=== PATIENT | male | born 1965 | race Caucasian/White ===

== ENCOUNTER 2020-03-05 11:17 | Emergency (ER) | payer MEDICARE, MEDICAID, SELFPAY ==
[2020-03-05 11:40] VITALS: BP 127/87; BP 130/90; PULSE 82; PULSE 88; RESP 18; TEMP 37.2; O2SAT 16; O2SAT 98; BMI 24.4
--- NOTE | 2020-03-05 11:59 | ED_ITS ---
HPI - Abdominal Pain General Chief Complaint: Abdominal Pain Stated Complaint: LUQ PAIN SINCE LAST NIGHT Time Seen by Provider: 03/05/20 11:57 Source: patient Mode of arrival: ambulatory History of Present Illness HPI narrative: 54 y/o male with history of of BPH s/p laser ablation in the past presenting with recurrent urinary retention Here for similar complaints 03/03 and 02/27 and required straight cath. Seen by Urology on Monday - had 300 cc in his bladder. Started on Flomax MD elicited complaint: abdominal pain Onset (ago): day(s) Related Data Allergies Allergy/AdvReac Type Severity Reaction Status Date / Time No Known Allergies Allergy Unknown UNKNOWN Unverified 02/20/20 15:14 [NO KNOWN ALLERGIES] Hayfebrol Allergy Unknown Uncoded 01/28/20 00:00 unsure of seafood allergy Allergy Unknown Uncoded 01/28/20 00:00 Review of Systems Constitutional: Denies fever(s) Genitourinary: Reports oliguria, Reports difficulty urinating, Denies genital lesions, Denies genital pain, Denies dysuria and Denies flank pain Physical Exam Vital Signs and I&O and Narrative: Vital Signs and I&O: Vital Signs Temp 98.9 F 03/05/20 11:40 Pulse 82 03/05/20 11:40 Resp 18 03/05/20 11:40 BP 127/87 03/05/20 11:40 Pulse Ox 98 03/05/20 11:40 Intake & Output 03/04/20 03/05/20 03/05/20 18:59 06:59 18:59 Weight 72.91 kg Body Mass Index 24.4 Const: General: cooperative, healthy appearing and anxious Nutritional Appearance: average body habitus HENMT: Head: Yes normal to inspection Ears: hearing grossly normal bilaterally Eyes: General: appearance normal, both eyes and all related structures Resp: Auscultation: clear to auscultation bilaterally Cardio: Rate: regular rate Rhythm: regular rhythm GI: Inspection: Yes normal to inspection Palpation (GI): Soft to palpation and Tenderness to palpation present (GI) suprapubicly Auscultation: normal bowel sounds Rectal Exam - Male: Yes deferred : Male General Exam: Yes normal external exam Course Course Hospital Course: bladder scan performed and was 367cc. he reports he no longer has straight cath equiptment at home. will d/w case management Reevaluation(s) Reevaluation #1: Patient able to void on his own. UA pending. Case management reviewed the case and spoke with Urology & staff at [facility] - patient does in fact have self-catheterization supplies at home. He reports the catheters are too small. CM arranged to have several different catheters delivered tomorrow. Time: 13:57 Reevaluation #2: UA negative. Stable for d/c. Time: 14:41 MDM - Abdominal Pain MDM Narrative Medical decision making narrative: known urinary retention, will r/o UTI with UA. psych meds likely contributing to retention as well Medical Records Attestation: I reviewed the patient's medical records. Lab Data Labs: Lab Results 03/05/20 Range/Units 13:37 Urine Color YELLOW Urine Appearance CLEAR Urine pH 7.0 (5.0-8.0) Ur Specific [place] 1.015 (1.005-1.025) Urine Protein NEG (NEG-TRACE) MG/DL Urine Glucose (UA) NEG (NEG) MG/DL Urine Ketones NEG (NEG) MG/DL Urine Blood NEG (NEG) Urine Nitrite NEG (NEG) Ur Leukocyte Esterase NEG (NEG) Discharge Plan Discharge Clinical Impression: Benign prostatic hyperplasia with urinary retention Patient Disposition: Home, Self-Care Instructions: Urinary Retention in Men (ED), Enlarged Prostate (BPH) (ED) Additional Instructions: Follow up with your Urologist Continue taking Flomax each evening. [facility] Past Medical History Attestation statement: The following information was validated with the patient. Medical History Anxiety Bipolar 1 disorder Enlarged prostate Mood disorder Right knee injury Thought disorder Social History Social History Alcohol intake: never Smoking Status: Light tobacco smoker Use of substances other than those prescribed or required for medical reasons: No Advance Directives: No Advance Directives Information Provided: Yes
[2020-03-05] MEDS: Lidocaine HCl Viscous 2 % 15 ML SOLUTION MUCOUS MEM (12:58)
[2020-03-05] MEDS: Magnesium Hydrox/Alum Hydrox 30 ML ORAL.SUSP PO (12:58)
[2020-03-05] MEDS: Omeprazole 40 MG CAPSULE.DR PO (12:58)
--- NOTE | 2020-03-05 13:59 | MHC.CM.ED ---
Recevied case management consult from [facility] Guido. Patient is from a detention. Came to ER due to abd pain. Has a history of urinary retention. Told provider he has no catheters at home. T/W spoke with Nori at the detention via telephone at [phone]. Nori stated patient states the catheters he has are too small. They have not been able to reach out to supply company to get this fixed. T/w spoke with Bessie at Urology office. Patient's last documented catheter company was [employer]. Spoke with Juan, one of their customer services reps. Juan stated patient's case was closed in August. However, she is going to overnight mail some supply samples to see which product works best for him. Their company will also follow up with patient tomorrow. Lata aware. Continue to monitor for d/c needs.
[2020-03-05 14:35] LABS: Glucose Urine UA NEG (NEG); Leukocyte Esterase Urine NEG (NEG); Nitrite Urine NEG (NEG); Specific Gravity - Urine 1.015 (1.005-1.025); Urine Blood NEG (NEG); Urine Ketones NEG (NEG); Urine Protein NEG (NEG-TRACE)
[2020-03-05 14:37] LABS: Appearance Urine CLEAR; Color Urine YELLOW
== END 2020-03-05 15:03 | disposition left against medical advice (07) ==
PROVIDERS: Physician Assistant; Emergency Provider Emergency Medicine; PCP Internal Medicine
DX: N40.1 Benign prostatic hyperplasia with lower urinary tract symptoms (principal); R33.8 Other retention of urine; Z79.899 Other long term (current) drug therapy
CPT/HCPCS: 51798; 81003; 99284

== ENCOUNTER 2020-03-09 01:20 | Emergency (ER) | payer MEDICARE, MEDICAID, SELFPAY ==
[2020-03-09 01:25] VITALS: BP 123/84; PULSE 84; RESP 16; TEMP 36.7; O2SAT 97; BMI 25.0
--- NOTE | 2020-03-09 02:13 | ED.MALEGU ---
HPI - Male Genitourinary General Chief complaint: Urogenital-Male Stated complaint: URINARY PROBLEM Time Seen by Provider: 03/09/20 01:49 Source: patient History of Present Illness HPI Narrative: This is a 54-year-old male who presents with urinary retention, chronically, but states that he ran out of his catheters which he will not get until tomorrow. He states he last voided earlier in the evening. Otherwise, he denies any fevers, chills, nausea, vomiting. Related Data Allergies Allergy/AdvReac Type Severity Reaction Status Date / Time No Known Allergies Allergy Unknown UNKNOWN Unverified 02/20/20 15:14 [NO KNOWN ALLERGIES] Hayfebrol Allergy Unknown Uncoded 01/28/20 00:00 unsure of seafood allergy Allergy Unknown Uncoded 01/28/20 00:00 Review of Systems Review of Systems: Pertinent positives and negatives as stated in HPI 10 point review of systems otherwise negative. PMFSH Past Medical History Source: nursing notes reviewed Medical History Anxiety Bipolar 1 disorder Enlarged prostate Mood disorder Right knee injury Thought disorder Social History Social History Alcohol intake: never Smoking Status: Current every day smoker Use of substances other than those prescribed or required for medical reasons: No Advance Directives: No Physical Exam Vital Signs and I&O and Narrative: Vital Signs and I&O: Vital Signs Temp 98.0 F 03/09/20 01:25 Pulse 84 03/09/20 01:25 Resp 18 03/09/20 02:18 BP 128/81 03/09/20 02:18 Pulse Ox 97 03/09/20 02:18 Intake & Output 03/08/20 03/08/20 03/09/20 06:59 18:59 06:59 Weight 74.843 kg Body Mass Index 25.0 VITAL SIGNS: Reviewed. GENERAL: Well developed, well nourished, in no acute distress. HEAD: Normocephalic/atraumatic, Posterior oropharynx was without edema, erythema or exudate. EYES: PERRLA, Pupils <>, EOMI intact without pain, no nystagmus/pallor/icterus noted EARS: Ext canals without abnormality, TMs non-bulging and non-erythematous NOSE: Nares patent bilateral OROPHARYNX: no oral lesions noted, posterior pharynx clear and non-erythematous without noted tonsillar enlargement/erythema/exudates NECK: Supple, no adenopathy LUNGS: Normal breath sounds. No adventitious sounds or accessory muscle use. SpO2<> CARDIOVASCULAR: Regular rate and rhythm without noted murmurs, no JVD or lower extremity edema. ABDOMEN: Soft, non-tender, non-distended with bowel sounds. No rigidity. No guarding. No palpable masses or hernias noted MUSCULOSKELETAL: No tenderness, deformities, or effusions noted on gross inspection. EXTREMITIES: No cyanosis, clubbing or edema. SKIN: Inspection of the skin reveals no rashes, ulcerations, jaundice, pallor, or petechiae. NEUROLOGIC: Alert and oriented x 3. Strength and sensation to light touch were grossly intact x 4. Course Course Hospital Course: This is a 54-year-old male with history and clinical presentation consistent with chronic urinary retention and currently being followed by Urology. Patient ran out of his catheters and on bladder scan is noted to have almost 600 cc and was successfully straight cathed with resolution of symptoms. Patient states he will be getting his replacement catheters tomorrow and has a follow-up appointment with Urology. [facility] - Male Genitourinary Lab Data Labs: Lab Results 03/09/20 Range/Units 02:47 Urine Color YELLOW Urine Appearance CLEAR Urine pH 7.5 (5.0-8.0) Ur Specific [place] 1.015 (1.005-1.025) Urine Protein NEG (NEG-TRACE) MG/DL Urine Glucose (UA) NEG (NEG) MG/DL Urine Ketones NEG (NEG) MG/DL Urine Blood NEG (NEG) Urine Nitrite NEG (NEG) Ur Leukocyte Esterase NEG (NEG) Discharge Plan Discharge Clinical Impression: Acute urinary retention Patient Disposition: Home, Self-Care Instructions: Enlarged Prostate (BPH) (ED), Urinary Retention in Men (ED) Additional Instructions: 1. resume all home medications as prescribed. 2. continue to self catheter as is routine for you. 3. follow-up with urology as scheduled. The patient and/or family acknowledge understanding of results (as applicable), diagnosis, treatment plan, need for follow up, and symptoms that should prompt a return to the emergency room. Referrals: Dk Rodriguez MD [Primary Care Provider] - 2 days (Further evaluation of urinary retention)
[2020-03-09 02:18] VITALS: BP 128/81; RESP 18; O2SAT 97
--- NOTE | 2020-03-09 02:27 | PC.NURSE ---
PT ARRIVES A&OX3, PT ALERT, RESPIRATIONS EASY, N/L. SKIN W/D. PT C/O IM UNABLE TO CATH HIMSELF D/T RUNNING OUT OF SELF-CATH KITS WHICH WILL ARRIVE TOMORROW. IN ROOM FOR EVAL. BLADDER SCAN RESULTED APPROX 600ML OF URINE IN BLADDER.
--- NOTE | 2020-03-09 02:59 | PC.NURSE ---
pt states im scared to do by myself i might hurt myself. Pt tolerated straight cath well. approx 600ML CLEAR YELLOW URINE IN URINE BAG. PT GETTING DRESSED. PT DENIES ANY COMPLAINTS AT THIS TIME. WILL CONTINUE TO MONITOR PT.
[2020-03-09 03:04] LABS: Glucose Urine UA NEG (NEG); Leukocyte Esterase Urine NEG (NEG); Nitrite Urine NEG (NEG); PH 7.5 (5.0-8.0); Specific Gravity - Urine 1.015 (1.005-1.025); Urine Blood NEG (NEG); Urine Ketones NEG (NEG); Urine Protein NEG (NEG-TRACE)
[2020-03-09 03:05] LABS: Appearance Urine CLEAR; Color Urine YELLOW; UACC Culture Trigger NO
== END 2020-03-09 04:08 | disposition home or self-care (01) ==
PROVIDERS: Emergency Provider Student in an Organized Health Care Education/Training Program; PCP Internal Medicine
DX: R33.9 Retention of urine, unspecified (principal); F17.200 Nicotine dependence, unspecified, uncomplicated; Z71.6 Tobacco abuse counseling; Z79.899 Other long term (current) drug therapy
CPT/HCPCS: 51798; 81003; 99283; 99284

== ENCOUNTER → 2020-03-17 14:29 | Outpatient (BNVA) | payer MEDICARE, MEDICAID, SELFPAY | PROVIDERS: PCP Internal Medicine; Visit Provider Urology | DX: N40.1 Benign prostatic hyperplasia with lower urinary tract symptoms (principal); N13.8 Other obstructive and reflux uropathy; R33.8 Other retention of urine; N31.9 Neuromuscular dysfunction of bladder, unspecified; Z79.899 Other long term (current) drug therapy | CPT/HCPCS: 51798; 99213 ==

== ENCOUNTER 2020-03-18 20:26 | Emergency (ER) | payer MEDICARE, MEDICAID, SELFPAY | END 2020-03-18 22:30 | disposition left against medical advice (07) | PROVIDERS: Emergency Provider Internal Medicine; PCP Internal Medicine | DX: F43.0 Acute stress reaction (principal) | CPT/HCPCS: 99281 ==

== ENCOUNTER 2020-03-19 10:52 | Emergency (ER) | payer MEDICARE, MEDICAID, SELFPAY ==
[2020-03-19 10:56] VITALS: BP 117/76; BP 124/86; PULSE 75; PULSE 81; RESP 20; TEMP 37; O2SAT 96; O2SAT 98; BMI 24.4
[2020-03-19 12:52] LABS: Hematocrit 41.2 % (42-52); Hemoglobin 13.9 g/dl (14.0-18.0); Mean Corpuscular HGB Conc 33.7 g/dl (31.0-36.0); Mean Corpuscular Hemoglobin 31.8 pg (27.0-33.0); Mean Corpuscular Volume 94.3 fL (80-98); Mean Platelet Volume 8.8 fL (9.4-12.4); Platelet Count 204 X10*3/uL (160-400); Red Blood Count 4.37 X10*6/uL (4.60-5.80); Red Cell Distribution Width 12.8 % (11.0-16.0)
[2020-03-19 12:59] LABS: Glucose Urine UA NEG (NEG); Leukocyte Esterase Urine NEG (NEG); Nitrite Urine NEG (NEG); PH 6.5 (5.0-8.0); Urine Blood NEG (NEG); Urine Ketones NEG (NEG); Urine Protein NEG (NEG-TRACE)
[2020-03-19 13:01] LABS: Appearance Urine CLEAR; Color Urine YELLOW
[2020-03-19 13:10] VITALS: BP 121/78; PULSE 70; RESP 18; TEMP 36.4; O2SAT 100
[2020-03-19 13:19] LABS: Anion Gap 10 (12-20); Blood Urea Nitrogen 13 mg/dL (9-16); Carbon Dioxide 28 mmol/L (22-29); Chloride 103 mmol/L (96-108); Creatinine Clr Calc Pharmacy 106.1; Estimated Glomerular Filt Rate > 60; Glucose Random 104 mg/dL (60-115); Sodium 136 mmol/L (135-145)
--- NOTE | 2020-03-19 13:46 | ED_ITS ---
HPI - General Adult General Chief complaint: General Medical Stated complaint: CRISIS Time Seen by Provider: 03/19/20 12:02 Source: patient Mode of arrival: ambulatory History of Present Illness HPI narrative: unable to urinate probably, patient has a chronic history of prostate enlargement, patient has been having self-catheterization patient think that he has a wrong size catheterization, did not catheterized himself today feeling distension of the abdomen. Patient is asking for Santos. Onset (ago): day(s) (2) Related Data Allergies Allergy/AdvReac Type Severity Reaction Status Date / Time No Known Allergies Allergy Unknown UNKNOWN Unverified 02/20/20 15:14 [NO KNOWN ALLERGIES] Hayfebrol Allergy Unknown Uncoded 01/28/20 00:00 unsure of seafood allergy Allergy Unknown Uncoded 01/28/20 00:00 Review of Systems Review of Systems: Yes all other systems are reviewed and are negative Constitutional: Constitutional: Reports as per HPI Eyes: Eyes: Reports no additional eye complaints ENT: Reports system reviewed and no additional complaints, except as documented Cardiovascular: Cardiovascular: Reports no additional cardiovascular complaints Respiratory: Respiratory: Reports no additional respiratory complaints Gastrointestinal: Gastrointestinal: Reports no additional gastrointestinal complaints Genitourinary: Genitourinary: Reports difficulty urinating Musculoskeletal: Musculoskeletal: Reports no additional musculoskeletal c omplaints Neurologic: Reports system reviewed and no additional complaints, except as documented and Reports Abnormal speech present Psychiatric: Psychiatric: Reports no additional psychiatric complaints Endocrine: Endocrine: Reports no additional endocrine complaints COUNT INCLUDES THE [facility] Past Medical History COUNT INCLUDES THE [facility] Narrative: Unremarkable. Medical History Anxiety Bipolar 1 disorder Enlarged prostate Mood disorder Right knee injury Thought disorder Social History Social History Alcohol intake: never Smoking Status: Current every day smoker Smoked in Last 30 Days: Yes Use of substances other than those prescribed or required for medical reasons: No Advance Directives: No Advance Directives Information Provided: No Physical Exam Vital Signs: Vital Signs: Vital Signs Temp Pulse Resp BP Pulse Ox 03/19/20 13:10 97.5 F 70 18 121/78 100 03/19/20 10:56 98.6 F 75 20 117/76 96 Body Mass Index 24.4 Const: General: cooperative, healthy appearing and no acute distress Orientation/consciousness: oriented to person HENMT: Head: Yes normal to inspection Ears: hearing grossly normal bilaterally General nose exam: Normal external nose present Face and sinus: Yes normal facial exam Mouth: Normal oral and palatal mucosa present Eyes: General: appearance normal, both eyes and all related structures Neck: Neck: Yes normal visual inspection Chest: Chest palpation & inspection: normal inspection of the chest Resp: Effort & Inspection: normal respiratory effort Cardio: Jugular venous distension: no JVD GI: Palpation (GI): Soft to palpation, not firm, nontender and no guarding Back/Spine/Pelvis: Thoracic/Lumbar Spine: thoracic and lumbar spine normal to inspection Skin: General skin exam: no rashes or lesions noted Neuro: General: oriented to person Cranial nerves: Yes CN's II-XII intact bilaterally Cognition (Neuro): normal cognition Speech: Abnormal speech present Gait exam (Neuro): Normal gait present Motor exam (neuro): 5/5 motor strength present throughout Extrem: General: Yes normal to inspection Course Course Course Narrative: 54-year-old male with prostate enlargement, with chronic self-catheterization, presented today unable to catheterize himself because he has the wrong size self catheter, patient is asking for Santos catheter go home with. Santos catheter was placed in the emergency department, earlier of clear jaylan yellow urine was drained. Reevaluation(s) Reevaluation #1: Patient was re-evaluated, feeling better, no abdominal distension. Time: 13:58 Medical Decision Making Lab Data Result diagrams: 03/19/20 12:43 03/19/20 12:43 Labs: Lab Results 03/19/20 03/19/20 03/19/20 Range/Units 12:43 12:43 12:43 WBC 6.0 (4.8-10.8) X10*3/uL RBC 4.37 L (4.60-5.80) X10*6/uL Hgb 13.9 L (14.0-18.0) g/dl Hct 41.2 L (42-52) % MCV 94.3 (80-98) fL MCH 31.8 (27.0-33.0) pg MCHC 33.7 (31.0-36.0) g/dl RDW 12.8 (11.0-16.0) % Plt Count 204 (160-400) X10*3/uL MPV 8.8 L (9.4-12.4) fL Absolute Nucleated RBC 0.000 (0.0-0.012) X10*3/uL Nucleated RBC % (auto) 0.0 (0.0-0.2) /100WBC Sodium 136 (135-145) mmol/L Potassium 5.0 (3.3-5.1) mmol/l Chloride 103 (96-108) mmol/L Carbon Dioxide 28 (22-29) mmol/L Anion Gap 10 L (12-20) BUN 13 (9-16) mg/dL Creatinine 0.77 (0.5-1.4) mg/dL Estim Creat Clear Calc 106.1 Estimated GFR > 60 Random Glucose 104 (60-115) mg/dL Calcium 9.0 (8.4-10.2) mg/dL Urine Color YELLOW Urine Appearance CLEAR Urine pH 6.5 (5.0-8.0) Ur Specific [place] 1.010 (1.005-1.025) Urine Protein NEG (NEG-TRACE) MG/DL Urine Glucose (UA) NEG (NEG) MG/DL Urine Ketones NEG (NEG) MG/DL Urine Blood NEG (NEG) Urine Nitrite NEG (NEG) Ur Leukocyte Esterase NEG (NEG) Discharge Plan Discharge Clinical Impression: Neurogenic bladder, BPH with obstruction/lower urinary tract symptoms Patient Disposition: Home, Self-Care Instructions: Urinary Retention in Men (ED) Referrals: Lex Sánchez III, MD [Physician] - 1 week
== END 2020-03-19 14:07 | disposition home or self-care (01) ==
PROVIDERS: Emergency Provider Emergency Medicine
DX: N31.9 Neuromuscular dysfunction of bladder, unspecified (principal); N40.1 Benign prostatic hyperplasia with lower urinary tract symptoms; N13.8 Other obstructive and reflux uropathy; F17.200 Nicotine dependence, unspecified, uncomplicated; Z71.6 Tobacco abuse counseling
CPT/HCPCS: 36415; 80048; 81003; 85027; 99284

== ENCOUNTER 2020-03-19 20:56 | Emergency (ER) | payer MEDICARE, MEDICAID, SELFPAY ==
[2020-03-19 21:07] VITALS: BP 128/86; PULSE 88; RESP 16; TEMP 37.1; O2SAT 97; BMI 24.3
[2020-03-19 22:00] VITALS: BP 129/88; PULSE 75; RESP 16; TEMP 36.8; O2SAT 99
--- NOTE | 2020-03-19 22:07 | ED_ITS ---
HPI - Male Genitourinary General Chief complaint: Urogenital-Male Stated complaint: CATHETER REMOVAL Time Seen by Provider: 03/19/20 22:07 Source: patient Mode of arrival: ambulatory Limitations: no limitations History of Present Illness HPI Narrative: Patient had a schafer placed earlier because his bladder is dilated. patient has been self catheterize for 5 years Onset (ago): year(s) Related Data Allergies Allergy/AdvReac Type Severity Reaction Status Date / Time No Known Allergies Allergy Unknown UNKNOWN Unverified 02/20/20 15:14 [NO KNOWN ALLERGIES] Hayfebrol Allergy Unknown Uncoded 01/28/20 00:00 unsure of seafood allergy Allergy Unknown Uncoded 01/28/20 00:00 Review of Systems Constitutional: Constitutional: Reports no additional constitutional complaints Eyes: Eyes: Reports no additional eye complaints ENT: Denies dizziness Cardiovascular: Cardiovascular: Reports no additional cardiovascular complaints Respiratory: Respiratory: Reports as per HPI Gastrointestinal: Gastrointestinal: Reports no additional gastrointestinal complaints Genitourinary: Comments: chronic bladder problems Musculoskeletal: Musculoskeletal: Reports no additional musculoskeletal complaints Integumentary/Breasts: Skin/Breast: Denies rash Neurologic: Reports system reviewed and no additional complaints, except as documented, Denies dizziness and Denies Sensory deficit (Neuro) Psychiatric: Psychiatric: Denies anxiety PMFSH Past Medical History Medical History Anxiety Bipolar 1 disorder Enlarged prostate Mood disorder Right knee injury Thought disorder Social History Social History Alcohol intake: never Smoking Status: Current every day smoker Advance Directives: No Advance Directives Information Provided: Yes Physical Exam Vital Signs: Vital Signs: Vital Signs Temp Pulse Resp BP Pulse Ox 03/19/20 21:07 98.8 F 88 16 128/86 97 Body Mass Index 24.3 Const: General: healthy appearing Nutritional Appearance: average body gaxiola bitus Orientation/consciousness: oriented to person and patient oriented x3 Limitations: no limitations HENMT: Head: Yes normal to inspection Ears: external ears normal General nose exam: Normal external nose present Mouth: Normal oral and palatal mucosa present and oropharynx normal Throat: Yes posterior oropharynx normal Eyes: General: appearance normal, both eyes and all related structures Neck: Other: supple Neck: Yes normal visual inspection Chest: Chest palpation & inspection: normal inspection of the chest Resp: Auscultation: clear to auscultation bilaterally Cardio: Jugular venous distension: no JVD Rate: regular rate Rhythm: regular rhythm Heart sounds: S1 normal heart sound present and S2 normal heart sound present GI: Inspection: Yes normal to inspection Palpation (GI): Soft to palpation, nontender and No hepatosplenomegaly present Auscultation: normal bowel sounds : Other: patient with schafer in place wants it removed General: Yes no CVA tenderness Back/Spine/Pelvis: Back: no CVA tenderness Skin: General skin exam: no rashes or lesions noted Neuro: General: oriented to person and patient oriented x3 Cranial nerves: Yes CN's II-XII intact bilaterally Motor exam (neuro): 5/5 motor strength present throughout Sensory Exam: No Sensory deficit (Neuro) Extrem: General: Yes normal to inspection Psych: Appearance: grossly normal Course Course Course Narrative: patient wants his catheter removed Discharge Plan Discharge Clinical Impression: BPH with obstruction/lower urinary tract symptoms Patient Disposition: Home, Self-Care Additional Instructions: May start self catheterizing Referrals: Dk Rodriguez MD [Primary Care Provider] - 2 days
--- NOTE | 2020-03-19 22:53 | PC.NURSE ---
LEG BAG REMOVED FROM PATIENT BY THIS PCT PER RN EVA ,OUT PUT 700 ML
--- NOTE | 2020-03-19 22:56 | PC.NURSE ---
MASON REMOVED. PT TOLERATED WELL. VITALS WNL./ DC
== END 2020-03-19 22:56 | disposition home or self-care (01) ==
PROVIDERS: Emergency Provider Emergency Medicine; PCP Internal Medicine
DX: N40.1 Benign prostatic hyperplasia with lower urinary tract symptoms (principal); Z46.6 Encounter for fitting and adjustment of urinary device
CPT/HCPCS: 36415; 80048; 81003; 85027; 99283; 99284

== ENCOUNTER 2020-03-23 21:52 | Emergency (ER) | payer MEDICARE, MEDICAID, SELFPAY ==
[2020-03-23 21:55] VITALS: BP 124/74; PULSE 94; RESP 20; TEMP 37.3; O2SAT 97; BMI 24.3
--- NOTE | 2020-03-23 22:28 | ED.MALEGU ---
HPI - Male Genitourinary General Chief complaint: Urogenital-Male Stated complaint: cath problem Time Seen by Provider: 03/23/20 22:11 Source: patient Mode of arrival: ambulatory Limitations: no limitations History of Present Illness HPI Narrative: This is a 54-year-old male who presents with complaints not receiving his regularly scheduled catheters for use in self catheterization. He comes in for requesting assistance with this and denies any associated fevers, chills, nausea, vomiting, penile discharge. Related Data Allergies Allergy/AdvReac Type Severity Reaction Status Date / Time No Known Allergies Allergy Unknown UNKNOWN Unverified 02/20/20 15:14 [NO KNOWN ALLERGIES] Hayfebrol Allergy Unknown Uncoded 01/28/20 00:00 unsure of seafood allergy Allergy Unknown Uncoded 01/28/20 00:00 Review of Systems Review of Systems: Pertinent positives and negatives as stated in HPI 10 point review of systems is otherwise negative. PMFSH Past Medical History Source: nursing notes reviewed Medical History Anxiety Bipolar 1 disorder Enlarged prostate Mood disorder Right knee injury Thought disorder Social History Social History Alcohol intake: never Smoking Status: Current every day smoker Advance Directives: No Advance Directives Information Provided: Yes Physical Exam Vital Signs: Vital Signs: Vital Signs Temp Pulse Resp BP Pulse Ox 03/23/20 21:55 99.1 F 94 20 124/74 97 Body Mass Index 24.3 VITAL SIGNS: Reviewed. GENERAL: Well developed, well nourished, in no acute distress. HEAD: Normocephalic/atraumatic, EYES: PERRLA, EOMI intact without pain, no nystagmus/pallor/icterus noted EARS: Ext canals without abnormality, TMs non-bulging and non-erythematous NOSE: Nares patent bilateral OROPHARYNX: no oral lesions noted, posterior pharynx clear and non-erythematous without noted tonsillar enlargement/erythema/exudates NECK: Supple, no adenopathy LUNGS: Normal breath sounds. No adventitious sounds or accessory muscle use. SpO2<97%> CARDIOVASCULAR: Regular rate and rhythm without noted murmurs, no JVD or lower extremity edema. ABDOMEN: Soft, non-tender, non-distended with bowel sounds. No rigidity. No guarding. No palpable masses or hernias noted MUSCULOSKELETAL: No tenderness, deformities, or effusions noted on gross inspection. EXTREMITIES: No cyanosis, clubbing or edema. SKIN: Inspection of the skin reveals no rashes, ulcerations, jaundice, pallor, or petechiae. NEUROLOGIC: Alert and oriented x 4. Strength and sensation to light touch were grossly intact x 4. Course Course Course Narrative: This is a 54-year-old male with history and clinical presentation consistent with having run out of necessary equipment for self catheterization and on bladder scan was found to have 170 cc which is safe for discharge. Patient will be provided with necessary catheters until his arrive tomorrow. This was discussed with him at bedside and he is agreeable for the following plan Discharge Plan Discharge Clinical Impression: Neurogenic bladder Patient Disposition: Home, Self-Care Instructions: Urinary Retention in Men (ED), Enlarged Prostate (BPH) (ED) Additional Instructions: The patient and/or family acknowledge understanding of results (as applicable), diagnosis, treatment plan, need for follow up, and symptoms that should prompt a return to the emergency room. Referrals: Physician,Unknown [Primary Care Provider] - 2 days
== END 2020-03-23 23:14 | disposition home or self-care (01) ==
PROVIDERS: Emergency Provider Student in an Organized Health Care Education/Training Program
DX: N31.9 Neuromuscular dysfunction of bladder, unspecified (principal)
CPT/HCPCS: 51798; 99283

== ENCOUNTER 2020-03-28 02:16 | Emergency (ER) | payer MEDICARE, MEDICAID, SELFPAY ==
[2020-03-28 02:26] VITALS: BP 107/68; PULSE 75; RESP 18; TEMP 36; O2SAT 96; BMI 24.0
[2020-03-28 04:17] VITALS: BP 110/65; PULSE 70; RESP 16; TEMP 36.8; O2SAT 96
--- NOTE | 2020-03-28 04:25 | ED_ITS ---
HPI - Anxiety General Chief Complaint: Anxiety Stated Complaint: ANXIETY Time Seen by Provider: 03/28/20 03:43 Source: patient Mode of arrival: ambulatory Limitations: no limitations History of Present Illness HPI narrative: this is a 54-year-old male well known to our ED staff, patient has a long history of anxiety disorder, patient had verbal argument with the housing staff so patient decided to come to the hospital. Patient declined any SI or HI or hallucination at this point. MD complaint: anxiety Related Data Previous Rx's Medication Instructions Recorded bethanechol chloride 50 mg tablet 50 mg PO TID 30 Days #90 tab 03/27/20 Allergies Allergy/AdvReac Type Severity Reaction Status Date / Time No Known Allergies Allergy Unknown UNKNOWN Unverified 02/20/20 15:14 [NO KNOWN ALLERGIES] Hayfebrol Allergy Unknown Uncoded 01/28/20 00:00 unsure of seafood allergy Allergy Unknown Uncoded 01/28/20 00:00 Review of Systems Review of Systems: All other systems are reviewed and are negative Constitutional: Reports as per HPI and Reports no additional constitutional complaints Eyes: Reports as per HPI and Reports no additional eye complaints Reports system reviewed and no additional complaints, except as documented Cardiovascular: Reports as per HPI and Reports no additional cardiovascular complaints Respiratory: Reports as per HPI and Reports no additional respiratory complaints Gastrointestinal: Reports as per HPI and Reports no additional gastrointestinal complaints Genitourinary: Reports no additional female genitourinary complaints Musculoskeletal: Reports no additional musculoskeletal complaints Skin/Breast: Reports system reviewed and no additional complaints, except as docu Psychiatric: Reports no additional psychiatric complaints Endocrine: Reports no additional endocrine complaints Hematologic/Lymphatic: Reports no additional hematologic/lymphatic complaints Allergic/Immunologic: Reports no additional allergic/immunologic complaints Reports system reviewed and no additional complaints, except as documented and Reports Abnormal speech present [facility] Past Medical History Medical History Anxiety Bipolar 1 disorder Enlarged prostate Mood disorder Right knee injury Thought disorder Social History Social History Alcohol intake: never Smoking Status: Current every day smoker Advance Directives: No Advance Directives Information Provided: No Physical Exam Vital Signs: Vital Signs: Vital Signs Temp Pulse Resp BP Pulse Ox 03/28/20 04:17 98.3 F 70 16 110/65 96 03/28/20 02:26 96.8 F 75 18 107/68 96 Body Mass Index 24.0 vital signs have been reviewed as normal and appeared to be correct. Blood pressure normal. Heart rate normal. Respiration rate normal. Temperature normal. Oxygen saturation normal. Appearance: Alert. Oriented X3. No acute distress. Head: Normal external exam. Normocephalic. Atraumatic. No Villeda signs noted. No raccoon eyes noted Eyes: PERRLA. EOMI. Conjunctiva and sclera normal. Eyelids normal. ENT: EAC normal. TM's Normal. Pharynx normal. Uvula midline. Moist mucous membranes. No trismus noted. No drooling noted. No muffled voice noted. Neck: Normal inspection. Neck supple. FROM. No adenopathy. Thyroid Normal. No meningeal signs. No neck mass noted. CVS: Normal heart rate and rhythm. Heart sound normal. No murmurs noted. Pulses normal throughout. Respiratory: No respiratory distress. Painless inspiration. Breath sounds normal. No wheezes/rales/rhonchi noted. Chest nontender. No accessory muscle usage noted or decreased air movement noted. Abdomen: Soft and nontender. Bowel sounds normal in all 4 quadrants. No distention noted. No organomegaly noted. No visible injury noted. Back: No CVA tenderness. Full range of motion noted. Skin: Skin warm and dry. Normal skin color. Normal skin turgor. No rashes/lesions/lacerations noted. Extremities: No lower extremity edema. Extremities exhibit normal range of motion. Extremities nontender. Neuro: Oriented X 3. No motor deficit. No sensory deficit. Reflexes normal. MDM - Anxiety MDM Narrative Medical decision making narrative: Assessment and plan. This is a 54-year-old male with history of anxiety presented with anxiety, patient now with calm, and stable to be discharged home. Discharge Plan Discharge Clinical Impression: Anxiety Patient Disposition: Home, Self-Care Instructions: Anxiety (ED) Prescriptions: No Action bethanechol chloride 50 mg tablet 50 mg PO TID 30 Days Qty: 90 RF: 1 Referrals: Dk Rodriguez MD [Primary Care Provider] - 2 days
== END 2020-03-28 06:05 | disposition home or self-care (01) ==
PROVIDERS: Emergency Provider Emergency Medicine; PCP Internal Medicine
DX: F41.1 Generalized anxiety disorder (principal); F43.0 Acute stress reaction; F17.200 Nicotine dependence, unspecified, uncomplicated; Z71.6 Tobacco abuse counseling; Z79.899 Other long term (current) drug therapy
CPT/HCPCS: 99283

== ENCOUNTER 2020-03-30 13:24 | Outpatient (REF) | payer MEDICARE, MEDICAID, SELFPAY | END 2020-03-30 13:25 | disposition home or self-care (01) | LOC: HO.LAB 13:24 | PROVIDERS: PCP Internal Medicine; Visit Provider Internal Medicine | DX: Z20.828 Contact with and (suspected) exposure to other viral communicable diseases (principal) | CPT/HCPCS: 87635 ==

== ENCOUNTER 2020-04-04 23:17 | Emergency (ER) | payer MEDICARE, MEDICAID, SELFPAY ==
[2020-04-04 23:29] VITALS: BP 150/90; PULSE 91; RESP 16; TEMP 36.8; O2SAT 99; BMI 24.3
--- NOTE | 2020-04-04 23:56 | ED.MALEGU ---
HPI - Male Genitourinary General Chief complaint: General Medical Stated complaint: Problem urinaring Time Seen by Provider: 04/04/20 23:31 Source: patient Mode of arrival: ambulatory Limitations: no limitations History of Present Illness HPI Narrative: This is a 54-year-old male who presents with recurrent issues of urinary retention and currently treats with self catheterization and was recently evaluated by urology on 03/17. At that time it appears that patient was started on bethanechol and instructed to continue self catheterization. The patient denies any associated fevers, chills, but is having suprapubic discomfort and states that his last self catheterization was earlier this morning. Related Data Previous Rx's Medication Instructions Recorded bethanechol chloride 50 mg tablet 50 mg PO TID 30 Days #90 tab 03/27/20 varenicline 1 mg tablet 1 mg PO BID #56 tab 04/03/20 Allergies Allergy/AdvReac Type Severity Reaction Status Date / Time No Known Allergies Allergy Unknown UNKNOWN Verified 04/04/20 23:28 [NO KNOWN ALLERGIES] Hayfebrol Allergy Unknown Unknown Uncoded 04/04/20 23:28 unsure of seafood allergy Allergy Unknown Unknown Uncoded 04/04/20 23:28 Review of Systems Review of Systems: Pertinent positives and negatives as stated in HPI 10 point review of systems is otherwise negative. PMFSH Past Medical History Source: nursing notes reviewed Medical History Anxiety Bipolar 1 disorder Enlarged prostate Mood disorder Right knee injury Thought disorder Social History Social History Alcohol intake: current Alcohol intake frequency: 0-2 drinks per day Alcohol type: beer and wine Smoking Status: Never smoker Use of substances other than those prescribed or required for medical reasons: No Advance Directives: No Physical Exam Vital Signs: Vital Signs: Vital Signs Temp Pulse Resp BP Pulse Ox 04/04/20 23:29 98.3 F 91 16 150/90 H 99 Body Mass Index 24.3 VITAL SIGNS: Reviewed. GENERAL: Well developed, well nourished, in no acute distress. HEAD: Normocephalic/atraumatic, EYES: PERRLA, EOMI intact without pain, no nystagmus/pallor/icterus noted EARS: Ext canals without abnormality, TMs non-bulging and non-erythematous NOSE: Nares patent bilateral OROPHARYNX: no oral lesions noted, posterior pharynx clear and non-erythematous without noted tonsillar enlargement/erythema/exudates NECK: Supple, no adenopathy LUNGS: Normal breath sounds. No adventitious sounds or accessory muscle use. SpO2<99> CARDIOVASCULAR: Regular rate and rhythm without noted murmurs, no JVD or lower extremity edema. ABDOMEN: Soft, non-tender, non-distended with bowel sounds. No rigidity. No guarding. No palpable masses or hernias noted MUSCULOSKELETAL: No tenderness, deformities, or effusions noted on gross inspection. EXTREMITIES: No cyanosis, clubbing or edema. SKIN: Inspection of the skin reveals no rashes, ulcerations, jaundice, pallor, or petechiae. NEUROLOGIC: Alert and oriented x 4. Strength and sensation to light touch were grossly intact x 4. Course Course Course Narrative: This is a 54-year-old male with history and clinical presentation consistent with BPH requiring self catheterization. On bladder scan he was found to have > 999. patient self catheterized and a urine sample will be sent. PVR was then obtained and found to be significant for 100 cc. Plan and findings were discussed with the patient at bedside and he understands that he will need to continue to self catheterize every 6-8 hours while he is awake and follow-up with the Urology office on Monday. Discharge Plan Discharge Clinical Impression: BPH with obstruction/lower urinary tract symptoms, Neurogenic bladder Patient Disposition: Home, Self-Care Instructions: Enlarged Prostate (BPH) (ED) Additional Instructions: 1. Please self catheterize every 6-8 hours while awake. 2. You will need to contact the urology office on Monday to set up a follow-up appointment for persistent symptoms. 3. Continue with all home medications as prescribed The patient and/or family acknowledge understanding of results (as applicable), diagnosis, treatment plan, need for follow up, and symptoms that should prompt a return to the emergency room. Prescriptions: No Action bethanechol chloride 50 mg tablet 50 mg PO TID 30 Days Qty: 90 RF: 1 varenicline [Chantix] 1 mg tablet 1 mg PO BID Qty: 56 RF: 0 Referrals: Dk Rodriguez MD [Primary Care Provider] - 2 days ( needs follow-up for persistent BPH and lower urinary tract problems requiring self catheterization) Lex Sánchez III, MD [Physician] - 2 days ( Patient continues to have significant urinary difficulties and is requesting follow-up appointment.)
--- NOTE | 2020-04-05 00:01 | PC.NURSE ---
Pt bladder scanned for over 999ml per [employer] pt straight cathed self, urine sample collected.
[2020-04-05 00:33] LABS: Glucose Urine UA NEG (NEG); Leukocyte Esterase Urine NEG (NEG); Nitrite Urine NEG (NEG); Specific Gravity - Urine 1.015 (1.005-1.025); Urine Blood NEG (NEG); Urine Ketones NEG (NEG); Urine Protein NEG (NEG-TRACE)
[2020-04-05 00:35] LABS: Appearance Urine CLEAR; Color Urine YELLOW
== END 2020-04-05 00:43 | disposition home or self-care (01) ==
PROVIDERS: Emergency Provider Student in an Organized Health Care Education/Training Program; PCP Internal Medicine
DX: N40.1 Benign prostatic hyperplasia with lower urinary tract symptoms (principal); R33.8 Other retention of urine; N31.9 Neuromuscular dysfunction of bladder, unspecified; Z79.899 Other long term (current) drug therapy
CPT/HCPCS: 51798; 81003; 99283; 99284

== ENCOUNTER 2020-04-08 11:01 | Outpatient (REF) | payer MEDICARE, MEDICAID, SELFPAY ==
[2020-04-08 11:52] LABS: MANUAL DIFF FLAG NO
[2020-04-08 11:54] LABS: Basophils Absolute Auto 0.1 X10*3/uL (0.0-0.2); Basophils Percent Auto 0.7 % (0-2); Eosinophils Absolute Auto 0.1 X10*3/uL (0.0-0.4); Eosinophils Percent Auto 0.5 % (0-4); Hematocrit 46.4 % (42-52); Hemoglobin 15.4 g/dl (14.0-18.0); Imm Gran Abs Auto 0.03 X10*3/uL (0.00-0.03); Imm Gran Pct Auto 0.3 % (0.0-0.4); Lymphocytes Absolute Auto 1.7 X10*3/uL (1.2-4.9); Lymphocytes Percent Auto 17.2 % (20-40); Mean Corpuscular HGB Conc 33.2 g/dl (31.0-36.0); Mean Corpuscular Hemoglobin 31.2 pg (27.0-33.0); Mean Corpuscular Volume 94.1 fL (80-98); Mean Platelet Volume 9.2 fL (9.4-12.4); Monocytes Absolute Auto 0.9 X10*3/uL (0.1-1.2); Monocytes Percent Auto 9.3 % (2-11); Neutrophils Absolute Auto 7.2 X10*3/uL (2.0-8.3); Platelet Count 232 X10*3/uL (160-400); Red Blood Count 4.93 X10*6/uL (4.60-5.80)
[2020-04-08 12:25] LABS: Alanine Aminotransferase 31 U/L (0-40); Albumin Level 4.4 g/dL (3.5-5.0); Alkaline Phosphatase 73 U/L (39-117); Anion Gap 13 (12-20); Aspartate Amino Transferase 27 U/L (5-37); Bilirubin Total 0.4 mg/dL (0.0-1.0); Blood Urea Nitrogen 14 mg/dL (9-16); Calcium 9.1 mg/dL (8.4-10.2); Carbon Dioxide 26 mmol/L (22-29); Chloride 103 mmol/L (96-108); Cholesterol 182 mg/dL; Estimated Glomerular Filt Rate > 60; Glucose Fasting 104 mg/dL (60-99); HDL Cholesterol 60 mg/dL; LDL Cholesterol Calculated 110 mg/dl; Potassium 4.8 mmol/l (3.3-5.1); Sodium 137 mmol/L (135-145); Total Protein 7.1 g/dL (6.5-8.0); Triglycerides 61 mg/dL
[2020-04-08 13:08] LABS: Glucose Urine UA NEG (NEG); Leukocyte Esterase Urine NEG (NEG); Nitrite Urine NEG (NEG); Urine Blood NEG (NEG); Urine Ketones NEG (NEG); Urine Protein NEG (NEG-TRACE)
[2020-04-08 13:10] LABS: Appearance Urine CLEAR; Color Urine YELLOW; UACC Culture Trigger NO
[2020-04-08 13:31] LABS: Free T4 (Free Thyroxine) 0.99 ng/dL (0.71-1.85)
== END 2020-04-08 11:02 | disposition home or self-care (01) ==
LOC: HO.LAB 11:01
PROVIDERS: PCP Internal Medicine; Visit Provider Internal Medicine
DX: Z00.00 Encounter for general adult medical examination without abnormal findings (principal); F17.200 Nicotine dependence, unspecified, uncomplicated; N40.1 Benign prostatic hyperplasia with lower urinary tract symptoms; E78.00 Pure hypercholesterolemia, unspecified; N31.9 Neuromuscular dysfunction of bladder, unspecified
CPT/HCPCS: 36415; 80053; 80061; 81003; 84439; 84443; 85025

== ENCOUNTER 2020-04-09 22:24 | Emergency (ER) | payer MEDICARE, MEDICAID, SELFPAY | END 2020-04-09 23:41 | disposition left against medical advice (07) | PROVIDERS: Emergency Provider Student in an Organized Health Care Education/Training Program; PCP Internal Medicine | DX: Z04.9 Encounter for examination and observation for unspecified reason (principal) ==

== ENCOUNTER 2020-04-11 18:23 | Emergency (ER) | payer MEDICARE, MEDICAID, SELFPAY | END 2020-04-11 19:24 | disposition left against medical advice (07) | PROVIDERS: Emergency Provider Emergency Medicine; PCP Internal Medicine | DX: F41.1 Generalized anxiety disorder (principal); F43.0 Acute stress reaction | CPT/HCPCS: 99281 ==

== ENCOUNTER 2020-04-16 12:59 | Emergency (ER) | payer MEDICARE, MEDICAID, SELFPAY ==
[2020-04-16 13:04] VITALS: BP 120/68; BP 138/80; PULSE 81; PULSE 89; RESP 18; TEMP 36.7; O2SAT 96; O2SAT 98; BMI 24.7
[2020-04-16 13:57] LABS: Glucose Urine UA NEG (NEG); Leukocyte Esterase Urine NEG (NEG); Nitrite Urine NEG (NEG); Specific Gravity - Urine 1.015 (1.005-1.025); Urine Blood NEG (NEG); Urine Ketones NEG (NEG); Urine Protein NEG (NEG-TRACE)
[2020-04-16 13:58] LABS: Appearance Urine CLEAR; Color Urine YELLOW
[2020-04-16 14:00] VITALS: BP 116/80; PULSE 78; RESP 16; TEMP 36.7; O2SAT 97
--- NOTE | 2020-04-16 14:44 | ED_ITS ---
HPI - Male Genitourinary General Chief complaint: Urogenital-Male Stated complaint: lower abd/groin pain, difficulty urinating Time Seen by Provider: 04/16/20 13:08 Source: patient Mode of arrival: ambulatory History of Present Illness HPI Narrative: 54-year-old male with a past medical history of anxiety, hypercholesterolemia, schizoaffective, BPH/urinary retention treated with self catheterization at home presenting to ED complaining of retained urine and lower abdominal discomfort. Reports catheterizing at home isn't working, admits to only cathing 1-2x daily due to catheterization discomfort. Reports medications prescribed by his urologist or not working. Denies fever, chills, nausea/vomiting, flank pain, dysuria/hematuria Related Data Home Medications Medication Instructions Recorded Confirmed Lactobacillus acidophilus 100 mg 100 mg PO DAILY 04/08/20 04/12/20 (1 billion cell) capsule aripiprazole 15 mg tablet 15 mg PO DAILY 04/08/20 04/12/20 aripiprazole 2 mg tablet 2 mg PO DAILY 04/08/20 04/12/20 atorvastatin 10 mg tablet 10 mg PO DAILY 04/08/20 04/12/20 diphenhydramine HCl 25 mg capsule 25 mg PO ONCE cap 04/08/20 04/12/20 escitalopram oxalate 10 mg tablet 10 mg PO DAILY 04/08/20 04/12/20 finasteride 5 mg tablet 5 mg PO DAILY 04/08/20 04/12/20 loratadine 10 mg tablet 10 mg PO DAILY 04/08/20 04/12/20 lorazepam 1 mg tablet mg PO 04/08/20 04/12/20 multivitamin-iron 9 mg-folic acid 1 tab PO DAILY 04/08/20 04/12/20 400 mcg-calcium and minerals tablet nitrofurantoin macrocrystal 50 mg 50 mg PO DAILY 04/08/20 04/12/20 capsule olanzapine 5 mg tablet mg PO 04/08/20 04/12/20 tamsulosin 0.4 mg capsule 0.4 mg PO DAILY 04/08/20 04/12/20 tramadol 50 mg tablet mg PO 04/08/20 04/12/20 carbamazepine 200 mg tablet 400 mg PO BID tab 04/12/20 04/12/20 Previous Rx's Medication Instructions Recorded bethanechol chloride 50 mg tablet 50 mg PO TID 30 Days #90 tab 03/27/20 varenicline 1 mg tablet 1 mg PO BID #56 tab 04/03/20 Allergies Allergy/AdvReac Type Severity Reaction Status Date / Time No Known Allergies Allergy Unknown UNKNOWN Verified 04/12/20 16:50 [NO KNOWN ALLERGIES] Review of Systems Review of Systems: Constitutional: No Weight loss, No Fever, No Chills Gastrointestinal: No Nausea, No Vomiting, No Diarrhea, No Constipation, +Abdominal pain Genitourinary: No Dysuria, No Urinary Frequency, No Hematuria, No Urgency, No Flank Pain, +Urinary Flow Changes Skin: No Skin Lesions, No rash Yes all other systems are reviewed and are negative [facility] Past Medical History Attestation statement: The following information was validated with the patient. Medical History (Updated 04/16/20 @ 15:00 by DAMARI Tom) Anxiety Benign prostatic hyperplasia with lower urinary tract symptoms Bipolar 1 disorder Enlarged prostate Mood disorder Pure hypercholesterolemia Right knee injury Schizoaffective disorder, bipolar type Smoker Thought disorder Surgical History (Updated 04/12/20 @ 17:01 by Dk Rodriguez MD) History of open reduction and internal fixation (ORIF) procedure History of prostate surgery (~05/03/19) Family History Family History (Updated 04/12/20 @ 16:56 by Dk Rodriguez MD) Father Lung cancer BPH (benign prostatic hyperplasia) Mother Dementia Brother Myocardial infarction Social History Social History Alcohol intake: current Alcohol intake frequency: 0-2 drinks per day Alcohol type: beer and wine Smoking Status: Current every day smoker Tobacco Type: Cigarette Advance Directives: No Advance Directives Information Provided: No Physical Exam Vital Signs: Vital Signs: Last Vital Signs Temp 98.1 F 04/16/20 14:00 Pulse 78 04/16/20 14:00 Resp 16 04/16/20 14:00 BP 116/80 04/16/20 14:00 Pulse Ox 97 04/16/20 14:00 Body Mass Index 24.7 Const: General: cooperative and healthy appearing Callum entation/consciousness: patient oriented x3 Limitations: no limitations HENMT: Head: Yes normal to inspection Ears: hearing grossly normal bilaterally General nose exam: Normal external nose present Face and sinus: Yes normal facial exam Eyes: General: appearance normal, both eyes and all related structures EOM: EOMs intact bilaterally Neck: Neck: Yes normal visual inspection Resp: Effort & Inspection: normal respiratory effort GI: Inspection: Yes normal to inspection Palpation (GI): Soft to palpation, nontender, no guarding and not rigid : General: Yes no CVA tenderness Back/Spine/Pelvis: Back: no CVA tenderness Skin: Rashes: no rashes Wounds: no wounds Neuro: General: patient oriented x3 Gait exam (Neuro): Normal gait present Extrem: General: Yes normal to inspection Course Course Course Narrative: Mason inserted in the ED. Patient is to follow-up with his urologist within 1 week MDM - Male Genitourinary MDM Narrative Medical decision making narrative: 54-year-old male with a past medical history of anxiety, hypercholesterolemia, schizoaffective, BPH/urinary retention treated with self catheterization at home presenting to ED complaining of retained urine and lower abdominal discomfort. On exam VSS, NAD/well-appearing, bladder scan with >400 cc, patient reports he last self cathed > 2 hours ago. Abdomen is soft/nontender, no CVAT Patient likely retaining due to not self catheterizing often enough. Discussed with patient he needs to cath regularly if he is not able to urinate, and take previously prescribed medications Offered Mason versus straight cath in the ED, patient would like Mason and then follow up with his urologist Plan: Rule out UTI, insert Mason Lab Data Labs: Lab Results 04/16/20 Range/Units 13:38 Urine Color YELLOW Urine Appearance CLEAR Urine pH 6.0 (5.0-8.0) Ur Specific [place] [employer] 1.015 (1.005-1.025) Urine Protein NEG (NEG-TRACE) MG/DL Urine Glucose (UA) NEG (NEG) MG/DL Urine Ketones NEG (NEG) MG/DL Urine Blood NEG (NEG) Urine Nitrite NEG (NEG) Ur Leukocyte Esterase NEG (NEG) Discharge Plan Discharge Clinical Impression: Benign prostatic hyperplasia with urinary retention Patient Disposition: Home, Self-Care Instructions: Mason Catheter Placement and Care (ED) Additional Instructions: CONTINUE TAKING PREVIOUSLY PRESCRIBED MEDICATIONS BY YOUR UROLOGIST STAY HYDRATED AT HOME YOU WERE GIVEN A MASON TODAY IN THE ED, KEEP IT IN UNTIL YOU SEE YOUR UROLOGIST FOLLOW-UP WITH HIM WITHIN 1 WEEK, CALL THE OFFICE TODAY TO MAKE AN APPOINTMENT IF YOUR BAG IS NOT DRAINING, HE DEVELOPED PAIN, BURNING WHEN HE PEED, FEVER, OR BACK PAIN RETURN TO THE ED Prescriptions: No Action bethanechol chloride 50 mg tablet 50 mg PO TID 30 Days Qty: 90 RF: 1 varenicline [Chantix] 1 mg tablet 1 mg PO BID Qty: 56 RF: 0 lorazepam 1 mg tablet PO RF: 0 escitalopram oxalate 10 mg tablet 10 mg PO DAILY RF: 0 atorvastatin 10 mg tablet 10 mg PO DAILY RF: 0 aripiprazole 2 mg tablet 2 mg PO DAILY RF: 0 aripiprazole 15 mg tablet 15 mg PO DAILY RF: 0 finasteride 5 mg tablet 5 mg PO DAILY RF: 0 tamsulosin 0.4 mg capsule 0.4 mg PO DAILY RF: 0 nitrofurantoin macrocrystal 50 mg capsule 50 mg PO DAILY RF: 0 Thera-M 9 mg iron-400 mcg tablet 1 tab PO DAILY RF: 0 Lactobacillus acidophilus 100 mg (1 billion cell) capsule 100 mg PO DAILY RF: 0 olanzapine 5 mg tablet PO RF: 0 tramadol 50 mg tablet PO RF: 0 loratadine [Allergy Relief (loratadine)] 10 mg tablet 10 mg PO DAILY RF: 0 diphenhydramine HCl [Benadryl] 25 mg capsule 25 mg PO ONCE RF: 0 carbamazepine 200 mg tablet 400 mg PO BID RF: 0 Referrals: Lex Sánchez III, MD [Physician] - 5 days
== END 2020-04-16 15:22 | disposition home or self-care (01) ==
PROVIDERS: Physician Assistant; Emergency Provider Emergency Medicine; PCP Internal Medicine
DX: N40.1 Benign prostatic hyperplasia with lower urinary tract symptoms (principal); F41.9 Anxiety disorder, unspecified; F17.210 Nicotine dependence, cigarettes, uncomplicated; Z71.6 Tobacco abuse counseling; Z79.899 Other long term (current) drug therapy
CPT/HCPCS: 81003; 99284

== ENCOUNTER 2020-04-18 22:14 | Emergency (ER) | payer MEDICARE, MEDICAID, SELFPAY ==
[2020-04-18 22:15] VITALS: BP 106/67; PULSE 94; RESP 16; TEMP 35.7; O2SAT 97; BMI 24.8
--- NOTE | 2020-04-18 22:32 | ED_ITS ---
HPI - Male Genitourinary General Chief complaint: Urogenital-Male Stated complaint: Catheter issue Time Seen by Provider: 04/18/20 22:31 Source: patient Mode of arrival: ambulatory Limitations: no limitations History of Present Illness HPI Narrative: 54-year-old male with past medical history of BPH, neurogenic bladder, anxiety, schizoaffective disorder, bipolar disorder presents with Santos catheter complaint. States that he wants his Santos catheter removed because he cannot stand it. Santos was placed 2 days ago for urinary retention. He states that the Santos is ripping him apart, however he does not have any hematuria in his Santos catheter bag. He denies chest pain or pressure, palpitations, shortness of breath, abdominal pain, abdominal distention, dysuria, hematuria, fevers, chills, suicidal ideation, homicidal ideation, and auditory visual hallucinations. Onset (ago): day(s) (2) Duration: constant Location: penis Severity: severe Severity scale (1-10): 10 Quality: aching Relieving factors: none Exacerbating factors: movement Related Data Sexually active: No Home Medications Medication Instructions Recorded Confirmed Lactobacillus acidophilus 100 mg 100 mg PO DAILY 04/08/20 04/12/20 (1 billion cell) capsule aripiprazole 15 mg tablet 15 mg PO DAILY 04/08/20 04/12/20 aripiprazole 2 mg tablet 2 mg PO DAILY 04/08/20 04/12/20 atorvastatin 10 mg tablet 10 mg PO DAILY 04/08/20 04/12/20 diphenhydramine HCl 25 mg capsule 25 mg PO ONCE cap 04/08/20 04/12/20 escitalopram oxalate 10 mg tablet 10 mg PO DAILY 04/08/20 04/12/20 finasteride 5 mg tablet 5 mg PO DAILY 04/08/20 04/12/20 loratadine 10 mg tablet 10 mg PO DAILY 04/08/20 04/12/20 lorazepam 1 mg tablet mg PO 04/08/20 04/12/20 multivitamin-iron 9 mg-folic acid 1 tab PO DAILY 04/08/20 04/12/20 400 mcg-calcium and minerals tablet nitrofurantoin macrocrystal 50 mg 50 mg PO DAILY 04/08/20 04/12/20 capsule olanzapine 5 mg tablet mg PO 04/08/20 04/12/20 tamsulosin 0.4 mg capsule 0.4 mg PO DAILY 04/08/20 04/12/20 tramadol 50 mg tablet mg PO 04/08/20 04/12/20 carbamazepine 200 mg tablet 400 mg PO BID tab 04/12/20 04/12/20 Previous Rx's Medication Instructions Recorded bethanechol chloride 50 mg tablet 50 mg PO TID 30 Days #90 tab 03/27/20 varenicline 1 mg tablet 1 mg PO BID #56 tab 04/03/20 Allergies Allergy/AdvReac Type Severity Reaction Status Date / Time No Known Allergies Allergy Unknown UNKNOWN Verified 04/12/20 16:50 [NO KNOWN ALLERGIES] Review of Systems Review of Systems: Constitutional: No Fever, No Chills ENT/Mouth: No sore throat Eyes: No Eye Pain, No Swelling, No Redness Cardiovascular: No Chest Pain, No SOB Respiratory: No Cough, No Sputum, No Wheezing Gastrointestinal: positive Nausea, positive Vomiting, No Diarrhea, positive abdominal pain Genitourinary: positive Santos catheter intolerance, no Dysuria, no urinary frequency, no Hematuria, no Flank Pain, No hesitancy Musculoskeletal: No joint pain, No Myalgias Skin: No Skin Lesions, No rash Neuro: No Weakness, No Numbness, No Headache Psych: No Anxiety/Panic, No Depression Heme/Lymph: No Bruising, No Lymphadenopathy Endocrine: No Polyuria, No Polydipsia Yes all other systems are reviewed and are negative [facility] Past Medical History Medical History (Updated 04/18/20 @ 22:35 by Anna Barreto NP) Anxiety Benign prostatic hyperplasia with lower urinary tract symptoms Bipolar 1 disorder Enlarged prostate Mood disorder Pure hypercholesterolemia Right knee injury Schizoaffective disorder, bipolar type Smoker Thought disorder Surgical History History of open reduction and internal fixation (ORIF) procedure History of prostate surgery (~05/03/19) Family History Family History Father Lung cancer BPH (benign prostatic hyperplasia) Mother Dementia Brother Myocardial infarction Social History Social History Alcohol intake: never Smoking Status: Current every day smoker Tobacco Type: Cigarette Use of substances other than those prescribed or required for medical reasons: No Advance Directives: No Physical Exam Vital Signs: Vital Signs: Last Vital Signs Temp 96.3 F L 04/18/20 22:15 Pulse 94 04/18/20 22:15 Resp 16 04/18/20 22:15 BP 106/67 04/18/20 22:15 Pulse Ox 97 04/18/20 22:15 Body Mass Index 24.8 Appearance: Alert. Oriented X3. No acute distress. Eyes: Pupils equal, round and reactive to light. ENT: Pharynx normal. Neck: Normal inspection. Neck supple. CVS: Normal heart rate and rhythm. Pulses normal. Respiratory: No respiratory distress. Breath sounds normal. Abdomen: Soft and nontender. Skin: Skin warm and dry. Normal skin color. Normal skin turgor. Extremities: No lower extremity edema. Neuro: No motor deficit. No sensory deficit. Course Course Course Narrative: 54-year-old male with past medical history BPH, neurogenic bladder, schizoaffective disorder, bipolar disorder, anxiety and depression presents with complaints of Santos catheter irritation. Prior emergency room visit on 04/16/2020 reviewed, instructions were to keep Santos catheter in place until he sees Urology on Monday. This was described to him in full detail, he does have significant prior history of neurogenic bladder with multiple TURPs. Patient was advised to Santos catheter in place and that I would not be removing this Santos catheter because of his history. He disagrees with plan of care, is angry at this [employer] for not removing the Santos catheter. It was discussed in detail that it is in his best interest to keep Santos catheter in place and have Urology remove it. Patient discharged home, he is angry but agrees with this plan. Discharge Plan Discharge Clinical Impression: Neurogenic bladder, Schizoaffective disorder, bipolar type Patient Disposition: Home, Self-Care Instructions: Santos Catheter Placement and Care (ED) Additional Instructions: you need to keep that Santos catheter in place until you see Urology on Monday. Thank you for choosing this emergency department for evaluation. Please follow-up with primary care physician as needed. Return to the emergency department for any new, concerning, or worsening symptoms. Prescriptions: No Action bethanechol chloride 50 mg tablet 50 mg PO TID 30 Days Qty: 90 RF: 1 varenicline [Chantix] 1 mg tablet 1 mg PO BID Qty: 56 RF: 0 lorazepam 1 mg tablet PO RF: 0 escitalopram oxalate 10 mg tablet 10 mg PO DAILY RF: 0 atorvastatin 10 mg tablet 10 mg PO DAILY RF: 0 aripiprazole 2 mg tablet 2 mg PO DAILY RF: 0 aripiprazole 15 mg tablet 15 mg PO DAILY RF: 0 finasteride 5 mg tablet 5 mg PO DAILY RF: 0 tamsulosin 0.4 mg capsule 0.4 mg PO DAILY RF: 0 nitrofurantoin macrocrystal 50 mg capsule 50 mg PO DAILY RF: 0 Thera-M 9 mg iron-400 mcg tablet 1 tab PO DAILY RF: 0 Lactobacillus acidophilus 100 mg (1 billion cell) capsule 100 mg PO DAILY RF: 0 olanzapine 5 mg tablet PO RF: 0 tramadol 50 mg tablet PO RF: 0 loratadine [Allergy Relief (loratadine)] 10 mg tablet 10 mg PO DAILY RF: 0 diphenhydramine HCl [Benadryl] 25 mg capsule 25 mg PO ONCE RF: 0 carbamazepine 200 mg tablet 400 mg PO BID RF: 0 Referrals: Lex Sánchez III, MD [Physician] - 2 days ( Urinary retention) Interventions: ED Discharge Assessment Last Done: 04/18/20 22:40 Discharge Date/Time: 04/18/20 22:41
--- NOTE | 2020-04-18 22:38 | PC.NURSE ---
pt presents to ed requesting to have schafer catheter removed, pt advised by qian lux he is to keep it in until his urologist appt monday, pt verbalizes understanding and walked out of ed.
== END 2020-04-18 22:41 | disposition home or self-care (01) ==
PROVIDERS: Emergency Provider Emergency Medicine; PCP Internal Medicine
DX: N31.9 Neuromuscular dysfunction of bladder, unspecified (principal); F20.9 Schizophrenia, unspecified; F31.9 Bipolar disorder, unspecified; T85.9XXA Unspecified complication of internal prosthetic device, implant and graft, initial encounter; F17.210 Nicotine dependence, cigarettes, uncomplicated; Z71.6 Tobacco abuse counseling; Z79.899 Other long term (current) drug therapy; Y73.8 Miscellaneous gastroenterology and urology devices associated with adverse incidents, not elsewhere classified; Y92.9 Unspecified place or not applicable
CPT/HCPCS: 99282; 99284

== ENCOUNTER 2020-04-20 23:18 | Emergency (ER) | payer MEDICARE, MEDICAID, SELFPAY ==
[2020-04-20 23:31] VITALS: BP 106/74; PULSE 95; RESP 16; TEMP 36.7; O2SAT 97; BMI 24.7
== END 2020-04-21 01:12 | disposition left against medical advice (07) ==
PROVIDERS: Emergency Provider Student in an Organized Health Care Education/Training Program; PCP Internal Medicine
DX: B99.9 Unspecified infectious disease (principal)
CPT/HCPCS: 99282

== ENCOUNTER 2020-05-03 00:27 | Emergency (ER) | payer MEDICARE, MEDICAID, SELFPAY ==
[2020-05-03 00:29] VITALS: BP 115/71; PULSE 86; RESP 16; TEMP 36; O2SAT 97; BMI 24.9
[2020-05-03 01:04] VITALS: BP 121/72; PULSE 80; RESP 17; TEMP 36.5; O2SAT 97
--- NOTE | 2020-05-03 01:10 | ED_ITS ---
HPI - Psych General Chief Complaint: Psychiatric Symptoms Stated Complaint: Anxiety Time Seen by Provider: 05/03/20 01:09 Source: patient Mode of arrival: ambulatory Limitations: no limitations History of Present Illness HPI Narrative: 54-year-old male with significant psychiatric history of schizoaffective disorder, bipolar type 1, anxiety, BPH, neurogenic bladder, presents with anxiety regarding roommate situation. He presents to this facility for similar circumstances at least once a week and sometimes twice a day. He denies suicidal ideation, homicidal ideation, auditory visual hallucinations, chest pain or pressure, palpitations, S of breath, abdominal pain, abdominal distention, dysuria, hematuria, urinary retention fevers and chills. MD complaint: feels depressed and anxiety Duration: constant and changing over time History of same: Yes Relieving factors: none Exacerbating factors: other ( situational) Context: significant life stressor Associated psychiatric symptoms: depression Associated symptoms: denies other symptoms Treatments prior to arrival: none Related Data Home Medications Medication Instructions Recorded Confirmed Lactobacillus acidophilus 100 mg 100 mg PO DAILY 04/08/20 04/12/20 (1 billion cell) capsule aripiprazole 15 mg tablet 15 mg PO DAILY 04/08/20 04/12/20 aripiprazole 2 mg tablet 2 mg PO DAILY 04/08/20 04/12/20 atorvastatin 10 mg tablet 10 mg PO DAILY 04/08/20 04/12/20 diphenhydramine HCl 25 mg capsule 25 mg PO ONCE cap 04/08/20 04/12/20 escitalopram oxalate 10 mg tablet 10 mg PO DAILY 04/08/20 04/12/20 finasteride 5 mg tablet 5 mg PO DAILY 04/08/20 04/12/20 loratadine 10 mg tablet 10 mg PO DAILY 04/08/20 04/12/20 lorazepam 1 mg tablet mg PO 04/08/20 04/12/20 multivitamin-iron 9 mg-folic acid 1 tab PO DAILY 04/08/20 04/12/20 400 mcg-calcium and minerals tablet nitrofurantoin macrocrystal 50 mg 50 mg PO DAILY 04/08/20 04/12/20 capsule olanzapine 5 mg tablet mg PO 04/08/20 04/12/20 tamsulosin 0.4 mg capsule 0.4 mg PO DAILY 04/08/20 04/12/20 tramadol 50 mg tablet mg PO 04/08/20 04/12/20 carbamazepine 200 mg tablet 400 mg PO BID tab 04/12/20 04/12/20 Previous Rx's Medication Instructions Recorded bethanechol chloride 50 mg tablet 50 mg PO TID 30 Days #90 tab 03/27/20 varenicline 1 mg tablet 1 mg PO BID #56 tab 04/03/20 Allergies Allergy/AdvReac Type Severity Reaction Status Date / Time No Known Allergies Allergy Unknown UNKNOWN Verified 04/20/20 23:30 [NO KNOWN ALLERGIES] Review of Systems Review of Systems: Constitutional: No Fever, No Chills ENT/Mouth: No Ear Pain, No Nasal Congestion, No sore throat Eyes: No Eye Pain, No Swelling, No Redness Cardiovascular: No Chest Pain, No SOB Respiratory: No Cough, No Sputum, No Dyspnea Gastrointestinal: No Nausea, No Vomiting, No Diarrhea, No Hematochezia, No Melena Genitourinary: No Dysuria, No Urinary Frequency, No Hematuria Musculoskeletal: No Myalgias Skin: No Skin Lesions, No rash Neuro: No Weakness, No Numbness, No Paresthesias, No Dizziness, No Headache Psych: positive Anxiety, positive Depression, no SI/HI Heme/Lymph: No Lymphadenopathy Endocrine: No Polyuria, No Polydipsia Yes all other systems are reviewed and are negative [facility] Past Medical History Medical History Anxiety Benign prostatic hyperplasia with lower urinary tract symptoms Bipolar 1 disorder Enlarged prostate Mood disorder Pure hypercholesterolemia Right knee injury Schizoaffective disorder, bipolar type Smoker Thought disorder Surgical History History of open reduction and internal fixation (ORIF) procedure History of prostate surgery (~05/03/19) Family History Family History Father Lung cancer BPH (benign prostatic hyperplasia) Mother Dementia Brother Myocardial infarction Social History Social History Alcohol intake: never Smoking Status: Current every day smoker Tobacco Type: Cigarette Smoked in Last 30 Days: Yes Use of substances other than those prescribed or required for medical reasons: No Advance Directives: No Advance Directives Information Provided: No Physical Exam Vital Signs: Vital Signs: Last Vital Signs Temp 97.7 F 05/03/20 01:04 Pulse 80 05/03/20 01:04 Resp 17 05/03/20 01:04 BP 121/72 05/03/20 01:04 Pulse Ox 97 05/03/20 01:04 Body Mass Index 24.9 Appearance: Alert. Oriented X3. No acute distress. Eyes: Pupils equal, round and reactive to light. ENT: Pharynx normal. Neck: Normal inspection. Neck supple. CVS: Normal heart rate and rhythm. Pulses normal. Respiratory: No respiratory distress. Breath sounds normal. Abdomen: Soft and nontender. Skin: Skin warm and dry. Normal skin color. Normal skin turgor. Extremities: No lower extremity edema. Neuro: No motor deficit. No sensory deficit. Course Course Course Narrative: 54-year-old male with significant psychiatric history presents to this emergency department several times a week for situational concerns regarding roommates and housing staff. At this time the patient is not suicidal, homicidal, does not have any physical complaints, vital signs are stable, alert and oriented x4, no focal neural deficits, afebrile. Plan of care is to discharge home and for patient to follow-up with outpatient psychiatry. MDM - Psych Differential Diagnosis Differential diagnosis: Likely acute psychosis, bipolar disorder, depression, acute anxiety, post-traumatic stress disorder, mood disorder and schizoaffective disorder Restraints Face to Face Assessment: Face to Face Assessment: Current Situation: After assessment of the patient, a review of the pertinent medical record and a discussion with nursing staff, I feel the patient requires a restrain intervention. Reaction To: [] Medical Condition: [] Behavioral State: [] Continued Need: [] Discharge Plan Discharge Clinical Impression: Anxiety Bipolar disorder Qualifiers: Active/Remission status: currently active Current bipolar episode type: depressed Current episode severity: moderate Qualified Code(s): F31.32 - Bipolar disorder, current episode depressed, moderate Patient Disposition: Home, Self-Care Instructions: Anxiety (ED), Mood Disorders (ED) Additional Instructions: Please follow-up with outpatient psychiatry as scheduled. Thank you for choosing this emergency department for evaluation. Please follow-up with primary care physician as needed. Return to the emergency department for any new, concerning, or worsening symptoms. Prescriptions: No Action bethanechol chloride 50 mg tablet 50 mg PO TID 30 Days Qty: 90 RF: 1 varenicline [Chantix] 1 mg tablet 1 mg PO BID Qty: 56 RF: 0 lorazepam 1 mg tablet PO RF: 0 escitalopram oxalate 10 mg tablet 10 mg PO DAILY RF: 0 atorvastatin 10 mg tablet 10 mg PO DAILY RF: 0 aripiprazole 2 mg tablet 2 mg PO DAILY RF: 0 aripiprazole 15 mg tablet 15 mg PO DAILY RF: 0 finasteride 5 mg tablet 5 mg PO DAILY RF: 0 tamsulosin 0.4 mg capsule 0.4 mg PO DAILY RF: 0 nitrofurantoin macrocrystal 50 mg capsule 50 mg PO DAILY RF: 0 Thera-M 9 mg iron-400 mcg tablet 1 tab PO DAILY RF: 0 Lactobacillus acidophilus 100 mg (1 billion cell) capsule 100 mg PO DAILY RF: 0 olanzapine 5 mg tablet PO RF: 0 tramadol 50 mg tablet PO RF: 0 loratadine [Allergy Relief (loratadine)] 10 mg tablet 10 mg PO DAILY RF: 0 diphenhydramine HCl [Benadryl] 25 mg capsule 25 mg PO ONCE RF: 0 carbamazepine 200 mg tablet 400 mg PO BID RF: 0
== END 2020-05-03 06:25 | disposition home or self-care (01) ==
PROVIDERS: Emergency Provider Emergency Medicine; PCP Internal Medicine
DX: F31.32 Bipolar disorder, current episode depressed, moderate (principal); F41.1 Generalized anxiety disorder; F43.0 Acute stress reaction; F17.210 Nicotine dependence, cigarettes, uncomplicated; Z71.6 Tobacco abuse counseling; Z79.899 Other long term (current) drug therapy
CPT/HCPCS: 99283; 99284

== ENCOUNTER 2020-05-17 14:07 | Emergency (ER) | payer MEDICARE, MEDICAID, SELFPAY ==
[2020-05-17 14:07] VITALS: BP 165/69; PULSE 100; RESP 18; TEMP 36.8; O2SAT 96; BMI 23.6
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
--- NOTE | 2020-05-17 15:40 | PC.NURSE ---
CALLED AND FAXED TO [facility].
--- NOTE | 2020-05-17 16:49 | PC.NURSE ---
SPOKE WITH [employer]CTOR [employer] TE[employer]. PATIENT IS FREE TO RETURN TO SENIOR CARE AFTER DISCHARGE.
--- NOTE | 2020-05-17 17:00 | PC.NURSE ---
REPORT TAKEN FROM FRANCINE DOMINICK.
== END 2020-05-17 17:04 | disposition home or self-care (01) ==
PROVIDERS: Emergency Provider Emergency Medicine; PCP Internal Medicine
DX: H61.21 Impacted cerumen, right ear (principal); F17.210 Nicotine dependence, cigarettes, uncomplicated; Z71.6 Tobacco abuse counseling; Z79.899 Other long term (current) drug therapy
CPT/HCPCS: 69209; 99283

== ENCOUNTER 2020-05-18 22:08 | Emergency (ER) | payer MEDICARE, MEDICAID, SELFPAY ==
[2020-05-18 22:20] VITALS: PULSE 96; RESP 18; TEMP 36.9; O2SAT 96; BMI 26.8
--- NOTE | 2020-05-18 22:24 | PC.NURSE ---
PT TO ROOM VIA AMBULANCE WITH FEELING ANXIOUS FROM BEING IN ROOM ALONG . PT ARRIVES ALERT, RESPIRATIONS EASY, N/L. SKIN W/D.
[2020-05-18] MEDS: hydrOXYzine HCL 50 MG TABLET PO (23:06)
[2020-05-19 00:27] VITALS: RESP 16
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
[2020-05-19 02:03] VITALS: PULSE 64; RESP 14
[2020-05-19 03:58] VITALS: RESP 14
== END 2020-05-19 05:18 | disposition home or self-care (01) ==
PROVIDERS: Emergency Provider Internal Medicine
DX: F25.0 Schizoaffective disorder, bipolar type (principal); F41.9 Anxiety disorder, unspecified; F17.210 Nicotine dependence, cigarettes, uncomplicated; Z79.899 Other long term (current) drug therapy
CPT/HCPCS: 99284

== ENCOUNTER 2020-05-23 02:05 | Emergency (ER) | payer MEDICARE, MEDICAID, SELFPAY ==
[2020-05-23 02:20] VITALS: BP 115/69; PULSE 84; RESP 18; TEMP 36.4; O2SAT 97; BMI 25.0
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
--- NOTE | 2020-05-23 02:37 | ED.PSYCH ---
HPI - Psych General Chief Complaint: Psychiatric Symptoms Stated Complaint: Crisis Time Seen by Provider: 05/23/20 02:15 Source: patient Mode of arrival: ambulatory Limitations: no limitations History of Present Illness HPI Narrative: Patient history of anxiety been here multiple times unable to sleep at home getting disturbed at halfway because of other people asking for medication to relax. Patient been here multiple times for similar situation denies any suicidal ideation or depression Related Data Home Medications Medication Instructions Recorded Confirmed Lactobacillus acidophilus 100 mg 100 mg PO DAILY 04/08/20 04/12/20 (1 billion cell) capsule aripiprazole 15 mg tablet 15 mg PO DAILY 04/08/20 04/12/20 aripiprazole 2 mg tablet 2 mg PO DAILY 04/08/20 04/12/20 atorvastatin 10 mg tablet 10 mg PO DAILY 04/08/20 04/12/20 diphenhydramine HCl 25 mg capsule 25 mg PO ONCE cap 04/08/20 04/12/20 escitalopram oxalate 10 mg tablet 10 mg PO DAILY 04/08/20 04/12/20 finasteride 5 mg tablet 5 mg PO DAILY 04/08/20 04/12/20 loratadine 10 mg tablet 10 mg PO DAILY 04/08/20 04/12/20 lorazepam 1 mg tablet mg PO 04/08/20 04/12/20 multivitamin-iron 9 mg-folic acid 1 tab PO DAILY 04/08/20 04/12/20 400 mcg-calcium and minerals tablet nitrofurantoin macrocrystal 50 mg 50 mg PO DAILY 04/08/20 04/12/20 capsule olanzapine 5 mg tablet mg PO 04/08/20 04/12/20 tamsulosin 0.4 mg capsule 0.4 mg PO DAILY 04/08/20 04/12/20 tramadol 50 mg tablet mg PO 04/08/20 04/12/20 carbamazepine 200 mg tablet 400 mg PO BID tab 04/12/20 04/12/20 Previous Rx's Medication Instructions Recorded varenicline 1 mg tablet 1 mg PO BID #56 tab 04/03/20 bethanechol chloride 50 mg tablet 50 mg PO TID #90 tab 05/19/20 Allergies Allergy/AdvReac Type Severity Reaction Status Date / Time No Known Allergies Allergy Unknown UNKNOWN Verified 05/23/20 02:08 [NO KNOWN ALLERGIES] Review of Systems Review of Systems: Constitutional : No Weight loss, No Fever, No Chills ENT/Mouth : No sore throat, No Rhinorrhea Eyes: No Eye Pain, No Swelling Cardiovascular : pos Chest Pain, no SOB, no Dyspnea on Exertion, No Orthopnea, No Edema, No Palpitations Respiratory : No Cough, No Sputum Gastrointestinal : no Nausea, No Vomiting, No Diarrhea, No abdominal Pain, No Hematochezia, No Melena Genitourinary : No Dysuria, No Urinary Frequency Musculoskeletal : No joint pain, No Myalgias, No Joint Swelling Skin : No Skin Lesions, No rash Neuro : No Weakness, No Numbness, pos Dizziness, No Headache Psych :, No Depression Heme/Lymph: No Bruising, No Lymphadenopathy Endocrine : No Polyuria, No Polydipsia All other systems reviewed and are negative [facility] Past Medical History Medical History Anxiety Benign prostatic hyperplasia with lower urinary tract symptoms Bipolar 1 disorder Enlarged prostate Mood disorder Pure hypercholesterolemia Right knee injury Schizoaffective disorder, bipolar type Smoker Thought disorder Surgical History History of open reduction and internal fixation (ORIF) procedure History of prostate surgery (~05/03/19) Family History Family History Father Lung cancer BPH (benign prostatic hyperplasia) Mother Dementia Brother Myocardial infarction Social History Social History Alcohol intake: never Smoking Status: Current every day smoker Tobacco Type: Cigarette Advance Directives: No Advance Directives Information Provided: No Physical Exam Vital Signs: Vital Signs: Last Vital Signs Temp 97.6 F 05/23/20 02:20 Pulse 84 05/23/20 02:20 Resp 18 05/23/20 02:20 BP 115/69 05/23/20 02:20 Pulse Ox 97 05/23/20 02:20 Body Mass Index 25.0 Appearance: Alert. Oriented X3. No acute distress. Eyes: Pupils equal, round and reactive to light. ENT: Pharynx normal. Neck: Normal inspection. Neck supple. CVS: Normal heart rate and rhythm. Pulses normal. Respiratory: No respiratory distress. Breath sounds normal. Abdomen: Soft and nontender. Skin: Skin warm and dry. Normal skin color. Normal skin turgor. Extremities: No lower extremity edema. No calf ttp Psych: Anxious, no hallucination no suicidal ideation Neuro: Oriented X 3. No motor deficit. No sensory deficit. MDM - Psych MDM Narrative Medical decision making narrative: Patient feeling much better after Valium will discharge him home Differential Diagnosis Differential diagnosis: Likely acute anxiety Restraints Face to Face Assessment: Face to Face Assessment: Current Situation: After assessment of the patient, a review of the pertinent medical record and a discussion with nursing staff, I feel the patient requires a restrain intervention. Reaction To: [] Medical Condition: [] Behavioral State: [] Continued Need: [] Discharge Plan Discharge Clinical Impression: Anxiety Patient Disposition: Home, Self-Care Instructions: Anxiety (ED) Additional Instructions: Follow-up with therapist and psychiatrist Prescriptions: No Action varenicline [Chantix] 1 mg tablet 1 mg PO BID Qty: 56 RF: 0 bethanechol chloride 50 mg tablet 50 mg PO TID Qty: 90 RF: 2 lorazepam 1 mg tablet PO RF: 0 escitalopram oxalate 10 mg tablet 10 mg PO DAILY RF: 0 atorvastatin 10 mg tablet 10 mg PO DAILY RF: 0 aripiprazole 2 mg tablet 2 mg PO DAILY RF: 0 aripiprazole 15 mg tablet 15 mg PO DAILY RF: 0 finasteride 5 mg tablet 5 mg PO DAILY RF: 0 tamsulosin 0.4 mg capsule 0.4 mg PO DAILY RF: 0 nitrofurantoin macrocrystal 50 mg capsule 50 mg PO DAILY RF: 0 Thera-M 9 mg iron-400 mcg tablet 1 tab PO DAILY RF: 0 Lactobacillus acidophilus 100 mg (1 billion cell) capsule 100 mg PO DAILY RF: 0 olanzapine 5 mg tablet PO RF: 0 tramadol 50 mg tablet PO RF: 0 loratadine [Allergy Relief (loratadine)] 10 mg tablet 10 mg PO DAILY RF: 0 diphenhydramine HCl [Benadryl] 25 mg capsule 25 mg PO ONCE RF: 0 carbamazepine 200 mg tablet 400 mg PO BID RF: 0
[2020-05-23] MEDS: diazePAM 2 MG TABLET PO (02:42)
--- NOTE | 2020-05-23 02:42 | PC.NURSE ---
Pt medicated per AUG with Valium. Per MD, plan to rest and DC at 0500.
--- NOTE | 2020-05-23 03:44 | PC.NURSE ---
Pt resting briefly but not awake, requesting discharge.
== END 2020-05-23 03:58 | disposition home or self-care (01) ==
PROVIDERS: Emergency Provider Internal Medicine; PCP Internal Medicine
DX: F41.1 Generalized anxiety disorder (principal); F43.0 Acute stress reaction; F17.210 Nicotine dependence, cigarettes, uncomplicated; Z71.6 Tobacco abuse counseling; Z79.899 Other long term (current) drug therapy
CPT/HCPCS: 99283

== ENCOUNTER 2020-05-27 23:24 | Emergency (ER) | payer MEDICARE, MEDICAID, SELFPAY ==
--- NOTE | 2020-05-27 23:41 | ED_ITS ---
HPI - Anxiety General Chief Complaint: Anxiety Stated Complaint: Anxiety Source: patient Mode of arrival: ambulatory Limitations: no limitations History of Present Illness HPI narrative: 54-year-old male with past medical history of schizoaffective disorder, bipolar disorder, BPH, hypercholesteremia, neurogenic bladder, and anxiety presents with anxiety and frustration regarding his home life. He states that he is having problems with his [facility] staff members as well as roommates. This has been a chronic problem, he presents approximately once a week for similar circumstances he does not describe any suicidal ideation, homicidal ideation, auditory or visual hallucination, or any medical problems. MD complaint: anxiety Onset (ago): year(s) Severity: moderate Quality: constant Place: home History of similar episodes: Yes Provoking factors: emotional stress Relieving factors: nothing Exacerbating factors: thinking about event Associated symptoms: denies other symptoms Related Data Home Medications Medication Instructions Recorded Confirmed Lactobacillus acidophilus 100 mg 100 mg PO DAILY 04/08/20 04/12/20 (1 billion cell) capsule aripiprazole 15 mg tablet 15 mg PO DAILY 04/08/20 04/12/20 aripiprazole 2 mg tablet 2 mg PO DAILY 04/08/20 04/12/20 atorvastatin 10 mg tablet 10 mg PO DAILY 04/08/20 04/12/20 diphenhydramine HCl 25 mg capsule 25 mg PO ONCE cap 04/08/20 04/12/20 escitalopram oxalate 10 mg tablet 10 mg PO DAILY 04/08/20 04/12/20 finasteride 5 mg tablet 5 mg PO DAILY 04/08/20 04/12/20 loratadine 10 mg tablet 10 mg PO DAILY 04/08/20 04/12/20 lorazepam 1 mg tablet mg PO 04/08/20 04/12/20 multivitamin-iron 9 mg-folic acid 1 tab PO DAILY 04/08/20 04/12/20 400 mcg-calcium and minerals tablet nitrofurantoin macrocrystal 50 mg 50 mg PO DAILY 04/08/20 04/12/20 capsule olanzapine 5 mg tablet mg PO 04/08/20 04/12/20 tamsulosin 0.4 mg capsule 0.4 mg PO DAILY 04/08/20 04/12/20 tramadol 50 mg tablet mg PO 04/08/20 04/12/20 carbamazepine 200 mg tablet 400 mg PO BID tab 04/12/20 04/12/20 Previous Rx's Medication Instructions Recorded varenicline 1 mg tablet 1 mg PO BID #56 tab 04/03/20 bethanechol chloride 50 mg tablet 50 mg PO TID #90 tab 05/19/20 Allergies Allergy/AdvReac Type Severity Reaction Status Date / Time No Known Allergies Allergy Unknown UNKNOWN Verified 05/27/20 23:54 [NO KNOWN ALLERGIES] Review of Systems Review of Systems: Constitutional: No Fever, No Chills ENT/Mouth: No Ear Pain, No Nasal Congestion, No sore throat Eyes: No Eye Pain, No Swelling, No Redness Cardiovascular: No Chest Pain, No SOB Respiratory: No Cough, No Sputum, No Dyspnea Gastrointestinal: No Nausea, No Vomiting, No Diarrhea, No Hematochezia, No Melena Genitourinary: No Dysuria, No Urinary Frequency, No Hematuria Musculoskeletal: No Myalgias Skin: No Skin Lesions, No rash Neuro: No Weakness, No Numbness, No Paresthesias, No Dizziness, No Headache Psych: positive Anxiety, positive Depression, no SI/HI Heme/Lymph: No Lymphadenopathy Endocrine: No Polyuria, No Polydipsia Yes all other systems are reviewed and are negative [facility] Past Medical History Attestation statement: The following information was validated with the patient. Medical History Anxiety Benign prostatic hyperplasia with lower urinary tract symptoms Bipolar 1 disorder Enlarged prostate Mood disorder Pure hypercholesterolemia Right knee injury Schizoaffective disorder, bipolar type Smoker Thought disorder Surgical History History of open reduction and internal fixation (ORIF) procedure History of prostate surgery (~05/03/19) Family History Family History Father Lung cancer BPH (benign prostatic hyperplasia) Mother Dementia Brother Myocardial infarction Social History Social History Alcohol intake: never Smoking Status: Current every day smoker Tobacco Type: Cigarette Advance Directives: No Advance Directives Information Provided: No Physical Exam Vital Signs: Vital Signs: Last Vital Signs Temp 98.3 F 05/27/20 23:55 Pulse 98 05/27/20 23:55 Resp 16 05/27/20 23:55 BP 112/61 05/27/20 23:55 Pulse Ox 97 05/27/20 23:55 Body Mass Index 24.3 Appearance: Alert. Oriented X3. No acute distress. Eyes: Pupils equal, round and reactive to light. ENT: Pharynx normal. Neck: Normal inspection. Neck supple. CVS: Normal heart rate and rhythm. Pulses normal. Respiratory: No respiratory distress. Breath sounds normal. Abdomen: Soft and nontender. Skin: Skin warm and dry. Normal skin color. Normal skin turgor. Extremities: No lower extremity edema. Neuro: No motor deficit. No sensory deficit. Course Course Course Narrative: 54-year-old male presents with anxiety regarding a home life situation. Patient does follow-up with outpatient therapy and Psychiatry, has been taking his medications, denies suicidal or homicidal ideation. Plan of care is for patient to be discharged home with outpatient follow-up. MDM - Anxiety Differential Diagnosis Differential diagnosis: Likely acute anxiety Medical Records Attestation: I reviewed the patient's medical records. Discharge Plan Discharge Clinical Impression: Anxiety, Schizoaffective disorder, bipolar type Patient Disposition: Home, Self-Care Instructions: Anxiety (ED) Additional Instructions: Please follow-up with outpatient therapy as scheduled Thank you for choosing this emergency department for evaluation. Please follow-up with primary care physician as needed. Return to the emergency department for any new, concerning, or worsening symptoms. Prescriptions: No Action varenicline [Chantix] 1 mg tablet 1 mg PO BID Qty: 56 RF: 0 bethanechol chloride 50 mg tablet 50 mg PO TID Qty: 90 RF: 2 lorazepam 1 mg tablet PO RF: 0 escitalopram oxalate 10 mg tablet 10 mg PO DAILY RF: 0 atorvastatin 10 mg tablet 10 mg PO DAILY RF: 0 aripiprazole 2 mg tablet 2 mg PO DAILY RF: 0 aripiprazole 15 mg tablet 15 mg PO DAILY RF: 0 finasteride 5 mg tablet 5 mg PO DAILY RF: 0 tamsulosin 0.4 mg capsule 0.4 mg PO DAILY RF: 0 nitrofurantoin macrocrystal 50 mg capsule 50 mg PO DAILY RF: 0 Thera-M 9 mg iron-400 mcg tablet 1 tab PO DAILY RF: 0 Lactobacillus acidophilus 100 mg (1 billion cell) capsule 100 mg PO DAILY RF: 0 olanzapine 5 mg tablet PO RF: 0 tramadol 50 mg tablet PO RF: 0 loratadine [Allergy Relief (loratadine)] 10 mg tablet 10 mg PO DAILY RF: 0 diphenhydramine HCl [Benadryl] 25 mg capsule 25 mg PO ONCE RF: 0 carbamazepine 200 mg tablet 400 mg PO BID RF: 0
[2020-05-27 23:55] VITALS: BP 112/61; PULSE 98; RESP 16; TEMP 36.8; O2SAT 97; BMI 24.3
== END 2020-05-28 01:16 | disposition home or self-care (01) ==
PROVIDERS: Emergency Provider Internal Medicine; PCP Internal Medicine
DX: F41.9 Anxiety disorder, unspecified (principal); F25.0 Schizoaffective disorder, bipolar type; F17.200 Nicotine dependence, unspecified, uncomplicated; Z79.899 Other long term (current) drug therapy
CPT/HCPCS: 99283

== ENCOUNTER 2020-05-31 01:03 | Emergency (ER) | payer MEDICARE, MEDICAID, SELFPAY ==
[2020-05-31 01:12] VITALS: BP 115/68; PULSE 89; RESP 16; TEMP 36.9; O2SAT 97; BMI 24.0
--- NOTE | 2020-05-31 01:49 | ED_ITS ---
HPI - General Adult General Chief complaint: General Medical Stated complaint: Crisis Time Seen by Provider: 05/31/20 01:48 Source: patient Mode of arrival: ambulatory Limitations: no limitations History of Present Illness HPI narrative: Patient comes to emergency room complaining of not acting well to his custodial. Patient states he does not like his roommates. Patient is well-known to the Emergency Service, comes approximately once a week for similar issues. At this time, patient has no physical complaints, patient denies SI and HI MD complaint: Not adapting to his custodial Related Data Home Medications Medication Instructions Recorded Confirmed Lactobacillus acidophilus 100 mg 100 mg PO DAILY 04/08/20 04/12/20 (1 billion cell) capsule aripiprazole 15 mg tablet 15 mg PO DAILY 04/08/20 04/12/20 aripiprazole 2 mg tablet 2 mg PO DAILY 04/08/20 04/12/20 atorvastatin 10 mg tablet 10 mg PO DAILY 04/08/20 04/12/20 diphenhydramine HCl 25 mg capsule 25 mg PO ONCE cap 04/08/20 04/12/20 escitalopram oxalate 10 mg tablet 10 mg PO DAILY 04/08/20 04/12/20 finasteride 5 mg tablet 5 mg PO DAILY 04/08/20 04/12/20 loratadine 10 mg tablet 10 mg PO DAILY 04/08/20 04/12/20 lorazepam 1 mg tablet mg PO 04/08/20 04/12/20 multivitamin-iron 9 mg-folic acid 1 tab PO DAILY 04/08/20 04/12/20 400 mcg-calcium and minerals tablet nitrofurantoin macrocrystal 50 mg 50 mg PO DAILY 04/08/20 04/12/20 capsule olanzapine 5 mg tablet mg PO 04/08/20 04/12/20 tamsulosin 0.4 mg capsule 0.4 mg PO DAILY 04/08/20 04/12/20 tramadol 50 mg tablet mg PO 04/08/20 04/12/20 carbamazepine 200 mg tablet 400 mg PO BID tab 04/12/20 04/12/20 Previous Rx's Medication Instructions Recorded varenicline 1 mg tablet 1 mg PO BID #56 tab 04/03/20 bethanechol chloride 50 mg tablet 50 mg PO TID #90 tab 05/19/20 Allergies Allergy/AdvReac Type Severity Reaction Status Date / Time No Known Allergies Allergy Unknown UNKNOWN Verified 05/27/20 23:54 [NO KNOWN ALLERGIES] Review of Systems 2 Review of Systems: Constitutional : No Weight loss, No Fever, No Chills, No Night Sweats, No Fatigue, No Malaise ENT/Mouth : No Hearing loss, No Ear Pain, No Nasal Congestion, No Sinus Pain, No Hoarseness, No sore throat, No Rhinorrhea, No Swallowing Difficulty Eyes: No Eye Pain, No Swelling, No Redness, No Foreign Body, No Discharge, No Vision Changes Cardiovascular : No Chest Pain, No SOB, No Dyspnea on Exertion, No Orthopnea, No Edema, No Palpitations Respiratory : No Cough, No Sputum, No Wheezing, No Smoke Exposure, No Dyspnea Gastrointestinal : No Nausea, No Vomiting, No Diarrhea, No Constipation, No abdominal Pain, No Hematochezia, No Melena Genitourinary : Complaining that he has to self-catheterize twice a day, no dysuria Musculoskeletal : No joint pain, No Myalgias, No Joint Swelling Skin : No Skin Lesions, No rash Neuro : No Weakness, No Numbness, No Paresthesias, No Loss of Consciousness, No Dizziness, No Headache Psych : No Anxiety/Panic, No Depression, No SI/HI/AH/VH, No Social Issues, Heme/Lymph: No Bruising, No Bleeding,No Lymphadenopathy Endocrine : No Polyuria, No Polydipsia, No Temperature Intolerance PMFSH Past Medical History Medical History Anxiety Benign prostatic hyperplasia with lower urinary tract symptoms Bipolar 1 disorder Enlarged prostate Mood disorder Pure hypercholesterolemia Right knee injury Schizoaffective disorder, bipolar type Smoker Thought disorder Surgical History History of open reduction and internal fixation (ORIF) procedure History of prostate surgery (~05/03/19) Family History Family History Father Lung cancer BPH (benign prostatic hyperplasia) Mother Dementia Brother Myocardial infarction Social History Social History Alcohol intake: never Smoking Status: Current every day smoker Tobacco Type: Cigarette Advance Directives: No Advance Directives Information Provided: No Physical Exam Vital Signs: Vital Signs: Last Vital Signs Temp 98.5 F 05/31/20 01:12 Pulse 89 05/31/20 01:12 Resp 16 05/31/20 01:12 BP 115/68 05/31/20 01:12 Pulse Ox 97 05/31/20 01:12 Body Mass Index 24.0 Appearance: Alert. Oriented X3. No acute distress. Eyes: Pupils equal, round and reactive to light. ENT: Pharynx normal. Neck: Normal inspection. Neck supple. No lymph nodes noted. No crepitus CVS: Normal heart rate and rhythm. Pulses normal. Normal S1 and S2 Respiratory: No respiratory distress. Breath sounds normal. No Wheezing. No rales Abdomen: Soft and nontender. No rigidity. No distention. good BS x4 Skin: Skin warm and dry. Normal skin color. Normal skin turgor. Extremities: No lower extremity edema. No lower extremity edema. No Lacerations. No Rash Neuro: Oriented X 3. No motor deficit. No sensory deficit. Moving all extermities. No slurred speech. Course Course Course Narrative: [facility] consult offered, patient declined, patient states that he will follow up with his therapist Discharge Plan Discharge Clinical Impression: Anxiety Patient Disposition: Home, Self-Care Instructions: Anxiety (ED) Additional Instructions: Please follow-up with your primary care physician tomorrow. If you have any worsening or new symptoms, please return to the emergency room or call 911 Prescriptions: No Action varenicline [Chantix] 1 mg tablet 1 mg PO BID Qty: 56 RF: 0 bethanechol chloride 50 mg tablet 50 mg PO TID Qty: 90 RF: 2 lorazepam 1 mg tablet PO RF: 0 escitalopram oxalate 10 mg tablet 10 mg PO DAILY RF: 0 atorvastatin 10 mg tablet 10 mg PO DAILY RF: 0 aripiprazole 2 mg tablet 2 mg PO DAILY RF: 0 aripiprazole 15 mg tablet 15 mg PO DAILY RF: 0 finasteride 5 mg tablet 5 mg PO DAILY RF: 0 tamsulosin 0.4 mg capsule 0.4 mg PO DAILY RF: 0 nitrofurantoin macrocrystal 50 mg capsule 50 mg PO DAILY RF: 0 Thera-M 9 mg iron-400 mcg tablet 1 tab PO DAILY RF: 0 Lactobacillus acidophilus 100 mg (1 billion cell) capsule 100 mg PO DAILY RF: 0 olanzapine 5 mg tablet PO RF: 0 tramadol 50 mg tablet PO RF: 0 loratadine [Allergy Relief (loratadine)] 10 mg tablet 10 mg PO DAILY RF: 0 diphenhydramine HCl [Benadryl] 25 mg capsule 25 mg PO ONCE RF: 0 carbamazepine 200 mg tablet 400 mg PO BID RF: 0
== END 2020-05-31 02:10 | disposition home or self-care (01) ==
PROVIDERS: Emergency Provider Emergency Medicine; PCP Internal Medicine
DX: F41.1 Generalized anxiety disorder (principal); F43.0 Acute stress reaction; F17.210 Nicotine dependence, cigarettes, uncomplicated; Z71.6 Tobacco abuse counseling; Z79.899 Other long term (current) drug therapy
CPT/HCPCS: 99283

== ENCOUNTER 2020-06-04 20:21 | Emergency (ER) | payer MEDICARE, MEDICAID, SELFPAY ==
[2020-06-04 20:25] VITALS: BP 135/82; PULSE 69; RESP 18; TEMP 36.5; O2SAT 100; BMI 27.3
--- NOTE | 2020-06-04 20:33 | ED_ITS ---
HPI - Psych General Chief Complaint: General Medical Stated Complaint: WANTS TO SPEAK W/SOME ONE Time Seen by Provider: 06/04/20 20:33 Source: patient and EMS Mode of arrival: EMS Limitations: no limitations History of Present Illness MD complaint: other (feels anxious about his senior care isn't happy there they don't take him seriously) Onset (ago): day(s) (1) Duration: intermittent Relieving factors: none Exacerbating factors: none Context: significant life stressor Associated psychiatric symptoms: depression Associated symptoms: denies other symptoms Treatments prior to arrival: none Related Data Home Medications Medication Instructions Recorded Confirmed Lactobacillus acidophilus 100 mg 100 mg PO DAILY 04/08/20 04/12/20 (1 billion cell) capsule aripiprazole 15 mg tablet 15 mg PO DAILY 04/08/20 04/12/20 aripiprazole 2 mg tablet 2 mg PO DAILY 04/08/20 04/12/20 atorvastatin 10 mg tablet 10 mg PO DAILY 04/08/20 04/12/20 diphenhydramine HCl 25 mg capsule 25 mg PO ONCE cap 04/08/20 04/12/20 escitalopram oxalate 10 mg tablet 10 mg PO DAILY 04/08/20 04/12/20 finasteride 5 mg tablet 5 mg PO DAILY 04/08/20 04/12/20 loratadine 10 mg tablet 10 mg PO DAILY 04/08/20 04/12/20 lorazepam 1 mg tablet mg PO 04/08/20 04/12/20 multivitamin-iron 9 mg-folic acid 1 tab PO DAILY 04/08/20 04/12/20 400 mcg-calcium and minerals tablet nitrofurantoin macrocrystal 50 mg 50 mg PO DAILY 04/08/20 04/12/20 capsule olanzapine 5 mg tablet mg PO 04/08/20 04/12/20 tamsulosin 0.4 mg capsule 0.4 mg PO DAILY 04/08/20 04/12/20 tramadol 50 mg tablet mg PO 04/08/20 04/12/20 carbamazepine 200 mg tablet 400 mg PO BID tab 04/12/20 04/12/20 Previous Rx's Medication Instructions Recorded varenicline 1 mg tablet 1 mg PO BID #56 tab 04/03/20 bethanechol chloride 50 mg tablet 50 mg PO TID #90 tab 05/19/20 Allergies Allergy/AdvReac Type Severity Reaction Status Date / Time No Known Allergies Allergy Unknown UNKNOWN Verified 05/27/20 23:54 [NO KNOWN ALLERGIES] Review of Systems Review of Systems: Constitutional : No Fever, No Chills ENT/Mouth : No Ear Pain, No Nasal Congestion, No sore throat Eyes: No Eye Pain, No Swelling, No Redness Cardiovascular : No Chest Pain, No SOB Respiratory : No Cough, No Sputum, No Dyspnea Gastrointestinal : No Nausea, No Vomiting, No Diarrhea, No Hematochezia, No Melena Genitourinary : No Dysuria, No Urinary Frequency, No Hematuria Musculoskeletal : No Myalgias Skin : No Skin Lesions, No rash Neuro : No Weakness, No Numbness, No Paresthesias, No Dizziness, No Headache Psych : positive Anxiety, positive Depression, no SI/HI Heme/Lymph: No Lymphadenopathy Endocrine : No Polyuria, No Polydipsia All other systems reviewed and are negative [facility] Past Medical History Attestation statement: The following information was validated with the patient. Medical History Anxiety Benign prostatic hyperplasia with lower urinary tract symptoms Bipolar 1 disorder Enlarged prostate Mood disorder Pure hypercholesterolemia Right knee injury Schizoaffective disorder, bipolar type Smoker Thought disorder Surgical History History of open reduction and internal fixation (ORIF) procedure History of prostate surgery (~05/03/19) Family History Family History Father Lung cancer BPH (benign prostatic hyperplasia) Mother Dementia Brother Myocardial infarction Social History Social History Alcohol intake: never Smoking Status: Current every day smoker Tobacco Type: Cigarette Smoked in Last 30 Days: No Use of substances other than those prescribed or required for medical reasons: No Advance Directives: No Physical Exam Vital Signs: Vital Signs: Last Vital Signs Temp 97.7 F 06/04/20 20:25 Pulse 69 06/04/20 20:25 Resp 18 06/04/20 20:25 BP 135/82 06/04/20 20:25 Pulse Ox 100 06/04/20 20:25 Body Mass Index 27.3 Appearance: Alert. Oriented X3. No acute distress. calm and cooperative, happy staying here tonight Eyes: Pupils equal, round and reactive to light. ENT: Pharynx normal. Neck: Normal inspection. Neck supple. CVS: Normal heart rate and rhythm. Pulses normal. Respiratory: No respiratory distress. Breath sounds normal. Abdomen: Soft and non-tender. Skin: Skin warm and dry. Normal skin color. Normal skin turgor. Extremities: No lower extremity edema. No calf ttp Neuro: Oriented X 3. No motor deficit. No sensory deficit. Course Course Course Narrative: patient wants to leave, has settled down MDM - Psych MDM Narrative Medical decision making narrative: 54 yo male with multiple visits to the ED usually associated with anxiety and unhappiness with his senior care, he generally comes to the ED and feels better after a while, he has no SI/HI. He can stay to talk to crisis if he needs to but is voluntary Discharge Plan Discharge Clinical Impression: Anxiety Patient Disposition: Home, Self-Care Instructions: Anxiety (ED) Additional Instructions: return to ED for any worsening symptoms or concerns Prescriptions: No Action varenicline [Chantix] 1 mg tablet 1 mg PO BID Qty: 56 RF: 0 bethanechol chloride 50 mg tablet 50 mg PO TID Qty: 90 RF: 2 lorazepam 1 mg tablet PO RF: 0 escitalopram oxalate 10 mg tablet 10 mg PO DAILY RF: 0 atorvastatin 10 mg tablet 10 mg PO DAILY RF: 0 aripiprazole 2 mg tablet 2 mg PO DAILY RF: 0 aripiprazole 15 mg tablet 15 mg PO DAILY RF: 0 finasteride 5 mg tablet 5 mg PO DAILY RF: 0 tamsulosin 0.4 mg capsule 0.4 mg PO DAILY RF: 0 nitrofurantoin macrocrystal 50 mg capsule 50 mg PO DAILY RF: 0 Thera-M 9 mg iron-400 mcg tablet 1 tab PO DAILY RF: 0 Lactobacillus acidophilus 100 mg (1 billion cell) capsule 100 mg PO DAILY RF: 0 olanzapine 5 mg tablet PO RF: 0 tramadol 50 mg tablet PO RF: 0 loratadine [Allergy Relief (loratadine)] 10 mg tablet 10 mg PO DAILY RF: 0 diphenhydramine HCl [Benadryl] 25 mg capsule 25 mg PO ONCE RF: 0 carbamazepine 200 mg tablet 400 mg PO BID RF: 0 Referrals: [facility] [Physician] - 1 day (as needed)
--- NOTE | 2020-06-04 20:35 | PC.NURSE ---
pt denies si/hi at this itme.
== END 2020-06-04 22:06 | disposition home or self-care (01) ==
PROVIDERS: Emergency Provider Emergency Medicine; PCP Internal Medicine
DX: F41.1 Generalized anxiety disorder (principal); F43.0 Acute stress reaction; F17.210 Nicotine dependence, cigarettes, uncomplicated; Z71.6 Tobacco abuse counseling; Z79.899 Other long term (current) drug therapy
CPT/HCPCS: 99284

== ENCOUNTER 2020-06-08 19:38 | Emergency (ER) | payer MEDICARE, MEDICAID, SELFPAY ==
--- NOTE | 2020-06-08 20:27 | PC.NURSE ---
NOT PRESENT WHEN CALLED FOR TRIAGE
--- NOTE | 2020-06-08 20:34 | PC.NURSE ---
PT NOT PRESENT FOR TRIAGE X3
== END 2020-06-08 20:46 | disposition left against medical advice (07) ==
PROVIDERS: Emergency Provider Emergency Medicine; PCP Internal Medicine
DX: Z79.899 Other long term (current) drug therapy (principal)

== ENCOUNTER 2020-06-13 23:22 | Emergency (ER) | payer MEDICARE, MEDICAID, SELFPAY ==
[2020-06-13 23:45] VITALS: BP 106/67; PULSE 88; RESP 18; TEMP 37.1; O2SAT 97; BMI 24.0
[2020-06-14] VITALS: BP 106/67; PULSE 88; RESP 18; TEMP 37.1; O2SAT 97
--- NOTE | 2020-06-14 01:22 | ED_ITS ---
HPI - Male Genitourinary General Chief complaint: Urogenital-Male Stated complaint: Catheter issue Time Seen by Provider: 06/14/20 01:01 Source: patient Mode of arrival: ambulatory Limitations: no limitations History of Present Illness HPI Narrative: 54-year-old male with known history of extensive mental disorders, presented today because he ran out of his straight catheter, patient normally can urinate on his own but occasionally uses self-catheterization. Patient has no urinary complaints today,was able to urinate today, no abdominal pain or discomfort, no fever, no chills, no dysuria, no frequency. Related Data Home Medications Medication Instructions Recorded Confirmed Lactobacillus acidophilus 100 mg 100 mg PO DAILY 04/08/20 04/12/20 (1 billion cell) capsule aripiprazole 15 mg tablet 15 mg PO DAILY 04/08/20 04/12/20 aripiprazole 2 mg tablet 2 mg PO DAILY 04/08/20 04/12/20 diphenhydramine HCl 25 mg capsule 25 mg PO ONCE cap 04/08/20 04/12/20 escitalopram oxalate 10 mg tablet 10 mg PO DAILY 04/08/20 04/12/20 finasteride 5 mg tablet 5 mg PO DAILY 04/08/20 04/12/20 loratadine 10 mg tablet 10 mg PO DAILY 04/08/20 04/12/20 lorazepam 1 mg tablet mg PO 04/08/20 04/12/20 multivitamin-iron 9 mg-folic acid 1 tab PO DAILY 04/08/20 04/12/20 400 mcg-calcium and minerals tablet nitrofurantoin macrocrystal 50 mg 50 mg PO DAILY 04/08/20 04/12/20 capsule olanzapine 5 mg tablet mg PO 04/08/20 04/12/20 tamsulosin 0.4 mg capsule 0.4 mg PO DAILY 04/08/20 04/12/20 tramadol 50 mg tablet mg PO 04/08/20 04/12/20 carbamazepine 200 mg tablet 400 mg PO BID tab 04/12/20 04/12/20 Previous Rx's Medication Instructions Recorded varenicline 1 mg tablet 1 mg PO BID #56 tab 04/03/20 bethanechol chloride 50 mg tablet 50 mg PO TID #90 tab 05/19/20 atorvastatin 10 mg tablet 10 mg PO DAILY #30 tab 06/07/20 cephalexin [Keflex] 500 mg PO BID #14 cap 06/14/20 Allergies Allergy/AdvReac Type Severity Reaction Status Date / Time No Known Allergies Allergy Unknown UNKNOWN Verified 05/27/20 23:54 [NO KNOWN ALLERGIES] Review of Systems Review of Systems: All other systems are reviewed and are negative Constitutional: Reports as per HPI and Reports no additional constitutional complaints Eyes: Reports as per HPI and Reports no additional eye complaints Reports system reviewed and no additional complaints, except as documented Cardiovascular: Reports as per HPI and Reports no additional cardiovascular complaints Respiratory: Reports as per HPI and Reports no additional respiratory complaints Gastrointestinal: Reports as per HPI and Reports no additional gastrointestinal complaints Genitourinary: Reports no additional female genitourinary complaints Musculoskeletal: Reports no additional musculoskeletal complaints Skin/Breast: Reports system reviewed and no additional complaints, except as docu Psychiatric: Reports no additional psychiatric complaints Endocrine: Reports no additional endocrine complaints Hematologic/Lymphatic: Reports no additional hematologic/lymphatic complaints Allergic/Immunologic: Reports no additional allergic/immunologic complaints Reports system reviewed and no additional complaints, except as documented and Reports Abnormal speech present [facility] Past Medical History Medical History Anxiety Benign prostatic hyperplasia with lower urinary tract symptoms Bipolar 1 disorder Enlarged prostate Mood disorder Pure hypercholesterolemia Right knee injury Schizoaffective disorder, bipolar type Smoker Thought disorder Surgical History History of open reduction and internal fixation (ORIF) procedure History of prostate surgery (~05/03/19) Family History Family History Father Lung cancer BPH (benign prostatic hyperplasia) Mother Dementia Brother Myocardial infarction Social History Social History Alcohol intake: never Smoking Status: Current every day smoker Tobacco Type: Cigarette Advance Directives: No Advance Directives Information Provided: No Physical Exam Vital Signs: Vital Signs: Last Vital Signs Temp 98.8 F 06/13/20 23:45 Pulse 88 06/13/20 23:45 Resp 18 06/13/20 23:45 BP 106/67 06/13/20 23:45 Pulse Ox 97 06/13/20 23:45 Body Mass Index 24.0 Vital signs have been reviewed as normal and appeared to be correct. Blood pressure normal. Heart rate normal. Respiration rate normal. Temperature normal. Oxygen saturation normal. Appearance: Alert. Oriented X3. No acute distress. Head: Normal external exam. Normocephalic. Atraumatic. No [place] signs noted. No raccoon eyes noted Eyes: PERRLA. EOMI. Conjunctiva and sclera normal. Eyelids normal. ENT: EAC normal. TM's Normal. Pharynx normal. Uvula midline. Moist mucous membranes. No trismus noted. No drooling noted. No muffled voice noted. Neck: Normal inspection. Neck supple. FROM. No adenopathy. Thyroid Normal. No meningeal signs. No neck mass noted. CVS: Normal heart rate and rhythm. Heart sound normal. No murmurs noted. Pulses normal throughout. Respiratory: No respiratory distress. Painless inspiration. Breath sounds normal. No wheezes/rales/rhonchi noted. Chest nontender. No accessory muscle usage noted or decreased air movement noted. Abdomen: Soft and nontender. Bowel sounds normal in all 4 quadrants. No distention noted. No organomegaly noted. No visible injury noted. Back: No CVA tenderness. Full range of motion noted. Skin: Skin warm and dry. Normal skin color. Normal skin turgor. No rashes/lesions/lacerations noted. Extremities: No lower extremity edema. Extremities exhibit normal range of motion. Extremities nontender. Neuro: Oriented X 3. No motor deficit. No sensory deficit. Reflexes normal. Course Course Course Narrative: Assessment and plan. 54-year-old male who require self-catheterization occasionally came in concerned because he ran out of catheters at home, patient had post void residual of 560 mL, require self-catheterization in the ED, UA showing mild infection, will discharge him tonight with 1 catheter set until he receives the next shipment. 7 days of keflex [facility] - Male Genitourinary Lab Data Labs: Lab Results 06/14/20 Range/Units 01:23 Urine Color YELLOW Urine Appearance CLEAR Urine pH 7.0 (5.0-8.0) Ur Specific [place] 1.020 (1.005-1.025) Urine Protein NEG (NEG-TRACE) MG/DL Urine Glucose (UA) NEG (NEG) MG/DL Urine Ketones NEG (NEG) MG/DL Urine Blood NEG (NEG) Urine Nitrite NEG (NEG) Ur Leukocyte Esterase TRACE H (NEG) Urine RBC 5-9 H (0) /HPF Urine WBC 5-9 H (0-4) /HPF Ur Squamous Epith Cells 1+ /LPF Ur Renal Epithelial Cell TRACE /LPF Urine Bacteria 1+ /LPF Discharge Plan Discharge Clinical Impression: Acute retention of urine, Acute UTI Patient Disposition: Home, Self-Care Instructions: Urinary Retention in Men (ED), Urinary Tract Infection in Men (ED) Prescriptions: New cephalexin [Keflex] 500 mg capsule 500 mg PO BID Qty: 14 RF: 0 No Action varenicline [Chantix] 1 mg tablet 1 mg PO BID Qty: 56 RF: 0 bethanechol chloride 50 mg tablet 50 mg PO TID Qty: 90 RF: 2 atorvastatin 10 mg tablet 10 mg PO DAILY Qty: 30 RF: 0 lorazepam 1 mg tablet PO RF: 0 escitalopram oxalate 10 mg tablet 10 mg PO DAILY RF: 0 aripiprazole 2 mg tablet 2 mg PO DAILY RF: 0 aripiprazole 15 mg tablet 15 mg PO DAILY RF: 0 finasteride 5 mg tablet 5 mg PO DAILY RF: 0 tamsulosin 0.4 mg capsule 0.4 mg PO DAILY RF: 0 nitrofurantoin macrocrystal 50 mg capsule 50 mg PO DAILY RF: 0 Thera-M 9 mg iron-400 mcg tablet 1 tab PO DAILY RF: 0 Lactobacillus acidophilus 100 mg (1 billion cell) capsule 100 mg PO DAILY RF: 0 olanzapine 5 mg tablet PO RF: 0 tramadol 50 mg tablet PO RF: 0 loratadine [Allergy Relief (loratadine)] 10 mg tablet 10 mg PO DAILY RF: 0 diphenhydramine HCl [Benadryl] 25 mg capsule 25 mg PO ONCE RF: 0 carbamazepine 200 mg tablet 400 mg PO BID RF: 0 Referrals: Lex Sánchez III, MD [Physician] - 2 days
[2020-06-14 01:39] LABS: Glucose Urine UA NEG (NEG); Leukocyte Esterase Urine TRACE (NEG); Nitrite Urine NEG (NEG); Urine Blood NEG (NEG); Urine Ketones NEG (NEG); Urine Protein NEG (NEG-TRACE)
[2020-06-14 01:46] LABS: Appearance Urine CLEAR; Color Urine YELLOW
[2020-06-14 01:57] LABS: Bacteria Urine 1+ /LPF; Renal Epithelial Cells Urine TRACE /LPF; Squamous Epithelial Cell Urine 1+ /LPF
[2020-06-14] MEDS: cephALEXin 500 MG CAPSULE PO (02:30)
== END 2020-06-14 02:25 | disposition home or self-care (01) ==
PROVIDERS: Emergency Provider Emergency Medicine; PCP Internal Medicine
DX: R33.9 Retention of urine, unspecified (principal); N39.0 Urinary tract infection, site not specified
CPT/HCPCS: 51798; 81001; 87086; 99283; 99284

== ENCOUNTER 2020-06-21 02:10 | Emergency (ER) | payer MEDICARE, MEDICAID, SELFPAY ==
--- NOTE | 2020-06-21 02:35 | ED_ITS ---
HPI - Anxiety General Chief Complaint: Psychiatric Symptoms Stated Complaint: Anxiety Time Seen by Provider: 06/21/20 02:25 Source: patient Mode of arrival: ambulatory History of Present Illness HPI narrative: This is a 54-year-old male who comes in with multiple visits and feelings of anxiety and being upset about his halfway. He states that the staff is very rude to him and calls him ?michelle hawley? and he feels that they are trying to push him out of the halfway by being rude to him. He states he has no problem with the police but he ?can not take it anymore?. He denies any suicidal or homicidal ideations at this time and would like to speak with someone. Related Data Home Medications Medication Instructions Recorded Confirmed diphenhydramine HCl 25 mg capsule 25 mg PO DAILY PRN cap 04/08/20 06/21/20 multivitamin-iron 9 mg-folic acid 1 tab PO QAM 04/08/20 06/21/20 400 mcg-calcium and minerals tablet Lactobacillus acidophilus 1 cap PO QAM 06/21/20 06/21/20 aripiprazole 1 tab PO QAM 06/21/20 06/21/20 atorvastatin 10 mg PO BEDTIME 06/21/20 06/21/20 carbamazepine 400 mg PO BID 06/21/20 06/21/20 escitalopram oxalate 1 tab PO QAM 06/21/20 06/21/20 finasteride 1 tab PO QAM 06/21/20 06/21/20 hydroxyzine HCl 1 tab PO TID PRN 06/21/20 06/21/20 lorazepam 1 mg PO BID 06/21/20 06/21/20 lorazepam [Ativan] 0.5 mg PO DAILY 06/21/20 06/21/20 nitrofurantoin macrocrystal 1 cap PO BEDTIME 06/21/20 06/21/20 olanzapine 5 mg PO QAM AND QHS 06/21/20 06/21/20 tamsulosin 1 cap PO BEDTIME 06/21/20 06/21/20 varenicline [Chantix] 1 tab PO BID 06/21/20 06/21/20 Previous Rx's Medication Instructions Recorded bethanechol chloride 50 mg tablet 50 mg PO TID #90 tab 05/19/20 Allergies Allergy/AdvReac Type Severity Reaction Status Date / Time No Known Allergies Allergy Unknown UNKNOWN Verified 05/27/20 23:54 [NO KNOWN ALLERGIES] Review of Systems Review of Systems: Pertinent positives and negatives as stated in HPI 10 point review of systems is otherwise negative. [facility] Past Medical History Source: nursing notes reviewed Medical History Anxiety Benign prostatic hyperplasia with lower urinary tract symptoms Bipolar 1 disorder Enlarged prostate Mood disorder Pure hypercholesterolemia Right knee injury Schizoaffective disorder, bipolar type Smoker Thought disorder Surgical History History of open reduction and internal fixation (ORIF) procedure History of prostate surgery (~05/03/19) Family History Family History Father Lung cancer BPH (benign prostatic hyperplasia) Mother Dementia Brother Myocardial infarction Social History Social History Alcohol intake: never Smoking Status: Never smoker Tobacco Type: Cigarette Advance Directives: No Physical Exam Vital Signs: Vital Signs: Last Vital Signs Temp 98.2 F 06/21/20 02:40 Pulse 96 06/21/20 02:40 Resp 17 06/21/20 02:36 BP 134/78 06/21/20 02:40 Pulse Ox 96 06/21/20 02:40 Body Mass Index 24.0 VITAL SIGNS: Reviewed. GENERAL: Well developed, well nourished, in no acute distress. HEAD: Normocephalic/atraumatic, LUNGS: Normal breath sounds. CARDIOVASCULAR: Regular rate and rhythm without noted murmurs ABDOMEN: Soft, non-tender, non-distended with bowel sounds. NEUROLOGIC: Alert and oriented x 4. PSYCH: flat affect, anxious Course Course Course Narrative: This is a 54-year-old male with history and clinical presentation consistent with multiple visits for concerns regarding his halfway, he wishes to speak with someone and a crisis consult will be placed but this gentleman is voluntary and denies any suicidal or homicidal ideations. Patient is medically cleared for further evaluation by the behavioral team. Sign-out given to Dr. Vazquez MDM - Anxiety Lab Data Labs: Lab Results 06/21/20 06/21/20 Range/Units 02:47 02:47 Urine Color YELLOW Urine Appearance CLEAR Urine pH 6.0 (5.0-8.0) Ur Specific [place] 1.015 (1.005-1.025) Urine Protein NEG (NEG-TRACE) MG/DL Urine Glucose (UA) NEG (NEG) MG/DL Urine Ketones NEG (NEG) MG/DL Urine Blood TRACE (NEG) Urine Nitrite NEG (NEG) Ur Leukocyte Esterase NEG (NEG) Urine RBC 5-9 H (0) /HPF Urine WBC 0-2 (0-4) /HPF Ur Squamous Epith Cells TRACE /LPF Urine Bacteria NONE /LPF Urine Opiates Screen Not Detected (Not Detect) Ur Barbiturates Screen Not Detected (Not Detect) Ur Phencyclidine Scrn Not Detected (Not Detect) Ur Amphetamines Screen Not Detected (Not Detect) U Benzodiazepines Scrn Not Detected (Not Detect) Urine Cocaine Screen Not Detected (Not Detect) U Marijuana (THC) Screen Not Detected (Not Detect) Discharge Plan Discharge Prescriptions: No Action bethanechol chloride 50 mg tablet 50 mg PO TID Qty: 90 RF: 2 nitrofurantoin macrocrystal 50 mg capsule 1 cap PO BEDTIME RF: 0 carbamazepine 200 mg tablet 400 mg PO BID RF: 0 tamsulosin 0.4 mg capsule 1 cap PO BEDTIME RF: 0 lorazepam 1 mg tablet 1 mg PO BID RF: 0 finasteride 5 mg tablet 1 tab PO QAM RF: 0 escitalopram oxalate 10 mg tablet 1 tab PO QAM RF: 0 aripiprazole 20 mg tablet 1 tab PO QAM RF: 0 Chantix 1 mg tablet 1 tab PO BID RF: 0 Lactobacillus acidophilus 100 mg (1 billion cell) capsule 1 cap PO QAM RF: 0 olanzapine 5 mg tablet 5 mg PO QAM AND QHS RF: 0 atorvastatin 10 mg tablet 10 mg PO BEDTIME RF: 0 hydroxyzine HCl 10 mg tablet 1 tab PO TID PRN (Reason: anxiety) RF: 0 lorazepam [Ativan] 0.5 mg Tablet 0.5 mg PO DAILY RF: 0 Thera-M 9 mg iron-400 mcg tablet 1 tab PO QAM RF: 0 diphenhydramine HCl [Benadryl] 25 mg capsule 25 mg PO DAILY PRN (Reason: Anxiety) RF: 0
[2020-06-21 02:36] VITALS: BP 134/78; PULSE 96; RESP 17; TEMP 36.8; O2SAT 96; BMI 24.0
[2020-06-21 02:40] VITALS: BP 134/78; PULSE 96; TEMP 36.8; O2SAT 96
[2020-06-21 02:59] LABS: Glucose Urine UA NEG (NEG); Leukocyte Esterase Urine NEG (NEG); Nitrite Urine NEG (NEG); Specific Gravity - Urine 1.015 (1.005-1.025); Urine Blood TRACE (NEG); Urine Ketones NEG (NEG); Urine Protein NEG (NEG-TRACE)
[2020-06-21 03:03] LABS: Appearance Urine CLEAR; Color Urine YELLOW
[2020-06-21 03:13] LABS: Amphetamine Screen Urine Not Detected (Not Detect); Barbiturates, Urine Not Detected (Not Detect); Benzodiazepines Screen Urine Not Detected (Not Detect); Cannabinoid Screen Urine Not Detected (Not Detect); Cocaine Screen Urine Not Detected (Not Detect); Opiate Screen Urine Not Detected (Not Detect); Phencyclidine Screen Urine Not Detected (Not Detect)
[2020-06-21 03:23] LABS: Squamous Epithelial Cell Urine TRACE /LPF; WBC Urine 0-2 /HPF (0-4)
--- NOTE | 2020-06-21 04:39 | PC.NURSE ---
[facility] called for medication list, [facility] faxed medication list, med recs completed by comparing pharmacy claim history to medication list received from [facility], [facility] faxed/called/spoke with Arlyn/ reported us that if referral is not through [facility] will give us call, patient is currently in bed appears sleeping, no distress observed/reported, respiration +/=/non-labored bilaterally, will continue to monitor.
--- NOTE | 2020-06-21 07:09 | PC.NURSE ---
Report received from DOMINICK Grimes. Pt resting, resp unlabored.
[2020-06-21] MEDS: LORazepam 0.5 MG TABLET PO (08:40)
[2020-06-21] MEDS: OLANZapine 5 MG TABLET PO (08:40)
[2020-06-21] MEDS: carBAMazepine 200 MG TABLET 400 MG PO (08:41)
[2020-06-21] MEDS: LORazepam 1 MG TABLET PO (08:41)
[2020-06-21] MEDS: Escitalopram Oxalate 10 MG TABLET PO (08:41)
--- NOTE | 2020-06-21 08:45 | PC.NURSE ---
Pt awakened, offered breakfast, then meditations. Pt pleasant, affect even, cooperative w/ care.
[2020-06-21 09:09] VITALS: BP 113/75; PULSE 76; TEMP 36.4; O2SAT 93
--- NOTE | 2020-06-21 09:13 | PC.NURSE ---
Pt awake, asking reL: disposition. Pt aware that [facility] is here and will be seeing him shortly. No further concerns reported.
--- NOTE | 2020-06-21 09:29 | PC.NURSE ---
[facility] in to evaluate pt.
[2020-06-21] MEDS: Bethanechol Chloride 25 MG TABLET 50 MG PO (09:36)
[2020-06-21] MEDS: ARIPiprazole 20 MG TABLET PO (09:38)
[2020-06-21] MEDS: Finasteride 5 MG TABLET PO (09:39)
--- NOTE | 2020-06-21 09:44 | PC.NURSE ---
Pt awaiting dispo- pt w/ occasional cough, reported to Duy Johnson. Pt reports he was tested for COVID 4 days ago, states the results were negative, and that he has had the cough for a few days. No further orders at this time.
[2020-06-21 10:00] VITALS: RESP 20
== END 2020-06-21 10:08 | disposition home or self-care (01) ==
PROVIDERS: Emergency Provider Student in an Organized Health Care Education/Training Program; PCP Internal Medicine
DX: F41.9 Anxiety disorder, unspecified (principal); F41.1 Generalized anxiety disorder; F43.0 Acute stress reaction; Z79.899 Other long term (current) drug therapy
CPT/HCPCS: 80307; 81001; 81003; 99284

== ENCOUNTER 2020-06-28 01:56 | Emergency (ER) | payer MEDICARE, MEDICAID, SELFPAY ==
--- NOTE | 2020-06-28 01:58 | ED.PSYCH ---
HPI - Psych General Chief Complaint: Urogenital-Male Stated Complaint: anxiety Time Seen by Provider: 06/28/20 01:58 Source: patient Mode of arrival: ambulatory Limitations: no limitations History of Present Illness HPI Narrative: I'm going pee a lot when I drink fluids I can't get a hold of my Urologist I am on a lot of medications I have 400 when I cath myself, that seems like a lot, maybe my prostate is swollen. completed antibiotics cephelaxin for UTI on 06/21/20 MD complaint: anxiety Onset (ago): day(s) (2) Duration: intermittent History of same: Yes Relieving factors: none Exacerbating factors: none Associated psychiatric symptoms: none Associated symptoms: denies other symptoms Treatments prior to arrival: none Related Data Home Medications Medication Instructions Recorded Confirmed diphenhydramine HCl 25 mg capsule 25 mg PO DAILY PRN cap 04/08/20 06/21/20 Lactobacillus acidophilus 1 cap PO QAM 06/21/20 06/21/20 aripiprazole 1 tab PO QAM 06/21/20 06/21/20 atorvastatin 10 mg PO BEDTIME 06/21/20 06/21/20 carbamazepine 400 mg PO BID 06/21/20 06/21/20 escitalopram oxalate 1 tab PO QAM 06/21/20 06/21/20 finasteride 1 tab PO QAM 06/21/20 06/21/20 hydroxyzine HCl 1 tab PO TID PRN 06/21/20 06/21/20 lorazepam 1 mg PO BID 06/21/20 06/21/20 lorazepam [Ativan] 0.5 mg PO DAILY 06/21/20 06/21/20 nitrofurantoin macrocrystal 1 cap PO BEDTIME 06/21/20 06/21/20 olanzapine 5 mg PO QAM AND QHS 06/21/20 06/21/20 tamsulosin 1 cap PO BEDTIME 06/21/20 06/21/20 varenicline [Chantix] 1 tab PO BID 06/21/20 06/21/20 Previous Rx's Medication Instructions Recorded bethanechol chloride 50 mg tablet 50 mg PO TID #90 tab 05/19/20 multivitamin-iron 9 mg-folic acid 1 tab PO DAILY #30 tab 06/22/20 400 mcg-calcium and minerals tablet Allergies Allergy/AdvReac Type Severity Reaction Status Date / Time No Known Allergies Allergy Unknown UNKNOWN Verified 05/27/20 23:54 [NO KNOWN ALLERGIES] Review of Systems Review of Systems: Constitutional : No Fever, No Chills ENT/Mouth : No Ear Pain, No Nasal Congestion, No sore throat Eyes: No Eye Pain, No Swelling, No Redness Cardiovascular : No Chest Pain, No SOB Respiratory : No Cough, No Sputum, No Dyspnea Gastrointestinal : No Nausea, No Vomiting, No Diarrhea Genitourinary : No Dysuria, pos Urinary Frequency, No Hematuria Musculoskeletal : No Myalgias Skin : No Skin Lesions, No rash Neuro : No Weakness, No Numbness, No Paresthesias, No Dizziness, No Headache Psych : positive Anxiety, positive Depression, no SI/HI PMFSH Past Medical History Attestation statement: The following information was validated with the patient. Medical History Anxiety Benign prostatic hyperplasia with lower urinary tract symptoms Bipolar 1 disorder Enlarged prostate Mood disorder Pure hypercholesterolemia Right knee injury Schizoaffective disorder, bipolar type Smoker Thought disorder Surgical History History of open reduction and internal fixation (ORIF) procedure History of prostate surgery (~05/03/19) Family History Family History Father Lung cancer BPH (benign prostatic hyperplasia) Mother Dementia Brother Myocardial infarction Social History Social History Alcohol intake: never Smoking Status: Never smoker Tobacco Type: Cigarette Advance Directives: No Advance Directives Information Provided: No Physical Exam Vital Signs: Vital Signs: Last Vital Signs Temp 98.0 F 06/28/20 02:11 Pulse 92 06/28/20 02:11 Resp 16 06/28/20 02:11 BP 121/86 06/28/20 02:11 Pulse Ox 98 06/28/20 02:11 Body Mass Index 24.3 Appearance: Alert. Oriented X3. No acute distress. Anxious Eyes: Pupils equal, round and reactive to light. ENT: Pharynx normal. Neck: Normal inspection. Neck supple. CVS: Normal heart rate and rhythm. Pulses normal. Respiratory: No respiratory distress. Breath sounds normal. Abdomen: Soft and nontender. Skin: Skin warm and dry. Normal skin color. Normal skin turgor. Extremities: No lower extremity edema. No calf ttp Neuro: Oriented X 3. No motor deficit. No sensory deficit. Psych: pos anxiety, no SI/HI Course Course Course Narrative: urine negative, yeast noted but patient has had yeast on last UA as well that didn't grow organisms MDM - Psych MDM Narrative Medical decision making narrative: 54yo male frequent visits to ED for anxiety related to his long term not understanding me no SI/HI, does not need to see [facility], will allow him to rest in the ED until he feels calm enough to go back to long term, patient also c/o having a lot of urine when he catheterizes himself he has no fevers or back pain - will obtain UA sample Lab Data Labs: Lab Results 06/28/20 Range/Units 02:16 Urine Color YELLOW Urine Appearance CLEAR Urine pH 6.0 (5.0-8.0) Ur Specific [place] 1.020 (1.005-1.025) Urine Protein NEG (NEG-TRACE) MG/DL Urine Glucose (UA) NEG (NEG) MG/DL Urine Ketones NEG (NEG) MG/DL Urine Blood TRACE (NEG) Urine Nitrite NEG (NEG) Ur Leukocyte Esterase NEG (NEG) Urine RBC 1-4 (0) /HPF Urine WBC 1-4 (0-4) /HPF Ur Squamous Epith Cells 1+ /LPF Urine Bacteria 1+ /LPF Discharge Plan Discharge Clinical Impression: Anxiety Patient Disposition: Home, Self-Care Instructions: Anxiety (ED) Additional Instructions: return to ED for any worsening symptoms or concerns your urine did not have an infection Prescriptions: No Action bethanechol chloride 50 mg tablet 50 mg PO TID Qty: 90 RF: 2 tzaxqhqt-fpsq-EQ-calcium-mins [Thera-M] 9 mg iron-400 mcg tablet 1 tab PO DAILY Qty: 30 RF: 6 nitrofurantoin macrocrystal 50 mg capsule 1 cap PO BEDTIME RF: 0 carbamazepine 200 mg tablet 400 mg PO BID RF: 0 tamsulosin 0.4 mg capsule 1 cap PO BEDTIME RF: 0 lorazepam 1 mg tablet 1 mg PO BID RF: 0 finasteride 5 mg tablet 1 tab PO QAM RF: 0 escitalopram oxalate 10 mg tablet 1 tab PO QAM RF: 0 aripiprazole 20 mg tablet 1 tab PO QAM RF: 0 Chantix 1 mg tablet 1 tab PO BID RF: 0 Lactobacillus acidophilus 100 mg (1 billion cell) capsule 1 cap PO QAM RF: 0 olanzapine 5 mg tablet 5 mg PO QAM AND QHS RF: 0 atorvastatin 10 mg tablet 10 mg PO BEDTIME RF: 0 hydroxyzine HCl 10 mg tablet 1 tab PO TID PRN (Reason: anxiety) RF: 0 lorazepam [Ativan] 0.5 mg Tablet 0.5 mg PO DAILY RF: 0 diphenhydramine HCl [Benadryl] 25 mg capsule 25 mg PO DAILY PRN (Reason: Anxiety) RF: 0 Referrals: Lex Sánchez III, MD [Physician] - 1 week
[2020-06-28 02:11] VITALS: BP 121/86; PULSE 92; RESP 16; TEMP 36.7; O2SAT 98; BMI 24.3
[2020-06-28 02:22] LABS: Appearance Urine CLEAR; Color Urine YELLOW; Glucose Urine UA NEG (NEG); Leukocyte Esterase Urine NEG (NEG); Nitrite Urine NEG (NEG); Urine Blood TRACE (NEG); Urine Ketones NEG (NEG); Urine Protein NEG (NEG-TRACE)
[2020-06-28 02:28] LABS: Bacteria Urine 1+ /LPF; Squamous Epithelial Cell Urine 1+ /LPF
== END 2020-06-28 02:51 | disposition home or self-care (01) ==
PROVIDERS: Emergency Provider Emergency Medicine; PCP Internal Medicine
DX: F41.1 Generalized anxiety disorder (principal); F43.0 Acute stress reaction; Z79.899 Other long term (current) drug therapy
CPT/HCPCS: 81001; 99283

== ENCOUNTER 2020-07-03 21:29 | Emergency (ER) | payer MEDICARE, MEDICAID, SELFPAY ==
[2020-07-03 21:43] VITALS: BP 125/80; PULSE 68; RESP 18; TEMP 36.6; O2SAT 98; BMI 25.5
[2020-07-03 21:45] VITALS: BP 125/80; PULSE 68; RESP 18; TEMP 36.6; O2SAT 98
--- NOTE | 2020-07-03 22:10 | ED.ANXIETY ---
HPI - Anxiety General Chief Complaint: Anxiety Stated Complaint: Anxiety Source: patient Mode of arrival: ambulatory Limitations: no limitations History of Present Illness HPI narrative: 54-year-old male with past medical history of schizoaffective disorder, anxiety, BPH, neurogenic bladder, hypercholesterolemia, and depression presents with anxiety related to social issues with roommates and house staff. Patient does not report any suicidal or homicidal ideation, and denies any physical complaints at this time. MD complaint: anxiety Onset (ago): unknown Severity: moderate Quality: constant Place: home History of similar episodes: Yes Provoking factors: emotional stress Relieving factors: nothing Exacerbating factors: thinking about event Associated symptoms: denies other symptoms Related Data Home Medications Medication Instructions Recorded Confirmed diphenhydramine HCl 25 mg capsule 25 mg PO DAILY PRN cap 04/08/20 06/21/20 Lactobacillus acidophilus 1 cap PO QAM 06/21/20 06/21/20 aripiprazole 1 tab PO QAM 06/21/20 06/21/20 atorvastatin 10 mg PO BEDTIME 06/21/20 06/21/20 carbamazepine 400 mg PO BID 06/21/20 06/21/20 escitalopram oxalate 1 tab PO QAM 06/21/20 06/21/20 finasteride 1 tab PO QAM 06/21/20 06/21/20 hydroxyzine HCl 1 tab PO TID PRN 06/21/20 06/21/20 lorazepam 1 mg PO BID 06/21/20 06/21/20 lorazepam [Ativan] 0.5 mg PO DAILY 06/21/20 06/21/20 nitrofurantoin macrocrystal 1 cap PO BEDTIME 06/21/20 06/21/20 olanzapine 5 mg PO QAM AND QHS 06/21/20 06/21/20 tamsulosin 1 cap PO BEDTIME 06/21/20 06/21/20 varenicline [Chantix] 1 tab PO BID 06/21/20 06/21/20 Previous Rx's Medication Instructions Recorded bethanechol chloride 50 mg tablet 50 mg PO TID #90 tab 05/19/20 multivitamin-iron 9 mg-folic acid 1 tab PO DAILY #30 tab 06/22/20 400 mcg-calcium and minerals tablet Allergies Allergy/AdvReac Type Severity Reaction Status Date / Time No Known Allergies Allergy Unknown UNKNOWN Verified 05/27/20 23:54 [NO KNOWN ALLERGIES] Review of Systems Review of Systems: Constitutional: No Fever, No Chills ENT/Mouth: No Ear Pain, No Nasal Congestion, No sore throat Eyes: No Eye Pain, No Swelling, No Redness Cardiovascular: No Chest Pain, No SOB Respiratory: No Cough, No Sputum, No Dyspnea Gastrointestinal: No Nausea, No Vomiting, No Diarrhea, No Hematochezia, No Melena Genitourinary: No Dysuria, No Urinary Frequency, No Hematuria Musculoskeletal: No Myalgias Skin: No Skin Lesions, No rash Neuro: No Weakness, No Numbness, No Paresthesias, No Dizziness, No Headache Psych: positive Anxiety, positive Depression, no SI/HI Heme/Lymph: No Lymphadenopathy Endocrine: No Polyuria, No Polydipsia Yes all other systems are reviewed and are negative [facility] Past Medical History Attestation statement: The following information was validated with the patient. Source: old records reviewed Medical History Anxiety Benign prostatic hyperplasia with lower urinary tract symptoms Bipolar 1 disorder Enlarged prostate Mood disorder Pure hypercholesterolemia Right knee injury Schizoaffective disorder, bipolar type Smoker Thought disorder Surgical History History of open reduction and internal fixation (ORIF) procedure History of prostate surgery (~05/03/19) Family History Family History Father Lung cancer BPH (benign prostatic hyperplasia) Mother Dementia Brother Myocardial infarction Social History Social History Alcohol intake: never Smoking Status: Never smoker Tobacco Type: Cigarette Advance Directives: No Advance Directives Information Provided: No Physical Exam Vital Signs: Vital Signs: Last Vital Signs Temp 97.9 F 07/03/20 21:45 Pulse 68 07/03/20 21:45 Resp 16 07/04/20 00:29 BP 125/80 07/03/20 21:45 Pulse Ox 98 07/03/20 21:45 Body Mass Index 25.5 Appearance: Alert. Oriented X3. No acute distress. Eyes: Pupils equal, round and reactive to light. ENT: Pharynx normal. Neck: Normal inspection. Neck supple. CVS: Normal heart rate and rhythm. Pulses normal. Respiratory: No respiratory distress. Breath sounds normal. Abdomen: Soft and nontender. Skin: Skin warm and dry. Normal skin color. Normal skin turgor. Extremities: No lower extremity edema. Neuro: No motor deficit. No sensory deficit. Course Course Course Narrative: 54-year-old male presents with anxiety related to living situation. Patient presents to the facility at least once a week for similar circumstances. Does not report any physical complaints at this time. Plan of care is to discharge patient once he is ready to return to home. MDM - Anxiety Differential Diagnosis Differential diagnosis: Likely panic disorder and acute anxiety Medical Records Attestation: I reviewed the patient's medical records. Lab Data Attestation: I reviewed the patient's lab results. Labs: Lab Results 07/03/20 07/03/20 Range/Units 22:09 22:09 Urine Color YELLOW Urine Appearance CLEAR Urine pH 6.5 (5.0-8.0) Ur Specific [place] 1.015 (1.005-1.025) Urine Protein NEG (NEG-TRACE) MG/DL Urine Glucose (UA) NEG (NEG) MG/DL Urine Ketones NEG (NEG) MG/DL Urine Blood TRACE (NEG) Urine Nitrite NEG (NEG) Ur Leukocyte Esterase TRACE H (NEG) Urine RBC 1-4 (0) /HPF Urine WBC 1-4 (0-4) /HPF Ur Squamous Epith Cells TRACE /LPF Urine Bacteria NONE /LPF Urine Mucus TRACE /LPF Urine Opiates Screen Not Detected (Not Detect) Ur Barbiturates Screen Not Detected (Not Detect) Ur Phencyclidine Scrn Not Detected (Not Detect) Ur Amphetamines Screen Not Detected (Not Detect) U Benzodiazepines Scrn Not Detected (Not Detect) Urine Cocaine Screen Not Detected (Not Detect) U Marijuana (THC) Screen Not Detected (Not Detect) Discharge Plan Discharge Clinical Impression: Anxiety, Schizoaffective disorder, bipolar type Patient Disposition: Home, Self-Care Instructions: Anxiety (ED) Additional Instructions: Please follow-up with outpatient psychiatry as scheduled. Thank you for choosing this emergency department for evaluation. Please follow-up with primary care physician as needed. Return to the emergency department for any new, concerning, or worsening symptoms. Prescriptions: No Action bethanechol chloride 50 mg tablet 50 mg PO TID Qty: 90 RF: 2 lhgovhdf-qinu-IY-calcium-mins [Thera-M] 9 mg iron-400 mcg tablet 1 tab PO DAILY Qty: 30 RF: 6 nitrofurantoin macrocrystal 50 mg capsule 1 cap PO BEDTIME RF: 0 carbamazepine 200 mg tablet 400 mg PO BID RF: 0 tamsulosin 0.4 mg capsule 1 cap PO BEDTIME RF: 0 lorazepam 1 mg tablet 1 mg PO BID RF: 0 finasteride 5 mg tablet 1 tab PO QAM RF: 0 escitalopram oxalate 10 mg tablet 1 tab PO QAM RF: 0 aripiprazole 20 mg tablet 1 tab PO QAM RF: 0 Chantix 1 mg tablet 1 tab PO BID RF: 0 Lactobacillus acidophilus 100 mg (1 billion cell) capsule 1 cap PO QAM RF: 0 olanzapine 5 mg tablet 5 mg PO QAM AND QHS RF: 0 atorvastatin 10 mg tablet 10 mg PO BEDTIME RF: 0 hydroxyzine HCl 10 mg tablet 1 tab PO TID PRN (Reason: anxiety) RF: 0 lorazepam [Ativan] 0.5 mg Tablet 0.5 mg PO DAILY RF: 0 diphenhydramine HCl [Benadryl] 25 mg capsule 25 mg PO DAILY PRN (Reason: Anxiety) RF: 0
[2020-07-03 22:38] LABS: Amphetamine Screen Urine Not Detected (Not Detect); Barbiturates, Urine Not Detected (Not Detect); Benzodiazepines Screen Urine Not Detected (Not Detect); Cannabinoid Screen Urine Not Detected (Not Detect); Cocaine Screen Urine Not Detected (Not Detect); Opiate Screen Urine Not Detected (Not Detect); Phencyclidine Screen Urine Not Detected (Not Detect)
[2020-07-03 23:25] LABS: Glucose Urine UA NEG (NEG); Leukocyte Esterase Urine TRACE (NEG); Nitrite Urine NEG (NEG); PH 6.5 (5.0-8.0); Specific Gravity - Urine 1.015 (1.005-1.025); Urine Blood TRACE (NEG); Urine Ketones NEG (NEG); Urine Protein NEG (NEG-TRACE)
[2020-07-03 23:32] LABS: Appearance Urine CLEAR; Color Urine YELLOW
[2020-07-04 00:29] VITALS: RESP 16
[2020-07-04 01:14] LABS: Mucus Urine TRACE /LPF; Squamous Epithelial Cell Urine TRACE /LPF
--- NOTE | 2020-07-04 03:41 | PC.NURSE ---
BACK IN BED AFTER USING COMMODE. SMALL AMOUNT OF BLEEDING NOTED FROM UMBILICUS. BLEEDING ALREADY STOPPED BY TIME PATIENT WAS BACK IN BED. REQUESTING CLONIDINE.
[2020-07-04 04:00] VITALS: RESP 14
== END 2020-07-04 06:42 | disposition home or self-care (01) ==
PROVIDERS: Nurse Practitioner Family; Emergency Provider Internal Medicine; PCP Internal Medicine
DX: F41.1 Generalized anxiety disorder (principal); F43.0 Acute stress reaction; F25.0 Schizoaffective disorder, bipolar type; Z79.899 Other long term (current) drug therapy
CPT/HCPCS: 36415; 80307; 81001; 99284

== ENCOUNTER 2020-07-12 00:05 | Emergency (ER) | payer MEDICARE, MEDICAID, SELFPAY ==
[2020-07-12 00:15] VITALS: BP 115/67; PULSE 84; RESP 18; TEMP 36.6; O2SAT 97; BMI 24.3
--- NOTE | 2020-07-12 01:21 | ED_ITS ---
HPI - Ear Problem General Chief complaint: Ear Problems Stated complaint: Ear pain Time Seen by Provider: 07/12/20 01:20 Source: patient Mode of arrival: ambulatory Limitations: no limitations History of Present Illness HPI Narrative: Patient feels right ear block for last few days no pain decreased hearing no history of trauma Complaint: decreased hearing Location: right ear Related Data Home Medications Medication Instructions Recorded Confirmed diphenhydramine HCl 25 mg capsule 25 mg PO DAILY PRN cap 04/08/20 06/21/20 Lactobacillus acidophilus 1 cap PO QAM 06/21/20 06/21/20 aripiprazole 1 tab PO QAM 06/21/20 06/21/20 atorvastatin 10 mg PO BEDTIME 06/21/20 06/21/20 carbamazepine 400 mg PO BID 06/21/20 06/21/20 escitalopram oxalate 1 tab PO QAM 06/21/20 06/21/20 finasteride 1 tab PO QAM 06/21/20 06/21/20 hydroxyzine HCl 1 tab PO TID PRN 06/21/20 06/21/20 lorazepam 1 mg PO BID 06/21/20 06/21/20 lorazepam [Ativan] 0.5 mg PO DAILY 06/21/20 06/21/20 nitrofurantoin macrocrystal 1 cap PO BEDTIME 06/21/20 06/21/20 olanzapine 5 mg PO QAM AND QHS 06/21/20 06/21/20 tamsulosin 1 cap PO BEDTIME 06/21/20 06/21/20 varenicline [Chantix] 1 tab PO BID 06/21/20 06/21/20 Previous Rx's Medication Instructions Recorded bethanechol chloride 50 mg tablet 50 mg PO TID #90 tab 05/19/20 multivitamin-iron 9 mg-folic acid 1 tab PO DAILY #30 tab 06/22/20 400 mcg-calcium and minerals tablet Allergies Allergy/AdvReac Type Severity Reaction Status Date / Time No Known Allergies Allergy Unknown UNKNOWN Verified 05/27/20 23:54 [NO KNOWN ALLERGIES] Review of Systems Review of Systems: Yes all other systems are reviewed and are negative [facility] Past Medical History Medical History Anxiety Benign prostatic hyperplasia with lower urinary tract symptoms Bipolar 1 disorder Enlarged prostate Mood disorder Pure hypercholesterolemia Right knee injury Schizoaffective disorder, bipolar type Smoker Thought disorder Surgical History History of open reduction and internal fixation (ORIF) procedure History of prostate surgery (~05/03/19) Family History Family History Father Lung cancer BPH (benign prostatic hyperplasia) Mother Dementia Brother Myocardial infarction Social History Social History Alcohol intake: never Smoking Status: Never smoker Tobacco Type: Cigarette Advance Directives: No Advance Directives Information Provided: No Physical Exam Vital Signs: Vital Signs: Last Vital Signs Temp 97.9 F 07/12/20 00:15 Pulse 84 07/12/20 00:15 Resp 18 07/12/20 00:15 BP 115/67 07/12/20 00:15 Pulse Ox 97 07/12/20 00:15 Body Mass Index 24.3 Const: General: no acute distress HENMT: Head: Yes normocephalic Ears: external ears normal, TM normal on the left, Abnormal EAC present (Right ear) cerumen impaction and hearing grossly impaired on the right General nose exam: Normal external nose present Course Course Course Narrative: After wax removal patient is able to hear normally on both sides tympanic membrane intact Procedures Ear Wax Removal Right Ear: Cerumenolytic Used: other (Water irrigation) Results: Re-examined: cerumen removed completely TM Examination: TM(s) intact, normal appearance Ear Canal Exam: atraumatic Patient Tolerated Procedure: well Complications: no problems Technique: ear canal irrigated Discharge Plan Discharge Clinical Impression: Impacted ear wax Qualifiers: Laterality: right Qualified Code(s): H61.21 - Impacted cerumen, right ear Patient Disposition: Home, Self-Care Instructions: Ear Foreign Body (ED) Additional Instructions: LOCAL CARE OF EAR ADVISED Prescriptions: No Action bethanechol chloride 50 mg tablet 50 mg PO TID Qty: 90 RF: 2 zhxyfksz-hffv-ON-calcium-mins [Thera-M] 9 mg iron-400 mcg tablet 1 tab PO DAILY Qty: 30 RF: 6 nitrofurantoin macrocrystal 50 mg capsule 1 cap PO BEDTIME RF: 0 carbamazepine 200 mg tablet 400 mg PO BID RF: 0 tamsulosin 0.4 mg capsule 1 cap PO BEDTIME RF: 0 lorazepam 1 mg tablet 1 mg PO BID RF: 0 finasteride 5 mg tablet 1 tab PO QAM RF: 0 escitalopram oxalate 10 mg tablet 1 tab PO QAM RF: 0 aripiprazole 20 mg tablet 1 tab PO QAM RF: 0 Chantix 1 mg tablet 1 tab PO BID RF: 0 Lactobacillus acidophilus 100 mg (1 billion cell) capsule 1 cap PO QAM RF: 0 olanzapine 5 mg tablet 5 mg PO QAM AND QHS RF: 0 atorvastatin 10 mg tablet 10 mg PO BEDTIME RF: 0 hydroxyzine HCl 10 mg tablet 1 tab PO TID PRN (Reason: anxiety) RF: 0 lorazepam [Ativan] 0.5 mg Tablet 0.5 mg PO DAILY RF: 0 diphenhydramine HCl [Benadryl] 25 mg capsule 25 mg PO DAILY PRN (Reason: Anxiety) RF: 0
== END 2020-07-12 01:41 | disposition home or self-care (01) ==
PROVIDERS: Emergency Provider Internal Medicine; PCP Internal Medicine
DX: H61.21 Impacted cerumen, right ear (principal)
CPT/HCPCS: 69209; 99283

== ENCOUNTER 2020-07-16 15:38 | Emergency (ER) | payer MEDICARE, MEDICAID, SELFPAY ==
[2020-07-16 15:51] VITALS: BP 128/70; PULSE 88; RESP 16; TEMP 36.8; O2SAT 98; BMI 25.0
--- NOTE | 2020-07-16 16:00 | ED_ITS ---
HPI - Psych General Chief Complaint: Psychiatric Symptoms Stated Complaint: CRISIS Time Seen by Provider: 07/16/20 15:55 History of Present Illness HPI Narrative: Patient complains of stress at living in his custodial and feeling like he can not live there anymore because he feels people are abusive to him by making bad comments, he denies any suicidal or homicidal thoughts and says he does not hear any voices, he does not abuse any street drugs or alcohol Related Data Home Medications Medication Instructions Recorded Confirmed diphenhydramine HCl 25 mg capsule 25 mg PO DAILY PRN cap 04/08/20 07/19/20 Lactobacillus acidophilus 1 cap PO QAM 06/21/20 07/19/20 aripiprazole 1 tab PO QAM 06/21/20 07/19/20 atorvastatin 10 mg PO BEDTIME 06/21/20 07/19/20 carbamazepine 400 mg PO BID 06/21/20 07/19/20 escitalopram oxalate 1 tab PO QAM 06/21/20 07/19/20 finasteride 1 tab PO QAM 06/21/20 07/19/20 hydroxyzine HCl 1 tab PO TID PRN 06/21/20 07/19/20 lorazepam 1 mg PO BID 06/21/20 07/19/20 lorazepam [Ativan] 0.5 mg PO DAILY 06/21/20 07/19/20 nitrofurantoin macrocrystal 1 cap PO BEDTIME 06/21/20 07/19/20 olanzapine 5 mg PO QAM AND QHS 06/21/20 07/19/20 tamsulosin 1 cap PO BEDTIME 06/21/20 07/19/20 varenicline [Chantix] 1 tab PO BID 06/21/20 07/19/20 Previous Rx's Medication Instructions Recorded bethanechol chloride 50 mg tablet 50 mg PO TID #90 tab 05/19/20 multivitamin-iron 9 mg-folic acid 1 tab PO DAILY #30 tab 06/22/20 400 mcg-calcium and minerals tablet Allergies Allergy/AdvReac Type Severity Reaction Status Date / Time No Known Allergies Allergy Unknown UNKNOWN Verified 05/27/20 23:54 [NO KNOWN ALLERGIES] Review of Systems Review of Systems: There is no headache no dizziness no weakness no fever no chills no chest pain no cough no sore throat no abdominal pain no nausea no vomiting no dizziness no skin rash PMFSH Past Medical History Source: nursing notes reviewed Medical History Anxiety Benign prostatic hyperplasia with lower urinary tract symptoms Bipolar 1 disorder Enlarged prostate Mood disorder Pure hypercholesterolemia Right knee injury Schizoaffective disorder, bipolar type Smoker Thought disorder Surgical History History of open reduction and internal fixation (ORIF) procedure History of prostate surgery (~05/03/19) Family History Family History Father Lung cancer BPH (benign prostatic hyperplasia) Mother Dementia Brother Myocardial infarction Social History Social History Alcohol intake: never Smoking Status: Current every day smoker Tobacco Type: Cigarette Advance Directives: No Advance Directives Information Provided: Yes Physical Exam Vital Signs: Vital Signs: Last Vital Signs Temp 98.2 F 07/16/20 15:51 Pulse 78 07/16/20 17:43 Resp 16 07/16/20 15:51 BP 128/70 07/16/20 15:51 Pulse Ox 98 07/16/20 17:43 Body Mass Index 25.0 General appearance is no acute distress, comfortable relaxed and cooperative Head normocephalic atraumatic Neck is supple Pharynx is clear The chest is clear to auscultation bilaterally Heart rate and rhythm regular no murmur Abdomen soft nontender Extremities for range of motion x4 neuro no motor deficit, speech is normal, no facial asymmetry Course Course Course Narrative: Patient feels less stressed now, given Ativan, spoke to swat team and is ready to go back to custodial and does not feel aggressive or angry now Discharge Plan Discharge Clinical Impression: Anxiety Patient Disposition: Home, Self-Care Additional Instructions: Return to custodial, follow with your psychiatrist and Dr. Berg any concerns Prescriptions: No Action bethanechol chloride 50 mg tablet 50 mg PO TID Qty: 90 RF: 2 apkhqnjg-vezc-UI-calcium-mins [Thera-M] 9 mg iron-400 mcg tablet 1 tab PO DAILY Qty: 30 RF: 6 nitrofurantoin macrocrystal 50 mg capsule 1 cap PO BEDTIME RF: 0 carbamazepine 200 mg tablet 400 mg PO BID RF: 0 tamsulosin 0.4 mg capsule 1 cap PO BEDTIME RF: 0 lorazepam 1 mg tablet 1 mg PO BID RF: 0 finasteride 5 mg tablet 1 tab PO QAM RF: 0 escitalopram oxalate 10 mg tablet 1 tab PO QAM RF: 0 aripiprazole 20 mg tablet 1 tab PO QAM RF: 0 Chantix 1 mg tablet 1 tab PO BID RF: 0 Lactobacillus acidophilus 100 mg (1 billion cell) capsule 1 cap PO QAM RF: 0 olanzapine 5 mg tablet 5 mg PO QAM AND QHS RF: 0 atorvastatin 10 mg tablet 10 mg PO BEDTIME RF: 0 hydroxyzine HCl 10 mg tablet 1 tab PO TID PRN (Reason: anxiety) RF: 0 lorazepam [Ativan] 0.5 mg Tablet 0.5 mg PO DAILY RF: 0 diphenhydramine HCl [Benadryl] 25 mg capsule 25 mg PO DAILY PRN (Reason: Anxiety) RF: 0 Interventions: ED Discharge Assessment Last Done: 07/16/20 17:55 Discharge Date/Time: 07/16/20 17:56
[2020-07-16 17:43] VITALS: PULSE 78; O2SAT 98
[2020-07-16] MEDS: LORazepam 1 MG TABLET PO (17:53)
--- NOTE | 2020-07-16 17:53 | PC.NURSE ---
barcode unable to scan, verified by kamron almonte med was given had to manual put it in
--- NOTE | 2020-07-16 18:24 | MHC.CARE ---
CARE Team meets with pt, who appears anxious and presents with baseline paranoid thinking. He identifies that he is not being treated fairly at his [facility] and he wants [facility] to call [facility]. CARE Team speaks with Elena from [facility] and she reports that this is pt's baseline and they do not feel that he is in crisis. CARE Team speaks with Elena about respite admission. She identifies that he historically does not do well in respite and often leaves within a couple of hours. clam bed worker speaks with provider[facility] Team arranges transport back to [facility], and per pt's behavior plan, he will self pay for cab. [facility] notified and in agreement with plan.
== END 2020-07-16 17:56 | disposition home or self-care (01) ==
PROVIDERS: Emergency Provider Emergency Medicine; PCP Internal Medicine
DX: F41.1 Generalized anxiety disorder (principal); F43.0 Acute stress reaction; F17.210 Nicotine dependence, cigarettes, uncomplicated; Z79.899 Other long term (current) drug therapy; Z71.6 Tobacco abuse counseling
CPT/HCPCS: 99284

== ENCOUNTER 2020-07-19 16:13 | Emergency (ER) | payer MEDICARE, MEDICAID, SELFPAY ==
[2020-07-19 16:21] VITALS: BP 112/79; PULSE 81; RESP 18; TEMP 36.2; O2SAT 97; BMI 24.5
[2020-07-19 17:09] LABS: Glucose Urine UA NEG (NEG); Leukocyte Esterase Urine NEG (NEG); Nitrite Urine NEG (NEG); PH 5.5 (5.0-8.0); Specific Gravity - Urine 1.015 (1.005-1.025); Urine Blood NEG (NEG); Urine Ketones NEG (NEG); Urine Protein NEG (NEG-TRACE)
[2020-07-19 17:13] LABS: Appearance Urine CLEAR; Color Urine YELLOW
[2020-07-19 17:20] LABS: Amphetamine Screen Urine Not Detected (Not Detect); Barbiturates, Urine Not Detected (Not Detect); Benzodiazepines Screen Urine Not Detected (Not Detect); Cannabinoid Screen Urine Not Detected (Not Detect); Cocaine Screen Urine Not Detected (Not Detect); Opiate Screen Urine Not Detected (Not Detect); Phencyclidine Screen Urine Not Detected (Not Detect)
[2020-07-19 17:21] VITALS: BP 112/79; PULSE 81; RESP 18; TEMP 36.2; O2SAT 97
--- NOTE | 2020-07-19 17:26 | ED_ITS ---
HPI - Psych General Chief Complaint: Psychiatric Symptoms Stated Complaint: crisis Time Seen by Provider: 07/19/20 17:26 Source: patient Mode of arrival: ambulatory Limitations: no limitations History of Present Illness HPI Narrative: 54-year-old male coming from a [facility]-way with a past medical history of schizoaffective disease, anxiety, BPH, bipolar disease with complaints of feeling like there is a lot going on at his half-way. Tells me there is a lot of people there and they do not understand him very well. He feels that they do not understand his mental illness. He tells me he does not feel safe there because of this. Denies SI or HI. Denies hallucinations. Feeling very anxious. Related Data Home Medications Medication Instructions Recorded Confirmed diphenhydramine HCl 25 mg capsule 25 mg PO DAILY PRN cap 04/08/20 07/19/20 Lactobacillus acidophilus 1 cap PO QAM 06/21/20 07/19/20 aripiprazole 1 tab PO QAM 06/21/20 07/19/20 atorvastatin 10 mg PO BEDTIME 06/21/20 07/19/20 carbamazepine 400 mg PO BID 06/21/20 07/19/20 escitalopram oxalate 1 tab PO QAM 06/21/20 07/19/20 finasteride 1 tab PO QAM 06/21/20 07/19/20 hydroxyzine HCl 1 tab PO TID PRN 06/21/20 07/19/20 lorazepam 1 mg PO BID 06/21/20 07/19/20 lorazepam [Ativan] 0.5 mg PO DAILY 06/21/20 07/19/20 nitrofurantoin macrocrystal 1 cap PO BEDTIME 06/21/20 07/19/20 olanzapine 5 mg PO QAM AND QHS 06/21/20 07/19/20 tamsulosin 1 cap PO BEDTIME 06/21/20 07/19/20 varenicline [Chantix] 1 tab PO BID 06/21/20 07/19/20 Previous Rx's Medication Instructions Recorded bethanechol chloride 50 mg tablet 50 mg PO TID #90 tab 05/19/20 multivitamin-iron 9 mg-folic acid 1 tab PO DAILY #30 tab 06/22/20 400 mcg-calcium and minerals tablet Allergies Allergy/AdvReac Type Severity Reaction Status Date / Time No Known Allergies Allergy Unknown UNKNOWN Verified 05/27/20 23:54 [NO KNOWN ALLERGIES] Review of Systems Review of Systems: Yes all other systems are reviewed and are negative Constitutional: Constitutional: Reports no additional constitutional complaints, Denies body ache(s), Denies chills, Denies fever(s), Denies headache(s) and Denies weakness Eyes: Eyes: Reports no additional eye complaints and Denies change in vision ENT: Reports system reviewed and no additional complaints, except as documented, Denies dizziness, Denies headache(s), Denies nasal congestion, Denies nasal discharge and Denies neck pain Cardiovascular: Cardiovascular: Reports no additional cardiovascular complaints, Denies chest pain, Denies leg edema and Denies dyspnea Respiratory: Respiratory: Reports no additional respiratory complaints, Denies cough and Denies dyspnea Gastrointestinal: Gastrointestinal: Reports no additional gastrointestinal complaints, Denies abdominal pain, Denies diarrhea, Denies nausea and Denies vomiting Genitourinary: Genitourinary: Denies urinary incontinence Musculoskeletal: Musculoskeletal: Reports no additional musculoskeletal complaints, Denies back pain, Denies arthralgias, Denies joint swelling, Denies neck pain, Denies numbness and Denies tingling Integumentary/Breasts: Skin/Breast: Reports system reviewed and no additional complaints, except as docu and Denies rash Neurologic: Reports system reviewed and no additional complaints, except as documented, Denies Abnormal speech present, Denies dizziness, Denies headache(s), Denies numbness, Denies tingling and Denies weakness Psychiatric: Psychiatric: Denies anxiety, Denies depression, Denies visual hallucinations, Denies hallucinations, Denies homicidal ideation and Denies suicidal ideation [facility] Past Medical History Attestation statement: The following information was validated with the patient. Source: old records reviewed and nursing notes reviewed Medical History Anxiety Benign prostatic hyperplasia with lower urinary tract symptoms Bipolar 1 disorder Enlarged prostate Mood disorder Pure hypercholesterolemia Right knee injury Schizoaffective disorder, bipolar type Smoker Thought disorder Surgical History History of open reduction and internal fixation (ORIF) procedure History of prostate surgery (~05/03/19) Family History Family History Father Lung cancer BPH (benign prostatic hyperplasia) Mother Dementia Brother Myocardial infarction Social History Social History Alcohol intake: never Smoking Status: Never smoker Tobacco Type: Cigarette Advance Directives: No Advance Directives Information Provided: Yes Physical Exam Vital Signs: Vital Signs: Last Vital Signs Temp 97.2 F 07/19/20 17:21 Pulse 81 07/19/20 17:21 Resp 18 07/19/20 17:21 BP 112/79 07/19/20 17:21 Pulse Ox 97 07/19/20 17:21 Body Mass Index 24.5 Const: General: cooperative, healthy appearing, comfortable and no acute distress Orientation/consciousness: patient oriented x3 Limitations: no limitations HENMT: Head: Yes normal to inspection Ears: hearing grossly normal bilaterally General nose exam: Normal external nose present Face and sinus: Yes normal facial exam Mouth: Normal oral and palatal mucosa present Throat: Yes posterior oropharynx normal Eyes: General: appearance normal, both eyes and all related structures Pupils: Equal, round and reactive pupils present Neck: Neck: Yes normal visual inspection Chest: Chest palpation & inspection: normal inspection of the chest Resp: Effort & Inspection: normal respiratory effort Auscultation: clear to auscultation bilaterally Cardio: Rate: regular rate Rhythm: regular rhythm Peripheral pulses: Peripheral pulses 2+ throughout GI: Inspection: Yes normal to inspection Palpation (GI): Soft to palpation and nontender Auscultation: normal bowel sounds Back/Spine/Pelvis: Thoracic/Lumbar Spine: thoracic and lumbar spine normal to inspection Skin: General skin exam: no rashes or lesions noted Neuro: General: patient oriented x3, no focal motor deficits and normal sensation to monofilament Cranial nerves: Yes Equal, round and reactive pupils present Cognition (Neuro): normal cognition Speech: No Abnormal speech present Gait exam (Neuro): Normal gait present Motor exam (neuro): 5/5 motor strength present throughout Extrem: General: Yes normal to inspection Course Course Course Narrative: 54-year-old male coming for half-way with feeling anxious. No SI or HI or hallucinations. Denies substance use. Will have care team come and speak to patient with likely discharge back home to half-way. 1820-seen by care team who recommended nonpharmacological methods to manage anxiety at. Reviewed estelaome signs and symptoms and when to return to the emergency department. Comfortable with discharge home. MDM - Psych Medical Records Attestation: I reviewed the patient's medical records. Lab Data Attestation: I reviewed the patient's lab results. Labs: Lab Results 07/19/20 07/19/20 Range/Units 16:52 16:52 Urine Color YELLOW Urine Appearance CLEAR Urine pH 5.5 (5.0-8.0) Ur Specific [place] 1.015 (1.005-1.025) Urine Protein NEG (NEG-TRACE) MG/DL Urine Glucose (UA) NEG (NEG) MG/DL Urine Ketones NEG (NEG) MG/DL Urine Blood NEG (NEG) Urine Nitrite NEG (NEG) Ur Leukocyte Esterase NEG (NEG) Urine Opiates Screen Not Detected (Not Detect) Ur Barbiturates Screen Not Detected (Not Detect) Ur Phencyclidine Scrn Not Detected (Not Detect) Ur Amphetamines Screen Not Detected (Not Detect) U Benzodiazepines Scrn Not Detected (Not Detect) Urine Cocaine Screen Not Detected (Not Detect) U Marijuana (THC) Screen Not Detected (Not Detect) Discharge Plan Discharge Clinical Impression: Anxiety Patient Disposition: Home, Self-Care Instructions: Anxiety (ED) Prescriptions: No Action bethanechol chloride 50 mg tablet 50 mg PO TID Qty: 90 RF: 2 fifnklde-ohfb-GR-calcium-mins [Thera-M] 9 mg iron-400 mcg tablet 1 tab PO DAILY Qty: 30 RF: 6 nitrofurantoin macrocrystal 50 mg capsule 1 cap PO BEDTIME RF: 0 carbamazepine 200 mg tablet 400 mg PO BID RF: 0 tamsulosin 0.4 mg capsule 1 cap PO BEDTIME RF: 0 lorazepam 1 mg tablet 1 mg PO BID RF: 0 finasteride 5 mg tablet 1 tab PO QAM RF: 0 escitalopram oxalate 10 mg tablet 1 tab PO QAM RF: 0 aripiprazole 20 mg tablet 1 tab PO QAM RF: 0 Chantix 1 mg tablet 1 tab PO BID RF: 0 Lactobacillus acidophilus 100 mg (1 billion cell) capsule 1 cap PO QAM RF: 0 olanzapine 5 mg tablet 5 mg PO QAM AND QHS RF: 0 atorvastatin 10 mg tablet 10 mg PO BEDTIME RF: 0 hydroxyzine HCl 10 mg tablet 1 tab PO TID PRN (Reason: anxiety) RF: 0 lorazepam [Ativan] 0.5 mg Tablet 0.5 mg PO DAILY RF: 0 diphenhydramine HCl [Benadryl] 25 mg capsule 25 mg PO DAILY PRN (Reason: Anxiety) RF: 0 Referrals: Dk Rodriguez MD [Primary Care Provider] - 2 days Interventions: ED Discharge Assessment Last Done: 07/19/20 18:12 Discharge Date/Time: 07/19/20 18:31
--- NOTE | 2020-07-19 17:26 | PC.NURSE ---
Pt resting in room at current. No complaints at the time. Awaiting dispo plan.
--- NOTE | 2020-07-19 18:26 | MHC.CARE ---
CARE team support requested by ED provider to consult with pt who presented to ED endorsing sx of anxiety secondary to conflict within his custodial. Pt has numerous past ED visits with similar complaints. This account underwriter met with pt to discuss the challenges he's experiencing cohabiting with 3 roommates and staff who loudly argument frequently, which pt finds to be distressing. This account underwriter spoke with pt about his medications and other strategies he can utilize to alleviate some of the anxiety he's experiencing. Pt reported recent medication change (addition of abilify) and that the medications he is currently taking to aid with anxiety are low dosages. This account underwriter made recommendation that pt speak with his programmer developer or section cutter to arrange for a sooner appointment with his med presciber and to help pt acquire a noise cancelling machine, which can help reduce how much pt is disturbed by conflict outside of his room. ED provider updated re: consult and recommendations.
== END 2020-07-19 18:31 | disposition home or self-care (01) ==
PROVIDERS: Emergency Provider Emergency Medicine Emergency Medical Services; PCP Internal Medicine
DX: F41.1 Generalized anxiety disorder (principal); F43.0 Acute stress reaction; Z79.899 Other long term (current) drug therapy
CPT/HCPCS: 80307; 81003; 99284; 99285

== ENCOUNTER 2020-07-20 19:53 | Emergency (ER) | payer MEDICARE, MEDICAID, SELFPAY ==
[2020-07-20 20:14] VITALS: BP 130/82; PULSE 82; RESP 16; TEMP 36.7; O2SAT 97; BMI 24.7
--- NOTE | 2020-07-20 21:46 | PC.NURSE ---
PT WAS REPORTED BY VISITORS IN WAITING ROOM TO HAVE BEEN ATTEMPTING EXPOSE SELF TO THEM, SECURITY WAS NOTIFIED WHO VIEWED SECURITY FOOTAGE, NO CLEAR EVIDENCE OF WHAT HAPPENED. SECURITY SPOKE WITH PT ABOUT REPORTED ACTIONS, PT THEN WALKED OUT OF ED WITH EVEN STEADY GAIT.
--- NOTE | 2020-07-20 21:55 | PC.NURSE ---
RECEIVED A CALL THAT PATIENT WAS EXPOSING HIMSELF OUT IN THE WAITING ROOM, AND OTHER PATIENTS AND FAMILY MEMBERS WERE TALKING TO SECURITY ABOUT THE INCIDENT. SECURITY LOOKING ON CAMERA TO SEE WHAT WAS VIEWABLE. SECURITY REPORTING THAT PATIENT CHOSE TO LEAVE AND NOT BE SEEN AFTER THEY SPOKE WITH HIM ABOUT PATIENT COMPLAINTS. ALERTED NURSING STAFF AND REGISTRATION THAT HE PLANNED TO LEAVE. PROVIDER ANABEL COMING TO WAITING ROOM TO TALK WITH PATIENT. PATIENT CHOSE TO LEAVE BEFORE HE COULD BE EVALUATED BY PROVIDER.
== END 2020-07-20 22:00 | disposition left against medical advice (07) ==
LOC: HO.ED 21:57
PROVIDERS: Emergency Provider Emergency Medicine; PCP Internal Medicine
DX: F29 Unspecified psychosis not due to a substance or known physiological condition (principal)
CPT/HCPCS: 99282

== ENCOUNTER 2020-07-23 16:35 | Emergency (ER) | payer MEDICARE, MEDICAID, SELFPAY ==
[2020-07-23 17:08] VITALS: BP 132/90; PULSE 77; RESP 18; TEMP 36.4; O2SAT 98
[2020-07-23 17:10] VITALS: BP 132/90; BP 141/84; PULSE 70; PULSE 77; RESP 18; TEMP 36.4; O2SAT 98; O2SAT 99; BMI 24.3
--- NOTE | 2020-07-23 17:16 | PC.NURSE ---
patient a&ox3, denies si/hi, vss, will continue to monitor.
--- NOTE | 2020-07-23 18:50 | ED.PSYCH ---
HPI - Psych General Chief Complaint: Psychiatric Symptoms Stated Complaint: crisis Source: patient Mode of arrival: ambulatory Limitations: no limitations History of Present Illness HPI Narrative: Patient presents to the ED for issues with his correction. Patient states he still having the same issue with the people and correction. Patient feels like they are not doing the job. Patient has been to the ED multiple times for similar issues. Patient be seen multiple times by [facility] crisis team and care team. Patient denies any suicidal or homicidal ideation. Related Data Home Medications Medication Instructions Recorded Confirmed diphenhydramine HCl 25 mg capsule 25 mg PO DAILY PRN cap 04/08/20 07/19/20 Lactobacillus acidophilus 1 cap PO QAM 06/21/20 07/19/20 aripiprazole 1 tab PO QAM 06/21/20 07/19/20 atorvastatin 10 mg PO BEDTIME 06/21/20 07/19/20 carbamazepine 400 mg PO BID 06/21/20 07/19/20 escitalopram oxalate 1 tab PO QAM 06/21/20 07/19/20 finasteride 1 tab PO QAM 06/21/20 07/19/20 hydroxyzine HCl 1 tab PO TID PRN 06/21/20 07/19/20 lorazepam 1 mg PO BID 06/21/20 07/19/20 lorazepam [Ativan] 0.5 mg PO DAILY 06/21/20 07/19/20 nitrofurantoin macrocrystal 1 cap PO BEDTIME 06/21/20 07/19/20 olanzapine 5 mg PO QAM AND QHS 06/21/20 07/19/20 tamsulosin 1 cap PO BEDTIME 06/21/20 07/19/20 varenicline [Chantix] 1 tab PO BID 06/21/20 07/19/20 Previous Rx's Medication Instructions Recorded bethanechol chloride 50 mg tablet 50 mg PO TID #90 tab 05/19/20 multivitamin-iron 9 mg-folic acid 1 tab PO DAILY #30 tab 06/22/20 400 mcg-calcium and minerals tablet Allergies Allergy/AdvReac Type Severity Reaction Status Date / Time No Known Allergies Allergy Unknown UNKNOWN Verified 05/27/20 23:54 [NO KNOWN ALLERGIES] Review of Systems Review of Systems: Yes all other systems are reviewed and are negative Constitutional: Constitutional: Reports as per HPI and Reports no additional constitutional complaints Eyes: Eyes: Reports as per HPI and Reports no additional eye complaints ENT: Reports system reviewed and no additional complaints, except as documented and Reports as per HPI Cardiovascular: Cardiovascular: Reports as per HPI and Reports no additional cardiovascular complaints Respiratory: Respiratory: Reports as per HPI and Reports no additional respiratory complaints Gastrointestinal: Gastrointestinal: Reports as per HPI and Reports no additional gastrointestinal complaints Genitourinary: Genitourinary: Reports no additional male genitourinary complaints and Reports as per HPI Musculoskeletal: Musculoskeletal: Reports no additional musculoskeletal complaints and Reports as per HPI Neurologic: Reports system reviewed and no additional complaints, except as documented and Reports as per HPI Psychiatric: Psychiatric: Reports no additional psychiatric complaints and Reports as per HPI [facility] Past Medical History Medical History Anxiety Benign prostatic hyperplasia with lower urinary tract symptoms Bipolar 1 disorder Enlarged prostate Mood disorder Pure hypercholesterolemia Right knee injury Schizoaffective disorder, bipolar type Smoker Thought disorder Surgical History History of open reduction and internal fixation (ORIF) procedure History of prostate surgery (~05/03/19) Family History Family History Father Lung cancer BPH (benign prostatic hyperplasia) Mother Dementia Brother Myocardial infarction Social History Social History Alcohol intake: never Smoking Status: Current every day smoker Tobacco Type: Cigarette Smoked in Last 30 Days: Yes Use of substances other than those prescribed or required for medical reasons: No Advance Directives: No Advance Directives Information Provided: Yes Physical Exam Vital Signs: Vital Signs: Last Vital Signs Temp 97.8 F 07/23/20 20:00 Pulse 74 07/23/20 20:00 Resp 16 07/23/20 20:00 BP 126/75 07/23/20 20:00 Pulse Ox 99 07/23/20 20:00 Body Mass Index 24.3 Const: General: cooperative, healthy appearing, comfortable, no acute distress, well developed, alert, awake and Physically active Orientation/consciousness: patient oriented x3 HENMT: Head: Yes normal to inspection, Yes No palpable skull fracture present, Yes normocephalic and Yes atraumatic Eyes: General: appearance normal, both eyes and all related structures Neck: Neck: Yes normal visual inspection, Yes full ROM, Yes no lymphadenopathy, Yes no meningeal signs, Yes trachea midline, Yes supple and No tender Chest: Chest palpation & inspection: normal inspection of the chest and normal palpation of entire chest wall Resp: Effort & Inspection: normal respiratory effort and able to speak in complete sentences Auscultation: clear to auscultation bilaterally Cardio: Jugular venous distension: no JVD Heart sounds: S1 normal heart sound present and S2 normal heart sound present GI: Inspection: Yes normal to inspection and No abdominal wall ecchymosis Palpation (GI): Soft to palpation, not firm, nontender, no guarding and not rigid : General: No CVA tenderness and Yes no CVA tenderness Back/Spine/Pelvis: Back: no CVA tenderness, No CVA tenderness and No back tenderness Skin: General skin exam: no rashes or lesions noted and elasticity normal Neuro: General: patient oriented x3, no meningeal signs and CN's II-XI intact bilaterally Cranial nerves: Yes CN's II-XII intact bilaterally Extrem: General: Yes normal to inspection and Yes full ROM Psych: Appearance: grossly normal, well kempt and not disheveled Course Course Course Narrative: Patient is not suicidal or homicidal. No need for BHS evaluation. Contacted care team consulted Abida and she will come evaluate patient and sort out issue with correction. Reevaluation(s) Reevaluation #1: Patient seen by care team consulting Abida who states patient is safe for discharge. Patient is not suicidal homicidal. She spoke with correction staff and they state they are willing to take patient back. Time: 20:12 MDM - Psych MDM Narrative Medical decision making narrative: Anxiety. Adjustment disorder Discharge Plan Discharge Clinical Impression: Anxiety Patient Disposition: Home, Self-Care Instructions: Anxiety (ED) Additional Instructions: Return to the ED immediately for any suicidal/homicidal ideation, auditory/visual hallucinations, physical complaints, or any other concerning symptoms. Prescriptions: No Action bethanechol chloride 50 mg tablet 50 mg PO TID Qty: 90 RF: 2 uemkjtlk-byqt-VI-calcium-mins [Thera-M] 9 mg iron-400 mcg tablet 1 tab PO DAILY Qty: 30 RF: 6 nitrofurantoin macrocrystal 50 mg capsule 1 cap PO BEDTIME RF: 0 carbamazepine 200 mg tablet 400 mg PO BID RF: 0 tamsulosin 0.4 mg capsule 1 cap PO BEDTIME RF: 0 lorazepam 1 mg tablet 1 mg PO BID RF: 0 finasteride 5 mg tablet 1 tab PO QAM RF: 0 escitalopram oxalate 10 mg tablet 1 tab PO QAM RF: 0 aripiprazole 20 mg tablet 1 tab PO QAM RF: 0 Chantix 1 mg tablet 1 tab PO BID RF: 0 Lactobacillus acidophilus 100 mg (1 billion cell) capsule 1 cap PO QAM RF: 0 olanzapine 5 mg tablet 5 mg PO QAM AND QHS RF: 0 atorvastatin 10 mg tablet 10 mg PO BEDTIME RF: 0 hydroxyzine HCl 10 mg tablet 1 tab PO TID PRN (Reason: anxiety) RF: 0 lorazepam [Ativan] 0.5 mg Tablet 0.5 mg PO DAILY RF: 0 diphenhydramine HCl [Benadryl] 25 mg capsule 25 mg PO DAILY PRN (Reason: Anxiety) RF: 0 Interventions: ED Discharge Assessment Last Done: 07/23/20 20:21 Discharge Date/Time: 07/23/20 20:27 Print Language: Somali
[2020-07-23 20:00] VITALS: BP 126/75; PULSE 74; RESP 16; TEMP 36.6; O2SAT 99
--- NOTE | 2020-07-23 20:08 | MHC.CARE ---
CARE team speaks with pt at the request of DAMARI Rivas. Pt states that he became anxious at his [facility] because he feels unfairly treated by the staff and other residents there. Pt identifies that he will be working tomorrow and he is looking forward to this. Presentation is consistent with baseline paranoia. CARE Team reaches out to [facility] and they are okay with him being discharged. Pt is ok with plan for d/c to [facility]. 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 Yellow cab called on pt's behalf. Plan discussed with Rob.
== END 2020-07-23 20:27 | disposition home or self-care (01) ==
PROVIDERS: Emergency Provider Emergency Medicine
DX: F41.9 Anxiety disorder, unspecified (principal); F31.9 Bipolar disorder, unspecified; F17.210 Nicotine dependence, cigarettes, uncomplicated
CPT/HCPCS: 99283; 99285

== ENCOUNTER 2020-07-27 22:21 | Emergency (ER) | payer MEDICARE, MEDICAID, SELFPAY ==
[2020-07-27 22:27] VITALS: BP 103/50; PULSE 72; RESP 18; TEMP 36.7; O2SAT 97; BMI 25.8
--- NOTE | 2020-07-27 22:29 | ED.PSYCH ---
HPI - Psych General Chief Complaint: Psychiatric Symptoms Stated Complaint: crisis Source: patient Mode of arrival: ambulatory Limitations: no limitations History of Present Illness HPI Narrative: 54-year-old male with schizoaffective disorder, anxiety, neurogenic bladder, hyperlipidemia, and BPH presents with anxiety related to social problems at his [place] [facility]. He does not describe any suicidal ideation, homicidal ideation, auditory and visual hallucinations, fevers, chills, chest pain or pressure, palpitations, shortness breath, abdominal distention, dysuria, hematuria, and edema. MD complaint: anxiety Onset (ago): year(s) Duration: constant History of same: Yes Relieving factors: none Context: significant life stressor Associated psychiatric symptoms: depression Associated symptoms: denies other symptoms Treatments prior to arrival: none Related Data Home Medications Medication Instructions Recorded Confirmed diphenhydramine HCl 25 mg capsule 25 mg PO DAILY PRN cap 04/08/20 07/19/20 Lactobacillus acidophilus 1 cap PO QAM 06/21/20 07/19/20 aripiprazole 1 tab PO QAM 06/21/20 07/19/20 atorvastatin 10 mg PO BEDTIME 06/21/20 07/19/20 carbamazepine 400 mg PO BID 06/21/20 07/19/20 escitalopram oxalate 1 tab PO QAM 06/21/20 07/19/20 finasteride 1 tab PO QAM 06/21/20 07/19/20 hydroxyzine HCl 1 tab PO TID PRN 06/21/20 07/19/20 lorazepam 1 mg PO BID 06/21/20 07/19/20 lorazepam [Ativan] 0.5 mg PO DAILY 06/21/20 07/19/20 nitrofurantoin macrocrystal 1 cap PO BEDTIME 06/21/20 07/19/20 olanzapine 5 mg PO QAM AND QHS 06/21/20 07/19/20 tamsulosin 1 cap PO BEDTIME 06/21/20 07/19/20 varenicline [Chantix] 1 tab PO BID 06/21/20 07/19/20 Previous Rx's Medication Instructions Recorded bethanechol chloride 50 mg tablet 50 mg PO TID #90 tab 05/19/20 multivitamin-iron 9 mg-folic acid 1 tab PO DAILY #30 tab 06/22/20 400 mcg-calcium and minerals tablet Allergies Allergy/AdvReac Type Severity Reaction Status Date / Time No Known Allergies Allergy Unknown UNKNOWN Verified 05/27/20 23:54 [NO KNOWN ALLERGIES] Review of Systems Review of Systems: Constitutional: No Fever, No Chills ENT/Mouth: No Ear Pain, No Nasal Congestion, No sore throat Eyes: No Eye Pain, No Swelling, No Redness Cardiovascular: No Chest Pain, No SOB Respiratory: No Cough, No Sputum, No Dyspnea Gastrointestinal: No Nausea, No Vomiting, No Diarrhea, No Hematochezia, No Melena Genitourinary: No Dysuria, No Urinary Frequency, No Hematuria Musculoskeletal: No Myalgias Skin: No Skin Lesions, No rash Neuro: No Weakness, No Numbness, No Paresthesias, No Dizziness, No Headache Psych: positive Anxiety, positive Depression, no SI/HI Heme/Lymph: No Lymphadenopathy Endocrine: No Polyuria, No Polydipsia Yes all other systems are reviewed and are negative [facility] Past Medical History Source: old records reviewed Medical History Anxiety Benign prostatic hyperplasia with lower urinary tract symptoms Bipolar 1 disorder Enlarged prostate Mood disorder Pure hypercholesterolemia Right knee injury Schizoaffective disorder, bipolar type Smoker Thought disorder Surgical History History of open reduction and internal fixation (ORIF) procedure History of prostate surgery (~05/03/19) Family History Family History Father Lung cancer BPH (benign prostatic hyperplasia) Mother Dementia Brother Myocardial infarction Social History Social History Alcohol intake: never Smoking Status: Current every day smoker Tobacco Type: Cigarette Advance Directives: No Advance Directives Information Provided: Yes Physical Exam Vital Signs: Vital Signs: Last Vital Signs Temp 98.1 F 07/27/20 22:27 Pulse 72 07/27/20 22:27 Resp 18 07/27/20 22:27 BP 103/50 L 07/27/20 22:27 Pulse Ox 97 07/27/20 22:27 Body Mass Index 25.8 Appearance: Alert. Oriented X3. No acute distress. Eyes: Pupils equal, round and reactive to light. ENT: Pharynx normal. Neck: Normal inspection. Neck supple. CVS: Normal heart rate and rhythm. Pulses normal. Respiratory: No respiratory distress. Breath sounds normal. Abdomen: Soft and nontender. Skin: Skin warm and dry. Normal skin color. Normal skin turgor. Extremities: No lower extremity edema. Neuro: No motor deficit. No sensory deficit. Course Course Course Narrative: 54-year-old male presents to the emergency department on almost daily basis for situational problems at his [place] [facility]. The last time the patient was in this facility he was waiting in the waiting room and exposed his penis to other patients waiting. He was escorted off the facility by security at that time. Due to the long wait time, nursing staff and this [employer] felt it was best to assess him in the triage room. As he did not describe any suicidal, homicidal ideation or auditory visual hallucinations, denies any physical complaint, vital signs were stable and within normal limits, no neurological or focal deficits noted. Patient was discharged from the triage back home. We felt that this measure with for the safety of the children and patients in the waiting room. Patient verbalized understanding of and agrees to plan of care discharge home. MDM - Psych Differential Diagnosis Differential diagnosis: Likely acute anxiety Medical Records Attestation: I reviewed the patient's medical records. Discharge Plan Discharge Clinical Impression: Anxiety Patient Disposition: Home, Self-Care Instructions: Anxiety (ED) Additional Instructions: Follow-up psychiatry as scheduled Thank you for choosing this emergency department for evaluation. Please follow-up with primary care physician as needed. Return to the emergency department for any new, concerning, or worsening symptoms. Prescriptions: No Action bethanechol chloride 50 mg tablet 50 mg PO TID Qty: 90 RF: 2 tysbextn-krfg-IE-calcium-mins [Thera-M] 9 mg iron-400 mcg tablet 1 tab PO DAILY Qty: 30 RF: 6 nitrofurantoin macrocrystal 50 mg capsule 1 cap PO BEDTIME RF: 0 carbamazepine 200 mg tablet 400 mg PO BID RF: 0 tamsulosin 0.4 mg capsule 1 cap PO BEDTIME RF: 0 lorazepam 1 mg tablet 1 mg PO BID RF: 0 finasteride 5 mg tablet 1 tab PO QAM RF: 0 escitalopram oxalate 10 mg tablet 1 tab PO QAM RF: 0 aripiprazole 20 mg tablet 1 tab PO QAM RF: 0 Chantix 1 mg tablet 1 tab PO BID RF: 0 Lactobacillus acidophilus 100 mg (1 billion cell) capsule 1 cap PO QAM RF: 0 olanzapine 5 mg tablet 5 mg PO QAM AND QHS RF: 0 atorvastatin 10 mg tablet 10 mg PO BEDTIME RF: 0 hydroxyzine HCl 10 mg tablet 1 tab PO TID PRN (Reason: anxiety) RF: 0 lorazepam [Ativan] 0.5 mg Tablet 0.5 mg PO DAILY RF: 0 diphenhydramine HCl [Benadryl] 25 mg capsule 25 mg PO DAILY PRN (Reason: Anxiety) RF: 0 Interventions: ED Discharge Assessment Last Done: 07/27/20 22:45 Discharge Date/Time: 07/27/20 22:48
--- NOTE | 2020-07-27 22:29 | PC.NURSE ---
patient seen in traige room by jose j laughlin. patient discharged home from waiting room
== END 2020-07-27 22:48 | disposition home or self-care (01) ==
PROVIDERS: Emergency Provider Internal Medicine
DX: F41.9 Anxiety disorder, unspecified (principal); F25.9 Schizoaffective disorder, unspecified; F32.9 Major depressive disorder, single episode, unspecified; F17.210 Nicotine dependence, cigarettes, uncomplicated; Z79.899 Other long term (current) drug therapy; Z72.89 Other problems related to lifestyle
CPT/HCPCS: 99283

== ENCOUNTER 2020-07-31 00:16 | Emergency (ER) | payer MEDICARE, MEDICAID, SELFPAY ==
--- NOTE | ~2020-07-31 | XR_ITS ---
EXAMINATION: XR RIBS, RIGHT CLINICAL INFORMATION: Pain at the right anterior axilla COMPARISON: 12/20/2016 TECHNIQUE: 3 views of the right ribs were obtained. PA view of the chest. FINDINGS: Lungs are clear. No consolidation, pneumothorax, or pleural effusion. The cardiomediastinal silhouette and pulmonary vasculature are normal. Healed posterior right 10th rib fracture.. Ribs are intact. No acute fractures are identified. XR/XR ribs RT min 3V w CXR1V IMPRESSION: Clear lungs. No acute rib abnormality. Healed right posterior 10th rib fracture.
[2020-07-31 01:07] VITALS: BP 104/65; PULSE 87; RESP 16; TEMP 36.6; O2SAT 96; BMI 23.6
--- NOTE | 2020-07-31 01:31 | ED.GENADULT ---
HPI - General Adult General Chief complaint: General Medical Stated complaint: Rib pain Time Seen by Provider: 07/31/20 01:10 Source: patient Mode of arrival: ambulatory History of Present Illness HPI narrative: This is a 54-year-old male who states that he was moving heavy chairs approximately 3 days ago and then began developing pain and discomfort at the right lateral chest wall but denies being struck there by any heavy objects or falling. He denies any fevers, chills or pain on deep inspiration and states that he feels the pain when he moves his right arm at the shoulder. Related Data Home Medications Medication Instructions Recorded Confirmed diphenhydramine HCl 25 mg capsule 25 mg PO DAILY PRN cap 04/08/20 07/19/20 Lactobacillus acidophilus 1 cap PO QAM 06/21/20 07/19/20 aripiprazole 1 tab PO QAM 06/21/20 07/19/20 atorvastatin 10 mg PO BEDTIME 06/21/20 07/19/20 carbamazepine 400 mg PO BID 06/21/20 07/19/20 escitalopram oxalate 1 tab PO QAM 06/21/20 07/19/20 finasteride 1 tab PO QAM 06/21/20 07/19/20 hydroxyzine HCl 1 tab PO TID PRN 06/21/20 07/19/20 lorazepam 1 mg PO BID 06/21/20 07/19/20 lorazepam [Ativan] 0.5 mg PO DAILY 06/21/20 07/19/20 nitrofurantoin macrocrystal 1 cap PO BEDTIME 06/21/20 07/19/20 olanzapine 5 mg PO QAM AND QHS 06/21/20 07/19/20 tamsulosin 1 cap PO BEDTIME 06/21/20 07/19/20 varenicline [Chantix] 1 tab PO BID 06/21/20 07/19/20 Previous Rx's Medication Instructions Recorded bethanechol chloride 50 mg tablet 50 mg PO TID #90 tab 05/19/20 multivitamin-iron 9 mg-folic acid 1 tab PO DAILY #30 tab 06/22/20 400 mcg-calcium and minerals tablet Allergies Allergy/AdvReac Type Severity Reaction Status Date / Time No Known Allergies Allergy Unknown UNKNOWN Verified 05/27/20 23:54 [NO KNOWN ALLERGIES] Review of Systems Review of Systems: Pertinent positives and negatives as stated in HPI and 10 point review of systems is otherwise negative. [facility] Past Medical History Source: nursing notes reviewed Medical History Anxiety Benign prostatic hyperplasia with lower urinary tract symptoms Bipolar 1 disorder Enlarged prostate Mood disorder Pure hypercholesterolemia Right knee injury Schizoaffective disorder, bipolar type Smoker Thought disorder Surgical History History of open reduction and internal fixation (ORIF) procedure History of prostate surgery (~05/03/19) Family History Family History Father Lung cancer BPH (benign prostatic hyperplasia) Mother Dementia Brother Myocardial infarction Social History Social History Alcohol intake: never Smoking Status: Current every day smoker Tobacco Type: Cigarette Advance Directives: No Physical Exam Vital Signs: Vital Signs: Last Vital Signs Temp 97.9 F 07/31/20 01:07 Pulse 87 07/31/20 01:07 Resp 16 07/31/20 01:07 BP 104/65 07/31/20 01:07 Pulse Ox 96 07/31/20 01:07 Body Mass Index 23.6 VITAL SIGNS: Reviewed. GENERAL: Well developed, well nourished, in no acute distress. HEAD: Normocephalic/atraumatic OROPHARYNX: no oral lesions noted, posterior pharynx clear NECK: Supple, no adenopathy LUNGS: Normal breath sounds. SpO2<96> CHEST WALL: No crepitus, no contusions or ecchymosis noted, minimal tenderness on palpation over mid axillary right ribs 5 and 6 CARDIOVASCULAR: Regular rate and rhythm without noted murmurs ABDOMEN: Soft, non-tender, non-distended with bowel sounds. NEUROLOGIC: Alert and oriented x 4. Course Course Course Narrative: This is a 54-year-old male with suspected muscle strain and doubt pneumothorax, pneumonia, rib fracture. Review of investigations is negative for any acute findings other than healed right posterior 10th rib fracture. Results and findings were discussed with the patient at bedside and he was encouraged to use combination algae 6 for his discomfort in combination with lidocaine patch. Discharge Plan Discharge Clinical Impression: Muscle strain Patient Disposition: Home, Self-Care Instructions: Muscle Strain (ED) Additional Instructions: 1. Tylenol 1000 mg, orally, every 6 hours as needed for pain control. Do not exceed 4000 mg within 24 hours. 2. Ibuprofen 400 mg, orally with milk or food, every 6 hours as needed for pain control. 3. Lidocaine patch, these are available [id number] at every [facility]/warmer, apply to area of maximal pain as directed on the outside packaging. To not hesitate to return to the emergency department should you experience any acute worsening of your symptoms. Prescriptions: No Action bethanechol chloride 50 mg tablet 50 mg PO TID Qty: 90 RF: 2 tbhyqpki-awzg-GL-calcium-mins [Thera-M] 9 mg iron-400 mcg tablet 1 tab PO DAILY Qty: 30 RF: 6 nitrofurantoin macrocrystal 50 mg capsule 1 cap PO BEDTIME RF: 0 carbamazepine 200 mg tablet 400 mg PO BID RF: 0 tamsulosin 0.4 mg capsule 1 cap PO BEDTIME RF: 0 lorazepam 1 mg tablet 1 mg PO BID RF: 0 finasteride 5 mg tablet 1 tab PO QAM RF: 0 escitalopram oxalate 10 mg tablet 1 tab PO QAM RF: 0 aripiprazole 20 mg tablet 1 tab PO QAM RF: 0 Chantix 1 mg tablet 1 tab PO BID RF: 0 Lactobacillus acidophilus 100 mg (1 billion cell) capsule 1 cap PO QAM RF: 0 olanzapine 5 mg tablet 5 mg PO QAM AND QHS RF: 0 atorvastatin 10 mg tablet 10 mg PO BEDTIME RF: 0 hydroxyzine HCl 10 mg tablet 1 tab PO TID PRN (Reason: anxiety) RF: 0 lorazepam [Ativan] 0.5 mg Tablet 0.5 mg PO DAILY RF: 0 diphenhydramine HCl [Benadryl] 25 mg capsule 25 mg PO DAILY PRN (Reason: Anxiety) RF: 0 Referrals: Dk Rodriguez MD [Primary Care Provider] - 2 days (Muscle strain of right chest wall after lifting furniture)
== END 2020-07-31 01:59 | disposition home or self-care (01) ==
PROVIDERS: Emergency Provider Student in an Organized Health Care Education/Training Program; PCP Internal Medicine
DX: S29.011A Strain of muscle and tendon of front wall of thorax, initial encounter (principal); R07.89 Other chest pain; M79.621 Pain in right upper arm; F17.210 Nicotine dependence, cigarettes, uncomplicated; X50.9XXA Other and unspecified overexertion or strenuous movements or postures, initial encounter; Y93.9 Activity, unspecified; Y92.9 Unspecified place or not applicable; Y99.9 Unspecified external cause status; Z79.899 Other long term (current) drug therapy; Z71.6 Tobacco abuse counseling
CPT/HCPCS: 71101; 99283

== ENCOUNTER 2020-08-03 00:50 | Emergency (ER) | payer MEDICARE, MEDICAID, SELFPAY ==
[2020-08-03 00:51] VITALS: BP 115/57; PULSE 97; RESP 16; TEMP 36.4; O2SAT 97; BMI 25.0
--- NOTE | 2020-08-03 01:28 | ED.PSYCH ---
HPI - Psych General Chief Complaint: Psychiatric Symptoms Stated Complaint: Crisis Time Seen by Provider: 08/03/20 01:28 Source: patient Mode of arrival: ambulatory Limitations: no limitations History of Present Illness HPI Narrative: Patient with PTSD anxiety been here multiple times for similar reasons that he has not been adjusted in his detention and is in intolerable situation reports he is supposed to go to respite but has not done yet denies any significant depression or suicidal ideation no hallucinations or delusions History of same: Yes Related Data Home Medications Medication Instructions Recorded Confirmed diphenhydramine HCl 25 mg capsule 25 mg PO DAILY PRN cap 04/08/20 07/19/20 Lactobacillus acidophilus 1 cap PO QAM 06/21/20 07/19/20 aripiprazole 1 tab PO QAM 06/21/20 07/19/20 atorvastatin 10 mg PO BEDTIME 06/21/20 07/19/20 carbamazepine 400 mg PO BID 06/21/20 07/19/20 escitalopram oxalate 1 tab PO QAM 06/21/20 07/19/20 finasteride 1 tab PO QAM 06/21/20 07/19/20 hydroxyzine HCl 1 tab PO TID PRN 06/21/20 07/19/20 lorazepam 1 mg PO BID 06/21/20 07/19/20 lorazepam [Ativan] 0.5 mg PO DAILY 06/21/20 07/19/20 nitrofurantoin macrocrystal 1 cap PO BEDTIME 06/21/20 07/19/20 olanzapine 5 mg PO QAM AND QHS 06/21/20 07/19/20 tamsulosin 1 cap PO BEDTIME 06/21/20 07/19/20 varenicline [Chantix] 1 tab PO BID 06/21/20 07/19/20 Previous Rx's Medication Instructions Recorded bethanechol chloride 50 mg tablet 50 mg PO TID #90 tab 05/19/20 multivitamin-iron 9 mg-folic acid 1 tab PO DAILY #30 tab 06/22/20 400 mcg-calcium and minerals tablet Allergies Allergy/AdvReac Type Severity Reaction Status Date / Time No Known Allergies Allergy Unknown UNKNOWN Verified 05/27/20 23:54 [NO KNOWN ALLERGIES] Review of Systems Review of Systems: Constitutional : No Fever, No Chills ENT/Mouth : No Ear Pain, No Nasal Congestion, No sore throat Eyes: No Eye Pain, No Swelling, No Redness Cardiovascular : No Chest Pain, No SOB Respiratory : No Cough, No Sputum, No Dyspnea Gastrointestinal : No Nausea, No Vomiting, No Diarrhea, No Hematochezia, No Melena Genitourinary : No Dysuria, No Urinary Frequency, No Hematuria Musculoskeletal : No Myalgias Skin : No Skin Lesions, No rash Neuro : No Weakness, No Numbness, No Paresthesias, No Dizziness, No Headache Psych : positive Anxiety, positive Depression, neg SI/HI Heme/Lymph: No Lymphadenopathy Endocrine : No Polyuria, No Polydipsia [facility] Past Medical History Medical History Anxiety Benign prostatic hyperplasia with lower urinary tract symptoms Bipolar 1 disorder Enlarged prostate Mood disorder Pure hypercholesterolemia Right knee injury Schizoaffective disorder, bipolar type Smoker Thought disorder Surgical History History of open reduction and internal fixation (ORIF) procedure History of prostate surgery (~05/03/19) Family History Family History Father Lung cancer BPH (benign prostatic hyperplasia) Mother Dementia Brother Myocardial infarction Social History Social History Alcohol intake: never Smoking Status: Current every day smoker Tobacco Type: Cigarette Advance Directives: No Advance Directives Information Provided: No Physical Exam Vital Signs: Vital Signs: Last Vital Signs Temp 97.5 F 08/03/20 00:51 Pulse 97 08/03/20 00:51 Resp 16 08/03/20 00:51 BP 115/57 L 08/03/20 00:51 Pulse Ox 97 08/03/20 00:51 Body Mass Index 25.0 Appearance: Alert. Oriented X3. No acute distress. Eyes: Pupils equal, round and reactive to light. ENT: Pharynx normal. Neck: Normal inspection. Neck supple. CVS: Normal heart rate and rhythm. Pulses normal. Respiratory: No respiratory distress. Breath sounds normal. Abdomen: Soft and nontender. Bowel sounds are present, no mass palpable, no CVA tenderness Skin: Skin warm and dry. Normal skin color. Normal skin turgor. Psych: Calm and cooperative anxious no delusions no significant depression no suicidal ideation no hallucinations Extremities: No lower extremity edema. Neuro: Oriented X 3. No motor deficit. No sensory deficit. Discharge Plan Discharge Clinical Impression: Adjustment disorder Qualifiers: Adjustment disorder type: with anxious mood Qualified Code(s): F43.22 - Adjustment disorder with anxiety Prescriptions: No Action bethanechol chloride 50 mg tablet 50 mg PO TID Qty: 90 RF: 2 xlawebyc-vpmu-LQ-calcium-mins [Thera-M] 9 mg iron-400 mcg tablet 1 tab PO DAILY Qty: 30 RF: 6 nitrofurantoin macrocrystal 50 mg capsule 1 cap PO BEDTIME RF: 0 carbamazepine 200 mg tablet 400 mg PO BID RF: 0 tamsulosin 0.4 mg capsule 1 cap PO BEDTIME RF: 0 lorazepam 1 mg tablet 1 mg PO BID RF: 0 finasteride 5 mg tablet 1 tab PO QAM RF: 0 escitalopram oxalate 10 mg tablet 1 tab PO QAM RF: 0 aripiprazole 20 mg tablet 1 tab PO QAM RF: 0 Chantix 1 mg tablet 1 tab PO BID RF: 0 Lactobacillus acidophilus 100 mg (1 billion cell) capsule 1 cap PO QAM RF: 0 olanzapine 5 mg tablet 5 mg PO QAM AND QHS RF: 0 atorvastatin 10 mg tablet 10 mg PO BEDTIME RF: 0 hydroxyzine HCl 10 mg tablet 1 tab PO TID PRN (Reason: anxiety) RF: 0 lorazepam [Ativan] 0.5 mg Tablet 0.5 mg PO DAILY RF: 0 diphenhydramine HCl [Benadryl] 25 mg capsule 25 mg PO DAILY PRN (Reason: Anxiety) RF: 0
[2020-08-03 02:00] VITALS: RESP 16
--- NOTE | 2020-08-03 03:00 | PC.NURSE ---
FAXED TO [facility]. SPOKE WITH JOHNATHAN.
== END 2020-08-03 04:10 | disposition home or self-care (01) ==
PROVIDERS: Emergency Provider Internal Medicine; PCP Internal Medicine
DX: F43.22 Adjustment disorder with anxiety (principal); F43.10 Post-traumatic stress disorder, unspecified; F25.0 Schizoaffective disorder, bipolar type; F17.210 Nicotine dependence, cigarettes, uncomplicated
CPT/HCPCS: 99283; 99284

== ENCOUNTER 2020-08-03 09:51 | Outpatient (AMB) | payer MEDICARE, MEDICAID, SELFPAY ==
--- NOTE | 2020-08-03 09:47 | A.OFFVIS_ITS ---
Intake Visit Reasons: 4M Follow UP Allergies No Known Allergies (NO KNOWN ALLERGIES) Allergy (Unknown, Verified 06/01/25 11:4 0) UNKNOWN HPI HPI 4M Follow UP : Details: THIS IS ADMINISTRATIVELY CLOSED - DO NOT BILL HPI Comments Details: Due to the COVID-19 pandemic, we are limiting [id number] visits to patient's or have an absolute need for such visits Patient's follow-up visit / consultation today is done over the phone - this is a Telehealth visit Patient's current medications have been reviewed and verified with patient and / or caregiver / proxy and have been updated accordingly in the medication list Went to ER earlier this AM - anger - picked up recliner and threw it strained right upper chest and back muscles Rx Tylenol 500 mg PFSH Medical History Acute anxiety Smoker GERD without esophagitis Tubular adenoma of colon (~2018) Personal history of nicotine dependence Constipation Back pain Schizoaffective disorder, bipolar type Anxiety Benign prostatic hyperplasia with lower urinary tract symptoms Pure hypercholesterolemia Thought disorder Bipolar 1 disorder Mood disorder Surgical History History of colonoscopy (~04/2019) History of prostate surgery (~04/2019) History of open reduction and internal fixation (ORIF) procedure (~08/2018) Family History Father Lung cancer BPH (benign prostatic hyperplasia) Mother Dementia Brother Myocardial infarction Other Mental health problem Substance abuse Social History Household Members: Other Housing: Other Housing Other:: Retirement Do you presently have visiting nurse or other home services: No Alcohol intake: never Patient Tobacco Use Status: Current everyday Tobacco user Tobacco use type: Cigarette Cigarette Packs Per Day: 0.5 Cigarettes Per Day: 10.0 Years Smoked: 10 e-Cigarette/Vaping Use: Never Used Second Hand Smoke Exposure: Yes Advance Directives: No Advance Directives Information Provided: Yes Do you have a plan to hurt others: No Plan service: No Current occupational status: employed and disabled 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 Sexual orientation: Straight/Heterosexual Cognitive needs: No Hearing needs: No Vision needs: Yes Physical Exam Physical examination is not performed as visit / consultation today is done over the phone - Telehealth visit All physical findings indicated here, if present, are as per patient's and / or caregivers / proxy's report Telehealth Telehealth Location of provider rendering services: practice address Location of patient: address on file Patient Identification confirmed using: Name, : Yes Telehealth method: voice only Patient verbally consented to treatment: Yes Patient verbally consented to billing insurance company: Yes Assessment & Plan Assessment & Plan (1) Pure hypercholesterolemia: Code(s): E78.00 - Pure hypercholesterolemia, unspecified Category: Medical Orders: Orders Comprehensive [facility]. Panel Fast 08/03/20 Lipid Panel 08/03/20 TSH reflex Free T4 08/03/20 (2) Benign prostatic hyperplasia with lower urinary tract symptoms: Code(s): N40.1 - Benign prostatic hyperplasia with lower urinary tract symptoms Category: Medical Qualifiers: Lower urinary tract symptom detail: urinary retention Qualified Code(s): N40.1 - Benign prostatic hyperplasia with lower urinary tract symptoms; R33.8 - Other retention of urine Orders: Orders UA CC w/rflx Micro + Cult 08/03/20 (3) Neurogenic bladder: Code(s): N31.9 - Neuromuscular dysfunction of bladder, unspecified Category: Medical Orders: Orders UA CC w/rflx Micro + Cult 08/03/20 (4) Anxiety: Code(s): F41.9 - Anxiety disorder, unspecified Category: Medical (5) Schizoaffective disorder, bipolar type: Code(s): F25.0 - Schizoaffective disorder, bipolar type Category: Medical Orders: Orders Complete Blood Count Auto Diff 08/03/20 (6) Smoker: Code(s): F17.200 - Nicotine dependence, unspecified, uncomplicated Category: Social Hx Orders: Orders Comprehensive [facility]. Panel Fast 08/03/20 UA CC w/rflx Micro + Cult 08/03/20 Complete Blood Count Auto Diff 08/03/20 (7) Muscle strain of chest wall: Code(s): S29.011A - Strain of muscle and tendon of front wall of thorax, initial encounter Category: Medical Coding Level of Care Code Est Pt Level 3 (46625) Diagnoses Pure hypercholesterolemia E78.00 Benign prostatic hyperplasia with urinary retention N40.1; R33.8 Lower urinary tract symptom detail: urinary retention Neurogenic bladder N31.9 Anxiety F41.9 Schizoaffective disorder, bipolar type F25.0 Smoker F17.200 Muscle strain of chest wall S29.011A
== END 2020-08-03 11:36 ==
LOC: HO.HMGH 09:51
PROVIDERS: Visit Provider Internal Medicine
DX: E78.00 Pure hypercholesterolemia, unspecified (principal); N40.1 Benign prostatic hyperplasia with lower urinary tract symptoms; R33.8 Other retention of urine; N31.9 Neuromuscular dysfunction of bladder, unspecified; F41.9 Anxiety disorder, unspecified; F25.0 Schizoaffective disorder, bipolar type; F17.200 Nicotine dependence, unspecified, uncomplicated; S29.011A Strain of muscle and tendon of front wall of thorax, initial encounter
CPT/HCPCS: 99499

== ENCOUNTER 2020-08-05 14:37 | Emergency (ER) | payer MEDICARE, MEDICAID, SELFPAY ==
[2020-08-05 14:45] VITALS: BP 132/86; BP 147/86; PULSE 77; PULSE 78; RESP 18; TEMP 36.1; O2SAT 98; O2SAT 99; BMI 24.3
[2020-08-05 14:50] VITALS: BP 147/86; PULSE 78; RESP 18; TEMP 36.1; O2SAT 98
--- NOTE | 2020-08-05 15:54 | ED_ITS ---
HPI - Psych General Chief Complaint: Psychiatric Symptoms Stated Complaint: PSYCH EVAL Time Seen by Provider: 08/05/20 15:52 Source: EMS Mode of arrival: ambulatory Limitations: no limitations History of Present Illness HPI Narrative: Today having more stressful day episode of aggression meaning anxiety and feeling that he was going to expose himself in the public does calling EMS for himself. Denies any thoughts of SI or HI, denies any illicit substance use. MD complaint: anxiety Onset (ago): hour(s) Duration: intermittent History of same: Yes Relieving factors: none Exacerbating factors: none Associated psychiatric symptoms: none and auditory hallucinations Associated symptoms: denies other symptoms Treatments prior to arrival: none Related Data Home Medications Medication Instructions Recorded Confirmed diphenhydramine HCl 25 mg capsule 25 mg PO DAILY PRN cap 04/08/20 07/19/20 Lactobacillus acidophilus 1 cap PO QAM 06/21/20 07/19/20 aripiprazole 1 tab PO QAM 06/21/20 07/19/20 atorvastatin 10 mg PO BEDTIME 06/21/20 07/19/20 carbamazepine 400 mg PO BID 06/21/20 07/19/20 escitalopram oxalate 1 tab PO QAM 06/21/20 07/19/20 finasteride 1 tab PO QAM 06/21/20 07/19/20 hydroxyzine HCl 1 tab PO TID PRN 06/21/20 07/19/20 lorazepam 1 mg PO BID 06/21/20 07/19/20 lorazepam [Ativan] 0.5 mg PO DAILY 06/21/20 07/19/20 nitrofurantoin macrocrystal 1 cap PO BEDTIME 06/21/20 07/19/20 olanzapine 5 mg PO QAM AND QHS 06/21/20 07/19/20 tamsulosin 1 cap PO BEDTIME 06/21/20 07/19/20 varenicline [Chantix] 1 tab PO BID 06/21/20 07/19/20 acetaminophen 500 mg tablet 500 mg PO Q4H PRN tab 08/05/20 loratadine 10 mg tablet 10 mg PO DAILY 08/05/20 Previous Rx's Medication Instructions Recorded bethanechol chloride 50 mg tablet 50 mg PO TID #90 tab 05/19/20 multivitamin-iron 9 mg-folic acid 1 tab PO DAILY #30 tab 06/22/20 400 mcg-calcium and minerals tablet Allergies Allergy/AdvReac Type Severity Reaction Status Date / Time No Known Allergies Allergy Unknown UNKNOWN Verified 08/05/20 14:58 [NO KNOWN ALLERGIES] Review of Systems Review of Systems: Constitutional: No Weight loss, No Fever, No Chills, No Night Sweats, No Fatigue, No Malaise ENT/Mouth: No Hearing loss, No Ear Pain, No Nasal Congestion, No Sinus Pain, No Hoarseness, No sore throat, No Rhinorrhea, No Swallowing Difficulty Eyes: No Eye Pain, No Swelling, No Redness, No Foreign Body, No Discharge, No Vision Changes Cardiovascular: No Chest Pain, No SOB, No Dyspnea on Exertion, No Orthopnea, No Edema, No Palpitations Respiratory: No Cough, No Sputum, No Wheezing, No Smoke Exposure, No Dyspnea Gastrointestinal: No Nausea, No Vomiting, No Diarrhea, No Constipation, No abdominal Pain, No Hematochezia, No Melena Genitourinary: No Dysuria, No Urinary Frequency, No Hematuria, No Urinary Incontinence, No Urgency, No Flank Pain, No Urinary Flow Changes, No Hesitancy Musculoskeletal: No joint pain, No Myalgias, No Joint Swelling Skin: No Skin Lesions, No rash Neuro: No Weakness, No Numbness, No Paresthesias, No Loss of Consciousness, No Dizziness, No Headache Psych:+ Anxiety/Panic, No Depression, No SI/HI/AH/VH Heme/Lymph: No Bruising, No Bleeding,No Lymphadenopathy Endocrine: No Polyuria, No Polydipsia, No Temperature Intolerance Yes all other systems are reviewed and are negative [facility] Past Medical History Medical History Anxiety Benign prostatic hyperplasia with lower urinary tract symptoms Bipolar 1 disorder Enlarged prostate Mood disorder Muscle strain of chest wall Pure hypercholesterolemia Right knee injury Schizoaffective disorder, bipolar type Smoker Thought disorder Surgical History History of open reduction and internal fixation (ORIF) procedure History of prostate surgery (~05/03/19) Family History Family History Father Lung cancer BPH (benign prostatic hyperplasia) Mother Dementia Brother Myocardial infarction Social History Social History Alcohol intake: never Smoking Status: Current every day smoker Tobacco Type: Cigarette Use of substances other than those prescribed or required for medical reasons: No Advance Directives: No Advance Directives Information Provided: No Physical Exam Vital Signs: Vital Signs: Last Vital Signs Temp 97.0 F 08/05/20 14:50 Pulse 78 08/05/20 14:50 Resp 18 08/05/20 14:50 BP 147/86 H 08/05/20 14:50 Pulse Ox 98 08/05/20 14:50 Body Mass Index 24.3 Reviewed Const: Other: Pleasant [place] with smile at his baseline. General: cooperative; No acute distress or intoxicated appearing Nutritional Appearance: average body habitus Orientation/consciousness: patient oriented x3 HENMT: Head: Yes normal to inspection Ears: hearing grossly normal bilaterally Eyes: General: appearance normal, both eyes and all related structures Visual Michele: normal visual michele by confrontation Neck: Neck: Yes normal visual inspection, No positive Brudzinski's sign, No positive Kernig's sign and No tender Thyroid: Thyroid normal Chest: Chest palpation & inspection: normal inspection of the chest Resp: Effort & Inspection: normal respiratory effort Auscultation: clear to auscultation bilaterally Cardio: Jugular venous distension: no JVD Rhythm: regular rhythm Heart sounds: S1 normal heart sound present and S2 normal heart sound present GI: Inspection: Yes normal to inspection Palpation (GI): Soft to palpation Percussion: Yes normal to percussion Auscultation: normal bowel sounds : General: Yes no CVA tenderness Back/Spine/Pelvis: Back: no CVA tenderness Skin: General skin exam: no rashes or lesions noted Neuro: General: patient oriented x3 Extrem: General: Yes normal to inspection Course Course Course Narrative: Offers no medical complaints baseline bipolar disorder with psychotic features evaluated by care team and discussed with the snf very much at baseline. Care team cleared for discharge back to snf if needed snf will closely follow-up outpatient [facility]. He feels comfortable plan, denies any SI or HI. Discharge Plan Discharge Clinical Impression: Bipolar disorder Patient Disposition: Home, Self-Care Instructions: Bipolar Disorder (ED) Additional Instructions: Follow-up with [facility] on outpatient basis as discussed with care team Return if any concerns or worsening symptoms Otherwise taking medication as prescribed Return back to snf today Thank you Prescriptions: No Action bethanechol chloride 50 mg tablet 50 mg PO TID Qty: 90 RF: 2 jwihhdtr-vbgp-GI-calcium-mins [Thera-M] 9 mg iron-400 mcg tablet 1 tab PO DAILY Qty: 30 RF: 6 acetaminophen 500 mg tablet 500 mg PO Q4H PRNRF: 0 loratadine 10 mg tablet 10 mg PO DAILY RF: 0 nitrofurantoin macrocrystal 50 mg capsule 1 cap PO BEDTIME RF: 0 carbamazepine 200 mg tablet 400 mg PO BID RF: 0 tamsulosin 0.4 mg capsule 1 cap PO BEDTIME RF: 0 lorazepam 1 mg tablet 1 mg PO BID RF: 0 finasteride 5 mg tablet 1 tab PO QAM RF: 0 escitalopram oxalate 10 mg tablet 1 tab PO QAM RF: 0 aripiprazole 20 mg tablet 1 tab PO QAM RF: 0 Chantix 1 mg tablet 1 tab PO BID RF: 0 Lactobacillus acidophilus 100 mg (1 billion cell) capsule 1 cap PO QAM RF: 0 olanzapine 5 mg tablet 5 mg PO QAM AND QHS RF: 0 atorvastatin 10 mg tablet 10 mg PO BEDTIME RF: 0 hydroxyzine HCl 10 mg tablet 1 tab PO TID PRN (Reason: anxiety) RF: 0 lorazepam [Ativan] 0.5 mg Tablet 0.5 mg PO DAILY RF: 0 diphenhydramine HCl [Benadryl] 25 mg capsule 25 mg PO DAILY PRN (Reason: Anxiety) RF: 0 Referrals: Dk Rodriguez MD [Primary Care Provider] - 2 days
[2020-08-05 16:05] VITALS: BP 146/86; PULSE 72; RESP 18; TEMP 36.2; O2SAT 98
--- NOTE | 2020-08-05 16:20 | MHC.CARE ---
CARE Team checks in with pt, who reports that he called the police on himself due to thoughts of exposing his genitals in public. Pt states that abilify was recently increased and since this time he identifies increased irritability and anxiety. Pt seems to be slightly off baseline, pressured speech, somewhat labile. He denies any SI/HI/, and denies any intent to expose himself in public. CARE Team speaks with Santy from the [place] [facility]. They report similar observation of pt being off baseline, stating that he has been angry in the house, yelling and punching matias. They identify that he has been taking medications as prescribed. jail agrees that pt is not at imminent risk to himself or others. Pt identifies that he would like to go inpt at this time, made aware that there are no beds locally. Pt is in agreement with plan to d/c to the [place] [facility] and have a mobile N assessment there. He feels that he can keep himself safe in the community. CARE Team speaks with Jose Manuel Gutiérrez NP who agrees with this plan. Cab called on pt's behalf.
== END 2020-08-05 16:28 | disposition home or self-care (01) ==
PROVIDERS: Emergency Provider Emergency Medicine; PCP Internal Medicine
DX: F31.9 Bipolar disorder, unspecified (principal); F41.9 Anxiety disorder, unspecified; F17.210 Nicotine dependence, cigarettes, uncomplicated; Z79.899 Other long term (current) drug therapy
CPT/HCPCS: 99283; 99284

== ENCOUNTER 2020-08-09 02:32 | Emergency (ER) | payer MEDICARE, MEDICAID, SELFPAY ==
[2020-08-09 02:49] VITALS: BP 120/69; PULSE 82; RESP 18; TEMP 36.4; O2SAT 98; BMI 23.6
--- NOTE | 2020-08-09 02:50 | ED_ITS ---
HPI - Psych General Chief Complaint: Anxiety Stated Complaint: Crisis Time Seen by Provider: 08/09/20 02:50 Source: patient Mode of arrival: ambulatory Limitations: no limitations History of Present Illness HPI Narrative: 54 yo male with mental health issues comes in [facility] c/o anxiety wants to talk to [facility] about going to respite or getting out of his [facility] no SI/HI MD complaint: anxiety Onset (ago): day(s) Duration: intermittent History of same: Yes Relieving factors: none Exacerbating factors: other (penitentiary) Context: significant life stressor Associated psychiatric symptoms: none Associated symptoms: denies other symptoms Treatments prior to arrival: none Related Data Home Medications Medication Instructions Recorded Confirmed diphenhydramine HCl 25 mg capsule 25 mg PO DAILY PRN cap 04/08/20 07/19/20 Lactobacillus acidophilus 1 cap PO QAM 06/21/20 07/19/20 aripiprazole 1 tab PO QAM 06/21/20 07/19/20 carbamazepine 400 mg PO BID 06/21/20 07/19/20 escitalopram oxalate 1 tab PO QAM 06/21/20 07/19/20 finasteride 1 tab PO QAM 06/21/20 07/19/20 hydroxyzine HCl 1 tab PO TID PRN 06/21/20 07/19/20 lorazepam 1 mg PO BID 06/21/20 07/19/20 lorazepam [Ativan] 0.5 mg PO DAILY 06/21/20 07/19/20 nitrofurantoin macrocrystal 1 cap PO BEDTIME 06/21/20 07/19/20 olanzapine 5 mg PO QAM AND QHS 06/21/20 07/19/20 tamsulosin 1 cap PO BEDTIME 06/21/20 07/19/20 varenicline [Chantix] 1 tab PO BID 06/21/20 07/19/20 Previous Rx's Medication Instructions Recorded bethanechol chloride 50 mg tablet 50 mg PO TID #90 tab 05/19/20 multivitamin-iron 9 mg-folic acid 1 tab PO DAILY #30 tab 06/22/20 400 mcg-calcium and minerals tablet acetaminophen 500 mg tablet 500 mg PO Q4H #180 tab 08/05/20 atorvastatin 10 mg tablet 10 mg PO DAILY #30 tab 08/05/20 loratadine 10 mg tablet 10 mg PO DAILY PRN 30 Days #30 tab 03/03/21 Allergies Allergy/AdvReac Type Severity Reaction Status Date / Time No Known Allergies Allergy Unknown UNKNOWN Verified 08/05/20 14:58 [NO KNOWN ALLERGIES] Review of Systems Review of Systems: Constitutional : No Fever, No Chills ENT/Mouth : No Ear Pain, No Nasal Congestion, No sore throat Eyes: No Eye Pain, No Swelling, No Redness Cardiovascular : No Chest Pain, No SOB Respiratory : No Cough, No Sputum, No Dyspnea Gastrointestinal : No Nausea, No Vomiting, No Diarrhea, No Hematochezia, No Melena Genitourinary : No Dysuria, No Urinary Frequency, No Hematuria Musculoskeletal : No Myalgias Skin : No Skin Lesions, No rash Neuro : No Weakness, No Numbness, No Paresthesias, No Dizziness, No Headache Psych : positive Anxiety, positive Depression, no SI/HI Heme/Lymph: No Lymphadenopathy Endocrine : No Polyuria, No Polydipsia All other systems reviewed and are negative [facility] Past Medical History Attestation statement: The following information was validated with the patient. Medical History Anxiety Benign prostatic hyperplasia with lower urinary tract symptoms Bipolar 1 disorder Enlarged prostate Mood disorder Muscle strain of chest wall Pure hypercholesterolemia Right knee injury Schizoaffective disorder, bipolar type Smoker Thought disorder Surgical History History of open reduction and internal fixation (ORIF) procedure History of prostate surgery (~05/03/19) Family History Family History Father Lung cancer BPH (benign prostatic hyperplasia) Mother Dementia Brother Myocardial infarction Social History Social History Alcohol intake: former Smoking Status: Current some day smoker Tobacco Type: Cigarette Advance Directives: No Advance Directives Information Provided: No Physical Exam Vital Signs: Vital Signs: Last Vital Signs Temp 98.5 F 08/09/20 04:00 Pulse 77 08/09/20 04:00 Resp 16 08/09/20 04:00 BP 110/72 08/09/20 04:00 Pulse Ox 97 08/09/20 04:00 Body Mass Index 23.6 Appearance: Alert. Oriented X3. No acute distress. Eyes: Pupils equal, round and reactive to light. ENT: Pharynx normal. Neck: Normal inspection. Neck supple. CVS: Normal heart rate and rhythm. Pulses normal. Respiratory: No respiratory distress. Breath sounds normal. Abdomen: Soft and nontender. Skin: Skin warm and dry. Normal skin color. Normal skin turgor. Extremities: No lower extremity edema. No calf ttp Neuro: Oriented X 3. No motor deficit. No sensory deficit. Psych: + anxiety, no SI/HI Course Course Course Narrative: signed out pending [facility] consult MDM - Psych MDM Narrative Medical decision making narrative: 54 yo male with hx of anxiety comes in wants to talk to [facility] about going to respite states he can't take it anymore at the penit[facility], no SI, voluntarily here to talk to [facility], can leave at any time Discharge Plan Discharge Clinical Impression: Anxiety Patient Disposition: Home, Self-Care Instructions: Anxiety (ED) Additional Instructions: return to ED for any worsening symptoms or concerns Prescriptions: No Action bethanechol chloride 50 mg tablet 50 mg PO TID Qty: 90 RF: 2 yurkdmar-eyue-HC-calcium-mins [Thera-M] 9 mg iron-400 mcg tablet 1 tab PO DAILY Qty: 30 RF: 6 acetaminophen 500 mg tablet 500 mg PO Q4H Qty: 180 RF: 0 atorvastatin 10 mg tablet 10 mg PO DAILY Qty: 30 RF: 2 loratadine 10 mg tablet 10 mg PO DAILY PRN (Reason: allergy symptoms) 30 Days Qty: 30 RF: 4 nitrofurantoin macrocrystal 50 mg capsule 1 cap PO BEDTIME RF: 0 carbamazepine 200 mg tablet 400 mg PO BID RF: 0 tamsulosin 0.4 mg capsule 1 cap PO BEDTIME RF: 0 lorazepam 1 mg tablet 1 mg PO BID RF: 0 finasteride 5 mg tablet 1 tab PO QAM RF: 0 escitalopram oxalate 10 mg tablet 1 tab PO QAM RF: 0 aripiprazole 20 mg tablet 1 tab PO QAM RF: 0 Chantix 1 mg tablet 1 tab PO BID RF: 0 Lactobacillus acidophilus 100 mg (1 billion cell) capsule 1 cap PO QAM RF: 0 olanzapine 5 mg tablet 5 mg PO QAM AND QHS RF: 0 hydroxyzine HCl 10 mg tablet 1 tab PO TID PRN (Reason: anxiety) RF: 0 lorazepam [Ativan] 0.5 mg Tablet 0.5 mg PO DAILY RF: 0 diphenhydramine HCl [Benadryl] 25 mg capsule 25 mg PO DAILY PRN (Reason: Anxiety) RF: 0
[2020-08-09 04:00] VITALS: BP 110/72; PULSE 77; RESP 16; TEMP 36.9; O2SAT 97
--- NOTE | 2020-08-09 04:39 | PC.NURSE ---
PT RESTING IN BED SKIN PWD RESPIRATIONS EVEN UNLABORED. FAXED AND CALLED TO N. AWAITING CONSULT.
--- NOTE | 2020-08-09 07:01 | MHC.CARE ---
CARE Team spoke with patient, presents safe and stabled, he mentioned he was anxious for a little and [place] [facility] [place] Denies SI/HI. He is cleared from CARE Team.
== END 2020-08-09 07:46 | disposition home or self-care (01) ==
PROVIDERS: Emergency Provider Emergency Medicine; PCP Internal Medicine
DX: F41.9 Anxiety disorder, unspecified (principal); Z72.89 Other problems related to lifestyle; F31.9 Bipolar disorder, unspecified; F17.210 Nicotine dependence, cigarettes, uncomplicated; Z79.899 Other long term (current) drug therapy
CPT/HCPCS: 99284

== ENCOUNTER 2020-08-15 21:00 | Emergency (ER) | payer MEDICARE, MEDICAID, SELFPAY ==
--- NOTE | ~2020-08-15 | XR_ITS ---
EXAMINATION: XR KNEE, RIGHT CLINICAL INFORMATION: No injury. History of prior surgery. Pain. COMPARISON: Right knee 08/14/2019 TECHNIQUE: Four views of the right knee. FINDINGS: Status post ORIF of distal femur with orthopedic plate and screws. No acute abnormality. There is no fracture. No dislocation. There is no joint effusion. The femoral tibial and the patellofemoral joints are normal. There is no soft tissue calcification or calcified intra-articular loose body. XR/XR knee RT 2V IMPRESSION: Status post ORIF distal femur. No acute abnormality of the knee.
[2020-08-15 21:00] VITALS: BP 120/70; PULSE 88; RESP 16; TEMP 36.8; O2SAT 96; BMI 25.0
--- NOTE | 2020-08-15 21:43 | ED.LOWEXIN ---
HPI - Extremity Injury (Lower) General Chief Complaint: Extremity Injury, Lower Stated Complaint: Right knee pain Source: patient Mode of arrival: ambulatory Limitations: no limitations History of Present Illness HPI Narrative: 54-year-old male with schizoaffective disorder, anxiety, neurogenic bladder, hyperlipidemia, and BPH presents with right knee pain. He does not describe any traumatic injury, states that he walks everywhere and has had prior surgery. He does not describe any suicidal ideation, homicidal ideation, auditory and visual hallucinations, fevers, chills, chest pain or pressure, palpitations, shortness breath, abdominal distention, dysuria, hematuria, and edema MD complaint: knee injury Onset (ago): month(s) Type of Injury: unknown Place: home Severity: moderate Severity scale (1-10): 5 Relieving factors: nothing Exacerbating factors: weight bearing and movement Associated symptoms: ambulatory Other symptoms: none Related Data Home Medications Medication Instructions Recorded Confirmed diphenhydramine HCl 25 mg capsule 25 mg PO DAILY PRN cap 04/08/20 07/19/20 Lactobacillus acidophilus 1 cap PO QAM 06/21/20 07/19/20 aripiprazole 1 tab PO QAM 06/21/20 07/19/20 carbamazepine 400 mg PO BID 06/21/20 07/19/20 escitalopram oxalate 1 tab PO QAM 06/21/20 07/19/20 finasteride 1 tab PO QAM 06/21/20 07/19/20 hydroxyzine HCl 1 tab PO TID PRN 06/21/20 07/19/20 lorazepam 1 mg PO BID 06/21/20 07/19/20 lorazepam [Ativan] 0.5 mg PO DAILY 06/21/20 07/19/20 nitrofurantoin macrocrystal 1 cap PO BEDTIME 06/21/20 07/19/20 olanzapine 5 mg PO QAM AND QHS 06/21/20 07/19/20 tamsulosin 1 cap PO BEDTIME 06/21/20 07/19/20 varenicline [Chantix] 1 tab PO BID 06/21/20 07/19/20 Previous Rx's Medication Instructions Recorded bethanechol chloride 50 mg tablet 50 mg PO TID #90 tab 05/19/20 multivitamin-iron 9 mg-folic acid 1 tab PO DAILY #30 tab 06/22/20 400 mcg-calcium and minerals tablet acetaminophen 500 mg tablet 500 mg PO Q4H #180 tab 08/05/20 atorvastatin 10 mg tablet 10 mg PO DAILY #30 tab 08/05/20 loratadine 10 mg tablet 10 mg PO DAILY PRN 30 Days #30 tab 08/05/20 finasteride 5 mg tablet 5 mg PO DAILY 30 Days #30 tab 08/11/20 nitrofurantoin macrocrystal 50 mg 50 mg PO BEDTIME 30 Days #30 cap 08/11/20 capsule tamsulosin 0.4 mg capsule 0.4 mg PO BEDTIME 30 Days #30 cap 08/11/20 ibuprofen 600 mg PO Q8H PRN #20 tab 08/15/20 Allergies Allergy/AdvReac Type Severity Reaction Status Date / Time No Known Allergies Allergy Unknown UNKNOWN Verified 08/05/20 14:58 [NO KNOWN ALLERGIES] Review of Systems Review of Systems: Constitutional: No Fever, No Chills ENT/Mouth: No Ear Pain, No Hoarseness, No sore throat Eyes: No Eye Pain, No Swelling, No Redness, No Foreign Body Cardiovascular: No Chest Pain, No SOB Respiratory: No Cough, No Dyspnea Gastrointestinal: No Nausea, No Vomiting, No Diarrhea, No abdominal Pain Genitourinary: No Dysuria, No Hematuria Musculoskeletal: positive right knee pain, No Myalgias, No Joint Swelling Skin: No Skin lacerations, No rash Neuro: No Weakness, No Numbness, No Paresthesias, No Loss of Consciousness, No Dizziness, No Headache Psych: No Anxiety/Panic, No Depression Heme/Lymph: no easy bruising, no Lymphadenopathy Endocrine: No Polyuria, No Polydipsia Yes all other systems are reviewed and are negative ON LICENSE OF [facility] Past Medical History Attestation statement: The following information was validated with the patient. Source: old records reviewed Medical History Anxiety Benign prostatic hyperplasia with lower urinary tract symptoms Bipolar 1 disorder Enlarged prostate Mood disorder Muscle strain of chest wall Pure hypercholesterolemia Right knee injury Schizoaffective disorder, bipolar type Smoker Thought disorder Surgical History History of open reduction and internal fixation (ORIF) procedure History of prostate surgery (~05/03/19) Family History Family History Father Lung cancer BPH (benign prostatic hyperplasia) Mother Dementia Brother Myocardial infarction Social History Social History Alcohol intake: former Smoking Status: Current some day smoker Tobacco Type: Cigarette Advance Directives: No Physical Exam Vital Signs: Vital Signs: Last Vital Signs Temp 98.2 F 08/15/20 21:00 Pulse 88 08/15/20 21:00 Resp 16 08/15/20 21:00 BP 120/70 08/15/20 21:00 Pulse Ox 96 08/15/20 21:00 Body Mass Index 25.0 Appearance: Alert. Oriented X3. No acute distress. Eyes: Pupils equal, round and reactive to light. ENT: Pharynx normal. Neck: Normal inspection. Neck supple. CVS: Normal heart rate and rhythm. Pulses normal. Respiratory: No respiratory distress. Breath sounds normal. Abdomen: Soft and nontender. Skin: Skin warm and dry. Normal skin color. Normal skin turgor. Extremities: No lower extremity edema. Full range of motion to all extremities, strength 5/5. No indication of swelling, redness, effusion, negative posterior and anterior drawer. Neuro: No motor deficit. No sensory deficit. Cranial nerves 2-12 intact. Course Course Course Narrative: 54-year-old male with schizoaffective disorder, anxiety, neurogenic bladder, hyperlipidemia, and BPH presents with right knee pain. Plan of care is for Toradol injection and x-ray. X-ray shows status post ORIF without any abnormalities. Patient will be discharged home. Patient demanding blood work, asking for further testing as he wants to know if ?his insides are all right?. Patient was given a phone number list so he can find primary care physician. No further care needed at this time. Patient verbalized understanding of and agrees to plan of care discharge home. MDM - Extremity Injury (Lower) MDM Narrative Medical decision making narrative: Knee effusion, knee fracture, ligament injury, tendon injury Medical Records Attestation: I reviewed the patient's medical records. Lab Data Attestation: I reviewed the patient's lab results. Imaging Data Right knee x-ray: Attestation: I personally reviewed and interpreted this imaging study as follows: Radiologist's impression: EXAMINATION: XR KNEE, RIGHT CLINICAL INFORMATION: No injury. History of prior surgery. Pain. COMPARISON: Right knee 08/14/2019 TECHNIQUE: Four views of the right knee. FINDINGS: Status post ORIF of distal femur with orthopedic plate and screws. No acute abnormality. There is no fracture. No dislocation. There is no joint effusion. The femoral tibial and the patellofemoral joints are normal. There is no soft tissue calcification or calcified intra-articular loose body. XR/XR knee RT 2V IMPRESSION: Status post ORIF distal femur. No acute abnormality of the knee. Discharge Plan Discharge Clinical Impression: Acute knee pain Qualifiers: Laterality: right Qualified Code(s): M25.561 - Pain in right knee Patient Disposition: Home, Self-Care Instructions: Knee Pain (ED) Additional Instructions: You were evaluated for right knee pain. X-rays show that you have had right femur surgery, there are no indication of bone abnormality or hardware displacement. Please take Motrin as needed for pain management. Thank you for choosing this emergency department for evaluation. Please follow-up with primary care physician as needed. Return to the emergency department for any new, concerning, or worsening symptoms. Prescriptions: New ibuprofen 600 mg tablet 600 mg PO Q8H PRN (Reason: pain) Qty: 20 RF: 0 No Action bethanechol chloride 50 mg tablet 50 mg PO TID Qty: 90 RF: 2 ikeeuevz-tupm-DL-calcium-mins [Thera-M] 9 mg iron-400 mcg tablet 1 tab PO DAILY Qty: 30 RF: 6 acetaminophen 500 mg tablet 500 mg PO Q4H Qty: 180 RF: 0 atorvastatin 10 mg tablet 10 mg PO DAILY Qty: 30 RF: 2 loratadine 10 mg tablet 10 mg PO DAILY PRN (Reason: allergy symptoms) 30 Days Qty: 30 RF: 4 tamsulosin 0.4 mg capsule 0.4 mg PO BEDTIME 30 Days Qty: 30 RF: 4 finasteride 5 mg tablet 5 mg PO DAILY 30 Days Qty: 30 RF: 4 nitrofurantoin macrocrystal 50 mg capsule 50 mg PO BEDTIME 30 Days Qty: 30 RF: 4 nitrofurantoin macrocrystal 50 mg capsule 1 cap PO BEDTIME RF: 0 carbamazepine 200 mg tablet 400 mg PO BID RF: 0 tamsulosin 0.4 mg capsule 1 cap PO BEDTIME RF: 0 lorazepam 1 mg tablet 1 mg PO BID RF: 0 finasteride 5 mg tablet 1 tab PO QAM RF: 0 escitalopram oxalate 10 mg tablet 1 tab PO QAM RF: 0 aripiprazole 20 mg tablet 1 tab PO QAM RF: 0 Chantix 1 mg tablet 1 tab PO BID RF: 0 Lactobacillus acidophilus 100 mg (1 billion cell) capsule 1 cap PO QAM RF: 0 olanzapine 5 mg tablet 5 mg PO QAM AND QHS RF: 0 hydroxyzine HCl 10 mg tablet 1 tab PO TID PRN (Reason: anxiety) RF: 0 lorazepam [Ativan] 0.5 mg Tablet 0.5 mg PO DAILY RF: 0 diphenhydramine HCl [Benadryl] 25 mg capsule 25 mg PO DAILY PRN (Reason: Anxiety) RF: 0 Interventions: ED Discharge Assessment Last Done: 08/15/20 22:31 Discharge Date/Time: 08/15/20 22:32
[2020-08-15] MEDS: Ketorolac Tromethamine 60 MG/2 ML VIAL IM (21:56)
== END 2020-08-15 22:32 | disposition home or self-care (01) ==
PROVIDERS: Emergency Provider Internal Medicine; PCP Internal Medicine
DX: M25.561 Pain in right knee (principal); F17.210 Nicotine dependence, cigarettes, uncomplicated
CPT/HCPCS: 73560; 96372; 99284; J1885

== ENCOUNTER 2020-08-19 16:07 | Emergency (ER) | payer MEDICARE, MEDICAID, SELFPAY ==
[2020-08-19 16:18] VITALS: BP 112/81; PULSE 84; RESP 18; TEMP 36.9; O2SAT 96; BMI 25.2
[2020-08-19 16:25] VITALS: BP 112/81; PULSE 84; RESP 18; TEMP 36.9; O2SAT 96
--- NOTE | 2020-08-19 17:37 | ED_ITS ---
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 He does not describe any suicidal ideation, homicidal ideation, auditory and visual hallucinations, fevers, chills, chest pain or pressure, palpitations, shortness breath, abdominal distention, dysuria, hematuria, and edema. MD complaint: feels depressed and anxiety Onset (ago): year(s) Duration: constant Related Data Home Medications Medication Instructions Recorded Confirmed diphenhydramine HCl 25 mg capsule 25 mg PO DAILY PRN cap 04/08/20 07/19/20 Lactobacillus acidophilus 1 cap PO QAM 06/21/20 07/19/20 aripiprazole 1 tab PO QAM 06/21/20 07/19/20 carbamazepine 400 mg PO BID 06/21/20 07/19/20 escitalopram oxalate 1 tab PO QAM 06/21/20 07/19/20 finasteride 1 tab PO QAM 06/21/20 07/19/20 hydroxyzine HCl 1 tab PO TID PRN 06/21/20 07/19/20 lorazepam 1 mg PO BID 06/21/20 07/19/20 lorazepam [Ativan] 0.5 mg PO DAILY 06/21/20 07/19/20 nitrofurantoin macrocrystal 1 cap PO BEDTIME 06/21/20 07/19/20 olanzapine 5 mg PO QAM AND QHS 06/21/20 07/19/20 tamsulosin 1 cap PO BEDTIME 06/21/20 07/19/20 varenicline [Chantix] 1 tab PO BID 06/21/20 07/19/20 Previous Rx's Medication Instructions Recorded bethanechol chloride 50 mg tablet 50 mg PO TID #90 tab 05/19/20 multivitamin-iron 9 mg-folic acid 1 tab PO DAILY #30 tab 06/22/20 400 mcg-calcium and minerals tablet acetaminophen 500 mg tablet 500 mg PO Q4H #180 tab 08/05/20 atorvastatin 10 mg tablet 10 mg PO DAILY #30 tab 08/05/20 loratadine 10 mg tablet 10 mg PO DAILY PRN 30 Days #30 tab 08/05/20 finasteride 5 mg tablet 5 mg PO DAILY 30 Days #30 tab 08/11/20 nitrofurantoin macrocrystal 50 mg 50 mg PO BEDTIME 30 Days #30 cap 08/11/20 capsule tamsulosin 0.4 mg capsule 0.4 mg PO BEDTIME 30 Days #30 cap 08/11/20 ibuprofen 600 mg tablet 600 mg PO Q8H PRN 10 Days #30 tab 08/19/20 Allergies Allergy/AdvReac Type Severity Reaction Status Date / Time No Known Allergies Allergy Unknown UNKNOWN Verified 08/05/20 14:58 [NO KNOWN ALLERGIES] Review of Systems Review of Systems: Constitutional: No Fever, No Chills ENT/Mouth: No Ear Pain, No Nasal Congestion, No sore throat Eyes: No Eye Pain, No Swelling, No Redness Cardiovascular: No Chest Pain, No SOB Respiratory: No Cough, No Sputum, No Dyspnea Gastrointestinal: No Nausea, No Vomiting, No Diarrhea, No Hematochezia, No Melena Genitourinary: No Dysuria, No Urinary Frequency, No Hematuria Musculoskeletal: No Myalgias Skin: No Skin Lesions, No rash Neuro: No Weakness, No Numbness, No Paresthesias, No Dizziness, No Headache Psych: positive Anxiety, positive Depression, no SI/HI Heme/Lymph: No Lymphadenopathy Endocrine: No Polyuria, No Polydipsia Yes all other systems are reviewed and are negative [facility] Past Medical History Attestation statement: The following information was validated with the patient. Source: old records reviewed Medical History Anxiety Benign prostatic hyperplasia with lower urinary tract symptoms Bipolar 1 disorder Enlarged prostate Mood disorder Muscle strain of chest wall Pure hypercholesterolemia Right knee injury Schizoaffective disorder, bipolar type Smoker Thought disorder Surgical History History of open reduction and internal fixation (ORIF) procedure History of prostate surgery (~05/03/19) Family History Family History Father Lung cancer BPH (benign prostatic hyperplasia) Mother Dementia Brother Myocardial infarction Social History Social History Alcohol intake: former Smoking Status: Current some day smoker Tobacco Type: Cigarette Advance Directives: No Advance Directives Information Provided: Yes Physical Exam Vital Signs: Vital Signs: Last Vital Signs Temp 98.0 F 08/19/20 18:26 Pulse 70 08/19/20 18:26 Resp 16 08/19/20 18:26 BP 122/81 08/19/20 18:26 Pulse Ox 96 08/19/20 18:26 Body Mass Index 25.2 Appearance: Alert. Oriented X3. No acute distress. Eyes: Pupils equal, round and reactive to light. ENT: Pharynx normal. Neck: Normal inspection. Neck supple. CVS: Normal heart rate and rhythm. Pulses normal. Respiratory: No respiratory distress. Breath sounds normal. Abdomen: Soft and nontender. Skin: Skin warm and dry. Normal skin color. Normal skin turgor. Extremities: No lower extremity edema. Neuro: No motor deficit. No sensory deficit. 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 Will order Vistaril. He denies any medical complaints, SI, HI, or auditory visual hallucinations. Patient states to feel better, will plan to discharge home with outpatient follow-up. Patient verbalized understanding of and agrees to plan of care discharge home. MDM - Psych Differential Diagnosis Differential diagnosis: Likely depression, acute anxiety and schizoaffective disorder Medical Records Attestation: I reviewed the patient's medical records. Discharge Plan Discharge Clinical Impression: Anxiety Patient Disposition: Home, Self-Care Instructions: Anxiety (ED) Additional Instructions: Please follow-up with outpatient psychiatry as scheduled. Thank you for choosing this emergency department for evaluation. Please follow-up with primary care physician as needed. Return to the emergency department for any new, concerning, or worsening symptoms. Prescriptions: No Action bethanechol chloride 50 mg tablet 50 mg PO TID Qty: 90 RF: 2 zhfybdtq-jwjv-JP-calcium-mins [Thera-M] 9 mg iron-400 mcg tablet 1 tab PO DAILY Qty: 30 RF: 6 acetaminophen 500 mg tablet 500 mg PO Q4H Qty: 180 RF: 0 atorvastatin 10 mg tablet 10 mg PO DAILY Qty: 30 RF: 2 loratadine 10 mg tablet 10 mg PO DAILY PRN (Reason: allergy symptoms) 30 Days Qty: 30 RF: 4 tamsulosin 0.4 mg capsule 0.4 mg PO BEDTIME 30 Days Qty: 30 RF: 4 finasteride 5 mg tablet 5 mg PO DAILY 30 Days Qty: 30 RF: 4 nitrofurantoin macrocrystal 50 mg capsule 50 mg PO BEDTIME 30 Days Qty: 30 RF: 4 ibuprofen 600 mg tablet 600 mg PO Q8H PRN (Reason: pain) 10 Days Qty: 30 RF: 1 nitrofurantoin macrocrystal 50 mg capsule 1 cap PO BEDTIME RF: 0 carbamazepine 200 mg tablet 400 mg PO BID RF: 0 tamsulosin 0.4 mg capsule 1 cap PO BEDTIME RF: 0 lorazepam 1 mg tablet 1 mg PO BID RF: 0 finasteride 5 mg tablet 1 tab PO QAM RF: 0 escitalopram oxalate 10 mg tablet 1 tab PO QAM RF: 0 aripiprazole 20 mg tablet 1 tab PO QAM RF: 0 Chantix 1 mg tablet 1 tab PO BID RF: 0 Lactobacillus acidophilus 100 mg (1 billion cell) capsule 1 cap PO QAM RF: 0 olanzapine 5 mg tablet 5 mg PO QAM AND QHS RF: 0 hydroxyzine HCl 10 mg tablet 1 tab PO TID PRN (Reason: anxiety) RF: 0 lorazepam [Ativan] 0.5 mg Tablet 0.5 mg PO DAILY RF: 0 diphenhydramine HCl [Benadryl] 25 mg capsule 25 mg PO DAILY PRN (Reason: Anxiety) RF: 0 Interventions: ED Discharge Assessment Last Done: 08/19/20 19:48 Discharge Date/Time: 08/19/20 20:03
[2020-08-19 18:26] VITALS: BP 122/81; PULSE 70; RESP 16; TEMP 36.7; O2SAT 96
[2020-08-19] MEDS: hydrOXYzine HCL 50 MG TABLET PO (18:26)
== END 2020-08-19 20:03 | disposition home or self-care (01) ==
PROVIDERS: Emergency Provider Emergency Medicine
DX: F33.1 Major depressive disorder, recurrent, moderate (principal); F41.1 Generalized anxiety disorder; F43.0 Acute stress reaction; F17.210 Nicotine dependence, cigarettes, uncomplicated; Z71.6 Tobacco abuse counseling; Z79.899 Other long term (current) drug therapy
CPT/HCPCS: 99284; 99285

== ENCOUNTER 2020-08-30 01:00 | Emergency (ER) | payer MEDICARE, MEDICAID, SELFPAY ==
[2020-08-30 01:03] VITALS: BP 131/77; PULSE 97; RESP 16; TEMP 37.1; O2SAT 96; BMI 27.3
[2020-08-30 01:44] LABS: Amphetamine Screen Urine Not Detected (Not Detect); Barbiturates, Urine Not Detected (Not Detect); Benzodiazepines Screen Urine Not Detected (Not Detect); Cannabinoid Screen Urine Not Detected (Not Detect); Cocaine Screen Urine Not Detected (Not Detect); Opiate Screen Urine Not Detected (Not Detect); Phencyclidine Screen Urine Not Detected (Not Detect)
[2020-08-30 01:48] LABS: COVID-19 Test Negative (Negative); IDNOW Serial# 9DD0AD1C
--- NOTE | 2020-08-30 02:22 | ED_ITS ---
HPI - Anxiety General Chief Complaint: Anxiety Stated Complaint: Crisis Source: patient Mode of arrival: ambulatory Limitations: no limitations History of Present Illness HPI narrative: 54-year-old male with schizoaffective disorder, anxiety, neurogenic bladder, hyperlipidemia, and BPH presents with anxiety related to social problems at his longterm. He does not describe any suicidal ideation, homicidal ideation, auditory and visual hallucinations, fevers, chills, chest pain or pressure, palpitations, shortness breath, abdominal distention, dysuria, hematuria, and edema. MD complaint: anxiety Onset (ago): year(s) Severity: similar to previous episodes Place: home History of similar episodes: Yes Provoking factors: emotional stress Relieving factors: nothing Exacerbating factors: thinking about event Associated symptoms: denies other symptoms Related Data Home Medications Medication Instructions Recorded Confirmed diphenhydramine HCl 25 mg capsule 25 mg PO DAILY PRN cap 04/08/20 07/19/20 Lactobacillus acidophilus 1 cap PO QAM 06/21/20 07/19/20 aripiprazole 1 tab PO QAM 06/21/20 07/19/20 carbamazepine 400 mg PO BID 06/21/20 07/19/20 escitalopram oxalate 1 tab PO QAM 06/21/20 07/19/20 finasteride 1 tab PO QAM 06/21/20 07/19/20 hydroxyzine HCl 1 tab PO TID PRN 06/21/20 07/19/20 lorazepam 1 mg PO BID 06/21/20 07/19/20 lorazepam [Ativan] 0.5 mg PO DAILY 06/21/20 07/19/20 nitrofurantoin macrocrystal 1 cap PO BEDTIME 06/21/20 07/19/20 olanzapine 5 mg PO QAM AND QHS 06/21/20 07/19/20 tamsulosin 1 cap PO BEDTIME 06/21/20 07/19/20 varenicline [Chantix] 1 tab PO BID 06/21/20 07/19/20 Previous Rx's Medication Instructions Recorded bethanechol chloride 50 mg tablet 50 mg PO TID #90 tab 05/19/20 multivitamin-iron 9 mg-folic acid 1 tab PO DAILY #30 tab 06/22/20 400 mcg-calcium and minerals tablet acetaminophen 500 mg tablet 500 mg PO Q4H #180 tab 08/05/20 atorvastatin 10 mg tablet 10 mg PO DAILY #30 tab 08/05/20 loratadine 10 mg tablet 10 mg PO DAILY PRN 30 Days #30 tab 08/05/20 finasteride 5 mg tablet 5 mg PO DAILY 30 Days #30 tab 08/11/20 nitrofurantoin macrocrystal 50 mg 50 mg PO BEDTIME 30 Days #30 cap 08/11/20 capsule tamsulosin 0.4 mg capsule 0.4 mg PO BEDTIME 30 Days #30 cap 08/11/20 ibuprofen 600 mg tablet 600 mg PO Q8H PRN 10 Days #30 tab 08/19/20 Allergies Allergy/AdvReac Type Severity Reaction Status Date / Time No Known Allergies Allergy Unknown UNKNOWN Verified 08/30/20 01:02 [NO KNOWN ALLERGIES] Review of Systems Review of Systems: Constitutional: No Fever, No Chills ENT/Mouth: No Ear Pain, No Nasal Congestion, No sore throat Eyes: No Eye Pain, No Swelling, No Redness Cardiovascular: No Chest Pain, No SOB Respiratory: No Cough, No Sputum, No Dyspnea Gastrointestinal: No Nausea, No Vomiting, No Diarrhea, No Hematochezia, No Melena Genitourinary: No Dysuria, No Urinary Frequency, No Hematuria Musculoskeletal: No Myalgias Skin: No Skin Lesions, No rash Neuro: No Weakness, No Numbness, No Paresthesias, No Dizziness, No Headache Psych: positive Anxiety, no Depression, no SI/HI Heme/Lymph: No Lymphadenopathy Endocrine: No Polyuria, No Polydipsia Yes all other systems are reviewed and are negative [facility] Past Medical History Attestation statement: The following information was validated with the patient. Source: old records reviewed Medical History Anxiety Benign prostatic hyperplasia with lower urinary tract symptoms Bipolar 1 disorder Enlarged prostate Mood disorder Muscle strain of chest wall Pure hypercholesterolemia Right knee injury Schizoaffective disorder, bipolar type Smoker Thought disorder Surgical History History of open reduction and internal fixation (ORIF) procedure History of prostate surgery (~05/03/19) Family History Family History Father Lung cancer BPH (benign prostatic hyperplasia) Mother Dementia Brother Myocardial infarction Social History Social History Alcohol intake: former Smoking Status: Current some day smoker Tobacco Type: Cigarette Advance Directives: No Physical Exam Vital Signs: Vital Signs: Last Vital Signs Temp 98.7 F 08/30/20 01:03 Pulse 97 08/30/20 01:03 Resp 16 08/30/20 01:03 BP 131/77 08/30/20 01:03 Pulse Ox 96 08/30/20 01:03 Body Mass Index 27.3 Appearance: Alert. Oriented X3. Moderate emotional distress. Eyes: Pupils equal, round and reactive to light. ENT: Pharynx normal. Neck: Normal inspection. Neck supple. CVS: Normal heart rate and rhythm. Pulses normal. Respiratory: No respiratory distress. Breath sounds normal. Abdomen: Soft and nontender. Skin: Skin warm and dry. Normal skin color. Normal skin turgor. Extremities: No lower extremity edema. Neuro: No motor deficit. No sensory deficit. Course Course Course Narrative: 54-year-old male with schizoaffective disorder, anxiety, neurogenic bladder, hyperlipidemia, and BPH presents with anxiety related to social problems at his longterm. Patient denies SI, HI, auditory and visual hallucinations. There is no further workup or solution that the emergency room can provide for his problems. Plan of care is to discharge home. MDM - Anxiety Differential Diagnosis Differential diagnosis: Likely acute anxiety Medical Records Attestation: I reviewed the patient's medical records. Lab Data Attestation: I reviewed the patient's lab results. Labs: Lab Results 08/30/20 08/30/20 Range/Units 01:18 01:24 Urine Opiates Screen Not Detected (Not Detect) Ur Barbiturates Screen Not Detected (Not Detect) Ur Phencyclidine Scrn Not Detected (Not Detect) Ur Amphetamines Screen Not Detected (Not Detect) U Benzodiazepines Scrn Not Detected (Not Detect) Urine Cocaine Screen Not Detected (Not Detect) U Marijuana (THC) Screen Not Detected (Not Detect) COVID-19 (LEE) Negative (Negative) COVID-19 Clin Com See Note Discharge Plan Discharge Clinical Impression: Anxiety Patient Disposition: Home, Self-Care Instructions: Anxiety (ED) Additional Instructions: Please follow-up with outpatient psychiatry. Thank you for choosing this emergency department for evaluation. Please follow-up with primary care physician as needed. Return to the emergency department for any new, concerning, or worsening symptoms. Prescriptions: No Action bethanechol chloride 50 mg tablet 50 mg PO TID Qty: 90 RF: 2 stsszmnv-nzja-MC-calcium-mins [Thera-M] 9 mg iron-400 mcg tablet 1 tab PO DAILY Qty: 30 RF: 6 acetaminophen 500 mg tablet 500 mg PO Q4H Qty: 180 RF: 0 atorvastatin 10 mg tablet 10 mg PO DAILY Qty: 30 RF: 2 loratadine 10 mg tablet 10 mg PO DAILY PRN (Reason: allergy symptoms) 30 Days Qty: 30 RF: 4 tamsulosin 0.4 mg capsule 0.4 mg PO BEDTIME 30 Days Qty: 30 RF: 4 finasteride 5 mg tablet 5 mg PO DAILY 30 Days Qty: 30 RF: 4 nitrofurantoin macrocrystal 50 mg capsule 50 mg PO BEDTIME 30 Days Qty: 30 RF: 4 ibuprofen 600 mg tablet 600 mg PO Q8H PRN (Reason: pain) 10 Days Qty: 30 RF: 1 nitrofurantoin macrocrystal 50 mg capsule 1 cap PO BEDTIME RF: 0 carbamazepine 200 mg tablet 400 mg PO BID RF: 0 tamsulosin 0.4 mg capsule 1 cap PO BEDTIME RF: 0 lorazepam 1 mg tablet 1 mg PO BID RF: 0 finasteride 5 mg tablet 1 tab PO QAM RF: 0 escitalopram oxalate 10 mg tablet 1 tab PO QAM RF: 0 aripiprazole 20 mg tablet 1 tab PO QAM RF: 0 Chantix 1 mg tablet 1 tab PO BID RF: 0 Lactobacillus acidophilus 100 mg (1 billion cell) capsule 1 cap PO QAM RF: 0 olanzapine 5 mg tablet 5 mg PO QAM AND QHS RF: 0 hydroxyzine HCl 10 mg tablet 1 tab PO TID PRN (Reason: anxiety) RF: 0 lorazepam [Ativan] 0.5 mg Tablet 0.5 mg PO DAILY RF: 0 diphenhydramine HCl [Benadryl] 25 mg capsule 25 mg PO DAILY PRN (Reason: Anxiety) RF: 0
--- NOTE | 2020-08-30 06:33 | PC.NURSE ---
care home called and spoke with Jose, made aware that patient will be discharged in the morning. care home is ok with discharge plan and notified us that they don't have any concern regarding his getting back to [facility], patient had returned back to [facility] safely multi[place] [facility] [place], mostly walking back.
--- NOTE | 2020-08-30 07:17 | PC.NURSE ---
Report received from DOMINICK Grimes. Pt resting, resp unlabored.
[2020-08-30 08:00] VITALS: RESP 20
--- NOTE | 2020-08-30 08:47 | PC.NURSE ---
Pt awakened, offered breakfast, reminded that he will be discharged shortly. Affect even, no concerns reported.
[2020-08-30 08:50] VITALS: BP 108/84; PULSE 81; RESP 18; TEMP 36.8; O2SAT 98
--- NOTE | 2020-08-30 09:09 | PC.NURSE ---
Pt given discharge instructions, verbalized understanding of instructions, no concerns reported. Pt ate breakfast prior to leaving.
== END 2020-08-30 09:13 | disposition home or self-care (01) ==
PROVIDERS: Nurse Practitioner Family; Emergency Provider Emergency Medicine; PCP Internal Medicine
DX: F41.1 Generalized anxiety disorder (principal); F43.0 Acute stress reaction; Z20.822 Contact with and (suspected) exposure to COVID-19; Z87.891 Personal history of nicotine dependence; Z79.899 Other long term (current) drug therapy
CPT/HCPCS: 36415; 80307; 87635; 99283; 99284

== ENCOUNTER 2020-09-02 03:04 | Emergency (ER) | payer MEDICARE, MEDICAID, SELFPAY ==
[2020-09-02 03:18] VITALS: BP 124/65; PULSE 84; RESP 15; TEMP 36; O2SAT 96; BMI 25.0
[2020-09-02 04:24] LABS: Appearance Urine CLEAR; Color Urine YELLOW; Glucose Urine UA NEG (NEG); Leukocyte Esterase Urine NEG (NEG); Nitrite Urine NEG (NEG); Urine Blood TRACE (NEG); Urine Ketones NEG (NEG); Urine Protein NEG (NEG-TRACE)
--- NOTE | 2020-09-02 04:27 | ED_ITS ---
HPI - Male Genitourinary General Chief complaint: Urogenital-Male Stated complaint: BLADDER INFECTION Time Seen by Provider: 09/02/20 03:36 Source: patient Mode of arrival: ambulatory Limitations: no limitations History of Present Illness HPI Narrative: Appearance: Alert. Oriented X3. No acute distress. Eyes: Pupils equal, round and reactive to light. ENT: Pharynx normal. Neck: Normal inspection. Neck supple. CVS: Normal heart rate and rhythm. Pulses normal. Respiratory: No respiratory distress. Breath sounds normal. Abdomen: Soft and nontender. Bowel sounds are present, no mass palpable, no CVA tenderness Skin: Skin warm and dry. Normal skin color. Normal skin turgor. Extremities: No lower extremity edema. Neuro: Oriented X 3. No motor deficit. No sensory deficit.Patient anxiety PTSD is affective disorder had a chronic urinary problems was seen by urologist yesterday and antibiotics were stopped for a week ago which was not indicated at this time per urologist but patient wants antibiotic as he feels that he may get infection and he feels a urine is dirty no fever no chills no nausea no vomiting multiple complaints otherwise patient has been here multiple times for similar situation Related Data Home Medications Medication Instructions Recorded Confirmed diphenhydramine HCl 25 mg capsule 25 mg PO DAILY PRN cap 04/08/20 07/19/20 Lactobacillus acidophilus 1 cap PO QAM 06/21/20 07/19/20 aripiprazole 1 tab PO QAM 06/21/20 07/19/20 carbamazepine 400 mg PO BID 06/21/20 07/19/20 escitalopram oxalate 1 tab PO QAM 06/21/20 07/19/20 finasteride 1 tab PO QAM 06/21/20 07/19/20 hydroxyzine HCl 1 tab PO TID PRN 06/21/20 07/19/20 lorazepam 1 mg PO BID 06/21/20 07/19/20 lorazepam [Ativan] 0.5 mg PO DAILY 06/21/20 07/19/20 nitrofurantoin macrocrystal 1 cap PO BEDTIME 06/21/20 07/19/20 olanzapine 5 mg PO QAM AND QHS 06/21/20 07/19/20 tamsulosin 1 cap PO BEDTIME 06/21/20 07/19/20 varenicline [Chantix] 1 tab PO BID 06/21/20 07/19/20 Previous Rx's Medication Instructions Recorded bethanechol chloride 50 mg tablet 50 mg PO TID #90 tab 05/19/20 multivitamin-iron 9 mg-folic acid 1 tab PO DAILY #30 tab 06/22/20 400 mcg-calcium and minerals tablet acetaminophen 500 mg tablet 500 mg PO Q4H #180 tab 08/05/20 atorvastatin 10 mg tablet 10 mg PO DAILY #30 tab 08/05/20 loratadine 10 mg tablet 10 mg PO DAILY PRN 30 Days #30 tab 08/05/20 finasteride 5 mg tablet 5 mg PO DAILY 30 Days #30 tab 08/11/20 nitrofurantoin macrocrystal 50 mg 50 mg PO BEDTIME 30 Days #30 cap 08/11/20 capsule tamsulosin 0.4 mg capsule 0.4 mg PO BEDTIME 30 Days #30 cap 08/11/20 ibuprofen 600 mg tablet 600 mg PO Q8H PRN 10 Days #30 tab 08/19/20 Allergies Allergy/AdvReac Type Severity Reaction Status Date / Time No Known Allergies Allergy Unknown UNKNOWN Verified 08/30/20 01:02 [NO KNOWN ALLERGIES] Review of Systems Review of Systems: Constitutional : No Weight loss, No Fever, No Chills ENT/Mouth : No sore throat, No Rhinorrhea Eyes: No Eye Pain, No Swelling Cardiovascular : No Chest Pain, no palpitations Respiratory : No Cough, No Sputum, no shortness of breath Gastrointestinal : no Nausea, No Vomiting, No Diarrhea, No abdominal Pain, no black stools Genitourinary : + Dysuria, No Urinary Frequency Musculoskeletal : No joint pain, No Myalgias, No Joint Swelling Skin : No Skin Lesions, No rash Neuro : No Weakness, No Numbness, No Dizziness, No Headache Psych : + Anxiety/Panic, No Depression Heme/Lymph: No Bruising, No Lymphadenopathy Endocrine : No Polyuria, No Polydipsia All other systems reviewed and are negative PMFSH Past Medical History Medical History Anxiety Benign prostatic hyperplasia with lower urinary tract symptoms Bipolar 1 disorder Enlarged prostate Mood disorder Muscle strain of chest wall Pure hypercholesterolemia Right knee injury Schizoaffective disorder, bipolar type Smoker Thought disorder Surgical History History of open reduction and internal fixation (ORIF) procedure History of prostate surgery (~05/03/19) Family History Family History Father Lung cancer BPH (benign prostatic hyperplasia) Mother Dementia Brother Myocardial infarction Social History Social History Alcohol intake: former Smoking Status: Current every day smoker Tobacco Type: Cigarette Use of substances other than those prescribed or required for medical reasons: No Advance Directives: No Physical Exam Vital Signs: Vital Signs: Last Vital Signs Temp 96.8 F 09/02/20 03:18 Pulse 84 09/02/20 03:18 Resp 15 09/02/20 03:18 BP 124/65 09/02/20 03:18 Pulse Ox 96 09/02/20 03:18 Body Mass Index 25.0 Appearance: Alert. Oriented X3. No acute distress, anxious. Eyes: Pupils equal, round and reactive to light. ENT: Pharynx normal. Neck: Normal inspection. Neck supple. CVS: Normal heart rate and rhythm. Pulses normal. Respiratory: No respiratory distress. Breath sounds normal. Abdomen: Soft and nontender. Bowel sounds are present, no mass palpable, no CVA tenderness Skin: Skin warm and dry. Normal skin color. Normal skin turgor. Extremities: No lower extremity edema. Neuro: Oriented X 3. No motor deficit. No sensory deficit. MDM - Male Genitourinary MDM Narrative Medical decision making narrative: Patient urine is negative for infection patient advised to follow with urologist and he does not have any infection does not need any antibiotics Medical Records Attestation: I reviewed the patient's medical records. Lab Data Attestation: I reviewed the patient's lab results. Labs: Lab Results 09/02/20 Range/Units 04:11 Urine Color YELLOW Urine Appearance CLEAR Urine pH 7.0 (5.0-8.0) Ur Specific [place] 1.010 (1.005-1.025) Urine Protein NEG (NEG-TRACE) MG/DL Urine Glucose (UA) NEG (NEG) MG/DL Urine Ketones NEG (NEG) MG/DL Urine Blood TRACE (NEG) Urine Nitrite NEG (NEG) Ur Leukocyte Esterase NEG (NEG) Urine RBC 0-2 (0) /HPF Urine WBC 0-2 (0-4) /HPF Ur Squamous Epith Cells NONE /LPF Urine Bacteria NONE /LPF Discharge Plan Discharge Clinical Impression: Anxiety Patient Disposition: Home, Self-Care Instructions: Anxiety (ED) Additional Instructions: Your urine is negative for any infection, and you do not need any antibiotics follow-up with urologist as planned Prescriptions: No Action bethanechol chloride 50 mg tablet 50 mg PO TID Qty: 90 RF: 2 iqdtrbco-uivc-DI-calcium-mins [Thera-M] 9 mg iron-400 mcg tablet 1 tab PO DAILY Qty: 30 RF: 6 acetaminophen 500 mg tablet 500 mg PO Q4H Qty: 180 RF: 0 atorvastatin 10 mg tablet 10 mg PO DAILY Qty: 30 RF: 2 loratadine 10 mg tablet 10 mg PO DAILY PRN (Reason: allergy symptoms) 30 Days Qty: 30 RF: 4 tamsulosin 0.4 mg capsule 0.4 mg PO BEDTIME 30 Days Qty: 30 RF: 4 finasteride 5 mg tablet 5 mg PO DAILY 30 Days Qty: 30 RF: 4 nitrofurantoin macrocrystal 50 mg capsule 50 mg PO BEDTIME 30 Days Qty: 30 RF: 4 ibuprofen 600 mg tablet 600 mg PO Q8H PRN (Reason: pain) 10 Days Qty: 30 RF: 1 nitrofurantoin macrocrystal 50 mg capsule 1 cap PO BEDTIME RF: 0 carbamazepine 200 mg tablet 400 mg PO BID RF: 0 tamsulosin 0.4 mg capsule 1 cap PO BEDTIME RF: 0 lorazepam 1 mg tablet 1 mg PO BID RF: 0 finasteride 5 mg tablet 1 tab PO QAM RF: 0 escitalopram oxalate 10 mg tablet 1 tab PO QAM RF: 0 aripiprazole 20 mg tablet 1 tab PO QAM RF: 0 Chantix 1 mg tablet 1 tab PO BID RF: 0 Lactobacillus acidophilus 100 mg (1 billion cell) capsule 1 cap PO QAM RF: 0 olanzapine 5 mg tablet 5 mg PO QAM AND QHS RF: 0 hydroxyzine HCl 10 mg tablet 1 tab PO TID PRN (Reason: anxiety) RF: 0 lorazepam [Ativan] 0.5 mg Tablet 0.5 mg PO DAILY RF: 0 diphenhydramine HCl [Benadryl] 25 mg capsule 25 mg PO DAILY PRN (Reason: Anxiety) RF: 0 Interventions: ED Discharge Assessment Last Done: 09/02/20 05:19 Discharge Date/Time: 09/02/20 05:24
[2020-09-02 04:30] LABS: RBC Urine 0-2 /HPF (0); WBC Urine 0-2 /HPF (0-4)
== END 2020-09-02 05:24 | disposition home or self-care (01) ==
PROVIDERS: Emergency Provider Internal Medicine; PCP Internal Medicine
DX: F41.9 Anxiety disorder, unspecified (principal); F31.9 Bipolar disorder, unspecified; F17.200 Nicotine dependence, unspecified, uncomplicated; Z79.899 Other long term (current) drug therapy
CPT/HCPCS: 81001; 99283; 99284

== ENCOUNTER 2020-09-05 13:02 | Emergency (ER) | payer MEDICARE, MEDICAID, SELFPAY ==
[2020-09-05 13:09] VITALS: BP 136/80; PULSE 96; RESP 18; TEMP 36.6; O2SAT 97; BMI 25.8
[2020-09-05 13:55] LABS: MANUAL DIFF FLAG NO
[2020-09-05 13:57] LABS: Basophils Absolute Auto 0.1 X10*3/uL (0.0-0.2); Basophils Percent Auto 0.9 % (0-2); Eosinophils Absolute Auto 0.2 X10*3/uL (0.0-0.4); Eosinophils Percent Auto 2.6 % (0-4); Hemoglobin 13.6 g/dl (14.0-18.0); Imm Gran Abs Auto 0.01 X10*3/uL (0.00-0.03); Imm Gran Pct Auto 0.2 % (0.0-0.4); Lymphocytes Absolute Auto 1.1 X10*3/uL (1.2-4.9); Lymphocytes Percent Auto 15.8 % (20-40); Mean Corpuscular Hemoglobin 31.6 pg (27.0-33.0); Mean Platelet Volume 8.5 fL (9.4-12.4); Monocytes Absolute Auto 0.6 X10*3/uL (0.1-1.2); Monocytes Percent Auto 9.3 % (2-11); Neutrophils Absolute Auto 4.8 X10*3/uL (2.0-8.3); Neutrophils Percent Auto 71.2 % (45-73); Platelet Count 235 X10*3/uL (160-400); Red Cell Distribution Width 12.6 % (11.0-16.0); White Blood Count 6.7 X10*3/uL (4.8-10.8)
[2020-09-05 13:59] LABS: Glucose Urine UA NEG (NEG); Leukocyte Esterase Urine NEG (NEG); Nitrite Urine NEG (NEG); Specific Gravity - Urine 1.025 (1.005-1.025); Urine Blood NEG (NEG); Urine Ketones 5 MG/DL (NEG); Urine Protein NEG (NEG-TRACE)
[2020-09-05 14:00] LABS: Appearance Urine HAZY; Color Urine AMBER
[2020-09-05 14:09] LABS: Mucus Urine TRACE /LPF; RBC Urine 0-2 /HPF (0); WBC Urine 0 /HPF (0-4)
[2020-09-05 14:30] LABS: Alanine Aminotransferase 23 U/L (0-40); Alkaline Phosphatase 81 U/L (39-117); Anion Gap 12 (12-20); Aspartate Amino Transferase 23 U/L (5-37); Bilirubin Total 0.4 mg/dL (0.0-1.0); Blood Urea Nitrogen 18 mg/dL (9-16); Calcium 8.8 mg/dL (8.4-10.2); Carbon Dioxide 24 mmol/L (22-29); Chloride 101 mmol/L (96-108); Creatinine Clr Calc Pharmacy 103.8; Estimated Glomerular Filt Rate > 60; Glucose Random 106 mg/dL (60-115); Potassium 4.1 mmol/L (3.3-5.1); Sodium 133 mmol/L (135-145); Total Protein 6.5 g/dL (6.5-8.0)
--- NOTE | 2020-09-05 15:16 | ED_ITS ---
HPI - General Adult General Chief complaint: General Medical Stated complaint: ABD PAIN VOMITING Time Seen by Provider: 09/05/20 13:18 Source: patient Mode of arrival: ambulatory Limitations: no limitations History of Present Illness HPI narrative: States he is anxious about him having another possible urine infection and feels that he needs antibiotics. States he does not have any new urinary symptoms however he has been on antibiotic for many years on and off and feels like he might be in withdrawals from the antibiotics (Macrobid). States he told the assisted about this and feels like they are not listening to him. Additionally he sees Urology here and recently at [facility] he just had an appointment couple days ago and plan for follow-up in 3 weeks however after appointment he was not given antibiotics and questions this. He otherwise denies any fever or chills. Denies any abdominal pain, hematuria, flow changes, nausea, vomiting, diarrhea, chest pain, shortness of breath. No SI or HI. Onset (ago): day(s) Severity: moderate Relieving factors: none Exacerbating factors: none Associated symptoms: denies other symptoms Treatments prior to arrival: none Related Data Home Medications Medication Instructions Recorded Confirmed diphenhydramine HCl 25 mg capsule 25 mg PO DAILY PRN cap 04/08/20 07/19/20 Lactobacillus acidophilus 1 cap PO QAM 06/21/20 07/19/20 aripiprazole 1 tab PO QAM 06/21/20 07/19/20 carbamazepine 400 mg PO BID 06/21/20 07/19/20 escitalopram oxalate 1 tab PO QAM 06/21/20 07/19/20 finasteride 1 tab PO QAM 06/21/20 07/19/20 hydroxyzine HCl 1 tab PO TID PRN 06/21/20 07/19/20 lorazepam 1 mg PO BID 06/21/20 07/19/20 lorazepam [Ativan] 0.5 mg PO DAILY 06/21/20 07/19/20 nitrofurantoin macrocrystal 1 cap PO BEDTIME 06/21/20 07/19/20 olanzapine 5 mg PO QAM AND QHS 06/21/20 07/19/20 tamsulosin 1 cap PO BEDTIME 06/21/20 07/19/20 varenicline [Chantix] 1 tab PO BID 06/21/20 07/19/20 Previous Rx's Medication Instructions Recorded bethanechol chloride 50 mg tablet 50 mg PO TID #90 tab 05/19/20 multivitamin-iron 9 mg-folic acid 1 tab PO DAILY #30 tab 06/22/20 400 mcg-calcium and minerals tablet acetaminophen 500 mg tablet 500 mg PO Q4H #180 tab 08/05/20 atorvastatin 10 mg tablet 10 mg PO DAILY #30 tab 08/05/20 loratadine 10 mg tablet 10 mg PO DAILY PRN 30 Days #30 tab 08/05/20 finasteride 5 mg tablet 5 mg PO DAILY 30 Days #30 tab 08/11/20 nitrofurantoin macrocrystal 50 mg 50 mg PO BEDTIME 30 Days #30 cap 08/11/20 capsule tamsulosin 0.4 mg capsule 0.4 mg PO BEDTIME 30 Days #30 cap 08/11/20 ibuprofen 600 mg tablet 600 mg PO Q8H PRN 10 Days #30 tab 08/19/20 Allergies Allergy/AdvReac Type Severity Reaction Status Date / Time No Known Allergies Allergy Unknown UNKNOWN Verified 08/30/20 01:02 [NO KNOWN ALLERGIES] Review of Systems Review of Systems: Constitutional: No Weight loss, No Fever, No Chills, No Night Sweats, No Fatigue, No Malaise ENT/Mouth: No Hearing loss, No Ear Pain, No Nasal Congestion, No Sinus Pain, No Hoarseness, No sore throat, No Rhinorrhea, No Swallowing Difficulty Eyes: No Eye Pain, No Swelling, No Redness, No Foreign Body, No Discharge, No Vision Changes Cardiovascular: No Chest Pain, No SOB, No Dyspnea on Exertion, No Orthopnea, No Edema, No Palpitations Respiratory: No Cough, No Sputum, No Wheezing, No Smoke Exposure, No Dyspnea Gastrointestinal: No Nausea, No Vomiting, No Diarrhea, No Constipation, No abd ominal Pain, No Hematochezia, No Melena Genitourinary: no irregular bleeding, No Dysuria, No Urinary Frequency, No Hematuria, No Urinary Incontinence, No Urgency, No Flank Pain, No Urinary Flow Changes, No Hesitancy Musculoskeletal: No joint pain, No Myalgias, No Joint Swelling Skin: No Skin Lesions, No rash Neuro: No Weakness, No Numbness, No Paresthesias, No Loss of Consciousness, No Dizziness, No Headache Psych: + Anxiety/Panic, No Depression, No SI/HI/AH/VH, No Social Issues Heme/Lymph: No Bruising, No Bleeding,No Lymphadenopathy Endocrine: No Polyuria, No Polydipsia, No Temperature Intolerance Yes all other systems are reviewed and are negative [facility] Past Medical History Medical History Anxiety Benign prostatic hyperplasia with lower urinary tract symptoms Bipolar 1 disorder Enlarged prostate Mood disorder Muscle strain of chest wall Pure hypercholesterolemia Right knee injury Schizoaffective disorder, bipolar type Smoker Thought disorder Surgical History History of open reduction and internal fixation (ORIF) procedure History of prostate surgery (~05/03/19) Family History Family History Father Lung cancer BPH (benign prostatic hyperplasia) Mother Dementia Brother Myocardial infarction Social History Social History Alcohol intake: unknown Smoking Status: Current every day smoker Tobacco Type: Cigarette Smoked in Last 30 Days: Yes Use of substances other than those prescribed or required for medical reasons: No Advance Directives: No Advance Directives Information Provided: No Physical Exam Vital Signs: Vital Signs: Last Vital Signs Temp 98 F 09/05/20 13:09 Pulse 96 09/05/20 13:09 Resp 18 09/05/20 13:09 BP 136/80 09/05/20 13:09 Pulse Ox 97 09/05/20 13:09 Body Mass Index 25.8 Reviewed Const: General: cooperative, healthy appearing and anxious; No acute distress or intoxicated appearing Nutritional Appearance: average body habitus Orientation/consciousness: patient oriented x3 HENMT: Head: Yes normal to inspection Ears: hearing grossly normal bilaterally Eyes: General: appearance normal, both eyes and all related structures Visual Poon: normal visual poon by confrontation Neck: Neck: Yes normal visual inspection, No positive Brudzinski's sign, No positive Kernig's sign and No tender Thyroid: Thyroid normal Chest: Chest palpation & inspection: normal inspection of the chest Resp: Effort & Inspection: normal respiratory effort Auscultation: clear to auscultation bilaterally Cardio: Jugular venous distension: no JVD Rhythm: regular rhythm Heart sounds: S1 normal heart sound present and S2 normal heart sound present GI: Inspection: Yes normal to inspection Palpation (GI): Soft to palpation Percussion: Yes normal to percussion Auscultation: normal bowel sounds : General: Yes no CVA tenderness Back/Spine/Pelvis: Back: no CVA tenderness Skin: General skin exam: no rashes or lesions noted Neuro: General: patient oriented x3 Extrem: General: Yes normal to inspection Psych: Appearance: grossly normal Course Course Course Narrative: He appears well, vitals are stable. Does intermittently become fixated on having bladder infections no concerning symptoms at this time. Will check a UA and basic labs though my suspicions for any systemic infections are low he had a urine test done within the last week that was negative as well. He offers no psychiatric complaints at this time will defer on crisis eval. Reevaluation(s) Reevaluation #1: Labs overall reassuring he feels much more comfortable now. Will return back to assisted and follow-up with his primary care/urologist. Medical Decision Making Lab Data Result diagrams: 09/05/20 13:50 09/05/20 13:50 Labs: Lab Results 09/05/20 09/05/20 09/05/20 Range/Units 13:50 13:50 13:50 WBC 6.7 (4.8-10.8) X10*3/uL RBC 4.30 L (4.60-5.80) X10*6/uL Hgb 13.6 L (14.0-18.0) g/dl Hct 40.0 L (42-52) % MCV 93.0 (80-98) fL MCH 31.6 (27.0-33.0) pg MCHC 34.0 (31.0-36.0) g/dl RDW 12.6 (11.0-16.0) % Plt Count 235 (160-400) X10*3/uL MPV 8.5 L (9.4-12.4) fL Immature Gran % (Auto) 0.2 (0.0-0.4) % Neut % (Auto) 71.2 (45-73) % Lymph % (Auto) 15.8 L (20-40) % Pershing % (Auto) 9.3 (2-11) % Eos % (Auto) 2.6 (0-4) % Baso % (Auto) 0.9 (0-2) % Lymph # (Auto) 1.1 L (1.2-4.9) X10*3/uL Pershing # (Auto) 0.6 (0.1-1.2) X10*3/uL Eos # (Auto) 0.2 (0.0-0.4) X10*3/uL Baso # (Auto) 0.1 (0.0-0.2) X10*3/uL Abs Immat Gran (auto) 0.01 (0.00-0.03) X10*3/uL Absolute Neuts (auto) 4.8 (2.0-8.3) X10*3/uL Absolute Nucleated RBC 0.000 (0.0-0.012) X10*3/uL Nucleated RBC % (auto) 0.0 (0.0-0.2) /100WBC Sodium 133 L (135-145) mmol/L Potassium 4.1 (3.3-5.1) mmol/L Chloride 101 (96-108) mmol/L Carbon Dioxide 24 (22-29) mmol/L Anion Gap 12 (12-20) BUN 18 H (9-16) mg/dL Creatinine 0.76 (0.5-1.4) mg/dL Estim Creat Clear Calc 103.8 Estimated GFR > 60 Random Glucose 106 (60-115) mg/dL Calcium 8.8 (8.4-10.2) mg/dL Total Bilirubin 0.4 (0.0-1.0) mg/dL AST 23 (5-37) U/L ALT 23 (0-40) U/L Alkaline Phosphatase 81 (39-117) U/L Total Protein 6.5 (6.5-8.0) g/dL Albumin 4.0 (3.5-5.0) g/dL Urine Color DEVIKA Urine Appearance HAZY Urine pH 6.0 (5.0-8.0) Ur Specific [place] 1.025 (1.005-1.025) Urine Protein NEG (NEG-TRACE) MG/DL Urine Glucose (UA) NEG (NEG) MG/DL Urine Ketones 5 (NEG) MG/DL Urine Blood NEG (NEG) Urine Nitrite NEG (NEG) Ur Leukocyte Esterase NEG (NEG) Urine RBC 0-2 (0) /HPF Urine WBC 0 (0-4) /HPF Ur Squamous Epith Cells NONE /LPF Urine Bacteria NONE /LPF Urine Mucus TRACE /LPF Discharge Plan Discharge Clinical Impression: Anxiety Patient Disposition: Home, Self-Care Instructions: Anxiety (ED) Additional Instructions: Your blood work was okay today Your urine test did not show any signs of infection Follow-up with urologist as planned Follow up with her primary care doctor I discussed Return if any concerns or worsening symptoms Thank you Prescriptions: No Action bethanechol chloride 50 mg tablet 50 mg PO TID Qty: 90 RF: 2 patlhmpo-zoyr-HD-calcium-mins [Thera-M] 9 mg iron-400 mcg tablet 1 tab PO DAILY Qty: 30 RF: 6 acetaminophen 500 mg tablet 500 mg PO Q4H Qty: 180 RF: 0 atorvastatin 10 mg tablet 10 mg PO DAILY Qty: 30 RF: 2 loratadine 10 mg tablet 10 mg PO DAILY PRN (Reason: allergy symptoms) 30 Days Qty: 30 RF: 4 tamsulosin 0.4 mg capsule 0.4 mg PO BEDTIME 30 Days Qty: 30 RF: 4 finasteride 5 mg tablet 5 mg PO DAILY 30 Days Qty: 30 RF: 4 nitrofurantoin macrocrystal 50 mg capsule 50 mg PO BEDTIME 30 Days Qty: 30 RF: 4 ibuprofen 600 mg tablet 600 mg PO Q8H PRN (Reason: pain) 10 Days Qty: 30 RF: 1 nitrofurantoin macrocrystal 50 mg capsule 1 cap PO BEDTIME RF: 0 carbamazepine 200 mg tablet 400 mg PO BID RF: 0 tamsulosin 0.4 mg capsule 1 cap PO BEDTIME RF: 0 lorazepam 1 mg tablet 1 mg PO BID RF: 0 finasteride 5 mg tablet 1 tab PO QAM RF: 0 escitalopram oxalate 10 mg tablet 1 tab PO QAM RF: 0 aripiprazole 20 mg tablet 1 tab PO QAM RF: 0 Chantix 1 mg tablet 1 tab PO BID RF: 0 Lactobacillus acidophilus 100 mg (1 billion cell) capsule 1 cap PO QAM RF: 0 olanzapine 5 mg tablet 5 mg PO QAM AND QHS RF: 0 hydroxyzine HCl 10 mg tablet 1 tab PO TID PRN (Reason: anxiety) RF: 0 lorazepam [Ativan] 0.5 mg Tablet 0.5 mg PO DAILY RF: 0 diphenhydramine HCl [Benadryl] 25 mg capsule 25 mg PO DAILY PRN (Reason: Anxiety) RF: 0 Referrals: Dk Rodriguez MD [Primary Care Provider] - 1 week Discharge Date/Time: 09/05/20 15:19
== END 2020-09-05 15:19 | disposition home or self-care (01) ==
PROVIDERS: Nurse Practitioner Primary Care; Emergency Provider Emergency Medicine; PCP Internal Medicine
DX: F41.9 Anxiety disorder, unspecified (principal); N40.0 Benign prostatic hyperplasia without lower urinary tract symptoms; F17.210 Nicotine dependence, cigarettes, uncomplicated; E78.00 Pure hypercholesterolemia, unspecified; F25.0 Schizoaffective disorder, bipolar type
CPT/HCPCS: 36415; 80053; 81001; 85025; 96374; 99283; 99284

== ENCOUNTER 2020-09-07 01:12 | Emergency (ER) | payer MEDICARE, MEDICAID, SELFPAY ==
[2020-09-07 01:21] VITALS: BP 109/73; PULSE 76; RESP 16; TEMP 36.7; O2SAT 99; BMI 25.1
--- NOTE | 2020-09-07 01:50 | ED_ITS ---
HPI - Medical Clearance General Chief complaint: Medical Clearance Stated complaint: ANXIETY,FOUND WANDERING STS BY CPD Time Seen by Provider: 09/07/20 01:50 History of Present Illness HPI Narrative: Patient is a 54-year-old male long history of anxiety. Presented today feeling anxious. Has a history of schizoaffective disorder. Patient is stressed out about his life at the [facility]. No suicidal homicidal ideation. Related Information Home Medications Medication Instructions Recorded Confirmed diphenhydramine HCl 25 mg capsule 25 mg PO DAILY PRN cap 04/08/20 07/19/20 Lactobacillus acidophilus 1 cap PO QAM 06/21/20 07/19/20 aripiprazole 1 tab PO QAM 06/21/20 07/19/20 carbamazepine 400 mg PO BID 06/21/20 07/19/20 escitalopram oxalate 1 tab PO QAM 06/21/20 07/19/20 finasteride 1 tab PO QAM 06/21/20 07/19/20 hydroxyzine HCl 1 tab PO TID PRN 06/21/20 07/19/20 lorazepam 1 mg PO BID 06/21/20 07/19/20 lorazepam [Ativan] 0.5 mg PO DAILY 06/21/20 07/19/20 nitrofurantoin macrocrystal 1 cap PO BEDTIME 06/21/20 07/19/20 olanzapine 5 mg PO QAM AND QHS 06/21/20 07/19/20 tamsulosin 1 cap PO BEDTIME 06/21/20 07/19/20 varenicline [Chantix] 1 tab PO BID 06/21/20 07/19/20 Previous Rx's Medication Instructions Recorded bethanechol chloride 50 mg tablet 50 mg PO TID #90 tab 05/19/20 multivitamin-iron 9 mg-folic acid 1 tab PO DAILY #30 tab 06/22/20 400 mcg-calcium and minerals tablet acetaminophen 500 mg tablet 500 mg PO Q4H #180 tab 08/05/20 atorvastatin 10 mg tablet 10 mg PO DAILY #30 tab 08/05/20 loratadine 10 mg tablet 10 mg PO DAILY PRN 30 Days #30 tab 08/05/20 finasteride 5 mg tablet 5 mg PO DAILY 30 Days #30 tab 08/11/20 nitrofurantoin macrocrystal 50 mg 50 mg PO BEDTIME 30 Days #30 cap 08/11/20 capsule tamsulosin 0.4 mg capsule 0.4 mg PO BEDTIME 30 Days #30 cap 08/11/20 ibuprofen 600 mg tablet 600 mg PO Q8H PRN 10 Days #30 tab 08/19/20 Allergies Allergy/AdvReac Type Severity Reaction Status Date / Time No Known Allergies Allergy Unknown UNKNOWN Verified 08/30/20 01:02 [NO KNOWN ALLERGIES] Review of Systems Review of Systems: Constitutional: No Weight loss, No Fever, No Chills, No Night Sweats, No Fatigue, No Malaise ENT/Mouth: No Hearing loss, No Ear Pain, No Nasal Congestion, No Sinus Pain, No Hoarseness, No sore throat, No Rhinorrhea, No Swallowing Difficulty Eyes: No Eye Pain, No Swelling, No Redness, No Foreign Body, No Discharge, No Vision Changes Cardiovascular: No Chest Pain, No SOB, No Dyspnea on Exertion, No Orthopnea, No Edema, No Palpitations Respiratory: No Cough, No Sputum, No Wheezing, No Smoke Exposure, No Dyspnea Gastrointestinal: No Nausea, No Vomiting, No Diarrhea, No Constipation, No abdominal Pain, No Hematochezia, No Melena Genitourinary: no irregular bleeding, No Dysuria, No Urinary Frequency, No Hematuria, No Urinary Incontinence, No Urgency, No Flank Pain, No Urinary Flow Changes, No Hesitancy Musculoskeletal: No joint pain, No Myalgias, No Joint Swelling Skin: No Skin Lesions, No rash Neuro: No Weakness, No Numbness, No Paresthesias, No Loss of Consciousness, No Dizziness, No Headache Psych: No Anxiety/Panic, No Depression, No SI/HI/AH/VH, No Social Issues, Heme/Lymph: No Bruising, No Bleeding,No Lymphadenopathy Endocrine: No Polyuria, No Polydipsia, No Temperature Intolerance [facility] Past Medical History Medical History Anxiety Benign prostatic hyperplasia with lower urinary tract symptoms Bipolar 1 disorder Enlarged prostate Mood disorder Muscle strain of chest wall Pure hypercholesterolemia Right knee injury Schizoaffective disorder, bipolar type Smoker Thought disorder Surgical History History of open reduction and internal fixation (ORIF) procedure History of prostate surgery (~05/03/19) Family History Family History Father Lung cancer BPH (benign prostatic hyperplasia) Mother Dementia Brother Myocardial infarction Social History Social History Alcohol intake: unknown Smoking Status: Current every day smoker Tobacco Type: Cigarette Advance Directives: No Advance Directives Information Provided: No Physical Exam Vital Signs: Vital Signs: Last Vital Signs Temp 98.1 F 09/07/20 01:21 Pulse 76 09/07/20 01:21 Resp 16 09/07/20 01:21 BP 109/73 09/07/20 01:21 Pulse Ox 99 09/07/20 01:21 Body Mass Index 25.1 Appearance: Alert. Oriented X3. No acute distress. Eyes: Pupils equal, round and reactive to light. ENT: Pharynx normal. Neck: Normal inspection. Neck supple. No lymph nodes noted. No crepitus CVS: Normal heart rate and rhythm. Pulses normal. Normal S1 and S2 Respiratory: No respiratory distress. Breath sounds normal. No Wheezing. No rales Abdomen: Soft and nontender. No rigidity. No distention. good BS x4 Skin: Skin warm and dry. Normal skin color. Normal skin turgor. Extremities: No lower extremity edema. Neurovascular intact to all extremities. No Lacerations. No Rash Neuro: Oriented X 3. No motor deficit. No sensory deficit. Moving all extermities. No slurred speech MDM - Medical Clearance MDM Narrative Medical decision making narrative: Awaiting care team evaluation. Discharge Plan Discharge Clinical Impression: Anxiety Patient Disposition: Home, Self-Care Instructions: Anxiety (ED) Prescriptions: No Action bethanechol chloride 50 mg tablet 50 mg PO TID Qty: 90 RF: 2 shfdjsgt-kmls-UC-calcium-mins [Thera-M] 9 mg iron-400 mcg tablet 1 tab PO DAILY Qty: 30 RF: 6 acetaminophen 500 mg tablet 500 mg PO Q4H Qty: 180 RF: 0 atorvastatin 10 mg tablet 10 mg PO DAILY Qty: 30 RF: 2 loratadine 10 mg tablet 10 mg PO DAILY PRN (Reason: allergy symptoms) 30 Days Qty: 30 RF: 4 tamsulosin 0.4 mg capsule 0.4 mg PO BEDTIME 30 Days Qty: 30 RF: 4 finasteride 5 mg tablet 5 mg PO DAILY 30 Days Qty: 30 RF: 4 nitrofurantoin macrocrystal 50 mg capsule 50 mg PO BEDTIME 30 Days Qty: 30 RF: 4 ibuprofen 600 mg tablet 600 mg PO Q8H PRN (Reason: pain) 10 Days Qty: 30 RF: 1 nitrofurantoin macrocrystal 50 mg capsule 1 cap PO BEDTIME RF: 0 carbamazepine 200 mg tablet 400 mg PO BID RF: 0 tamsulosin 0.4 mg capsule 1 cap PO BEDTIME RF: 0 lorazepam 1 mg tablet 1 mg PO BID RF: 0 finasteride 5 mg tablet 1 tab PO QAM RF: 0 escitalopram oxalate 10 mg tablet 1 tab PO QAM RF: 0 aripiprazole 20 mg tablet 1 tab PO QAM RF: 0 Chantix 1 mg tablet 1 tab PO BID RF: 0 Lactobacillus acidophilus 100 mg (1 billion cell) capsule 1 cap PO QAM RF: 0 olanzapine 5 mg tablet 5 mg PO QAM AND QHS RF: 0 hydroxyzine HCl 10 mg tablet 1 tab PO TID PRN (Reason: anxiety) RF: 0 lorazepam [Ativan] 0.5 mg Tablet 0.5 mg PO DAILY RF: 0 diphenhydramine HCl [Benadryl] 25 mg capsule 25 mg PO DAILY PRN (Reason: Anxiety) RF: 0 Referrals: Dk Rodriguez MD [Primary Care Provider] - 2 days
== END 2020-09-07 03:17 | disposition home or self-care (01) ==
PROVIDERS: Emergency Provider Emergency Medicine Emergency Medical Services; PCP Internal Medicine
DX: F41.1 Generalized anxiety disorder (principal); F43.0 Acute stress reaction; F17.210 Nicotine dependence, cigarettes, uncomplicated; Z71.6 Tobacco abuse counseling; Z79.899 Other long term (current) drug therapy
CPT/HCPCS: 99284

== ENCOUNTER 2020-09-10 09:55 | Outpatient (REF) | payer MEDICARE, MEDICAID, SELFPAY ==
[2020-09-10 11:08] LABS: MANUAL DIFF FLAG NO
[2020-09-10 11:18] LABS: Basophils Absolute Auto 0.1 X10*3/uL (0.0-0.2); Basophils Percent Auto 1.1 % (0-2); Eosinophils Absolute Auto 0.5 X10*3/uL (0.0-0.4); Eosinophils Percent Auto 6.1 % (0-4); Hematocrit 41.9 % (42-52); Hemoglobin 14.3 g/dl (14.0-18.0); Imm Gran Abs Auto 0.03 X10*3/uL (0.00-0.03); Imm Gran Pct Auto 0.4 % (0.0-0.4); Lymphocytes Absolute Auto 1.7 X10*3/uL (1.2-4.9); Lymphocytes Percent Auto 20.7 % (20-40); Mean Corpuscular HGB Conc 34.1 g/dl (31.0-36.0); Mean Corpuscular Hemoglobin 32.1 pg (27.0-33.0); Mean Corpuscular Volume 93.9 fL (80-98); Mean Platelet Volume 8.8 fL (9.4-12.4); Monocytes Absolute Auto 0.7 X10*3/uL (0.1-1.2); Monocytes Percent Auto 9.1 % (2-11); Neutrophils Percent Auto 62.6 % (45-73); Platelet Count 258 X10*3/uL (160-400); Red Blood Count 4.46 X10*6/uL (4.60-5.80); Red Cell Distribution Width 12.7 % (11.0-16.0)
[2020-09-10 11:38] LABS: Alanine Aminotransferase 24 U/L (0-40); Albumin Level 4.3 g/dL (3.5-5.0); Alkaline Phosphatase 88 U/L (39-117); Anion Gap 13 (12-20); Aspartate Amino Transferase 30 U/L (5-37); Bilirubin Total 0.4 mg/dL (0.0-1.0); Blood Urea Nitrogen 12 mg/dL (9-16); Calcium 9.4 mg/dL (8.4-10.2); Carbon Dioxide 28 mmol/L (22-29); Chloride 100 mmol/L (96-108); Cholesterol 159 mg/dL; Estimated Glomerular Filt Rate > 60; Glucose Fasting 94 mg/dL (60-99); HDL Cholesterol 52 mg/dL; LDL Cholesterol Calculated 95 mg/dl; Potassium 4.8 mmol/L (3.3-5.1); Sodium 136 mmol/L (135-145); Total Protein 6.9 g/dL (6.5-8.0); Triglycerides 64 mg/dL
[2020-09-10 11:59] LABS: TSH reflex Free T4 0.11 uIU/mL (0.32-4.0)
[2020-09-10 12:23] LABS: Glucose Urine UA NEG (NEG); Leukocyte Esterase Urine NEG (NEG); Nitrite Urine NEG (NEG); Specific Gravity - Urine 1.015 (1.005-1.025); Urine Blood NEG (NEG); Urine Ketones NEG (NEG); Urine Protein NEG (NEG-TRACE)
[2020-09-10 12:35] LABS: Appearance Urine CLEAR; Color Urine AMBER
[2020-09-10 12:44] LABS: Free T4 (Free Thyroxine) 0.97 ng/dL (0.71-1.85)
== END 2020-09-10 09:56 | disposition home or self-care (01) ==
LOC: HO.LAB 09:55
PROVIDERS: PCP Internal Medicine; Visit Provider Internal Medicine
DX: E78.00 Pure hypercholesterolemia, unspecified (principal); F17.200 Nicotine dependence, unspecified, uncomplicated; N31.9 Neuromuscular dysfunction of bladder, unspecified; N40.1 Benign prostatic hyperplasia with lower urinary tract symptoms; R33.8 Other retention of urine; F25.0 Schizoaffective disorder, bipolar type
CPT/HCPCS: 36415; 80053; 80061; 81003; 84439; 84443; 85025

== ENCOUNTER 2020-09-16 23:16 | Emergency (ER) | payer MEDICARE, MEDICAID, SELFPAY ==
[2020-09-17 00:51] VITALS: BP 124/67; PULSE 76; RESP 16; TEMP 36.4; O2SAT 95; BMI 23.6
[2020-09-17 03:59] VITALS: BP 128/79; PULSE 71; RESP 16; TEMP 36.3; O2SAT 99
--- NOTE | 2020-09-17 04:04 | ED.MALEGU ---
HPI - Male Genitourinary General Chief complaint: Urogenital-Male Stated complaint: Multiple Complaints Time Seen by Provider: 09/17/20 00:54 Source: patient Mode of arrival: ambulatory Limitations: no limitations History of Present Illness HPI Narrative: my Urologist took me off my meds for my urine I'm tired. Complaint: other (tired) Onset (ago): week(s) (1) Duration: constant Severity: mild Quality: dull Relieving factors: none Exacerbating factors: none Context: other (taken off medications) Associated symptoms: Reports other (I'm tired) Related Data Home Medications Medication Instructions Recorded Confirmed diphenhydramine HCl 25 mg capsule 25 mg PO DAILY PRN cap 04/08/20 07/19/20 Lactobacillus acidophilus 1 cap PO QAM 06/21/20 07/19/20 aripiprazole 1 tab PO QAM 06/21/20 07/19/20 carbamazepine 400 mg PO BID 06/21/20 07/19/20 escitalopram oxalate 1 tab PO QAM 06/21/20 07/19/20 finasteride 1 tab PO QAM 06/21/20 07/19/20 hydroxyzine HCl 1 tab PO TID PRN 06/21/20 07/19/20 lorazepam 1 mg PO BID 06/21/20 07/19/20 lorazepam [Ativan] 0.5 mg PO DAILY 06/21/20 07/19/20 nitrofurantoin macrocrystal 1 cap PO BEDTIME 06/21/20 07/19/20 olanzapine 5 mg PO QAM AND QHS 06/21/20 07/19/20 tamsulosin 1 cap PO BEDTIME 06/21/20 07/19/20 varenicline [Chantix] 1 tab PO BID 06/21/20 07/19/20 Previous Rx's Medication Instructions Recorded bethanechol chloride 50 mg tablet 50 mg PO TID #90 tab 05/19/20 multivitamin-iron 9 mg-folic acid 1 tab PO DAILY #30 tab 06/22/20 400 mcg-calcium and minerals tablet acetaminophen 500 mg tablet 500 mg PO Q4H #180 tab 08/05/20 atorvastatin 10 mg tablet 10 mg PO DAILY #30 tab 08/05/20 loratadine 10 mg tablet 10 mg PO DAILY PRN 30 Days #30 tab 08/05/20 finasteride 5 mg tablet 5 mg PO DAILY 30 Days #30 tab 08/11/20 nitrofurantoin macrocrystal 50 mg 50 mg PO BEDTIME 30 Days #30 cap 08/11/20 capsule tamsulosin 0.4 mg capsule 0.4 mg PO BEDTIME 30 Days #30 cap 08/11/20 ibuprofen 600 mg tablet 600 mg PO Q8H PRN 10 Days #30 tab 08/19/20 Allergies Allergy/AdvReac Type Severity Reaction Status Date / Time No Known Allergies Allergy Unknown UNKNOWN Verified 08/30/20 01:02 [NO KNOWN ALLERGIES] Review of Systems Review of Systems: Constitutional : No Weight loss, No Fever, No Chills, No Fatigue, No Malaise ENT/Mouth : No sore throat, No Rhinorrhea Eyes: No Eye Pain, No Swelling, No Redness Cardiovascular : No Chest Pain, No SOB, No Dyspnea on Exertion, No Orthopnea, No Edema, No Palpitations Respiratory : No Cough, No Sputum, No Wheezing Gastrointestinal : No Nausea, No Vomiting, No Diarrhea, No Constipation, No abdominal Pain, No Hematochezia, No Melena Genitourinary : No Dysuria, No Urinary Frequency, No Hematuria, Musculoskeletal : No joint pain, No Myalgias, No Joint Swelling Skin : No Skin Lesions, No rash Neuro : pos Weakness, No Numbness, No Dizziness, No Headache Psych : No Anxiety/Panic, No Depression Heme/Lymph: No Bruising, No Bleeding,No Lymphadenopathy Endocrine : No Polyuria, No Polydipsia All other systems reviewed and are negative [facility] Past Medical History Medical History Anxiety Benign prostatic hyperplasia with lower urinary tract symptoms Bipolar 1 disorder Enlarged prostate Mood disorder Muscle strain of chest wall Pure hypercholesterolemia Right knee injury Schizoaffective disorder, bipolar type Smoker Thought disorder Surgical History History of open reduction and internal fixation (ORIF) procedure History of prostate surgery (~05/03/19) Family History Family History Father Lung cancer BPH (benign prostatic hyperplasia) Mother Dementia Brother Myocardial infarction Social History Social History (Reviewed 09/17/20 @ 04:06 by [place] Valdez Alcohol intake: never Smoking Status: Current every day smoker Tobacco Type: Cigarette Smoked in Last 30 Days: Yes Use of substances other than those prescribed or required for medical reasons: No Advance Directives: No Physical Exam Vital Signs: Vital Signs: Last Vital Signs Temp 97.4 F 09/17/20 03:59 Pulse 71 09/17/20 03:59 Resp 16 09/17/20 03:59 BP 128/79 09/17/20 03:59 Pulse Ox 99 09/17/20 03:59 Body Mass Index 23.6 Appearance: Alert. Oriented X3. No acute distress. Eyes: Pupils equal, round and reactive to light. ENT: Pharynx normal. Neck: Normal inspection. Neck supple. CVS: Normal heart rate and rhythm. Pulses normal. Respiratory: No respiratory distress. Breath sounds normal. Abdomen: Soft and nontender. Skin: Skin warm and dry. Normal skin color. Normal skin turgor. Extremities: No lower extremity edema. No calf ttp Neuro: Oriented X 3. No motor deficit. No sensory deficit. Course Course Course Narrative: no acute findings, stable for DC MDM - Male Genitourinary MDM Narrative Medical decision making narrative: 54 yo male with severe anxiety, self caths at home states he is tired after his urologist changed his mediations, he is not toxic, will obtain basic labs and UA, anticipate if normal DC home Lab Data Result diagrams: 09/17/20 04:45 Labs: Lab Results 09/17/20 Range/Units 04:45 Sodium 131 L (135-145) mmol/L Potassium 4.6 (3.3-5.1) mmol/L Chloride 98 (96-108) mmol/L Carbon Dioxide 20 L (22-29) mmol/L Anion Gap 18 (12-20) BUN 12 (9-16) mg/dL Creatinine 0.71 (0.5-1.4) mg/dL Estim Creat Clear Calc 118.9 Estimated GFR > 60 Random Glucose 121 H (60-115) mg/dL Magnesium 2.0 (1.6-2.6) mg/dL Total Bilirubin 0.5 (0.0-1.0) mg/dL Direct Bilirubin 0.2 (0.0-0.5) mg/dL AST 20 (5-37) U/L ALT 18 (0-40) U/L Alkaline Phosphatase 79 (39-117) U/L Total Protein 6.1 L (6.5-8.0) g/dL Albumin 3.9 (3.5-5.0) g/dL Lipase 15 (8-78) U/L Discharge Plan Discharge Clinical Impression: Weakness Patient Disposition: Home, Self-Care Instructions: Weakness (ED) Additional Instructions: return to ED for any worsening symptoms or concerns Prescriptions: No Action bethanechol chloride 50 mg tablet 50 mg PO TID Qty: 90 RF: 2 fxkckbbi-kfce-ZF-calcium-mins [Thera-M] 9 mg iron-400 mcg tablet 1 tab PO DAILY Qty: 30 RF: 6 acetaminophen 500 mg tablet 500 mg PO Q4H Qty: 180 RF: 0 atorvastatin 10 mg tablet 10 mg PO DAILY Qty: 30 RF: 2 loratadine 10 mg tablet 10 mg PO DAILY PRN (Reason: allergy symptoms) 30 Days Qty: 30 RF: 4 tamsulosin 0.4 mg capsule 0.4 mg PO BEDTIME 30 Days Qty: 30 RF: 4 finasteride 5 mg tablet 5 mg PO DAILY 30 Days Qty: 30 RF: 4 nitrofurantoin macrocrystal 50 mg capsule 50 mg PO BEDTIME 30 Days Qty: 30 RF: 4 ibuprofen 600 mg tablet 600 mg PO Q8H PRN (Reason: pain) 10 Days Qty: 30 RF: 1 nitrofurantoin macrocrystal 50 mg capsule 1 cap PO BEDTIME RF: 0 carbamazepine 200 mg tablet 400 mg PO BID RF: 0 tamsulosin 0.4 mg capsule 1 cap PO BEDTIME RF: 0 lorazepam 1 mg tablet 1 mg PO BID RF: 0 finasteride 5 mg tablet 1 tab PO QAM RF: 0 escitalopram oxalate 10 mg tablet 1 tab PO QAM RF: 0 aripiprazole 20 mg tablet 1 tab PO QAM RF: 0 Chantix 1 mg tablet 1 tab PO BID RF: 0 Lactobacillus acidophilus 100 mg (1 billion cell) capsule 1 cap PO QAM RF: 0 olanzapine 5 mg tablet 5 mg PO QAM AND QHS RF: 0 hydroxyzine HCl 10 mg tablet 1 tab PO TID PRN (Reason: anxiety) RF: 0 lorazepam [Ativan] 0.5 mg Tablet 0.5 mg PO DAILY RF: 0 diphenhydramine HCl [Benadryl] 25 mg capsule 25 mg PO DAILY PRN (Reason: Anxiety) RF: 0
[2020-09-17 06:40] LABS: Alanine Aminotransferase 18 U/L (0-40); Albumin Level 3.9 g/dL (3.5-5.0); Alkaline Phosphatase 79 U/L (39-117); Anion Gap 18 (12-20); Aspartate Amino Transferase 20 U/L (5-37); Bilirubin Direct 0.2 mg/dL (0.0-0.5); Bilirubin Total 0.5 mg/dL (0.0-1.0); Blood Urea Nitrogen 12 mg/dL (9-16); Carbon Dioxide 20 mmol/L (22-29); Chloride 98 mmol/L (96-108); Creatinine Clr Calc Pharmacy 118.9; Estimated Glomerular Filt Rate > 60; Glucose Random 121 mg/dL (60-115); Lipase 15 U/L (8-78); Potassium 4.6 mmol/L (3.3-5.1); Sodium 131 mmol/L (135-145); Total Protein 6.1 g/dL (6.5-8.0)
[2020-09-17 07:08] LABS: MANUAL DIFF FLAG NO
[2020-09-17 07:21] LABS: Appearance Urine CLEAR; Color Urine YELLOW; Glucose Urine UA NEG (NEG); Leukocyte Esterase Urine NEG (NEG); Nitrite Urine NEG (NEG); Urine Blood TRACE (NEG); Urine Ketones NEG (NEG); Urine Protein NEG (NEG-TRACE)
[2020-09-17 07:24] LABS: Basophils Absolute Auto 0.1 X10*3/uL (0.0-0.2)
[2020-09-17 07:29] LABS: RBC Urine 0-2 /HPF (0); WBC Urine 0 /HPF (0-4)
[2020-09-17 07:33] LABS: Red Blood Count 4.33 X10*6/uL (4.60-5.80)
[2020-09-17 07:34] LABS: Hematocrit 40.4 % (42-52); Hemoglobin 13.9 g/dl (14.0-18.0); Mean Corpuscular Volume 93.3 fL (80-98)
[2020-09-17 07:35] LABS: Mean Corpuscular HGB Conc 34.4 g/dl (31.0-36.0); Mean Platelet Volume 8.6 fL (9.4-12.4); Red Cell Distribution Width 12.4 % (11.0-16.0)
[2020-09-17 07:36] LABS: Imm Gran Pct Auto 0.3 % (0.0-0.4)
[2020-09-17 07:37] LABS: Lymphocytes Percent Auto 29.6 % (20-40); Platelet Count 234 X10*3/uL (160-400)
[2020-09-17 07:38] LABS: Basophils Percent Auto 1.2 % (0-2); Eosinophils Percent Auto 10.7 % (0-4); Monocytes Percent Auto 9.2 % (2-11)
[2020-09-17 07:39] LABS: Neutrophils Absolute Auto 3.3 X10*3/uL (2.0-8.3)
[2020-09-17 07:40] LABS: Imm Gran Abs Auto 0.02 X10*3/uL (0.00-0.03)
[2020-09-17 07:41] VITALS: BP 141/83; PULSE 78; RESP 16; O2SAT 98
[2020-09-17 07:41] LABS: Eosinophils Absolute Auto 0.7 X10*3/uL (0.0-0.4); Monocytes Absolute Auto 0.6 X10*3/uL (0.1-1.2)
[2020-09-17 07:51] LABS: Mean Corpuscular Hemoglobin 32.1 pg (27.0-33.0)
[2020-09-17 07:52] LABS: White Blood Count 6.8 X10*3/uL (4.8-10.8)
== END 2020-09-17 07:44 | disposition home or self-care (01) ==
PROVIDERS: Emergency Provider Emergency Medicine; PCP Internal Medicine
DX: R53.1 Weakness (principal); F41.9 Anxiety disorder, unspecified; F25.0 Schizoaffective disorder, bipolar type; F17.210 Nicotine dependence, cigarettes, uncomplicated
CPT/HCPCS: 36415; 80051; 80076; 81001; 82565; 82947; 83690; 83735; 84520; 85025; 99283; 99284

== ENCOUNTER 2020-09-21 01:48 | Emergency (ER) | payer MEDICARE, MEDICAID, SELFPAY ==
[2020-09-21 01:58] VITALS: BP 126/66; PULSE 98; RESP 16; TEMP 37.1; O2SAT 98; BMI 25.0
--- NOTE | 2020-09-21 02:27 | ED.GENADULT ---
HPI - General Adult General Chief complaint: General Medical Stated complaint: Not feeling well Time Seen by Provider: 09/21/20 02:21 Source: patient Mode of arrival: ambulatory Limitations: no limitations History of Present Illness HPI narrative: 54-year-old male presents the emergency department for multiple complaints. Onset (ago): year(s) Related Data Home Medications Medication Instructions Recorded Confirmed diphenhydramine HCl 25 mg capsule 25 mg PO DAILY PRN cap 04/08/20 07/19/20 Lactobacillus acidophilus 1 cap PO QAM 06/21/20 07/19/20 aripiprazole 1 tab PO QAM 06/21/20 07/19/20 carbamazepine 400 mg PO BID 06/21/20 07/19/20 escitalopram oxalate 1 tab PO QAM 06/21/20 07/19/20 finasteride 1 tab PO QAM 06/21/20 07/19/20 hydroxyzine HCl 1 tab PO TID PRN 06/21/20 07/19/20 lorazepam 1 mg PO BID 06/21/20 07/19/20 lorazepam [Ativan] 0.5 mg PO DAILY 06/21/20 07/19/20 nitrofurantoin macrocrystal 1 cap PO BEDTIME 06/21/20 07/19/20 olanzapine 5 mg PO QAM AND QHS 06/21/20 07/19/20 tamsulosin 1 cap PO BEDTIME 06/21/20 07/19/20 varenicline [Chantix] 1 tab PO BID 06/21/20 07/19/20 Previous Rx's Medication Instructions Recorded bethanechol chloride 50 mg tablet 50 mg PO TID #90 tab 05/19/20 multivitamin-iron 9 mg-folic acid 1 tab PO DAILY #30 tab 06/22/20 400 mcg-calcium and minerals tablet acetaminophen 500 mg tablet 500 mg PO Q4H #180 tab 08/05/20 atorvastatin 10 mg tablet 10 mg PO DAILY #30 tab 08/05/20 loratadine 10 mg tablet 10 mg PO DAILY PRN 30 Days #30 tab 08/05/20 finasteride 5 mg tablet 5 mg PO DAILY 30 Days #30 tab 08/11/20 nitrofurantoin macrocrystal 50 mg 50 mg PO BEDTIME 30 Days #30 cap 08/11/20 capsule tamsulosin 0.4 mg capsule 0.4 mg PO BEDTIME 30 Days #30 cap 08/11/20 ibuprofen 600 mg tablet 600 mg PO Q8H PRN 10 Days #30 tab 08/19/20 Allergies Allergy/AdvReac Type Severity Reaction Status Date / Time No Known Allergies Allergy Unknown UNKNOWN Verified 08/30/20 01:02 [NO KNOWN ALLERGIES] Review of Systems Review of Systems: Yes all other systems are reviewed and are negative [facility] Past Medical History Attestation statement: The following information was validated with the patient. Source: old records reviewed Medical History Anxiety Benign prostatic hyperplasia with lower urinary tract symptoms Bipolar 1 disorder Enlarged prostate Mood disorder Muscle strain of chest wall Pure hypercholesterolemia Right knee injury Schizoaffective disorder, bipolar type Smoker Thought disorder Surgical History History of open reduction and internal fixation (ORIF) procedure History of prostate surgery (~05/03/19) Family History Family History Father Lung cancer BPH (benign prostatic hyperplasia) Mother Dementia Brother Myocardial infarction Social History Social History Alcohol intake: never Smoking Status: Current every day smoker Tobacco Type: Cigarette Advance Directives: No Advance Directives Information Provided: No Physical Exam Vital Signs: Vital Signs: Last Vital Signs Temp 98.7 F 09/21/20 01:58 Pulse 98 09/21/20 01:58 Resp 16 09/21/20 01:58 BP 126/66 09/21/20 01:58 Pulse Ox 98 09/21/20 01:58 Body Mass Index 25.0 Appearance: Alert. Oriented X3. No acute distress. Eyes: Pupils equal, round and reactive to light. ENT: Pharynx normal. Neck: Normal inspection. Neck supple. CVS: Normal heart rate and rhythm. Pulses normal. Respiratory: No respiratory distress. Breath sounds normal. Abdomen: Soft and nontender. Skin: Skin warm and dry. Normal skin color. Normal skin turgor. Extremities: No lower extremity edema. Neuro: No motor deficit. No sensory deficit. Course Course Course Narrative: 54-year-old male presents to the emergency department for multiple complaints. Upon my arrival at his bedside, he was masturbating in the hallway. He was asked to pull his pants up and stop what he was doing. He stated that he was not doing anything wrong and that he has a right touch his body. He has had multiple presentations like this in the past, was asked to leave several times before for masturbating in the waiting room and showing his penis to other patients. Patient was discharged to home at that time. Discharge Plan Discharge Clinical Impression: Anxiety Patient Disposition: Home, Self-Care Instructions: Anxiety (ED) Additional Instructions: Patient was discharged for inappropriate behavior. Prescriptions: No Action bethanechol chloride 50 mg tablet 50 mg PO TID Qty: 90 RF: 2 vnuogdmr-zxlu-ZO-calcium-mins [Thera-M] 9 mg iron-400 mcg tablet 1 tab PO DAILY Qty: 30 RF: 6 acetaminophen 500 mg tablet 500 mg PO Q4H Qty: 180 RF: 0 atorvastatin 10 mg tablet 10 mg PO DAILY Qty: 30 RF: 2 loratadine 10 mg tablet 10 mg PO DAILY PRN (Reason: allergy symptoms) 30 Days Qty: 30 RF: 4 tamsulosin 0.4 mg capsule 0.4 mg PO BEDTIME 30 Days Qty: 30 RF: 4 finasteride 5 mg tablet 5 mg PO DAILY 30 Days Qty: 30 RF: 4 nitrofurantoin macrocrystal 50 mg capsule 50 mg PO BEDTIME 30 Days Qty: 30 RF: 4 ibuprofen 600 mg tablet 600 mg PO Q8H PRN (Reason: pain) 10 Days Qty: 30 RF: 1 nitrofurantoin macrocrystal 50 mg capsule 1 cap PO BEDTIME RF: 0 carbamazepine 200 mg tablet 400 mg PO BID RF: 0 tamsulosin 0.4 mg capsule 1 cap PO BEDTIME RF: 0 lorazepam 1 mg tablet 1 mg PO BID RF: 0 finasteride 5 mg tablet 1 tab PO QAM RF: 0 escitalopram oxalate 10 mg tablet 1 tab PO QAM RF: 0 aripiprazole 20 mg tablet 1 tab PO QAM RF: 0 Chantix 1 mg tablet 1 tab PO BID RF: 0 Lactobacillus acidophilus 100 mg (1 billion cell) capsule 1 cap PO QAM RF: 0 olanzapine 5 mg tablet 5 mg PO QAM AND QHS RF: 0 hydroxyzine HCl 10 mg tablet 1 tab PO TID PRN (Reason: anxiety) RF: 0 lorazepam [Ativan] 0.5 mg Tablet 0.5 mg PO DAILY RF: 0 diphenhydramine HCl [Benadryl] 25 mg capsule 25 mg PO DAILY PRN (Reason: Anxiety) RF: 0 Interventions: ED Discharge Assessment Last Done: 09/21/20 02:29
--- NOTE | 2020-09-21 02:30 | PC.NURSE ---
PATIENT DISCHARGED BY [facility]. PATIENT WAS PLAYING WITH HIS PENIS IN THE MIDDLE OF THE HALLWAY.
== END 2020-09-21 02:41 | disposition home or self-care (01) ==
PROVIDERS: Emergency Provider Emergency Medicine; PCP Internal Medicine
DX: F41.9 Anxiety disorder, unspecified (principal); F17.210 Nicotine dependence, cigarettes, uncomplicated; F25.0 Schizoaffective disorder, bipolar type; E78.00 Pure hypercholesterolemia, unspecified
CPT/HCPCS: 99283

== ENCOUNTER 2020-10-17 02:53 | Emergency (ER) | payer MEDICARE, MEDICAID, SELFPAY ==
[2020-10-17 03:10] VITALS: BP 105/67; PULSE 86; RESP 16; TEMP 36.8; O2SAT 97; BMI 24.7
--- NOTE | 2020-10-17 03:44 | ED_ITS ---
HPI - Anxiety General Chief Complaint: Anxiety Stated Complaint: Crisis Time Seen by Provider: 10/17/20 02:56 Source: patient Mode of arrival: ambulatory Limitations: no limitations History of Present Illness HPI narrative: Patient comes emergency room stating that he is here because he needs a break. Patient states that he has not helped with his halfway, therefore came to the emergency room because he needed a break. Patient states that his not feeling in in his halfway. Patient denies suicidal homicidal ideation, denies any physical complaint. MD complaint: anxiety Related Data Home Medications Medication Instructions Recorded Confirmed diphenhydramine HCl 25 mg capsule 25 mg PO DAILY PRN cap 04/08/20 09/24/20 Lactobacillus acidophilus 1 cap PO QAM 06/21/20 07/19/20 aripiprazole 1 tab PO QAM 06/21/20 09/24/20 carbamazepine 400 mg PO BID 06/21/20 09/24/20 escitalopram oxalate 1 tab PO QAM 06/21/20 09/24/20 finasteride 1 tab PO QAM 06/21/20 07/19/20 hydroxyzine HCl 1 tab PO TID PRN 06/21/20 07/19/20 lorazepam 1 mg PO BID 06/21/20 09/24/20 lorazepam [Ativan] 0.5 mg PO DAILY 06/21/20 09/24/20 nitrofurantoin macrocrystal 1 cap PO BEDTIME 06/21/20 09/24/20 olanzapine 5 mg PO QAM AND QHS 06/21/20 09/24/20 tamsulosin 1 cap PO BEDTIME 06/21/20 07/19/20 varenicline [Chantix] 1 tab PO BID 06/21/20 07/19/20 baclofen 10 mg tablet 10 mg PO TID 09/24/20 09/24/20 Previous Rx's Medication Instructions Recorded bethanechol chloride 50 mg tablet 50 mg PO TID #90 tab 05/19/20 multivitamin-iron 9 mg-folic acid 1 tab PO DAILY #30 tab 06/22/20 400 mcg-calcium and minerals tablet acetaminophen 500 mg tablet 500 mg PO Q4H #180 tab 08/05/20 atorvastatin 10 mg tablet 10 mg PO DAILY #30 tab 08/05/20 loratadine 10 mg tablet 10 mg PO DAILY PRN 30 Days #30 tab 08/05/20 finasteride 5 mg tablet 5 mg PO DAILY 30 Days #30 tab 08/11/20 nitrofurantoin macrocrystal 50 mg 50 mg PO BEDTIME 30 Days #30 cap 08/11/20 capsule tamsulosin 0.4 mg capsule 0.4 mg PO BEDTIME 30 Days #30 cap 08/11/20 ibuprofen 600 mg tablet 600 mg PO Q8H PRN 10 Days #30 tab 08/19/20 ibuprofen 600 mg tablet 600 mg PO TID #30 tab 09/24/20 Allergies Allergy/AdvReac Type Severity Reaction Status Date / Time No Known Allergies Allergy Unknown UNKNOWN Verified 10/17/20 03:09 [NO KNOWN ALLERGIES] Review of Systems Review of Systems: Constitutional : No Weight loss, No Fever, No Chills, No Night Sweats, No Fatigue, No Malaise ENT/Mouth : No Hearing loss, No Ear Pain, No Nasal Congestion, No Sinus Pain, No Hoarseness, No sore throat, No Rhinorrhea, No Swallowing Difficulty Eyes: No Eye Pain, No Swelling, No Redness, No Foreign Body, No Discharge, No Vision Changes Cardiovascular : No Chest Pain, No SOB, No Dyspnea on Exertion, No Orthopnea, No Edema, No Palpitations Respiratory : No Cough, No Sputum, No Wheezing, No Smoke Exposure, No Dyspnea Gastrointestinal : No Nausea, No Vomiting, No Diarrhea, No Constipation, No abdominal Pain, No Hematochezia, No Melena Genitourinary : no irregular bleeding, No Dysuria, No Urinary Frequency, No Hematuria, No Urinary Incontinence, No Urgency, No Flank Pain, No Urinary Flow Changes, No Hesitancy Musculoskeletal : No joint pain, No Myalgias, No Joint Swelling Skin : No Skin Lesions, No rash Neuro : No Weakness, No Numbness, No Paresthesias, No Loss of Consciousness, No Dizziness, No Headache Psych : Anxious, No Depression, No SI/HI/AH/VH, No Social Issues, Heme/Lymph: No Bruising, No Bleeding,No Lymphadenopathy Endocrine : No Polyuria, No Polydipsia, No Temperature Intolerance [facility] Past Medical History Medical History Anxiety Benign prostatic hyperplasia with lower urinary tract symptoms Bipolar 1 disorder Enlarged prostate Mood disorder Muscle strain of chest wall Pure hypercholesterolemia Right knee injury Schizoaffective disorder, bipolar type Smoker Thought disorder Surgical History History of open reduction and internal fixation (ORIF) procedure History of prostate surgery (~05/03/19) Family History Family History Father Lung cancer BPH (benign prostatic hyperplasia) Mother Dementia Brother Myocardial infarction Social History Social History Alcohol intake: never Smoking Status: Never smoker Tobacco Type: Cigarette Use of substances other than those prescribed or required for medical reasons: No Advance Directives: No Advance Directives Information Provided: No Physical Exam Vital Signs: Vital Signs: Last Vital Signs Temp 98.2 F 10/17/20 03:10 Pulse 86 10/17/20 03:10 Resp 16 10/17/20 03:10 BP 105/67 10/17/20 03:10 Pulse Ox 97 10/17/20 03:10 Body Mass Index 24.7 Appearance: Alert. Oriented X3. No acute distress. Eyes: Pupils equal, round and reactive to light. ENT: Pharynx normal. Neck: Normal inspection. Neck supple. No lymph nodes noted. No crepitus CVS: Normal heart rate and rhythm. Pulses normal. Normal S1 and S2 Respiratory: No respiratory distress. Breath sounds normal. No Wheezing. No rales Abdomen: Soft and nontender. No rigidity. No distention. good BS x4 Skin: Skin warm and dry. Normal skin color. Normal skin turgor. Extremities: No lower extremity edema. No lower extremity edema. No Lacerations. No Rash Neuro: Oriented X 3. No motor deficit. No sensory deficit. Moving all extermities. No slurred speech. Course Course Course Narrative: Patient is well-known to the emergency room,. Patient has no physical complaints. Patient is not suicidal or homicidal. 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 Discharge Plan Discharge Clinical Impression: Anxiety Patient Disposition: Home, Self-Care Instructions: Anxiety (ED) Additional Instructions: Please follow-up with your primary care physician tomorrow. If you have any worsening or new symptoms, please return to the emergency room or call 911 Prescriptions: No Action bethanechol chloride 50 mg tablet 50 mg PO TID Qty: 90 RF: 2 vtngmztj-fmek-QM-calcium-mins [Thera-M] 9 mg iron-400 mcg tablet 1 tab PO DAILY Qty: 30 RF: 6 acetaminophen 500 mg tablet 500 mg PO Q4H Qty: 180 RF: 0 atorvastatin 10 mg tablet 10 mg PO DAILY Qty: 30 RF: 2 loratadine 10 mg tablet 10 mg PO DAILY PRN (Reason: allergy symptoms) 30 Days Qty: 30 RF: 4 tamsulosin 0.4 mg capsule 0.4 mg PO BEDTIME 30 Days Qty: 30 RF: 4 finasteride 5 mg tablet 5 mg PO DAILY 30 Days Qty: 30 RF: 4 nitrofurantoin macrocrystal 50 mg capsule 50 mg PO BEDTIME 30 Days Qty: 30 RF: 4 ibuprofen 600 mg tablet 600 mg PO Q8H PRN (Reason: pain) 10 Days Qty: 30 RF: 1 nitrofurantoin macrocrystal 50 mg capsule 1 cap PO BEDTIME RF: 0 carbamazepine 200 mg tablet 400 mg PO BID RF: 0 tamsulosin 0.4 mg capsule 1 cap PO BEDTIME RF: 0 lorazepam 1 mg tablet 1 mg PO BID RF: 0 finasteride 5 mg tablet 1 tab PO QAM RF: 0 escitalopram oxalate 10 mg tablet 1 tab PO QAM RF: 0 aripiprazole 20 mg tablet 1 tab PO QAM RF: 0 Chantix 1 mg tablet 1 tab PO BID RF: 0 Lactobacillus acidophilus 100 mg (1 billion cell) capsule 1 cap PO QAM RF: 0 olanzapine 5 mg tablet 5 mg PO QAM AND QHS RF: 0 hydroxyzine HCl 10 mg tablet 1 tab PO TID PRN (Reason: anxiety) RF: 0 lorazepam [Ativan] 0.5 mg Tablet 0.5 mg PO DAILY RF: 0 diphenhydramine HCl [Benadryl] 25 mg capsule 25 mg PO DAILY PRN (Reason: Anxiety) RF: 0 baclofen 10 mg tablet 10 mg PO TID RF: 0 ibuprofen 600 mg tablet 600 mg PO TID Qty: 30 RF: 0
[2020-10-17 04:00] VITALS: BP 105/67; PULSE 86; RESP 16; TEMP 36.8; O2SAT 97
== END 2020-10-17 05:35 | disposition home or self-care (01) ==
PROVIDERS: Emergency Provider Emergency Medicine; PCP Internal Medicine
DX: F41.9 Anxiety disorder, unspecified (principal); Z72.89 Other problems related to lifestyle; F25.0 Schizoaffective disorder, bipolar type; F17.210 Nicotine dependence, cigarettes, uncomplicated; Z79.899 Other long term (current) drug therapy
CPT/HCPCS: 99282; 99284

== ENCOUNTER 2020-10-23 21:10 | Emergency (ER) | payer MEDICARE, MEDICAID, SELFPAY ==
[2020-10-23 22:00] VITALS: BP 120/74; PULSE 73; RESP 16; TEMP 37.2; O2SAT 98; BMI 24.7
== END 2020-10-24 00:51 | disposition left against medical advice (07) ==
PROVIDERS: Emergency Provider Emergency Medicine; PCP Internal Medicine
DX: H57.12 Ocular pain, left eye (principal)
CPT/HCPCS: 99282

== ENCOUNTER 2020-11-04 01:01 | Emergency (ER) | payer MEDICARE, MEDICAID, SELFPAY ==
[2020-11-04 01:19] VITALS: BP 108/67; PULSE 78; RESP 18; TEMP 37.1; O2SAT 97; BMI 24.3
== END 2020-11-04 01:30 | disposition left against medical advice (07) ==
PROVIDERS: Emergency Provider Emergency Medicine; PCP Internal Medicine
DX: F41.9 Anxiety disorder, unspecified (principal); Z72.89 Other problems related to lifestyle
CPT/HCPCS: 99281; 99282

== ENCOUNTER 2020-11-10 01:28 | Emergency (ER) | payer MEDICARE, MEDICAID, SELFPAY ==
[2020-11-10 02:00] VITALS: BP 118/70; PULSE 86; RESP 18; TEMP 36.6; O2SAT 98; BMI 23.6
--- NOTE | 2020-11-10 02:12 | ED.ANXIETY ---
HPI - Anxiety General Chief Complaint: General Medical Stated Complaint: anxiety Time Seen by Provider: 11/10/20 02:04 Source: patient Mode of arrival: ambulatory History of Present Illness HPI narrative: This is a 54-year-old male who presents with complaints of anxiety but denies any constitutional symptoms such as fever, chills, shortness of breath, chest pain/palpitations, GI or symptoms. Patient has multiple complaints regarding his skilled nursing and their decision regarding his medications. Related Data Home Medications Medication Instructions Recorded Confirmed diphenhydramine HCl 25 mg capsule 25 mg PO DAILY PRN cap 04/08/20 09/24/20 Lactobacillus acidophilus 1 cap PO QAM 06/21/20 07/19/20 aripiprazole 1 tab PO QAM 06/21/20 09/24/20 carbamazepine 400 mg PO BID 06/21/20 09/24/20 escitalopram oxalate 1 tab PO QAM 06/21/20 09/24/20 finasteride 1 tab PO QAM 06/21/20 07/19/20 hydroxyzine HCl 1 tab PO TID PRN 06/21/20 07/19/20 lorazepam 1 mg PO BID 06/21/20 09/24/20 lorazepam [Ativan] 0.5 mg PO DAILY 06/21/20 09/24/20 nitrofurantoin macrocrystal 1 cap PO BEDTIME 06/21/20 09/24/20 olanzapine 5 mg PO QAM AND QHS 06/21/20 09/24/20 tamsulosin 1 cap PO BEDTIME 06/21/20 07/19/20 varenicline [Chantix] 1 tab PO BID 06/21/20 07/19/20 baclofen 10 mg tablet 10 mg PO TID 09/24/20 09/24/20 Previous Rx's Medication Instructions Recorded bethanechol chloride 50 mg tablet 50 mg PO TID #90 tab 05/19/20 multivitamin-iron 9 mg-folic acid 1 tab PO DAILY #30 tab 06/22/20 400 mcg-calcium and minerals tablet acetaminophen 500 mg tablet 500 mg PO Q4H #180 tab 08/05/20 loratadine 10 mg tablet 10 mg PO DAILY PRN 30 Days #30 tab 08/05/20 finasteride 5 mg tablet 5 mg PO DAILY 30 Days #30 tab 08/11/20 nitrofurantoin macrocrystal 50 mg 50 mg PO BEDTIME 30 Days #30 cap 08/11/20 capsule tamsulosin 0.4 mg capsule 0.4 mg PO BEDTIME 30 Days #30 cap 08/11/20 ibuprofen 600 mg tablet 600 mg PO Q8H PRN 10 Days #30 tab 08/19/20 ibuprofen 600 mg tablet 600 mg PO TID #30 tab 09/24/20 atorvastatin 10 mg tablet 10 mg PO DAILY #30 tab 11/10/20 Allergies Allergy/AdvReac Type Severity Reaction Status Date / Time No Known Allergies Allergy Unknown UNKNOWN Verified 10/17/20 03:09 [NO KNOWN ALLERGIES] Review of Systems Review of Systems: Pertinent positives and negatives as stated in HPI 10 point review of systems otherwise negative. PMFSH Past Medical History Source: nursing notes reviewed Medical History Anxiety Benign prostatic hyperplasia with lower urinary tract symptoms Bipolar 1 disorder Enlarged prostate Mood disorder Muscle strain of chest wall Pure hypercholesterolemia Right knee injury Schizoaffective disorder, bipolar type Smoker Thought disorder Surgical History History of open reduction and internal fixation (ORIF) procedure History of prostate surgery (~05/03/19) Family History Family History Father Lung cancer BPH (benign prostatic hyperplasia) Mother Dementia Brother Myocardial infarction Social History Social History Alcohol intake: never Advance Directives: No Physical Exam Vital Signs: Vital Signs: Last Vital Signs Temp 98 F 11/10/20 02:00 Pulse 86 11/10/20 02:00 Resp 18 11/10/20 02:00 BP 118/70 11/10/20 02:00 Pulse Ox 98 11/10/20 02:00 Body Mass Index 23.6 VITAL SIGNS: Reviewed. GENERAL: Well developed, well nourished, in no acute distress. HEAD: Normocephalic/atraumatic EYES: PERRLA, EOMI OROPHARYNX: no oral lesions noted, posterior pharynx clear NECK: Supple, no adenopathy LUNGS: Normal breath sounds. No adventitious sounds or accessory muscle use. SpO2<98> CARDIOVASCULAR: Regular rate and rhythm without noted murmurs ABDOMEN: Soft, non-tender, non-distended with bowel sounds. SKIN: Inspection of the skin reveals no rashes NEUROLOGIC: Alert and oriented x 4. Strength and sensation to light touch were grossly intact x 4. Course Course Course Narrative: 54-year-old male with history and clinical presentation consistent with anxiety no evidence to support infectious, anemic, or arrhythmogenic etiologies. Patient was provided with hydroxyzine 25 mg on on re-evaluation is feeling much better and requesting to be discharged. Discharge Plan Discharge Clinical Impression: Anxiety Patient Disposition: Home, Self-Care Instructions: Anxiety (ED) Additional Instructions: 1. Resume all home medications as prescribed. Return to the ER for any acute worsening of symptoms. Prescriptions: No Action bethanechol chloride 50 mg tablet 50 mg PO TID Qty: 90 RF: 2 shpokkji-udhd-VY-calcium-mins [Thera-M] 9 mg iron-400 mcg tablet 1 tab PO DAILY Qty: 30 RF: 6 acetaminophen 500 mg tablet 500 mg PO Q4H Qty: 180 RF: 0 loratadine 10 mg tablet 10 mg PO DAILY PRN (Reason: allergy symptoms) 30 Days Qty: 30 RF: 4 tamsulosin 0.4 mg capsule 0.4 mg PO BEDTIME 30 Days Qty: 30 RF: 4 finasteride 5 mg tablet 5 mg PO DAILY 30 Days Qty: 30 RF: 4 nitrofurantoin macrocrystal 50 mg capsule 50 mg PO BEDTIME 30 Days Qty: 30 RF: 4 ibuprofen 600 mg tablet 600 mg PO Q8H PRN (Reason: pain) 10 Days Qty: 30 RF: 1 atorvastatin 10 mg tablet 10 mg PO DAILY Qty: 30 RF: 2 nitrofurantoin macrocrystal 50 mg capsule 1 cap PO BEDTIME RF: 0 carbamazepine 200 mg tablet 400 mg PO BID RF: 0 tamsulosin 0.4 mg capsule 1 cap PO BEDTIME RF: 0 lorazepam 1 mg tablet 1 mg PO BID RF: 0 finasteride 5 mg tablet 1 tab PO QAM RF: 0 escitalopram oxalate 10 mg tablet 1 tab PO QAM RF: 0 aripiprazole 20 mg tablet 1 tab PO QAM RF: 0 Chantix 1 mg tablet 1 tab PO BID RF: 0 Lactobacillus acidophilus 100 mg (1 billion cell) capsule 1 cap PO QAM RF: 0 olanzapine 5 mg tablet 5 mg PO QAM AND QHS RF: 0 hydroxyzine HCl 10 mg tablet 1 tab PO TID PRN (Reason: anxiety) RF: 0 lorazepam [Ativan] 0.5 mg Tablet 0.5 mg PO DAILY RF: 0 diphenhydramine HCl [Benadryl] 25 mg capsule 25 mg PO DAILY PRN (Reason: Anxiety) RF: 0 baclofen 10 mg tablet 10 mg PO TID RF: 0 ibuprofen 600 mg tablet 600 mg PO TID Qty: 30 RF: 0 Referrals: Dk Rodriguez MD [Primary Care Provider] - 2 days (Please re-evaluate for anxiety.) Interventions: ED Discharge Assessment Last Done: 11/10/20 03:39 Discharge Date/Time: 11/10/20 03:40
[2020-11-10] MEDS: hydrOXYzine HCL 25 MG TABLET PO (03:09)
== END 2020-11-10 03:40 | disposition home or self-care (01) ==
PROVIDERS: Emergency Provider Student in an Organized Health Care Education/Training Program; PCP Internal Medicine
DX: F41.9 Anxiety disorder, unspecified (principal); Z72.89 Other problems related to lifestyle; F25.0 Schizoaffective disorder, bipolar type; E78.00 Pure hypercholesterolemia, unspecified; F17.210 Nicotine dependence, cigarettes, uncomplicated; Z79.899 Other long term (current) drug therapy
CPT/HCPCS: 99283

== ENCOUNTER 2020-11-20 01:33 | Emergency (ER) | payer MEDICARE, MEDICAID, SELFPAY ==
[2020-11-20 01:42] VITALS: BP 116/72; PULSE 80; RESP 16; TEMP 36.1; O2SAT 97; BMI 24.0
[2020-11-20 02:00] VITALS: BP 140/80; PULSE 80; RESP 16; O2SAT 97
[2020-11-20] MEDS: hydrOXYzine HCL 25 MG TABLET PO (02:05)
--- NOTE | 2020-11-20 03:08 | ED.ANXIETY ---
HPI - Anxiety General Chief Complaint: Anxiety Stated Complaint: anxiety Time Seen by Provider: 11/20/20 01:39 Source: patient Mode of arrival: ambulatory History of Present Illness HPI narrative: 54-year-old male who presents with reported anxiety secondary to his living condition and other inhabitants of his [place] [facility] but otherwise denies any suicidal or homicidal ideation. Related Data Home Medications Medication Instructions Recorded Confirmed diphenhydramine HCl 25 mg capsule 25 mg PO DAILY PRN cap 04/08/20 09/24/20 Lactobacillus acidophilus 1 cap PO QAM 06/21/20 07/19/20 aripiprazole 1 tab PO QAM 06/21/20 09/24/20 carbamazepine 400 mg PO BID 06/21/20 09/24/20 escitalopram oxalate 1 tab PO QAM 06/21/20 09/24/20 finasteride 1 tab PO QAM 06/21/20 07/19/20 hydroxyzine HCl 1 tab PO TID PRN 06/21/20 07/19/20 lorazepam 1 mg PO BID 06/21/20 09/24/20 lorazepam [Ativan] 0.5 mg PO DAILY 06/21/20 09/24/20 nitrofurantoin macrocrystal 1 cap PO BEDTIME 06/21/20 09/24/20 olanzapine 5 mg PO QAM AND QHS 06/21/20 09/24/20 tamsulosin 1 cap PO BEDTIME 06/21/20 07/19/20 varenicline [Chantix] 1 tab PO BID 06/21/20 07/19/20 baclofen 10 mg tablet 10 mg PO TID 09/24/20 09/24/20 Previous Rx's Medication Instructions Recorded bethanechol chloride 50 mg tablet 50 mg PO TID #90 tab 05/19/20 multivitamin-iron 9 mg-folic acid 1 tab PO DAILY #30 tab 06/22/20 400 mcg-calcium and minerals tablet acetaminophen 500 mg tablet 500 mg PO Q4H #180 tab 08/05/20 loratadine 10 mg tablet 10 mg PO DAILY PRN 30 Days #30 tab 08/05/20 finasteride 5 mg tablet 5 mg PO DAILY 30 Days #30 tab 08/11/20 nitrofurantoin macrocrystal 50 mg 50 mg PO BEDTIME 30 Days #30 cap 08/11/20 capsule tamsulosin 0.4 mg capsule 0.4 mg PO BEDTIME 30 Days #30 cap 08/11/20 ibuprofen 600 mg tablet 600 mg PO Q8H PRN 10 Days #30 tab 08/19/20 ibuprofen 600 mg tablet 600 mg PO TID #30 tab 09/24/20 atorvastatin 10 mg tablet 10 mg PO DAILY #30 tab 11/10/20 Allergies Allergy/AdvReac Type Severity Reaction Status Date / Time No Known Allergies Allergy Unknown UNKNOWN Verified 10/17/20 03:09 [NO KNOWN ALLERGIES] Review of Systems Review of Systems: Pertinent positives and negatives as stated in HPI 10 point review of systems is otherwise negative. [facility] Past Medical History Source: nursing notes reviewed Medical History Anxiety Benign prostatic hyperplasia with lower urinary tract symptoms Bipolar 1 disorder Enlarged prostate Mood disorder Muscle strain of chest wall Pure hypercholesterolemia Right knee injury Schizoaffective disorder, bipolar type Smoker Thought disorder Surgical History History of open reduction and internal fixation (ORIF) procedure History of prostate surgery (~05/03/19) Family History Family History Father Lung cancer BPH (benign prostatic hyperplasia) Mother Dementia Brother Myocardial infarction Social History Social History Alcohol intake: never Patient Tobacco Use Status: Current someday Tobacco user Use of substances other than those prescribed or required for medical reasons: No Advance Directives: No Advance Directives Information Provided: Yes Physical Exam Vital Signs: Vital Signs: Last Vital Signs Temp 97.0 F 11/20/20 01:42 Pulse 72 11/20/20 04:00 Resp 16 11/20/20 04:00 BP 140/80 H 11/20/20 02:00 Pulse Ox 97 11/20/20 04:00 Body Mass Index 24.0 VITAL SIGNS: Reviewed. GENERAL: Well developed, well nourished, in no acute distress. HEAD: Normocephalic/atraumatic EYES: PERRLA, EOMI EARS: Ext canals without abnormality OROPHARYNX: no oral lesions noted, posterior pharynx clear LUNGS: Normal breath sounds. No adventitious sounds or accessory muscle use. SpO2<97> CARDIOVASCULAR: Regular rate and rhythm without noted murmurs ABDOMEN: Soft, non-tender, non-distended with bowel sounds. NEUROLOGIC: Alert and oriented x 4. Course Course Course Narrative: This is a 54-year-old male well known to this ER who is chronically frustrated with his current living conditions although he seems happy to be working. Patient was provided with a single dose of hydroxyzine and on re-evaluation has had complete resolution of his feelings of anxiety and was discharged back to his [place] [facility] and employment. Discharge Plan Discharge Clinical Impression: Anxiety Patient Disposition: Home, Self-Care Instructions: Anxiety (ED) Additional Instructions: Return for worsening symptoms. Prescriptions: No Action bethanechol chloride 50 mg tablet 50 mg PO TID Qty: 90 RF: 2 ykgstfht-vklx-MI-calcium-mins [Thera-M] 9 mg iron-400 mcg tablet 1 tab PO DAILY Qty: 30 RF: 6 acetaminophen 500 mg tablet 500 mg PO Q4H Qty: 180 RF: 0 loratadine 10 mg tablet 10 mg PO DAILY PRN (Reason: allergy symptoms) 30 Days Qty: 30 RF: 4 tamsulosin 0.4 mg capsule 0.4 mg PO BEDTIME 30 Days Qty: 30 RF: 4 finasteride 5 mg tablet 5 mg PO DAILY 30 Days Qty: 30 RF: 4 nitrofurantoin macrocrystal 50 mg capsule 50 mg PO BEDTIME 30 Days Qty: 30 RF: 4 ibuprofen 600 mg tablet 600 mg PO Q8H PRN (Reason: pain) 10 Days Qty: 30 RF: 1 atorvastatin 10 mg tablet 10 mg PO DAILY Qty: 30 RF: 2 nitrofurantoin macrocrystal 50 mg capsule 1 cap PO BEDTIME RF: 0 carbamazepine 200 mg tablet 400 mg PO BID RF: 0 tamsulosin 0.4 mg capsule 1 cap PO BEDTIME RF: 0 lorazepam 1 mg tablet 1 mg PO BID RF: 0 finasteride 5 mg tablet 1 tab PO QAM RF: 0 escitalopram oxalate 10 mg tablet 1 tab PO QAM RF: 0 aripiprazole 20 mg tablet 1 tab PO QAM RF: 0 Chantix 1 mg tablet 1 tab PO BID RF: 0 Lactobacillus acidophilus 100 mg (1 billion cell) capsule 1 cap PO QAM RF: 0 olanzapine 5 mg tablet 5 mg PO QAM AND QHS RF: 0 hydroxyzine HCl 10 mg tablet 1 tab PO TID PRN (Reason: anxiety) RF: 0 lorazepam [Ativan] 0.5 mg Tablet 0.5 mg PO DAILY RF: 0 diphenhydramine HCl [Benadryl] 25 mg capsule 25 mg PO DAILY PRN (Reason: Anxiety) RF: 0 baclofen 10 mg tablet 10 mg PO TID RF: 0 ibuprofen 600 mg tablet 600 mg PO TID Qty: 30 RF: 0 Referrals: Dk Rodriguez MD [Primary Care Provider] - 2 days
--- NOTE | 2020-11-20 03:37 | PC.NURSE ---
PT SLEEPING ON STRETCHER. NO DISTRESS NOTED. RESP EVEN, EASY AND UNLABORED.
[2020-11-20 04:00] VITALS: PULSE 72; RESP 16; O2SAT 97
== END 2020-11-20 07:15 | disposition home or self-care (01) ==
PROVIDERS: Emergency Provider Student in an Organized Health Care Education/Training Program; PCP Internal Medicine
DX: F41.9 Anxiety disorder, unspecified (principal); Z79.899 Other long term (current) drug therapy
CPT/HCPCS: 99284

== ENCOUNTER 2020-11-28 02:35 | Emergency (ER) | payer MEDICARE, MEDICAID, SELFPAY ==
--- NOTE | ~2020-11-28 | XR_ITS ---
EXAMINATION: XR CHEST CLINICAL INFORMATION: Cough COMPARISON: 07/31/2020 TECHNIQUE: Frontal view of the chest was obtained. FINDINGS: Linear opacities at the lateral aspect of the left base likely correspond to atelectasis or scarring. There is blunting of the left lateral costophrenic sulcus which may be due to a trace effusion or scarring. No pneumothorax. No consolidation. Cardiac and mediastinal contours are normal. Pulmonary vasculature is normal. No acute osseous abnormalities. XR/XR chest 1V IMPRESSION: Linear opacities at the left lung base with associated blunting of the left lateral costophrenic sulcus, either due to atelectasis and a trace effusion or pleural parenchymal scarring. No pulmonary consolidation.
[2020-11-28 02:51] VITALS: BP 99/62; PULSE 80; RESP 20; TEMP 36.8; O2SAT 97; BMI 24.0
--- NOTE | 2020-11-28 02:55 | ED.URI ---
HPI - URI/Sore Throat General Chief Complaint: Upper Respiratory Symptoms Stated Complaint: Cold symptoms Time Seen by Provider: 11/28/20 02:49 Source: patient Mode of arrival: ambulatory Limitations: no limitations History of Present Illness HPI Narrative: Patient comes emergency room complaining of cough for 2 weeks. Patient denies fever chills, no ear pain, no sinus congestion, no rhinorrhea no sore throat. Patient states that he keeps spitting out clear phlegm Related Data Home Medications Medication Instructions Recorded Confirmed diphenhydramine HCl 25 mg capsule 25 mg PO DAILY PRN cap 04/08/20 09/24/20 Lactobacillus acidophilus 1 cap PO QAM 06/21/20 07/19/20 aripiprazole 1 tab PO QAM 06/21/20 09/24/20 carbamazepine 400 mg PO BID 06/21/20 09/24/20 escitalopram oxalate 1 tab PO QAM 06/21/20 09/24/20 finasteride 1 tab PO QAM 06/21/20 07/19/20 hydroxyzine HCl 1 tab PO TID PRN 06/21/20 07/19/20 lorazepam 1 mg PO BID 06/21/20 09/24/20 lorazepam [Ativan] 0.5 mg PO DAILY 06/21/20 09/24/20 nitrofurantoin macrocrystal 1 cap PO BEDTIME 06/21/20 09/24/20 olanzapine 5 mg PO QAM AND QHS 06/21/20 09/24/20 tamsulosin 1 cap PO BEDTIME 06/21/20 07/19/20 varenicline [Chantix] 1 tab PO BID 06/21/20 07/19/20 baclofen 10 mg tablet 10 mg PO TID 09/24/20 09/24/20 Previous Rx's Medication Instructions Recorded bethanechol chloride 50 mg tablet 50 mg PO TID #90 tab 05/19/20 multivitamin-iron 9 mg-folic acid 1 tab PO DAILY #30 tab 06/22/20 400 mcg-calcium and minerals tablet acetaminophen 500 mg tablet 500 mg PO Q4H #180 tab 08/05/20 loratadine 10 mg tablet 10 mg PO DAILY PRN 30 Days #30 tab 08/05/20 finasteride 5 mg tablet 5 mg PO DAILY 30 Days #30 tab 08/11/20 nitrofurantoin macrocrystal 50 mg 50 mg PO BEDTIME 30 Days #30 cap 08/11/20 capsule tamsulosin 0.4 mg capsule 0.4 mg PO BEDTIME 30 Days #30 cap 08/11/20 ibuprofen 600 mg tablet 600 mg PO Q8H PRN 10 Days #30 tab 08/19/20 ibuprofen 600 mg tablet 600 mg PO TID #30 tab 09/24/20 atorvastatin 10 mg tablet 10 mg PO DAILY #30 tab 11/10/20 guaifenesin 200 mg PO Q4H PRN #473 ml 11/28/20 Allergies Allergy/AdvReac Type Severity Reaction Status Date / Time No Known Allergies Allergy Unknown UNKNOWN Verified 10/17/20 03:09 [NO KNOWN ALLERGIES] Review of Systems Review of Systems: Constitutional : No Weight loss, No Fever, No Chills, No Night Sweats, No Fatigue, No Malaise ENT/Mouth : No Hearing loss, No Ear Pain, No Nasal Congestion, No Sinus Pain, No Hoarseness, No sore throat, No Rhinorrhea, No Swallowing Difficulty Eyes: No Eye Pain, No Swelling, No Redness, No Foreign Body, No Discharge, No Vision Changes Cardiovascular : No Chest Pain, No SOB, No Dyspnea on Exertion, No Orthopnea, No Edema, No Palpitations Respiratory : Complaining productive cough with clear sputum, No Wheezing, No Smoke Exposure, No Dyspnea Gastrointestinal : No Nausea, No Vomiting, No Diarrhea, No Constipation, No abdominal Pain, No Hematochezia, No Melena Genitourinary : no irregular bleeding, No Dysuria, No Urinary Frequency, No Hematuria, No Urinary Incontinence, No Urgency, No Flank Pain, No Urinary Flow Changes, No Hesitancy Musculoskeletal : No joint pain, No Myalgias, No Joint Swelling Skin : No Skin Lesions, No rash Neuro : No Weakness, No Numbness, No Paresthesias, No Loss of Consciousness, No Dizziness, No Headache Psych : No Anxiety/Panic, No Depression, No SI/HI/AH/VH, No Social Issues, Heme/Lymph: No Bruising, No Bleeding,No Lymphadenopathy Endocrine : No Polyuria, No Polydipsia, No Temperature Intolerance PMFSH Past Medical History Medical History Anxiety Benign prostatic hyperplasia with lower urinary tract symptoms Bipolar 1 disorder Enlarged prostate Mood disorder Muscle strain of chest wall Pure hypercholesterolemia Right knee injury Schizoaffective disorder, bipolar type Smoker Thought disorder Surgical History History of open reduction and internal fixation (ORIF) procedure History of prostate surgery (~05/03/19) Family History Family History Father Lung cancer BPH (benign prostatic hyperplasia) Mother Dementia Brother Myocardial infarction Social History Social History Alcohol intake: never Patient Tobacco Use Status: Current someday Tobacco user Use of substances other than those prescribed or required for medical reasons: No Advance Directives: No Physical Exam Vital Signs: Vital Signs: Last Vital Signs Temp 98.2 F 11/28/20 02:51 Pulse 80 11/28/20 02:51 Resp 20 11/28/20 02:51 BP 99/62 11/28/20 02:51 Pulse Ox 97 11/28/20 02:51 Body Mass Index 24.0 Appearance: Alert. Oriented X3. No acute distress. Eyes: Pupils equal, round and reactive to light. ENT: Pharynx normal. Neck: Normal inspection. Neck supple. No lymph nodes noted. No crepitus CVS: Normal heart rate and rhythm. Pulses normal. Normal S1 and S2 Respiratory: No respiratory distress. Breath sounds normal. No Wheezing. No rales Abdomen: Soft and nontender. No rigidity. No distention. good BS x4 Skin: Skin warm and dry. Normal skin color. Normal skin turgor. Extremities: No lower extremity edema. No lower extremity edema. No Lacerations. No Rash Neuro: Oriented X 3. No motor deficit. No sensory deficit. Moving all extermities. No slurred speech. Course Course Course Narrative: I discussed x-ray findings with the patient, no acute findings. COVID-19 test was negative MDM - URI/Sore Throat Lab Data Labs: Lab Results 11/28/20 Range/Units 03:03 COVID-19 (LEE) Negative (Negative) COVID-19 Clin Com See Note Imaging Data Chest x-ray: Radiologist's impression: FINDINGS: Linear opacities at the lateral aspect of the left base likely correspond to atelectasis or scarring. There is blunting of the left lateral costophrenic sulcus which may be due to a trace effusion or scarring. No pneumothorax. No consolidation. Cardiac and mediastinal contours are normal. Pulmonary vasculature is normal. No acute osseous abnormalities. XR/XR chest 1V IMPRESSION: Linear opacities at the left lung base with associated blunting of the left lateral costophrenic sulcus, either due to atelectasis and a trace effusion or pleural parenchymal scarring. No pulmonary consolidation. Discharge Plan Discharge Clinical Impression: Viral bronchitis Patient Disposition: Home, Self-Care Instructions: Acute Bronchitis (ED) Additional Instructions: Please follow-up with your primary care physician tomorrow. If you have any worsening or new symptoms, please return to the emergency room or call 911 Prescriptions: New guaifenesin 100 mg/5 mL liquid 200 mg PO Q4H PRN (Reason: congestion) Qty: 473 RF: 0 No Action bethanechol chloride 50 mg tablet 50 mg PO TID Qty: 90 RF: 2 wxmlcjfh-sggl-CO-calcium-mins [Thera-M] 9 mg iron-400 mcg tablet 1 tab PO DAILY Qty: 30 RF: 6 acetaminophen 500 mg tablet 500 mg PO Q4H Qty: 180 RF: 0 loratadine 10 mg tablet 10 mg PO DAILY PRN (Reason: allergy symptoms) 30 Days Qty: 30 RF: 4 tamsulosin 0.4 mg capsule 0.4 mg PO BEDTIME 30 Days Qty: 30 RF: 4 finasteride 5 mg tablet 5 mg PO DAILY 30 Days Qty: 30 RF: 4 nitrofurantoin macrocrystal 50 mg capsule 50 mg PO BEDTIME 30 Days Qty: 30 RF: 4 ibuprofen 600 mg tablet 600 mg PO Q8H PRN (Reason: pain) 10 Days Qty: 30 RF: 1 atorvastatin 10 mg tablet 10 mg PO DAILY Qty: 30 RF: 2 nitrofurantoin macrocrystal 50 mg capsule 1 cap PO BEDTIME RF: 0 carbamazepine 200 mg tablet 400 mg PO BID RF: 0 tamsulosin 0.4 mg capsule 1 cap PO BEDTIME RF: 0 lorazepam 1 mg tablet 1 mg PO BID RF: 0 finasteride 5 mg tablet 1 tab PO QAM RF: 0 escitalopram oxalate 10 mg tablet 1 tab PO QAM RF: 0 aripiprazole 20 mg tablet 1 tab PO QAM RF: 0 Chantix 1 mg tablet 1 tab PO BID RF: 0 Lactobacillus acidophilus 100 mg (1 billion cell) capsule 1 cap PO QAM RF: 0 olanzapine 5 mg tablet 5 mg PO QAM AND QHS RF: 0 hydroxyzine HCl 10 mg tablet 1 tab PO TID PRN (Reason: anxiety) RF: 0 lorazepam [Ativan] 0.5 mg Tablet 0.5 mg PO DAILY RF: 0 diphenhydramine HCl [Benadryl] 25 mg capsule 25 mg PO DAILY PRN (Reason: Anxiety) RF: 0 baclofen 10 mg tablet 10 mg PO TID RF: 0 ibuprofen 600 mg tablet 600 mg PO TID Qty: 30 RF: 0
[2020-11-28 03:23] LABS: COVID-19 Test Negative (Negative)
[2020-11-28 04:00] VITALS: BP 106/63; PULSE 67; RESP 16; O2SAT 97
== END 2020-11-28 04:18 | disposition home or self-care (01) ==
PROVIDERS: Emergency Provider Emergency Medicine; PCP Internal Medicine
DX: J20.8 Acute bronchitis due to other specified organisms (principal); Z20.822 Contact with and (suspected) exposure to COVID-19
CPT/HCPCS: 36415; 71045; 87635; 99283; 99284

== ENCOUNTER 2020-12-03 13:03 | Outpatient (REF) | payer MEDICARE, MEDICAID, SELFPAY ==
--- NOTE | ~2020-12-03 | XR_ITS ---
EXAMINATION: XR HAND, RIGHT CLINICAL INFORMATION: Right hand pain COMPARISON: None TECHNIQUE: PA, lateral, and oblique views of the right hand. FINDINGS: Bone alignment is normal. No fracture or dislocation is seen. There is arthritis at the first CHCF joint with joint space narrowing and osteophyte formation. Joint spaces are otherwise normal. Soft tissues are normal. XR/XR hand RT min 3V IMPRESSION: Mild arthritis at the first [facility] joint.
== END 2020-12-03 13:04 | disposition home or self-care (01) ==
LOC: HO.XRAY 13:03
PROVIDERS: PCP Internal Medicine; Visit Provider Internal Medicine
DX: M79.641 Pain in right hand (principal); M79.89 Other specified soft tissue disorders
CPT/HCPCS: 73130

== ENCOUNTER 2020-12-06 13:21 | Emergency (ER) | payer MEDICARE, MEDICAID, SELFPAY ==
[2020-12-06 13:25] VITALS: BP 111/71; PULSE 80; RESP 18; TEMP 37; O2SAT 97; BMI 25.8
--- NOTE | 2020-12-06 13:42 | ED_ITS ---
HPI - Psych General Chief Complaint: Psychiatric Symptoms Stated Complaint: crisis Time Seen by Provider: 12/06/20 13:41 Source: patient Mode of arrival: ambulatory Limitations: no limitations History of Present Illness HPI Narrative: this is 54 years old male well known to us with history of anxiety multiple ED visits, who lives in detention, presented with increasing anxiety, he states that he does not like his current detention and he would like to speak with a crisis about his option . He denies any SI, He denies HI. complaint: anxiety Onset (ago): day(s) (1) Duration: constant History of same: Yes Relieving factors: none Exacerbating factors: none Context: other (living situation) Associated symptoms: denies other symptoms Related Data Home Medications Medication Instructions Recorded Confirmed diphenhydramine HCl 25 mg capsule 25 mg PO DAILY PRN cap 04/08/20 12/03/20 aripiprazole 1 tab PO QAM 06/21/20 12/03/20 carbamazepine 400 mg PO BID 06/21/20 12/03/20 hydroxyzine HCl 1 tab PO TID PRN 06/21/20 12/03/20 lorazepam 1 mg PO BID 06/21/20 12/03/20 lorazepam [Ativan] 0.5 mg PO DAILY 06/21/20 12/03/20 olanzapine 5 mg PO QAM AND QHS 06/21/20 12/03/20 varenicline [Chantix] 1 tab PO BID 06/21/20 12/03/20 Lactobacillus acidophilus 100 mg 100 mg PO QAM 12/03/20 12/03/20 (1 billion cell) capsule escitalopram oxalate 10 mg tablet 10 mg PO QAM 12/03/20 12/03/20 Previous Rx's Medication Instructions Recorded multivitamin-iron 9 mg-folic acid 1 tab PO DAILY #30 tab 06/22/20 400 mcg-calcium and minerals tablet acetaminophen 500 mg tablet 500 mg PO Q4H #180 tab 08/05/20 loratadine 10 mg tablet 10 mg PO DAILY PRN 30 Days #30 tab 08/05/20 nitrofurantoin macrocrystal 50 mg 50 mg PO BEDTIME 30 Days #30 cap 08/11/20 capsule ibuprofen 600 mg tablet 600 mg PO TID #30 tab 09/24/20 atorvastatin 10 mg tablet 10 mg PO DAILY #30 tab 11/10/20 guaifenesin 200 mg PO Q4H PRN #473 ml 11/28/20 sennosides 8.6 mg capsule See Rx Instructions PO BEDTIME PRN 12/03/20 30 Days #60 cap tramadol 50 mg tablet 50 mg PO TID PRN 15 Days #45 tab 12/03/20 Allergies Allergy/AdvReac Type Severity Reaction Status Date / Time No Known Allergies Allergy Unknown UNKNOWN Verified 12/06/20 13:24 [NO KNOWN ALLERGIES] Review of Systems Review of Systems: Yes all other systems are reviewed and are negative Cardiovascular: Cardiovascular: Reports no additional cardiovascular complaints and Denies chest pain Respiratory: Respiratory: Reports no additional respiratory complaints and Reports no additional respiratory complaints Gastrointestinal: Gastrointestinal: Reports no additional gastrointestinal complaints, Denies abdominal pain and Denies belching Psychiatric: Psychiatric: Reports anxiety and Reports paranoia PMFSH Past Medical History Medical History Anxiety Benign prostatic hyperplasia with lower urinary tract symptoms Bipolar 1 disorder Constipation Enlarged prostate Mood disorder Muscle strain of chest wall Pure hypercholesterolemia Right hand pain Right knee injury Schizoaffective disorder, bipolar type Smoker Swelling of right hand Thought disorder Surgical History History of open reduction and internal fixation (ORIF) procedure History of prostate surgery (~05/03/19) Family History Family History Father Lung cancer BPH (benign prostatic hyperplasia) Mother Dementia Brother Myocardial infarction Other Mental health problem Substance abuse Social History Social History Housing Other:: detention Alcohol intake: never Patient Tobacco Use Status: Current everyday Tobacco user Cigarettes Per Day: 10 Use of substances other than those prescribed or required for medical reasons: No Advance Directives: Yes Advance Directives Information Provided: No Advance Directives on File: No service: No Current occupational status: employed Current occupation: [employer] Physical Exam Vital Signs: Vital Signs: Last Vital Signs Temp 98.6 F 12/06/20 13:25 Pulse 80 12/06/20 13:25 Resp 18 12/06/20 13:25 BP 111/71 12/06/20 13:25 Pulse Ox 97 12/06/20 13:25 Body Mass Index 25.8 Const: General: cooperative Orientation/consciousness: oriented to person, oriented to place and patient oriented x3 HENMT: Head: Yes normal to inspection Ears: hearing grossly normal bilaterally General nose exam: Normal external nose present Eyes: General: appearance normal, both eyes and all related structures Neck: Neck: Yes normal visual inspection, Yes full ROM and Yes no lymphadenopathy Chest: Chest palpation & inspection: normal inspection of the chest Resp: Effort & Inspection: normal respiratory effort and able to speak in complete sentences Auscultation: clear to auscultation bilaterally Cardio: Rate: regular rate Rhythm: regular rhythm GI: Inspection: Yes normal to inspection Palpation (GI): Soft to palpation and nontender Skin: General skin exam: no rashes or lesions noted and elasticity normal Neuro: General: oriented to person, oriented to place, oriented to time, patient oriented x3 and gait normal Psych: Appearance: grossly normal Course Course Course Narrative: He is feeling better, this patient is well-known to was multiple ED visit, he is frustrated about his living situation in the detention but is not SI Reevaluation(s) Time: 15:29 Reevaluation #2: Patient eloped, he was no suicidal and no homicidal, his vitals sign are stable, he is afebrile , normotensive Discharge Plan Discharge Clinical Impression: Anxiety Patient Disposition: Elopement Prescriptions: No Action [id number]-cpmc-[id number]-calcium-mins [Thera-M] 9 mg iron-400 mcg tablet 1 tab PO DAILY Qty: 30 RF: 6 acetaminophen 500 mg tablet 500 mg PO Q4H Qty: 180 RF: 0 loratadine 10 mg tablet 10 mg PO DAILY PRN (Reason: allergy symptoms) 30 Days Qty: 30 RF: 4 nitrofurantoin macrocrystal 50 mg capsule 50 mg PO BEDTIME 30 Days Qty: 30 RF: 4 atorvastatin 10 mg tablet 10 mg PO DAILY Qty: 30 RF: 2 carbamazepine 200 mg tablet 400 mg PO BID RF: 0 lorazepam 1 mg tablet 1 mg PO BID RF: 0 aripiprazole 20 mg tablet 1 tab PO QAM RF: 0 Chantix 1 mg tablet 1 tab PO BID RF: 0 olanzapine 5 mg tablet 5 mg PO QAM AND QHS RF: 0 hydroxyzine HCl 10 mg tablet 1 tab PO TID PRN (Reason: anxiety) RF: 0 lorazepam [Ativan] 0.5 mg Tablet 0.5 mg PO DAILY RF: 0 escitalopram oxalate 10 mg tablet 10 mg PO QAM RF: 0 Lactobacillus acidophilus 100 mg (1 billion cell) capsule 100 mg PO QAM RF: 0 guaifenesin 100 mg/5 mL liquid 200 mg PO Q4H PRN (Reason: congestion) Qty: 473 RF: 0 diphenhydramine HCl [Benadryl] 25 mg capsule 25 mg PO DAILY PRN (Reason: Anxiety) RF: 0 senna 8.6 mg capsule See Rx Instructions PO BEDTIME PRN (Reason: constipation) 30 Days Qty: 60 RF: 5 tramadol 50 mg tablet 50 mg PO TID PRN (Reason: pain) 15 Days Qty: 45 RF: 0 ibuprofen 600 mg tablet 600 mg PO TID Qty: 30 RF: 0
[2020-12-06] MEDS: LORazepam 1 MG TABLET PO (13:47)
--- NOTE | 2020-12-06 13:50 | PC.NURSE ---
pt medicated with ativan per order, pt states he is just agitated and anxious and wishes to speak with crisis, pt denies si/hi, provider aware, will notify [facility], will continue to monitor
--- NOTE | 2020-12-06 14:15 | PC.NURSE ---
attemted to send n info through the website and obtained an error message, spoke with charge nurse who agreed there is an internet issue at this time, faxed info to n and called and spoke with [facility]- they are aware the patient is in the ed and wanting to speak with crisis.
--- NOTE | 2020-12-06 15:29 | PC.NURSE ---
patient left room and walked outside, this nurse went outside to speak with the patient. patient stated he just didnt want to wait to talk with [facility] as they wont help him with his problem, pt stated that he just isnt happy at his half-way and that he needs to talk to the director there and see if he can get transferred to a different place. pt states that the other clients in the half-way give him anxiety and that they are hard to deal with. patient was encouraged to return to the room to speak with [facility] and he again stated that he didn't want to wait to see them. The provider was notified of the patients departure.
== END 2020-12-06 15:41 | disposition left against medical advice (07) ==
PROVIDERS: Emergency Provider Emergency Medicine; PCP Internal Medicine
DX: F41.9 Anxiety disorder, unspecified (principal); Z79.899 Other long term (current) drug therapy; Z72.89 Other problems related to lifestyle
CPT/HCPCS: 99283; 99284

== ENCOUNTER 2020-12-07 22:01 | Emergency (ER) | payer MEDICARE, MEDICAID, SELFPAY ==
[2020-12-07 22:10] VITALS: BP 115/78; PULSE 81; RESP 16; TEMP 36.1; O2SAT 96; BMI 25.8
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
== END 2020-12-07 23:16 | disposition home or self-care (01) ==
PROVIDERS: Emergency Provider Student in an Organized Health Care Education/Training Program; PCP Internal Medicine
DX: F41.9 Anxiety disorder, unspecified (principal); F25.0 Schizoaffective disorder, bipolar type; Z79.899 Other long term (current) drug therapy
CPT/HCPCS: 99283

== ENCOUNTER 2020-12-13 02:26 | Emergency (ER) | payer MEDICARE, MEDICAID, SELFPAY ==
[2020-12-13 02:36] VITALS: BP 103/61; PULSE 84; RESP 18; TEMP 36.7; O2SAT 96; BMI 23.6
--- NOTE | 2020-12-13 02:44 | ED_ITS ---
HPI - Anxiety General Chief Complaint: Anxiety Stated Complaint: general medical Time Seen by Provider: 12/13/20 02:44 History of Present Illness HPI narrative: 54-year-old male with a history of anxiety presented today after an argument with [facility]. Patient feel anxious. No suicidal homicidal ideation. Well known to the emergency department history of schizoaffective disorder bipolar. No chest pain or shortness breath no dizziness no nausea no vomiting Related Data Home Medications Medication Instructions Recorded Confirmed diphenhydramine HCl 25 mg capsule 25 mg PO DAILY PRN cap 04/08/20 12/03/20 aripiprazole 1 tab PO QAM 06/21/20 12/03/20 carbamazepine 400 mg PO BID 06/21/20 12/03/20 hydroxyzine HCl 1 tab PO TID PRN 06/21/20 12/03/20 lorazepam 1 mg PO BID 06/21/20 12/03/20 lorazepam [Ativan] 0.5 mg PO DAILY 06/21/20 12/03/20 olanzapine 5 mg PO QAM AND QHS 06/21/20 12/03/20 varenicline [Chantix] 1 tab PO BID 06/21/20 12/03/20 Lactobacillus acidophilus 100 mg 100 mg PO QAM 12/03/20 12/03/20 (1 billion cell) capsule escitalopram oxalate 10 mg tablet 10 mg PO QAM 12/03/20 12/03/20 Previous Rx's Medication Instructions Recorded multivitamin-iron 9 mg-folic acid 1 tab PO DAILY #30 tab 06/22/20 400 mcg-calcium and minerals tablet acetaminophen 500 mg tablet 500 mg PO Q4H #180 tab 08/05/20 loratadine 10 mg tablet 10 mg PO DAILY PRN 30 Days #30 tab 08/05/20 nitrofurantoin macrocrystal 50 mg 50 mg PO BEDTIME 30 Days #30 cap 08/11/20 capsule ibuprofen 600 mg tablet 600 mg PO TID #30 tab 09/24/20 atorvastatin 10 mg tablet 10 mg PO DAILY #30 tab 11/10/20 guaifenesin 200 mg PO Q4H PRN #473 ml 11/28/20 sennosides 8.6 mg capsule See Rx Instructions PO BEDTIME PRN 12/03/20 30 Days #60 cap tramadol 50 mg tablet 50 mg PO TID PRN 15 Days #45 tab 12/03/20 Allergies Allergy/AdvReac Type Severity Reaction Status Date / Time No Known Allergies Allergy Unknown UNKNOWN Verified 12/06/20 13:24 [NO KNOWN ALLERGIES] Review of Systems Review of Systems: Positive anxiety All systems reviewed otherwise negative [facility] Past Medical History Attestation statement: The following information was validated with the patient. Medical History Anxiety Benign prostatic hyperplasia with lower urinary tract symptoms Bipolar 1 disorder Constipation Enlarged prostate Mood disorder Muscle strain of chest wall Pure hypercholesterolemia Right hand pain Right knee injury Schizoaffective disorder, bipolar type Smoker Swelling of right hand Thought disorder Surgical History History of open reduction and internal fixation (ORIF) procedure History of prostate surgery (~05/03/19) Family History Family History Father Lung cancer BPH (benign prostatic hyperplasia) Mother Dementia Brother Myocardial infarction Other Mental health problem Substance abuse Social History Social History Housing Other:: penitentiary Alcohol intake: never Patient Tobacco Use Status: Current everyday Tobacco user Cigarettes Per Day: 10 Advance Directives: No service: No Current occupational status: employed Current occupation: [employer] Physical Exam Vital Signs: Vital Signs: Last Vital Signs Temp 98.0 F 12/13/20 02:36 Pulse 84 12/13/20 02:36 Resp 18 12/13/20 02:36 BP 103/61 12/13/20 02:36 Pulse Ox 96 12/13/20 02:36 Body Mass Index 23.6 Appearance: Alert. Oriented X3. No acute distress. Eyes: Pupils equal, round and reactive to light. ENT: Pharynx normal. Neck: Normal inspection. Neck supple. No lymph nodes noted. No crepitus CVS: Normal heart rate and rhythm. Pulses normal. Normal S1 and S2 Respiratory: No respiratory distress. Breath sounds normal. No Wheezing. No rales Abdomen: Soft and nontender. No rigidity. No distention. good BS x4 Skin: Skin warm and dry. Normal skin color. Normal skin turgor. Extremities: No lower extremity edema. Neurovascular intact to all extremities. No Lacerations. No Rash Neuro: Oriented X 3. No motor deficit. No sensory deficit. Moving all extermities. No slurred speech MDM - Anxiety MDM Narrative Medical decision making narrative: No suicidal homicidal ideation. Spoke with patient extensively. Now feels more comfortable. Wants to go home. Will discharge for anxiety. In stable condition. Medical Records Attestation: I reviewed the patient's medical records. Lab Data Attestation: I reviewed the patient's lab results. Discharge Plan Discharge Clinical Impression: Anxiety, Schizoaffective disorder, bipolar type Patient Disposition: Home, Self-Care Instructions: Schizoaffective Disorder (ED), Anxiety (ED) Prescriptions: No Action jwbyfrog-ufyr-DA-calcium-mins [Thera-M] 9 mg iron-400 mcg tablet 1 tab PO DAILY Qty: 30 RF: 6 acetaminophen 500 mg tablet 500 mg PO Q4H Qty: 180 RF: 0 loratadine 10 mg tablet 10 mg PO DAILY PRN (Reason: allergy symptoms) 30 Days Qty: 30 RF: 4 nitrofurantoin macrocrystal 50 mg capsule 50 mg PO BEDTIME 30 Days Qty: 30 RF: 4 atorvastatin 10 mg tablet 10 mg PO DAILY Qty: 30 RF: 2 carbamazepine 200 mg tablet 400 mg PO BID RF: 0 lorazepam 1 mg tablet 1 mg PO BID RF: 0 aripiprazole 20 mg tablet 1 tab PO QAM RF: 0 Chantix 1 mg tablet 1 tab PO BID RF: 0 olanzapine 5 mg tablet 5 mg PO QAM AND QHS RF: 0 hydroxyzine HCl 10 mg tablet 1 tab PO TID PRN (Reason: anxiety) RF: 0 lorazepam [Ativan] 0.5 mg Tablet 0.5 mg PO DAILY RF: 0 escitalopram oxalate 10 mg tablet 10 mg PO QAM RF: 0 Lactobacillus acidophilus 100 mg (1 billion cell) capsule 100 mg PO QAM RF: 0 guaifenesin 100 mg/5 mL liquid 200 mg PO Q4H PRN (Reason: congestion) Qty: 473 RF: 0 diphenhydramine HCl [Benadryl] 25 mg capsule 25 mg PO DAILY PRN (Reason: Anxiety) RF: 0 senna 8.6 mg capsule See Rx Instructions PO BEDTIME PRN (Reason: constipation) 30 Days Qty: 60 RF: 5 tramadol 50 mg tablet 50 mg PO TID PRN (Reason: pain) 15 Days Qty: 45 RF: 0 ibuprofen 600 mg tablet 600 mg PO TID Qty: 30 RF: 0 Referrals: Dk Rodriguez MD [Primary Care Provider] - 2 days
== END 2020-12-13 02:58 | disposition home or self-care (01) ==
PROVIDERS: Emergency Provider Emergency Medicine Emergency Medical Services; PCP Internal Medicine
DX: F41.9 Anxiety disorder, unspecified (principal); F25.0 Schizoaffective disorder, bipolar type; Z79.899 Other long term (current) drug therapy
CPT/HCPCS: 99282; 99284

== ENCOUNTER 2020-12-19 01:52 | Emergency (ER) | payer MEDICARE, MEDICAID, SELFPAY ==
[2020-12-19 02:09] VITALS: BP 107/74; PULSE 79; RESP 18; TEMP 36.6; O2SAT 97; BMI 24.9
--- NOTE | 2020-12-19 06:31 | ED.ANXIETY ---
HPI - Anxiety General Chief Complaint: Anxiety Stated Complaint: anxiety Time Seen by Provider: 12/19/20 05:56 Source: patient Mode of arrival: ambulatory Limitations: no limitations History of Present Illness MD complaint: anxiety Onset (ago): month(s) Severity: similar to previous episodes Quality: constant Place: home History of similar episodes: Yes Provoking factors: other (issues at the skilled nursing stress him out) Relieving factors: nothing Exacerbating factors: thinking about event Associated symptoms: denies other symptoms Related Data Home Medications Medication Instructions Recorded Confirmed diphenhydramine HCl 25 mg capsule 25 mg PO DAILY PRN cap 04/08/20 12/03/20 aripiprazole 1 tab PO QAM 06/21/20 12/03/20 carbamazepine 400 mg PO BID 06/21/20 12/03/20 hydroxyzine HCl 1 tab PO TID PRN 06/21/20 12/03/20 lorazepam 1 mg PO BID 06/21/20 12/03/20 lorazepam [Ativan] 0.5 mg PO DAILY 06/21/20 12/03/20 olanzapine 5 mg PO QAM AND QHS 06/21/20 12/03/20 varenicline [Chantix] 1 tab PO BID 06/21/20 12/03/20 Lactobacillus acidophilus 100 mg 100 mg PO QAM 12/03/20 12/03/20 (1 billion cell) capsule escitalopram oxalate 10 mg tablet 10 mg PO QAM 12/03/20 12/03/20 Previous Rx's Medication Instructions Recorded multivitamin-iron 9 mg-folic acid 1 tab PO DAILY #30 tab 06/22/20 400 mcg-calcium and minerals tablet acetaminophen 500 mg tablet 500 mg PO Q4H #180 tab 08/05/20 loratadine 10 mg tablet 10 mg PO DAILY PRN 30 Days #30 tab 08/05/20 nitrofurantoin macrocrystal 50 mg 50 mg PO BEDTIME 30 Days #30 cap 08/11/20 capsule ibuprofen 600 mg tablet 600 mg PO TID #30 tab 09/24/20 atorvastatin 10 mg tablet 10 mg PO DAILY #30 tab 11/10/20 guaifenesin 200 mg PO Q4H PRN #473 ml 11/28/20 sennosides 8.6 mg capsule See Rx Instructions PO BEDTIME PRN 12/03/20 30 Days #60 cap tramadol 50 mg tablet 50 mg PO TID PRN 15 Days #45 tab 12/03/20 Allergies Allergy/AdvReac Type Severity Reaction Status Date / Time No Known Allergies Allergy Unknown UNKNOWN Verified 12/06/20 13:24 [NO KNOWN ALLERGIES] Review of Systems Review of Systems: Constitutional : No Fever, No Chills Cardiovascular : No Chest Pain, No SOB Respiratory : No Cough, No Sputum, No Dyspnea Gastrointestinal : No Nausea, No Vomiting, No Diarrhea Genitourinary : No Dysuria, No Urinary Frequency Musculoskeletal : No Myalgias Skin : No Skin Lesions, No rash Neuro : No Weakness, No Numbness Psych : positive Anxiety, positive Depression, no SI/HI PMFSH Past Medical History Attestation statement: The following information was validated with the patient. Medical History Anxiety Benign prostatic hyperplasia with lower urinary tract symptoms Bipolar 1 disorder Constipation Enlarged prostate Mood disorder Muscle strain of chest wall Pure hypercholesterolemia Right hand pain Right knee injury Schizoaffective disorder, bipolar type Smoker Swelling of right hand Thought disorder Surgical History History of open reduction and internal fixation (ORIF) procedure History of prostate surgery (~05/03/19) Family History Family History Father Lung cancer BPH (benign prostatic hyperplasia) Mother Dementia Brother Myocardial infarction Other Mental health problem Substance abuse Social History Social History Housing Other:: skilled nursing Alcohol intake: never Patient Tobacco Use Status: Current everyday Tobacco user Cigarettes Per Day: 10 Advance Directives: No Advance Directives Information Provided: No service: No Current occupational status: employed Current occupation: [employer] Physical Exam Vital Signs: Vital Signs: Last Vital Signs Temp 97.8 F 12/19/20 02:09 Pulse 79 12/19/20 02:09 Resp 18 12/19/20 02:09 BP 107/74 12/19/20 02:09 Pulse Ox 97 12/19/20 02:09 Body Mass Index 24.9 Appearance: Alert. Oriented X3. No acute distress. Not anxious had to be woken from sleep Eyes: Pupils equal, round and reactive to light. ENT: Pharynx normal. Neck: Normal inspection. Neck supple. CVS: Normal heart rate and rhythm. Pulses normal. Respiratory: No respiratory distress. Breath sounds normal. Abdomen: Soft and non-tender. Skin: Skin warm and dry. Normal skin color. Normal skin turgor. Extremities: No lower extremity edema. No calf ttp Neuro: Oriented X 3. No motor deficit. No sensory deficit. MDM - Anxiety MDM Narrative Medical decision making narrative: 55 yo male well known to our ED for mental health issues and anxiety at this time he states he feels better after sleeping, no SI - offered crisis he declined, wants to go home. Stable for DC Discharge Plan Discharge Clinical Impression: Acute anxiety Patient Disposition: Home, Self-Care Instructions: Anxiety (ED) Additional Instructions: return to ED for any worsening symptoms or concerns Prescriptions: No Action zmftiioj-damd-UH-calcium-mins [Thera-M] 9 mg iron-400 mcg tablet 1 tab PO DAILY Qty: 30 RF: 6 acetaminophen 500 mg tablet 500 mg PO Q4H Qty: 180 RF: 0 loratadine 10 mg tablet 10 mg PO DAILY PRN (Reason: allergy symptoms) 30 Days Qty: 30 RF: 4 nitrofurantoin macrocrystal 50 mg capsule 50 mg PO BEDTIME 30 Days Qty: 30 RF: 4 atorvastatin 10 mg tablet 10 mg PO DAILY Qty: 30 RF: 2 carbamazepine 200 mg tablet 400 mg PO BID RF: 0 lorazepam 1 mg tablet 1 mg PO BID RF: 0 aripiprazole 20 mg tablet 1 tab PO QAM RF: 0 Chantix 1 mg tablet 1 tab PO BID RF: 0 olanzapine 5 mg tablet 5 mg PO QAM AND QHS RF: 0 hydroxyzine HCl 10 mg tablet 1 tab PO TID PRN (Reason: anxiety) RF: 0 lorazepam [Ativan] 0.5 mg Tablet 0.5 mg PO DAILY RF: 0 escitalopram oxalate 10 mg tablet 10 mg PO QAM RF: 0 Lactobacillus acidophilus 100 mg (1 billion cell) capsule 100 mg PO QAM RF: 0 guaifenesin 100 mg/5 mL liquid 200 mg PO Q4H PRN (Reason: congestion) Qty: 473 RF: 0 diphenhydramine HCl [Benadryl] 25 mg capsule 25 mg PO DAILY PRN (Reason: Anxiety) RF: 0 senna 8.6 mg capsule See Rx Instructions PO BEDTIME PRN (Reason: constipation) 30 Days Qty: 60 RF: 5 tramadol 50 mg tablet 50 mg PO TID PRN (Reason: pain) 15 Days Qty: 45 RF: 0 ibuprofen 600 mg tablet 600 mg PO TID Qty: 30 RF: 0
--- NOTE | 2020-12-19 06:39 | PC.NURSE ---
Pt sleeping in bed at this time in NAD. Per MD Knight to hold Atarax as pt remains sound asleep in bed at this time.
== END 2020-12-19 06:48 | disposition home or self-care (01) ==
PROVIDERS: Emergency Provider Emergency Medicine; PCP Internal Medicine
DX: F41.9 Anxiety disorder, unspecified (principal); F25.0 Schizoaffective disorder, bipolar type; Z79.899 Other long term (current) drug therapy
CPT/HCPCS: 99283

== ENCOUNTER 2020-12-25 01:05 | Emergency (ER) | payer MEDICARE, MEDICAID, SELFPAY ==
[2020-12-25 01:20] VITALS: BP 116/68; PULSE 92; RESP 18; TEMP 37.2; O2SAT 99; BMI 22.9
--- NOTE | 2020-12-25 01:27 | ED_ITS ---
HPI - General Adult General Chief complaint: General Medical Stated complaint: PT comes from longterm freq Time Seen by Provider: 12/25/20 01:10 Source: patient Mode of arrival: ambulatory Limitations: no limitations History of Present Illness HPI narrative: Patient comes to emergency room complaining that he is not acting well to his longterm. Patient states he does not want to live there anymore, would like to go to a different facility. Related Data Home Medications Medication Instructions Recorded Confirmed diphenhydramine HCl 25 mg capsule 25 mg PO DAILY PRN cap 04/08/20 12/03/20 aripiprazole 1 tab PO QAM 06/21/20 12/03/20 carbamazepine 400 mg PO BID 06/21/20 12/03/20 hydroxyzine HCl 1 tab PO TID PRN 06/21/20 12/03/20 lorazepam 1 mg PO BID 06/21/20 12/03/20 lorazepam [Ativan] 0.5 mg PO DAILY 06/21/20 12/03/20 olanzapine 5 mg PO QAM AND QHS 06/21/20 12/03/20 varenicline [Chantix] 1 tab PO BID 06/21/20 12/03/20 Lactobacillus acidophilus 100 mg 100 mg PO QAM 12/03/20 12/03/20 (1 billion cell) capsule escitalopram oxalate 10 mg tablet 10 mg PO QAM 12/03/20 12/03/20 Previous Rx's Medication Instructions Recorded multivitamin-iron 9 mg-folic acid 1 tab PO DAILY #30 tab 06/22/20 400 mcg-calcium and minerals tablet acetaminophen 500 mg tablet 500 mg PO Q4H #180 tab 08/05/20 loratadine 10 mg tablet 10 mg PO DAILY PRN 30 Days #30 tab 08/05/20 nitrofurantoin macrocrystal 50 mg 50 mg PO BEDTIME 30 Days #30 cap 08/11/20 capsule ibuprofen 600 mg tablet 600 mg PO TID #30 tab 09/24/20 atorvastatin 10 mg tablet 10 mg PO DAILY #30 tab 11/10/20 guaifenesin 200 mg PO Q4H PRN #473 ml 11/28/20 sennosides 8.6 mg capsule See Rx Instructions PO BEDTIME PRN 12/03/20 30 Days #60 cap tramadol 50 mg tablet 50 mg PO TID PRN 15 Days #45 tab 12/03/20 Allergies Allergy/AdvReac Type Severity Reaction Status Date / Time No Known Allergies Allergy Unknown UNKNOWN Verified 12/06/20 13:24 [NO KNOWN ALLERGIES] Review of Systems Review of Systems: Constitutional : No Weight loss, No Fever, No Chills, No Night Sweats, No Fatigue, No Malaise ENT/Mouth : No Hearing loss, No Ear Pain, No Nasal Congestion, No Sinus Pain, No Hoarseness, No sore throat, No Rhinorrhea, No Swallowing Difficulty Eyes: No Eye Pain, No Swelling, No Redness, No Foreign Body, No Discharge, No Vision Changes Cardiovascular : No Chest Pain, No SOB, No Dyspnea on Exertion, No Orthopnea, No Edema, No Palpitations Respiratory : No Cough, No Sputum, No Wheezing, No Smoke Exposure, No Dyspnea Gastrointestinal : No Nausea, No Vomiting, No Diarrhea, No Constipation, No abdominal Pain, No Hematochezia, No Melena Genitourinary : no irregular bleeding, No Dysuria, No Urinary Frequency, No Hematuria, No Urinary Incontinence, No Urgency, No Flank Pain, No Urinary Flow Changes, No Hesitancy Musculoskeletal : No joint pain, No Myalgias, No Joint Swelling Skin : No Skin Lesions, No rash Neuro : No Weakness, No Numbness, No Paresthesias, No Loss of Consciousness, No Dizziness, No Headache Psych : No Anxiety/Panic, No Depression, No SI/HI/AH/VH, No Social Issues, Heme/Lymph: No Bruising, No Bleeding,No Lymphadenopathy Endocrine : No Polyuria, No Polydipsia, No Temperature Intolerance [facility] Past Medical History Medical History Anxiety Benign prostatic hyperplasia with lower urinary tract symptoms Bipolar 1 disorder Constipation Enlarged prostate Mood disorder Muscle strain of chest wall Pure hypercholesterolemia Right hand pain Right knee injury Schizoaffective disorder, bipolar type Smoker Swelling of right hand Thought disorder Surgical History History of open reduction and internal fixation (ORIF) procedure History of prostate surgery (~05/03/19) Family History Family History Father Lung cancer BPH (benign prostatic hyperplasia) Mother Dementia Brother Myocardial infarction Other Mental health problem Substance abuse Social History Social History Housing Other:: longterm Alcohol intake: never Patient Tobacco Use Status: Current everyday Tobacco user Cigarettes Per Day: 10 Advance Directives: No Advance Directives Information Provided: No service: No Current occupational status: employed Current occupation: [employer] Physical Exam Vital Signs: Vital Signs: Last Vital Signs Temp 98.9 F 12/25/20 01:20 Pulse 92 12/25/20 01:20 Resp 18 12/25/20 01:20 BP 116/68 12/25/20 01:20 Pulse Ox 99 12/25/20 01:20 Body Mass Index 22.9 Appearance: Alert. Oriented X3. No acute distress. Eyes: Pupils equal, round and reactive to light. ENT: Pharynx normal. Neck: Normal inspection. Neck supple. No lymph nodes noted. No crepitus CVS: Normal heart rate and rhythm. Pulses normal. Normal S1 and S2 Respiratory: No respiratory distress. Breath sounds normal. No Wheezing. No rales Abdomen: Soft and nontender. No rigidity. No distention. good BS x4 Skin: Skin warm and dry. Normal skin color. Normal skin turgor. Extremities: No lower extremity edema. No Lacerations. No Rash Neuro: Oriented X 3. No motor deficit. No sensory deficit. Moving all exter mities. No slurred speech. Course Course Course Narrative: Unfortunately, as mentioned a week and a help him with full hospice patient did patient instructed to talk to the staff for possible relocation he did Discharge Plan Discharge Clinical Impression: Anxiety Patient Disposition: Home, Self-Care Instructions: Anxiety (ED) Prescriptions: No Action ablalhum-nabg-KD-calcium-mins [Thera-M] 9 mg iron-400 mcg tablet 1 tab PO DAILY Qty: 30 RF: 6 acetaminophen 500 mg tablet 500 mg PO Q4H Qty: 180 RF: 0 loratadine 10 mg tablet 10 mg PO DAILY PRN (Reason: allergy symptoms) 30 Days Qty: 30 RF: 4 nitrofurantoin macrocrystal 50 mg capsule 50 mg PO BEDTIME 30 Days Qty: 30 RF: 4 atorvastatin 10 mg tablet 10 mg PO DAILY Qty: 30 RF: 2 carbamazepine 200 mg tablet 400 mg PO BID RF: 0 lorazepam 1 mg tablet 1 mg PO BID RF: 0 aripiprazole 20 mg tablet 1 tab PO QAM RF: 0 Chantix 1 mg tablet 1 tab PO BID RF: 0 olanzapine 5 mg tablet 5 mg PO QAM AND QHS RF: 0 hydroxyzine HCl 10 mg tablet 1 tab PO TID PRN (Reason: anxiety) RF: 0 lorazepam [Ativan] 0.5 mg Tablet 0.5 mg PO DAILY RF: 0 escitalopram oxalate 10 mg tablet 10 mg PO QAM RF: 0 Lactobacillus acidophilus 100 mg (1 billion cell) capsule 100 mg PO QAM RF: 0 guaifenesin 100 mg/5 mL liquid 200 mg PO Q4H PRN (Reason: congestion) Qty: 473 RF: 0 diphenhydramine HCl [Benadryl] 25 mg capsule 25 mg PO DAILY PRN (Reason: Anxiety) RF: 0 senna 8.6 mg capsule See Rx Instructions PO BEDTIME PRN (Reason: constipation) 30 Days Qty: 60 RF: 5 tramadol 50 mg tablet 50 mg PO TID PRN (Reason: pain) 15 Days Qty: 45 RF: 0 ibuprofen 600 mg tablet 600 mg PO TID Qty: 30 RF: 0
== END 2020-12-25 01:53 | disposition home or self-care (01) ==
PROVIDERS: Emergency Provider Emergency Medicine
DX: F33.1 Major depressive disorder, recurrent, moderate (principal); F41.1 Generalized anxiety disorder; F43.0 Acute stress reaction; F17.200 Nicotine dependence, unspecified, uncomplicated; Z79.899 Other long term (current) drug therapy; Z71.6 Tobacco abuse counseling
CPT/HCPCS: 99283

== ENCOUNTER 2020-12-30 22:20 | Emergency (ER) | payer MEDICARE, MEDICAID, SELFPAY ==
[2020-12-30 22:33] VITALS: BP 114/70; PULSE 88; RESP 18; TEMP 36.8; O2SAT 97; BMI 24.0
== END 2020-12-30 23:22 | disposition left against medical advice (07) ==
PROVIDERS: Emergency Provider Emergency Medicine
DX: R33.9 Retention of urine, unspecified (principal)
CPT/HCPCS: 99281; 99282

== ENCOUNTER 2021-01-07 22:43 | Emergency (ER) | payer MEDICARE, MEDICAID, SELFPAY ==
[2021-01-07 22:48] VITALS: PULSE 98; RESP 18; TEMP 37.2; O2SAT 94; BMI 24.3
== END 2021-01-07 23:47 | disposition left against medical advice (07) ==
PROVIDERS: Emergency Provider Emergency Medicine; PCP Internal Medicine
DX: Z04.89 Encounter for examination and observation for other specified reasons (principal)
CPT/HCPCS: 99282

== ENCOUNTER 2021-01-16 01:43 | Emergency (ER) | payer MEDICARE, MEDICAID, SELFPAY ==
[2021-01-16 02:06] VITALS: BP 116/74; PULSE 78; RESP 20; TEMP 36; O2SAT 97; BMI 24.3
== END 2021-01-16 03:14 | disposition left against medical advice (07) ==
PROVIDERS: Emergency Provider Emergency Medicine; PCP Internal Medicine
DX: F41.9 Anxiety disorder, unspecified (principal); Z72.89 Other problems related to lifestyle; Z63.8 Other specified problems related to primary support group
CPT/HCPCS: 99281; 99282

== ENCOUNTER 2021-01-26 | Emergency (ER) | payer MEDICARE, MEDICAID, SELFPAY ==
[2021-01-26 00:04] VITALS: BP 123/64; PULSE 90; RESP 18; TEMP 36.6; O2SAT 97; BMI 22.9
--- NOTE | 2021-01-26 00:25 | ED.GENADULT ---
HPI - General Adult General Chief complaint: General Medical Stated complaint: General Medical Time Seen by Provider: 01/26/21 00:25 Source: patient Mode of arrival: ambulatory Limitations: no limitations History of Present Illness HPI narrative: Patient with history of anxiety bipolar been here multiple times well known to our crisis team came as he is not able to relax at home plan to go to living room tomorrow. Denies any current suicidal ideation does want to relax overnight so that he can go to living room tomorrow Related Data Home Medications Medication Instructions Recorded Confirmed diphenhydramine HCl 25 mg capsule 25 mg PO DAILY PRN cap 04/08/20 12/03/20 (Benadryl) aripiprazole 20 mg tablet 1 tab PO QAM 06/21/20 12/03/20 carbamazepine 200 mg tablet 400 mg PO BID 06/21/20 12/03/20 hydroxyzine HCl 10 mg tablet 1 tab PO TID PRN 06/21/20 12/03/20 lorazepam 0.5 mg tablet (Ativan) 0.5 mg PO DAILY 06/21/20 12/03/20 lorazepam 1 mg tablet 1 mg PO BID 06/21/20 12/03/20 olanzapine 5 mg tablet 5 mg PO QAM AND QHS 06/21/20 12/03/20 varenicline 1 mg tablet (Chantix) 1 tab PO BID 06/21/20 12/03/20 Lactobacillus acidophilus 100 mg 100 mg PO QAM 12/03/20 12/03/20 (1 billion cell) capsule escitalopram oxalate 10 mg tablet 10 mg PO QAM 12/03/20 12/03/20 Previous Rx's Medication Instructions Recorded multivitamin-iron 9 mg-folic acid 1 tab PO DAILY #30 tab 06/22/20 400 mcg-calcium and minerals tablet (Thera-M) acetaminophen 500 mg tablet 500 mg PO Q4H #180 tab 08/05/20 loratadine 10 mg tablet 10 mg PO DAILY PRN 30 Days #30 tab 08/05/20 nitrofurantoin macrocrystal 50 mg 50 mg PO BEDTIME 30 Days #30 cap 08/11/20 capsule ibuprofen 600 mg tablet 600 mg PO TID #30 tab 09/24/20 atorvastatin 10 mg tablet 10 mg PO DAILY #30 tab 11/10/20 guaifenesin 100 mg/5 mL oral liquid 200 mg PO Q4H PRN #473 ml 11/28/20 sennosides 8.6 mg capsule (senna) See Rx Instructions PO BEDTIME PRN 12/03/20 30 Days #60 cap tramadol 50 mg tablet 50 mg PO TID PRN 15 Days #45 tab 12/03/20 Allergies Allergy/AdvReac Type Severity Reaction Status Date / Time No Known Allergies Allergy Unknown UNKNOWN Verified 01/26/21 00:04 [NO KNOWN ALLERGIES] Review of Systems Review of Systems: Constitutional : No Fever, No Chills ENT/Mouth : No Ear Pain, No Nasal Congestion, No sore throat Eyes: No Eye Pain, No Swelling, No Redness Cardiovascular : No Chest Pain, No SOB Respiratory : No Cough, No Sputum, No Dyspnea Gastrointestinal : No Nausea, No Vomiting, No Diarrhea, No Hematochezia, No Melena Genitourinary : No Dysuria, No Urinary Frequency, No Hematuria Musculoskeletal : No Myalgias Skin : No Skin Lesions, No rash Neuro : No Weakness, No Numbness, No Paresthesias, No Dizziness, No Headache Psych : positive Anxiety, positive Depression, positive SI/HI Heme/Lymph: No Lymphadenopathy Endocrine : No Polyuria, No Polydipsia PMFSH Past Medical History Medical History Anxiety Benign prostatic hyperplasia with lower urinary tract symptoms Bipolar 1 disorder Constipation Enlarged prostate Mood disorder Muscle strain of chest wall Pure hypercholesterolemia Right hand pain Right knee injury Schizoaffective disorder, bipolar type Smoker Swelling of right hand Thought disorder Surgical History History of open reduction and internal fixation (ORIF) procedure History of prostate surgery (~05/03/19) Family History Family History Father Lung cancer BPH (benign prostatic hyperplasia) Mother Dementia Brother Myocardial infarction Other Mental health problem Substance abuse Social History Social History Housing Other:: senior care Alcohol intake: never Patient Tobacco Use Status: Current everyday Tobacco user Cigarettes Per Day: 10 Advance Directives: No Advance Directives Information Provided: Yes service: No Current occupational status: employed Current occupation: [employer] Physical Exam Vital Signs: Vital Signs: Last Vital Signs Temp 97.8 F 01/26/21 00:04 Pulse 90 01/26/21 00:04 Resp 18 01/26/21 00:04 BP 123/64 01/26/21 00:04 Pulse Ox 97 01/26/21 00:04 Body Mass Index 22.9 Appearance: Alert. Oriented X3. No acute distress. Anxious++ Eyes: PERRLA, No Nystagmus ENT: Pharynx normal. Oral Mucosa moist Neck: Normal inspection. Neck supple. CVS: Normal heart rate and rhythm. Pulses normal. Respiratory: No respiratory distress. Equal air entry bilateral, no wheezing/rales/rhonchi Abdomen: Soft and nontender. Bowel sounds are present, no mass palpable, no CVA tenderness Skin: Skin warm and dry. Normal skin color. Normal skin turgor. Extremities: No lower extremity edema. No calf tenderness Neuro: Oriented X 3. No motor deficit. No sensory deficit.No cerebellar signs , cranial nerves II-XII intact Medical Decision Making MDM Narrative Medical decision making narrative: Patient with anxiety will be going to living place tomorrow in the morning will keep him overnight. Discharge Plan Discharge Clinical Impression: Anxiety Prescriptions: No Action sttablle-ovzy-VR-calcium-mins [Thera-M] 9 mg iron-400 mcg tablet 1 tab PO DAILY Qty: 30 RF: 6 acetaminophen 500 mg tablet 500 mg PO Q4H Qty: 180 RF: 0 loratadine 10 mg tablet 10 mg PO DAILY PRN (Reason: allergy symptoms) 30 Days Qty: 30 RF: 4 nitrofurantoin macrocrystal 50 mg capsule 50 mg PO BEDTIME 30 Days Qty: 30 RF: 4 atorvastatin 10 mg tablet 10 mg PO DAILY Qty: 30 RF: 2 carbamazepine 200 mg tablet 400 mg PO BID RF: 0 lorazepam 1 mg tablet 1 mg PO BID RF: 0 aripiprazole 20 mg tablet 1 tab PO QAM RF: 0 Chantix 1 mg tablet 1 tab PO BID RF: 0 olanzapine 5 mg tablet 5 mg PO QAM AND QHS RF: 0 hydroxyzine HCl 10 mg tablet 1 tab PO TID PRN (Reason: anxiety) RF: 0 lorazepam [Ativan] 0.5 mg Tablet 0.5 mg PO DAILY RF: 0 escitalopram oxalate 10 mg tablet 10 mg PO QAM RF: 0 Lactobacillus acidophilus 100 mg (1 billion cell) capsule 100 mg PO QAM RF: 0 guaifenesin 100 mg/5 mL liquid 200 mg PO Q4H PRN (Reason: congestion) Qty: 473 RF: 0 diphenhydramine HCl [Benadryl] 25 mg capsule 25 mg PO DAILY PRN (Reason: Anxiety) RF: 0 senna 8.6 mg capsule See Rx Instructions PO BEDTIME PRN (Reason: constipation) 30 Days Qty: 60 RF: 5 tramadol 50 mg tablet 50 mg PO TID PRN (Reason: pain) 15 Days Qty: 45 RF: 0 ibuprofen 600 mg tablet 600 mg PO TID Qty: 30 RF: 0
[2021-01-26] MEDS: clonazePAM 1 MG TABLET PO (00:57)
--- NOTE | 2021-01-26 04:43 | PC.NURSE ---
PT HAS BEEN SLEEPING, WOKE TO ASK FOR COFFEE. PT CALM AND COOPERATIVE.
--- NOTE | 2021-01-26 07:12 | PC.NURSE ---
[facility] CONTACTED ABOUT PLANS FOR TRANSPORTATION TO THE LIVING ROOM, THEY WERE NOT AWARE. LIVING ROOM CONTACTED, SPOKE WITH STAFF. PT IS WELCOME TO COME FOR A FEW HOURS, WHICH HE HAS DONE IN THE PAST. PT HAS BEEN BROUGHT BY STAFF IN [facility] IN THE PAST. PT IS MORE THAN WELCOME, BUT IT IS NOT A SNF SOLUTION. PT TO BE DISCHARGED, RETURN TO [facility].
== END 2021-01-26 07:15 | disposition home or self-care (01) ==
PROVIDERS: Emergency Provider Internal Medicine
DX: F41.9 Anxiety disorder, unspecified (principal); F25.0 Schizoaffective disorder, bipolar type; F17.210 Nicotine dependence, cigarettes, uncomplicated; Z79.899 Other long term (current) drug therapy
CPT/HCPCS: 99283

== ENCOUNTER 2021-02-04 14:21 | Emergency (ER) | payer MEDICARE, MEDICAID, SELFPAY ==
[2021-02-04 14:35] VITALS: BP 126/00; PULSE 99; O2SAT 100
[2021-02-04 15:10] VITALS: BP 151/87; PULSE 94; RESP 16; TEMP 37.1; O2SAT 98; BMI 23.1
--- NOTE | 2021-02-04 15:48 | MHC.CARE ---
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 Stated that patient has been labile the last few days, staying in his room more, sleep is, erratic. Today he was unprovoked, charging at staff, not physically hitting them. Stated patient has been, accusing several staff of stealing and wearing his clothes and also of murdering his brother. Staff would like patient evaluated by Crisis, they feel he is not himself and is unsafe.
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
--- NOTE | 2021-02-04 17:41 | PC.NURSE ---
[facility] checked in said it may be a few hours before they can see patient
--- NOTE | 2021-02-04 17:41 | PC.NURSE ---
[facility] checked in and stated it may be a few hours before patient can be seen
[2021-02-04 18:03] LABS: Glucose Urine UA NEG (NEG); Leukocyte Esterase Urine 1+ (NEG); Nitrite Urine NEG (NEG); UACC Culture Trigger YES; Urine Blood NEG (NEG); Urine Ketones NEG (NEG); Urine Protein NEG (NEG-TRACE)
[2021-02-04 18:16] LABS: Amphetamine Screen Urine Not Detected (Not Detect); Appearance Urine HAZY; Barbiturates, Urine Not Detected (Not Detect); Benzodiazepines Screen Urine Not Detected (Not Detect); Cannabinoid Screen Urine Not Detected (Not Detect); Cocaine Screen Urine Not Detected (Not Detect); Color Urine YELLOW; Fentanyl, urine Not Detected (Not Detect); Opiate Screen Urine Not Detected (Not Detect); Phencyclidine Screen Urine Not Detected (Not Detect)
[2021-02-04 18:32] LABS: Renal Epithelial Cells Urine TRACE /LPF; UACC CULT YES; WBC Clumps Urine NOTED
[2021-02-04 18:52] LABS: COVID-19 Test Negative (Negative); IDNOW Serial# 55D5AD1C
--- NOTE | 2021-02-04 20:52 | MHC.CARE ---
CARE Team met with Pt who is well known to [facility] and [facility] CARE Team to provide support. Pt denies current SI/HI. Pt acknowledges his problematic behaviors earlier from the evening. Pt requesting to go back to [facility]. CARE Team spoke with [facility] staff. Plan for Pt to be discharged home. Ten from Pts [facility] will transport him back.
== END 2021-02-04 21:04 | disposition home or self-care (01) ==
PROVIDERS: Physician Assistant; Emergency Provider Emergency Medicine Emergency Medical Services; PCP Internal Medicine
DX: F20.9 Schizophrenia, unspecified (principal); F31.9 Bipolar disorder, unspecified; F29 Unspecified psychosis not due to a substance or known physiological condition; R45.850 Homicidal ideations; F17.210 Nicotine dependence, cigarettes, uncomplicated; Z20.822 Contact with and (suspected) exposure to COVID-19; Z71.6 Tobacco abuse counseling; Z79.899 Other long term (current) drug therapy
CPT/HCPCS: 36415; 80307; 81001; 87086; 87635; 99283; 99284

== ENCOUNTER 2021-02-06 03:29 | Emergency (ER) | payer MEDICARE, MEDICAID, SELFPAY ==
[2021-02-06 03:36] VITALS: BP 103/67; PULSE 97; RESP 16; TEMP 36.6; O2SAT 95; BMI 24.3
--- NOTE | 2021-02-06 07:04 | ED.ANXIETY ---
HPI - Anxiety General Chief Complaint: Anxiety Stated Complaint: PT was here previously for same reason Time Seen by Provider: 02/06/21 07:03 Source: patient Mode of arrival: ambulatory History of Present Illness HPI narrative: 55-year-old male with complaints of ?not being able to handle it at his current living situation? denies any suicidal or homicidal ideation, but wishes to speak to Behavioral team regarding possible placement in the living room. Otherwise, he denies any fever, chills, cough. Related Data Home Medications Medication Instructions Recorded Confirmed carbamazepine 200 mg tablet 400 mg PO BID 06/21/20 02/04/21 hydroxyzine HCl 10 mg tablet 10 mg PO TID PRN 06/21/20 02/04/21 lorazepam 0.5 mg tablet (Ativan) 0.5 mg PO BEDTIME 06/21/20 02/04/21 lorazepam 1 mg tablet 1 mg PO BID 06/21/20 02/04/21 olanzapine 5 mg tablet 5 mg PO BID 06/21/20 02/04/21 escitalopram oxalate 10 mg tablet 5 mg PO QAM 12/03/20 02/04/21 acetaminophen 500 mg tablet 500 mg PO Q4H PRN 02/04/21 02/04/21 aripiprazole 15 mg tablet 15 mg PO DAILY 02/04/21 02/04/21 atorvastatin 10 mg tablet 10 mg PO BEDTIME 02/04/21 02/04/21 finasteride 5 mg tablet 1 tab PO DAILY 02/04/21 02/04/21 olanzapine 2.5 mg tablet 2.5 mg PO BID 02/04/21 02/04/21 sennosides 8.6 mg capsule (senna) 8.6 mg PO BEDTIME 02/04/21 02/04/21 tamsulosin 0.4 mg capsule 1 cap PO DAILY 02/04/21 02/04/21 Previous Rx's Medication Instructions Recorded multivitamin-iron 9 mg-folic acid 1 tab PO DAILY #30 tab 06/22/20 400 mcg-calcium and minerals tablet (Thera-M) loratadine 10 mg tablet 10 mg PO DAILY PRN 30 Days #30 tab 08/05/20 tramadol 50 mg tablet 50 mg PO TID PRN 15 Days #45 tab 12/03/20 Allergies Allergy/AdvReac Type Severity Reaction Status Date / Time No Known Allergies Allergy Unknown UNKNOWN Verified 02/06/21 03:35 [NO KNOWN ALLERGIES] Review of Systems Review of Systems: Pertinent positives and negatives as stated in HPI 10 point review of systems is otherwise negative. COUNT INCLUDES [facility] Past Medical History Source: nursing notes reviewed Medical History Anxiety Benign prostatic hyperplasia with lower urinary tract symptoms Bipolar 1 disorder Constipation Enlarged prostate Mood disorder Muscle strain of chest wall Pure hypercholesterolemia Right hand pain Right knee injury Schizoaffective disorder, bipolar type Smoker Swelling of right hand Thought disorder Surgical History History of open reduction and internal fixation (ORIF) procedure History of prostate surgery (~05/03/19) Family History Family History Father Lung cancer BPH (benign prostatic hyperplasia) Mother Dementia Brother Myocardial infarction Other Mental health problem Substance abuse Social History Social History Housing Other:: care home Alcohol intake: never Patient Tobacco Use Status: Current everyday Tobacco user Cigarettes Per Day: 10 Advance Directives: No Advance Directives Information Provided: Yes service: No Current occupational status: employed Current occupation: [employer] Physical Exam Vital Signs: Vital Signs: Last Vital Signs Temp 97.9 F 02/06/21 03:36 Pulse 97 02/06/21 03:36 Resp 16 02/06/21 03:36 BP 103/67 02/06/21 03:36 Pulse Ox 95 02/06/21 03:36 Body Mass Index 24.3 VITAL SIGNS: Reviewed. GENERAL: Well developed, well nourished, in no acute distress. HEAD: Normocephalic/atraumatic EYES: PERRLA, EOMI OROPHARYNX: no oral lesions noted, posterior pharynx clear LUNGS: Normal breath sounds. No adventitious sounds or accessory muscle use. SpO2<95> CARDIOVASCULAR: Regular rate and rhythm without noted murmurs ABDOMEN: Soft, non-tender, non-distended with bowel sounds. NEUROLOGIC: Alert and oriented x 4. PSYCH: Mildly anxious Course Course Course Narrative: 55-year-old male who reports anxiety and is unhappy with his current living situation and wishes speak to someone regarding possible placement in the living room. Patient evaluated by the care team and they feel patient is okay to go back to care home and a re-evaluation patient agrees with discharge back to his care home and understands that he can reach out to the team should he need a break. He is otherwise discharged in stable condition without suicida/homicidal ideation. Discharge Plan Discharge Clinical Impression: Feeling stressed out, Anxiety Patient Disposition: Home, Self-Care Instructions: Stress (ED), Anxiety (ED) Additional Instructions: 1. Resume all home medications. Return to the ER for acute worsening of symptoms. Prescriptions: No Action vljqfscj-lvvd-CN-calcium-mins [Thera-M] 9 mg iron-400 mcg tablet 1 tab PO DAILY Qty: 30 RF: 6 loratadine 10 mg tablet 10 mg PO DAILY PRN (Reason: allergy symptoms) 30 Days Qty: 30 RF: 4 olanzapine 2.5 mg Tablet 2.5 mg PO BID RF: 0 tamsulosin 0.4 mg capsule 1 cap PO DAILY RF: 0 finasteride 5 mg tablet 1 tab PO DAILY RF: 0 aripiprazole 15 mg tablet 15 mg PO DAILY RF: 0 atorvastatin 10 mg tablet 10 mg PO BEDTIME RF: 0 acetaminophen 500 mg tablet 500 mg PO Q4H PRN (Reason: Pain) RF: 0 senna 8.6 mg capsule 8.6 mg PO BEDTIME RF: 0 carbamazepine 200 mg tablet 400 mg PO BID RF: 0 lorazepam 1 mg tablet 1 mg PO BID RF: 0 olanzapine 5 mg tablet 5 mg PO BID RF: 0 hydroxyzine HCl 10 mg tablet 10 mg PO TID PRN (Reason: anxiety) RF: 0 lorazepam [Ativan] 0.5 mg Tablet 0.5 mg PO BEDTIME RF: 0 escitalopram oxalate 10 mg tablet 5 mg PO QAM RF: 0 tramadol 50 mg tablet 50 mg PO TID PRN (Reason: pain) 15 Days Qty: 45 RF: 0 Referrals: Physician,Unknown [Primary Care Provider] - 2 days
--- NOTE | 2021-02-06 08:04 | PC.NURSE ---
CARE TEAM AT PTS BEDSIDE FOR ASSESSMENT
--- NOTE | 2021-02-06 08:59 | MHC.CARE ---
2430 - ??Met with pt upon receiving a consult from Dr. Sequeira.? Pt [facility]not being able to handle it? [facility], explaining that staff have ?turned on me?.? He reports them being ?rude? and ?mean?.? He requests that he be transported to the living room for some time away from the [facility].? CARE Team suggests to pt that, moving forward, he contact [facility] directly prior to coming to the ED as he may have better success with being put in touch with the services he seeks.? He denies SI/HI, AVH and reports that he is compliant with his medications as prescribes as well as attending all his scheduled counseling sessions, and appointments.? Pt reports not being in crisis, stating that he is upset with the [facility] staff and ?Needs a break?. Pt will be discharged.? This disposition was discussed with and agreed upon by ED physician Dr. Sequeira and operations liaison psychiatrist Dr. Juancarlos Ramírez.
== END 2021-02-06 10:17 | disposition home or self-care (01) ==
PROVIDERS: Emergency Provider Student in an Organized Health Care Education/Training Program
DX: Z73.3 Stress, not elsewhere classified (principal); F41.9 Anxiety disorder, unspecified; F25.0 Schizoaffective disorder, bipolar type; F17.210 Nicotine dependence, cigarettes, uncomplicated; Z72.89 Other problems related to lifestyle; Z79.899 Other long term (current) drug therapy
CPT/HCPCS: 99283

== ENCOUNTER 2021-02-14 23:29 | Emergency (ER) | payer MEDICARE, MEDICAID, SELFPAY | END 2021-02-15 03:45 | disposition left against medical advice (07) | PROVIDERS: Emergency Provider Emergency Medicine | DX: Z04.9 Encounter for examination and observation for unspecified reason (principal) ==

== ENCOUNTER 2021-02-17 01:57 | Emergency (ER) | payer MEDICARE, MEDICAID, SELFPAY ==
[2021-02-17 02:27] VITALS: BP 105/69; PULSE 87; RESP 14; TEMP 36; O2SAT 96; BMI 22.5
== END 2021-02-17 02:53 | disposition left against medical advice (07) ==
PROVIDERS: Emergency Provider Emergency Medicine; PCP Internal Medicine
DX: F41.1 Generalized anxiety disorder (principal); F43.0 Acute stress reaction
CPT/HCPCS: 99281; 99282

== ENCOUNTER 2021-03-01 01:04 | Emergency (ER) | payer MEDICARE, MEDICAID, SELFPAY ==
[2021-03-01 01:06] VITALS: BP 110/66; PULSE 78; RESP 18; TEMP 36.8; O2SAT 96; BMI 22.5
--- NOTE | 2021-03-01 02:21 | ED_ITS ---
HPI - General Adult General Chief complaint: General Medical Stated complaint: General Time Seen by Provider: 03/01/21 02:21 Source: patient Mode of arrival: ambulatory Limitations: no limitations History of Present Illness HPI narrative: Previous anxiety schizoaffective disorder been here multiple times feels that his place to rule out and getting verbally aggressive with others and wants some help as usual is in the past, sleeping on arrival Related Data Home Medications Medication Instructions Recorded Confirmed hydroxyzine HCl 10 mg tablet 10 mg PO TID PRN 06/21/20 02/10/21 lorazepam 0.5 mg tablet (Ativan) 0.5 mg PO BEDTIME 06/21/20 02/10/21 lorazepam 1 mg tablet 1 mg PO BID 06/21/20 02/10/21 escitalopram oxalate 10 mg tablet 5 mg PO QAM 12/03/20 02/10/21 acetaminophen 500 mg tablet 500 mg PO Q4H PRN 02/04/21 02/10/21 aripiprazole 15 mg tablet 15 mg PO DAILY 02/04/21 02/10/21 atorvastatin 10 mg tablet 10 mg PO BEDTIME 02/04/21 02/10/21 finasteride 5 mg tablet 1 tab PO DAILY 02/04/21 02/10/21 sennosides 8.6 mg capsule (senna) 8.6 mg PO BEDTIME 02/04/21 02/10/21 tamsulosin 0.4 mg capsule 1 cap PO DAILY 02/04/21 02/10/21 carbamazepine 200 mg tablet 500 mg PO BID tab 02/10/21 02/10/21 olanzapine 5 mg tablet 10 mg PO BID tab 02/10/21 02/10/21 Previous Rx's Medication Instructions Recorded loratadine 10 mg tablet 10 mg PO DAILY PRN 30 Days #30 tab 08/05/20 multivitamin-iron 9 mg-folic acid 1 tab PO DAILY #30 tab 02/09/21 400 mcg-calcium and minerals tablet (Thera-M) Allergies Allergy/AdvReac Type Severity Reaction Status Date / Time No Known Allergies Allergy Unknown UNKNOWN Verified 02/10/21 15:21 [NO KNOWN ALLERGIES] Review of Systems Review of Systems: Yes all other systems are reviewed and are negative PMFSH Past Medical History Medical History Anxiety Back pain Benign prostatic hyperplasia with lower urinary tract symptoms Bipolar 1 disorder Constipation Enlarged prostate Mood disorder Muscle strain of chest wall Pure hypercholesterolemia Right hand pain Right knee injury Schizoaffective disorder, bipolar type Screening for prostate cancer Smoker Swelling of right hand Thought disorder Surgical History History of colonoscopy History of open reduction and internal fixation (ORIF) procedure History of prostate surgery (~05/03/19) Family History Family History Father Lung cancer BPH (benign prostatic hyperplasia) Mother Dementia Brother Myocardial infarction Other Mental health problem Substance abuse Social History Social History Housing Other:: snf Alcohol intake: former Patient Tobacco Use Status: Current everyday Tobacco user Cigarettes Per Day: 20 Use of substances other than those prescribed or required for medical reasons: No Advance Directives: No Advance Directives Information Provided: No service: No Current occupational status: employed Current occupation: [employer] Physical Exam Vital Signs: Vital Signs: Last Vital Signs Temp 98.4 F 03/01/21 03:09 Pulse 75 03/01/21 03:09 Resp 18 03/01/21 03:09 BP 118/73 03/01/21 03:09 Pulse Ox 98 03/01/21 03:09 Body Mass Index 22.5 Appearance: Alert. Oriented X3. No acute distress. Anxious ENT: Pharynx normal. Oral Mucosa moist Neck: Normal inspection. Neck supple. CVS: Normal heart rate and rhythm. Pulses normal. Respiratory: No respiratory distress. Equal air entry bilateral, no wheezing/rales/rhonchi Abdomen: Soft and nontender. Skin: Skin warm and dry. Normal skin color. Normal skin turgor. Extremities: No lower extremity edema. No calf tenderness psych: Anxious denies any illicit or delusion denies suicide ideation Neuro: Oriented X 3. No motor deficit. No sensory deficit.No cerebellar signs , cranial nerves II-XII intact Medical Decision Making MDM Narrative Medical decision making narrative: Patient slept well during stay in the ER feels relaxed now would like to go back to his house discharge him home Discharge Plan Discharge Clinical Impression: Anxiety Patient Disposition: Home, Self-Care Instructions: Anxiety (ED) Additional Instructions: Take your medications Follow-up with your therapist Prescriptions: No Action loratadine 10 mg tablet 10 mg PO DAILY PRN (Reason: allergy symptoms) 30 Days Qty: 30 RF: 4 Thera-M 9 mg iron-400 mcg tablet 1 tab PO DAILY Qty: 30 RF: 5 tamsulosin 0.4 mg capsule 1 cap PO DAILY RF: 0 finasteride 5 mg tablet 1 tab PO DAILY RF: 0 aripiprazole 15 mg tablet 15 mg PO DAILY RF: 0 atorvastatin 10 mg tablet 10 mg PO BEDTIME RF: 0 acetaminophen 500 mg tablet 500 mg PO Q4H PRN (Reason: Pain) RF: 0 senna 8.6 mg capsule 8.6 mg PO BEDTIME RF: 0 lorazepam 1 mg tablet 1 mg PO BID RF: 0 hydroxyzine HCl 10 mg tablet 10 mg PO TID PRN (Reason: anxiety) RF: 0 lorazepam [Ativan] 0.5 mg Tablet 0.5 mg PO BEDTIME RF: 0 escitalopram oxalate 10 mg tablet 5 mg PO QAM RF: 0 carbamazepine 200 mg tablet 500 mg PO BID RF: 0 olanzapine 5 mg tablet 10 mg PO BID RF: 0
[2021-03-01 03:09] VITALS: BP 118/73; PULSE 75; RESP 18; TEMP 36.9; O2SAT 98
[2021-03-01 05:48] VITALS: RESP 16
== END 2021-03-01 05:58 | disposition home or self-care (01) ==
PROVIDERS: Emergency Provider Internal Medicine; PCP Internal Medicine
DX: F41.1 Generalized anxiety disorder (principal); F43.0 Acute stress reaction; F25.9 Schizoaffective disorder, unspecified; F17.200 Nicotine dependence, unspecified, uncomplicated; Z71.6 Tobacco abuse counseling; Z79.899 Other long term (current) drug therapy
CPT/HCPCS: 99283; 99284

== ENCOUNTER 2021-03-04 23:47 | Emergency (ER) | payer MEDICARE, MEDICAID, SELFPAY ==
[2021-03-05 00:03] VITALS: BP 105/70; PULSE 87; RESP 18; TEMP 36.1; O2SAT 98; BMI 22.5
--- NOTE | 2021-03-05 01:37 | PC.NURSE ---
PT STATED MAYBE I'LL JUST GO HOME. PT GOT UP AND WALKED OUT OF ER.
--- NOTE | 2021-03-05 01:45 | ED.ANXIETY ---
HPI - Anxiety General Chief Complaint: Anxiety Stated Complaint: anxiety Time Seen by Provider: 03/05/21 01:45 Source: patient Mode of arrival: ambulatory Limitations: no limitations History of Present Illness HPI narrative: Patient with frequent ED visits history of schizoaffective disorder, anxiety comes here all the time as he wants to get out from his residential as too much people bothering him too much noise needs a break was seen here yesterday for same Related Data Home Medications Medication Instructions Recorded Confirmed hydroxyzine HCl 10 mg tablet 10 mg PO TID PRN 06/21/20 02/10/21 lorazepam 0.5 mg tablet (Ativan) 0.5 mg PO BEDTIME 06/21/20 02/10/21 lorazepam 1 mg tablet 1 mg PO BID 06/21/20 02/10/21 escitalopram oxalate 10 mg tablet 5 mg PO QAM 12/03/20 02/10/21 acetaminophen 500 mg tablet 500 mg PO Q4H PRN 02/04/21 02/10/21 aripiprazole 15 mg tablet 15 mg PO DAILY 02/04/21 02/10/21 atorvastatin 10 mg tablet 10 mg PO BEDTIME 02/04/21 02/10/21 finasteride 5 mg tablet 1 tab PO DAILY 02/04/21 02/10/21 sennosides 8.6 mg capsule (senna) 8.6 mg PO BEDTIME 02/04/21 02/10/21 tamsulosin 0.4 mg capsule 1 cap PO DAILY 02/04/21 02/10/21 carbamazepine 200 mg tablet 500 mg PO BID tab 02/10/21 02/10/21 olanzapine 5 mg tablet 10 mg PO BID tab 02/10/21 02/10/21 Previous Rx's Medication Instructions Recorded loratadine 10 mg tablet 10 mg PO DAILY PRN 30 Days #30 tab 08/05/20 multivitamin-iron 9 mg-folic acid 1 tab PO DAILY #30 tab 02/09/21 400 mcg-calcium and minerals tablet (Thera-M) Allergies Allergy/AdvReac Type Severity Reaction Status Date / Time No Known Allergies Allergy Unknown UNKNOWN Verified 02/10/21 15:21 [NO KNOWN ALLERGIES] Review of Systems Review of Systems: Yes all other systems are reviewed and are negative PMFSH Past Medical History Medical History Anxiety Back pain Benign prostatic hyperplasia with lower urinary tract symptoms Bipolar 1 disorder Constipation Enlarged prostate Mood disorder Muscle strain of chest wall Pure hypercholesterolemia Right hand pain Right knee injury Schizoaffective disorder, bipolar type Screening for prostate cancer Smoker Swelling of right hand Thought disorder Surgical History History of colonoscopy History of open reduction and internal fixation (ORIF) procedure History of prostate surgery (~05/03/19) Family History Family History Father Lung cancer BPH (benign prostatic hyperplasia) Mother Dementia Brother Myocardial infarction Other Mental health problem Substance abuse Social History Social History Housing Other:: residential Alcohol intake: former Patient Tobacco Use Status: Current everyday Tobacco user Cigarettes Per Day: 20 Advance Directives: No Advance Directives Information Provided: Yes service: No Current occupational status: employed Current occupation: [employer] Physical Exam Vital Signs: Vital Signs: Last Vital Signs Temp 97.0 F 03/05/21 00:03 Pulse 87 03/05/21 00:03 Resp 18 03/05/21 00:03 BP 105/70 03/05/21 00:03 Pulse Ox 98 03/05/21 00:03 Body Mass Index 22.5 Appearance: Alert. Oriented X3. No acute distress. Anxious Eyes: PERRLA, ENT: Pharynx normal. Oral Mucosa moist Neck: Normal inspection. Neck supple. CVS: Normal heart rate and rhythm. Pulses normal. Respiratory: No respiratory distress. Equal air entry bilateral, no wheezing/rales/rhonchi Abdomen: Soft and nontender. Skin: Skin warm and dry. Normal skin color. Normal skin turgor. Extremities: No lower extremity edema. No calf tenderness Neuro: Oriented X 3. MDM - Anxiety MDM Narrative Medical decision making narrative: Patient has frequent with for same after few hours sting in the ER patient felt better and wanted to go home discharge him home advised to follow-up with his therapist Discharge Plan Discharge Clinical Impression: Acute anxiety Patient Disposition: Elopement Prescriptions: No Action loratadine 10 mg tablet 10 mg PO DAILY PRN (Reason: allergy symptoms) 30 Days Qty: 30 RF: 4 Thera-M 9 mg iron-400 mcg tablet 1 tab PO DAILY Qty: 30 RF: 5 tamsulosin 0.4 mg capsule 1 cap PO DAILY RF: 0 finasteride 5 mg tablet 1 tab PO DAILY RF: 0 aripiprazole 15 mg tablet 15 mg PO DAILY RF: 0 atorvastatin 10 mg tablet 10 mg PO BEDTIME RF: 0 acetaminophen 500 mg tablet 500 mg PO Q4H PRN (Reason: Pain) RF: 0 senna 8.6 mg capsule 8.6 mg PO BEDTIME RF: 0 lorazepam 1 mg tablet 1 mg PO BID RF: 0 hydroxyzine HCl 10 mg tablet 10 mg PO TID PRN (Reason: anxiety) RF: 0 lorazepam [Ativan] 0.5 mg Tablet 0.5 mg PO BEDTIME RF: 0 escitalopram oxalate 10 mg tablet 5 mg PO QAM RF: 0 carbamazepine 200 mg tablet 500 mg PO BID RF: 0 olanzapine 5 mg tablet 10 mg PO BID RF: 0 Interventions: ED Discharge Assessment Last Done: 03/05/21 03:19 Discharge Date/Time: 03/05/21 02:00
== END 2021-03-05 02:00 | disposition left against medical advice (07) ==
PROVIDERS: Emergency Provider Internal Medicine; PCP Internal Medicine
DX: F41.1 Generalized anxiety disorder (principal); F25.9 Schizoaffective disorder, unspecified; F17.210 Nicotine dependence, cigarettes, uncomplicated; Z79.899 Other long term (current) drug therapy; Z71.6 Tobacco abuse counseling
CPT/HCPCS: 99282; 99283

== ENCOUNTER 2021-03-10 02:59 | Emergency (ER) | payer MEDICARE, MEDICAID, SELFPAY ==
[2021-03-10 03:17] VITALS: BP 109/70; PULSE 90; RESP 22; TEMP 36.4; O2SAT 98; BMI 22.8
--- NOTE | 2021-03-10 06:16 | ED.GENADULT ---
HPI - General Adult General Chief complaint: Anxiety Stated complaint: Anxiety Time Seen by Provider: 03/10/21 06:07 Source: patient Mode of arrival: ambulatory Limitations: no limitations History of Present Illness HPI narrative: 55-year-old male who presents emergency department complaining me of an ?I am feeling angry . The patient has a history of schizoaffective disorder. States that he lives in a skilled nursing and he has lived there for at least 8 years. He states that the people at the skilled nursing are not getting along and this is made him frustrated and angry. He states that he does not want to live there anymore. He denies being suicidal or homicidal. He denies being depressed or anxious. He states that he has not been ill in any way, he denied fever, chills, nausea, vomiting, abdominal pain, frequency, urgency or dysuria. Related Data Home Medications Medication Instructions Recorded Confirmed hydroxyzine HCl 10 mg tablet 10 mg PO TID PRN 06/21/20 02/10/21 lorazepam 0.5 mg tablet (Ativan) 0.5 mg PO BEDTIME 06/21/20 02/10/21 lorazepam 1 mg tablet 1 mg PO BID 06/21/20 02/10/21 escitalopram oxalate 10 mg tablet 5 mg PO QAM 12/03/20 02/10/21 acetaminophen 500 mg tablet 500 mg PO Q4H PRN 02/04/21 02/10/21 aripiprazole 15 mg tablet 15 mg PO DAILY 02/04/21 02/10/21 atorvastatin 10 mg tablet 10 mg PO BEDTIME 02/04/21 02/10/21 finasteride 5 mg tablet 1 tab PO DAILY 02/04/21 02/10/21 sennosides 8.6 mg capsule (senna) 8.6 mg PO BEDTIME 02/04/21 02/10/21 tamsulosin 0.4 mg capsule 1 cap PO DAILY 02/04/21 02/10/21 carbamazepine 200 mg tablet 500 mg PO BID tab 02/10/21 02/10/21 olanzapine 5 mg tablet 10 mg PO BID tab 02/10/21 02/10/21 Previous Rx's Medication Instructions Recorded loratadine 10 mg tablet 10 mg PO DAILY PRN 30 Days #30 tab 08/05/20 multivitamin-iron 9 mg-folic acid 1 tab PO DAILY #30 tab 02/09/21 400 mcg-calcium and minerals tablet (Thera-M) Allergies Allergy/AdvReac Type Severity Reaction Status Date / Time No Known Allergies Allergy Unknown UNKNOWN Verified 03/08/21 22:08 [NO KNOWN ALLERGIES] Review of Systems Review of Systems: Yes all other systems are reviewed and are negative [facility] Past Medical History [facility] Narrative: Social history: He he does smoke cigarettes, he denies alcohol and drug use. Medical History Anxiety Back pain Benign prostatic hyperplasia with lower urinary tract symptoms Bipolar 1 disorder Constipation Enlarged prostate Mood disorder Muscle strain of chest wall Pure hypercholesterolemia Right hand pain Right knee injury Schizoaffective disorder, bipolar type Screening for prostate cancer Smoker Swelling of right hand Thought disorder Surgical History History of colonoscopy History of open reduction and internal fixation (ORIF) procedure History of prostate surgery (~05/03/19) Family History Family History Father Lung cancer BPH (benign prostatic hyperplasia) Mother Dementia Brother Myocardial infarction Other Mental health problem Substance abuse Social History Social History Housing Other:: skilled nursing Alcohol intake: former Patient Tobacco Use Status: Current everyday Tobacco user Cigarettes Per Day: 20 Advance Directives: No Advance Directives Information Provided: Yes service: No Current occupational status: employed 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 Physical Exam Vital Signs: Vital Signs: Last Vital Signs Temp 97.5 F 03/10/21 03:17 Pulse 90 03/10/21 03:17 Resp 22 H 03/10/21 03:17 BP 109/70 03/10/21 03:17 Pulse Ox 98 03/10/21 03:17 Body Mass Index 22.8 Const: General: cooperative and no acute distress Orientation/consciousness: oriented to person and oriented to place Limitations: no limitations HENMT: Head: Yes normal to inspection, Yes normocephalic and Yes atraumatic Ears: external ears normal General nose exam: Normal external nose present Face and sinus: Yes normal facial exam Mouth: Normal oral and palatal mucosa present Throat: Yes posterior oropharynx normal Eyes: General: appearance normal, both eyes and all related structures Pupils: Equal, round and reactive pupils present Neck: Neck: Yes normal visual inspection, Yes no lymphadenopathy, Yes trachea midline and Yes supple Chest: Chest palpation & inspection: normal inspection of the chest and normal palpation of entire chest wall Resp: Effort & Inspection: normal respiratory effort and able to speak in complete sentences Auscultation: clear to auscultation bilaterally Cardio: Rate: regular rate Rhythm: regular rhythm Heart sounds: S1 normal heart sound present, S2 normal heart sound present and no murmurs GI: Inspection: Yes normal to inspection Palpation (GI): Soft to palpation, nontender and no guarding Auscultation: normal bowel sounds : General: Yes no CVA tenderness Back/Spine/Pelvis: Back: no CVA tenderness Skin: General skin exam: no rashes or lesions noted Neuro: General: oriented to person and oriented to place Cranial nerves: Yes CN's II-XII intact bilaterally and Yes Equal, round and reactive pupils present Cognition (Neuro): normal cognition Motor exam (neuro): 5/5 motor strength present throughout Extrem: General: Yes normal to inspection Psych: Appearance: grossly normal Speech and movement: Normal speech and movement present Affect: normal affect Attitude: cooperative Thought process: Normal thought process present Thought content: Normal thought content present Course Course Course Narrative: 55-year-old male with history of schizoaffective disorder who lives in a skilled nursing for at least a year's who presents emergency department complaining of feeling angry but is living situation. The patient denies being suicidal or homicidal. He has not been ill in any way prior to his arrival in the emergency department. His vital signs revealed an elevated respiratory rate of 22 otherwise were unremarkable. Physical examination was normal. At this time, I do not think the patient needs any laboratory evaluation or crisis counseling here in the emergency department. The patient will be sent back to his skilled nursing. Discharge Plan Discharge Clinical Impression: Agitation Patient Disposition: Home, Self-Care Additional Instructions: Your examination today was unremarkable. At this time, we are discharging you back to her skilled nursing, you can discuss your anger and frustration with the program director group work. Continue taking medications as prescribed by your providers Follow-up with your doctor in 2 days. Please return to the emergency department if your symptoms get worse or if you develop any symptoms that are concerning to you. Prescriptions: No Action loratadine 10 mg tablet 10 mg PO DAILY PRN (Reason: allergy symptoms) 30 Days Qty: 30 RF: 4 Thera-M 9 mg iron-400 mcg tablet 1 tab PO DAILY Qty: 30 RF: 5 tamsulosin 0.4 mg capsule 1 cap PO DAILY RF: 0 finasteride 5 mg tablet 1 tab PO DAILY RF: 0 aripiprazole 15 mg tablet 15 mg PO DAILY RF: 0 atorvastatin 10 mg tablet 10 mg PO BEDTIME RF: 0 acetaminophen 500 mg tablet 500 mg PO Q4H PRN (Reason: Pain) RF: 0 senna 8.6 mg capsule 8.6 mg PO BEDTIME RF: 0 lorazepam 1 mg tablet 1 mg PO BID RF: 0 hydroxyzine HCl 10 mg tablet 10 mg PO TID PRN (Reason: anxiety) RF: 0 lorazepam [Ativan] 0.5 mg Tablet 0.5 mg PO BEDTIME RF: 0 escitalopram oxalate 10 mg tablet 5 mg PO QAM RF: 0 carbamazepine 200 mg tablet 500 mg PO BID RF: 0 olanzapine 5 mg tablet 10 mg PO BID RF: 0
== END 2021-03-10 06:33 | disposition home or self-care (01) ==
PROVIDERS: Emergency Provider Emergency Medicine Emergency Medical Services; PCP Internal Medicine
DX: R45.1 Restlessness and agitation (principal); F25.9 Schizoaffective disorder, unspecified; Z79.899 Other long term (current) drug therapy
CPT/HCPCS: 99283

== ENCOUNTER 2021-03-29 11:03 | Emergency (ER) | payer MEDICARE, MEDICAID, SELFPAY ==
--- NOTE | ~2021-03-29 | CT_ITS ---
EXAMINATION: CT ABDOMEN AND PELVIS WITH CONTRAST CLINICAL INFORMATION: Mass felt and rectum COMPARISON: Previous CT of the abdomen and pelvis August 2016 TECHNIQUE: Multidetector volumetric images were obtained from the superior aspect of the liver through the pubic symphysis following administration 85 mL of Omnipaque 350 intravenous contrast. Sagittal and coronal reformatted images were obtained on the technologist's workstation. Oral contrast: Yes This CT examination was performed using dose optimization techniques as appropriate, variously including the following: *Automated exposure control *Adjustment of mA and/or kV according to patient size (this includes techniques or standardized protocols for targeted exams where dose is matched to indication/reason for exam; i.e. extremities or head) *Use of iterative reconstruction technique DLP: 476 mGy-cm FINDINGS: LUNG BASES: The visualized lung bases are unremarkable. LIVER, GALLBLADDER, AND BILIARY TREE: The liver is normal in size, shape, and attenuation. No focal hepatic lesion or biliary ductal dilatation is present. The gallbladder is unremarkable with no evidence of radiopaque gallstones, gallbladder wall thickening, or obvious pericholecystic inflammatory changes. PANCREAS: There is a small calcification seen in the head of the pancreas. The pancreas is otherwise unremarkable. SPLEEN: Unremarkable. ADRENAL GLANDS: Unremarkable. KIDNEYS AND URETERS: There are several small 3 to 4 mm low-attenuation lesions in both kidneys, in the lower pole the right kidney and in the upper and lower pole the left kidney. These are difficult to characterize but probably represent small cysts. The kidneys are otherwise unremarkable. No imaging follow-up is indicated. BLADDER: Bladder wall is diffusely thickened. The prostate gland is enlarged and protrudes into the base of the bladder. There is a probable TURP defect. GASTROINTESTINAL TRACT: There is a 1.3 x 3.2 x 4 cm in transverse AP and longitudinal dimension thick-walled fluid collection adjacent to the low right posterior rectum in the 7:00 o'clock axis suggestive of a low perirectal or perianal abscess.. There is adjacent stranding of the fat and thickening of the skin of the right buttock. There may be mild wall thickening of the rectum. A discrete rectal mass is not appreciated. There is stool throughout the colon suggestive of constipation. Small and large bowel is otherwise unremarkable. The appendix is unremarkable. There is apparent wall thickening of the proximal stomach. This may be artifactual due to underdistention. ABDOMINAL WALL: No significant hernia is appreciated. LYMPH NODES: There is shotty retroperitoneal lymphadenopathy in the abdomen and pelvis and bilateral inguinal lymphadenopathy. No enlarged lymph nodes are seen. There is no ascites. VASCULAR: Unremarkable. PELVIC VISCERA: The prostate gland is enlarged and protrudes into the base of the bladder. Prostate gland measures 4.6 x 5.5 cm in AP and transverse dimension. There is a probable TURP defect. There are calcifications in the central prostate gland. OSSEOUS STRUCTURES: There are degenerative changes of the spine. CT/CT abdomen pelvis w con IMPRESSION: 1.3 x 3.2 x 4 cm low right perirectal or perianal abscess in the 7:00 o'clock axis. Constipation. Enlarged prostate gland that protrudes into the base of the bladder and probable post TURP defect. Diffuse bladder wall thickening.
--- NOTE | 2021-03-29 11:13 | ED_ITS ---
HPI - Skin/Abscess/Foreign Bdy General Chief complaint: Skin/Abscess/Foreign Body Stated complaint: pain in buttocks Time Seen by Provider: 03/29/21 11:13 Source: patient and EMS Mode of arrival: ambulatory Limitations: no limitations History of Present Illness HPI narrative: Pain between buttocks worsening over the past three days. No fevers, chills, SOB, CP, changes in bowel habits. MD complaint: lesion (rectal mass/lump felt) Onset (ago): day(s) (3) Tetanus up to date: yes Location: buttocks Severity: mild Quality: aching Pain Consistency: intermittent Relieving factors: none Exacerbating factors: none Context: none (denies any prior issues or episodes does not have a hx of IBD) Associated symptoms: denies other symptoms Treatments prior to arrival: none Related Data Home Medications Medication Instructions Recorded Confirmed hydroxyzine HCl 10 mg tablet 10 mg PO TID PRN 06/21/20 02/10/21 lorazepam 0.5 mg tablet (Ativan) 0.5 mg PO BEDTIME 06/21/20 02/10/21 lorazepam 1 mg tablet 1 mg PO BID 06/21/20 02/10/21 escitalopram oxalate 10 mg tablet 5 mg PO QAM 12/03/20 02/10/21 acetaminophen 500 mg tablet 500 mg PO Q4H PRN 02/04/21 02/10/21 aripiprazole 15 mg tablet 15 mg PO DAILY 02/04/21 02/10/21 finasteride 5 mg tablet 1 tab PO DAILY 02/04/21 02/10/21 sennosides 8.6 mg capsule (senna) 8.6 mg PO BEDTIME 02/04/21 02/10/21 tamsulosin 0.4 mg capsule 1 cap PO DAILY 02/04/21 02/10/21 carbamazepine 200 mg tablet 500 mg PO BID tab 02/10/21 02/10/21 olanzapine 5 mg tablet 10 mg PO BID tab 02/10/21 02/10/21 Previous Rx's Medication Instructions Recorded loratadine 10 mg tablet 10 mg PO DAILY PRN 30 Days #30 tab 08/05/20 multivitamin-iron 9 mg-folic acid 1 tab PO DAILY #30 tab 02/09/21 400 mcg-calcium and minerals tablet (Thera-M) atorvastatin 10 mg tablet 10 mg PO DAILY #30 tab 03/17/21 Allergies Allergy/AdvReac Type Severity Reaction Status Date / Time No Known Allergies Allergy Unknown UNKNOWN Verified 03/08/21 22:08 [NO KNOWN ALLERGIES] Review of Systems Review of Systems: Constitutional : No Fever, No Chills ENT/Mouth : No sore throat, No Rhinorrhea Eyes: No Eye Pain, No Swelling, No Redness Cardiovascular : No Chest Pain, No SOB Respiratory : No Cough, No Sputum Gastrointestinal : No Nausea, No Vomiting, No Diarrhea, No abdominal Pain Genitourinary : No Dysuria, No Hematuria Musculoskeletal : No joint pain, No Myalgias, No Joint Swelling Skin : No Skin Lesions, positive skin lesion GI: bump noted in rectal area Neuro : No Weakness, No Numbness, No Headache Psych : No Anxiety, No Depression Heme/Lymph: No Bruising, No Bleeding,No Lymphadenopathy Endocrine : No Polyuria, No Polydipsia All other systems reviewed and are negative [facility] Past Medical History Attestation statement: The following information was validated with the patient. Medical History Anxiety Back pain Benign prostatic hyperplasia with lower urinary tract symptoms Bipolar 1 disorder Constipation Enlarged prostate Mood disorder Muscle strain of chest wall Pure hypercholesterolemia Right hand pain Right knee injury Schizoaffective disorder, bipolar type Screening for prostate cancer Smoker Swelling of right hand Thought disorder Surgical History History of colonoscopy History of open reduction and internal fixation (ORIF) procedure History of prostate surgery (~05/03/19) Family History Family History Father Lung cancer BPH (benign prostatic hyperplasia) Mother Dementia Brother Myocardial infarction Other Mental health problem Substance abuse Social History Social History Housing Other:: custodial Alcohol intake: former Patient Tobacco Use Status: Current everyday Tobacco user Cigarettes Per Day: 20 Advance Directives: Yes Advance Directives Information Provided: Yes Advance Directives on File: No service: No Current occupational status: employed 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 Oriented X3. No acute distress. Eyes: Pupils equal, round and reactive to light. ENT: Pharynx normal. Neck: Normal inspection. Neck supple. CVS: Normal heart rate and rhythm. Pulses normal. Respiratory: No respiratory distress. Breath sounds normal. Abdomen: Soft and nontender. Rectal: no pilonidal cyst noted, no fluctuance felt but he does have noted fistula / opening ove the rectum but I do not appreciate fullness or drainage Skin: Skin warm and dry. Normal skin color. Normal skin turgor. Extremities: No lower extremity edema. No calf ttp Neuro: Oriented X 3. No motor deficit. No sensory deficit. Course Course Course Narrative: 320pm no WBC count no fevers at home but abscess noted on CT scan infection suspected at this time 320pm will add lactic cultures and empiric antibiotics Reevaluation(s) Reevaluation #1: Patient still complaining of pain, between his buttocks. CT shows a lower right perirectal or perianal abscess in the 07:00 o'clock position. In constipation. He also shows an enlarged prostate gland. Vital signs stable, there is no leukocytosis, patient is afebrile. Will discuss this case with surgery, Dr. Lopez. Dr. Lopez will evaluate the patient at the bedside later. 420pm patient aware we were going to have surgery see the patient - the patient might have eloped from the ED Time: 15:22 MDM - Skin/Abscess/Foreign Bdy MDM Narrative Medical decision making narrative: 55 yo male with hx of constipation, BPH, recurrent UTIs, self caths, mental health issues comes in with c/o 3 days of rectal pain and feels a lump/mass. 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 Dispo per results and findings. Lab Data Attestation: I reviewed the patient's lab results. Result diagrams: 03/29/21 11:36 03/29/21 11:36 Labs: Lab Results 10/25/21 10/25/21 Range/Units 11:36 11:36 WBC 8.6 (4.8-10.8) X10*3/uL RBC 4.47 L (4.60-5.80) X10*6/uL Hgb 14.3 (14.0-18.0) g/dl Hct 40.9 L (42-52) % MCV 91.5 (80-98) fL MCH 32.0 (27.0-33.0) pg MCHC 35.0 (31.0-36.0) g/dl RDW 13.6 (11.0-16.0) % Plt Count 205 (160-400) X10*3/uL MPV 8.6 L (9.4-12.4) fL Immature Gran % (Auto) 0.3 (0.0-0.4) % Neut % (Auto) 69.3 (45-73) % Lymph % (Auto) 15.5 L (20-40) % Crockett % (Auto) 12.5 H (2-11) % Eos % (Auto) 1.7 (0-4) % Baso % (Auto) 0.7 (0-2) % Lymph # (Auto) 1.3 (1.2-4.9) X10*3/uL Crockett # (Auto) 1.1 (0.1-1.2) X10*3/uL Eos # (Auto) 0.2 (0.0-0.4) X10*3/uL Baso # (Auto) 0.1 (0.0-0.2) X10*3/uL Abs Immat Gran (auto) 0.03 (0.00-0.03) X10*3/uL Absolute Neuts (auto) 6.0 (2.0-8.3) X10*3/uL Absolute Nucleated RBC 0.000 (0.0-0.012) X10*3/uL Nucleated RBC % (auto) 0.0 (0.0-0.2) /100WBC Sodium 135 (135-145) mmol/L Potassium 4.1 (3.3-5.1) mmol/L Chloride 101 (96-108) mmol/L Carbon Dioxide 27 (22-29) mmol/L Anion Gap 11 L (12-20) BUN 12 (9-16) mg/dL Creatinine 0.73 (0.5-1.4) mg/dL Estim Creat Clear Calc 114.3 Estimated GFR > 60 Random Glucose 103 (60-115) mg/dL Calcium 9.0 (8.4-10.2) mg/dL Imaging Data CT scan - pelvis: Attestation: I personally reviewed and interpreted this imaging study as follows: Radiologist's impression: CT/CT abdomen pelvis w con IMPRESSION: 1.3 x 3.2 x 4 cm low right perirectal or perianal abscess in the 7:00 o'clock axis. Constipation. ? Enlarged prostate gland that protrudes into the base of the bladder and probable post TURP defect. Diffuse bladder wall thickening. Discharge Plan Discharge Clinical Impression: Anal fissure and fistula, Abscess, perianal Patient Disposition: Elopement Additional Instructions: Follow-up with her primary care provider Return to the emergency department with new or worsening symptoms Prescriptions: No Action loratadine 10 mg tablet 10 mg PO DAILY PRN (Reason: allergy symptoms) 30 Days Qty: 30 RF: 4 Thera-M 9 mg iron-400 mcg tablet 1 tab PO DAILY Qty: 30 RF: 5 atorvastatin 10 mg tablet 10 mg PO DAILY Qty: 30 RF: 2 tamsulosin 0.4 mg capsule 1 cap PO DAILY RF: 0 finasteride 5 mg tablet 1 tab PO DAILY RF: 0 aripiprazole 15 mg tablet 15 mg PO DAILY RF: 0 acetaminophen 500 mg tablet 500 mg PO Q4H PRN (Reason: Pain) RF: 0 senna 8.6 mg capsule 8.6 mg PO BEDTIME RF: 0 lorazepam 1 mg tablet 1 mg PO BID RF: 0 hydroxyzine HCl 10 mg tablet 10 mg PO TID PRN (Reason: anxiety) RF: 0 lorazepam [Ativan] 0.5 mg Tablet 0.5 mg PO BEDTIME RF: 0 escitalopram oxalate 10 mg tablet 5 mg PO QAM RF: 0 carbamazepine 200 mg tablet 500 mg PO BID RF: 0 olanzapine 5 mg tablet 10 mg PO BID RF: 0 Referrals: Dk Rodriguez MD [Primary Care Provider] - 2 days
[2021-03-29 11:16] VITALS: BP 116/90; BP 131/78; PULSE 56; PULSE 88; RESP 16; TEMP 36.7; O2SAT 96; O2SAT 98; BMI 23.0
[2021-03-29 11:48] LABS: MANUAL DIFF FLAG NO
[2021-03-29 11:50] LABS: Basophils Absolute Auto 0.1 X10*3/uL (0.0-0.2); Basophils Percent Auto 0.7 % (0-2); Eosinophils Absolute Auto 0.2 X10*3/uL (0.0-0.4); Eosinophils Percent Auto 1.7 % (0-4); Hematocrit 40.9 % (42-52); Hemoglobin 14.3 g/dl (14.0-18.0); Imm Gran Abs Auto 0.03 X10*3/uL (0.00-0.03); Imm Gran Pct Auto 0.3 % (0.0-0.4); Lymphocytes Absolute Auto 1.3 X10*3/uL (1.2-4.9); Lymphocytes Percent Auto 15.5 % (20-40); Mean Corpuscular Volume 91.5 fL (80-98); Mean Platelet Volume 8.6 fL (9.4-12.4); Monocytes Absolute Auto 1.1 X10*3/uL (0.1-1.2); Monocytes Percent Auto 12.5 % (2-11); Neutrophils Percent Auto 69.3 % (45-73); Platelet Count 205 X10*3/uL (160-400); Red Blood Count 4.47 X10*6/uL (4.60-5.80); Red Cell Distribution Width 13.6 % (11.0-16.0); White Blood Count 8.6 X10*3/uL (4.8-10.8)
[2021-03-29 12:06] LABS: Anion Gap 11 (12-20); Blood Urea Nitrogen 12 mg/dL (9-16); Carbon Dioxide 27 mmol/L (22-29); Chloride 101 mmol/L (96-108); Creatinine Clr Calc Pharmacy 114.3; Estimated Glomerular Filt Rate > 60; Glucose Random 103 mg/dL (60-115); Potassium 4.1 mmol/L (3.3-5.1); Sodium 135 mmol/L (135-145)
[2021-03-29] MEDS: iohexoL 350 MG/ML 100 ML INFUS..BTL IV (13:45)
--- NOTE | 2021-03-29 16:35 | PC.NURSE ---
Unable to find pt, ?elopement, attempting to reach pt/alf
== END 2021-03-29 17:05 | disposition left against medical advice (07) ==
PROVIDERS: Emergency Provider Emergency Medicine; PCP Internal Medicine
DX: K60.3 Anal fistula (principal); K61.0 Anal abscess
CPT/HCPCS: 36415; 74177; 80048; 85025; 96365; 99283; 99284; Q9967

== ENCOUNTER 2021-03-30 09:28 | Emergency (ER) | payer MEDICARE, MEDICAID, SELFPAY ==
[2021-03-30 10:26] VITALS: BP 110/68; PULSE 82; RESP 16; TEMP 37; O2SAT 95; BMI 23.1
--- NOTE | 2021-03-30 11:09 | ED.GENADULT ---
HPI - General Adult General Chief complaint: General Medical Stated complaint: multiple complaints Time Seen by Provider: 03/30/21 10:54 Source: patient Mode of arrival: ambulatory Limitations: no limitations History of Present Illness HPI narrative: 55-year-old male who presents emergency department for evaluation right-sided perirectal pain x3 days. The patient was seen in the emergency department yesterday and had a complete workup and was found to have a perirectal abscess at the 7:00 a.m. position, CT scan was otherwise unremarkable. Laboratory evaluation was normal. The patient lives in a prison he states that he has as could wait any longer and had delete yesterday. The prison was contacted and informed of the CT scan resulted the patient was brought back to the emergency department for evaluation. He states that he has a constant pain in his perirectal area on the right side, states the pain is a dull pain which is worse if he sits on his butt. He denied fever, chills, fatigue, shortness of breath, nausea, vomiting or weakness. Related Data Home Medications Medication Instructions Recorded Confirmed hydroxyzine HCl 10 mg tablet 10 mg PO TID PRN 06/21/20 02/10/21 lorazepam 0.5 mg tablet (Ativan) 0.5 mg PO BEDTIME 06/21/20 02/10/21 lorazepam 1 mg tablet 1 mg PO BID 06/21/20 02/10/21 escitalopram oxalate 10 mg tablet 5 mg PO QAM 12/03/20 02/10/21 acetaminophen 500 mg tablet 500 mg PO Q4H PRN 02/04/21 02/10/21 aripiprazole 15 mg tablet 15 mg PO DAILY 02/04/21 02/10/21 finasteride 5 mg tablet 1 tab PO DAILY 02/04/21 02/10/21 sennosides 8.6 mg capsule (senna) 8.6 mg PO BEDTIME 02/04/21 02/10/21 tamsulosin 0.4 mg capsule 1 cap PO DAILY 02/04/21 02/10/21 carbamazepine 200 mg tablet 500 mg PO BID tab 02/10/21 02/10/21 olanzapine 5 mg tablet 10 mg PO BID tab 02/10/21 02/10/21 Previous Rx's Medication Instructions Recorded loratadine 10 mg tablet 10 mg PO DAILY PRN 30 Days #30 tab 08/05/20 multivitamin-iron 9 mg-folic acid 1 tab PO DAILY #30 tab 02/09/21 400 mcg-calcium and minerals tablet (Thera-M) atorvastatin 10 mg tablet 10 mg PO DAILY #30 tab 03/17/21 cephalexin 500 mg capsule 500 mg PO QID 7 Days #28 cap 03/30/21 ibuprofen 600 mg tablet 600 mg PO Q6H PRN #30 tab 03/30/21 Allergies Allergy/AdvReac Type Severity Reaction Status Date / Time No Known Allergies Allergy Unknown UNKNOWN Verified 03/08/21 22:08 [NO KNOWN ALLERGIES] Review of Systems Review of Systems: Yes all other systems are reviewed and are negative [facility] Past Medical History [facility] Narrative: Social history: The patient does smoke 1 pack of cigarettes per day times many years. He denies alcohol and drug use. Medical History Anxiety Back pain Benign prostatic hyperplasia with lower urinary tract symptoms Bipolar 1 disorder Constipation Enlarged prostate Mood disorder Muscle strain of chest wall Pure hypercholesterolemia Right hand pain Right knee injury Schizoaffective disorder, bipolar type Screening for prostate cancer Smoker Swelling of right hand Thought disorder Surgical History History of colonoscopy History of open reduction and internal fixation (ORIF) procedure History of prostate surgery (~05/03/19) Family History Family History Father Lung cancer BPH (benign prostatic hyperplasia) Mother Dementia Brother Myocardial infarction Other Mental health problem Substance abuse Social History Social History Housing Other:: prison Alcohol intake: unknown Patient Tobacco Use Status: Current everyday Tobacco user Cigarettes Per Day: 20 Use of substances other than those prescribed or required for medical reasons: No Advance Directives: No service: No Current occupational status: employed Current occupation: [employer] Physical Exam Vital Signs: Vital Signs: Last Vital Signs Temp 98.6 F 03/30/21 10:26 Pulse 82 03/30/21 10:26 Resp 16 03/30/21 10:26 BP 110/68 03/30/21 10:26 Pulse Ox 95 03/30/21 10:26 Body Mass Index 23.1 Const: General: cooperative and no acute distress Orientation/consciousness: oriented to person and oriented to place Limitations: no limitations HENMT: Head: Yes normal to inspection, Yes normocephalic and Yes atraumatic Ears: external ears normal General nose exam: Normal external nose present Face and sinus: Yes normal facial exam Mouth: Normal oral and palatal mucosa present Throat: Yes posterior oropharynx normal Eyes: General: appearance normal, both eyes and all related structures Pupils: Equal, round and reactive pupils present Neck: Neck: Yes normal visual inspection, Yes no lymphadenopathy, Yes trachea midline and Yes supple Chest: Chest palpation & inspection: normal inspection of the chest and normal palpation of entire chest wall Resp: Effort & Inspection: normal respiratory effort and able to speak in complete sentences Auscultation: clear to auscultation bilaterally Cardio: Rate: regular rate Rhythm: regular rhythm Heart sounds: S1 normal heart sound present, S2 normal heart sound present and no murmurs GI: Inspection: Yes normal to inspection Palpation (GI): Soft to palpation, nontender and no guarding Auscultation: normal bowel sounds Rectal Exam - Male: Yes mass (2 x 3 cm romeo rectal abscess right, draining purulent material) : General: Yes no CVA tenderness Back/Spine/Pelvis: Back: no CVA tenderness Skin: General skin exam: no rashes or lesions noted Neuro: General: oriented to person and oriented to place Cranial nerves: Yes CN's II-XII intact bilaterally and Yes Equal, round and reactive pupils present Cognition (Neuro): normal cognition Motor exam (neuro): 5/5 motor strength present throughout Extrem: General: Yes normal to inspection Psych: Appearance: grossly normal Speech and movement: Normal speech and movement present Affect: normal affect Attitude: cooperative Thought process: Normal thought process present Thought content: Normal thought content present Course Course Course Narrative: 55-year-old male who presents emergency department for evaluation of painful right-sided perirectal abscess x3 days. Patient was seen yesterday and had a complete workup which revealed normal blood work and a CT scan revealed a perirectal abscess at the 7:00 a.m. area. There was no fistulas seen on the CT scan. Physical examination does confirm this finding as well. I discussed incision and drainage procedure with the patient and he consented verbally. The abscess was incised approximately 30-45 cc of purulent material under pressure, drained from the abscess. Patient was packed with quarter-inch gauze packing. Patient was given Keflex 500 mg orally and ibuprofen 600 mg orally. The patient will be started on Keflex 500 mg 4 times a day for 7 days. After I incised the abscess, another provider that was involved in the patient's care yesterday, informed me that the patient was seen yesterday by our surgeon, Dr. Lopez and there was consideration of taking the patient to the operating room to incise this abscess. I will contact Dr. Lopez is to discuss further management. Procedures Abscess I/D Site: romeo-rectal (Right-sided at 7:00 o clock) Side (if applicable): right Local Anesthetic: lidocaine 1% Amount of anesthesia used (mL): 10 Amount of fluid expressed (mL): 40 Sent for culture/gram staining?: Yes Irrigation: No Packing used?: plain (1/4 inch) Discharge Plan Discharge Clinical Impression: Romeo-rectal abscess, Encounter for incision and drainage procedure Patient Disposition: Home, Self-Care Instructions: Abscess (ED), Abscess Incision and Drainage (DC) Additional Instructions: You had an abscess around your rectum (collection of pus). The abscess was incised, drained and packed in the emergency department (I cut open the abscess and drained approximately 40 cc of pus and I put in a string gauze packing into the wound to keep it open). If the packing falls out, it does NOT need to be put back in. It is okay for you to take a shower. You should put a piece of gauze over the draining abscess and then an Ob pad over this and where the net underwear to keep the gauze in place. You received Keflex 500 mg orally. This is antibiotics. I want you to take Keflex (cephalexin) 500 mg pills, 1 pill 4 times a day for 7 days. You also received Motrin (ibuprofen) 600 mg orally. This is a pain medication. I want you to take Motrin (ibuprofen) 600 mg 3 times a day as needed for pain. Yesterday you were seen by our surgeon Dr. Lopez, please call his office today to schedule follow-up appointment for Monday to have the packing removed and for re-evaluation. Follow-up with Dr. Lopez in 3 days. Please return to the emergency department if your symptoms get worse or if you develop any symptoms that are concerning to you. Prescriptions: New cephalexin 500 mg capsule 500 mg PO QID 7 Days Qty: 28 RF: 0 ibuprofen 600 mg tablet 600 mg PO Q6H PRN (Reason: pain) Qty: 30 RF: 0 No Action loratadine 10 mg tablet 10 mg PO DAILY PRN (Reason: allergy symptoms) 30 Days Qty: 30 RF: 4 Thera-M 9 mg iron-400 mcg tablet 1 tab PO DAILY Qty: 30 RF: 5 atorvastatin 10 mg tablet 10 mg PO DAILY Qty: 30 RF: 2 tamsulosin 0.4 mg capsule 1 cap PO DAILY RF: 0 finasteride 5 mg tablet 1 tab PO DAILY RF: 0 aripiprazole 15 mg tablet 15 mg PO DAILY RF: 0 acetaminophen 500 mg tablet 500 mg PO Q4H PRN (Reason: Pain) RF: 0 senna 8.6 mg capsule 8.6 mg PO BEDTIME RF: 0 lorazepam 1 mg tablet 1 mg PO BID RF: 0 hydroxyzine HCl 10 mg tablet 10 mg PO TID PRN (Reason: anxiety) RF: 0 lorazepam [Ativan] 0.5 mg Tablet 0.5 mg PO BEDTIME RF: 0 escitalopram oxalate 10 mg tablet 5 mg PO QAM RF: 0 carbamazepine 200 mg tablet 500 mg PO BID RF: 0 olanzapine 5 mg tablet 10 mg PO BID RF: 0 Referrals: Sarbjit Lopez MD [Physician] - 3 days
[2021-03-30] MEDS: Ibuprofen 600 MG TABLET PO (11:51)
[2021-03-30] MEDS: cephALEXin 500 MG CAPSULE PO (11:51)
[2021-03-30] MEDS: Lidocaine HCl 1 % MPF 5 ML VIAL INFILTRATI ×2 (11:53)
== END 2021-03-30 12:14 | disposition home or self-care (01) ==
PROVIDERS: Emergency Provider Emergency Medicine Emergency Medical Services; PCP Internal Medicine
DX: K61.1 Rectal abscess (principal); Z87.891 Personal history of nicotine dependence
CPT/HCPCS: 46040; 87071; 87147; 87205; 99284

== ENCOUNTER 2021-04-08 14:24 | Inpatient (IN) | payer MEDICARE, MEDICAID, SELFPAY ==
[2021-04-08 14:38] VITALS: BP 140/91; PULSE 78; RESP 18; TEMP 36.4; O2SAT 98; BMI 21.4
--- NOTE | 2021-04-08 15:19 | PC.NURSE ---
SPOKE WITH STAFF FROM [facility]-- THEY REPORT PT HAD INCREASED BEHAVIORAL OUTBURST WITH AGGRESSIVE BEHAVIORS TOWARD STAFF AND OTHER RESIDENTS. HE WAS SPITTING, KICKING BOXES AND THREATENING TO BURN THE HOUSE. THEY FEEL HE REQUIRES A N EVALUATION
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
[2021-04-08] MEDS: LORazepam 1 MG TABLET 2 MG PO (21:12)
[2021-04-08] MEDS: HaloperidoL 5 MG TABLET 10 MG PO (21:12)
--- NOTE | 2021-04-08 21:25 | PHA.MEDREC ---
Pharmacy Consult ? Medication Reconciliation Pharmacy has completed the medication reconciliation. Patient came with a medication list from the residential. Nilsa DamonD
[2021-04-08] MEDS: carBAMazepine 200 MG TABLET 500 MG PO (22:31)
[2021-04-08] MEDS: LORazepam 0.5 MG TABLET PO (22:31)
[2021-04-08 22:37] VITALS: BP 143/84; PULSE 64; RESP 16; O2SAT 97
--- NOTE | 2021-04-09 | ECG_ITS ---
Test Reason : MED CLEARANCE Blood Pressure : / mmHG Vent. Rate : 072 BPM Atrial Rate : 072 BPM P-R Int : 144 ms QRS Dur : 098 ms QT Int : 378 ms P-R-T Axes : 073 029 035 degrees QTc Int : 413 ms Normal sinus rhythm Possible Left atrial enlargement RSR' or QR pattern in V1 suggests right ventricular conduction delay Minimal voltage criteria for LVH, may be normal variant ( [place] product ) Abnormal ECG When compared with ECG of 23-AUG-2018 14:49, No significant change was found Referred By: Zack Lomeli Electronically Signed By:LILIAN CALDERA MD
[2021-04-09 04:00] VITALS: RESP 15
[2021-04-09 05:55] VITALS: BP 128/84; PULSE 64; RESP 14; O2SAT 97
--- NOTE | 2021-04-09 06:56 | PC.NURSE ---
report taken from [facility] pt resting in stretcher, appears to be sleeping, rr even/unlabored.
--- NOTE | 2021-04-09 09:00 | PC.NURSE ---
RECEIVED PT FROM MAIN ED.
[2021-04-09] MEDS: Atorvastatin Calcium 10 MG TABLET PO (09:35)
[2021-04-09] MEDS: carBAMazepine 200 MG TABLET 500 MG PO ×2 (09:35→19:13)
[2021-04-09] MEDS: ARIPiprazole 15 MG TABLET PO (09:35)
[2021-04-09] MEDS: LORazepam 1 MG TABLET PO ×2 (09:36→19:14)
[2021-04-09] MEDS: Multivitamin TABLET 1 TAB PO (09:36)
[2021-04-09] MEDS: OLANZapine 10 MG TABLET PO (09:36)
--- NOTE | 2021-04-09 14:17 | PC.NURSE ---
NURSE TO NURSE GIVEN TO M5. EKG DONE
[2021-04-09 14:32] VITALS: BP 113/74; PULSE 76; RESP 18; O2SAT 97
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
--- NOTE | 2021-04-09 18:33 | P.HPPS_ITS ---
HPI Chief Complaint: Schizoaffective disorder-Bipolar type [facility] Medical History Anxiety Back pain Benign prostatic hyperplasia with lower urinary tract symptoms Bipolar 1 disorder Constipation Enlarged prostate Mood disorder Muscle strain of chest wall Pure hypercholesterolemia Right hand pain Right knee injury Schizoaffective disorder, bipolar type Screening for prostate cancer Smoker Swelling of right hand Thought disorder Surgical History History of colonoscopy History of open reduction and internal fixation (ORIF) procedure History of prostate surgery (~05/03/19) Diagnostics Vital Signs (24Hr): Vital Signs - 24 hr 04/08/21 22:37 04/09/21 04:00 04/09/21 05:55 Pulse Rate 64 64 Respiratory Rate 16 15 14 Blood Pressure 143/84 H 128/84 Pulse Oximetry 97 97 04/09/21 14:32 Pulse Rate 76 Respiratory Rate 18 Blood Pressure 113/74 Pulse Oximetry 97 Body Mass Index 21.4 Meds/Allergies Meds Home Medications Acetaminophen (Acetaminophen 325 Mg Tablet) 325 mg PO Q4H PRN PRN Reason: Pain Al Hydroxide/Mg Hydroxide (Magnesium Hydrox/Alum Hydrox 30 Ml Oral.Susp) 30 ml PO Q6H PRN PRN Reason: Heartburn/Nausea Aripiprazole (Aripiprazole 15 Mg Tablet) 15 mg PO DAILY [facility] Last Admin: 04/09/21 09:35 Dose: 15 mg Documented by: Atorvastatin Calcium (Atorvastatin Calcium 10 Mg Tablet) 10 mg PO DAILY [facility] Last Admin: 04/09/21 09:35 Dose: 10 mg Documented by: Carbamazepine (Carbamazepine 200 Mg Tablet) 500 mg PO BID [facility] Last Admin: 04/09/21 09:35 Dose: 500 mg Documented by: Haloperidol (Haloperidol 5 Mg Tablet) 5 mg PO BID PRN PRN Reason: psychosis, agitation Hydroxyzine HCl (Hydroxyzine Hcl 10 Mg Tablet) 10 mg PO TID PRN PRN Reason: anxiety Loratadine (Loratadine 10 Mg Tablet) 10 mg PO DAILY PRN PRN Reason: allergy symptoms Lorazepam (Lorazepam 0.5 Mg Tablet) 0.5 mg PO BEDTIME [facility] Last Admin: 04/08/21 22:31 Dose: 0.5 mg Documented by: Lorazepam (Lorazepam 1 Mg Tablet) 1 mg PO BID [facility] Last Admin: 04/09/21 09:36 Dose: 1 mg Documented by: Lorazepam (Lorazepam 1 Mg Tablet) 1 mg PO BID PRN PRN Reason: agitation Magnesium Hydroxide (Milk Of Magnesia 30 Ml Oral.Susp) 30 ml PO DAILY PRN PRN Reason: Constipation Multivitamins/Vitamin C (Multivitamin Tablet) 1 tab PO DAILY [facility] Last Admin: 04/09/21 09:36 Dose: 1 tab Documented by: Olanzapine (Olanzapine 10 Mg Tablet) 10 mg PO BID [facility] Last Admin: 04/09/21 09:36 Dose: 10 mg Documented by: Pharmacy Consult (Consult Rx Perform Med Rec) 1 each MISCELLANE ONCE PRN PRN Reason: Consult order Senna (Sennosides 8.6 Mg Tablet) 8.6 mg PO BEDTIME [facility] Tramadol HCl (Tramadol Hcl 50 Mg Tablet) 50 mg PO DAILY PRN PRN Reason: Pain Trazodone HCl (Trazodone Hcl 50 Mg Tablet) 50 mg PO BEDTIME PRN PRN Reason: Insomnia Allergies Allergies Allergy/AdvReac Type Severity Reaction Status Date / Time No Known Allergies Allergy Unknown UNKNOWN Verified 04/08/21 14:35 [NO KNOWN ALLERGIES]
[2021-04-09] MEDS: LORazepam 0.5 MG TABLET PO (19:14)
[2021-04-09] MEDS: Sennosides 8.6 MG TABLET PO (19:15)
[2021-04-09 19:43] VITALS: BP 112/67; PULSE 98; TEMP 36.4
[2021-04-10 06:00] VITALS: BP 114/69; PULSE 74; RESP 18; TEMP 36.5; O2SAT 94
[2021-04-10 07:42] LABS: Estimated Average Glucose 108 mg/dL; Hemoglobin A1c % 5.4 %
[2021-04-10 07:44] LABS: Cholesterol 180 mg/dL; HDL Cholesterol 57 mg/dL; LDL Cholesterol Calculated 109 mg/dl; Triglycerides 70 mg/dL
[2021-04-10 08:04] LABS: Free T4 (Free Thyroxine) 1.39 ng/dL (0.71-1.85); Thyroid Stimulating Hormone 0.53 uIU/mL (0.32-4.0)
[2021-04-10] MEDS: carBAMazepine 200 MG TABLET 500 MG PO ×2 (08:23→20:27)
[2021-04-10] MEDS: Atorvastatin Calcium 10 MG TABLET PO (08:23)
[2021-04-10] MEDS: ARIPiprazole 15 MG TABLET PO (08:23)
[2021-04-10] MEDS: OLANZapine 10 MG TABLET PO ×2 (08:23→20:29)
[2021-04-10] MEDS: LORazepam 1 MG TABLET PO ×2 (08:27→20:29)
[2021-04-10] MEDS: Multivitamin TABLET 1 TAB PO (08:28)
[2021-04-10 17:18] VITALS: BP 118/72; PULSE 80; TEMP 36.5; O2SAT 95
--- NOTE | 2021-04-10 17:23 | P.HPPS_ITS ---
HPI Date of Service: 04/10/21 Chief Complaint: Schizoaffective disorder-Bipolar type Sources of Information: patient interviewed and chart reviewed HPI Subjective Notes: Conditional Voluntary Medical Problems Affecting Mental Status: No Narrative: Patient reports having an outburst at his house. Reports that he overheard something and when he mentioned this, reports that staff told him he did not hear what he thought and he then became angry. Endorse being verbally hostile, swearing and getting and staff members faces. Reports that he called and apologized and would like to return to his retirement. Reports that he hears voices daily and that they do increase when he is at his retirement or is outside. Reports that he hears these quite a bit and that he gets paranoid that people behind him or talking to him and he can sometimes get into arguments when he confronts them. Does endorse feeling upset about this. Otherwise reports sleep is okay. Appetite okay. Denies feeling depressed. 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 Past Psychiatric History: Gets mental health care through [facility]. Denies medication concerns. Is adherent with medications. Reports last inpatient episode was around 5 or 6 years ago. Denies history of suicide attempts. Aware of diagnosis being schizoaffective disorder. Medical Evaluation Reviewed: Yes [facility] Medical History Anxiety Back pain Benign prostatic hyperplasia with lower urinary tract symptoms Bipolar 1 disorder Constipation Enlarged prostate Mood disorder Muscle strain of chest wall Pure hypercholesterolemia Right hand pain Right knee injury Schizoaffective disorder, bipolar type Screening for prostate cancer Smoker Swelling of right hand Thought disorder Surgical History History of colonoscopy History of open reduction and internal fixation (ORIF) procedure History of prostate surgery (~05/03/19) Social History: leaving a retirement setting for the last 7 years. 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 Single. No children. Does report legal issue and court date in June 2021 and reports this was for indecent exposure Substance History: Denied Diagnostics Vital Signs (24Hr): Vital Signs - 24 hr 04/09/21 19:43 04/10/21 06:00 04/10/21 17:18 Temperature 97.6 F 97.7 F 97.7 F Pulse Rate 98 74 80 Respiratory Rate 18 Blood Pressure 112/67 114/69 118/72 Pulse Oximetry 94 95 Body Mass Index 21.4 Labs Labs: Laboratory Results - last 48 hr 04/10/21 04/10/21 07:18 07:18 Estimat Average Glucose 108 Hemoglobin A1c % 5.4 Triglycerides 70 Cholesterol 180 LDL Cholesterol, Calc 109 HDL Cholesterol 57 TSH 0.53 Free T4 1.39 Carbamazepine 7.0 Meds/Allergies Meds Home Medications Acetaminophen (Acetaminophen 325 Mg Tablet) 325 mg PO Q4H PRN PRN Reason: Pain Al Hydroxide/Mg Hydroxide (Magnesium Hydrox/Alum Hydrox 30 Ml Oral.Susp) 30 ml PO Q6H PRN PRN Reason: Heartburn/Nausea Aripiprazole (Aripiprazole 15 Mg Tablet) 15 mg PO DAILY [facility] Last Admin: 04/10/21 08:23 Dose: 15 mg Documented by: Atorvastatin Calcium (Atorvastatin Calcium 10 Mg Tablet) 10 mg PO DAILY [facility] Last Admin: 04/10/21 08:23 Dose: 10 mg Documented by: Carbamazepine (Carbamazepine 200 Mg Tablet) 500 mg PO BID [facility] Last Admin: 04/10/21 08:23 Dose: 500 mg Documented by: Haloperidol (Haloperidol 5 Mg Tablet) 5 mg PO BID PRN PRN Reason: psychosis, agitation Hydroxyzine HCl (Hydroxyzine Hcl 10 Mg Tablet) 10 mg PO TID PRN PRN Reason: anxiety Loratadine (Loratadine 10 Mg Tablet) 10 mg PO DAILY PRN PRN Reason: allergy symptoms Lorazepam (Lorazepam 0.5 Mg Tablet) 0.5 mg PO BEDTIME [facility] Last Admin: 04/09/21 19:14 Dose: 0.5 mg Documented by: Lorazepam (Lorazepam 1 Mg Tablet) 1 mg PO BID [facility] Last Admin: 04/10/21 08:27 Dose: 1 mg Documented by: Lorazepam (Lorazepam 1 Mg Tablet) 1 mg PO BID PRN PRN Reason: agitation Magnesium Hydroxide (Milk Of Magnesia 30 Ml Oral.Susp) 30 ml PO DAILY PRN PRN Reason: Constipation Multivitamins/Vitamin C (Multivitamin Tablet) 1 tab PO DAILY [facility] Last Admin: 04/10/21 08:28 Dose: 1 tab Documented by: Olanzapine (Olanzapine 10 Mg Tablet) 10 mg PO BID [facility] Last Admin: 04/10/21 08:23 Dose: 10 mg Documented by: Pharmacy Consult (Consult Rx Perform Med Rec) 1 each MISCELLANE ONCE PRN PRN Reason: Consult order Senna (Sennosides 8.6 Mg Tablet) 8.6 mg PO BEDTIME [facility] Last Admin: 04/09/21 19:15 Dose: 8.6 mg Documented by: Tramadol HCl (Tramadol Hcl 50 Mg Tablet) 50 mg PO DAILY PRN PRN Reason: Pain Trazodone HCl (Trazodone Hcl 50 Mg Tablet) 50 mg PO BEDTIME PRN PRN Reason: Insomnia Allergies Allergies Allergy/AdvReac Type Severity Reaction Status Date / Time No Known Allergies Allergy Unknown UNKNOWN Verified 04/08/21 14:35 [NO KNOWN ALLERGIES] Mental Status Exam Mental Status Exam Narrative: pleasant. Engaged. Casually dressed with fair hygiene. Is concrete. Flat affect. Denies depression. No SI. No HI. Does endorse hallucinations and some paranoia, but feels comfortable in the hospital and denies being distressed by same. Non command hallucinations. Insight and judgment fair Assessment & Plan Assessment & Plan (1) Schizoaffective disorder, bipolar type: Status: Acute Code(s): F25.0 - Schizoaffective disorder, bipolar type Assessment and Plan: does endorse increased hallucinations and paranoia. Associated irritability. Otherwise denies depression and overt manic symptoms. Reports sleep is okay. No medication concerns. Is asking for Abilify to be increased. Will keep all medications the same, With the exception of increasing Abilify. Maintain Tegretol 500 mg twice daily, olanzapine 10 mg twice daily, Ativan 1 mg morning and afternoon and 0.5 mg at bedtime, Vistaril, Haldol, Ativan and trazodone as needed. increase Abilify to 20 mg Also wants nicotine replacement therapy Patient educated on: diagnosis and medication risk/benefits Informed Consent: understands Reason for continued inpatient stay Substantial Risk for: harm to others and inability to function
[2021-04-10] MEDS: LORazepam 0.5 MG TABLET PO (20:26)
[2021-04-10] MEDS: Sennosides 8.6 MG TABLET PO (20:27)
[2021-04-11 06:00] VITALS: BP 141/86; PULSE 86; RESP 18; TEMP 36.5; O2SAT 97
[2021-04-11] MEDS: OLANZapine 10 MG TABLET PO ×2 (08:27→20:32)
[2021-04-11] MEDS: carBAMazepine 200 MG TABLET 500 MG PO ×2 (08:27→20:32)
[2021-04-11] MEDS: ARIPiprazole 20 MG TABLET PO (08:27)
[2021-04-11] MEDS: Atorvastatin Calcium 10 MG TABLET PO (08:28)
[2021-04-11] MEDS: LORazepam 1 MG TABLET PO ×3 (08:28→20:32)
[2021-04-11] MEDS: Multivitamin TABLET 1 TAB PO (08:28)
--- NOTE | 2021-04-11 13:02 | HO.PSYCHPN ---
Subjective Subjective Date of Service: 04/11/21 Reason For Visit: Schizoaffective disorder-Bipolar type Medical Problems Affecting Mental Status: No Interim History: Patient does endorse feeling paranoid and uncomfortable at times. Feels that people are targeting him, but unable to elaborate on same. Feels people are not nice. Still ongoing hallucinations, that are non command in nature. Sleep okay. Appetite okay. Reports that he is happy that Abilify dose was increased. Reports he would like to talk with his primary team around Zyprexa dosing. Medication Compliance: Yes Side effects from medications: No Attending Groups: Intermittent Review of Systems Acute medical concerns: No Review of Systems Review of Systems Unremarkable Mental Status Exam Mental Status Exam Narrative: pleasant. Engaged. Casually dressed with fair hygiene. Is concrete. Flat affect. Denies depression. No SI. No HI. Does endorse hallucinations and some paranoia. Non command hallucinations. Insight and judgment fair Diagnostics Vital Signs (24Hr): Vital Signs - 24 hr 04/10/21 17:18 04/11/21 06:00 Temperature 97.7 F 97.7 F Pulse Rate 80 86 Respiratory Rate 18 Blood Pressure 118/72 141/86 H Pulse Oximetry 95 97 Body Mass Index 21.4 Labs Labs: Laboratory Results - last 48 hr 04/10/21 04/10/21 07:18 07:18 Estimat Average Glucose 108 Hemoglobin A1c % 5.4 Triglycerides 70 Cholesterol 180 LDL Cholesterol, Calc 109 HDL Cholesterol 57 TSH 0.53 Free T4 1.39 Carbamazepine 7.0 Medications Medications Current Medications Acetaminophen (Acetaminophen 325 Mg Tablet) 325 mg PO Q4H PRN PRN Reason: Pain Al Hydroxide/Mg Hydroxide (Magnesium Hydrox/Alum Hydrox 30 Ml Oral.Susp) 30 ml PO Q6H PRN PRN Reason: Heartburn/Nausea Aripiprazole (Aripiprazole 20 Mg Tablet) 20 mg PO DAILY [facility] Last Admin: 04/11/21 08:27 Dose: 20 mg Documented by: Atorvastatin Calcium (Atorvastatin Calcium 10 Mg Tablet) 10 mg PO DAILY [facility] Last Admin: 04/11/21 08:28 Dose: 10 mg Documented by: Carbamazepine (Carbamazepine 200 Mg Tablet) 500 mg PO BID [facility] Last Admin: 04/11/21 08:27 Dose: 500 mg Documented by: Haloperidol (Haloperidol 5 Mg Tablet) 5 mg PO BID PRN PRN Reason: psychosis, agitation Hydroxyzine HCl (Hydroxyzine Hcl 10 Mg Tablet) 10 mg PO TID PRN PRN Reason: anxiety Loratadine (Loratadine 10 Mg Tablet) 10 mg PO DAILY PRN PRN Reason: allergy symptoms Lorazepam (Lorazepam 0.5 Mg Tablet) 0.5 mg PO BEDTIME [facility] Last Admin: 04/10/21 20:26 Dose: 0.5 mg Documented by: Lorazepam (Lorazepam 1 Mg Tablet) 1 mg PO BID [facility] Last Admin: 04/11/21 08:28 Dose: 1 mg Documented by: Lorazepam (Lorazepam 1 Mg Tablet) 1 mg PO BID PRN PRN Reason: agitation Magnesium Hydroxide (Milk Of Magnesia 30 Ml Oral.Susp) 30 ml PO DAILY PRN PRN Reason: Constipation Multivitamins/Vitamin C (Multivitamin Tablet) 1 tab PO DAILY [facility] Last Admin: 04/11/21 08:28 Dose: 1 tab Documented by: Nicotine Polacrilex (Nicotine Polacrilex 2 Mg Gum) 2 mg BUCCAL Q1H PRN PRN Reason: nicotine withdrawal or craving Olanzapine (Olanzapine 10 Mg Tablet) 10 mg PO BID [facility] Last Admin: 04/11/21 08:27 Dose: 10 mg Documented by: Pharmacy Consult (Consult Rx Perform Med Rec) 1 each MISCELLANE ONCE PRN PRN Reason: Consult order Senna (Sennosides 8.6 Mg Tablet) 8.6 mg PO BEDTIME [facility] Last Admin: 04/10/21 20:27 Dose: 8.6 mg Documented by: Tramadol HCl (Tramadol Hcl 50 Mg Tablet) 50 mg PO DAILY PRN PRN Reason: Pain Trazodone HCl (Trazodone Hcl 50 Mg Tablet) 50 mg PO BEDTIME PRN PRN Reason: Insomnia Allergies Allergies Allergy/AdvReac Type Severity Reaction Status Date / Time No Known Allergies Allergy Unknown UNKNOWN Verified 04/08/21 14:35 [NO KNOWN ALLERGIES] Assessment & Plan Assessment & Plan (1) Schizoaffective disorder, bipolar type: Status: Acute Code(s): F25.0 - Schizoaffective disorder, bipolar type Assessment and Plan: does endorse increased hallucinations and paranoia. Associated irritability. Otherwise denies depression and overt manic symptoms. Reports sleep is okay. No medication concerns. Is asking for Abilify to be increased. Will keep all medications the same, With the exception of increasing Abilify. Maintain Tegretol 500 mg twice daily, olanzapine 10 mg twice daily, Ativan 1 mg morning and afternoon and 0.5 mg at bedtime, Vistaril, Haldol, Ativan and trazodone as needed. increase Abilify to 20 mg Also wants nicotine replacement therapy I spent minutes with the patient and/or on the patient floor today, greater than?50% of which was spent counseling/coordinating care. Reason for contiued inpatient stay Substantial Risk for: inability to function and rapid decompensation
[2021-04-11 16:58] VITALS: BP 128/74; PULSE 72; RESP 18; TEMP 36.7; O2SAT 97
[2021-04-11] MEDS: Sennosides 8.6 MG TABLET PO (20:32)
[2021-04-11] MEDS: LORazepam 0.5 MG TABLET PO (20:32)
[2021-04-12] MEDS: LORazepam 1 MG TABLET PO ×3 (03:38→21:23)
[2021-04-12] MEDS: HaloperidoL 5 MG TABLET PO ×3 (03:38→20:22)
[2021-04-12 06:00] VITALS: BP 124/66; PULSE 88; RESP 18; TEMP 36.2; O2SAT 97
[2021-04-12] MEDS: OLANZapine 10 MG TABLET PO (08:10)
[2021-04-12] MEDS: ARIPiprazole 20 MG TABLET PO (08:10)
[2021-04-12] MEDS: carBAMazepine 200 MG TABLET 500 MG PO ×2 (08:10→20:20)
[2021-04-12] MEDS: Multivitamin TABLET 1 TAB PO (08:11)
[2021-04-12] MEDS: Atorvastatin Calcium 10 MG TABLET PO (08:11)
[2021-04-12 09:15] LABS: Vitamin B12 566 pg/mL (200-900)
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
[2021-04-12] MEDS: hydrOXYzine HCL 10 MG TABLET PO (16:31)
[2021-04-12] MEDS: clonazePAM 0.5 MG TABLET PO (16:57)
[2021-04-12 19:10] VITALS: BP 137/70; PULSE 76; TEMP 36.5
[2021-04-12] MEDS: Sennosides 8.6 MG TABLET PO (20:22)
[2021-04-12] MEDS: LORazepam 0.5 MG TABLET PO (20:22)
[2021-04-12] MEDS: traZODone HCL 50 MG TABLET PO (21:22)
--- NOTE | 2021-04-12 23:34 | PC.NURSE ---
Addendum entered by DIANDRA Gaona 04/12/21 23:35: Three Day Notice up on 04/15/2021. Original Note: Pt signed a Three Day Notice on Monday04/12/2021.
[2021-04-13] MEDS: OLANZapine 10 MG TABLET PO (00:31)
[2021-04-13] MEDS: hydrOXYzine HCL 10 MG TABLET PO (00:32)
[2021-04-13 06:00] VITALS: BP 114/72; PULSE 67; TEMP 36.1; O2SAT 96
[2021-04-13] MEDS: carBAMazepine 200 MG TABLET 500 MG PO ×2 (08:41→20:06)
[2021-04-13] MEDS: ARIPiprazole 20 MG TABLET PO (08:41)
[2021-04-13] MEDS: clonazePAM 0.5 MG TABLET PO ×2 (08:41→13:45)
[2021-04-13] MEDS: HaloperidoL 5 MG TABLET PO ×2 (08:41→20:08)
[2021-04-13] MEDS: Multivitamin TABLET 1 TAB PO (08:41)
[2021-04-13] MEDS: Atorvastatin Calcium 10 MG TABLET PO (08:41)
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
[2021-04-13 17:15] VITALS: BP 141/79; PULSE 65; TEMP 36.3; O2SAT 95
[2021-04-13] MEDS: Sennosides 8.6 MG TABLET PO (20:08)
[2021-04-13] MEDS: LORazepam 0.5 MG TABLET PO (20:08)
[2021-04-13] MEDS: traZODone HCL 50 MG TABLET PO (21:41)
[2021-04-14 06:00] VITALS: BP 121/82; PULSE 72; TEMP 36; O2SAT 96
[2021-04-14] MEDS: carBAMazepine 200 MG TABLET 500 MG PO ×2 (08:11→20:45)
[2021-04-14] MEDS: Atorvastatin Calcium 10 MG TABLET PO (08:11)
[2021-04-14] MEDS: ARIPiprazole 20 MG TABLET PO (08:11)
[2021-04-14] MEDS: clonazePAM 0.5 MG TABLET PO ×2 (08:12→14:41)
[2021-04-14] MEDS: Multivitamin TABLET 1 TAB PO (08:12)
[2021-04-14] MEDS: HaloperidoL 5 MG TABLET PO (08:12)
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
[2021-04-14] MEDS: HaloperidoL 5 MG TABLET 10 MG PO (17:45)
[2021-04-14 18:00] VITALS: BP 148/72; PULSE 82; RESP 18; TEMP 36.6; O2SAT 97
[2021-04-14] MEDS: Sennosides 8.6 MG TABLET PO (20:45)
[2021-04-15 06:00] VITALS: BP 128/72; PULSE 63; RESP 18; TEMP 36.9; O2SAT 98
[2021-04-15 07:00] VITALS: BMI 22.2
[2021-04-15] MEDS: carBAMazepine 200 MG TABLET 500 MG PO ×2 (08:17→21:07)
[2021-04-15] MEDS: clonazePAM 0.5 MG TABLET PO ×2 (08:18→14:25)
[2021-04-15] MEDS: HaloperidoL 5 MG TABLET PO (08:19)
[2021-04-15] MEDS: Atorvastatin Calcium 10 MG TABLET PO (08:19)
[2021-04-15] MEDS: Multivitamin TABLET 1 TAB PO (08:19)
[2021-04-15] MEDS: ARIPiprazole 20 MG TABLET PO (08:19)
--- NOTE | 2021-04-15 10:07 | P.PNPSI_ITS ---
Subjective Subjective Date of Service: 04/15/21 Reason For Visit: Schizoaffective disorder-Bipolar type Interim History: patient a little more calm today. He is no longer convinced that is remains trying to murder him but says he just stays out of his way and accepts him for who he is. Patient said he is feeling more calm and that he is adapting. Patient looks for reassurance that this is true. He says that medications are working well. He denies auditory hallucinations, SI or HI. He says that he agrees he should stay on the unit to make sure his medications are working. Patient said he thinks he advocated well for himself in the team meeting yesterday, asking show card writer the same. Mental Status Exam Mental Status Exam Narrative: Pt is alert and oriented; behavior is cooperative; mildly anxious but less so than yesterday; dressed in casual attire, dirty jeans; mood is described as ok and affect anxious; eye contact adequate; Speech is mildly pressured but also less than yesterday; normal volume and prosody; some psychomotor agitation present, but less so; thought process is goal directed, concrete; he repeats himself; still prone to rambling but more able to be interrupted; Thought content is on adapting to the unit; still some paranoid ideations but less intense; TC remains overall pertinent to relevant topics;?he denies any SI/HI. Denies AVH; Patients insight and judgment impaired but seem improved. Diagnostics Vital Signs (24Hr): Vital Signs - 24 hr 04/14/21 18:00 04/15/21 06:00 Temperature 97.8 F 98.4 F Pulse Rate 82 63 Respiratory Rate 18 18 Blood Pressure 148/72 H 128/72 Pulse Oximetry 97 98 Body Mass Index 22.2 Medications Medications Current Medications Acetaminophen (Acetaminophen 325 Mg Tablet) 325 mg PO Q4H PRN PRN Reason: Pain Al Hydroxide/Mg Hydroxide (Magnesium Hydrox/Alum Hydrox 30 Ml Oral.Susp) 30 ml PO Q6H PRN PRN Reason: Heartburn/Nausea Aripiprazole (Aripiprazole 20 Mg Tablet) 20 mg PO DAILY [facility] Last Admin: 04/15/21 08:19 Dose: 20 mg Documented by: Atorvastatin Calcium (Atorvastatin Calcium 10 Mg Tablet) 10 mg PO DAILY [facility] Last Admin: 04/15/21 08:19 Dose: 10 mg Documented by: Carbamazepine (Carbamazepine 200 Mg Tablet) 500 mg PO BID [facility] Last Admin: 04/15/21 08:17 Dose: 500 mg Documented by: Clonazepam (Clonazepam 0.5 Mg Tablet) 0.5 mg PO BID@0830,1430 [facility] Last Admin: 04/15/21 08:18 Dose: 0.5 mg Documented by: Haloperidol (Haloperidol 5 Mg Tablet) 5 mg PO DAILY [facility] Last Admin: 04/15/21 08:19 Dose: 5 mg Documented by: Haloperidol (Haloperidol 5 Mg Tablet) 10 mg PO DAILY@1700 [facility] Last Admin: 04/14/21 17:45 Dose: 10 mg Documented by: Hydroxyzine HCl (Hydroxyzine Hcl 10 Mg Tablet) 10 mg PO TID PRN PRN Reason: anxiety Last Admin: 04/13/21 00:32 Dose: 10 mg Documented by: Loratadine (Loratadine 10 Mg Tablet) 10 mg PO DAILY PRN PRN Reason: allergy symptoms Lorazepam (Lorazepam 0.5 Mg Tablet) 0.5 mg PO BEDTIME PRN PRN Reason: bedtime anxety Magnesium Hydroxide (Milk Of Magnesia 30 Ml Oral.Susp) 30 ml PO DAILY PRN PRN Reason: Constipation Multivitamins/Vitamin C (Multivitamin Tablet) 1 tab PO DAILY [facility] Last Admin: 04/15/21 08:19 Dose: 1 tab Documented by: Nicotine Polacrilex (Nicotine Polacrilex 2 Mg Gum) 2 mg BUCCAL Q1H PRN PRN Reason: nicotine withdrawal or craving Olanzapine (Olanzapine 10 Mg Tablet) 10 mg PO BID PRN PRN Reason: agitation/anxiety Last Admin: 04/13/21 00:31 Dose: 10 mg Documented by: Pharmacy Consult (Consult Rx Perform Med Rec) 1 each MISCELLANE ONCE PRN PRN Reason: Consult order Senna (Sennosides 8.6 Mg Tablet) 8.6 mg PO BEDTIME [facility] Last Admin: 04/14/21 20:45 Dose: 8.6 mg Documented by: Tramadol HCl (Tramadol Hcl 50 Mg Tablet) 50 mg PO DAILY PRN PRN Reason: Pain Trazodone HCl (Trazodone Hcl 50 Mg Tablet) 50 mg PO BEDTIME PRN PRN Reason: Insomnia Last Admin: 04/13/21 21:41 Dose: 50 mg Documented by: Allergies Allergies Allergy/AdvReac Type Severity Reaction Status Date / Time No Known Allergies Allergy Unknown UNKNOWN Verified 04/08/21 14:35 [NO KNOWN ALLERGIES] Assessment & Plan Assessment & Plan (1) Schizoaffective disorder, bipolar type: Status: Acute Code(s): F25.0 - Schizoaffective disorder, bipolar type Assessment and Plan: IMPRESSION: 55 yo male with hx of schizoaffective disorder, living in [facility] run nursing home who presents for several weeks (or longer) of increasing agitation, confronting behaviors, intermittently posturing to staff, having AH and with delusional thoughts of being sexually assaulted by safe. Patient anxious and with paranoid delusions that people are here to murder him.? Patient has auditory hallucinations.? He has some insight to question if these are auditory hallucinations but seems to mostly think it is real.? Patient agrees to medication changes.? [facility] meeting today were patient and his team seem to find common ground.? Patient agrees to remain on the unit and rescind his 3 day notice for continued treatment.? On Air Director asked patient if he was willing to try clozapine which he said he did try in the past but it caused nighttime urination and he does not want a retrial. -patient a little more calm today. He said he does not think his roommates trying to murder him but continues to stay out of his way. Patient says he is feeling little more comfortable on the unit. Denies AH today -patient has large [facility] meeting this coming Monday which includes an outside distributed energy systems consultant who will weigh in on dispo and medication management. Given that patient is still fragile and has yet to demonstrate any consistent stability patient should remain on the unit for continued medication management now, possibly increasing Haldol daytime dose. PLAN: Patient on CV; later signed 3 day Abilify increased to 20 mg (on admission) Continue Tegretol 500 mg b.i.d. Continue Haldol 5 mg in the a.m. Continue Haldol to 10 mg at dinner time. (pt typically gets more agitated at night times) DC scheduled Olanzapine, make p.r.n. START clonazepam; DC Ativan I spent minutes with the patient and/or on the patient floor today, greater than?50% of which was spent counseling/coordinating care. Reason for contiued inpatient stay Substantial Risk for: inability to function
[2021-04-15 18:00] VITALS: BP 142/89; PULSE 92; RESP 16; TEMP 36.4; O2SAT 97
[2021-04-15] MEDS: HaloperidoL 5 MG TABLET 10 MG PO (21:06)
[2021-04-15] MEDS: Sennosides 8.6 MG TABLET PO (21:07)
[2021-04-15] MEDS: Tamsulosin HCL 0.4 MG CAPSULE PO (21:17)
[2021-04-15] MEDS: Acetaminophen 325 MG TABLET PO (21:57)
--- NOTE | 2021-04-16 02:39 | PC.NURSE ---
Pt has a coude catheter in place. suggested urology consult be put in.
[2021-04-16 06:00] VITALS: BP 131/69; PULSE 71; RESP 16; TEMP 36.4; O2SAT 97
[2021-04-16] MEDS: HaloperidoL 5 MG TABLET PO (08:46)
[2021-04-16] MEDS: Atorvastatin Calcium 10 MG TABLET PO (08:46)
[2021-04-16] MEDS: carBAMazepine 200 MG TABLET 500 MG PO ×2 (08:46→20:48)
[2021-04-16] MEDS: Multivitamin TABLET 1 TAB PO (08:46)
[2021-04-16] MEDS: clonazePAM 0.5 MG TABLET PO ×2 (08:46→13:51)
[2021-04-16] MEDS: ARIPiprazole 20 MG TABLET PO (08:46)
--- NOTE | 2021-04-16 09:57 | PC.NURSE ---
spoke with joselito from [facility] who states silvia is suppoosed to be on Proscar 5mg po daily. last picked up 03/09. dr. oliva aware.
--- NOTE | 2021-04-16 10:24 | P.PNPSI_ITS ---
Subjective Subjective Date of Service: 04/16/21 Reason For Visit: Schizoaffective disorder-Bipolar type Interim History: Patient reports that he is overall feeling better. He says he is feeling less anxious and trying to be nice to people. Patient look for reassurance from staff sitting close by who agreed that patient has been very appropriate to both staff and peers. Patient said he did have 1 moment of negative auditory hallucination, but this resolved on it own. Patient said that he is hopeful he can be discharged on Monday to which director underwriter sales said that that is the current plan. Overnight patient was unable to urinate; bladder scan revealed almost 1000 cc; nursing roofing supervisor administered indwelling catheter. This morning patient restarted on home medication of Flomax and finasteride. Urology consult ordered Diagnostics Vital Signs (24Hr): Vital Signs - 24 hr 04/15/21 18:00 04/16/21 06:00 Temperature 97.6 F 97.6 F Pulse Rate 92 71 Respiratory Rate 16 16 Blood Pressure 142/89 H 131/69 Pulse Oximetry 97 97 Body Mass Index 22.2 Medications Medications Current Medications Acetaminophen (Acetaminophen 325 Mg Tablet) 325 mg PO Q4H PRN PRN Reason: Pain Last Admin: 04/15/21 21:57 Dose: 325 mg Documented by: Al Hydroxide/Mg Hydroxide (Magnesium Hydrox/Alum Hydrox 30 Ml Oral.Susp) 30 ml PO Q6H PRN PRN Reason: Heartburn/Nausea Aripiprazole (Aripiprazole 20 Mg Tablet) 20 mg PO DAILY [facility] Last Admin: 04/16/21 08:46 Dose: 20 mg Documented by: Atorvastatin Calcium (Atorvastatin Calcium 10 Mg Tablet) 10 mg PO DAILY [facility] Last Admin: 04/16/21 08:46 Dose: 10 mg Documented by: Carbamazepine (Carbamazepine 200 Mg Tablet) 500 mg PO BID [facility] Last Admin: 04/16/21 08:46 Dose: 500 mg Documented by: Clonazepam (Clonazepam 0.5 Mg Tablet) 0.5 mg PO BID@0830,1430 [facility] Last Admin: 04/16/21 08:46 Dose: 0.5 mg Documented by: Haloperidol (Haloperidol 5 Mg Tablet) 5 mg PO DAILY [facility] Last Admin: 04/16/21 08:46 Dose: 5 mg Documented by: Haloperidol (Haloperidol 5 Mg Tablet) 10 mg PO DAILY@1700 [facility] Last Admin: 04/15/21 21:06 Dose: 10 mg Documented by: Hydroxyzine HCl (Hydroxyzine Hcl 10 Mg Tablet) 10 mg PO TID PRN PRN Reason: anxiety Last Admin: 04/13/21 00:32 Dose: 10 mg Documented by: Loratadine (Loratadine 10 Mg Tablet) 10 mg PO DAILY PRN PRN Reason: allergy symptoms Lorazepam (Lorazepam 0.5 Mg Tablet) 0.5 mg PO BEDTIME PRN PRN Reason: bedtime anxety Magnesium Hydroxide (Milk Of Magnesia 30 Ml Oral.Susp) 30 ml PO DAILY PRN PRN Reason: Constipation Multivitamins/Vitamin C (Multivitamin Tablet) 1 tab PO DAILY [facility] Last Admin: 04/16/21 08:46 Dose: 1 tab Documented by: Nicotine Polacrilex (Nicotine Polacrilex 2 Mg Gum) 2 mg BUCCAL Q1H PRN PRN Reason: nicotine withdrawal or craving Olanzapine (Olanzapine 10 Mg Tablet) 10 mg PO BID PRN PRN Reason: agitation/anxiety Last Admin: 04/13/21 00:31 Dose: 10 mg Documented by: Pharmacy Consult (Consult Rx Perform Med Rec) 1 each MISCELLANE ONCE PRN PRN Reason: Consult order Senna (Sennosides 8.6 Mg Tablet) 8.6 mg PO BEDTIME [facility] Last Admin: 04/15/21 21:07 Dose: 8.6 mg Documented by: Tamsulosin HCl (Tamsulosin Hcl 0.4 Mg Capsule) 0.4 mg PO BEDTIME [facility] Last Admin: 04/15/21 21:17 Dose: 0.4 mg Documented by: Tramadol HCl (Tramadol Hcl 50 Mg Tablet) 50 mg PO DAILY PRN PRN Reason: Pain Trazodone HCl (Trazodone Hcl 50 Mg Tablet) 50 mg PO BEDTIME PRN PRN Reason: Insomnia Last Admin: 04/13/21 21:41 Dose: 50 mg Documented by: Allergies Allergies Allergy/AdvReac Type Severity Reaction Status Date / Time No Known Allergies Allergy Unknown UNKNOWN Verified 04/08/21 14:35 [NO KNOWN ALLERGIES] Assessment & Plan Assessment & Plan (1) Schizoaffective disorder, bipolar type: Status: Acute Code(s): F25.0 - Schizoaffective disorder, bipolar type Assessment and Plan: IMPRESSION: 55 yo male with hx of schizoaffective disorder, living in [facility] who presents for several weeks (or longer) of increasing agitation, confronting behaviors, intermittently posturing to staff, having AH and with delusional thoughts of being sexually assaulted by safe. Patient anxious and with paranoid delusions that people are here to murder him.? Patient has auditory hallucinations.? He has some insight to question if these are auditory hallucinations but seems to mostly think it is real.? Patient agrees to medication changes.? [facility] meeting today were patient and his team seem to find common ground.? Patient agrees to remain on the unit and rescind his 3 day notice for continued treatment.? Country Director asked patient if he was willing to try clozapine which he said he did try in the past but it caused nighttime urination and he does not want a retrial. -patient a little more calm today. He said he does not think his roommates trying to murder him but continues to stay out of his way. Patient says he is feeling little more comfortable on the unit. Denies AH today -patient has large [facility] meeting this coming Monday which includes an outside quality consultant who will weigh in on dispo and medication management. Given that patient is still fragile and has yet to demonstrate any consistent stability patient should remain on the unit for continued medication management now, possibly increasing Haldol daytime dose. 04/16 patient remains more calm; denies paranoid thoughts about assassins; auditory hallucinations nearly resolved; demonstrating appropriate behaviors and impulse control Urinary retention, received indwelling catheter 04/16; home medications of tamsulosin and finasteride restarted and urology consult ordered PLAN: Patient on CV 1. urinary retention: Likely due to home medications of tamsulosin and finasteride not started on admission Pt received indwelling catheter research agricultural engineer of 04/16 STARTed Tamsulosin 0.4mg daily (home medication not started on admission) STARTed Finasteride 5mg (home medication not started on admission) Urology consult ordered 2. Schizoaffective Abilify increased to 20 mg (on admission) Continue Tegretol 500 mg b.i.d. Continue Haldol 5 mg in the a.m. Continue Haldol to 10 mg at dinner time. (pt typically gets more agitated at night times) DC'd scheduled Olanzapine, make p.r.n. clonazepam; DC Ativan I spent minutes with the patient and/or on the patient floor today, greater than?50% of which was spent counseling/coordinating care. Reason for contiued inpatient stay Substantial Risk for: med/psych decompensation
[2021-04-16] MEDS: Finasteride 5 MG TABLET PO (11:20)
[2021-04-16] MEDS: Tamsulosin HCL 0.4 MG CAPSULE PO ×2 (12:27→20:53)
--- NOTE | 2021-04-16 13:56 | PC.NURSE ---
pts schafer cath is intact. no complaints other than at times uncomfortable. emptied for 525 ml dark yellow clear urine at 1300. enc fluids.
[2021-04-16 20:45] VITALS: BP 130/67; PULSE 65; TEMP 36.6; O2SAT 99
[2021-04-16] MEDS: HaloperidoL 5 MG TABLET 10 MG PO (20:51)
[2021-04-16] MEDS: Sennosides 8.6 MG TABLET PO (20:53)
[2021-04-17] MEDS: Finasteride 5 MG TABLET PO (08:49)
[2021-04-17] MEDS: Tamsulosin HCL 0.4 MG CAPSULE PO ×2 (08:49→20:30)
[2021-04-17] MEDS: ARIPiprazole 20 MG TABLET PO (08:49)
[2021-04-17] MEDS: carBAMazepine 200 MG TABLET 500 MG PO ×2 (08:50→20:28)
[2021-04-17] MEDS: Atorvastatin Calcium 10 MG TABLET PO (08:50)
[2021-04-17] MEDS: HaloperidoL 5 MG TABLET PO (08:51)
[2021-04-17] MEDS: clonazePAM 0.5 MG TABLET PO ×2 (08:51→13:58)
[2021-04-17] MEDS: Multivitamin TABLET 1 TAB PO (08:52)
--- NOTE | 2021-04-17 10:31 | HO.PSYCHPN ---
Subjective Subjective Date of Service: 04/17/21 Reason For Visit: Schizoaffective disorder-Bipolar type Subjective Notes: Conditional Voluntary Medical Problems Affecting Mental Status: Yes (urinary retention, constipation) Interim History: Patient was seen in rounds today. Records, treatment plan and labs were reviewed. He has been on a Santos catheter because of his urinary retention. Medications for his prostate have been restarted. He also complains of constipation. I ordered Colace 100 mg b.i.d. he is going to be discharged early next week. No other changes were made today. Eating and sleeping adequately. No other complaints or side effects Attending Groups: Intermittent Review of Systems Acute medical concerns: Yes Urinary retention and constipation Review of Systems Review of Systems Review of systems is negative by system except for urinary retention secondary to prostate issues and constipation Yes all other systems are reviewed and are negative Mental Status Exam Mental Status Exam Narrative: Pt is alert and oriented; behavior is cooperative; mildly anxious but less so than yesterday; dressed in casual attire, dirty jeans; mood is described as ok and affect anxious; eye contact adequate; Speech is mildly pressured but also less than yesterday; normal volume and prosody; some psychomotor agitation present, but less so; thought process is goal directed, concrete; he repeats himself; still prone to rambling but more able to be interrupted; Thought content is on adapting to the unit; still some paranoid ideations but less intense; TC remains overall pertinent to relevant topics;?he denies any SI/HI. Denies AVH; Patients insight and judgment impaired but seem improved. Diagnostics Vital Signs (24Hr): Vital Signs - 24 hr 04/16/21 20:45 Temperature 97.9 F Pulse Rate 65 Blood Pressure 130/67 Pulse Oximetry 99 Body Mass Index 22.2 Medications Medications Current Medications Acetaminophen (Acetaminophen 325 Mg Tablet) 325 mg PO Q4H PRN PRN Reason: Pain Last Admin: 04/15/21 21:57 Dose: 325 mg Documented by: Al Hydroxide/Mg Hydroxide (Magnesium Hydrox/Alum Hydrox 30 Ml Oral.Susp) 30 ml PO Q6H PRN PRN Reason: Heartburn/Nausea Aripiprazole (Aripiprazole 20 Mg Tablet) 20 mg PO DAILY [facility] Last Admin: 04/17/21 08:49 Dose: 20 mg Documented by: Atorvastatin Calcium (Atorvastatin Calcium 10 Mg Tablet) 10 mg PO DAILY [facility] Last Admin: 04/17/21 08:50 Dose: 10 mg Documented by: Carbamazepine (Carbamazepine 200 Mg Tablet) 500 mg PO BID [facility] Last Admin: 04/17/21 08:50 Dose: 500 mg Documented by: Clonazepam (Clonazepam 0.5 Mg Tablet) 0.5 mg PO BID@0830,1430 [facility] Last Admin: 04/17/21 08:51 Dose: 0.5 mg Documented by: Docusate Sodium (Docusate Sodium 100 Mg Capsule) 100 mg PO BID [facility] Finasteride (Finasteride 5 Mg Tablet) 5 mg PO DAILY [facility] Last Admin: 04/17/21 08:49 Dose: 5 mg Documented by: Haloperidol (Haloperidol 5 Mg Tablet) 5 mg PO DAILY [facility] Last Admin: 04/17/21 08:51 Dose: 5 mg Documented by: Haloperidol (Haloperidol 5 Mg Tablet) 10 mg PO DAILY@1700 [facility] Last Admin: 04/16/21 20:51 Dose: 10 mg Documented by: Hydroxyzine HCl (Hydroxyzine Hcl 10 Mg Tablet) 10 mg PO TID PRN PRN Reason: anxiety Last Admin: 04/13/21 00:32 Dose: 10 mg Documented by: Loratadine (Loratadine 10 Mg Tablet) 10 mg PO DAILY PRN PRN Reason: allergy symptoms Lorazepam (Lorazepam 0.5 Mg Tablet) 0.5 mg PO BEDTIME PRN PRN Reason: bedtime anxety Magnesium Hydroxide (Milk Of Magnesia 30 Ml Oral.Susp) 30 ml PO DAILY PRN PRN Reason: Constipation Multivitamins/Vitamin C (Multivitamin Tablet) 1 tab PO DAILY [facility] Last Admin: 04/17/21 08:52 Dose: 1 tab Documented by: Nicotine Polacrilex (Nicotine Polacrilex 2 Mg Gum) 2 mg BUCCAL Q1H PRN PRN Reason: nicotine withdrawal or craving Olanzapine (Olanzapine 10 Mg Tablet) 10 mg PO BID PRN PRN Reason: agitation/anxiety Last Admin: 04/13/21 00:31 Dose: 10 mg Documented by: Pharmacy Consult (Consult Rx Perform Med Rec) 1 each MISCELLANE ONCE PRN PRN Reason: Consult order Senna (Sennosides 8.6 Mg Tablet) 8.6 mg PO BEDTIME [facility] Last Admin: 04/16/21 20:53 Dose: 8.6 mg Documented by: Tamsulosin HCl (Tamsulosin Hcl 0.4 Mg Capsule) 0.4 mg PO BEDTIME [facility] Last Admin: 04/16/21 20:53 Dose: 0.4 mg Documented by: Tamsulosin HCl (Tamsulosin Hcl 0.4 Mg Capsule) 0.4 mg PO DAILY [facility] Last Admin: 04/17/21 08:49 Dose: 0.4 mg Documented by: Tramadol HCl (Tramadol Hcl 50 Mg Tablet) 50 mg PO DAILY PRN PRN Reason: Pain Trazodone HCl (Trazodone Hcl 50 Mg Tablet) 50 mg PO BEDTIME PRN PRN Reason: Insomnia Last Admin: 04/13/21 21:41 Dose: 50 mg Documented by: Allergies Allergies Allergy/AdvReac Type Severity Reaction Status Date / Time No Known Allergies Allergy Unknown UNKNOWN Verified 04/08/21 14:35 [NO KNOWN ALLERGIES] Assessment & Plan Assessment & Plan (1) Schizoaffective disorder, bipolar type: Status: Acute Code(s): F25.0 - Schizoaffective disorder, bipolar type Assessment and Plan: IMPRESSION: 55 yo male with hx of schizoaffective disorder, living in [facility] run [facility] who presents for several weeks (or longer) of increasing agitation, confronting behaviors, intermittently posturing to staff, having AH and with delusional thoughts of being sexually assaulted by safe. Patient anxious and with paranoid delusions that people are here to murder him.? Patient has auditory hallucinations.? He has some insight to question if these are auditory hallucinations but seems to mostly think it is real.? Patient agrees to medication changes.? [facility] meeting today were patient and his team seem to find common ground.? Patient agrees to remain on the unit and rescind his 3 day notice for continued treatment.? Preschool Substitute Teacher asked patient if he was willing to try clozapine which he said he did try in the past but it caused nighttime urination and he does not want a retrial. -patient a little more calm today. He said he does not think his roommates trying to murder him but continues to stay out of his way. Patient says he is feeling little more comfortable on the unit. Denies AH today -patient has large [facility] meeting this coming Monday which includes an outside labor relations consultant who will weigh in on dispo and medication management. Given that patient is still fragile and has yet to demonstrate any consistent stability patient should remain on the unit for continued medication management now, possibly increasing Haldol daytime dose. 04/16 patient remains more calm; denies paranoid thoughts about assassins; auditory hallucinations nearly resolved; demonstrating appropriate behaviors and impulse control Urinary retention, received indwelling catheter 04/16; home medications of tamsulosin and finasteride restarted and urology consult ordered PLAN: Patient on CV 1. urinary retention: Likely due to home medications of tamsulosin and finasteride not started on admission Pt received indwelling catheter teacher early childhood development of 04/16 STARTed Tamsulosin 0.4mg daily (home medication not started on admission) STARTed Finasteride 5mg (home medication not started on admission) Urology consult ordered 2. Schizoaffective Abilify increased to 20 mg (on admission) Continue Tegretol 500 mg b.i.d. Continue Haldol 5 mg in the a.m. Continue Haldol to 10 mg at dinner time. (pt typically gets more agitated at night times) DC'd scheduled Olanzapine, make p.r.n. clonazepam; [facility] Continue current regimen and plans. Colace was started for his constipation I spent minutes with the patient and/or on the patient floor today, greater than?50% of which was spent counseling/coordinating care. Reason for contiued inpatient stay Substantial Risk for: other
--- NOTE | 2021-04-17 13:55 | PC.NURSE ---
850cc urine drained from schafer catheter at 1330.
--- NOTE | 2021-04-17 13:55 | PC.NURSE ---
had large bm
--- NOTE | 2021-04-17 14:54 | PC.NURSE ---
dr. machado here to see pt. will cont the indwelling schafer cath until monday morning. then remove and have pt attempt to void. will start new med today to help pt urinate.
[2021-04-17 17:09] VITALS: BP 112/66; PULSE 67; TEMP 36.4
[2021-04-17] MEDS: HaloperidoL 5 MG TABLET 10 MG PO (18:06)
[2021-04-17] MEDS: Docusate Sodium 100 MG CAPSULE PO (20:29)
[2021-04-17] MEDS: Sennosides 8.6 MG TABLET PO (20:30)
[2021-04-17] MEDS: traZODone HCL 50 MG TABLET PO (20:31)
[2021-04-18 06:00] VITALS: BP 115/61; PULSE 63; TEMP 36.6; O2SAT 96
[2021-04-18] MEDS: carBAMazepine 200 MG TABLET 500 MG PO ×2 (08:09→20:09)
[2021-04-18] MEDS: Docusate Sodium 100 MG CAPSULE PO ×2 (08:10→20:10)
[2021-04-18] MEDS: ARIPiprazole 20 MG TABLET PO (08:10)
[2021-04-18] MEDS: Multivitamin TABLET 1 TAB PO (08:10)
[2021-04-18] MEDS: Tamsulosin HCL 0.4 MG CAPSULE PO ×3 (08:10→20:09)
[2021-04-18] MEDS: clonazePAM 0.5 MG TABLET PO ×2 (08:11→20:11)
[2021-04-18] MEDS: HaloperidoL 5 MG TABLET PO (08:11)
[2021-04-18] MEDS: Finasteride 5 MG TABLET PO (08:11)
[2021-04-18] MEDS: Atorvastatin Calcium 10 MG TABLET PO (08:11)
--- NOTE | 2021-04-18 09:53 | HO.PSYCHPN ---
Subjective Subjective Date of Service: 04/18/21 Reason For Visit: Schizoaffective disorder-Bipolar type Interim History: Patient was seen in rounds today. He has been stable and is doing better. He is less anxious and depressed. Continues to have some negative thoughts. No inappropriate behaviors in the last couple days. He still has a Santos in place. He continues to complain of constipation and I ordered a dose of lactulose for him today only. He was seen by the urologist yesterday. No other changes were made today. Eating adequately. Review of Systems Review of Systems Urinary retention, constipation Yes all other systems are reviewed and are negative Mental Status Exam Mental Status Exam Narrative: In today's visit he is alert, oriented and pleasant. Normal speech. Good eye contact. Thought processes are coherent. Affect is appropriate and varied. No acute signs of psychosis observed. No overt delusions. Cognitively is overtly intact. Judgment is intact Diagnostics Vital Signs (24Hr): Vital Signs - 24 hr 04/17/21 17:09 04/18/21 06:00 Temperature 97.6 F 97.9 F Pulse Rate 67 63 Blood Pressure 112/66 115/61 Pulse Oximetry 96 Body Mass Index 22.2 Medications Medications Current Medications Acetaminophen (Acetaminophen 325 Mg Tablet) 325 mg PO Q4H PRN PRN Reason: Pain Last Admin: 04/15/21 21:57 Dose: 325 mg Documented by: Al Hydroxide/Mg Hydroxide (Magnesium Hydrox/Alum Hydrox 30 Ml Oral.Susp) 30 ml PO Q6H PRN PRN Reason: Heartburn/Nausea Aripiprazole (Aripiprazole 20 Mg Tablet) 20 mg PO DAILY [facility] Last Admin: 04/18/21 08:10 Dose: 20 mg Documented by: Atorvastatin Calcium (Atorvastatin Calcium 10 Mg Tablet) 10 mg PO DAILY [facility] Last Admin: 04/18/21 08:11 Dose: 10 mg Documented by: Carbamazepine (Carbamazepine 200 Mg Tablet) 500 mg PO BID [facility] Last Admin: 04/18/21 08:09 Dose: 500 mg Documented by: Docusate Sodium (Docusate Sodium 100 Mg Capsule) 100 mg PO BID [facility] Last Admin: 04/18/21 08:10 Dose: 100 mg Documented by: Finasteride (Finasteride 5 Mg Tablet) 5 mg PO DAILY [facility] Last Admin: 04/18/21 08:11 Dose: 5 mg Documented by: Haloperidol (Haloperidol 5 Mg Tablet) 5 mg PO DAILY [facility] Last Admin: 04/18/21 08:11 Dose: 5 mg Documented by: Haloperidol (Haloperidol 5 Mg Tablet) 10 mg PO DAILY@1700 [facility] Last Admin: 04/17/21 18:06 Dose: 10 mg Documented by: Hydroxyzine HCl (Hydroxyzine Hcl 10 Mg Tablet) 10 mg PO TID PRN PRN Reason: anxiety Last Admin: 04/13/21 00:32 Dose: 10 mg Documented by: Loratadine (Loratadine 10 Mg Tablet) 10 mg PO DAILY PRN PRN Reason: allergy symptoms Lorazepam (Lorazepam 0.5 Mg Tablet) 0.5 mg PO BEDTIME PRN PRN Reason: bedtime anxety Magnesium Hydroxide (Milk Of Magnesia 30 Ml Oral.Susp) 30 ml PO DAILY PRN PRN Reason: Constipation Multivitamins/Vitamin C (Multivitamin Tablet) 1 tab PO DAILY [facility] Last Admin: 04/18/21 08:10 Dose: 1 tab Documented by: Nicotine Polacrilex (Nicotine Polacrilex 2 Mg Gum) 2 mg BUCCAL Q1H PRN PRN Reason: nicotine withdrawal or craving Olanzapine (Olanzapine 10 Mg Tablet) 10 mg PO BID PRN PRN Reason: agitation/anxiety Last Admin: 04/13/21 00:31 Dose: 10 mg Documented by: Pharmacy Consult (Consult Rx Perform Med Rec) 1 each MISCELLANE ONCE PRN PRN Reason: Consult order Senna (Sennosides 8.6 Mg Tablet) 8.6 mg PO BEDTIME [facility] Last Admin: 04/17/21 20:30 Dose: 8.6 mg Documented by: Tamsulosin HCl (Tamsulosin Hcl 0.4 Mg Capsule) 0.4 mg PO BEDTIME [facility] Last Admin: 04/18/21 08:10 Dose: 0.4 mg Documented by: Tamsulosin HCl (Tamsulosin Hcl 0.4 Mg Capsule) 0.4 mg PO DAILY [facility] Last Admin: 04/18/21 08:45 Dose: 0.4 mg Documented by: Tramadol HCl (Tramadol Hcl 50 Mg Tablet) 50 mg PO DAILY PRN PRN Reason: Pain Trazodone HCl (Trazodone Hcl 50 Mg Tablet) 50 mg PO BEDTIME PRN PRN Reason: Insomnia Last Admin: 04/17/21 20:31 Dose: 50 mg Documented by: Allergies Allergies Allergy/AdvReac Type Severity Reaction Status Date / Time No Known Allergies Allergy Unknown UNKNOWN Verified 04/08/21 14:35 [NO KNOWN ALLERGIES] Assessment & Plan Assessment & Plan (1) Schizoaffective disorder, bipolar type: Status: Acute Code(s): F25.0 - Schizoaffective disorder, bipolar type Assessment and Plan: IMPRESSION: 55 yo male with hx of schizoaffective disorder, living in [facility] who presents for several weeks (or longer) of increasing agitation, confronting behaviors, intermittently posturing to staff, having AH and with delusional thoughts of being sexually assaulted by safe. Patient anxious and with paranoid delusions that people are here to murder him.? Patient has auditory hallucinations.? He has some insight to question if these are auditory hallucinations but seems to mostly think it is real.? Patient agrees to medication changes.? [facility] meeting today were patient and his team seem to find common ground.? Patient agrees to remain on the unit and rescind his 3 day notice for continued treatment.? Routing Equipment Tender asked patient if he was willing to try clozapine which he said he did try in the past but it caused nighttime urination and he does not want a retrial. -patient a little more calm today. He said he does not think his roommates trying to murder him but continues to stay out of his way. Patient says he is feeling little more comfortable on the unit. Denies AH today -patient has large [facility] meeting this coming Monday which includes an outside information systems consultant who will weigh in on dispo and medication management. Given that patient is still fragile and has yet to demonstrate any consistent stability patient should remain on the unit for continued medication management now, possibly increasing Haldol daytime dose. 04/16 patient remains more calm; denies paranoid thoughts about assassins; auditory hallucinations nearly resolved; demonstrating appropriate behaviors and impulse control Urinary retention, received indwelling catheter 04/16; home medications of tamsulosin and finasteride restarted and urology consult ordered PLAN: Patient on CV 1. 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 Schizoaffective Abilify increased to 20 mg (on admission) Continue Tegretol 500 mg b.i.d. Continue Haldol 5 mg in the a.m. Continue Haldol to 10 mg at dinner time. (pt typically gets more agitated at night times) DC'd scheduled Olanzapine, make p.r.n. clonazepam; DC Ativan 04/17/2021. Continue current regimen and plans. Colace was started for his constipation 04/18/2021, continue current regimen and plans. A dose of lactulose was given today for constipation I spent minutes with the patient and/or on the patient floor today, greater than?50% of which was spent counseling/coordinating care. Reason for contiued inpatient stay Substantial Risk for: other
[2021-04-18] MEDS: Lactulose 20 GM/30 ML SOLUTION 30 GM PO (14:32)
[2021-04-18] MEDS: HaloperidoL 5 MG TABLET 10 MG PO (16:59)
[2021-04-18 19:30] VITALS: BP 107/64; PULSE 72; TEMP 36.5
[2021-04-18] MEDS: Sennosides 8.6 MG TABLET PO (20:09)
[2021-04-19] MEDS: Docusate Sodium 100 MG CAPSULE PO (08:44)
[2021-04-19] MEDS: clonazePAM 0.5 MG TABLET PO (08:44)
[2021-04-19] MEDS: ARIPiprazole 20 MG TABLET PO (08:44)
[2021-04-19] MEDS: Atorvastatin Calcium 10 MG TABLET PO (08:45)
[2021-04-19] MEDS: Multivitamin TABLET 1 TAB PO (08:45)
[2021-04-19] MEDS: carBAMazepine 200 MG TABLET 500 MG PO (08:45)
[2021-04-19] MEDS: HaloperidoL 5 MG TABLET PO (08:45)
[2021-04-19] MEDS: Tamsulosin HCL 0.4 MG CAPSULE PO (08:46)
[2021-04-19] MEDS: Finasteride 5 MG TABLET PO (08:46)
--- NOTE | 2021-04-19 09:14 | P.CNUR_ITS ---
History of Present Illness Consult details Consult date: 04/18/21 Narrative: Asked to see patient re urinary retention Well known to Urology Prior incomplete bladder emptying secondary to anticholinergic side effects from long-term antipsychotic medication use Last week found to have 1000 cc within his bladder. Santos catheter placed. Looking through his medications he appears to be off the bethanechol and tamsulosin that had previously been found to be effective for his bladder emptyi ng. Santos catheter should remain for approximately 5 days after initial placement. This will been voiding trial on Monday. Bethanechol should be re-initiated Review of Systems Constitutional: Constitutional: Denies chills and Denies fever(s) Cardiovascular: Cardiovascular: Reports no additional cardiovascular complaints and Denies syncope Respiratory: Respiratory: Denies cough Gastrointestinal: Gastrointestinal: Denies abdominal pain and Denies heartburn Genitourinary: Genitourinary: Reports as per HPI and Denies change in libido Neurologic: Denies syncope Psychiatric: Psychiatric: Denies change in libido Endocrine: Endocrine: Denies change in libido [facility] Past Medical History Medical History Anxiety Back pain Benign prostatic hyperplasia with lower urinary tract symptoms Bipolar 1 disorder Constipation Enlarged prostate Mood disorder Muscle strain of chest wall Pure hypercholesterolemia Right hand pain Right knee injury Schizoaffective disorder, bipolar type Screening for prostate cancer Smoker Swelling of right hand Thought disorder Family History Family History Father Lung cancer BPH (benign prostatic hyperplasia) Mother Dementia Brother Myocardial infarction Other Mental health problem Substance abuse Surgical History Surgical History History of colonoscopy History of open reduction and internal fixation (ORIF) procedure History of prostate surgery (~05/03/19) Social History Social History Household Members: None Housing: Assisted Living Facility Housing Other:: long term Do you presently have visiting nurse or other home services: No Alcohol intake: never Patient Tobacco Use Status: Current everyday Tobacco user Tobacco use type: Cigarette Cigarette Packs Per Day: 1 Cigarettes Per Day: 20.0 Years Smoked: 10 Second Hand Smoke Exposure: Yes service: No Current occupational status: employed Current occupation: [id number] Sexual orientation: Decline to Answer Meds Allergies Allergy/AdvReac Type Severity Reaction Status Date / Time No Known Allergies Allergy Unknown UNKNOWN Verified 04/08/21 14:35 [NO KNOWN ALLERGIES] Active Medications: Current Medications Acetaminophen (Acetaminophen 325 Mg Tablet) 325 mg PO Q4H PRN PRN Reason: Pain Last Admin: 04/15/21 21:57 Dose: 325 mg Documented by: Al Hydroxide/Mg Hydroxide (Magnesium Hydrox/Alum Hydrox 30 Ml Oral.Susp) 30 ml PO Q6H PRN PRN Reason: Heartburn/Nausea Aripiprazole (Aripiprazole 20 Mg Tablet) 20 mg PO DAILY [facility] Last Admin: 04/19/21 08:44 Dose: 20 mg Documented by: Atorvastatin Calcium (Atorvastatin Calcium 10 Mg Tablet) 10 mg PO DAILY [facility] Last Admin: 04/19/21 08:45 Dose: 10 mg Documented by: Carbamazepine (Carbamazepine 200 Mg Tablet) 500 mg PO BID [facility] Last Admin: 04/19/21 08:45 Dose: 500 mg Documented by: Clonazepam (Clonazepam 0.5 Mg Tablet) 0.5 mg PO BID [facility] Last Admin: 04/19/21 08:44 Dose: 0.5 mg Documented by: Docusate Sodium (Docusate Sodium 100 Mg Capsule) 100 mg PO BID [facility] Last Admin: 04/19/21 08:44 Dose: 100 mg Documented by: Finasteride (Finasteride 5 Mg Tablet) 5 mg PO DAILY [facility] Last Admin: 04/19/21 08:46 Dose: 5 mg Documented by: Haloperidol (Haloperidol 5 Mg Tablet) 5 mg PO DAILY [facility] Last Admin: 04/19/21 08:45 Dose: 5 mg Documented by: Haloperidol (Haloperidol 5 Mg Tablet) 10 mg PO DAILY@1700 [facility] Last Admin: 04/18/21 16:59 Dose: 10 mg Documented by: Hydroxyzine HCl (Hydroxyzine Hcl 10 Mg Tablet) 10 mg PO TID PRN PRN Reason: anxiety Last Admin: 04/13/21 00:32 Dose: 10 mg Documented by: Loratadine (Loratadine 10 Mg Tablet) 10 mg PO DAILY PRN PRN Reason: allergy symptoms Lorazepam (Lorazepam 0.5 Mg Tablet) 0.5 mg PO BEDTIME PRN PRN Reason: bedtime anxety Magnesium Hydroxide (Milk Of Magnesia 30 Ml Oral.Susp) 30 ml PO DAILY PRN PRN Reason: Constipation Multivitamins/Vitamin C (Multivitamin Tablet) 1 tab PO DAILY [facility] Last Admin: 04/19/21 08:45 Dose: 1 tab Documented by: Nicotine Polacrilex (Nicotine Polacrilex 2 Mg Gum) 2 mg BUCCAL Q1H PRN PRN Reason: nicotine withdrawal or craving Olanzapine (Olanzapine 10 Mg Tablet) 10 mg PO BID PRN PRN Reason: agitation/anxiety Last Admin: 04/13/21 00:31 Dose: 10 mg Documented by: Pharmacy Consult (Consult Rx Perform Med Rec) 1 each MISCELLANE ONCE PRN PRN Reason: Consult order Senna (Sennosides 8.6 Mg Tablet) 8.6 mg PO BEDTIME [facility] Last Admin: 04/18/21 20:09 Dose: 8.6 mg Documented by: Tamsulosin HCl (Tamsulosin Hcl 0.4 Mg Capsule) 0.4 mg PO BEDTIME [facility] Last Admin: 04/18/21 20:09 Dose: 0.4 mg Documented by: Tamsulosin HCl (Tamsulosin Hcl 0.4 Mg Capsule) 0.4 mg PO DAILY [facility] Last Admin: 04/19/21 08:46 Dose: 0.4 mg Documented by: Trazodone HCl (Trazodone Hcl 50 Mg Tablet) 50 mg PO BEDTIME PRN PRN Reason: Insomnia Last Admin: 04/17/21 20:31 Dose: 50 mg Documented by: Home Medications Medication Instructions Recorded Confirmed Last Taken Type hydroxyzine HCl 10 mg tablet 10 mg PO TID PRN 06/21/20 04/08/21 Unknown History lorazepam 0.5 mg tablet (Ativan) 0.5 mg PO BEDTIME 06/21/20 04/08/21 07/19/20 History lorazepam 1 mg tablet 1 mg PO BID 06/21/20 04/08/21 07/19/20 History acetaminophen 500 mg tablet 500 mg PO Q4H PRN 02/04/21 04/08/21 Unknown History aripiprazole 15 mg tablet 15 mg PO DAILY 02/04/21 04/08/21 Unknown History sennosides 8.6 mg capsule (senna) 8.6 mg PO BEDTIME 02/04/21 04/08/21 Unknown History carbamazepine 200 mg tablet 500 mg PO BID tab 02/10/21 04/08/21 Unknown History olanzapine 20 mg tablet 10 mg PO BID 04/08/21 04/08/21 Unknown History tramadol 50 mg tablet 50 mg PO DAILY PRN 04/08/21 04/08/21 Unknown History Physical Exam Vital Signs: Vital Signs: Last Vital Signs Temp 97.7 F 04/18/21 19:30 Pulse 72 04/18/21 19:30 Resp 16 04/16/21 06:00 BP 107/64 04/18/21 19:30 Pulse Ox 96 04/18/21 06:00 Body Mass Index 22.2 Const: General: cooperative, healthy appearing, comfortable and no acute distress Orientation/consciousness: patient oriented x3 HENMT: Face and sinus: Yes normal facial exam Mouth: moist mucous membranes Neck: Neck: Yes normal visual inspection, Yes full ROM and Yes trachea midline Chest: Chest palpation & inspection: normal inspection of the chest Resp: Effort & Inspection: normal respiratory effort, able to speak in complete sentences and no respiratory distress GI: Inspection: Yes normal to inspection Back/Spine/Pelvis: Cervical Spine: normal cervical lordosis Thoracic/Lumbar Spine: thoracic and lumbar spine normal to inspection Skin: General skin exam: no rashes or lesions noted Neuro: General: patient oriented x3, gait normal, tone normal and moves all extremities Extrem: General: Yes normal to inspection and Yes capillary refill normal Results Labs Labs: All other labs normal. Assessment and Plan (1) Neurogenic bladder: Status: Acute Voiding trial Monday Re-initiate bethanechol for discharge Procedures Date of Service Date of Service: 04/18/21
--- NOTE | 2021-04-19 09:30 | PM.PSYDC ---
DS: Providers Provider Date of Service: 04/19/21 Date of admission: 04/09/21 15:16 Date of discharge: 04/19/21 Primary care physician: Dk Rodriguez MD Attending physician on admission: Quang Ward Consults: 04/08/21 15:30 Consult to Crisis Stat Reason for consultation: Patient became angry and violent a half-way, please evaluate Has provider been notified: No 04/16/21 14:29 Consult to Urology Routine Consulting Provider: Keon Liu Reason for consultation: unable to urniate; got indwelling cath; proscar/flomax restarted Attending physician on discharge: Quang Ward DS: Diagnosis Discharge Diagnosis (1) Neurogenic bladder: Status: Acute (2) Schizoaffective disorder, bipolar type: Status: Acute DS: Medications Discharge Medications Home Medications: Home Medications Medication Instructions Recorded Confirmed acetaminophen 500 mg tablet 500 mg PO Q4H PRN 02/04/21 04/08/21 tramadol 50 mg tablet 50 mg PO DAILY PRN 04/08/21 04/08/21 Previous Rx's Medication Instructions Recorded loratadine 10 mg tablet 10 mg PO DAILY PRN 30 Days #30 tab 08/05/20 multivitamin-iron 9 mg-folic acid 1 tab PO DAILY #30 tab 02/09/21 400 mcg-calcium and minerals tablet (Thera-M) atorvastatin 10 mg tablet 10 mg PO DAILY #30 tab 04/16/21 aripiprazole 20 mg tablet (Abilify) 20 mg PO DAILY 30 Days #30 tab 04/19/21 bethanechol chloride 50 mg tablet 50 mg PO TID 30 Days #90 tab 04/19/21 carbamazepine 200 mg tablet 500 mg PO BID 30 Days #150 tab 04/19/21 clonazepam 0.5 mg tablet 0.5 mg PO BID 30 Days #60 tab 04/19/21 docusate sodium 100 mg capsule 100 mg PO BID PRN 30 Days #60 cap 04/19/21 haloperidol 5 mg tablet See Rx Instructions .ROUTE 04/19/21 .COMPLEX 30 Days #90 tab hydroxyzine HCl 10 mg tablet 10 mg PO TID PRN 30 Days #60 tab 04/19/21 sennosides 8.6 mg capsule (senna) 8.6 mg PO BEDTIME 30 Days #30 cap 04/19/21 tamsulosin 0.4 mg capsule 0.4 mg PO BEDTIME 30 Days #30 cap 04/19/21 trazodone 50 mg tablet 50 mg PO BEDTIME PRN 30 Days #30 04/19/21 tab Mental Status Exam Mental Status Exam Narrative: Pt is alert and oriented; behavior is cooperative; mildly anxious; dressed in casual attire; mood is described as pretthy good and affect congruent; eye contact adequate; Speech is normal rate, volume, prosody; no psychomotor agitation; thought process is goal directed, concrete; Thought content is on tx, discharge; no paranoid thoughts expressed; TC remains overall pertinent to relevant topics;?he denies any SI/HI. Denies AVH;? Patients insight and judgment fair, intact. DS: Summary Hospital Course Hospital Course: 55 yo male with hx of schizoaffective disorder, living in [facility]way who presents for several weeks (or longer) of increasing agitation, confronting behaviors, intermittently posturing to staff, having AH and with delusional thoughts of being sexually assaulted by safe. On admission, Patient anxious and with paranoid delusions that people are here to murder him.?AH hearing people saying threatening things about him. Patient agrees to medication changes and abilify increased to 20mg; zyprexa dc'd and haldol started instead at patients request and to good effect; also, clonazepam to replace ativan.?Pt's AH and paranoid delusions resolved; he became stable and felt he was able to adapt to being on the unit. Pt met with staff from half-way and felt he got a chance to share and get resolved about what was bothering him about living there. During admission, pt developed urinary retention and indwelling Schafer was placed. Urologist Dr. Liu saw pt, whom he's known for years and reports this was due to antipsychotic medication, something typical for patient. Dr. Sevilla informed telegraphic typewriter operator to order the following: -re-start Behathanacol 50mg tid -continue tamsulosin -dc finnestride -remove schafer; pt able to void on own. Pt remained in good impulse and behavioral control. He said his mood was pretty good and he continued to deny any SI/HI/AVH. He was eager to return to half-way. Pt was not in imminent risk for harm to self or others. Request for discharge honored. Status at Discharge Functional status at discharge: independent ambulation Overall status at discharge: patient is back to baseline Time Spent with Patient Time attestation: Total time spent providing and/or coordinating discharge services: Time spent: Greater than 30 minutes Discharge Plan Discharge Patient Disposition: Home, Self-Care Discharge Diagnosis: Schizoaffective disorder, bipolar type Referrals: Dr. Oskar Eduardo (medication evaluation) [Other] - 04/22/21 2:40 pm (This appointment is in-office) Dk Rodriguez MD [Primary Care Provider] - 04/26/21 11:00 am Keon Liu MD [Physician] - 05/18/21 1:15 pm Discharge Medications: New tamsulosin 0.4 mg Capsule 0.4 mg PO BEDTIME 30 Days Qty: 30 RF: 0 aripiprazole [Abilify] 20 mg Tablet 20 mg PO DAILY 30 Days Qty: 30 RF: 0 clonazepam 0.5 mg Tablet 0.5 mg PO BID 30 Days Qty: 60 RF: 0 haloperidol 5 mg Tablet See Rx Instructions .ROUTE .COMPLEX 30 Days Qty: 90 RF: 0 trazodone 50 mg Tablet 50 mg PO BEDTIME PRN (Reason: Insomnia) 30 Days Qty: 30 RF: 0 docusate sodium 100 mg Capsule 100 mg PO BID PRN (Reason: constipation) 30 Days Qty: 60 RF: 0 bethanechol chloride 50 mg tablet 50 mg PO TID 30 Days Qty: 90 RF: 0 Continued loratadine 10 mg tablet 10 mg PO DAILY PRN (Reason: allergy symptoms) 30 Days Qty: 30 RF: 4 Thera-M 9 mg iron-400 mcg tablet 1 tab PO DAILY Qty: 30 RF: 5 atorvastatin 10 mg tablet 10 mg PO DAILY Qty: 30 RF: 2 acetaminophen 500 mg tablet 500 mg PO Q4H PRN (Reason: Pain) RF: 0 tramadol 50 mg Tablet 50 mg PO DAILY PRN (Reason: Pain) RF: 0 carbamazepine 200 mg tablet 500 mg PO BID 30 Days Qty: 150 RF: 0 hydroxyzine HCl 10 mg tablet 10 mg PO TID PRN (Reason: anxiety) 30 Days Qty: 60 RF: 0 senna 8.6 mg capsule 8.6 mg PO BEDTIME 30 Days Qty: 30 RF: 0 Discontinued aripiprazole 15 mg tablet 15 mg PO DAILY RF: 0 lorazepam 1 mg tablet 1 mg PO BID RF: 0 lorazepam [Ativan] 0.5 mg Tablet 0.5 mg PO BEDTIME RF: 0 olanzapine 20 mg tablet 10 mg PO BID RF: 0 Discharge Orders: Discharge Order (Routine); Ordered 04/19/21 Ordered By: Quang Ward Diet: regular diet Activity on Discharge: As tolerated Stand Alone Forms: Patient Portal Discharge page Care Plan Goals: Maintain mood and safe behaviors Take medications as prescribed Practice coping skills Continue with outpatient providers and reach out to them as needed Health Concerns: Mood stability and behaviors Plan of Treatment: Follow up with your PCP, psychiatric provider and other outpatient providers regarding above concerns Take medications as prescribed Assessment: Risk assessment at time of discharge:? Patient was interviewed prior to discharge and found to be fully oriented and without any SI or HI. Patient has insight and demonstrates good judgment in terms of wanting to pursue treatment. Patient is not in imminent risk of harm to self or others and has a safety plan that includes presenting to the closest ER or calling 911 if feeling unsafe.? Patient has been observed closely by nursing and unit staff throughout admission; patient has not engaged in any behaviors that suggest dangerousness to self or others and has demonstrated appropriate behaviors and impulse control Discharge Date/Time: 04/19/21 15:19
[2021-04-19] MEDS: Bethanechol Chloride 25 MG TABLET 50 MG PO ×2 (11:44→14:40)
== END 2021-04-19 15:19 | disposition home or self-care (01) | DRG 885 ==
LOC: HO.ED 04-09 10:21 → HO.PM5 04-09 15:20
PROVIDERS: Clinical Nurse Specialist Psychiatric/Mental Health, Adult; Admitting Provider Psychiatry & Neurology Psychiatry; Emergency Provider Emergency Medicine Emergency Medical Services; PCP Internal Medicine; Visit Provider Psychiatry & Neurology Psychiatry
DX: F25.0 Schizoaffective disorder, bipolar type (principal); N31.9 Neuromuscular dysfunction of bladder, unspecified; F17.210 Nicotine dependence, cigarettes, uncomplicated; Z71.6 Tobacco abuse counseling; Z79.899 Other long term (current) drug therapy
CPT/HCPCS: 36415; 80061; 80156; 82607; 82746; 83036; 84439; 84443; 93005; 99285; C1758

== ENCOUNTER 2021-04-21 01:19 | Emergency (ER) | payer MEDICARE, MEDICAID, SELFPAY ==
--- NOTE | ~2021-04-21 | XR_ITS ---
EXAMINATION: XR ABDOMEN KUB CLINICAL INDICATION: Abdominal discomfort, question constipation COMPARISON: CT 03/29/2021 TECHNIQUE: AP view of the abdomen. FINDINGS: The bowel gas pattern is nonobstructive. Mild to moderate scattered stool is noted throughout the colon and in the rectum. No gross evidence of free air, though assessment is limited with supine positioning. Lung bases are well aerated. Osteophytes are noted in the spine. XR/XR KUB IMPRESSION: Nonobstructive bowel gas pattern. Mild to moderate volume of stool.
[2021-04-21 01:31] VITALS: BP 110/71; PULSE 94; RESP 18; TEMP 36.2; O2SAT 98; BMI 22.8
--- NOTE | 2021-04-21 02:31 | ED.GENADULT ---
HPI - General Adult General Chief complaint: General Medical Stated complaint: Constipation Time Seen by Provider: 04/21/21 01:43 Source: patient Mode of arrival: ambulatory History of Present Illness HPI narrative: 55-year-old male presents with complaints of acid reflux as well as patient in for couple of weeks and states that he has ran out of his occasions. Otherwise, he denies any fever, chills, shortness of breath or chest pain/palpitations. Related Data Home Medications Medication Instructions Recorded Confirmed acetaminophen 500 mg tablet 500 mg PO Q4H PRN 02/04/21 04/08/21 tramadol 50 mg tablet 50 mg PO DAILY PRN 04/08/21 04/08/21 Previous Rx's Medication Instructions Recorded loratadine 10 mg tablet 10 mg PO DAILY PRN 30 Days #30 tab 08/05/20 multivitamin-iron 9 mg-folic acid 1 tab PO DAILY #30 tab 02/09/21 400 mcg-calcium and minerals tablet (Thera-M) atorvastatin 10 mg tablet 10 mg PO DAILY #30 tab 04/16/21 aripiprazole 20 mg tablet (Abilify) 20 mg PO DAILY 30 Days #30 tab 04/19/21 bethanechol chloride 50 mg tablet 50 mg PO TID 30 Days #90 tab 04/19/21 carbamazepine 200 mg tablet 500 mg PO BID 30 Days #150 tab 04/19/21 clonazepam 0.5 mg tablet 0.5 mg PO BID 30 Days #60 tab 04/19/21 docusate sodium 100 mg capsule 100 mg PO BID PRN 30 Days #60 cap 04/19/21 haloperidol 5 mg tablet See Rx Instructions .ROUTE 04/19/21 .COMPLEX 30 Days #90 tab hydroxyzine HCl 10 mg tablet 10 mg PO TID PRN 30 Days #60 tab 04/19/21 sennosides 8.6 mg capsule (senna) 8.6 mg PO BEDTIME 30 Days #30 cap 04/19/21 tamsulosin 0.4 mg capsule 0.4 mg PO BEDTIME 30 Days #30 cap 04/19/21 trazodone 50 mg tablet 50 mg PO BEDTIME PRN 30 Days #30 04/19/21 tab omeprazole 40 mg capsule,delayed 40 mg PO DAILY 14 Days #14 cap 04/21/21 release polyethylene glycol 3350 17 17 g PO DAILY 14 Days #238 g 04/21/21 gram/dose oral powder (Miralax) Allergies Allergy/AdvReac Type Severity Reaction Status Date / Time No Known Allergies Allergy Unknown UNKNOWN Verified 04/08/21 14:35 [NO KNOWN ALLERGIES] Review of Systems Review of Systems: Pertinent positives and negatives as stated in HPI 10 point review of systems is otherwise negative. [facility] Past Medical History Source: nursing notes reviewed Medical History Anxiety Back pain Benign prostatic hyperplasia with lower urinary tract symptoms Bipolar 1 disorder Constipation Enlarged prostate Mood disorder Muscle strain of chest wall Pure hypercholesterolemia Right hand pain Right knee injury Schizoaffective disorder, bipolar type Screening for prostate cancer Smoker Swelling of right hand Thought disorder Surgical History History of colonoscopy History of open reduction and internal fixation (ORIF) procedure History of prostate surgery (~05/03/19) Family History Family History Father Lung cancer BPH (benign prostatic hyperplasia) Mother Dementia Brother Myocardial infarction Other Mental health problem Substance abuse Social History Social History Household Members: None Housing: Assisted Living Facility Housing Other:: care home Do you presently have visiting nurse or other home services: No Alcohol intake: never Patient Tobacco Use Status: Current everyday Tobacco user Tobacco use type: Cigarette Cigarette Packs Per Day: 1 Cigarettes Per Day: 20.0 Years Smoked: 10 Second Hand Smoke Exposure: Yes Advance Directives: No Advance Directives Information Provided: Yes service: No Current occupational status: employed Current occupation: [employer] Sexual orientation: Decline to Answer Physical Exam Vital Signs: Vital Signs: Last Vital Signs Temp 97.2 F 04/21/21 01:31 Pulse 94 04/21/21 01:31 Resp 18 04/21/21 01:31 BP 110/71 04/21/21 01:31 Pulse Ox 98 04/21/21 01:31 Body Mass Index 22.8 VITAL SIGNS: Reviewed. GENERAL: Well developed, well nourished, in no acute distress. HEAD: Normocephalic/atraumatic EYES: PERRLA, EOMI OROPHARYNX: no oral lesions noted, posterior pharynx clear NECK: Supple, no adenopathy LUNGS: Normal breath sounds. No adventitious sounds or accessory muscle use. SpO2<98> CARDIOVASCULAR: Regular rate and rhythm without noted murmurs ABDOMEN: Soft, non-tender, non-distended with bowel sounds. NEUROLOGIC: Alert and oriented x 4. Course Course Course Narrative: 55-year-old male with history and clinical presentation consistent with mild acid reflux and on review of KUB demonstrates mild to moderate volume of stool. Patient received a GI cocktail as well as an isolated dose of lactulose, but discussed with patient the use of MiraLax and will provide a prescription. Patient was otherwise discharged home in stable condition. Discharge Plan Discharge Clinical Impression: GERD (gastroesophageal reflux disease), Constipation Patient Disposition: Home, Self-Care Instructions: Constipation (ED), High Fiber Diet (ED), Diet for Stomach Ulcers and Gastritis (ED), Gastroesophageal Reflux Disease (ED), Fleet Enema (ED) Additional Instructions: 1. Resume all home medications as prescribed. 2. You have been prescribed medication for both acid reflux as well as constipation. 3. Follow-up with your primary care provider the next 2-3 days for re-evaluation further outpatient management. Return to the ER for worsening symptoms. Prescriptions: New polyethylene glycol 3350 [Miralax] 17 gram/dose powder 17 g PO DAILY 14 Days Qty: 238 RF: 0 omeprazole 40 mg capsule,delayed release(DR/EC) 40 mg PO DAILY 14 Days Qty: 14 RF: 0 No Action loratadine 10 mg tablet 10 mg PO DAILY PRN (Reason: allergy symptoms) 30 Days Qty: 30 RF: 4 Thera-M 9 mg iron-400 mcg tablet 1 tab PO DAILY Qty: 30 RF: 5 atorvastatin 10 mg tablet 10 mg PO DAILY Qty: 30 RF: 2 acetaminophen 500 mg tablet 500 mg PO Q4H PRN (Reason: Pain) RF: 0 tramadol 50 mg Tablet 50 mg PO DAILY PRN (Reason: Pain) RF: 0 tamsulosin 0.4 mg Capsule 0.4 mg PO BEDTIME 30 Days Qty: 30 RF: 0 aripiprazole [Abilify] 20 mg Tablet 20 mg PO DAILY 30 Days Qty: 30 RF: 0 clonazepam 0.5 mg Tablet 0.5 mg PO BID 30 Days Qty: 60 RF: 0 haloperidol 5 mg Tablet See Rx Instructions .ROUTE .COMPLEX 30 Days Qty: 90 RF: 0 trazodone 50 mg Tablet 50 mg PO BEDTIME PRN (Reason: Insomnia) 30 Days Qty: 30 RF: 0 docusate sodium 100 mg Capsule 100 mg PO BID PRN (Reason: constipation) 30 Days Qty: 60 RF: 0 carbamazepine 200 mg tablet 500 mg PO BID 30 Days Qty: 150 RF: 0 hydroxyzine HCl 10 mg tablet 10 mg PO TID PRN (Reason: anxiety) 30 Days Qty: 60 RF: 0 senna 8.6 mg capsule 8.6 mg PO BEDTIME 30 Days Qty: 30 RF: 0 bethanechol chloride 50 mg tablet 50 mg PO TID 30 Days Qty: 90 RF: 0
[2021-04-21] MEDS: Lidocaine HCl Viscous 2 % 15 ML SOLUTION 10 ML MUCOUS MEM (02:44)
[2021-04-21] MEDS: Magnesium Hydrox/Alum Hydrox 30 ML ORAL.SUSP PO (02:44)
[2021-04-21] MEDS: Lactulose 20 GM/30 ML SOLUTION PO (03:16)
== END 2021-04-21 03:20 | disposition home or self-care (01) ==
PROVIDERS: Emergency Provider Student in an Organized Health Care Education/Training Program
DX: K59.00 Constipation, unspecified (principal); K21.9 Gastro-esophageal reflux disease without esophagitis
CPT/HCPCS: 74018; 99283

== ENCOUNTER 2021-05-15 05:15 | Emergency (ER) | payer MEDICARE, MEDICAID, SELFPAY ==
[2021-05-15 05:22] VITALS: BP 120/76; PULSE 96; RESP 20; TEMP 36.7; O2SAT 94; BMI 22.1
--- NOTE | 2021-05-15 08:34 | ED.GENADULT ---
HPI - General Adult General Chief complaint: General Medical Stated complaint: check up? Time Seen by Provider: 05/15/21 05:58 Source: patient Mode of arrival: ambulatory History of Present Illness HPI narrative: 55-year-old male without significant complaints other than requesting to be tested for Haldol as he was recently started on this medication. Otherwise, he denies any cough, shortness of breath, chest pain/palpitations, GI or symptoms. Patient denies any trembling or uncontrolled movements. Related Data Home Medications Medication Instructions Recorded Confirmed acetaminophen 500 mg tablet 500 mg PO Q4H PRN 02/04/21 04/08/21 tramadol 50 mg tablet 50 mg PO DAILY PRN 04/08/21 04/08/21 Previous Rx's Medication Instructions Recorded loratadine 10 mg tablet 10 mg PO DAILY PRN 30 Days #30 tab 08/05/20 multivitamin-iron 9 mg-folic acid 1 tab PO DAILY #30 tab 02/09/21 400 mcg-calcium and minerals tablet (Thera-M) atorvastatin 10 mg tablet 10 mg PO DAILY #30 tab 04/16/21 aripiprazole 20 mg tablet (Abilify) 20 mg PO DAILY 30 Days #30 tab 04/19/21 bethanechol chloride 50 mg tablet 50 mg PO TID 30 Days #90 tab 04/19/21 carbamazepine 200 mg tablet 500 mg PO BID 30 Days #150 tab 04/19/21 clonazepam 0.5 mg tablet 0.5 mg PO BID 30 Days #60 tab 04/19/21 docusate sodium 100 mg capsule 100 mg PO BID PRN 30 Days #60 cap 04/19/21 haloperidol 5 mg tablet See Rx Instructions .ROUTE 04/19/21 .COMPLEX 30 Days #90 tab hydroxyzine HCl 10 mg tablet 10 mg PO TID PRN 30 Days #60 tab 04/19/21 sennosides 8.6 mg capsule (senna) 8.6 mg PO BEDTIME 30 Days #30 cap 04/19/21 tamsulosin 0.4 mg capsule 0.4 mg PO BEDTIME 30 Days #30 cap 04/19/21 trazodone 50 mg tablet 50 mg PO BEDTIME PRN 30 Days #30 04/19/21 tab omeprazole 40 mg capsule,delayed 40 mg PO DAILY 14 Days #14 cap 04/21/21 release polyethylene glycol 3350 17 17 g PO DAILY 14 Days #238 g 04/21/21 gram/dose oral powder (Miralax) Allergies Allergy/AdvReac Type Severity Reaction Status Date / Time No Known Allergies Allergy Unknown UNKNOWN Verified 04/08/21 14:35 [NO KNOWN ALLERGIES] Review of Systems Review of Systems: Pertinent positives and negatives as stated in HPI 10 point review of systems is otherwise negative. PMFSH Past Medical History Source: nursing notes reviewed Medical History Anxiety Back pain Benign prostatic hyperplasia with lower urinary tract symptoms Bipolar 1 disorder Constipation Mood disorder Personal history of nicotine dependence Pure hypercholesterolemia Schizoaffective disorder, bipolar type Thought disorder Tubular adenoma of colon (~2018) Surgical History History of colonoscopy (~04/2019) History of open reduction and internal fixation (ORIF) procedure (~08/2018) History of prostate surgery (~04/2019) Family History Family History Father Lung cancer BPH (benign prostatic hyperplasia) Mother Dementia Brother Myocardial infarction Other Mental health problem Substance abuse Social History Social History Household Members: None Housing: Assisted Living Facility Housing Other:: retirement Do you presently have visiting nurse or other home services: No Alcohol intake: never Patient Tobacco Use Status: Current everyday Tobacco user Tobacco use type: Cigarette Cigarette Packs Per Day: 1 Cigarettes Per Day: 20.0 Years Smoked: 10 Second Hand Smoke Exposure: Yes Advance Directives: No Advance Directives Information Provided: Yes service: No Current occupational status: employed Current occupation: [employer] Sexual orientation: Decline to Answer Physical Exam Vital Signs: Vital Signs: Last Vital Signs Temp 98.1 F 05/15/21 05:22 Pulse 96 05/15/21 05:22 Resp 20 05/15/21 05:22 BP 120/76 05/15/21 05:22 Pulse Ox 94 05/15/21 05:22 BMI result Body Mass Index 22.1 VITAL SIGNS: Reviewed. GENERAL: Well developed, well nourished, in no acute distress. HEAD: Normocephalic/atraumatic EYES: PERRLA, EOMI LUNGS: Normal breath sounds. SpO2<94> CARDIOVASCULAR: Regular rate and rhythm without noted murmurs ABDOMEN: Soft, non-tender, non-distended with bowel sounds. NEUROLOGIC: Alert and oriented x 4, no uncontrolled movements noted Course Course Course Narrative: 55-year-old male with history and clinical presentation request for being tested after started on Haldol, but denies any uncontrolled movements. Discharge Plan Discharge Clinical Impression: Anxiety Patient Disposition: Elopement Prescriptions: No Action loratadine 10 mg tablet 10 mg PO DAILY PRN (Reason: allergy symptoms) 30 Days Qty: 30 RF: 4 Thera-M 9 mg iron-400 mcg tablet 1 tab PO DAILY Qty: 30 RF: 5 atorvastatin 10 mg tablet 10 mg PO DAILY Qty: 30 RF: 2 acetaminophen 500 mg tablet 500 mg PO Q4H PRN (Reason: Pain) RF: 0 tramadol 50 mg Tablet 50 mg PO DAILY PRN (Reason: Pain) RF: 0 tamsulosin 0.4 mg Capsule 0.4 mg PO BEDTIME 30 Days Qty: 30 RF: 0 aripiprazole [Abilify] 20 mg Tablet 20 mg PO DAILY 30 Days Qty: 30 RF: 0 clonazepam 0.5 mg Tablet 0.5 mg PO BID 30 Days Qty: 60 RF: 0 haloperidol 5 mg Tablet See Rx Instructions .ROUTE .COMPLEX 30 Days Qty: 90 RF: 0 trazodone 50 mg Tablet 50 mg PO BEDTIME PRN (Reason: Insomnia) 30 Days Qty: 30 RF: 0 docusate sodium 100 mg Capsule 100 mg PO BID PRN (Reason: constipation) 30 Days Qty: 60 RF: 0 carbamazepine 200 mg tablet 500 mg PO BID 30 Days Qty: 150 RF: 0 hydroxyzine HCl 10 mg tablet 10 mg PO TID PRN (Reason: anxiety) 30 Days Qty: 60 RF: 0 senna 8.6 mg capsule 8.6 mg PO BEDTIME 30 Days Qty: 30 RF: 0 bethanechol chloride 50 mg tablet 50 mg PO TID 30 Days Qty: 90 RF: 0 polyethylene glycol 3350 [Miralax] 17 gram/dose powder 17 g PO DAILY 14 Days Qty: 238 RF: 0 omeprazole 40 mg capsule,delayed release(DR/EC) 40 mg PO DAILY 14 Days Qty: 14 RF: 0 Interventions: ED Discharge Assessment Last Done: 05/15/21 07:40 Discharge Date/Time: 05/15/21 07:41
== END 2021-05-15 07:41 | disposition left against medical advice (07) ==
PROVIDERS: Emergency Provider Student in an Organized Health Care Education/Training Program
DX: F41.9 Anxiety disorder, unspecified (principal); F25.0 Schizoaffective disorder, bipolar type
CPT/HCPCS: 99283

== ENCOUNTER → 2021-05-18 13:21 | Outpatient (BNVA) | payer MEDICARE, MEDICAID, SELFPAY | PROVIDERS: Visit Provider Urology | DX: N40.1 Benign prostatic hyperplasia with lower urinary tract symptoms (principal); N13.8 Other obstructive and reflux uropathy; N31.9 Neuromuscular dysfunction of bladder, unspecified | CPT/HCPCS: 51798; 99212 ==

== ENCOUNTER 2021-05-26 02:37 | Emergency (ER) | payer MEDICARE, MEDICAID, SELFPAY ==
[2021-05-26 02:49] VITALS: BMI 24.9
[2021-05-26 03:00] VITALS: BP 121/84; PULSE 85; RESP 16; TEMP 36.8; O2SAT 98
[2021-05-26 03:14] LABS: Appearance Urine CLEAR; Color Urine YELLOW; Glucose Urine UA NEG (NEG); Leukocyte Esterase Urine NEG (NEG); Nitrite Urine NEG (NEG); Urine Blood NEG (NEG); Urine Ketones NEG (NEG); Urine Protein NEG (NEG-TRACE)
[2021-05-26 03:20] LABS: Mucus Urine TRACE /LPF; Squamous Epithelial Cell Urine 1+ /LPF; WBC Urine 0-2 /HPF (0-4)
[2021-05-26 03:26] LABS: COVID-19 Test Negative (Negative)
[2021-05-26 03:32] LABS: Amphetamine Screen Urine Not Detected (Not Detect); Barbiturates, Urine Not Detected (Not Detect); Benzodiazepines Screen Urine Not Detected (Not Detect); Cannabinoid Screen Urine Not Detected (Not Detect); Cocaine Screen Urine Not Detected (Not Detect); Fentanyl, urine Not Detected (Not Detect); Opiate Screen Urine Not Detected (Not Detect); Phencyclidine Screen Urine Not Detected (Not Detect)
--- NOTE | 2021-05-26 06:22 | PC.NURSE ---
Patient slept through the night, no distress observed/reported, behavior appropriate and non-concerning at this time, med rec completed/pending providers approval, VSS, BHN referral completed/confirmed by Kim, patient will be evaluated in the morning, will continue to monitor.
--- NOTE | 2021-05-26 06:24 | ED_ITS ---
HPI - Psych General Chief Complaint: Psychiatric Symptoms Stated Complaint: crisis Time Seen by Provider: 05/26/21 06:27 Source: patient Mode of arrival: ambulatory Limitations: no limitations History of Present Illness HPI Narrative: Patient with schizoaffective disorder been to our ED multiple times for not feeling safe at this time patient comes here for similar complaints does not feel safe at her fpc or in the neighborhood. Denies any hallucinations no suicidal ideation Related Data Home Medications Medication Instructions Recorded Confirmed aripiprazole 20 mg tablet 1 tab PO BEDTIME PRN 05/26/21 05/26/21 atorvastatin 10 mg tablet 1 tab PO DAILY 05/26/21 05/26/21 bethanechol chloride 50 mg tablet 1 tab PO TID 05/26/21 05/26/21 carbamazepine 200 mg tablet 1 tab PO BID 05/26/21 05/26/21 clonazepam 0.5 mg tablet 1 tab PO BID PRN 05/26/21 05/26/21 haloperidol 2 mg tablet 1 tab PO BEDTIME 05/26/21 05/26/21 hydroxyzine HCl 10 mg tablet 1 tab PO TID 05/26/21 05/26/21 tamsulosin 0.4 mg capsule 1 cap PO BEDTIME 05/26/21 05/26/21 trazodone 50 mg tablet 1 tab PO BEDTIME PRN 05/26/21 05/26/21 Allergies Allergy/AdvReac Type Severity Reaction Status Date / Time No Known Allergies Allergy Unknown UNKNOWN Verified 05/18/21 13:26 [NO KNOWN ALLERGIES] Review of Systems Review of Systems: Yes all other systems are reviewed and are negative PMFSH Past Medical History Medical History Anxiety Back pain Benign prostatic hyperplasia with lower urinary tract symptoms Bipolar 1 disorder Constipation Mood disorder Personal history of nicotine dependence Pure hypercholesterolemia Schizoaffective disorder, bipolar type Thought disorder Tubular adenoma of colon (~2018) Surgical History History of colonoscopy (~04/2019) History of open reduction and internal fixation (ORIF) procedure (~08/2018) History of prostate surgery (~04/2019) Family History Family History Father Lung cancer BPH (benign prostatic hyperplasia) Mother Dementia Brother Myocardial infarction Other Mental health problem Substance abuse Social History Social History Household Members: None Housing: Assisted Living Facility Housing Other:: fpc Do you presently have visiting nurse or other home services: No Alcohol intake: never Patient Tobacco Use Status: Current everyday Tobacco user Tobacco use type: Cigarette Cigarette Packs Per Day: 1 Cigarettes Per Day: 20.0 Years Smoked: 10 Second Hand Smoke Exposure: Yes Advance Directives: No service: No Current occupational status: employed Current occupation: [employer] Sexual orientation: Decline to Answer Physical Exam Vital Signs: Vital Signs: Last Vital Signs Temp 98.2 F 05/26/21 03:00 Pulse 85 05/26/21 03:00 Resp 16 05/26/21 03:00 BP 121/84 05/26/21 03:00 Pulse Ox 98 05/26/21 03:00 BMI result Body Mass Index 24.9 Appearance: Alert. Oriented X3. No acute distress. Eyes: PERRLA, No Nystagmus ENT: Pharynx normal. Oral Mucosa moist Neck: Normal inspection. Neck supple. CVS: Normal heart rate and rhythm. Pulses normal. Respiratory: No respiratory distress. Equal air entry bilateral, no wheezing/rales/rhonchi Abdomen: Soft and nontender. Bowel sounds are present, no mass palpable Skin: Skin warm and dry. Normal skin color. Normal skin turgor. Extremities: No lower extremity edema. No calf tenderness psych: Hallucinations or delusions mood stable at this time denies suicidal ideation or homicidal feeling Neuro: Oriented X 3. No motor deficit. No sensory deficit.No cerebellar signs , cranial nerves II-XII intact MDM - Psych MDM Narrative Medical decision making narrative: Pending crisis for further evaluation Lab Data Attestation: I reviewed the patient's lab results. Labs: Lab Results 05/26/21 05/26/21 05/26/21 Range/Units 03:03 03:03 03:03 Urine Color YELLOW Urine Appearance CLEAR Urine pH 6.0 (5.0-8.0) Ur Specific [place] 1.010 (1.005-1.025) Urine Protein NEG (NEG-TRACE) MG/DL Urine Glucose (UA) NEG (NEG) MG/DL Urine Ketones NEG (NEG) MG/DL Urine Blood NEG (NEG) Urine Nitrite NEG (NEG) Ur Leukocyte Esterase NEG (NEG) Urine RBC 1-4 (0) /HPF Urine WBC 0-2 (0-4) /HPF Ur Squamous Epith Cells 1+ /LPF Urine Bacteria NONE /LPF Urine Mucus TRACE /LPF Urine Opiates Screen Not Detected (Not Detect) Urine Fentanyl Screen Not Detected (Not Detect) Ur Barbiturates Screen Not Detected (Not Detect) Ur Phencyclidine Scrn Not Detected (Not Detect) Ur Amphetamines Screen Not Detected (Not Detect) U Benzodiazepines Scrn Not Detected (Not Detect) Urine Cocaine Screen Not Detected (Not Detect) U Marijuana (THC) Screen Not Detected (Not Detect) COVID-19 (LEE) Negative (Negative) COVID-19 Clin Com See Note Discharge Plan Discharge Clinical Impression: Chronic schizophrenia, Acute anxiety Prescriptions: No Action carbamazepine 200 mg tablet 1 tab PO BID RF: 0 bethanechol chloride 50 mg tablet 1 tab PO TID RF: 0 aripiprazole 20 mg tablet 1 tab PO BEDTIME PRN (Reason: Anxiety) RF: 0 clonazepam 0.5 mg tablet 1 tab PO BID PRN (Reason: Anxiety) RF: 0 hydroxyzine HCl 10 mg tablet 1 tab PO TID RF: 0 atorvastatin 10 mg tablet 1 tab PO DAILY RF: 0 haloperidol 2 mg tablet 1 tab PO BEDTIME RF: 0 trazodone 50 mg tablet 1 tab PO BEDTIME PRN (Reason: insomnia) RF: 0 tamsulosin 0.4 mg capsule 1 cap PO BEDTIME RF: 0
--- NOTE | 2021-05-26 07:21 | PC.NURSE ---
patient appears to remain asleep at present, respirations are even and unlabored, patient appears in no distress
[2021-05-26 07:52] VITALS: BP 136/81; PULSE 80; RESP 16; TEMP 36.7; O2SAT 97
--- NOTE | 2021-05-26 08:46 | PC.NURSE ---
staff from [facility] called to inquire about presentation of clients arrival. staff [place] phone number: [phone]
--- NOTE | 2021-05-26 12:42 | MHC.CARE ---
CARE Team social media analyst is stopped by pt in the Pod who asks to talk. Pt is well known to TW. Pt is distressed that he might miss his outpatient psychiatry appointment, so CARE Team agrees to work with pt to determine if it is an appropriate plan for him to discharge for his outpatient psychiatry appointment with Oskar Cunningham from [facility]. Pt states that he walked to the ED last night due to a lot of uncomfortableness. He reports vague feelings of being unsafe but is not able to specifically identify what is causing this. Pt has a hx of significant anxiety, which has often precipitated ED visits in the past. Within the last couple of months, pt was admitted to in psych due to increased psychotic sx. This was the first admission that pt had in many years. Pt denies SI/HI. When prompted, pt discloses that he is hearing voices that cause him to feel angry, but denies that AH are command in nature. Pt feels that he can manage his anger at this time. He also reports experiencing sensations that are also upsetting to him. Pt states that he does not want to be psychiatrically admitted at this time and would prefer to continue working with his outpatient psych provider. Pt agrees that if outpatient provider feels he needs to be admitted for medication changes or if symptoms worsen, he will return for hospitalization. In the past, pt has displayed insight when he is needing admission. CARE Team speaks with Nori Boyd, group underwriter from [facility] who has known pt for a long time. Nori states that there have been ongoing [facility], [facility] have been no safety concerns. She identifies that pt has been observed to be hallucinating and speaking with people in his room who are not there. He has expressed a belief that there are people who want to harm him. Nori states that pt has been working closely with psych provider and there have been recent med changes. Nori states that pt came to the ED on his own accord and she feels that staff can support pt to attend his psychiatric appointment today. CARE Team provides Nori with the CARE Team's phone number. Nori states that staff will attend the psychiatry appointment today with pt, and they will communicate with CARE Team if outpatient provider recommends inpatient admission. Current presentation does not appear to warrant involuntary admission at this time. This plan is discussed with DAMARI Case, who agrees with d/c to attend outpatient appointment. Pt resides in a 24 hr staffed program and sas clinical programmer feels that they can keep pt safe at this time and monitor for worsening sx.
== END 2021-05-26 13:22 | disposition home or self-care (01) ==
PROVIDERS: Emergency Provider Internal Medicine; PCP Internal Medicine
DX: F25.9 Schizoaffective disorder, unspecified (principal); F41.1 Generalized anxiety disorder; F43.0 Acute stress reaction; Z20.822 Contact with and (suspected) exposure to COVID-19; Z79.899 Other long term (current) drug therapy
CPT/HCPCS: 36415; 80307; 81001; 87635; 99283; 99284

== ENCOUNTER → 2021-08-03 13:19 | Outpatient (BNVA) | payer MEDICARE, MEDICAID, SELFPAY | PROVIDERS: PCP Internal Medicine | DX: N40.1 Benign prostatic hyperplasia with lower urinary tract symptoms (principal); N13.8 Other obstructive and reflux uropathy; N31.9 Neuromuscular dysfunction of bladder, unspecified; Z79.899 Other long term (current) drug therapy | CPT/HCPCS: 51798; 99212 ==

== ENCOUNTER 2021-10-14 03:32 | Emergency (ER) | payer MEDICARE, MEDICAID, SELFPAY ==
[2021-10-14 03:42] VITALS: BP 148/80; PULSE 84; RESP 18; TEMP 36.6; O2SAT 97; BMI 24.3
--- NOTE | 2021-10-14 04:18 | PC.NURSE ---
Bladder scanned: 973 cc Per pt, has been having trouble emptying bladder completely Pt self-caths at home to empty bladder but pt states ran out of supplies. Pt f/u with urology, Dr. Morales. 16 Fr schafer cath placed with Daniele business technology teacher, at bedside Pt tolerated well Clear, pale yellow urine output Urine sample collected, labeled, and sent
[2021-10-14 04:21] LABS: Appearance Urine CLEAR; Color Urine YELLOW; Glucose Urine UA NEG (NEG); Leukocyte Esterase Urine 2+ (NEG); Nitrite Urine NEG (NEG); Specific Gravity - Urine <= 1.005 (1.005-1.025); UACC Culture Trigger YES; Urine Blood TRACE (NEG); Urine Ketones NEG (NEG); Urine Protein NEG (NEG-TRACE)
--- NOTE | 2021-10-14 04:23 | ED_ITS ---
HPI - General Adult General Chief complaint: General Medical Stated complaint: needs catheter? Time Seen by Provider: 10/14/21 03:46 Source: patient Mode of arrival: ambulatory History of Present Illness HPI narrative: 55-year-old male who presents with significant abdominal /suprapubic discomfort and states that he is been unable to urinate for over a day and has been unable to self-catheterize as usual because he has run out of urinary catheters. Patient states that the facility has not replaced the catheters. Patient states that he otherwise has a follow-up appointment with Urology and denies any fever chills. Related Data Home Medications Medication Instructions Recorded Confirmed aripiprazole 20 mg tablet 1 tab PO BEDTIME PRN 05/26/21 05/26/21 bethanechol chloride 50 mg tablet 1 tab PO TID 05/26/21 05/26/21 carbamazepine 200 mg tablet 1 tab PO BID 05/26/21 05/26/21 clonazepam 0.5 mg tablet 1 tab PO BID PRN 05/26/21 05/26/21 haloperidol 2 mg tablet 1 tab PO BEDTIME 05/26/21 05/26/21 hydroxyzine HCl 10 mg tablet 1 tab PO TID 05/26/21 05/26/21 tamsulosin 0.4 mg capsule 1 cap PO BEDTIME 05/26/21 05/26/21 trazodone 50 mg tablet 1 tab PO BEDTIME PRN 05/26/21 05/26/21 Previous Rx's Medication Instructions Recorded atorvastatin 10 mg tablet 10 mg PO DAILY 30 Days #30 tab 08/26/21 omeprazole 40 mg capsule,delayed 40 mg PO DAILY 30 Days #30 cap 08/26/21 release nitrofurantoin 100 mg PO Q12H 7 Days #14 cap 10/14/21 monohydrate/macrocrystals 100 mg capsule (Macrobid) Allergies Allergy/AdvReac Type Severity Reaction Status Date / Time No Known Allergies Allergy Unknown UNKNOWN Verified 08/03/21 13:26 [NO KNOWN ALLERGIES] Review of Systems Review of Systems: Pertinent positives and negatives as stated in HPI 10 point review of systems is otherwise negative. PMFSH Past Medical History Source: nursing notes reviewed Medical History Anxiety Back pain Benign prostatic hyperplasia with lower urinary tract symptoms Bipolar 1 disorder Constipation Mood disorder Personal history of nicotine dependence Pure hypercholesterolemia Schizoaffective disorder, bipolar type Thought disorder Tubular adenoma of colon (~2018) Surgical History History of colonoscopy (~04/2019) History of open reduction and internal fixation (ORIF) procedure (~08/2018) History of prostate surgery (~04/2019) Family History Family History Father Lung cancer BPH (benign prostatic hyperplasia) Mother Dementia Brother Myocardial infarction Other Mental health problem Substance abuse Social History Social History Household Members: None Housing: Assisted Living [facility] Housing Other[facility] Do you presently have visiting nurse or other home services: No Alcohol intake: never Patient Tobacco Use Status: Current everyday Tobacco user Tobacco use type: Cigarette Cigarette Packs Per Day: 1 Cigarettes Per Day: 20.0 Years Smoked: 10 Second Hand Smoke Exposure: Yes Advance Directives: No Advance Directives Information Provided: Yes service: No Current occupational status: employed Current occupation: [employer] Sexual orientation: Decline to Answer Physical Exam ED Vital Signs: Vital Signs - 24 hr 10/14/21 03:42 10/14/21 05:09 Temperature 97.9 F 98.2 F Pulse Rate 84 78 Respiratory Rate 18 16 Blood Pressure 148/80 H 138/76 Pulse Oximetry 97 99 BMI result Body Mass Index 24.3 VITAL SIGNS: Reviewed. GENERAL: Well developed, well nourished, in no acute distress. HEAD: Normocephalic/atraumatic EYES: PERRLA, EOMI EARS: Ext canals without abnormality OROPHARYNX: no oral lesions noted, posterior pharynx clear LUNGS: Normal breath sounds. No adventitious sounds or accessory muscle use. SpO2<97> CARDIOVASCULAR: Regular rate and rhythm without noted murmurs ABDOMEN: Soft, Discomfort and firmness noted over lower abdomen, non-distended with bowel sounds. NEUROLOGIC: Alert and oriented x 3. Strength and sensation to light touch were grossly intact x 4. Course Course Course Narrative: 55-year-old male with history and clinical presentation consistent with urinary retention, will have Santos catheter placed stating urine sample to ensure no underlying infection. Otherwise patient will be discharged home with a Santos catheter and instructions to follow-up with his urologist as scheduled. On review of all investigations patient had a Santos catheter placed with good return and urine and on review of the results it is evidence of a UTI for which patient received initial antibiotics here and then was discharged with remaining course. Patient has a follow-up appoint with Urology and was given all instructions prior to discharge. Medical Decision Making Lab Data Labs: Lab Results 10/14/21 Range/Units 04:16 Urine Color YELLOW Urine Appearance CLEAR Urine pH 7.0 (5.0-8.0) Ur Specific [place] <= 1.005 (1.005-1.025) Urine Protein NEG (NEG-TRACE) MG/DL Urine Glucose (UA) NEG (NEG) MG/DL Urine Ketones NEG (NEG) MG/DL Urine Blood TRACE (NEG) Urine Nitrite NEG (NEG) Ur Leukocyte Esterase 2+ H (NEG) Urine RBC 1-4 (0) /HPF Urine WBC 15-29 H (0-4) /HPF Ur Squamous Epith Cells NONE /LPF Urine Bacteria TRACE /LPF Discharge Plan Discharge Clinical Impression: Urinary retention, Acute UTI Patient Disposition: Home, Self-Care Instructions: Urinary Retention in Men (ED), Urinary Tract Infection in Men (ED), Santos Catheter Placement and Care (ED) Additional Instructions: 1. Resume all home medications as prescribed. 2. You have been prescribed an antibiotic for your urinary tract infection and you should take complete the entire course. 3. Follow-up with Urology by calling the office in the morning to schedule your follow-up appointment. Return to the ER for worsening symptoms. Prescriptions: New nitrofurantoin monohyd/m-cryst [Macrobid] 100 mg capsule 100 mg PO Q12H 7 Days Qty: 14 0RF Rx Instructions: must administer with a meal/food No Action atorvastatin 10 mg tablet 10 mg PO DAILY 30 Days Qty: 30 0RF omeprazole 40 mg capsule,delayed release(DR/EC) 40 mg PO DAILY 30 Days Qty: 30 2RF carbamazepine 200 mg tablet 1 tab PO BID 0RF bethanechol chloride 50 mg tablet 1 tab PO TID 0RF aripiprazole 20 mg tablet 1 tab PO BEDTIME PRN (Reason: Anxiety) 0RF clonazepam 0.5 mg tablet 1 tab PO BID PRN (Reason: Anxiety) 0RF hydroxyzine HCl 10 mg tablet 1 tab PO TID 0RF haloperidol 2 mg tablet 1 tab PO BEDTIME 0RF trazodone 50 mg tablet 1 tab PO BEDTIME PRN (Reason: insomnia) 0RF tamsulosin 0.4 mg capsule 1 cap PO BEDTIME 0RF Referrals: Dk Rodriguez MD [Primary Care Provider] - Keon Liu MD [Physician] -
[2021-10-14 04:33] LABS: Bacteria Urine TRACE /LPF
[2021-10-14 05:09] VITALS: BP 138/76; PULSE 78; RESP 16; TEMP 36.8; O2SAT 99
[2021-10-14] MEDS: Nitrofurantoin Monohyd/M-Cryst 100 MG CAPSULE PO (05:46)
== END 2021-10-14 05:53 | disposition home or self-care (01) ==
PROVIDERS: Emergency Provider Student in an Organized Health Care Education/Training Program; PCP Internal Medicine
DX: R33.9 Retention of urine, unspecified (principal); N39.0 Urinary tract infection, site not specified
CPT/HCPCS: 51702; 51798; 81001; 87086; 87186; 99284

== ENCOUNTER 2021-10-14 21:28 | Emergency (ER) | payer MEDICARE, MEDICAID, SELFPAY ==
[2021-10-14 22:36] VITALS: BP 123/88; PULSE 86; RESP 16; TEMP 36.6; O2SAT 96; BMI 24.3
[2021-10-15 01:42] VITALS: BP 119/83; PULSE 76; RESP 16; TEMP 36.6; O2SAT 98
--- NOTE | 2021-10-15 01:43 | ED.MALEGU ---
HPI - Male Genitourinary General Chief complaint: Urogenital-Male Stated complaint: schafer catheter pain Time Seen by Provider: 10/15/21 01:38 Source: patient Mode of arrival: ambulatory Limitations: no limitations History of Present Illness HPI Narrative: Patient comes emergency room complaining of irritation on the tip of his penis. Yesterday, a Schafer catheter was inserted for urinary retention. Patient states that every time that he walks, the Schafer catheter bothers him. Patient was started on antibiotics/Macrobid yesterday. Patient denies fever or chills, no dysuria, no back pain/flank pain Related Data Home Medications Medication Instructions Recorded Confirmed aripiprazole 20 mg tablet 1 tab PO BEDTIME PRN 05/26/21 05/26/21 bethanechol chloride 50 mg tablet 1 tab PO TID 05/26/21 05/26/21 carbamazepine 200 mg tablet 1 tab PO BID 05/26/21 05/26/21 clonazepam 0.5 mg tablet 1 tab PO BID PRN 05/26/21 05/26/21 haloperidol 2 mg tablet 1 tab PO BEDTIME 05/26/21 05/26/21 hydroxyzine HCl 10 mg tablet 1 tab PO TID 05/26/21 05/26/21 tamsulosin 0.4 mg capsule 1 cap PO BEDTIME 05/26/21 05/26/21 trazodone 50 mg tablet 1 tab PO BEDTIME PRN 05/26/21 05/26/21 Previous Rx's Medication Instructions Recorded atorvastatin 10 mg tablet 10 mg PO DAILY 30 Days #30 tab 08/26/21 omeprazole 40 mg capsule,delayed 40 mg PO DAILY 30 Days #30 cap 08/26/21 release nitrofurantoin 100 mg PO Q12H 7 Days #14 cap 10/14/21 monohydrate/macrocrystals 100 mg capsule (Macrobid) Allergies Allergy/AdvReac Type Severity Reaction Status Date / Time No Known Allergies Allergy Unknown UNKNOWN Verified 08/03/21 13:26 [NO KNOWN ALLERGIES] Review of Systems Review of Systems: Constitutional : No Weight loss, No Fever, No Chills, No Night Sweats, No Fatigue, No Malaise ENT/Mouth : No Hearing loss, No Ear Pain, No Nasal Congestion, No Sinus Pain, No Hoarseness, No sore throat, No Rhinorrhea, No Swallowing Difficulty Eyes: No Eye Pain, No Swelling, No Redness, No Foreign Body, No Discharge, No Vision Changes Cardiovascular : No Chest Pain, No SOB, No Dyspnea on Exertion, No Orthopnea, No Edema, No Palpitations Respiratory : No Cough, No Sputum, No Wheezing, No Smoke Exposure, No Dyspnea Gastrointestinal : No Nausea, No Vomiting, No Diarrhea, No Constipation, No abdominal Pain, No Hematochezia, No Melena Genitourinary : Complaining of distal urethral irritation from a Schafer catheter, No Dysuria, No Urinary Frequency, No Hematuria, No Urinary Incontinence, No Urgency, No Flank Pain, No Urinary Flow Changes, No Hesitancy Musculoskeletal : No joint pain, No Myalgias, No Joint Swelling Skin : No Skin Lesions, No rash Neuro : No Weakness, No Numbness, No Paresthesias, No Loss of Consciousness, No Dizziness, No Headache Psych : No Anxiety/Panic, No Depression, No SI/HI/AH/VH, No Social Issues, Heme/Lymph: No Bruising, No Bleeding,No Lymphadenopathy Endocrine : No Polyuria, No Polydipsia, No Temperature Intolerance [facility] Past Medical History Medical History Anxiety Back pain Benign prostatic hyperplasia with lower urinary tract symptoms Bipolar 1 disorder Constipation Mood disorder Personal history of nicotine dependence Pure hypercholesterolemia Schizoaffective disorder, bipolar type Thought disorder Tubular adenoma of colon (~2018) Surgical History History of colonoscopy (~04/2019) History of open reduction and internal fixation (ORIF) procedure (~08/2018) History of prostate surgery (~04/2019) Family History Family History Father Lung cancer BPH (benign prostatic hyperplasia) Mother Dementia Brother Myocardial infarction Other Mental health problem Substance abuse Social History Social History Household Members: None Housing: Assisted Living Facility Housing Other:: [facility] Do you presently have visiting nurse or other home services: No Alcohol intake: never Patient Tobacco Use Status: Current everyday Tobacco user Tobacco use type: Cigarette Cigarette Packs Per Day: 1 Cigarettes Per Day: 20.0 Years Smoked: 10 Second Hand Smoke Exposure: Yes Advance Directives: No service: No Current occupational status: employed Current occupation: [employer] Sexual orientation: Decline to Answer Physical Exam Vital Signs: Vital Signs: Last Vital Signs Temp 97.9 F 10/14/21 22:36 Pulse 86 10/14/21 22:36 Resp 16 10/14/21 22:36 BP 123/88 10/14/21 22:36 Pulse Ox 96 10/14/21 22:36 BMI result Body Mass Index 24.3 Const: Other: Appearance: Alert. Oriented X3. No acute distress. Eyes: Pupils equal, round and reactive to light. ENT: Pharynx normal. Neck: Normal inspection. Neck supple. No lymph nodes noted. No crepitus CVS: Normal heart rate and rhythm. Pulses normal. Normal S1 and S2 Respiratory: No respiratory distress. Breath sounds normal. No Wheezing. No rales Abdomen: Soft and nontender. No rigidity. No distention. : Erythema at the tip of the penis Skin: Skin warm and dry. Normal skin color. Normal skin turgor. Extremities: No lower extremity edema. No Lacerations. No Rash Neuro: Oriented X 3. No motor deficit. No sensory deficit. Moving all extremities. No slurred speech. CN 2 through 12 grossly intact Psych: calm, cooperative, normal affect Course Course Course Narrative: Seems that the symptoms are worse when the patient walks. Patient does have a fairly long Schafer catheter. We are going to make the tubing shorter, the Schafer itself is working well. Patient has an appointment pending with urology. Discharge Plan Discharge Clinical Impression: Schafer catheter problem Patient Disposition: Home, Self-Care Instructions: Schafer Catheter Placement and Care (ED) Additional Instructions: Continue taking your antibiotics, please follow-up with your urologist as scheduled. Please follow-up with your primary care physician tomorrow. If you have any worsening or new symptoms, please return to the emergency room or call 911 Prescriptions: No Action atorvastatin 10 mg tablet 10 mg PO DAILY 30 Days Qty: 30 0RF omeprazole 40 mg capsule,delayed release(DR/EC) 40 mg PO DAILY 30 Days Qty: 30 2RF carbamazepine 200 mg tablet 1 tab PO BID 0RF bethanechol chloride 50 mg tablet 1 tab PO TID 0RF aripiprazole 20 mg tablet 1 tab PO BEDTIME PRN (Reason: Anxiety) 0RF clonazepam 0.5 mg tablet 1 tab PO BID PRN (Reason: Anxiety) 0RF hydroxyzine HCl 10 mg tablet 1 tab PO TID 0RF haloperidol 2 mg tablet 1 tab PO BEDTIME 0RF trazodone 50 mg tablet 1 tab PO BEDTIME PRN (Reason: insomnia) 0RF tamsulosin 0.4 mg capsule 1 cap PO BEDTIME 0RF nitrofurantoin monohyd/m-cryst [Macrobid] 100 mg capsule 100 mg PO Q12H 7 Days Qty: 14 0RF Rx Instructions: must administer with a meal/food
[2021-10-15 02:00] VITALS: BP 133/84; PULSE 82; RESP 16; O2SAT 97
== END 2021-10-15 02:26 | disposition home or self-care (01) ==
PROVIDERS: Emergency Provider Emergency Medicine; PCP Internal Medicine
DX: T83.098A Other mechanical complication of other urinary catheter, initial encounter (principal); R33.9 Retention of urine, unspecified; Y84.6 Urinary catheterization as the cause of abnormal reaction of the patient, or of later complication, without mention of misadventure at the time of the procedure; Y92.9 Unspecified place or not applicable
CPT/HCPCS: 99283

== ENCOUNTER 2021-10-18 23:26 | Emergency (ER) | payer MEDICARE, MEDICAID, SELFPAY ==
[2021-10-18 23:38] VITALS: BMI 23.1
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
[2021-10-18 23:55] VITALS: BP 123/79; PULSE 83; RESP 17; TEMP 36.8; O2SAT 97
[2021-10-19 00:14] LABS: Appearance Urine CLEAR; Color Urine YELLOW; Glucose Urine UA NEG (NEG); Leukocyte Esterase Urine 1+ (NEG); Nitrite Urine NEG (NEG); Specific Gravity - Urine 1.015 (1.005-1.025); Urine Blood 3+ (NEG); Urine Ketones 15 MG/DL (NEG); Urine Protein 1+ MG/DL (NEG-TRACE)
[2021-10-19 00:22] LABS: MANUAL DIFF FLAG NO
[2021-10-19 00:24] LABS: Basophils Absolute Auto 0.1 X10*3/uL (0.0-0.2); Basophils Percent Auto 0.7 % (0-2); Eosinophils Absolute Auto 0.2 X10*3/uL (0.0-0.4); Eosinophils Percent Auto 2.5 % (0-4); Hematocrit 34.5 % (42.0-52.0); Hemoglobin 12.2 g/dl (14.0-18.0); Imm Gran Abs Auto 0.03 X10*3/uL (0.00-0.03); Imm Gran Pct Auto 0.3 % (0.0-0.4); Lymphocytes Absolute Auto 1.5 X10*3/uL (1.2-4.9); Lymphocytes Percent Auto 16.9 % (20-40); Mean Corpuscular HGB Conc 35.4 g/dl (31.0-36.0); Mean Corpuscular Hemoglobin 32.4 pg (27.0-33.0); Mean Corpuscular Volume 91.5 fL (80.0-98.0); Mean Platelet Volume 8.4 fL (9.4-12.4); Monocytes Absolute Auto 0.8 X10*3/uL (0.1-1.2); Monocytes Percent Auto 8.8 % (2-11); Neutrophils Absolute Auto 6.1 x10*3/uL (2.0-8.3); Neutrophils Percent Auto 70.8 % (45-73); Platelet Count 196 X10*3/uL (160-400); Red Blood Count 3.77 X10*6/uL (4.60-5.80); Red Cell Distribution Width 12.5 % (11.0-16.0); White Blood Count 8.6 X10*3/uL (4.8-10.8)
--- NOTE | 2021-10-19 00:24 | PC.NURSE ---
Care team at bedside.
--- NOTE | 2021-10-19 00:30 | MHC.CARE ---
CARE team support requested by ED attending physician for pt who self presented to the ED endorsing elevated anxiety and feeling uncomfortable with staff in his prison. Pt denied SI/HI/AVH and does not appear to be an acute risk for harm to himself or others. Pt reported that he and some other residents in his prison have been struggling with some new staff members, and that he has been trying to get into the Living Room for a couple days to take a break from being in the prison. He shared that he has contacted [facility] twice and a clinician came to the prison to meet with him, but each time the outcome has been that there are no beds available in the Living Room. This grant writer spoke with pt about respite, and how he would have to go through [facility] to get into respite, which he said that he would think about. Pt then spoke at length about a catheter that was recently put in to help with an infection in his bladder and that he is on antibiotics. He expressed that it makes him anxious because he doesn't know how they're going to get the long catheter out of him. Pt feels comfortable returning to the prison this evening, but wants to get his lab results back before leaving. This grant writer will attempt to order pt a Lyft for transport. If no Lyft is available this grant writer will follow up with the charge nurse re: whether he can be accommodated overnight. ED physician updated re: consult.
[2021-10-19 00:32] LABS: Amphetamine Screen Urine Not Detected (Not Detect); Barbiturates, Urine Not Detected (Not Detect); Benzodiazepines Screen Urine Not Detected (Not Detect); Cannabinoid Screen Urine Not Detected (Not Detect); Cocaine Screen Urine Not Detected (Not Detect); Fentanyl, urine Not Detected (Not Detect); Opiate Screen Urine Not Detected (Not Detect); Phencyclidine Screen Urine Not Detected (Not Detect)
[2021-10-19 00:41] LABS: COVID-19 Test Negative (Negative)
[2021-10-19 00:54] LABS: Alanine Aminotransferase 20 U/L (0-40); Albumin Level 3.6 g/dL (3.5-5.0); Alkaline Phosphatase 71 U/L (39-117); Anion Gap 12 (12-20); Aspartate Amino Transferase 33 U/L (5-37); Bilirubin Direct < 0.2 mg/dL (0.0-0.5); Bilirubin Total 0.4 mg/dL (0.0-1.0); Blood Urea Nitrogen 12 mg/dL (9-16); Calcium 8.8 mg/dL (8.4-10.2); Carbon Dioxide 21 mmol/L (22-29); Chloride 97 mmol/L (96-108); Creatinine Clr Calc Pharmacy 104.8; Estimated Glomerular Filt Rate > 60; Glucose Random 145 mg/dL (60-115); Potassium 4.3 mmol/L (3.3-5.1); Sodium 126 mmol/L (135-145); Total Protein 6.1 g/dL (6.5-8.0)
[2021-10-19 00:58] LABS: Bacteria Urine 3+ /LPF; Squamous Epithelial Cell Urine TRACE /LPF
[2021-10-19 01:40] VITALS: BP 133/82; PULSE 72; RESP 14; TEMP 36.6; O2SAT 98
[2021-10-19] MEDS: 0.9 % Sodium Chloride 1,000 ML 999 ML IV (02:01)
[2021-10-19 02:10] LABS: Osmolality Urine 407 mosm/kg (373-1093)
[2021-10-19 02:10] LABS: Osmolality, Serum 267 mosm/kg (281-305)
[2021-10-19 04:49] LABS: Anion Gap 8 (12-20); Blood Urea Nitrogen 10 mg/dL (9-16); Calcium 8.8 mg/dL (8.4-10.2); Carbon Dioxide 27 mmol/L (22-29); Chloride 101 mmol/L (96-108); Creatinine Clr Calc Pharmacy 110.6; Estimated Glomerular Filt Rate > 60; Glucose Random 124 mg/dL (60-115); Potassium 3.6 mmol/L (3.3-5.1); Sodium 132 mmol/L (135-145)
[2021-10-19 06:19] VITALS: BP 138/80; PULSE 83; RESP 20; TEMP 36.5; O2SAT 96
== END 2021-10-19 06:36 | disposition home or self-care (01) ==
PROVIDERS: Hospitalist; Emergency Provider Internal Medicine; PCP Internal Medicine
DX: F25.9 Schizoaffective disorder, unspecified (principal); E22.2 Syndrome of inappropriate secretion of antidiuretic hormone; F31.9 Bipolar disorder, unspecified; F41.1 Generalized anxiety disorder; F43.0 Acute stress reaction; F17.210 Nicotine dependence, cigarettes, uncomplicated; Z20.822 Contact with and (suspected) exposure to COVID-19; Z79.899 Other long term (current) drug therapy; Z71.6 Tobacco abuse counseling
CPT/HCPCS: 36415; 80048; 80076; 80307; 81001; 82436; 83930; 83935; 84300; 85025; 87635; 96360; 99284

== ENCOUNTER 2021-10-23 00:23 | Emergency (ER) | payer MEDICARE, MEDICAID, SELFPAY ==
[2021-10-23 00:52] VITALS: BP 114/87; PULSE 82; RESP 18; TEMP 36.4; O2SAT 97; BMI 24.3
--- NOTE | 2021-10-23 01:16 | ED.MALEGU ---
HPI - Male Genitourinary General Chief complaint: Urogenital-Male Stated complaint: catheter is hurting pt, believes he has infection Source: patient Mode of arrival: ambulatory Limitations: no limitations History of Present Illness HPI Narrative: 55-year-old male presents with penile pain secondary to his urinary catheter. Complaint: penile discharge Onset (ago): day(s) Duration: constant Location: penis Radiation: penis Severity: moderate Severity scale (1-10): 6 Quality: burning Relieving factors: none Exacerbating factors: palpation and movement Context: indwelling catheter Associated symptoms: Reports discharge Related Data Sexually active: No Home Medications Medication Instructions Recorded Confirmed aripiprazole 20 mg tablet 1 tab PO BEDTIME PRN 05/26/21 05/26/21 bethanechol chloride 50 mg tablet 1 tab PO TID 05/26/21 05/26/21 carbamazepine 200 mg tablet 1 tab PO BID 05/26/21 05/26/21 clonazepam 0.5 mg tablet 1 tab PO BID PRN 05/26/21 05/26/21 haloperidol 2 mg tablet 1 tab PO BEDTIME 05/26/21 05/26/21 hydroxyzine HCl 10 mg tablet 1 tab PO TID 05/26/21 05/26/21 tamsulosin 0.4 mg capsule 1 cap PO BEDTIME 05/26/21 05/26/21 trazodone 50 mg tablet 1 tab PO BEDTIME PRN 05/26/21 05/26/21 Previous Rx's Medication Instructions Recorded atorvastatin 10 mg tablet 10 mg PO DAILY 30 Days #30 tab 08/26/21 omeprazole 40 mg capsule,delayed 40 mg PO DAILY 30 Days #30 cap 08/26/21 release nitrofurantoin 100 mg PO Q12H 7 Days #14 cap 10/14/21 monohydrate/macrocrystals 100 mg capsule (Macrobid) levofloxacin 750 mg tablet 750 mg PO Q24H 6 Days #6 tab 10/23/21 Allergies Allergy/AdvReac Type Severity Reaction Status Date / Time No Known Allergies Allergy Unknown UNKNOWN Verified 10/23/21 00:54 [NO KNOWN ALLERGIES] Review of Systems Review of Systems: Constitutional: No Fever, No Chills ENT/Mouth: No Ear Pain, No Hoarseness, No sore throat Eyes: No Eye Pain, No Swelling, No Redness, No Foreign Body Cardiovascular: No Chest Pain, No SOB Respiratory: No Cough, No Dyspnea Gastrointestinal: No Nausea, No Vomiting, No Diarrhea, No abdominal Pain Genitourinary: Positive penile pain, positive Santos, No Dysuria, No Hematuria Musculoskeletal: No joint pain, No Myalgias, No Joint Swelling Skin: No Skin lacerations, No rash Neuro: No Weakness, No Numbness, No Paresthesias, No Loss of Consciousness, No Dizziness, No Headache Psych: No Anxiety/Panic, No Depression Heme/Lymph: no easy bruising, no Lymphadenopathy Endocrine: No Polyuria, No Polydipsia Yes all other systems are reviewed and are negative [facility] Past Medical History Attestation statement: The following information was validated with the patient. Source: old records reviewed Medical History Anxiety Back pain Benign prostatic hyperplasia with lower urinary tract symptoms Bipolar 1 disorder Constipation Mood disorder Personal history of nicotine dependence Pure hypercholesterolemia Schizoaffective disorder, bipolar type Thought disorder Tubular adenoma of colon (~2018) Surgical History History of colonoscopy (~04/2019) History of open reduction and internal fixation (ORIF) procedure (~08/2018) History of prostate surgery (~04/2019) Family History Family History Father Lung cancer BPH (benign prostatic hyperplasia) Mother Dementia Brother Myocardial infarction Other Mental health problem Substance abuse Social History Social History Household Members: None Housing: Assisted Living Facility Housing Other:: long-term Do you presently have visiting nurse or other home services: No Alcohol intake: never Patient Tobacco Use Status: Current everyday Tobacco user Tobacco use type: Cigarette Cigarette Packs Per Day: 1 Cigarettes Per Day: 20.0 Years Smoked: 10 Second Hand Smoke Exposure: Yes Advance Directives: No Advance Directives Information Provided: No service: No Current occupational status: employed Current occupation: [employer] Sexual orientation: Decline to Answer Physical Exam Vital Signs: Vital Signs: Last Vital Signs Temp 97.5 F 10/23/21 00:52 Pulse 82 10/23/21 00:52 Resp 18 10/23/21 00:52 BP 114/87 10/23/21 00:52 Pulse Ox 97 10/23/21 00:52 BMI result Body Mass Index 24.3 Appearance: Alert. Oriented X3. Moderate distress. Eyes: Pupils equal, round and reactive to light. Sclera nonicteric. ENT: Pharynx normal. Neck: Normal inspection. Neck supple. CVS: Normal heart rate and rhythm. Pulses normal. Respiratory: No respiratory distress. Breath sounds normal. Abdomen: Soft and nontender. Genitourinary: Erythema and excoriation to the meatus, purulent drainage noted. No testicular pain or tenderness noted. Skin: Skin warm and dry. Normal skin color. Normal skin turgor. Extremities: No lower extremity edema. Gait well-balanced well coordinated. Neuro: No motor deficit. No sensory deficit. Cranial nerves 2-12 intact. Course Course Course Narrative: 55-year-old male presents with penile pain secondary to his urinary catheter placement. Patient does report masturbating with the Santos in place, noted skin was peeling at his meatus and started picking the skin off. Patient has been pulling on the catheter, and ripping the skin off the head of his penis in front of this [employer]. Purulent drainage had been noted. Will treat with Levaquin and secure the Santos cath in place. Patient is afebrile, vital signs are stable and within normal limits. Appears nontoxic. Does have poor hygiene per baseline, smokes approximately 1-2 packs of cigarettes per day. Will refer back to Urology. Patient verbalized understanding of and agrees to plan of care to discharge home. Verbalized understanding of signs and symptoms indicating need for emergent intervention MDM - Male Genitourinary Differential Diagnosis Differential diagnosis: Likely urinary tract infection and urethritis Medical Records Attestation: I reviewed the patient's medical records. Lab Data Attestation: I reviewed the patient's lab results. Discharge Plan Discharge Clinical Impression: Balanitis, Urethritis Patient Disposition: Home, Self-Care Instructions: [place] (ED) Additional Instructions: You were evaluated for penile pain and abnormal discharge. We are treating you for balantitis and urethritis with Levaquin 750 mg once daily for the next 6 days. Your 1st dose was given to you in the emergency department. Please follow-up with your urologist this week. Thank you for choosing this emergency department for evaluation. Please follow-up with primary care physician as needed. Return to the emergency department for any new, concerning, or worsening symptoms. Prescriptions: New levofloxacin 750 mg tablet 750 mg PO Q24H 6 Days Qty: 6 0RF No Action atorvastatin 10 mg tablet 10 mg PO DAILY 30 Days Qty: 30 0RF omeprazole 40 mg capsule,delayed release(DR/EC) 40 mg PO DAILY 30 Days Qty: 30 2RF carbamazepine 200 mg tablet 1 tab PO BID 0RF bethanechol chloride 50 mg tablet 1 tab PO TID 0RF aripiprazole 20 mg tablet 1 tab PO BEDTIME PRN (Reason: Anxiety) 0RF clonazepam 0.5 mg tablet 1 tab PO BID PRN (Reason: Anxiety) 0RF hydroxyzine HCl 10 mg tablet 1 tab PO TID 0RF haloperidol 2 mg tablet 1 tab PO BEDTIME 0RF trazodone 50 mg tablet 1 tab PO BEDTIME PRN (Reason: insomnia) 0RF tamsulosin 0.4 mg capsule 1 cap PO BEDTIME 0RF nitrofurantoin monohyd/m-cryst [Macrobid] 100 mg capsule 100 mg PO Q12H 7 Days Qty: 14 0RF Rx Instructions: must administer with a meal/food Referrals: Kianna Cavazos FNP [Nurse Practitioner] -
[2021-10-23] MEDS: levoFLOXacin 750 MG TABLET PO (01:50)
[2021-10-23] MEDS: Lidocaine HCl 2 % Urojet 10 ML JEL.PF.APP TOPICAL (01:51)
[2021-10-23 02:42] VITALS: BP 118/84; PULSE 82; RESP 16; TEMP 36.6; O2SAT 96
== END 2021-10-23 03:31 | disposition home or self-care (01) ==
PROVIDERS: Emergency Provider Emergency Medicine
DX: N48.1 Balanitis (principal); N34.2 Other urethritis; F17.210 Nicotine dependence, cigarettes, uncomplicated; Z71.6 Tobacco abuse counseling; Z79.899 Other long term (current) drug therapy
CPT/HCPCS: 99282; 99284

== ENCOUNTER 2021-10-25 21:58 | Emergency (ER) | payer MEDICARE, MEDICAID, SELFPAY ==
[2021-10-25 22:19] VITALS: BP 114/89; PULSE 88; RESP 18; TEMP 36.8; O2SAT 97; BMI 24.3
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
--- NOTE | 2021-10-25 22:59 | PC.NURSE ---
Ian TAN went to check on pt in [facility], pt says he already told her everything. Pt says he has a catheter bag that sucks, pt does not seem to have a schafer catheter.
[2021-10-25 23:41] LABS: MANUAL DIFF FLAG NO
[2021-10-25 23:43] LABS: Basophils Absolute Auto 0.1 X10*3/uL (0.0-0.2); Basophils Percent Auto 1.2 % (0-2); Eosinophils Absolute Auto 0.3 X10*3/uL (0.0-0.4); Eosinophils Percent Auto 5.1 % (0-4); Hematocrit 38.1 % (42.0-52.0); Hemoglobin 13.3 g/dl (14.0-18.0); Imm Gran Abs Auto 0.01 X10*3/uL (0.00-0.03); Imm Gran Pct Auto 0.2 % (0.0-0.4); Lymphocytes Absolute Auto 1.3 X10*3/uL (1.2-4.9); Mean Corpuscular HGB Conc 34.9 g/dl (31.0-36.0); Mean Corpuscular Hemoglobin 32.5 pg (27.0-33.0); Mean Corpuscular Volume 93.2 fL (80.0-98.0); Mean Platelet Volume 7.9 fL (9.4-12.4); Monocytes Absolute Auto 0.7 X10*3/uL (0.1-1.2); Monocytes Percent Auto 13.7 % (2-11); Neutrophils Absolute Auto 2.6 x10*3/uL (2.0-8.3); Neutrophils Percent Auto 53.8 % (45-73); Platelet Count 217 X10*3/uL (160-400); Red Blood Count 4.09 X10*6/uL (4.60-5.80); Red Cell Distribution Width 12.6 % (11.0-16.0); White Blood Count 4.9 X10*3/uL (4.8-10.8)
[2021-10-26 00:04] LABS: Ethanol < 10 mg/dL
[2021-10-26 00:05] LABS: Appearance Urine CLEAR; Color Urine YELLOW; Glucose Urine UA NEG (NEG); Leukocyte Esterase Urine 1+ (NEG); Nitrite Urine NEG (NEG); UACC Culture Trigger YES; Urine Blood 1+ (NEG); Urine Ketones NEG (NEG); Urine Protein NEG (NEG-TRACE)
[2021-10-26 00:08] LABS: Alanine Aminotransferase 17 U/L (0-40); Albumin Level 3.9 g/dL (3.5-5.0); Alkaline Phosphatase 73 U/L (39-117); Anion Gap 10 (12-20); Aspartate Amino Transferase 19 U/L (5-37); Bilirubin Total 0.3 mg/dL (0.0-1.0); Blood Urea Nitrogen 11 mg/dL (9-16); Calcium 9.2 mg/dL (8.4-10.2); Carbon Dioxide 29 mmol/L (22-29); Chloride 98 mmol/L (96-108); Creatinine Clr Calc Pharmacy 111.2; Estimated Glomerular Filt Rate > 60; Glucose Random 104 mg/dL (60-115); Potassium 4.6 mmol/L (3.3-5.1); Sodium 132 mmol/L (135-145); Total Protein 6.2 g/dL (6.5-8.0)
[2021-10-26 00:13] LABS: Bacteria Urine 1+ /LPF; Mucus Urine 1+ /LPF; Squamous Epithelial Cell Urine 1+ /LPF
[2021-10-26 00:18] LABS: Amphetamine Screen Urine Not Detected (Not Detect); Barbiturates, Urine Not Detected (Not Detect); Benzodiazepines Screen Urine Not Detected (Not Detect); Cannabinoid Screen Urine Not Detected (Not Detect); Cocaine Screen Urine Not Detected (Not Detect); Fentanyl, urine Not Detected (Not Detect); Opiate Screen Urine Not Detected (Not Detect); Phencyclidine Screen Urine Not Detected (Not Detect)
--- NOTE | 2021-10-26 01:34 | PC.NURSE ---
[facility] referral made.
[2021-10-26 01:55] VITALS: BP 134/77; PULSE 73; RESP 16; TEMP 36.5; O2SAT 97
[2021-10-26 04:00] VITALS: BP 140/86; PULSE 72; RESP 16; TEMP 36.8; O2SAT 92
[2021-10-26 04:33] LABS: COVID-19 Test Negative (Negative)
--- NOTE | 2021-10-26 05:44 | PC.NURSE ---
Pt woke up and said I'm ready to leave. Ian RN said that he needed to stay for [facility], but pt said he needs to return to his assisted. Ian RN said he would get the doctor.
--- NOTE | 2021-10-26 05:46 | PC.NURSE ---
Katie WETZEL is preparing pt's discharge paperwork.
[2021-10-26 05:51] VITALS: BP 136/72; PULSE 87; RESP 18; TEMP 36.9; O2SAT 96
== END 2021-10-26 05:52 | disposition home or self-care (01) ==
PROVIDERS: Physician Assistant; Emergency Provider Emergency Medicine; PCP Internal Medicine
DX: F41.9 Anxiety disorder, unspecified (principal); F25.0 Schizoaffective disorder, bipolar type; Z20.822 Contact with and (suspected) exposure to COVID-19; E78.00 Pure hypercholesterolemia, unspecified; F17.200 Nicotine dependence, unspecified, uncomplicated; Z79.02 Long term (current) use of antithrombotics/antiplatelets; Z79.899 Other long term (current) drug therapy
CPT/HCPCS: 36415; 80053; 80307; 81001; 81003; 82077; 83735; 85025; 87086; 87635; 99283

== ENCOUNTER 2021-10-28 23:04 | Emergency (ER) | payer MEDICARE, MEDICAID, SELFPAY ==
[2021-10-28 23:24] VITALS: BP 120/78; PULSE 94; RESP 20; TEMP 36.4; O2SAT 98; BMI 22.1
== END 2021-10-29 05:14 | disposition left against medical advice (07) ==
PROVIDERS: Emergency Provider Emergency Medicine
DX: R10.9 Unspecified abdominal pain (principal); K59.00 Constipation, unspecified
CPT/HCPCS: 99281

== ENCOUNTER 2021-11-01 19:33 | Emergency (ER) | payer MEDICARE, MEDICAID, SELFPAY ==
[2021-11-01 19:55] VITALS: BP 103/74; PULSE 91; RESP 18; TEMP 36.8; O2SAT 96; BMI 23.6
== END 2021-11-01 23:16 | disposition left against medical advice (07) ==
PROVIDERS: Emergency Provider Emergency Medicine
DX: K59.00 Constipation, unspecified (principal); R33.9 Retention of urine, unspecified
CPT/HCPCS: 99281

== ENCOUNTER 2021-11-03 22:51 | Emergency (ER) | payer MEDICARE, MEDICAID, SELFPAY ==
--- NOTE | ~2021-11-03 | XR_ITS ---
EXAMINATION: XR ABDOMEN KUB CLINICAL INDICATION: Constipation COMPARISON: 04/21/2021 TECHNIQUE: AP view of the abdomen. FINDINGS: The bowel gas pattern is nonobstructive. Moderate volume of stool is present. There is limited assessment for free air with supine positioning. Multiple calcifications in the pelvis are statistically favored to represent phleboliths. Included lung bases are well-aerated. Multilevel osteophytes are noted in the spine. XR/XR abdomen 1V IMPRESSION: Moderate volume of stool. Nonobstructive bowel gas pattern.
[2021-11-03 22:58] VITALS: BP 110/69; PULSE 96; RESP 18; TEMP 37.2; O2SAT 96; BMI 24.2
--- NOTE | 2021-11-03 23:51 | ED_ITS ---
HPI - Male Genitourinary General Chief complaint: Urogenital-Male Stated complaint: diff urinating and constipation Time Seen by Provider: 11/03/21 23:40 Source: patient Limitations: other (Mental illness) History of Present Illness HPI Narrative: This is a 55-year-old male with a history of schizoaffective disorder were, also has needed to self-catheterize in the past. The patient states that for a period of time he had an indwelling urinary catheter, 16 Iranian but it ?popped?. Patient last self catheterized yesterday. He states that when he has been trying to self catheterize he cannot get the catheter to enter his bladder. Kareem turcios also cleansed constipation for a year, cannot say when he last had a good bowel movement. Patient is a poor historian, and does not answer questions in a complete or sensible fashion. He denies any fever, nausea vomiting, back pain. Has tried Mylanta for constipation Related Data Home Medications Medication Instructions Recorded Confirmed aripiprazole 20 mg tablet 1 tab PO BEDTIME PRN 05/26/21 10/27/21 bethanechol chloride 50 mg tablet 1 tab PO TID 05/26/21 10/27/21 carbamazepine 200 mg tablet 1 tab PO BID 05/26/21 10/27/21 clonazepam 0.5 mg tablet 1 tab PO BID PRN 05/26/21 10/27/21 haloperidol 2 mg tablet 1 tab PO BEDTIME 05/26/21 10/27/21 hydroxyzine HCl 10 mg tablet 1 tab PO TID 05/26/21 10/27/21 tamsulosin 0.4 mg capsule 1 cap PO BEDTIME 05/26/21 10/27/21 trazodone 50 mg tablet 1 tab PO BEDTIME PRN 05/26/21 10/27/21 Previous Rx's Medication Instructions Recorded omeprazole 40 mg capsule,delayed 40 mg PO DAILY 30 Days #30 cap 08/26/21 release levofloxacin 750 mg tablet 750 mg PO Q24H 6 Days #6 tab 10/23/21 atorvastatin 10 mg tablet 10 mg PO DAILY 30 Days #30 tab 10/27/21 polyethylene glycol 3350 17 gram 17 g PO BID PRN #14 ea 11/04/21 oral powder packet (Miralax) Allergies Allergy/AdvReac Type Severity Reaction Status Date / Time No Known Allergies Allergy Unknown UNKNOWN Verified 10/28/21 23:24 [NO KNOWN ALLERGIES] Review of Systems Constitutional: Constitutional: Reports as per HPI and Denies headache(s) Eyes: Eyes: Reports no additional eye complaints ENT: Denies headache(s) Cardiovascular: Cardiovascular: Reports no additional cardiovascular complaint s Respiratory: Respiratory: Reports no additional respiratory complaints Gastrointestinal: Gastrointestinal: Reports constipation Genitourinary: Genitourinary: Denies flank pain Comments: Inability to urinate Musculoskeletal: Musculoskeletal: Denies back pain Neurologic: Denies headache(s) [facility] Past Medical History Medical History Anxiety Back pain Benign prostatic hyperplasia with lower urinary tract symptoms Bipolar 1 disorder Constipation Mood disorder Personal history of nicotine dependence Pure hypercholesterolemia Schizoaffective disorder, bipolar type Thought disorder Tubular adenoma of colon (~2018) Surgical History History of colonoscopy (~04/2019) History of open reduction and internal fixation (ORIF) procedure (~08/2018) History of prostate surgery (~04/2019) Family History Family History Father Lung cancer BPH (benign prostatic hyperplasia) Mother Dementia Brother Myocardial infarction Other Mental health problem Substance abuse Social History Social History Household Members: None Housing: Assisted Living Facility Housing Other:: shelter Do you presently have visiting nurse or other home services: No Alcohol intake: never Patient Tobacco Use Status: Current everyday Tobacco user Tobacco use type: Cigarette Cigarette Packs Per Day: 1 Cigarettes Per Day: 20.0 Years Smoked: 10 e-Cigarette/Vaping Use: Never Used Second Hand Smoke Exposure: Yes Advance Directives: No service: No Current occupational status: employed Current occupation: [employer] Sexual orientation: Decline to Answer Cognitive needs: No Hearing needs: No Vision needs: Yes Physical Exam Vital Signs: Vital Signs: Last Vital Signs Temp 98.9 F 11/03/21 22:58 Pulse 96 11/03/21 22:58 Resp 18 11/03/21 22:58 BP 110/69 11/03/21 22:58 Pulse Ox 96 11/03/21 22:58 BMI result Body Mass Index 24.2 Const: Other: PERRLA Conj [place] Mucous membranes moist Throat clear Neck supple Lungs CTA Heart RRR no murmurs rubs or gallops Abd soft, non tender, non distended; some fullness in the bladder area consistent with moderate bladder distention Extremities no pitting edema Neuro alert and oriented x 3, non focal MDM - Male Genitourinary MDM Narrative Medical decision making narrative: Patient with history of neurogenic bladder, BPH, states he has been having trouble urinating recently. Bladder scan revealed around 600 mL. Santos catheter is being placed. The patient also complained of constipation which he has complained of several times in the past. Will prescribed laxatives. Patient needs to follow-up with his urologist Lab Data Attestation: I reviewed the patient's lab results. Imaging Data Abdominal x-ray: Radiologist's impression: IMPRESSION: Moderate volume of stool. Nonobstructive bowel gas pattern. Discharge Plan Discharge Clinical Impression: Acute on chronic urinary retention, Neurogenic bladder, Constipation Patient Disposition: Home, Self-Care Instructions: Constipation (ED), Urinary Retention in Men (ED), Santos Catheter Placement and Care (ED) Additional Instructions: Follow-up with your urologist. Return for any new or worsened symptoms. Prescriptions: New polyethylene glycol 3350 [Miralax] 17 gram powder in packet 17 g PO BID PRN (Reason: constipation) Qty: 14 0RF No Action omeprazole 40 mg capsule,delayed release(DR/EC) 40 mg PO DAILY 30 Days Qty: 30 2RF atorvastatin 10 mg tablet 10 mg PO DAILY 30 Days Qty: 30 0RF levofloxacin 750 mg tablet 750 mg PO Q24H 6 Days Qty: 6 0RF carbamazepine 200 mg tablet 1 tab PO BID 0RF bethanechol chloride 50 mg tablet 1 tab PO TID 0RF aripiprazole 20 mg tablet 1 tab PO BEDTIME PRN (Reason: Anxiety) 0RF clonazepam 0.5 mg tablet 1 tab PO BID PRN (Reason: Anxiety) 0RF hydroxyzine HCl 10 mg tablet 1 tab PO TID 0RF haloperidol 2 mg tablet 1 tab PO BEDTIME 0RF trazodone 50 mg tablet 1 tab PO BEDTIME PRN (Reason: insomnia) 0RF tamsulosin 0.4 mg capsule 1 cap PO BEDTIME 0RF Referrals: Keon Liu MD [Physician] - 2 days
--- NOTE | 2021-11-04 00:10 | PC.NURSE ---
Bladder scan = [address] Reed made aware. Per verbal order, place schafer. Primary RN made aware
[2021-11-04 02:00] VITALS: BP 142/83; PULSE 77; RESP 18; TEMP 36.6; O2SAT 96
[2021-11-04] MEDS: Lidocaine HCl 2 % Urojet 10 ML JEL.PF.APP TOPICAL (02:56)
--- NOTE | 2021-11-04 03:14 | PC.NURSE ---
Santos catheter placed per MD order, 325 cc urine drained. Urine sample sent to lab. Will monitor.
[2021-11-04 03:15] LABS: Appearance Urine CLEAR; Color Urine YELLOW; Glucose Urine UA NEG (NEG); Leukocyte Esterase Urine NEG (NEG); Nitrite Urine NEG (NEG); UACC Culture Trigger NO; Urine Blood 1+ (NEG); Urine Ketones NEG (NEG); Urine Protein NEG (NEG-TRACE)
[2021-11-04 03:20] LABS: Amorphous Sediment Urine 1+ /LPF; WBC Urine 0 /HPF (0-4)
[2021-11-04 04:13] VITALS: BP 120/69; PULSE 74; RESP 18; O2SAT 97
--- NOTE | 2021-11-04 04:38 | PC.NURSE ---
Santos catheter bag changed to leg bag. Patient educated on care and importance of follow up upon DC with urologist. VSS.
== END 2021-11-04 04:59 | disposition home or self-care (01) ==
PROVIDERS: Emergency Provider Emergency Medicine; PCP Internal Medicine
DX: N31.9 Neuromuscular dysfunction of bladder, unspecified (principal); N40.1 Benign prostatic hyperplasia with lower urinary tract symptoms; R33.8 Other retention of urine; K59.00 Constipation, unspecified
CPT/HCPCS: 51702; 51798; 74018; 81001; 99284; 99285

== ENCOUNTER 2021-11-04 23:37 | Emergency (ER) | payer MEDICARE, MEDICAID, SELFPAY ==
[2021-11-05 00:25] VITALS: BP 127/75; PULSE 79; RESP 14; TEMP 36.7; O2SAT 95; BMI 22.8
--- NOTE | 2021-11-05 04:20 | ED_ITS ---
HPI - Psych General Chief Complaint: Psychiatric Symptoms Stated Complaint: crisis Time Seen by Provider: 11/05/21 04:19 Source: patient Mode of arrival: ambulatory Limitations: no limitations History of Present Illness HPI Narrative: 55-year-old male well-known to the ED staff for frequent ED visits for either for psych or chronic indwelling Santos problem patient was seen in the emergency department yesterday for changing his Santos catheter, today feels like not getting along with any funny feeling very anxious, declined any SI or HI or hallucination. Related Data Home Medications Medication Instructions Recorded Confirmed aripiprazole 20 mg tablet 1 tab PO BEDTIME PRN 05/26/21 10/27/21 bethanechol chloride 50 mg tablet 1 tab PO TID 05/26/21 10/27/21 carbamazepine 200 mg tablet 1 tab PO BID 05/26/21 10/27/21 clonazepam 0.5 mg tablet 1 tab PO BID PRN 05/26/21 10/27/21 haloperidol 2 mg tablet 1 tab PO BEDTIME 05/26/21 10/27/21 hydroxyzine HCl 10 mg tablet 1 tab PO TID 05/26/21 10/27/21 tamsulosin 0.4 mg capsule 1 cap PO BEDTIME 05/26/21 10/27/21 trazodone 50 mg tablet 1 tab PO BEDTIME PRN 05/26/21 10/27/21 Previous Rx's Medication Instructions Recorded omeprazole 40 mg capsule,delayed 40 mg PO DAILY 30 Days #30 cap 08/26/21 release levofloxacin 750 mg tablet 750 mg PO Q24H 6 Days #6 tab 10/23/21 atorvastatin 10 mg tablet 10 mg PO DAILY 30 Days #30 tab 10/27/21 polyethylene glycol 3350 17 gram 17 g PO BID PRN #14 ea 11/04/21 oral powder packet (Miralax) Allergies Allergy/AdvReac Type Severity Reaction Status Date / Time No Known Allergies Allergy Unknown UNKNOWN Verified 10/28/21 23:24 [NO KNOWN ALLERGIES] Review of Systems Review of Systems: All other systems are reviewed and are negative Constitutional: Reports as per HPI and Reports no additional constitutional complaints Eyes: Reports as per HPI and Reports no additional eye complaints Reports system reviewed and no additional complaints, except as documented Cardiovascular: Reports as per HPI and Reports no additional cardiovascular complaints Respiratory: Reports as per HPI and Reports no additional respiratory complaints Gastrointestinal: Reports as per HPI and Reports no additional gastrointestinal complaints Genitourinary: Reports no additional female genitourinary complaints Musculoskeletal: Reports no additional musculoskeletal complaints Skin/Breast: Reports system reviewed and no additional complaints, except as docu Psychiatric: Reports no additional psychiatric complaints Endocrine: Reports no additional endocrine complaints Hematologic/Lymphatic: Reports no additional hematologic/lymphatic complaints Allergic/Immunologic: Reports no additional allergic/immunologic complaints Reports system reviewed and no additional complaints, except as documented and Reports Abnormal speech present [facility] Past Medical History Medical History Anxiety Back pain Benign prostatic hyperplasia with lower urinary tract symptoms Bipolar 1 disorder Constipation Mood disorder Personal history of nicotine dependence Pure hypercholesterolemia Schizoaffective disorder, bipolar type Thought disorder Tubular adenoma of colon (~2018) Surgical History History of colonoscopy (~04/2019) History of open reduction and internal fixation (ORIF) procedure (~08/2018) History of prostate surgery (~04/2019) Family History Family History Father Lung cancer BPH (benign prostatic hyperplasia) Mother Dementia Brother Myocardial infarction Other Mental health problem Substance abuse Social History Social History Household Members: None Housing: Assisted Living Facility Housing Other:: [facility] Do you presently have visiting nurse or other home services: No Alcohol intake: never Patient Tobacco Use Status: Current everyday Tobacco user Tobacco use type: Cigarette Cigarette Packs Per Day: 1 Cigarettes Per Day: 20.0 Years Smoked: 10 e-Cigarette/Vaping Use: Never Used Second Hand Smoke Exposure: Yes Advance Directives: No service: No Current occupational status: employed Current occupation: [employer] Sexual orientation: Decline to Answer Cognitive needs: No Hearing needs: No Vision needs: Yes Physical Exam Vital Signs: Vital Signs: Last Vital Signs Temp 98.0 F 11/05/21 00:25 Pulse 79 11/05/21 00:25 Resp 14 11/05/21 00:25 BP 127/75 11/05/21 00:25 Pulse Ox 95 11/05/21 00:25 BMI result Body Mass Index 22.8 Vital signs have been reviewed as appeared to be correct. Blood pressure normal. Heart rate normal. Respiration rate normal. Temperature normal. Oxygen saturation normal. Appearance: Alert. Oriented X3. No acute distress. Head: Normal external exam. Normocephalic. Atraumatic. No [place] signs noted. No raccoon eyes noted Eyes: PERRLA. EOMI. Conjunctiva and sclera normal. Eyelids normal. ENT: TM's Normal. Pharynx normal. Uvula midline. Moist mucous membranes. No trismus noted. No drooling noted. No muffled voice noted. Neck: Normal inspection. Neck supple. FROM. No adenopathy. Thyroid Normal. No meningeal signs. No neck mass noted. CVS: Normal heart rate and rhythm. Heart sound normal. No murmurs noted. Pulses normal throughout. Respiratory: No respiratory distress. Painless inspiration. Breath sounds normal. No wheezes/rales/rhonchi noted. Chest nontender. No accessory muscle usage noted or decreased air movement noted. Abdomen: Soft and nontender. Bowel sounds normal in all 4 quadrants. No distention noted. No organomegaly noted. No visible injury noted. Back: No CVA tenderness. Full range of motion noted. Skin: Skin warm and dry. Normal skin color. Normal skin turgor. No rashes/lesions/lacerations noted. Extremities: No lower extremity edema. Extremities exhibit normal range of motion. Extremities nontender. Neuro: Oriented X 3. Cranial nerve exam: II-XII are grossly intact No motor deficit. No sensory deficit. Reflexes normal. Course Course Course Narrative: Patient slept well in the ED with stable vital signs, patient now is not suicidal, is not him aside all, no hallucination, feels safe to be discharged home. No other medical complaint. Discharge Plan Discharge Clinical Impression: Neurogenic bladder, Chronic schizophrenia Patient Disposition: Home, Self-Care Instructions: Santos Catheter Placement and Care (ED) Prescriptions: No Action omeprazole 40 mg capsule,delayed release(DR/EC) 40 mg PO DAILY 30 Days Qty: 30 2RF atorvastatin 10 mg tablet 10 mg PO DAILY 30 Days Qty: 30 0RF levofloxacin 750 mg tablet 750 mg PO Q24H 6 Days Qty: 6 0RF carbamazepine 200 mg tablet 1 tab PO BID 0RF bethanechol chloride 50 mg tablet 1 tab PO TID 0RF aripiprazole 20 mg tablet 1 tab PO BEDTIME PRN (Reason: Anxiety) 0RF clonazepam 0.5 mg tablet 1 tab PO BID PRN (Reason: Anxiety) 0RF hydroxyzine HCl 10 mg tablet 1 tab PO TID 0RF haloperidol 2 mg tablet 1 tab PO BEDTIME 0RF trazodone 50 mg tablet 1 tab PO BEDTIME PRN (Reason: insomnia) 0RF tamsulosin 0.4 mg capsule 1 cap PO BEDTIME 0RF polyethylene glycol 3350 [Miralax] 17 gram powder in packet 17 g PO BID PRN (Reason: constipation) Qty: 14 0RF Referrals: Dk Rodriguez MD [Primary Care Provider] -
== END 2021-11-05 06:39 | disposition home or self-care (01) ==
PROVIDERS: Emergency Provider Emergency Medicine; PCP Internal Medicine
DX: N31.9 Neuromuscular dysfunction of bladder, unspecified (principal); F20.9 Schizophrenia, unspecified; Z96.0 Presence of urogenital implants
CPT/HCPCS: 99281

== ENCOUNTER 2021-11-06 03:03 | Emergency (ER) | payer MEDICARE, MEDICAID, SELFPAY ==
[2021-11-06 03:05] VITALS: BP 120/70; PULSE 83; RESP 16; TEMP 36.9; O2SAT 98; BMI 25.0
--- NOTE | 2021-11-06 03:12 | ED_ITS ---
HPI - Psych General Chief Complaint: Psychiatric Symptoms Stated Complaint: Crisis Time Seen by Provider: 11/06/21 03:09 Source: patient and old records reviewed Mode of arrival: ambulatory Limitations: no limitations History of Present Illness MD complaint: anxiety and other (agitation) Onset (ago): year(s) Duration: getting worse History of same: Yes Relieving factors: none Exacerbating factors: other ( they don't take care of me there, I am in crisis ) Context: significant life stressor Associated psychiatric symptoms: none Treatments prior to arrival: none Related Data Home Medications Medication Instructions Recorded Confirmed aripiprazole 20 mg tablet 1 tab PO BEDTIME PRN 05/26/21 10/27/21 bethanechol chloride 50 mg tablet 1 tab PO TID 05/26/21 10/27/21 carbamazepine 200 mg tablet 1 tab PO BID 05/26/21 10/27/21 clonazepam 0.5 mg tablet 1 tab PO BID PRN 05/26/21 10/27/21 haloperidol 2 mg tablet 1 tab PO BEDTIME 05/26/21 10/27/21 hydroxyzine HCl 10 mg tablet 1 tab PO TID 05/26/21 10/27/21 tamsulosin 0.4 mg capsule 1 cap PO BEDTIME 05/26/21 10/27/21 trazodone 50 mg tablet 1 tab PO BEDTIME PRN 05/26/21 10/27/21 Previous Rx's Medication Instructions Recorded omeprazole 40 mg capsule,delayed 40 mg PO DAILY 30 Days #30 cap 08/26/21 release levofloxacin 750 mg tablet 750 mg PO Q24H 6 Days #6 tab 10/23/21 atorvastatin 10 mg tablet 10 mg PO DAILY 30 Days #30 tab 10/27/21 polyethylene glycol 3350 17 gram 17 g PO BID PRN #14 ea 11/04/21 oral powder packet (Miralax) Allergies Allergy/AdvReac Type Severity Reaction Status Date / Time No Known Allergies Allergy Unknown UNKNOWN Verified 10/28/21 23:24 [NO KNOWN ALLERGIES] Review of Systems Review of Systems: Constitutional : No Fever, No Chills ENT/Mouth : No Ear Pain, No Nasal Congestion, No sore throat Eyes: No Eye Pain, No Swelling, No Redness Cardiovascular : No Chest Pain, No SOB Respiratory : No Cough, No Sputum, No Dyspnea Gastrointestinal : No Nausea, No Vomiting, No Diarrhea, No Hematochezia, No Melena Genitourinary : No Dysuria, No Urinary Frequency, No Hematuria Musculoskeletal : No Myalgias Skin : No Skin Lesions, No rash Neuro : No Weakness, No Numbness, No Paresthesias, No Dizziness, No Headache Psych : positive Anxiety, positive Depression, no SI/HI Heme/Lymph: No Lymphadenopathy Endocrine : No Polyuria, No Polydipsia All other systems reviewed and are negative [facility] Past Medical History Attestation statement: The following information was validated with the patient. Medical History Anxiety Back pain Benign prostatic hyperplasia with lower urinary tract symptoms Bipolar 1 disorder Constipation Mood disorder Personal history of nicotine dependence Pure hypercholesterolemia Schizoaffective disorder, bipolar type Thought disorder Tubular adenoma of colon (~2018) Surgical History History of colonoscopy (~04/2019) History of open reduction and internal fixation (ORIF) procedure (~08/2018) History of prostate surgery (~04/2019) Family History Family History Father Lung cancer BPH (benign prostatic hyperplasia) Mother Dementia Brother Myocardial infarction Other Mental health problem Substance abuse Social History Social History Household Members: None Housing: Assisted Living Facility Housing Other:: senior care Do you presently have visiting nurse or other home services: No Alcohol intake: never Patient Tobacco Use Status: Current everyday Tobacco user Tobacco use type: Cigarette Cigarette Packs Per Day: 1 Cigarettes Per Day: 20.0 Years Smoked: 10 e-Cigarette/Vaping Use: Never Used Second Hand Smoke Exposure: Yes Advance Directives: No Advance Directives Information Provided: Yes service: No Current occupational status: employed Current occupation: [employer] Sexual orientation: Decline to Answer Cognitive needs: No Hearing needs: No Vision needs: Yes Physical Exam Vital Signs: Vital Signs: Last Vital Signs Temp 97.6 F 11/06/21 03:35 Pulse 79 11/06/21 03:35 Resp 18 11/06/21 03:35 BP 131/79 11/06/21 03:35 Pulse Ox 96 11/06/21 03:35 BMI result Body Mass Index 25.0 Appearance: Alert. Oriented X3. No acute distress. Anxious, talking fast, initially angry then calmed down Eyes: Pupils equal, round and reactive to light. ENT: Pharynx normal. Neck: Normal inspection. Neck supple. CVS: Normal heart rate and rhythm. Pulses normal. Respiratory: No respiratory distress. Breath sounds normal. Abdomen: Soft and nontender. : initially leg bag tied and didn't use buttons on the bag - showed him how to do it and then put celi wrap underneath since the wrap bothered him - taped upper part to his leg - he is happy now Skin: Skin warm and dry. Normal skin color. Normal skin turgor. Extremities: No lower extremity edema. No calf ttp Neuro: Oriented X 3. No motor deficit. No sensory deficit. Cn2-12 Course Course Course Narrative: Physician observation started at 336am. Patient placed in physician observation because the patient needed more time for BHN to speak to him about his psychiatric complaints. At the time observation was started the patient's vitals were stable, patient is alert and oriented but slightly agitated, Neuro: nonfocal, CV RRR, Lungs clear MDM - Psych MDM Narrative Medical decision making narrative: 55 yo male well known to us with chronic schafer and problems, chronic schizophrenia here with c/o needing help with his leg bag - teaching done at bedside, also wants to talk to crisis - no SI Discharge Plan Discharge Clinical Impression: Acute anxiety Patient Disposition: Still a Patient Prescriptions: No Action omeprazole 40 mg capsule,delayed release(DR/EC) 40 mg PO DAILY 30 Days Qty: 30 2RF atorvastatin 10 mg tablet 10 mg PO DAILY 30 Days Qty: 30 0RF levofloxacin 750 mg tablet 750 mg PO Q24H 6 Days Qty: 6 0RF carbamazepine 200 mg tablet 1 tab PO BID 0RF bethanechol chloride 50 mg tablet 1 tab PO TID 0RF aripiprazole 20 mg tablet 1 tab PO BEDTIME PRN (Reason: Anxiety) 0RF clonazepam 0.5 mg tablet 1 tab PO BID PRN (Reason: Anxiety) 0RF hydroxyzine HCl 10 mg tablet 1 tab PO TID 0RF haloperidol 2 mg tablet 1 tab PO BEDTIME 0RF trazodone 50 mg tablet 1 tab PO BEDTIME PRN (Reason: insomnia) 0RF tamsulosin 0.4 mg capsule 1 cap PO BEDTIME 0RF polyethylene glycol 3350 [Miralax] 17 gram powder in packet 17 g PO BID PRN (Reason: constipation) Qty: 14 0RF
[2021-11-06 03:35] VITALS: BP 131/79; PULSE 79; RESP 18; TEMP 36.4; O2SAT 96
[2021-11-06 04:03] LABS: COVID-19 Test Negative (Negative)
--- NOTE | 2021-11-06 07:17 | PC.NURSE ---
pt ambulating freely at bedside. pt has emptied his leg bag without assistance. pt is calm and cooperative and interacting appropriatly with staff. pt is awaiting [facility] eval.
--- NOTE | 2021-11-06 16:13 | MHC.CARE ---
1230 CARE Team spoke to patient in the main ED, [place] [address] as he requested to speak with someone. He was alert and oriented, appeared clean and well groomed, looks to have lost weight but said he is eating well, did maintain intermittent intense eye contact, voice clear, content ruminative. Patient was unable to identify a precipitant that prompted him to walk 12 miles to the ED in the middle of the night. Vague statements about being treated disrespectfully, not being able to access money to buy new shoes, all other clothing appeared new. Reported that he has excellent relationships with his housemates and they understand each other and get along well. Patient denied suicidal ideation, plan or intention said that he has things to look forward to a reasons to live. Said that he just needed to vent and was ready for discharge, noted that his team does not want him to come to the ED so much (11 visits in 2021 and 9 were in the last month). Patient is not having a psychiatric crisis and does not need further intervention. Case discussed with provider DAMARI Guzman who agreed patient was safe for discharge. [place] scheduled for ride home but he did not wait and walked home. Call to retirement staff later in the afternoon, they reported patient is home and seems to be doing fine.
== END 2021-11-06 14:03 | disposition home or self-care (01) ==
PROVIDERS: Emergency Provider Emergency Medicine
DX: F41.9 Anxiety disorder, unspecified (principal); F41.1 Generalized anxiety disorder; F43.0 Acute stress reaction; F17.210 Nicotine dependence, cigarettes, uncomplicated; Z71.6 Tobacco abuse counseling; Z20.822 Contact with and (suspected) exposure to COVID-19; Z79.899 Other long term (current) drug therapy
CPT/HCPCS: 87635; 99284

== ENCOUNTER 2021-11-08 22:13 | Emergency (ER) | payer MEDICARE, MEDICAID, SELFPAY ==
[2021-11-08 22:22] VITALS: BP 103/69; PULSE 82; RESP 18; TEMP 36.1; O2SAT 98; BMI 25.0
--- NOTE | 2021-11-09 00:23 | ED.MALEGU ---
HPI - Male Genitourinary General Chief complaint: Urogenital-Male Stated complaint: Catheter issues Time Seen by Provider: 11/08/21 22:19 Source: patient Mode of arrival: ambulatory Limitations: no limitations History of Present Illness HPI Narrative: 55 yold male with pmh of schizphrenia wants his denton removed. Patient denies any other physical complaints. Patient denies any abdominal pain, nausea, vomitting, flank pain, fever, chills, dysuria, hematuria, blood in denton, denton clogged, or recent trauama Related Data Home Medications Medication Instructions Recorded Confirmed aripiprazole 20 mg tablet 1 tab PO BEDTIME PRN 05/26/21 10/27/21 bethanechol chloride 50 mg tablet 1 tab PO TID 05/26/21 10/27/21 carbamazepine 200 mg tablet 1 tab PO BID 05/26/21 10/27/21 clonazepam 0.5 mg tablet 1 tab PO BID PRN 05/26/21 10/27/21 haloperidol 2 mg tablet 1 tab PO BEDTIME 05/26/21 10/27/21 hydroxyzine HCl 10 mg tablet 1 tab PO TID 05/26/21 10/27/21 tamsulosin 0.4 mg capsule 1 cap PO BEDTIME 05/26/21 10/27/21 trazodone 50 mg tablet 1 tab PO BEDTIME PRN 05/26/21 10/27/21 Previous Rx's Medication Instructions Recorded omeprazole 40 mg capsule,delayed 40 mg PO DAILY 30 Days #30 cap 08/26/21 release levofloxacin 750 mg tablet 750 mg PO Q24H 6 Days #6 tab 10/23/21 atorvastatin 10 mg tablet 10 mg PO DAILY 30 Days #30 tab 10/27/21 polyethylene glycol 3350 17 gram 17 g PO BID PRN #14 ea 11/04/21 oral powder packet (Miralax) Allergies Allergy/AdvReac Type Severity Reaction Status Date / Time No Known Allergies Allergy Unknown UNKNOWN Verified 10/28/21 23:24 [NO KNOWN ALLERGIES] Review of Systems Review of Systems: wants denton removed Yes all other systems are reviewed and are negative PMFSH Past Medical History Medical History Anxiety Back pain Benign prostatic hyperplasia with lower urinary tract symptoms Bipolar 1 disorder Constipation Mood disorder Personal history of nicotine dependence Pure hypercholesterolemia Schizoaffective disorder, bipolar type Thought disorder Tubular adenoma of colon (~2018) Surgical History History of colonoscopy (~04/2019) History of open reduction and internal fixation (ORIF) procedure (~08/2018) History of prostate surgery (~04/2019) Family History Family History Father Lung cancer BPH (benign prostatic hyperplasia) Mother Dementia Brother Myocardial infarction Other Mental health problem Substance abuse Social History Social History Household Members: None Housing: Assisted Living Facility Housing Other:: [facility] Do you presently have visiting nurse or other home services: No Alcohol intake: never Patient Tobacco Use Status: Current everyday Tobacco user Tobacco use type: Cigarette Cigarette Packs Per Day: 1 Cigarettes Per Day: 20.0 Years Smoked: 10 e-Cigarette/Vaping Use: Never Used Second Hand Smoke Exposure: Yes Advance Directives: No service: No Current occupational status: employed Current occupation: [employer] Sexual orientation: Decline to Answer Cognitive needs: No Hearing needs: No Vision needs: Yes Physical Exam Vital Signs: Vital Signs: Last Vital Signs Temp 97.0 F 11/08/21 22:22 Pulse 82 11/08/21 22:22 Resp 18 11/08/21 22:22 BP 103/69 11/08/21 22:22 Pulse Ox 98 11/08/21 22:22 BMI result Body Mass Index 25.0 Const: General: cooperative, healthy appearing, comfortable, no acute distress, well developed, alert, awake and Physically active Orientation/consciousness: patient oriented x3 HEENT: Head: Yes normal to inspection, Yes No palpable skull fracture present, Yes normocephalic, Yes atraumatic and No abrasion Eyes: General: appearance normal, both eyes and all related structures Neck: Neck: Yes normal visual inspection, Yes full ROM, Yes no lymphadenopathy, Yes no meningeal signs, Yes trachea midline, Yes supple, No anterior neck swelling and No tender Chest: Chest palpation & inspection: normal inspection of the chest and normal palpation of entire chest wall Resp: Effort & Inspection: normal respiratory effort and able to speak in complete sentences Auscultation: clear to auscultation bilaterally Cardio: Jugular venous distension: no JVD Heart sounds: S1 normal heart sound present and S2 normal heart sound present GI: Inspection: Yes normal to inspection and No abdominal wall ecchymosis Palpation (GI): Soft to palpation, not firm, nontender, no guarding and not rigid : Other: Denton is functional and negtative for any blood clots, discharge, or cloudy urine. Penis and testicles are normal. General: No CVA tenderness and Yes no CVA tenderness Back/Spine/Pelvis: Back: no CVA tenderness, No CVA tenderness and No back tenderness Skin: General skin exam: no rashes or lesions noted and elasticity normal Neuro: General: patient oriented x3, gait normal, no meningeal signs and CN's II-XI intact bilaterally Cranial nerves: Yes CN's II-XII intact bilaterally Extrem: General: Yes normal to inspection and Yes full ROM Psych: Appearance: grossly normal, well kempt and not disheveled Course Course Course Narrative: Denton functional Reevaluation(s) Reevaluation #1: Denton does not need to be removed. patient informed to follow up with Urology. Patient had denton placed by Urology, but never followed up. Time: 01:24 MDM - Male Genitourinary MDM Narrative Medical decision making narrative: Denton care Discharge Plan Discharge Clinical Impression: Denton catheter in place Patient Disposition: Home, Self-Care Instructions: Denton Catheter Placement and Care (ED) Additional Instructions: Please follow-up with urology. No need for Denton to be removed. Return to the ED for any testicular pain, penile pain, blood in Denton, blood clots in the Denton, abdominal pain, nausea, vomiting, fever, chills, cloudy urine, discharge in Denton, or any other concerning symptoms. Prescriptions: No Action omeprazole 40 mg capsule,delayed release(DR/EC) 40 mg PO DAILY 30 Days Qty: 30 2RF atorvastatin 10 mg tablet 10 mg PO DAILY 30 Days Qty: 30 0RF levofloxacin 750 mg tablet 750 mg PO Q24H 6 Days Qty: 6 0RF carbamazepine 200 mg tablet 1 tab PO BID 0RF bethanechol chloride 50 mg tablet 1 tab PO TID 0RF aripiprazole 20 mg tablet 1 tab PO BEDTIME PRN (Reason: Anxiety) 0RF clonazepam 0.5 mg tablet 1 tab PO BID PRN (Reason: Anxiety) 0RF hydroxyzine HCl 10 mg tablet 1 tab PO TID 0RF haloperidol 2 mg tablet 1 tab PO BEDTIME 0RF trazodone 50 mg tablet 1 tab PO BEDTIME PRN (Reason: insomnia) 0RF tamsulosin 0.4 mg capsule 1 cap PO BEDTIME 0RF polyethylene glycol 3350 [Miralax] 17 gram powder in packet 17 g PO BID PRN (Reason: constipation) Qty: 14 0RF Referrals: Keon Liu MD [Physician] - (Denton placement. wants it removed) Interventions: ED Discharge Assessment Last Done: 11/09/21 00:37 Discharge Date/Time: 11/09/21 00:40 Print Language: Macedonian
== END 2021-11-09 00:40 | disposition home or self-care (01) ==
PROVIDERS: Emergency Provider Internal Medicine; PCP Internal Medicine
DX: Z46.6 Encounter for fitting and adjustment of urinary device (principal)
CPT/HCPCS: 99282

== ENCOUNTER 2021-11-13 21:08 | Emergency (ER) | payer MEDICARE, MEDICAID, SELFPAY ==
[2021-11-13 22:06] VITALS: BP 110/69; PULSE 76; RESP 18; TEMP 36.6; O2SAT 98; BMI 23.1
[2021-11-13 22:22] LABS: MANUAL DIFF FLAG NO
[2021-11-13 22:30] LABS: Appearance Urine CLEAR; Color Urine DK YELLOW; Glucose Urine UA NEG (NEG); Leukocyte Esterase Urine 2+ (NEG); Nitrite Urine NEG (NEG); PH 6.5 (5.0-8.0); Specific Gravity - Urine 1.015 (1.005-1.025); UACC Culture Trigger YES; Urine Blood TRACE (NEG); Urine Ketones NEG (NEG); Urine Protein NEG (NEG-TRACE)
[2021-11-13 22:35] LABS: Basophils Absolute Auto 0.1 X10*3/uL (0.0-0.2); Basophils Percent Auto 1.2 % (0-2); Eosinophils Absolute Auto 0.2 X10*3/uL (0.0-0.4); Eosinophils Percent Auto 3.4 % (0-4); Hematocrit 37.3 % (42.0-52.0); Imm Gran Abs Auto 0.02 X10*3/uL (0.00-0.03); Imm Gran Pct Auto 0.3 % (0.0-0.4); Lymphocytes Absolute Auto 1.9 X10*3/uL (1.2-4.9); Lymphocytes Percent Auto 28.4 % (20-40); Mean Corpuscular HGB Conc 34.9 g/dl (31.0-36.0); Mean Corpuscular Hemoglobin 32.1 pg (27.0-33.0); Mean Corpuscular Volume 92.1 fL (80.0-98.0); Mean Platelet Volume 8.3 fL (9.4-12.4); Monocytes Absolute Auto 0.8 X10*3/uL (0.1-1.2); Monocytes Percent Auto 11.4 % (2-11); Neutrophils Absolute Auto 3.7 x10*3/uL (2.0-8.3); Neutrophils Percent Auto 55.3 % (45-73); Platelet Count 227 X10*3/uL (160-400); Red Blood Count 4.05 X10*6/uL (4.60-5.80); Red Cell Distribution Width 12.3 % (11.0-16.0); White Blood Count 6.8 X10*3/uL (4.8-10.8)
[2021-11-13 22:41] LABS: Ethanol < 10 mg/dL
[2021-11-13 22:45] LABS: Amphetamine Screen Urine Not Detected (Not Detect); Barbiturates, Urine Not Detected (Not Detect); Benzodiazepines Screen Urine Not Detected (Not Detect); Cannabinoid Screen Urine Not Detected (Not Detect); Cocaine Screen Urine Not Detected (Not Detect); Fentanyl, urine POSITIVE (Not Detect); Opiate Screen Urine Not Detected (Not Detect); Phencyclidine Screen Urine Not Detected (Not Detect)
[2021-11-13 22:46] LABS: Alanine Aminotransferase 17 U/L (0-40); Albumin Level 3.8 g/dL (3.5-5.0); Alkaline Phosphatase 70 U/L (39-117); Anion Gap 11 (12-20); Aspartate Amino Transferase 20 U/L (5-37); Bilirubin Total 0.2 mg/dL (0.0-1.0); Blood Urea Nitrogen 8 mg/dL (9-16); Calcium 8.8 mg/dL (8.4-10.2); Carbon Dioxide 26 mmol/L (22-29); Chloride 95 mmol/L (96-108); Creatinine Clr Calc Pharmacy 109.1; Estimated Glomerular Filt Rate > 60; Glucose Random 87 mg/dL (60-115); Potassium 4.4 mmol/L (3.3-5.1); Sodium 128 mmol/L (135-145); Total Protein 6.1 g/dL (6.5-8.0)
[2021-11-13 23:10] LABS: Bacteria Urine 1+ /LPF; Squamous Epithelial Cell Urine TRACE /LPF
[2021-11-13 23:47] VITALS: BP 118/72; PULSE 76; RESP 16; TEMP 36.6; O2SAT 96
--- NOTE | 2021-11-13 23:48 | ED.PSYCH ---
HPI - Psych General Chief Complaint: Psychiatric Symptoms Stated Complaint: Crisis Time Seen by Provider: 11/13/21 23:46 History of Present Illness HPI Narrative: Patient is a 55-year-old male with a history of schizoaffective disorder. Got into an argument with jail. Positive anxiety. Patient came out. Denies any suicidal homicidal ideation. No fever no chills no chest pain or shortness breath no nausea no vomiting. Related Data Home Medications Medication Instructions Recorded Confirmed aripiprazole 20 mg tablet 1 tab PO BEDTIME PRN Anxiety 05/26/21 10/27/21 bethanechol chloride 50 mg tablet 1 tab PO TID 05/26/21 10/27/21 carbamazepine 200 mg tablet 1 tab PO BID 05/26/21 10/27/21 clonazepam 0.5 mg tablet 1 tab PO BID PRN Anxiety 05/26/21 10/27/21 haloperidol 2 mg tablet 1 tab PO BEDTIME 05/26/21 10/27/21 hydroxyzine HCl 10 mg tablet 1 tab PO TID 05/26/21 10/27/21 tamsulosin 0.4 mg capsule 1 cap PO BEDTIME 05/26/21 10/27/21 trazodone 50 mg tablet 1 tab PO BEDTIME PRN insomnia 05/26/21 10/27/21 Previous Rx's Medication Instructions Recorded omeprazole 40 mg capsule,delayed 40 mg PO DAILY 30 days #30 caps 08/26/21 release levofloxacin 750 mg tablet 750 mg PO Q24H 6 days #6 tabs 10/23/21 atorvastatin 10 mg tablet 10 mg PO DAILY 30 days #30 tabs 10/27/21 polyethylene glycol 3350 17 gram 17 g PO BID PRN constipation #14 ea 11/04/21 oral powder packet (Miralax) Allergies Allergy/AdvReac Type Severity Reaction Status Date / Time No Known Allergies Allergy Unknown UNKNOWN Verified 10/28/21 23:24 [NO KNOWN ALLERGIES] Review of Systems Review of Systems: No chest pain or shortness breath nausea vomiting Yes all other systems are reviewed and are negative PMFSH Past Medical History Attestation statement: The following information was validated with the patient. Medical History Anxiety Back pain Benign prostatic hyperplasia with lower urinary tract symptoms Bipolar 1 disorder Constipation Mood disorder Personal history of nicotine dependence Pure hypercholesterolemia Schizoaffective disorder, bipolar type Thought disorder Tubular adenoma of colon (~2018) Surgical History History of colonoscopy (~04/2019) History of open reduction and internal fixation (ORIF) procedure (~08/2018) History of prostate surgery (~04/2019) Family History Family History Father Lung cancer BPH (benign prostatic hyperplasia) Mother Dementia Brother Myocardial infarction Other Mental health problem Substance abuse Social History Social History Household Members: None Housing: Assisted Living Facility Housing Other:: jail Do you presently have visiting nurse or other home services: No Alcohol intake: never Patient Tobacco Use Status: Current everyday Tobacco user Tobacco use type: Cigarette Cigarette Packs Per Day: 1 Cigarettes Per Day: 20.0 Years Smoked: 10 e-Cigarette/Vaping Use: Never Used Second Hand Smoke Exposure: Yes Advance Directives: No Advance Directives Information Provided: No service: No Current occupational status: employed Current occupation: [employer] Sexual orientation: Decline to Answer Cognitive needs: No Hearing needs: No Vision needs: Yes Physical Exam Vital Signs: Vital Signs: Last Vital Signs Temp 97.9 F 11/13/21 23:47 Pulse 76 11/13/21 23:47 Resp 16 11/13/21 23:47 BP 118/72 11/13/21 23:47 Pulse Ox 96 11/13/21 23:47 O2 Del Method 11/13/21 23:47 BMI result Body Mass Index 23.1 Appearance: Alert. Oriented X3. No acute distress. Eyes: Pupils equal, round and reactive to light. ENT: Pharynx normal. Neck: Normal inspection. Neck supple. No lymph nodes noted. No crepitus CVS: Normal heart rate and rhythm. Pulses normal. Normal S1 and S2 Respiratory: No respiratory distress. Breath sounds normal. No Wheezing. No rales Abdomen: Soft and nontender. No rigidity. No distention. good BS x4 Skin: Skin warm and dry. Normal skin color. Normal skin turgor. Extremities: No lower extremity edema. Neurovascular intact to all extremities. No Lacerations. No Rash Neuro: Oriented X 3. No motor deficit. No sensory deficit. Moving all extermities. No slurred speech MDM - Psych MDM Narrative Medical decision making narrative: No suicidal homicidal ideation. Patient's sodium is 128 this is about baseline for patient 130 range. Patient no distress neurologically intact denies recreational drug use however tox screen came back positive for fentanyl only. Question contamination. Patient is in no distress. Awake alert oriented. [facility] back [facility] the jail. In stable condition Lab Data Result diagrams: 11/13/21 22:14 11/13/21 22:14 Labs: Lab Results 11/13/21 11/13/21 11/13/21 Range/Units 22:14 22:14 22:14 WBC 6.8 (4.8-10.8) X10*3/uL RBC 4.05 L (4.60-5.80) X10*6/uL Hgb 13.0 L (14.0-18.0) g/dl Hct 37.3 L (42.0-52.0) % MCV 92.1 (80.0-98.0) fL MCH 32.1 (27.0-33.0) pg MCHC 34.9 (31.0-36.0) g/dl RDW 12.3 (11.0-16.0) % Plt Count 227 (160-400) X10*3/uL MPV 8.3 L (9.4-12.4) fL Immature Gran % (Auto) 0.3 (0.0-0.4) % Neut % (Auto) 55.3 (45-73) % Lymph % (Auto) 28.4 (20-40) % [place] % (Auto) 11.4 H (2-11) % Eos % (Auto) 3.4 (0-4) % Baso % (Auto) 1.2 (0-2) % Lymph # (Auto) 1.9 (1.2-4.9) X10*3/uL Lyon # (Auto) 0.8 (0.1-1.2) X10*3/uL Eos # (Auto) 0.2 (0.0-0.4) X10*3/uL Baso # (Auto) 0.1 (0.0-0.2) X10*3/uL Abs Immat Gran (auto) 0.02 (0.00-0.03) X10*3/uL Absolute Neuts (auto) 3.7 (2.0-8.3) x10*3/uL Absolute Nucleated RBC 0.000 (0.0-0.012) X10*3/uL Nucleated RBC % (auto) 0.0 (0.0-0.2) /100WBC Sodium 128 L (135-145) mmol/L Potassium 4.4 (3.3-5.1) mmol/L Chloride 95 L (96-108) mmol/L Carbon Dioxide 26 (22-29) mmol/L Anion Gap 11 L (12-20) BUN 8 L (9-16) mg/dL Creatinine 0.69 (0.5-1.4) mg/dL Estim Creat Clear Calc 109.1 Estimated GFR > 60 Random Glucose 87 (60-115) mg/dL Calcium 8.8 (8.4-10.2) mg/dL Total Bilirubin 0.2 (0.0-1.0) mg/dL AST 20 (5-37) U/L ALT 17 (0-40) U/L Alkaline Phosphatase 70 (39-117) U/L Total Protein 6.1 L (6.5-8.0) g/dL Albumin 3.8 (3.5-5.0) g/dL Urine Color Urine Appearance Urine pH (5.0-8.0) Ur Specific [place] (1.005-1.025) Urine Protein (NEG-TRACE) MG/DL Urine Glucose (UA) (NEG) MG/DL Urine Ketones (NEG) MG/DL Urine Blood (NEG) Urine Nitrite (NEG) Ur Leukocyte Esterase (NEG) Urine RBC (0) /HPF Urine WBC (0-4) /HPF Ur Squamous Epith Cells /LPF Urine Bacteria /LPF Urine Opiates Screen (Not Detect) Urine Fentanyl Screen (Not Detect) Ur Barbiturates Screen (Not Detect) Ur Phencyclidine Scrn (Not Detect) Ur Amphetamines Screen (Not Detect) U Benzodiazepines Scrn (Not Detect) Urine Cocaine Screen (Not Detect) U Marijuana (THC) Screen (Not Detect) Ethyl Alcohol < 10 mg/dL 11/13/21 11/13/21 Range/Units 22:23 22:23 WBC (4.8-10.8) X10*3/uL RBC (4.60-5.80) X10*6/uL Hgb (14.0-18.0) g/dl Hct (42.0-52.0) % MCV (80.0-98.0) fL MCH (27.0-33.0) pg MCHC (31.0-36.0) g/dl RDW (11.0-16.0) % Plt Count (160-400) X10*3/uL MPV (9.4-12.4) fL Immature Gran % (Auto) (0.0-0.4) % Neut % (Auto) (45-73) % Lymph % (Auto) (20-40) % Lyon % (Auto) (2-11) % Eos % (Auto) (0-4) % Baso % (Auto) (0-2) % Lymph # (Auto) (1.2-4.9) X10*3/uL [place] # (Auto) (0.1-1.2) X10*3/uL Eos # (Auto) (0.0-0.4) X10*3/uL Baso # (Auto) (0.0-0.2) X10*3/uL Abs Immat Gran (auto) (0.00-0.03) X10*3/uL Absolute Neuts (auto) (2.0-8.3) x10*3/uL Absolute Nucleated RBC (0.0-0.012) X10*3/uL Nucleated RBC % (auto) (0.0-0.2) /100WBC Sodium (135-145) mmol/L Potassium (3.3-5.1) mmol/L Chloride (96-108) mmol/L Carbon Dioxide (22-29) mmol/L Anion Gap (12-20) BUN (9-16) mg/dL Creatinine (0.5-1.4) mg/dL Estim Creat Clear Calc Estimated GFR Random Glucose (60-115) mg/dL Calcium (8.4-10.2) mg/dL Total Bilirubin (0.0-1.0) mg/dL AST (5-37) U/L ALT (0-40) U/L Alkaline Phosphatase (39-117) U/L Total Protein (6.5-8.0) g/dL Albumin (3.5-5.0) g/dL Urine Color DK YELLOW Urine Appearance CLEAR Urine pH 6.5 (5.0-8.0) Ur Specific [place] 1.015 (1.005-1.025) Urine Protein NEG (NEG-TRACE) MG/DL Urine Glucose (UA) NEG (NEG) MG/DL Urine Ketones NEG (NEG) MG/DL Urine Blood TRACE (NEG) Urine Nitrite NEG (NEG) Ur Leukocyte Esterase 2+ H (NEG) Urine RBC 1-4 (0) /HPF Urine WBC 15-29 H (0-4) /HPF Ur Squamous Epith Cells TRACE /LPF Urine Bacteria 1+ /LPF Urine Opiates Screen Not Detected (Not Detect) Urine Fentanyl Screen POSITIVE H (Not Detect) Ur Barbiturates Screen Not Detected (Not Detect) Ur Phencyclidine Scrn Not Detected (Not Detect) Ur Amphetamines Screen Not Detected (Not Detect) U Benzodiazepines Scrn Not Detected (Not Detect) Urine Cocaine Screen Not Detected (Not Detect) U Marijuana (THC) Screen Not Detected (Not Detect) Ethyl Alcohol mg/dL Discharge Plan Discharge Clinical Impression: Anxiety Patient Disposition: Home, Self-Care Instructions: Anxiety (ED) Prescriptions: No Action omeprazole 40 mg capsule,delayed release(DR/EC) 40 mg PO DAILY 30 Days Qty: 30 2RF atorvastatin 10 mg tablet 10 mg PO DAILY 30 Days Qty: 30 0RF levofloxacin 750 mg tablet 750 mg PO Q24H 6 Days Qty: 6 0RF carbamazepine 200 mg tablet 1 tab PO BID bethanechol chloride 50 mg tablet 1 tab PO TID aripiprazole 20 mg tablet 1 tab PO BEDTIME PRN (Reason: Anxiety) clonazepam 0.5 mg tablet 1 tab PO BID PRN (Reason: Anxiety) hydroxyzine HCl 10 mg tablet 1 tab PO TID haloperidol 2 mg tablet 1 tab PO BEDTIME trazodone 50 mg tablet 1 tab PO BEDTIME PRN (Reason: insomnia) tamsulosin 0.4 mg capsule 1 cap PO BEDTIME polyethylene glycol 3350 [Miralax] 17 gram powder in packet 17 g PO BID PRN (Reason: constipation) Qty: 14 0RF Referrals: Dk Rodriguez MD [Primary Care Provider] -
== END 2021-11-14 00:07 | disposition home or self-care (01) ==
PROVIDERS: Emergency Provider Emergency Medicine Emergency Medical Services; PCP Internal Medicine
DX: F41.9 Anxiety disorder, unspecified (principal); F25.9 Schizoaffective disorder, unspecified
CPT/HCPCS: 36415; 80053; 80307; 81001; 82077; 85025; 87086; 99284

== ENCOUNTER 2021-11-17 20:17 | Emergency (ER) | payer MEDICARE, MEDICAID, SELFPAY ==
[2021-11-17 20:29] VITALS: BP 109/67; PULSE 96; RESP 18; TEMP 36.5; O2SAT 96; BMI 24.5
--- NOTE | 2021-11-17 20:35 | ED_ITS ---
HPI - Psych General Chief Complaint: Psychiatric Symptoms Stated Complaint: crisis eval Time Seen by Provider: 11/17/21 20:35 Source: patient Mode of arrival: ambulatory Limitations: no limitations History of Present Illness HPI Narrative: 55-year-old male history of anxiety, bipolar disorder type 1, schizoaffective disorder, tubular adenoma of the colon presents to the emergency department with complaints of?anxiety, urinary retention. Patient tells me he is anxious because his house me at the longterm is ridiculous according to patient. He tells me he can not stand him anymore. He tells me he is very annoyed by his housemate. He tells me he walked here today and he wanted to speak to somebody about his problems. He also reports that he has been retaining urine. He tells me he goes to the bathroom and he feels like he is not emptying completely. He reports that he recently had an indwelling Santos catheter unsure why however it was recently removed. Denies fevers, chills, chest pain, shortness of breath, nausea, vomiting. Related Data Home Medications Medication Instructions Recorded Confirmed aripiprazole 20 mg tablet 1 tab PO BEDTIME PRN Anxiety 05/26/21 11/17/21 bethanechol chloride 50 mg tablet 1 tab PO TID 05/26/21 11/17/21 carbamazepine 200 mg tablet 1 tab PO BID 05/26/21 11/17/21 clonazepam 0.5 mg tablet 1 tab PO BID PRN Anxiety 05/26/21 11/17/21 hydroxyzine HCl 10 mg tablet 1 tab PO TID 05/26/21 11/17/21 tamsulosin 0.4 mg capsule 1 cap PO BEDTIME 05/26/21 11/17/21 trazodone 50 mg tablet 1 tab PO BEDTIME PRN insomnia 05/26/21 11/17/21 haloperidol 5 mg tablet 1 tab PO BEDTIME 11/17/21 11/17/21 Previous Rx's Medication Instructions Recorded omeprazole 40 mg capsule,delayed 40 mg PO DAILY 30 days #30 caps 08/26/21 release atorvastatin 10 mg tablet 10 mg PO DAILY 30 days #30 tabs 10/27/21 polyethylene glycol 3350 17 gram 17 g PO BID PRN constipation #14 ea 11/04/21 oral powder packet (Miralax) Allergies Allergy/AdvReac Type Severity Reaction Status Date / Time No Known Allergies Allergy Unknown UNKNOWN Verified 10/28/21 23:24 [NO KNOWN ALLERGIES] Review of Systems Review of Systems: Constitutional : No Weight loss, No Fever, No Chills, No Fatigue, No Malaise ENT/Mouth : No sore throat, No Rhinorrhea Eyes: No Eye Pain, No Swelling, No Redness Cardiovascular : No Chest Pain, No SOB, No Dyspnea on Exertion, No Orthopnea, No Edema, No Palpitations Respiratory : No Cough, No Sputum, No Wheezing Gastrointestinal : No Nausea, No Vomiting, No Diarrhea, No Constipation, No abdominal Pain, No Hematochezia, No Melena Genitourinary : No Dysuria, No Urinary Frequency, No Hematuria, Musculoskeletal : No joint pain, No Myalgias, No Joint Swelling Skin : No Skin Lesions, No rash Neuro : No Weakness, No Numbness, No Dizziness, No Headache Psych : + Anxiety/Panic, No Depression, No Si or Hi All other systems reviewed and are negative Yes all other systems are reviewed and are negative [facility] Past Medical History Attestation statement: The following information was validated with the patient. Source: old records reviewed and nursing notes reviewed Medical History Back pain Bipolar 1 disorder Mood disorder Thought disorder Tubular adenoma of colon (~2018) Surgical History History of colonoscopy (~04/2019) History of open reduction and internal fixation (ORIF) procedure (~08/2018) History of prostate surgery (~04/2019) Family History Family History Father Lung cancer BPH (benign prostatic hyperplasia) Mother Dementia Brother Myocardial infarction Other Mental health problem Substance abuse Social History Social History Household Members: None Housing: Assisted Living Facility Housing Other:: longterm Do you presently have visiting nurse or other home services: No Alcohol intake: never Patient Tobacco Use Status: Current everyday Tobacco user Tobacco use type: Cigarette Cigarette Packs Per Day: 1 Cigarettes Per Day: 20.0 Years Smoked: 10 e-Cigarette/Vaping Use: Never Used Second Hand Smoke Exposure: Yes Advance Directives: No Advance Directives Information Provided: No service: No Current occupational status: employed Current occupation: [employer] Sexual orientation: Decline to Answer Cognitive needs: No Hearing needs: No Vision needs: Yes Physical Exam Vital Signs: Vital Signs: Last Vital Signs Temp 97.7 F 11/18/21 00:37 Pulse 78 11/18/21 00:37 Resp 17 11/18/21 00:37 BP 132/85 11/18/21 00:37 Pulse Ox 98 11/18/21 00:37 O2 Del Method 11/18/21 00:37 BMI result Body Mass Index 24.5 VSS Appearance: Alert.? Oriented X3.? No acute distress.? Head: Normocephalic, atraumatic, no step-offs or deformities Eyes: Pupils equal, round and reactive to light.? Neck: Normal inspection.? Neck supple.? CVS: Normal heart rate and rhythm.? Pulses normal.? Respiratory: No respiratory distress.? Breath sounds normal.? Abdomen: Soft and nontender.? Skin: Skin warm and dry.? Normal skin color.? Normal skin turgor.? Extremities: No lower extremity edema.? No calf ttp. 5/5 strength to bilateral upper and lower extremities Back: No midline tenderness, no C-spine tenderness, full range of motion, no CVA tenderness bilaterally Neuro: Oriented X 3.? No motor deficit.? No sensory deficit. CN 2-12 intact Course Reevaluation(s) Reevaluation #1: CBC with no acute findings. Chemistry is chronically low sodium, does not require intervention at this time, patient asymptomatic. No other acute electrolyte abnormalities. UA without infection. Patient without urinary frequency, urgency, patient is reporting urinary retention however unlikely that this is infection. Patient's toxicology negative. Ethanol negative. Patient with Santos catheter in place. Advised him to follow-up with urology. Patient has had multiple indwelling Santos catheters in the past he is followed by a urologist. Tells me he will follow-up with them. Lyubov from the care team spoke to patient, patient denying SI, HI, not requiring inpatient admission. Patient is medically cleared and is appropriate for discharge. Educated patient on worrisome signs and symptoms and when to return. At this time I feel comfortable with discharge home Time: 00:43 MDM - Psych MDM Narrative Medical decision making narrative: 2125 55 yo M presents w/ anxiety and urinary retention. Physical examination benign. A bedside bladder scan was done which showed about 421 cc of urine postvoid. At this time patient will be getting a Santos catheter. Plan at this time is medical clearance, urine, drug screen, patient was speak to the behavioral health team. Medical Records Attestation: I reviewed the patient's medical records. Lab Data Attestation: I reviewed the patient's lab results. Result diagrams: 11/17/21 21:42 11/17/21 21:42 Labs: Lab Results 11/17/21 11/17/21 11/17/21 Range/Units 20:43 20:48 20:48 WBC (4.8-10.8) X10*3/uL RBC (4.60-5.80) X10*6/uL Hgb (14.0-18.0) g/dl Hct (42.0-52.0) % MCV (80.0-98.0) fL MCH (27.0-33.0) pg MCHC (31.0-36.0) g/dl RDW (11.0-16.0) % Plt Count (160-400) X10*3/uL MPV (9.4-12.4) fL Immature Gran % (Auto) (0.0-0.4) % Neut % (Auto) (45-73) % Lymph % (Auto) (20-40) % Mckean % (Auto) (2-11) % Eos % (Auto) (0-4) % Baso % (Auto) (0-2) % Lymph # (Auto) (1.2-4.9) X10*3/uL Mckean # (Auto) (0.1-1.2) X10*3/uL Eos # (Auto) (0.0-0.4) X10*3/uL Baso # (Auto) (0.0-0.2) X10*3/uL Abs Immat Gran (auto) (0.00-0.03) X10*3/uL Absolute Neuts (auto) (2.0-8.3) x10*3/uL Absolute Nucleated RBC (0.0-0.012) X10*3/uL Nucleated RBC % (auto) (0.0-0.2) /100WBC Sodium (135-145) mmol/L Potassium (3.3-5.1) mmol/L Chloride (96-108) mmol/L Carbon Dioxide (22-29) mmol/L Anion Gap (12-20) BUN (9-16) mg/dL Creatinine (0.5-1.4) mg/dL Estim Creat Clear Calc Estimated GFR Random Glucose (60-115) mg/dL Calcium (8.4-10.2) mg/dL Total Bilirubin (0.0-1.0) mg/dL AST (5-37) U/L ALT (0-40) U/L Alkaline Phosphatase (39-117) U/L Total Protein (6.5-8.0) g/dL Albumin (3.5-5.0) g/dL Urine Color YELLOW Urine Appearance CLEAR Urine pH 7.0 (5.0-8.0) Ur Specific [place] 1.010 (1.005-1.025) Urine Protein NEG (NEG-TRACE) MG/DL Urine Glucose (UA) NEG (NEG) MG/DL Urine Ketones NEG (NEG) MG/DL Urine Blood TRACE (NEG) Urine Nitrite NEG (NEG) Ur Leukocyte Esterase TRACE H (NEG) Urine RBC 5-9 H (0) /HPF Urine WBC 1-4 (0-4) /HPF Urine WBC Clumps NOTED Ur Squamous Epith Cells TRACE /LPF Urine Bacteria TRACE /LPF Urine Mucus TRACE /LPF Urine Opiates Screen Not Detected (Not Detect) Urine Fentanyl Screen Not Detected (Not Detect) Ur Barbiturates Screen Not Detected (Not Detect) Ur Phencyclidine Scrn Not Detected (Not Detect) Ur Amphetamines Screen Not Detected (Not Detect) U Benzodiazepines Scrn Not Detected (Not Detect) Urine Cocaine Screen Not Detected (Not Detect) U Marijuana (THC) Screen Not Detected (Not Detect) Ethyl Alcohol mg/dL COVID-19 ([facility]) Negative (Negative) COVID-19 Clin Com See Note 11/17/21 11/17/21 11/17/21 Range/Units 21:42 21:42 21:42 WBC 6.2 (4.8-10.8) X10*3/uL RBC 4.65 (4.60-5.80) X10*6/uL Hgb 15.0 (14.0-18.0) g/dl Hct 42.5 (42.0-52.0) % MCV 91.4 (80.0-98.0) fL MCH 32.3 (27.0-33.0) pg MCHC 35.3 (31.0-36.0) g/dl RDW 12.1 (11.0-16.0) % Plt Count 257 (160-400) X10*3/uL MPV 8.6 L (9.4-12.4) fL Immature Gran % (Auto) 0.2 (0.0-0.4) % Neut % (Auto) 64.5 (45-73) % Lymph % (Auto) 23.5 (20-40) % Mckean % (Auto) 8.7 (2-11) % Eos % (Auto) 2.1 (0-4) % Baso % (Auto) 1.0 (0-2) % Lymph # (Auto) 1.5 (1.2-4.9) X10*3/uL Mckean # (Auto) 0.5 (0.1-1.2) X10*3/uL Eos # (Auto) 0.1 (0.0-0.4) X10*3/uL Baso # (Auto) 0.1 (0.0-0.2) X10*3/uL Abs Immat Gran (auto) 0.01 (0.00-0.03) X10*3/uL Absolute Neuts (auto) 4.0 (2.0-8.3) x10*3/uL Absolute Nucleated RBC 0.000 (0.0-0.012) X10*3/uL Nucleated RBC % (auto) 0.0 (0.0-0.2) /100WBC Sodium 132 L (135-145) mmol/L Potassium 4.6 (3.3-5.1) mmol/L Chloride 98 (96-108) mmol/L Carbon Dioxide 26 (22-29) mmol/L Anion Gap 13 (12-20) BUN 12 (9-16) mg/dL Creatinine 0.83 (0.5-1.4) mg/dL Estim Creat Clear Calc 94.0 Estimated GFR > 60 Random Glucose 168 H D (60-115) mg/dL Calcium 9.4 D (8.4-10.2) mg/dL Total Bilirubin 0.2 (0.0-1.0) mg/dL AST 21 (5-37) U/L ALT 17 (0-40) U/L Alkaline Phosphatase 92 D (39-117) U/L Total Protein 7.0 (6.5-8.0) g/dL Albumin 4.3 (3.5-5.0) g/dL Urine Color Urine Appearance Urine pH (5.0-8.0) Ur Specific [place] (1.005-1.025) Urine Protein (NEG-TRACE) MG/DL Urine Glucose (UA) (NEG) MG/DL Urine Ketones (NEG) MG/DL Urine Blood (NEG) Urine Nitrite (NEG) Ur Leukocyte Esterase (NEG) Urine RBC (0) /HPF Urine WBC (0-4) /HPF Urine WBC Clumps Ur Squamous Epith Cells /LPF Urine Bacteria /LPF Urine Mucus /LPF Urine Opiates Screen (Not Detect) Urine Fentanyl Screen (Not Detect) Ur Barbiturates Screen (Not Detect) Ur Phencyclidine Scrn (Not Detect) Ur Amphetamines Screen (Not Detect) U Benzodiazepines Scrn (Not Detect) Urine Cocaine Screen (Not Detect) U Marijuana (THC) Screen (Not Detect) Ethyl Alcohol < 10 mg/dL COVID-19 ([facility]) (Negative) COVID-19 Clin Com Critical Care Time Critical Care Time Critical Care Time: No Discharge Plan Discharge Clinical Impression: Urinary catheter in place, Anxiety, Acute on chronic urinary retention Patient Disposition: Home, Self-Care Additional Instructions: Take your medications as prescribed. If you were prescribed antibiotics today, it is important that you take your medication to their entirety, do not skip any doses, do not finish them early. Follow-up with your primary care provider this week. Return to the emergency department with new or worsening symptoms. Such as fevers, chills, chest pain, shortness of breath, nausea, vomiting, dizziness, headache, vision changes, lethargy, suicidal ideation, homicidal ideation, visual, auditory or tactile hallucinations In case of emergency call 911 Your postvoid residual was elevated meaning your retaining urine. An indwelling Santos catheter was placed, educated on proper care. You should follow-up with urology within the next 2-3 days. You should also follow-up with your PCP within a week. Follow up with the behavioral health team Prescriptions: No Action omeprazole 40 mg capsule,delayed release(DR/EC) 40 mg PO DAILY 30 Days Qty: 30 2RF atorvastatin 10 mg tablet 10 mg PO DAILY 30 Days Qty: 30 0RF haloperidol 5 mg tablet 1 tab PO BEDTIME carbamazepine 200 mg tablet 1 tab PO BID bethanechol chloride 50 mg tablet 1 tab PO TID aripiprazole 20 mg tablet 1 tab PO BEDTIME PRN (Reason: Anxiety) clonazepam 0.5 mg tablet 1 tab PO BID PRN (Reason: Anxiety) hydroxyzine HCl 10 mg tablet 1 tab PO TID trazodone 50 mg tablet 1 tab PO BEDTIME PRN (Reason: insomnia) tamsulosin 0.4 mg capsule 1 cap PO BEDTIME polyethylene glycol 3350 [Miralax] 17 gram powder in packet 17 g PO BID PRN (Reason: constipation) Qty: 14 0RF Referrals: Dk Rodriguez MD [Primary Care Provider] - 2 days Keon Liu MD [Physician] - 3 days [facility] [Provider Group] - 2 days
[2021-11-17 21:12] LABS: COVID-19 Test Negative (Negative)
[2021-11-17 21:17] LABS: Amphetamine Screen Urine Not Detected (Not Detect); Barbiturates, Urine Not Detected (Not Detect); Benzodiazepines Screen Urine Not Detected (Not Detect); Cannabinoid Screen Urine Not Detected (Not Detect); Cocaine Screen Urine Not Detected (Not Detect); Fentanyl, urine Not Detected (Not Detect); Opiate Screen Urine Not Detected (Not Detect); Phencyclidine Screen Urine Not Detected (Not Detect)
--- NOTE | 2021-11-17 21:29 | PC.NURSE ---
Patient requested to have his bladder scanned, post void residual was 446 ml, provider on bedside during bladder scan, will continue to monitor.
[2021-11-17 22:00] LABS: MANUAL DIFF FLAG NO
[2021-11-17 22:03] LABS: Basophils Absolute Auto 0.1 X10*3/uL (0.0-0.2); Eosinophils Absolute Auto 0.1 X10*3/uL (0.0-0.4); Eosinophils Percent Auto 2.1 % (0-4); Hematocrit 42.5 % (42.0-52.0); Imm Gran Abs Auto 0.01 X10*3/uL (0.00-0.03); Imm Gran Pct Auto 0.2 % (0.0-0.4); Lymphocytes Absolute Auto 1.5 X10*3/uL (1.2-4.9); Lymphocytes Percent Auto 23.5 % (20-40); Mean Corpuscular HGB Conc 35.3 g/dl (31.0-36.0); Mean Corpuscular Hemoglobin 32.3 pg (27.0-33.0); Mean Corpuscular Volume 91.4 fL (80.0-98.0); Mean Platelet Volume 8.6 fL (9.4-12.4); Monocytes Absolute Auto 0.5 X10*3/uL (0.1-1.2); Monocytes Percent Auto 8.7 % (2-11); Neutrophils Percent Auto 64.5 % (45-73); Platelet Count 257 X10*3/uL (160-400); Red Blood Count 4.65 X10*6/uL (4.60-5.80); Red Cell Distribution Width 12.1 % (11.0-16.0); White Blood Count 6.2 X10*3/uL (4.8-10.8)
[2021-11-17 22:13] LABS: Appearance Urine CLEAR; Color Urine YELLOW; Glucose Urine UA NEG (NEG); Leukocyte Esterase Urine TRACE (NEG); Nitrite Urine NEG (NEG); Urine Blood TRACE (NEG); Urine Ketones NEG (NEG); Urine Protein NEG (NEG-TRACE)
[2021-11-17 22:22] LABS: Bacteria Urine TRACE /LPF; Mucus Urine TRACE /LPF; Squamous Epithelial Cell Urine TRACE /LPF; WBC Clumps Urine NOTED
[2021-11-17 22:24] LABS: Ethanol < 10 mg/dL
[2021-11-17 22:26] LABS: Alanine Aminotransferase 17 U/L (0-40); Albumin Level 4.3 g/dL (3.5-5.0); Alkaline Phosphatase 92 U/L (39-117); Anion Gap 13 (12-20); Aspartate Amino Transferase 21 U/L (5-37); Bilirubin Total 0.2 mg/dL (0.0-1.0); Blood Urea Nitrogen 12 mg/dL (9-16); Calcium 9.4 mg/dL (8.4-10.2); Carbon Dioxide 26 mmol/L (22-29); Chloride 98 mmol/L (96-108); Estimated Glomerular Filt Rate > 60; Glucose Random 168 mg/dL (60-115); Potassium 4.6 mmol/L (3.3-5.1); Sodium 132 mmol/L (135-145)
[2021-11-18 00:37] VITALS: BP 132/85; PULSE 78; RESP 17; TEMP 36.5; O2SAT 98
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
--- NOTE | 2021-11-18 02:00 | PC.NURSE ---
Per order patient was asked to void, he used bathroom reported he voided very little, post void residual was 336 ml at 0200, patient compliant, patient voided 590 ml at 2320, provider notified, will continue to monitor.
--- NOTE | 2021-11-18 02:43 | PC.NURSE ---
Patient is constantly touching is Santos, required constant redirection, advised not to touch,
--- NOTE | 2021-11-18 05:39 | PC.NURSE ---
Patient in bed appears sleeping, no distress observed/reported, patient is not crises patient, cleared by care team, discharge paper ready, indwelling catheter ordered placed as ordered by the provider due to retention, no distress observed/reported, VSS, will continue to monitor.
--- NOTE | 2021-11-18 07:48 | PC.NURSE ---
PT INSTRUCTED ON HOW TO CHANGE LARGE MASON BAG TO LEG BAG. INSTRUCTED TO CALL [facility] THIS AM FOR APPT. GIVEN VOUCHER FOR [facility]
== END 2021-11-18 07:50 | disposition home or self-care (01) ==
PROVIDERS: Physician Assistant; Emergency Provider Internal Medicine; PCP Internal Medicine
DX: F41.9 Anxiety disorder, unspecified (principal); R33.9 Retention of urine, unspecified; F31.9 Bipolar disorder, unspecified; F25.9 Schizoaffective disorder, unspecified; Z79.899 Other long term (current) drug therapy; Z20.822 Contact with and (suspected) exposure to COVID-19
CPT/HCPCS: 36415; 51702; 51798; 80053; 80307; 81001; 82077; 85025; 87635; 99284

== ENCOUNTER 2021-11-20 00:07 | Emergency (ER) | payer MEDICARE, MEDICAID, SELFPAY ==
[2021-11-20 00:10] VITALS: BP 134/81; PULSE 105; RESP 18; TEMP 36.8; O2SAT 99; BMI 24.3
--- NOTE | 2021-11-20 01:54 | ED_ITS ---
HPI - Anxiety General Chief Complaint: Anxiety Stated Complaint: crisis Time Seen by Provider: 11/20/21 00:40 Source: patient Mode of arrival: ambulatory Limitations: no limitations History of Present Illness HPI narrative: 55-year-old male history of anxiety, bipolar disorder type 1, schizoaffective disorder, tubular adenoma of the colon here with multiple complaints. Patient tells me he does not feel safe in his current intermediate. He does not feel safe because other clients throw furniture around. He does have his own bedroom but feels like he can not stay in there all the time and so he feels that the common living areas are not safe for him. He decided to walk here today to speak to crisis but feels states the streets of [place] are crazy, there are riots out there. he does not feel like the intermediate staff care about him. He feels like they are talking about him. He is not happy there and wants to leave and get his own housing. Patient denies any suicidal or homicidal ideations. No substance use. Patient tells me that he was here on November 17 and had some urinary retention and so a Santos catheter was placed. He does not like the Santos catheter and wants it removed. He has an appointment in 5 days to see Urology but feels like he cannot wait that long because of the discomfort he has with the catheter. Related Data Home Medications Medication Instructions Recorded Confirmed aripiprazole 20 mg tablet 1 tab PO BEDTIME PRN Anxiety 05/26/21 11/17/21 bethanechol chloride 50 mg tablet 1 tab PO TID 05/26/21 11/17/21 carbamazepine 200 mg tablet 1 tab PO BID 05/26/21 11/17/21 clonazepam 0.5 mg tablet 1 tab PO BID PRN Anxiety 05/26/21 11/17/21 hydroxyzine HCl 10 mg tablet 1 tab PO TID 05/26/21 11/17/21 tamsulosin 0.4 mg capsule 1 cap PO BEDTIME 05/26/21 11/17/21 trazodone 50 mg tablet 1 tab PO BEDTIME PRN insomnia 05/26/21 11/17/21 haloperidol 5 mg tablet 1 tab PO BEDTIME 11/17/21 11/17/21 Previous Rx's Medication Instructions Recorded omeprazole 40 mg capsule,delayed 40 mg PO DAILY 30 days #30 caps 08/26/21 release atorvastatin 10 mg tablet 10 mg PO DAILY 30 days #30 tabs 10/27/21 polyethylene glycol 3350 17 gram 17 g PO BID PRN constipation #14 ea 11/04/21 oral powder packet (Miralax) Allergies Allergy/AdvReac Type Severity Reaction Status Date / Time No Known Allergies Allergy Unknown UNKNOWN Verified 10/28/21 23:24 [NO KNOWN ALLERGIES] Review of Systems Review of Systems: Yes all other systems are reviewed and are negative Constitutional: Constitutional: Reports no additional constitutional complaints, Denies body ache(s), Denies chills, Denies fever(s), Denies headache(s) and Denies weakness Eyes: Eyes: Reports no additional eye complaints and Denies change in vision ENT: Reports system reviewed and no additional complaints, except as documented, Denies dizziness, Denies headache(s), Denies nasal congestion, Denies nasal discharge and Denies neck pain Cardiovascular: Cardiovascular: Reports no additional cardiovascular complaints, Denies chest pain, Denies leg edema and Denies dyspnea Respiratory: Respiratory: Reports no additional respiratory complaints, Denies cough and Denies dyspnea Gastrointestinal: Gastrointestinal: Reports no additional gastrointestinal complaints, Denies abdominal pain, Denies diarrhea, Denies nausea and Denies vomiting Genitourinary: Genitourinary: Denies urinary incontinence Musculoskeletal: Musculoskeletal: Reports no additional musculoskeletal complaints, Denies back pain, Denies arthralgias, Denies joint swelling, Denies neck pain, Denies numbness and Denies tingling Integumentary/Breasts: Skin/Breast: Reports system reviewed and no additional complaints, except as docu and Denies rash Neurologic: Reports system reviewed and no additional complaints, except as documented, Denies Abnormal speech present, Denies dizziness, Denies headache(s), Denies numbness, Denies tingling and Denies weakness Psychiatric: Psychiatric: Reports anxiety and Denies suicidal ideation [facility] Past Medical History Attestation statement: The following information was validated with the patient. Source: old records reviewed and nursing notes reviewed Medical History Back pain Bipolar 1 disorder Mood disorder Thought disorder Tubular adenoma of colon (~2019) Surgical History History of colonoscopy (~04/2019) History of open reduction and internal fixation (ORIF) procedure (~08/2018) History of prostate surgery (~04/2019) Family History Family History Father Lung cancer BPH (benign prostatic hyperplasia) Mother Dementia Brother Myocardial infarction Other Mental health problem Substance abuse Social History Social History Household Members: None Housing: Assisted Living Facility Housing Other:: intermediate Do you presently have visiting nurse or other home services: No Alcohol intake: never Patient Tobacco Use Status: Current everyday Tobacco user Tobacco use type: Cigarette Cigarette Packs Per Day: 1 Cigarettes Per Day: 20.0 Years Smoked: 10 e-Cigarette/Vaping Use: Never Used Second Hand Smoke Exposure: Yes Advance Directives: No service: No Current occupational status: employed Current occupation: [employer] Sexual orientation: Decline to Answer Cognitive needs: No Hearing needs: No Vision needs: Yes Physical Exam Vital Signs: Vital Signs: Last Vital Signs Temp 98.2 F 11/20/21 00:10 Pulse 105 H 11/20/21 00:10 Resp 18 11/20/21 00:10 BP 134/81 11/20/21 00:10 Pulse Ox 99 11/20/21 00:10 O2 Del Method 11/20/21 00:10 BMI result Body Mass Index 24.3 Const: General: cooperative, healthy appearing, comfortable and no acute distress Orientation/consciousness: patient oriented x3 Limitations: no limitations HEENT: Head: Yes normal to inspection Ears: hearing grossly normal bilaterally General nose exam: Normal external nose present Face and sinus: Yes normal facial exam Mouth: Normal oral and palatal mucosa present Throat: Yes posterior oropharynx normal Eyes: General: appearance normal, both eyes and all related structures Pupils: Equal, round and reactive pupils present Neck: Neck: Yes normal visual inspection Chest: Chest palpation & inspection: normal inspection of the chest Resp: Effort & Inspection: normal respiratory effort Auscultation: clear to auscultation bilaterally Cardio: Rate: regular rate Rhythm: regular rhythm Peripheral pulses: Peripheral pulses 2+ throughout GI: Inspection: Yes normal to inspection Palpation (GI): Soft to palpation and nontender Auscultation: normal bowel sounds Back/Spine/Pelvis: Thoracic/Lumbar Spine: thoracic and lumbar spine normal to inspection Skin: General skin exam: no rashes or lesions noted Neuro: General: patient oriented x3, no focal motor deficits and normal sensation to monofilament Cranial nerves: Yes CN's II-XII intact bilaterally and Yes Equal, round and reactive pupils present Cognition (Neuro): normal cognition Speech: No Abnormal speech present Gait exam (Neuro): Normal gait present Motor exam (neuro): 5/5 motor strength present throughout Extrem: General: Yes normal to inspection Course Reevaluation(s) Reevaluation #1: patient does not want a remain anymore to speak to crisis. He can follow up with his outpatient providers. He is not suicidal or homicidal. Time: 02:00 MDM - Anxiety MDM Narrative Medical decision making narrative: 55-year-old male here because he does not feel safe at his intermediate and feels quite anxious and paranoid about the state of the streets of [place]. No SI/HI/AVH/substance use. No concern for acute ingestion or trauma. Wants to speak to crisis. Also longstanding history of urinary retention with chronic Santos which was removed on November 09 with subsequent ER visit requiring Santos catheter placement on November 17. Patient has outpatient follow-up with Urology in 5 days but is wanting his Santos catheter removed today due to discomfort. I explained to the patient that is not a good idea as he will likely require Santos catheter placement very shortly after removal. patient quite angry with this and states you just don't want to look at it...I am no different from other men..look at it! Medical Records Attestation: I reviewed the patient's medical records. Lab Data Attestation: I reviewed the patient's lab results. Discharge Plan Discharge Clinical Impression: Acute anxiety Patient Disposition: Home, Self-Care Instructions: Anxiety (ED) Additional Instructions: follow-up with your outpatient providers you should follow-up with urology to have the catheter removed. Prescriptions: No Action omeprazole 40 mg capsule,delayed release(DR/EC) 40 mg PO DAILY 30 Days Qty: 30 2RF atorvastatin 10 mg tablet 10 mg PO DAILY 30 Days Qty: 30 0RF haloperidol 5 mg tablet 1 tab PO BEDTIME carbamazepine 200 mg tablet 1 tab PO BID bethanechol chloride 50 mg tablet 1 tab PO TID aripiprazole 20 mg tablet 1 tab PO BEDTIME PRN (Reason: Anxiety) clonazepam 0.5 mg tablet 1 tab PO BID PRN (Reason: Anxiety) hydroxyzine HCl 10 mg tablet 1 tab PO TID trazodone 50 mg tablet 1 tab PO BEDTIME PRN (Reason: insomnia) tamsulosin 0.4 mg capsule 1 cap PO BEDTIME polyethylene glycol 3350 [Miralax] 17 gram powder in packet 17 g PO BID PRN (Reason: constipation) Qty: 14 0RF Referrals: Keon Liu MD [Physician] - 5 days (as scheduled ) Interventions: ED Discharge Assessment Last Done: 11/20/21 02:37 Discharge Date/Time: 11/20/21 02:38
== END 2021-11-20 02:38 | disposition home or self-care (01) ==
PROVIDERS: Emergency Provider Emergency Medicine Emergency Medical Services; PCP Internal Medicine
DX: F25.9 Schizoaffective disorder, unspecified (principal); F41.1 Generalized anxiety disorder; F43.0 Acute stress reaction; R33.9 Retention of urine, unspecified; F17.210 Nicotine dependence, cigarettes, uncomplicated; Z71.6 Tobacco abuse counseling; Z79.899 Other long term (current) drug therapy
CPT/HCPCS: 99282; 99283

== ENCOUNTER 2021-11-22 23:58 | Emergency (ER) | payer MEDICARE, MEDICAID, SELFPAY ==
[2021-11-23 00:08] VITALS: BP 115/76; PULSE 86; RESP 18; TEMP 36.7; O2SAT 97; BMI 20.3
--- NOTE | 2021-11-23 00:14 | ED_ITS ---
HPI - General Adult General Chief complaint: Psychiatric Symptoms Stated complaint: Upset at [facility] staff Time Seen by Provider: 11/23/21 00:03 Source: patient Mode of arrival: ambulatory Limitations: no limitations History of Present Illness HPI narrative: Patient comes to the emergency room complaining of not being happy where he lives at his [facility]. Patient states that he is here to relax. Patient re questing a becca nicole. Patient denies any other complaints. Related Data Home Medications Medication Instructions Recorded Confirmed aripiprazole 20 mg tablet 1 tab PO BEDTIME PRN Anxiety 05/26/21 11/17/21 bethanechol chloride 50 mg tablet 1 tab PO TID 05/26/21 11/17/21 carbamazepine 200 mg tablet 1 tab PO BID 05/26/21 11/17/21 clonazepam 0.5 mg tablet 1 tab PO BID PRN Anxiety 05/26/21 11/17/21 hydroxyzine HCl 10 mg tablet 1 tab PO TID 05/26/21 11/17/21 tamsulosin 0.4 mg capsule 1 cap PO BEDTIME 05/26/21 11/17/21 trazodone 50 mg tablet 1 tab PO BEDTIME PRN insomnia 05/26/21 11/17/21 haloperidol 5 mg tablet 1 tab PO BEDTIME 11/17/21 11/17/21 Previous Rx's Medication Instructions Recorded omeprazole 40 mg capsule,delayed 40 mg PO DAILY 30 days #30 caps 08/26/21 release atorvastatin 10 mg tablet 10 mg PO DAILY 30 days #30 tabs 10/27/21 polyethylene glycol 3350 17 gram 17 g PO BID PRN constipation #14 ea 11/04/21 oral powder packet (Miralax) sulfamethoxazole 800 1 tab PO BID #6 tabs 11/23/21 mg-trimethoprim 160 mg tablet (Bactrim DS) Allergies Allergy/AdvReac Type Severity Reaction Status Date / Time No Known Allergies Allergy Unknown UNKNOWN Verified 10/28/21 23:24 [NO KNOWN ALLERGIES] Review of Systems Review of Systems: Constitutional : No Weight loss, No Fever, No Chills, No Night Sweats, No Fatigue, No Malaise ENT/Mouth : No Hearing loss, No Ear Pain, No Nasal Congestion, No Sinus Pain, No Hoarseness, No sore throat, No Rhinorrhea, No Swallowing Difficulty Eyes: No Eye Pain, No Swelling, No Redness, No Foreign Body, No Discharge, No Vision Changes Cardiovascular : No Chest Pain, No SOB, No Dyspnea on Exertion, No Orthopnea, No Edema, No Palpitations Respiratory : No Cough, No Sputum, No Wheezing, No Smoke Exposure, No Dyspnea Gastrointestinal : No Nausea, No Vomiting, No Diarrhea, No Constipation, No abdominal Pain, No Hematochezia, No Melena Genitourinary : no irregular bleeding, No Dysuria, No Urinary Frequency, No Hematuria, No Urinary Incontinence, No Urgency, No Flank Pain, No Urinary Flow Changes, No Hesitancy Musculoskeletal : No joint pain, No Myalgias, No Joint Swelling Skin : No Skin Lesions, No rash Neuro : No Weakness, No Numbness, No Paresthesias, No Loss of Consciousness, No Dizziness, No Headache Psych : Anxiety, No Depression, No SI/HI/AH/VH, No Social Issues, Heme/Lymph: No Bruising, No Bleeding,No Lymphadenopathy Endocrine : No Polyuria, No Polydipsia, No Temperature Intolerance PMFSH Past Medical History Medical History Back pain Bipolar 1 disorder Mood disorder Thought disorder Tubular adenoma of colon (~2018) Surgical History History of colonoscopy (~04/2019) History of open reduction and internal fixation (ORIF) procedure (~08/2018) History of prostate surgery (~04/2019) Family History Family History Father Lung cancer BPH (benign prostatic hyperplasia) Mother Dementia Brother Myocardial infarction Other Mental health problem Substance abuse Social History Social History Household Members: None Housing: Assisted Living Facility Housing Other:: [facility] Do you presently have visiting nurse or other home services: No Alcohol intake: never Patient Tobacco Use Status: Current everyday Tobacco user Tobacco use type: Cigarette Cigarette Packs Per Day: 1 Cigarettes Per Day: 20.0 Years Smoked: 10 e-Cigarette/Vaping Use: Never Used Second Hand Smoke Exposure: Yes Advance Directives: No service: No Current occupational status: employed Current occupation: [employer] Sexual orientation: Decline to Answer Cognitive needs: No Hearing needs: No Vision needs: Yes Physical Exam ED Vital Signs: Vital Signs - 24 hr 11/23/21 00:08 11/23/21 00:43 Temperature 98.0 F Pulse Rate 86 80 Respiratory Rate 18 18 Blood Pressure 115/76 129/88 Pulse Oximetry 97 98 Oxygen Delivery Method Room Air Room Air BMI result Body Mass Index 20.3 Const Other: Appearance: Alert. Oriented X3. No acute distress. Eyes: Pupils equal, round and reactive to light. ENT: Pharynx normal. Neck: Normal inspection. Neck supple. No lymph nodes noted. No crepitus CVS: Normal heart rate and rhythm. Pulses normal. Normal S1 and S2 Respiratory: No respiratory distress. Breath sounds normal. No Wheezing. No rales Abdomen: Soft and nontender. No rigidity. No distention. Skin: Skin warm and dry. Normal skin color. Normal skin turgor. Extremities: No lower extremity edema. No Lacerations. No Rash Neuro: Oriented X 3. No motor deficit. No sensory deficit. Moving all extremities. No slurred speech. CN 2 through 12 grossly intact Psych: calm, cooperative, normal affect Course Course Course Narrative: Patient has no medical complaints, states that he is here to relax. Patient was of her gingerale and food. Patient has a UTI, prescription sent to patient's pharmacy Medical Decision Making Lab Data Labs: Lab Results 11/23/21 Range/Units 01:07 Urine Color YELLOW Urine Appearance HAZY Urine pH 7.0 (5.0-8.0) Ur Specific [place] 1.015 (1.005-1.025) Urine Protein 1+ H (NEG-TRACE) MG/DL Urine Glucose (UA) NEG (NEG) MG/DL Urine Ketones NEG (NEG) MG/DL Urine Blood 3+ H (NEG) Urine Nitrite POS H (NEG) Ur Leukocyte Esterase 2+ H (NEG) Urine RBC 30-49 H (0) /HPF Urine WBC 1-4 (0-4) /HPF Ur Squamous Epith Cells 1+ /LPF Urine Bacteria 4+ /LPF Discharge Plan Discharge Clinical Impression: Anxiety, Acute UTI Patient Disposition: Home, Self-Care Instructions: Urinary Tract Infection in Men (ED), Anxiolysis in Adults (ED) Additional Instructions: Please follow-up with your primary care physician tomorrow. If you have any worsening or new symptoms, please return to the emergency room or call 911 Prescriptions: New sulfamethoxazole-trimethoprim [Bactrim DS] 800-160 mg tablet 1 tab PO BID Qty: 6 0RF No Action omeprazole 40 mg capsule,delayed release(DR/EC) 40 mg PO DAILY 30 Days Qty: 30 2RF atorvastatin 10 mg tablet 10 mg PO DAILY 30 Days Qty: 30 0RF haloperidol 5 mg tablet 1 tab PO BEDTIME carbamazepine 200 mg tablet 1 tab PO BID bethanechol chloride 50 mg tablet 1 tab PO TID aripiprazole 20 mg tablet 1 tab PO BEDTIME PRN (Reason: Anxiety) clonazepam 0.5 mg tablet 1 tab PO BID PRN (Reason: Anxiety) hydroxyzine HCl 10 mg tablet 1 tab PO TID trazodone 50 mg tablet 1 tab PO BEDTIME PRN (Reason: insomnia) tamsulosin 0.4 mg capsule 1 cap PO BEDTIME polyethylene glycol 3350 [Miralax] 17 gram powder in packet 17 g PO BID PRN (Reason: constipation) Qty: 14 0RF
[2021-11-23 00:43] VITALS: BP 129/88; PULSE 80; RESP 18; O2SAT 98
[2021-11-23 01:14] LABS: Appearance Urine HAZY; Color Urine YELLOW; Glucose Urine UA NEG (NEG); Leukocyte Esterase Urine 2+ (NEG); Nitrite Urine POS (NEG); Specific Gravity - Urine 1.015 (1.005-1.025); UACC Culture Trigger YES; Urine Blood 3+ (NEG); Urine Ketones NEG (NEG); Urine Protein 1+ MG/DL (NEG-TRACE)
[2021-11-23 01:25] LABS: Bacteria Urine 4+ /LPF; RBC Urine 30-49 /HPF (0); Squamous Epithelial Cell Urine 1+ /LPF
[2021-11-23 03:34] VITALS: RESP 14
== END 2021-11-23 05:42 | disposition home or self-care (01) ==
PROVIDERS: Emergency Provider Emergency Medicine
DX: N39.0 Urinary tract infection, site not specified (principal); F41.1 Generalized anxiety disorder; F33.1 Major depressive disorder, recurrent, moderate; F43.0 Acute stress reaction; F17.210 Nicotine dependence, cigarettes, uncomplicated; Z71.6 Tobacco abuse counseling; Z79.899 Other long term (current) drug therapy
CPT/HCPCS: 81001; 87086; 87088; 87186; 99284; 99285

== ENCOUNTER 2021-11-27 22:35 | Emergency (ER) | payer MEDICARE, MEDICAID, SELFPAY ==
[2021-11-27 22:36] VITALS: BP 106/70; PULSE 92; RESP 18; TEMP 36.9; O2SAT 100; BMI 22.8
--- NOTE | 2021-11-27 22:43 | PC.NURSE ---
LE[employer] OPERATOR to triage to assess patient. Pt denied SI/HI, audio/visual hallucinations. Pt confirmed that he continues to be upset with [facility] staff. Pt advised to follow up with PCP and social work. Pt verbalized d/c instructions. Pt given snack and drink prior to d/c.
--- NOTE | 2021-11-27 22:45 | ED.PSYCH ---
HPI - Psych General Chief Complaint: Psychiatric Symptoms Stated Complaint: crisis Source: patient Mode of arrival: ambulatory Limitations: no limitations History of Present Illness HPI Narrative: 55-year-old male presents for evaluation because he has concerns about his [employer] documentation. He has no medical or psychiatric complaints at this time. MD complaint: anxiety Onset (ago): day(s) Duration: constant History of same: Yes Relieving factors: none Exacerbating factors: none Context: significant life stressor Associated psychiatric symptoms: depression Associated symptoms: denies other symptoms Treatments prior to arrival: none Related Data Home Medications Medication Instructions Recorded Confirmed aripiprazole 20 mg tablet 1 tab PO BEDTIME PRN Anxiety 05/26/21 11/17/21 bethanechol chloride 50 mg tablet 1 tab PO TID 05/26/21 11/17/21 carbamazepine 200 mg tablet 1 tab PO BID 05/26/21 11/17/21 clonazepam 0.5 mg tablet 1 tab PO BID PRN Anxiety 05/26/21 11/17/21 hydroxyzine HCl 10 mg tablet 1 tab PO TID 05/26/21 11/17/21 tamsulosin 0.4 mg capsule 1 cap PO BEDTIME 05/26/21 11/17/21 trazodone 50 mg tablet 1 tab PO BEDTIME PRN insomnia 05/26/21 11/17/21 haloperidol 5 mg tablet 1 tab PO BEDTIME 11/17/21 11/17/21 Previous Rx's Medication Instructions Recorded omeprazole 40 mg capsule,delayed 40 mg PO DAILY 30 days #30 caps 08/26/21 release atorvastatin 10 mg tablet 10 mg PO DAILY 30 days #30 tabs 10/27/21 polyethylene glycol 3350 17 gram 17 g PO BID PRN constipation #14 ea 11/04/21 oral powder packet (Miralax) sulfamethoxazole 800 1 tab PO BID #6 tabs 11/23/21 mg-trimethoprim 160 mg tablet (Bactrim DS) Allergies Allergy/AdvReac Type Severity Reaction Status Date / Time No Known Allergies Allergy Unknown UNKNOWN Verified 10/28/21 23:24 [NO KNOWN ALLERGIES] Review of Systems Review of Systems: Constitutional: No Fever, No Chills ENT/Mouth: No Ear Pain, No Nasal Congestion, No sore throat Eyes: No Eye Pain, No Swelling, No Redness Cardiovascular: No Chest Pain, No SOB Respiratory: No Cough, No Sputum, No Dyspnea Gastrointestinal: No Nausea, No Vomiting, No Diarrhea, No Hematochezia, No Melena Genitourinary: No Dysuria, No Urinary Frequency, No Hematuria Musculoskeletal: No Myalgias Skin: No Skin Lesions, No rash Neuro: No Weakness, No Numbness, No Paresthesias, No Dizziness, No Headache Psych: positive Anxiety, positive Depression, no SI/HI Heme/Lymph: No Lymphadenopathy Endocrine: No Polyuria, No Polydipsia Yes all other systems are reviewed and are negative [facility] Past Medical History Attestation statement: The following information was validated with the patient. Source: old records reviewed Medical History Back pain Bipolar 1 disorder Mood disorder Thought disorder Tubular adenoma of colon (~2018) Surgical History History of colonoscopy (~04/2019) History of open reduction and internal fixation (ORIF) procedure (~08/2018) History of prostate surgery (~04/2019) Family History Family History Father Lung cancer BPH (benign prostatic hyperplasia) Mother Dementia Brother Myocardial infarction Other Mental health problem Substance abuse Social History Social History Household Members: None Housing: Assisted Living Facility Housing Other:: nursing home Do you presently have visiting nurse or other home services: No Alcohol intake: never Patient Tobacco Use Status: Current everyday Tobacco user Tobacco use type: Cigarette Cigarette Packs Per Day: 1 Cigarettes Per Day: 20.0 Years Smoked: 10 e-Cigarette/Vaping Use: Never Used Second Hand Smoke Exposure: Yes Advance Directives: No Advance Directives Information Provided: No service: No Current occupational status: employed Current occupation: [employer] Sexual orientation: Decline to Answer Cognitive needs: No Hearing needs: No Vision needs: Yes Physical Exam Vital Signs: Vital Signs: Last Vital Signs Temp 98.5 F 11/27/21 22:36 Pulse 92 11/27/21 22:36 Resp 18 11/27/21 22:36 BP 106/70 11/27/21 22:36 Pulse Ox 100 11/27/21 22:36 O2 Del Method 11/27/21 22:36 BMI result Body Mass Index 22.8 Appearance: Alert. Oriented X3. No acute distress. Eyes: Pupils equal, round and reactive to light. ENT: Pharynx normal. Neck: Normal inspection. CVS: Normal heart rate and rhythm. Respiratory: No respiratory distress. Abdomen: Soft and nontender. Skin: Skin warm and dry. Normal skin color. Normal skin turgor. Extremities: No lower extremity edema. Neuro: No motor deficit. No sensory deficit. Cranial nerves 2-12 intact. Course Course Course Narrative: 55-year-old male presents to the emergency department for anxiety regarding a [employer] document. He does not have any medical or psychiatric complaints at this time. I did inform him that [facility] [address] [place] is not a medical emergency. He was offered a beverage and a sandwich which he gladly accepted and was discharged from this facility from the triage room. MDM - Psych Differential Diagnosis Differential diagnosis: Likely acute anxiety Discharge Plan Discharge Clinical Impression: Anxiety Patient Disposition: Home, Self-Care Instructions: Anxiety (ED) Additional Instructions: Follow-up with primary care physician and outpatient psychiatry as scheduled Thank you for choosing this emergency department for evaluation. Please follow-up with primary care physician as needed. Return to the emergency department for any new, concerning, or worsening symptoms. Prescriptions: No Action omeprazole 40 mg capsule,delayed release(DR/EC) 40 mg PO DAILY 30 Days Qty: 30 2RF atorvastatin 10 mg tablet 10 mg PO DAILY 30 Days Qty: 30 0RF haloperidol 5 mg tablet 1 tab PO BEDTIME carbamazepine 200 mg tablet 1 tab PO BID bethanechol chloride 50 mg tablet 1 tab PO TID aripiprazole 20 mg tablet 1 tab PO BEDTIME PRN (Reason: Anxiety) clonazepam 0.5 mg tablet 1 tab PO BID PRN (Reason: Anxiety) hydroxyzine HCl 10 mg tablet 1 tab PO TID trazodone 50 mg tablet 1 tab PO BEDTIME PRN (Reason: insomnia) tamsulosin 0.4 mg capsule 1 cap PO BEDTIME polyethylene glycol 3350 [Miralax] 17 gram powder in packet 17 g PO BID PRN (Reason: constipation) Qty: 14 0RF sulfamethoxazole-trimethoprim [Bactrim DS] 800-160 mg tablet 1 tab PO BID Qty: 6 0RF
== END 2021-11-27 22:50 | disposition home or self-care (01) ==
PROVIDERS: Emergency Provider Emergency Medicine
DX: R45.1 Restlessness and agitation (principal)
CPT/HCPCS: 99282

== ENCOUNTER 2021-12-05 21:52 | Emergency (ER) | payer MEDICARE, MEDICAID, SELFPAY ==
--- NOTE | 2021-12-05 21:57 | ED_ITS ---
HPI - Psych General Chief Complaint: Psychiatric Symptoms Stated Complaint: crisis Time Seen by Provider: 12/05/21 21:57 Source: patient Mode of arrival: EMS Limitations: no limitations History of Present Illness HPI Narrative: patient history of schizoaffective disorder bipolar disorder multiple ED visits for adjustment reasons this time patient was not happy with staff says his medicines not working was punching himself patient Section 12 prior to arrival Related Data Home Medications Medication Instructions Recorded Confirmed aripiprazole 20 mg tablet 1 tab PO QAM 05/26/21 12/05/21 bethanechol chloride 50 mg tablet 1 tab PO TID 05/26/21 12/05/21 carbamazepine 200 mg tablet 500 mg PO BID 05/26/21 12/05/21 clonazepam 0.5 mg tablet 1 tab PO DAILY 05/26/21 12/05/21 hydroxyzine HCl 10 mg tablet 1 tab PO TID PRN Anxiety 05/26/21 12/05/21 tamsulosin 0.4 mg capsule 1 cap PO BEDTIME 05/26/21 12/05/21 trazodone 50 mg tablet 1 tab PO BEDTIME PRN insomnia 05/26/21 12/05/21 haloperidol 5 mg tablet 10 mg PO BEDTIME 11/17/21 12/05/21 atorvastatin 10 mg tablet 10 mg PO BEDTIME 12/05/21 12/05/21 haloperidol 5 mg tablet 5 mg PO QAM 12/05/21 12/05/21 Previous Rx's Medication Instructions Recorded omeprazole 40 mg capsule,delayed 40 mg PO DAILY 30 days #30 caps 08/26/21 release Allergies Allergy/AdvReac Type Severity Reaction Status Date / Time No Known Allergies Allergy Unknown UNKNOWN Verified 10/28/21 23:24 [NO KNOWN ALLERGIES] Review of Systems Review of Systems: Yes all other systems are reviewed and are negative PMF Past Medical History Medical History Anxiety Back pain Benign prostatic hyperplasia with lower urinary tract symptoms Bipolar 1 disorder Constipation Mood disorder Personal history of nicotine dependence Pure hypercholesterolemia Schizoaffective disorder, bipolar type Thought disorder Tubular adenoma of colon (~2018) Surgical History History of colonoscopy (~04/2019) History of open reduction and internal fixation (ORIF) procedure (~08/2018) History of prostate surgery (~04/2019) Family History Family History Father Lung cancer BPH (benign prostatic hyperplasia) Mother Dementia Brother Myocardial infarction Other Mental health problem Substance abuse Social History Social History Household Members: None Housing: Assisted Living Facility Housing Other:: skilled nursing Do you presently have visiting nurse or other home services: No Alcohol intake: never Patient Tobacco Use Status: Current everyday Tobacco user Tobacco use type: Cigarette Cigarette Packs Per Day: 1 Cigarettes Per Day: 20.0 Years Smoked: 10 e-Cigarette/Vaping Use: Never Used Second Hand Smoke Exposure: Yes Advance Directives: No Advance Directives Information Provided: No service: No Current occupational status: employed Current occupation: [employer] Sexual orientation: Decline to Answer Cognitive needs: No Hearing needs: No Vision needs: Yes Physical Exam Vital Signs: Vital Signs: Last Vital Signs Temp 97.3 F 12/05/21 21:58 Pulse 72 12/05/21 21:58 Resp 17 12/05/21 21:58 BP 111/78 12/05/21 21:58 Pulse Ox 97 12/05/21 21:58 O2 Del Method 12/05/21 21:58 BMI result Body Mass Index 23.6 Appearance: Alert. Oriented X3. No acute distress. anxious Eyes: PERRLA, No Nystagmus ENT: Pharynx normal. Oral Mucosa moist Neck: Normal inspection. Neck supple. CVS: Normal heart rate and rhythm. Pulses normal. Respiratory: No respiratory distress. Equal air entry bilateral, no wheezing/rales/rhonchi Abdomen: Soft and nontender. Bowel sounds are present, no mass palpable, no CVA tenderness Skin: Skin warm and dry. Normal skin color. Normal skin turgor. Extremities: No lower extremity edema. No calf tenderness psych: anxious denies any delusions hallucinations no suicidal ideation or homicidal feeling Neuro: Oriented X 3. No motor deficit. No sensory deficit.No cerebellar signs , cranial nerves II-XII intact MDM - Psych MDM Narrative Medical decision making narrative: 01:00 patient is sleeping at this time relaxed waiting for [facility] to come and evaluate him Medical Records Attestation: I reviewed the patient's medical records. Lab Data Attestation: I reviewed the patient's lab results. Labs: Lab Results 12/05/21 12/05/21 12/05/21 Range/Units 22:13 22:13 22:15 Urine Color YELLOW Urine Appearance CLEAR Urine pH 7.0 (5.0-8.0) Ur Specific [place] 1.010 (1.005-1.025) Urine Protein NEG (NEG-TRACE) MG/DL Urine Glucose (UA) NEG (NEG) MG/DL Urine Ketones NEG (NEG) MG/DL Urine Blood TRACE (NEG) Urine Nitrite NEG (NEG) Ur Leukocyte Esterase NEG (NEG) Urine RBC 1-4 (0) /HPF Urine WBC 1-4 (0-4) /HPF Ur Squamous Epith Cells 1+ /LPF Urine Bacteria 1+ /LPF Urine Opiates Screen Not Detected (Not Detect) Urine Fentanyl Screen Not Detected (Not Detect) Ur Barbiturates Screen Not Detected (Not Detect) Ur Phencyclidine Scrn Not Detected (Not Detect) Ur Amphetamines Screen Not Detected (Not Detect) U Benzodiazepines Scrn Not Detected (Not Detect) Urine Cocaine Screen Not Detected (Not Detect) U Marijuana (THC) Screen Not Detected (Not Detect) COVID-19 (LEE) Negative (Negative) COVID-19 Clin Com See Note Discharge Plan Discharge Clinical Impression: Adjustment disorder, Chronic schizophrenia, Acute anxiety Patient Disposition: Still a Patient Prescriptions: No Action omeprazole 40 mg capsule,delayed release(DR/EC) 40 mg PO DAILY 30 Days Qty: 30 2RF haloperidol 5 mg tablet 10 mg PO BEDTIME carbamazepine 200 mg tablet 500 mg PO BID bethanechol chloride 50 mg tablet 1 tab PO TID aripiprazole 20 mg tablet 1 tab PO QAM clonazepam 0.5 mg tablet 1 tab PO DAILY hydroxyzine HCl 10 mg tablet 1 tab PO TID PRN (Reason: Anxiety) trazodone 50 mg tablet 1 tab PO BEDTIME PRN (Reason: insomnia) tamsulosin 0.4 mg capsule 1 cap PO BEDTIME atorvastatin 10 mg tablet 10 mg PO BEDTIME haloperidol 5 mg tablet 5 mg PO QAM
[2021-12-05 21:58] VITALS: BP 111/78; PULSE 72; RESP 17; TEMP 36.3; O2SAT 97; BMI 23.6
[2021-12-05 22:24] LABS: Appearance Urine CLEAR; Color Urine YELLOW; Glucose Urine UA NEG (NEG); Leukocyte Esterase Urine NEG (NEG); Nitrite Urine NEG (NEG); Urine Blood TRACE (NEG); Urine Ketones NEG (NEG); Urine Protein NEG (NEG-TRACE)
[2021-12-05 22:32] LABS: Amphetamine Screen Urine Not Detected (Not Detect); Barbiturates, Urine Not Detected (Not Detect); Benzodiazepines Screen Urine Not Detected (Not Detect); Cannabinoid Screen Urine Not Detected (Not Detect); Cocaine Screen Urine Not Detected (Not Detect); Fentanyl, urine Not Detected (Not Detect); Opiate Screen Urine Not Detected (Not Detect); Phencyclidine Screen Urine Not Detected (Not Detect)
[2021-12-05 22:34] LABS: Bacteria Urine 1+ /LPF; Squamous Epithelial Cell Urine 1+ /LPF
[2021-12-05 22:55] LABS: COVID-19 Test Negative (Negative)
--- NOTE | 2021-12-06 04:55 | PC.NURSE ---
Patient slept through the night, no distress observed/reported, patient well engaged with [facility], disposition current provider, VSS, behavior appropriate, med rec completed/pending provider's approval, will continue to monitor.
== END 2021-12-06 07:50 | disposition home or self-care (01) ==
PROVIDERS: Internal Medicine; Emergency Provider Emergency Medicine Emergency Medical Services
DX: F25.9 Schizoaffective disorder, unspecified (principal); F41.1 Generalized anxiety disorder; F43.0 Acute stress reaction; Z20.822 Contact with and (suspected) exposure to COVID-19; Z79.899 Other long term (current) drug therapy
CPT/HCPCS: 80307; 81001; 87635; 99283; 99284

== ENCOUNTER 2021-12-08 22:10 | Emergency (ER) | payer MEDICARE, MEDICAID, SELFPAY ==
[2021-12-08 22:26] VITALS: BP 121/84; PULSE 88; RESP 18; TEMP 36.9; O2SAT 95; BMI 25.0
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
--- NOTE | 2021-12-08 22:40 | PC.NURSE ---
patient was seen in triage by provider, pt refusing to sign discharge papers and states I am not walking home in the dark at night security is aware pt is discharged.
== END 2021-12-08 22:46 | disposition home or self-care (01) ==
PROVIDERS: Emergency Provider Emergency Medicine
DX: F41.9 Anxiety disorder, unspecified (principal); F17.200 Nicotine dependence, unspecified, uncomplicated; F25.0 Schizoaffective disorder, bipolar type
CPT/HCPCS: 99282

== ENCOUNTER 2021-12-22 14:24 | Outpatient (REF) | payer MEDICARE, MEDICAID, SELFPAY ==
[2021-12-22 14:47] LABS: MANUAL DIFF FLAG NO
[2021-12-22 15:02] LABS: Basophils Absolute Auto 0.1 X10*3/uL (0.0-0.2); Basophils Percent Auto 0.9 % (0-2); Eosinophils Absolute Auto 0.1 X10*3/uL (0.0-0.4); Eosinophils Percent Auto 1.3 % (0-4); Hematocrit 40.7 % (42.0-52.0); Hemoglobin 14.2 g/dl (14.0-18.0); Imm Gran Abs Auto 0.02 X10*3/uL (0.00-0.03); Imm Gran Pct Auto 0.3 % (0.0-0.4); Lymphocytes Absolute Auto 1.6 X10*3/uL (1.2-4.9); Lymphocytes Percent Auto 23.6 % (20-40); Mean Corpuscular HGB Conc 34.9 g/dl (31.0-36.0); Mean Corpuscular Hemoglobin 32.1 pg (27.0-33.0); Mean Corpuscular Volume 91.9 fL (80.0-98.0); Mean Platelet Volume 8.5 fL (9.4-12.4); Monocytes Absolute Auto 0.6 X10*3/uL (0.1-1.2); Monocytes Percent Auto 8.7 % (2-11); Neutrophils Absolute Auto 4.4 x10*3/uL (2.0-8.3); Neutrophils Percent Auto 65.2 % (45-73); Platelet Count 201 X10*3/uL (160-400); Red Blood Count 4.43 X10*6/uL (4.60-5.80); Red Cell Distribution Width 12.7 % (11.0-16.0); White Blood Count 6.8 X10*3/uL (4.8-10.8)
[2021-12-22 15:23] LABS: Alanine Aminotransferase 19 U/L (0-40); Albumin Level 4.3 g/dL (3.5-5.0); Alkaline Phosphatase 85 U/L (39-117); Anion Gap 12 (12-20); Aspartate Amino Transferase 19 U/L (5-37); Bilirubin Total 0.3 mg/dL (0.0-1.0); Blood Urea Nitrogen 13 mg/dL (9-16); Calcium 9.1 mg/dL (8.4-10.2); Carbon Dioxide 25 mmol/L (22-29); Chloride 99 mmol/L (96-108); Estimated Glomerular Filt Rate > 60; Glucose Random 113 mg/dL (60-115); Potassium 4.5 mmol/L (3.3-5.1); Sodium 131 mmol/L (135-145); Total Protein 6.7 g/dL (6.5-8.0)
[2021-12-22 15:37] LABS: Carbamazepine Tegretol 4.9 mcg/mL (5.0-12.0)
== END 2021-12-22 14:25 | disposition home or self-care (01) ==
LOC: HO.LAB 14:24
PROVIDERS: Psychiatry & Neurology Psychiatry; PCP Internal Medicine; Visit Provider Clinical Nurse Specialist Psychiatric/Mental Health, Adult
DX: Z79.899 Other long term (current) drug therapy (principal)
CPT/HCPCS: 36415; 80053; 80156; 85025

== ENCOUNTER 2021-12-24 22:58 | Emergency (ER) | payer MEDICARE, MEDICAID, SELFPAY ==
[2021-12-24 23:41] VITALS: BP 101/59; PULSE 85; RESP 18; O2SAT 96; BMI 21.9
--- NOTE | 2021-12-25 01:39 | ED_ITS ---
HPI - Male Genitourinary General Chief complaint: Urogenital-Male Stated complaint: Upset at [facility] staff Time Seen by Provider: 12/25/21 01:27 Source: patient and old records reviewed Mode of arrival: ambulatory Limitations: no limitations History of Present Illness Complaint: other (worried he is retaining feels his group staff isn't taking him seriously ) Onset (ago): week(s) Duration: intermittent Location: penis Severity: mild Quality: other Relieving factors: urination Exacerbating factors: none Context: other (no longer with schafer has been voiding feeling like he might be retaining , [facility] not listening to him) Associated symptoms: Reports other (anxiety/stress) Related Data Home Medications Medication Instructions Recorded Confirmed aripiprazole 20 mg tablet 1 tab PO QAM 05/26/21 12/05/21 bethanechol chloride 50 mg tablet 1 tab PO TID 05/26/21 12/05/21 carbamazepine 200 mg tablet 500 mg PO BID 05/26/21 12/05/21 clonazepam 0.5 mg tablet 1 tab PO DAILY 05/26/21 12/05/21 hydroxyzine HCl 10 mg tablet 1 tab PO TID PRN Anxiety 05/26/21 12/05/21 tamsulosin 0.4 mg capsule 1 cap PO BEDTIME 05/26/21 12/05/21 trazodone 50 mg tablet 1 tab PO BEDTIME PRN insomnia 05/26/21 12/05/21 haloperidol 5 mg tablet 10 mg PO BEDTIME 11/17/21 12/05/21 haloperidol 5 mg tablet 5 mg PO QAM 12/05/21 12/05/21 Previous Rx's Medication Instructions Recorded omeprazole 40 mg capsule,delayed 40 mg PO DAILY 30 days #30 caps 08/26/21 release atorvastatin 10 mg tablet 10 mg PO DAILY 30 days #30 tabs 12/08/21 Allergies Allergy/AdvReac Type Severity Reaction Status Date / Time No Known Allergies Allergy Unknown UNKNOWN Verified 12/24/21 23:41 [NO KNOWN ALLERGIES] Review of Systems Review of Systems: Constitutional : No Fever, No Chills ENT/Mouth : No sore throat, No Rhinorrhea Eyes: No Eye Pain, No Swelling, No Redness Cardiovascular : No Chest Pain, No SOB Respiratory : No Cough, No Sputum, No Wheezing Gastrointestinal : No Nausea, No Vomiting, No Diarrhea Genitourinary : No Dysuria, No Urinary Frequency, No Hematuria, pos hesitancy Musculoskeletal : No joint pain, No Myalgias, No Joint Swelling Skin : No Skin Lesions, No rash Neuro : No Weakness, No Numbness, No Dizziness, No Headache Psych : pos Anxiety/Panic, No Depression Heme/Lymph: No Bruising, No Bleeding,No Lymphadenopathy Endocrine : No Polyuria, No Polydipsia All other systems reviewed and are negative COUNT INCLUDES [facility] Past Medical History Attestation statement: The following information was validated with the patient. Medical History Anxiety Back pain Benign prostatic hyperplasia with lower urinary tract symptoms Bipolar 1 disorder Constipation Mood disorder Personal history of nicotine dependence Pure hypercholesterolemia Schizoaffective disorder, bipolar type Thought disorder Tubular adenoma of colon (~2018) Surgical History History of colonoscopy (~04/2019) History of open reduction and internal fixation (ORIF) procedure (~08/2018) History of prostate surgery (~04/2019) Family History Family History Father Lung cancer BPH (benign prostatic hyperplasia) Mother Dementia Brother Myocardial infarction Other Mental health problem Substance abuse Social History Social History Household Members: None Housing: Assisted Living Facility Housing Other:: [facility] Do you presently have visiting nurse or other home services: No Alcohol intake: never Patient Tobacco Use Status: Current everyday Tobacco user Tobacco use type: Cigarette Cigarette Packs Per Day: 1 Cigarettes Per Day: 20.0 Years Smoked: 10 e-Cigarette/Vaping Use: Never Used Second Hand Smoke Exposure: Yes Advance Directives: No Advance Directives Information Provided: No service: No Current occupational status: employed Current occupation: [employer] Sexual orientation: Decline to Answer Cognitive needs: No Hearing needs: No Vision needs: Yes Physical Exam Vital Signs: Vital Signs: Last Vital Signs Pulse 85 12/24/21 23:41 Resp 18 12/24/21 23:41 BP 101/59 L 12/24/21 23:41 Pulse Ox 96 12/24/21 23:41 O2 Del Method 12/24/21 23:41 BMI result Body Mass Index 21.9 Appearance: Alert. Oriented X3. No acute distress. Eyes: Pupils equal, round and reactive to light. ENT: Pharynx normal. Neck: Normal inspection. Neck supple. CVS: Normal heart rate and rhythm. Pulses normal. Respiratory: No respiratory distress. Breath sounds normal. Abdomen: Soft and nontender. Skin: Skin warm and dry. Normal skin color. Normal skin turgor. Extremities: No lower extremity edema. No calf ttp Neuro: Oriented X 3. No motor deficit. No sensory deficit. MDM - Male Genitourinary MDM Narrative Medical decision making narrative: 56 yo male with hx of anxiety and neurogenic bladder - 330mL on bladder scan able to void fully feels better, drinking juice wants to go home, happy he voided on his own. no SI. Discharge Plan Discharge Clinical Impression: Anxiety Patient Disposition: Home, Self-Care Instructions: Anxiety (ED) Additional Instructions: return to ED for any worsening symptoms or concerns Prescriptions: No Action omeprazole 40 mg capsule,delayed release(DR/EC) 40 mg PO DAILY 30 Days Qty: 30 2RF atorvastatin 10 mg tablet 10 mg PO DAILY 30 Days Qty: 30 3RF haloperidol 5 mg tablet 10 mg PO BEDTIME carbamazepine 200 mg tablet 500 mg PO BID bethanechol chloride 50 mg tablet 1 tab PO TID aripiprazole 20 mg tablet 1 tab PO QAM clonazepam 0.5 mg tablet 1 tab PO DAILY hydroxyzine HCl 10 mg tablet 1 tab PO TID PRN (Reason: Anxiety) trazodone 50 mg tablet 1 tab PO BEDTIME PRN (Reason: insomnia) tamsulosin 0.4 mg capsule 1 cap PO BEDTIME haloperidol 5 mg tablet 5 mg PO QAM
== END 2021-12-25 02:53 | disposition home or self-care (01) ==
PROVIDERS: Emergency Provider Emergency Medicine; PCP Internal Medicine
DX: F41.9 Anxiety disorder, unspecified (principal); F25.0 Schizoaffective disorder, bipolar type; F17.210 Nicotine dependence, cigarettes, uncomplicated; Z79.899 Other long term (current) drug therapy; Z79.02 Long term (current) use of antithrombotics/antiplatelets
CPT/HCPCS: 99282

== ENCOUNTER 2021-12-27 01:24 | Emergency (ER) | payer MEDICARE, MEDICAID, SELFPAY ==
[2021-12-27 01:38] VITALS: BP 102/68; PULSE 88; RESP 18; TEMP 36.8; O2SAT 96; BMI 20.3
== END 2021-12-27 03:12 | disposition left against medical advice (07) ==
PROVIDERS: Emergency Provider Emergency Medicine; PCP Internal Medicine
DX: F43.0 Acute stress reaction (principal)
CPT/HCPCS: 99281

== ENCOUNTER 2021-12-27 23:43 | Emergency (ER) | payer MEDICARE, MEDICAID, SELFPAY ==
[2021-12-28 00:09] VITALS: BP 127/79; PULSE 78; RESP 16; TEMP 36.8; O2SAT 96; BMI 21.6
[2021-12-28 01:17] VITALS: BP 127/74; PULSE 65; TEMP 35.4; O2SAT 97
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
[2021-12-28 01:53] VITALS: BP 142/93; PULSE 79; O2SAT 98
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
[2021-12-28] MEDS: cephALEXin 500 MG CAPSULE PO (03:47)
--- NOTE | 2021-12-28 03:51 | PC.NURSE ---
Per MD, pt continues reporting feeling unsafe in longterm, states his longterm is witholding his catheters and lubrication. Per MD, plan for CM consult as pt continues to report feeling unsafe @ longterm. Per MD, pt retaining urine, per MD to provide pt with catheter supplies as he straight caths himself daily. Pt provided with supplies per MD order.
[2021-12-28 04:00] VITALS: BP 139/84; PULSE 63; O2SAT 98
[2021-12-28 04:28] LABS: Appearance Urine CLEAR; Color Urine YELLOW; Glucose Urine UA NEG (NEG); Leukocyte Esterase Urine TRACE (NEG); Nitrite Urine POS (NEG); UACC Culture Trigger YES; Urine Blood TRACE (NEG); Urine Ketones NEG (NEG); Urine Protein NEG (NEG-TRACE)
[2021-12-28 04:43] LABS: Squamous Epithelial Cell Urine 1+ /LPF
[2021-12-28 04:44] LABS: Bacteria Urine 4+ /LPF; Mucus Urine 1+ /LPF; Sperm Urine NOTED
[2021-12-28] MEDS: Nitrofurantoin Monohyd/M-Cryst 100 MG CAPSULE PO (05:06)
[2021-12-28 05:31] VITALS: BP 120/73; PULSE 62; O2SAT 97
[2021-12-28 08:00] VITALS: BP 136/82; PULSE 66; RESP 16; O2SAT 99
--- NOTE | 2021-12-28 09:42 | MHC.CM.ED ---
Received case management consult overnight. Patient is well known to [facility]. Patient has a very extensive mental health history and currently resides in a [facility]. Patient will frequently come to the ER c/o SI/HI. Patient denied these symptoms. However, patient told Dr Sequeira that he needs to self-catheterize himself and staff will not give him the kits or lube when he needs to self-cath himself. T/W spoke with Marly at the fpc. aMrly stated there are currently 7 unopened/unused catheter kits with lubrication in his room. He has access to them. He has not used them. Rob WETZEL aware. Patient will be discharged back to the fpc. Patient, Deja Luke RN and Rob WETZEL aware. Continue to monitor for d/c needs.
== END 2021-12-28 10:14 | disposition home or self-care (01) ==
PROVIDERS: Emergency Provider Student in an Organized Health Care Education/Training Program; PCP Internal Medicine
DX: R33.9 Retention of urine, unspecified (principal); R21 Rash and other nonspecific skin eruption; F41.9 Anxiety disorder, unspecified; F25.0 Schizoaffective disorder, bipolar type; E78.00 Pure hypercholesterolemia, unspecified; F17.210 Nicotine dependence, cigarettes, uncomplicated; Z79.02 Long term (current) use of antithrombotics/antiplatelets; Z79.899 Other long term (current) drug therapy; Z72.89 Other problems related to lifestyle
CPT/HCPCS: 51798; 81001; 87086; 87088; 87186; 99284

== ENCOUNTER 2022-01-02 17:10 | Emergency (ER) | payer MEDICARE, MEDICAID, SELFPAY ==
[2022-01-02 17:26] VITALS: BP 132/87; PULSE 85; RESP 18; TEMP 36.7; O2SAT 96; BMI 26.6
--- NOTE | 2022-01-02 17:29 | ED_ITS ---
HPI - Skin/Abscess/Foreign Bdy General Chief complaint: General Medical Stated complaint: rash all over body Time Seen by Provider: 01/02/22 17:28 Source: patient Mode of arrival: ambulatory Limitations: no limitations History of Present Illness HPI narrative: 56 yo male presenting for a rash on his abdomen for about 1 week. He was seen here on 12/28 with the same, started about 1 week ago with no known cause. He was prescribed an antibiotic but never took it. He states that the people at his [place] [facility] are giving him his medications and that he is not being given any food. He reports the rash was itchy, no longer itchy. It is warm and red. MD complaint: rash Onset (ago): week(s) (1) Tetanus up to date: unsure Severity: mild Severity scale (1-10): 4 Quality: burning Pain Consistency: constant Relieving factors: none Exacerbating factors: none Context: none Associated symptoms: denies other symptoms Treatments prior to arrival: none Related Data Home Medications Medication Instructions Recorded Confirmed aripiprazole 20 mg tablet 1 tab PO QAM 05/26/21 12/30/21 bethanechol chloride 50 mg tablet 1 tab PO TID 05/26/21 12/30/21 carbamazepine 200 mg tablet 500 mg PO BID 05/26/21 12/30/21 clonazepam 0.5 mg tablet 1 tab PO DAILY 05/26/21 12/30/21 hydroxyzine HCl 10 mg tablet 1 tab PO TID PRN Anxiety 05/26/21 12/30/21 tamsulosin 0.4 mg capsule 1 cap PO BEDTIME 05/26/21 12/30/21 trazodone 50 mg tablet 1 tab PO BEDTIME PRN insomnia 05/26/21 12/30/21 haloperidol 5 mg tablet 10 mg PO BEDTIME 11/17/21 12/30/21 haloperidol 5 mg tablet 5 mg PO QAM 12/05/21 12/30/21 Previous Rx's Medication Instructions Recorded omeprazole 40 mg capsule,delayed 40 mg PO DAILY 30 days #30 caps 08/26/21 release atorvastatin 10 mg tablet 10 mg PO DAILY 30 days #30 tabs 12/08/21 cephalexin 500 mg capsule 500 mg PO BID 3 days #6 caps 12/28/21 nitrofurantoin 100 mg PO Q12H 7 days #14 caps 07/26/22 monohydrate/macrocrystals 100 mg capsule (Macrobid) clotrimazole 1 % topical cream 1 appl topical BID 2 weeks #15 12/30/21 (Lotrimin AF (clotrimazole)) grams prednisone 20 mg tablet 40 mg PO DAILY 5 days #10 tabs 12/30/21 cephalexin 500 mg capsule 500 mg PO Q6H 5 days #20 caps 01/02/22 Allergies Allergy/AdvReac Type Severity Reaction Status Date / Time No Known Allergies Allergy Unknown UNKNOWN Verified 01/02/22 17:26 [NO KNOWN ALLERGIES] Review of Systems Review of Systems: Constitutional: No Fever, No Chills ENT/Mouth: No sore throat, No Rhinorrhea, No Swallowing Difficulty Eyes: No Eye Pain, No Swelling, No Redness Cardiovascular: No Chest Pain, No SOB, No Orthopnea, No Edema Respiratory: No Cough, No Sputum, No Wheezing, No dyspnea Gastrointestinal: No Nausea, No Vomiting, No Diarrhea, No abdominal Pain, No Hematochezia, No Melena Genitourinary: No Dysuria, No Urinary Frequency, No Hematuria Musculoskeletal: No joint pain, No Myalgias Skin: No Skin Lesions, No rash Neuro: No Weakness, No Numbness, No Dizziness, No Headache Psych: + Anxiety/Panic, + Depression Heme/Lymph: No Bruising, No Lymphadenopathy Endocrine: No Polyuria, No Polydipsia PMFSH Past Medical History Medical History Anxiety Back pain Benign prostatic hyperplasia with lower urinary tract symptoms Bipolar 1 disorder Constipation Mood disorder Personal history of nicotine dependence Pure hypercholesterolemia Schizoaffective disorder, bipolar type Thought disorder Tubular adenoma of colon (~2018) Surgical History History of colonoscopy (~04/2019) History of open reduction and internal fixation (ORIF) procedure (~08/2018) History of prostate surgery (~04/2019) Family History Family History Father Lung cancer BPH (benign prostatic hyperplasia) Mother Dementia Brother Myocardial infarction Other Mental health problem Substance abuse Social History Social History Household Members: None Housing: Assisted Living Facility Housing Other:: [facility] Do you presently have visiting nurse or other home services: No Alcohol intake: never Patient Tobacco Use Status: Current everyday Tobacco user Tobacco use type: Cigarette Cigarette Packs Per Day: 1 Cigarettes Per Day: 20.0 Years Smoked: 10 e-Cigarette/Vaping Use: Never Used Second Hand Smoke Exposure: Yes Advance Directives: No Advance Directives Information Provided: No service: No Current occupational status: employed Current occupation: [employer] Sexual orientation: Decline to Answer Cognitive needs: No Hearing needs: No Vision needs: Yes Physical Exam Vital Signs: Vital Signs: Last Vital Signs Temp 98.1 F 01/02/22 17:26 Pulse 85 01/02/22 17:26 Resp 18 01/02/22 17:26 BP 132/87 01/02/22 17:26 Pulse Ox 96 01/02/22 17:26 O2 Del Method 01/02/22 17:26 BMI result Body Mass Index 26.6 Appearance: Alert. Oriented X3. No acute distress. HEENT: normal inspection CVS: Normal heart rate and rhythm. Pulses normal. Respiratory: No respiratory distress. Speaks in complete sentences Skin: Skin warm and dry. Normal skin color. Normal skin turgor. Abdominal wall with a mild, erythematous, warm area, no open areas or drainage. Extremities: Right wrist with some mild excoriations, scabbing from an old wound. No surrounding erythema or warmth. No drainage. Neuro: Oriented X 3. No motor deficit. No sensory deficit. ambulates with steady gait Course Course Course Narrative: 56-year-old male presents to the ER with a red rash on his abdominal wall for the last 1 week. He was seen here previously for the same, prescribed Keflex and he did not fill it. Denies any fever or chills. The rash is no longer itchy. Exam is consistent with some mild abdominal wall cellulitis. Will prescribe Keflex again, he reports it is mostly back to his house but never was. Will also apply some bacitracin as he is seeking an ointment for relief of his rash. He denies any systemic signs of infection like fever, chills, nausea, vomiting. At this time is stable for discharge home with outpatient follow-up. Of note patient was making accusations that is [place] [facility] is not feeding him, he was making similar accusations last presentation that were deemed to be an accurate and untrue. Comfortable with discharge back to his [place] [facility]. Critical Care Time Critical Care Time Critical Care Time: No Discharge Plan Discharge Clinical Impression: Cellulitis Patient Disposition: Home, Self-Care Instructions: Cellulitis (ED) Additional Instructions: Take the prescribed antibiotic as directed. Use the provided antimicrobial ointment 2 times per day. If your rash starts to itch, recommend hydrocortisone cream or benadryl - both can be found at any pharmacy over the counter. If you develop new or worsening symptoms call 911 or come back to the ER for further evaluation. Prescriptions: New cephalexin 500 mg capsule 500 mg PO Q6H 5 Days Qty: 20 0RF No Action omeprazole 40 mg capsule,delayed release(DR/EC) 40 mg PO DAILY 30 Days Qty: 30 2RF atorvastatin 10 mg tablet 10 mg PO DAILY 30 Days Qty: 30 3RF haloperidol 5 mg tablet 10 mg PO BEDTIME cephalexin 500 mg capsule 500 mg PO BID 3 Days Qty: 6 0RF nitrofurantoin monohyd/m-cryst [Macrobid] 100 mg capsule 100 mg PO Q12H 7 Days Qty: 14 0RF Rx Instructions: must administer with a meal/food carbamazepine 200 mg tablet 500 mg PO BID bethanechol chloride 50 mg tablet 1 tab PO TID aripiprazole 20 mg tablet 1 tab PO QAM clonazepam 0.5 mg tablet 1 tab PO DAILY hydroxyzine HCl 10 mg tablet 1 tab PO TID PRN (Reason: Anxiety) trazodone 50 mg tablet 1 tab PO BEDTIME PRN (Reason: insomnia) tamsulosin 0.4 mg capsule 1 cap PO BEDTIME haloperidol 5 mg tablet 5 mg PO QAM prednisone 20 mg tablet 40 mg PO DAILY 5 Days Qty: 10 0RF clotrimazole [Lotrimin AF (clotrimazole)] 1 % cream 1 appl topical BID 14 Days Qty: 15 0RF
== END 2022-01-02 18:05 | disposition home or self-care (01) ==
PROVIDERS: Emergency Provider Internal Medicine; PCP Internal Medicine
DX: L03.311 Cellulitis of abdominal wall (principal); R21 Rash and other nonspecific skin eruption; Z79.899 Other long term (current) drug therapy; F17.210 Nicotine dependence, cigarettes, uncomplicated; Z71.6 Tobacco abuse counseling
CPT/HCPCS: 99282

== ENCOUNTER 2022-01-04 23:45 | Emergency (ER) | payer MEDICARE, MEDICAID, SELFPAY ==
[2022-01-04 23:54] VITALS: BP 117/78; PULSE 70; RESP 16; TEMP 36.7; O2SAT 97; BMI 21.4
--- NOTE | 2022-01-04 23:57 | ED.PSYCH ---
HPI - Psych General Chief Complaint: Psychiatric Symptoms Stated Complaint: Upset at long term staff Source: patient Mode of arrival: ambulatory Limitations: no limitations History of Present Illness HPI Narrative: 56-year-old male presents to the emergency department because he is frustrated with his long term and he is hungry. He does not report any medical complaints at this time. complaint: other (Anger, hunger) Onset (ago): year(s) Duration: constant History of same: Yes Relieving factors: none Exacerbating factors: none Associated psychiatric symptoms: depression Associated symptoms: denies other symptoms Treatments prior to arrival: none Related Data Home Medications Medication Instructions Recorded Confirmed aripiprazole 20 mg tablet 1 tab PO QAM 05/26/21 12/30/21 bethanechol chloride 50 mg tablet 1 tab PO TID 05/26/21 12/30/21 carbamazepine 200 mg tablet 500 mg PO BID 05/26/21 12/30/21 clonazepam 0.5 mg tablet 1 tab PO DAILY 05/26/21 12/30/21 hydroxyzine HCl 10 mg tablet 1 tab PO TID PRN Anxiety 05/26/21 12/30/21 tamsulosin 0.4 mg capsule 1 cap PO BEDTIME 05/26/21 12/30/21 trazodone 50 mg tablet 1 tab PO BEDTIME PRN insomnia 05/26/21 12/30/21 haloperidol 5 mg tablet 10 mg PO BEDTIME 11/17/21 12/30/21 haloperidol 5 mg tablet 5 mg PO QAM 12/05/21 12/30/21 Previous Rx's Medication Instructions Recorded omeprazole 40 mg capsule,delayed 40 mg PO DAILY 30 days #30 caps 08/26/21 release atorvastatin 10 mg tablet 10 mg PO DAILY 30 days #30 tabs 12/08/21 cephalexin 500 mg capsule 500 mg PO BID 3 days #6 caps 12/28/21 nitrofurantoin 100 mg PO Q12H 7 days #14 caps 12/28/21 monohydrate/macrocrystals 100 mg capsule (Macrobid) clotrimazole 1 % topical cream 1 appl topical BID 2 weeks #15 12/30/21 (Lotrimin AF (clotrimazole)) grams prednisone 20 mg tablet 40 mg PO DAILY 5 days #10 tabs 12/30/21 cephalexin 500 mg capsule 500 mg PO Q6H 5 days #20 caps 01/02/22 Allergies Allergy/AdvReac Type Severity Reaction Status Date / Time No Known Allergies Allergy Unknown UNKNOWN Verified 01/02/22 17:26 [NO KNOWN ALLERGIES] Review of Systems Review of Systems: Constitutional: Positive hunger, No Fever, No Chills ENT/Mouth: No Ear Pain, No Hoarseness, No sore throat Eyes: No Eye Pain, No Swelling, No Redness, No Foreign Body Cardiovascular: No Chest Pain, No SOB Respiratory: No Cough, No Dyspnea Gastrointestinal: No Nausea, No Vomiting, No Diarrhea, No abdominal Pain Genitourinary: No Dysuria, No Hematuria Musculoskeletal: No joint pain, No Myalgias, No Joint Swelling Skin: No Skin lacerations, No rash Neuro: No Weakness, No Numbness, No Paresthesias, No Loss of Consciousness, No Dizziness, No Headache Psych: Positive anger, No Anxiety/Panic, No Depression Heme/Lymph: no easy bruising, no Lymphadenopathy Endocrine: No Polyuria, No Polydipsia Yes all other systems are reviewed and are negative PMFSH Past Medical History Attestation statement: The following information was validated with the patient. Source: old records reviewed Medical History Anxiety Back pain Benign prostatic hyperplasia with lower urinary tract symptoms Bipolar 1 disorder Constipation Mood disorder Personal history of nicotine dependence Pure hypercholesterolemia Schizoaffective disorder, bipolar type Thought disorder Tubular adenoma of colon (~2018) Surgical History History of colonoscopy (~04/2019) History of open reduction and internal fixation (ORIF) procedure (~08/2018) History of prostate surgery (~04/2019) Family History Family History Father Lung cancer BPH (benign prostatic hyperplasia) Mother Dementia Brother Myocardial infarction Other Mental health problem Substance abuse Social History Social History Household Members: None Housing: Assisted Living Facility Housing Other:: long term Do you presently have visiting nurse or other home services: No Alcohol intake: never Patient Tobacco Use Status: Current everyday Tobacco user Tobacco use type: Cigarette Cigarette Packs Per Day: 1 Cigarettes Per Day: 20.0 Years Smoked: 10 e-Cigarette/Vaping Use: Never Used Second Hand Smoke Exposure: Yes Advance Directives: No service: No Current occupational status: employed Current occupation: [employer] Sexual orientation: Decline to Answer Cognitive needs: No Hearing needs: No Vision needs: Yes Physical Exam Vital Signs: Vital Signs: Last Vital Signs Temp 98.0 F 01/04/22 23:54 Pulse 71 01/05/22 00:00 Resp 16 01/04/22 23:54 BP 141/90 H 01/05/22 00:00 Pulse Ox 98 01/05/22 00:00 O2 Del Method 01/05/22 00:00 BMI result Body Mass Index 21.4 Appearance: Alert. Oriented X3. No acute distress. Eyes: Pupils equal, round and reactive to light. ENT: Pharynx normal. Neck: Normal inspection. Neck supple. CVS: Normal heart rate and rhythm. Pulses normal. Respiratory: No respiratory distress. Breath sounds normal. Abdomen: Soft and nontender. Skin: Skin warm and dry. Normal skin color. Normal skin turgor. Extremities: No lower extremity edema. Neuro: No motor deficit. No sensory deficit. Cranial nerves 2-12 intact Course Course Course Narrative: 56-year-old male presents to the emergency department for evaluation because he is hungry and he does not like his long term. He presents on a regular basis for similar circumstances. He does not report any medical complaints. Denies suicidal and homicidal ideation. He was given food and becca nicole. Patient was advised to follow up with his outpatient psychiatry as scheduled. Patient discharged home. MDM - Psych MDM Narrative Medical decision making narrative: Nonmedical complaint Medical Records Attestation: I reviewed the patient's medical records. Discharge Plan Discharge Clinical Impression: Hunger Patient Disposition: Home, Self-Care Instructions: Normal Exam (ED) Additional Instructions: You presented to the emergency department for nonmedical complaint. Please follow-up with primary care provider as needed and outpatient psychiatry Thank you for choosing this emergency department for evaluation. Please follow-up with primary care physician as needed. Return to the emergency department for any new, concerning, or worsening symptoms. Prescriptions: No Action omeprazole 40 mg capsule,delayed release(DR/EC) 40 mg PO DAILY 30 Days Qty: 30 2RF atorvastatin 10 mg tablet 10 mg PO DAILY 30 Days Qty: 30 3RF haloperidol 5 mg tablet 10 mg PO BEDTIME cephalexin 500 mg capsule 500 mg PO BID 3 Days Qty: 6 0RF nitrofurantoin monohyd/m-cryst [Macrobid] 100 mg capsule 100 mg PO Q12H 7 Days Qty: 14 0RF Rx Instructions: must administer with a meal/food cephalexin 500 mg capsule 500 mg PO Q6H 5 Days Qty: 20 0RF carbamazepine 200 mg tablet 500 mg PO BID bethanechol chloride 50 mg tablet 1 tab PO TID aripiprazole 20 mg tablet 1 tab PO QAM clonazepam 0.5 mg tablet 1 tab PO DAILY hydroxyzine HCl 10 mg tablet 1 tab PO TID PRN (Reason: Anxiety) trazodone 50 mg tablet 1 tab PO BEDTIME PRN (Reason: insomnia) tamsulosin 0.4 mg capsule 1 cap PO BEDTIME haloperidol 5 mg tablet 5 mg PO QAM prednisone 20 mg tablet 40 mg PO DAILY 5 Days Qty: 10 0RF clotrimazole [Lotrimin AF (clotrimazole)] 1 % cream 1 appl topical BID 14 Days Qty: 15 0RF Interventions: ED Discharge Assessment Last Done: 01/05/22 00:19 Discharge Date/Time: 01/05/22 00:23
[2022-01-05] VITALS: BP 141/90; PULSE 71; O2SAT 98
== END 2022-01-05 00:23 | disposition home or self-care (01) ==
PROVIDERS: Emergency Provider Emergency Medicine; PCP Internal Medicine
DX: F33.1 Major depressive disorder, recurrent, moderate (principal); T73.0XXA Starvation, initial encounter; X58.XXXA Exposure to other specified factors, initial encounter
CPT/HCPCS: 99282; 99284

== ENCOUNTER 2022-01-06 23:40 | Emergency (ER) | payer MEDICARE, MEDICAID, SELFPAY ==
[2022-01-07 01:17] VITALS: BP 127/73; PULSE 68; RESP 16; TEMP 36.4; O2SAT 95; BMI 20.3
--- NOTE | 2022-01-07 03:19 | PC.NURSE ---
Pt not in the WR when called @ this time.
== END 2022-01-07 03:39 | disposition left against medical advice (07) ==
PROVIDERS: Emergency Provider Emergency Medicine
DX: F43.9 Reaction to severe stress, unspecified (principal)
CPT/HCPCS: 99281

== ENCOUNTER 2022-01-08 23:04 | Emergency (ER) | payer MEDICARE, MEDICAID, SELFPAY ==
[2022-01-08 23:08] VITALS: BP 108/63; PULSE 92; RESP 16; TEMP 36.7; O2SAT 96; BMI 21.2
== END 2022-01-09 03:00 | disposition left against medical advice (07) ==
PROVIDERS: Emergency Provider Emergency Medicine; PCP Internal Medicine
DX: R45.1 Restlessness and agitation (principal); F41.9 Anxiety disorder, unspecified; F25.0 Schizoaffective disorder, bipolar type; Z87.891 Personal history of nicotine dependence
CPT/HCPCS: 99281

== ENCOUNTER 2022-01-11 00:28 | Emergency (ER) | payer MEDICARE, MEDICAID, SELFPAY ==
[2022-01-11 00:36] VITALS: BP 125/74; PULSE 70; RESP 17; TEMP 36.5; O2SAT 95; BMI 20.4
[2022-01-11 01:00] LABS: MANUAL DIFF FLAG NO
[2022-01-11 01:01] LABS: Basophils Absolute Auto 0.1 X10*3/uL (0.0-0.2); Basophils Percent Auto 1.2 % (0-2); Eosinophils Absolute Auto 0.2 X10*3/uL (0.0-0.4); Hematocrit 38.2 % (42.0-52.0); Hemoglobin 13.1 g/dl (14.0-18.0); Imm Gran Abs Auto 0.01 X10*3/uL (0.00-0.03); Imm Gran Pct Auto 0.2 % (0.0-0.4); Lymphocytes Absolute Auto 2.2 X10*3/uL (1.2-4.9); Lymphocytes Percent Auto 36.5 % (20-40); Mean Corpuscular HGB Conc 34.3 g/dl (31.0-36.0); Mean Corpuscular Hemoglobin 31.7 pg (27.0-33.0); Mean Corpuscular Volume 92.5 fL (80.0-98.0); Monocytes Absolute Auto 0.7 X10*3/uL (0.1-1.2); Monocytes Percent Auto 11.1 % (2-11); Neutrophils Absolute Auto 2.9 x10*3/uL (2.0-8.3); Platelet Count 189 X10*3/uL (160-400); Red Blood Count 4.13 X10*6/uL (4.60-5.80); Red Cell Distribution Width 12.9 % (11.0-16.0); White Blood Count 5.9 X10*3/uL (4.8-10.8)
[2022-01-11 01:16] LABS: COVID-19 Test Negative (Negative); IDNOW Serial# 16C4AD1C
--- NOTE | 2022-01-11 01:18 | ED_ITS ---
HPI - Psych General Chief Complaint: Psychiatric Symptoms Stated Complaint: wants to speak to crisis team Time Seen by Provider: 01/11/22 01:17 Source: patient Mode of arrival: ambulatory Limitations: no limitations History of Present Illness HPI Narrative: 56-year-old male history of anxiety, bipolar disorder type 1, schizoaffective disorder, tubular adenoma of the colon presents to the emergency department with complaints of?anxiety and paranoia. Patient states that he has seen a lot of crime in the city recently, arson, and people having intercourse behind his house. He states that he was locked out of his long term this morning and could not get in. He contacted the police department and tells me that they did not do anything to help him. He presents today requesting to speak with the crisis team because he is ?tired of this?. He adds that he would like to live in a different long term and has plans to go to court for this. He denies any visual auditory or tactile hallucinations. He states that he has been compliant with his medication, denies any missed doses. Denies any drug or tobacco use. Denies any alcohol consumption. Denies any suicidal ideation or homicidal ideation. MD complaint: anxiety Onset (ago): day(s) (1) Related Data Home Medications Medication Instructions Recorded Confirmed aripiprazole 20 mg tablet 1 tab PO QAM 05/26/21 12/30/21 bethanechol chloride 50 mg tablet 1 tab PO TID 05/26/21 12/30/21 carbamazepine 200 mg tablet 500 mg PO BID 05/26/21 12/30/21 clonazepam 0.5 mg tablet 1 tab PO DAILY 05/26/21 12/30/21 hydroxyzine HCl 10 mg tablet 1 tab PO TID PRN Anxiety 05/26/21 12/30/21 tamsulosin 0.4 mg capsule 1 cap PO BEDTIME 05/26/21 12/30/21 trazodone 50 mg tablet 1 tab PO BEDTIME PRN insomnia 05/26/21 12/30/21 haloperidol 5 mg tablet 10 mg PO BEDTIME 11/17/21 12/30/21 haloperidol 5 mg tablet 5 mg PO QAM 12/05/21 12/30/21 Previous Rx's Medication Instructions Recorded omeprazole 40 mg capsule,delayed 40 mg PO DAILY 30 days #30 caps 08/26/21 release atorvastatin 10 mg tablet 10 mg PO DAILY 30 days #30 tabs 12/08/21 cephalexin 500 mg capsule 500 mg PO BID 3 days #6 caps 12/28/21 nitrofurantoin 100 mg PO Q12H 7 days #14 caps 12/28/21 monohydrate/macrocrystals 100 mg capsule (Macrobid) clotrimazole 1 % topical cream 1 appl topical BID 2 weeks #15 12/30/21 (Lotrimin AF (clotrimazole)) grams prednisone 20 mg tablet 40 mg PO DAILY 5 days #10 tabs 12/30/21 cephalexin 500 mg capsule 500 mg PO Q6H 5 days #20 caps 01/02/22 Allergies Allergy/AdvReac Type Severity Reaction Status Date / Time No Known Allergies Allergy Unknown UNKNOWN Verified 01/11/22 00:35 [NO KNOWN ALLERGIES] Review of Systems Review of Systems: Constitutional : No Weight loss, No Fever, No Chills, No Fatigue, No Malaise ENT/Mouth : No sore throat, No Rhinorrhea Eyes: No Eye Pain, No Swelling, No Redness Cardiovascular : No Chest Pain, No SOB, No Dyspnea on Exertion, No Orthopnea, No Edema, No Palpitations Respiratory : No Cough, No Sputum, No Wheezing Gastrointestinal : No Nausea, No Vomiting, No Diarrhea, No Constipation, No abdominal Pain, No Hematochezia, No Melena Genitourinary : No Dysuria, No Urinary Frequency, No Hematuria, Musculoskeletal : No joint pain, No Myalgias, No Joint Swelling Skin : No Skin Lesions, No rash Neuro : No Weakness, No Numbness, No Dizziness, No Headache Psych : + Anxiety/Panic, No Depression, no SI/HI Yes all other systems are reviewed and are negative [facility] Past Medical History Attestation statement: The following information was validated with the patient. Source: old records reviewed and nursing notes reviewed Medical History Anxiety Back pain Benign prostatic hyperplasia with lower urinary tract symptoms Bipolar 1 disorder Constipation Mood disorder Personal history of nicotine dependence Pure hypercholesterolemia Schizoaffective disorder, bipolar type Thought disorder Tubular adenoma of colon (~2018) Surgical History History of colonoscopy (~04/2019) History of open reduction and internal fixation (ORIF) procedure (~08/2018) History of prostate surgery (~04/2019) Family History Family History Father Lung cancer BPH (benign prostatic hyperplasia) Mother Dementia Brother Myocardial infarction Other Mental health problem Substance abuse Social History Social History Household Members: None Housing: Assisted Living Facility Housing Other:: long term Do you presently have visiting nurse or other home services: No Alcohol intake: never Patient Tobacco Use Status: Current everyday Tobacco user Tobacco use type: Cigarette Cigarette Packs Per Day: 1 Cigarettes Per Day: 20.0 Years Smoked: 10 e-Cigarette/Vaping Use: Never Used Second Hand Smoke Exposure: Yes Advance Directives: No Advance Directives Information Provided: Yes service: No Current occupational status: employed Current occupation: [employer] Sexual orientation: Decline to Answer Cognitive needs: No Hearing needs: No Vision needs: Yes Physical Exam Vital Signs: Vital Signs: Last Vital Signs Temp 97.7 F 01/11/22 00:36 Pulse 70 01/11/22 00:36 Resp 17 01/11/22 00:36 BP 125/74 01/11/22 00:36 Pulse Ox 95 01/11/22 00:36 O2 Del Method 01/11/22 00:36 BMI result Body Mass Index 20.4 vss Appearance: Alert.? Oriented X3.? No acute distress.? Head: Normocephalic, atraumatic, no step-offs or deformities Eyes: Pupils equal, round and reactive to light.? Neck: Normal inspection.? Neck supple.? CVS: Normal heart rate and rhythm.? Pulses normal.? Respiratory: No respiratory distress.? Breath sounds normal.? Abdomen: Soft and nontender.? Skin: Skin warm and dry.? Normal skin color.? Normal skin turgor.? Extremities: No lower extremity edema.? No calf ttp. 5/5 strength to bilateral upper and lower extremities Neuro: Oriented X 3.? No motor deficit.? No sensory deficit. Course Reevaluation(s) Reevaluation #1: CBC appears to be around patient's baseline. Chemistry with no acute electrol yte abnormalities requiring intervention. Ethanol negative. COVID negative. UA and urine toxicology pending. Time: 01:27 Reevaluation #2: At this time patient will be placed in physician observation to allow more time to be evaluated by the behavioral health team. At time observation was started patient naveen cooperative no acute distress will continue to monitor. Time: 01:42 MDM - Psych MDM Narrative Medical decision making narrative: 0115 56 year old male history of anxiety, bipolar disorder type 1, schizoaffective disorder, tubular adenoma of the colon presenting to the ED with a complaint of anxiety and paranoia. States that he has been seeing crime in the city and was recently locked out of his long term, requesting to speak to crisis about living in a different long term. No visual auditory or tactile hallucinations. No SI/HI. Physical examination benign. Plan at this time is medical clearance and evaluation by the behavioral health team. Medical Records Attestation: I reviewed the patient's medical records. Lab Data Attestation: I reviewed the patient's lab results. Result diagrams: 01/11/22 00:51 01/11/22 00:51 Labs: Lab Results 01/11/22 01/11/22 01/11/22 Range/Units 00:47 00:51 00:51 WBC 5.9 (4.8-10.8) X10*3/uL RBC 4.13 L (4.60-5.80) X10*6/uL Hgb 13.1 L (14.0-18.0) g/dl Hct 38.2 L (42.0-52.0) % MCV 92.5 (80.0-98.0) fL MCH 31.7 (27.0-33.0) pg MCHC 34.3 (31.0-36.0) g/dl RDW 12.9 (11.0-16.0) % Plt Count 189 (160-400) X10*3/uL MPV 9.0 L (9.4-12.4) fL Immature Gran % (Auto) 0.2 (0.0-0.4) % Neut % (Auto) 48.0 (45-73) % Lymph % (Auto) 36.5 (20-40) % Villalba % (Auto) 11.1 H (2-11) % Eos % (Auto) 3.0 (0-4) % Baso % (Auto) 1.2 (0-2) % Lymph # (Auto) 2.2 (1.2-4.9) X10*3/uL [place] # (Auto) 0.7 (0.1-1.2) X10*3/uL Eos # (Auto) 0.2 (0.0-0.4) X10*3/uL Baso # (Auto) 0.1 (0.0-0.2) X10*3/uL Abs Immat Gran (auto) 0.01 (0.00-0.03) X10*3/uL Absolute Neuts (auto) 2.9 (2.0-8.3) x10*3/uL Absolute Nucleated RBC 0.000 (0.0-0.012) X10*3/uL Nucleated RBC % (auto) 0.0 (0.0-0.2) /100WBC Sodium 135 (135-145) mmol/L Potassium 4.2 (3.3-5.1) mmol/L Chloride 101 (96-108) mmol/L Carbon Dioxide 25 (22-29) mmol/L Anion Gap 13 (12-20) BUN 13 (9-16) mg/dL Creatinine 0.77 (0.5-1.4) mg/dL Estim Creat Clear Calc 91.3 Estimated GFR > 60 Random Glucose 89 (60-115) mg/dL Calcium 8.9 (8.4-10.2) mg/dL Total Bilirubin 0.4 (0.0-1.0) mg/dL AST 18 (5-37) U/L ALT 19 (0-40) U/L Alkaline Phosphatase 68 (39-117) U/L Total Protein 6.5 (6.5-8.0) g/dL Albumin 4.1 (3.5-5.0) g/dL Ethyl Alcohol < 10 mg/dL COVID-19 ([facility]) Negative (Negative) COVID-19 Clin Com See Note Critical Care Time Critical Care Time Critical Care Time: No Discharge Plan Discharge Clinical Impression: Chronic schizophrenia, Paranoia Patient Disposition: Still a Patient Prescriptions: No Action omeprazole 40 mg capsule,delayed release(DR/EC) 40 mg PO DAILY 30 Days Qty: 30 2RF atorvastatin 10 mg tablet 10 mg PO DAILY 30 Days Qty: 30 3RF haloperidol 5 mg tablet 10 mg PO BEDTIME cephalexin 500 mg capsule 500 mg PO BID 3 Days Qty: 6 0RF nitrofurantoin monohyd/m-cryst [Macrobid] 100 mg capsule 100 mg PO Q12H 7 Days Qty: 14 0RF Rx Instructions: must administer with a meal/food cephalexin 500 mg capsule 500 mg PO Q6H 5 Days Qty: 20 0RF carbamazepine 200 mg tablet 500 mg PO BID bethanechol chloride 50 mg tablet 1 tab PO TID aripiprazole 20 mg tablet 1 tab PO QAM clonazepam 0.5 mg tablet 1 tab PO DAILY hydroxyzine HCl 10 mg tablet 1 tab PO TID PRN (Reason: Anxiety) trazodone 50 mg tablet 1 tab PO BEDTIME PRN (Reason: insomnia) tamsulosin 0.4 mg capsule 1 cap PO BEDTIME haloperidol 5 mg tablet 5 mg PO QAM prednisone 20 mg tablet 40 mg PO DAILY 5 Days Qty: 10 0RF clotrimazole [Lotrimin AF (clotrimazole)] 1 % cream 1 appl topical BID 14 Days Qty: 15 0RF
[2022-01-11 01:19] LABS: Alanine Aminotransferase 19 U/L (0-40); Albumin Level 4.1 g/dL (3.5-5.0); Alkaline Phosphatase 68 U/L (39-117); Anion Gap 13 (12-20); Aspartate Amino Transferase 18 U/L (5-37); Bilirubin Total 0.4 mg/dL (0.0-1.0); Blood Urea Nitrogen 13 mg/dL (9-16); Calcium 8.9 mg/dL (8.4-10.2); Carbon Dioxide 25 mmol/L (22-29); Chloride 101 mmol/L (96-108); Creatinine Clr Calc Pharmacy 91.3; Estimated Glomerular Filt Rate > 60; Ethanol < 10 mg/dL; Glucose Random 89 mg/dL (60-115); Potassium 4.2 mmol/L (3.3-5.1); Sodium 135 mmol/L (135-145); Total Protein 6.5 g/dL (6.5-8.0)
[2022-01-11 01:46] VITALS: BP 135/87; PULSE 64; RESP 16; TEMP 36.6; O2SAT 98
[2022-01-11 04:00] VITALS: PULSE 74; RESP 16
[2022-01-11 05:53] VITALS: BP 116/85; PULSE 70; RESP 16; O2SAT 97
[2022-01-11 06:04] LABS: Appearance Urine CLEAR; Color Urine YELLOW; Glucose Urine UA NEG (NEG); Leukocyte Esterase Urine NEG (NEG); Nitrite Urine NEG (NEG); Specific Gravity - Urine 1.015 (1.005-1.025); Urine Blood NEG (NEG); Urine Ketones NEG (NEG); Urine Protein NEG (NEG-TRACE)
[2022-01-11 06:16] LABS: Amphetamine Screen Urine Not Detected (Not Detect); Barbiturates, Urine Not Detected (Not Detect); Benzodiazepines Screen Urine Not Detected (Not Detect); Cannabinoid Screen Urine Not Detected (Not Detect); Cocaine Screen Urine Not Detected (Not Detect); Fentanyl, urine Not Detected (Not Detect); Opiate Screen Urine Not Detected (Not Detect); Phencyclidine Screen Urine Not Detected (Not Detect)
--- NOTE | 2022-01-11 06:54 | PC.NURSE ---
Pt brooke from department, Dr Knight made aware.
== END 2022-01-11 06:59 | disposition left against medical advice (07) ==
PROVIDERS: Emergency Provider Internal Medicine
DX: F25.0 Schizoaffective disorder, bipolar type (principal); F41.9 Anxiety disorder, unspecified; F17.210 Nicotine dependence, cigarettes, uncomplicated; Z79.899 Other long term (current) drug therapy; Z20.822 Contact with and (suspected) exposure to COVID-19
CPT/HCPCS: 80053; 80307; 81003; 82077; 85025; 87635; 99283

== ENCOUNTER 2022-01-15 23:18 | Emergency (ER) | payer MEDICARE, MEDICAID, SELFPAY ==
[2022-01-15 23:58] VITALS: BP 118/78; PULSE 75; RESP 18; TEMP 36.8; O2SAT 97; BMI 21.7
--- NOTE | 2022-01-16 00:31 | ED_ITS ---
HPI - Anxiety General Chief Complaint: Anxiety Stated Complaint: crisis Time Seen by Provider: 01/16/22 00:28 Source: patient Mode of arrival: ambulatory Limitations: no limitations History of Present Illness HPI narrative: Patient comes to the emergency room stating that he does not like his long-term, and also that the long-term is not giving him the catheters for straight catheterization. Of note, patient has been here with the same complaint. Our family independence case manager spoke to the group supervisor yard Marly, on that phone call, we were informed that patient had 7 unopened catheter kits with lubrication in his room and patient has access to them. Of note, when I walked into the patient's room, he was masturbating. Related Data Home Medications Medication Instructions Recorded Confirmed aripiprazole 20 mg tablet 1 tab PO QAM 05/26/21 12/30/21 bethanechol chloride 50 mg tablet 1 tab PO TID 05/26/21 12/30/21 carbamazepine 200 mg tablet 500 mg PO BID 05/26/21 12/30/21 clonazepam 0.5 mg tablet 1 tab PO DAILY 05/26/21 12/30/21 hydroxyzine HCl 10 mg tablet 1 tab PO TID PRN Anxiety 05/26/21 12/30/21 tamsulosin 0.4 mg capsule 1 cap PO BEDTIME 05/26/21 12/30/21 trazodone 50 mg tablet 1 tab PO BEDTIME PRN insomnia 05/26/21 12/30/21 haloperidol 5 mg tablet 10 mg PO BEDTIME 11/17/21 12/30/21 haloperidol 5 mg tablet 5 mg PO QAM 12/05/21 12/30/21 Previous Rx's Medication Instructions Recorded omeprazole 40 mg capsule,delayed 40 mg PO DAILY 30 days #30 caps 08/26/21 release atorvastatin 10 mg tablet 10 mg PO DAILY 30 days #30 tabs 12/08/21 cephalexin 500 mg capsule 500 mg PO BID 3 days #6 caps 12/28/21 nitrofurantoin 100 mg PO Q12H 7 days #14 caps 12/28/21 monohydrate/macrocrystals 100 mg capsule (Macrobid) clotrimazole 1 % topical cream 1 appl topical BID 2 weeks #15 12/30/21 (Lotrimin AF (clotrimazole)) grams prednisone 20 mg tablet 40 mg PO DAILY 5 days #10 tabs 12/30/21 cephalexin 500 mg capsule 500 mg PO Q6H 5 days #20 caps 01/02/22 Allergies Allergy/AdvReac Type Severity Reaction Status Date / Time No Known Allergies Allergy Unknown UNKNOWN Verified 01/11/22 00:35 [NO KNOWN ALLERGIES] Review of Systems Review of Systems: Constitutional : No Weight loss, No Fever, No Chills, No Night Sweats, No Fatigue, No Malaise ENT/Mouth : No Hearing loss, No Ear Pain, No Nasal Congestion, No Sinus Pain, No Hoarseness, No sore throat, No Rhinorrhea, No Swallowing Difficulty Eyes: No Eye Pain, No Swelling, No Redness, No Foreign Body, No Discharge, No Vision Changes Cardiovascular : No Chest Pain, No SOB, No Dyspnea on Exertion, No Orthopnea, No Edema, No Palpitations Respiratory : No Cough, No Sputum, No Wheezing, No Smoke Exposure, No Dyspnea Gastrointestinal : No Nausea, No Vomiting, No Diarrhea, No Constipation, No ab dominal Pain, No Hematochezia, No Melena Genitourinary : no irregular bleeding, No Dysuria, No Urinary Frequency, No Hematuria, No Urinary Incontinence, No Urgency, No Flank Pain, No Urinary Flow Changes, No Hesitancy Musculoskeletal : No joint pain, No Myalgias, No Joint Swelling Skin : No Skin Lesions, No rash Neuro : No Weakness, No Numbness, No Paresthesias, No Loss of Consciousness, No Dizziness, No Headache Psych : No Anxiety/Panic, No Depression, No SI/HI/AH/VH, dislikes his long-term Heme/Lymph: No Bruising, No Bleeding,No Lymphadenopathy Endocrine : No Polyuria, No Polydipsia, No Temperature Intolerance [facility] Past Medical History Medical History Anxiety Back pain Benign prostatic hyperplasia with lower urinary tract symptoms Bipolar 1 disorder Constipation Mood disorder Personal history of nicotine dependence Pure hypercholesterolemia Schizoaffective disorder, bipolar type Thought disorder Tubular adenoma of colon (~2018) Surgical History History of colonoscopy (~04/2019) History of open reduction and internal fixation (ORIF) procedure (~08/2018) History of prostate surgery (~04/2019) Family History Family History Father Lung cancer BPH (benign prostatic hyperplasia) Mother Dementia Brother Myocardial infarction Other Mental health problem Substance abuse Social History Social History Household Members: None Housing: Assisted Living Facility Housing Other:: long-term Do you presently have visiting nurse or other home services: No Alcohol intake: never Patient Tobacco Use Status: Current everyday Tobacco user Tobacco use type: Cigarette Cigarette Packs Per Day: 1 Cigarettes Per Day: 20.0 Years Smoked: 10 e-Cigarette/Vaping Use: Never Used Second Hand Smoke Exposure: Yes Advance Directives: No Advance Directives Information Provided: Yes service: No Current occupational status: employed Current occupation: [email or web address] Sexual orientation: Decline to Answer Cognitive needs: No Hearing needs: No Vision needs: Yes Physical Exam Vital Signs: Vital Signs: Last Vital Signs Temp 98.2 F 01/15/22 23:58 Pulse 75 01/15/22 23:58 Resp 18 01/15/22 23:58 BP 118/78 01/15/22 23:58 Pulse Ox 97 01/15/22 23:58 O2 Del Method 01/15/22 23:58 BMI result Body Mass Index 21.7 Const: Other: Appearance: Alert. Oriented X3. No acute distress. Eyes: Pupils equal, round and reactive to light. ENT: Pharynx normal. Neck: Normal inspection. Neck supple. No lymph nodes noted. No crepitus CVS: Normal heart rate and rhythm. Pulses normal. Normal S1 and S2 Respiratory: No respiratory distress. Breath sounds normal. No Wheezing. No rales Abdomen: Soft and nontender. No rigidity. No distention. Skin: Skin warm and dry. Normal skin color. Normal skin turgor. Extremities: No lower extremity edema. No Lacerations. No Rash Neuro: Oriented X 3. No motor deficit. No sensory deficit. Moving all extremities. No slurred speech. CN 2 through 12 grossly intact Psych: calm, cooperative, normal affect Course Course Course Narrative: Bladder scan pending As mentioned above, patient has not been truthful about his access to catheters at his long-term. Case management has been previously involved. It was confirmed that patient does have catheters available to him Patient was straight cath, urinalysis is negative for UTI. Patient ready for discharge MDM - Anxiety Lab Data Labs: Lab Results 01/16/22 Range/Units 02:04 Urine Color YELLOW Urine Appearance CLEAR Urine pH 7.0 (5.0-8.0) Ur Specific [place] 1.010 (1.005-1.025) Urine Protein NEG (NEG-TRACE) MG/DL Urine Glucose (UA) NEG (NEG) MG/DL Urine Ketones NEG (NEG) MG/DL Urine Blood NEG (NEG) Urine Nitrite NEG (NEG) Ur Leukocyte Esterase NEG (NEG) Discharge Plan Discharge Clinical Impression: Acute anxiety Patient Disposition: Home, Self-Care Instructions: Anxiety (ED) Additional Instructions: Please follow-up with your primary care physician tomorrow. If you have any worsening or new symptoms, please return to the emergency room or call 911 Prescriptions: No Action omeprazole 40 mg capsule,delayed release(DR/EC) 40 mg PO DAILY 30 Days Qty: 30 2RF atorvastatin 10 mg tablet 10 mg PO DAILY 30 Days Qty: 30 3RF haloperidol 5 mg tablet 10 mg PO BEDTIME cephalexin 500 mg capsule 500 mg PO BID 3 Days Qty: 6 0RF nitrofurantoin monohyd/m-cryst [Macrobid] 100 mg capsule 100 mg PO Q12H 7 Days Qty: 14 0RF Rx Instructions: must administer with a meal/food cephalexin 500 mg capsule 500 mg PO Q6H 5 Days Qty: 20 0RF carbamazepine 200 mg tablet 500 mg PO BID bethanechol chloride 50 mg tablet 1 tab PO TID aripiprazole 20 mg tablet 1 tab PO QAM clonazepam 0.5 mg tablet 1 tab PO DAILY hydroxyzine HCl 10 mg tablet 1 tab PO TID PRN (Reason: Anxiety) trazodone 50 mg tablet 1 tab PO BEDTIME PRN (Reason: insomnia) tamsulosin 0.4 mg capsule 1 cap PO BEDTIME haloperidol 5 mg tablet 5 mg PO QAM prednisone 20 mg tablet 40 mg PO DAILY 5 Days Qty: 10 0RF clotrimazole [Lotrimin AF (clotrimazole)] 1 % cream 1 appl topical BID 14 Days Qty: 15 0RF
--- NOTE | 2022-01-16 01:17 | PC.NURSE ---
Pt bladder scanned to find 274 mL in the bladder. Plan to straight cath and send sample to the lab.
--- NOTE | 2022-01-16 02:03 | PC.NURSE ---
Pt tolerated straight cath well. Urine sample sent to lab for analysis.
[2022-01-16 02:11] LABS: Appearance Urine CLEAR; Color Urine YELLOW; Glucose Urine UA NEG (NEG); Leukocyte Esterase Urine NEG (NEG); Nitrite Urine NEG (NEG); Urine Blood NEG (NEG); Urine Ketones NEG (NEG); Urine Protein NEG (NEG-TRACE)
== END 2022-01-16 02:44 | disposition home or self-care (01) ==
PROVIDERS: Emergency Provider Emergency Medicine; PCP Internal Medicine
DX: F41.1 Generalized anxiety disorder (principal); F43.0 Acute stress reaction; N40.0 Benign prostatic hyperplasia without lower urinary tract symptoms; R30.0 Dysuria; F17.210 Nicotine dependence, cigarettes, uncomplicated; Z71.6 Tobacco abuse counseling; Z79.899 Other long term (current) drug therapy
CPT/HCPCS: 51798; 81003; 99284

== ENCOUNTER 2022-01-21 22:07 | Emergency (ER) | payer MEDICARE, MEDICAID, SELFPAY ==
[2022-01-21 22:23] VITALS: BP 108/70; PULSE 63; RESP 18; TEMP 36.1; O2SAT 100; BMI 21.2
[2022-01-21 23:04] LABS: Appearance Urine Hazy; Color Urine Yellow; Glucose Urine UA Negative (Negative); Leukocyte Esterase Urine Moderate (2+) (Negative); Nitrite Urine Positive (Negative); PH 6.5 (5.0-8.0); Specific Gravity - Urine <= 1.005 (1.005-1.025); Urine Blood Trace (Negative); Urine Ketones Negative (Negative); Urine Protein Negative (Neg-Trace)
[2022-01-21 23:16] LABS: RBC Urine 0-2 /HPF (0-2); UACC Culture Trigger YES; WBC Urine 21-50 /HPF (0-5)
[2022-01-21 23:17] LABS: Bacteria Urine 3+ (None Seen); Hyaline Casts Urine 0-2 /LPF (0-2); Squamous Epithelial Cell Urine 0-2 /HPF (0-2)
== END 2022-01-22 03:56 | disposition left against medical advice (07) ==
PROVIDERS: Emergency Provider Emergency Medicine
DX: R33.9 Retention of urine, unspecified (principal); Z79.899 Other long term (current) drug therapy
CPT/HCPCS: 81001; 81003; 87086; 87088; 87186; 99282

== ENCOUNTER 2022-01-29 01:43 | Emergency (ER) | payer MEDICARE, MEDICAID, SELFPAY ==
[2022-01-29 02:03] VITALS: BP 115/74; PULSE 79; RESP 17; TEMP 36.7; O2SAT 96
[2022-01-29 02:05] VITALS: BP 115/74; PULSE 78; RESP 16; TEMP 36.6; O2SAT 96; BMI 20.3
--- NOTE | 2022-01-29 02:29 | ED.MALEGU ---
HPI - Male Genitourinary General Chief complaint: Urogenital-Male Stated complaint: mental health Time Seen by Provider: 01/29/22 02:29 Source: patient Mode of arrival: ambulatory Limitations: no limitations History of Present Illness HPI Narrative: Patient history of bipolar disorder , schizophrenia, BPH with urinary retention frequent visitor to the hospital comes here as for last few days as his urine smells bad and not able to drain his bladder completely on arrival bladder scan showed more than 700 cc of urine no fever no chills no back pain or nausea/ vomiting Related Data Home Medications Medication Instructions Recorded Confirmed aripiprazole 20 mg tablet 1 tab PO QAM 05/26/21 12/30/21 bethanechol chloride 50 mg tablet 1 tab PO TID 05/26/21 12/30/21 carbamazepine 200 mg tablet 500 mg PO BID 05/26/21 12/30/21 clonazepam 0.5 mg tablet 1 tab PO DAILY 05/26/21 12/30/21 hydroxyzine HCl 10 mg tablet 1 tab PO TID PRN Anxiety 05/26/21 12/30/21 tamsulosin 0.4 mg capsule 1 cap PO BEDTIME 05/26/21 12/30/21 trazodone 50 mg tablet 1 tab PO BEDTIME PRN insomnia 05/26/21 12/30/21 haloperidol 5 mg tablet 10 mg PO BEDTIME 11/17/21 12/30/21 haloperidol 5 mg tablet 5 mg PO QAM 12/05/21 12/30/21 Previous Rx's Medication Instructions Recorded omeprazole 40 mg capsule,delayed 40 mg PO DAILY 30 days #30 caps 08/26/21 release atorvastatin 10 mg tablet 10 mg PO DAILY 30 days #30 tabs 12/08/21 cephalexin 500 mg capsule 500 mg PO BID 3 days #6 caps 12/28/21 nitrofurantoin 100 mg PO Q12H 7 days #14 caps 12/28/21 monohydrate/macrocrystals 100 mg capsule (Macrobid) clotrimazole 1 % topical cream 1 appl topical BID 2 weeks #15 12/30/21 (Lotrimin AF (clotrimazole)) grams prednisone 20 mg tablet 40 mg PO DAILY 5 days #10 tabs 12/30/21 cephalexin 500 mg capsule 500 mg PO Q6H 5 days #20 caps 01/02/22 cefuroxime axetil 500 mg tablet 500 mg PO BID 10 days #20 tabs 01/29/22 tamsulosin 0.4 mg capsule (Flomax) 0.4 mg PO BEDTIME #30 caps 01/29/22 Allergies Allergy/AdvReac Type Severity Reaction Status Date / Time No Known Allergies Allergy Unknown UNKNOWN Verified 01/11/22 00:35 [NO KNOWN ALLERGIES] Review of Systems Review of Systems: Yes all other systems are reviewed and are negative [facility] Past Medical History Medical History Anxiety Back pain Benign prostatic hyperplasia with lower urinary tract symptoms Bipolar 1 disorder Constipation Mood disorder Personal history of nicotine dependence Pure hypercholesterolemia Schizoaffective disorder, bipolar type Thought disorder Tubular adenoma of colon (~2018) Surgical History History of colonoscopy (~04/2019) History of open reduction and internal fixation (ORIF) procedure (~08/2018) History of prostate surgery (~04/2019) Family History Family History Father Lung cancer BPH (benign prostatic hyperplasia) Mother Dementia Brother Myocardial infarction Other Mental health problem Substance abuse Social History Social History Household Members: None Housing: Assisted Living Facility Housing Other:: nursing home Do you presently have visiting nurse or other home services: No Alcohol intake: never Patient Tobacco Use Status: Current everyday Tobacco user Tobacco use type: Cigarette Cigarette Packs Per Day: 1 Cigarettes Per Day: 20.0 Years Smoked: 10 e-Cigarette/Vaping Use: Never Used Second Hand Smoke Exposure: Yes Advance Directives: No Advance Directives Information Provided: No service: No Current occupational status: employed 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 Oriented X3. No acute distress. Eyes: PERRLA, No Nystagmus ENT: Pharynx normal. Oral Mucosa moist Neck: Normal inspection. Neck supple. CVS: Normal heart rate and rhythm. Pulses normal. Respiratory: No respiratory distress. Equal air entry bilateral, no wheezing/rales/rhonchi Abdomen: Soft , suprapubic fullness+ Bowel sounds are present, no mass palpable, no CVA tenderness Skin: Skin warm and dry. Normal skin color. Normal skin turgor. Extremities: No lower extremity edema. No calf tenderness Neuro: Oriented X 3. No motor deficit. MDM - Male Genitourinary MDM Narrative Medical decision making narrative: Patient UA showed UTI bladder scan showed more than 700 cc after put the Santos catheter the patient urinated about 1000 cc will leave the Santos catheter and advised to follow-up with urologist advised to continue Flomax Lab Data Attestation: I reviewed the patient's lab results. Labs: Lab Results 01/29/22 Range/Units 02:59 Urine Color Yellow Urine Appearance Clear Urine pH 7.5 (5.0-8.0) Ur Specific Parrish 1.010 (1.005-1.025) Urine Protein Negative (Neg-Trace) mg/dL Urine Glucose (UA) Negative (Negative) mg/dL Urine Ketones Negative (Negative) mg/dL Urine Blood Negative (Negative) Urine Nitrite Positive H (Negative) Ur Leukocyte Esterase Moderate (2+) H (Negative) Urine RBC 3-5 H (0-2) /HPF Urine WBC 21-50 H (0-5) /HPF Ur Squamous Epith Cells 0-2 (0-2) /HPF Urine Bacteria 4+ (None Seen) Hyaline Casts 0-2 (0-2) /LPF Discharge Plan Discharge Clinical Impression: UTI (urinary tract infection), Acute retention of urine Patient Disposition: Home, Self-Care Instructions: Urinary Tract Infection in Men (ED), Santos Catheter Placement and Care (ED) Additional Instructions: Take antibiotic as prescribed Drink plenty of fluids Santos catheter care as advised Follow-up with urologist Prescriptions: New cefuroxime axetil 500 mg tablet 500 mg PO BID 10 Days Qty: 20 0RF tamsulosin [Flomax] 0.4 mg capsule 0.4 mg PO BEDTIME Qty: 30 0RF No Action omeprazole 40 mg capsule,delayed release(DR/EC) 40 mg PO DAILY 30 Days Qty: 30 2RF atorvastatin 10 mg tablet 10 mg PO DAILY 30 Days Qty: 30 3RF haloperidol 5 mg tablet 10 mg PO BEDTIME cephalexin 500 mg capsule 500 mg PO BID 3 Days Qty: 6 0RF nitrofurantoin monohyd/m-cryst [Macrobid] 100 mg capsule 100 mg PO Q12H 7 Days Qty: 14 0RF Rx Instructions: must administer with a meal/food cephalexin 500 mg capsule 500 mg PO Q6H 5 Days Qty: 20 0RF carbamazepine 200 mg tablet 500 mg PO BID bethanechol chloride 50 mg tablet 1 tab PO TID aripiprazole 20 mg tablet 1 tab PO QAM clonazepam 0.5 mg tablet 1 tab PO DAILY hydroxyzine HCl 10 mg tablet 1 tab PO TID PRN (Reason: Anxiety) trazodone 50 mg tablet 1 tab PO BEDTIME PRN (Reason: insomnia) tamsulosin 0.4 mg capsule 1 cap PO BEDTIME haloperidol 5 mg tablet 5 mg PO QAM prednisone 20 mg tablet 40 mg PO DAILY 5 Days Qty: 10 0RF clotrimazole [Lotrimin AF (clotrimazole)] 1 % cream 1 appl topical BID 14 Days Qty: 15 0RF Referrals: Keon Liu MD [Physician] - 1 week Interventions: ED Discharge Assessment Last Done: 01/29/22 05:39 Discharge Date/Time: 01/29/22 05:40
[2022-01-29 03:06] LABS: Appearance Urine Clear; Color Urine Yellow; Glucose Urine UA Negative (Negative); Leukocyte Esterase Urine Moderate (2+) (Negative); Nitrite Urine Positive (Negative); PH 7.5 (5.0-8.0); Urine Blood Negative (Negative); Urine Ketones Negative (Negative); Urine Protein Negative (Neg-Trace)
[2022-01-29 03:11] LABS: Bacteria Urine 4+ (None Seen); Hyaline Casts Urine 0-2 /LPF (0-2); Squamous Epithelial Cell Urine 0-2 /HPF (0-2); UACC Culture Trigger YES; WBC Urine 21-50 /HPF (0-5)
--- NOTE | 2022-01-29 04:59 | PC.NURSE ---
urine output 800cc yellow.
--- NOTE | 2022-01-29 05:39 | PC.NURSE ---
leg bag attached to schafer 16f catheter. output 1000cc clear yellow.
== END 2022-01-29 05:40 | disposition home or self-care (01) ==
PROVIDERS: Emergency Provider Internal Medicine
DX: N39.0 Urinary tract infection, site not specified (principal); B96.89 Other specified bacterial agents as the cause of diseases classified elsewhere; N40.1 Benign prostatic hyperplasia with lower urinary tract symptoms; R33.8 Other retention of urine; F17.210 Nicotine dependence, cigarettes, uncomplicated
CPT/HCPCS: 51702; 51798; 81001; 87086; 87088; 87186; 99284

== ENCOUNTER 2022-01-31 21:54 | Emergency (ER) | payer MEDICARE, MEDICAID, SELFPAY ==
[2022-01-31 22:20] VITALS: BP 104/77; PULSE 77; RESP 18; TEMP 36.6; O2SAT 97; BMI 20.9
== END 2022-02-01 00:45 | disposition left against medical advice (07) ==
PROVIDERS: Emergency Provider Emergency Medicine; PCP Internal Medicine
DX: F25.0 Schizoaffective disorder, bipolar type (principal); N40.1 Benign prostatic hyperplasia with lower urinary tract symptoms
CPT/HCPCS: 99281

== ENCOUNTER 2022-02-09 21:00 | Emergency (ER) | payer MEDICARE, MEDICAID, SELFPAY ==
[2022-02-09 21:48] VITALS: BP 138/88; PULSE 81; RESP 17; TEMP 36.8; O2SAT 97; BMI 20.5
--- NOTE | 2022-02-10 01:11 | ED_ITS ---
HPI - Male Genitourinary General Chief complaint: Urogenital-Male Stated complaint: incontinent of urine Time Seen by Provider: 02/10/22 00:33 Source: patient Mode of arrival: ambulatory Limitations: no limitations History of Present Illness HPI Narrative: Patient had Santos catheter placed on 01/29 for urinary tension comes here as Santos catheter is bothering him a lot wanted to be removed no fever no chills no other symptoms Related Data Home Medications Medication Instructions Recorded Confirmed aripiprazole 20 mg tablet 1 tab PO QAM 05/26/21 12/30/21 bethanechol chloride 50 mg tablet 1 tab PO TID 05/26/21 12/30/21 carbamazepine 200 mg tablet 500 mg PO BID 05/26/21 12/30/21 clonazepam 0.5 mg tablet 1 tab PO DAILY 05/26/21 12/30/21 hydroxyzine HCl 10 mg tablet 1 tab PO TID PRN Anxiety 05/26/21 12/30/21 tamsulosin 0.4 mg capsule 1 cap PO BEDTIME 05/26/21 12/30/21 trazodone 50 mg tablet 1 tab PO BEDTIME PRN insomnia 05/26/21 12/30/21 haloperidol 5 mg tablet 10 mg PO BEDTIME 11/17/21 12/30/21 haloperidol 5 mg tablet 5 mg PO QAM 12/05/21 12/30/21 Previous Rx's Medication Instructions Recorded atorvastatin 10 mg tablet 10 mg PO DAILY 30 days #30 tabs 12/08/21 cephalexin 500 mg capsule 500 mg PO BID 3 days #6 caps 12/28/21 nitrofurantoin 100 mg PO Q12H 7 days #14 caps 12/28/21 monohydrate/macrocrystals 100 mg capsule (Macrobid) clotrimazole 1 % topical cream 1 appl topical BID 2 weeks #15 12/30/21 (Lotrimin AF (clotrimazole)) grams prednisone 20 mg tablet 40 mg PO DAILY 5 days #10 tabs 12/30/21 cephalexin 500 mg capsule 500 mg PO Q6H 5 days #20 caps 01/02/22 cefuroxime axetil 500 mg tablet 500 mg PO BID 10 days #20 tabs 01/29/22 tamsulosin 0.4 mg capsule (Flomax) 0.4 mg PO BEDTIME #30 caps 01/29/22 omeprazole 40 mg capsule,delayed 40 mg PO DAILY 30 days #30 caps 01/31/22 release Allergies Allergy/AdvReac Type Severity Reaction Status Date / Time No Known Allergies Allergy Unknown UNKNOWN Verified 02/09/22 21:50 [NO KNOWN ALLERGIES] Review of Systems Review of Systems: Yes all other systems are reviewed and are negative [facility] Past Medical History Medical History Anxiety Back pain Benign prostatic hyperplasia with lower urinary tract symptoms Bipolar 1 disorder Constipation Mood disorder Personal history of nicotine dependence Pure hypercholesterolemia Schizoaffective disorder, bipolar type Thought disorder Tubular adenoma of colon (~2018) Surgical History History of colonoscopy (~04/2019) History of open reduction and internal fixation (ORIF) procedure (~08/2018) History of prostate surgery (~04/2019) Family History Family History Father Lung cancer BPH (benign prostatic hyperplasia) Mother Dementia Brother Myocardial infarction Other Mental health problem Substance abuse Social History Social History Household Members: None Housing: Assisted Living Facility Housing Other:: nursing home Do you presently have visiting nurse or other home services: No Alcohol intake: never Patient Tobacco Use Status: Current everyday Tobacco user Tobacco use type: Cigarette Cigarette Packs Per Day: 1 Cigarettes Per Day: 20.0 Years Smoked: 10 e-Cigarette/Vaping Use: Never Used Second Hand Smoke Exposure: Yes Advance Directives: No Advance Directives Information Provided: No service: No Current occupational status: employed Current occupation: [email or web address] Sexual orientation: Decline to Answer Cognitive needs: No Hearing needs: No Vision needs: Yes Physical Exam Vital Signs: Vital Signs: Last Vital Signs Temp 98.2 F 02/09/22 21:48 Pulse 81 02/09/22 21:48 Resp 17 02/09/22 21:48 BP 138/88 02/09/22 21:48 Pulse Ox 97 02/09/22 21:48 O2 Del Method 02/09/22 21:48 BMI result Body Mass Index 20.5 Appearance: Alert. Oriented X3. No acute distress. ENT: Pharynx normal. Oral Mucosa moist Neck: Normal inspection. Neck supple. CVS: Normal heart rate and rhythm. Pulses normal. Respiratory: No respiratory distress. Equal air entry bilateral, no wheezing/rales/rhonchi abd soft nontender Skin: Skin warm and dry. Normal skin color. Normal skin turgor. Extremities: No lower extremity edema. Neuro: Oriented X 3. MDM - Male Genitourinary MDM Narrative Medical decision making narrative: Santos catheter removed at patient request patient will follow-up with urologist as needed Discharge Plan Discharge Clinical Impression: Encounter for Santos catheter removal Patient Disposition: Home, Self-Care Instructions: Santos Catheter Removal (DC) Additional Instructions: Drink plenty of fluids report to ER/urologist if unable to urinate Prescriptions: No Action atorvastatin 10 mg tablet 10 mg PO DAILY 30 Days Qty: 30 3RF omeprazole 40 mg capsule,delayed release(DR/EC) 40 mg PO DAILY 30 Days Qty: 30 2RF haloperidol 5 mg tablet 10 mg PO BEDTIME cephalexin 500 mg capsule 500 mg PO BID 3 Days Qty: 6 0RF nitrofurantoin monohyd/m-cryst [Macrobid] 100 mg capsule 100 mg PO Q12H 7 Days Qty: 14 0RF Rx Instructions: must administer with a meal/food cephalexin 500 mg capsule 500 mg PO Q6H 5 Days Qty: 20 0RF carbamazepine 200 mg tablet 500 mg PO BID bethanechol chloride 50 mg tablet 1 tab PO TID aripiprazole 20 mg tablet 1 tab PO QAM clonazepam 0.5 mg tablet 1 tab PO DAILY hydroxyzine HCl 10 mg tablet 1 tab PO TID PRN (Reason: Anxiety) trazodone 50 mg tablet 1 tab PO BEDTIME PRN (Reason: insomnia) tamsulosin 0.4 mg capsule 1 cap PO BEDTIME haloperidol 5 mg tablet 5 mg PO QAM cefuroxime axetil 500 mg tablet 500 mg PO BID 10 Days Qty: 20 0RF tamsulosin [Flomax] 0.4 mg capsule 0.4 mg PO BEDTIME Qty: 30 0RF prednisone 20 mg tablet 40 mg PO DAILY 5 Days Qty: 10 0RF clotrimazole [Lotrimin AF (clotrimazole)] 1 % cream 1 appl topical BID 14 Days Qty: 15 0RF Interventions: LWBS Worksheet Last Done: 02/09/22 22:14
== END 2022-02-10 01:29 | disposition home or self-care (01) ==
PROVIDERS: Emergency Provider Internal Medicine; PCP Internal Medicine
DX: Z46.6 Encounter for fitting and adjustment of urinary device (principal); N40.1 Benign prostatic hyperplasia with lower urinary tract symptoms; R33.8 Other retention of urine; E78.00 Pure hypercholesterolemia, unspecified; F17.210 Nicotine dependence, cigarettes, uncomplicated; Z79.02 Long term (current) use of antithrombotics/antiplatelets; Z79.899 Other long term (current) drug therapy
CPT/HCPCS: 99283

== ENCOUNTER 2022-02-20 23:59 | Emergency (ER) | payer MEDICARE, MEDICAID, SELFPAY ==
[2022-02-21 00:31] VITALS: BP 106/68; PULSE 85; RESP 22; TEMP 36.9; O2SAT 96; BMI 21.4
== END 2022-02-21 08:25 | disposition left against medical advice (07) ==
PROVIDERS: Emergency Provider Emergency Medicine; PCP Internal Medicine
DX: N40.0 Benign prostatic hyperplasia without lower urinary tract symptoms (principal)
CPT/HCPCS: 99281

== ENCOUNTER 2022-02-23 22:33 | Emergency (ER) | payer MEDICARE, MEDICAID, SELFPAY ==
[2022-02-23 23:22] VITALS: BP 125/88; PULSE 86; RESP 22; TEMP 36.9; O2SAT 97; BMI 21.2
== END 2022-02-24 01:11 | disposition left against medical advice (07) ==
PROVIDERS: Emergency Provider Emergency Medicine; PCP Internal Medicine
DX: R11.10 Vomiting, unspecified (principal); R10.9 Unspecified abdominal pain
CPT/HCPCS: 99281

== ENCOUNTER 2022-02-27 02:04 | Emergency (ER) | payer MEDICARE, MEDICAID, SELFPAY ==
[2022-02-27 03:09] VITALS: BP 131/81; PULSE 84; RESP 16; TEMP 36.7; O2SAT 98; BMI 22.6
== END 2022-02-27 07:55 | disposition left against medical advice (07) ==
PROVIDERS: Emergency Provider Emergency Medicine
DX: R10.9 Unspecified abdominal pain (principal)
CPT/HCPCS: 99281

== ENCOUNTER 2022-02-28 21:27 | Emergency (ER) | payer MEDICARE, MEDICAID, SELFPAY | END 2022-02-28 23:40 | disposition left against medical advice (07) | LOC: HO.ED 23:30 | PROVIDERS: Emergency Provider Emergency Medicine | DX: F25.0 Schizoaffective disorder, bipolar type (principal); F41.9 Anxiety disorder, unspecified; F39 Unspecified mood [affective] disorder; F17.210 Nicotine dependence, cigarettes, uncomplicated ==

== ENCOUNTER 2022-03-03 01:01 | Emergency (ER) | payer MEDICARE, MEDICAID, SELFPAY ==
[2022-03-03 01:28] VITALS: BP 91/36; PULSE 84; RESP 18; TEMP 36.8; O2SAT 97; BMI 23.6
[2022-03-03 01:49] LABS: MANUAL DIFF FLAG NO
[2022-03-03 01:52] LABS: Basophils Absolute Auto 0.1 X10*3/uL (0.0-0.2); Basophils Percent Auto 1.1 % (0-2); Eosinophils Absolute Auto 0.2 X10*3/uL (0.0-0.4); Eosinophils Percent Auto 2.6 % (0-4); Hematocrit 36.9 % (42.0-52.0); Hemoglobin 12.9 g/dl (14.0-18.0); Imm Gran Abs Auto 0.03 X10*3/uL (0.00-0.03); Imm Gran Pct Auto 0.4 % (0.0-0.4); Lymphocytes Absolute Auto 1.7 X10*3/uL (1.2-4.9); Mean Corpuscular Hemoglobin 32.3 pg (27.0-33.0); Mean Corpuscular Volume 92.3 fL (80.0-98.0); Mean Platelet Volume 8.4 fL (9.4-12.4); Monocytes Absolute Auto 0.9 X10*3/uL (0.1-1.2); Monocytes Percent Auto 10.8 % (2-11); Neutrophils Absolute Auto 5.5 x10*3/uL (2.0-8.3); Neutrophils Percent Auto 65.1 % (45-73); Platelet Count 199 X10*3/uL (160-400); Red Cell Distribution Width 12.8 % (11.0-16.0); White Blood Count 8.5 X10*3/uL (4.8-10.8)
[2022-03-03 01:54] VITALS: BP 109/68; PULSE 79; RESP 17; TEMP 36.8; O2SAT 98
[2022-03-03 02:01] LABS: Strep A Nucleic Acid Negative (Negative)
[2022-03-03 02:13] LABS: Alanine Aminotransferase 15 U/L (0-40); Albumin Level 3.9 g/dL (3.5-5.0); Alkaline Phosphatase 69 U/L (39-117); Anion Gap 13 (12-20); Aspartate Amino Transferase 18 U/L (5-37); Bilirubin Total 0.2 mg/dL (0.0-1.0); Blood Urea Nitrogen 9 mg/dL (9-16); Calcium 8.8 mg/dL (8.4-10.2); Carbon Dioxide 25 mmol/L (22-29); Chloride 95 mmol/L (96-108); Creatinine Clr Calc Pharmacy 115.6; Estimated Glomerular Filt Rate > 60; Glucose Random 92 mg/dL (60-115); Potassium 4.4 mmol/L (3.3-5.1); Sodium 129 mmol/L (135-145); Total Protein 6.2 g/dL (6.5-8.0)
--- OUTSIDE RECORDS SUMMARY | 2022-03-03 03:36 | XMS_ITS | Continuity of Care Document ---
:1965 Author Organization [facility] Address [address] [place] [address]- Care Team Providers Name Role Phone Dk Rodriguez MD Primary Care Physician [place] [facility] [place](s[place] 12/07/20 - 12/07/[address] [address]- Discharge Disposition: A-D/C Walkout Attending Physician: Not on Staff, Attending MD Admitting Physician: Not on Staff, Admitting MD Referring Physician: Not on Staff, Referring MD Allergies, Adverse Reactions, Alerts Substance Reaction Severity Status NKA Active Immunizations Given and Recorded Vaccine Date Status Refusal Reason pneumococcal 23-valent vaccine 09/30/12 Given Medications Abilify 5 mg oral tablet 1 tablet = 5 mg, By Mouth, Daily, # 30 tablet, 0 Refills, Maintenance, 11/18/14 13:46:36, Tablet Start Date: 11/18/14 Status: OrderedCogentin Tablet 1 mg, By Mouth, 3 times a day, Maintenance, 11/18/14 13:49:07 Start Date: 11/18/14 Status: Ordereddivalproex sodium 500 mg oral enteric coated tablet = 500 mg, By Mouth, 2 times a day, # 60 tablet, 0 Refills, Maintenance, 11/19/14 15:48:22, Tablet, 500 mg By Mouth 2 times a day,x30 days Start Date: 11/19/14 Stop Date: 12/19/14 Status: OrderedFlomax 0.4 mg oral capsule 0.4 mg, 1, capsule, By Mouth, Daily, Refills 0, Maintenance, 04/06/20 1:22:00 EST Start Date: 04/06/20 Status: Orderedgabapentin 100 mg oral capsule = 100 mg, By Mouth, 3 times a day, # 90 tablet, 0 Refills, Maintenance, 11/19/14 15:49:04, Capsule, 100 mg By Mouth 3 times a day,x30 days Start Date: 11/19/14 Stop Date: 12/19/14 Status: OrderedHydrOXYzine HCL Tablet = 10 mg, By Mouth, 3 times a day, PRN Itch, 0 Refills, Maintenance, 11/18/14 13:50:21, Tablet Start Date: 11/18/14 Status: OrderedLexapro 10 mg oral tablet 1 tablet = 10 mg, By Mouth, Daily, 0 Refills, Maintenance, 12/08/19 1:54:00 EDT Start Date: 12/08/19 Status: Orderedolanzapine 10 mg oral tablet = 10 mg, By Mouth, 3 times a day, # 90 tablet, 0 Refills, Maintenance, 11/19/14 15:48:43, Tablet, 10mg By Mouth 3 times a day,x30 days Start Date: 11/19/14 Stop Date: 12/19/14 Status: Orderedprazosin 2 mg oral capsule See Instructions, daily at hs, 0 Refills, Maintenance, 11/18/14 13:51:24, Capsule Start Date: 11/18/14 Status: Orderedsimvastatin 10 mg oral tablet 1 tablet = 10 mg, By Mouth, Daily, # 30 tablet, 0 Refills, Maintenance, Tablet Start Date: 05/23/12 Stop Date: 06/22/12 Status: OrderedZyPREXA 15 mg oral tablet 1 tablet = 15 mg, By Mouth, Daily, # 30 tablet, 0 Refills, Maintenance, 12/08/19 1:54:00 EDT, Tablet Start Date: 12/08/19 Status: Ordered Problem List Condition Effective Dates Status Health Status Informant Alcohol Abuse, in Remission(Confirmed) Active Anxiety(Confirmed) Active Carbuncle of face(Confirmed) Active Vital Signs Most recent to oldest [Reference Range]: 1 Oxygen Saturation [94-100 %] 97 % (12/07/20 2:56 AM) Pulse Rate [55-90 bpm] 86 bpm (12/07/20 2:56 AM) Blood Pressure [90-138/55-84 mm Hg] 119/65 mm Hg (12/07/20 2:56 AM) Respiratory Rate [16-30 br/min] 16 br/min (12/07/20 2:56 AM) Temperature [96.8-100.4 DegF] 98.5 DegF (12/07/20 2:56 AM) Mode of Delivery (Oxygen) Room air (12/07/20 2:56 AM) Blood pressure sites Arm, right (12/07/20 2:56 AM) Temperature Route Oral (12/07/20 2:56 AM) Social History Social History Type Response Smoking Status Current every day smoker; To bacco user in household: Yes entered on: 04/26/14 Sex Male
--- OUTSIDE RECORDS SUMMARY | 2022-03-03 03:36 | XMS_ITS | Continuity of Care Document ---
:1965 Author Organization [facility] Address [address] [place] [address]- Care Team Providers Name Role Phone Dk Rodriguez MD Primary Care Physician [place] [facility] [place] 11[place]/[address] [address]- [facility] Discharge Disposition: A-D/C Walkout Attending Physician: Not [...] Start Date: 11/19/14 Stop Date: 12/19/14 Status: Orderedgabapentin 100 mg oral capsule = [...] 11/18/14 13:50:21, Tablet Start Date: 11/18/14 Status: Orderedolanzapine 10 mg oral tablet = [...] Start Date: 05/23/12 Stop Date: 06/22/12 Status: Ordered Problem List Condition Effective Dates Status Health Status Informant Alcohol Abuse, in Remission(Confirmed) Active Anxiety(Confirmed) Active Carbuncle of face(Confirmed) Active Vital Signs Most recent to oldest [Reference Range]: 1 Weight 76.9 kg (11/05/19 11:11 PM) Oxygen Saturation [94-100 %] 97 % (11/05/19 11:11 PM) Pulse Rate [55-90 bpm] 92 bpm *H* (11/05/19 11:11 PM) Blood Pressure [90-138/55-84 mm Hg] 119/79 mm Hg (11/05/19 11:11 PM) Respiratory Rate [16-30 br/min] 18 br/min (11/05/19 11:11 PM) Temperature [96.8-100.4 DegF] 98.8 DegF (11/05/19 11:11 PM) Mode of Delivery (Oxygen) Room air (11/05/19 11:11 PM) Blood pressure sites Arm, right (11/05/19 11:11 PM) Temperature Route Oral (11/05/19 11:11 PM) Dry Weight 76.9 kg (11/05/19 11:11 PM) Weight Obtained Via Standing scale (11/05/19 11:11 PM) Dry Weight Obtained Via Standing scale (11/05/19 11:11 PM) Social History Social History Type Response Smoking Status Current every day smoker; To bacco user in household: Yes entered on: 04/26/14 Sex Male
--- OUTSIDE RECORDS SUMMARY | 2022-03-03 03:36 | XMS_ITS | Continuity of Care Document ---
:1965 Author Organization [facility] Address [address] [place] [address]- Care Team Providers Name Role Phone Dk Rodriguez MD Primary Care Physician [place] [facility] [place] 10/20/[address] [address]- [facility] Encounter Diagnosis Impulse disorder (Final) - 10/20/19 Discharge Disposition: A-D/C Home Attending Physician: Court Salgado MD Admitting Physician: Court Salgado MD Referring Physician: Not on Staff, Referring [...] Active Vital Signs Most recent to oldest 1 2 3 [Reference Range]: Oxygen Saturation [94-100 %] 100 % 99 % 98 % (10/20/19 8:53 AM) (10/20/19 6:08 AM) (10/20/19 2:5 7 AM) Pulse Rate [55-90 bpm] 66 bpm 79 bpm 71 bpm (10/20/19 8:53 AM) (10/20/19 6:08 AM) (10/20/19 2:5 7 AM) Blood Pressure [90-138/55-84 mm 142/89 mm Hg 123/57 mm Hg 136/83 mm Hg Hg] *H* (10/20/19 6:08 AM) (10/20/19 2:57 AM) (10/20/19 8:53 AM) Respiratory Rate [16-30 br/min] 20 br/min 18 br/min 16 br/min (10/20/19 8:53 AM) (10/20/19 6:08 AM) (10/20/19 2:5 7 AM) Temperature [96.8-100.4 DegF] 97.4 DegF 98.1 DegF 97 .6 DegF (10/20/19 8:53 AM) (10/20/19 6:08 AM) (10/20/19 2:5 7 AM) Mode of Delivery (Oxygen) Room air Room air Room a ir (10/20/19 8:53 AM) (10/20/19 6:08 AM) (10/20/19 2:5 7 AM) Blood pressure sites Arm, right Arm, left Arm, left (10/20/19 8:53 AM) (10/20/19 6:08 AM) (10/20/19 2:5 7 AM) Temperature Route Oral Oral Oral (10/20/19 8:53 AM) (10/20/19 6:08 AM) (10/20/19 2:5 7 AM) Social History Social History Type Response Smoking Status Current every day smoker; To bacco user in household: Yes entered on: 04/26/14 Sex Male
--- OUTSIDE RECORDS SUMMARY | 2022-03-03 03:36 | XMS_ITS | Continuity of Care Document ---
:1965 Author Organization [facility] Address [address] [place] [address]- Care Team Providers Name Role Phone Dk Rodriguez MD Primary Care Physician [place] [facility] [place] 01/10/20 - 01/11/[address] [address]- [facility] Discharge Disposition: A-D/C Walkout Attending Physician: Not [...] day,x30 days Start Date: 11/19/14 Stop Date: 7/17/15 Status: OrderedHydrOXYzine HCL Tablet = 10 mg, [...] 1 Oxygen Saturation [94-100 %] 97 % (01/10/20 10:20 PM) Pulse Rate [55-90 bpm] 83 bpm (01/10/20 10:20 PM) Blood Pressure [90-138/55-84 mm Hg] 111/70 mm Hg (01/10/20 10:20 PM) Respiratory Rate [16-30 br/min] 18 br/min (01/10/20 10:20 PM) Temperature [96.8-100.4 DegF] 98.1 DegF (01/10/20 10:20 PM) Mode of Delivery (Oxygen) Room air (01/10/20 10:20 PM) Temperature Route Oral (01/10/20 10:20 PM) Social History Social History Type Response Smoking Status Current every day smoker; To bacco user in household: Yes entered on: 04/26/14 Sex Male
--- OUTSIDE RECORDS SUMMARY | 2022-03-03 03:36 | XMS_ITS | Continuity of Care Document ---
:1965 Author Organization [facility] Address [address] [place] [address]- Care Team Providers Name Role Phone Dk Rodriguez MD Primary Care Physician Encounter [facility] [place] Date(s): 07/13/20 - 07/14/[address] [address]- Discharge Disposition: A-D/C Walkout Attending Physician: Not [...] [Reference Range]: 1 Oxygen Saturation [94-100 %] 98 % (07/14/20 12:00 AM) Pulse Rate [55-90 bpm] 98 bpm *H* (07/14/20 12:00 AM) Blood Pressure [90-138/55-84 mm Hg] 109/67 mm Hg (07/14/20 12:00 AM) Respiratory Rate [16-30 br/min] 14 br/min *L* (07/14/20 12:00 AM) Temperature [96.8-100.4 DegF] 98.1 DegF (07/14/20 12:00 AM) Mode of Delivery (Oxygen) Room air (07/14/20 12:00 AM) Blood pressure sites Arm, right (07/14/20 12:00 AM) Temperature Route Oral (07/14/20 12:00 AM) Social History Social History Type Response Smoking Status Current every day smoker; To bacco user in household: Yes entered on: 04/26/14 Sex Male
--- OUTSIDE RECORDS SUMMARY | 2022-03-03 03:36 | XMS_ITS | Continuity of Care Document ---
:1965 Author Organization [facility] Address [address] [place] [address]- Care Team Providers Name Role Phone Dk Rodriguez MD Primary Care Physician [place] [facility] [place] 12/30/19 - 12/31/[address] [address]- [facility] Discharge Disposition: A-D/C Walkout Attending Physician: [...] 1 Oxygen Saturation [94-100 %] 97 % (12/30/19 10:49 PM) Pulse Rate [55-90 bpm] 64 bpm (12/30/19 10:49 PM) Blood Pressure [90-138/55-84 mm Hg] 110/72 mm Hg (12/30/19 10:49 PM) Respiratory Rate [16-30 br/min] 18 br/min (12/30/19 10:49 PM) Temperature [96.8-100.4 DegF] 98.0 DegF (12/30/19 10:49 PM) Mode of Delivery (Oxygen) Room air (12/30/19 10:49 PM) Temperature Route Oral (12/30/19 10:49 PM) Social History Social History Type Response Smoking Status Current every day smoker; To bacco user in household: Yes entered on: 04/26/14 Sex Male
--- OUTSIDE RECORDS SUMMARY | 2022-03-03 03:36 | XMS_ITS | Continuity of Care Document ---
:1965 [address] Organization [facility] Address [address] [place] [address]- Care Team Providers Name Role Phone Dk Rodriguez MD Primary Care Physician [place] [facility] [place] 11/12/[place] - 11/13/[address] [address]- [facility] Discharge Disposition: A-D/C Walkout Attending Physician: Not [...] 1 Oxygen Saturation [94-100 %] 97 % (11/12/19 11:40 PM) Pulse Rate [55-90 bpm] 79 bpm (11/12/19 11:40 PM) Blood Pressure [90-138/55-84 mm Hg] 114/74 mm Hg (11/12/19 11:40 PM) Respiratory Rate [16-30 br/min] 18 br/min (11/12/19 11:40 PM) Temperature [96.8-100.4 DegF] 97.9 DegF (11/12/19 11:40 PM) Mode of Delivery (Oxygen) Room air (11/12/19 11:40 PM) Blood pressure sites Arm, left (11/12/19 11:40 PM) Temperature Route Oral (11/12/19 11:40 PM) Social History Social History Type Response Smoking Status Current every day smoker; To bacco user in household: Yes entered on: 04/26/14 Sex Male
--- OUTSIDE RECORDS SUMMARY | 2022-03-03 03:36 | XMS_ITS | Continuity of Care Document ---
:1965 Author Organization [facility] Address [address] [place] [address]- Care Team Providers Name Role Phone Dk Rodriguez MD Primary Care Physician [place] [facility] [place] - 11/15/[address] [address]- [facility] Discharge Disposition: A-D/C Walkout Attending Physician: Not [...] 1 Oxygen Saturation [94-100 %] 98 % (11/14/19 9:45 PM) Pulse Rate [55-90 bpm] 73 bpm (11/14/19 9:45 PM) Blood Pressure [90-138/55-84 mm Hg] 111/66 mm Hg (11/14/19 9:45 PM) Respiratory Rate [16-30 br/min] 16 br/min (11/14/19 9:45 PM) Temperature [96.8-100.4 DegF] 98 DegF (11/14/19 9:45 PM) Mode of Delivery (Oxygen) Room air (11/14/19 9:45 PM) Blood pressure sites Arm, left (11/14/19 9:45 PM) Temperature Route Oral (11/14/19 9:45 PM) Dry Weight 74 kg (11/14/19 9:45 PM) Social History Social History Type Response Smoking Status Current every day smoker; To bacco user in household: Yes entered on: 04/26/14 Sex Male
--- OUTSIDE RECORDS SUMMARY | 2022-03-03 03:36 | XMS_ITS | Continuity of Care Document ---
:1965 Author Organization [facility] Address [address] [place] [address]- Care Team Providers Name Role Phone Dk Rodriguez MD Primary Care Physician Encounter [facility] [place] Date(s): 11/27/19 - 11/27/[address] [address]- [facility] Discharge Disposition: A-D/C Walkout Attending Physician: [...] 1 Oxygen Saturation [94-100 %] 98 % (11/27/19 1:20 AM) Pulse Rate [55-90 bpm] 79 bpm (11/27/19 1:20 AM) Blood Pressure [90-138/55-84 mm Hg] 120/72 mm Hg (11/27/19 1:20 AM) Respiratory Rate [16-30 br/min] 20 br/min (11/27/19 1:20 AM) Temperature [96.8-100.4 DegF] 98.3 DegF (11/27/19 1:20 AM) Mode of Delivery (Oxygen) Room air (11/27/19 1:20 AM) Blood pressure sites Arm, right (11/27/19 1:20 AM) Temperature Route Oral (11/27/19 1:20 AM) Social History Social History Type Response Smoking Status Current every day smoker; To bacco user in household: Yes entered on: 04/26/14 Sex Male
--- OUTSIDE RECORDS SUMMARY | 2022-03-03 03:36 | XMS_ITS | Continuity of Care Document ---
:1965 Author Organization [facility] Address [address] [place] [address]- Care Team Providers Name Role Phone Dk Rodriguez MD Primary Care Physician [place] [facility] [place] 04/06/20 - 04/06/[address] [address]- [facility] Discharge Disposition: A-D/C Walkout Attending [...] [Reference Range]: 1 Oxygen Saturation [94-100 %] 99 % (04/06/20 1:24 AM) Pulse Rate [55-90 bpm] 80 bpm (04/06/20 1:24 AM) Blood Pressure [90-138/55-84 mm Hg] 133/83 mm Hg (04/06/20 1:24 AM) Respiratory Rate [16-30 br/min] 16 br/min (04/06/20 1:24 AM) Temperature [96.8-100.4 DegF] 98.1 DegF (04/06/20 1:24 AM) Mode of Delivery (Oxygen) Room air (04/06/20 1:24 AM) Blood pressure sites Arm, left (04/06/20 1:24 AM) Temperature Route Oral (04/06/20 1:24 AM) Social History Social History Type Response Smoking Status Current every day smoker; To bacco user in household: Yes entered on: 04/26/14 Sex Male
--- OUTSIDE RECORDS SUMMARY | 2022-03-03 03:36 | XMS_ITS | Continuity of Care Document ---
:1965 Author Organization [facility] Address [address] [place] [address]- Care Team Providers Name Role Phone Dk Rodriguez MD Primary Care Physician En[place] [facility] [place] Date(s): 07/22/19 - 07/22/[address] [address]- [facility] Encounter Diagnosis Abdominal pain in male (Final) - 07/22/19 Discharge Disposition: A-D/C Home Attending Physician: Taz Cameron MD Admitting Physician: Taz Cameron MD Referring Physician: Not on Staff, Referring [...] 3 [Reference Range]: Oxygen Saturation [94-100 %] 99 % 97 % 97 % (07/22/19 6:42 AM) (07/22/19 2:55 AM) (07/22/19 1:1 0 AM) Pulse Rate [55-90 bpm] 84 bpm 76 bpm 86 bpm (07/22/19 6:42 AM) (07/22/19 2:55 AM) (07/22/19 1:1 0 AM) Blood Pressure [90-138/55-84 mm 112/75 mm Hg 140/89 mm Hg 140/73 mm Hg Hg] (07/22/19 6:42 AM) *H* *H* (07/22/19 2:55 AM) (07/22/19 1:10 AM) Respiratory Rate [16-30 br/min] 20 br/min 18 br/min 18 br/min (07/22/19 6:42 AM) (07/22/19 2:55 AM) (07/22/19 1:1 0 AM) Temperature [96.8-100.4 DegF] 97.8 DegF 97.8 DegF (07/22/19 2:55 AM) (07/22/19 1:10 AM) Mode of Delivery (Oxygen) Room air Room air Room a ir (07/22/19 6:42 AM) (07/22/19 2:55 AM) (07/22/19 1:1 0 AM) Blood pressure sites Arm, left Arm, left Arm, left (07/22/19 6:42 AM) (07/22/19 2:55 AM) (07/22/19 1:1 0 AM) Temperature Route Oral Oral (07/22/19 2:55 AM) (07/22/19 1:10 AM) Social History Social History Type Response Smoking Status Current every day smoker; To bacco user in household: Yes entered on: 04/26/14 Sex Male
--- OUTSIDE RECORDS SUMMARY | 2022-03-03 03:36 | XMS_ITS | Continuity of Care Document ---
:1965 Author Organization [facility] Address [address] [place] [address]- Care Team Providers Name Role Phone Dk Rodriguez MD Primary Care Physician [place] [facility] [place] Date(s): 01/02/22 - 01/03/[address] [address]- Discharge Disposition: A-D/C Walkout Attending Physician: Not on Staff, Attending MD Admitting Physician: Not on Staff, Admitting MD Referring Physician: Not on Staff, Referring MD Allergies, Adverse Reactions, Alerts No Known Allergies Immunizations Given and Recorded Vaccine Date Status [...] 1 Oxygen Saturation [94-100 %] 97 % (01/03/22 1:51 AM) Pulse Rate [55-90 bpm] 88 bpm (01/03/22 1:51 AM) Blood Pressure [90-138/55-84 mm Hg] 116/70 mm Hg (01/03/22 1:51 AM) Respiratory Rate [16-30 br/min] 16 br/min (01/03/22 1:51 AM) Temperature [96.8-100.4 DegF] 97.9 DegF (01/03/22 1:51 AM) Mode of Delivery (Oxygen) Room air (01/03/22 1:51 AM) Blood pressure sites Arm, right (01/03/22 1:51 AM) Temperature Route Oral (01/03/22 1:51 AM) Social History Social History Type Response Smoking Status Current every day smoker; To bacco user in household: Yes entered on: 04/26/14 Sex Male
--- OUTSIDE RECORDS SUMMARY | 2022-03-03 03:36 | XMS_ITS | Continuity of Care Document ---
:1965 Author Organization [facility] Address [address] [place] [address]- Care Team Providers Name Role Phone Dk Rodriguez MD Primary Care Physician [place] [facility] [place]/18[place] - 01/18/[address] [address]- Discharge Disposition: A-D/C Walkout Attending Physician: Not [...] Most recent to oldest [Reference Range]: 1 2 Oxygen Saturation [94-100 %] 98 % (01/18/22 1:18 AM) Pulse Rate [55-90 bpm] 93 bpm *H* (01/18/22 1:18 AM) Blood Pressure [90-138/55-84 mm Hg] 110/75 mm Hg (01/18/22 1:28 AM) Respiratory Rate [16-30 br/min] 18 br/min 18 br/mi n (01/18/22 1:28 AM) (01/18/22 1:18 AM) Temperature [96.8-100.4 DegF] 97.7 DegF (01/18/22 1:28 AM) Blood pressure sites Arm, right (01/18/22 1:28 AM) Temperature Route Oral (01/18/22 1:28 AM) Social History Social History Type Response Smoking Status Current every day smoker; To bacco user in household: Yes entered on: 04/26/14 Sex Male
--- OUTSIDE RECORDS SUMMARY | 2022-03-03 03:36 | XMS_ITS | Continuity of Care Document ---
:1965 Author Organization [facility] Address [address] [place] [address]- Care Team Providers Name Role Phone Dk Rodriguez MD Primary Care Physician En[place] [facility] [place] Date(s): 06/29/20 - 06/30/[address] [address]- Discharge Disposition: A-D/C Home Attending Physician: Tomi Flores MD Admitting Physician: Tomi Flores MD Referring Physician: Not on Staff, Referring [...] 2 Oxygen Saturation [94-100 %] 98 % 100 % (06/30/20 3:06 AM) (06/30/20 12:01 AM) Pulse Rate [55-90 bpm] 79 bpm 84 bpm (06/30/20 3:06 AM) (06/30/20 12:01 AM) Blood Pressure [90-138/55-84 mm Hg] 122/75 mm Hg 113/ 72 mm Hg (06/30/20 3:06 AM) (06/30/20 12:01 AM) Respiratory Rate [16-30 br/min] 17 br/min 16 br/mi n (06/30/20 3:06 AM) (06/30/20 12:01 AM) Temperature [96.8-100.4 DegF] 98.9 DegF 98.5 DegF (06/30/20 3:06 AM) (06/30/20 12:01 AM) Mode of Delivery (Oxygen) Room air Room air (06/30/20 3:06 AM) (06/30/20 12:01 AM) Blood pressure sites Arm, left Arm, left (06/30/20 3:06 AM) (06/30/20 12:01 AM) Temperature Route Oral Oral (06/30/20 3:06 AM) (06/30/20 12:01 AM) Social History Social History Type Response Smoking Status Current every day smoker; To bacco user in household: Yes entered on: 04/26/14 Sex Male
--- OUTSIDE RECORDS SUMMARY | 2022-03-03 03:36 | XMS_ITS | Continuity of Care Document ---
:1965 Author Organization [facility] Address [address] [place] [address]- Care Team Providers Name Role Phone Dk Rodriguez MD Primary Care Physician Encounter [facility] [place] Date(s): 09/09/20 - 09/09/[address] [address]- Discharge Disposition: A-D/C Walkout Attending Physician: Not [...] 1 Oxygen Saturation [94-100 %] 99 % (09/09/20 3:19 AM) Pulse Rate [55-90 bpm] 90 bpm (09/09/20 3:19 AM) Blood Pressure [90-138/55-84 mm Hg] 136/77 mm Hg (09/09/20 3:19 AM) Respiratory Rate [16-30 br/min] 16 br/min (09/09/20 3:19 AM) Temperature [96.8-100.4 DegF] 98.9 DegF (09/09/20 3:19 AM) Mode of Delivery (Oxygen) Room air (09/09/20 3:19 AM) Temperature Route Oral (09/09/20 3:19 AM) Social History Social History Type Response Smoking Status Current every day smoker; To bacco user in household: Yes entered on: 04/26/14 Sex Male
--- OUTSIDE RECORDS SUMMARY | 2022-03-03 03:36 | XMS_ITS | Continuity of Care Document ---
:1965 Author Organization [facility] Address [address] [place] [address]- Care Team Providers Name Role Phone Dk Rodriguez MD Primary Care Physician [place] [facility] [place]13[place] - 11/14/[address] [address]- [facility] Discharge Disposition: A-D/C Home Attending Physician: Jeremy Larios MD Admitting Physician: Jeremy Larios MD Referring Physician: Not on Staff, Referring [...] Oxygen Saturation [94-100 %] 98 % (11/14/19 12:05 AM) Pulse Rate [55-90 bpm] 75 bpm (11/14/19 12:05 AM) Blood Pressure [90-138/55-84 mm Hg] 128/73 mm Hg (11/14/19 12:05 AM) Respiratory Rate [16-30 br/min] 16 br/min (11/14/19 12:05 AM) Temperature [96.8-100.4 DegF] 98.1 DegF (11/14/19 12:05 AM) Mode of Delivery (Oxygen) Room air (11/14/19 12:05 AM) Temperature Route Oral (11/14/19 12:05 AM) Social History Social History Type Response Smoking Status Current every day smoker; To bacco user in household: Yes entered on: 04/26/14 Sex Male
--- OUTSIDE RECORDS SUMMARY | 2022-03-03 03:36 | XMS_ITS | Continuity of Care Document ---
:1965 Author Organization [facility] Address [address] [place] [address]- Care Team Providers Name Role Phone Dk Rodriguez MD Primary Care Physician [place] [facility] [place] 08/11/20 - 08/12/[address] [address]- Discharge Disposition: A-D/C Walkout Attending Physician: Not [...] Saturation [94-100 %] 98 % 100 % (08/12/20 2:10 AM) (08/11/20 10:37 PM) Pulse Rate [55-90 bpm] 70 bpm 79 bpm (08/12/20 2:10 AM) (08/11/20 10:37 PM) Blood Pressure [90-138/55-84 mm Hg] 121/74 mm Hg 114/ 56 mm Hg (08/12/20 2:10 AM) (08/11/20 10:37 PM) Respiratory Rate [16-30 br/min] 20 br/min 20 br/mi n (08/12/20 2:10 AM) (08/11/20 10:37 PM) Temperature [96.8-100.4 DegF] 97.7 DegF 98.5 DegF (08/12/20 2:10 AM) (08/11/20 10:37 PM) Mode of Delivery (Oxygen) Nasal cannula Room air (08/12/20 2:10 AM) (08/11/20 10:37 PM) Blood pressure sites Arm, right Arm, right (08/12/20 2:10 AM) (08/11/20 10:37 PM) Temperature Route Oral Oral (08/12/20 2:10 AM) (08/11/20 10:37 PM) Social History Social History Type Response Smoking Status Current every day smoker; To bacco user in household: Yes entered on: 04/26/14 Sex Male
--- OUTSIDE RECORDS SUMMARY | 2022-03-03 03:36 | XMS_ITS | Continuity of Care Document ---
:1965 Author Organization [facility] Address [address] [place] [address]- Care Team Providers Name Role Phone Dk Rodriguez MD Primary Care Physician [place] [facility] [place] Date(s): 12/21/20 - 12/21/[address] [address]- Discharge Disposition: A-D/C Walkout Attending Physician: Not [...] 2 Oxygen Saturation [94-100 %] 98 % 96 % (12/21/20 2:30 AM) (12/21/20 2:27 AM) Pulse Rate [55-90 bpm] 85 bpm 94 bpm (12/21/20 2:30 AM) *H* (12/21/20 2:27 AM) Blood Pressure [90-138/55-84 mm Hg] 110/73 mm Hg (12/21/20 2:30 AM) Respiratory Rate [16-30 br/min] 18 br/min 18 br/mi n (12/21/20 2:30 AM) (12/21/20 2:27 AM) Temperature [96.8-100.4 DegF] 98.7 DegF (12/21/20 2:30 AM) Mode of Delivery (Oxygen) Room air Room air (12/21/20 2:30 AM) (12/21/20 2:27 AM) Blood pressure sites Arm, left (12/21/20 2:30 AM) Temperature Route Oral (12/21/20 2:30 AM) Social History Social History Type Response Smoking Status Current every day smoker; To bacco user in household: Yes entered on: 04/26/14 Sex Male
--- OUTSIDE RECORDS SUMMARY | 2022-03-03 03:36 | XMS_ITS | Continuity of Care Document ---
:1965 Author Organization [facility] Address [address] [place] [address]- Care Team Providers Name Role Phone Dk Rodriguez MD Primary Care Physician [place] [facility] [place] Date(s): 08/11/19 - 08/11/[address] [address]- [facility] Discharge Disposition: A-D/C Home Attending Physician: Fede Cook MD Admitting Physician: Fede Cook MD Referring Physician: Not on Staff, Referring [...] 2 Oxygen Saturation [94-100 %] 98 % 98 % (08/11/19 6:21 AM) (08/11/19 4:35 AM) Pulse Rate [55-90 bpm] 75 bpm 84 bpm (08/11/19 6:21 AM) (08/11/19 4:35 AM) Blood Pressure [90-138/55-84 mm Hg] 129/72 mm Hg 147/ 89 mm Hg (08/11/19 6:21 AM) *H* (08/11/19 4:35 AM) Respiratory Rate [16-30 br/min] 16 br/min 18 br/mi n (08/11/19 6:21 AM) (08/11/19 4:35 AM) Temperature [96.8-100.4 DegF] 97.9 DegF (08/11/19 4:35 AM) Mode of Delivery (Oxygen) Room air Room air (08/11/19 6:21 AM) (08/11/19 4:35 AM) Blood pressure sites Arm, left (08/11/19 4:35 AM) Temperature Route Oral (08/11/19 4:35 AM) Social History Social History Type Response Smoking Status Current every day smoker; To bacco user in household: Yes entered on: 04/26/14 Sex Male
--- OUTSIDE RECORDS SUMMARY | 2022-03-03 03:36 | XMS_ITS | Continuity of Care Document ---
:1965 Author Organization [facility] Address [address] [place] [address]- Care Team Providers Name Role Phone Dk Rodriguez MD Primary Care Physician [place] [facility] [facility] [place] 11/09/19 - 11/10/[address] [address] [facility] Encounter Diagnosis Knee pain, right (Final) - 11/10/19 Discharge Disposition: A-D/C AMA Attending Physician: Fede Cook MD Admitting Physician: [...] recent to oldest [Reference Range]: 1 Weight 75.3 kg (11/09/19 10:36 PM) Oxygen Saturation [94-100 %] 97 % (11/09/19 10:36 PM) Pulse Rate [55-90 bpm] 83 bpm (11/09/19 10:36 PM) Blood Pressure [90-138/55-84 mm Hg] 123/79 mm Hg (11/09/19 10:36 PM) Respiratory Rate [16-30 br/min] 18 br/min (11/09/19 10:36 PM) Temperature [96.8-100.4 DegF] 98.2 DegF (11/09/19 10:36 PM) Mode of Delivery (Oxygen) Room air (11/09/19 10:36 PM) Blood pressure sites Arm, right (11/09/19 10:36 PM) Temperature Route Oral (11/09/19 10:36 PM) Dry Weight 75.3 kg (11/09/19 10:36 PM) Weight Obtained Via Standing scale (11/09/19 10:36 PM) Dry Weight Obtained Via Standing scale (11/09/19 10:36 PM) Social History Social History Type Response Smoking Status Current every day smoker; To bacco user in household: Yes entered on: 04/26/14 Sex Male
--- OUTSIDE RECORDS SUMMARY | 2022-03-03 03:36 | XMS_ITS | Continuity of Care Document ---
:1965 Author Organization [facility] Address [address] [place] [address]- Care Team Providers Name Role Phone Dk Rodriguez MD Primary Care Physician [place] [facility] [place]/03/[place] - 06/03/[address] [address]- Encounter Diagnosis Agitation (Final) - 06/03/20 Discharge Disposition: A-D/C Home Attending Physician: Nabeel Fisher DO Admitting Physician: Nabeel Fisher DO Referring Physician: Not on Staff, Referring MD [...] Saturation [94-100 %] 98 % 98 % (06/03/20 5:48 AM) (06/03/20 12:30 AM) Pulse Rate [55-90 bpm] 78 bpm 80 bpm (06/03/20 5:48 AM) (06/03/20 12:30 AM) Blood Pressure [90-138/55-84 mm Hg] 116/68 mm Hg 109/ 60 mm Hg (06/03/20 5:48 AM) (06/03/20 12:30 AM) Respiratory Rate [16-30 br/min] 14 br/min 20 br/mi n *L* (06/03/20 12:30 AM) (06/03/20 5:48 AM) Temperature [96.8-100.4 DegF] 97.8 DegF 98.2 DegF (06/03/20 5:48 AM) (06/03/20 12:30 AM) Mode of Delivery (Oxygen) Room air Room air (06/03/20 5:48 AM) (06/03/20 12:30 AM) Blood pressure sites Arm, left Arm, left (06/03/20 5:48 AM) (06/03/20 12:30 AM) Temperature Route Oral Oral (06/03/20 5:48 AM) (06/03/20 12:30 AM) Social History Social History Type Response Smoking Status Current every day smoker; To bacco user in household: Yes entered on: 04/26/14 Sex Male
--- OUTSIDE RECORDS SUMMARY | 2022-03-03 03:36 | XMS_ITS | Continuity of Care Document ---
:1965 Author Organization [facility] Address [address] [place] [address]- Care Team Providers Name Role Phone Dk Rodriguez MD Primary Care Physician [place] [facility] [place] - 12/15/[address] [address] [facility] Discharge Disposition: A-D/C Home Attending Physician: Sabas Umana MD Admitting Physician: Sabas Umana MD Referring Physician: Not on Staff, Referring [...] 1 Oxygen Saturation [94-100 %] 99 % (12/15/19 3:59 AM) Pulse Rate [55-90 bpm] 84 bpm (12/15/19 3:59 AM) Blood Pressure [90-138/55-84 mm Hg] 120/78 mm Hg (12/15/19 3:59 AM) Respiratory Rate [16-30 br/min] 20 br/min (12/15/19 3:59 AM) Temperature [96.8-100.4 DegF] 98.5 DegF (12/15/19 3:59 AM) Temperature Route Oral (12/15/19 3:59 AM) Social History Social History Type Response Smoking Status Current every day smoker; To bacco user in household: Yes entered on: 04/26/14 Sex Male
--- OUTSIDE RECORDS SUMMARY | 2022-03-03 03:36 | XMS_ITS | Continuity of Care Document ---
:1965 Author Organization [facility] Address [address] [place] [address]- Care Team Providers Name Role Phone Dk Rodriguez MD Primary Care Physician [place] [facility] [place] - 12/08/[address] [address]- [facility] Discharge Disposition: A-D/C Walkout Attending [...] recent to oldest [Reference Range]: 1 Weight 77.3 kg (12/08/19 1:55 AM) Oxygen Saturation [94-100 %] 98 % (12/08/19 1:55 AM) Pulse Rate [55-90 bpm] 73 bpm (12/08/19 1:55 AM) Blood Pressure [90-138/55-84 mm Hg] 124/84 mm Hg (12/08/19 1:55 AM) Respiratory Rate [16-30 br/min] 18 br/min (12/08/19 1:55 AM) Temperature [96.8-100.4 DegF] 98.0 DegF (12/08/19 1:55 AM) Mode of Delivery (Oxygen) Room air (12/08/19 1:55 AM) Blood pressure sites Arm, right (12/08/19 1:55 AM) Temperature Route Oral (12/08/19 1:55 AM) Dry Weight 77.3 kg (12/08/19 1:55 AM) Weight Obtained Via Standing scale (12/08/19 1:55 AM) Dry Weight Obtained Via Standing scale (12/08/19 1:55 AM) Social History Social History Type Response Smoking Status Current every day smoker; To bacco user in household: Yes entered on: 04/26/14 Sex Male
--- OUTSIDE RECORDS SUMMARY | 2022-03-03 03:36 | XMS_ITS | Continuity of Care Document ---
:1965 Author Organization [facility] Address [address] [place] [address]- Care Team Providers Name Role Phone Dk Rodriguez MD Primary Care Physician Encounter [facility] [place] Date(s): 08/04/19 - 08/04/[address] [address]- [facility] Encounter Diagnosis Anxiety (Final) - 08/04/19 Discharge Disposition: A-D/C Home Attending Physician: Brenna Sawant MD Admitting Physician: Brenna Sawant MD Referring Physician: Not on Staff, Referring [...] 2 Oxygen Saturation [94-100 %] 98 % 99 % (08/04/19 1:43 PM) (08/04/19 11:53 AM) Pulse Rate [55-90 bpm] 73 bpm 79 bpm (08/04/19 1:43 PM) (08/04/19 11:53 AM) Blood Pressure [90-138/55-84 mm Hg] 127/77 mm Hg 151/ 84 mm Hg (08/04/19 1:43 PM) *H* (08/04/19 11:53 AM) Respiratory Rate [16-30 br/min] 18 br/min 16 br/mi n (08/04/19 1:43 PM) (08/04/19 11:53 AM) Temperature [96.8-100.4 DegF] 97.4 DegF (08/04/19 11:53 AM) Mode of Delivery (Oxygen) Room air Room air (08/04/19 1:43 PM) (08/04/19 11:53 AM) Blood pressure sites Arm, right Arm, left (08/04/19 1:43 PM) (08/04/19 11:53 AM) Temperature Route Oral (08/04/19 11:53 AM) Social History Social History Type Response Smoking Status Current every day smoker; To bacco user in household: Yes entered on: 04/26/14 Sex Male
--- OUTSIDE RECORDS SUMMARY | 2022-03-03 03:37 | XMS_ITS | Continuity of Care Document ---
:1965 Author Organization [facility] Address [address] [place] [address]- Care Team Providers Name Role Phone Dk Rodriguez MD Primary Care Physician [place] [facility] [place]14/20 - 06/14/[address] [address]- Discharge Disposition: A-D/C Walkout Attending Physician: Not [...] recent to oldest [Reference Range]: 1 Weight 74.1 kg (06/14/20 4:21 PM) Oxygen Saturation [94-100 %] 100 % (06/14/20 4:21 PM) Pulse Rate [55-90 bpm] 65 bpm (06/14/20 4:21 PM) Blood Pressure [90-138/55-84 mm Hg] 124/80 mm Hg (06/14/20 4:21 PM) Respiratory Rate [16-30 br/min] 16 br/min (06/14/20 4:21 PM) Temperature [96.8-100.4 DegF] 98.1 DegF (06/14/20 4:21 PM) Mode of Delivery (Oxygen) Room air (06/14/20 4:21 PM) Blood pressure sites Arm, left (06/14/20 4:21 PM) Temperature Route Oral (06/14/20 4:21 PM) Weight Obtained Via Standing scale (06/14/20 4:21 PM) Social History Social History Type Response Smoking Status Current every day smoker; To bacco user in household: Yes entered on: 04/26/14 Sex Male
--- OUTSIDE RECORDS SUMMARY | 2022-03-03 03:37 | XMS_ITS | Continuity of Care Document ---
:1965 Author Organization [facility] Address [address] [place] [address]- Care Team Providers Name Role Phone Dk Rodriguez MD Primary Care Physician Encounter [facility] Date(s): 01/09/22 - 01/10/[address] [address]- Discharge Disposition: A-D/C Home Attending Physician: Jeremy [...] recent to oldest [Reference Range]: 1 2 Height 172.72 cm 172.72 cm (01/10/22 1:26 AM) (01/09/22 11:06 PM) Weight 62.6 kg 62.6 kg (01/10/22 1:26 AM) (01/09/22 11:06 PM) Oxygen Saturation [94-100 %] 97 % 98 % (01/09/22 11:06 PM) (01/09/22 11:00 PM) Pulse Rate [55-90 bpm] 78 bpm 88 bpm (01/09/22 11:06 PM) (01/09/22 11:00 PM) Body Mass Index [18.5-24.99] 20.98 (01/09/22 11:06 PM) Blood Pressure [90-138/55-84 mm Hg] 116/70 mm Hg (01/09/22 11:06 PM) Respiratory Rate [16-30 br/min] 18 br/min 18 br/mi n (01/09/22 11:06 PM) (01/09/22 11:00 PM) Temperature [96.8-100.4 DegF] 97.5 DegF (01/09/22 11:06 PM) Mode of Delivery (Oxygen) Room air Room air (01/09/22 11:06 PM) (01/09/22 11:00 PM) Blood pressure sites Arm, left (01/09/22 11:06 PM) Temperature Route Oral (01/09/22 11:06 PM) Dry Weight 62.6 kg 62.6 kg (01/10/22 1:26 AM) (01/09/22 11:06 PM) Weight Obtained Via Standing scale (01/09/22 11:06 PM) Dry Weight Obtained Via Standing scale (01/09/22 11:06 PM) Social History Social History Type Response Smoking Status Current every day smoker; To bacco user in household: Yes entered on: 04/26/14 Sex Male
--- OUTSIDE RECORDS SUMMARY | 2022-03-03 03:37 | XMS_ITS ---
:1965 Author Care Team Providers Name Role Phone DAY () OTHER [phone] Allergies Code Code System Name Reaction Severity Status Onset NKDA ? Notes: SEASONAL ALLERGIES Medications No Medications Reported Notes: medication has been reviewed-se e MAR for up to date list Problems Name Status Onset Date Source ? Hypercholesterolemia Active 08/27/2018 ? Mood Disorder Active 08/27/2018 ? Anxiety Active 08/27/2018 ? Depressive Disorder Active 08/27/2018 ? Essential Hypertension Active 08/27/2018 ? Gastroesophageal Reflux Disease without Esophagitis Active 08/27/2018 ? Recurrent Urinary Tract Infection Active 08/27/2018 ? Benign Prostatic Hyperplasia Active 08/27/2018 ? Fracture of Femur Active 08/27/2018 ? Procedures None recorded. Results Lab Results None recorded. Past Encounters None recorded. Social History Tobacco Smoking Status Heavy Tobacco Smoker (1 pack per day) Vaccine List None recorded. Plan of Care Reminders Provider Appointments None recorded. ? ? Lab None recorded. ? ? Referral None recorded. ? ? Procedures None recorded. ? ? Surgeries None recorded. ? ? Imaging None recorded. ? ? Vitals 09/05/2018 08:14AM Discharge Summary Blood Pressure 130/77 mm[Hg] 09/03/2018 03:25PM Acute Rounding Visit Blood Pressure 130/77 mm[Hg] 08/31/2018 09:46AM Admitting H&P Blood Pressure 108/67 mm[Hg] 08/27/2018 02:56PM Initial Intake Note Blood Pressure 105/59 mm[Hg]
--- OUTSIDE RECORDS SUMMARY | 2022-03-03 03:37 | XMS_ITS | Continuity of Care Document ---
:1965 Author Organization [facility] Address [address] [place] [id number] Care Team Providers Name Role Phone Dk Rodriguez MD Primary Care Physician [place] [facility] [place] - 10/12/[address] [address]- [facility] Encounter Diagnosis Schizophrenia (Final) - 10/12/19 Discharge Disposition: A-D/C Home Attending Physician: Taz [...] Vital Signs Most recent to oldest [Reference 1 2 3 Range]: Oxygen Saturation [94-100 %] 98 % 98 % 97 % (10/12/19 7:08 AM) (10/12/19 5:34 AM) (10/12/19 2:18 A M) Pulse Rate [55-90 bpm] 80 bpm 62 bpm 69 bpm (10/12/19 7:08 AM) (10/12/19 5:34 AM) (10/12/19 2:18 A M) Blood Pressure [90-138/55-84 mm 138/89 mm Hg 105/62 mm Hg 124/82 mm Hg Hg] (10/12/19 7:08 AM) (10/12/19 5:34 AM) (10/12/19 2:18 A M) Respiratory Rate [16-30 br/min] 16 br/min 19 br/min 16 br/min (10/12/19 7:08 AM) (10/12/19 5:34 AM) (10/12/19 2:18 A M) Temperature [96.8-100.4 DegF] 97.5 DegF 97.4 DegF 97 .6 DegF (10/12/19 7:08 AM) (10/12/19 5:34 AM) (10/12/19 2:18 A M) Mode of Delivery (Oxygen) Room air Room air Room a ir (10/12/19 7:08 AM) (10/12/19 5:34 AM) (10/12/19 2:18 A M) Blood pressure sites Arm, right Arm, right Arm, right (10/12/19 7:08 AM) (10/12/19 5:34 AM) (10/12/19 2:18 A M) Temperature Route Oral Oral Oral (10/12/19 7:08 AM) (10/12/19 5:34 AM) (10/12/19 2:18 A M) Social History Social History Type Response Smoking Status Current every day smoker; To bacco user in household: Yes entered on: 04/26/14 Sex Male
--- OUTSIDE RECORDS SUMMARY | 2022-03-03 03:37 | XMS_ITS | Continuity of Care Document ---
:1965 Author Organization [facility] Address [address] [place] [id number] Care Team Providers Name Role Phone Dk Rodriguez MD Primary Care Physician [place] [facility] [place](s[place] 11/24/[place] - 11/24/[address] [address]- [facility] Encounter Diagnosis Anxiety (Final) - 11/24/19 Discharge Disposition: A-D/C Home Attending Physician: Milly Mccloud MD Admitting Physician: Milly Mccloud MD Referring Physician: Not on Staff, Referring [...] 1 Oxygen Saturation [94-100 %] 97 % (11/24/19 2:46 PM) Pulse Rate [55-90 bpm] 85 bpm (11/24/19 2:46 PM) Blood Pressure [90-138/55-84 mm Hg] 117/70 mm Hg (11/24/19 2:46 PM) Respiratory Rate [16-30 br/min] 20 br/min (11/24/19 2:46 PM) Temperature [96.8-100.4 DegF] 98.1 DegF (11/24/19 2:46 PM) Mode of Delivery (Oxygen) Room air (11/24/19 2:46 PM) Temperature Route Oral (11/24/19 2:46 PM) Social History Social History Type Response Smoking Status Current every day smoker; To bacco user in household: Yes entered on: 04/26/14 Sex Male
== END 2022-03-03 05:34 | disposition left against medical advice (07) ==
PROVIDERS: Emergency Provider Emergency Medicine
DX: R33.9 Retention of urine, unspecified (principal); J02.9 Acute pharyngitis, unspecified; E78.00 Pure hypercholesterolemia, unspecified; Z87.891 Personal history of nicotine dependence
CPT/HCPCS: 36415; 80053; 85025; 87651; 99282; 99283

== ENCOUNTER 2022-03-06 02:05 | Emergency (ER) | payer MEDICARE, MEDICAID, SELFPAY ==
[2022-03-06 02:24] VITALS: BP 123/75; PULSE 90; RESP 18; TEMP 36.7; O2SAT 97; BMI 21.7
== END 2022-03-06 04:55 | disposition left against medical advice (07) ==
PROVIDERS: Emergency Provider Emergency Medicine
DX: R53.83 Other fatigue (principal)
CPT/HCPCS: 99281

== ENCOUNTER 2022-03-08 20:51 | Emergency (ER) | payer MEDICARE, MEDICAID, SELFPAY ==
[2022-03-08 21:11] VITALS: BP 133/86; PULSE 92; RESP 19; TEMP 37.2; O2SAT 96; BMI 25.0
[2022-03-08 21:30] LABS: MANUAL DIFF FLAG NO
[2022-03-08 21:36] LABS: Basophils Absolute Auto 0.1 X10*3/uL (0.0-0.2); Basophils Percent Auto 1.2 % (0-2); Eosinophils Absolute Auto 0.1 X10*3/uL (0.0-0.4); Eosinophils Percent Auto 2.2 % (0-4); Hematocrit 36.8 % (42.0-52.0); Imm Gran Abs Auto 0.02 X10*3/uL (0.00-0.03); Imm Gran Pct Auto 0.3 % (0.0-0.4); Lymphocytes Absolute Auto 1.6 X10*3/uL (1.2-4.9); Lymphocytes Percent Auto 25.4 % (20-40); Mean Corpuscular HGB Conc 35.3 g/dl (31.0-36.0); Mean Corpuscular Hemoglobin 32.7 pg (27.0-33.0); Mean Corpuscular Volume 92.7 fL (80.0-98.0); Mean Platelet Volume 8.5 fL (9.4-12.4); Monocytes Absolute Auto 0.7 X10*3/uL (0.1-1.2); Monocytes Percent Auto 10.1 % (2-11); Neutrophils Absolute Auto 3.9 x10*3/uL (2.0-8.3); Neutrophils Percent Auto 60.8 % (45-73); Platelet Count 197 X10*3/uL (160-400); Red Blood Count 3.97 X10*6/uL (4.60-5.80); Red Cell Distribution Width 12.3 % (11.0-16.0); White Blood Count 6.4 X10*3/uL (4.8-10.8)
[2022-03-08 21:53] LABS: Alanine Aminotransferase 14 U/L (0-40); Alkaline Phosphatase 77 U/L (39-117); Anion Gap 14 (12-20); Aspartate Amino Transferase 20 U/L (5-37); Bilirubin Total 0.2 mg/dL (0.0-1.0); Blood Urea Nitrogen 12 mg/dL (9-16); Calcium 8.8 mg/dL (8.4-10.2); Carbon Dioxide 27 mmol/L (22-29); Chloride 96 mmol/L (96-108); Creatinine Clr Calc Pharmacy 117.3; Estimated Glomerular Filt Rate > 60; Ethanol < 10 mg/dL; Glucose Random 89 mg/dL (60-115); Potassium 4.4 mmol/L (3.3-5.1); Sodium 133 mmol/L (135-145); Total Protein 6.4 g/dL (6.5-8.0)
[2022-03-08 22:01] LABS: Amphetamine Screen Urine Not Detected (Not Detect); Barbiturates, Urine Not Detected (Not Detect); Benzodiazepines Screen Urine Not Detected (Not Detect); Cannabinoid Screen Urine Not Detected (Not Detect); Cocaine Screen Urine Not Detected (Not Detect); Fentanyl, urine Not Detected (Not Detect); Opiate Screen Urine Not Detected (Not Detect); Phencyclidine Screen Urine Not Detected (Not Detect)
== END 2022-03-09 01:40 | disposition left against medical advice (07) ==
PROVIDERS: Emergency Provider Emergency Medicine
DX: R10.9 Unspecified abdominal pain (principal); K59.00 Constipation, unspecified; Z79.899 Other long term (current) drug therapy
CPT/HCPCS: 80053; 80307; 82077; 85025; 99281; 99283

== ENCOUNTER 2022-03-13 20:52 | Emergency (ER) | payer MEDICARE, MEDICAID, SELFPAY ==
[2022-03-13 21:34] VITALS: BP 145/76; PULSE 95; RESP 16; TEMP 36.8; O2SAT 96; BMI 21.2
== END 2022-03-14 01:45 | disposition left against medical advice (07) ==
PROVIDERS: Emergency Provider Emergency Medicine; PCP Internal Medicine
DX: R33.9 Retention of urine, unspecified (principal); N40.1 Benign prostatic hyperplasia with lower urinary tract symptoms; K59.00 Constipation, unspecified; E78.00 Pure hypercholesterolemia, unspecified; F17.210 Nicotine dependence, cigarettes, uncomplicated
CPT/HCPCS: 99281

== ENCOUNTER 2022-03-19 20:55 | Emergency (ER) | payer MEDICARE, MEDICAID, SELFPAY ==
[2022-03-19 21:21] VITALS: BP 118/64; PULSE 98; RESP 18; TEMP 36.7; O2SAT 100; BMI 20.9
--- NOTE | 2022-03-19 21:25 | PC.NURSE ---
Pt voided approximately 100ml of clear urine for sample
[2022-03-19 21:32] LABS: Appearance Urine Clear; Color Urine Yellow; Glucose Urine UA Negative (Negative); Leukocyte Esterase Urine Negative (Negative); Nitrite Urine Negative (Negative); Urine Blood Negative (Negative); Urine Ketones Negative (Negative); Urine Protein Negative (Neg-Trace)
== END 2022-03-20 00:02 | disposition left against medical advice (07) ==
PROVIDERS: Emergency Provider Emergency Medicine; PCP Internal Medicine
DX: N40.0 Benign prostatic hyperplasia without lower urinary tract symptoms (principal); N31.9 Neuromuscular dysfunction of bladder, unspecified; E78.00 Pure hypercholesterolemia, unspecified; F25.0 Schizoaffective disorder, bipolar type
CPT/HCPCS: 81003; 99282

== ENCOUNTER 2022-03-23 23:40 | Emergency (ER) | payer MEDICARE, MEDICAID, SELFPAY ==
[2022-03-24 00:42] VITALS: BP 140/86; PULSE 79; RESP 18; TEMP 36.3; O2SAT 98; BMI 21.2
--- NOTE | 2022-03-24 00:58 | ED_ITS ---
HPI - General Adult General Chief complaint: General Medical Stated complaint: seeking help from current living Time Seen by Provider: 03/24/22 00:53 Source: patient Mode of arrival: ambulatory Limitations: no limitations History of Present Illness HPI narrative: Patient comes to the emergency room complaining that he does not like his current living situation at his [facility]. Patient states that people do not listen to him, states that he is on a lot of medications that he cannot handle the fights of the other residents at the [facility]. Related Data Home Medications Medication Instructions Recorded Confirmed aripiprazole 20 mg tablet 1 tab PO QAM 05/26/21 02/18/22 bethanechol chloride 50 mg tablet 1 tab PO TID 05/26/21 02/18/22 carbamazepine 200 mg tablet 500 mg PO BID 05/26/21 02/18/22 clonazepam 0.5 mg tablet 1 tab PO DAILY 05/26/21 02/18/22 hydroxyzine HCl 10 mg tablet 1 tab PO TID PRN Anxiety 05/26/21 02/18/22 tamsulosin 0.4 mg capsule 1 cap PO BEDTIME 05/26/21 02/18/22 trazodone 50 mg tablet 1 tab PO BEDTIME PRN insomnia 05/26/21 02/18/22 bethanechol chloride 50 mg tablet 50 mg PO TID 02/18/22 02/18/22 loratadine 10 mg tablet (Allergy 10 mg PO DAILY 02/18/22 02/18/22 Relief (loratadine)) olanzapine 10 mg tablet 10 mg PO BEDTIME 02/18/22 02/18/22 quetiapine 25 mg tablet mg PO 02/18/22 02/18/22 sennosides 8.6 mg tablet (senna) 8.6 mg PO BEDTIME 02/18/22 02/18/22 Previous Rx's Medication Instructions Recorded atorvastatin 10 mg tablet 10 mg PO DAILY 30 days #30 tabs 12/08/21 clotrimazole 1 % topical cream 1 appl topical BID 2 weeks #15 12/30/21 (Lotrimin AF (clotrimazole)) grams tamsulosin 0.4 mg capsule (Flomax) 0.4 mg PO BEDTIME #30 caps 01/29/22 omeprazole 40 mg capsule,delayed 40 mg PO DAILY 30 days #30 caps 01/31/22 release multivitamin-iron 9 mg-folic acid 1 tab PO DAILY #30 tabs 03/04/22 400 mcg-calcium and minerals tablet (High Potency Multivitamin (w-iron)) Allergies Allergy/AdvReac Type Severity Reaction Status Date / Time No Known Allergies Allergy Unknown UNKNOWN Verified 03/08/22 21:14 [NO KNOWN ALLERGIES] Review of Systems Review of Systems: Constitutional : No Weight loss, No Fever, No Chills, No Night Sweats, No Fatigue, No Malaise ENT/Mouth : No Hearing loss, No Ear Pain, No Nasal Congestion, No Sinus Pain, No Hoarseness, No sore throat, No Rhinorrhea, No Swallowing Difficulty Eyes: No Eye Pain, No Swelling, No Redness, No Foreign Body, No Discharge, No Vision Changes Cardiovascular : No Chest Pain, No SOB, No Dyspnea on Exertion, No Orthopnea, No Edema, No Palpitations Respiratory : No Cough, No Sputum, No Wheezing, No Smoke Exposure, No Dyspnea Gastrointestinal : No Nausea, No Vomiting, No Diarrhea, No Constipation, No abdominal Pain, No Hematochezia, No Melena Genitourinary : no irregular bleeding, No Dysuria, No Urinary Frequency, No Hematuria, No Urinary Incontinence, No Urgency, No Flank Pain, No Urinary Flow Changes, No Hesitancy Musculoskeletal : No joint pain, No Myalgias, No Joint Swelling Skin : No Skin Lesions, No rash Neuro : No Weakness, No Numbness, No Paresthesias, No Loss of Consciousness, No Dizziness, No Headache Psych : No Anxiety/Panic, No Depression, No SI/HI/AH/VH, No Social Issues, Heme/Lymph: No Bruising, No Bleeding,No Lymphadenopathy Endocrine : No Polyuria, No Polydipsia, No Temperature Intolerance [facility] Past Medical History Medical History Anxiety Back pain Benign prostatic hyperplasia with lower urinary tract symptoms Bipolar 1 disorder Constipation Mood disorder Personal history of nicotine dependence Pure hypercholesterolemia Schizoaffective disorder, bipolar type Thought disorder Tubular adenoma of colon (~2018) Surgical History History of colonoscopy (~04/2019) History of open reduction and internal fixation (ORIF) procedure (~08/2018) History of prostate surgery (~04/2019) Family History Family History Father Lung cancer BPH (benign prostatic hyperplasia) Mother Dementia Brother Myocardial infarction Other Mental health problem Substance abuse Social History Social History Household Members: None Housing: Assisted Living Facility Housing Other:: [facility] Do you presently have visiting nurse or other home services: No Alcohol intake: never Patient Tobacco Use Status: Current everyday Tobacco user Tobacco use type: Cigarette Cigarette Packs Per Day: 1 Cigarettes Per Day: 20.0 Years Smoked: 10 e-Cigarette/Vaping Use: Never Used Second Hand Smoke Exposure: Yes Advance Directives: No service: No Current occupational status: employed Current occupation: [employer] Sexual orientation: Decline to Answer Cognitive needs: No Hearing needs: No Vision needs: Yes Physical Exam ED Vital Signs: Vital Signs - 24 hr 03/24/22 00:42 Temperature 97.3 F Pulse Rate 79 Respiratory Rate 18 Blood Pressure 140/86 H Pulse Oximetry 98 Oxygen Delivery Method Room Air BMI result Body Mass Index 21.2 Const Other: Appearance: Alert. Oriented X3. No acute distress. Eyes: Pupils equal, round and reactive to light. ENT: Pharynx normal. Neck: Normal inspection. Neck supple. No lymph nodes noted. No crepitus CVS: Normal heart rate and rhythm. Pulses normal. Normal S1 and S2 Respiratory: No respiratory distress. Breath sounds normal. No Wheezing. No rales Abdomen: Soft and nontender. No rigidity. No distention. Skin: Skin warm and dry. Normal skin color. Normal skin turgor. Extremities: No lower extremity edema. No Lacerations. No Rash Neuro: Oriented X 3. No motor deficit. No sensory deficit. Moving all extremities. No slurred speech. CN 2 through 12 grossly intact Psych: calm, cooperative, normal affect Course Course Course Narrative: Patient denies suicidal or homicidal ideation. Patient is feels angry and disappointed with his living situation. Patient has been coming to the emergency room multiple times for the same issue. Patient has no medical issues at this time. Discharge Plan Discharge Clinical Impression: Problem situation relating to social and personal history Patient Disposition: Home, Self-Care Additional Instructions: Please follow-up with your primary care physician tomorrow. If you have any worsening or new symptoms, please return to the emergency room or call 911 Prescriptions: No Action atorvastatin 10 mg tablet 10 mg PO DAILY 30 Days Qty: 30 3RF omeprazole 40 mg capsule,delayed release(DR/EC) 40 mg PO DAILY 30 Days Qty: 30 2RF High Potency Multivit (w-iron) 9 mg iron-400 mcg tablet 1 tab PO DAILY Qty: 30 12RF carbamazepine 200 mg tablet 500 mg PO BID bethanechol chloride 50 mg tablet 1 tab PO TID aripiprazole 20 mg tablet 1 tab PO QAM clonazepam 0.5 mg tablet 1 tab PO DAILY hydroxyzine HCl 10 mg tablet 1 tab PO TID PRN (Reason: Anxiety) trazodone 50 mg tablet 1 tab PO BEDTIME PRN (Reason: insomnia) tamsulosin 0.4 mg capsule 1 cap PO BEDTIME tamsulosin [Flomax] 0.4 mg capsule 0.4 mg PO BEDTIME Qty: 30 0RF olanzapine 10 mg tablet 10 mg PO BEDTIME quetiapine 25 mg tablet PO sennosides [senna] 8.6 mg tablet 8.6 mg PO BEDTIME loratadine [Allergy Relief (loratadine)] 10 mg tablet 10 mg PO DAILY bethanechol chloride 50 mg tablet 50 mg PO TID clotrimazole [Lotrimin AF (clotrimazole)] 1 % cream 1 appl topical BID 14 Days Qty: 15 0RF
--- NOTE | 2022-03-24 01:11 | PC.NURSE ---
pt a&o, no sob or chest pain, provider into assess pt. Reviewed discharge instructions with pt. pt verbalized understanding.
== END 2022-03-24 01:14 | disposition home or self-care (01) ==
PROVIDERS: Emergency Provider Emergency Medicine; PCP Internal Medicine
DX: Z03.89 Encounter for observation for other suspected diseases and conditions ruled out (principal); Z79.899 Other long term (current) drug therapy
CPT/HCPCS: 99282

== ENCOUNTER 2022-03-30 21:34 | Emergency (ER) | payer MEDICARE, MEDICAID, SELFPAY ==
[2022-03-30 22:01] VITALS: BP 115/77; PULSE 85; RESP 16; TEMP 36.8; O2SAT 100; BMI 22.8
== END 2022-03-30 23:52 | disposition left against medical advice (07) ==
LOC: HO.ED 23:52
PROVIDERS: Emergency Provider Emergency Medicine
DX: R33.9 Retention of urine, unspecified (principal); N40.1 Benign prostatic hyperplasia with lower urinary tract symptoms; N31.9 Neuromuscular dysfunction of bladder, unspecified; E78.00 Pure hypercholesterolemia, unspecified
CPT/HCPCS: 99281

== ENCOUNTER 2022-04-06 21:39 | Emergency (ER) | payer MEDICARE, MEDICAID, SELFPAY | END 2022-04-06 23:04 | disposition left against medical advice (07) | PROVIDERS: Emergency Provider Emergency Medicine | DX: F39 Unspecified mood [affective] disorder (principal) ==

== ENCOUNTER 2022-04-10 01:39 | Emergency (ER) | payer MEDICARE, MEDICAID, SELFPAY ==
[2022-04-10 01:36] VITALS: BP 111/72; PULSE 88; RESP 16; TEMP 36.9; O2SAT 99; BMI 20.9
== END 2022-04-10 04:06 | disposition left against medical advice (07) ==
PROVIDERS: Emergency Provider Emergency Medicine; PCP Internal Medicine
DX: R33.9 Retention of urine, unspecified (principal)
CPT/HCPCS: 99281

== ENCOUNTER 2022-04-20 22:07 | Emergency (ER) | payer MEDICARE, MEDICAID, SELFPAY ==
--- NOTE | ~2022-04-20 | CT_ITS ---
EXAMINATION: CT ABDOMEN AND PELVIS WITHOUT CONTRAST CLINICAL INFORMATION: bladder distention uti sx ro obstructing uropathy COMPARISON: 03/29/2021 TECHNIQUE: Multidetector volumetric imaging was performed from the superior aspect of the liver through the pubic symphysis. Sagittal and coronal reformatted images were obtained on the technologist's workstation. This CT examination was performed using dose optimization techniques as appropriate, variously including the following: *Automated exposure control *Adjustment of mA and/or kV according to patient size (this includes techniques or standardized protocols for targeted exams where dose is matched to indication/reason for exam; i.e. extremities or head) *Use of iterative reconstruction technique DLP: 404 mGy-cm FINDINGS: LUNG BASES: The visualized lung bases are unremarkable. LIVER, GALLBLADDER, AND BILIARY TREE: The liver is normal in size, shape, and attenuation. No focal hepatic lesion or biliary ductal dilatation is present. The gallbladder is unremarkable with no evidence of radiopaque gallstones, gallbladder wall thickening, or obvious pericholecystic inflammatory changes. PANCREAS: Unremarkable. SPLEEN: A punctate calcification is again seen in the head of the pancreas. Pancreas there is otherwise normal. ADRENAL GLANDS: Unremarkable. KIDNEYS AND URETERS: A single punctate 1 mm calculus is evident in the interpolar region of both kidneys. No large renal calculi are identified. Kidneys normal in size and contour without appreciable focal lesions. No perinephric fat stranding. No appreciable ureteral calculi are identified. BLADDER: Distended and thick-walled with trabeculation. No appreciable bladder calculi. GASTROINTESTINAL TRACT: Stomach, small bowel, and colon are normal in caliber. No bowel wall thickening or surrounding inflammatory changes. Appendix is normal. No intraperitoneal free fluid or free air. Moderate volume of stool throughout the colon. ABDOMINAL WALL: No significant hernia is appreciated. LYMPH NODES: Normal. VASCULAR: Atherosclerotic calcifications are present in the abdominal aorta. No aneurysmal dilatation. PELVIC VISCERA: Prostate gland is enlarged, measuring 5.2 cm transverse with dystrophic central calcifications. Central defect in the prostate near the base of the bladder may be due to prior TURP. OSSEOUS STRUCTURES: Moderate multilevel degenerative disc disease and facet arthropathy in the lumbar spine. Mild osteoarthritis at the hips. CT/CT abdomen pelvis wo IV con IMPRESSION: 1. A single punctate 1 mm nonobstructing renal calculi. No evidence of obstructive uropathy. 2. Distended, thick-walled bladder with trabeculation, likely due to chronic bladder outlet obstruction. Prostatomegaly. Recommend urinalysis to exclude cystitis. 3. Moderate volume of stool throughout the colon. Fleischner guidelines were followed.
[2022-04-20 22:10] VITALS: BP 146/88; PULSE 90; RESP 20; TEMP 36.4; O2SAT 97; BMI 27.3
[2022-04-20 22:31] LABS: Appearance Urine Clear; Color Urine Yellow; Glucose Urine UA Negative (Negative); Leukocyte Esterase Urine Large (3+) (Negative); Nitrite Urine Positive (Negative); PH 7.5 (5.0-9.0); UMIC TRIGGER UACC YES; Urine Blood Trace (Negative); Urine Ketones Negative (Negative); Urine Protein Negative (Neg-Trace)
--- NOTE | 2022-04-20 22:36 | ED_ITS ---
HPI - Male Genitourinary General Chief complaint: Urogenital-Male Stated complaint: Bladder infection Time Seen by Provider: 04/20/22 22:34 Source: patient Mode of arrival: ambulatory Limitations: no limitations History of Present Illness HPI Narrative: 56-year-old male history of anxiety, bipolar disorder type 1, schizoaffective disorder, tubular adenoma of the colon presents to the emergency department with complaints of? inability to void x7 months. Patient reports that his private parts are working, he reports he can not get an orgasm and he is unable to sustain an erection. Patient tells me he self catheterizes however not a lot is coming out. Patient tells me he feels like his abdomen is distended. He reports he feels like he has a urinary tract infection. Denies back pain, saddle paresthesias, numbness, tingling, difficulties with ambulation, weakness, fevers, chills, nausea, vomiting, chest pain, shortness of breath, testicular pain, penile discharge, concerns for STI Related Data Home Medications Medication Instructions Recorded Confirmed aripiprazole 20 mg tablet 1 tab PO QAM 05/26/21 02/18/22 bethanechol chloride 50 mg tablet 1 tab PO TID 05/26/21 02/18/22 carbamazepine 200 mg tablet 500 mg PO BID 05/26/21 02/18/22 clonazepam 0.5 mg tablet 1 tab PO DAILY 05/26/21 02/18/22 hydroxyzine HCl 10 mg tablet 1 tab PO TID PRN Anxiety 05/26/21 02/18/22 tamsulosin 0.4 mg capsule 1 cap PO BEDTIME 05/26/21 02/18/22 trazodone 50 mg tablet 1 tab PO BEDTIME PRN insomnia 05/26/21 02/18/22 bethanechol chloride 50 mg tablet 50 mg PO TID 02/18/22 02/18/22 loratadine 10 mg tablet (Allergy 10 mg PO DAILY 02/18/22 02/18/22 Relief (loratadine)) olanzapine 10 mg tablet 10 mg PO BEDTIME 02/18/22 02/18/22 quetiapine 25 mg tablet mg PO 02/18/22 02/18/22 Previous Rx's Medication Instructions Recorded clotrimazole 1 % topical cream 1 appl topical BID 2 weeks #15 07/28/22 (Lotrimin AF (clotrimazole)) grams tamsulosin 0.4 mg capsule (Flomax) 0.4 mg PO BEDTIME #30 caps 01/29/22 omeprazole 40 mg capsule,delayed 40 mg PO DAILY 30 days #30 caps 01/31/22 release multivitamin-iron 9 mg-folic acid 1 tab PO DAILY #30 tabs 03/04/22 400 mcg-calcium and minerals tablet (High Potency Multivitamin (w-iron)) sennosides 8.6 mg tablet (senna) 8.6 mg PO BEDTIME #90 tabs 03/24/22 atorvastatin 10 mg tablet 10 mg PO DAILY 30 days #30 tabs 04/18/22 cefuroxime axetil 250 mg tablet 250 mg PO BID 7 days #14 tabs 04/21/22 docusate sodium 100 mg capsule 100 mg PO BID #20 caps 04/21/22 (Colace) polyethylene glycol 3350 17 17 g PO BID PRN constipation #238 04/21/22 gram/dose oral powder (Miralax) grams sennosides 8.6 mg tablet (senna) 8.6 mg PO BEDTIME #14 tabs 04/21/22 Allergies Allergy/AdvReac Type Severity Reaction Status Date / Time No Known Allergies Allergy Unknown UNKNOWN Verified 04/20/22 22:12 [NO KNOWN ALLERGIES] Review of Systems Review of Systems: Constitutional : No Weight loss, No Fever, No Chills, No Fatigue, No Malaise ENT/Mouth : No sore throat, No Rhinorrhea Eyes: No Eye Pain, No Swelling, No Redness Cardiovascular : No Chest Pain, No SOB, No Dyspnea on Exertion, No Orthopnea, No Edema, No Palpitations Respiratory : No Cough, No Sputum, No Wheezing Gastrointestinal : No Nausea, No Vomiting, No Diarrhea, No Constipation, No abdominal Pain, No Hematochezia, No Melena Genitourinary : No Dysuria, No Urinary Frequency, No Hematuria, + urinary hesitancy Musculoskeletal : No joint pain, No Myalgias, No Joint Swelling Skin : No Skin Lesions, No rash Neuro : No Weakness, No Numbness, No Dizziness, No Headache Psych : No Anxiety/Panic, No Depression All other systems reviewed and are negative Yes all other systems are reviewed and are negative PMFSH Past Medical History Attestation statement: The following information was validated with the patient. Source: old records reviewed and nursing notes reviewed Medical History Anxiety Back pain Benign prostatic hyperplasia with lower urinary tract symptoms Bipolar 1 disorder Constipation Mood disorder Personal history of nicotine dependence Pure hypercholesterolemia Schizoaffective disorder, bipolar type Thought disorder Tubular adenoma of colon (~2018) Surgical History History of colonoscopy (~04/2019) History of open reduction and internal fixation (ORIF) procedure (~08/2018) History of prostate surgery (~04/2019) Family History Family History Father Lung cancer BPH (benign prostatic hyperplasia) Mother Dementia Brother Myocardial infarction Other Mental health problem Substance abuse Social History Social History Household Members: None Housing: Assisted Living Facility Housing Other:: detention Do you presently have visiting nurse or other home services: No Alcohol intake: never Patient Tobacco Use Status: Current everyday Tobacco user Tobacco use type: Cigarette Cigarette Packs Per Day: 1 Cigarettes Per Day: 20.0 Years Smoked: 10 Smoked in Last 30 Days: Yes e-Cigarette/Vaping Use: Never Used Second Hand Smoke Exposure: Yes Advance Directives: No service: No Current occupational status: employed Current occupation: [employer] Sexual orientation: Decline to Answer Cognitive needs: No Hearing needs: No Vision needs: Yes Physical Exam Vital Signs: Vital Signs: Last Vital Signs Temp 97.4 F 04/20/22 23:57 Pulse 76 04/20/22 23:57 Resp 18 04/20/22 23:57 BP 117/81 04/20/22 23:57 Pulse Ox 97 04/20/22 23:57 O2 Del Method 04/20/22 23:57 BMI result Body Mass Index 27.3 vss Appearance: Alert.? Oriented X3.? No acute distress.? Head: Normocephalic, atraumatic, no step-offs or deformities Eyes: Pupils equal, round and reactive to light.? Neck: Normal inspection.? Neck supple.? CVS: Normal heart rate and rhythm.? Pulses normal.? Respiratory: No respiratory distress.? Breath sounds normal.? Abdomen: Soft and nontender.? Skin: Skin warm and dry.? Normal skin color.? Normal skin turgor.? Extremities: 5/5 strength to bilateral upper and lower extremities Back: No midline tenderness, no C-spine tenderness, full range of motion, no CVA tenderness bilaterally Neuro: Oriented X 3.? No motor deficit.? No sensory deficit. CN 2-12 intact Course Reevaluation(s) Reevaluation #1: Patient noted to have urinary tract infection. Will obtain basic labs, blood cultures, lactic. Will initiate ceftriaxone. Time: 22:51 Reevaluation #2: CBC hemolyzed. Chemistry with no acute electrolyte abnormalities requiring intervention. Lactic acid negative. CT of the abdomen and pelvis showing 1 mm nonobstructing renal colic , CT showing a distended and thickened bladder wall with trabeculation, again patient with UTI, consistent findings, antibiotics ordered. Patient will be discharged with p.o. antibiotics. Patient also with moderate volume of stool throughout the colon however no signs of obstruction. Will discharge him home on stool softeners he does mention he slightly constipated. Time: 01:01 Reevaluation #3: Patient's bladder scan 794, patient reporting difficulty with voiding Santos catheter will be placed at this time. To note, patient does have a history of chronic urinary retention thus this is acute on chronic urinary retention, will advised him to follow-up with urology told him to call tomorrow and make an appointment, outlined this on his discharge. Patient also with acute UTI a be discharged on antibiotics. Pending CBC. Time: 01:08 Additional Reevaluation(s): CBC with no acute findings. At this time patient will be discharged home advised to return with new or worsening symptoms, educated on worrisome signs and symptoms and when to return. Advised to follow-up with urology. Comfortable discharge home with prompt PCP and urology follow-up. Medications Administered Discontinued Medications Generic Name Dose Route Start Last Admin Trade Name Freq PRN Reason Stop Dose Admin Ceftriaxone Sodium 1 gm/ 50 mls @ 100 mls/hr 04/20/22 22:50 04/20/22 23:56 Sodium Chloride IV 04/20/22 23:19 Infused ONCE ONE Infusion MDM - Male Genitourinary MDM Narrative Medical decision making narrative: 2237 56-year-old male presents with complaints of urinary hesitancy,, difficulty voiding, inability to sustain an erection or orgasm. PE benign Concerns for UTI versus cystitis versus urinary retention. Patient tells me he is not concerned for STDs, not like STD testing. Unlikely prostatitis, epididymitis, no testicular pain unlikely torsion. No CVA tenderness on likely pyelo. No signs of acute abdomen. Patient appears well, nontoxic. At this time is UA, CT abd and pelvis. Medical Records Attestation: I reviewed the patient's medical records. Lab Data Attestation: I reviewed the patient's lab results. Result diagrams: 04/21/22 01:11 Labs: Lab Results 04/20/22 04/20/22 04/21/22 Range/Units 22:22 23:34 01:11 WBC 7.2 (4.8-10.8) X10*3/uL RBC 3.96 L (4.60-5.80) X10*6/uL Hgb 12.9 L (14.0-18.0) g/dl Hct 36.0 L (42.0-52.0) % MCV 90.9 (80.0-98.0) fL MCH 32.6 (27.0-33.0) pg MCHC 35.8 (31.0-36.0) g/dl RDW 12.2 (11.0-16.0) % Plt Count 202 (160-400) X10*3/uL MPV 8.6 L (9.4-12.4) fL Immature Gran % (Auto) 0.3 (0.0-0.4) % Neut % (Auto) 58.0 (45-73) % Lymph % (Auto) 26.5 (20-40) % [place] % (Auto) 12.5 H (2-11) % Eos % (Auto) 1.9 (0-4) % Baso % (Auto) 0.8 (0-2) % Lymph # (Auto) 1.9 (1.2-4.9) X10*3/uL [place] # (Auto) 0.9 (0.1-1.2) X10*3/uL Eos # (Auto) 0.1 (0.0-0.4) X10*3/uL Baso # (Auto) 0.1 (0.0-0.2) X10*3/uL Abs Immat Gran (auto) 0.02 (0.00-0.03) X10*3/uL Absolute Neuts (auto) 4.2 (2.0-8.3) x10*3/uL Absolute Nucleated RBC 0.000 (0.0-0.012) X10*3/uL Nucleated RBC % (auto) 0.0 (0.0-0.2) /100WBC Lactic Acid 0.6 (0.5-2.0) mmol/L Urine Color Yellow Urine Appearance Clear Urine pH 7.5 (5.0-9.0) Ur Specific [place] 1.010 (1.005-1.025) Urine Protein Negative (Neg-Trace) mg/dL Urine Glucose (UA) Negative (Negative) mg/dL Urine Ketones Negative (Negative) mg/dL Urine Blood Trace H (Negative) Urine Nitrite Positive H (Negative) Ur Leukocyte Esterase Large (3+) H (Negative) Urine RBC 3-5 H (0-2) /HPF Urine WBC >50 H (0-5) /HPF Ur Squamous Epith Cells 0-2 (0-2) /HPF Urine Bacteria 4+ (None Seen) Hyaline Casts 0-2 (0-2) /LPF Critical Care Time Critical Care Time Critical Care Time: No Discharge Plan Discharge Clinical Impression: UTI (urinary tract infection), Constipation, Acute on chronic urinary retention Patient Disposition: Home, Self-Care Instructions: Constipation (ED), Urinary Retention in Men (ED), Urinary Tract Infection in Men (ED) Additional Instructions: Take your medications as prescribed. If you were prescribed antibiotics today, it is important that you take your medication to their entirety, do not skip any doses, do not finish them early. Follow-up with your primary care provider this week. Please follow-up with urology information below call them tomorrow. Return to the emergency department with new or worsening symptoms. Such as fevers, chills, chest pain, shortness of breath, nausea, vomiting, dizziness, headache, vision changes, lethargy In case of emergency call 911 Prescriptions: New sennosides [senna] 8.6 mg tablet 8.6 mg PO BEDTIME Qty: 14 0RF cefuroxime axetil 250 mg tablet 250 mg PO BID 7 Days Qty: 14 0RF docusate sodium [Colace] 100 mg capsule 100 mg PO BID Qty: 20 0RF polyethylene glycol 3350 [Miralax] 17 gram/dose powder 17 g PO BID PRN (Reason: constipation) Qty: 238 0RF No Action omeprazole 40 mg capsule,delayed release(DR/EC) 40 mg PO DAILY 30 Days Qty: 30 2RF High Potency Multivit (w-iron) 9 mg iron-400 mcg tablet 1 tab PO DAILY Qty: 30 12RF sennosides [senna] 8.6 mg tablet 8.6 mg PO BEDTIME Qty: 90 0RF atorvastatin 10 mg tablet 10 mg PO DAILY 30 Days Qty: 30 3RF carbamazepine 200 mg tablet 500 mg PO BID bethanechol chloride 50 mg tablet 1 tab PO TID aripiprazole 20 mg tablet 1 tab PO QAM clonazepam 0.5 mg tablet 1 tab PO DAILY hydroxyzine HCl 10 mg tablet 1 tab PO TID PRN (Reason: Anxiety) trazodone 50 mg tablet 1 tab PO BEDTIME PRN (Reason: insomnia) tamsulosin 0.4 mg capsule 1 cap PO BEDTIME tamsulosin [Flomax] 0.4 mg capsule 0.4 mg PO BEDTIME Qty: 30 0RF olanzapine 10 mg tablet 10 mg PO BEDTIME quetiapine 25 mg tablet PO loratadine [Allergy Relief (loratadine)] 10 mg tablet 10 mg PO DAILY bethanechol chloride 50 mg tablet 50 mg PO TID clotrimazole [Lotrimin AF (clotrimazole)] 1 % cream 1 appl topical BID 14 Days Qty: 15 0RF Referrals: [facility] [place]Provider Group] - 1 day Physician,None [Primary Care Provider] - 2 days Stand Alone Forms: Work/School Release
[2022-04-20 22:52] LABS: Bacteria Urine 4+ (None Seen); Hyaline Casts Urine 0-2 /LPF (0-2); Squamous Epithelial Cell Urine 0-2 /HPF (0-2); UACC Culture Trigger YES; WBC Urine >50 /HPF (0-5)
[2022-04-20] MEDS: cefTRIAXone sodium 1 GM in 0.9 % Sodium Chloride 50 ML IV (23:24)
[2022-04-20 23:52] LABS: Lactic Acid 0.6 mmol/L (0.5-2.0)
[2022-04-20 23:57] VITALS: BP 117/81; PULSE 76; RESP 18; TEMP 36.3; O2SAT 97
--- NOTE | 2022-04-20 23:57 | PC.NURSE ---
20 g IV line inserted in R forearm, patient tolerated procedure well. Ceftriaxone IV infused per AUG.
[2022-04-21 01:17] LABS: Basophils Absolute Auto 0.1 X10*3/uL (0.0-0.2); Basophils Percent Auto 0.8 % (0-2); Eosinophils Absolute Auto 0.1 X10*3/uL (0.0-0.4); Eosinophils Percent Auto 1.9 % (0-4); Hemoglobin 12.9 g/dl (14.0-18.0); Imm Gran Abs Auto 0.02 X10*3/uL (0.00-0.03); Imm Gran Pct Auto 0.3 % (0.0-0.4); Lymphocytes Absolute Auto 1.9 X10*3/uL (1.2-4.9); Lymphocytes Percent Auto 26.5 % (20-40); MANUAL DIFF FLAG NO; Mean Corpuscular HGB Conc 35.8 g/dl (31.0-36.0); Mean Corpuscular Hemoglobin 32.6 pg (27.0-33.0); Mean Corpuscular Volume 90.9 fL (80.0-98.0); Mean Platelet Volume 8.6 fL (9.4-12.4); Monocytes Absolute Auto 0.9 X10*3/uL (0.1-1.2); Monocytes Percent Auto 12.5 % (2-11); Neutrophils Absolute Auto 4.2 x10*3/uL (2.0-8.3); Platelet Count 202 X10*3/uL (160-400); Red Blood Count 3.96 X10*6/uL (4.60-5.80); Red Cell Distribution Width 12.2 % (11.0-16.0); White Blood Count 7.2 X10*3/uL (4.8-10.8)
[2022-04-21 01:31] LABS: COVID-19 Test Negative (Negative); IDNOW Serial# BCCEAD1C
[2022-04-21 02:06] VITALS: BP 121/72; PULSE 79; RESP 16; TEMP 36.6; O2SAT 99
--- NOTE | 2022-04-21 02:07 | PC.NURSE ---
Verbal order received from Cesario to insert F/C 16 Fr with 10 ML balloon inflation. F/C inserted using a sterile technique, patient tolerated procedure well-270 mL f yellow, cloudy urine in a new leg bag noted. Patient instructed to f/u with his PCP and urologist, he instructed in F/C care-patient verbalized undertanding.
== END 2022-04-21 02:12 | disposition home or self-care (01) ==
PROVIDERS: Physician Assistant; Emergency Provider Internal Medicine
DX: N39.0 Urinary tract infection, site not specified (principal); B96.1 Klebsiella pneumoniae [K. pneumoniae] as the cause of diseases classified elsewhere; K59.00 Constipation, unspecified; R33.9 Retention of urine, unspecified; Z20.822 Contact with and (suspected) exposure to COVID-19; F25.0 Schizoaffective disorder, bipolar type; E78.00 Pure hypercholesterolemia, unspecified; Z79.02 Long term (current) use of antithrombotics/antiplatelets; Z79.899 Other long term (current) drug therapy
CPT/HCPCS: 51702; 51798; 74176; 81001; 83605; 85025; 87040; 87086; 87088; 87186; 87635; 96365; 99284; J0696

== ENCOUNTER 2022-04-25 19:19 | Emergency (ER) | payer MEDICARE, MEDICAID, SELFPAY ==
[2022-04-25 19:35] VITALS: BP 128/91; PULSE 95; RESP 16; TEMP 36.7; O2SAT 95; BMI 21.2
--- NOTE | 2022-04-25 19:40 | ED.MALEGU ---
HPI - Male Genitourinary General Chief complaint: Urogenital-Male Stated complaint: lower abd pain Time Seen by Provider: 04/25/22 19:53 Related Data Home Medications Medication Instructions Recorded Confirmed aripiprazole 20 mg tablet 1 tab PO QAM 05/26/21 02/18/22 bethanechol chloride 50 mg tablet 1 tab PO TID 05/26/21 02/18/22 carbamazepine 200 mg tablet 500 mg PO BID 05/26/21 02/18/22 clonazepam 0.5 mg tablet 1 tab PO DAILY 05/26/21 02/18/22 hydroxyzine HCl 10 mg tablet 1 tab PO TID PRN Anxiety 05/26/21 02/18/22 tamsulosin 0.4 mg capsule 1 cap PO BEDTIME 05/26/21 02/18/22 trazodone 50 mg tablet 1 tab PO BEDTIME PRN insomnia 05/26/21 02/18/22 bethanechol chloride 50 mg tablet 50 mg PO TID 02/18/22 02/18/22 loratadine 10 mg tablet (Allergy 10 mg PO DAILY 02/18/22 02/18/22 Relief (loratadine)) olanzapine 10 mg tablet 10 mg PO BEDTIME 02/18/22 02/18/22 quetiapine 25 mg tablet mg PO 02/18/22 02/18/22 Previous Rx's Medication Instructions Recorded clotrimazole 1 % topical cream 1 appl topical BID 2 weeks #15 12/30/21 (Lotrimin AF (clotrimazole)) grams tamsulosin 0.4 mg capsule (Flomax) 0.4 mg PO BEDTIME #30 caps 01/29/22 omeprazole 40 mg capsule,delayed 40 mg PO DAILY 30 days #30 caps 01/31/22 release multivitamin-iron 9 mg-folic acid 1 tab PO DAILY #30 tabs 03/04/22 400 mcg-calcium and minerals tablet (High Potency Multivitamin (w-iron)) atorvastatin 10 mg tablet 10 mg PO DAILY 30 days #30 tabs 04/18/22 cefuroxime axetil 250 mg tablet 250 mg PO BID 7 days #14 tabs 04/21/22 docusate sodium 100 mg capsule 100 mg PO BID #20 caps 04/21/22 (Colace) polyethylene glycol 3350 17 17 g PO BID PRN constipation #238 04/21/22 gram/dose oral powder (Miralax) grams sennosides 8.6 mg tablet (senna) 8.6 mg PO BEDTIME #14 tabs 04/21/22 sennosides 8.6 mg tablet (senna) 8.6 mg PO BEDTIME #90 tabs 05/18/22 Allergies Allergy/AdvReac Type Severity Reaction Status Date / Time No Known Allergies Allergy Unknown UNKNOWN Verified 05/02/22 19:02 [NO KNOWN ALLERGIES] [facility] Past Medical History Medical History Anxiety Back pain Benign prostatic hyperplasia with lower urinary tract symptoms Bipolar 1 disorder Constipation Mood disorder Personal history of nicotine dependence Pure hypercholesterolemia Schizoaffective disorder, bipolar type Thought disorder Tubular adenoma of colon (~2018) Surgical History History of colonoscopy (~04/2019) History of open reduction and internal fixation (ORIF) procedure (~08/2018) History of prostate surgery (~04/2019) Family History Family History Father Lung cancer BPH (benign prostatic hyperplasia) Mother Dementia Brother Myocardial infarction Other Mental health problem Substance abuse Social History Social History Household Members: None Housing: Assisted Living Facility Housing Other:: longterm Do you presently have visiting nurse or other home services: No Alcohol intake: never Patient Tobacco Use Status: Current everyday Tobacco user Tobacco use type: Cigarette Cigarette Packs Per Day: 1 Cigarettes Per Day: 20.0 Years Smoked: 10 e-Cigarette/Vaping Use: Never Used Second Hand Smoke Exposure: Yes Advance Directives: No Advance Directives Information Provided: No service: No Current occupational status: employed Current occupation: [employer] Sexual orientation: Decline to Answer Cognitive needs: No Hearing needs: No Vision needs: Yes Physical Exam Vital Signs: Vital Signs: Last Vital Signs Temp 98.1 F 04/25/22 19:35 Pulse 95 04/25/22 19:35 Resp 16 04/25/22 19:35 BP 128/91 H 04/25/22 19:35 Pulse Ox 95 04/25/22 19:35 O2 Del Method 04/25/22 19:35 BMI result Body Mass Index 21.2 Course Course Course Narrative: 56 year old male self catheterization in the past here one week ago for dysuria. He lives at a longterm and is upset about the schafer that was placed one week ago. He is on antibiotics he denies fever chills or cough but is upset about the longterm where he lives as well. I will check a CBC, bmp and repeat his UA. He looks well Seen in triage rapid medical screening exam. Discharge Plan Discharge Clinical Impression: BPH with obstruction/lower urinary tract symptoms, Encounter for Schafer catheter removal Patient Disposition: Home, Self-Care Instructions: Schafer Catheter Removal (DC) Additional Instructions: Drink plenty of fluids take your antibiotics as prescribed Prescriptions: No Action omeprazole 40 mg capsule,delayed release(DR/EC) 40 mg PO DAILY 30 Days Qty: 30 2RF High Potency Multivit (w-iron) 9 mg iron-400 mcg tablet 1 tab PO DAILY Qty: 30 12RF atorvastatin 10 mg tablet 10 mg PO DAILY 30 Days Qty: 30 3RF sennosides [senna] 8.6 mg tablet 8.6 mg PO BEDTIME Qty: 90 0RF carbamazepine 200 mg tablet 500 mg PO BID bethanechol chloride 50 mg tablet 1 tab PO TID aripiprazole 20 mg tablet 1 tab PO QAM clonazepam 0.5 mg tablet 1 tab PO DAILY hydroxyzine HCl 10 mg tablet 1 tab PO TID PRN (Reason: Anxiety) trazodone 50 mg tablet 1 tab PO BEDTIME PRN (Reason: insomnia) tamsulosin 0.4 mg capsule 1 cap PO BEDTIME tamsulosin [Flomax] 0.4 mg capsule 0.4 mg PO BEDTIME Qty: 30 0RF sennosides [senna] 8.6 mg tablet 8.6 mg PO BEDTIME Qty: 14 0RF cefuroxime axetil 250 mg tablet 250 mg PO BID 7 Days Qty: 14 0RF docusate sodium [Colace] 100 mg capsule 100 mg PO BID Qty: 20 0RF polyethylene glycol 3350 [Miralax] 17 gram/dose powder 17 g PO BID PRN (Reason: constipation) Qty: 238 0RF olanzapine 10 mg tablet 10 mg PO BEDTIME quetiapine 25 mg tablet PO loratadine [Allergy Relief (loratadine)] 10 mg tablet 10 mg PO DAILY bethanechol chloride 50 mg tablet 50 mg PO TID clotrimazole [Lotrimin AF (clotrimazole)] 1 % cream 1 appl topical BID 14 Days Qty: 15 0RF Interventions: ED Discharge Assessment Last Done: 04/25/22 20:14 Discharge Date/Time: 04/25/22 20:14
== END 2022-04-25 20:14 | disposition home or self-care (01) ==
PROVIDERS: Emergency Provider Internal Medicine
DX: N40.1 Benign prostatic hyperplasia with lower urinary tract symptoms (principal); Z46.6 Encounter for fitting and adjustment of urinary device; R10.30 Lower abdominal pain, unspecified; E78.00 Pure hypercholesterolemia, unspecified; F17.210 Nicotine dependence, cigarettes, uncomplicated; Z79.02 Long term (current) use of antithrombotics/antiplatelets
CPT/HCPCS: 99282

== ENCOUNTER 2022-05-02 18:52 | Emergency (ER) | payer MEDICARE, MEDICAID, SELFPAY ==
--- NOTE | 2022-05-02 18:56 | ED.PSYCH ---
HPI - Psych General Chief Complaint: Psychiatric Symptoms Stated Complaint: crisis Time Seen by Provider: 05/02/22 20:43 Related Data Home Medications Medication Instructions Recorded Confirmed olanzapine 10 mg tablet 10 mg PO BEDTIME 02/18/22 10/21/22 aripiprazole 20 mg tablet 20 mg PO QAM 05/27/22 10/21/22 bethanechol chloride 50 mg tablet 50 mg PO TID 05/27/22 10/21/22 carbamazepine 200 mg tablet 500 mg PO BID 05/27/22 10/21/22 clonazepam 0.5 mg tablet 0.5 mg PO DAILY 05/27/22 10/21/22 hydroxyzine HCl 10 mg tablet 10 mg PO TID PRN Anxiety 05/27/22 10/21/22 quetiapine 25 mg tablet 25 mg PO BID PRN agitation 05/27/22 10/21/22 trazodone 50 mg tablet 50 mg PO BEDTIME PRN insomnia 05/27/22 10/21/22 Previous Rx's Medication Instructions Recorded clotrimazole 1 % topical cream 1 appl topical BID 2 weeks #15 12/30/21 (Lotrimin AF (clotrimazole)) grams multivitamin-iron 9 mg-folic acid 1 tab PO DAILY #30 tabs 03/04/22 400 mcg-calcium and minerals tablet (High Potency Multivitamin (w-iron)) docusate sodium 100 mg capsule 100 mg PO BID PRN constipation 30 05/27/22 (Colace) days #60 caps atorvastatin 10 mg tablet 10 mg PO DAILY 30 days #30 tabs 08/17/22 cephalexin 500 mg capsule 500 mg PO Q8H 3 days #9 caps 09/23/22 polyethylene glycol 3350 17 17 g PO DAILY constipation 30 days 09/23/22 gram/dose oral powder (Miralax) #510 grams sennosides 8.6 mg capsule (senna) 17.2 mg PO BEDTIME constipation 30 09/23/22 days #60 caps acetaminophen 500 mg tablet 500 mg PO Q4-6H PRN Pain, headache 10/06/22 or fever 30 days #150 tabs loratadine 10 mg tablet 10 mg PO DAILY PRN for allergies 12/08/22 #30 tabs omeprazole 40 mg capsule,delayed 40 mg PO DAILY 30 days #30 caps 01/04/23 release Allergies Allergy/AdvReac Type Severity Reaction Status Date / Time No Known Allergies Allergy Unknown UNKNOWN Verified 10/21/22 12:06 [NO KNOWN ALLERGIES] [facility] Past Medical History Medical History Anxiety Back pain Benign prostatic hyperplasia with lower urinary tract symptoms Bipolar 1 disorder Constipation GERD without esophagitis Mood disorder Personal history of nicotine dependence Pure hypercholesterolemia Schizoaffective disorder, bipolar type Thought disorder Tubular adenoma of colon (~2018) Surgical History History of colonoscopy (~04/2019) History of open reduction and internal fixation (ORIF) procedure (~08/2018) History of prostate surgery (~04/2019) Family History Family History Father Lung cancer BPH (benign prostatic hyperplasia) Mother Dementia Brother Myocardial infarction Other Mental health problem Substance abuse Social History Social History Household Members: None Housing: Assisted Living Facility Housing Other:: longterm Do you presently have visiting nurse or other home services: No Alcohol intake: never Patient Tobacco Use Status: Current everyday Tobacco user Tobacco use type: Cigarette Cigarette Packs Per Day: 1 Cigarettes Per Day: 20.0 Years Smoked: 10 Packs Per Year: 10 Packs per year/per ci.00 e-Cigarette/Vaping Use: Never Used Second Hand Smoke Exposure: Yes service: No Current occupational status: employed 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 Recently got schafer cath out. Denies SI/HI. Denies hallucinations. Denies fevers, chills, cp, sob, n/v, changes in bowel habits and urination. Taking meds as prescribed. States he walked to the [place] in [facility] today twice. Reports financial issues PE- benign Plan- bladder scan then medical clearance. Time: 18:59 Reevaluation #2: I did a rapid medical exam on this patient I was not the primary provider, patient was evaluated by provider Fly CORREA on 05/02/22, please refer to that providers full chart MDM - Psych Lab Data 05/02/22 19:14 05/02/22 19:14 Labs: Lab Results 05/02/22 05/02/22 05/02/22 Range/Units 19:14 19:14 20:32 WBC 6.8 (4.8-10.8) X10*3/uL RBC 4.14 L (4.60-5.80) X10*6/uL Hgb 13.2 L (14.0-18.0) g/dl Hct 38.0 L (42.0-52.0) % MCV 91.8 (80.0-98.0) fL MCH 31.9 (27.0-33.0) pg MCHC 34.7 (31.0-36.0) g/dl RDW 12.5 (11.0-16.0) % Plt Count 209 (160-400) X10*3/uL MPV 8.9 L (9.4-12.4) fL Immature Gran % (Auto) 0.4 (0.0-0.4) % Neut % (Auto) 57.8 (45-73) % Lymph % (Auto) 25.6 (20-40) % [place] % (Auto) 12.7 H (2-11) % Eos % (Auto) 2.3 (0-4) % Baso % (Auto) 1.2 (0-2) % Lymph # (Auto) 1.8 (1.2-4.9) X10*3/uL [place] # (Auto) 0.9 (0.1-1.2) X10*3/uL Eos # (Auto) 0.2 (0.0-0.4) X10*3/uL Baso # (Auto) 0.1 (0.0-0.2) X10*3/uL Abs Immat Gran (auto) 0.03 (0.00-0.03) X10*3/uL Absolute Neuts (auto) 3.9 (2.0-8.3) x10*3/uL Absolute Nucleated RBC 0.000 (0.0-0.012) X10*3/uL Nucleated RBC % (auto) 0.0 (0.0-0.2) /100WBC Sodium 128 L (135-145) mmol/L Potassium 4.7 (3.3-5.1) mmol/L Chloride 97 (96-108) mmol/L Carbon Dioxide 24 (22-29) mmol/L Anion Gap 12 (12-20) BUN 12 (9-16) mg/dL Creatinine 0.74 (0.5-1.4) mg/dL Estim Creat Clear Calc 101.5 Estimated GFR > 60 Random Glucose 96 (60-115) mg/dL Calcium 8.8 (8.4-10.2) mg/dL Total Bilirubin 0.2 (0.0-1.0) mg/dL AST 28 (5-37) U/L ALT 18 (0-40) U/L Alkaline Phosphatase 74 (39-117) U/L Total Protein 6.7 (6.5-8.0) g/dL Albumin 3.9 (3.5-5.0) g/dL Urine Opiates Screen Not Detected (Not Detect) Urine Fentanyl Screen Not Detected (Not Detect) Ur Barbiturates Screen Not Detected (Not Detect) Ur Phencyclidine Scrn Not Detected (Not Detect) Ur Amphetamines Screen Not Detected (Not Detect) U Benzodiazepines Scrn Not Detected (Not Detect) Urine Cocaine Screen Not Detected (Not Detect) U Marijuana (THC) Screen Not Detected (Not Detect) Ethyl Alcohol < 10 mg/dL Discharge Plan Discharge Clinical Impression: Acute anxiety Patient Disposition: Home, Self-Care Instructions: Paranoid Personality Disorder (ED), Anxiety (ED) Additional Instructions: Thank you for choosing this emergency department for evaluation. Please follow-up with primary care physician as needed. Return to the emergency department for any new, concerning, or worsening symptoms. Prescriptions: No Action High Potency Multivit (w-iron) 9 mg iron-400 mcg tablet 1 tab PO DAILY Qty: 30 12RF atorvastatin 10 mg tablet 10 mg PO DAILY 30 Days Qty: 30 3RF acetaminophen 500 mg tablet 500 mg PO Q4-6H PRN (Reason: Pain, headache or fever) 30 Days Qty: 150 2RF Rx Instructions: NOT TO EXCEED 6 tablets in a 24 hour period loratadine 10 mg tablet 10 mg PO DAILY PRN (Reason: for allergies) Qty: 30 3RF omeprazole 40 mg capsule,delayed release(DR/EC) 40 mg PO DAILY 30 Days Qty: 30 2RF aripiprazole 20 mg tablet 20 mg PO QAM clonazepam 0.5 mg tablet 0.5 mg PO DAILY hydroxyzine HCl 10 mg tablet 10 mg PO TID PRN (Reason: Anxiety) trazodone 50 mg tablet 50 mg PO BEDTIME PRN (Reason: insomnia) bethanechol chloride 50 mg tablet 50 mg PO TID carbamazepine 200 mg tablet 500 mg PO BID Patient Comments: mood stabilizer olanzapine 10 mg tablet 10 mg PO BEDTIME quetiapine 25 mg tablet 25 mg PO BID PRN (Reason: agitation) clotrimazole [Lotrimin AF (clotrimazole)] 1 % cream 1 appl topical BID 14 Days Qty: 15 0RF docusate sodium [Colace] 100 mg capsule 100 mg PO BID PRN (Reason: constipation) 30 Days Qty: 60 11RF cephalexin 500 mg capsule 500 mg PO Q8H 3 Days Qty: 9 0RF Rx Instructions: EXTEND current Abx for 3 MORE DAYS senna 8.6 mg capsule 17.2 mg PO BEDTIME 30 Days Qty: 60 3RF polyethylene glycol 3350 [Miralax] 17 gram/dose powder 17 g PO DAILY 30 Days Qty: 510 5RF Interventions: [place]-Suicide Risk Severity Scale Last Done: 05/02/22 21:48 ED Discharge Assessment Last Done: 05/02/22 21:45 Discharge Date/Time: 05/02/22 21:20
[2022-05-02 19:00] VITALS: BP 149/92; PULSE 100; RESP 20; TEMP 36.5; O2SAT 100; BMI 21.6
[2022-05-02 19:20] LABS: MANUAL DIFF FLAG NO
[2022-05-02 19:22] LABS: Basophils Absolute Auto 0.1 X10*3/uL (0.0-0.2); Basophils Percent Auto 1.2 % (0-2); Eosinophils Absolute Auto 0.2 X10*3/uL (0.0-0.4); Eosinophils Percent Auto 2.3 % (0-4); Hemoglobin 13.2 g/dl (14.0-18.0); Imm Gran Abs Auto 0.03 X10*3/uL (0.00-0.03); Imm Gran Pct Auto 0.4 % (0.0-0.4); Lymphocytes Absolute Auto 1.8 X10*3/uL (1.2-4.9); Lymphocytes Percent Auto 25.6 % (20-40); Mean Corpuscular HGB Conc 34.7 g/dl (31.0-36.0); Mean Corpuscular Hemoglobin 31.9 pg (27.0-33.0); Mean Corpuscular Volume 91.8 fL (80.0-98.0); Mean Platelet Volume 8.9 fL (9.4-12.4); Monocytes Absolute Auto 0.9 X10*3/uL (0.1-1.2); Monocytes Percent Auto 12.7 % (2-11); Neutrophils Absolute Auto 3.9 x10*3/uL (2.0-8.3); Neutrophils Percent Auto 57.8 % (45-73); Platelet Count 209 X10*3/uL (160-400); Red Blood Count 4.14 X10*6/uL (4.60-5.80); Red Cell Distribution Width 12.5 % (11.0-16.0); White Blood Count 6.8 X10*3/uL (4.8-10.8)
[2022-05-02 19:42] LABS: Alanine Aminotransferase 18 U/L (0-40); Albumin Level 3.9 g/dL (3.5-5.0); Alkaline Phosphatase 74 U/L (39-117); Anion Gap 12 (12-20); Aspartate Amino Transferase 28 U/L (5-37); Bilirubin Total 0.2 mg/dL (0.0-1.0); Blood Urea Nitrogen 12 mg/dL (9-16); Calcium 8.8 mg/dL (8.4-10.2); Carbon Dioxide 24 mmol/L (22-29); Chloride 97 mmol/L (96-108); Creatinine Clr Calc Pharmacy 101.5; Estimated Glomerular Filt Rate > 60; Ethanol < 10 mg/dL; Glucose Random 96 mg/dL (60-115); Potassium 4.7 mmol/L (3.3-5.1); Sodium 128 mmol/L (135-145); Total Protein 6.7 g/dL (6.5-8.0)
[2022-05-02 20:33] VITALS: BP 137/78; PULSE 80; RESP 16; TEMP 36.6; O2SAT 96
--- NOTE | 2022-05-02 20:43 | ED.PSYCH ---
HPI - Psych General Chief Complaint: Psychiatric Symptoms Stated Complaint: crisis Time Seen by Provider: 05/02/22 20:43 Source: patient Mode of arrival: ambulatory Limitations: no limitations History of Present Illness HPI Narrative: 56-year-old male presents with emotional distress because of his living situation. Also reports that his urine is too clear. MD complaint: anxiety Onset (ago): year(s) Duration: constant History of same: Yes Relieving factors: none Context: significant life stressor Associated psychiatric symptoms: none Associated symptoms: denies other symptoms Treatments prior to arrival: none Related Data Home Medications Medication Instructions Recorded Confirmed aripiprazole 20 mg tablet 1 tab PO QAM 05/26/21 02/18/22 bethanechol chloride 50 mg tablet 1 tab PO TID 05/26/21 02/18/22 carbamazepine 200 mg tablet 500 mg PO BID 05/26/21 02/18/22 clonazepam 0.5 mg tablet 1 tab PO DAILY 05/26/21 02/18/22 hydroxyzine HCl 10 mg tablet 1 tab PO TID PRN Anxiety 05/26/21 02/18/22 tamsulosin 0.4 mg capsule 1 cap PO BEDTIME 05/26/21 02/18/22 trazodone 50 mg tablet 1 tab PO BEDTIME PRN insomnia 05/26/21 02/18/22 bethanechol chloride 50 mg tablet 50 mg PO TID 02/18/22 02/18/22 loratadine 10 mg tablet (Allergy 10 mg PO DAILY 02/18/22 02/18/22 Relief (loratadine)) olanzapine 10 mg tablet 10 mg PO BEDTIME 02/18/22 02/18/22 quetiapine 25 mg tablet mg PO 02/18/22 02/18/22 Previous Rx's Medication Instructions Recorded clotrimazole 1 % topical cream 1 appl topical BID 2 weeks #15 12/30/21 (Lotrimin AF (clotrimazole)) grams tamsulosin 0.4 mg capsule (Flomax) 0.4 mg PO BEDTIME #30 caps 01/29/22 omeprazole 40 mg capsule,delayed 40 mg PO DAILY 30 days #30 caps 01/31/22 release multivitamin-iron 9 mg-folic acid 1 tab PO DAILY #30 tabs 03/04/22 400 mcg-calcium and minerals tablet (High Potency Multivitamin (w-iron)) sennosides 8.6 mg tablet (senna) 8.6 mg PO BEDTIME #90 tabs 03/24/22 atorvastatin 10 mg tablet 10 mg PO DAILY 30 days #30 tabs 04/18/22 cefuroxime axetil 250 mg tablet 250 mg PO BID 7 days #14 tabs 04/21/22 docusate sodium 100 mg capsule 100 mg PO BID #20 caps 04/21/22 (Colace) polyethylene glycol 3350 17 17 g PO BID PRN constipation #238 04/21/22 gram/dose oral powder (Miralax) grams sennosides 8.6 mg tablet (senna) 8.6 mg PO BEDTIME #14 tabs 04/21/22 Allergies Allergy/AdvReac Type Severity Reaction Status Date / Time No Known Allergies Allergy Unknown UNKNOWN Verified 05/02/22 19:02 [NO KNOWN ALLERGIES] Review of Systems Review of Systems: Constitutional: No Fever, No Chills ENT/Mouth: No Ear Pain, No Nasal Congestion, No sore throat Eyes: No Eye Pain, No Swelling, No Redness Cardiovascular: No Chest Pain, No SOB Respiratory: No Cough, No Sputum, No Dyspnea Gastrointestinal: No Nausea, No Vomiting, No Diarrhea, No Hematochezia, No Melena Genitourinary: No Dysuria, No Urinary Frequency, No Hematuria Musculoskeletal: No Myalgias Skin: No Skin Lesions, No rash Neuro: No Weakness, No Numbness, No Paresthesias, No Dizziness, No Headache Psych: positive Anxiety, positive Depression, no SI/HI Heme/Lymph: No Lymphadenopathy Endocrine: No Polyuria, No Polydipsia Yes all other systems are reviewed and are negative [facility] Past Medical History Attestation statement: The following information was validated with the patient. Source: old records reviewed Medical History Anxiety Back pain Benign prostatic hyperplasia with lower urinary tract symptoms Bipolar 1 disorder Constipation Mood disorder Personal history of nicotine dependence Pure hypercholesterolemia Schizoaffective disorder, bipolar type Thought disorder Tubular adenoma of colon (~2018) Surgical History History of colonoscopy (~04/2019) History of open reduction and internal fixation (ORIF) procedure (~08/2018) History of prostate surgery (~04/2019) Family History Family History Father Lung cancer BPH (benign prostatic hyperplasia) Mother Dementia Brother Myocardial infarction Other Mental health problem Substance abuse Social History Social History Household Members: None Housing: Assisted Living Facility Housing Other:: intermediate Do you presently have visiting nurse or other home services: No Alcohol intake: never Patient Tobacco Use Status: Current everyday Tobacco user Tobacco use type: Cigarette Cigarette Packs Per Day: 1 Cigarettes Per Day: 20.0 Years Smoked: 10 e-Cigarette/Vaping Use: Never Used Second Hand Smoke Exposure: Yes Advance Directives: No Advance Directives Information Provided: No service: No Current occupational status: employed Current occupation: [employer] Sexual orientation: Decline to Answer Cognitive needs: No Hearing needs: No Vision needs: Yes Physical Exam Vital Signs: Vital Signs: Last Vital Signs Temp 97.8 F 05/02/22 20:33 Pulse 80 05/02/22 20:33 Resp 16 05/02/22 20:33 BP 137/78 05/02/22 20:33 Pulse Ox 96 05/02/22 20:33 O2 Del Method 05/02/22 20:33 BMI result Body Mass Index 21.6 Appearance: Alert. Oriented X3. No acute distress. Eyes: Pupils equal, round and reactive to light. ENT: Pharynx normal. Neck: Normal inspection. Neck supple. CVS: Normal heart rate and rhythm. Pulses normal. Respiratory: No respiratory distress. Skin: Skin warm and dry. Normal skin color. Normal skin turgor. Extremities: Gait well-balanced well coordinated. Neuro: No motor deficit. No sensory deficit. Cranial nerves 2-12 intact. Course Course Course Narrative: 56-year-old male presents for evaluation for his living situation. States that he cannot handle is roommates, and does not like where he lives. Patient also is complaining that his urine is too clear. Patient has presented multiple times in the past for similar circumstances. Patient feels that his living situation is an emergency and would like the Emergency Department to find a new place for him to live. I informed this patient that this is not emergent medical condition, patient became belligerent, started screaming and swearing at this REGISTERED ACCOUNT ADMINISTRATOR. Patient stated that it is emergency and that we must do something about that because the our job is to handle emergencies. Patient also complained that his urine is too clear and that ?something must be done about it?. I did inform him that he must follow up with his urologist, as he is an established patient with [facility]. Patient continued to yell at this REGISTERED ACCOUNT ADMINISTRATOR, stating that I must deal with his intermediate living situation. Patient was discharged home, stated that he would not leave unless we worked on his intermediate situation. Patient was escorted out of his room by security. MDM - Psych Differential Diagnosis Differential diagnosis: Likely acute anxiety Medical Records Attestation: I reviewed the patient's medical records. Lab Data Attestation: I reviewed the patient's lab results. Result diagrams: 05/02/22 19:14 05/02/22 19:14 Labs: Lab Results 05/02/22 05/02/22 05/02/22 Range/Units 19:14 19:14 20:32 WBC 6.8 (4.8-10.8) X10*3/uL RBC 4.14 L (4.60-5.80) X10*6/uL Hgb 13.2 L (14.0-18.0) g/dl Hct 38.0 L (42.0-52.0) % MCV 91.8 (80.0-98.0) fL MCH 31.9 (27.0-33.0) pg MCHC 34.7 (31.0-36.0) g/dl RDW 12.5 (11.0-16.0) % Plt Count 209 (160-400) X10*3/uL MPV 8.9 L (9.4-12.4) fL Immature Gran % (Auto) 0.4 (0.0-0.4) % Neut % (Auto) 57.8 (45-73) % Lymph % (Auto) 25.6 (20-40) % Amelia % (Auto) 12.7 H (2-11) % Eos % (Auto) 2.3 (0-4) % Baso % (Auto) 1.2 (0-2) % Lymph # (Auto) 1.8 (1.2-4.9) X10*3/uL Amelia # (Auto) 0.9 (0.1-1.2) X10*3/uL Eos # (Auto) 0.2 (0.0-0.4) X10*3/uL Baso # (Auto) 0.1 (0.0-0.2) X10*3/uL Abs Immat Gran (auto) 0.03 (0.00-0.03) X10*3/uL Absolute Neuts (auto) 3.9 (2.0-8.3) x10*3/uL Absolute Nucleated RBC 0.000 (0.0-0.012) X10*3/uL Nucleated RBC % (auto) 0.0 (0.0-0.2) /100WBC Sodium 128 L (135-145) mmol/L Potassium 4.7 (3.3-5.1) mmol/L Chloride 97 (96-108) mmol/L Carbon Dioxide 24 (22-29) mmol/L Anion Gap 12 (12-20) BUN 12 (9-16) mg/dL Creatinine 0.74 (0.5-1.4) mg/dL Estim Creat Clear Calc 101.5 Estimated GFR > 60 Random Glucose 96 (60-115) mg/dL Calcium 8.8 (8.4-10.2) mg/dL Total Bilirubin 0.2 (0.0-1.0) mg/dL AST 28 (5-37) U/L ALT 18 (0-40) U/L Alkaline Phosphatase 74 (39-117) U/L Total Protein 6.7 (6.5-8.0) g/dL Albumin 3.9 (3.5-5.0) g/dL Urine Opiates Screen Not Detected (Not Detect) Urine Fentanyl Screen Not Detected (Not Detect) Ur Barbiturates Screen Not Detected (Not Detect) Ur Phencyclidine Scrn Not Detected (Not Detect) Ur Amphetamines Screen Not Detected (Not Detect) U Benzodiazepines Scrn Not Detected (Not Detect) Urine Cocaine Screen Not Detected (Not Detect) U Marijuana (THC) Screen Not Detected (Not Detect) Ethyl Alcohol < 10 mg/dL Discharge Plan Discharge Clinical Impression: Acute anxiety Patient Disposition: Home, Self-Care Instructions: Paranoid Personality Disorder (ED), Anxiety (ED) Additional Instructions: Thank you for choosing this emergency department for evaluation. Please follow-up with primary care physician as needed. Return to the emergency department for any new, concerning, or worsening symptoms. Prescriptions: No Action omeprazole 40 mg capsule,delayed release(DR/EC) 40 mg PO DAILY 30 Days Qty: 30 2RF High Potency Multivit (w-iron) 9 mg iron-400 mcg tablet 1 tab PO DAILY Qty: 30 12RF sennosides [senna] 8.6 mg tablet 8.6 mg PO BEDTIME Qty: 90 0RF atorvastatin 10 mg tablet 10 mg PO DAILY 30 Days Qty: 30 3RF carbamazepine 200 mg tablet 500 mg PO BID bethanechol chloride 50 mg tablet 1 tab PO TID aripiprazole 20 mg tablet 1 tab PO QAM clonazepam 0.5 mg tablet 1 tab PO DAILY hydroxyzine HCl 10 mg tablet 1 tab PO TID PRN (Reason: Anxiety) trazodone 50 mg tablet 1 tab PO BEDTIME PRN (Reason: insomnia) tamsulosin 0.4 mg capsule 1 cap PO BEDTIME tamsulosin [Flomax] 0.4 mg capsule 0.4 mg PO BEDTIME Qty: 30 0RF sennosides [senna] 8.6 mg tablet 8.6 mg PO BEDTIME Qty: 14 0RF cefuroxime axetil 250 mg tablet 250 mg PO BID 7 Days Qty: 14 0RF docusate sodium [Colace] 100 mg capsule 100 mg PO BID Qty: 20 0RF polyethylene glycol 3350 [Miralax] 17 gram/dose powder 17 g PO BID PRN (Reason: constipation) Qty: 238 0RF olanzapine 10 mg tablet 10 mg PO BEDTIME quetiapine 25 mg tablet PO loratadine [Allergy Relief (loratadine)] 10 mg tablet 10 mg PO DAILY bethanechol chloride 50 mg tablet 50 mg PO TID clotrimazole [Lotrimin AF (clotrimazole)] 1 % cream 1 appl topical BID 14 Days Qty: 15 0RF Interventions: [place]-Suicide Risk Severity Scale Last Done: 05/02/22 21:48 ED Discharge Assessment Last Done: 05/02/22 21:45 Discharge Date/Time: 05/02/22 21:20
[2022-05-02 21:00] LABS: Amphetamine Screen Urine Not Detected (Not Detect); Barbiturates, Urine Not Detected (Not Detect); Benzodiazepines Screen Urine Not Detected (Not Detect); Cannabinoid Screen Urine Not Detected (Not Detect); Cocaine Screen Urine Not Detected (Not Detect); Fentanyl, urine Not Detected (Not Detect); Opiate Screen Urine Not Detected (Not Detect); Phencyclidine Screen Urine Not Detected (Not Detect)
== END 2022-05-02 21:20 | disposition home or self-care (01) ==
PROVIDERS: Physician Assistant; Emergency Provider Internal Medicine; PCP Internal Medicine
DX: F41.9 Anxiety disorder, unspecified (principal); E78.00 Pure hypercholesterolemia, unspecified; F25.0 Schizoaffective disorder, bipolar type; F17.210 Nicotine dependence, cigarettes, uncomplicated; Z79.02 Long term (current) use of antithrombotics/antiplatelets; Z79.899 Other long term (current) drug therapy; Z72.89 Other problems related to lifestyle
CPT/HCPCS: 36415; 51798; 80053; 80307; 82077; 85025; 99284

== ENCOUNTER 2023-05-30 10:04 | Outpatient (AMB) | payer MEDICARE, MEDICAID, SELFPAY ==
--- NOTE | 2023-05-30 10:11 | A.OFFPC_ITS ---
Vital Signs 05/30/23 10:12 Height 5 ft 8 in Weight 145 lb BMI 22.0 BP 116/80 Blood Pressure Location Lt brachial Position Sitting Pulse 79 Pulse Source Pulse Oximeter Pulse Oximetry (%) 98 Oxygen Delivery Method Room Air Intake Visit Reasons: PE Community Service Organization Director Required: No Accompanied by: Self / Same As Patient Allergies No Known Allergies [NO KNOWN ALLERGIES] Allergy (Unknown, Verified 05/30/23 10:22) UNKNOWN Medication List - Last Reconciled 05/30/23 by Dk Rodriguez MD acetaminophen 500 mg PO Q4-6H PRN 30 days aripiprazole 20 mg PO QAM atorvastatin 10 mg PO DAILY 30 days bethanechol chloride 50 mg PO TID carbamazepine 500 mg PO BID clonazepam 0.5 mg PO DAILY clotrimazole 1% (Lotrimin AF (clotrimazole)) 1 appl topical BID 2 weeks docusate sodium (Colace) 100 mg PO BID PRN 30 days hydroxyzine HCl 10 mg PO TID PRN loratadine 10 mg PO DAILY PRN hmjglzcm-anto-VT-calcium-mins 9 mg iron-400 mcg (High Potency Multivitamin (w- iron)) 1 tab PO DAILY olanzapine 15 mg PO BEDTIME omeprazole 40 mg PO DAILY 30 days polyethylene glycol 3350 (Miralax) 17 grams PO DAILY 30 days quetiapine 25 mg PO BID PRN sennosides (senna) 17.2 mg (2 x 8.6 mg) PO BEDTIME 30 days trazodone 50 mg PO BEDTIME PRN Tobacco use date assessed: 05/30/23 Dental Screening Dental Screen Date: 05/30/23 Did you have a dental visit in the last 12 months?: Yes Did you have a dental problem in the last 6 months where you did not have access to dental care?: No Was dental information given to patient?: Patient has dentist HPI PE HPI Details Patient comes in today for his annual physical examination States that he currently feels okay Patient went to the ER at [facility] last month for increasing left lower abdominal pain and discomfort that was promptly relieved when he had a Santos catheter inserted assisted staff states that he has been going to the ER quite often lately for the same complaints as he seems to be having difficulty performing his straight cath on his own consistently over the past few months He used to see Dr. Liu but now follows up with [facility] on [facility] for his neurogenic bladder issues He denies any headaches or dizziness Denies any chest pains, no SOB No nausea/vomiting, no abdominal pain No change in bowel habits noted Has not had any follow up labs done in over a year now - labs were last done here at [facility] [place] in April 2022 He had his colonoscopy last done in April 2019 and was recommended to have repeat colonoscopy in 5 years (2023) due to recurrent tubular adenomas [facility] Medical History GERD without esophagitis Tubular adenoma of colon (~2018) Personal history of nicotine dependence Constipation Back pain Schizoaffective disorder, bipolar type Anxiety Benign prostatic hyperplasia with lower urinary tract symptoms Pure hypercholesterolemia Thought disorder Bipolar 1 disorder Mood disorder Surgical History History of colonoscopy (~04/2019) History of prostate surgery (~04/2019) History of open reduction and internal fixation (ORIF) procedure (~08/2018) Family History Father Lung cancer BPH (benign prostatic hyperplasia) Mother Dementia Brother Myocardial infarction Other Mental health problem Substance abuse Social History Household Members: None Housing: Assisted Living Facility Housing Other:: custodial Do you presently have visiting nurse or other home services: No Alcohol intake: never Patient Tobacco Use Status: Current everyday Tobacco user Tobacco use type: Cigarette Cigarette Packs Per Day: 1 Cigarettes Per Day: 20.0 Years Smoked: 10 e-Cigarette/Vaping Use: Never Used Second Hand Smoke Exposure: Yes service: No Current occupational status: employed Current occupation: [employer] Sexual orientation: Decline to Answer Cognitive needs: No Hearing needs: No Vision needs: Yes Questionnaire PHQ-9 Over the last 2 weeks, how often have you been bothered by any of the following problems? 1. Little interest or pleasure in doing things: several days 2. Feeling down, depressed, or hopeless: several days 3. Trouble falling or staying asleep, or sleeping too much: nearly every day 4. Feeling tired or having little energy: nearly every day 5. Poor appetite or overeating: nearly every day 6. Feeling bad about yourself - or that you are a failure or have let yourself or your family down: nearly every day 7. Trouble concentrating on things, such as reading the newspaper or watching television: nearly every day 8. Moving or speaking so slowly that other people could have noticed. Or the opposite - being so fidgety or restless that you have been moving around a lot more than usual: nearly every day 9. Thoughts that you would be better off or of hurting yourself in some way: not at all Total score: 20 Depression Screening Interpretation: Positive Depression Screening Follow-up: Existing condition and In treatment Depression Screening Done: Yes 66661 - PHQ-9 Billing: Yes Source: Developed by Drs. Adolfo Munoz, Michelle Dumont, Gregory Rai and colleagues, with an educational ebenezer from [employer]. Thrive Questionnaire Date Thrive assessed: 05/30/23 I am a: Patient What is your living situation today?: I have a steady place to live Within the past 12 months, did the food you bought not last and you didn't have the money to get more?: Never true Within the past 12 months, did you worry whether your food would run out before you got money to buy more?: Never true Do you have trouble paying for medicines?: No Do you have trouble getting transportation to medical appointments?: No Do you have trouble paying your heating and electricity bill?: No Do you have trouble taking care of your child, family member or friend?: No Do you have trouble with day-to-day activities such as bathing, preparing meals, shopping, managing finances, etc.?: No Are you currently unemployed and looking for a job?: No Are you interested in more education?: No Please select the resources that you would like help with: None Currently or been in a relationship where the following occur: no concerns reported AUDIT C Alcohol Use Questionnaire (AUDIT-C) 1. How often do you have a drink containing alcohol?: Never 3. How often do you have six or more drinks on one occasion?: Never Total Score: 0 Score Reviewed/Action Taken: Yes JALEESA-7 AMB Questionnaire JALEESA-7 Date JALEESA - 7 assessed: 05/30/23 Feeling nervous, anxious, or on edge: 0 = Not at all Not being able to stop or control worryin = Not at all Worrying too much about different things: 0 = Not at all Trouble relaxin = Not at all Being so restless that it is hard to sit still: 0 = Not at all Becoming easily annoyed or irritable: 0 = Not at all Feeling afraid as if something awful might happen: 0 = Not at all Total JALEESA-7 score (0-4 normal; 5-9 mild; 10-14 moderate; 15-21 severe): 0 Source: Developed by Drs. Adolfo Munoz, Michelle Dumont, Gregory Rai and colleagues, with an educational ebenezer from [employer]. JALEESA-7 Assessment Billing JALEESA-7 Assessment Tool: JALEESA-7 Assessment 45571 Review of Systems Const Denies chills, Reports difficulty sleeping (Rx currently helping with his s leep), Denies fatigue, Denies fever(s), Denies headache(s), Denies malaise and Denies weakness Eyes Denies blurry vision, Denies change in vision, Denies irritation and Denies itchy eyes ENT Denies dysphagia, Denies dizziness, Denies otalgia, Denies headache(s), Denies nasal congestion, Denies neck pain, Denies odynophagia and Denies sore throat Card Denies chest pain, Denies rapid heart rate, Denies irregular heart rhythm, Denies palpitations and Denies dyspnea Resp Denies chest congestion, Denies cough, Denies dyspnea and Denies wheezing GI Denies abdominal pain, Reports bloating (at times), Reports constipation (Rx helping lately), Denies dysphagia, Denies heartburn, Denies diarrhea, Denies nausea, Denies odynophagia and Denies vomiting Denies hematuria, Reports difficulty urinating (chronic - still doing self- catheterization regularly), Denies dysuria and Denies urinary incontinence Musc Denies back pain, Denies arthralgias, Denies joint swelling, Denies muscle weakness and Denies neck pain Skin/Breast Denies change in pigmentation, Denies lesions, Denies rash and Denies unusual bruising Neuro Denies dizziness, Denies headache(s), Denies paresthesias and Denies weakness Psych Reports anxiety and Reports irritability (at times) Endo Denies fatigue and Denies palpitations Aller/Immun Denies itchy eyes and Denies wheezing Physical exam (Primary Care) Vital Signs: Last Vital Signs Pulse 79 05/30/23 10:12 BP 116/80 05/30/23 10:12 Pulse Ox 98 05/30/23 10:12 Oxygen Delivery Method Room Air 05/30/23 10:12 BMI result Body Mass Index 22.0 Tobacco/Smoking Status: Tobacco use Status Tobacco use date assessed 05/30/23 05/30/23 10:13 Patient Tobacco Use Status Current everyday Tobacco 05/30/23 10:13 Tobacco use type Cigarette 05/30/23 10:13 e-Cigarette/Vaping Use Never Used 05/30/23 10:13 PHQ-9: PHQ-9 Score PHQ-9: Total score 20 05/30/23 10:13 Depression Screening Interpretation: Positive Depression Screening Follow-up: Existing condition and In treatment Thrive Assessment: Date of Thrive Assessment Date Thrive assessed 05/30/23 05/30/23 10:13 Currently or been in a relationship where the following occur: no concerns reported Const General: no acute distress, alert and awake Orientation/consciousness: patient oriented x3 HENMT Head: Yes normocephalic and Yes atraumatic Ears: external ears normal, TM's normal bilaterally and EAC's normal General nose exam: No nasal discharge present Face and sinus: Yes normal facial exam and Yes sinuses nontender Teeth and gingiva: dentition normal Throat: Yes posterior oropharynx normal and Yes tonsils normal (no TP c ongestion) Eyes Eyelids: Yes eyelids normal Conjunctivae: conjunctivae normal Pupils: Equal, round and reactive pupils present EOM: EOMs intact bilaterally Neck Neck: Yes no lymphadenopathy and Yes supple Thyroid: Thyroid normal Resp Auscultation: clear to auscultation bilaterally, no rales and no wheezes Cardio Rate: regular rate Rhythm: regular rhythm Heart sounds: no murmurs GI Palpation (GI): Soft to palpation, nontender and No hepatosplenomegaly present Auscultation: normal bowel sounds General: Yes no CVA tenderness Back/Spine/Pelvis Back: no CVA tenderness Thoracic/Lumbar Spine: thoracic and lumbar spine normal to inspection Skin Lesions: no lesions Rashes: no rashes Neuro General: patient oriented x3, moves all extremities, no focal motor deficits and CN's II-XI intact bilaterally Cranial nerves: Yes Equal, round and reactive pupils present Cognition (Neuro): normal cognition Gait exam (Neuro): Normal gait present Extrem General: Yes no clubbing, cyanosis or edema Assessment and Plan Assessment & Plan (1) Annual physical exam: Code(s): Z00.00 - Encounter for general adult medical examination without abnormal findings Plan: Check labs - lab orders printed and patient will have these drawn by [facility] He is up-to-date with his screening colonoscopy - will be due for repeat in late 2023 due to (+) tubular adenoma (2) Pure hypercholesterolemia: Code(s): E78.00 - Pure hypercholesterolemia, unspecified Plan: Reinforced low cholesterol diet Continue Atorvastatin 10 mg QD Will recheck his labs and fasting lipids ANISHA for follow uo (3) Neurogenic bladder: Code(s): N31.9 - Neuromuscular dysfunction of bladder, unspecified Plan: Continues to require self catheterization multiple times a day to relieve his bladder Continue Bethanecol 10 mg TID Follow up with urology as scheduled - is now going [facility] on [facility] (4) Benign prostatic hyperplasia with lower urinary tract symptoms: Code(s): N40.1 - Benign prostatic hyperplasia with lower urinary tract symptoms Qualifiers: Lower urinary tract symptom detail: urinary retention Qualified Code(s): N40.1 - Benign prostatic hyperplasia with lower urinary tract symptoms; R33.8 - Other retention of urine Plan: S/P laser prostatectomy by Dr. Sánchez a few years ago (2019) but is frustrated as he feels that his symptoms have not improved at all with surgery and he continues to require self-catheterization several times a day just to relieve his bladder (5) GERD without esophagitis: Code(s): K21.9 - Gastro-esophageal reflux disease without esophagitis Plan: Dietary restrictions reinforced Continue Omeprazole 40 mg QD (6) Constipation: Code(s): K59.00 - Constipation, unspecified Qualifiers: Constipation type: unspecified constipation type Qualified Code(s): K59.00 - Constipation, unspecified Plan: Patient is encouraged again to continue to increase his oral fluids and dietary fiber Continue Senna 8.6 mg 1 to 2 tablets Q HS and Docusate 100 mg BID PRN Also has Miralax but patient does not like to take it consistently - have reminded him that he should be taking Miralax 17 gm daily for it to be effective (7) Anxiety: Code(s): F41.9 - Anxiety disorder, unspecified Plan: Continue Hydroxyzine 10 mg 3 times a day as needed and Clonazepam 0.5 mg daily as needed (8) Schizoaffective disorder, bipolar type: Code(s): F25.0 - Schizoaffective disorder, bipolar type Plan: Continue Tegretol 500 mg twice a day, Aripiprazole 20 mg Q AM, Olanzapine 15 mg Q HS, Quetiapine 25 mg BID PRN and Trazodone 50 mg Q HS PRN Follow-up with Psychiatry as scheduled - see Oskar Eduardo (9) Smoker: Code(s): F17.200 - Nicotine dependence, unspecified, uncomplicated Plan: Counseled again on smoking cessation Patient has been on Chantix for several months with no improvement in his smoking and this was discontinued late last year - states that he continues to smoke regularly even while on the medication, mostly due to his anxiety Plan Follow up in 3 months Orders: Orders Complete Blood Count Auto Diff Today N31.9 - Neuromuscular dysfunction of bladder, unspecified, Z00.00 - Encounter for general adult medical examination without abnormal findings Comprehensive [place]. Panel Fast Today E78.00 - Pure hypercholesterolemia, unspecified, Z00.00 - Encounter for general adult medical examination without abnormal findings Vitamin D 25-OH Total Today E55.9 - Vitamin D deficiency, unspecified, Z00.00 - Encounter for general adult medical examination without abnormal findings Prostate Specific Antigen Today N40.0 - Benign prostatic hyperplasia without lower urinary tract symptoms, Z00.00 - Encounter for general adult medical examination without abnormal findings Lipid Panel Today E78.00 - Pure hypercholesterolemia, unspecified, Z00.00 - Encounter for general adult medical examination without abnormal findings TSH reflex Free T4 Today E78.00 - Pure hypercholesterolemia, unspecified, Z00.00 - Encounter for general adult medical examination without abnormal findings UA CC w/rflx Micro + Cult Today R30.0 - Dysuria, Z00.00 - Encounter for general adult medical examination without abnormal findings Hemoglobin A1c Today R73.01 - Impaired fasting glucose, Z00.00 - Encounter for general adult medical examination without abnormal findings Coding Level of Care Code Est Pt Prev Care 40-64y(81064) Diagnoses Annual physical exam Z00.00 Pure hypercholesterolemia E78.00 Neurogenic bladder N31.9 Benign prostatic hyperplasia with urinary retention N40.1; R33.8 Lower urinary tract symptom detail: urinary retention GERD without esophagitis K21.9 Constipation, unspecified constipation type K59.00 Constipation type: unspecified constipation type Anxiety F41.9 Schizoaffective disorder, bipolar type F25.0 Smoker F17.200 Additional Codes JALEESA-7 Assessment Billing - JALEESA-7 Assessment Tool: JALEESA-7 Assessment 41509 ([id number])
[2023-05-30 10:12] VITALS: BP 116/80; PULSE 79; O2SAT 98; BMI 22.0
== END 2023-05-30 10:35 | disposition home or self-care (01) ==
PROVIDERS: Visit Provider Internal Medicine
DX: Z00.00 Encounter for general adult medical examination without abnormal findings (principal); F25.0 Schizoaffective disorder, bipolar type; E78.00 Pure hypercholesterolemia, unspecified; N31.9 Neuromuscular dysfunction of bladder, unspecified; N40.1 Benign prostatic hyperplasia with lower urinary tract symptoms; R33.8 Other retention of urine; K21.9 Gastro-esophageal reflux disease without esophagitis; K59.00 Constipation, unspecified; F41.9 Anxiety disorder, unspecified; F17.210 Nicotine dependence, cigarettes, uncomplicated
CPT/HCPCS: 96127; 99396

== ENCOUNTER 2023-08-30 12:39 | Outpatient (AMB) | payer MEDICARE, MEDICAID, SELFPAY ==
--- NOTE | 2023-08-30 12:54 | MHC.PC.OV ---
Vital Signs 08/30/23 12:58 Height 5 ft 8 in Weight 144 lb 8 oz BMI 22.0 BP 110/68 Blood Pressure Location Lt brachial Position Sitting Pulse 71 Pulse Source Pulse Oximeter Pulse Oximetry (%) 96 Oxygen Delivery Method Room Air Intake Visit Reasons: hyperlipidemia, neurogenic bladder Intake Note: Patient is here to follow up on Hyperlipidemia, Neurogenic bladder. Surgery Manager Required: No Lead Systems Analyst: Present Accompanied by: staff Allergies No Known Allergies [NO KNOWN ALLERGIES] Allergy (Unknown, Verified 08/30/23 13:24) UNKNOWN Medication List - Last Reconciled 08/30/23 by Dk Rodriguez MD acetaminophen 500 mg PO Q4-6H PRN 30 days aripiprazole 20 mg PO QAM atorvastatin 10 mg PO DAILY 30 days bethanechol chloride 50 mg PO TID carbamazepine 500 mg PO BID clonazepam 0.5 mg PO DAILY clotrimazole 1% (Lotrimin AF (clotrimazole)) 1 appl topical BID 2 weeks docusate sodium (Colace) 100 mg PO BID PRN 30 days hydroxyzine HCl 10 mg PO TID PRN loratadine 10 mg PO DAILY PRN cebmcbte-vkoq-ZR-calcium-mins 9 mg iron-400 mcg (High Potency Multivitamin (w-iron)) 1 tab PO DAILY olanzapine 15 mg PO BEDTIME omeprazole 40 mg PO DAILY 30 days polyethylene glycol 3350 (Miralax) 17 grams PO DAILY 30 days quetiapine 25 mg PO BID PRN sennosides (senna) 17.2 mg (2 x 8.6 mg) PO BEDTIME 30 days trazodone 50 mg PO BEDTIME PRN Tobacco use date assessed: 08/30/23 Dental Screening Dental Screen Date: 08/30/23 Did you have a dental visit in the last 12 months?: No Did you have a dental problem in the last 6 months where you did not have access to dental care?: No Was dental information given to patient?: No (dentures) HPI hyperlipidemia, neurogenic bladder HPI Details Patient comes in today for his follow up visit He apparently went to the ER a couple of weeks ago for a leaking Santos catheter but states that he currently no longer has an indwelling catheter and he self catheterizes about 3 to 4 times a day to empty his bladder States that he still feels agitated often - he is seeing Peter Landstrom for his psychiatric prescriptions so he is reminded that he needs to discuss his agitation and psych issues with him instead of with me Patient states that he feels okay otherwise He denies any headaches or dizziness Denies any chest pains, no SOB No nausea/vomiting, no abdominal pain No change in bowel habits noted He has not had any follow up labs done recently although he states that he had a bunch of blood tests done at the ER when he was there a couple of weeks ago [facility] Medical History GERD without esophagitis Tubular adenoma of colon (~2018) Personal history of nicotine dependence Constipation Back pain Schizoaffective disorder, bipolar type Anxiety Benign prostatic hyperplasia with lower urinary tract symptoms Pure hypercholesterolemia Thought disorder Bipolar 1 disorder Mood disorder Surgical History History of colonoscopy (~04/2019) History of prostate surgery (~04/2019) History of open reduction and internal fixation (ORIF) procedure (~08/2018) Family History Father Lung cancer BPH (benign prostatic hyperplasia) Mother Dementia Brother Myocardial infarction Other Mental health problem Substance abuse Social History Household Members: None Housing: Assisted Living Facility Housing Other:: [facility]dc Do you presently have visiting nurse or other home services: No Alcohol intake: never Patient Tobacco Use Status: Current everyday Tobacco user Tobacco use type: Cigarette Cigarette Packs Per Day: 1 Cigarettes Per Day: 20.0 Years Smoked: 10 e-Cigarette/Vaping Use: Never Used Second Hand Smoke Exposure: Yes service: No Current occupational status: employed Current occupation: [employer] Sexual orientation: Decline to Answer Cognitive needs: No Hearing needs: No Vision needs: Yes Questionnaire PHQ-9 Over the last 2 weeks, how often have you been bothered by any of the following problems? 1. Little interest or pleasure in doing things: not at all 2. Feeling down, depressed, or hopeless: not at all 3. Trouble falling or staying asleep, or sleeping too much: not at all 4. Feeling tired or having little energy: not at all 5. Poor appetite or overeating: not at all 6. Feeling bad about yourself - or that you are a failure or have let yourself or your family down: not at all 7. Trouble concentrating on things, such as reading the newspaper or watching television: not at all 8. Moving or speaking so slowly that other people could have noticed. Or the opposite - being so fidgety or restless that you have been moving around a lot more than usual: not at all 9. Thoughts that you would be better off or of hurting yourself in some way: not at all Total score: 0 Depression Screening Interpretation: Negative Depression Screening Done: Yes 32702 - PHQ-9 Billing: Yes Source: Developed by Drs. Adolfo Munoz, Michelle Dumont, Gregory Rai and colleagues, with an educational ebenezer from [employer]. Thrive Questionnaire Date Thrive assessed: 08/30/23 I am a: Patient What is your living situation today?: I have a steady place to live Within the past 12 months, did the food you bought not last and you didn't have the money to get more?: Never true Within the past 12 months, did you worry whether your food would run out before you got money to buy more?: Never true Do you have trouble paying for medicines?: No Do you have trouble getting transportation to medical appointments?: No Do you have trouble paying your heating and electricity bill?: No Do you have trouble taking care of your child, family member or friend?: No Do you have trouble with day-to-day activities such as bathing, preparing meals, shopping, managing finances, etc.?: No Are you currently unemployed and looking for a job?: No Are you interested in more education?: No Currently or been in a relationship where the following occur: no concerns reported THRIVE Score: 0 AUDIT C Alcohol Use Questionnaire (AUDIT-C) 1. How often do you have a drink containing alcohol?: Never Total Score: 0 Score Reviewed/Action Taken: Yes JALEESA-7 AMB Questionnaire JALEESA-7 Date JALEESA - 7 assessed: 08/30/23 Feeling nervous, anxious, or on edge: 1 = Several days (on medication) Not being able to stop or control worryin = Not at all Worrying too much about different things: 0 = Not at all Trouble relaxin = Not at all Being so restless that it is hard to sit still: 0 = Not at all Becoming easily annoyed or irritable: 0 = Not at all Feeling afraid as if something awful might happen: 0 = Not at all Total JALEESA-7 score (0-4 normal; 5-9 mild; 10-14 moderate; 15-21 severe): 1 Source: Developed by Drs. Adolfo Munoz, Michelle Dumont, Gregory Rai and colleagues, with an educational ebenezer from [employer]. Review of Systems Const Denies chills, Reports difficulty sleeping (Rx currently helping with his sleep), Denies fatigue, Denies fever(s) and Denies headache(s) ENT Denies dysphagia, Denies dizziness, Denies otalgia, Denies headache(s), Denies neck pain, Denies odynophagia and Denies sore throat Card Denies chest pain, Denies rapid heart rate, Denies irregular heart rhythm, Denies palpitations and Denies dyspnea Resp Denies chest congestion, Denies cough, Denies dyspnea and Denies wheezing GI Denies abdominal pain, Reports constipation (Rx helping lately), Denies dysphagia, Denies heartburn, Denies diarrhea, Denies nausea, Denies odynophagia and Denies vomiting Denies hematuria, Reports difficulty urinating (chronic - still doing self-catheterization regularly), Denies dysuria and Denies urinary incontinence Musc Denies back pain, Denies arthralgias and Denies neck pain Skin/Breast Denies rash Neuro Denies dizziness and Denies headache(s) Psych Reports anxiety and Reports irritability (at times) Endo Denies fatigue and Denies palpitations Aller/Immun Denies wheezing Physical exam (Primary Care) Vital Signs: Last Vital Signs Pulse 71 08/30/23 12:58 BP 110/68 08/30/23 12:58 Pulse Ox 96 08/30/23 12:58 Oxygen Delivery Method Room Air 08/30/23 12:58 BMI result Body Mass Index 22.0 Tobacco/Smoking Status: Tobacco use Status Tobacco use date assessed 08/30/23 08/30/23 13:10 Patient Tobacco Use Status Current everyday Tobacco 08/30/23 12:55 Tobacco use type Cigarette 08/30/23 12:55 e-Cigarette/Vaping Use Never Used 08/30/23 12:55 PHQ-9: PHQ-9 Score PHQ-9: Total score 0 08/30/23 12:55 Depression Screening Interpretation: Negative Thrive Assessment: Date of Thrive Assessment Date Thrive assessed 08/30/23 08/30/23 12:55 Currently or been in a relationship where the following occur: no concerns reported Const General: no acute distress and alert HENMT Ears: TM's normal bilaterally and EAC's normal Throat: Yes posterior oropharynx normal and Yes tonsils normal (no TP congestion) Neck Neck: Yes no lymphadenopathy and Yes supple Thyroid: Thyroid normal Resp Auscultation: clear to auscultation bilaterally, no rales and no wheezes Cardio Rate: regular rate Rhythm: regular rhythm Heart sounds: no murmurs GI Palpation (GI): Soft to palpation and nontender Auscultation: normal bowel sounds General: Yes no CVA tenderness Back/Spine/Pelvis Back: no CVA tenderness Thoracic/Lumbar Spine: No lumbar spinal tenderness Skin Rashes: no rashes Extrem General: Yes no clubbing, cyanosis or edema Assessment and Plan Assessment & Plan (1) Pure hypercholesterolemia: Code(s): E78.00 - Pure hypercholesterolemia, unspecified Plan: Patient is advised that his labs done at the ER a couple of weeks ago mostly came out okay but these are again non-fasting labs and did not include his cholesterol levels - advised that the last time his fasting lipids were done was back in 2020 and he should try to get these done before his next appt Reinforced low cholesterol diet Continue Atorvastatin 10 mg QD Will recheck his labs and fasting lipids in 3 months for follow uo (2) Neurogenic bladder: Code(s): N31.9 - Neuromuscular dysfunction of bladder, unspecified Plan: Continues to require self catheterization multiple times a day to relieve his bladder Continue Bethanecol 10 mg TID Follow up with urology as scheduled - is now going [facility] (3) Benign prostatic hyperplasia with lower urinary tract symptoms: Code(s): N40.1 - Benign prostatic hyperplasia with lower urinary tract symptoms Qualifiers: Lower urinary tract symptom detail: urinary retention Qualified Code(s): N40.1 - Benign prostatic hyperplasia with lower urinary tract symptoms; R33.8 - Other retention of urine Plan: S/P laser prostatectomy by Dr. Sánchez a few years ago (2019) but is frustrated as he feels that his symptoms have not improved at all with surgery and he continues to require self-catheterization several times a day just to relieve his bladder (4) GERD without esophagitis: Code(s): K21.9 - Gastro-esophageal reflux disease without esophagitis Plan: Dietary restrictions reinforced Continue Omeprazole 40 mg QD (5) Constipation: Code(s): K59.00 - Constipation, unspecified Qualifiers: Constipation type: unspecified constipation type Qualified Code(s): K59.00 - Constipation, unspecified Plan: Patient is encouraged again to continue to increase his oral fluids and dietary fiber Continue Senna 8.6 mg 1 to 2 tablets Q HS and Docusate 100 mg BID PRN Also has Miralax but patient does not like to take it consistently - have reminded him that he should be taking Miralax 17 gm daily for it to be effective (6) Anxiety: Code(s): F41.9 - Anxiety disorder, unspecified Plan: Continue Hydroxyzine 10 mg 3 times a day as needed and Clonazepam 0.5 mg daily as needed (7) Schizoaffective disorder, bipolar type: Code(s): F25.0 - Schizoaffective disorder, bipolar type Plan: Continue Tegretol 500 mg twice a day, Aripiprazole 20 mg Q AM, Olanzapine 15 mg Q HS, Quetiapine 25 mg BID PRN and Trazodone 50 mg Q HS PRN Follow-up with Psychiatry as scheduled - see Oskar Eduardo (8) Smoker: Code(s): F17.200 - Nicotine dependence, unspecified, uncomplicated Plan: Counseled again on smoking cessation Patient has been on Chantix for several months with no improvement in his smoking and this was discontinued late last year - states that he continues to smoke regularly even while on the medication, mostly due to his anxiety Plan Follow up in 3 months Orders: Orders Comprehensive Acme. Panel Fast 3 Months E78.00 - Pure hypercholesterolemia, unspecified TSH reflex Free T4 3 Months E78.00 - Pure hypercholesterolemia, unspecified Complete Blood Count Auto Diff 3 Months D64.9 - Anemia, unspecified Lipid Panel 3 Months E78.00 - Pure hypercholesterolemia, unspecified UA CC w/rflx Micro + Cult 3 Months R30.0 - Dysuria Vitamin D 25-OH Total 3 Months E55.9 - Vitamin D deficiency, unspecified Coding Level of Care Code Est Pt Level 4 (02403) Diagnoses Pure hypercholesterolemia E78.00 Neurogenic bladder N31.9 Benign prostatic hyperplasia with urinary retention N40.1; R33.8 Lower urinary tract symptom detail: urinary retention GERD without esophagitis K21.9 Constipation, unspecified constipation type K59.00 Constipation type: unspecified constipation type Anxiety F41.9 Schizoaffective disorder, bipolar type F25.0 Smoker F17.200
[2023-08-30 12:58] VITALS: BP 110/68; PULSE 71; O2SAT 96; BMI 22.0
== END 2023-08-30 13:33 | disposition home or self-care (01) ==
PROVIDERS: PCP Internal Medicine; Visit Provider Internal Medicine
DX: E78.00 Pure hypercholesterolemia, unspecified (principal); N31.9 Neuromuscular dysfunction of bladder, unspecified; F25.0 Schizoaffective disorder, bipolar type; N40.1 Benign prostatic hyperplasia with lower urinary tract symptoms; R33.8 Other retention of urine; K21.9 Gastro-esophageal reflux disease without esophagitis; K59.00 Constipation, unspecified; F41.9 Anxiety disorder, unspecified; F17.200 Nicotine dependence, unspecified, uncomplicated
CPT/HCPCS: 99214

== ENCOUNTER 2024-07-29 12:02 | Emergency (ER) | payer MEDICARE, MEDICAID, SELFPAY ==
[2024-07-29 13:05] VITALS: BP 137/74; PULSE 87; RESP 16; TEMP 36.3; O2SAT 98; BMI 23.0
--- NOTE | 2024-07-29 13:09 | ED_ITS ---
HPI - Male Genitourinary General Chief complaint: Urogenital-Male Stated complaint: schafer check Related Data Home Medications ?Medication ?Instructions ?Recorded ?Confirmed aripiprazole 20 mg tablet 20 mg PO QAM 05/27/22 08/30/23 bethanechol chloride 50 mg tablet 50 mg PO TID 05/27/22 08/30/23 carbamazepine 200 mg tablet 500 mg PO BID 05/27/22 08/30/23 clonazepam 0.5 mg tablet 0.5 mg PO DAILY 05/27/22 08/30/23 hydroxyzine HCl 10 mg tablet 10 mg PO TID PRN Anxiety 05/27/22 08/30/23 quetiapine 25 mg tablet 25 mg PO BID PRN agitation 05/27/22 08/30/23 trazodone 50 mg tablet 50 mg PO BEDTIME PRN insomnia 05/27/22 08/30/23 olanzapine 15 mg tablet 15 mg PO BEDTIME 05/30/23 08/30/23 Previous Rx's ?Medication ?Instructions ?Recorded clotrimazole 1 % topical cream 1 appl topical BID 2 weeks #15 12/30/21 (Lotrimin AF (clotrimazole)) grams docusate sodium 100 mg capsule 100 mg PO BID PRN constipation 30 05/27/22 (Colace) days #60 caps acetaminophen 500 mg tablet 500 mg PO Q4-6H PRN Pain, headache 10/06/22 or fever 30 days #150 tabs loratadine 10 mg tablet 10 mg PO DAILY PRN for allergies 12/08/22 #30 tabs multivitamin-iron 9 mg-folic acid 1 tab PO DAILY #30 tabs 04/11/23 400 mcg-calcium and minerals tablet (High Potency Multivitamin (w-iron)) polyethylene glycol 3350 17 17 g PO DAILY constipation 30 days 09/11/23 gram/dose oral powder (Miralax) #510 grams omeprazole 40 mg capsule,delayed 40 mg PO DAILY 30 days #30 caps 11/10/23 release sennosides 8.6 mg capsule (senna) 17.2 mg (2 x 8.6 mg) PO BEDTIME 11/10/23 constipation 30 days #60 caps atorvastatin 20 mg tablet 20 mg PO DAILY 30 days #30 tabs 07/16/24 Allergies Allergy/AdvReac Type Severity Reaction Status Date / Time No Known Allergies Allergy Unknown UNKNOWN Verified 07/29/24 13:18 [NO KNOWN ALLERGIES] [facility] Past Medical History Medical History GERD without esophagitis Tubular adenoma of colon (~2018) Personal history of nicotine dependence Constipation Back pain Schizoaffective disorder, bipolar type Anxiety Benign prostatic hyperplasia with lower urinary tract symptoms Pure hypercholesterolemia Thought disorder Bipolar 1 disorder Mood disorder Surgical History History of colonoscopy (~04/2019) History of prostate surgery (~04/2019) History of open reduction and internal fixation (ORIF) procedure (~08/2018) Family History Family History Father Lung cancer BPH (benign prostatic hyperplasia) Mother Dementia Brother Myocardial infarction Other Mental health problem Substance abuse Social History Social History Household Members: None Housing: Assisted Living Facility Housing Other:: nursing home Do you presently have visiting nurse or other home services: No Alcohol intake: never Patient Tobacco Use Status: Current everyday Tobacco user Tobacco use type: Cigarette Cigarette Packs Per Day: 1 Cigarettes Per Day: 20.0 Years Smoked: 10 e-Cigarette/Vaping Use: Never Used Second Hand Smoke Exposure: Yes service: No Current occupational status: employed Current occupation: [employer] Sexual orientation: Decline to Answer Cognitive needs: No Hearing needs: No Vision needs: Yes Physical Exam Vital Signs: Vital Signs: Last Vital Signs Temp 97.3 F 07/29/24 13:05 Pulse 87 07/29/24 13:05 Resp 16 07/29/24 13:05 BP 137/74 07/29/24 13:05 Pulse Ox 98 07/29/24 13:05 O2 Del Method Room Air 07/29/24 13:05 BMI result Body Mass Index 23.0 Course Course Course Narrative: This is a Rapid Medical Examination (RME) performed by Addy Regalado PA-C in triage. Full HPI, ROS, assessment and treatment plan per primary provider in the Main ED. 58 yo male hx of BPH, recurrent UTIs, schizoaffective d/o bipolar type, GERD, here for eval of leaking schafer catheter. recently completed abx for UTI. Plan: labs, UA, further eval in back Reevaluation(s) Reevaluation #1: Patient left the emergency department before myself or any of the other clinici ans could review or explain physical exam findings, test results, need or lack there of for additional testing, treatment options, or a treatment plan. Discharge Plan Discharge Clinical Impression: Schafer catheter problem Patient Disposition: Left W/O Completing Treatment Prescriptions: No Action acetaminophen 500 mg tablet 500 mg PO Q4-6H PRN (Reason: Pain, headache or fever) 30 Days Qty: 150 2RF Rx Instructions: NOT TO EXCEED 6 tablets in a 24 hour period loratadine 10 mg tablet 10 mg PO DAILY PRN (Reason: for allergies) Qty: 30 3RF High Potency Multivit (w-iron) 9 mg iron-400 mcg tablet 1 tab PO DAILY Qty: 30 12RF polyethylene glycol 3350 [Miralax] 17 gram/dose powder 17 g PO DAILY 30 Days Qty: 510 4RF omeprazole 40 mg capsule,delayed release(DR/EC) 40 mg PO DAILY 30 Days Qty: 30 0RF senna 8.6 mg capsule 17.2 mg PO BEDTIME 30 Days Qty: 60 2RF atorvastatin 20 mg tablet 20 mg PO DAILY 30 Days Qty: 30 2RF aripiprazole 20 mg tablet 20 mg PO QAM clonazepam 0.5 mg tablet 0.5 mg PO DAILY hydroxyzine HCl 10 mg tablet 10 mg PO TID PRN (Reason: Anxiety) trazodone 50 mg tablet 50 mg PO BEDTIME PRN (Reason: insomnia) bethanechol chloride 50 mg tablet 50 mg PO TID carbamazepine 200 mg tablet 500 mg PO BID Patient Comments: mood stabilizer quetiapine 25 mg tablet 25 mg PO BID PRN (Reason: agitation) clotrimazole [Lotrimin AF (clotrimazole)] 1 % cream 1 appl topical BID 14 Days Qty: 15 0RF docusate sodium [Colace] 100 mg capsule 100 mg PO BID PRN (Reason: constipation) 30 Days Qty: 60 11RF olanzapine 15 mg tablet 15 mg PO BEDTIME Print Language: Luxembourgish
--- NOTE | 2024-07-29 15:26 | PC.NURSE ---
late note: schafer leg lag changed d/t leak in old bag, pt given wipes to clean himself and clean scrub pants and socks d/t urine saturated clothes from leaking leg bag. soiled clothes and shoes placed in bag. pastoral worker approached this staff stating that [facility] workers are requesting that schafer get removed d/t patient requesting that workers touch his genitalia. explained that patient needed to get evaluated by ED provider before any decisions could get made. pt returned to waiting room pending bed assignment.
--- OUTSIDE RECORDS SUMMARY | 2024-07-29 18:30 | XMS_ITS | Encounter Summary ---
Author Organization [facility] Address [address] [place] [address] Care Team Providers Care Dispatcher Electric Power Name Role Phone Dk Rdoriguez MD Primary Care Provider + [phone] Reason for Visit * Reason Comments Illness Patient schizophreniman c, [facility], with multiple complaints I dont feel good . Encounter Details Date Type Department Care Team (Late st Contact Info) Description 07/26/2024 11:51 PM EST - 07/27/2024 1:57 AM EST Emergency [facility] [address] [place] [address] Discharge Disposition: Home or Self Care Social History Tobacco Use Types Packs/Day Years Used Date Smoking Tobacco: Every Day Cigarettes Smokeless Tobacco: Current Sex and Gender Information Value Date Recorded Sex Assigned at Male 07/16/2024 9:22 PM EST Legal Sex Male 12:02 AM EST Gender Identity Male 07/16/2024 9:22 PM EST Sexual Orientation Straight 07/16/2024 9: 22 PM EST documented as of this encounter Last Filed Vital Signs Vital Sign Reading Time Taken Comments Blood Pressure 126/86 07/26/2024 11:54 PM EST Pulse 94 07/26/2024 11:54 PM EST Temperature 36.3 ??C (97.3 ??F) 07/26/2024 11:[address] Respiratory Rate 18 07/26/2024 11:54 PM EST Oxygen Saturation 97% 07/26/2024 11:54 PM EST Inhaled Oxygen Concentration - - Weight 68 kg (150 lb) 07/26/2024 11:54 PM EST Height 175.3 cm (5' 9 ) 07/26/2024 11:54 PM EST Body Mass Index 22.15 07/26/2024 11:54 PM EST documented in this encounter Discharge Disposition Disposition Code Departure Means Destination Home or Self Care documented in this encounter Progress Notes * Cady Blunt RN - 07/26/2024 11:55 PM EST Patient states I don't feel well and my bag is leaking , (patient with chronic schafer catheter and with leg bag which is dry right now), states I've been walking all over for care . Patient from pen[facility]iary. Hx schizophrenia and mulitple visits. documented in this encounter Plan of Treatment Not on file documented as of this encounter Visit Diagnoses Not on filedocumented in this encounter Care Teams Dispatcher Electric Power Relationship Specialty Start Date End Date Dk Rodriguez MD [address] [place] [address] [address] [place], [place] PCP - General Internal Medicine 07/16/24 documented as of this encounter
--- OUTSIDE RECORDS SUMMARY | 2024-07-29 18:30 | XMS_ITS | Encounter Summary ---
Author Organization [facility] Address [address] [place] [address] Care Team Providers Care Director Online Marketing Name Role Phone Patient, Has No Pcp Or Ref Primary Care Provider Unavailable Encounter Details Date Type Department Care Team (Late st Contact Info) Description 01/04/2024 Community Orders [facility] Link [address] [place] [address] Bethany Lozano, BAR CAPTAIN [address] [place] [address] Social History Tobacco Use Types Packs/Day Years Used Date Smoking Tobacco: Never Assessed Sex and Gender Information Value Date Recorded Sex Assigned at Male 12/31/2023 9:23 AM EDT Legal Sex Male 3:41 PM EDT Gender Identity Not on file Sexual Orientation Not on file documented as of this encounter Plan of Treatment Not on file documented as of this encounter Visit Diagnoses Not on filedocumented in this encounter Care Teams Director Online Marketing Relationship Specialty Start Date End Date Patient, Has No Pcp Or Ref DO NOT EDIT THIS RECORD VIA PROVIDER ON THE FLY PCP - General Life Enrichment Assistant 12/30/23 documented as of this encounter
--- OUTSIDE RECORDS SUMMARY | 2024-07-29 18:30 | XMS_ITS | Encounter Summary ---
Author Organization [facility] Address [address] [place] [address] Care Team Providers Care Product Design Engineer Name Role Phone Dk Rodriguez MD Primary Care Provider + [phone] Reason for Visit * Reason Comments Male Problem Hard to pee, having hard time going to the bathroom Encounter Details Date Type Department Care Team (Late st Contact Info) Description 07/16/2024 8:59 PM EST - 07/16/2024 11:27 PM EST Emergency [facility] Emergency [address] [place] [address] Acute on chronic urinary retention (Primary Dx) Discharge Disposition: Home or Self Care Social [...] Sign Reading Time Taken Comments Blood Pressure 129/83 07/16/2024 8:49 PM EST Pulse 97 07/16/2024 8:49 PM EST Temperature 36.4 ??C (97.5 ??F) 07/16/2024 8:49 PM ES T Respiratory Rate 18 07/16/2024 8:49 PM EST Oxygen Saturation 99% 07/16/2024 8:49 PM EST Inhaled Oxygen Concentration - - Weight 68.5 kg (151 lb 0.2 oz) 07/16/2024 8:49 P M EST Height 175.3 cm (5' 9 ) 07/16/2024 8:49 PM EST Body Mass Index 22.3 07/16/2024 8:49 PM EST documented in this encounter Discharge Instructions * Discharge Instructions* DAMARI Crocker - 07/16/2024 11:17 PM EST Urine sample today is consistent with a urinary tract infection We did discuss having blood work done, however you did not wish to proceed with this Follow-up with your primary care provider and urologist as discussed You received a dose of Keflex in the emergency department today Prescription was sent to your pharmacy Take as prescribed Follow up with your primary provider. Call tomorrow for appointment. Return to Emergency Department if symptoms worsen, don't improve, or any other concern. Get well soon! Thank you for coming to the [facility] Emergency Department today. Our entire team works together to provide you with the best care possible. Examination and treatment you received in the emergency department has been rendered on an EMERGENCY basis only. It is not intended to be a substitute for or an effort to provide complete medical care. You should follow-up with your primary care provider. Please report to your physician any new or remaining problems, because it is impossible to recognize and treat all elements of injury or illness in a single emergency department visit. In the event that you're unable to obtain a followup appointment in a timely fashion, OR you are not getting any better, OR you are getting worse, OR you develop any symptoms of concern, please return here immediately for further evaluation. The emergency department is open 24 hours a day, 7 days aweek. Your discharge report is based on information that was available when you were in the emergency department. * Attachments The following attachments cannot be sent through Care Everywhere. * Urinary Retention (Lao) documented in this encounter Medications at Time of Discharge cephalexin (KEFLEX) 500 mg capsule Take 1 capsule (500 mg total) by mouth 4 (four) times a day for 7 days. 28 each 07/16/2024 07/23/2024 documented as of this encounter Ordered Prescriptions Prescription Sig Dispense Quantity Refills Last Filled Start Date End Date cephalexin (KEFLEX) 500 mg capsule Take 1 capsule (500 mg total) by mouth 4 (four) times a day for 7 days. 28 each 07/16/2024 documented in this encounter Discharge Disposition Disposition Code Departure Means Destination Comment s Home or Self Snf documented in this encounter Progress Notes * Loni Damon RN - 07/16/2024 8:46 PM EST Pt is from a long-term. Pt reports that he is supposed to self cath himself but they do not provide him with equipment. Pt reports he hasn't 'self cathed in several weeks.' Reports abd pain/cramps for 2-3 weeks. Pt reports he only 'dribbles' when he uses the bathroom. Pt reports that he is constipated - when asked about his last BM. He is unable to explain, states havent been going good * DAMARI Crocker - 07/16/2024 8:43 PM EST Emergency Medicine Note Patient Name: Balbir Lyon Initial Evaluation: 07/16/2024 : 1965 Patient's PCP: Dk Rodriguez MD Emergency Physician: DAMARI Crocker History of Present Illness Chief Complaint: Chief Complaint Patient presents with Male Problem Hard to pee, having hard time going to the bathroom HPI: 58-year-old male with a history of BPH s/p TURP on tamsulosin, urinary retention with intermittent/chronic catheter use thank you presenting for evaluation of urinary retention. On arrival to [facility] greater than 800 cc urine in his bladder. Santos catheter is to be placed. He is reporting abdominal distention and constipation. Denies fevers or chills. Is unsure when he was last able to urinate normally. ROS: I have performed a ROS with the pertinent positives and negatives documented in the history ofpresent illness. Previous History No past medical history on file. No past surgical history on file. No family history on file. has No Known Allergies. No current facility-administered medications on file prior to encounter. No current outpatient medications on file prior to encounter. Physical Exam ED Triage Vitals [07/16/242048] Temp Heart Rate Resp BP 36.4 ??C (97.5 ??F) 97 18 129/83 SpO2 Temp Source Heart Rate Source Patient Position 99 % Oral Monitor Sitting BP Location FiO2 (%) Left arm -- General: Well-appearing, well nourished, in no acute distress HEENT: PERRL, EOMI, external ears and nose appear unremarkable, airway is patent Neck: Supple, full range of motion Chest: No increased respiratory effort or accessory muscle use Abdomen: Distended and tender Extremities: Normal ROM, No edema Skin: Warm and dry Neuro: Alert and oriented, no focal deficits Results Labs Reviewed URINALYSIS WITH REFLEX MICROSCOPIC AND CULTURE - Abnormal Result Value Specific [place] Urine 1.012 pH, Urine 6.5 Leukocytes, Urine Small (*) Nitrite, Urine Negative Protein, Urine Negative Glucose, Urine Negative Ketones, Urine Negative Urobilinogen, Urine 1.0 Bilirubin, Urine Negative Blood, Urine Negative RBC, Urine 2.1 WBC, Urine 45.0 (*) Squamous Epithelial, Urine 0 Bacteria, Urine Moderate (*) Hyaline Casts, Urine 0.4 CULTURE URINE CBC AND DIFFERENTIAL Narrative: The following orders were created for panel order CBC and differential. Procedure Abnormality Status --------- ------ CBC auto differential[[id number]] Please view results for these tests on the individual orders. BASIC METABOLIC PANEL URINALYSIS WITH REFLEX MICROSCOPIC AND CULTURE Narrative: The following orders were created for panel order Urinalysis with reflex microscopic and culture. Procedure Abnormality Status --------- ------ Urinalysis with reflex ...[[id number]] Abnormal Final result [facility] urine culture tube[[id number]] In process Please view results for these tests on the individual orders. CBC WITH AUTO DIFFERENTIAL Abnormal Labs Reviewed URINALYSIS WITH REFLEX MICROSCOPIC AND CULTURE - Abnormal; Notable for the following components: Result Value Leukocytes, Urine Small (*) WBC, Urine 45.0 (*) Bacteria, Urine Moderate (*) All other components within normal limits No orders to display I have discussed the incidental/abnormal imaging and/or lab abnormalities with the patient and haveinstructed them the need for further evaluation and workup with their primary care doctor. I have provided the patient with a paper copy of the abnormality. The laboratory results, imaging results and other diagnostic exam results were reviewed in the EMR. EKG Interpretation Critical Care Time None ? Medical Decision Making Medications cephalexin (KEFLEX) capsule 500 mg (has no administration in time range) ED Course as of 07/16/242316 Tue Jul 16, 20242311 UA is positive for urinary tract infection. Will be given a gram of Rocephin. Lab still pending. [LQ] 2313 RN advised that patient is refusing blood work. He simply wants have a leg bag placed and be discharged. He will be given p.o. antibiotics. Have instructed him to follow-up with his primary physician. Strict return precautions discussed. [LQ] ED Course User Index [LQ] DAMARI Crocker Clinical Impressions as of 07/16/242316 Acute on chronic urinary retention 07/16/2024 9:21 PM patient seen and evaluated, vitals reviewed, lab work, urinalysis are pending. Santos catheter to be placed for bladder scan greater than 800 cc on arrival to emergency department. Will evaluate for cystitis, HOMA, pyelonephritis. Procedures Procedures Diagnosis 1. Acute on chronic urinary retention Disposition Discharge ED Prescriptions Medication Sig Dispense Start Date End Date Auth. Provider cephalexin (KEFLEX) 500 mg capsule Take 1 capsule (500 mg total) by mouth 4 (four) times a day for 7 days. 28 each 07/16/2024 07/23/2024 DAMARI Crocker Physician Attestation DAMARI Crocker 07/16/242120 DAMARI Crocker 07/16/242315 DAMARI Crocker 07/16/242316 Cosigned by Joaquin Escobar MD at 07/16/2024 11:23 PM EST Associated attestation - Joaquin Escobar MD - 07/16/2024 11:23 PM EST I agree with the Nurse practitioner's/Physician syrup mixer assistant's note and plan by DAMARI Crocker dated 07/16/2024 which I have reviewed and edited where appropriate. Joaquin Escobar MD 07/16/24 11:23 PM EST documented in this encounter Plan of Treatment Not on file documented as of this encounter Procedures Procedure Name Priority Date/Time Associated Diagnosis Comments URINALYSIS WITH REFLEX MICROSCOPIC AND CULTURE STAT 07/16/2024 9:39 PM EST [facility] URINE CULTURE TUBE STAT 07/16/2024 9:39 PM EST URINALYSIS WITH REFLEX MICROSCOPIC AND CULTURE STAT 07/16/2024 9:39 PM EST CULTURE URINE STAT 07/16/2024 9:39 PM EST documented in this encounter Results * (ABNORMAL) Culture urine (07/16/2024 9:39 PM EST) Pathologist [facility] Culture, Urine >100,000 CFU/mL Streptococcus viridans group(A) 07/18/2024 11:28 AM EST [facility] Comment: Susceptibility testing not routinely performed. ??If further therapeutic information is required, please consult an infectious disease specialist. The organism value for this result has been updated. These results have been appended to the previously preliminary verified report. Urine Urine specimen obtained by clean catch procedure / Unknown Non-blood Collection / Unknown 07/16/2024 9:39 PM EST 07/16/2024 10:22 PM EST us [facility] MICROBIOLOGY - GENERAL ORDE PABLO Final Result [facility] [address] [place] [address], [place] [phone] * [facility] urine culture tube (07/16/2024 9:39 PM EST) Extra Tube Hold for add-ons. 07/17/2024 12:01 AM [facility] Comment:Auto resulted. Urine Urine specimen obtained by clean catch procedure / Unknown Non-blood Collection / Unknown 07/16/2024 9:39 PM EST 07/16/2024 10:13 PM EST us [facility] URINE ORDERABLES Final Resu lt [facility] [address] [place] [address], [place] [phone] * (ABNORMAL) Urinalysis with reflex microscopic and culture (07/16/2024 9:39 PM EST) Specific [place] Urine 1.012 1.003 - 1.030 LAB URINALYSIS - AUTOMATED METHOD 07/16/2024 10:22 PM [facility] pH, Urine 6.5 5.0 - 8.0 pH LAB URINALYSIS - AUTOMATED METHOD 07/16/2024 10:22 PM [facility] Leukocytes, Urine Small(A) Negative LAB URINALYSIS - AUTOMATED METHOD 07/16/2024 10:22 PM [facility] Nitrite, Urine Negative Negative LAB URINALYSIS - AUTOMATED METHOD 07/16/2024 10:22 PM [facility] Protein, Urine Negative <=Trace mg/dL LAB URINALYSIS - AUTOMATED METHOD 07/16/2024 10:22 PM [facility] Glucose, Urine Negative Negative mg/dL LAB URINALYSIS - AUTOMATED METHOD 07/16/2024 10:22 PM [facility] Ketones, Urine Negative Negative mg/dL LAB URINALYSIS - AUTOMATED METHOD 07/16/2024 10:22 PM [facility] Urobilinogen , Urine 1.0 0.2 - 1.0 mg/dL LAB URINALYSIS - AUTOMATED METHOD 07/16/2024 10:22 PM [facility] Bilirubin, Urine Negative Negative LAB URINALYSIS - AUTOMATED METHOD 07/16/2024 10:22 PM [facility] Blood, Urine Negative Negative LAB URINALYSIS - AUTOMATED METHOD 07/16/2024 10:22 PM [facility] RBC, Urine 2.1 0 - 4 /HPF LAB URINALYSIS - AUTOMATED METHOD 07/16/2024 10:22 PM [facility] WBC, Urine 45.0(H) 0 - 4 /HPF LAB URINALYSIS - AUTOMATED METHOD 07/16/2024 10:22 PM [facility] Squamous Epithelial, Urine 0 0 - 60 /LPF LAB URINALYSIS - AUTOMATED METHOD 07/16/2024 10:22 PM [facility] Bacteria, Urine Moderate(A) Negative /HPF LAB URINALYSIS - AUTOMATED METHOD 07/16/2024 10:22 PM [facility] Hyaline Casts, Urine 0.4 0 - 3 /LPF LAB URINALYSIS - AUTOMATED METHOD 07/16/2024 10:22 PM [facility] Urine Urine specimen obtained by clean catch procedure / Unknown Non-blood Collection / Unknown 07/16/2024 9:39 PM EST 07/16/2024 10:12 PM EST us [facility] URINE ORDERABLES Final Resu lt [facility] [address] [place] [address], documented in this encounter Visit Diagnoses Diagnosis Acute on chronic urinary retention- Primary documented in this encounter Administered Medications Inactive Administered Medications - up to 3 most recent administrations Medication Order MAR Action Action Date Dose Rate Site cephalexin (KEFLEX) capsule 500 mg 500 mg, oral, Once, On Mon07/16/24 at 2330, For 1 dose, Indication: Urinary Tract/Genitourinary Given 07/16/2024 11:24 PM EST 500 mg documented in this encounter Active and Recently Administered Medications Times are shown in EST. Scheduled Medication Order 07/14/2024 07/15/2024 07/16/2024 cephalexin (KEFLEX) capsule 500 mg (COMPLETED) 500 mg, oral, Once, On Mon07/16/24 at 2330, For 1 dose, Indication: Urinary Tract/Genitourinary 2324 (Given - Provid er: Haile Simeno RN) documented in this encounter Orders Medications Ordered That Silas ht Not Have Been Administered Count Last Ordered Date First Ordered Date cefTRIAXone (ROCEPHIN) 1 g i n sterile water 10 mL IV syringe 1 07/16/2024 Nursing Count Last Ordered Date First Orde red Date INSERT INDWELLING CATHETER 1 07/16/2024 documented in this encounter Care Teams Product Design Engineer Relationship Specialty Start Date End Date Dk Rodriguez MD [address] [place] [address] Dr [address] COY Lucero PCP - General Internal Medicine 07/16/24 documented as of this encounter
--- OUTSIDE RECORDS SUMMARY | 2024-07-29 18:30 | XMS_ITS | Referral Summary ---
Author Organization [facility] Address [address] [place] [address] Care Team Providers Care Deputy Sheriff Name Role Phone Patient, Has No Pcp Or Ref Primary Care Provider Unavailable Allergies No known active allergies Medications ARIPiprazole (ABILIFY) 20 mg tablet Take 20 mg by mouth once a day. Active carBAMazepine (TEGretol) 200 mg tablet Take 500 mg by mouth every 12 hours. Active OLANZapine (ZyPREXA) 15 mg tablet Take 15 mg by mouth nightly. Active pantoprazole DR (PROTONIX) 40 mg tablet Take 40 mg by mouth nightly. Active QUEtiapine (SEROquel) 25 mg tablet Take 25 mg by mouth 2 times a day. Active nicotine (NICODERM CQ) 7 mg/[address] 1 patch on the skin daily as needed (nicotine replacement). Active simvastatin (ZOCOR) 20 mg tablet Take 20 mg by mouth nightly. Active tamsulosin (FLOMAX) 0.4 mg capsule Take 0.4 mg by mouth once a day. Active acetaminophen (TYLENOL) 325 mg tablet Take 650 mg by mouth every 6 hours as needed for pain. Active aluminum-magnes ium hydroxide-simet hicone (MAALOX PLUS) 200-200-20 mg/5 mL suspension Take 30 mL by mouth every 4 hours as needed for indigestion or heartburn. Active polyethylene glycol 3350 (MIRALAX) 17 gram packet Take 17 g by mouth daily as needed for constipation. Mix powder in 4 to 8 oz of water, juice, coffee, or tea prior to administration. Active albuterol (PROAIR HFA,VENTOLIN HFA) 90 mcg inhaler Inhale 2 puffs by mouth every 4 hours as needed for wheezing or shortness of breath. Use with spacer. Active Active Problems Problem Noted Date Diagnosed Date Hypo-osmolar hyponatremia 12/30/2023 Assessment & Plan (01/03/2024 2:32 PM EDT): Presents from [facility] in the setting of urinary retention and outpatient labs showing sodium 123. On arrival to ED patient had Schafer placed. BMP showed sodium 122 with normal creatinine. Urine osm obtained 182, urine sodium 27, urinalysis unremarkable. On exam patient is euvolemic. 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 Currently at 126 so has only improved by 4 after 3 days. Fluid restriction reduced from 2L to 1.5L BMP with Na q12h Assessment & Plan (01/03/2024 10:49 AM EDT): Presented from [facility] with hyponatremia (initially 123). Also had dizziness/lightheadedness, fatigue, and bladder distension. Found to have hypoosmolar hyponatremia, most consistent with polydipsia based on improvement with fluid restriction (presented with sodium 122 mmol/L and after 7 hours overcorrected to 130 mmol/L with fluid restriction only). Initial urine osm 182, urine Na 27. UA WNL. US 12/30 with no hydronephrosis, diffuse bladder wall thickening (c/w known BPH). He is on multiple psychotropic medications which are likely contributing to polydipsia. Also possibly related to low solute intake at baseline. Less likely due to SIADH because urine Na not significantly elevated at presentation. With fluid restriction, continues with high urine output (3-4 L daily) with Na slowly increasing -131 mmol/L (01/02 6am), up from 126 mmol/L 01/01 6am. Repeat urine studies 01/01 with urine Osm 206, urine Na 29. - Recommend continued fluid restriction, ideally < 2 L daily - Pts presenting with Na of over 120 mmol/L are generally low risk for ODS - Recommend avoiding DDAVP - If Na overcorrecting, pls give only free water - BMP q8h - Continue Ensures to increase osmolar intake - If recurrent hyponatremia, can reassess carbamazepine dosing (most likely medication contributing to low Na) Assessment & Plan (01/02/2024 11:43 AM EDT): Presents from [facility] in the setting of urinary retention and outpatient labs showing sodium 123. On arrival to ED patient had Schafer placed. BMP showed sodium 122 with normal creatinine. Urine osm obtained 182, urine sodium 27, urinalysis unremarkable. On exam patient is euvolemic. 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 Currently at 126 so has only improved by 4 after 3 days. Fluid restriction reduced from 2L to 1.5L BMP with Na q12h Schizophrenia 12/30/2023 Assessment & Plan (01/03/2024 2:32 PM EDT): Home medications: aripiprazole 20 mg daily, carbamazepine 500 mg twice daily, Zyprexa 15 mg nightly, Seroquel 25 mg twice daily Presents from [facility] with documented history of schizophrenia. Continue home aripiprazole 20mg daily Continue home carbamazepine 500 mg twice daily Continue home Zyprexa 15 mg nightly Continue home Seroquel 25 mg twice daily Consider psychiatry consult if concern that antipsychotic medications are causing SIADH Patient presents from [facility], requires constant observation Assessment & Plan (01/02/2024 11:43 AM EDT): Home medications: aripiprazole 20 mg daily, carbamazepine 500 mg twice daily, Zyprexa 15 mg nightly, Seroquel 25 mg twice daily Presents from [facility] unit with documented history of schizophrenia. Continue home aripiprazole 20mg daily Continue home carbamazepine 500 mg twice daily Continue home Zyprexa 15 mg nightly Continue home Seroquel 25 mg twice daily Consider psychiatry consult if concern that antipsychotic medications are causing SIADH Patient presents from [facility], requires constant observation BPH (benign prostatic hyperplasia) 12/30/2023 Assessment & Plan (01/03/2024 2:33 PM EDT): Paperwork from the [facility] indicates history of BPH with prior need for intermittent catheterization requiring urology evaluation in the past, records not available in our system). Per documentation from [facility] patient has seen urology at [facility] in [place]. He was started on Flomax outpatient. In the ED a Schafer was placed. No evidence of HOMA on initial BMP. Obtain kidney and bladder US to evaluate for any structural etiology of obstruction Continue tamsulosin 0.4mg nightly Will need urology follow-up outpatient Assessment & Plan (01/03/2024 10:48 AM EDT): Chronic BPH with intermittent self-catheterization. Follows with urology outpatient. On Flomax 0.4 mg nightly. Schafer placed in ED. US 12/30 with no hydronephrosis, diffuse bladder wall thickening (c/w known BPH). - Continue tamsulosin 0.4 mg nightly - Follow-up with urology outpatient - Ok to remove schafer and continue self-cath as needed Assessment & Plan (01/02/2024 11:43 AM EDT): Paperwork from the [facility] indicates history of BPH with prior need for intermittent catheterization requiring urology evaluation in the past, records not available in our system). Per documentation from [facility] patient has seen urology at [facility] in [place]. He was started on Flomax outpatient. In the ED a Schafer was placed. No evidence of HOMA on initial BMP. Obtain kidney and bladder US to evaluate for any structural etiology of obstruction Continue tamsulosin 0.4mg nightly Will need urology follow-up outpatient GERD (gastroesophageal reflux disease) Assessment & Plan (01/03/2024 2:33 PM EDT): Home medications: pantoprazole 40mg daily Patient with history of GERD managed at home on aforementioned medications. Continue home pantoprazole 40mg daily Assessment & Plan (01/02/2024 11:43 AM EDT): Home medications: pantoprazole 40mg daily Patient with history of GERD managed at home on aforementioned medications. Continue home pantoprazole 40mg daily Hyperlipidemia 12/30/2023 Assessment & Plan (01/03/2024 2:33 PM EDT): Home medications: simvastatin 20mg nightly Patient with history of hyperlipidemia managed at home on aforementioned medications. Continue home simvastatin 20mg nightly Assessment & Plan (01/02/2024 11:43 AM EDT): Home medications: simvastatin 20mg nightly Patient with history of hyperlipidemia managed at home on aforementioned medications. Continue home simvastatin 20mg nightly Tobacco dependence 12/30/2023 Assessment & Plan (01/03/2024 2:33 PM EDT): Nicotine patch 7mg/24h daily Assessment & Plan (01/02/2024 11:43 AM EDT): Nicotine patch 7mg/24h daily Anemia 12/30/2023 Assessment & Plan (01/01/2024 5:22 PM EDT): Chronic mild anemia. Hgb 12 at presentation. No indication for EPO at this time. Assessment & Plan (12/30/2023 8:28 PM EDT): Home medications: none Patient with history of anemia, managed on aforementioned medications. CBC daily Vitamin B12 and folate Iron studies Social History Tobacco Use Types Packs/Day Years Used Date Smoking Tobacco: Never Smokeless Tobacco: Never Sex and Gender Information Value Date Recorded Sex Assigned at Male 12/31/2023 9:23 AM EDT Legal Sex Male 3:41 PM EDT Gender Identity Not on file Sexual Orientation Not on file Last Filed Vital Signs Vital Sign Reading Time Taken Comments Blood Pressure 123/75 01/29/2024 8:18 AM EDT Pulse 76 01/29/2024 8:18 AM EDT Temperature 36.8 ??C (98.2 ??F) 01/03/2024 2:09 PM ED T Respiratory Rate 18 01/03/2024 2:09 PM EDT Oxygen Saturation 96% 01/03/2024 2:09 PM EDT Inhaled Oxygen Concentration - - Weight 64.5 kg (142 lb 3.2 oz) 01/03/2024 6:06 A M EDT Height 172.7 cm (5' 8 ) 12/30/2023 4:01 PM EDT Body Mass Index 21.62 12/30/2023 4:01 PM EDT Plan of Treatment Not on file Insurance [facility] MEDICARE [facility] Advance Directives * Full Code (Latest Code Status on File) Date Activated Date Inactivated Comments 12/30/2023 7:22 PM 01/03/2024 8:48 PM * Presumed Full Code Date Activated Date Inactivated Comments 12/30/2023 7:00 PM 12/30/2023 7:22 PM Care Teams Deputy Sheriff Relationship Specialty Start Date End Date Patient, Has No Pcp Or Ref DO NOT EDIT THIS RECORD VIA PROVIDER ON THE FLY PCP - General Back Office Medical Assistant 12/30/23
--- OUTSIDE RECORDS SUMMARY | 2024-07-29 18:30 | XMS_ITS | Clinical Summary ---
Author Organization [facility] Address [address] [place] [address] Care Team Providers Care Levi Maker Name Role Phone Patient, Has No Pcp [...] Plan (01/03/2024 2:32 PM EDT): Presents from [facility] in the setting of urinary retention [...] Plan (01/03/2024 10:49 AM EDT): Presented from [facility] with hyponatremia (initially 123). Also had [...] Plan (01/02/2024 11:43 AM EDT): Presents from [facility] in the setting of urinary retention [...] Seroquel 25 mg twice daily Presents from [facility] unit with documented history of schizophrenia. 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 Per documentation from [facility] patient has seen urology at [facility] in [place]. He was started on Flomax outpatient. In [...] (01/02/2024 11:43 AM EDT): Paperwork from the [facility] indicates history of BPH with prior need for intermittent catheterization requiring urology evaluation in the past, records not available in our system). Per documentation from [facility] patient has seen urology at [facility] in [place]. He was started on Flomax outpatient. In [...] 12/30/2023 4:01 PM EDT Plan of Treatment Health Maintenance Due Date Last Done Comments Cologuard 1965 Colon Cancer Screening 1965 Colonoscopy 1965 FOBT / Fit Test 1965 HIV Screening 1965 Hepatitis C Screening 1965 Sigmoidoscopy 1965 Hepatitis B Vaccines (1 of 3 - 19+ 3-dose series) 1984 Zoster Vaccines (1 of 2) 12/15/2015 Pneumococcal Vaccine: 50+ Ye ars (2 of 2 - PCV) 06/27/2016 06/27/2015, 09/30/2012 COVID-19 Vaccine (5 - 2023-2 5 season) 2024 03/17/2023, 03/31/2021, 07/23/2020, Additional history exists Influenza Vaccine (#1) 2024 , 04/11/2018, 02/17/2017, Additional history exists Alcohol/Substance Use Screening 06/05/2024 Depression Screening and Follow-Up 06/05/2024 Social Drivers of Health Tammy ual Screening 06/05/2024 DTaP,Tdap,and Td Vaccines (3 - Td or Tdap) 02/28/2029 02/28/2019, 03/22/2014, 03/22/2014, Additional history exists RSV Vaccine (60+ years old a nd patients) (1 - 1-dose 75+ series) 2040 Insurance [facility] MEDICARE [facility] Advance Directives * Full Code (Latest Code Status on File) Date Activated Date Inactivated Comments 12/30/2023 7:22 PM 01/03/2024 8:48 PM * Presumed Full Code Date Activated Date Inactivated Comments 12/30/2023 7:00 PM 12/30/2023 7:22 PM Care Teams Levi Maker Relationship Specialty Start Date End Date Patient, Has No Pcp Or Ref DO NOT EDIT THIS RECORD VIA PROVIDER ON THE FLY PCP - General Ward Clerk 12/30/23
--- OUTSIDE RECORDS SUMMARY | 2024-07-29 18:30 | XMS_ITS | Encounter Summary ---
Author Organization [facility] Address [address] [place] [address] Care Team Providers Care Rv Mechanic Name Role Phone Dk Rodriguez MD Primary Care Provider + [phone] Reason for Visit * Reason Comments Urinary Retention Schafer cath issues - leaking. Pt wants it removed. Wants to go back to self catheterization. Encounter Details Date Type Department Care Team (Late st Contact Info) Description 07/29/2024 1:53 AM EST - 07/29/2024 7:02 AM EST Emergency [facility] [address] [place] [id number] Discharge Disposition: Home or Self Care Social History Tobacco Use Types Packs/Day Years Used Date Smoking Tobacco: Every Day Cigarettes Smokeless Tobacco: Current Alcohol Use Standard Drinks/Week Comments Not Currently 0 (1 standard drink = 0.6 oz pur e alcohol) Sex and Gender Information Value Date Recorded Sex Assigned at Male 07/16/2024 9:22 PM EST Legal Sex Male 12:02 AM EST Gender Identity Male 07/16/2024 9:22 PM EST Sexual Orientation Straight 07/16/2024 9: 22 PM EST documented as of this encounter Last Filed Vital Signs Vital Sign Reading Time Taken Comments Blood Pressure 103/76 07/29/2024 2:20 AM EST Pulse 80 07/29/2024 2:20 AM EST Temperature 36.4 ??C (97.5 ??F) 07/29/2024 2:20 AM ES T Respiratory Rate 18 07/29/2024 2:20 AM EST Oxygen Saturation 98% 07/29/2024 2:20 AM EST Inhaled Oxygen Concentration - - Weight 70.8 kg (156 lb) 07/29/2024 2:20 AM EST Height 175.3 cm (5' 9 ) 07/29/2024 2:20 AM EST Body Mass Index 23.04 07/29/2024 2:20 AM EST documented in this encounter Discharge Disposition Disposition Code Departure Means Destination Home or Self Care documented in this encounter Progress Notes * Renetta Logan RN - 07/29/2024 2:21 AM EST Stated that he has a lot of pain in his abdomen from his schafer catheter. Says that it is leaking all over him and both issues are worse with walking. States he doesn't think he needs the schafer anymore and has not had any follow up appointments with urology. documented in this encounter Plan of Treatment Not on file documented as of this encounter Visit Diagnoses Not on filedocumented in this encounter Care Teams Rv Mechanic Relationship Specialty Start Date End Date Dk Rodriguez MD [address] [place] [address] Dr [address] [place] PCP - General Internal Medicine 07/16/24 documented as of this encounter
--- OUTSIDE RECORDS SUMMARY | 2024-07-29 18:30 | XMS_ITS | Clinical Summary ---
Author Organization [facility] Address [address] [place] [address] Phone Care Team Providers Care Crown Buffer Name Role Phone Dk Rodriguez MD Primary Care Provider [phone] Allergies No known active allergies Medications cephalexin (KEFLEX) 500 mg capsule Take 1 capsule (500 mg total) by mouth 4 (four) times a day for 7 days. 28 each 07/16/2024 07/23/19 25 Encounters Date Type Department Care Team Description 07/29/2024 1:53 AM EST - 07/29/2024 7:02 AM [facility] Emergency [address] [place] [phone] Discharge Disposition: Home or Self Care 07/26/2024 11:51 PM EST - 07/27/2024 1:57 AM [facility] Emergency [address] [place] [phone] Discharge Disposition: Home or Self Care 07/20/2024 9:18 PM EST - 07/21/2024 1:27 AM [facility] Emergency [address] [place] [phone] Discharge Disposition: Home or Self Care 07/16/2024 8:59 PM EST - 07/16/2024 11:27 PM [facility] Emergency [address] [place] [phone] Acute on chronic urinary retention (Primary Dx) Discharge Disposition: Home or Self Care from Last 3 Months Social History Tobacco Use Types Packs/Day Years Used Date Smoking Tobacco: Every Day Cigarettes Smokeless Tobacco: Current Tobacco Cessation:Ready to Q uit: Not Asked; Counseling Given: Not Answered Alcohol Use Standard Drinks/Week Comments Not Currently 0 (1 standard drink = 0.6 oz pur e alcohol) Sex and Gender Information Value Date Recorded Sex Assigned at Male 07/16/2024 9:22 PM EST Legal Sex Male 12:02 AM EST Gender Identity Male 07/16/2024 9:22 PM EST Sexual Orientation Straight 07/16/2024 9: 22 PM EST Obstetrics History Last Filed Vital Signs Vital Sign Reading [...] Mass Index 23.04 07/29/2024 2:20 AM EST Plan of Treatment Health Maintenance Due Date Last Done Comments Hepatitis A Vaccines (1 of 2 - Risk 2-dose series) 1984 Hepatitis B Vaccines (1 of 3 - 19+ 3-dose series) 1984 Zoster Vaccines (1 of 2) 12/15/2015 Pneumococcal Vaccine: 50+ Years (2 of 2 - PCV) 06/27/2016 06/27/2015, 09/30/2012 Pneumococcal Vaccine: Pediatrics (0 to 5 Years) and At-Risk Patients (6 to 64 Years) (2 of 2 - PCV) 06/27/2016 06/27/2015, 09/30/2012 Cholesterol Screening (Lipid Panel) 05/08/2022 Colorectal Cancer Screening: Colonoscopy 05/08/2022 Depression Screening 05/08/2022 HIV Screening 05/08/2022 Hepatitis C Screening 05/08/2022 Medicare Annual Wellness Visit 05/08/2022 Social Influencers of Health Screening 05/08/2022 COVID-19 Vaccine ( season) 2024 03/17/2023, 03/31/2021, 07/23/2020, Additional history exists Influenza Vaccine (#1) 2024 , 04/11/2018, 02/17/2017, Additional history exists DTaP,Tdap,and Td Vaccines (5 - Td or Tdap) 02/28/2029 02/28/2019, 03/22/2014, 03/22/2014, Additional history exists HIB Vaccines Aged Out No longer eligi ble based on patient's age to complete this topic HPV Vaccines Aged Out No longer eligi ble based on patient's age to complete this topic IPV Vaccines Aged Out No longer eligi ble based on patient's age to complete this topic MMR Vaccines Aged Out No longer eligi ble based on patient's age to complete this topic Meningococcal ACWY Vaccine Aged Out N o longer eligible based on patient's age to complete this topic Meningococcal B Vacine Aged Out No lo nger eligible based on patient's age to complete this topic RSV Immunization Patients Under 20 months Aged Out No longer eligible based on patient's age to complete this topic Varicella Vaccines Aged Out No longer eligible based on patient's age to complete this topic Procedures Procedure Name Priority Date/Time Associated Diagnosis Comments [facility] URINE CULTURE TUBE STAT 07/20/2024 9:55 PM EST URINALYSIS WITH REFLEX MICROSCOPIC AND CULTURE STAT 07/20/2024 9:55 PM EST URINALYSIS WITH REFLEX MICROSCOPIC AND CULTURE STAT 07/20/2024 9:55 PM EST CULTURE URINE STAT 07/20/2024 9:55 PM EST CBC WITH AUTO DIFFERENTIAL STAT 07/20/2024 9:52 PM EST LIPASE STAT 07/20/2024 9:52 PM EST COMPREHENSIVE METABOLIC PANEL STAT 07/20/2024 9:52 PM EST CBC AND DIFFERENTIAL STAT 07/20/2024 9:52 PM EST [place] URINE CULTURE TUBE STAT 07/16/2024 9:39 PM EST URINALYSIS WITH REFLEX MICROSCOPIC AND CULTURE STAT 07/16/2024 9:39 PM EST URINALYSIS WITH REFLEX MICROSCOPIC AND CULTURE STAT 07/16/2024 9:39 PM EST CULTURE URINE STAT 07/16/2024 9:39 PM EST from Last 3 Months Results * (ABNORMAL) Urinalysis with reflex microscopic and culture (07/20/2024 9:55 PM EST) Only the most recent of2 resultswithin the time period is included. Specific [place] Urine 1.012 1.003 - 1.030 LAB URINALYSIS - AUTOMATED METHOD 07/20/2024 10:09 PM [facility] pH, Urine 6.0 5.0 - 8.0 pH LAB URINALYSIS - AUTOMATED METHOD 07/20/2024 10:09 PM [facility] Leukocytes, Urine Trace(A) Negative LAB URINALYSIS - AUTOMATED METHOD 07/20/2024 10:09 PM [facility] Nitrite, Urine Negative Negative LAB URINALYSIS - AUTOMATED METHOD 07/20/2024 10:09 PM [facility] Protein, Urine 100(A) <=Trace mg/dL LAB URINALYSIS - AUTOMATED METHOD 07/20/2024 10:09 PM [facility] Glucose, Urine Negative Negative mg/dL LAB URINALYSIS - AUTOMATED METHOD 07/20/2024 10:09 PM [facility] Ketones, Urine Negative Negative mg/dL LAB URINALYSIS - AUTOMATED METHOD 07/20/2024 10:09 PM [facility] Urobilinogen , Urine 0.2 0.2 - 1.0 mg/dL LAB URINALYSIS - AUTOMATED METHOD 07/20/2024 10:09 PM [facility] Bilirubin, Urine Negative Negative LAB URINALYSIS - AUTOMATED METHOD 07/20/2024 10:09 PM [facility] Blood, Urine Moderate(A) Negative LAB URINALYSIS - AUTOMATED METHOD 07/20/2024 10:09 PM [facility] RBC, Urine 24.6(H) 0 - 4 /HPF LAB URINALYSIS - AUTOMATED METHOD 07/20/2024 10:09 PM [facility] WBC, Urine 9.1(H) 0 - 4 /HPF LAB URINALYSIS - AUTOMATED METHOD 07/20/2024 10:09 PM [facility] Squamous Epithelial, Urine 43 0 - 60 /LPF LAB URINALYSIS - AUTOMATED METHOD 07/20/2024 10:09 PM [facility] Bacteria, Urine Negative Negative /HPF LAB URINALYSIS - AUTOMATED METHOD 07/20/2024 10:09 PM [facility] Hyaline Casts, Urine 3.6(H) 0 - 3 /LPF LAB URINALYSIS - AUTOMATED METHOD 07/20/2024 10:09 PM [facility] Urine Urine specimen obtained by clean catch procedure / Unknown Non-blood Collection / Unknown 07/20/2024 9:55 PM EST 07/20/2024 10:03 PM EST us Henri Hernandez MD LAB URINE ORDERABLES Sirisha lowry Result [facility] [address] [place] [address], * [place] urine culture tube (07/20/2024 9:55 PM EST) Only the most recent of2 resultswithin the time period is included. Extra Tube Hold for add-ons. 07/21/2024 12:01 AM [facility] Comment:Auto resulted. Urine Urine specimen obtained by clean catch procedure / Unknown Non-blood Collection / Unknown 07/20/2024 9:55 PM EST 07/20/2024 10:03 PM EST us Henri Hernandez MD LAB URINE ORDERABLES Sirisha l Result Performing Organization Address [facility]/ZIP Co de Phone Number [facility] [address] [place] [address], [place] [phone] * Culture urine (07/20/2024 9:55 PM EST) Only the most recent of2 resultswithin the time period is included. [facility] Culture, Urine No growth 07/21/2024 1:19 PM [facility] Urine Urine specimen obtained by clean catch procedure / Unknown Non-blood Collection / Unknown 07/20/2024 9:55 PM EST 07/20/2024 10:09 PM EST Henri Hernandez MD LAB MICROBIOLOGY - GENERA L ORDERABLES Final Result Performing Organization Address [facility] de Phone Number [facility] [address] [place] [address], [place] [phone] * CBC auto differential (07/20/2024 9:52 PM EST) [facility] WBC 7.9 4.8 - 10.8 K/mcL LAB HEMETOLOGY METHOD 07/20/2024 10:06 PM [facility] RBC 4.60 4.50 - 5.50 M/mcL LAB HEMETOLOGY METHOD 07/20/2024 10:06 PM [facility] Hemoglobin 14.2 13.5 - 17.5 g/dL LAB HEMETOLOGY METHOD 07/20/2024 10:06 PM [facility] Hematocrit 42.9 42.0 - 54.0 % LAB HEMETOLOGY METHOD 07/20/2024 10:06 PM [facility] MCV 93.9 79.0 - 98.0 FL LAB HEMETOLOGY METHOD 07/20/2024 10:06 PM [facility] MCH 31.1 27.0 - 32.0 pcg LAB HEMETOLOGY METHOD 07/20/2024 10:06 PM [facility] MCHC 33.1 32.0 - 37.0 g/dL LAB HEMETOLOGY METHOD 07/20/2024 10:06 PM [facility] RDW 14.6 11.0 - 15.0 % LAB HEMETOLOGY METHOD 07/20/2024 10:06 PM [facility] Platelets 188 130 - 400 K/mcL LAB HEMETOLOGY METHOD 07/20/2024 10:06 PM [facility] MPV 9.6 7.0 - 11.0 FL LAB HEMETOLOGY METHOD 07/20/2024 10:06 PM [facility] NRBC 0.0 <1.0 % LAB HEMETOLOGY METHOD 07/20/2024 10:06 PM [facility] NRBC Absolute 0.00 <0.10 K/mcL LAB HEMETOLOGY METHOD 07/20/2024 10:06 PM [facility] Neutrophils Relative 57.9 % LAB HEMETOLOGY METHOD 07/20/2024 10:06 PM [facility] Lymphocytes Relative 26.6 % LAB HEMETOLOGY METHOD 07/20/2024 10:06 PM [facility] Monocytes Relative 11.4 % LAB HEMETOLOGY METHOD 07/20/2024 10:06 PM [facility] Eosinophils Relative 2.8 % LAB HEMETOLOGY METHOD 07/20/2024 10:06 PM [facility] Basophils Relative 0.9 % LAB HEMETOLOGY METHOD 07/20/2024 10:06 PM [facility] Immature Granulocytes Relative 0.4 % LAB HEMETOLOGY METHOD 07/20/2024 10:06 PM [facility] Neutrophils Absolute 4.56 1.50 - 7.00 K/mcL LAB HEMETOLOGY METHOD 07/20/2024 10:06 PM EST [facility] Lymphocytes Absolute 2.10 1.00 - 5.00 K/mcL LAB HEMETOLOGY METHOD 07/20/2024 10:06 PM EST [facility] Monocytes Absolute 0.90 0.20 - 1.00 K/mcL LAB HEMETOLOGY METHOD 07/20/2024 10:06 PM EST [facility] Eosinophils Absolute 0.22 0.00 - 0.50 K/[facility] LAB HEMETOLOGY METHOD 07/20/2024 10:06 PM EST [facility] Basophils Absolute 0.07 0.00 - 0.20 K/mcL LAB HEMETOLOGY METHOD 07/20/2024 10:06 PM [facility] Immature Granulocytes Absolute 0.03 0.00 - 0.03 K/[facility] LAB HEMETOLOGY METHOD 07/20/2024 10:06 PM EST [facility] Blood Venous blood specimen / Unknown Venipuncture / Unknown 07/20/2024 9:52 PM EST 07/20/2024 10:03 PM EST Henri Hernandez MD LAB BLOOD ORDERABLES Sirisha l Result [facility] [address] [place] [address], * Lipase (07/20/2024 9:52 PM EST) Lipase 42 13 - 75 unit/L LAB CHEMISTRY METHOD 07/20/2024 10:31 PM EST [facility] Blood Venous blood specimen / Unknown Venipuncture / Unknown 07/20/2024 9:52 PM EST 07/20/2024 10:02 PM EST us Henri Hernandez MD LAB BLOOD ORDERABLES Sirisha l Result [facility] [address] [place] [address], * Comprehensive metabolic panel (07/20/2024 9:52 PM EST) Sodium 138 133 - 145 mmol/L LAB CHEMISTRY METHOD 07/20/2024 10:31 PM [facility] Potassium 4.3 3.5 - 5.5 mmol/L LAB CHEMISTRY METHOD 07/20/2024 10:31 PM [facility] Chloride 107 96 - 110 mmol/L LAB CHEMISTRY METHOD 07/20/2024 10:31 PM [facility] CO2 28 21 - 32 mmol/L LAB CHEMISTRY METHOD 07/20/2024 10:31 PM [facility] Anion Gap 3 3 - 11 LAB CHEMISTRY METHOD 07/20/2024 10:31 PM [facility] Glucose 95 70 - 100 mg/dL LAB CHEMISTRY METHOD 07/20/2024 10:31 PM [facility] BUN 5 5 - 25 mg/dL LAB CHEMISTRY METHOD 07/20/2024 10:31 PM [facility] Creatinine 0.77 0.70 - 1.30 mg/dL LAB CHEMISTRY METHOD 07/20/2024 10:31 PM [facility] eGFR 104 >=60 mL/min/1. 73m2 LAB CHEMISTRY METHOD 07/20/2024 10:31 PM [facility] Comment:Calculation based on the??Chronic Kidney Disease Epidemiology Collaboration (CKD-EPI) equation refit??without adjustment for race. BUN/Creatinine Ratio 6.5 LAB CHEMISTRY METHOD 07/20/2024 10:31 PM [facility] Calcium 9.3 8.5 - 10.5 mg/dL LAB CHEMISTRY METHOD 07/20/2024 10:31 PM [facility] AST (SGOT) 29 10 - 42 unit/L LAB CHEMISTRY METHOD 07/20/2024 10:31 PM [facility] ALT (SGPT) 24 10 - 60 unit/L LAB CHEMISTRY METHOD 07/20/2024 10:31 PM [facility] Alkaline Phosphatase 71 42 - 121 unit/L LAB CHEMISTRY METHOD 07/20/2024 10:31 PM [facility] Total Protein 7.0 6.0 - 8.0 g/dL LAB CHEMISTRY METHOD 07/20/2024 10:31 PM [facility] Albumin 3.9 3.2 - 5.0 g/dL LAB CHEMISTRY METHOD 07/20/2024 10:31 PM [facility] Total Bilirubin 0.4 0.0 - 1.4 mg/dL LAB CHEMISTRY METHOD 07/20/2024 10:31 PM [facility] Blood Venous blood specimen / Unknown Venipuncture / Unknown 07/20/2024 9:52 PM EST 07/20/2024 10:02 PM EST us Henri Hernandez MD LAB BLOOD ORDERABLES Sirisha lowry Result [facility] [address] [place] [address], from Last 3 Months Insurance MEDICARE MEDICAID - [place] Care Teams Crown Buffer Relationship Specialty Start Date End Date Dk Rodriguez MD [address] [place] [address] Jackie [facility] COY Lucero PCP - General Internal Medicine 07/16/24
--- OUTSIDE RECORDS SUMMARY | 2024-07-29 18:31 | XMS_ITS | Encounter Summary ---
Author Organization [facility] Address [address] [place] [address] Care Team Providers Care Senior Analyst Developer Name Role Phone Dk Rodriguez MD Primary Care Provider + [phone] Reason for Visit * Reason Comments Male Problem Seen here recently h ad catheter placed on abx but feels like symptoms are getting worse. Encounter Details Date Type Department Care Team (Late st Contact Info) Description 07/20/2024 9:18 PM EST - 07/21/2024 1:27 AM EST Emergency [facility] [address] [place] [address] Discharge Disposition: Home or Self Care Social History Tobacco Use Types Packs/Day Years Used Date Smoking Tobacco: Every Day Cigarettes Smokeless Tobacco: Current Tobacco Cessation:Ready to Q uit: Not Asked; Counseling Given: Not Answered Sex and Gender Information Value Date Recorded Sex Assigned at Male 07/16/2024 9:22 PM EST Legal Sex Male 12:02 AM EST Gender Identity Male 07/16/2024 9:22 PM EST Sexual Orientation Straight 07/16/2024 9: 22 PM EST documented as of this encounter Last Filed Vital Signs Vital Sign Reading Time Taken Comments Blood Pressure 131/80 07/20/2024 9:21 PM EST Pulse 105 07/20/2024 9:21 PM EST Temperature 36.5 ??C (97.7 ??F) 07/20/2024 9:21 PM ES T Respiratory Rate 20 07/20/2024 9:21 PM EST Oxygen Saturation 100% 07/20/2024 9:21 PM EST Inhaled Oxygen Concentration - - Weight 68 kg (150 lb) 07/20/2024 9:21 PM EST Height 175.3 cm (5' 9 ) 07/20/2024 9:21 PM EST Body Mass Index 22.15 07/20/2024 9:21 PM EST documented in this encounter Medications at Time of Discharge cephalexin (KEFLEX) 500 mg capsule Take 1 capsule (500 mg total) by mouth 4 (four) times a day for 7 days. 28 each 07/16/2024 07/23/2024 documented as of this encounter Discharge Disposition Disposition Code Departure Means Destination Comment s Home or Self Care LWBS after triage documented in this encounter Progress Notes * Maxime Mireles RN - 07/20/2024 9:28 PM EST Catheter still draining walked here from recovery center felt they were not helping him Maxime Mireles RN 07/20/242128 * Maxime Mireles RN - 07/20/2024 9:27 PM EST Culture, Urine >100,000 CFU/mL Streptococcus viridans group Pt was on keflex Maxime Mireles RN 07/20/242126 * Maxime Mireles RN - 07/20/2024 9:21 PM EST Seen here recently had catheter placed on abx but feels like symptoms are getting worse. Having abdpain. documented in this encounter Plan of Treatment Not on file documented as of this encounter Procedures Procedure Name Priority Date/Time Associated Diagnosis Comments URINALYSIS WITH REFLEX MICROSCOPIC AND CULTURE STAT 07/20/2024 9:55 PM EST [place] URINE CULTURE TUBE STAT 07/20/2024 9:55 PM EST URINALYSIS WITH REFLEX MICROSCOPIC AND CULTURE STAT 07/20/2024 9:55 PM EST CULTURE URINE STAT 07/20/2024 9:55 PM EST CBC WITH AUTO DIFFERENTIAL STAT 07/20/2024 9:52 PM EST CBC AND DIFFERENTIAL STAT 07/20/2024 9:52 PM EST LIPASE STAT 07/20/2024 9:52 PM EST COMPREHENSIVE METABOLIC PANEL STAT 07/20/2024 9:52 PM EST documented in this encounter Results * Culture urine (07/20/2024 9:55 PM EST) Pathologist [facility] Culture, Urine No growth 07/21/2024 1:19 PM EST [facility] Urine Urine specimen obtained by clean catch procedure / Unknown Non-blood Collection / Unknown 07/20/2024 9:55 PM EST 07/20/2024 10:09 PM EST us Henri Hernandez MD LAB MICROBIOLOGY - GENERA L ORDERABLES Final Result Performing Organization Address [facility]/ZIP Co de Phone Number [facility] [address] [place] [address], [place] [phone] * [place] urine culture tube (07/20/2024 9:55 PM EST) Pathologist [facility] Extra Tube Hold for add-ons. 07/21/2024 12:01 AM EST [facility] Comment:Auto resulted. Urine Urine specimen obtained by clean catch procedure / Unknown Non-blood Collection / Unknown 07/20/2024 9:55 PM EST 07/20/2024 10:03 PM EST us Henri Hernandez MD LAB URINE ORDERABLES Sirisha l Result Performing Organization Address City/[facility]/ZIP Co de Phone Number [facility] [address] [place] [address], [place] [phone] * (ABNORMAL) Urinalysis with reflex microscopic and culture (07/20/2024 9:55 PM [facility]) Specific [place] Urine 1.012 1.003 - 1.030 LAB URINALYSIS - AUTOMATED METHOD 07/20/2024 10:09 PM [facility] pH, Urine 6.0 5.0 - 8.0 pH LAB URINALYSIS - AUTOMATED METHOD 07/20/2024 10:09 PM [facility] Leukocytes, Urine Trace(A) Negative LAB URINALYSIS - AUTOMATED METHOD 07/20/2024 10:09 PM [facility] Nitrite, Urine Negative Negative LAB URINALYSIS - AUTOMATED METHOD 07/20/2024 10:09 PM [facility] Protein, Urine 100(A) <=Trace mg/dL LAB URINALYSIS - AUTOMATED METHOD 07/20/2024 10:09 PM [facility] Glucose, Urine Negative Negative mg/dL LAB URINALYSIS - AUTOMATED METHOD 07/20/2024 10:09 PM [facility] Ketones, Urine Negative Negative mg/dL LAB URINALYSIS - AUTOMATED METHOD 07/20/2024 10:09 PM [facility] Urobilinogen , Urine 0.2 0.2 - 1.0 mg/dL LAB URINALYSIS - AUTOMATED METHOD 07/20/2024 10:09 PM [facility] Bilirubin, Urine Negative Negative LAB URINALYSIS - AUTOMATED METHOD 07/20/2024 10:09 PM [facility] Blood, Urine Moderate(A) Negative LAB URINALYSIS - AUTOMATED METHOD 07/20/2024 10:09 PM [facility] RBC, Urine 24.6(H) 0 - 4 /HPF LAB URINALYSIS - AUTOMATED METHOD 07/20/2024 10:09 PM [facility] WBC, Urine 9.1(H) 0 - 4 /HPF LAB URINALYSIS - AUTOMATED METHOD 07/20/2024 10:09 PM [facility] Squamous Epithelial, Urine 43 0 - 60 /LPF LAB URINALYSIS - AUTOMATED METHOD 07/20/2024 10:09 PM [facility] Bacteria, Urine Negative Negative /HPF LAB URINALYSIS - AUTOMATED METHOD 07/20/2024 10:09 PM [facility] Hyaline Casts, Urine 3.6(H) 0 - 3 /LPF LAB URINALYSIS - AUTOMATED METHOD 07/20/2024 10:09 PM [facility] Urine Urine specimen obtained by clean catch procedure / Unknown Non-blood Collection / Unknown 07/20/2024 9:55 PM EST 07/20/2024 10:03 PM EST us Henri Hernandez MD LAB URINE ORDERABLES Sirisha lowry Result [facility] [address] [place] [address], * CBC auto differential (07/20/2024 9:52 PM EST) WBC 7.9 4.8 - 10.8 K/mcL LAB HEMETOLOGY METHOD 07/20/2024 10:06 PM [facility] RBC 4.60 4.50 - 5.50 M/mcL LAB HEMETOLOGY METHOD 07/20/2024 10:06 PM [facility] Hemoglobin 14.2 13.5 - 17.5 g/dL LAB HEMETOLOGY METHOD 07/20/2024 10:06 PM [facility] Hematocrit 42.9 42.0 - 54.0 % LAB HEMETOLOGY METHOD 07/20/2024 10:06 PM [facility] MCV 93.9 79.0 - 98.0 FL LAB HEMETOLOGY METHOD 07/20/2024 10:06 PM [facility] MCH 31.1 27.0 - 32.0 pcg LAB HEMETOLOGY METHOD 07/20/2024 10:06 PM [facility] MCHC 33.1 32.0 - 37.0 g/dL LAB HEMETOLOGY METHOD 07/20/2024 10:06 PM [facility] RDW 14.6 11.0 - 15.0 % LAB HEMETOLOGY METHOD 07/20/2024 10:06 PM [facility] Platelets 188 130 - 400 K/mcL LAB HEMETOLOGY METHOD 07/20/2024 10:06 PM [facility] MPV 9.6 7.0 - 11.0 FL LAB HEMETOLOGY METHOD 07/20/2024 10:06 PM [facility] NRBC 0.0 <1.0 % LAB HEMETOLOGY METHOD 07/20/2024 10:06 PM [facility] NRBC Absolute 0.00 <0.10 K/mcL LAB HEMETOLOGY METHOD 07/20/2024 10:06 PM [facility] Neutrophils Relative 57.9 % LAB HEMETOLOGY METHOD 07/20/2024 10:06 PM [facility] Lymphocytes Relative 26.6 % LAB HEMETOLOGY METHOD 07/20/2024 10:06 PM [facility] Monocytes Relative 11.4 % LAB HEMETOLOGY METHOD 07/20/2024 10:06 PM [facility] Eosinophils Relative 2.8 % LAB HEMETOLOGY METHOD 07/20/2024 10:06 PM [facility] Basophils Relative 0.9 % LAB HEMETOLOGY METHOD 07/20/2024 10:06 PM [facility] Immature Granulocytes Relative 0.4 % LAB HEMETOLOGY METHOD 07/20/2024 10:06 PM [facility] Neutrophils Absolute 4.56 1.50 - 7.00 K/mcL LAB HEMETOLOGY METHOD 07/20/2024 10:06 PM [facility] Lymphocytes Absolute 2.10 1.00 - 5.00 K/mcL LAB HEMETOLOGY METHOD 07/20/2024 10:06 PM EST [facility] Monocytes Absolute 0.90 0.20 - 1.00 K/[facility] LAB HEMETOLOGY METHOD 07/20/2024 10:06 PM EST [facility] Eosinophils Absolute 0.22 0.00 - 0.50 K/[facility] LAB HEMETOLOGY METHOD 07/20/2024 10:06 PM EST [facility] Basophils Absolute 0.07 0.00 - 0.20 K/[facility] LAB HEMETOLOGY METHOD 07/20/2024 10:06 PM EST [facility] Immature Granulocytes Absolute 0.03 0.00 - 0.03 K/[facility] LAB HEMETOLOGY METHOD 07/20/2024 10:06 PM EST [facility] Blood Venous blood specimen / Unknown Venipuncture / Unknown 07/20/2024 9:52 PM EST 07/20/2024 10:03 PM EST Henri Hernandez MD LAB BLOOD ORDERABLES Sirisha l Result [facility] [address] [place] [address], [place] [phone] * Lipase (07/20/2024 9:52 PM EST) Lipase 42 13 - 75 unit/L LAB CHEMISTRY METHOD 07/20/2024 10:31 PM EST [facility] Blood Venous blood specimen / Unknown Venipuncture / Unknown 07/20/2024 9:52 PM EST 07/20/2024 10:02 PM EST us Henri Hernandez MD LAB BLOOD ORDERABLES Sirisha l Result [facility] [address] [place] [address], [place] [phone] * Comprehensive metabolic panel (07/20/2024 9:52 PM EST) Sodium 138 133 - 145 mmol/L LAB CHEMISTRY METHOD 07/20/2024 10:31 PM [facility] Potassium 4.3 3.5 - 5.5 mmol/L LAB CHEMISTRY METHOD 07/20/2024 10:31 PM [facility] Chloride 107 96 - 110 mmol/L LAB CHEMISTRY METHOD 07/20/2024 10:31 PM [facility] CO2 28 21 - 32 mmol/L LAB CHEMISTRY METHOD 07/20/2024 10:31 PM [facility] Anion Gap 3 3 - 11 LAB CHEMISTRY METHOD 07/20/2024 10:31 PM [facility] Glucose 95 70 - 100 mg/dL LAB CHEMISTRY METHOD 07/20/2024 10:31 PM [facility] BUN 5 5 - 25 mg/dL LAB CHEMISTRY METHOD 07/20/2024 10:31 PM [facility] Creatinine 0.77 0.70 - 1.30 mg/dL LAB CHEMISTRY METHOD 07/20/2024 10:31 PM [facility] eGFR 104 >=60 mL/min/1. 73m2 LAB CHEMISTRY METHOD 07/20/2024 10:31 PM [facility] Comment:Calculation based on the??Chronic Kidney Disease Epidemiology Collaboration (CKD-EPI) equation refit??without adjustment for race. BUN/Creatinine Ratio 6.5 LAB CHEMISTRY METHOD 07/20/2024 10:31 PM [facility] Calcium 9.3 8.5 - 10.5 mg/dL LAB CHEMISTRY METHOD 07/20/2024 10:31 PM [facility] AST (SGOT) 29 10 - 42 unit/L LAB CHEMISTRY METHOD 07/20/2024 10:31 PM [facility] ALT (SGPT) 24 10 - 60 unit/L LAB CHEMISTRY METHOD 07/20/2024 10:31 PM EST [facility] Alkaline Phosphatase 71 42 - 121 unit/L LAB CHEMISTRY METHOD 07/20/2024 10:31 PM [facility] Total Protein 7.0 6.0 - 8.0 g/dL LAB CHEMISTRY METHOD 07/20/2024 10:31 PM [facility] Albumin 3.9 3.2 - 5.0 g/dL LAB CHEMISTRY METHOD 07/20/2024 10:31 PM [facility] Total Bilirubin 0.4 0.0 - 1.4 mg/dL LAB CHEMISTRY METHOD 07/20/2024 10:31 PM [facility] Blood Venous blood specimen / Unknown Venipuncture / Unknown 07/20/2024 9:52 PM EST 07/20/2024 10:02 PM EST us Henri Hernandez MD LAB BLOOD ORDERABLES Sirisha l Result [facility] [address] [place] [address], documented in this encounter Visit Diagnoses Not on filedocumented in this encounter Care Teams Senior Analyst Developer Relationship Specialty Start Date End Date Dk Rodriguez MD [address] [place] [address] Dr Jackie Lucero MA PCP - General Internal Medicine 07/16/24 documented as of this encounter
== END 2024-07-29 17:04 | disposition left against medical advice (07) ==
LOC: HO.ED 16:41
PROVIDERS: Emergency Provider Emergency Medicine; PCP Internal Medicine
DX: N39.0 Urinary tract infection, site not specified (principal); Z79.899 Other long term (current) drug therapy
CPT/HCPCS: 99281; 99283

== ENCOUNTER 2024-09-10 13:41 | Outpatient (AMB) | payer MEDICARE, MEDICAID, SELFPAY ==
[2024-09-10 13:48] VITALS: BP 122/90; PULSE 86; O2SAT 97; BMI 21.7
--- NOTE | 2024-09-10 13:49 | AM.OFFVISMDC ---
Intake Vital Signs 09/10/24 13:48 Height 5 ft 9 in Weight 147 lb BMI 21.7 BP 122/90 H Blood Pressure Location Lt brachial Position Sitting Pulse 86 Pulse Source Pulse Oximeter Pulse Oximetry (%) 97 Oxygen Delivery Method Room Air Intake Visit Reasons: AWV Fashion Consultant Required: No Accompanied by: Self / Same As Patient Allergies No Known Allergies [NO KNOWN ALLERGIES] Allergy (Unknown, Verified 09/10/24 14:27) UNKNOWN Medication List - Last Reconciled 09/10/24 by Dk Rodriguez MD atorvastatin 20 mg PO QPM 30 days polyethylene glycol 3350 (Miralax) 17 grams PO DAILY 30 days tamsulosin 0.4 mg PO QAM 90 days Do you need a note to return to daycare/school/sports/work: No HPI AWV HPI Details Patient comes in today for his Medicare Annual Wellness Exam AND follow up visit - he was last seen here over a year ago on 08/30/2023 States that he currently feels okay and that he is only taking Atorvastatin, Tamsulosin and Miralax, and that he stopped taking all of the other medications that he was on in the past He denies any headaches or dizziness Denies any chest pains, no shortness of breath No nausea/vomiting, no abdominal pain No change in bowel habits noted [place] of care was reviewed and updated today Per his retirement staff, patient has a healthcare proxy in place and on file - they have been requested to forward a copy of this to us for documentation in patient's chart IPPE/AWV: c/o of Annual Wellness Visit, subsequent visit. Medical / Social History Reviewed Past Medical History Yes . [place] of Care / Care Team list updated Yes . Surgical/Hospitalization History Yes . Current Medications (including OTC and supplements) Yes . Family History Yes . Tobacco Control form Yes . AUDIT-C (Alcohol use) form Yes . Illicit drug use in Social History Yes . Current diagnosis of depression? No Appropriate PHQ2/PHQ9 completed Yes . Data entered by Warehouse Driver and reviewed by provider Home Safety Throw rugs? No Grab bars? No Raised toilet seats? No Working smoke detectors? Yes Working carbon monoxide detectors? Yes Data entered by Warehouse Driver and reviewed by provider Activities of Daily Living (ADLs) Difficulty bathing or showering? No Difficulty dressing? No Difficulty using the toilet? No Difficulty getting in and out of bed? No Difficulty walking? No Receives help from another person with any of the above tasks? No Instrumental Activities of Daily Living (IADLs) Uses the telephone without help Gets to places out of walking distance with help Goes shopping for groceries with help Prepares own meals without help Does own minor home maintenance with help Does own laundry with help Does own housework with help Manages own money with help Currently takes medications? Yes Takes medication with help End-of-Life Planning Discussed advance directive Yes Advance directive on file Discussed wishes expressed in advance directive agreed to following patient's wishes Fall Risk: Fall History Have you had any falls with injury in the past year? No . Have you had two or more falls in the past year? No . Fall Risk Assessment: No falls in the past year . HRA filled out by the patient, reviewed by Provider and scanned. [facility] Medical History (Updated 09/16/24 @ 00:15 by Dk Rodriguez MD) Smoker GERD without esophagitis Tubular adenoma of colon (~2018) Personal history of nicotine dependence Constipation Back pain Schizoaffective disorder, bipolar type Anxiety Benign prostatic hyperplasia with lower urinary tract symptoms Pure hypercholesterolemia Thought disorder Bipolar 1 disorder Mood disorder Surgical History History of colonoscopy (~04/2019) History of prostate surgery (~04/2019) History of open reduction and internal fixation (ORIF) procedure (~08/2018) Family History Father Lung cancer BPH (benign prostatic hyperplasia) Mother Dementia Brother Myocardial infarction Other Mental health problem Substance abuse Social History Household Members: None Housing: Assisted Living Facility Housing Other:: retirement Do you presently have visiting nurse or other home services: No Alcohol intake: never Patient Tobacco Use Status: Current everyday Tobacco user Tobacco use type: Cigarette Cigarette Packs Per Day: 1 Cigarettes Per Day: 20.0 Years Smoked: 10 e-Cigarette/Vaping Use: Never Used Second Hand Smoke Exposure: Yes service: No Current occupational status: employed Current occupation: [employer] Sexual orientation: Decline to Answer Cognitive needs: No Hearing needs: No Vision needs: Yes Questionnaire Medicare Wellness Checkup What [age] 65-69 (56) What gender do you identify with?: male During the past 4 weeks, how much have you been bothered by emotional problems such as feeling anxious, depressed, irritable, sad or downhearted, and blue?: quite a bit During the past 4 weeks, has your physical & emotional health limited your social activities with family, friends, neighbors, or groups?: quite a bit During the past 4 weeks, how much bodily pain have you generally had?: severe pain (genital area ([place])) During the past 4 weeks, was someone available to help you if you needed & wanted help?: yes, quite a bit During the past 4 weeks, what was the hardest physical activity you could do for at least 2 minutes?: heavy Can you get to places out of walking distance without help? (For eg., can you travel alone on buses, taxis or drive your car?): Yes Can you go shopping for groceries or clothes without someone's help?: No Can you prepare your own meals?: Yes (support) Can you do your housework without help?: No Because of any health problems, do you need the help of another person with your personal care needs such as eating, bathing, dressing or getting around the house?: No Can you handle your own money without help?: No During the past 4 weeks, how would you rate your health in general?: good During the past 4 weeks how have things been going for you?: very well; could hardly better Are you having difficulties driving your car?: not applicable, I don't use a car Do you always fasten your seat belt when you are in a car?: yes, usually During past 4 weeks, have you been bothered by the following: seldom: Falling or dizzy when standing up, often: Trouble eating well? and Problems using the telephone? and always: Sexual problems?, Teeth or denture problems? and Tiredness or fatigue? (states doesnt sleep ) Have you fallen 2 or more times in the past year?: No Are you afraid of falling?: Yes Are you a smoker?: yes, but I'm not ready to quit During the past 4 weeks, how many drinks of wine, beer, or other alcoholic beverages did you have?: no alcohol at all Do you exercise for about 20 minutes 3 or more times a week?: yes, most of the time Have you been given information to help with the following?: yes: Hazards in your house that might hurt you? and yes: Keeping track of your medications? How often do you have trouble taking medicines the way you have been told to take them?: I always take medicine as prescribed How confident are you that you can control & manage most of your health problems?: somewhat confident What is your race?: White Mini Mental State Exam (MMSE) Orientation What is the (year) (season) (date) (day) (month)?: year, season, date, day and month Where are we (state) (county) (town or city) (hospital) (floor)?: state, county, town or city, hospital/clinic and floor Score Score: 10 Activity of Daily Living Bathing - sponge bath, tub bath or shower: receives no assistance (gets in/out by self, if usual bathing means Dressing - getting clothes from closets & drawers, including inner/outer garments & fasteners.: gets clothes & gets completely dressed without help Toileting - going to the 'toilet room' for urine/bowel elimination & cleaning self/arranging clothes: goes to toilet room, cleans self, arranges clothes without help Transfer: moves in & out of bed and chair without help (may use support object) Continence: controls urination/bowel movements completely by self Feeding: feeds self without help Total Score: 0 Information obtained from: patient Using telephone: independent Traveling: dependent Shopping: dependent Preparing meals: dependent Housework: dependent Taking medicine: dependent Managing money: dependent PHQ-9 Over the last 2 weeks, how often have you been bothered by any of the following problems? 1. Little interest or pleasure in doing things: not at all 2. Feeling down, depressed, or hopeless: not at all 3. Trouble falling or staying asleep, or sleeping too much: not at all 4. Feeling tired or having little energy: not at all 5. Poor appetite or overeating: not at all 6. Feeling bad about yourself - or that you are a failure or have let yourself or your family down: not at all 7. Trouble concentrating on things, such as reading the newspaper or watching television: not at all 8. Moving or speaking so slowly that other people could have noticed. Or the opposite - being so fidgety or restless that you have been moving around a lot more than usual: not at all 9. Thoughts that you would be better off or of hurting yourself in some way: not at all Total score: 0 Depression Screening Interpretation: Negative Depression Screening Done: Yes 13229 - PHQ-9 Billing: Yes Source: Developed by Drs. Adolfo Munoz, Michelle Dumont, Gregory Rai and colleagues, with an educational ebenezer from [employer]. PHQ-2/PHQ-9 PHQ-2 Over the last 2 weeks, how often have you been bothered by any of the following problems? 1. Little interest or pleasure in doing things: not at all 2. Feeling down, depressed, or hopeless: not at all Total score: 0 If score is 3 or greater, continue 3. Trouble falling or staying asleep, or sleeping too much: not at all 4. Feeling tired or having little energy: not at all 5. Poor appetite or overeating: not at all 6. Feeling bad about yourself - or that you are a failure or have let yourself or your family down: not at all 7. Trouble concentrating on things, such as reading the newspaper or watching television: not at all 8. Moving or speaking so slowly that other people could have noticed. Or the opposite - being so fidgety or restless that you have been moving around a lot more than usual: not at all 9. Thoughts that you would be better off or of hurting yourself in some way: not at all Total score: 0 0-4 None-Minimal, 5-9 Mild, 10-14 Moderate, 15-19 Moderately Severe, 20-27 Severe Source: Developed by Drs. Adolfo Munoz, Michelle Dumont, Gregory Rai and colleagues, with an educational ebenezer from [employer]. Thrive Questionnaire Date Thrive assessed: 09/10/24 I am a: Patient What is your living situation today?: I have a steady place to live Within the past 12 months, did the food you bought not last and you didn't have the money to get more?: Never true Within the past 12 months, did you worry whether your food would run out before you got money to buy more?: Never true Do you have trouble paying for medicines?: No Do you have trouble getting transportation to medical appointments?: No Do you have trouble paying your heating and electricity bill?: No Do you have trouble taking care of your child, family member or friend?: No Do you have trouble with day-to-day activities such as bathing, preparing meals, shopping, managing finances, etc.?: No Are you currently unemployed and looking for a job?: No Are you interested in more education?: No Please select the resources that you would like help with: None Currently or been in a relationship where the following occur: No concerns reported THRIVE Score: 0 JALEESA-7 AMB Questionnaire JALEESA-7 Date JALEESA - 7 assessed: 09/10/24 Feeling nervous, anxious, or on edge: 0 = Not at all Not being able to stop or control worryin = Not at all Worrying too much about different things: 0 = Not at all Trouble relaxin = Not at all Being so restless that it is hard to sit still: 0 = Not at all Becoming easily annoyed or irritable: 0 = Not at all Feeling afraid as if something awful might happen: 0 = Not at all Total JALEESA-7 score (0-4 normal; 5-9 mild; 10-14 moderate; 15-21 severe): 0 Source: Developed by Drs. Adolfo Munoz, Michelle Dumont, Gregory Rai and colleagues, with an educational ebenezer from [employer]. Review of Systems Const Denies chills, Denies difficulty sleeping, Denies fatigue, Denies fever(s) and Denies headache(s) ENT Denies dysphagia, Denies dizziness, Denies otalgia, Denies headache(s), Denies neck pain, Denies odynophagia and Denies sore throat Card Denies chest pain, Denies rapid heart rate, Denies irregular heart rhythm, Denies palpitations and Denies dyspnea Resp Denies chest congestion, Denies cough and Denies dyspnea GI Denies abdominal pain, Reports constipation (Rx helping lately), Denies dysphagia, Denies heartburn, Denies diarrhea, Denies nausea, Denies odynophagia and Denies vomiting Denies hematuria, Denies difficulty urinating (improved ), Denies dysuria, Denies urinary frequency and Denies urinary incontinence Musc Denies back pain, Denies arthralgias and Denies neck pain Skin/Breast Denies rash Neuro Denies dizziness and Denies headache(s) Psych Reports anxiety Endo Denies fatigue and Denies palpitations Physical Exam Vital Signs: Last Vital Signs Pulse 86 09/10/24 13:48 BP 122/90 H 09/10/24 13:48 Pulse Ox 97 09/10/24 13:48 Oxygen Delivery Method Room Air 09/10/24 13:48 BMI result Body Mass Index 21.7 IPPE/AWV: Balance Romberg Yes . Tandem walk Yes . Walk and Turn Yes . Rise from sit to stand Yes . Vision Corrective lens No Vision screen pass Hearing Whisper test pass . Urinary incont. no. EKG Not clinically necessary. Const General: no acute distress and alert HEENT Ears: TM's normal bilaterally and EAC's normal Throat: Yes posterior oropharynx normal and Yes tonsils normal (no TP congestion) Neck Neck: Yes no lymphadenopathy and Yes supple Resp Auscultation: clear to auscultation bilaterally, no rales and no wheezes Cardio Rate: regular rate Rhythm: regular rhythm Heart sounds: no murmurs GI Palpation (GI): Soft to palpation, nontender and No hepatosplenomegaly present Skin General skin exam: no rashes or lesions noted Extrem General: Yes no clubbing, cyanosis or edema Assessment & Plan Assessment & Plan (1) Medicare annual wellness visit, subsequent: Code(s): Z00.00 - Encounter for general adult medical examination without abnormal findings Plan: HRA form discussed and completed with patient; forms will be scanned into patient's chart He is due for repeat colonoscopy and will be referred accordingly SINA updated (2) Pure hypercholesterolemia: Code(s): E78.00 - Pure hypercholesterolemia, unspecified Plan: Reinforced low cholesterol diet Continue Atorvastatin 20 mg QD Will recheck his labs and fasting lipids in 3 months for follow up (3) Neurogenic bladder: Code(s): N31.9 - Neuromuscular dysfunction of bladder, unspecified Plan: Follow up with urology as scheduled - he goes to Urology in [place] (4) Benign prostatic hyperplasia with lower urinary tract symptoms: Code(s): N40.1 - Benign prostatic hyperplasia with lower urinary tract symptoms Qualifiers: Lower urinary tract symptom detail: urinary retention Qualified Code(s): N40.1 - Benign prostatic hyperplasia with lower urinary tract symptoms; R33.8 - Other retention of urine Plan: Continue Tamsulosin 0.4 mg Q HS Follow up with urology as scheduled (5) GERD without esophagitis: Code(s): K21.9 - Gastro-esophageal reflux disease without esophagitis Plan: Dietary restrictions reinforced (6) Constipation: Code(s): K59.00 - Constipation, unspecified Qualifiers: Constipation type: unspecified constipation type Qualified Code(s): K59.00 - Constipation, unspecified Plan: Reinforced increased oral fluids and dietary fiber Continue Miralax 17 gm QD (7) Anxiety: Code(s): F41.9 - Anxiety disorder, unspecified Plan: Follow up with psychiatry as scheduled (8) Schizoaffective disorder, bipolar type: Code(s): F25.0 - Schizoaffective disorder, bipolar type Plan: He is currently no longer taking majority of his previous medications Follow up with psychiatry as scheduled (9) Smoker: Code(s): F17.200 - Nicotine dependence, unspecified, uncomplicated Plan: Patient is counseled again on complete smoking cessation (10) Colon cancer screening: Code(s): Z12.11 - Encounter for screening for malignant neoplasm of colon Plan: Will refer him to GI for screening colonoscopy Plan Follow up in 3 months Orders: Orders Lipid Panel 3 Months E78.00 - Pure hypercholesterolemia, unspecified Complete Blood Count Auto Diff 3 Months D64.9 - Anemia, unspecified Comprehensive [place]ateros. Panel Fast 3 Months E78.00 - Pure hypercholesterolemia, unspecified Referrals Gastroenterology Referral Z12.11 - Encounter for screening for malignant neoplasm of colon Medications: New tamsulosin 0.4 mg PO QAM 90 days 90 caps 1RF N40.1 - Benign prostatic hyperplasia with lower urinary tract symptoms, R35.1 - Nocturia Changed From atorvastatin 20 mg PO DAILY 30 days 30 tabs 2RF To atorvastatin 20 mg PO QPM 30 days 30 tabs 2RF Quality Reporting (2019) Depression/Bipolar (159/160/161/177) PHQ-9: Total score: 0 Coding Level of Care Code Medicare Subsequent (G0439) Est Pt Level 4 (36374) Diagnoses Medicare annual wellness visit, subsequent Z00.00 Pure hypercholesterolemia E78.00 Neurogenic bladder N31.9 Benign prostatic hyperplasia with urinary retention N40.1; R33.8 Lower urinary tract symptom detail: urinary retention GERD without esophagitis K21.9 Constipation, unspecified constipation type K59.00 Constipation type: unspecified constipation type Anxiety F41.9 Schizoaffective disorder, bipolar type F25.0 Smoker F17.200 Colon cancer screening Z12.11 Additional Codes PHQ-9 - 62365 - PHQ-9 Billing: Yes ([id number]) Advance Care Planning Advance Care Planning discussion: Exists, not on file Date of discussion: 09/10/24 Who was present: patient, retirement staff, PCP Actual minutes spent: 10
--- OUTSIDE RECORDS SUMMARY | 2024-09-10 16:40 | XMS_ITS | Referral Summary ---
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 Also had dizziness/lightheadedness, [...] Plan (01/02/2024 11:43 AM EDT): Presents from [facility] in the setting of urinary retention [...] Seroquel 25 mg twice daily Presents from [facility]'s forensic unit with documented history of schizophrenia. Continue home aripiprazole 20mg daily Continue home carbamazepine 500 mg twice daily Continue home Zyprexa 15 mg nightly Continue home Seroquel 25 mg twice daily Consider psychiatry consult if concern that antipsychotic medications are causing SIADH Patient presents from [facility], requires constant observation Assessment & Plan (01/02/2024 11:43 AM EDT): Home medications: aripiprazole 20 mg daily, carbamazepine 500 mg twice daily, Zyprexa 15 mg nightly, Seroquel 25 mg twice daily Presents from [facility]'s forensic unit with documented history of schizophrenia. Continue home aripiprazole 20mg daily Continue home carbamazepine 500 mg twice daily Continue home Zyprexa 15 mg nightly Continue home Seroquel 25 mg twice daily Consider psychiatry consult if concern that antipsychotic medications are causing SIADH Patient presents from [facility], requires constant observation BPH (benign prostatic hyperplasia) 12/30/2023 Assessment & Plan (01/03/2024 2:33 PM EDT): Paperwork from the [facility] center indicates history of BPH with prior need for intermittent catheterization requiring urology evaluation in the past, records not available in our system). Per documentation from [facility] patient has seen urology at [facility] in [place]. He was started on Flomax outpatient. In [...] (01/02/2024 11:43 AM EDT): Paperwork from the [facility] indicates history of BPH with prior need for intermittent catheterization requiring urology evaluation in the past, records not available in our system). Per documentation from [facility] patient has seen urology at [facility] in [place]. He was started on Flomax outpatient. In [...] Plan of Treatment Not on file Insurance [facility] MEDICARE [facility] Advance Directives * Full Code (Latest Code Status on File) Date Activated Date Inactivated Comments 12/30/2023 7:22 PM 01/03/2024 8:48 PM * Presumed Full Code Date Activated Date Inactivated Comments 12/30/2023 7:00 PM 12/30/2023 7:22 PM Care Teams Bale Tie Machine Operator Relationship Specialty Start Date End Date Patient, Has No Pcp Or Ref DO NOT EDIT THIS RECORD VIA PROVIDER ON THE FLY PCP - General Crm Solution Architect 12/30/23
--- OUTSIDE RECORDS SUMMARY | 2024-09-10 16:40 | XMS_ITS | Clinical Summary ---
Author Organization [facility] Address [address] [place] [phone] Phone Care Team Providers Care Marriage And Family Teacher Name Role Phone Dk Rodriguez MD Primary Care Provider [phone] Allergies No known active allergies Medications No known medications Encounters Date Type Department Care Team Description 08/01/2024 10:28 PM EST - 08/02/2024 4:07 AM [facility] Emergency [address] [place] [phone] Discharge Disposition: Home or Self Care 07/29/2024 1:53 AM EST - 07/29/2024 7:02 AM [facility] Emergency [address] [place] [phone] Discharge Disposition: Home or Self Care 07/26/2024 11:51 PM EST - 07/27/2024 1:57 AM [facility] Emergency [address] [place] [phone] Discharge Disposition: Home or Self Care 07/20/2024 9:18 PM EST - 07/21/2024 1:27 AM [facility] Emergency [address] [place] [phone] Discharge Disposition: Home or Self Care 07/16/2024 8:59 PM EST - 07/16/2024 11:27 PM [facility] Emergency [address] [place] [phone] Acute on chronic urinary retention (Primary Dx) Discharge Disposition: Home or Self Care from Last 3 Months Medical History Medical History Date Comments Bipolar 1 disorder (CMS/HCC) Mood disorder (CMS/HCC) Hyperactivity of bladder Social History Tobacco Use Types Packs/Day Years [...] Sign Reading Time Taken Comments Blood Pressure 123/81 08/01/2024 10:51 PM EST Pulse 90 08/01/2024 10:51 PM EST Temperature 36.4 ??C (97.5 ??F) 08/01/2024 10:[address] Respiratory Rate 18 08/01/2024 10:51 PM EST Oxygen Saturation 97% 08/01/2024 10:51 PM EST Inhaled Oxygen Concentration - - Weight 68.1 kg (150 lb 3.2 oz) 08/01/2024 10:51 PM EST Height 175.3 cm (5' 9 ) 08/01/2024 10:51 PM EST Body Mass Index 22.18 08/01/2024 10:51 PM EST Plan of Treatment Health Maintenance Due Date Last Done Comments Hepatitis B Vaccines (1 of 3 - [...] on patient's age to complete this topic Hepatitis A Vaccines Aged Out No long er eligible based on patient's age to complete this topic IPV Vaccines Aged Out No longer eligi ble based on patient's age to complete this topic MMR Vaccines Aged Out No longer eligi ble based on patient's age to complete this topic Meningococcal ACWY Vaccine Aged Out N o longer eligible based on patient's age to complete this topic Meningococcal B Vaccine Aged Out No l onger eligible based on patient's age to complete [...] resultswithin the time period is included. Specific [place] Urine 1.012 1.003 - 1.030 LAB URINALYSIS - AUTOMATED METHOD 07/20/2024 10:09 PM [facility] pH, Urine 6.0 5.0 - 8.0 pH LAB URINALYSIS - AUTOMATED METHOD 07/20/2024 10:09 PM [facility] Leukocytes, Urine Trace(A) Negative LAB URINALYSIS - AUTOMATED METHOD 07/20/2024 10:09 PM [facility] Nitrite, Urine Negative Negative LAB URINALYSIS - AUTOMATED METHOD 07/20/2024 10:09 PM [facility] Protein, Urine 100(A) <=Trace mg/dL LAB URINALYSIS - AUTOMATED METHOD 07/20/2024 10:09 PM [facility] Glucose, Urine Negative Negative mg/dL LAB URINALYSIS - AUTOMATED METHOD 07/20/2024 10:09 PM [facility] Ketones, Urine Negative Negative mg/dL LAB URINALYSIS - AUTOMATED METHOD 07/20/2024 10:09 PM [facility] Urobilinogen , Urine 0.2 0.2 - 1.0 mg/dL LAB URINALYSIS - AUTOMATED METHOD 07/20/2024 10:09 PM [facility] Bilirubin, Urine Negative Negative LAB URINALYSIS - AUTOMATED METHOD 07/20/2024 10:09 PM [facility] Blood, Urine Moderate(A) Negative LAB URINALYSIS - AUTOMATED METHOD 07/20/2024 10:09 PM [facility] RBC, Urine 24.6(H) 0 - 4 /HPF LAB URINALYSIS - AUTOMATED METHOD 07/20/2024 10:09 PM [facility] WBC, Urine 9.1(H) 0 - 4 /HPF LAB URINALYSIS - AUTOMATED METHOD 07/20/2024 10:09 PM [facility] Squamous Epithelial, Urine 43 0 - 60 /LPF LAB URINALYSIS - AUTOMATED METHOD 07/20/2024 10:09 PM [facility] Bacteria, Urine Negative Negative /HPF LAB URINALYSIS - AUTOMATED METHOD 07/20/2024 10:09 PM [facility] Hyaline Casts, Urine 3.6(H) 0 - 3 /LPF LAB URINALYSIS - AUTOMATED METHOD 07/20/2024 10:09 PM [facility] Urine Urine specimen obtained by clean catch procedure / Unknown Non-blood Collection / Unknown 07/20/2024 9:55 PM EST 07/20/2024 10:03 PM EST us Henri Hernandez MD LAB URINE ORDERABLES Sirisha essence Result [facility] [address] [place] [address], * [place] urine culture tube (07/20/2024 9:55 PM EST) Only the most recent of2 resultswithin the time period is included. Extra Tube Hold for add-ons. 07/21/2024 12:01 AM [facility] Comment:Auto resulted. Urine Urine specimen obtained by clean catch procedure / Unknown Non-blood Collection / Unknown 07/20/2024 9:55 PM EST 07/20/2024 10:03 PM EST Henri Hernandez MD LAB URINE ORDERABLES Sirisha l Result Performing Organization Address [facility]/ZIP Co de Phone Number [facility] [address] [place] [address], [place] [phone] * Culture urine (07/20/2024 9:55 PM EST) Only the most recent of2 resultswithin the time period is included. Pathologist [facility] Culture, Urine No growth 07/21/2024 1:19 PM [facility] Urine Urine specimen obtained by clean catch procedure / Unknown Non-blood Collection / Unknown 07/20/2024 9:55 PM EST 07/20/2024 10:09 PM EST Henri Hernandez MD LAB MICROBIOLOGY - GENERA L ORDERABLES Final Result Performing Organization Address [facility]/ZIP Co de Phone Number [facility] [address] [place] [address], [place] [phone] * CBC auto differential (07/20/2024 9:52 PM EST) WBC 7.9 4.8 - 10.8 K/mcL LAB HEMETOLOGY METHOD 07/20/2024 10:06 PM [facility] RBC 4.60 4.50 - 5.50 M/mcL LAB HEMETOLOGY METHOD 07/20/2024 10:06 PM [facility] Hemoglobin 14.2 13.5 - 17.5 g/dL LAB HEMETOLOGY METHOD 07/20/2024 10:06 PM [facility] Hematocrit 42.9 42.0 - 54.0 % LAB HEMETOLOGY METHOD 07/20/2024 10:06 PM [facility] MCV 93.9 79.0 - 98.0 FL LAB HEMETOLOGY METHOD 07/20/2024 10:06 PM [facility] MCH 31.1 27.0 - 32.0 pcg LAB HEMETOLOGY METHOD 07/20/2024 10:06 PM [facility] MCHC 33.1 32.0 - 37.0 g/dL LAB HEMETOLOGY METHOD 07/20/2024 10:06 PM [facility] RDW 14.6 11.0 - 15.0 % LAB HEMETOLOGY METHOD 07/20/2024 10:06 PM [facility] Platelets 188 130 - 400 K/mcL LAB HEMETOLOGY METHOD 07/20/2024 10:06 PM [facility] MPV 9.6 7.0 - 11.0 FL LAB HEMETOLOGY METHOD 07/20/2024 10:06 PM [facility] NRBC 0.0 <1.0 % LAB HEMETOLOGY METHOD 07/20/2024 10:06 PM [facility] NRBC Absolute 0.00 <0.10 K/mcL LAB HEMETOLOGY METHOD 07/20/2024 10:06 PM [facility] Neutrophils Relative 57.9 % LAB HEMETOLOGY METHOD 07/20/2024 10:06 PM [facility] Lymphocytes Relative 26.6 % LAB HEMETOLOGY METHOD 07/20/2024 10:06 PM [facility] Monocytes Relative 11.4 % LAB HEMETOLOGY METHOD 07/20/2024 10:06 PM [facility] Eosinophils Relative 2.8 % LAB HEMETOLOGY METHOD 07/20/2024 10:06 PM [facility] Basophils Relative 0.9 % LAB HEMETOLOGY METHOD 07/20/2024 10:06 PM [facility] Immature Granulocytes Relative 0.4 % LAB HEMETOLOGY METHOD 07/20/2024 10:06 PM EST [facility] Neutrophils Absolute 4.56 1.50 - 7.00 K/mcL LAB HEMETOLOGY METHOD 07/20/2024 10:06 PM [facility] Lymphocytes Absolute 2.10 1.00 - 5.00 K/mcL LAB HEMETOLOGY METHOD 07/20/2024 10:06 PM EST [facility] Monocytes Absolute 0.90 0.20 - 1.00 K/mcL LAB HEMETOLOGY METHOD 07/20/2024 10:06 PM [facility] Eosinophils Absolute 0.22 0.00 - 0.50 K/mcL LAB HEMETOLOGY METHOD 07/20/2024 10:06 PM [facility] Basophils Absolute 0.07 0.00 - 0.20 K/mcL LAB HEMETOLOGY METHOD 07/20/2024 10:06 PM [facility] Immature Granulocytes Absolute 0.03 0.00 - 0.03 K/mcL LAB HEMETOLOGY METHOD 07/20/2024 10:06 PM EST [facility] Blood Venous blood specimen / Unknown Venipuncture / Unknown 07/20/2024 9:52 PM EST 07/20/2024 10:03 PM EST us Henri Hernandez MD LAB BLOOD ORDERABLES Sirisha l Result [facility] [address] [place] [address], * Lipase (07/20/2024 9:52 PM EST) Lipase 42 13 - 75 unit/L LAB CHEMISTRY METHOD 07/20/2024 10:31 PM EST [facility] Blood Venous blood specimen / Unknown Venipuncture / Unknown 07/20/2024 9:52 PM EST 07/20/2024 10:02 PM EST us Henri Hernandez MD LAB BLOOD ORDERABLES Sirisha lowry Result [facility] [address] [place] [address], [place] [phone] * Comprehensive metabolic panel (07/20/2024 9:52 PM EST) Sodium 138 133 - 145 mmol/L LAB CHEMISTRY METHOD 07/20/2024 10:31 PM [facility] Potassium 4.3 3.5 - 5.5 mmol/L LAB CHEMISTRY METHOD 07/20/2024 10:31 PM [facility] Chloride 107 96 - 110 mmol/L LAB CHEMISTRY METHOD 07/20/2024 10:31 PM [facility] CO2 28 21 - 32 mmol/L LAB CHEMISTRY METHOD 07/20/2024 10:31 PM [facility] Anion Gap 3 3 - 11 LAB CHEMISTRY METHOD 07/20/2024 10:31 PM [facility] Glucose 95 70 - 100 mg/dL LAB CHEMISTRY METHOD 07/20/2024 10:31 PM [facility] BUN 5 5 - 25 mg/dL LAB CHEMISTRY METHOD 07/20/2024 10:31 PM [facility] Creatinine 0.77 0.70 - 1.30 mg/dL LAB CHEMISTRY METHOD 07/20/2024 10:31 PM [facility] eGFR 104 >=60 mL/min/1. 73m2 LAB CHEMISTRY METHOD 07/20/2024 10:31 PM [facility] Comment:Calculation based on the??Chronic Kidney Disease Epidemiology Collaboration (CKD-EPI) equation refit??without adjustment for race. BUN/Creatinine Ratio 6.5 LAB CHEMISTRY METHOD 07/20/2024 10:31 PM [facility] Calcium 9.3 8.5 - 10.5 mg/dL LAB CHEMISTRY METHOD 07/20/2024 10:31 PM [facility] AST (SGOT) 29 10 - 42 unit/L LAB CHEMISTRY METHOD 07/20/2024 10:31 PM [facility] ALT (SGPT) 24 10 - 60 unit/L LAB CHEMISTRY METHOD 07/20/2024 10:31 PM [facility] Alkaline Phosphatase 71 42 - 121 unit/L LAB CHEMISTRY METHOD 07/20/2024 10:31 PM [facility] Total Protein 7.0 6.0 - 8.0 g/dL LAB CHEMISTRY METHOD 07/20/2024 10:31 PM [facility] Albumin 3.9 3.2 - 5.0 g/dL LAB CHEMISTRY METHOD 07/20/2024 10:31 PM [facility] Total Bilirubin 0.4 0.0 - 1.4 mg/dL LAB CHEMISTRY METHOD 07/20/2024 10:31 PM [facility] Blood Venous blood specimen / Unknown Venipuncture / Unknown 07/20/2024 9:52 PM EST 07/20/2024 10:02 PM EST Henri Hernandez MD LAB BLOOD ORDERABLES Sirisha essence Result [facility] [address] [place] [address], from Last 3 Months Insurance MEDICARE MEDICAID - [place] Care Teams Marriage And Family Teacher Relationship Specialty Start Date End Date Dk Rodriguez MD [address] [place] [address] [place] [address] [place] PCP - General Internal Medicine 07/16/24
--- OUTSIDE RECORDS SUMMARY | 2024-09-10 16:40 | XMS_ITS | Encounter Summary ---
Author Organization [facility] Address [address] [place] [address] Care Team Providers Care Clinical Pathologist Name Role Phone Patient, Has No Pcp Or Ref Primary Care Provider Unavailable Encounter Details Date Type Department Care Team (Late st Contact Info) Description 01/04/2024 Community Orders [facility] EpicCare Link [address] [place] [address] Bethany Lozano, SUPERVISOR PROP [employer]KING [address] [place] [address] Social History Tobacco Use Types Packs/Day Years [...] on filedocumented in this encounter Care Teams Clinical Pathologist Relationship Specialty Start Date End Date Patient, Has No Pcp Or Ref DO NOT EDIT THIS RECORD VIA PROVIDER ON THE FLY PCP - General Lapping Machine Set Up Operator 12/30/23 documented as of this encounter
--- OUTSIDE RECORDS SUMMARY | 2024-09-10 16:40 | XMS_ITS | Clinical Summary ---
Author Organization [facility] Address [address] [place] [address] Care Team Providers Care Sap Basis Administrator Name Role Phone Patient, Has No Pcp [...] Plan (01/03/2024 2:32 PM EDT): Presents from [facility] in the setting of urinary retention [...] Plan (01/03/2024 10:49 AM EDT): Presented from [facility] with hyponatremia (initially 123). Also had [...] Plan (01/02/2024 11:43 AM EDT): Presents from [facility] in the setting of urinary retention [...] Seroquel 25 mg twice daily Presents from [facility]'s forensic unit with documented history of schizophrenia. 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 Per documentation from [facility] patient has seen urology at [facility] in [place]. He was started on Flomax outpatient. In [...] 11:43 AM EDT): Paperwork from the [facility] indicates history of BPH with prior need for intermittent catheterization requiring urology evaluation in the past, records not available in our system). Per documentation from [facility] patient has seen urology at [facility] in [place]. He was started on Flomax outpatient. In [...] 1965 Hepatitis C Screening 1965 Sigmoidoscopy 1965 Medicare AWV 1966 Hepatitis B Vaccines (1 of 3 - 19+ 3-dose series) 1984 Zoster Vaccines (1 of 2) 12/15/2015 Pneumococcal Vaccine: 50+ Ye ars (2 of 2 - PCV) 06/27/2016 06/27/2015, 09/30/2012 COVID-19 Vaccine ( - 2023-2 5 season) 2024 03/17/2023, 03/31/2021, 07/23/2020, Additional history exists Alcohol/Substance Use Screening 06/05/2024 Depression Screening and Follow-Up 06/05/2024 Social Drivers of Health Tammy ual Screening 06/05/2024 Influenza Vaccine (Season Ended) 2025 03/17/2023, 04/11/2018, 02/17/2017, Additional history exists DTaP,Tdap,and Td Vaccines (3 - Td or Tdap) 02/28/2029 02/28/2019, 03/22/2014, 03/22/2014, Additional history exists RSV Vaccine (60+ years old a nd patients) (1 - 1-dose 75+ series) 2040 Insurance [facility] MEDICARE [facility] Advance Directives * Full Code (Latest Code Status on File) Date Activated Date Inactivated Comments 12/30/2023 7:22 PM 01/03/2024 8:48 PM * Presumed Full Code Date Activated Date Inactivated Comments 12/30/2023 7:00 PM 12/30/2023 7:22 PM Care Teams Sap Basis Administrator Relationship Specialty Start Date End Date Patient, Has No Pcp Or Ref DO NOT EDIT THIS RECORD VIA PROVIDER ON THE FLY PCP - General Unindentured Apprentice 12/30/23
== END 2024-09-10 14:40 | disposition home or self-care (01) ==
LOC: HO.HMCH 13:42
PROVIDERS: PCP Internal Medicine; Visit Provider Internal Medicine
DX: Z00.00 Encounter for general adult medical examination without abnormal findings (principal); F25.0 Schizoaffective disorder, bipolar type; E78.00 Pure hypercholesterolemia, unspecified; N31.9 Neuromuscular dysfunction of bladder, unspecified; N40.1 Benign prostatic hyperplasia with lower urinary tract symptoms; R33.8 Other retention of urine; K21.9 Gastro-esophageal reflux disease without esophagitis; K59.00 Constipation, unspecified; F41.9 Anxiety disorder, unspecified; F17.200 Nicotine dependence, unspecified, uncomplicated; Z12.11 Encounter for screening for malignant neoplasm of colon

== ENCOUNTER → 2024-09-10 13:41 | Outpatient (BNVA) | payer MEDICARE, MEDICAID, SELFPAY | PROVIDERS: PCP Internal Medicine; Visit Provider Internal Medicine | DX: Z00.00 Encounter for general adult medical examination without abnormal findings (principal); E78.00 Pure hypercholesterolemia, unspecified; N31.9 Neuromuscular dysfunction of bladder, unspecified; N40.1 Benign prostatic hyperplasia with lower urinary tract symptoms; R35.1 Nocturia; R33.8 Other retention of urine; K21.9 Gastro-esophageal reflux disease without esophagitis; K59.00 Constipation, unspecified; F41.9 Anxiety disorder, unspecified; F25.0 Schizoaffective disorder, bipolar type; F17.210 Nicotine dependence, cigarettes, uncomplicated; D64.9 Anemia, unspecified | CPT/HCPCS: 96127; 99212 ==

== ENCOUNTER 2024-12-05 09:46 | Emergency (ER) | payer MEDICARE, MEDICAID, SELFPAY ==
[2024-12-05 09:48] VITALS: BP 136/84; PULSE 102; RESP 18; TEMP 36.6; O2SAT 97; BMI 22.2
--- NOTE | 2024-12-05 09:58 | ED_ITS ---
HPI - Male Genitourinary General Chief complaint: Urogenital-Male Stated complaint: Santos issues Time Seen by Provider: 12/05/24 09:58 Source: patient, RN notes reviewed and old records reviewed Mode of arrival: ambulatory Limitations: no limitations History of Present Illness ED Provider: Yvette HPI Narrative: Patient is a 58-year-old male with history of schizoaffective disorder, BPH, neurogenic bladder, frequent UTIs presenting to the emergency department requesting removal of his indwelling urinary catheter which was placed at [facility] emergency department around 1-1/2 months ago. States that the catheter was placed for urinary retention. He reports that his leg bag has been leaking at his long-term and the staff is requesting that he have the catheter removed. He reports that he has straight cath supplies there. Staff reported to RN that patient does have straight cath supplies but was refusing to use them which is how he presented to [facility] for the indwelling catheter. Patient denies any abdominal pain, nausea, vomiting, fevers, hematuria or any other symptoms. He states the catheter is not leaking around his urethra it is leaking from the bag. Related Data Previous Rx's ?Medication ?Instructions ?Recorded polyethylene glycol 3350 17 17 g PO DAILY constipation 30 days 09/11/23 gram/dose oral powder (Miralax) #510 grams tamsulosin 0.4 mg capsule 0.4 mg PO QAM 90 days #90 ca ps 11/01/24 atorvastatin 20 mg tablet 20 mg PO QPM 30 days #30 tab s 11/14/24 cefuroxime axetil 500 mg tablet 500 mg PO BID #13 tabs 12/05/24 Allergies Allergy/AdvReac Type Severity Reaction Status Date / Time No Known Allergies (NO KNOWN Allergy Unknown UNKNOWN Verified 12/05/24 09:53 ALLERGIES) Review of Systems Review of Systems: As per HPI Yes all other systems are reviewed and are negative Constitutional: Constitutional: Reports as per HPI [facility] Past Medical History Medical History (Updated 12/05/24 @ 11:44 by Cyndi Crawford NP) Smoker GERD without esophagitis Tubular adenoma of colon (~2018) Personal history of nicotine dependence Constipation Back pain Schizoaffective disorder, bipolar type Anxiety Benign prostatic hyperplasia with lower urinary tract symptoms Pure hypercholesterolemia Thought disorder Bipolar 1 disorder Mood disorder Surgical History History of colonoscopy (~04/2019) History of prostate surgery (~04/2019) History of open reduction and internal fixation (ORIF) procedure (~08/2018) Family History Family History Father Lung cancer BPH (benign prostatic hyperplasia) Mother Dementia Brother Myocardial infarction Other Mental health problem Substance abuse Social History Social History Household Members: None Housing: Assisted Living Facility Housing Other:: long-term Do you presently have visiting nurse or other home services: No Alcohol intake: never Patient Tobacco Use Status: Current everyday Tobacco user Tobacco use type: Cigarette Cigarette Packs Per Day: 1 Cigarettes Per Day: 20.0 Years Smoked: 10 Smoked in Last 30 Days: Yes e-Cigarette/Vaping Use: Never Used Second Hand Smoke Exposure: Yes Use of substances other than those prescribed or required for medical reasons: No Advance Directives: No Advance Directives Information Provided: No service: No Current occupational status: employed Current occupation: [email or web address] Sexual orientation: Decline to Answer Cognitive needs: No Hearing needs: No Vision needs: Yes Physical Exam Vital Signs: Vital Signs: Last Vital Signs Temp 98.6 F 12/05/24 10:19 Pulse 75 12/05/24 10:19 Resp 16 12/05/24 10:19 BP 129/61 12/05/24 10:19 Pulse Ox 97 12/05/24 10:19 O2 Del Method Room Air 12/05/24 10:19 BMI result Body Mass Index 22.2 Vital signs have been reviewed and appear to be correct. Blood pressure normal. Heart rate normal. Respiratory rate normal. Temperature normal. Oxygen saturation normal. Const: General: cooperative, healthy appearing and no acute distress Orientation/consciousness: oriented to person, oriented to place, oriented to time and patient oriented x3 Limitations: no limitations HEENT: Head: Yes normocephalic and Yes atraumatic Ears: external ears normal General nose exam: Normal external nose present Face and sinus: Yes face symmetric Mouth: oropharynx normal and moist mucous membranes Throat: Yes uvula midline Eyes: Pupils: Equal, round and reactive pupils present Neck: Neck: Yes normal visual inspection and Yes supple Resp: Effort & Inspection: normal respiratory effort and able to speak in complete sentences Auscultation: clear to auscultation bilaterally Cardio: Rate: regular rate Rhythm: regular rhythm Heart sounds: S1 normal heart sound present and S2 normal heart sound present GI: Palpation (GI): Soft to palpation and nontender Auscultation: normoactive bowel sounds : Other: indwelling urinary catheter present upon arrival draining cloudy yellow urine General: Yes no CVA tenderness Back/Spine/Pelvis: Back: no CVA tenderness Skin: General skin exam: elasticity normal and turgor normal Neuro: General: oriented to person, oriented to place, oriented to time, patient oriented x3, moves all extremities, no focal motor deficits and CN's II- XI intact bilaterally Cranial nerves: Yes Equal, round and reactive pupils present Cognition (Neuro): normal cognition Extrem: General: Yes full ROM, Yes no pedal edema and Yes no calf tenderness Psych: Mental Status: mental status grossly normal Affect: normal affect Thought process: Normal thought process present Medications Administered Discontinued Medications Generic Name Dose Route Start Last Admin Trade Name Freq PRN Reason Stop Dose Admin Cefuroxime Axetil 500 mg 12/05/24 11:25 12/05/24 11:30 Cefuroxime Axetil 500 Mg Tablet PO 12/05/24 11:26 500 mg ONCE ONE Administration Lorazepam 1 mg 12/05/24 11:05 12/05/24 11:10 Lorazepam 1 Mg Tablet PO 12/05/24 11:06 1 mg ONCE ONE Administration Medical Decision Making Medical Decision Making [facility] Narrative: Patient is a 58-year-old male with history of schizoaffective disorder, BPH, neurogenic bladder, frequent UTIs presenting to the emergency department requesting removal of his indwelling urinary catheter which was placed at [facility] emergency department around 1-1/2 months ago. On exam patient is awake, A+Ox3, VS WNL, afebrile, normal neurological exam without focal deficits, physical exam findings as above. Given reported symptoms and physical exam findings, initial differential includes but is not limited to UTI, urinary retention, malfunctioning catheter. Catheter appears to be draining appropriately without leaks. UA notable for 3+ leukocytes, positive nitrites, 2+ blood. Will treat with cefuroxime. Case discussed with Dr. Galo who recommends touching base with [facility] as this is patient's urologist. Attempted to speak with a provider at [facility], but had to leave a message, no return call back. Patient insistent on having catheter removed and continues to state that he has straight cath supplies at his long-term. Will remove catheter and treat for UTI but discussed with patient that if he does not straight cath or urinate on his own, he will need to return to the emergency department. Patient verbalized understanding of and agreement with this plan. Differential Diagnosis Differential Diagnoses: The differential diagnosis associated with the presentation includes As per [facility] Admission/Observation Consideration of admission/observation: Escalation of care including admission/observation considered Patient would have been admitted to the hospital had their work up had any findings where hospital admission was appropriate and their clinical presentation warranted hospital admission. Consult Healthcare Provider Management of the patient was discussed with: Student Driving Instructor (Dr. Galo) Lab Data [facility] Lab Attestation statement: I reviewed the patient's lab results. As per [facility] Labs: Lab Results 12/05/24 Range/Units 11:02 Urine Color Yellow Urine Appearance Clear Urine pH 6.5 (5.0-9.0) Ur Specific [place] <= 1.005 (1.005-1.025) Urine Protein Negative (Neg-Trace) mg/dL Urine Glucose (UA) Negative (Negative) mg/dL Urine Ketones Negative (Negative) mg/dL Urine Blood Moderate (2+) H (Negative) Urine Nitrite Positive H (Negative) Ur Leukocyte Esterase Large (3+) H (Negative) Urine RBC 0-2 (0-2) /HPF Urine WBC 0-5 (0-5) /HPF Ur Squamous Epith Cells 0-2 (0-2) /HPF Ur Transition Epith Cell Present Urine Bacteria Trace (None Seen) Hyaline Casts 0-2 (0-2) /LPF External Record Review External record reviewed: Inpatient record, Office record and Outpatient record Prescription Management I considered prescription management with: Antibiotic Discharge Plan Discharge Clinical Impression: Catheter-associated urinary tract infection Qualifiers: Indwelling urinary catheter type: indwelling urethral catheter Encounter type: initial encounter Qualified Code(s): T83.511A - Infection and inflammatory reaction due to indwelling urethral catheter, initial encounter Patient Disposition: Home, Self-Care Instructions: Urinary Tract Infection in Men (ED), Catheter-associated Urinary Tract Infection (ED) Additional Instructions: You have been evaluated in the emergency department today for your urinary symptoms. Your evaluation, including urinalysis, suggests that your symptoms are due to urinary tract infection. Please take your prescribed antibiotics for the full course of medication as directed. Your indwelling urinary catheter was removed in the emergency department today and it is important that you use your straight cath supplies to straight cath yourself going forward. If you are unable to straight cath yourself you will need to return to an emergency department to have another catheter placed. If you are unable to urinate for more than 12 hours, present to the nearest emergency department. Please follow-up with your primary care provider and urologist within 2 days. Return to the emergency department if you experience fevers 100.4? F or greater, worsening or uncontrolled pain, vomiting, flank pain, or for any other concerning symptoms. Prescriptions: New cefuroxime axetil 500 mg tablet 500 mg PO BID Qty: 13 0RF No Action polyethylene glycol 3350 [Miralax] 17 gram/dose powder 17 g PO DAILY 30 Days Qty: 510 4RF tamsulosin 0.4 mg capsule 0.4 mg PO QAM 90 Days Qty: 90 0RF atorvastatin 20 mg tablet 20 mg PO QPM 30 Days Qty: 30 1RF Referrals: [facility] [Outside] - 1 week Referral Note: Patient presented to ED requesting removal of indwelling catheter and states he has straight cath supplies at home. Also found to have UTI and treated with cefuroxime. Clinical Impression: Catheter-associated urinary tract infection Print Language: Syriac
[2024-12-05 10:03] VITALS: BP 136/84; PULSE 102; RESP 18; TEMP 36.6; O2SAT 97
--- NOTE | 2024-12-05 10:07 | PC.NURSE ---
Pt A&O X4 VSS NAD. C/O gas pains in abd. Otherwise only complaint is leaking catheter bag which is not leaking at this time.
[2024-12-05 10:09] VITALS: BP 113/72; PULSE 83; RESP 16; O2SAT 98
[2024-12-05 10:19] VITALS: BP 129/61; PULSE 75; RESP 16; TEMP 37; O2SAT 97
--- OUTSIDE RECORDS SUMMARY | 2024-12-05 11:10 | XMS_ITS | Encounter Summary ---
Author Organization [facility] Address [address] [place] [address] Care Team Providers Care Industrial Gas Servicer Supervisor Name Role Phone Patient, Has No Pcp Or Ref Primary Care Provider Unavailable Encounter Details Date Type Department Care Team (Late st Contact Info) Description 01/04/2024 Community Orders [facility] EpicCare Link [address] [place] [address] Bethany Lozano, WINTER SPORTS MANAGER [address] [place] [address] Social History Tobacco Use Types Packs/Day Years [...] on filedocumented in this encounter Care Teams Industrial Gas Servicer Supervisor Relationship Specialty Start Date End Date Patient, Has No Pcp Or Ref DO NOT EDIT THIS RECORD VIA PROVIDER ON THE FLY PCP - General [place] 12/30/23 documented as of this encounter
--- OUTSIDE RECORDS SUMMARY | 2024-12-05 11:10 | XMS_ITS | Clinical Summary ---
Author Organization [facility] Address [address] [place] [address] Phone Care Team Providers Care Mat Making Machine Tender Name Role Phone Dk Rodriguez MD Primary Care Provider Allergies No known active allergies Medications No known medications Encounters Date Type Department Care Team Description 12/04/2024 11:34 PM EDT - 12/05/2024 1:06 AM EDT [facility] Emergency [address] [place] [phone] Discharge Disposition: Home or Self Care 12/02/2024 10:00 PM EDT - 12/03/2024 12:28 AM EDT [facility] Emergency [address] [place] [phone] Discharge Disposition: Home or Self Care 11/27/2024 10:17 PM EDT - 11/28/2024 8:54 AM EDT [facility] Emergency [address] [place] [phone] Discharge Disposition: Home or Self Care 11/26/2024 9:40 PM EDT - 11/27/2024 2:06 AM EDT [facility] Emergency [address] [place] [phone] Discharge Disposition: Home or Self Care 11/24/2024 11:19 PM EDT - 11/25/2024 1:14 AM EDT [facility] Emergency [address] [place] [phone] Discharge Disposition: Home or Self Care 11/23/2024 11:27 PM EDT - 11/24/2024 1:10 AM EDT Emergency [facility] Emergency [address] [place] [phone] Urinary retention (Primary Dx) Discharge Disposition: Home or Self Care 11/22/2024 10:08 PM EDT - 11/23/2024 2:55 AM EDT [facility] Emergency [address] [place] [address] Discharge Disposition: Home or Self Care 11/18/2024 3:47 AM EDT - 11/18/2024 5:34 AM EDT Emergency [facility] Emergency [address] [place] [phone] Discharge Disposition: Home or Self Care 11/09/2024 12:37 AM EDT - 11/09/2024 4:23 AM EDT [facility] Emergency [address] [place] [phone] Discharge Disposition: Home or Self Care from Last 3 Months Medical History Medical History Date Comments Bipolar 1 disorder ([facility] V24, [facility] V28) Mood disorder ([facility] V24) Hyperactivity of bladder Social History Tobacco Use [...] Sign Reading Time Taken Comments Blood Pressure 126/82 12/04/2024 11:44 PM EDT Pulse 82 12/04/2024 11:44 PM EDT Temperature 36.9 C (98.5 F) 12/04/2024 11:44 PM EDT Respiratory Rate 16 12/04/2024 11:44 PM EDT Oxygen Saturation 98% 12/04/2024 11:44 PM EDT Inhaled Oxygen Concentration - - Weight 68 kg (150 lb) 12/04/2024 11:44 PM EDT Height 175.3 cm (5' 9 ) 12/04/2024 11:44 PM EDT Body Mass Index 22.15 12/04/2024 11:44 PM EDT Plan of Treatment Health Maintenance [...] 07/23/2020, Additional history exists Influenza Vaccine (#1) 2025 , 04/11/2018, 02/17/2017, Additional history exists DTaP,Tdap,and [...] Procedure Name Priority Date/Time Associated Diagnosis Comments CBC WITH AUTO DIFFERENTIAL STAT 12/05/2024 12:00 AM EDT COMPREHENSIVE METABOLIC PANEL STAT 12/05/2024 12:00 AM EDT CBC AND DIFFERENTIAL STAT 12/05/2024 12:00 AM EDT [facility] URINE CULTURE TUBE STAT 11/23/2024 11:28 PM EDT URINALYSIS WITH REFLEX MICROSCOPIC AND CULTURE STAT 11/23/2024 11:28 PM EDT URINALYSIS WITH REFLEX MICROSCOPIC AND CULTURE STAT 11/23/2024 11:28 PM EDT CULTURE URINE STAT 11/23/2024 11:28 PM EDT from Last 3 Months Results * (ABNORMAL) CBC auto differential (12/05/2024 12:00 AM EDT) WBC 7.4 4.8 - 10.8 K/mcL LAB HEMETOLOGY METHOD 12/05/2024 12:[address] [facility] RBC 4.00(L) 4.50 - 5.50 M/mcL LAB HEMETOLOGY METHOD 12/05/2024 12:[address] [facility] Hemoglobin 12.7(L) 13.5 - 17.5 g/dL LAB HEMETOLOGY METHOD 12/05/2024 12:[address] [facility] Hematocrit 37.3(L) 42.0 - 54.0 % LAB HEMETOLOGY METHOD 12/05/2024 12:[address] [facility] MCV 93.7 79.0 - 98.0 FL LAB HEMETOLOGY METHOD 12/05/2024 12:52 AM [facility] MCH 31.9 27.0 - 32.0 pcg LAB HEMETOLOGY METHOD 12/05/2024 12:52 AM [facility] MCHC 34.0 32.0 - 37.0 g/dL LAB HEMETOLOGY METHOD 12/05/2024 12:52 AM [facility] RDW 13.2 11.0 - 15.0 % LAB HEMETOLOGY METHOD 12/05/2024 12:52 AM [facility] Platelets 207 130 - 400 K/mcL LAB HEMETOLOGY METHOD 12/05/2024 12:52 AM [facility] MPV 9.4 7.0 - 11.0 FL LAB HEMETOLOGY METHOD 12/05/2024 12:52 AM [facility] NRBC 0.0 <1.0 % LAB HEMETOLOGY METHOD 12/05/2024 12:52 AM [facility] NRBC Absolute 0.00 <0.10 K/mcL LAB HEMETOLOGY METHOD 12/05/2024 12:52 AM [facility] Neutrophils Relative 56.8 % LAB HEMETOLOGY METHOD 12/05/2024 12:52 AM [facility] Lymphocytes Relative 27.7 % LAB HEMETOLOGY METHOD 12/05/2024 12:52 AM [facility] Monocytes Relative 11.1 % LAB HEMETOLOGY METHOD 12/05/2024 12:52 AM [facility] Eosinophils Relative 3.3 % LAB HEMETOLOGY METHOD 12/05/2024 12:52 AM [facility] Basophils Relative 0.8 % LAB HEMETOLOGY METHOD 12/05/2024 12:52 AM [facility] Immature Granulocytes Relative 0.3 % LAB HEMETOLOGY METHOD 12/05/2024 12:[address] [facility] Neutrophils Absolute 4.19 1.50 - 7.00 K/mcL LAB HEMETOLOGY METHOD 12/05/2024 12:[address] [facility] Lymphocytes Absolute 2.04 1.00 - 5.00 K/mcL LAB HEMETOLOGY METHOD 12/05/2024 12:[address] [facility] Monocytes Absolute 0.82 0.20 - 1.00 K/mcL LAB HEMETOLOGY METHOD 12/05/2024 12:[address] [facility] Eosinophils Absolute 0.24 0.00 - 0.50 K/mcL LAB HEMETOLOGY METHOD 12/05/2024 12:[address] [facility] Basophils Absolute 0.06 0.00 - 0.20 K/mcL LAB HEMETOLOGY METHOD 12/05/2024 12:[address] [facility] Immature Granulocytes Absolute 0.02 0.00 - 0.03 K/mcL LAB HEMETOLOGY METHOD 12/05/2024 12:[address] [facility] Blood Venous blood specimen / Unknown Venipuncture / Unknown 12/05/2024 12:00 AM EDT 12/05/2024 12:45 AM EDT us Dalila Alberto MD LAB BLOOD ORDERABLES Fin al Result [facility] [address] [place] [address], * (ABNORMAL) Comprehensive metabolic panel (12/05/2024 12:00 AM EDT) Sodium 139 133 - 145 mmol/L LAB CHEMISTRY METHOD 12/05/2024 1:[address] [facility] Potassium 3.6 3.5 - 5.5 mmol/L LAB CHEMISTRY METHOD 12/05/2024 1:[address] [facility] Chloride 108 96 - 110 mmol/L LAB CHEMISTRY METHOD 12/05/2024 1:25 AM [facility] CO2 26 21 - 32 mmol/L LAB CHEMISTRY METHOD 12/05/2024 1:25 AM [facility] Anion Gap 5 3 - 11 LAB CHEMISTRY METHOD 12/05/2024 1:25 AM [facility] Glucose 80 70 - 100 mg/dL LAB CHEMISTRY METHOD 12/05/2024 1:25 AM [facility] BUN 8 5 - 25 mg/dL LAB CHEMISTRY METHOD 12/05/2024 1:25 AM [facility] Creatinine 0.69(L) 0.70 - 1.30 mg/dL LAB CHEMISTRY METHOD 12/05/2024 1:25 AM [facility] eGFR 107 >=60 mL/min/1. 73m2 LAB CHEMISTRY METHOD 12/05/2024 1:25 AM [facility] Comment:Calculation based on the Chronic Kidney Disease Epidemiology Collaboration (CKD-EPI) equation refit without adjustment for race. BUN/Creatinine Ratio 11.6 LAB CHEMISTRY METHOD 12/05/2024 1:25 AM [facility] Calcium 8.6 8.5 - 10.5 mg/dL LAB CHEMISTRY METHOD 12/05/2024 1:25 AM [facility] AST (SGOT) 13 10 - 42 unit/L LAB CHEMISTRY METHOD 12/05/2024 1:25 AM [facility] ALT (SGPT) 16 10 - 60 unit/L LAB CHEMISTRY METHOD 12/05/2024 1:25 AM [facility] Alkaline Phosphatase 67 42 - 121 unit/L LAB CHEMISTRY METHOD 12/05/2024 1:25 AM [facility] Total Protein 6.3 6.0 - 8.0 g/dL LAB CHEMISTRY METHOD 12/05/2024 1:25 AM [facility] Albumin 3.3 3.2 - 5.0 g/dL LAB CHEMISTRY METHOD 12/05/2024 1:25 AM [facility] Total Bilirubin 0.4 0.0 - 1.4 mg/dL LAB CHEMISTRY METHOD 12/05/2024 1:25 AM [facility] Blood Venous blood specimen / Unknown Venipuncture / Unknown 12/05/2024 12:00 AM EDT 12/05/2024 12:45 AM EDT us Dalila Alberto MD LAB BLOOD ORDERABLES Fin al Result [facility] [address] [place] [address], [place] [phone] * (ABNORMAL) Urinalysis with reflex microscopic and culture (11/23/2024 11:28 PM EDT) Specific [place] Urine 1.007 1.003 - 1.030 LAB URINALYSIS - AUTOMATED METHOD 11/24/2024 12:11 AM [facility] pH, Urine 6.5 5.0 - 8.0 pH LAB URINALYSIS - AUTOMATED METHOD 11/24/2024 12:11 AM [facility] Leukocytes, Urine Moderate(A) Negative LAB URINALYSIS - AUTOMATED METHOD 11/24/2024 12:11 AM [facility] Nitrite, Urine Negative Negative LAB URINALYSIS - AUTOMATED METHOD 11/24/2024 12:11 AM [facility] Protein, Urine Negative <=Trace mg/dL LAB URINALYSIS - AUTOMATED METHOD 11/24/2024 12:11 AM [facility] Glucose, Urine Negative Negative mg/dL LAB URINALYSIS - AUTOMATED METHOD 11/24/2024 12:11 AM [facility] Ketones, Urine Negative Negative mg/dL LAB URINALYSIS - AUTOMATED METHOD 11/24/2024 12:11 AM [facility] Urobilinogen , Urine 0.2 0.2 - 1.0 mg/dL LAB URINALYSIS - AUTOMATED METHOD 11/24/2024 12:11 AM [facility] Bilirubin, Urine Negative Negative LAB URINALYSIS - AUTOMATED METHOD 11/24/2024 12:11 AM [facility] Blood, Urine Negative Negative LAB URINALYSIS - AUTOMATED METHOD 11/24/2024 12:11 AM [facility] RBC, Urine 1.3 0 - 4 /HPF LAB URINALYSIS - AUTOMATED METHOD 11/24/2024 12:11 AM [facility] WBC, Urine 8.1(H) 0 - 4 /HPF LAB URINALYSIS - AUTOMATED METHOD 11/24/2024 12:11 AM [facility] Squamous Epithelial, Urine 14 0 - 60 /LPF LAB URINALYSIS - AUTOMATED METHOD 11/24/2024 12:11 AM [facility] Bacteria, Urine Negative Negative /HPF LAB URINALYSIS - AUTOMATED METHOD 11/24/2024 12:11 AM [facility] Hyaline Casts, Urine 0.4 0 - 3 /LPF LAB URINALYSIS - AUTOMATED METHOD 11/24/2024 12:11 AM [facility] Urine Urine specimen obtained by clean catch procedure / Unknown Non-blood Collection / Unknown 11/23/2024 11:28 PM EDT 11/24/2024 12:03 AM EDT us Ming Love MD LAB URINE ORDERABLES Final Res ult [facility] [address] [place] [address], [place] [phone] * [facility] urine culture tube (11/23/2024 11:28 PM EDT) Extra Tube Hold for add-ons. 11/25/2024 1:[address] [facility] Comment:Auto resulted. Urine Urine specimen obtained by clean catch procedure / Unknown Non-blood Collection / Unknown 11/23/2024 11:28 PM EDT 11/24/2024 12:03 AM EDT us Ming Loev MD LAB URINE ORDERABLES Final Res ult Performing Organization Address [facility]/ZIP Co de Phone Number [facility] [address] [place] [address], [place] [phone] * Culture urine (11/23/2024 11:28 PM EDT) Culture, Urine <10,000 CFU/mL gram positive cocci, insignificant count, no further workup 11/25/2024 10:[address] [facility] Urine Urine specimen obtained by clean catch procedure / Unknown Non-blood Collection / Unknown 11/23/2024 11:28 PM EDT 11/24/2024 12:11 AM EDT us Mnig Love MD LAB MICROBIOLOGY - GENERAL ORD ERABLES Final Result Performing Organization Address [facility] Co de Phone Number [facility] [address] [place] [address], [place] [phone] from Last 3 Months [place] [id number] [address] MEDICARE [place]ICA[place] - [place] Care Teams Mat Making Machine Tender Relationship Specialty Start Date End Date Dk Rodriguez MD [address] [place] [address] [place] [address] PCP - General Internal Medicine 07/16/24
--- NOTE | 2024-12-05 11:11 | PC.NURSE ---
Pt anxious and refusing leg bag change- asking for Ativan To help caml me down because noone is listening Pt reassured that we hearing him and is aware of plan.
[2024-12-05 11:15] LABS: Appearance Urine Clear; Glucose Urine UA Negative (Negative); PH 6.5 (5.0-9.0); Specific Gravity - Urine <= 1.005 (1.005-1.025); UMIC TRIGGER UACC YES
[2024-12-05 11:33] LABS: UACC Culture Trigger YES
[2024-12-05 12:29] VITALS: BP 129/61; PULSE 75; RESP 16; TEMP 37; O2SAT 97
== END 2024-12-05 12:30 | disposition home or self-care (01) ==
PROVIDERS: Registered Nurse Emergency; Emergency Provider Emergency Medicine Emergency Medical Services; PCP Internal Medicine
DX: N31.9 Neuromuscular dysfunction of bladder, unspecified (principal); F17.210 Nicotine dependence, cigarettes, uncomplicated; Z79.899 Other long term (current) drug therapy
CPT/HCPCS: 81001; 87086; 87088; 87186; 99283; 99284

== ENCOUNTER 2025-01-02 11:42 | Emergency (ER) | payer MEDICARE, MEDICAID, SELFPAY ==
[2025-01-02 11:50] VITALS: BP 130/80; PULSE 70; O2SAT 96
[2025-01-02 11:52] VITALS: BP 130/80; PULSE 64; RESP 18; TEMP 36.5; O2SAT 99; BMI 21.6
--- OUTSIDE RECORDS SUMMARY | 2025-01-02 12:38 | XMS_ITS | Clinical Summary ---
Author Organization [facility] Address [address] [place] [address] Phone Care Team Providers Care Licensed Embalmer Name Role Phone Dk Rodriguez MD Primary Care Provider Allergies No known active allergies Medications No known medications Encounters Date Type Department Care Team Description 12/04/2024 11:34 PM EDT - 12/05/2024 1:06 AM EDT [facility] [address] [place] [phone] Discharge Disposition: Home or Self Care 12/02/2024 10:00 PM EDT - 12/03/2024 12:28 AM EDT [facility] [address] [place] [phone] Discharge Disposition: Home or Self Care 11/27/2024 10:17 PM EDT - 11/28/2024 8:54 AM EDT [facility] [address] [place] [phone] Discharge Disposition: Home or Self Care 11/26/2024 9:40 PM EDT - 11/27/2024 2:06 AM EDT [facility] [address] [place] [phone] Discharge Disposition: Home or Self Care 11/24/2024 11:19 PM EDT - 11/25/2024 1:14 AM EDT [facility] [address] [place] [phone] Discharge Disposition: Home or Self Care 11/23/2024 11:27 PM EDT - 11/24/2024 1:10 AM EDT Emergency [facility] Emergency [address] [place] [phone] Urinary retention (Primary Dx) Discharge Disposition: Home or Self Care 11/22/2024 10:08 PM EDT - 11/23/2024 2:55 AM EDT [facility] Emergency [address] [place] [phone] Discharge Disposition: Home or Self Care 11/18/2024 3:47 AM EDT - 11/18/2024 5:34 AM EDT Emergency [facility] Emergency [address] [place] [phone] Discharge Disposition: Home or Self Care 11/09/2024 12:37 AM EDT - 11/09/2024 4:23 AM EDT [facility] Emergency [address] [place] [phone] Discharge Disposition: Home or Self Care from Last 3 Months Medical History Medical History Date Comments Bipolar 1 disorder ([facility] V24, [facility] V28) Mood disorder ([facility] V24) Hyperactivity of bladder Social History Tobacco [...] Panel) 05/08/2022 Colorectal Cancer Screening: Colonoscopy 05/08/2022 HIV Screening 05/08/2022 Hepatitis C Screening 05/08/2022 Medicare Annual Wellness Visit 05/08/2022 Social Influencers of Health Screening 05/08/2022 COVID-19 Vaccine ( season) 2024 03/17/2023, 03/31/2021, 07/23/2020, Additional history exists Depression Screening 06/05/2024 Influenza Vaccine (#1) 2025 , 04/11/2018, 02/17/2017, Additional history exists DTaP,Tdap,and Td Vaccines (5 - Td or Tdap) 02/28/2029 02/28/2019, 03/22/2014, 03/22/2014, Additional history exists RSV Immunization Adult Patients (1 - 1-dose 75+ series) 2040 HIB Vaccines Aged Out No longer eligi [...] K/mcL LAB HEMETOLOGY METHOD 12/05/2024 12:52 AM [facility] RBC 4.00(L) 4.50 - 5.50 M/mcL LAB HEMETOLOGY METHOD 12/05/2024 12:52 AM T [facility] Hemoglobin 12.7(L) 13.5 - 17.5 g/dL LAB HEMETOLOGY METHOD 12/05/2024 12:52 AM [facility] Hematocrit 37.3(L) 42.0 - 54.0 % LAB HEMETOLOGY METHOD 12/05/2024 12:52 AM [facility] MCV 93.7 79.0 - 98.0 FL LAB HEMETOLOGY METHOD 12/05/2024 12:52 AM [facility] MCH 31.9 27.0 - 32.0 pcg LAB HEMETOLOGY METHOD 12/05/2024 12:52 AM [facility] MCHC 34.0 32.0 - 37.0 g/dL LAB HEMETOLOGY METHOD 12/05/2024 12:52 AM [facility] RDW 13.2 11.0 - 15.0 % LAB HEMETOLOGY METHOD 12/05/2024 12:52 AM [facility] Platelets 207 130 - 400 K/mcL LAB HEMETOLOGY METHOD 12/05/2024 12:52 AM [facility] MPV 9.4 7.0 - 11.0 FL LAB HEMETOLOGY METHOD 12/05/2024 12:52 AM [facility] NRBC 0.0 <1.0 % LAB HEMETOLOGY METHOD 12/05/2024 12:52 AM [facility] NRBC Absolute 0.00 <0.10 K/mcL LAB HEMETOLOGY METHOD 12/05/2024 12:52 AM [facility] Neutrophils Relative 56.8 % LAB HEMETOLOGY METHOD 12/05/2024 12:52 AM [facility] Lymphocytes Relative 27.7 % LAB HEMETOLOGY METHOD 12/05/2024 12:52 AM [facility] Monocytes Relative 11.1 % LAB HEMETOLOGY METHOD 12/05/2024 12:52 AM [facility] Eosinophils Relative 3.3 % LAB HEMETOLOGY METHOD 12/05/2024 12:52 AM [facility] Basophils Relative 0.8 % LAB HEMETOLOGY METHOD 12/05/2024 12:52 AM [facility] Immature Granulocytes Relative 0.3 % LAB HEMETOLOGY METHOD 12/05/2024 12:52 AM [facility] Neutrophils Absolute 4.19 1.50 - 7.00 K/mcL LAB HEMETOLOGY METHOD 12/05/2024 12:52 AM EDT [facility] Lymphocytes Absolute 2.04 1.00 - 5.00 K/[facility] LAB HEMETOLOGY METHOD 12/05/2024 12:52 AM EDT [facility] Monocytes Absolute 0.82 0.20 - 1.00 K/mcL LAB HEMETOLOGY METHOD 12/05/2024 12:52 AM EDT [facility] Eosinophils Absolute 0.24 0.00 - 0.50 K/[facility] LAB HEMETOLOGY METHOD 12/05/2024 12:52 AM EDT [facility] Basophils Absolute 0.06 0.00 - 0.20 K/[facility] LAB HEMETOLOGY METHOD 12/05/2024 12:52 AM [facility] Immature Granulocytes Absolute 0.02 0.00 - 0.03 K/[facility] LAB HEMETOLOGY METHOD 12/05/2024 12:52 AM T [facility] Blood Venous blood specimen / Unknown Venipuncture / Unknown 12/05/2024 12:00 AM EDT 12/05/2024 12:45 AM EDT us Dalila Alberto MD LAB BLOOD ORDERABLES Fin al Result [facility] [address] [place] [address], * (ABNORMAL) Comprehensive metabolic panel (12/05/2024 12:00 AM EDT) Sodium 139 133 - 145 mmol/L LAB CHEMISTRY METHOD 12/05/2024 1:25 AM [facility] Potassium 3.6 3.5 - 5.5 mmol/L LAB CHEMISTRY METHOD 12/05/2024 1:25 AM [facility] Chloride 108 96 - 110 mmol/L LAB CHEMISTRY METHOD 12/05/2024 1:25 AM [facility] CO2 26 21 - 32 mmol/L LAB CHEMISTRY METHOD 12/05/2024 1:25 AM [facility] Anion Gap 5 3 - 11 LAB CHEMISTRY METHOD 12/05/2024 1:25 AM [facility] Glucose 80 70 - 100 mg/dL LAB CHEMISTRY METHOD 12/05/2024 1:25 AM [facility] BUN 8 5 - 25 mg/dL LAB CHEMISTRY METHOD 12/05/2024 1:25 AM [facility] Creatinine 0.69(L) 0.70 - 1.30 mg/dL LAB CHEMISTRY METHOD 12/05/2024 1:25 AM [facility] eGFR 107 >=60 mL/min/1. 73m2 LAB CHEMISTRY METHOD 12/05/2024 1:25 AM [facility] Comment:Calculation based on the Chronic Kidney Disease Epidemiology Collaboration (CKD-EPI) equation refit without adjustment for race. BUN/Creatinine Ratio 11.6 LAB CHEMISTRY METHOD 12/05/2024 1:25 AM [facility] Calcium 8.6 8.5 - 10.5 mg/dL LAB CHEMISTRY METHOD 12/05/2024 1:25 AM [facility] AST (SGOT) 13 10 - 42 unit/L LAB CHEMISTRY METHOD 12/05/2024 1:25 AM [facility] ALT (SGPT) 16 10 - 60 unit/L LAB CHEMISTRY METHOD 12/05/2024 1:25 AM [facility] Alkaline Phosphatase 67 42 - 121 unit/L LAB CHEMISTRY METHOD 12/05/2024 1:25 AM [facility] Total Protein 6.3 6.0 - 8.0 g/dL LAB CHEMISTRY METHOD 12/05/2024 1:25 AM [facility] Albumin 3.3 3.2 - 5.0 g/dL LAB CHEMISTRY METHOD 12/05/2024 1:25 AM [facility] Total Bilirubin 0.4 0.0 - 1.4 mg/dL LAB CHEMISTRY METHOD 12/05/2024 1:25 AM [facility] Blood Venous blood specimen / Unknown Venipuncture / Unknown 12/05/2024 12:00 AM EDT 12/05/2024 12:45 AM EDT Dalila Alberto MD LAB BLOOD ORDERABLES Fin al Result [facility] [address] [place] [address], * (ABNORMAL) Urinalysis with reflex microscopic and culture (11/23/2024 11:28 PM EDT) Specific Towner Urine 1.007 1.003 - 1.030 LAB URINALYSIS - AUTOMATED METHOD 11/24/2024 12:11 AM [facility] pH, Urine 6.5 5.0 - 8.0 pH LAB URINALYSIS - AUTOMATED METHOD 11/24/2024 12:11 AM [facility] Leukocytes, Urine Moderate(A) Negative LAB URINALYSIS - AUTOMATED METHOD 11/24/2024 12:11 AM [facility] Nitrite, Urine Negative Negative LAB URINALYSIS - AUTOMATED METHOD 11/24/2024 12:11 AM [facility] Protein, Urine Negative <=Trace mg/dL LAB URINALYSIS - AUTOMATED METHOD 11/24/2024 12:11 AM [facility] Glucose, Urine Negative Negative mg/dL LAB URINALYSIS - AUTOMATED METHOD 11/24/2024 12:11 AM [facility] Ketones, Urine Negative Negative mg/dL LAB URINALYSIS - AUTOMATED METHOD 11/24/2024 12:11 AM [facility] Urobilinogen , Urine 0.2 0.2 - 1.0 mg/dL LAB URINALYSIS - AUTOMATED METHOD 11/24/2024 12:11 AM [facility] Bilirubin, Urine Negative Negative LAB URINALYSIS - AUTOMATED METHOD 11/24/2024 12:11 AM [facility] Blood, Urine Negative Negative LAB URINALYSIS - AUTOMATED METHOD 11/24/2024 12:11 AM [facility] RBC, Urine 1.3 0 - 4 /HPF LAB URINALYSIS - AUTOMATED METHOD 11/24/2024 12:11 AM [facility] WBC, Urine 8.1(H) 0 - 4 /HPF LAB URINALYSIS - AUTOMATED METHOD 11/24/2024 12:11 AM [facility] Squamous Epithelial, Urine 14 0 - 60 /LPF LAB URINALYSIS - AUTOMATED METHOD 11/24/2024 12:11 AM [facility] Bacteria, Urine Negative Negative /HPF LAB URINALYSIS - AUTOMATED METHOD 11/24/2024 12:11 AM [facility] Hyaline Casts, Urine 0.4 0 - 3 /LPF LAB URINALYSIS - AUTOMATED METHOD 11/24/2024 12:11 AM [facility] Urine Urine specimen obtained by clean catch procedure / Unknown Non-blood Collection / Unknown 11/23/2024 11:28 PM EDT 11/24/2024 12:03 AM EDT us Ming Love MD LAB URINE ORDERABLES Final Res ult [facility] [address] [place] [address], * Rockwell urine culture tube (11/23/2024 11:28 PM EDT) Extra Tube Hold for add-ons. 11/25/2024 1:01 AM [facility] Comment:Auto resulted. Urine Urine specimen obtained by clean catch procedure / Unknown Non-blood Collection / Unknown 11/23/2024 11:28 PM EDT 11/24/2024 12:03 AM EDT us Ming Love MD LAB URINE ORDERABLES Final Res ult Performing Organization Address City/[facility]/ZIP Co de Phone Number [facility] [address] [place] [address], [place] [phone] * Culture urine (11/23/2024 11:28 PM EDT) Culture, Urine <10,000 CFU/mL gram positive cocci, insignificant count, no further workup 11/25/2024 10:10 AM EDT [facility] Urine Urine specimen obtained by clean catch procedure / Unknown Non-blood Collection / Unknown 11/23/2024 11:28 PM EDT 11/24/2024 12:11 AM EDT us Ming Love MD LAB MICROBIOLOGY - GENERAL ORD ERABLES Final Result Performing Organization Address [facility] Co de Phone Number [facility] [address] [place] [address], [place] [phone] from Last 3 Months Insurance MEDICARE MEDICAID - [place] Care Teams Licensed Embalmer Relationship Specialty Start Date End Date Dk Rodriguez MD [address] [place] [address] [place] [address] PCP - General Internal Medicine 07/16/24
--- OUTSIDE RECORDS SUMMARY | 2025-01-02 12:38 | XMS_ITS | Encounter Summary ---
Author Organization [facility] Address [address] [place] [address] Care Team Providers Care Aviation Boatswain'S Mate Name Role Phone Patient, Has No Pcp Or Ref Primary Care Provider Unavailable Encounter Details Date Type Department Care Team (Late st Contact Info) Description 01/04/2024 Community Orders [facility] EpicCare Link [address] [place] [address] Bethany Lozano, INSURANCE CLAIMS PROCESSOR [address] [place] [address] Social History Tobacco Use Types Packs/Day Years [...] on filedocumented in this encounter Care Teams Aviation Boatswain'S Mate Relationship Specialty Start Date End Date Patient, Has No Pcp Or Ref DO NOT EDIT THIS RECORD VIA PROVIDER ON THE FLY PCP - General Transformer Mechanic 12/30/23 documented as of this encounter
--- NOTE | 2025-01-02 13:08 | MHC.EDTECH ---
pt emptied 720 mL of light yellow urine into urinal. urine collected and sent to lab.
[2025-01-02 13:18] LABS: MANUAL DIFF FLAG NO
[2025-01-02 13:20] LABS: Hematocrit 36.7 % (42.0-52.0); Hemoglobin 13.1 g/dl (14.0-18.0); Imm Gran Abs Auto 0.02 X10*3/uL (0.00-0.03); Imm Gran Pct Auto 0.2 % (0.0-0.4); Lymphocytes Absolute Auto 1.9 X10*3/uL (1.2-4.9); Mean Corpuscular HGB Conc 35.7 g/dl (31.0-36.0); Mean Corpuscular Hemoglobin 32.3 pg (27.0-33.0); Mean Corpuscular Volume 90.4 fL (80.0-98.0); NRBC Abs Auto 0.000 X10*3/uL (0.0-0.012); NRBC Pct Auto 0.0 /100WBC (0.0-0.2); Platelet Count 174 X10*3/uL (160-400); Red Blood Count 4.06 X10*6/uL (4.60-5.80); White Blood Count 8.5 X10*3/uL (4.8-10.8)
[2025-01-02 13:22] LABS: Appearance Urine Clear; Glucose Urine UA Negative (Negative); PH 6.5 (5.0-9.0); Specific Gravity - Urine <= 1.005 (1.005-1.025); UMIC TRIGGER UACC YES
[2025-01-02 13:33] LABS: Alanine Aminotransferase 17 U/L (0-40); Albumin Level 4.1 g/dL (3.5-5.0); Alkaline Phosphatase 62 U/L (39-117); Anion Gap 11 (12-20); Aspartate Amino Transferase 25 U/L (5-37); Blood Urea Nitrogen 11 mg/dL (9-16); Calcium 8.8 mg/dL (8.4-10.2); Carbon Dioxide 24 mmol/L (22-29); Chloride 111 mmol/L (96-108); Creatinine Clr Calc Pharmacy 100.7; Estimated Glomerular Filt Rate > 60; Magnesium 1.9 mg/dL (1.6-2.6); Potassium 3.3 mmol/L (3.3-5.1); Sodium 143 mmol/L (135-145); Total Protein 6.7 g/dL (6.5-8.0)
[2025-01-02 13:45] VITALS: BP 136/75; PULSE 75; RESP 14; TEMP 36.4; O2SAT 99
--- NOTE | 2025-01-02 13:46 | MHC.EDTECH ---
Pt emptied 800mL of urine into urinal
--- NOTE | 2025-01-02 13:53 | ED.GENADULT ---
HPI - General Adult General Chief complaint: General Medical Stated complaint: HEART PALPITATIONS Time Seen by Provider: 01/02/25 13:53 History of Present Illness ED Provider: Ajay MCKAY narrative: The patient is a 59-year-old male who reports a long history with the problems of passage of urine and urinary retention. He has a history of schizoaffective disorder and has been on psychiatric medications for a long time. He seems to have been thought to have chronic bladder emptying problems secondary to anticholinergic effects of his long-term antipsychotic use. It seems that the patient has is often given a catheter because of difficulty urinating but it is not entirely clear whether he always needs a catheter and sometimes he goes without a catheter. The patient says that he came to the emergency room today after feeling unwell at a day program. He says that for several hours he felt that his heart was racing. He says that this was a ?fatal episode.? He says that he put up with the symptoms for several hours until finally he told staff what he was feeling in an ambulance was called and he was brought to the emergency room. The patient says that he had a similar episode about a week ago. No fever, sweats, chills. Related Data Previous Rx's ?Medication ?Instructions ?Recorded polyethylene glycol 3350 17 17 g PO DAILY constipation 30 days 09/11/23 gram/dose oral powder (Miralax) #510 grams tamsulosin 0.4 mg capsule 0.4 mg PO QAM 90 days #90 caps 11/01/24 atorvastatin 20 mg tablet 20 mg PO QPM 30 days #30 tabs 11/14/24 cefuroxime axetil 500 mg tablet 500 mg PO BID #13 tabs 12/05/24 Allergies Allergy/AdvReac Type Severity Reaction Status Date / Time No Known Allergies (NO KNOWN Allergy Unknown UNKNOWN Verified 01/02/25 11:56 ALLERGIES) Review of Systems Review of Systems: Yes all other systems are reviewed and are negative PMF Past Medical History Medical History (Updated 01/02/25 @ 16:25 by Maxwell Moss MD) Smoker GERD without esophagitis Tubular adenoma of colon (~2018) Personal history of nicotine dependence Constipation Back pain Schizoaffective disorder, bipolar type Anxiety Benign prostatic hyperplasia with lower urinary tract symptoms Pure hypercholesterolemia Thought disorder Bipolar 1 disorder Mood disorder Surgical History History of colonoscopy (~04/2019) History of prostate surgery (~04/2019) History of open reduction and internal fixation (ORIF) procedure (~08/2018) Family History Family History Father Lung cancer BPH (benign prostatic hyperplasia) Mother Dementia Brother Myocardial infarction Other Mental health problem Substance abuse Social History Social History Household Members: None Housing: Assisted Living Facility Housing Other:: longterm Do you presently have visiting nurse or other home services: No Alcohol intake: never Patient Tobacco Use Status: Current everyday Tobacco user Tobacco use type: Cigarette Cigarette Packs Per Day: 1 Cigarettes Per Day: 20.0 Years Smoked: 10 e-Cigarette/Vaping Use: Never Used Second Hand Smoke Exposure: Yes service: No Current occupational status: employed Current occupation: [employer] in [place] Sexual orientation: Decline to Answer Cognitive needs: No Hearing needs: No Vision needs: Yes Physical Exam ED Vital Signs: Vital Signs - 24 hr 01/02/25 11:52 01/02/25 13:45 Temperature 97.7 F 97.6 F Pulse Rate 64 75 Respiratory Rate 18 14 Blood Pressure 130/80 136/75 Pulse Oximetry 99 99 Oxygen Delivery Method Room Air Room Air BMI result Body Mass Index 21.6 Const Other: The patient is a somewhat chronically ill-appearing 59-year-old. He is awake and alert. He has a very intense and somewhat confrontational affect. He does not seem in any distress. HENCO Other: The face is symmetrical. ?Mucous membranes moist. Eyes Other: Pupils are round equal, conjunctivae are clear, extraocular movements intact General: appearance normal, both eyes and all related structures Neck Neck: Yes normal visual inspection and Yes full ROM Resp Effort & Inspection: normal respiratory effort Auscultation: clear to auscultation bilaterally Cardio Rate: regular rate Rhythm: regular rhythm Heart sounds: S1 normal heart sound present and S2 normal heart sound present GI Other: Abdomen is soft and nontender Skin Other: Skin is dry and unremarkable Neuro Other: The patient is awake and alert. He has a very intense affect and an unusual demeanor but no obvious altered mental status. I suspect his demeanor is his typical demeanor. Cranial nerves are grossly intact. He moves his extremities normally and appropriately. Extrem Other: No peripheral edema Medical Decision Making Medical Decision Making MDM Narrative: The patient is a 59-year-old male with a history of schizoaffective disorder who also seems to have bladder problems related to anticholinergic effects of chronic antipsychotic medications. The patient is often given a urinary catheter but he has not had a catheter in place for some time. He was last seen for bladder issues 5 days ago on December 28 at [facility]. He was also seen at [facility] on 12/30, and yesterday on 01/01. He left the emergency room waiting room yesterday without being seen. It is not clear what happened on the . The patient has a large bladder volume today which is apparently typical for him. However he was able to empty his bladder. Remarkably he seemed to reaccumulate urine very quickly. He seemed to put out a proximally 3 L of urine over the space of a few hours. His electrolytes for unremarkable (chloride slightly high). Because of his degree of urine output we did a 2nd basic metabolic panel which showed no significant change. Additionally given the patient's complaint of palpitations and chest discomfort he had an EKG that was normal and 2- troponins. Ultimately the patient requested a urinary catheter and he wanted to go home with the urinary catheter and a leg bag. He was therefore discharged to follow up with his regular doctor and his urologist. His urinalysis showed a dilute urine but no sign of infection. Lab Data 01/02/25 13:11 01/02/25 15:20 Labs: Lab Results 01/02/25 01/02/25 Range/Units 13:11 15:20 WBC 8.5 (4.8-10.8) X10*3/uL RBC 4.06 L (4.60-5.80) X10*6/uL Hgb 13.1 L (14.0-18.0) g/dl Hct 36.7 L (42.0-52.0) % MCV 90.4 (80.0-98.0) fL MCH 32.3 (27.0-33.0) pg MCHC 35.7 (31.0-36.0) g/dl RDW 13.5 (11.0-16.0) % Plt Count 174 (160-400) X10*3/uL MPV 9.4 (9.4-12.4) fL Immature Gran % (Auto) 0.2 (0.0-0.4) % Neut % (Auto) 69.7 (45-73) % Lymph % (Auto) 21.7 (20-40) % Cochran % (Auto) 6.5 (2-11) % Eos % (Auto) 1.1 (0-4) % Baso % (Auto) 0.8 (0-2) % Lymph # (Auto) 1.9 (1.2-4.9) X10*3/uL Cochran # (Auto) 0.6 (0.1-1.2) X10*3/uL Eos # (Auto) 0.1 (0.0-0.4) X10*3/uL Baso # (Auto) 0.1 (0.0-0.2) X10*3/uL Abs Immat Gran (auto) 0.02 (0.00-0.03) X10*3/uL Absolute Neuts (auto) 5.9 (2.0-8.3) x10*3/uL Absolute Nucleated RBC 0.000 (0.0-0.012) X10*3/uL Nucleated RBC % (auto) 0.0 (0.0-0.2) /100WBC Sodium 143 144 (135-145) mmol/L Potassium 3.3 3.6 (3.3-5.1) mmol/L Chloride 111 H 112 H (96-108) mmol/L Carbon Dioxide 24 23 (22-29) mmol/L Anion Gap 11 L 13 (12-20) BUN 11 10 (9-16) mg/dL Creatinine 0.74 0.67 (0.5-1.4) mg/dL Estim Creat Clear Calc 100.7 111.3 Estimated GFR > 60 > 60 Random Glucose 97 93 (60-115) mg/dL Calcium 8.8 8.9 (8.4-10.2) mg/dL Magnesium 1.9 (1.6-2.6) mg/dL Total Bilirubin 0.5 (0.0-1.0) mg/dL AST 25 (5-37) U/L ALT 17 (0-40) U/L Alkaline Phosphatase 62 (39-117) U/L Troponin I High Sens < 2.7 < 2.7 (<3.5-35.0) ng/L Total Protein 6.7 (6.5-8.0) g/dL Albumin 4.1 (3.5-5.0) g/dL Urine Color Yellow Urine Appearance Clear Urine pH 6.5 (5.0-9.0) Ur Specific Wiggins <= 1.005 (1.005-1.025) Urine Protein Negative (Neg-Trace) mg/dL Urine Glucose (UA) Negative (Negative) mg/dL Urine Ketones Negative (Negative) mg/dL Urine Blood Negative (Negative) Urine Nitrite Negative (Negative) Ur Leukocyte Esterase Trace H (Negative) Urine RBC 0-2 (0-2) /HPF Urine WBC 0-5 (0-5) /HPF Ur Squamous Epith Cells 0-2 (0-2) /HPF Urine Bacteria None Seen (None Seen) Hyaline Casts 0-2 (0-2) /LPF Influenza Type A (PCR) NEGATIVE (Negative) Influenza Type B (PCR) NEGATIVE (Negative) RSV RNA Qual (PCR) NEGATIVE (Negative) SARS-CoV-2 RNA (RT-PCR) NEGATIVE (Negative) Discharge Plan Discharge Clinical Impression: Urinary retention Patient Disposition: Home, Self-Care Additional Instructions: Please make a follow up appointment with your regular doctor and also with the urology office to discuss ongoing catheter management. Please continue your regular medications otherwise. Return to the emergency room if worse. Prescriptions: No Action polyethylene glycol 3350 [Miralax] 17 gram/dose powder 17 g PO DAILY 30 Days Qty: 510 4RF tamsulosin 0.4 mg capsule 0.4 mg PO QAM 90 Days Qty: 90 0RF atorvastatin 20 mg tablet 20 mg PO QPM 30 Days Qty: 30 1RF cefuroxime axetil 500 mg tablet 500 mg PO BID Qty: 13 0RF Referrals: [facility] [Provider Group, Urology] Dk Rodriguez MD [Primary Care Provider, Internal Medicine] Print Language: Sinhala
--- NOTE | 2025-01-02 14:13 | ECG_ITS ---
Test Reason : palpitations Blood Pressure : */* mmHG Vent. Rate : 60 BPM Atrial Rate : 60 BPM P-R Int : 132 ms QRS Dur : 92 ms QT Int : 420 ms P-R-T Axes : 63 5 28 degrees QTcB Int : 420 ms Normal sinus rhythm Normal ECG When compared with ECG of 09-Apr-2021 14:13, No significant change was found Referred By: Maxwell Moss Electronically Signed By: RACHEAL VILLAFANA MD
[2025-01-02 14:29] LABS: Resp Syncy Virus RNA Qual PCR NEGATIVE (Negative); SARS COV2 PCR INHOUSE NEGATIVE (Negative)
[2025-01-02 14:37] LABS: Troponin-I High Sensitivity < 2.7 ng/L (<3.5-35.0)
[2025-01-02 15:47] LABS: Anion Gap 13 (12-20); Blood Urea Nitrogen 10 mg/dL (9-16); Calcium 8.9 mg/dL (8.4-10.2); Carbon Dioxide 23 mmol/L (22-29); Chloride 112 mmol/L (96-108); Creatinine Clr Calc Pharmacy 111.3; Estimated Glomerular Filt Rate > 60; Potassium 3.6 mmol/L (3.3-5.1); Sodium 144 mmol/L (135-145)
[2025-01-02 15:56] LABS: Troponin-I High Sensitivity < 2.7 ng/L (<3.5-35.0)
[2025-01-02 16:26] VITALS: BP 126/76; PULSE 71; RESP 14; TEMP 36.5; O2SAT 100
--- NOTE | 2025-01-02 16:27 | MHC.EDTECH ---
800mL of urine removed from schafer cath bag
[2025-01-02 16:36] VITALS: BP 126/76; PULSE 71; RESP 14; TEMP 36.5; O2SAT 100
== END 2025-01-02 16:37 | disposition home or self-care (01) ==
PROVIDERS: Physician Assistant Medical; Emergency Provider Emergency Medicine; PCP Internal Medicine
DX: R33.9 Retention of urine, unspecified (principal); R00.2 Palpitations; F25.9 Schizoaffective disorder, unspecified; Z03.818 Encounter for observation for suspected exposure to other biological agents ruled out; F17.210 Nicotine dependence, cigarettes, uncomplicated; Z79.899 Other long term (current) drug therapy
CPT/HCPCS: 36415; 51701; 80048; 80053; 81001; 83735; 84484; 85025; 87637; 93005; 99283; 99285

== ENCOUNTER → 2025-01-02 14:13 | Outpatient (BNV) | payer MEDICARE, MEDICAID, SELFPAY | PROVIDERS: Emergency Provider Emergency Medicine; PCP Internal Medicine; Visit Provider Internal Medicine Cardiovascular Disease | DX: R00.2 Palpitations (principal) | CPT/HCPCS: 93010 ==

== ENCOUNTER 2025-01-05 20:19 | Emergency (ER) | payer MEDICARE, MEDICAID, SELFPAY ==
[2025-01-05 20:26] VITALS: BP 124/75; PULSE 98; RESP 18; TEMP 36.7; O2SAT 97; BMI 22.1
--- NOTE | 2025-01-05 20:26 | ED.GENADULT ---
HPI - General Adult General Chief complaint: General Medical Stated complaint: toe laceration Time Seen by Provider: 01/05/25 22:06 Source: patient and old records reviewed Mode of arrival: ambulatory Limitations: no limitations History of Present Illness ED Provider: DR. Madison HPI narrative: 59-year-old male who reports long history with urinary retention require Santos catheters and home self catheterization patient came in requesting to discontinue the current Santos catheter which was placed 4 months ago, patient claimed that he can not function with the Santos bag causing scratch to his both legs, and ladder contractions, patient also reported that he is trained to self catheterized if any problem, no fever, chills. No abdominal pain, no nausea, vomiting. Patient is known to have schizoaffective and mental illness with frequent ED visits currently no SI, no HI, no hallucination. Currently patient has no SI, no HI he reported that they still live in the half-way and he multiple back home after discontinue the Santos catheter. Related Data Previous Rx's ?Medication ?Instructions ?Recorded polyethylene glycol 3350 17 17 g PO DAILY constipation 30 days 09/11/23 gram/dose oral powder (Miralax) #510 grams tamsulosin 0.4 mg capsule 0.4 mg PO QAM 90 days #90 caps 11/01/24 atorvastatin 20 mg tablet 20 mg PO QPM 30 days #30 tabs 11/14/24 cefuroxime axetil 500 mg tablet 500 mg PO BID #13 tabs 12/05/24 Allergies Allergy/AdvReac Type Severity Reaction Status Date / Time No Known Allergies (NO KNOWN Allergy Unknown UNKNOWN Verified 01/05/25 20:29 ALLERGIES) Review of Systems Review of Systems: All other systems are reviewed and are negative Constitutional: Reports as per HPI and Reports no additional constitutional complaints Eyes: Reports as per HPI and Reports no additional eye complaints Reports system reviewed and no additional complaints, except as documented Cardiovascular: Reports as per HPI and Reports no additional cardiovascular complaints Respiratory: Reports as per HPI and Reports no additional respiratory complaints Gastrointestinal: Reports as per HPI and Reports no additional gastrointestinal complaints Genitourinary: Reports no additional female genitourinary complaints Musculoskeletal: Reports no additional musculoskeletal complaints Skin/Breast: Reports system reviewed and no additional complaints, except as docu Psychiatric: Reports no additional psychiatric complaints Endocrine: Reports no additional endocrine complaints Hematologic/Lymphatic: Reports no additional hematologic/lymphatic complaints Allergic/Immunologic: Reports no additional allergic/immunologic complaints Reports system reviewed and no additional complaints, except as documented and Reports Abnormal speech present [facility] Past Medical History Medical History Smoker GERD without esophagitis Tubular adenoma of colon (~2018) Personal history of nicotine dependence Constipation Back pain Schizoaffective disorder, bipolar type Anxiety Benign prostatic hyperplasia with lower urinary tract symptoms Pure hypercholesterolemia Thought disorder Bipolar 1 disorder Mood disorder Surgical History History of colonoscopy (~04/2019) History of prostate surgery (~04/2019) History of open reduction and internal fixation (ORIF) procedure (~08/2018) Family History Family History Father Lung cancer BPH (benign prostatic hyperplasia) Mother Dementia Brother Myocardial infarction Other Mental health problem Substance abuse Social History Social History Household Members: None Housing: Assisted Living Facility Housing Other:: half-way Do you presently have visiting nurse or other home services: No Alcohol intake: never Patient Tobacco Use Status: Current everyday Tobacco user Tobacco use type: Cigarette Cigarette Packs Per Day: 1 Cigarettes Per Day: 20.0 Years Smoked: 10 e-Cigarette/Vaping Use: Never Used Second Hand Smoke Exposure: Yes Advance Directives: No Advance Directives Information Provided: No service: No Current occupational status: employed Current occupation: [employer] Sexual orientation: Decline to Answer Cognitive needs: No Hearing needs: No Vision needs: Yes Physical Exam ED Vital Signs: Vital Signs - 24 hr 01/05/25 20:26 Temperature 98.0 F Pulse Rate 98 Respiratory Rate 18 Blood Pressure 124/75 Pulse Oximetry 97 Oxygen Delivery Method Room Air BMI result Body Mass Index 22.1 Vital signs have been reviewed and appear to be correct. Blood pressure elevated. Heart rate normal. Respiratory rate normal. Temperature normal. Oxygen saturation normal. Appearance: Alert. Oriented X3. No acute distress. Head: Normal external exam. Normocephalic. Atraumatic. No Villeda signs noted. No raccoon eyes noted Eyes: PERRLA. EOMI. Conjunctiva and sclera normal. Eyelids normal. ENT: TM's Normal. Pharynx normal. Uvula midline. Moist mucous membranes. No trismus noted. No drooling noted. No muffled voice noted. Neck: Normal inspection. Neck supple. FROM. No adenopathy. Thyroid Normal. No meningeal signs. No neck mass noted. CVS: Normal heart rate and rhythm. Heart sound normal. No murmurs noted. Pulses normal throughout. Respiratory: No respiratory distress. Painless inspiration. Breath sounds normal. No wheezes/rales/rhonchi noted. Chest nontender. No accessory muscle usage noted or decreased air movement noted. Abdomen: Soft and nontender. Bowel sounds normal in all 4 quadrants. No distention noted. No organomegaly noted. No visible injury noted. exam: Santos catheter in place. Back: No CVA tenderness. Full range of motion noted. Skin: Skin warm and dry. Normal skin color. Normal skin turgor. No rashes/lesions/lacerations noted. Extremities: Multiple bilateral leg superficial scratches from leg bag catheter. Neuro: Oriented X 3. Cranial nerve exam: II-XII are grossly intact No motor deficit. No sensory deficit. Reflexes normal. Course Course Course Narrative: This is an RME performed by Coy Moya CNP: Additional HPI, ROS, PE not included below will be deferred to primary provider. Patient is a 59-year-old male presents emergency department for evaluation of various complaints. Reports he has sustained superficial abrasions to his legs from the catheter drainage bag, reports he was seen at a hospital for this. Additionally states he is having bladder pain/cramping, he had [address] to the emergency department. Complaining of palpitations. Plan: Serum labs, ECG, urinalysis Reevaluation(s) Reevaluation #1: Santos catheter was discontinued in the emergency department, patient is requesting to be discharged before trial to void insisting that he will do okay at home and if any problem patient is trained to self catheterized himself. Abdominal exam shows no tenderness. Time: 22:21 Medical Decision Making Differential Diagnosis Differential Diagnoses: The differential diagnosis associated with the presentation includes (Santos catheter problem, electrolyte derangement, severe anemia.) Admission/Observation Consideration of admission/observation: Escalation of care including admission/observation considered Lab Data MDM Lab Attestation statement: I reviewed the patient's lab results. 01/05/25 20:51 01/05/25 20:51 Labs: Lab Results 01/05/25 Range/Units 20:51 WBC 5.4 (4.8-10.8) X10*3/uL RBC 3.84 L (4.60-5.80) X10*6/uL Hgb 12.2 L (14.0-18.0) g/dl Hct 34.9 L (42.0-52.0) % MCV 90.9 (80.0-98.0) fL MCH 31.8 (27.0-33.0) pg MCHC 35.0 (31.0-36.0) g/dl RDW 13.8 (11.0-16.0) % Plt Count 179 (160-400) X10*3/uL MPV 9.3 L (9.4-12.4) fL Immature Gran % (Auto) 0.2 (0.0-0.4) % Neut % (Auto) 43.6 L (45-73) % Lymph % (Auto) 36.5 (20-40) % Baldwin % (Auto) 10.6 (2-11) % Eos % (Auto) 7.8 H (0-4) % Baso % (Auto) 1.3 (0-2) % Lymph # (Auto) 2.0 (1.2-4.9) X10*3/uL Baldwin # (Auto) 0.6 (0.1-1.2) X10*3/uL Eos # (Auto) 0.4 (0.0-0.4) X10*3/uL Baso # (Auto) 0.1 (0.0-0.2) X10*3/uL Abs Immat Gran (auto) 0.01 (0.00-0.03) X10*3/uL Absolute Neuts (auto) 2.4 (2.0-8.3) x10*3/uL Absolute Nucleated RBC 0.000 (0.0-0.012) X10*3/uL Nucleated RBC % (auto) 0.0 (0.0-0.2) /100WBC Sodium 140 (135-145) mmol/L Potassium 3.5 (3.3-5.1) mmol/L Chloride 108 (96-108) mmol/L Carbon Dioxide 23 (22-29) mmol/L Anion Gap 13 (12-20) BUN 7 L (9-16) mg/dL Creatinine 0.80 (0.5-1.4) mg/dL Estim Creat Clear Calc 95.6 Estimated GFR > 60 Random Glucose 133 H (60-115) mg/dL Calcium 8.7 (8.4-10.2) mg/dL Total Bilirubin 0.3 (0.0-1.0) mg/dL AST 20 (5-37) U/L ALT 17 (0-40) U/L Alkaline Phosphatase 58 (39-117) U/L Total Protein 6.6 (6.5-8.0) g/dL Albumin 3.8 (3.5-5.0) g/dL Discharge Plan Discharge Clinical Impression: Problem with Santos catheter Patient Disposition: Home, Self-Care Instructions: Catheter-associated Urinary Tract Infection (ED) Additional Instructions: Return to the emergency department if unable to urinate. Prescriptions: No Action polyethylene glycol 3350 [Miralax] 17 gram/dose powder 17 g PO DAILY 30 Days Qty: 510 4RF tamsulosin 0.4 mg capsule 0.4 mg PO QAM 90 Days Qty: 90 0RF atorvastatin 20 mg tablet 20 mg PO QPM 30 Days Qty: 30 1RF cefuroxime axetil 500 mg tablet 500 mg PO BID Qty: 13 0RF Print Language: Estonian
--- NOTE | 2025-01-05 20:28 | ECG_ITS ---
Test Reason : palpitations Blood Pressure : */* mmHG Vent. Rate : 73 BPM Atrial Rate : 73 BPM P-R Int : 136 ms QRS Dur : 90 ms QT Int : 366 ms P-R-T Axes : 68 5 29 degrees QTcB Int : 403 ms Normal sinus rhythm Normal ECG When compared with ECG of 02-Jan-2025 14:27, No significant change was found Referred By: Lucie Moya Electronically Signed By: WIL SPRINGER
[2025-01-05 20:56] LABS: MANUAL DIFF FLAG NO
[2025-01-05 20:57] LABS: Hematocrit 34.9 % (42.0-52.0); Hemoglobin 12.2 g/dl (14.0-18.0); Imm Gran Abs Auto 0.01 X10*3/uL (0.00-0.03); Imm Gran Pct Auto 0.2 % (0.0-0.4); Lymphocytes Absolute Auto 2.0 X10*3/uL (1.2-4.9); Mean Corpuscular HGB Conc 35.0 g/dl (31.0-36.0); Mean Corpuscular Hemoglobin 31.8 pg (27.0-33.0); Mean Corpuscular Volume 90.9 fL (80.0-98.0); NRBC Abs Auto 0.000 X10*3/uL (0.0-0.012); NRBC Pct Auto 0.0 /100WBC (0.0-0.2); Platelet Count 179 X10*3/uL (160-400); Red Blood Count 3.84 X10*6/uL (4.60-5.80); White Blood Count 5.4 X10*3/uL (4.8-10.8)
[2025-01-05 21:11] LABS: Alanine Aminotransferase 17 U/L (0-40); Albumin Level 3.8 g/dL (3.5-5.0); Alkaline Phosphatase 58 U/L (39-117); Anion Gap 13 (12-20); Aspartate Amino Transferase 20 U/L (5-37); Blood Urea Nitrogen 7 mg/dL (9-16); Calcium 8.7 mg/dL (8.4-10.2); Carbon Dioxide 23 mmol/L (22-29); Chloride 108 mmol/L (96-108); Creatinine Clr Calc Pharmacy 95.6; Estimated Glomerular Filt Rate > 60; Potassium 3.5 mmol/L (3.3-5.1); Sodium 140 mmol/L (135-145); Total Protein 6.6 g/dL (6.5-8.0)
--- OUTSIDE RECORDS SUMMARY | 2025-01-05 21:49 | XMS_ITS | Clinical Summary ---
Author Organization [facility] Address [address] [place] [address] Phone Care Team Providers Care Staff Occupational Therapist Name Role Phone Dk Rodriguez MD Primary Care Provider [phone] Allergies No known active allergies Medications No known medications Encounters Date Type Department Care Team Description 12/04/2024 11:34 PM EDT - 12/05/2024 1:[address] [facility] [address] [place] [phone] Discharge Disposition: Home or Self Care 12/02/2024 10:00 PM EDT - 12/03/2024 12:[address] [facility] [address] [place] [phone] Discharge Disposition: Home or Self Care 11/27/2024 10:17 PM EDT - 11/28/2024 8:[address] [facility] [address] [place] [phone] Discharge Disposition: Home or Self Care 11/26/2024 9:40 PM EDT - 11/27/2024 2:[address] [facility] [address] [place] [phone] Discharge Disposition: Home or Self Care 11/24/2024 11:19 PM EDT - 11/25/2024 1:[address] [facility] [address] [place] [phone] Discharge Disposition: Home or Self Care 11/23/2024 11:27 PM EDT - 11/24/2024 1:10 AM EDT Emergency [facility] Emergency [address] [place] [phone] Urinary retention (Primary Dx) Discharge Disposition: Home or Self Care 11/22/2024 10:08 PM EDT - 11/23/2024 2:[address] [facility] [address] [place] [address] Discharge Disposition: Home or Self Care 11/18/2024 3:47 AM EDT - 11/18/2024 5:34 AM EDT Emergency [facility] Emergency [address] [place] [phone] Discharge Disposition: Home or Self Care 11/09/2024 12:37 AM EDT - 11/09/2024 4:[address] [facility] [address] [place] [address] Discharge Disposition: Home or Self Care from Last 3 Months Medical History Medical History Date Comments Bipolar 1 disorder ([facility] V24, [facility] V28) Mood disorder ([facility] V24) Hyperactivity of bladder Social History Tobacco [...] K/mcL LAB HEMETOLOGY METHOD 12/05/2024 12:52 AM [facility] RBC 4.00(L) 4.50 - 5.50 M/mcL LAB HEMETOLOGY METHOD 12/05/2024 12:52 AM T [facility] Hemoglobin 12.7(L) 13.5 - 17.5 g/dL LAB HEMETOLOGY METHOD 12/05/2024 12:52 AM [facility] Hematocrit 37.3(L) 42.0 - 54.0 % LAB HEMETOLOGY METHOD 12/05/2024 12:52 AM [facility] MCV 93.7 79.0 - 98.0 FL LAB HEMETOLOGY METHOD 12/05/2024 12:52 AM [facility] MCH 31.9 27.0 - 32.0 pcg LAB HEMETOLOGY METHOD 12/05/2024 12:52 AM [facility] MCHC 34.0 32.0 - 37.0 g/dL LAB HEMETOLOGY METHOD 12/05/2024 12:52 AM [facility] RDW 13.2 11.0 - 15.0 % LAB HEMETOLOGY METHOD 12/05/2024 12:52 AM [facility] Platelets 207 130 - 400 K/mcL LAB HEMETOLOGY METHOD 12/05/2024 12:52 AM [facility] MPV 9.4 7.0 - 11.0 FL LAB HEMETOLOGY METHOD 12/05/2024 12:52 AM [facility] NRBC 0.0 <1.0 % LAB HEMETOLOGY METHOD 12/05/2024 12:52 AM [facility] NRBC Absolute 0.00 <0.10 K/mcL LAB HEMETOLOGY METHOD 12/05/2024 12:52 AM [facility] Neutrophils Relative 56.8 % LAB HEMETOLOGY METHOD 12/05/2024 12:52 AM [facility] Lymphocytes Relative 27.7 % LAB HEMETOLOGY METHOD 12/05/2024 12:52 AM [facility] Monocytes Relative 11.1 % LAB HEMETOLOGY METHOD 12/05/2024 12:52 AM [facility] Eosinophils Relative 3.3 % LAB HEMETOLOGY METHOD 12/05/2024 12:52 AM [facility] Basophils Relative 0.8 % LAB HEMETOLOGY METHOD 12/05/2024 12:52 AM [facility] Immature Granulocytes Relative 0.3 % LAB HEMETOLOGY METHOD 12/05/2024 12:52 AM [facility] Neutrophils Absolute 4.19 1.50 - 7.00 K/mcL LAB HEMETOLOGY METHOD 12/05/2024 12:52 AM EDT [facility] Lymphocytes Absolute 2.04 1.00 - 5.00 K/[facility] LAB HEMETOLOGY METHOD 12/05/2024 12:52 AM EDT [facility] Monocytes Absolute 0.82 0.20 - 1.00 K/mcL LAB HEMETOLOGY METHOD 12/05/2024 12:52 AM EDT [facility] Eosinophils Absolute 0.24 0.00 - 0.50 K/[facility] LAB HEMETOLOGY METHOD 12/05/2024 12:52 AM EDT [facility] Basophils Absolute 0.06 0.00 - 0.20 K/[facility] LAB HEMETOLOGY METHOD 12/05/2024 12:52 AM [facility] Immature Granulocytes Absolute 0.02 0.00 - 0.03 K/[facility] LAB HEMETOLOGY METHOD 12/05/2024 12:52 AM T [facility] Blood Venous blood specimen / Unknown Venipuncture / Unknown 12/05/2024 12:00 AM EDT 12/05/2024 12:45 AM EDT us Dalila Alberto MD LAB BLOOD ORDERABLES Fin al Result [facility] [address] [place] [address], * (ABNORMAL) Comprehensive metabolic panel (12/05/2024 12:00 AM EDT) Sodium 139 133 - 145 mmol/L LAB CHEMISTRY METHOD 12/05/2024 1:25 AM [facility] Potassium 3.6 3.5 - 5.5 mmol/L LAB CHEMISTRY METHOD 12/05/2024 1:25 AM [facility] Chloride 108 96 - 110 mmol/L LAB CHEMISTRY METHOD 12/05/2024 1:25 AM [facility] CO2 26 21 - 32 mmol/L LAB CHEMISTRY METHOD 12/05/2024 1:25 AM [facility] Anion Gap 5 3 - 11 LAB CHEMISTRY METHOD 12/05/2024 1:25 AM [facility] Glucose 80 70 - 100 mg/dL LAB CHEMISTRY METHOD 12/05/2024 1:25 AM [facility] BUN 8 5 - 25 mg/dL LAB CHEMISTRY METHOD 12/05/2024 1:25 AM [facility] Creatinine 0.69(L) 0.70 - 1.30 mg/dL LAB CHEMISTRY METHOD 12/05/2024 1:25 AM [facility] eGFR 107 >=60 mL/min/1. 73m2 LAB CHEMISTRY METHOD 12/05/2024 1:25 AM [facility] Comment:Calculation based on the Chronic Kidney Disease Epidemiology Collaboration (CKD-EPI) equation refit without adjustment for race. BUN/Creatinine Ratio 11.6 LAB CHEMISTRY METHOD 12/05/2024 1:25 AM [facility] Calcium 8.6 8.5 - 10.5 mg/dL LAB CHEMISTRY METHOD 12/05/2024 1:25 AM [facility] AST (SGOT) 13 10 - 42 unit/L LAB CHEMISTRY METHOD 12/05/2024 1:25 AM [facility] ALT (SGPT) 16 10 - 60 unit/L LAB CHEMISTRY METHOD 12/05/2024 1:25 AM [facility] Alkaline Phosphatase 67 42 - 121 unit/L LAB CHEMISTRY METHOD 12/05/2024 1:25 AM [facility] Total Protein 6.3 6.0 - 8.0 g/dL LAB CHEMISTRY METHOD 12/05/2024 1:25 AM [facility] Albumin 3.3 3.2 - 5.0 g/dL LAB CHEMISTRY METHOD 12/05/2024 1:25 AM [facility] Total Bilirubin 0.4 0.0 - 1.4 mg/dL LAB CHEMISTRY METHOD 12/05/2024 1:25 AM [facility] Blood Venous blood specimen / Unknown Venipuncture / Unknown 12/05/2024 12:00 AM EDT 12/05/2024 12:45 AM EDT Dalila Alberto MD LAB BLOOD ORDERABLES Fin al Result [facility] [address] [place] [id number], * (ABNORMAL) Urinalysis with reflex microscopic and culture (11/23/2024 11:28 PM EDT) Specific [place] Urine 1.007 1.003 - 1.030 LAB URINALYSIS - AUTOMATED METHOD 11/24/2024 12:11 AM [facility] pH, Urine 6.5 5.0 - 8.0 pH LAB URINALYSIS - AUTOMATED METHOD 11/24/2024 12:11 AM [facility] Leukocytes, Urine Moderate(A) Negative LAB URINALYSIS - AUTOMATED METHOD 11/24/2024 12:11 AM [facility] Nitrite, Urine Negative Negative LAB URINALYSIS - AUTOMATED METHOD 11/24/2024 12:11 AM [facility] Protein, Urine Negative <=Trace mg/dL LAB URINALYSIS - AUTOMATED METHOD 11/24/2024 12:11 AM [facility] Glucose, Urine Negative Negative mg/dL LAB URINALYSIS - AUTOMATED METHOD 11/24/2024 12:11 AM [facility] Ketones, Urine Negative Negative mg/dL LAB URINALYSIS - AUTOMATED METHOD 11/24/2024 12:11 AM [facility] Urobilinogen , Urine 0.2 0.2 - 1.0 mg/dL LAB URINALYSIS - AUTOMATED METHOD 11/24/2024 12:11 AM [facility] Bilirubin, Urine Negative Negative LAB URINALYSIS - AUTOMATED METHOD 11/24/2024 12:11 AM [facility] Blood, Urine Negative Negative LAB URINALYSIS - AUTOMATED METHOD 11/24/2024 12:11 AM [facility] RBC, Urine 1.3 0 - 4 /HPF LAB URINALYSIS - AUTOMATED METHOD 11/24/2024 12:11 AM [facility] WBC, Urine 8.1(H) 0 - 4 /HPF LAB URINALYSIS - AUTOMATED METHOD 11/24/2024 12:11 AM [facility] Squamous Epithelial, Urine 14 0 - 60 /LPF LAB URINALYSIS - AUTOMATED METHOD 11/24/2024 12:11 AM [facility] Bacteria, Urine Negative Negative /HPF LAB URINALYSIS - AUTOMATED METHOD 11/24/2024 12:11 AM [facility] Hyaline Casts, Urine 0.4 0 - 3 /LPF LAB URINALYSIS - AUTOMATED METHOD 11/24/2024 12:11 AM [facility] Urine Urine specimen obtained by clean catch procedure / Unknown Non-blood Collection / Unknown 11/23/2024 11:28 PM EDT 11/24/2024 12:03 AM EDT us Ming Love MD LAB URINE ORDERABLES Final Res ult [facility] [address] [place] [address], * [place] urine culture tube (11/23/2024 11:28 PM EDT) Extra Tube Hold for add-ons. 11/25/2024 1:01 AM [facility] Comment:Auto resulted. Urine Urine specimen obtained by clean catch procedure / Unknown Non-blood Collection / Unknown 11/23/2024 11:28 PM EDT 11/24/2024 12:03 AM EDT us Ming Love MD LAB URINE ORDERABLES Final Res ult Performing Organization Address City/[facility]/ZIP Co de Phone Number [facility] [address] [place] [address], [place] [phone] * Culture urine (11/23/2024 11:28 PM EDT) Culture, Urine <10,000 CFU/mL gram positive cocci, insignificant count, no further workup 11/25/2024 10:10 AM EDT [facility] Urine Urine specimen obtained by clean catch procedure / Unknown Non-blood Collection / Unknown 11/23/2024 11:28 PM EDT 11/24/2024 12:11 AM EDT us Ming Love MD LAB MICROBIOLOGY - GENERAL ORD ERABLES Final Result Performing Organization Address [facility] Co de Phone Number [facility] [address] [place] [address], [place] [phone] from Last 3 Months Insurance MEDICARE MEDICAID - [place] Care Teams Staff Occupational Therapist Relationship Specialty Start Date End Date Dk Rodriguez MD [address] [place] [address] [place] [address] PCP - General Internal Medicine 07/16/24
--- OUTSIDE RECORDS SUMMARY | 2025-01-05 21:49 | XMS_ITS | Encounter Summary ---
Author Organization [facility] Address [address] [place] [address] Care Team Providers Care Site Head Name Role Phone Patient, Has No Pcp Or Ref Primary Care Provider Unavailable Encounter Details Date Type Department Care Team (Late st Contact Info) Description 01/04/2024 Community Orders [facility] Epic[facility] Link [address] [place] [address] Bethany Lozano, INTERNAL CONTROL CONSULTANT [address] [place] [address] Social History Tobacco Use Types Packs/Day Years [...] on filedocumented in this encounter Care Teams Site Head Relationship Specialty Start Date End Date Patient, Has No Pcp Or Ref DO NOT EDIT THIS RECORD VIA PROVIDER ON THE FLY PCP - General Political Scientist 12/30/23 documented as of this encounter
[2025-01-05 22:45] VITALS: BP 118/70; PULSE 88; RESP 18; TEMP 36.8; O2SAT 99
== END 2025-01-05 22:47 | disposition home or self-care (01) ==
PROVIDERS: Nurse Practitioner Family; Emergency Provider Emergency Medicine
DX: T83.098A Other mechanical complication of other urinary catheter, initial encounter (principal); F20.9 Schizophrenia, unspecified
CPT/HCPCS: 36415; 80053; 85025; 93005; 99283; 99284

== ENCOUNTER → 2025-01-05 20:28 | Outpatient (BNV) | payer MEDICARE, MEDICAID, SELFPAY | PROVIDERS: Emergency Provider Emergency Medicine; Visit Provider Internal Medicine | DX: R00.2 Palpitations (principal) | CPT/HCPCS: 93010 ==

== ENCOUNTER 2025-01-10 10:22 | Outpatient (AMB) | payer MEDICARE, MEDICAID, SELFPAY ==
--- OUTSIDE RECORDS SUMMARY | 2025-01-10 10:27 | XMS_ITS | Encounter Summary ---
Author Organization [facility] Address [address] [place] [address] Care Team Providers Care Area Field Worker Name Role Phone Patient, Has No Pcp Or Ref Primary Care Provider Unavailable Encounter Details Date Type Department Care Team (Late st Contact Info) Description 01/04/2024 Community Orders [facility] Epic[facility] Link [address] [place] [address] Bethany Lozano, DECK BUILDER [address] [place] [address] Social History Tobacco Use Types Packs/Day Years [...] on filedocumented in this encounter Care Teams Area Field Worker Relationship Specialty Start Date End Date Patient, Has No Pcp Or Ref DO NOT EDIT THIS RECORD VIA PROVIDER ON THE FLY PCP - General Lapidarist 12/30/23 documented as of this encounter
--- OUTSIDE RECORDS SUMMARY | 2025-01-10 10:27 | XMS_ITS | Clinical Summary ---
Author Organization [facility] Address [address] [place] [address] Phone Care Team Providers Care Wheel Assembler Name Role Phone Dk Rodriguez MD Primary Care Provider Allergies No known active allergies Medications No known medications Encounters Date Type Department Care Team Description 12/04/2024 11:34 PM EDT - 12/05/2024 1:06 AM EDT [facility] Emergency [address] [place] [phone] Discharge Disposition: Home or Self Care 12/02/2024 10:00 PM EDT - 12/03/2024 12:28 AM EDT [facility] Emergency [address] [place] [phone] Discharge Disposition: Home or Self Care 11/27/2024 10:17 PM EDT - 11/28/2024 8:54 AM EDT [facility] Emergency [address] [place] [phone] Discharge Disposition: Home or Self Care 11/26/2024 9:40 PM EDT - 11/27/2024 2:06 AM EDT [facility] Emergency [address] [place] [phone] Discharge Disposition: Home or Self Care 11/24/2024 11:19 PM EDT - 11/25/2024 1:14 AM EDT [facility] Emergency [address] [place] [phone] Discharge Disposition: Home or Self Care 11/23/2024 11:27 PM EDT - 11/24/2024 1:[address] [facility] Emergency [address] [place] [address] Urinary retention (Primary Dx) Discharge Disposition: Home or Self Care 11/22/2024 10:08 PM EDT - 11/23/2024 2:55 AM EDT [facility] Emergency [address] [place] [address] Discharge Disposition: Home or Self Care 11/18/2024 3:47 AM EDT - 11/18/2024 5:[address] [facility] Emergency [address] [place] [address] Discharge Disposition: Home or Self Care 11/09/2024 12:37 AM EDT - 11/09/2024 4:23 AM EDT [facility] Emergency [address] [place] [phone] Discharge Disposition: Home or Self Care from Last 3 Months Medical History Medical History Date Comments Bipolar 1 disorder ([facility] V24, [facility] V28) Mood disorder ([facility] V24) Hyperactivity of bladder Social History Tobacco [...] K/mcL LAB HEMETOLOGY METHOD 12/05/2024 12:52 AM [facility] RBC 4.00(L) 4.50 - 5.50 M/mcL LAB HEMETOLOGY METHOD 12/05/2024 12:52 AM T [facility] Hemoglobin 12.7(L) 13.5 - 17.5 g/dL LAB HEMETOLOGY METHOD 12/05/2024 12:52 AM [facility] Hematocrit 37.3(L) 42.0 - 54.0 % LAB HEMETOLOGY METHOD 12/05/2024 12:52 AM [facility] MCV 93.7 79.0 - 98.0 FL LAB HEMETOLOGY METHOD 12/05/2024 12:52 AM [facility] MCH 31.9 27.0 - 32.0 pcg LAB HEMETOLOGY METHOD 12/05/2024 12:52 AM [facility] MCHC 34.0 32.0 - 37.0 g/dL LAB HEMETOLOGY METHOD 12/05/2024 12:52 AM [facility] RDW 13.2 11.0 - 15.0 % LAB HEMETOLOGY METHOD 12/05/2024 12:52 AM [facility] Platelets 207 130 - 400 K/mcL LAB HEMETOLOGY METHOD 12/05/2024 12:52 AM [facility] MPV 9.4 7.0 - 11.0 FL LAB HEMETOLOGY METHOD 12/05/2024 12:52 AM [facility] NRBC 0.0 <1.0 % LAB HEMETOLOGY METHOD 12/05/2024 12:52 AM [facility] NRBC Absolute 0.00 <0.10 K/mcL LAB HEMETOLOGY METHOD 12/05/2024 12:52 AM [facility] Neutrophils Relative 56.8 % LAB HEMETOLOGY METHOD 12/05/2024 12:52 AM [facility] Lymphocytes Relative 27.7 % LAB HEMETOLOGY METHOD 12/05/2024 12:52 AM [facility] Monocytes Relative 11.1 % LAB HEMETOLOGY METHOD 12/05/2024 12:52 AM [facility] Eosinophils Relative 3.3 % LAB HEMETOLOGY METHOD 12/05/2024 12:52 AM [facility] Basophils Relative 0.8 % LAB HEMETOLOGY METHOD 12/05/2024 12:52 AM [facility] Immature Granulocytes Relative 0.3 % LAB HEMETOLOGY METHOD 12/05/2024 12:52 AM [facility] Neutrophils Absolute 4.19 1.50 - 7.00 K/mcL LAB HEMETOLOGY METHOD 12/05/2024 12:52 AM EDT [facility] Lymphocytes Absolute 2.04 1.00 - 5.00 K/[facility] LAB HEMETOLOGY METHOD 12/05/2024 12:52 AM EDT [facility] Monocytes Absolute 0.82 0.20 - 1.00 K/mcL LAB HEMETOLOGY METHOD 12/05/2024 12:52 AM EDT [facility] Eosinophils Absolute 0.24 0.00 - 0.50 K/[facility] LAB HEMETOLOGY METHOD 12/05/2024 12:52 AM EDT [facility] Basophils Absolute 0.06 0.00 - 0.20 K/[facility] LAB HEMETOLOGY METHOD 12/05/2024 12:52 AM [facility] Immature Granulocytes Absolute 0.02 0.00 - 0.03 K/[facility] LAB HEMETOLOGY METHOD 12/05/2024 12:52 AM T [facility] Blood Venous blood specimen / Unknown Venipuncture / Unknown 12/05/2024 12:00 AM EDT 12/05/2024 12:45 AM EDT us Dalila Alberto MD LAB BLOOD ORDERABLES Fin al Result [facility] [address] [place] [address], * (ABNORMAL) Comprehensive metabolic panel (12/05/2024 12:00 AM EDT) Sodium 139 133 - 145 mmol/L LAB CHEMISTRY METHOD 12/05/2024 1:25 AM [facility] Potassium 3.6 3.5 - 5.5 mmol/L LAB CHEMISTRY METHOD 12/05/2024 1:25 AM [facility] Chloride 108 96 - 110 mmol/L LAB CHEMISTRY METHOD 12/05/2024 1:25 AM [facility] CO2 26 21 - 32 mmol/L LAB CHEMISTRY METHOD 12/05/2024 1:25 AM [facility] Anion Gap 5 3 - 11 LAB CHEMISTRY METHOD 12/05/2024 1:25 AM [facility] Glucose 80 70 - 100 mg/dL LAB CHEMISTRY METHOD 12/05/2024 1:25 AM [facility] BUN 8 5 - 25 mg/dL LAB CHEMISTRY METHOD 12/05/2024 1:25 AM [facility] Creatinine 0.69(L) 0.70 - 1.30 mg/dL LAB CHEMISTRY METHOD 12/05/2024 1:25 AM [facility] eGFR 107 >=60 mL/min/1. 73m2 LAB CHEMISTRY METHOD 12/05/2024 1:25 AM [facility] Comment:Calculation based on the Chronic Kidney Disease Epidemiology Collaboration (CKD-EPI) equation refit without adjustment for race. BUN/Creatinine Ratio 11.6 LAB CHEMISTRY METHOD 12/05/2024 1:25 AM [facility] Calcium 8.6 8.5 - 10.5 mg/dL LAB CHEMISTRY METHOD 12/05/2024 1:25 AM [facility] AST (SGOT) 13 10 - 42 unit/L LAB CHEMISTRY METHOD 12/05/2024 1:25 AM [facility] ALT (SGPT) 16 10 - 60 unit/L LAB CHEMISTRY METHOD 12/05/2024 1:25 AM [facility] Alkaline Phosphatase 67 42 - 121 unit/L LAB CHEMISTRY METHOD 12/05/2024 1:25 AM [facility] Total Protein 6.3 6.0 - 8.0 g/dL LAB CHEMISTRY METHOD 12/05/2024 1:25 AM [facility] Albumin 3.3 3.2 - 5.0 g/dL LAB CHEMISTRY METHOD 12/05/2024 1:25 AM [facility] Total Bilirubin 0.4 0.0 - 1.4 mg/dL LAB CHEMISTRY METHOD 12/05/2024 1:25 AM [facility] Blood Venous blood specimen / Unknown Venipuncture / Unknown 12/05/2024 12:00 AM EDT 12/05/2024 12:45 AM EDT Dalila Alberto MD LAB BLOOD ORDERABLES Fin al Result [facility] [address] [place] [address], * (ABNORMAL) Urinalysis with reflex microscopic and culture (11/23/2024 11:28 PM EDT) Specific [place] Urine 1.007 1.003 - 1.030 LAB URINALYSIS - AUTOMATED METHOD 11/24/2024 12:11 AM [facility] pH, Urine 6.5 5.0 - 8.0 pH LAB URINALYSIS - AUTOMATED METHOD 11/24/2024 12:11 AM [facility] Leukocytes, Urine Moderate(A) Negative LAB URINALYSIS - AUTOMATED METHOD 11/24/2024 12:11 AM [facility] Nitrite, Urine Negative Negative LAB URINALYSIS - AUTOMATED METHOD 11/24/2024 12:11 AM [facility] Protein, Urine Negative <=Trace mg/dL LAB URINALYSIS - AUTOMATED METHOD 11/24/2024 12:11 AM [facility] Glucose, Urine Negative Negative mg/dL LAB URINALYSIS - AUTOMATED METHOD 11/24/2024 12:11 AM [facility] Ketones, Urine Negative Negative mg/dL LAB URINALYSIS - AUTOMATED METHOD 11/24/2024 12:11 AM [facility] Urobilinogen , Urine 0.2 0.2 - 1.0 mg/dL LAB URINALYSIS - AUTOMATED METHOD 11/24/2024 12:11 AM [facility] Bilirubin, Urine Negative Negative LAB URINALYSIS - AUTOMATED METHOD 11/24/2024 12:11 AM [facility] Blood, Urine Negative Negative LAB URINALYSIS - AUTOMATED METHOD 11/24/2024 12:11 AM [facility] RBC, Urine 1.3 0 - 4 /HPF LAB URINALYSIS - AUTOMATED METHOD 11/24/2024 12:11 AM [facility] WBC, Urine 8.1(H) 0 - 4 /HPF LAB URINALYSIS - AUTOMATED METHOD 11/24/2024 12:11 AM [facility] Squamous Epithelial, Urine 14 0 - 60 /LPF LAB URINALYSIS - AUTOMATED METHOD 11/24/2024 12:11 AM [facility] Bacteria, Urine Negative Negative /HPF LAB URINALYSIS - AUTOMATED METHOD 11/24/2024 12:11 AM [facility] Hyaline Casts, Urine 0.4 0 - 3 /LPF LAB URINALYSIS - AUTOMATED METHOD 11/24/2024 12:11 AM [facility] Urine Urine specimen obtained by clean catch procedure / Unknown Non-blood Collection / Unknown 11/23/2024 11:28 PM EDT 11/24/2024 12:03 AM EDT us Ming Love MD LAB URINE ORDERABLES Final Res ult [facility] [address] [place] [address], * [place] urine culture tube (11/23/2024 11:28 PM EDT) Extra Tube Hold for add-ons. 11/25/2024 1:01 AM [facility] Comment:Auto resulted. Urine Urine specimen obtained by clean catch procedure / Unknown Non-blood Collection / Unknown 11/23/2024 11:28 PM EDT 11/24/2024 12:03 AM EDT us Ming Love MD LAB URINE ORDERABLES Final Res ult Performing Organization Address City/[facility]/ZIP Co de Phone Number [facility] [address] [place] [address], [place] [phone] * Culture urine (11/23/2024 11:28 PM EDT) Culture, Urine <10,000 CFU/mL gram positive cocci, insignificant count, no further workup 11/25/2024 10:10 AM EDT [facility] Urine Urine specimen obtained by clean catch procedure / Unknown Non-blood Collection / Unknown 11/23/2024 11:28 PM EDT 11/24/2024 12:11 AM EDT us Ming Love MD LAB MICROBIOLOGY - GENERAL ORD ERABLES Final Result Performing Organization Address [facility] Co de Phone Number [facility] [address] [place] [address], [place] [phone] from Last 3 Months Insurance MEDICARE MEDICAID - [place] Care Teams Wheel Assembler Relationship Specialty Start Date End Date Dk Rodriguez MD [address] [place] [address] [place] [address] PCP - General Internal Medicine 07/16/24
--- NOTE | 2025-01-10 11:01 | MHC.PC.OV ---
Vital Signs 01/10/25 11:02 Height 5 ft 9 in Weight 142 lb 8 oz BMI 21.0 BP 100/60 Blood Pressure Location Lt brachial Position Sitting Pulse 72 Pulse Source Pulse Oximeter Temp 97.1 F Temp Source Temporal Artery Scan Pulse Oximetry (%) 96 Oxygen Delivery Method Room Air Intake Visit Reasons: hyperlipidemia Intake Note: Patient is here to follow up on HLD. 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 Health Required: No Central Office Trouble Shooter: Present Accompanied by: STAFF Allergies No Known Allergies (NO KNOWN ALLERGIES) Allergy (Unknown, Verified 01/10/25 18:17) UNKNOWN Medication List - Last Reconciled 01/10/25 by Dk Rodriguez MD atorvastatin 20 mg PO QPM 90 days tamsulosin 0.4 mg PO QAM 90 days Tobacco use date assessed: 01/10/25 Dental Screening Dental Screen Date: 01/10/25 Did you have a dental visit in the last 12 months?: No Did you have a dental problem in the last 6 months where you did not have access to dental care?: No Was dental information given to patient?: No HPI hyperlipidemia HPI Details Patient comes in today for his follow up visit States thathe currently feels okay He went to the ER earlier this week to request that his indwelling Santos catheter that was placed about 4 months ago be discontinued as it is starting to irritate him and the urine bag keeps scratching him on his legs He has been doing self catheterization in the past and states that he will just continue to do that when needed States that his indwelling Santos was removed, after which he was sent back to his longterm Patient states that he's had no problems since and that he currently feels okay He denies any headaches or dizziness Denies any chest pains, no SOB No nausea/vomiting, no abdominal pain No change in bowel habits noted Needs both of his Rx refilled today He had some routine labs done at the ER earlier this week but he has not been able to get his fasting cholesterol levels checked since April 2021 even though he is continuing to take his Atorvastatin all this time [facility] Medical History Smoker GERD without esophagitis Tubular adenoma of colon (~2019) Personal history of nicotine dependence Constipation Back pain Schizoaffective disorder, bipolar type Anxiety Benign prostatic hyperplasia with lower urinary tract symptoms Pure hypercholesterolemia Thought disorder Bipolar 1 disorder Mood disorder Surgical History History of colonoscopy (~04/2019) History of prostate surgery (~04/2019) History of open reduction and internal fixation (ORIF) procedure (~08/2018) Family History Father Lung cancer BPH (benign prostatic hyperplasia) Mother Dementia Brother Myocardial infarction Other Mental health problem Substance abuse Social History Household Members: None Housing: Assisted Living Facility Housing Other:: longterm Do you presently have visiting nurse or other home services: No Alcohol intake: never Patient Tobacco Use Status: Current everyday Tobacco user Tobacco use type: Cigarette Cigarette Packs Per Day: 0.5 Cigarettes Per Day: 5 Years Smoked: 10 e-Cigarette/Vaping Use: Never Used Second Hand Smoke Exposure: Yes service: No Current occupational status: employed Current occupation: [employer] Sexual orientation: Decline to Answer Cognitive needs: No Hearing needs: No Vision needs: Yes Questionnaire PHQ-9 Over the last 2 weeks, how often have you been bothered by any of the following problems? Depression Screening Interpretation: Negative Depression Screening Done: Yes Source: Developed by Drs. Adolfo Munoz, Michelle Dumont, Gregory Rai and colleagues, with an educational ebenezer from [employer]. Thrive Questionnaire Date Thrive assessed: 09/10/24 I am a: Patient What is your living situation today?: I have a steady place to live Within the past 12 months, did the food you bought not last and you didn't have the money to get more?: Never true Within the past 12 months, did you worry whether your food would run out before you got money to buy more?: Never true Do you have trouble paying for medicines?: No Do you have trouble getting transportation to medical appointments?: No Do you have trouble paying your heating and electricity bill?: No Do you have trouble taking care of your child, family member or friend?: No Do you have trouble with day-to-day activities such as bathing, preparing meals, shopping, managing finances, etc.?: No Are you currently unemployed and looking for a job?: No Are you interested in more education?: No Please select the resources that you would like help with: None Currently or been in a relationship where the following occur: No concerns reported THRIVE Score: 0 JALEESA-7 AMB Questionnaire JALEESA-7 Date JALEESA - 7 assessed: 09/10/24 Source: Developed by Drs. Adolfo Munoz, Michelle Dumont, Gregory Rai and colleagues, with an educational ebenezer from [employer]. Review of Systems Const Denies chills, Denies difficulty sleeping, Denies fatigue, Denies fever(s) and Denies headache(s) ENT Denies dysphagia, Denies dizziness, Denies otalgia, Denies headache(s), Denies neck pain, Denies odynophagia and Denies sore throat Card Denies chest pain, Denies rapid heart rate, Denies irregular heart rhythm, Denies palpitations and Denies dyspnea Resp Denies chest congestion, Denies cough and Denies dyspnea GI Denies abdominal pain, Reports constipation (at times - better controlled lately), Denies dysphagia, Denies heartburn, Denies diarrhea, Denies nausea, Denies odynophagia and Denies vomiting Denies hematuria, Denies difficulty urinating (improved; does self catheterization if needed), Denies dysuria, Denies urinary frequency and Denies urinary incontinence Musc Denies back pain, Denies arthralgias and Denies neck pain Skin/Breast Denies rash Neuro Denies dizziness and Denies headache(s) Psych Reports anxiety Endo Denies fatigue and Denies palpitations Physical exam (Primary Care) Vital Signs: Last Vital Signs Temp 97.1 F 01/10/25 11:02 Pulse 72 01/10/25 11:02 BP 100/60 01/10/25 11:02 Pulse Ox 96 01/10/25 11:02 Oxygen Delivery Method Room Air 01/10/25 11:02 BMI result Body Mass Index 21.0 Tobacco/Smoking Status: Tobacco use Status Tobacco use date assessed 01/10/25 01/10/25 11:07 Patient Tobacco Use Status Current everyday Tobacco 01/10/25 11:07 Tobacco use type Cigarette 01/10/25 11:07 e-Cigarette/Vaping Use Never Used 01/10/25 11:07 Depression Screening Interpretation: Negative Thrive Assessment: Date of Thrive Assessment Date Thrive assessed 09/10/24 01/10/25 11:07 Currently or been in a relationship where the following occur: No concerns reported Const General: no acute distress and alert HENMT Ears: TM's normal bilaterally and EAC's normal Throat: Yes posterior oropharynx normal and Yes tonsils normal (no TP congestion) Neck Neck: Yes supple and No lymphadenopathy Thyroid: Thyroid normal Resp Auscultation: clear to auscultation bilaterally, no rales and no wheezes Cardio Rate: regular rate Rhythm: regular rhythm Heart sounds: no murmurs GI Palpation (GI): Soft to palpation and nontender Auscultation: normal bowel sounds General: Yes no CVA tenderness Back/Spine/Pelvis Back: no CVA tenderness Thoracic/Lumbar Spine: No lumbar spinal tenderness Skin Rashes: no rashes Extrem General: Yes no clubbing, cyanosis or edema Results Reviewed Results Reviewed: Laboratory Tests 01/05/25 20:51 WBC 5.4 Hgb 12.2 L Hct 34.9 L Plt Count 179 Sodium 140 Potassium 3.5 Creatinine 0.80 Estimated GFR > 60 Random Glucose 133 H Calcium 8.7 Total Bilirubin 0.3 AST 20 ALT 17 Total Protein 6.6 Albumin 3.8 Coding Level of Care Code Est Pt Level 4 (35977) Diagnoses Pure hypercholesterolemia E78.00 Neurogenic bladder N31.9 Benign prostatic hyperplasia with urinary retention N40.1; R33.8 Lower urinary tract symptom detail: urinary retention GERD without esophagitis K21.9 Constipation, unspecified constipation type K59.00 Constipation type: unspecified constipation type Anxiety F41.9 Schizoaffective disorder, bipolar type F25.0 Smoker F17.200 Assessment & Plan Assessment & Plan (1) Pure hypercholesterolemia: Code(s): E78.00 - Pure hypercholesterolemia, unspecified Category: Medical Plan: Reinforced low cholesterol diet Continue Atorvastatin 20 mg QD Will recheck his labs and fasting lipids in 4 months for follow up - patient has been advised that he has not had his fasting lipids rechecked since April 2021 (almost 4 years ago) and he should make sure he gets his fasting labs done BEFORE he comes back for his follow up appointment in 4 months (2) Neurogenic bladder: Code(s): N31.9 - Neuromuscular dysfunction of bladder, unspecified Category: Medical Plan: Patient states that he is doing well at present and has had no problems since his indwelling Santos was removed at the ER earlier this week He does self-catheterization when needed Follow up with urology as scheduled - he goes to Urology in [place] (3) Benign prostatic hyperplasia with lower urinary tract symptoms: Code(s): N40.1 - Benign prostatic hyperplasia with lower urinary tract symptoms Category: Medical Qualifiers: Lower urinary tract symptom detail: urinary retention Qualified Code(s): N40.1 - Benign prostatic hyperplasia with lower urinary tract symptoms; R33.8 - Other retention of urine Plan: Continue Tamsulosin 0.4 mg Q HS Follow up with urology as scheduled (4) GERD without esophagitis: Code(s): K21.9 - Gastro-esophageal reflux disease without esophagitis Category: Medical Plan: Dietary restrictions reinforced (5) Constipation: Code(s): K59.00 - Constipation, unspecified Category: Medical Qualifiers: Constipation type: unspecified constipation type Qualified Code(s): K59.00 - Constipation, unspecified Plan: Reinforced increased oral fluids and dietary fiber intake He used to take Miralax 17 gm QD but has not needed this in a while now (6) Anxiety: Code(s): F41.9 - Anxiety disorder, unspecified Category: Medical Plan: Follow up with psychiatry as scheduled (7) Schizoaffective disorder, bipolar type: Code(s): F25.0 - Schizoaffective disorder, bipolar type Category: Medical Plan: He is currently no longer taking any of his previous psychiatric medications Follow up with psychiatry as scheduled (8) Smoker: Code(s): F17.200 - Nicotine dependence, unspecified, uncomplicated Category: Social Hx Plan: Patient is counseled again on complete smoking cessation Plan Follow up in 4 months Orders: Orders Complete Blood Count Auto Diff 4 Months D64.9 - Anemia, unspecified Vitamin D 25-OH Total 4 Months E55.9 - Vitamin D deficiency, unspecified Lipid Panel 4 Months E78.00 - Pure hypercholesterolemia, unspecified TSH reflex Free T4 4 Months E78.00 - Pure hypercholesterolemia, unspecified Comprehensive [place]. Panel Fast 4 Months E78.00 - Pure hypercholesterolemia, unspecified Medications: Changed From atorvastatin 20 mg PO QPM 30 days 30 tabs 1RF To atorvastatin 20 mg PO QPM 90 tabs 3RF 90 days Refilled tamsulosin 0.4 mg PO QAM 90 caps 0RF 90 days N40.1 - Benign prostatic hyperplasia with lower urinary tract symptoms, R35.1 - Nocturia
[2025-01-10 11:02] VITALS: BP 100/60; PULSE 72; TEMP 36.2; O2SAT 96; BMI 21.0
== END 2025-01-10 12:09 | disposition home or self-care (01) ==
LOC: HO.HMCH 10:23
PROVIDERS: PCP Internal Medicine; Visit Provider Internal Medicine
DX: E78.00 Pure hypercholesterolemia, unspecified (principal); N31.9 Neuromuscular dysfunction of bladder, unspecified; F25.0 Schizoaffective disorder, bipolar type; N40.1 Benign prostatic hyperplasia with lower urinary tract symptoms; R33.8 Other retention of urine; K21.9 Gastro-esophageal reflux disease without esophagitis; K59.00 Constipation, unspecified; F41.9 Anxiety disorder, unspecified; F17.200 Nicotine dependence, unspecified, uncomplicated

== ENCOUNTER → 2025-01-10 10:22 | Outpatient (BNVA) | payer MEDICARE, MEDICAID, SELFPAY | PROVIDERS: PCP Internal Medicine; Visit Provider Internal Medicine | DX: E78.00 Pure hypercholesterolemia, unspecified (principal); N31.9 Neuromuscular dysfunction of bladder, unspecified; N40.1 Benign prostatic hyperplasia with lower urinary tract symptoms; R33.8 Other retention of urine; K21.9 Gastro-esophageal reflux disease without esophagitis; K59.00 Constipation, unspecified; F41.9 Anxiety disorder, unspecified; F25.0 Schizoaffective disorder, bipolar type; F17.200 Nicotine dependence, unspecified, uncomplicated; Z71.6 Tobacco abuse counseling | CPT/HCPCS: 99212 ==

== ENCOUNTER 2025-01-11 01:16 | Emergency (ER) | payer MEDICARE, MEDICAID, SELFPAY ==
[2025-01-11 01:19] VITALS: BP 121/73; PULSE 108; RESP 18; TEMP 36.7; O2SAT 98; BMI 20.6
[2025-01-11 01:52] LABS: Hematocrit 35.7 % (42.0-52.0); Hemoglobin 12.5 g/dl (14.0-18.0); Mean Corpuscular HGB Conc 35.0 g/dl (31.0-36.0); Mean Corpuscular Hemoglobin 32.1 pg (27.0-33.0); Mean Corpuscular Volume 91.5 fL (80.0-98.0); NRBC Abs Auto 0.000 X10*3/uL (0.0-0.012); NRBC Pct Auto 0.0 /100WBC (0.0-0.2); Platelet Count 197 X10*3/uL (160-400); Red Blood Count 3.90 X10*6/uL (4.60-5.80); White Blood Count 8.0 X10*3/uL (4.8-10.8)
[2025-01-11 02:11] LABS: Alanine Aminotransferase 11 U/L (0-40); Albumin Level 3.9 g/dL (3.5-5.0); Alkaline Phosphatase 61 U/L (39-117); Anion Gap 13 (12-20); Aspartate Amino Transferase 22 U/L (5-37); Blood Urea Nitrogen 8 mg/dL (9-16); Calcium 9.5 mg/dL (8.4-10.2); Carbon Dioxide 24 mmol/L (22-29); Chloride 109 mmol/L (96-108); Creatinine Clr Calc Pharmacy 90.0; Estimated Glomerular Filt Rate > 60; Lipase 24 U/L (8-78); Magnesium 1.9 mg/dL (1.6-2.6); Potassium 4.2 mmol/L (3.3-5.1); Sodium 142 mmol/L (135-145); Total Protein 6.5 g/dL (6.5-8.0)
--- OUTSIDE RECORDS SUMMARY | 2025-01-11 02:47 | XMS_ITS | Encounter Summary ---
Author Organization [facility] Address [address] [place] [address] Care Team Providers Care Social Worker Assistant Name Role Phone Patient, Has No Pcp Or Ref Primary Care Provider Unavailable Encounter Details Date Type Department Care Team (Late st Contact Info) Description 01/04/2024 Community Orders [facility] EpicCare Link [address] [place] [address] Bethany Lozano, HOUSEKEEPING ASSISTANT [address] [place] [address] Social History Tobacco Use Types Packs/Day Years [...] on filedocumented in this encounter Care Teams Social Worker Assistant Relationship Specialty Start Date End Date Patient, Has No Pcp Or Ref DO NOT EDIT THIS RECORD VIA PROVIDER ON THE FLY PCP - General Strategic Advisor 12/30/23 documented as of this encounter
--- NOTE | 2025-01-11 05:26 | ED_ITS ---
HPI - General Adult General Chief complaint: Abdominal Pain Stated complaint: Not feeling well Time Seen by Provider: 01/11/25 05:22 Source: patient Mode of arrival: ambulatory Limitations: no limitations History of Present Illness ED Provider: Dr. Ginger Mello HPI narrative: Patient comes to the emergency room stating that he has lower abdominal pain, complaining that he does not like the staff at his shelter. Patient has several complaints inked mostly about the staff in his shelter but also about his Santos catheter? . Patient states that he does not want to talk about his Santos catheter, states that he will like to be discharged home as soon as possible and does not want any further interventions. Patient is refusing to answer questions periods very strange affect Related Data Previous Rx's ?Medication ?Instructions ?Recorded atorvastatin 20 mg tablet 20 mg PO QPM 90 days #90 tab s 01/10/25 tamsulosin 0.4 mg capsule 0.4 mg PO QAM 90 days #90 ca ps 01/10/25 Allergies Allergy/AdvReac Type Severity Reaction Status Date / Time No Known Allergies (NO KNOWN Allergy Unknown UNKNOWN Verified 01/11/25 01:26 ALLERGIES) Review of Systems 2 Review of Systems: Constitutional : No Weight loss, No Fever, No Chills, No Night Sweats, No Fatigue, No Malaise ENT/Mouth : No Hearing loss, No Ear Pain, No Nasal Congestion, No Sinus Pain, No Hoarseness, No sore throat, No Rhinorrhea, No Swallowing Difficulty Eyes: No Eye Pain, No Swelling, No Redness, No Foreign Body, No Discharge, No Vision Changes Cardiovascular : No Chest Pain, No SOB, No Dyspnea on Exertion, No Orthopnea, No Edema, No Palpitations Respiratory : No Cough, No Sputum, No Wheezing, No Smoke Exposure, No Dyspnea Gastrointestinal : No Nausea, No Vomiting, No Diarrhea, No Constipation, No abdominal Pain, No Hematochezia, No Melena Genitourinary : Patient complaining of urinary discomfort. However, strange the patient does not want to talk about his Santos catheter, does not want to answer any questions Musculoskeletal : No joint pain, No Myalgias, No Joint Swelling Skin : No Skin Lesions, No rash Neuro : No Weakness, No Numbness, No Paresthesias, No Loss of Consciousness, No Dizziness, No Headache Psych : No Anxiety/Panic, No Depression, No SI/HI/AH/VH, No Social Issues, Heme/Lymph: No Bruising, No Bleeding,No Lymphadenopathy Endocrine : No Polyuria, No Polydipsia, No Temperature Intolerance [facility] Past Medical History Medical History Smoker GERD without esophagitis Tubular adenoma of colon (~2018) Personal history of nicotine dependence Constipation Back pain Schizoaffective disorder, bipolar type Anxiety Benign prostatic hyperplasia with lower urinary tract symptoms Pure hypercholesterolemia Thought disorder Bipolar 1 disorder Mood disorder Surgical History History of colonoscopy (~04/2019) History of prostate surgery (~04/2019) History of open reduction and internal fixation (ORIF) procedure (~08/2018) Family History Family History Father Lung cancer BPH (benign prostatic hyperplasia) Mother Dementia Brother Myocardial infarction Other Mental health problem Substance abuse Social History Social History Household Members: None Housing: Assisted Living Facility Housing Other:: shelter Do you presently have visiting nurse or other home services: No Alcohol intake: never Patient Tobacco Use Status: Current everyday Tobacco user Tobacco use type: Cigarette Cigarette Packs Per Day: 0.5 Cigarettes Per Day: 5 Years Smoked: 10 e-Cigarette/Vaping Use: Never Used Second Hand Smoke Exposure: Yes Advance Directives: No Advance Directives Information Provided: Yes service: No Current occupational status: employed Current occupation: [employer] Sexual orientation: Decline to Answer Cognitive needs: No Hearing needs: No Vision needs: Yes Physical Exam ED Exam Exam: Appearance: Alert. Oriented X3. No acute distress. Eyes: Pupils equal, round and reactive to light. ENT: Pharynx normal. Neck: Normal inspection. Neck supple. No lymph nodes noted. No crepitus CVS: Per patient's vitals pulse 108, patient declined physical exam Respiratory: No respiratory distress. Breath sounds normal. No Wheezing. No rales Abdomen: Declined exam : Declined exam Skin: Skin warm and dry. Normal skin color. Normal skin turgor. Extremities: No lower extremity edema. No Lacerations. No Rash Neuro: Oriented X 3. No motor deficit. No sensory deficit. Moving all extremities. No slurred speech. CN 2 through 12 grossly intact Psych: calm, angry Vital Signs: Vital Signs - 24 hr 01/11/25 01:19 Temperature 98.1 F Pulse Rate 108 H Respiratory Rate 18 Blood Pressure 121/73 Pulse Oximetry 98 Oxygen Delivery Method Room Air BMI result Body Mass Index 20.6 Medical Decision Making Medical Decision Making [facility] Narrative: My interpretation of labs: No significant abnormality in patient's hematology and chemistry Patient declined physical exam. Patient did not want to answer any questions to me or to his nurse. Patient was just angry at the shelter staff. Patient declined any further assistance and said that he needed to go home, patient got up and left Patient did not provide a urine sample Lab Data [facility] Lab Attestation statement: I reviewed the patient's lab results. 01/11/25 01:48 01/11/25 01:48 Labs: Lab Results 01/11/25 Range/Units 01:48 WBC 8.0 (4.8-10.8) X10*3/uL RBC 3.90 L (4.60-5.80) X10*6/uL Hgb 12.5 L (14.0-18.0) g/dl Hct 35.7 L (42.0-52.0) % MCV 91.5 (80.0-98.0) fL MCH 32.1 (27.0-33.0) pg MCHC 35.0 (31.0-36.0) g/dl RDW 14.2 (11.0-16.0) % Plt Count 197 (160-400) X10*3/uL MPV 9.3 L (9.4-12.4) fL Absolute Nucleated RBC 0.000 (0.0-0.012) X10*3/uL Nucleated RBC % (auto) 0.0 (0.0-0.2) /100WBC Sodium 142 (135-145) mmol/L Potassium 4.2 (3.3-5.1) mmol/L Chloride 109 H (96-108) mmol/L Carbon Dioxide 24 (22-29) mmol/L Anion Gap 13 (12-20) BUN 8 L (9-16) mg/dL Creatinine 0.79 (0.5-1.4) mg/dL Estim Creat Clear Calc 90.0 Estimated GFR > 60 Random Glucose 99 (60-115) mg/dL Calcium 9.5 D (8.4-10.2) mg/dL Magnesium 1.9 (1.6-2.6) mg/dL Total Bilirubin 0.5 (0.0-1.0) mg/dL Direct Bilirubin 0.2 (0.0-0.5) mg/dL AST 22 (5-37) U/L ALT 11 (0-40) U/L Alkaline Phosphatase 61 (39-117) U/L Total Protein 6.5 (6.5-8.0) g/dL Albumin 3.9 (3.5-5.0) g/dL Lipase 24 (8-78) U/L Discharge Plan Discharge Clinical Impression: Santos catheter problem Patient Disposition: Left W/O Completing Treatment Prescriptions: No Action tamsulosin 0.4 mg capsule 0.4 mg PO QAM 90 Days Qty: 90 0RF atorvastatin 20 mg tablet 20 mg PO QPM 90 Days Qty: 90 3RF
--- NOTE | 2025-01-11 05:30 | PC.NURSE ---
the patient yelling that he wants to talk to somebody. this nurse entered room inquiring pt's needs. states he wants to know about his blood work and to take a look at my catheter. this nurse verbally offered to discuss/assess. the patient then became agitated stating that is not what I want. I want a doctor. MD Mello to bedside
--- NOTE | 2025-01-11 05:34 | PC.NURSE ---
ambulates steadily. states he does not want to wait. pt shared on arrival that he had walked from [facility] because they were taking took long, too. states I'm done with this, I'm getting out of here.
[2025-01-11 05:37] VITALS: BP 0/0; PULSE 0; RESP 0; TEMP -17.7; TEMP 0; O2SAT 0
== END 2025-01-11 05:38 | disposition left against medical advice (07) ==
PROVIDERS: Emergency Provider Emergency Medicine; PCP Internal Medicine
DX: T83.9XXA Unspecified complication of genitourinary prosthetic device, implant and graft, initial encounter (principal); Y73.8 Miscellaneous gastroenterology and urology devices associated with adverse incidents, not elsewhere classified; Y92.9 Unspecified place or not applicable; R10.30 Lower abdominal pain, unspecified; F17.210 Nicotine dependence, cigarettes, uncomplicated
CPT/HCPCS: 36415; 80053; 82248; 83690; 83735; 85027; 99283

== ENCOUNTER 2025-01-13 01:46 | Emergency (ER) | payer MEDICARE, MEDICAID, SELFPAY ==
[2025-01-13 01:50] VITALS: BP 112/73; PULSE 95; RESP 20; TEMP 36.9; O2SAT 96; BMI 20.3
--- NOTE | 2025-01-13 03:16 | PC.NURSE ---
When utility driver to [facility] to get another patient, registration made me aware that the patient had just left the department. Pt not found in the waiting room.
== END 2025-01-13 03:18 | disposition left against medical advice (07) ==
PROVIDERS: Emergency Provider Emergency Medicine; PCP Internal Medicine
DX: R39.89 Other symptoms and signs involving the genitourinary system (principal); Z53.21 Procedure and treatment not carried out due to patient leaving prior to being seen by health care provider
CPT/HCPCS: 99281

== ENCOUNTER 2025-01-13 04:14 | Emergency (ER) | payer MEDICARE, MEDICAID, SELFPAY ==
[2025-01-13 04:24] VITALS: BP 123/59; PULSE 87; RESP 18; TEMP 36.8; O2SAT 97; BMI 22.4
--- OUTSIDE RECORDS SUMMARY | 2025-01-13 05:02 | XMS_ITS | Encounter Summary ---
Author Organization [facility] Address [address] [place] [address] Care Team Providers Care Nautical Instrument Mechanic Name Role Phone Patient, Has No Pcp Or Ref Primary Care Provider Unavailable Encounter Details Date Type Department Care Team (Late st Contact Info) Description 01/04/2024 Community Orders [facility] EpicCare Link [address] [place] [address] Bethany Lozano, CONVOLUTE TUBE WINDER [address] [place] [address] Social History Tobacco Use Types Packs/Day Years [...] on filedocumented in this encounter Care Teams Nautical Instrument Mechanic Relationship Specialty Start Date End Date Patient, Has No Pcp Or Ref DO NOT EDIT THIS RECORD VIA PROVIDER ON THE FLY PCP - General Trip Rider 12/30/23 documented as of this encounter
== END 2025-01-13 08:00 | disposition left against medical advice (07) ==
PROVIDERS: Emergency Provider Emergency Medicine; PCP Internal Medicine
DX: R39.198 Other difficulties with micturition (principal); Z53.21 Procedure and treatment not carried out due to patient leaving prior to being seen by health care provider
CPT/HCPCS: 99281

== ENCOUNTER 2025-01-13 12:31 | Emergency (ER) | payer MEDICARE, MEDICAID, SELFPAY ==
[2025-01-13 13:32] VITALS: BP 135/74; PULSE 76; RESP 18; TEMP 36.6; O2SAT 96; BMI 20.6
--- NOTE | 2025-01-13 13:32 | ED.GENADULT ---
HPI - General Adult General Chief complaint: Urogenital-Male Stated complaint: Abd pain, stomach upset L Related Data Previous Rx's ?Medication ?Instructions ?Recorded atorvastatin 20 mg tablet 20 mg PO QPM 90 days #90 tabs 01/10/25 tamsulosin 0.4 mg capsule 0.4 mg PO QAM 90 days #90 caps 01/10/25 Allergies Allergy/AdvReac Type Severity Reaction Status Date / Time No Known Allergies (NO KNOWN Allergy Unknown UNKNOWN Verified 01/15/25 00:35 ALLERGIES) [facility]LY [facility] Past Medical History Medical History Smoker GERD without esophagitis Tubular adenoma of colon (~2018) Personal history of nicotine dependence Constipation Back pain Schizoaffective disorder, bipolar type Anxiety Benign prostatic hyperplasia with lower urinary tract symptoms Pure hypercholesterolemia Thought disorder Bipolar 1 disorder Mood disorder Surgical History History of colonoscopy (~04/2019) History of prostate surgery (~04/2019) History of open reduction and internal fixation (ORIF) procedure (~08/2018) Family History Family History Father Lung cancer BPH (benign prostatic hyperplasia) Mother Dementia Brother Myocardial infarction Other Mental health problem Substance abuse Social History Social History Household Members: None Housing: Assisted Living Facility Housing Other:: skilled nursing Do you presently have visiting nurse or other home services: No Alcohol intake: never Patient Tobacco Use Status: Current everyday Tobacco user Tobacco use type: Cigarette Cigarette Packs Per Day: 0.5 Cigarettes Per Day: 5 Years Smoked: 10 Smoked in Last 30 Days: No e-Cigarette/Vaping Use: Never Used Second Hand Smoke Exposure: Yes Use of substances other than those prescribed or required for medical reasons: No Advance Directives: No Do you have a plan to hurt others: No Plan service: No Current occupational status: employed Current occupation: [employer] Sexual orientation: Decline to Answer Cognitive needs: No Hearing needs: No Vision needs: Yes Physical Exam ED Vital Signs: BMI result Body Mass Index 20.6 Course Course Course Narrative: This is a rapid medical exam performed by Walter Crawford NP: Additional HPI, ROS, PE not included below will be deferred to primary provider. Patient is a 59-year-old male with pmhx of schizoaffective disorder, Bipolar 1 disorder, BPH with current indwelling urinary catheter presenting from day program with complaint of abd pain, states that he has pain to bladder and penis with ambulation. Plan: labs, UA, bladder scan Patient left the emergency department before myself or any of the other clinicians could review or explain physical exam findings, test results, need or lack there of for additional testing, treatment options, or a treatment plan. Discharge Plan Discharge Clinical Impression: Abdominal pain Patient Disposition: Left W/O Completing Treatment Prescriptions: No Action tamsulosin 0.4 mg capsule 0.4 mg PO QAM 90 Days Qty: 90 0RF atorvastatin 20 mg tablet 20 mg PO QPM 90 Days Qty: 90 3RF Discharge Date/Time: 01/13/25 19:36
--- OUTSIDE RECORDS SUMMARY | 2025-01-13 19:39 | XMS_ITS | Encounter Summary ---
Author Organization [facility] Address [address] [place] [address] Care Team Providers Care Cook At School Name Role Phone Patient, Has No Pcp Or Ref Primary Care Provider Unavailable Encounter Details Date Type Department Care Team (Late st Contact Info) Description 01/04/2024 Community Orders [facility] EpicCare Link [address] [place] [address] Bethany Lozano, DEMOLITION SPECIALIST [address] [place] [address] Social History Tobacco Use Types Packs/Day Years [...] on filedocumented in this encounter Care Teams Cook At School Relationship Specialty Start Date End Date Patient, Has No Pcp Or Ref DO NOT EDIT THIS RECORD VIA PROVIDER ON THE FLY PCP - General Leveler 12/30/23 documented as of this encounter
== END 2025-01-13 19:36 | disposition left against medical advice (07) ==
LOC: HO.ED 19:37
PROVIDERS: Emergency Provider Emergency Medicine; PCP Internal Medicine
DX: R10.9 Unspecified abdominal pain (principal); K30 Functional dyspepsia; R39.89 Other symptoms and signs involving the genitourinary system; N48.89 Other specified disorders of penis; F17.210 Nicotine dependence, cigarettes, uncomplicated
CPT/HCPCS: 51798; 99281; 99283

== ENCOUNTER 2025-01-15 00:31 | Emergency (ER) | payer MEDICARE, MEDICAID, SELFPAY ==
--- OUTSIDE RECORDS SUMMARY | 2025-01-12 20:45 | XMS_ITS | Encounter Summary ---
Author Organization [facility] Address [address] [place] [address] Care Team Providers Care Shale Planer Operator Helper Name Role Phone Dk Rodriguez MD Primary Care Provider [phone] Reason for Visit * Reason Comments Abdominal Pain I want to see a doc tor now I have abd pain and catheter issues Encounter Details Date Type Department Care Team (Late st Contact Info) Description 01/12/2025 8:45 PM EDT - 01/12/2025 11:57 PM EDT Emergency [facility] Emergency [address] [place] [id number] Dilcia Carl MD [address] [place], [place] [id number] Discharge Disposition: Left Against Medical Advice Social History Tobacco Use Types Packs/Day Years [...] Sign Reading Time Taken Comments Blood Pressure 106/78 01/12/2025 8:51 PM EDT Pulse 89 01/12/2025 8:51 PM EDT Temperature 36.5 C (97.7 F) 01/12/2025 8:51 PM EDT Respiratory Rate 16 01/12/2025 8:51 PM EDT Oxygen Saturation - - Inhaled Oxygen Concentration - - Weight 65.8 kg (145 lb) 01/12/2025 8:51 PM EDT Height 175 cm (5' 8.9 ) 01/12/2025 8:51 PM EDT Body Mass Index 21.48 01/12/2025 8:51 PM EDT documented in this encounter Functional Status * Are you deaf or do you have serious difficulty hearing? Answer Date of Assessment Author No 11/24/2024 1:09 AM EDTaye Pena RN * Are you blind or do you have serious difficulty seeing, even when wearing glasses? Answer Date of Assessment Author No 11/24/2024 1:09 AM Taye Gerard RN * Do you have serious difficulty walking or climbing stairs? Answer Date of Assessment Author No 11/24/2024 1:09 AM Taye Gerard RN * Do you have serious difficulty dressing or bathing? Answer Date of Assessment Author No 11/24/2024 1:09 AM Taye Gerard RN * Because of a physical, mental, or emotional condition, do you have serious difficulty doing errandsalone such as visiting the doctor? Answer Date of Assessment Author No 11/24/2024 1:09 AM Taye Gerard RN documented as of this encounter Mental Status * Because of a physical, mental, or emotional condition, do you have serious difficulty concentrating, remembering, or making decisions? (5 years old or older) Answer Entry Date Author No 11/24/2024 1:09 AM Taye Gerard RN documented in this encounter Discharge Disposition Disposition Code Departure Means Destination Left Against Medical Advice documented in this encounter Progress Notes * Shavon Cardona RN - 01/12/2025 8:48 PM EDT Pt states he has a catheter, having pain. It was placed 6 weeks ago. Pt was retaining urine. Stateshe wasn't given a follow up with urology. Pt states he resides in nursing home, states he left due suzy argument. States he also has lower abdominal pain, left rib pain and left forearm. Wants schafer removed. documented in this encounter Plan of Treatment Not on file documented as of this encounter Visit Diagnoses Not on filedocumented in this encounter Care Teams Shale Planer Operator Helper Relationship Specialty Start Date End Date Dk Rodriguez MD [address] [place] [address] [address] [place], [place] PCP - General Internal Medicine 07/16/24 documented as of this encounter
[2025-01-15 00:33] VITALS: BP 106/64; PULSE 97; RESP 18; TEMP 36.2; O2SAT 96
--- NOTE | 2025-01-15 01:19 | ED_ITS ---
HPI - General Adult General Chief complaint: General Medical Stated complaint: schafer bag leaking Time Seen by Provider: 01/15/25 00:56 Source: patient Mode of arrival: ambulatory Limitations: no limitations History of Present Illness ED Provider: HPI narrative: Patient with neurogenic bladder status post Schafer catheter comes here as he does not want Schafer catheter in place wants it to be removed as he feels very calm and comfortable he does have straight cath which he can use in case he needed Related Data Previous Rx's ?Medication ?Instructions ?Recorded atorvastatin 20 mg tablet 20 mg PO QPM 90 days #90 tab s 01/10/25 tamsulosin 0.4 mg capsule 0.4 mg PO QAM 90 days #90 ca ps 01/10/25 Allergies Allergy/AdvReac Type Severity Reaction Status Date / Time No Known Allergies (NO KNOWN Allergy Unknown UNKNOWN Verified 01/15/25 00:35 ALLERGIES) Review of Systems Review of Systems: Yes all other systems are reviewed and are negative PMFSH Past Medical History Medical History Smoker GERD without esophagitis Tubular adenoma of colon (~2018) Personal history of nicotine dependence Constipation Back pain Schizoaffective disorder, bipolar type Anxiety Benign prostatic hyperplasia with lower urinary tract symptoms Pure hypercholesterolemia Thought disorder Bipolar 1 disorder Mood disorder Surgical History History of colonoscopy (~04/2019) History of prostate surgery (~04/2019) History of open reduction and internal fixation (ORIF) procedure (~08/2018) Family History Family History Father Lung cancer BPH (benign prostatic hyperplasia) Mother Dementia Brother Myocardial infarction Other Mental health problem Substance abuse Social History Social History Household Members: None Housing: Assisted Living Facility Housing Other:: long term Do you presently have visiting nurse or other home services: No Alcohol intake: never Patient Tobacco Use Status: Current everyday Tobacco user Tobacco use type: Cigarette Cigarette Packs Per Day: 0.5 Cigarettes Per Day: 5 Years Smoked: 10 Smoked in Last 30 Days: No e-Cigarette/Vaping Use: Never Used Second Hand Smoke Exposure: Yes Use of substances other than those prescribed or required for medical reasons: No Advance Directives: No Do you have a plan to hurt others: No Plan service: No Current occupational status: employed Current occupation: [employer] Sexual orientation: Decline to Answer Cognitive needs: No Hearing needs: No Vision needs: Yes Physical Exam ED Vital Signs: Vital Signs - 24 hr 01/15/25 00:33 01/15/25 01:27 01/15/25 01:41 Temperature 97.2 F 98.0 F 98.0 F Pulse Rate 97 86 86 Respiratory Rate 18 17 17 Blood Pressure 106/64 103/65 103/65 Pulse Oximetry 96 96 96 Oxygen Delivery Method Room Air Room Air Room Air BMI result Body Mass Index 20.0 Appearance: Alert. Oriented X3. No acute distress. Eyes: no pallor or icterus ENT: Pharynx normal Oral Mucosa moist tympanic membrane intact no erythema, Neck: Normal inspection. Neck supple. CVS: Normal heart rate and rhythm. Pulses normal. Respiratory: No respiratory distress. Equal air entry bilateral, no wheezing/rales/rhonchi Abd: soft, not tender Skin: Skin warm and dry. Normal skin color. Normal skin turgor. Extremities: No lower extremity edema, no calf tenderness Neuro: Oriented X 3. Medical Decision Making Medical Decision Making MDM Narrative: Patient's neurogenic bladder status post Schafer catheter which was placed about 3 weeks ago been using off and on Schafer catheter for last several months does have straight cath at home patient does not want Schafer catheter to be in place as he is uncomfortable will remove the Schafer catheter per patient wishes patient's has straight cath at home which he will be using it Discharge Plan Discharge Clinical Impression: Neurogenic bladder Patient Disposition: Home, Self-Care Instructions: Neurogenic Bladder (ED) Additional Instructions: Your requested to remove your Schafer catheter which we have removed you do have straight cath at home which and you can use as needed for drainage of your bladder Follow up with urologist Prescriptions: No Action tamsulosin 0.4 mg capsule 0.4 mg PO QAM 90 Days Qty: 90 0RF atorvastatin 20 mg tablet 20 mg PO QPM 90 Days Qty: 90 3RF Interventions: ED Discharge Assessment Last Done: 01/15/25 01:41 Discharge Date/Time: 01/15/25 01:43 Print Language: Hebrew
[2025-01-15 01:27] VITALS: BP 103/65; PULSE 86; RESP 17; TEMP 36.7; O2SAT 96
--- OUTSIDE RECORDS SUMMARY | 2025-01-15 01:27 | XMS_ITS | Encounter Summary ---
Author Organization [facility] Address [address] [place] [address] Care Team Providers Care Medical Transcription Name Role Phone Patient, Has No Pcp Or Ref Primary Care Provider Unavailable Encounter Details Date Type Department Care Team (Late st Contact Info) Description 01/04/2024 Community Orders [facility] EpicCare Link [address] [place] [address] Bethany Lozano, STRAW HAT MACHINE OPERATOR [address] [place] [address] Social History Tobacco Use Types Packs/Day Years [...] on filedocumented in this encounter Care Teams Medical Transcription Relationship Specialty Start Date End Date Patient, Has No Pcp Or Ref DO NOT EDIT THIS RECORD VIA PROVIDER ON THE FLY PCP - General Farmer [employer] 12/30/23 documented as of this encounter
[2025-01-15 01:41] VITALS: BP 103/65; PULSE 86; RESP 17; TEMP 36.7; O2SAT 96
== END 2025-01-15 01:43 | disposition home or self-care (01) ==
PROVIDERS: Emergency Provider Internal Medicine; PCP Internal Medicine
DX: N31.9 Neuromuscular dysfunction of bladder, unspecified (principal); F17.210 Nicotine dependence, cigarettes, uncomplicated
CPT/HCPCS: 99284

== ENCOUNTER 2025-01-19 16:22 | Emergency (ER) | payer MEDICARE, MEDICAID, SELFPAY ==
--- NOTE | 2025-01-19 16:39 | ED_ITS ---
HPI - General Adult General Chief complaint: Medical Clearance Stated complaint: SI Related Data Previous Rx's ?Medication ?Instructions ?Recorded atorvastatin 20 mg tablet 20 mg PO QPM 90 days #90 tab s 01/10/25 tamsulosin 0.4 mg capsule 0.4 mg PO QAM 90 days #90 ca ps 01/10/25 Allergies Allergy/AdvReac Type Severity Reaction Status Date / Time No Known Allergies (NO KNOWN Allergy Unknown UNKNOWN Verified 01/19/25 16:44 ALLERGIES) [facility]LY [facility] Past Medical History Medical History Smoker GERD without esophagitis Tubular adenoma of colon (~2018) Personal history of nicotine dependence Constipation Back pain Schizoaffective disorder, bipolar type Anxiety Benign prostatic hyperplasia with lower urinary tract symptoms Pure hypercholesterolemia Thought disorder Bipolar 1 disorder Mood disorder Surgical History History of colonoscopy (~04/2019) History of prostate surgery (~04/2019) History of open reduction and internal fixation (ORIF) procedure (~08/2018) Family History Family History Father Lung cancer BPH (benign prostatic hyperplasia) Mother Dementia Brother Myocardial infarction Other Mental health problem Substance abuse Social History Social History Household Members: None Housing: Assisted Living Facility Housing Other:: alf Do you presently have visiting nurse or other home services: No Alcohol intake: never Patient Tobacco Use Status: Current everyday Tobacco user Tobacco use type: Cigarette Cigarette Packs Per Day: 0.5 Cigarettes Per Day: 5 Years Smoked: 10 e-Cigarette/Vaping Use: Never Used Second Hand Smoke Exposure: Yes Advance Directives: No Advance Directives Information Provided: Yes service: No Current occupational status: employed Current occupation: [employer] Sexual orientation: Decline to Answer Cognitive needs: No Hearing needs: No Vision needs: Yes Physical Exam ED Vital Signs: Vital Signs - 24 hr 01/19/25 16:42 Temperature 97.3 F Pulse Rate 98 Respiratory Rate 18 Blood Pressure 100/54 L Pulse Oximetry 98 Oxygen Delivery Method Room Air BMI result Body Mass Index 20.7 Course Course Course Narrative: Medical screening exam performed. Please refer to detailed history, exam, evaluation, and management by primary provider. Patient does not care for his living situation at a alf. He feels as though he is not getting enough food or cared for and just wants his labs checked. He has no physical complaints at this time. No SI. JS Medical Decision Making Lab Data 01/19/25 16:52 Labs: Lab Results 01/19/25 Range/Units 16:52 Sodium 140 (135-145) mmol/L Potassium 4.5 (3.3-5.1) mmol/L Chloride 108 (96-108) mmol/L Carbon Dioxide 24 (22-29) mmol/L Anion Gap 13 (12-20) BUN 4 L (9-16) mg/dL Creatinine 0.76 (0.5-1.4) mg/dL Estim Creat Clear Calc 94.0 Estimated GFR > 60 Random Glucose 92 (60-115) mg/dL Calcium 8.9 D (8.4-10.2) mg/dL Total Bilirubin 0.4 (0.0-1.0) mg/dL AST 31 (5-37) U/L ALT 31 (0-40) U/L Alkaline Phosphatase 62 (39-117) U/L Total Protein 6.6 (6.5-8.0) g/dL Albumin 4.1 (3.5-5.0) g/dL Discharge Plan Discharge Clinical Impression: Dietary indiscretion Patient Disposition: Left W/O Completing Treatment Prescriptions: No Action tamsulosin 0.4 mg capsule 0.4 mg PO QAM 90 Days Qty: 90 0RF atorvastatin 20 mg tablet 20 mg PO QPM 90 Days Qty: 90 3RF Discharge Date/Time: 01/19/25 19:43
[2025-01-19 16:42] VITALS: BP 100/54; PULSE 98; RESP 18; TEMP 36.3; O2SAT 98; BMI 20.7
--- OUTSIDE RECORDS SUMMARY | 2025-01-19 16:53 | XMS_ITS | Encounter Summary ---
Author Organization [facility] Address [address] [place] [address] Care Team Providers Care Stars Coordinator Name Role Phone Patient, Has No Pcp Or Ref Primary Care Provider Unavailable Encounter Details Date Type Department Care Team (Late st Contact Info) Description 01/04/2024 Community Orders [facility] EpicCare Link [address] [place] [address] Bethany Lozano, CLINICAL DATA ANALYST [address] [place] [address] Social History Tobacco Use Types Packs/Day Years [...] on filedocumented in this encounter Care Teams Stars Coordinator Relationship Specialty Start Date End Date Patient, Has No Pcp Or Ref DO NOT EDIT THIS RECORD VIA PROVIDER ON THE FLY PCP - General Experience Design Director 12/30/23 documented as of this encounter
[2025-01-19 17:15] LABS: Alanine Aminotransferase 31 U/L (0-40); Albumin Level 4.1 g/dL (3.5-5.0); Alkaline Phosphatase 62 U/L (39-117); Anion Gap 13 (12-20); Aspartate Amino Transferase 31 U/L (5-37); Blood Urea Nitrogen 4 mg/dL (9-16); Calcium 8.9 mg/dL (8.4-10.2); Carbon Dioxide 24 mmol/L (22-29); Chloride 108 mmol/L (96-108); Creatinine Clr Calc Pharmacy 94.0; Estimated Glomerular Filt Rate > 60; Potassium 4.5 mmol/L (3.3-5.1); Sodium 140 mmol/L (135-145); Total Protein 6.6 g/dL (6.5-8.0)
== END 2025-01-19 19:43 | disposition left against medical advice (07) ==
PROVIDERS: Physician Assistant; Emergency Provider Emergency Medicine; PCP Internal Medicine
DX: E63.1 Imbalance of constituents of food intake (principal)
CPT/HCPCS: 36415; 80053; 99281; 99283

== ENCOUNTER 2025-01-21 13:42 | Emergency (ER) | payer MEDICARE, MEDICAID, SELFPAY ==
[2025-01-21 14:17] VITALS: BP 126/70; PULSE 81; RESP 18; TEMP 36.6; O2SAT 98; BMI 20.7
--- NOTE | 2025-01-21 14:21 | ED.ABDPAIN ---
HPI - Abdominal Pain General Chief Complaint: Abdominal Pain Stated Complaint: Abd pain Related Data Previous Rx's ?Medication ?Instructions ?Recorded atorvastatin 20 mg tablet 20 mg PO QPM 90 days #90 tabs 01/10/25 tamsulosin 0.4 mg capsule 0.4 mg PO QAM 90 days #90 caps 01/10/25 polyethylene glycol 3350 17 17 g PO DAILY #119 grams 01/22/25 gram/dose oral powder (Miralax) Allergies Allergy/AdvReac Type Severity Reaction Status Date / Time No Known Allergies (NO KNOWN Allergy Unknown UNKNOWN Verified 01/21/25 23:52 ALLERGIES) [facility] Past Medical History Medical History Smoker GERD without esophagitis Tubular adenoma of colon (~2018) Personal history of nicotine dependence Constipation Back pain Schizoaffective disorder, bipolar type Anxiety Benign prostatic hyperplasia with lower urinary tract symptoms Pure hypercholesterolemia Thought disorder Bipolar 1 disorder Mood disorder Surgical History History of colonoscopy (~04/2019) History of prostate surgery (~04/2019) History of open reduction and internal fixation (ORIF) procedure (~08/2018) Family History Family History Father Lung cancer BPH (benign prostatic hyperplasia) Mother Dementia Brother Myocardial infarction Other Mental health problem Substance abuse Social History Social History Household Members: None Housing: Assisted Living Facility Housing Other:: skilled nursing Do you presently have visiting nurse or other home services: No Alcohol intake: never Patient Tobacco Use Status: Current everyday Tobacco user Tobacco use type: Cigarette Cigarette Packs Per Day: 0.5 Cigarettes Per Day: 5 Years Smoked: 10 Smoked in Last 30 Days: No e-Cigarette/Vaping Use: Never Used Second Hand Smoke Exposure: Yes Use of substances other than those prescribed or required for medical reasons: No Advance Directives: No Advance Directives Information Provided: Yes Do you have a plan to hurt others: No Plan service: No Current occupational status: employed Current occupation: [employer] Sexual orientation: Decline to Answer Cognitive needs: No Hearing needs: No Vision needs: Yes Physical Exam ED Vital Signs: Vital Signs - 24 hr 01/21/25 14:17 Temperature 98 F Pulse Rate 81 Respiratory Rate 18 Blood Pressure 126/70 Pulse Oximetry 98 BMI result Body Mass Index 20.7 Course Course Course Narrative: This is a Rapid Medical Examination (RME) performed by Addy Regalado PA-C in triage. Full HPI, ROS, assessment and treatment plan per primary provider in the Main ED. Hx: 59 yo M here for eval of abd pain x weeks. presented 2 days ago for similar however left before being seen. PE/vitals: well appearing Plan: labs, UA Reevaluation(s) Reevaluation #1: Patient left the emergency department before myself or any of the other clinicians could review or explain physical exam findings, test results, need or lack there of for additional testing, treatment options, or a treatment plan. Discharge Plan Discharge Clinical Impression: Abdominal pain Patient Disposition: Left W/O Completing Treatment Prescriptions: No Action polyethylene glycol 3350 [Miralax] 17 gram/dose powder 17 g PO DAILY Qty: 119 0RF tamsulosin 0.4 mg capsule 0.4 mg PO QAM 90 Days Qty: 90 0RF atorvastatin 20 mg tablet 20 mg PO QPM 90 Days Qty: 90 3RF Discharge Date/Time: 01/21/25 17:39
--- OUTSIDE RECORDS SUMMARY | 2025-01-21 17:55 | XMS_ITS | Clinical Summary ---
Author Organization [facility] Address [address] [place] [address] Phone Care Team Providers Care Tensile Tester Name Role Phone Dk Rodriguez MD Primary Care Provider [phone] Allergies No known active allergies Medications No known medications Encounters Date Type Department Care Team Description 01/14/2025 8:53 PM EDT - 01/15/2025 12:[address] [facility] [address] [place] [phone] Discharge Disposition: Home or Self Care 01/12/2025 8:45 PM EDT - 01/12/2025 11:[address] [facility] [address] [place] [phone] Dilcia Carl MD Discharge Disposition: Left Against Medical Advice 12/04/2024 11:34 PM EDT - 12/05/2024 1:[address] [facility] [address] [place] [phone] Discharge Disposition: Home or Self Care 12/02/2024 10:00 PM EDT - 12/03/2024 12:[address] [facility] [address] [place] [phone] Discharge Disposition: Home or Self Care 11/27/2024 10:17 PM EDT - 11/28/2024 8:[address] [facility] [address] [place] [phone] Discharge Disposition: Home or Self Care 11/26/2024 9:40 PM EDT - 11/27/2024 2:[address] [facility] [address] [place] [phone] Discharge Disposition: Home or Self Care 11/24/2024 11:19 PM EDT - 11/25/2024 1:[address] [facility] [address] [place] [phone] Discharge Disposition: Home or Self Care 11/23/2024 11:27 PM EDT - 11/24/2024 1:[address] [facility] [address] [place] [phone] Urinary retention (Primary Dx) Discharge Disposition: Home or Self Care 11/22/2024 10:08 PM EDT - 11/23/2024 2:[address] [facility] [address] [place] [phone] Discharge Disposition: Home or Self Care 11/18/2024 3:47 AM EDT - 11/18/2024 5:[address] [facility] [address] [place] [phone] Discharge Disposition: Home or Self Care 11/09/2024 12:37 AM EDT - 11/09/2024 4:[address] [facility] [address] [place] [phone] Discharge Disposition: Home or Self Care from Last 3 Months Medical History Medical History Date Comments Bipolar 1 disorder ([facility] V24, [facility] V28) Mood disorder ([facility] V24) Hyperactivity of bladder Social History Tobacco [...] Sign Reading Time Taken Comments Blood Pressure 104/68 01/14/2025 9:03 PM EDT Pulse 89 01/12/2025 8:51 PM EDT Temperature 36.9 C (98.4 F) 01/14/2025 9:03 PM EDT Respiratory Rate 18 01/14/2025 9:03 PM EDT Oxygen Saturation 97% 01/14/2025 9:03 PM EDT Inhaled Oxygen Concentration - - Weight 63.5 kg (140 lb) 01/14/2025 9:03 PM EDT Height 175.3 cm (5' 9 ) 01/14/2025 9:03 PM EDT Body Mass Index 20.67 01/14/2025 9:03 PM EDT Plan of Treatment Health Maintenance [...] LAB HEMETOLOGY METHOD 12/05/2024 12:52 AM EDT [facility] RBC 4.00(L) 4.50 - 5.50 M/mcL LAB HEMETOLOGY METHOD 12/05/2024 12:52 AM EDT [facility] Hemoglobin 12.7(L) 13.5 - 17.5 g/dL LAB HEMETOLOGY METHOD 12/05/2024 12:52 AM [facility] Hematocrit 37.3(L) 42.0 - 54.0 % LAB HEMETOLOGY METHOD 12/05/2024 12:52 AM [facility] MCV 93.7 79.0 - 98.0 FL LAB HEMETOLOGY METHOD 12/05/2024 12:52 AM [facility] MCH 31.9 27.0 - 32.0 pcg LAB HEMETOLOGY METHOD 12/05/2024 12:52 AM [facility] MCHC 34.0 32.0 - 37.0 g/dL LAB HEMETOLOGY METHOD 12/05/2024 12:52 AM [facility] RDW 13.2 11.0 - 15.0 % LAB HEMETOLOGY METHOD 12/05/2024 12:52 AM [facility] Platelets 207 130 - 400 K/mcL LAB HEMETOLOGY METHOD 12/05/2024 12:52 AM [facility] MPV 9.4 7.0 - 11.0 FL LAB HEMETOLOGY METHOD 12/05/2024 12:52 AM [facility] NRBC 0.0 <1.0 % LAB HEMETOLOGY METHOD 12/05/2024 12:52 AM [facility] NRBC Absolute 0.00 <0.10 K/mcL LAB HEMETOLOGY METHOD 12/05/2024 12:52 AM [facility] Neutrophils Relative 56.8 % LAB HEMETOLOGY METHOD 12/05/2024 12:52 AM [facility] Lymphocytes Relative 27.7 % LAB HEMETOLOGY METHOD 12/05/2024 12:52 AM [facility] Monocytes Relative 11.1 % LAB HEMETOLOGY METHOD 12/05[facility]24 12:[facility] Eosinophils Relative 3.3 % LAB HEMETOLOGY METHOD 12/05/2024 12:52 [facility] Basophils Relative 0.8 % LAB HEMETOLOGY METHOD 12/05/2024 12:52 AM [facility] Immature Granulocytes Relative 0.3 % LAB HEMETOLOGY METHOD 12/05/2024 12:52 AM EDT [facility] Neutrophils Absolute 4.19 1.50 - 7.00 K/mcL LAB HEMETOLOGY METHOD 12/05/2024 12:52 AM [facility] Lymphocytes Absolute 2.04 1.00 - 5.00 K/mcL LAB HEMETOLOGY METHOD 12/05/2024 12:52 AM [facility] Monocytes Absolute 0.82 0.20 - 1.00 K/mcL LAB HEMETOLOGY METHOD 12/05/2024 12:52 [facility] Eosinophils Absolute 0.24 0.00 - 0.50 K/mcL LAB HEMETOLOGY METHOD 12/05/2024 12:52 AM [facility] Basophils Absolute 0.06 0.00 - 0.20 K/mcL LAB HEMETOLOGY METHOD 12/05/2024 12:52 AM [facility] Immature Granulocytes Absolute 0.02 0.00 - 0.03 K/mcL LAB HEMETOLOGY METHOD 12/05/2024 12:52 AM T [facility] Blood Venous blood specimen / Unknown Venipuncture / Unknown 12/05/2024 12:00 AM EDT 12/05/2024 12:45 AM EDT us Dalila Alberto MD LAB BLOOD ORDERABLES Fin al Result [facility] [address] [place] [address], * (ABNORMAL) Comprehensive metabolic panel (12/05/2024 12:00 AM EDT) Sodium 139 133 - 145 mmol/L LAB CHEMISTRY METHOD 12/05/2024 1:25 AM [facility] Potassium 3.6 3.5 - 5.5 mmol/L LAB CHEMISTRY METHOD 12/05/2024 1:25 AM [facility] Chloride 108 96 - 110 mmol/L LAB CHEMISTRY METHOD 12/05/2024 1:25 AM [facility] CO2 26 21 - 32 mmol/L LAB CHEMISTRY METHOD 12/05/2024 1:25 AM [facility] Anion Gap 5 3 - 11 LAB CHEMISTRY METHOD 12/05/2024 1:25 AM [facility] Glucose 80 70 - 100 mg/dL LAB CHEMISTRY METHOD 12/05/2024 1:25 AM [facility] BUN 8 5 - 25 mg/dL LAB CHEMISTRY METHOD 12/05/2024 1:25 AM [facility] Creatinine 0.69(L) 0.70 - 1.30 mg/dL LAB CHEMISTRY METHOD 12/05/2024 1:25 AM [facility] eGFR 107 >=60 mL/min/1. 73m2 LAB CHEMISTRY METHOD 12/05/2024 1:25 AM [facility] Comment:Calculation based on the Chronic Kidney Disease Epidemiology Collaboration (CKD-EPI) equation refit without adjustment for race. BUN/Creatinine Ratio 11.6 LAB CHEMISTRY METHOD 12/05/2024 1:25 AM [facility] Calcium 8.6 8.5 - 10.5 mg/dL LAB CHEMISTRY METHOD 12/05/2024 1:25 AM [facility] AST (SGOT) 13 10 - 42 unit/L LAB CHEMISTRY METHOD 12/05/2024 1:25 AM [facility] ALT (SGPT) 16 10 - 60 unit/L LAB CHEMISTRY METHOD 12/05/2024 1:25 AM EDT [facility] Alkaline Phosphatase 67 42 - 121 unit/L LAB CHEMISTRY METHOD 12/05/2024 1:25 AM [facility] Total Protein 6.3 6.0 - 8.0 g/dL LAB CHEMISTRY METHOD 12/05/2024 1:25 AM [facility] Albumin 3.3 3.2 - 5.0 g/dL LAB CHEMISTRY METHOD 12/05/2024 1:25 AM [facility] Total Bilirubin 0.4 0.0 - 1.4 mg/dL LAB CHEMISTRY METHOD 12/05/2024 1:25 AM [facility] Blood Venous blood specimen / Unknown Venipuncture / Unknown 12/05/2024 12:00 AM EDT 12/05/2024 12:45 AM EDT Dalila Alberto MD LAB BLOOD ORDERABLES Fin al Result [facility] [address] [place] [address], * (ABNORMAL) Urinalysis with reflex microscopic and culture (11/23/2024 11:28 PM EDT) Specific [place] Urine 1.007 1.003 - 1.030 LAB URINALYSIS - AUTOMATED METHOD 11/24/2024 12:11 AM [facility] pH, Urine 6.5 5.0 - 8.0 pH LAB URINALYSIS - AUTOMATED METHOD 11/24/2024 12:11 AM [facility] Leukocytes, Urine Moderate(A) Negative LAB URINALYSIS - AUTOMATED METHOD 11/24/2024 12:11 AM [facility] Nitrite, Urine Negative Negative LAB URINALYSIS - AUTOMATED METHOD 11/24/2024 12:11 AM [facility] Protein, Urine Negative <=Trace mg/dL LAB URINALYSIS - AUTOMATED METHOD 11/24/2024 12:11 AM [facility] Glucose, Urine Negative Negative mg/dL LAB URINALYSIS - AUTOMATED METHOD 11/24/2024 12:11 AM [facility] Ketones, Urine Negative Negative mg/dL LAB URINALYSIS - AUTOMATED METHOD 11/24/2024 12:11 AM [facility] Urobilinogen , Urine 0.2 0.2 - 1.0 mg/dL LAB URINALYSIS - AUTOMATED METHOD 11/24/2024 12:11 AM [facility] Bilirubin, Urine Negative Negative LAB URINALYSIS - AUTOMATED METHOD 11/24/2024 12:11 AM [facility] Blood, Urine Negative Negative LAB URINALYSIS - AUTOMATED METHOD 11/24/2024 12:11 AM [facility] RBC, Urine 1.3 0 - 4 /HPF LAB URINALYSIS - AUTOMATED METHOD 11/24/2024 12:11 AM [facility] WBC, Urine 8.1(H) 0 - 4 /HPF LAB URINALYSIS - AUTOMATED METHOD 11/24/2024 12:11 AM [facility] Squamous Epithelial, Urine 14 0 - 60 /LPF LAB URINALYSIS - AUTOMATED METHOD 11/24/2024 12:11 AM [facility] Bacteria, Urine Negative Negative /HPF LAB URINALYSIS - AUTOMATED METHOD 11/24/2024 12:11 AM [facility] Hyaline Casts, Urine 0.4 0 - 3 /LPF LAB URINALYSIS - AUTOMATED METHOD 11/24/2024 12:11 AM [facility] Urine Urine specimen obtained by clean catch procedure / Unknown Non-blood Collection / Unknown 11/23/2024 11:28 PM EDT 11/24/2024 12:03 AM EDT Ming Love MD LAB URINE ORDERABLES Final Res ult Performing Organization Address City/[facility]/ZIP Co de Phone Number [facility] [address] [place] [address], [place] [phone] * [place] urine culture tube (11/23/2024 11:28 PM EDT) Extra Tube Hold for add-ons. 11/25/2024 1:01 AM EDT [facility] Comment:Auto resulted. Urine Urine specimen obtained by clean catch procedure / Unknown Non-blood Collection / Unknown 11/23/2024 11:28 PM EDT 11/24/2024 12:03 AM EDT Ming Love MD LAB URINE ORDERABLES Final Res ult Performing Organization Address [facility]/ZIP Co de Phone Number [facility] [address] [place] [address], [place] [phone] * Culture urine (11/23/2024 11:28 PM EDT) Culture, Urine <10,000 CFU/mL gram positive cocci, insignificant count, no further workup 11/25/2024 10:10 AM EDT [facility] Urine Urine specimen obtained by clean catch procedure / Unknown Non-blood Collection / Unknown 11/23/2024 11:28 PM EDT 11/24/2024 12:11 AM EDT Ming Love MD LAB MICROBIOLOGY - GENERAL ORD ERABLES Final Result Performing Organization Address City/[facility]/ZIP Co de Phone Number [facility] [address] [place] [address], [place] [phone] from Last 3 Months Insurance [id number] [address] MEDICARE MEDICAID - [place] Care Teams Tensile Tester Relationship Specialty Start Date End Date Dk Rodriguez MD [address] [place] [address] [address] [place], [place] PCP - General Internal Medicine 07/16/24
--- OUTSIDE RECORDS SUMMARY | 2025-01-21 17:55 | XMS_ITS | Encounter Summary ---
Author Organization [facility] Address [address] [place] [address] Care Team Providers Care Pediatric Physician Assistant Name Role Phone Patient, Has No Pcp Or Ref Primary Care Provider Unavailable Encounter Details Date Type Department Care Team (Late st Contact Info) Description 01/04/2024 Community Orders [facility] EpicCare Link [address] [place] [address] Bethany Lozano, CNC LASER OPERATOR [address] [place] [address] Social History Tobacco Use Types Packs/Day Years [...] on filedocumented in this encounter Care Teams Pediatric Physician Assistant Relationship Specialty Start Date End Date Patient, Has No Pcp Or Ref DO NOT EDIT THIS RECORD VIA PROVIDER ON THE FLY PCP - General Senior Vice President 12/30/23 documented as of this encounter
== END 2025-01-21 17:39 | disposition left against medical advice (07) ==
PROVIDERS: Emergency Provider Emergency Medicine; PCP Internal Medicine
DX: R10.9 Unspecified abdominal pain (principal); F17.210 Nicotine dependence, cigarettes, uncomplicated
CPT/HCPCS: 36415; 51798; 80053; 81001; 83690; 85025; 99281; 99282; 99283

== ENCOUNTER 2025-01-21 23:39 | Emergency (ER) | payer MEDICARE, MEDICAID, SELFPAY ==
[2025-01-21 23:46] VITALS: BP 95/67; PULSE 79; RESP 18; TEMP 36.4; O2SAT 96; BMI 20.7
[2025-01-22 00:37] VITALS: BP 98/60; PULSE 67; RESP 23; TEMP 36.6; O2SAT 99
[2025-01-22 00:53] LABS: MANUAL DIFF FLAG NO
[2025-01-22 00:54] LABS: Hematocrit 38.0 % (42.0-52.0); Hemoglobin 13.0 g/dl (14.0-18.0); Imm Gran Abs Auto 0.03 X10*3/uL (0.00-0.03); Imm Gran Pct Auto 0.3 % (0.0-0.4); Lymphocytes Absolute Auto 2.0 X10*3/uL (1.2-4.9); Mean Corpuscular HGB Conc 34.2 g/dl (31.0-36.0); Mean Corpuscular Hemoglobin 32.2 pg (27.0-33.0); Mean Corpuscular Volume 94.1 fL (80.0-98.0); NRBC Abs Auto 0.000 X10*3/uL (0.0-0.012); NRBC Pct Auto 0.0 /100WBC (0.0-0.2); Platelet Count 175 X10*3/uL (160-400); Red Blood Count 4.04 X10*6/uL (4.60-5.80); White Blood Count 9.0 X10*3/uL (4.8-10.8)
[2025-01-22 01:09] LABS: Alanine Aminotransferase 25 U/L (0-40); Albumin Level 4.0 g/dL (3.5-5.0); Alkaline Phosphatase 58 U/L (39-117); Anion Gap 13 (12-20); Aspartate Amino Transferase 26 U/L (5-37); Blood Urea Nitrogen 14 mg/dL (9-16); Calcium 9.2 mg/dL (8.4-10.2); Carbon Dioxide 25 mmol/L (22-29); Chloride 105 mmol/L (96-108); Creatinine Clr Calc Pharmacy 89.2; Estimated Glomerular Filt Rate > 60; Lipase 27 U/L (8-78); Potassium 4.4 mmol/L (3.3-5.1); Sodium 139 mmol/L (135-145); Total Protein 6.6 g/dL (6.5-8.0)
[2025-01-22 01:18] VITALS: BP 117/75
--- NOTE | 2025-01-22 02:00 | PC.NURSE ---
pt urine out put 500cc
[2025-01-22 03:27] LABS: Appearance Urine Clear; Glucose Urine UA Negative (Negative); PH 7.0 (5.0-9.0); Specific Gravity - Urine <= 1.005 (1.005-1.025)
[2025-01-22 04:00] VITALS: BP 106/71; PULSE 64; RESP 18; TEMP 36.5; O2SAT 96
--- NOTE | 2025-01-22 04:01 | ED_ITS ---
HPI - Abdominal Pain General Chief Complaint: Abdominal Pain Stated Complaint: lower abd pain Time Seen by Provider: 01/22/25 03:58 Source: patient Mode of arrival: ambulatory Limitations: no limitations History of Present Illness ED Provider: Dr. Dalila Alberto HPI narrative: 59-year-old male with a history of neurogenic bladder, schizoaffective bipolar disorder presenting with suprapubic abdominal pain that has been an ongoing issue he says for a ?long time?. Admits he has been ?going to [facility] in [facility] but no one wants to help him?. Has been walking around all day looking for help. He denies dysuria or hematuria. Self catheterizes and has been having no issues with that. No testicular pain or swelling. Denies fevers, nausea, vomiting or diarrhea. In fact, he has issues with constipation but does not take anything to help with it. Lives in a halfway and feels that his ?food isn't good?. Denies chest pain, difficulty breathing, cough or cold-type symptoms. Related Data Previous Rx's ?Medication ?Instructions ?Recorded atorvastatin 20 mg tablet 20 mg PO QPM 90 days #90 tab s 01/10/25 tamsulosin 0.4 mg capsule 0.4 mg PO QAM 90 days #90 ca ps 01/10/25 polyethylene glycol 3350 17 17 g PO DAILY #119 grams 0 01/22/25 gram/dose oral powder (Miralax) Allergies Allergy/AdvReac Type Severity Reaction Status Date / Time No Known Allergies (NO KNOWN Allergy Unknown UNKNOWN Verified 01/21/25 23:52 ALLERGIES) Review of Systems Review of Systems as per HPI, full review of systems performed and negative but for the above mentioned pertinent positives and negatives. FORMERLY [facility] Past Medical History Medical History Smoker GERD without esophagitis Tubular adenoma of colon (~2018) Personal history of nicotine dependence Constipation Back pain Schizoaffective disorder, bipolar type Anxiety Benign prostatic hyperplasia with lower urinary tract symptoms Pure hypercholesterolemia Thought disorder Bipolar 1 disorder Mood disorder Surgical History History of colonoscopy (~04/2019) History of prostate surgery (~04/2019) History of open reduction and internal fixation (ORIF) procedure (~08/2018) Family History Family History Father Lung cancer BPH (benign prostatic hyperplasia) Mother Dementia Brother Myocardial infarction Other Mental health problem Substance abuse Social History Social History Household Members: None Housing: Assisted Living Facility Housing Other:: halfway Do you presently have visiting nurse or other home services: No Alcohol intake: never Patient Tobacco Use Status: Current everyday Tobacco user Tobacco use type: Cigarette Cigarette Packs Per Day: 0.5 Cigarettes Per Day: 5 Years Smoked: 10 Smoked in Last 30 Days: No e-Cigarette/Vaping Use: Never Used Second Hand Smoke Exposure: Yes Use of substances other than those prescribed or required for medical reasons: No Advance Directives: No Advance Directives Information Provided: Yes Do you have a plan to hurt others: No Plan service: No Current occupational status: employed Current occupation: [employer] Sexual orientation: Decline to Answer Cognitive needs: No Hearing needs: No Vision needs: Yes Physical Exam ED Exam Exam: GENERAL: Well-Appearing, conversant, no acute distress. SKIN: Normal skin color for ethnicity, warm, dry, no rashes noted. HEENT: Normocephalic, atraumatic, no stridor, posterior oropharynx nonerythematous, dentition intact, EOMI. NECK: Soft, supple, full ROM, midline structures nontender, no step-offs, no deformities, no lymphadenopathy. CHEST: Heart regular rate and rhythm, no murmurs, symmetric chest rise and fall. PULMONARY: Clear to auscultation bilaterally, no labored breathing, no wheezes/rhales/rhonchi. ABDOMINAL: Soft, palpable bladder, tender to palpation, quiet bowel sounds in all quadrants. : Deferred. MUSCULOSKELETAL: Normal tone, full range of motion, no deformities, no peripheral edema. NEURO: Alert and oriented x3, CN II through XII intact, equal strength and sensation bilateral upper and lower extremities, no focal neurologic deficits. PSYCHIATRIC: Normal affect, fluid speech, good eye contact and appropriate demeanor. Vital Signs: Vital Signs - 24 hr 01/21/25 23:46 01/22/25 00:37 01/22/25 01:18 Temperature 97.6 F 97.8 F Pulse Rate 79 67 Respiratory Rate 18 23 H Blood Pressure 95/67 98/60 117/75 Pulse Oximetry 96 99 Oxygen Delivery Method Room Air Room Air 01/22/25 04:00 Temperature 97.7 F Pulse Rate 64 Respiratory Rate 18 Blood Pressure 106/71 Pulse Oximetry 96 Oxygen Delivery Method Room Air BMI result Body Mass Index 20.7 Medical Decision Making Medical Decision Making [facility] Narrative: 59-year-old male with a history of neurogenic bladder presenting with suprapubic tenderness. Differential diagnosis includes UTI, ureteral blockage, kidney stone, constipation, bowel obstruction, among others. Patient has been bouncing around from ER to ER over the last 24 hours according to him. His blood work here is reassuring. He was voiding over a L from his bladder was straight cath today. Some of this may be due to his not wanting to be at the halfway he is currently living at. He does describe some constipation so I have given him a prescription for MiraLax. Plan to discharge home with outpatient follow-up. Discharged in stable condition to go to the day program per patient request. Differential Diagnosis Differential Diagnoses: The differential diagnosis associated with the presentation includes (As above) Admission/Observation Consideration of admission/observation: Escalation of care including admission/observation considered Lab Data [facility] Lab Attestation statement: I reviewed the patient's lab results. 01/22/25 00:47 01/22/25 00:47 Labs: Lab Results 01/22/25 01/22/25 Range/Units 00:47 03:18 WBC 9.0 (4.8-10.8) X10*3/uL RBC 4.04 L (4.60-5.80) X10*6/uL Hgb 13.0 L (14.0-18.0) g/dl Hct 38.0 L (42.0-52.0) % MCV 94.1 (80.0-98.0) fL MCH 32.2 (27.0-33.0) pg MCHC 34.2 (31.0-36.0) g/dl RDW 14.2 (11.0-16.0) % Plt Count 175 (160-400) X10*3/uL MPV 10.0 (9.4-12.4) fL Immature Gran % (Auto) 0.3 (0.0-0.4) % Neut % (Auto) 65.9 (45-73) % Lymph % (Auto) 21.9 (20-40) % [place] % (Auto) 8.1 (2-11) % Eos % (Auto) 2.7 (0-4) % Baso % (Auto) 1.1 (0-2) % Lymph # (Auto) 2.0 (1.2-4.9) X10*3/uL [place] # (Auto) 0.7 (0.1-1.2) X10*3/uL Eos # (Auto) 0.2 (0.0-0.4) X10*3/uL Baso # (Auto) 0.1 (0.0-0.2) X10*3/uL Abs Immat Gran (auto) 0.03 (0.00-0.03) X10*3/uL Absolute Neuts (auto) 5.9 (2.0-8.3) x10*3/uL Absolute Nucleated RBC 0.000 (0.0-0.012) X10*3/uL Nucleated RBC % (auto) 0.0 (0.0-0.2) /100WBC Sodium 139 (135-145) mmol/L Potassium 4.4 (3.3-5.1) mmol/L Chloride 105 (96-108) mmol/L Carbon Dioxide 25 (22-29) mmol/L Anion Gap 13 (12-20) BUN 14 (9-16) mg/dL Creatinine 0.80 (0.5-1.4) mg/dL Estim Creat Clear Calc 89.2 Estimated GFR > 60 Random Glucose 111 (60-115) mg/dL Calcium 9.2 (8.4-10.2) mg/dL Total Bilirubin 0.3 (0.0-1.0) mg/dL AST 26 (5-37) U/L ALT 25 (0-40) U/L Alkaline Phosphatase 58 (39-117) U/L Total Protein 6.6 (6.5-8.0) g/dL Albumin 4.0 (3.5-5.0) g/dL Lipase 27 (8-78) U/L Urine Color Yellow Urine Appearance Clear Urine pH 7.0 (5.0-9.0) Ur Specific [place] <= 1.005 (1.005-1.025) Urine Protein Negative (Neg-Trace) mg/dL Urine Glucose (UA) Negative (Negative) mg/dL Urine Ketones Negative (Negative) mg/dL Urine Blood Negative (Negative) Urine Nitrite Negative (Negative) Ur Leukocyte Esterase Negative (Negative) Urine RBC 0-2 (0-2) /HPF Urine WBC 0-5 (0-5) /HPF Ur Squamous Epith Cells 0-2 (0-2) /HPF Urine Bacteria None Seen (None Seen) Hyaline Casts 0-2 (0-2) /LPF External Record Review External record reviewed: Inpatient record Prescription Management I considered prescription management with: Other (Laxatives) Chronic Conditions Patient?s care impacted by: Other (Neurogenic bladder, schizoaffective disorder) Social Determinants Patient?s care significantly limited by Social Determinants of Health including: Problems related to primary support group and Other Social Determinant of Health Discharge Plan Discharge Clinical Impression: Neurogenic bladder, Chronic suprapubic pain Patient Disposition: Home, Self-Care Instructions: Pelvic Pain in Men (ED) Additional Instructions: Use MiraLax daily for constipation. Return to the ER if with any new or worsening symptoms. Prescriptions: New polyethylene glycol 3350 [Miralax] 17 gram/dose powder 17 g PO DAILY Qty: 119 0RF No Action tamsulosin 0.4 mg capsule 0.4 mg PO QAM 90 Days Qty: 90 0RF atorvastatin 20 mg tablet 20 mg PO QPM 90 Days Qty: 90 3RF Print Language: Greek
--- NOTE | 2025-01-22 04:46 | PC.NURSE ---
Pt a&o, no sob or chest pain, reviewed discharge instructions with pt, pt verbalized understanding, no sign of distress, pt had a steady gait upon discharge.
[2025-01-22 04:47] VITALS: BP 106/71; PULSE 64; RESP 18; TEMP 36.5; O2SAT 96
== END 2025-01-22 04:47 | disposition home or self-care (01) ==
PROVIDERS: Emergency Provider Emergency Medicine; PCP Internal Medicine
DX: N31.9 Neuromuscular dysfunction of bladder, unspecified (principal); R10.2 Pelvic and perineal pain; R10.812 Left upper quadrant abdominal tenderness; F17.210 Nicotine dependence, cigarettes, uncomplicated; Z79.899 Other long term (current) drug therapy
CPT/HCPCS: 36415; 51798; 80053; 81001; 83690; 85025; 99283; 99285

== ENCOUNTER 2025-01-23 12:34 | Emergency (ER) | payer MEDICARE, MEDICAID, SELFPAY ==
[2025-01-23 12:35] VITALS: BP 131/80; PULSE 97; RESP 18; TEMP 36.5; O2SAT 96; BMI 21.1
--- NOTE | 2025-01-23 12:37 | ED_ITS ---
HPI - General Adult General Chief complaint: General Medical Stated complaint: pain Time Seen by Provider: 01/23/25 13:18 Source: patient Mode of arrival: ambulatory Limitations: no limitations History of Present Illness ED Provider: HPI narrative: 59-year-old male with a history of neurogenic bladder, multiple ER visits with complaints and concerns centering around his bladder function, he states he went to see his primary care about a week ago and I have asked if patient has address this with his primary care and he told me he did not want to , he has had Santos catheters placed and removed multiple times. He states he has a resident at a detention and does have mental health issues. She also states the discomfort around the bladder radiates up into his chest wall area. Related Data Previous Rx's ?Medication ?Instructions ?Recorded atorvastatin 20 mg tablet 20 mg PO QPM 90 days #90 tab s 01/10/25 tamsulosin 0.4 mg capsule 0.4 mg PO QAM 90 days #90 ca ps 01/10/25 polyethylene glycol 3350 17 17 g PO DAILY #119 grams 0 01/22/25 gram/dose oral powder (Miralax) Allergies Allergy/AdvReac Type Severity Reaction Status Date / Time No Known Allergies (NO KNOWN Allergy Unknown UNKNOWN Verified 01/23/25 12:35 ALLERGIES) Review of Systems 2 Constitutional: Constitutional: Reports as per [facility] Past Medical History Medical History Smoker GERD without esophagitis Tubular adenoma of colon (~2018) Personal history of nicotine dependence Constipation Back pain Schizoaffective disorder, bipolar type Anxiety Benign prostatic hyperplasia with lower urinary tract symptoms Pure hypercholesterolemia Thought disorder Bipolar 1 disorder Mood disorder Surgical History History of colonoscopy (~04/2019) History of prostate surgery (~04/2019) History of open reduction and internal fixation (ORIF) procedure (~08/2018) Family History Family History Father Lung cancer BPH (benign prostatic hyperplasia) Mother Dementia Brother Myocardial infarction Other Mental health problem Substance abuse Social History Social History Household Members: None Housing: Assisted Living Facility Housing Other:: detention Do you presently have visiting nurse or other home services: No Alcohol intake: never Patient Tobacco Use Status: Current everyday Tobacco user Tobacco use type: Cigarette Cigarette Packs Per Day: 0.5 Cigarettes Per Day: 5 Years Smoked: 10 e-Cigarette/Vaping Use: Never Used Second Hand Smoke Exposure: Yes service: No Current occupational status: employed Current occupation: [employer] Sexual orientation: Decline to Answer Cognitive needs: No Hearing needs: No Vision needs: Yes Physical Exam ED Vital Signs: Vital Signs - 24 hr 01/23/25 12:35 Temperature 97.7 F Pulse Rate 97 Respiratory Rate 18 Blood Pressure 131/80 Pulse Oximetry 96 Oxygen Delivery Method Room Air BMI result Body Mass Index 21.1 Course Course Course Narrative: This is a rapid medical exam performed by Walter Crawford NP: Additional HPI, ROS, PE not included below will be deferred to primary provider. Patient is a 59-year-old male with history of BPH, neurogenic bladder, anxiety, schizoaffective disorder, bipolar type presenting with complaint of heart racing and bladder pain. Here on 01/05, 9, 11, 13, 17, 19, 20, and today. Plan: EKG, labs, UA Medical Decision Making Medical Decision Making MDM Narrative: I have discussed with the patient as workup, discussed with him that I would like him to follow up with his PCP and make sure that he has not appointment with the urologist he continues to take Flomax as well as his psychiatric medications, he is however quite a bit agitated regarding knowing his blood work and as soon as I told him regarding his blood work he got up from the stretcher and left however I was able to provide him a discharge instructions, his cardiac workup has been unremarkable, he had nonspecific complaints Differential Diagnosis Differential Diagnoses: The differential diagnosis associated with the presentation includes (SBO, ACS, HOMA, urinary retention) Admission/Observation Consideration of admission/observation: Escalation of care including admission/observation considered 2022 Emergency Medicine Coding Guide from [email or web address] on 01/23/2025 All calculations should be rechecked by clinician prior to use RESULT SUMMARY: 4 Estimated Level of Service Problems: Moderate (4) Risk: Moderate (4) Data: Extensive (5) NARRATIVE MDM: This patient's problem complexity is Moderate as patient: with chronic illness(es) with exacerbation/progression/side effects of treatment. This patient's risk is Moderate due to: overall presentation requiring evaluation for a potentially Moderate-risk process. This patient's data complexity is Extensive due to: -multiple tests ordered -independent interpretation of imaging or EKG INPUTS: Number and Complexity ?> 3 = 4: chronic illness with exacerbation (c) Risk level ?> 3 = Moderate Tests ordered ?> 3 = >= Tests results reviewed (excluding labs) ?> 1 = 1 Prior external notes reviewed ?> 0 = 0 Assessment requiring and independent historian ?> 0 = No Independent interpretation of tests ?> 1 = Yes Discussed management/test interpretation w/external professional ?> 0 = No Lab Data MDM Lab Attestation statement: I reviewed the patient's lab results. 01/23/25 12:51 01/23/25 12:51 Labs: Lab Results 01/23/25 01/23/25 Range/Units 12:51 12:54 WBC 7.0 (4.8-10.8) X10*3/uL RBC 4.12 L (4.60-5.80) X10*6/uL Hgb 12.9 L (14.0-18.0) g/dl Hct 39.0 L (42.0-52.0) % MCV 94.7 (80.0-98.0) fL MCH 31.3 (27.0-33.0) pg MCHC 33.1 (31.0-36.0) g/dl RDW 14.3 (11.0-16.0) % Plt Count 177 (160-400) X10*3/uL MPV 10.0 (9.4-12.4) fL Immature Gran % (Auto) 0.6 H (0.0-0.4) % Neut % (Auto) 63.4 (45-73) % Lymph % (Auto) 25.5 (20-40) % [place] % (Auto) 7.3 (2-11) % Eos % (Auto) 2.2 (0-4) % Baso % (Auto) 1.0 (0-2) % Lymph # (Auto) 1.8 (1.2-4.9) X10*3/uL [place] # (Auto) 0.5 (0.1-1.2) X10*3/uL Eos # (Auto) 0.2 (0.0-0.4) X10*3/uL Baso # (Auto) 0.1 (0.0-0.2) X10*3/uL Abs Immat Gran (auto) 0.04 H (0.00-0.03) X10*3/uL Absolute Neuts (auto) 4.4 (2.0-8.3) x10*3/uL Absolute Nucleated RBC 0.000 (0.0-0.012) X10*3/uL Nucleated RBC % (auto) 0.0 (0.0-0.2) /100WBC Sodium 140 (135-145) mmol/L Potassium 4.6 (3.3-5.1) mmol/L Chloride 107 (96-108) mmol/L Carbon Dioxide 26 (22-29) mmol/L Anion Gap 12 (12-20) BUN 11 (9-16) mg/dL Creatinine 0.71 (0.5-1.4) mg/dL Estim Creat Clear Calc 102.6 Estimated GFR > 60 Random Glucose 117 H (60-115) mg/dL Calcium 8.8 (8.4-10.2) mg/dL Total Bilirubin 0.2 (0.0-1.0) mg/dL AST 28 (5-37) U/L ALT 23 (0-40) U/L Alkaline Phosphatase 56 (39-117) U/L Troponin I High Sens < 2.7 (<3.5-35.0) ng/L Total Protein 6.4 L (6.5-8.0) g/dL Albumin 3.9 (3.5-5.0) g/dL TSH 0.26 L (0.32-4.0) uIU/mL Urine Color Yellow Urine Appearance Clear Urine pH 6.5 (5.0-9.0) Ur Specific [place] <= 1.005 (1.005-1.025) Urine Protein Negative (Neg-Trace) mg/dL Urine Glucose (UA) Negative (Negative) mg/dL Urine Ketones Negative (Negative) mg/dL Urine Blood Negative (Negative) Urine Nitrite Negative (Negative) Ur Leukocyte Esterase Trace H (Negative) Urine RBC 0-2 (0-2) /HPF Urine WBC 0-5 (0-5) /HPF Ur Squamous Epith Cells 0-2 (0-2) /HPF Urine Bacteria None Seen (None Seen) Hyaline Casts 0-2 (0-2) /LPF Independent Interpretation I performed an independent interpretation of an: EKG (86 beats per minute otherwise normal ECG without dysrhythmia, AV wendy blocks or ST-T changes to suspect underlying ACS, my independent interpretation, occasional PVCs) Prescription Management I considered prescription management with: Antibiotic Chronic Conditions Patient?s care impacted by: Other (Schizoaffective disorder) Discharge Plan Discharge Clinical Impression: Neurogenic bladder, Schizoaffective disorder, bipolar type, Anxiety, Adult general medical examination Patient Disposition: Home, Self-Care Instructions: Neurogenic Bladder (ED) Additional Instructions: You have had 9 visits to emergency department with the same problem in the past month and a half, please see your primary care provider, and then follow up with the urologist, you may need a Santos catheter or suprapubic catheter if this continues you may need medication adjustments Prescriptions: No Action polyethylene glycol 3350 [Miralax] 17 gram/dose powder 17 g PO DAILY Qty: 119 0RF tamsulosin 0.4 mg capsule 0.4 mg PO QAM 90 Days Qty: 90 0RF atorvastatin 20 mg tablet 20 mg PO QPM 90 Days Qty: 90 3RF Print Language: Gibraltarian
--- NOTE | 2025-01-23 12:39 | ECG_ITS ---
Test Reason : palpatations Blood Pressure : */* mmHG Vent. Rate : 86 BPM Atrial Rate : 86 BPM P-R Int : 136 ms QRS Dur : 84 ms QT Int : 356 ms P-R-T Axes : 73 -1 38 degrees QTcB Int : 426 ms Sinus rhythm with occasional Premature ventricular complexes Possible Left atrial enlargement Borderline ECG When compared with ECG of 05-Jan-2025 20:55, Premature ventricular complexes are now Present Referred By: Cyndi Crawford Electronically Signed By: RACHEAL VILLAFANA MD
[2025-01-23 12:55] LABS: MANUAL DIFF FLAG NO
[2025-01-23 12:57] LABS: Hematocrit 39.0 % (42.0-52.0); Hemoglobin 12.9 g/dl (14.0-18.0); Imm Gran Abs Auto 0.04 X10*3/uL (0.00-0.03); Imm Gran Pct Auto 0.6 % (0.0-0.4); Lymphocytes Absolute Auto 1.8 X10*3/uL (1.2-4.9); Mean Corpuscular HGB Conc 33.1 g/dl (31.0-36.0); Mean Corpuscular Hemoglobin 31.3 pg (27.0-33.0); Mean Corpuscular Volume 94.7 fL (80.0-98.0); NRBC Abs Auto 0.000 X10*3/uL (0.0-0.012); NRBC Pct Auto 0.0 /100WBC (0.0-0.2); Platelet Count 177 X10*3/uL (160-400); Red Blood Count 4.12 X10*6/uL (4.60-5.80); White Blood Count 7.0 X10*3/uL (4.8-10.8)
[2025-01-23 13:10] LABS: Appearance Urine Clear; Glucose Urine UA Negative (Negative); PH 6.5 (5.0-9.0); Specific Gravity - Urine <= 1.005 (1.005-1.025); UMIC TRIGGER UACC YES
[2025-01-23 13:10] LABS: Alanine Aminotransferase 23 U/L (0-40); Albumin Level 3.9 g/dL (3.5-5.0); Alkaline Phosphatase 56 U/L (39-117); Anion Gap 12 (12-20); Aspartate Amino Transferase 28 U/L (5-37); Blood Urea Nitrogen 11 mg/dL (9-16); Calcium 8.8 mg/dL (8.4-10.2); Carbon Dioxide 26 mmol/L (22-29); Chloride 107 mmol/L (96-108); Creatinine Clr Calc Pharmacy 102.6; Estimated Glomerular Filt Rate > 60; Potassium 4.6 mmol/L (3.3-5.1); Sodium 140 mmol/L (135-145); Total Protein 6.4 g/dL (6.5-8.0)
[2025-01-23 13:22] LABS: Troponin-I High Sensitivity < 2.7 ng/L (<3.5-35.0)
[2025-01-23 13:39] VITALS: BP 131/80; PULSE 97; RESP 18; TEMP 36.5; O2SAT 96
--- OUTSIDE RECORDS SUMMARY | 2025-01-23 14:00 | XMS_ITS | Encounter Summary ---
Author Organization [facility] Address [address] [place] [address] Care Team Providers Care Customer Sales Consultant Name Role Phone Patient, Has No Pcp Or Ref Primary Care Provider Unavailable Encounter Details Date Type Department Care Team (Late st Contact Info) Description 01/04/2024 Community Orders [facility] Link [address] [place] [address] Bethany Lozano, DOOR REPAIRER [address] [place] [address] Social History Tobacco Use Types Packs/Day Years [...] on filedocumented in this encounter Care Teams Customer Sales Consultant Relationship Specialty Start Date End Date Patient, Has No Pcp Or Ref DO NOT EDIT THIS RECORD VIA PROVIDER ON THE FLY PCP - General Nurse Supervisor 12/30/23 documented as of this encounter
--- OUTSIDE RECORDS SUMMARY | 2025-01-23 14:00 | XMS_ITS | Clinical Summary ---
Author Organization [facility] Address [address] [place] [address] Phone Care Team Providers Care Welt Rander Name Role Phone Dk Rodriguez MD Primary Care Provider Allergies No known active allergies Medications No known medications Encounters Date Type Department Care Team Description 01/14/2025 8:53 PM EDT - 01/15/2025 12:26 AM EDT [facility] [address] [place] [phone] Discharge Disposition: Home or Self Care 01/12/2025 8:45 PM EDT - 01/12/2025 11:57 PM EDT [facility] [address] [place] [phone] Dilcia Carl MD Discharge Disposition: Left Against Medical Advice 12/04/2024 11:34 PM EDT - 12/05/2024 1:06 AM EDT [facility] [address] [place] [phone] Discharge Disposition: Home or Self Care 12/02/2024 10:00 PM EDT - 12/03/2024 12:28 AM EDT [facility] [address] [place] [phone] Discharge Disposition: Home or Self Care 11/27/2024 10:17 PM EDT - 11/28/2024 8:54 AM EDT [facility] [address] [place] [phone] Discharge Disposition: Home or Self Care 11/26/2024 9:40 PM EDT - 11/27/2024 2:06 AM EDT [facility] [address] [place] [address] Discharge Disposition: Home or Self Care 11/24/2024 11:19 PM EDT - 11/25/2024 1:14 AM EDT [facility] [address] [place] [address] Discharge Disposition: Home or Self Care 11/23/2024 11:27 PM EDT - 11/24/2024 1:10 AM EDT [facility] [address] [place] [address] Urinary retention (Primary Dx) Discharge Disposition: Home or Self Care 11/22/2024 10:08 PM EDT - 11/23/2024 2:55 AM EDT [facility] [address] [place] [phone] Discharge Disposition: Home or Self Care 11/18/2024 3:47 AM EDT - 11/18/2024 5:34 AM EDT [facility] [address] [place] [phone] Discharge Disposition: Home or Self Care 11/09/2024 12:37 AM EDT - 11/09/2024 4:23 AM EDT [facility] [address] [place] [phone] Discharge Disposition: Home or Self Care from Last 3 Months Medical History Medical History Date Comments Bipolar 1 disorder ([facility] V24, [facility] V28) Mood disorder ([facility] V24) Hyperactivity of bladder Social History [...] LAB HEMETOLOGY METHOD 12/05/2024 12:52 AM EDT [facility] RBC 4.00(L) 4.50 - 5.50 M/mcL LAB HEMETOLOGY METHOD 12/05/2024 12:52 AM EDT [facility] Hemoglobin 12.7(L) 13.5 - 17.5 g/dL LAB HEMETOLOGY METHOD 12/05/2024 12:52 AM [facility] Hematocrit 37.3(L) 42.0 - 54.0 % LAB HEMETOLOGY METHOD 12/05/2024 12:52 AM [facility] MCV 93.7 79.0 - 98.0 FL LAB HEMETOLOGY METHOD 12/05/2024 12:52 AM [facility] MCH 31.9 27.0 - 32.0 pcg LAB HEMETOLOGY METHOD 12/05/2024 12:52 AM [facility] MCHC 34.0 32.0 - 37.0 g/dL LAB HEMETOLOGY METHOD 12/05/2024 12:52 AM [facility] RDW 13.2 11.0 - 15.0 % LAB HEMETOLOGY METHOD 12/05/2024 12:52 AM [facility] Platelets 207 130 - 400 K/mcL LAB HEMETOLOGY METHOD 12/05/2024 12:52 AM [facility] MPV 9.4 7.0 - 11.0 FL LAB HEMETOLOGY METHOD 12/05/2024 12:52 AM [facility] NRBC 0.0 <1.0 % LAB HEMETOLOGY METHOD 12/05/2024 12:52 AM [facility] NRBC Absolute 0.00 <0.10 K/mcL LAB HEMETOLOGY METHOD 12/05/2024 12:52 AM [facility] Neutrophils Relative 56.8 % LAB HEMETOLOGY METHOD 12/05/2024 12:52 AM [facility] Lymphocytes Relative 27.7 % LAB HEMETOLOGY METHOD 12/05/2024 12:52 AM [facility] Monocytes Relative 11.1 % LAB HEMETOLOGY METHOD [facility]/05[facility]24 12[facility] Eosinophils Relative 3.3 % LAB HEMETOLOGY METHOD [facility]/05[facility]24 12[facility] Basophils Relative 0.8 % LAB HEMETOLOGY METHOD 12/05/2024 12:52 AM [facility] Immature Granulocytes Relative 0.3 % LAB HEMETOLOGY METHOD 12/05/2024 12:52 AM EDT [facility] Neutrophils Absolute 4.19 1.50 - 7.00 K/mcL LAB HEMETOLOGY METHOD 12/05/2024 12:52 AM [facility] Lymphocytes Absolute 2.04 1.00 - 5.00 K/mcL LAB HEMETOLOGY METHOD 12/05/2024 12:52 AM [facility] Monocytes Absolute 0.82 0.20 - 1.00 K/mcL LAB HEMETOLOGY METHOD 12/05/2024 12:[facility] Eosinophils Absolute 0.24 0.00 - 0.50 K/mcL LAB HEMETOLOGY METHOD 12/05/2024 12:52 AM [facility] Basophils Absolute 0.06 0.00 - 0.20 K/mcL LAB HEMETOLOGY METHOD 12/05/2024 12:52 AM [facility] Immature Granulocytes Absolute 0.02 0.00 - 0.03 K/mcL LAB HEMETOLOGY METHOD 12/05/2024 12:52 AM T [facility] Blood Venous blood specimen / Unknown Venipuncture / Unknown 12/05/2024 12:00 AM EDT 12/05/2024 12:45 AM EDT us Dalila Alberto MD LAB BLOOD ORDERABLES Fin al Result [facility] [address] [place] [address], * (ABNORMAL) Comprehensive metabolic panel (12/05/2024 12:00 AM EDT) Sodium 139 133 - 145 mmol/L LAB CHEMISTRY METHOD 12/05/2024 1:25 AM [facility] Potassium 3.6 3.5 - 5.5 mmol/L LAB CHEMISTRY METHOD 12/05/2024 1:25 AM [facility] Chloride 108 96 - 110 mmol/L LAB CHEMISTRY METHOD 12/05/2024 1:25 AM [facility] CO2 26 21 - 32 mmol/L LAB CHEMISTRY METHOD 12/05/2024 1:25 AM [facility] Anion Gap 5 3 - 11 LAB CHEMISTRY METHOD 12/05/2024 1:25 AM [facility] Glucose 80 70 - 100 mg/dL LAB CHEMISTRY METHOD 12/05/2024 1:25 AM [facility] BUN 8 5 - 25 mg/dL LAB CHEMISTRY METHOD 12/05/2024 1:25 AM [facility] Creatinine 0.69(L) 0.70 - 1.30 mg/dL LAB CHEMISTRY METHOD 12/05/2024 1:25 AM [facility] eGFR 107 >=60 mL/min/1. 73m2 LAB CHEMISTRY METHOD 12/05/2024 1:25 AM [facility] Comment:Calculation based on the Chronic Kidney Disease Epidemiology Collaboration (CKD-EPI) equation refit without adjustment for race. BUN/Creatinine Ratio 11.6 LAB CHEMISTRY METHOD 12/05/2024 1:25 AM [facility] Calcium 8.6 8.5 - 10.5 mg/dL LAB CHEMISTRY METHOD 12/05/2024 1:25 AM [facility] AST (SGOT) 13 10 - 42 unit/L LAB CHEMISTRY METHOD 12/05/2024 1:25 AM [facility] ALT (SGPT) 16 10 - 60 unit/L LAB CHEMISTRY METHOD 12/05/2024 1:25 AM EDT [facility] Alkaline Phosphatase 67 42 - 121 unit/L LAB CHEMISTRY METHOD 12/05/2024 1:25 AM [facility] Total Protein 6.3 6.0 - 8.0 g/dL LAB CHEMISTRY METHOD 12/05/2024 1:25 AM [facility] Albumin 3.3 3.2 - 5.0 g/dL LAB CHEMISTRY METHOD 12/05/2024 1:25 AM [facility] Total Bilirubin 0.4 0.0 - 1.4 mg/dL LAB CHEMISTRY METHOD 12/05/2024 1:25 AM [facility] Blood Venous blood specimen / Unknown Venipuncture / Unknown 12/05/2024 12:00 AM EDT 12/05/2024 12:45 AM EDT Dalila Alberto MD LAB BLOOD ORDERABLES Fin al Result [facility] [address] [place] [address], * (ABNORMAL) Urinalysis with reflex microscopic and culture (11/23/2024 11:28 PM EDT) Specific [place] Urine 1.007 1.003 - 1.030 LAB URINALYSIS - AUTOMATED METHOD 11/24/2024 12:11 AM [facility] pH, Urine 6.5 5.0 - 8.0 pH LAB URINALYSIS - AUTOMATED METHOD 11/24/2024 12:11 AM [facility] Leukocytes, Urine Moderate(A) Negative LAB URINALYSIS - AUTOMATED METHOD 11/24/2024 12:11 AM [facility] Nitrite, Urine Negative Negative LAB URINALYSIS - AUTOMATED METHOD 11/24/2024 12:11 AM [facility] Protein, Urine Negative <=Trace mg/dL LAB URINALYSIS - AUTOMATED METHOD 11/24/2024 12:11 AM [facility] Glucose, Urine Negative Negative mg/dL LAB URINALYSIS - AUTOMATED METHOD 11/24/2024 12:11 AM [facility] Ketones, Urine Negative Negative mg/dL LAB URINALYSIS - AUTOMATED METHOD 11/24/2024 12:11 AM [facility] Urobilinogen , Urine 0.2 0.2 - 1.0 mg/dL LAB URINALYSIS - AUTOMATED METHOD 11/24/2024 12:11 AM [facility] Bilirubin, Urine Negative Negative LAB URINALYSIS - AUTOMATED METHOD 11/24/2024 12:11 AM [facility] Blood, Urine Negative Negative LAB URINALYSIS - AUTOMATED METHOD 11/24/2024 12:11 AM [facility] RBC, Urine 1.3 0 - 4 /HPF LAB URINALYSIS - AUTOMATED METHOD 11/24/2024 12:11 AM [facility] WBC, Urine 8.1(H) 0 - 4 /HPF LAB URINALYSIS - AUTOMATED METHOD 11/24/2024 12:11 AM [facility] Squamous Epithelial, Urine 14 0 - 60 /LPF LAB URINALYSIS - AUTOMATED METHOD 11/24/2024 12:11 AM [facility] Bacteria, Urine Negative Negative /HPF LAB URINALYSIS - AUTOMATED METHOD 11/24/2024 12:11 AM [facility] Hyaline Casts, Urine 0.4 0 - 3 /LPF LAB URINALYSIS - AUTOMATED METHOD 11/24/2024 12:11 AM [facility] Urine Urine specimen obtained by clean catch procedure / Unknown Non-blood Collection / Unknown 11/23/2024 11:28 PM EDT 11/24/2024 12:03 AM EDT Ming Love MD LAB URINE ORDERABLES Final Res ult Performing Organization Address City/[facility]/ZIP Co de Phone Number [facility] [address] [place] [address], [place] [phone] * [place] urine culture tube (11/23/2024 11:28 PM EDT) Extra Tube Hold for add-ons. 11/25/2024 1:01 AM EDT [facility] Comment:Auto resulted. Urine Urine specimen obtained by clean catch procedure / Unknown Non-blood Collection / Unknown 11/23/2024 11:28 PM EDT 11/24/2024 12:03 AM EDT Ming Love MD LAB URINE ORDERABLES Final Res ult Performing Organization Address [facility]/ZIP Co de Phone Number [facility] [address] [place] [address], [place] [phone] * Culture urine (11/23/2024 11:28 PM EDT) Culture, Urine <10,000 CFU/mL gram positive cocci, insignificant count, no further workup 11/25/2024 10:10 AM EDT [facility] Urine Urine specimen obtained by clean catch procedure / Unknown Non-blood Collection / Unknown 11/23/2024 11:28 PM EDT 11/24/2024 12:11 AM EDT Ming Love MD LAB MICROBIOLOGY - GENERAL ORD ERABLES Final Result Performing Organization Address City/[facility]/ZIP Co de Phone Number [facility] [address] [place] [address], [place] [phone] from Last 3 Months Insurance [id number] [address] MEDICARE MEDICAID - [place] Care Teams Welt Rander Relationship Specialty Start Date End Date Dk Rodriguez MD [address] [place] [address] [address] [place], [place] PCP - General Internal Medicine 07/16/24
[2025-01-23 14:11] LABS: Free T4 (Free Thyroxine) 1.00 ng/dL (0.71-1.85)
== END 2025-01-23 15:16 | disposition home or self-care (01) ==
LOC: HO.ED 13:53
PROVIDERS: Registered Nurse Emergency; Emergency Provider Emergency Medicine; PCP Internal Medicine
DX: N31.9 Neuromuscular dysfunction of bladder, unspecified (principal); K21.9 Gastro-esophageal reflux disease without esophagitis; F20.89 Other schizophrenia; R00.2 Palpitations; F41.9 Anxiety disorder, unspecified; F17.210 Nicotine dependence, cigarettes, uncomplicated; Z79.899 Other long term (current) drug therapy
CPT/HCPCS: 36415; 51798; 80053; 81001; 84439; 84443; 84484; 85025; 93005; 99283; 99285

== ENCOUNTER → 2025-01-23 12:39 | Outpatient (BNV) | payer MEDICARE, MEDICAID, SELFPAY | PROVIDERS: Emergency Provider Emergency Medicine; PCP Internal Medicine; Visit Provider Internal Medicine Cardiovascular Disease | DX: I49.3 Ventricular premature depolarization (principal) | CPT/HCPCS: 93010 ==

== ENCOUNTER 2025-01-23 20:53 | Emergency (ER) | payer MEDICARE, MEDICAID, SELFPAY ==
[2025-01-23 21:00] VITALS: BP 116/68; PULSE 87; RESP 20; TEMP 36.6; O2SAT 96; BMI 20.7
[2025-01-23 22:36] LABS: Appearance Urine Clear; Glucose Urine UA Negative (Negative); PH 6.5 (5.0-9.0); Specific Gravity - Urine 1.010 (1.005-1.025); UMIC TRIGGER UACC YES
--- NOTE | 2025-01-23 22:40 | ED_ITS ---
HPI - General Adult General Chief complaint: General Medical Stated complaint: psych /living issues Time Seen by Provider: 01/23/25 21:28 Source: patient and old records reviewed Mode of arrival: ambulatory Limitations: no limitations History of Present Illness ED Provider: NATALIE MCKAY narrative: 59 yo male with PMH of BPH, chronic suprapubic pain, GERD, UTI, straight cath, HLD, schizoaffective d/o here with c/o wanting a schafer catheter instead of straight cath though he cannot really tell me why I just don't want to do this man . He then states he hates his senior living and wants to go to respite. He has no SI/HI. He was just seen for same in the past 24 hours normal urine and labs. He states he hates his senior living. He is using straight cath as he should. complaint: urinary retention, issue with senior living Onset (ago): year(s) Radiation: non-radiation Severity: moderate Quality: aching Pain Consistency: constant Relieving factors: none Exacerbating factors: none Associated symptoms: other Treatments prior to arrival: none Related Data Previous Rx's ?Medication ?Instructions ?Recorded atorvastatin 20 mg tablet 20 mg PO QPM 90 days #90 tab s 01/10/25 tamsulosin 0.4 mg capsule 0.4 mg PO QAM 90 days #90 ca ps 01/10/25 polyethylene glycol 3350 17 17 g PO DAILY #119 grams 0 01/22/25 gram/dose oral powder (Miralax) Allergies Allergy/AdvReac Type Severity Reaction Status Date / Time No Known Allergies (NO KNOWN Allergy Unknown UNKNOWN Verified 01/23/25 21:06 ALLERGIES) Review of Systems Review of Systems: Constitutional : No Fever, No Chills, No Fatigue ENT/Mouth : No sore throat, No Rhinorrhea Eyes: No Eye Pain, No Swelling, No Redness Cardiovascular : No Chest Pain, No SOB Respiratory : No Cough, No Sputum Gastrointestinal : No Nausea, No Vomiting Pain Genitourinary : , pos frequency, pos issue with retention, pos suprapubic pain Musculoskeletal : No joint pain, No Myalgias, No Joint Swelling Skin : No Skin Lesions, No rash Neuro : No Weakness, No Numbness, No Dizziness All other systems reviewed and are negative PMFSH Past Medical History Attestation statement: The following information was validated with the patient. Source: old records reviewed Medical History Smoker GERD without esophagitis Tubular adenoma of colon (~2018) Personal history of nicotine dependence Constipation Back pain Schizoaffective disorder, bipolar type Anxiety Benign prostatic hyperplasia with lower urinary tract symptoms Pure hypercholesterolemia Thought disorder Bipolar 1 disorder Mood disorder Surgical History History of colonoscopy (~04/2019) History of prostate surgery (~04/2019) History of open reduction and internal fixation (ORIF) procedure (~08/2018) Family History Family History Father Lung cancer BPH (benign prostatic hyperplasia) Mother Dementia Brother Myocardial infarction Other Mental health problem Substance abuse Social History Social History Household Members: None Housing: Assisted Living Facility Housing Other:: senior living Do you presently have visiting nurse or other home services: No Alcohol intake: never Patient Tobacco Use Status: Current everyday Tobacco user Tobacco use type: Cigarette Cigarette Packs Per Day: 0.5 Cigarettes Per Day: 5 Years Smoked: 10 e-Cigarette/Vaping Use: Never Used Second Hand Smoke Exposure: Yes Advance Directives: No Advance Directives Information Provided: No service: No Current occupational status: employed Current occupation: [id number] Sexual orientation: Decline to Answer Cognitive needs: No Hearing needs: No Vision needs: Yes Physical Exam ED Vital Signs: Vital Signs - 24 hr 01/23/25 21:00 Temperature 97.9 F Pulse Rate 87 Respiratory Rate 20 Blood Pressure 116/68 Pulse Oximetry 96 Oxygen Delivery Method Room Air BMI result Body Mass Index 20.7 Appearance: Alert. Oriented X3. No acute distress. He is very upset when questioning. When I asked him about why he wants a schafer instead of a straight cath which was Urology recommendations. He became very upset and demanded DC. Eyes: Pupils equal, round and reactive to light. ENT: Pharynx normal. Neck: Normal inspection. CVS: Pulses normal. Respiratory: No respiratory distress. Abdomen: Soft and nontender. Skin: Skin warm and dry. Normal skin color. Extremities: No lower extremity edema. Neuro: Oriented X 3. No motor deficit. No sensory deficit. Medical Decision Making Medical Decision Making [facility] Narrative: 59 yo male with PMH of BPH, chronic suprapubic pain, GERD, UTI, straight cath, HLD, schizoaffective d/o here with c/o wanting a schafer but he really cannot tell me why or what has changed. He just states I can't take it. He then reports he wants respite but has no SI/HI. I did attempt to talk to him but after I told him schafer was not indicated he demanded DC. Differential Diagnosis Differential Diagnoses: The differential diagnosis associated with the presentation includes poor social support, neurogenic bladder, BPH Admission/Observation Consideration of admission/observation: Escalation of care including admission/observation considered requesting DC Lab Data [facility] Lab Attestation statement: I reviewed the patient's lab results. External Record Review External record reviewed: Outpatient record and Prior outpatient labs Discharge Plan Discharge Clinical Impression: Neurogenic bladder Patient Disposition: Home, Self-Care Instructions: Neurogenic Bladder (ED) Additional Instructions: you just had normal labs and urine in the past 24 hours you need to follow up with your urologist and ask about your options with catheterizations return for any worsening symptoms or concerns. Prescriptions: No Action polyethylene glycol 3350 [Miralax] 17 gram/dose powder 17 g PO DAILY Qty: 119 0RF tamsulosin 0.4 mg capsule 0.4 mg PO QAM 90 Days Qty: 90 0RF atorvastatin 20 mg tablet 20 mg PO QPM 90 Days Qty: 90 3RF Print Language: Thai
[2025-01-23 23:06] VITALS: BP 116/68; PULSE 87; RESP 20; TEMP 36.6; O2SAT 96
== END 2025-01-23 23:06 | disposition home or self-care (01) ==
PROVIDERS: Emergency Provider Emergency Medicine; PCP Internal Medicine
DX: N31.9 Neuromuscular dysfunction of bladder, unspecified (principal); Z87.440 Personal history of urinary (tract) infections
CPT/HCPCS: 51798; 81001; 81003; 99283; 99284

== ENCOUNTER 2025-01-26 07:32 | Emergency (ER) | payer MEDICARE, MEDICAID, SELFPAY ==
--- NOTE | 2025-01-26 | ECG_ITS ---
Test Reason : PALPTATIONS Blood Pressure : */* mmHG Vent. Rate : 86 BPM Atrial Rate : 86 BPM P-R Int : 136 ms QRS Dur : 86 ms QT Int : 364 ms P-R-T Axes : 75 2 39 degrees QTcB Int : 435 ms Normal sinus rhythm Right atrial enlargement Borderline ECG When compared with ECG of 23-Jan-2025 12:45, Premature ventricular complexes are no longer Present Referred By: Generic ED Physician Electronically Signed By: WIL SPRINGER
[2025-01-26 07:35] VITALS: BP 116/71; PULSE 100; RESP 18; TEMP 36.6; O2SAT 97
--- NOTE | 2025-01-26 07:55 | ED.GENADULT ---
HPI - General Adult General Chief complaint: Abdominal Pain Stated complaint: abd pain doesnt feel good Time Seen by Provider: 01/26/25 07:51 Source: patient Limitations: no limitations History of Present Illness HPI narrative: Patient is well known to me he has long history of anxiety disorder, and lives in a correction, history of schizoaffective disorder basically he is complaining of palpitation stating that he does not feel good and is having abdominal pain. There is no reported fever no reported vomiting or diarrhea. He looks anxious Onset (ago): day(s) (1) Radiation: non-radiation Relieving factors: none Exacerbating factors: none Associated symptoms: denies other symptoms Treatments prior to arrival: none Related Data Previous Rx's ?Medication ?Instructions ?Recorded atorvastatin 20 mg tablet 20 mg PO QPM 90 days #90 tabs 01/10/25 tamsulosin 0.4 mg capsule 0.4 mg PO QAM 90 days #90 caps 01/10/25 polyethylene glycol 3350 17 17 g PO DAILY #119 grams 01/22/25 gram/dose oral powder (Miralax) Allergies Allergy/AdvReac Type Severity Reaction Status Date / Time No Known Allergies (NO KNOWN Allergy Unknown UNKNOWN Verified 01/26/25 07:37 ALLERGIES) Review of Systems Review of Systems: Yes all other systems are reviewed and are negative Constitutional: Constitutional: Reports as per HPI ENT: Reports system reviewed and no additional complaints, except as documented Cardiovascular: Cardiovascular: Reports no additional cardiovascular complaints [facility] Past Medical History Attestation statement: The following information was validated with the patient. Medical History Smoker GERD without esophagitis Tubular adenoma of colon (~2018) Personal history of nicotine dependence Constipation Back pain Schizoaffective disorder, bipolar type Anxiety Benign prostatic hyperplasia with lower urinary tract symptoms Pure hypercholesterolemia Thought disorder Bipolar 1 disorder Mood disorder Surgical History History of colonoscopy (~04/2019) History of prostate surgery (~04/2019) History of open reduction and internal fixation (ORIF) procedure (~08/2018) Family History Family History Father Lung cancer BPH (benign prostatic hyperplasia) Mother Dementia Brother Myocardial infarction Other Mental health problem Substance abuse Social History Social History Household Members: None Housing: Assisted Living Facility Housing Other:: correction Do you presently have visiting nurse or other home services: No Alcohol intake: never Patient Tobacco Use Status: Current everyday Tobacco user Tobacco use type: Cigarette Cigarette Packs Per Day: 0.5 Cigarettes Per Day: 5 Years Smoked: 10 Smoked in Last 30 Days: No e-Cigarette/Vaping Use: Never Used Second Hand Smoke Exposure: Yes Use of substances other than those prescribed or required for medical reasons: No Advance Directives: No Advance Directives Information Provided: No Do you have a plan to hurt others: No Plan service: No Current occupational status: employed Current occupation: [employer] Sexual orientation: Decline to Answer Cognitive needs: No Hearing needs: No Vision needs: Yes Physical Exam ED Exam Exam: no acute distress Vital Signs: Vital Signs - 24 hr 01/26/25 07:35 Temperature 97.9 F Pulse Rate 100 Respiratory Rate 18 Blood Pressure 116/71 Pulse Oximetry 97 Oxygen Delivery Method Room Air BMI result Body Mass Index 20.0 Const General: cooperative Nutritional Appearance: average body habitus Orientation/consciousness: patient oriented x3 HENMT Head: Yes normal to inspection Ears: hearing grossly normal bilaterally General nose exam: Normal external nose present Face and sinus: Yes normal facial exam Neck Neck: Yes normal visual inspection Chest Chest palpation & inspection: normal inspection of the chest Resp Effort & Inspection: normal respiratory effort Auscultation: clear to auscultation bilaterally Cardio Jugular venous distension: no JVD Rate: regular rate Rhythm: regular rhythm GI Inspection: Yes normal to inspection Palpation (GI): Soft to palpation, not firm and nontender Auscultation: normal bowel sounds Skin General skin exam: no rashes or lesions noted and elasticity normal Lesions: no lesions Rashes: no rashes Neuro General: patient oriented x3 Cranial nerves: Yes CN's II-XII intact bilaterally Gait exam (Neuro): Normal gait present Coordination: [id number] test normal Psych Other: anxious Course Reevaluation(s) Reevaluation #1: Labs normal electrocardiogram normal remained hemodynamically stable he can be discharged home at this time Time: 09:21 Medical Decision Making Medical Decision Making MDM Narrative: Patient presented with abdominal pain and palpitation we will obtain EKG and labs Differential Diagnosis Differential Diagnoses: The differential diagnosis associated with the presentation includes Anxiety disorder AFib/SVT/colitis/diverticulitis Admission/Observation Consideration of admission/observation: Escalation of care including admission/observation considered Lab Data MDM Lab Attestation statement: I reviewed the patient's lab results. 01/26/25 08:15 01/26/25 08:15 Labs: Lab Results 01/26/25 Range/Units 08:15 WBC 6.0 (4.8-10.8) X10*3/uL RBC 4.06 L (4.60-5.80) X10*6/uL Hgb 13.2 L (14.0-18.0) g/dl Hct 37.7 L (42.0-52.0) % MCV 92.9 (80.0-98.0) fL MCH 32.5 (27.0-33.0) pg MCHC 35.0 (31.0-36.0) g/dl RDW 14.3 (11.0-16.0) % Plt Count 168 (160-400) X10*3/uL MPV 10.0 (9.4-12.4) fL Immature Gran % (Auto) 0.2 (0.0-0.4) % Neut % (Auto) 64.1 (45-73) % Lymph % (Auto) 22.6 (20-40) % Edgar % (Auto) 9.8 (2-11) % Eos % (Auto) 2.0 (0-4) % Baso % (Auto) 1.3 (0-2) % Lymph # (Auto) 1.4 (1.2-4.9) X10*3/uL Edgar # (Auto) 0.6 (0.1-1.2) X10*3/uL Eos # (Auto) 0.1 (0.0-0.4) X10*3/uL Baso # (Auto) 0.1 (0.0-0.2) X10*3/uL Abs Immat Gran (auto) 0.01 (0.00-0.03) X10*3/uL Absolute Neuts (auto) 3.9 (2.0-8.3) x10*3/uL Absolute Nucleated RBC 0.000 (0.0-0.012) X10*3/uL Nucleated RBC % (auto) 0.0 (0.0-0.2) /100WBC Sodium 141 (135-145) mmol/L Potassium 3.9 (3.3-5.1) mmol/L Chloride 108 (96-108) mmol/L Carbon Dioxide 24 (22-29) mmol/L Anion Gap 13 (12-20) BUN 7 L (9-16) mg/dL Creatinine 0.69 (0.5-1.4) mg/dL Estim Creat Clear Calc 100.2 Estimated GFR > 60 Random Glucose 95 (60-115) mg/dL Calcium 8.6 (8.4-10.2) mg/dL Total Bilirubin 0.3 (0.0-1.0) mg/dL AST 26 (5-37) U/L ALT 18 (0-40) U/L Alkaline Phosphatase 57 (39-117) U/L Total Protein 6.3 L (6.5-8.0) g/dL Albumin 3.9 (3.5-5.0) g/dL Lipase 18 (8-78) U/L Independent Interpretation I performed an independent interpretation of an: EKG Interpretation: EKG was reviewed and interpreted by me as sinus rhythm rate [address]-T changes no ischemia Discharge Plan Discharge Clinical Impression: Anxiety Patient Disposition: Home, Self-Care Instructions: Anxiety (ED) Prescriptions: No Action polyethylene glycol 3350 [Miralax] 17 gram/dose powder 17 g PO DAILY Qty: 119 0RF tamsulosin 0.4 mg capsule 0.4 mg PO QAM 90 Days Qty: 90 0RF atorvastatin 20 mg tablet 20 mg PO QPM 90 Days Qty: 90 3RF Referrals: Dk Rodriguez MD [Primary Care Provider, Internal Medicine] Print Language: Macedonian
[2025-01-26 08:27] LABS: Hematocrit 37.7 % (42.0-52.0); Hemoglobin 13.2 g/dl (14.0-18.0); Imm Gran Abs Auto 0.01 X10*3/uL (0.00-0.03); Imm Gran Pct Auto 0.2 % (0.0-0.4); Lymphocytes Absolute Auto 1.4 X10*3/uL (1.2-4.9); MANUAL DIFF FLAG NO; Mean Corpuscular HGB Conc 35.0 g/dl (31.0-36.0); Mean Corpuscular Hemoglobin 32.5 pg (27.0-33.0); Mean Corpuscular Volume 92.9 fL (80.0-98.0); NRBC Abs Auto 0.000 X10*3/uL (0.0-0.012); NRBC Pct Auto 0.0 /100WBC (0.0-0.2); Platelet Count 168 X10*3/uL (160-400); Red Blood Count 4.06 X10*6/uL (4.60-5.80); White Blood Count 6.0 X10*3/uL (4.8-10.8)
[2025-01-26 08:44] LABS: Alanine Aminotransferase 18 U/L (0-40); Albumin Level 3.9 g/dL (3.5-5.0); Alkaline Phosphatase 57 U/L (39-117); Anion Gap 13 (12-20); Aspartate Amino Transferase 26 U/L (5-37); Blood Urea Nitrogen 7 mg/dL (9-16); Calcium 8.6 mg/dL (8.4-10.2); Carbon Dioxide 24 mmol/L (22-29); Chloride 108 mmol/L (96-108); Creatinine Clr Calc Pharmacy 100.2; Estimated Glomerular Filt Rate > 60; Lipase 18 U/L (8-78); Potassium 3.9 mmol/L (3.3-5.1); Sodium 141 mmol/L (135-145); Total Protein 6.3 g/dL (6.5-8.0)
--- NOTE | 2025-01-26 09:26 | PC.NURSE ---
Pt skilled nursing updated on pt d/c. Pt in agreement with discharge. Pt refused d/c vitals- left the ED with steady gait on room air.
[2025-01-26 09:33] VITALS: BP 116/71; PULSE 100; RESP 18; TEMP 36.6; O2SAT 97
== END 2025-01-26 09:34 | disposition home or self-care (01) ==
PROVIDERS: Emergency Provider Emergency Medicine; PCP Internal Medicine
DX: F41.9 Anxiety disorder, unspecified (principal); R10.9 Unspecified abdominal pain; F20.9 Schizophrenia, unspecified
CPT/HCPCS: 36415; 80053; 83690; 85025; 93005; 99283; 99284

== ENCOUNTER → 2025-01-26 07:46 | Outpatient (BNV) | payer MEDICARE, MEDICAID, SELFPAY | PROVIDERS: Emergency Provider Emergency Medicine; PCP Internal Medicine; Visit Provider Internal Medicine | DX: I51.7 Cardiomegaly (principal) | CPT/HCPCS: 93010 ==

== ENCOUNTER 2025-01-26 20:02 | Emergency (ER) | payer MEDICARE, MEDICAID, SELFPAY ==
[2025-01-26 20:07] VITALS: BP 108/74; PULSE 106; RESP 20; TEMP 35.9; O2SAT 97; BMI 20.1
--- NOTE | 2025-01-26 20:09 | ED_ITS ---
HPI - General Adult General Chief complaint: General Medical Stated complaint: crisis eval Time Seen by Provider: 01/26/25 21:04 Source: patient Mode of arrival: ambulatory Limitations: no limitations History of Present Illness ED Provider: Dr. Dalila Alberto HPI narrative: 59-year-old male with a history of neurogenic bladder requiring self catheterization, schizoaffective disorder from a [facility] presenting with ?bladder problems ?. States that he ?does not like how the [facility] is managing his bladder situation?. Feels as though they are not listening to him and they do not let him follow up with the urologist as prescribed. He has been to this emergency department 3 times in the last 24 hours for this reason. He denies any suicidal thoughts or plan. Denies self-harm. No visual or auditory hallucinations. Denies fever, back pain, chest pain, difficulty breathing, nausea or vomiting. Related Data Previous Rx's ?Medication ?Instructions ?Recorded atorvastatin 20 mg tablet 20 mg PO QPM 90 days #90 tab s 01/10/25 tamsulosin 0.4 mg capsule 0.4 mg PO QAM 90 days #90 ca ps 01/10/25 polyethylene glycol 3350 17 17 g PO DAILY #119 grams 0 01/22/25 gram/dose oral powder (Miralax) Allergies Allergy/AdvReac Type Severity Reaction Status Date / Time No Known Allergies (NO KNOWN Allergy Unknown UNKNOWN Verified 01/26/25 20:11 ALLERGIES) Review of Systems Review of Systems: As per HPI, full review of systems performed and negative but for the above mentioned pertinent positives and negatives. [facility] Past Medical History Medical History Smoker GERD without esophagitis Tubular adenoma of colon (~2018) Personal history of nicotine dependence Constipation Back pain Schizoaffective disorder, bipolar type Anxiety Benign prostatic hyperplasia with lower urinary tract symptoms Pure hypercholesterolemia Thought disorder Bipolar 1 disorder Mood disorder Surgical History History of colonoscopy (~04/2019) History of prostate surgery (~04/2019) History of open reduction and internal fixation (ORIF) procedure (~08/2018) Family History Family History Father Lung cancer BPH (benign prostatic hyperplasia) Mother Dementia Brother Myocardial infarction Other Mental health problem Substance abuse Social History Social History Household Members: None Housing: Assisted Living Facility Housing Other:: [facility] Do you presently have visiting nurse or other home services: No Alcohol intake: never Patient Tobacco Use Status: Current everyday Tobacco user Tobacco use type: Cigarette Cigarette Packs Per Day: 0.5 Cigarettes Per Day: 5 Years Smoked: 10 Smoked in Last 30 Days: No e-Cigarette/Vaping Use: Never Used Second Hand Smoke Exposure: Yes Use of substances other than those prescribed or required for medical reasons: No Advance Directives: No Advance Directives Information Provided: No Do you have a plan to hurt others: No Plan service: No Current occupational status: employed Current occupation: [employer] Sexual orientation: Decline to Answer Cognitive needs: No Hearing needs: No Vision needs: Yes Physical Exam ED Exam Exam: GENERAL: Unkempt, no acute distress. SKIN: Normal skin color for ethnicity, warm, dry, no rashes noted. HEENT: Normocephalic, atraumatic, no stridor, posterior oropharynx nonerythematous, dentition intact, EOMI. NECK: Soft, supple, full ROM, midline structures nontender, no step-offs, no deformities, no lymphadenopathy. CHEST: Heart regular rate and rhythm, no murmurs, symmetric chest rise and fall. PULMONARY: Clear to auscultation bilaterally, no labored breathing, no wheezes/rhales/rhonchi. ABDOMINAL: Soft, nondistended, nontender, positive bowel sounds in all qu adrants. : Deferred. MUSCULOSKELETAL: Normal tone, full range of motion, no deformities, no peripheral edema. NEURO: Alert and oriented x3, CN II through XII intact, equal strength and sensation bilateral upper and lower extremities, no focal neurologic deficits. PSYCHIATRIC: Flat affect, poor eye contact, withdrawn Vital Signs: Vital Signs - 24 hr 01/26/25 20:07 Temperature 96.7 F L Pulse Rate 106 H Respiratory Rate 20 Blood Pressure 108/74 Pulse Oximetry 97 Oxygen Delivery Method Room Air BMI result Body Mass Index 20.1 Course Course Course Narrative: RMPenny, this is a rapid medical exam performed by Saeid Valdivia please refer to primary provider for complete H&P- 59-year-old male past medical history is for schizoaffective bipolar type, anxiety, constipation, BPH presents for evaluation of difficulty urinating. He reports ?I am here because I am sick in the bladder. He also reports he does not feel safe in his living situation and trigger be. He was seen here this morning and had basic labs. We will add on a urinalysis, tox screen and a bladder scan. He is not suicidal Medical Decision Making Medical Decision Making [facility] Narrative: 59-year-old male with a history of schizoaffective bipolar disorder, neurogenic bladder presenting with bladder pain. Differential diagnosis includes UTI, urinary retention, bladder outlet obstruction, kidney stone, electrolyte abnormality, renal dysfunction, among others. Blood work is reassuring. This was done earlier today. He also had a urinalysis that is does not show sign of infection. He is requesting straight catheterization. 9:49 PM 01/26/2025 (Dr. Dalila Alberto, D.O.) RN tells me that patient told her he has never straight cath'd himself before. RN reports that she was attempting to straight cath the patient and he started to get an erection. She was able to drain 600 from his bladder. I have instructed her not to attempt another catheterization. At this point I feel that he is malingering, several visits to the emergency department in the last 24 hours. He has no medical indication for admission. He is denying suicidality and reports that he just does not like w here he lives. I discussed with him that he needs to bring up his concerns with the [facility] that he is currently living with and coming to the hospital for catheterization is not an indication for emergency room visit. Especially since he knows how to do it himself and has the equipment at his house. He is now requesting discharge. Wants to go back to the [facility]. Discharged in stable condition. Differential Diagnosis Differential Diagnoses: The differential diagnosis associated with the presentation includes (As above) Admission/Observation Consideration of admission/observation: Escalation of care including admission/observation considered Lab Data [facility] Lab Attestation statement: I reviewed the patient's lab results. Renal function, CBC normal from earlier today. Labs: Lab Results 01/26/25 Range/Units 21:43 Urine Color Yellow Urine Appearance Clear Urine pH 6.0 (5.0-9.0) Ur Specific Fenton <= 1.005 (1.005-1.025) Urine Protein Negative (Neg-Trace) mg/dL Urine Glucose (UA) Negative (Negative) mg/dL Urine Ketones Negative (Negative) mg/dL Urine Blood Trace H (Negative) Urine Nitrite Negative (Negative) Ur Leukocyte Esterase Trace H (Negative) Urine RBC 0-2 (0-2) /HPF Urine WBC 0-5 (0-5) /HPF Ur Squamous Epith Cells 0-2 (0-2) /HPF Urine Bacteria None Seen (None Seen) Hyaline Casts 0-2 (0-2) /LPF Urine Opiates Screen Not Detected (Not Detect) Ur Buprenorphine Scrn Not Detected (Not Detect) ng/mL Ur Oxycodone Screen Not Detected (Not Detect) ng/mL Urine Methadone Screen Not Detected (Not Detect) ng/mL Urine Fentanyl Screen Not Detected (Not Detect) Ur Barbiturates Screen Not Detected (Not Detect) Ur Phencyclidine Scrn Not Detected (Not Detect) Ur Amphetamines Screen Not Detected (Not Detect) U Benzodiazepines Scrn Not Detected (Not Detect) Urine Cocaine Screen Not Detected (Not Detect) U Marijuana (THC) Screen Not Detected (Not Detect) Discharge Plan Discharge Clinical Impression: Neurogenic bladder, Malingering Patient Disposition: Home, Self-Care Instructions: Neurogenic Bladder (ED) Additional Instructions: You can continue to self-catheterize at your [facility]. You do not have to come to the emergency department to have this done. Prescriptions: No Action polyethylene glycol 3350 [Miralax] 17 gram/dose powder 17 g PO DAILY Qty: 119 0RF tamsulosin 0.4 mg capsule 0.4 mg PO QAM 90 Days Qty: 90 0RF atorvastatin 20 mg tablet 20 mg PO QPM 90 Days Qty: 90 3RF Print Language: Vietnamese
--- OUTSIDE RECORDS SUMMARY | 2025-01-26 20:16 | XMS_ITS | Encounter Summary ---
Author Organization [facility] Address [address] [place] [address] Care Team Providers Care Lathe Machinist Name Role Phone Patient, Has No Pcp Or Ref Primary Care Provider Unavailable Encounter Details Date Type Department Care Team (Late st Contact Info) Description 01/04/2024 Community Orders [facility] EpicCare Link [address] [place] [address] Bethany Lozano, [address] [place] [address] Social History Tobacco Use Types Packs/Day Years [...] on filedocumented in this encounter Care Teams Lathe Machinist Relationship Specialty Start Date End Date Patient, Has No Pcp Or Ref DO NOT EDIT THIS RECORD VIA PROVIDER ON THE FLY PCP - General Bracelet Maker Novelty 12/30/23 documented as of this encounter
--- OUTSIDE RECORDS SUMMARY | 2025-01-26 20:16 | XMS_ITS | Clinical Summary ---
Author Organization [facility] Address [address] [place] [address] Phone Care Team Providers Care Pie Crust Mixer Name Role Phone Dk Rodriguez MD Primary Care Provider Allergies No known active allergies Medications No known medications Encounters Date Type Department Care Team Description 01/14/2025 8:53 PM EDT - 01/15/2025 12:26 AM EDT [facility] [address] [place] [phone] Discharge Disposition: Home or Self Care 01/12/2025 8:45 PM EDT - 01/12/2025 11:57 PM EDT [facility] [address] [place] [phone] Dilcia Carl MD Discharge Disposition: Left Against Medical Advice 12/04/2024 11:34 PM EDT - 12/05/2024 1:06 AM EDT [facility] [address] [place] [phone] Discharge Disposition: Home or Self Care 12/02/2024 10:00 PM EDT - 12/03/2024 12:28 AM EDT [facility] [address] [place] [phone] Discharge Disposition: Home or Self Care 11/27/2024 10:17 PM EDT - 11/28/2024 8:54 AM EDT [facility] [address] [place] [phone] Discharge Disposition: Home or Self Care 11/26/2024 9:40 PM EDT - 11/27/2024 2:06 AM EDT [facility] [address] [place] [address] Discharge Disposition: Home or Self Care 11/24/2024 11:19 PM EDT - 11/25/2024 1:14 AM EDT [facility] [address] [place] [address] Discharge Disposition: Home or Self Care 11/23/2024 11:27 PM EDT - 11/24/2024 1:10 AM EDT [facility] [address] [place] [address] Urinary retention (Primary Dx) Discharge Disposition: Home or Self Care 11/22/2024 10:08 PM EDT - 11/23/2024 2:55 AM EDT [facility] [address] [place] [address] Discharge Disposition: Home or Self Care 11/18/2024 3:47 AM EDT - 11/18/2024 5:34 AM EDT [facility] [address] [place] [phone] Discharge Disposition: Home or Self Care 11/09/2024 12:37 AM EDT - 11/09/2024 4:23 AM EDT [facility] [address] [place] [phone] Discharge Disposition: Home or Self Care from Last 3 Months Medical History Medical History Date Comments Bipolar 1 disorder ([facility] V24, [facility] V28[facility] Mood disorder ([facility] V24) Hyperactivity of bladder Social History Tobacco [...] LAB HEMETOLOGY METHOD 12/05/2024 12:52 AM EDT [facility] RBC 4.00(L) 4.50 - 5.50 M/mcL LAB HEMETOLOGY METHOD 12/05/2024 12:52 AM EDT [facility] Hemoglobin 12.7(L) 13.5 - 17.5 g/dL LAB HEMETOLOGY METHOD 12/05/2024 12:52 AM [facility] Hematocrit 37.3(L) 42.0 - 54.0 % LAB HEMETOLOGY METHOD 12/05/2024 12:52 AM [facility] MCV 93.7 79.0 - 98.0 FL LAB HEMETOLOGY METHOD 12/05/2024 12:52 AM [facility] MCH 31.9 27.0 - 32.0 pcg LAB HEMETOLOGY METHOD 12/05/2024 12:52 AM [facility] MCHC 34.0 32.0 - 37.0 g/dL LAB HEMETOLOGY METHOD 12/05/2024 12:52 AM [facility] RDW 13.2 11.0 - 15.0 % LAB HEMETOLOGY METHOD 12/05/2024 12:52 AM [facility] Platelets 207 130 - 400 K/mcL LAB HEMETOLOGY METHOD 12/05/2024 12:52 AM [facility] MPV 9.4 7.0 - 11.0 FL LAB HEMETOLOGY METHOD 12/05/2024 12:52 AM [facility] NRBC 0.0 <1.0 % LAB HEMETOLOGY METHOD 12/05/2024 12:52 AM [facility] NRBC Absolute 0.00 <0.10 K/mcL LAB HEMETOLOGY METHOD 12/05/2024 12:52 AM [facility] Neutrophils Relative 56.8 % LAB HEMETOLOGY METHOD 12/05/2024 12:52 AM [facility] Lymphocytes Relative 27.7 % LAB HEMETOLOGY METHOD 12/05/2024 12:52 AM [facility] Monocytes Relative 11.1 % LAB [facility]OLOGY [facility] Eosin[facility] Relative 3.3 % [facility] Basophils Relative 0.8 % LAB HEMETOLOGY METHOD 12/05/2024 12:52 AM [facility] Immature Granulocytes Relative 0.3 % LAB HEMETOLOGY METHOD 12/05/2024 12:52 AM EDT [facility] Neutrophils Absolute 4.19 1.50 - 7.00 K/mcL LAB HEMETOLOGY METHOD 12/05/2024 12:52 AM [facility] Lymphocytes Absolute 2.04 1.00 - 5.00 K/mcL LAB HEMETOLOGY METHOD 12/05/2024 12:52 AM [facility] Monocytes Absolute 0.82 0.20 - 1.00 K/mcL LAB HEMETOLOGY METHOD [facility] Eosinophils Absolute 0.24 0.00 - 0.50 K/mcL LAB HEMETOLOGY METHOD 12/05/2024 12:52 AM [facility] Basophils Absolute 0.06 0.00 - 0.20 K/mcL LAB HEMETOLOGY METHOD 12/05/2024 12:52 AM [facility] Immature Granulocytes Absolute 0.02 0.00 - 0.03 K/mcL LAB HEMETOLOGY METHOD 12/05/2024 12:52 AM T [facility] Blood Venous blood specimen / Unknown Venipuncture / Unknown 12/05/2024 12:00 AM EDT 12/05/2024 12:45 AM EDT us Dalila Alberto MD LAB BLOOD ORDERABLES Fin al Result [facility] [address] [place] [address], * (ABNORMAL) Comprehensive metabolic panel (12/05/2024 12:00 AM EDT) Sodium 139 133 - 145 mmol/L LAB CHEMISTRY METHOD 12/05/2024 1:25 AM [facility] Potassium 3.6 3.5 - 5.5 mmol/L LAB CHEMISTRY METHOD 12/05/2024 1:25 AM [facility] Chloride 108 96 - 110 mmol/L LAB CHEMISTRY METHOD 12/05/2024 1:25 AM [facility] CO2 26 21 - 32 mmol/L LAB CHEMISTRY METHOD 12/05/2024 1:25 AM [facility] Anion Gap 5 3 - 11 LAB CHEMISTRY METHOD 12/05/2024 1:25 AM [facility] Glucose 80 70 - 100 mg/dL LAB CHEMISTRY METHOD 12/05/2024 1:25 AM [facility] BUN 8 5 - 25 mg/dL LAB CHEMISTRY METHOD 12/05/2024 1:25 AM [facility] Creatinine 0.69(L) 0.70 - 1.30 mg/dL LAB CHEMISTRY METHOD 12/05/2024 1:25 AM [facility] eGFR 107 >=60 mL/min/1. 73m2 LAB CHEMISTRY METHOD 12/05/2024 1:25 AM [facility] Comment:Calculation based on the Chronic Kidney Disease Epidemiology Collaboration (CKD-EPI) equation refit without adjustment for race. BUN/Creatinine Ratio 11.6 LAB CHEMISTRY METHOD 12/05/2024 1:25 AM [facility] Calcium 8.6 8.5 - 10.5 mg/dL LAB CHEMISTRY METHOD 12/05/2024 1:25 AM [facility] AST (SGOT) 13 10 - 42 unit/L LAB CHEMISTRY METHOD 12/05/2024 1:25 AM [facility] ALT (SGPT) 16 10 - 60 unit/L LAB CHEMISTRY METHOD 12/05/2024 1:25 AM EDT [facility] Alkaline Phosphatase 67 42 - 121 unit/L LAB CHEMISTRY METHOD 12/05/2024 1:25 AM [facility] Total Protein 6.3 6.0 - 8.0 g/dL LAB CHEMISTRY METHOD 12/05/2024 1:25 AM [facility] Albumin 3.3 3.2 - 5.0 g/dL LAB CHEMISTRY METHOD 12/05/2024 1:25 AM [facility] Total Bilirubin 0.4 0.0 - 1.4 mg/dL LAB CHEMISTRY METHOD 12/05/2024 1:25 AM [facility] Blood Venous blood specimen / Unknown Venipuncture / Unknown 12/05/2024 12:00 AM EDT 12/05/2024 12:45 AM EDT Dalila Alberto MD LAB BLOOD ORDERABLES Fin al Result [facility] [address] [place] [address], * (ABNORMAL) Urinalysis with reflex microscopic and culture (11/23/2024 11:28 PM EDT) Specific [place] Urine 1.007 1.003 - 1.030 LAB URINALYSIS - AUTOMATED METHOD 11/24/2024 12:11 AM [facility] pH, Urine 6.5 5.0 - 8.0 pH LAB URINALYSIS - AUTOMATED METHOD 11/24/2024 12:11 AM [facility] Leukocytes, Urine Moderate(A) Negative LAB URINALYSIS - AUTOMATED METHOD 11/24/2024 12:11 AM [facility] Nitrite, Urine Negative Negative LAB URINALYSIS - AUTOMATED METHOD 11/24/2024 12:11 AM [facility] Protein, Urine Negative <=Trace mg/dL LAB URINALYSIS - AUTOMATED METHOD 11/24/2024 12:11 AM [facility] Glucose, Urine Negative Negative mg/dL LAB URINALYSIS - AUTOMATED METHOD 11/24/2024 12:11 AM [facility] Ketones, Urine Negative Negative mg/dL LAB URINALYSIS - AUTOMATED METHOD 11/24/2024 12:11 AM [facility] Urobilinogen , Urine 0.2 0.2 - 1.0 mg/dL LAB URINALYSIS - AUTOMATED METHOD 11/24/2024 12:11 AM [facility] Bilirubin, Urine Negative Negative LAB URINALYSIS - AUTOMATED METHOD 11/24/2024 12:11 AM [facility] Blood, Urine Negative Negative LAB URINALYSIS - AUTOMATED METHOD 11/24/2024 12:11 AM [facility] RBC, Urine 1.3 0 - 4 /HPF LAB URINALYSIS - AUTOMATED METHOD 11/24/2024 12:11 AM [facility] WBC, Urine 8.1(H) 0 - 4 /HPF LAB URINALYSIS - AUTOMATED METHOD 11/24/2024 12:11 AM [facility] Squamous Epithelial, Urine 14 0 - 60 /LPF LAB URINALYSIS - AUTOMATED METHOD 11/24/2024 12:11 AM [facility] Bacteria, Urine Negative Negative /HPF LAB URINALYSIS - AUTOMATED METHOD 11/24/2024 12:11 AM [facility] Hyaline Casts, Urine 0.4 0 - 3 /LPF LAB URINALYSIS - AUTOMATED METHOD 11/24/2024 12:11 AM [facility] Urine Urine specimen obtained by clean catch procedure / Unknown Non-blood Collection / Unknown 11/23/2024 11:28 PM EDT 11/24/2024 12:03 AM EDT Ming Love MD LAB URINE ORDERABLES Final Res ult Performing Organization Address City/[facility]/ZIP Co de Phone Number [facility] [address] [place] [address], [place] [phone] * [facility] urine culture tube (11/23/2024 11:28 PM EDT) Extra Tube Hold for add-ons. 11/25/2024 1:01 AM EDT [facility] Comment:Auto resulted. Urine Urine specimen obtained by clean catch procedure / Unknown Non-blood Collection / Unknown 11/23/2024 11:28 PM EDT 11/24/2024 12:03 AM EDT Ming Love MD LAB URINE ORDERABLES Final Res ult Performing Organization Address [facility]/ZIP Co de Phone Number [facility] [address] [place] [address], [place] [phone] * Culture urine (11/23/2024 11:28 PM EDT) Culture, Urine <10,000 CFU/mL gram positive cocci, insignificant count, no further workup 11/25/2024 10:10 AM EDT [facility] Urine Urine specimen obtained by clean catch procedure / Unknown Non-blood Collection / Unknown 11/23/2024 11:28 PM EDT 11/24/2024 12:11 AM EDT Ming Love MD LAB MICROBIOLOGY - GENERAL ORD ERABLES Final Result Performing Organization Address City/[facility]/ZIP Co de Phone Number [facility] [address] [place] [address], [place] [phone] from Last 3 Months Insurance [id number] [address] MEDICARE MEDICAID - [place] Care Teams Pie Crust Mixer Relationship Specialty Start Date End Date Dk Rodriguez MD [address] [place] [address] [address] [place], [place] PCP - General Internal Medicine 07/16/24
--- NOTE | 2025-01-26 21:27 | PC.NURSE ---
pt had 526cc of urine per bladder scan. RN asked provider for an order to straight cath pt. OK the order for straight cath. informed RN that this pt usually straight caths himself. RN asked pt kindly if he would like to do it himself. Pt declined and stated he's never straight cath himself and doesn't know how. RN assisted w/ the straight cath w/ DOMINICK ruiz at the bedside- and during the process the urine was not coming out - pt was getting an erection. Urine then began coming out slowly. Pt had 600ccs post cath. made aware.
[2025-01-26 21:50] LABS: Appearance Urine Clear; Glucose Urine UA Negative (Negative); PH 6.0 (5.0-9.0); Specific Gravity - Urine <= 1.005 (1.005-1.025); UMIC TRIGGER UACC YES
[2025-01-26 22:02] LABS: Cannabinoid Screen Urine Not Detected (Not Detect)
[2025-01-26 22:30] VITALS: BP 108/74; PULSE 106; RESP 20; TEMP 35.9; O2SAT 97
== END 2025-01-26 22:32 | disposition home or self-care (01) ==
PROVIDERS: Physician Assistant; Emergency Provider Emergency Medicine; PCP Internal Medicine
DX: N31.2 Flaccid neuropathic bladder, not elsewhere classified (principal); Z76.5 Malingerer [conscious simulation]; F20.9 Schizophrenia, unspecified; Z79.899 Other long term (current) drug therapy
CPT/HCPCS: 80307; 81001; 99284

== ENCOUNTER 2025-01-29 02:40 | Emergency (ER) | payer MEDICARE, MEDICAID, SELFPAY ==
--- OUTSIDE RECORDS SUMMARY | 2025-01-28 21:14 | XMS_ITS | Encounter Summary ---
Author Organization [facility] Address [address] [place] [address] Care Team Providers Care Shuttle Route Vehicle Operator Name Role Phone Dk Rodriguez MD Primary Care Provider + [phone] Reason for Visit * Reason Comments Male Problem My bladder feels fu ll Encounter Details Date Type Department Care Team (Late st Contact Info) Description 01/28/2025 9:14 PM EDT - 01/28/2025 11:28 PM EDT Emergency [facility] Emergency [address] [place] [address] Discharge Disposition: Home or Self [...] Sign Reading Time Taken Comments Blood Pressure 117/63 01/28/2025 9:15 PM EDT Pulse 102 01/28/2025 9:15 PM EDT Temperature 36.7 C (98.1 F) 01/28/2025 9:15 PM EDT Respiratory Rate 18 01/28/2025 9:15 PM EDT Oxygen Saturation 97% 01/28/2025 9:15 PM EDT Inhaled Oxygen Concentration - - Weight 63.5 kg (140 lb) 01/28/2025 9:15 PM EDT Height 175.3 cm (5' 9 ) 01/28/2025 9:15 PM EDT Body Mass Index 20.67 01/28/2025 9:15 PM EDT documented in this encounter Functional Status * Are you deaf or do you have serious difficulty hearing? Answer Date of Assessment Author No 11/24/2024 1:09 AM EDT Taye Wallis RN * Are you blind or do you have serious difficulty seeing, even when wearing glasses? Answer Date of Assessment Author No 11/24/2024 1:09 AM EDT Taye Wallis RN * Do you have serious difficulty walking or climbing stairs? Answer Date of Assessment Author No 11/24/2024 1:09 AM EDT Taye Wallis RN * Do you have serious difficulty dressing or bathing? Answer Date of Assessment Author No 11/24/2024 1:09 AM EDT Taye Wallis RN * Because of a physical, mental, or emotional condition, do you have serious difficulty doing errandsalone such as visiting the doctor? Answer Date of Assessment Author No 11/24/2024 1:09 AM EDT Taye Wallis RN documented as of this encounter Mental Status * Because of a physical, mental, or emotional condition, do you have serious difficulty concentrating, remembering, or making decisions? (5 years old or older) Answer Entry Date Author No 11/24/2024 1:09 AM Taye Gerard RN documented in this encounter Discharge Disposition Disposition Code Departure Means Destination Comment s Home or Self Care CNR X 3 documented in this encounter Progress Notes * Mariaelena Ackerman RN - 01/28/2025 10:39 PM EDT CNR X 3 * Stephy Ibanez RN - 01/28/2025 9:18 PM EDT Pt states his bladder feels full and its making him feel funny . documented in this encounter Plan of Treatment Not on file documented as of this encounter Visit Diagnoses Not on filedocumented in this encounter Care Teams Shuttle Route Vehicle Operator Relationship Specialty Start Date End Date Dk Rodriguez MD [address] [place] [address] Dr [address] COY Lucero PCP - General Internal Medicine 07/16/24 documented as of this encounter
[2025-01-29 02:45] VITALS: BP 115/68; PULSE 86; RESP 15; TEMP 36.9; O2SAT 99; BMI 19.1
[2025-01-29 03:00] LABS: MANUAL DIFF FLAG NO
[2025-01-29 03:01] LABS: Hematocrit 37.0 % (42.0-52.0); Hemoglobin 13.0 g/dl (14.0-18.0); Imm Gran Abs Auto 0.02 X10*3/uL (0.00-0.03); Imm Gran Pct Auto 0.3 % (0.0-0.4); Lymphocytes Absolute Auto 2.0 X10*3/uL (1.2-4.9); Mean Corpuscular HGB Conc 35.1 g/dl (31.0-36.0); Mean Corpuscular Hemoglobin 32.3 pg (27.0-33.0); Mean Corpuscular Volume 92.0 fL (80.0-98.0); NRBC Abs Auto 0.000 X10*3/uL (0.0-0.012); NRBC Pct Auto 0.0 /100WBC (0.0-0.2); Platelet Count 171 X10*3/uL (160-400); Red Blood Count 4.02 X10*6/uL (4.60-5.80); White Blood Count 7.6 X10*3/uL (4.8-10.8)
--- OUTSIDE RECORDS SUMMARY | 2025-01-29 03:13 | XMS_ITS | Clinical Summary ---
Author Organization [facility] Address [address] [place] [address] Care Team Providers Care Grinder Needle Tip Name Role Phone Patient, Has No Pcp [...] (01/03/2024 2:32 PM EDT): Presents from [facility] in the setting of urinary retention and [...] (01/03/2024 10:49 AM EDT): Presented from [facility] with hyponatremia (initially 123). Also had [...] (01/02/2024 11:43 AM EDT): Presents from [facility] in the setting of urinary retention and [...] Seroquel 25 mg twice daily Presents from [facility]'s forensic unit with documented history of schizophrenia. 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 Per documentation from [facility] patient has seen urology at [facility] in [place]. He was started on Flomax outpatient. In [...] (01/02/2024 11:43 AM EDT): Paperwork from the [facility] indicates history of BPH with prior need for intermittent catheterization requiring urology evaluation in the past, records not available in our system). Per documentation from [facility] patient has seen urology at [facility] in [place]. He was started on Flomax outpatient. In [...] 76 01/29/2024 8:18 AM EDT Temperature 36.8 C (98.2 F) 01/03/2024 2:09 PM EDT Respiratory Rate 18 01/03/2024 2:09 PM EDT [...] Health Tammy ual Screening 06/05/2024 Influenza Vaccine (#1) 2025 , 04/11/2018, 02/17/2017, Additional history exists DTaP,Tdap,and Td Vaccines (3 - Td or Tdap) 02/28/2029 02/28/2019, 03/22/2014, 03/22/2014, Additional history exists RSV Vaccine (60+ years old a nd patients) (1 - 1-dose 75+ series) 2040 Insurance [facility] MEDICARE [facility] Advance Directives * Full Code (Latest Code Status on File) Date Activated Date Inactivated Comments 12/30/2023 7:22 PM 01/03/2024 8:48 PM * Presumed Full Code Date Activated Date Inactivated Comments 12/30/2023 7:00 PM 12/30/2023 7:22 PM Care Teams Grinder Needle Tip Relationship Specialty Start Date End Date Patient, Has No Pcp Or Ref DO NOT EDIT THIS RECORD VIA PROVIDER ON THE FLY PCP - General Calender Worker Helper 12/30/23
--- OUTSIDE RECORDS SUMMARY | 2025-01-29 03:13 | XMS_ITS | Encounter Summary ---
Author Organization [facility] Address [address] [place] [address] Care Team Providers Care Machine Stapler Name Role Phone Patient, Has No Pcp Or Ref Primary Care Provider Unavailable Encounter Details Date Type Department Care Team (Late st Contact Info) Description 01/04/2024 Community Orders [facility] EpicCare Link [address] [place] [address] Bethany Lozano, CHANGE COORDINATOR [address] [place] [address] Social History Tobacco Use Types Packs/Day Years [...] on filedocumented in this encounter Care Teams Machine Stapler Relationship Specialty Start Date End Date Patient, Has No Pcp Or Ref DO NOT EDIT THIS RECORD VIA PROVIDER ON THE FLY PCP - General Informatics Educator 12/30/23 documented as of this encounter
--- OUTSIDE RECORDS SUMMARY | 2025-01-29 03:13 | XMS_ITS | Clinical Summary ---
Author Organization [facility] Address [address] [place] [phone] Phone Care Team Providers Care Training Personnel Supervisor Name Role Phone Dk Rodriguez MD Primary Care Provider Allergies No known active allergies Medications No known medications Encounters Date Type Department Care Team Description 01/28/2025 9:14 PM EDT - 01/28/2025 11:28 PM EDT [facility] Emergency [address] [place] [phone] Discharge Disposition: Home or Self Care 01/14/2025 8:53 PM EDT - 01/15/2025 12:26 AM EDT [facility] Emergency [address] [place] [phone] Discharge Disposition: Home or Self Care 01/12/2025 8:45 PM EDT - 01/12/2025 11:57 PM EDT [facility] Emergency [address] [place] [phone] Dilcia Carl MD Discharge Disposition: Left Against Medical Advice 12/04/2024 11:34 PM EDT - 12/05/2024 1:06 AM EDT Emergency [facility] Emergency [address] [place] [phone] Discharge Disposition: Home or Self Care 12/02/2024 10:00 PM EDT - 12/03/2024 12:28 AM EDT [facility] Emergency [address] [place] [phone] Discharge Disposition: Home or Self Care 11/27/2024 10:17 PM EDT - 11/28/2024 8:54 AM EDT [facility] Emergency [address] [place] [phone] Discharge Disposition: Home or Self Care 11/26/2024 9:40 PM EDT - 11/27/2024 2:06 AM EDT [facility] Emergency [address] [place] [phone] Discharge Disposition: Home or Self Care 11/24/2024 11:19 PM EDT - 11/25/2024 1:14 AM EDT [facility] Emergency [address] [place] [phone] Discharge Disposition: Home or Self Care 11/23/2024 11:27 PM EDT - 11/24/2024 1:10 AM EDT [facility] Emergency [address] [place] [phone] Urinary retention (Primary Dx) Discharge Disposition: Home or Self Care 11/22/2024 10:08 PM EDT - 11/23/2024 2:55 AM EDT [facility] Emergency [address] [place] [phone] Discharge Disposition: Home or Self Care 11/18/2024 3:47 AM EDT - 11/18/2024 5:34 AM EDT [facility] Emergency [address] [place] [phone] Discharge Disposition: Home or Self Care 11/09/2024 12:37 AM EDT - 11/09/2024 4:23 AM EDT [facility] Emergency [address] [place] [phone] Discharge Disposition: Home or Self Care from Last 3 Months Medical History Medical History Date Comments Bipolar 1 disorder ([facility] V24, [facility] V28) Mood disorder ([facility] V24) Hyperactivity of bladder Social [...] Mass Index 20.67 01/28/2025 9:15 PM EDT Plan of Treatment Health Maintenance [...] of Health Screening 05/08/2022 COVID-19 Vaccine ( - season) 2024 03/17/2023, 03/31/2021, 07/23/2020, Additional history [...] CBC auto differential (12/05/2024 12:00 AM EDT) [facility] WBC 7.4 4.8 - 10.8 K/[facility] LAB HEMETOLOGY METHOD 12/05/2024 12:52 AM EDT [facility] RBC 4.00(L) 4.50 - 5.50 M/mcL LAB HEMETOLOGY METHOD 12/05/2024 12:52 AM [facility] Hemoglobin 12.7(L) 13.5 - 17.5 g/dL LAB HEMETOLOGY METHOD 12/05/2024 12:52 AM [facility] Hematocrit 37.3(L) 42.0 - 54.0 % LAB HEMETOLOGY METHOD 12/05/2024 12:52 AM [facility] MCV 93.7 79.0 - 98.0 FL LAB HEMETOLOGY METHOD 12/05/2024 12:52 AM [facility] MCH 31.9 27.0 - 32.0 pcg LAB HEMETOLOGY METHOD 12/05/2024 12:52 AM [facility] MCHC 34.0 32.0 - 37.0 g/dL LAB HEMETOLOGY METHOD 12/05/2024 12:52 AM [facility] RDW 13.2 11.0 - 15.0 % LAB HEMETOLOGY METHOD 12/05/2024 12:52 AM [facility] Platelets 207 130 - 400 K/mcL LAB HEMETOLOGY METHOD 12/05/2024 12:52 AM [facility] MPV 9.4 7.0 - 11.0 FL LAB HEMETOLOGY METHOD 12/05/2024 12:52 AM [facility] NRBC 0.0 <1.0 % LAB HEMETOLOGY METHOD 12/05/2024 12:52 AM [facility] NRBC Absolute 0.00 <0.10 K/mcL LAB HEMETOLOGY METHOD 12/05/2024 12:52 AM [facility] Neutrophils Relative 56.8 % LAB HEMETOLOGY METHOD 12/05/2024 12:52 AM [facility] Lymphocytes Relative 27.7 % LAB HEMETOLOGY METHOD 12/05/2024 12:52 AM [facility] Monocytes Relative 11.1 % LAB HEMETOLOGY METHOD 12/05/2024 12:52 AM [facility] Eosinophils Relative 3.3 % LAB HEMETOLOGY METHOD 12/05/2024 12:52 AM [facility] Basophils Relative 0.8 % LAB HEMETOLOGY METHOD 12/05/2024 12:52 AM [facility] Immature Granulocytes Relative 0.3 % LAB HEMETOLOGY METHOD 12/05/2024 12:52 AM [facility] Neutrophils Absolute 4.19 1.50 - 7.00 K/mcL LAB HEMETOLOGY METHOD 12/05/2024 12:52 AM [facility] Lymphocytes Absolute 2.04 1.00 - 5.00 K/mcL LAB HEMETOLOGY METHOD 12/05/2024 12:52 AM [facility] Monocytes Absolute 0.82 0.20 - 1.00 K/mcL LAB HEMETOLOGY METHOD 12/05/2024 12:52 AM [facility] Eosinophils Absolute 0.24 0.00 - 0.50 K/mcL LAB HEMETOLOGY METHOD 12/05/2024 12:52 AM [facility] Basophils Absolute 0.06 0.00 - 0.20 K/mcL LAB HEMETOLOGY METHOD 12/05/2024 12:52 AM [facility] Immature Granulocytes Absolute 0.02 0.00 - 0.03 K/mcL LAB HEMETOLOGY METHOD 12/05/2024 12:52 AM [facility] Blood Venous blood specimen / Unknown Venipuncture / Unknown 12/05/2024 12:00 AM EDT 12/05/2024 12:45 AM EDT us Dalila Alberto MD LAB BLOOD ORDERABLES Fin al Result [facility] [address] [place] [address], * (ABNORMAL) Comprehensive metabolic panel (12/05/2024 12:00 AM EDT) Sodium 139 133 - 145 mmol/L LAB CHEMISTRY METHOD 12/05/2024 1:25 AM [facility] Potassium 3.6 3.5 - 5.5 mmol/L LAB CHEMISTRY METHOD 12/05/2024 1:25 AM [facility] Chloride 108 96 - 110 mmol/L LAB CHEMISTRY METHOD 12/05/2024 1:25 AM [facility] CO2 26 21 - 32 mmol/L LAB CHEMISTRY METHOD 12/05/2024 1:25 AM [facility] Anion Gap 5 3 - 11 LAB CHEMISTRY METHOD 12/05/2024 1:25 AM [facility] Glucose 80 70 - 100 mg/dL LAB CHEMISTRY METHOD 12/05/2024 1:25 AM [facility] BUN 8 5 - 25 mg/dL LAB CHEMISTRY METHOD 12/05/2024 1:25 AM [facility] Creatinine 0.69(L) 0.70 - 1.30 mg/dL LAB CHEMISTRY METHOD 12/05/2024 1:25 AM [facility] eGFR 107 >=60 mL/min/1. 73m2 LAB CHEMISTRY METHOD 12/05/2024 1:25 AM [facility] Comment:Calculation based on the Chronic Kidney Disease Epidemiology Collaboration (CKD-EPI) equation refit without adjustment for race. BUN/Creatinine Ratio 11.6 LAB CHEMISTRY METHOD 12/05/2024 1:25 AM [facility] Calcium 8.6 8.5 - 10.5 mg/dL LAB CHEMISTRY METHOD 12/05/2024 1:25 AM [facility] AST (SGOT) 13 10 - 42 unit/L LAB CHEMISTRY METHOD 12/05/2024 1:25 AM [facility] ALT (SGPT) 16 10 - 60 unit/L LAB CHEMISTRY METHOD 12/05/2024 1:25 AM [facility] Alkaline Phosphatase 67 42 - 121 unit/L LAB CHEMISTRY METHOD 12/05/2024 1:25 AM [facility] Total Protein 6.3 6.0 - 8.0 g/dL LAB CHEMISTRY METHOD 12/05/2024 1:25 AM [facility] Albumin 3.3 3.2 - 5.0 g/dL LAB CHEMISTRY METHOD 12/05/2024 1:25 AM [facility] Total Bilirubin 0.4 0.0 - 1.4 mg/dL LAB CHEMISTRY METHOD 12/05/2024 1:25 AM [facility] Blood Venous blood specimen / Unknown Venipuncture / Unknown 12/05/2024 12:00 AM EDT 12/05/2024 12:45 AM EDT Dalila Alberto MD LAB BLOOD ORDERABLES Fin al Result [facility] [address] [place] [address], * (ABNORMAL) Urinalysis with reflex microscopic and culture (11/23/2024 11:28 PM EDT) Specific [place] Urine 1.007 1.003 - 1.030 LAB URINALYSIS - AUTOMATED METHOD 11/24/2024 12:11 AM [facility] pH, Urine 6.5 5.0 - 8.0 pH LAB URINALYSIS - AUTOMATED METHOD 11/24/2024 12:11 AM [facility] Leukocytes, Urine Moderate(A) Negative LAB URINALYSIS - AUTOMATED METHOD 11/24/2024 12:11 AM [facility] Nitrite, Urine Negative Negative LAB URINALYSIS - AUTOMATED METHOD 11/24/2024 12:11 AM [facility] Protein, Urine Negative <=Trace mg/dL LAB URINALYSIS - AUTOMATED METHOD 11/24/2024 12:11 AM [facility] Glucose, Urine Negative Negative mg/dL LAB URINALYSIS - AUTOMATED METHOD 11/24/2024 12:11 AM [facility] Ketones, Urine Negative Negative mg/dL LAB URINALYSIS - AUTOMATED METHOD 11/24/2024 12:11 AM [facility] Urobilinogen , Urine 0.2 0.2 - 1.0 mg/dL LAB URINALYSIS - AUTOMATED METHOD 11/24/2024 12:11 AM [facility] Bilirubin, Urine Negative Negative LAB URINALYSIS - AUTOMATED METHOD 11/24/2024 12:11 AM [facility] Blood, Urine Negative Negative LAB URINALYSIS - AUTOMATED METHOD 11/24/2024 12:11 AM [facility] RBC, Urine 1.3 0 - 4 /HPF LAB URINALYSIS - AUTOMATED METHOD 11/24/2024 12:11 AM [facility] WBC, Urine 8.1(H) 0 - 4 /HPF LAB URINALYSIS - AUTOMATED METHOD 11/24/2024 12:11 AM [facility] Squamous Epithelial, Urine 14 0 - 60 /LPF LAB URINALYSIS - AUTOMATED METHOD 11/24/2024 12:11 AM [facility] Bacteria, Urine Negative Negative /HPF LAB URINALYSIS - AUTOMATED METHOD 11/24/2024 12:11 AM [facility] Hyaline Casts, Urine 0.4 0 - 3 /LPF LAB URINALYSIS - AUTOMATED METHOD 11/24/2024 12:11 AM [facility] Urine Urine specimen obtained by clean catch procedure / Unknown Non-blood Collection / Unknown 11/23/2024 11:28 PM EDT 11/24/2024 12:03 AM EDT Ming Love MD LAB URINE ORDERABLES Final Res ult [facility] [address] [place] [address], [place] [phone] * [facility] urine culture tube (11/23/2024 11:28 PM EDT) Extra Tube Hold for add-ons. 11/25/2024 1:01 AM EDT [facility] Comment:Auto resulted. Urine Urine specimen obtained by clean catch procedure / Unknown Non-blood Collection / Unknown 11/23/2024 11:28 PM EDT 11/24/2024 12:03 AM EDT Ming Love MD LAB URINE ORDERABLES Final Res ult Performing Organization Address City/[facility]/ZIP Co de Phone Number [facility] [address] [place] [address], [place] [phone] * Culture urine (11/23/2024 11:28 PM EDT) Culture, Urine <10,000 CFU/mL gram positive cocci, insignificant count, no further workup 11/25/2024 10:10 AM EDT [facility] Urine Urine specimen obtained by clean catch procedure / Unknown Non-blood Collection / Unknown 11/23/2024 11:28 PM EDT 11/24/2024 12:11 AM EDT Ming Love MD LAB MICROBIOLOGY - GENERAL ORD ERABLES Final Result Performing Organization Address City/[facility]/ZIP Co de Phone Number [facility] [address] [place] [address], [place] [phone] from Last 3 Months [place] [id number] [address] MEDICARE MEDICAID - [place] Care Teams Training Personnel Supervisor Relationship Specialty Start Date End Date Dk Rodriguez MD [address] [place] [address] [place] [address] [place] PCP - General Internal Medicine 07/16/24
[2025-01-29 03:14] LABS: Alanine Aminotransferase 20 U/L (0-40); Albumin Level 4.0 g/dL (3.5-5.0); Alkaline Phosphatase 60 U/L (39-117); Anion Gap 13 (12-20); Aspartate Amino Transferase 25 U/L (5-37); Blood Urea Nitrogen 10 mg/dL (9-16); Calcium 8.8 mg/dL (8.4-10.2); Carbon Dioxide 25 mmol/L (22-29); Chloride 109 mmol/L (96-108); Creatinine Clr Calc Pharmacy 90.0; Estimated Glomerular Filt Rate > 60; Lipase 33 U/L (8-78); Potassium 4.2 mmol/L (3.3-5.1); Sodium 143 mmol/L (135-145); Total Protein 6.6 g/dL (6.5-8.0)
[2025-01-29 04:00] VITALS: BP 109/68; PULSE 74; RESP 18; TEMP 36.5; O2SAT 98
--- NOTE | 2025-01-29 05:13 | PC.NURSE ---
PT found to be masturbating in his room. Redirected with no issues. D/t pts hx of sexually inapproprpatie behaviors and sefl-cathing at home, PT was given kit as ordered and able to successfully self-cath. 1000mls of output.
--- NOTE | 2025-01-29 05:58 | ED.GENADULT ---
HPI - General Adult General Chief complaint: General Medical Stated complaint: not feeling well Time Seen by Provider: 01/29/25 05:58 Source: patient and old records reviewed Mode of arrival: ambulatory Limitations: no limitations History of Present Illness ED Provider: Dr. Dalila Alberto HPI narrative: 59-year-old male very well known to this emergency department with extensive medical history including the PHP neurogenic bladder, anxiety, living in a correction presenting with vague symptoms. States that he feels anxious and is having a hard time emptying his bladder. Does not want to go back to his correction because he does not feel ?treated well there.? Unable to give me any other details. He was just seen here earlier today for the same complaints. He has been here almost every day this month with these complaints. Related Data Home Medications ?Medication ?Instructions ?Recorded ?Confirmed aripiprazole 30 mg tablet 30 mg PO DAILY 01/31/25 02/03/25 lorazepam 1 mg tablet 1 mg PO DAILY PRN Anxiety 01/31/25 02/03/25 quetiapine 100 mg tablet 100 mg PO BEDTIME 01/31/25 02/03/25 quetiapine 50 mg tablet 50 mg PO BID 01/31/25 02/03/25 olanzapine 10 mg tablet 10 mg PO TID 02/03/25 02/03/25 Previous Rx's ?Medication ?Instructions ?Recorded atorvastatin 20 mg tablet 20 mg PO QPM 90 days #90 tabs 01/10/25 tamsulosin 0.4 mg capsule 0.4 mg PO QAM 90 days #90 caps 01/10/25 Allergies Allergy/AdvReac Type Severity Reaction Status Date / Time No Known Allergies (NO KNOWN Allergy Unknown UNKNOWN Verified 02/02/25 13:44 ALLERGIES) Review of Systems Review of Systems: as per HPI, full review of systems performed and negative but for the above mentioned pertinent positives and negatives. [facility] Past Medical History Medical History Smoker GERD without esophagitis Tubular adenoma of colon (~2018) Personal history of nicotine dependence Constipation Back pain Schizoaffective disorder, bipolar type Anxiety Benign prostatic hyperplasia with lower urinary tract symptoms Pure hypercholesterolemia Thought disorder Bipolar 1 disorder Mood disorder Surgical History History of colonoscopy (~04/2019) History of prostate surgery (~04/2019) History of open reduction and internal fixation (ORIF) procedure (~08/2018) Family History Family History Father Lung cancer BPH (benign prostatic hyperplasia) Mother Dementia Brother Myocardial infarction Other Mental health problem Substance abuse Social History Social History Household Members: Other Housing: Other Housing Other:: Assisted Do you presently have visiting nurse or other home services: No Unable to assess alcohol history related to: Unknown Alcohol intake: never Patient Tobacco Use Status: Current everyday Tobacco user Tobacco use type: Cigarette Cigarette Packs Per Day: 0.5 Cigarettes Per Day: 10.0 Years Smoked: 10 Smoked in Last 30 Days: Yes e-Cigarette/Vaping Use: Currently Using Patient Interested in Nicotine Replacement: Yes Patient Given Instructions on How to Stop Smoking: No (Pt declined, states he is uninterested in smoking cessation) Second Hand Smoke Exposure: No Currently Displaying Signs/Symptoms of Drug Intoxication Withdrawal: No Have you been hit, kicked, punched, or otherwise hurt by someone within the past year? If so, by whom?: No Do you feel safe in your current relationship?: No Current Relationship Is there a partner from a previous relationship who is making you feel unsafe now?: No Are you made to feel afraid or neglected: No Spiritual Healthcare Practices: Synagogue Advance Directives: Yes Advance Directives Information Provided: Yes Advance Directives on File: No Do you have thoughts of harming others: None Do you have a plan to hurt others: No Plan Recently lost weight without trying: Yes How much weight loss: Unsure Eating poorly because of decreased appetite: Yes Nutrition screen score: 5 Nutrition Risks: Anorexia Poor oral hygiene: No service: No Current occupational status: employed Current occupation: [employer] Sexual orientation: Straight/Heterosexual Cognitive needs: No Hearing needs: No Vision needs: Yes Physical Exam ED Exam Exam: GENERAL: Chronically ill-appearing, conversant, no acute distress. SKIN: Normal skin color for ethnicity, warm, dry, no rashes noted. HEENT: Normocephalic, atraumatic, no stridor, posterior oropharynx nonerythematous, EOMI. NECK: Soft, supple, full ROM, midline structures nontender, no step-offs, no deformities, no lymphadenopathy. CHEST: Heart regular rate and rhythm, no murmurs, symmetric chest rise and fall. PULMONARY: Clear to auscultation bilaterally, no labored breathing, no wheezes/rhales/ rhonchi. ABDOMINAL: Soft, nondistended, nontender, positive bowel sounds in all quadrants. : Deferred. MUSCULOSKELETAL: Normal tone, full range of motion, no deformities, no peripheral edema. NEURO: Alert and oriented to person, CN II through XII intact, no focal neurologic deficits. PSYCHIATRIC: Flat affect, fluid speech, anxious demeanor. Vital Signs: Vital Signs - 24 hr 01/29/25 02:45 01/29/25 04:00 Temperature 98.5 F 97.7 F Pulse Rate 86 74 Respiratory Rate 15 18 Blood Pressure 115/68 109/68 Pulse Oximetry 99 98 Oxygen Delivery Method Room Air Room Air BMI result Body Mass Index 19.1 Medical Decision Making Medical Decision Making [facility] Narrative: Balbir is very well known to this emergency department. I had an extensive discussion with him regarding his frequent visits to the emergency department today and reiterated the fact that we would not be performing a straight catheterization on him today. He was given the supplies to do it himself and drained about 500 cc from his bladder. He is now requesting discharge. Differential Diagnosis Differential Diagnoses: The differential diagnosis associated with the presentation includes (neurogenic bladder, BPH, malingering) Lab Data [facility] Lab Attestation statement: I reviewed the patient's lab results. 01/29/25 02:54 01/29/25 02:54 Labs: Lab Results 01/29/25 Range/Units 02:54 WBC 7.6 (4.8-10.8) X10*3/uL RBC 4.02 L (4.60-5.80) X10*6/uL Hgb 13.0 L (14.0-18.0) g/dl Hct 37.0 L (42.0-52.0) % MCV 92.0 (80.0-98.0) fL MCH 32.3 (27.0-33.0) pg MCHC 35.1 (31.0-36.0) g/dl RDW 14.1 (11.0-16.0) % Plt Count 171 (160-400) X10*3/uL MPV 9.5 (9.4-12.4) fL Immature Gran % (Auto) 0.3 (0.0-0.4) % Neut % (Auto) 59.3 (45-73) % Lymph % (Auto) 26.0 (20-40) % [place] % (Auto) 10.3 (2-11) % Eos % (Auto) 3.3 (0-4) % Baso % (Auto) 0.8 (0-2) % Lymph # (Auto) 2.0 (1.2-4.9) X10*3/uL [place] # (Auto) 0.8 (0.1-1.2) X10*3/uL Eos # (Auto) 0.3 (0.0-0.4) X10*3/uL Baso # (Auto) 0.1 (0.0-0.2) X10*3/uL Abs Immat Gran (auto) 0.02 (0.00-0.03) X10*3/uL Absolute Neuts (auto) 4.5 (2.0-8.3) x10*3/uL Absolute Nucleated RBC 0.000 (0.0-0.012) X10*3/uL Nucleated RBC % (auto) 0.0 (0.0-0.2) /100WBC Sodium 143 (135-145) mmol/L Potassium 4.2 (3.3-5.1) mmol/L Chloride 109 H (96-108) mmol/L Carbon Dioxide 25 (22-29) mmol/L Anion Gap 13 (12-20) BUN 10 (9-16) mg/dL Creatinine 0.80 (0.5-1.4) mg/dL Estim Creat Clear Calc 90.0 Estimated GFR > 60 Random Glucose 94 (60-115) mg/dL Calcium 8.8 (8.4-10.2) mg/dL Total Bilirubin 0.2 (0.0-1.0) mg/dL AST 25 (5-37) U/L ALT 20 (0-40) U/L Alkaline Phosphatase 60 (39-117) U/L Total Protein 6.6 (6.5-8.0) g/dL Albumin 4.0 (3.5-5.0) g/dL Lipase 33 (8-78) U/L External Record Review External record reviewed: Inpatient record and Prior outpatient labs Chronic Conditions Patient?s care impacted by: Other (BPH, anxiety) Social Determinants Patient?s care significantly limited by Social Determinants of Health including: Problems related to primary support group and Other Social Determinant of Health Discharge Plan Discharge Clinical Impression: Malingering Patient Disposition: Home, Self-Care Additional Instructions: Follow-up with your doctor as an outpatient. Continue to self cath at home. You do not need to come to the emergency department for self catheterization. Prescriptions: No Action quetiapine 100 mg tablet 100 mg PO BEDTIME lorazepam 1 mg tablet 1 mg PO DAILY PRN (Reason: Anxiety) aripiprazole 30 mg tablet 30 mg PO DAILY quetiapine 50 mg tablet 50 mg PO BID olanzapine 10 mg tablet 10 mg PO TID tamsulosin 0.4 mg capsule 0.4 mg PO QAM 90 Days Qty: 90 0RF atorvastatin 20 mg tablet 20 mg PO QPM 90 Days Qty: 90 3RF Interventions: ED Discharge Assessment Last Done: 01/29/25 06:15 Discharge Date/Time: 01/29/25 06:15 Print Language: Somali
[2025-01-29 06:15] VITALS: BP 109/68; PULSE 74; RESP 18; TEMP 36.5; O2SAT 98
== END 2025-01-29 06:15 | disposition home or self-care (01) ==
PROVIDERS: Emergency Provider Emergency Medicine; PCP Internal Medicine
DX: Z76.5 Malingerer [conscious simulation] (principal); F41.1 Generalized anxiety disorder; N40.0 Benign prostatic hyperplasia without lower urinary tract symptoms; F17.210 Nicotine dependence, cigarettes, uncomplicated; Z71.6 Tobacco abuse counseling
CPT/HCPCS: 36415; 51701; 80053; 83690; 85025; 99283; 99284

== ENCOUNTER 2025-01-31 12:47 | Emergency (ER) | payer MEDICARE, MEDICAID, SELFPAY ==
--- OUTSIDE RECORDS SUMMARY | 2025-01-28 21:14 | XMS_ITS | Encounter Summary ---
Author Organization [facility] Address [address] [place] [address] Care Team Providers Care Lumber Sorter Machine Name Role Phone Dk Rodriguez MD Primary Care Provider + [phone] Reason for Visit * Reason Comments Male Problem My bladder feels fu ll Encounter Details Date Type Department Care Team (Late st Contact Info) Description 01/28/2025 9:14 PM EDT - 01/28/2025 11:[address] [facility] Emergency [address] [place] [address] Discharge Disposition: Home or Self [...] on filedocumented in this encounter Care Teams Lumber Sorter Machine Relationship Specialty Start Date End Date Dk Rodriguez MD [address] [place] [address] Dr [address] COY Lucero PCP - General Internal Medicine 07/16/24 documented as of this encounter
--- OUTSIDE RECORDS SUMMARY | 2025-01-30 20:57 | XMS_ITS | Encounter Summary ---
Author Organization [facility] Address [address] [place] [address] Care Team Providers Care Correction Officer Name Role Phone Dk Rodriguez MD Primary Care Provider [phone] Reason for Visit * Reason Comments Abdominal Pain Abdominal pain 2 wee ks ago Encounter Details Date Type Department Care Team (Late st Contact Info) Description 01/30/2025 8:57 PM EDT - 01/31/2025 12:33 AM EDT Emergency [facility] Emergency [address] [place] [phone] Discharge Disposition: Home or Self Care Social [...] on filedocumented in this encounter Care Teams Correction Officer Relationship Specialty Start Date End Date Dk Rodriguez MD [address] [place] [address] Dr [address] COY Lucero PCP - General Internal Medicine 07/16/24 documented as of this encounter
--- NOTE | ~2025-01-31 | CT_ITS ---
EXAMINATION: CT ABDOMEN AND PELVIS WITH CONTRAST CLINICAL INFORMATION: Lower abdominal pain COMPARISON: April 21, 2022 TECHNIQUE: Multidetector volumetric images were obtained from the superior aspect of the liver through the pubic symphysis following administration 85 mL of Omnipaque 350 intravenous contrast. Sagittal and coronal reformatted images were obtained on the technologist's workstation. Oral contrast: No This CT examination was performed using dose optimization techniques as appropriate, variously including the following: *Automated exposure control *Adjustment of mA and/or kV according to patient size (this includes techniques or standardized protocols for targeted exams where dose is matched to indication/reason for exam; i.e. extremities or head) *Use of iterative reconstruction technique DLP: 394 mGY*cm FINDINGS: LUNG BASES: The visualized lung bases are unremarkable. LIVER, GALLBLADDER, AND BILIARY TREE: The liver is normal in size, shape, and attenuation. No focal hepatic lesion or biliary ductal dilatation is present. The gallbladder is contracted and almost completely empty. PANCREAS: Unremarkable. SPLEEN: Unremarkable. ADRENAL GLANDS: Unremarkable. KIDNEYS AND URETERS: The kidneys are normal in size, shape, and attenuation. No hydronephrosis, hydroureter, or calculi seen. No perinephric stranding. BLADDER: Bladder demonstrates mild wall thickening and is distended. GASTROINTESTINAL TRACT: Moderate stool and gas is present throughout the colon. Appendix is normal. ABDOMINAL WALL: No significant hernia is appreciated. LYMPH NODES: Normal. 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 Facet arthropathy is noted at L4-5 and L5-S1.. CT/CT abdomen pelvis w IV con IMPRESSION: Unremarkable abdomen and pelvis. Degenerative changes are present in the lower thoracic and lower lumbar spine. Fleischner guidelines were followed. Electronically signed by: Norris Jeter MD 01/31/2025 02:36 PM EDT
[2025-01-31 13:10] VITALS: BP 114/64; PULSE 90; RESP 16; TEMP 36.6; O2SAT 97; BMI 21.1
--- NOTE | 2025-01-31 13:11 | ED.GENADULT ---
HPI - General Adult General Chief complaint: Abdominal Pain Stated complaint: abd pain Time Seen by Provider: 01/31/25 13:23 Source: patient and old records reviewed Mode of arrival: ambulatory Limitations: no limitations History of Present Illness ED Provider: NATALIE MCKAY narrative: 59 yo male with PMH of BPH, chronic suprapubic pain, GERD, UTI, straight cath, HLD, schizoaffective d/o here with c/o of again my bladder hurts he notes it starts after eating but it is lower. He staets he is able to straight cath himself no issues. He has no n/v/d no constipation. He has no fevers. This is his 14th visit in 30 days for similar issues. PLEASE SEE COURSE OF MY NOTE MD complaint: abdominal pain Onset (ago): month(s) (2) Location: abdomen Radiation: non-radiation Severity: moderate Pain Consistency: constant Relieving factors: none Exacerbating factors: eating Associated symptoms: denies other symptoms Treatments prior to arrival: none Related Data Home Medications ?Medication ?Instructions ?Recorded ?Confirmed aripiprazole 30 mg tablet 30 mg PO DAILY 01/31/25 01/31/25 lorazepam 1 mg tablet 1 mg PO DAILY PRN Anxiety 01/31/25 01/31/25 quetiapine 100 mg tablet 100 mg PO BEDTIME 01/31/25 01/31/25 quetiapine 50 mg tablet PO BID 01/31/25 Previous Rx's ?Medication ?Instructions ?Recorded atorvastatin 20 mg tablet 20 mg PO QPM 90 days #90 tabs 01/10/25 tamsulosin 0.4 mg capsule 0.4 mg PO QAM 90 days #90 caps 01/10/25 polyethylene glycol 3350 17 17 g PO DAILY #119 grams 01/22/25 gram/dose oral powder (Miralax) Allergies Allergy/AdvReac Type Severity Reaction Status Date / Time No Known Allergies (NO KNOWN Allergy Unknown UNKNOWN Verified 01/31/25 13:12 ALLERGIES) Review of Systems Review of Systems: Constitutional : No Weight loss, No Fever, No Chills ENT/Mouth : No sore throat, No Rhinorrhea Eyes: No Swelling, No Redness Cardiovascular : No Chest Pain, No SOB, NoEdema Respiratory : No Cough, No Sputum, No Wheezing Gastrointestinal : no Nausea, no Vomiting,no Diarrhea, positive abdominal Pain, No Hematochezia, No Melena Genitourinary : No Dysuria, No Urinary Frequency, No Hematuria Musculoskeletal : No joint pain, No Myalgias, No Joint Swelling Skin : No Skin Lesions, No rash Neuro : No Weakness, No Numbness, No Dizziness, No Headache All other systems reviewed and are negative. [facility] Past Medical History Attestation statement: The following information was validated with the patient. Source: old records reviewed Medical History Smoker GERD without esophagitis Tubular adenoma of colon (~2018) Personal history of nicotine dependence Constipation Back pain Schizoaffective disorder, bipolar type Anxiety Benign prostatic hyperplasia with lower urinary tract symptoms Pure hypercholesterolemia Thought disorder Bipolar 1 disorder Mood disorder Surgical History History of colonoscopy (~04/2019) History of prostate surgery (~04/2019) History of open reduction and internal fixation (ORIF) procedure (~08/2018) Family History Family History Father Lung cancer BPH (benign prostatic hyperplasia) Mother Dementia Brother Myocardial infarction Other Mental health problem Substance abuse Social History Social History Household Members: None Housing: Assisted Living Facility Housing Other:: [facility]dc Do you presently have visiting nurse or other home services: No Unable to assess alcohol history related to: Unknown Alcohol intake: never Patient Tobacco Use Status: Current everyday Tobacco user Tobacco use type: Cigarette Cigarette Packs Per Day: 0.5 Cigarettes Per Day: 5 Years Smoked: 10 Smoked in Last 30 Days: No e-Cigarette/Vaping Use: Never Used Second Hand Smoke Exposure: Yes Use of substances other than those prescribed or required for medical reasons: No Any prior treatment program specific to substance use: No Advance Directives: No Advance Directives Information Provided: Yes service: No Current occupational status: employed Current occupation: [email or web address] Sexual orientation: Decline to Answer Cognitive needs: No Hearing needs: No Vision needs: Yes Physical Exam ED Vital Signs: Vital Signs - 24 hr 01/31/25 13:10 01/31/25 15:42 Temperature 97.9 F 98.2 F Pulse Rate 90 69 Respiratory Rate 16 18 Blood Pressure 114/64 125/81 Pulse Oximetry 97 Oxygen Delivery Method Room Air BMI result Body Mass Index 21.1 Appearance: Alert. Oriented X3. No acute distress. agitated with any questionin Eyes: Pupils equal, round and reactive to light. ENT: Pharynx normal. Neck: Normal inspection. Neck supple. CVS: Normal heart rate and rhythm. Pulses normal. Respiratory: No respiratory distress. Breath sounds normal. Abdomen: Soft and mild ttp along suprapubic area no rebound or guarding Skin: Skin warm and dry. Normal skin color. Normal skin turgor. Extremities: No lower extremity edema. Neuro: Oriented X 3. No motor deficit. No sensory deficit. Course Course Course Narrative: RME, this is a rapid medical exam performed by Saeid Valdivia please refer to primary provider for complete H&P- 59 year old male presents for evaluation of abdominal pain. This is the patient's 13th visit this month. Plan for labs and a UA Reevaluation(s) Reevaluation #1: FULL WORK UP DONE AND CARE INVOLVED NO ACUTE FINDINGS ON REPEAT VISIT OTHER THAN URINE WOULD AVOID FURTHER WORK UP WITH LABS/IMAGING. HE HAS HAD 14 VISITS IN THE LAST MONTH FOR SAME WITH NEGATIVE WORK UP TODAY Kisha Coronaie, DO 01/31/25 1819 Medications Administered Discontinued Medications Generic Name Dose Route Start Last Admin Trade Name Freq PRN Reason Stop Dose Admin Iohexol 100 ml 01/31/25 14:23 01/31/25 14:24 Iohexol 350 Mg/Ml 100 Ml Infus..Btl IV 01/31/25 14:24 85 ml ONCE ONE Administration Medical Decision Making Medical Decision Making [facility] Narrative: 59 yo male with PMH of BPH, chronic suprapubic pain, GERD, UTI, straight cath, HLD, schizoaffective d/o now here with c/o again 14th visit of abdominal pain while his labs and urine normal given his repeat visits will obtain advanced imaging for mass/obstruction/hydro. He is aware but upset. If his work up is negative will refer to CARE for decompensation. Differential Diagnosis Differential Diagnoses: The differential diagnosis associated with the presentation includes mass, cystitis, chronic abdominal pain, schizoaffective disorder decompensation Admission/Observation Consideration of admission/observation: Escalation of care including admission/observation considered respite per N they are working on placement he now refuses respite at this time stable for DC Consult Healthcare Provider Management of the patient was discussed with: Behavioral Health Provider Lab Data MDM Lab Attestation statement: I reviewed the patient's lab results. 01/31/25 13:21 01/31/25 13:21 Labs: Lab Results 01/31/25 01/31/25 Range/Units 13:21 15:42 WBC 5.7 (4.8-10.8) X10*3/uL RBC 3.87 L (4.60-5.80) X10*6/uL Hgb 12.6 L (14.0-18.0) g/dl Hct 36.2 L (42.0-52.0) % MCV 93.5 (80.0-98.0) fL MCH 32.6 (27.0-33.0) pg MCHC 34.8 (31.0-36.0) g/dl RDW 14.3 (11.0-16.0) % Plt Count 170 (160-400) X10*3/uL MPV 9.7 (9.4-12.4) fL Immature Gran % (Auto) 0.2 (0.0-0.4) % Neut % (Auto) 55.4 (45-73) % Lymph % (Auto) 29.8 (20-40) % [place] % (Auto) 10.6 (2-11) % Eos % (Auto) 3.0 (0-4) % Baso % (Auto) 1.0 (0-2) % Lymph # (Auto) 1.7 (1.2-4.9) X10*3/uL [place] # (Auto) 0.6 (0.1-1.2) X10*3/uL Eos # (Auto) 0.2 (0.0-0.4) X10*3/uL Baso # (Auto) 0.1 (0.0-0.2) X10*3/uL Abs Immat Gran (auto) 0.01 (0.00-0.03) X10*3/uL Absolute Neuts (auto) 3.2 (2.0-8.3) x10*3/uL Absolute Nucleated RBC 0.000 (0.0-0.012) X10*3/uL Nucleated RBC % (auto) 0.0 (0.0-0.2) /100WBC Sodium 142 (135-145) mmol/L Potassium 4.1 (3.3-5.1) mmol/L Chloride 109 H (96-108) mmol/L Carbon Dioxide 26 (22-29) mmol/L Anion Gap 11 L (12-20) BUN 6 L (9-16) mg/dL Creatinine 0.74 (0.5-1.4) mg/dL Estim Creat Clear Calc 98.6 Estimated GFR > 60 Random Glucose 96 (60-115) mg/dL Calcium 8.7 (8.4-10.2) mg/dL Total Bilirubin 0.4 (0.0-1.0) mg/dL AST 26 (5-37) U/L ALT 19 (0-40) U/L Alkaline Phosphatase 56 (39-117) U/L Total Protein 6.1 L (6.5-8.0) g/dL Albumin 3.7 (3.5-5.0) g/dL Lipase 25 (8-78) U/L Urine Color Yellow Urine Appearance Clear Urine pH 6.0 (5.0-9.0) Ur Specific [place] <= 1.005 (1.005-1.025) Urine Protein Negative (Neg-Trace) mg/dL Urine Glucose (UA) Negative (Negative) mg/dL Urine Ketones Negative (Negative) mg/dL Urine Blood Negative (Negative) Urine Nitrite Negative (Negative) Ur Leukocyte Esterase Negative (Negative) Urine RBC 0-2 (0-2) /HPF Urine WBC 0-5 (0-5) /HPF Ur Squamous Epith Cells 0-2 (0-2) /HPF Urine Bacteria None Seen (None Seen) Hyaline Casts 0-2 (0-2) /LPF Independent Interpretation I performed an independent interpretation of an: CT Scan Radiology Impression Discussion of test interpretation with radiology: I have reviewed the radiologist's reading. External Record Review External record reviewed: Outpatient record Discharge Plan Discharge Clinical Impression: Neurogenic bladder Patient Disposition: Home, Self-Care Instructions: Neurogenic Bladder (ED) Additional Instructions: labs reassuring CT scan no change from baseline chronic bladder wall thickening follow up with your doctors as planned return for any worsening symptoms or concerns You were seen in our Emergency Department today for treatment of a behavioral health issue. It is important after your visit that you follow up with either your behavioral health provider or a primary care doctor within 7 days.? If you have trouble finding a therapist you can reach out to [address] [phone] The National Suicide and Crisis Lifeline can be reached 7 days a week 24 hours a day.? Call 988 to speak with someone.? Return for any worsening symptoms or concerns such as thoughts of self harm or harm to others. Please call 911 if you feel your mental health is worsening.? Prescriptions: No Action polyethylene glycol 3350 [Miralax] 17 gram/dose powder 17 g PO DAILY Qty: 119 0RF quetiapine 100 mg tablet 100 mg PO BEDTIME lorazepam 1 mg tablet 1 mg PO DAILY PRN (Reason: Anxiety) aripiprazole 30 mg tablet 30 mg PO DAILY quetiapine 50 mg tablet PO BID tamsulosin 0.4 mg capsule 0.4 mg PO QAM 90 Days Qty: 90 0RF atorvastatin 20 mg tablet 20 mg PO QPM 90 Days Qty: 90 3RF Print Language: Belarusian
[2025-01-31 13:38] LABS: MANUAL DIFF FLAG NO
[2025-01-31 13:43] LABS: Hematocrit 36.2 % (42.0-52.0); Hemoglobin 12.6 g/dl (14.0-18.0); Imm Gran Abs Auto 0.01 X10*3/uL (0.00-0.03); Imm Gran Pct Auto 0.2 % (0.0-0.4); Lymphocytes Absolute Auto 1.7 X10*3/uL (1.2-4.9); Mean Corpuscular HGB Conc 34.8 g/dl (31.0-36.0); Mean Corpuscular Hemoglobin 32.6 pg (27.0-33.0); Mean Corpuscular Volume 93.5 fL (80.0-98.0); NRBC Abs Auto 0.000 X10*3/uL (0.0-0.012); NRBC Pct Auto 0.0 /100WBC (0.0-0.2); Platelet Count 170 X10*3/uL (160-400); Red Blood Count 3.87 X10*6/uL (4.60-5.80); White Blood Count 5.7 X10*3/uL (4.8-10.8)
--- OUTSIDE RECORDS SUMMARY | 2025-01-31 13:47 | XMS_ITS | Clinical Summary ---
Author Organization [facility] Address [address] [place] [address] Phone Care Team Providers Care Secondary Special Education Teacher Name Role Phone Dk Rodriguez MD Primary Care Provider Allergies No known active allergies Medications No known medications Encounters Date Type Department Care Team Description 01/30/2025 8:57 PM EDT - 01/31/2025 12:33 AM EDT [facility] Emergency [address] [place] [phone] Discharge Disposition: Home or Self Care 01/28/2025 9:14 PM EDT - 01/28/2025 11:28 PM EDT [facility] Emergency [address] [place] [phone] Discharge Disposition: Home or Self Care 01/14/2025 8:53 PM EDT - 01/15/2025 12:26 AM EDT [facility] Emergency [address] [place] [phone] Discharge Disposition: Home or Self Care 01/12/2025 8:45 PM EDT - 01/12/2025 11:57 PM EDT [facility] Emergency [address] [place] [phone] Dilcia Carl MD Discharge Disposition: Left Against Medical Advice 12/04/2024 11:34 PM EDT - 12/05/2024 1:06 AM EDT [facility] Emergency [address] [place] [phone] Discharge Disposition: Home or Self Care 12/02/2024 10:00 PM EDT - 12/03/2024 12:28 AM EDT [facility] Emergency [address] [place] [phone] Discharge Disposition: Home or Self Care 11/27/2024 10:17 PM EDT - 11/28/2024 8:54 AM EDT [facility] Emergency [address] [place] [phone] Discharge Disposition: Home or Self Care 11/26/2024 9:40 PM EDT - 11/27/2024 2:06 AM EDT [facility] Emergency [address] [place] [phone] Discharge Disposition: Home or Self Care 11/24/2024 11:19 PM EDT - 11/25/2024 1:14 AM EDT [facility] Emergency [address] [place] [phone] Discharge Disposition: Home or Self Care 11/23/2024 11:27 PM EDT - 11/24/2024 1:10 AM EDT [facility] Emergency [address] [place] [phone] Urinary retention (Primary Dx) Discharge Disposition: Home or Self Care 11/22/2024 10:08 PM EDT - 11/23/2024 2:55 AM EDT [facility] Emergency [address] [place] [phone] Discharge Disposition: Home or Self Care 11/18/2024 3:47 AM EDT - 11/18/2024 5:34 AM EDT [facility] Emergency [address] [place] [phone] Discharge Disposition: Home or Self Care 11/09/2024 12:37 AM EDT - 11/09/2024 4:23 AM EDT [facility] Emergency [address] [place] [phone] Discharge Disposition: Home or Self Care from Last 3 Months Medical History Medical History Date Comments Bipolar 1 disorder ([facility] V24, [facility] V28) Mood disorder ([facility] V24) Hyperactivity of bladder Social History Tobacco [...] Mass Index 21.41 01/30/2025 9:00 PM EDT Plan of Treatment Health Maintenance [...] Depression Screening 06/05/2024 Influenza Vaccine (#1) 2025 3, 04/11/2018, 02/17/2017, Additional history exists DTaP,Tdap,and Td [...] CBC auto differential (12/05/2024 12:00 AM EDT) [facility] WBC 7.4 4.8 - 10.8 K/mcL LAB HEMETOLOGY METHOD 12/05/2024 12:52 AM [facility] RBC 4.00(L) 4.50 - 5.50 M/mcL LAB HEMETOLOGY METHOD 12/05/2024 12:52 AM [facility] Hemoglobin 12.7(L) 13.5 - 17.5 g/dL LAB HEMETOLOGY METHOD 12/05/2024 12:52 AM [facility] Hematocrit 37.3(L) 42.0 - 54.0 % LAB HEMETOLOGY METHOD 12/05/2024 12:52 AM [facility] MCV 93.7 79.0 - 98.0 FL LAB HEMETOLOGY METHOD 12/05/2024 12:52 AM [facility] MCH 31.9 27.0 - 32.0 pcg LAB HEMETOLOGY METHOD 12/05/2024 12:52 AM [facility] MCHC 34.0 32.0 - 37.0 g/dL LAB HEMETOLOGY METHOD 12/05/2024 12:52 AM [facility] RDW 13.2 11.0 - 15.0 % LAB HEMETOLOGY METHOD 12/05/2024 12:52 AM [facility] Platelets 207 130 - 400 K/mcL LAB HEMETOLOGY METHOD 12/05/2024 12:52 AM [facility] MPV 9.4 7.0 - 11.0 FL LAB HEMETOLOGY METHOD 12/05/2024 12:52 AM [facility] NRBC 0.0 <1.0 % LAB HEMETOLOGY METHOD 12/05/2024 12:52 AM [facility] NRBC Absolute 0.00 <0.10 K/mcL LAB HEMETOLOGY METHOD 12/05/2024 12:52 AM [facility] Neutrophils Relative 56.8 % LAB HEMETOLOGY METHOD 12/05/2024 12:52 AM [facility] Lymphocytes Relative 27.7 % LAB HEMETOLOGY METHOD 12/05/2024 12:52 AM [facility] Monocytes Relative 11.1 % LAB HEMETOLOGY METHOD 12/05/2024 12:52 AM [facility] Eosinophils Relative 3.3 % LAB HEMETOLOGY METHOD 12/05/2024 12:52 AM [facility] Basophils Relative 0.8 % LAB HEMETOLOGY METHOD 12/05/2024 12:52 AM [facility] Immature Granulocytes Relative 0.3 % LAB HEMETOLOGY METHOD 12/05/2024 12:52 AM [facility] Neutrophils Absolute 4.19 1.50 - 7.00 K/mcL LAB HEMETOLOGY METHOD 12/05/2024 12:52 AM [facility] Lymphocytes Absolute 2.04 1.00 - 5.00 K/mcL LAB HEMETOLOGY METHOD 12/05/2024 12:52 AM [facility] Monocytes Absolute 0.82 0.20 - 1.00 K/mcL LAB HEMETOLOGY METHOD 12/05/2024 12:52 AM [facility] Eosinophils Absolute 0.24 0.00 - 0.50 K/mcL LAB HEMETOLOGY METHOD 12/05/2024 12:52 AM [facility] Basophils Absolute 0.06 0.00 - 0.20 K/mcL LAB HEMETOLOGY METHOD 12/05/2024 12:52 AM [facility] Immature Granulocytes Absolute 0.02 0.00 - 0.03 K/mcL LAB HEMETOLOGY METHOD 12/05/2024 12:52 AM [facility] Blood Venous blood specimen / Unknown Venipuncture / Unknown 12/05/2024 12:00 AM EDT 12/05/2024 12:45 AM EDT Dalila Alberto MD LAB BLOOD ORDERABLES Fin al Result [facility] [address] [place] [address], * (ABNORMAL) Comprehensive metabolic panel (12/05/2024 12:00 AM EDT) Sodium 139 133 - 145 mmol/L LAB CHEMISTRY METHOD 12/05/2024 1:25 AM [facility] Potassium 3.6 3.5 - 5.5 mmol/L LAB CHEMISTRY METHOD 12/05/2024 1:25 AM [facility] Chloride 108 96 - 110 mmol/L LAB CHEMISTRY METHOD 12/05/2024 1:25 AM [facility] CO2 26 21 - 32 mmol/L LAB CHEMISTRY METHOD 12/05/2024 1:25 AM [facility] Anion Gap 5 3 - 11 LAB CHEMISTRY METHOD 12/05/2024 1:25 AM [facility] Glucose 80 70 - 100 mg/dL LAB CHEMISTRY METHOD 12/05/2024 1:25 AM [facility] BUN 8 5 - 25 mg/dL LAB CHEMISTRY METHOD 12/05/2024 1:25 AM [facility] Creatinine 0.69(L) 0.70 - 1.30 mg/dL LAB CHEMISTRY METHOD 12/05/2024 1:25 AM [facility] eGFR 107 >=60 mL/min/1. 73m2 LAB CHEMISTRY METHOD 12/05/2024 1:25 AM [facility] Comment:Calculation based on the Chronic Kidney Disease Epidemiology Collaboration (CKD-EPI) equation refit without adjustment for race. BUN/Creatinine Ratio 11.6 LAB CHEMISTRY METHOD 12/05/2024 1:25 AM [facility] Calcium 8.6 8.5 - 10.5 mg/dL LAB CHEMISTRY METHOD 12/05/2024 1:25 AM [facility] AST (SGOT) 13 10 - 42 unit/L LAB CHEMISTRY METHOD 12/05/2024 1:25 AM [facility] ALT (SGPT) 16 10 - 60 unit/L LAB CHEMISTRY METHOD 12/05/2024 1:25 AM [facility] Alkaline Phosphatase 67 42 - 121 unit/L LAB CHEMISTRY METHOD 12/05/2024 1:25 AM [facility] Total Protein 6.3 6.0 - 8.0 g/dL LAB CHEMISTRY METHOD 12/05/2024 1:25 AM [facility] Albumin 3.3 3.2 - 5.0 g/dL LAB CHEMISTRY METHOD 12/05/2024 1:25 AM [facility] Total Bilirubin 0.4 0.0 - 1.4 mg/dL LAB CHEMISTRY METHOD 12/05/2024 1:25 AM [facility] Blood Venous blood specimen / Unknown Venipuncture / Unknown 12/05/2024 12:00 AM EDT 12/05/2024 12:45 AM EDT us Dalila Alberto MD LAB BLOOD ORDERABLES Fin al Result [facility] [address] [place] [address], * (ABNORMAL) Urinalysis with reflex microscopic and culture (11/23/2024 11:28 PM EDT) Specific [place] Urine 1.007 1.003 - 1.030 LAB URINALYSIS - AUTOMATED METHOD 11/24/2024 12:11 AM [facility] pH, Urine 6.5 5.0 - 8.0 pH LAB URINALYSIS - AUTOMATED METHOD 11/24/2024 12:11 AM [facility] Leukocytes, Urine Moderate(A) Negative LAB URINALYSIS - AUTOMATED METHOD 11/24/2024 12:11 AM [facility] Nitrite, Urine Negative Negative LAB URINALYSIS - AUTOMATED METHOD 11/24/2024 12:11 AM [facility] Protein, Urine Negative <=Trace mg/dL LAB URINALYSIS - AUTOMATED METHOD 11/24/2024 12:11 AM [facility] Glucose, Urine Negative Negative mg/dL LAB URINALYSIS - AUTOMATED METHOD 11/24/2024 12:11 AM [facility] Ketones, Urine Negative Negative mg/dL LAB URINALYSIS - AUTOMATED METHOD 11/24/2024 12:11 AM [facility] Urobilinogen , Urine 0.2 0.2 - 1.0 mg/dL LAB URINALYSIS - AUTOMATED METHOD 11/24/2024 12:11 AM [facility] Bilirubin, Urine Negative Negative LAB URINALYSIS - AUTOMATED METHOD 11/24/2024 12:11 AM [facility] Blood, Urine Negative Negative LAB URINALYSIS - AUTOMATED METHOD 11/24/2024 12:11 AM [facility] RBC, Urine 1.3 0 - 4 /HPF LAB URINALYSIS - AUTOMATED METHOD 11/24/2024 12:11 AM [facility] WBC, Urine 8.1(H) 0 - 4 /HPF LAB URINALYSIS - AUTOMATED METHOD 11/24/2024 12:11 AM [facility] Squamous Epithelial, Urine 14 0 - 60 /LPF LAB URINALYSIS - AUTOMATED METHOD 11/24/2024 12:11 AM [facility] Bacteria, Urine Negative Negative /HPF LAB URINALYSIS - AUTOMATED METHOD 11/24/2024 12:11 AM EDT [facility] Hyaline Casts, Urine 0.4 0 - 3 /LPF LAB URINALYSIS - AUTOMATED METHOD 11/24/2024 12:11 AM EDT [facility] Urine Urine specimen obtained by clean catch procedure / Unknown Non-blood Collection / Unknown 11/23/2024 11:28 PM EDT 11/24/2024 12:03 AM EDT us Ming Love MD LAB URINE ORDERABLES Final Res ult Performing Organization Address City/[facility]/ZIP Co de Phone Number [facility] [address] [place] [address], [place] [phone] * [place] urine culture tube (11/23/2024 11:28 PM EDT) Extra Tube Hold for add-ons. 11/25/2024 1:01 AM EDT [facility] Comment:Auto resulted. Urine Urine specimen obtained by clean catch procedure / Unknown Non-blood Collection / Unknown 11/23/2024 11:28 PM EDT 11/24/2024 12:03 AM EDT us Ming Love MD LAB URINE ORDERABLES Final Res ult Performing Organization Address City/[facility]/ZIP Co de Phone Number [facility] [address] [place] [address], [place] [phone] * Culture urine (11/23/2024 11:28 PM EDT) Culture, Urine <10,000 CFU/mL gram positive cocci, insignificant count, no further workup 11/25/2024 10:10 AM EDT [facility] Urine Urine specimen obtained by clean catch procedure / Unknown Non-blood Collection / Unknown 11/23/2024 11:28 PM EDT 11/24/2024 12:11 AM EDT us Ming Love MD LAB MICROBIOLOGY - GENERAL ORD ERABLES Final Result [facility] [address] [place] [address], [place] [phone] from Last 3 Months Insurance MEDICARE MEDICAID - [place] Care Teams Secondary Special Education Teacher Relationship Specialty Start Date End Date Dk Rodriguez MD [address] [place] [address] Dr [address] [place], [place] PCP - General Internal Medicine 07/16/24
--- OUTSIDE RECORDS SUMMARY | 2025-01-31 13:47 | XMS_ITS | Encounter Summary ---
Author Organization [facility] Address [address] [place] [address] Care Team Providers Care [employer] Name Role Phone Ref, Has No Pcp Or Primary Care Provider Unavail able Encounter Details Date Type Department Care Team (Late st Contact Info) Description 01/04/2024 Community Orders [facility] EpicCare Link [address] [place] [address] Bethany Lozano, [employer] [address] [place] [address] Social History Tobacco Use Types Packs/Day Years [...] on filedocumented in this encounter Care Teams [employer] Relationship Specialty Start Date End Date Ref, Has No Pcp Or DO NOT EDIT THIS RECORD VIA PROVIDER ON THE FLY PCP - General Rig Builder Helper 12/30/23 documented as of this encounter
--- OUTSIDE RECORDS SUMMARY | 2025-01-31 13:47 | XMS_ITS | Clinical Summary ---
Author Organization [facility] Address [address] [place] [address] Care Team Providers Care Hearing Therapist Name Role Phone Ref, Has No Pcp Or Primary Care Provider Unavail able Allergies No known active allergies Medications ARIPiprazole [...] Plan (01/03/2024 10:49 AM EDT): Presented from [facility] with hyponatremia (initially 123). Also had [...] Seroquel 25 mg twice daily Presents from [facility]'s forensic unit with documented history of schizophrenia. Continue home aripiprazole 20mg daily Continue home carbamazepine 500 mg twice daily Continue home Zyprexa 15 mg nightly Continue home Seroquel 25 mg twice daily Consider psychiatry consult if concern that antipsychotic medications are causing SIADH Patient presents from [facility], requires constant observation Assessment & Plan (01/02/2024 11:43 AM EDT): Home medications: aripiprazole 20 mg daily, carbamazepine 500 mg twice daily, Zyprexa 15 mg nightly, Seroquel 25 mg twice daily Presents from [facility]'s forensic unit with documented history of schizophrenia. Continue home aripiprazole 20mg daily Continue home carbamazepine 500 mg twice daily Continue home Zyprexa 15 mg nightly Continue home Seroquel 25 mg twice daily Consider psychiatry consult if concern that antipsychotic medications are causing SIADH Patient presents from [facility], requires constant observation BPH (benign prostatic hyperplasia) 12/30/2023 Assessment & Plan (01/03/2024 2:33 PM EDT): Paperwork from the [facility] center indicates history of BPH with prior need for intermittent catheterization requiring urology evaluation in the past, records not available in our system). Per documentation from [facility] patient has seen urology at [facility] in [place]. He was started on Flomax outpatient. In [...] 11:43 AM EDT): Paperwork from the [facility] indicates history of BPH with prior need for intermittent catheterization requiring urology evaluation in the past, records not available in our system). Per documentation from [facility] patient has seen urology at [facility] in [place]. He was started on Flomax outpatient. In [...] 1-dose 75+ series) 2040 Insurance [facility] MEDICARE [facility] Advance Directives * Full Code (Latest Code Status on File) Date Activated Date Inactivated Comments 12/30/2023 7:22 PM 01/03/2024 8:48 PM * Presumed Full Code Date Activated Date Inactivated Comments 12/30/2023 7:00 PM 12/30/2023 7:22 PM Care Teams Hearing Therapist Relationship Specialty Start Date End Date Ref, Has No Pcp Or DO NOT EDIT THIS RECORD VIA PROVIDER ON THE FLY PCP - General Assembly Hand 12/30/23
[2025-01-31 13:56] LABS: Alanine Aminotransferase 19 U/L (0-40); Albumin Level 3.7 g/dL (3.5-5.0); Alkaline Phosphatase 56 U/L (39-117); Anion Gap 11 (12-20); Aspartate Amino Transferase 26 U/L (5-37); Blood Urea Nitrogen 6 mg/dL (9-16); Calcium 8.7 mg/dL (8.4-10.2); Carbon Dioxide 26 mmol/L (22-29); Chloride 109 mmol/L (96-108); Creatinine Clr Calc Pharmacy 98.6; Estimated Glomerular Filt Rate > 60; Lipase 25 U/L (8-78); Potassium 4.1 mmol/L (3.3-5.1); Sodium 142 mmol/L (135-145); Total Protein 6.1 g/dL (6.5-8.0)
[2025-01-31] MEDS: iohexoL 350 MG/ML 100 ML INFUS..BTL IV (14:24)
[2025-01-31 15:42] VITALS: BP 125/81; PULSE 69; RESP 18; TEMP 36.8
[2025-01-31 15:59] LABS: Appearance Urine Clear; Glucose Urine UA Negative (Negative); PH 6.0 (5.0-9.0); Specific Gravity - Urine <= 1.005 (1.005-1.025)
--- NOTE | 2025-01-31 17:07 | PC.NURSE ---
Pt arrives from main ED for eval and disposition. He is anxious and talks about his urinary and abdominal problems. He is oriented to the unit and provided dinner. He denies SI/HI/AVH. His medications list from his is reviewed.
[2025-01-31 18:31] VITALS: BP 125/81; PULSE 69; RESP 16; TEMP 36.8; O2SAT 97
--- NOTE | 2025-01-31 18:57 | MHC.CARE ---
Pt was referred to [facility] and was declined as there was no ?clinical reason for treatment.? Pt informed and declined additional referrals to [facility] offered. Per ED provider Pt will D/C. Pt refused a lyft and will walk home. notified who voiced no concerns regarding safety and that Pt typically does walk home.
== END 2025-01-31 18:26 | disposition home or self-care (01) ==
PROVIDERS: Physician Assistant; Emergency Provider Emergency Medicine; PCP Internal Medicine
DX: N31.9 Neuromuscular dysfunction of bladder, unspecified (principal); R10.9 Unspecified abdominal pain; F20.9 Schizophrenia, unspecified
CPT/HCPCS: 36415; 74177; 80053; 81001; 83690; 85025; 99284; 99285; Q9967; S9485

== ENCOUNTER → 2025-01-31 13:23 | Outpatient (BNV) | payer MEDICARE, MEDICAID, SELFPAY | PROVIDERS: Emergency Provider Emergency Medicine; PCP Internal Medicine; Visit Provider Radiology Diagnostic Radiology | DX: N32.89 Other specified disorders of bladder (principal); M51.34 Other intervertebral disc degeneration, thoracic region; M51.369 Other intervertebral disc degeneration, lumbar region without mention of lumbar back pain or lower extremity pain | CPT/HCPCS: 74177 ==

== ENCOUNTER 2025-02-02 01:04 | Emergency (ER) | payer MEDICARE, MEDICAID, SELFPAY ==
--- OUTSIDE RECORDS SUMMARY | 2025-01-28 21:14 | XMS_ITS | Encounter Summary ---
Author Organization [facility] Address [address] [place] [address] Care Team Providers Care Deputy Sheriff Generalist Name Role Phone Dk Rodriguez MD Primary Care Provider + [phone] Reason for Visit * Reason Comments Male Problem My bladder feels fu ll Encounter Details Date Type Department Care Team (Late st Contact Info) Description 01/28/2025 9:14 PM EDT - 01/28/2025 11:28 PM EDT Emergency [facility] Emergency [address] [place] [address] Discharge Disposition: Home or Self [...] Author No 11/24/2024 1:09 AM EDT Taye Wlalis RN * Because of a physical, mental, [...] on filedocumented in this encounter Care Teams Deputy Sheriff Generalist Relationship Specialty Start Date End Date Dk Rodriguez MD [address] [place] [address] [address] COY Lucero PCP - General Internal Medicine 07/16/24 documented as of this encounter
--- OUTSIDE RECORDS SUMMARY | 2025-01-30 20:57 | XMS_ITS | Encounter Summary ---
Author Organization [facility] Address [address] [place] [address] Care Team Providers Care Health Care Specialist Name Role Phone Dk Rodriguez MD Primary Care Provider [phone] Reason for Visit * Reason Comments Abdominal Pain Abdominal pain 2 wee ks ago Encounter Details Date Type Department Care Team (Late st Contact Info) Description 01/30/2025 8:57 PM EDT - 01/31/2025 12:33 AM EDT Emergency [facility] Emergency [address] [place] [phone] Discharge Disposition: Home or Self Care Social [...] Sign Reading Time Taken Comments Blood Pressure 132/105 01/30/2025 9:00 PM EDT Pulse 97 01/30/2025 9:00 PM EDT Temperature 36.8 C (98.2 F) 01/30/2025 9:00 PM EDT Respiratory Rate 18 01/30/2025 9:00 PM EDT Oxygen Saturation 97% 01/30/2025 9:00 PM EDT Inhaled Oxygen Concentration - - Weight 65.8 kg (145 lb) 01/30/2025 9:00 PM EDT Height 175.3 cm (5' 9 ) 01/30/2025 9:00 PM EDT Body Mass Index 21.41 01/30/2025 9:00 PM EDT documented in this encounter Functional [...] Progress Notes * Renetta Logan RN - 01/30/2025 9:01 PM EDT Pt complains of lower abdominal pain. Says when he walks his bladder feels full. Says the pain started about two weeks ago. Says its constant. My bladder has to have 100 or 800ml in it documented in this encounter Plan of Treatment Not on file documented as of this encounter Visit Diagnoses Not on filedocumented in this encounter Care Teams Health Care Specialist Relationship Specialty Start Date End Date Dk Rodriguez MD [address] [place] [address] Dr [address] COY Lucero PCP - General Internal Medicine 07/16/24 documented as of this encounter
--- OUTSIDE RECORDS SUMMARY | 2025-02-01 20:58 | XMS_ITS | Encounter Summary ---
Author Organization [facility] Address [address] [place] [address] Care Team Providers Care School Custodian Name Role Phone Dk Rodriguez MD Primary Care Provider + [phone] Reason for Visit * Reason Comments Urinary Retention C/O urinary retentio n and bladder pain x 1 week Encounter Details Date Type Department Care Team (Late st Contact Info) Description 02/01/2025 8:58 PM EDT - 02/01/2025 10:49 PM EDT Emergency [facility] Emergency [address] [place] [phone] Discharge Disposition: Home or Self Care Social [...] HE HAD A FULL WORK UP AT [facility] AND CT SCAN WITH NOTHING FOUND TO BE WRONG, PT USES TOBACCO [facility] CTR RECORDS REQUESTED documented in this encounter Plan of Treatment Not on file documented as of this encounter Visit Diagnoses Not on filedocumented in this encounter Care Teams School Custodian Relationship Specialty Start Date End Date Dk Rodriguez MD [address] [place] [address] Dr [address] [place] PCP - General Internal Medicine 07/16/24 documented as of this encounter
[2025-02-02 01:05] VITALS: BP 126/64; PULSE 82; RESP 18; TEMP 36.7; O2SAT 97; BMI 21.1
--- OUTSIDE RECORDS SUMMARY | 2025-02-02 01:13 | XMS_ITS | Encounter Summary ---
Author Organization [facility] Address [address] [place] [address] Care Team Providers Care Migratory Farm Hand Name Role Phone Ref, Has No Pcp Or Primary Care Provider Unavail able Encounter Details Date Type Department Care Team (Late st Contact Info) Description 01/04/2024 Community Orders [facility] EpicCare Link [address] [place] [address] Bethany Lozano, SOLAR SALES ADVISOR [address] [place] [address] Social History Tobacco Use Types Packs/Day Years [...] on filedocumented in this encounter Care Teams Migratory Farm Hand Relationship Specialty Start Date End Date Ref, Has No Pcp Or DO NOT EDIT THIS RECORD VIA PROVIDER ON THE FLY PCP - General Veneer Marker 12/30/23 documented as of this encounter
--- OUTSIDE RECORDS SUMMARY | 2025-02-02 01:13 | XMS_ITS | Clinical Summary ---
Author Organization [facility] Address [address] [place] [address] Care Team Providers Care Retail Assistant Store Manager Name Role Phone Ref, Has No Pcp [...] Plan (01/03/2024 2:32 PM EDT): Presents from [facility] in the setting of urinary retention [...] Plan (01/03/2024 10:49 AM EDT): Presented from [facility] with hyponatremia (initially 123). Also had dizziness/lightheadedness, [...] Plan (01/02/2024 11:43 AM EDT): Presents from [facility] in the setting of urinary retention [...] Seroquel 25 mg twice daily Presents from [facility]'s forensic unit with documented history of schizophrenia. 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 Per documentation from [facility] patient has seen urology at [facility] in [place]. He was started on Flomax outpatient. In [...] 11:43 AM EDT): Paperwork from the [facility] indicates history of BPH with prior need for intermittent catheterization requiring urology evaluation in the past, records not available in our system). Per documentation from [facility] patient has seen urology at [facility] in [place]. He was started on Flomax outpatient. In [...] [facility] MEDICARE [facility] Advance Directives * Full Code (Latest Code Status on File) Date Activated Date Inactivated Comments 12/30/2023 7:22 PM 01/03/2024 8:48 PM * Presumed Full Code Date Activated Date Inactivated Comments 12/30/2023 7:00 PM 12/30/2023 7:22 PM Care Teams Retail Assistant Store Manager Relationship Specialty Start Date End Date Ref, Has No Pcp Or DO NOT EDIT THIS RECORD VIA PROVIDER ON THE FLY PCP - General Firebrick And Refractory Tile Repairer 12/30/23
--- OUTSIDE RECORDS SUMMARY | 2025-02-02 01:13 | XMS_ITS | Clinical Summary ---
Author Organization [facility] Address [address] [place] [address] Phone Care Team Providers Care Dry House Worker Name Role Phone Dk Rodriguez MD Primary Care Provider [phone] Allergies No known active allergies Medications No known medications Encounters Date Type Department Care Team Description 02/01/2025 8:58 PM EDT - 02/01/2025 10:49 PM EDT [facility] Emergency [address] [place] [phone] Discharge Disposition: Home or Self Care 01/30/2025 8:57 PM EDT - 01/31/2025 12:33 AM EDT [facility] Emergency [address] [place] [phone] Discharge Disposition: Home or Self Care 01/28/2025 9:14 PM EDT - 01/28/2025 11:28 PM EDT [facility] Emergency [address] [place] [phone] Discharge Disposition: Home or Self Care 01/14/2025 8:53 PM EDT - 01/15/2025 12:[address] [facility] Emergency [address] [place] [phone] Discharge Disposition: Home or Self Care 01/12/2025 8:45 PM EDT - 01/12/2025 11:57 PM EDT [facility] Emergency [address] [place] [phone] Dilcia Carl MD Discharge Disposition: Left Against Medical Advice 12/04/2024 11:34 PM EDT - 12/05/2024 1:06 AM EDT [facility] Emergency [address] [place] [phone] Discharge Disposition: Home or Self Care 12/02/2024 10:00 PM EDT - 12/03/2024 12:28 AM EDT [facility] Emergency [address] [place] [phone] Discharge Disposition: Home or Self Care 11/27/2024 10:17 PM EDT - 11/28/2024 8:54 AM EDT [facility] Emergency [address] [place] [phone] Discharge Disposition: Home or Self Care 11/26/2024 9:40 PM EDT - 11/27/2024 2:06 AM EDT [facility] Emergency [address] [place] [phone] Discharge Disposition: Home or Self Care 11/24/2024 11:19 PM EDT - 11/25/2024 1:14 AM EDT [facility] Emergency [address] [place] [phone] Discharge Disposition: Home or Self Care 11/23/2024 11:27 PM EDT - 11/24/2024 1:10 AM EDT [facility] Emergency [address] [place] [phone] Urinary retention (Primary Dx) Discharge Disposition: Home or Self Care 11/22/2024 10:08 PM EDT - 11/23/2024 2:55 AM EDT [facility] Emergency [address] [place] [phone] Discharge Disposition: Home or Self Care 11/18/2024 3:47 AM EDT - 11/18/2024 5:34 AM EDT [facility] Emergency [address] [place] [phone] Discharge Disposition: Home or Self Care 11/09/2024 12:37 AM EDT - 11/09/2024 4:23 AM EDT [facility] Emergency [address] [place] [address] [place] [phone] Discharge Disposition: Home or Self Care from Last 3 Months Medical History Medical History Date Comments Bipolar 1 disorder ([facility] V24, [facility] V28) Mood disorder ([facility] V24) Hyperactivity of bladder Social [...] Mass Index 21.12 02/01/2025 9:02 PM EDT Plan of Treatment Health Maintenance [...] Influencers of Health Screening 05/08/2022 COVID-19 Vaccine (5 - 2023- season) 2024 03/17/2023, 03/31/2021, 07/23/2020, Additional history [...] K/mcL LAB HEMETOLOGY METHOD 12/05/2024 12:52 AM [facility] RBC 4.00(L) 4.50 - 5.50 M/mcL LAB HEMETOLOGY METHOD 12/05/2024 12:52 AM [facility] Hemoglobin 12.7(L) 13.5 - 17.5 g/dL LAB HEMETOLOGY METHOD 12/05/2024 12:52 AM [facility] Hematocrit 37.3(L) 42.0 - 54.0 % LAB HEMETOLOGY METHOD 12/05/2024 12:52 AM [facility] MCV 93.7 79.0 - 98.0 FL LAB HEMETOLOGY METHOD 12/05/2024 12:52 AM [facility] MCH 31.9 27.0 - 32.0 pcg LAB HEMETOLOGY METHOD 12/05/2024 12:52 AM [facility] MCHC 34.0 32.0 - 37.0 g/dL LAB HEMETOLOGY METHOD 12/05/2024 12:52 AM [facility] RDW 13.2 11.0 - 15.0 % LAB HEMETOLOGY METHOD 12/05/2024 12:52 AM [facility] Platelets 207 130 - 400 K/mcL LAB HEMETOLOGY METHOD 12/05/2024 12:52 AM [facility] MPV 9.4 7.0 - 11.0 FL LAB HEMETOLOGY METHOD 12/05/2024 12:52 AM [facility] NRBC 0.0 <1.0 % LAB HEMETOLOGY METHOD 12/05/2024 12:52 AM [facility] NRBC Absolute 0.00 <0.10 K/mcL LAB HEMETOLOGY METHOD 12/05/2024 12:52 AM [facility] Neutrophils Relative 56.8 % LAB HEMETOLOGY METHOD 12/05/2024 12:52 AM [facility] Lymphocytes Relative 27.7 % LAB HEMETOLOGY METHOD 12/05/2024 12:52 AM [facility] Monocytes Relative 11.1 % LAB HEMETOLOGY METHOD 12/05/2024 12:52 AM [facility] Eosinophils Relative 3.3 % LAB HEMETOLOGY METHOD 12/05/2024 12:52 AM [facility] Basophils Relative 0.8 % LAB HEMETOLOGY METHOD 12/05/2024 12:52 AM [facility] Immature Granulocytes Relative 0.3 % LAB HEMETOLOGY METHOD 12/05/2024 12:52 AM [facility] Neutrophils Absolute 4.19 1.50 - 7.00 K/mcL LAB HEMETOLOGY METHOD 12/05/2024 12:52 AM [facility] Lymphocytes Absolute 2.04 1.00 - 5.00 K/mcL LAB HEMETOLOGY METHOD 12/05/2024 12:52 AM [facility] Monocytes Absolute 0.82 0.20 - 1.00 K/mcL LAB HEMETOLOGY METHOD 12/05/2024 12:52 AM [facility] Eosinophils Absolute 0.24 0.00 - 0.50 K/mcL LAB HEMETOLOGY METHOD 12/05/2024 12:52 AM [facility] Basophils Absolute 0.06 0.00 - 0.20 K/mcL LAB HEMETOLOGY METHOD 12/05/[facility]24 12[facility] Immature Granulocytes Absolute 0.02 0.00 - 0.03 K/mcL LAB HEMETOLOGY METHOD 12/05/2024 12:52 AM [facility] Blood Venous blood specimen / Unknown Venipuncture / Unknown 12/05/2024 12:00 AM EDT 12/05/2024 12:45 AM EDT us Dalila Alberto MD LAB BLOOD ORDERABLES Fin al Result [facility] [address] [place] [address], [place] [phone] * (ABNORMAL) Comprehensive metabolic panel (12/05/2024 12:00 AM EDT) Sodium 139 133 - 145 mmol/L LAB CHEMISTRY METHOD 12/05/2024 1:25 AM [facility] Potassium 3.6 3.5 - 5.5 mmol/L LAB CHEMISTRY METHOD 12/05/2024 1:25 AM [facility] Chloride 108 96 - 110 mmol/L LAB CHEMISTRY METHOD 12/05/2024 1:25 AM [facility] CO2 26 21 - 32 mmol/L LAB CHEMISTRY METHOD 12/05/2024 1:25 AM [facility] Anion Gap 5 3 - 11 LAB CHEMISTRY METHOD 12/05/2024 1:25 AM [facility] Glucose 80 70 - 100 mg/dL LAB CHEMISTRY METHOD 12/05/2024 1:25 AM [facility] BUN 8 5 - 25 mg/dL LAB CHEMISTRY METHOD 12/05/2024 1:25 AM [facility] Creatinine 0.69(L) 0.70 - 1.30 mg/dL LAB CHEMISTRY METHOD 12/05/2024 1:25 AM [facility] eGFR 107 >=60 mL/min/1. 73m2 LAB CHEMISTRY METHOD 12/05/2024 1:25 AM [facility] Comment:Calculation based on the Chronic Kidney Disease Epidemiology Collaboration (CKD-EPI) equation refit without adjustment for race. BUN/Creatinine Ratio 11.6 LAB CHEMISTRY METHOD 12/05/2024 1:25 AM [facility] Calcium 8.6 8.5 - 10.5 mg/dL LAB CHEMISTRY METHOD 12/05/2024 1:25 AM [facility] AST (SGOT) 13 10 - 42 unit/L LAB CHEMISTRY METHOD 12/05/2024 1:25 AM [facility] ALT (SGPT) 16 10 - 60 unit/L LAB CHEMISTRY METHOD 12/05/2024 1:25 AM [facility] Alkaline Phosphatase 67 42 - 121 unit/L LAB CHEMISTRY METHOD 12/05/2024 1:25 AM [facility] Total Protein 6.3 6.0 - 8.0 g/dL LAB CHEMISTRY METHOD 12/05/2024 1:25 AM [facility] Albumin 3.3 3.2 - 5.0 g/dL LAB CHEMISTRY METHOD 12/05/2024 1:25 AM [facility] Total Bilirubin 0.4 0.0 - 1.4 mg/dL LAB CHEMISTRY METHOD 12/05/2024 1:25 AM [facility] Blood Venous blood specimen / Unknown Venipuncture / Unknown 12/05/2024 12:00 AM EDT 12/05/2024 12:45 AM EDT us Dalila Alberto MD LAB BLOOD ORDERABLES Fin al Result [facility] [address] [place] [address], [place] [phone] * (ABNORMAL) Urinalysis with reflex microscopic and culture (11/23/2024 11:28 PM EDT) Specific [place] Urine 1.007 1.003 - 1.030 LAB URINALYSIS - AUTOMATED METHOD 11/24/2024 12:11 AM [facility] pH, Urine 6.5 5.0 - 8.0 pH LAB URINALYSIS - AUTOMATED METHOD 11/24/2024 12:11 AM [facility] Leukocytes, Urine Moderate(A) Negative LAB URINALYSIS - AUTOMATED METHOD 11/24/2024 12:11 AM [facility] Nitrite, Urine Negative Negative LAB URINALYSIS - AUTOMATED METHOD 11/24/2024 12:11 AM [facility] Protein, Urine Negative <=Trace mg/dL LAB URINALYSIS - AUTOMATED METHOD 11/24/2024 12:11 AM [facility] Glucose, Urine Negative Negative mg/dL LAB URINALYSIS - AUTOMATED METHOD 11/24/2024 12:11 AM [facility] Ketones, Urine Negative Negative mg/dL LAB URINALYSIS - AUTOMATED METHOD 11/24/2024 12:11 AM [facility] Urobilinogen , Urine 0.2 0.2 - 1.0 mg/dL LAB URINALYSIS - AUTOMATED METHOD 11/24/2024 12:11 AM [facility] Bilirubin, Urine Negative Negative LAB URINALYSIS - AUTOMATED METHOD 11/24/2024 12:11 AM [facility] Blood, Urine Negative Negative LAB URINALYSIS - AUTOMATED METHOD 11/24/2024 12:11 AM [facility] RBC, Urine 1.3 0 - 4 /HPF LAB URINALYSIS - AUTOMATED METHOD 11/24/2024 12:11 AM [facility] WBC, Urine 8.1(H) 0 - 4 /HPF LAB URINALYSIS - AUTOMATED METHOD 11/24/2024 12:11 AM [facility] Squamous Epithelial, Urine 14 0 - 60 /LPF LAB URINALYSIS - AUTOMATED METHOD 11/24/2024 12:11 AM EDT [facility] Bacteria, Urine Negative Negative /HPF LAB URINALYSIS - AUTOMATED METHOD 11/24/2024 12:11 AM EDT [facility] Hyaline Casts, Urine 0.4 0 - 3 /LPF LAB URINALYSIS - AUTOMATED METHOD 11/24/2024 12:11 AM EDT [facility] Urine Urine specimen obtained by clean catch procedure / Unknown Non-blood Collection / Unknown 11/23/2024 11:28 PM EDT 11/24/2024 12:03 AM EDT us Ming Love MD LAB URINE ORDERABLES Final Res ult Performing Organization Address [facility]/ZIP Co de Phone Number [facility] [address] [place] [address], [place] [phone] * [place] urine culture tube (11/23/2024 11:28 PM EDT) Extra Tube Hold for add-ons. 11/25/2024 1:01 AM EDT [facility] Comment:Auto resulted. Urine Urine specimen obtained by clean catch procedure / Unknown Non-blood Collection / Unknown 11/23/2024 11:28 PM EDT 11/24/2024 12:03 AM EDT us Ming Love MD LAB URINE ORDERABLES Final Res ult Performing Organization Address City/[facility]/ZIP Co de Phone Number [facility] [address] [place] [address], [place] [phone] * Culture urine (11/23/2024 11:28 PM EDT) Culture, Urine <10,000 CFU/mL gram positive cocci, insignificant count, no further workup 11/25/2024 10:10 AM EDT [facility] Urine Urine specimen obtained by clean catch procedure / Unknown Non-blood Collection / Unknown 11/23/2024 11:28 PM EDT 11/24/2024 12:11 AM EDT us Ming Love MD LAB MICROBIOLOGY - GENERAL ORD ERABLES Final Result [facility] [address] [place] [address], from Last 3 Months Insurance [id number] [facility] [place] [id number] MEDICARE MEDICAID - [place] Care Teams Dry House Worker Relationship Specialty Start Date End Date Dk Rodriguez MD [address] [place] [address] [address] [place] PCP - General Internal Medicine 07/16/24
--- NOTE | 2025-02-02 01:46 | ED.GENADULT ---
HPI - General Adult General Chief complaint: General Medical Stated complaint: Has a lot of problems Time Seen by Provider: 02/02/25 01:46 Source: patient and old records reviewed Mode of arrival: ambulatory Limitations: no limitations History of Present Illness ED Provider: Dr. Dalila Alberto HPI narrative: 59-year-old male with history of neurogenic bladder, BPH, frequent emergency department visits for this reason. He lives in a long-term. Has been here twice today for the same reason. States his bladder is causing him discomfort and he wants to be straight cathed. States he has been walking all over the city and ?no one will help him?. No change in his feelings of anxiety surrounding his long-term environment. He denies any direct harm but states that he does not feel supported in his bladder issues, specifically that they will give him that time or space to empty his bladder. He does have supplies though. Related Data Home Medications ?Medication ?Instructions ?Recorded ?Confirmed aripiprazole 30 mg tablet 30 mg PO DAILY 01/31/25 02/03/25 lorazepam 1 mg tablet 1 mg PO DAILY PRN Anxiety 01/31/25 02/03/25 quetiapine 100 mg tablet 100 mg PO BEDTIME 01/31/25 02/03/25 quetiapine 50 mg tablet 50 mg PO BID 01/31/25 02/03/25 olanzapine 10 mg tablet 10 mg PO TID 02/03/25 02/03/25 Previous Rx's ?Medication ?Instructions ?Recorded atorvastatin 20 mg tablet 20 mg PO QPM 90 days #90 tabs 01/10/25 tamsulosin 0.4 mg capsule 0.4 mg PO QAM 90 days #90 caps 01/10/25 Allergies Allergy/AdvReac Type Severity Reaction Status Date / Time No Known Allergies (NO KNOWN Allergy Unknown UNKNOWN Verified 02/02/25 13:44 ALLERGIES) Review of Systems Review of Systems: as per HPI, full review of systems performed and negative but for the above mentioned pertinent positives and negatives. [facility] Past Medical History Medical History Smoker GERD without esophagitis Tubular adenoma of colon (~2018) Personal history of nicotine dependence Constipation Back pain Schizoaffective disorder, bipolar type Anxiety Benign prostatic hyperplasia with lower urinary tract symptoms Pure hypercholesterolemia Thought disorder Bipolar 1 disorder Mood disorder Surgical History History of colonoscopy (~04/2019) History of prostate surgery (~04/2019) History of open reduction and internal fixation (ORIF) procedure (~08/2018) Family History Family History Father Lung cancer BPH (benign prostatic hyperplasia) Mother Dementia Brother Myocardial infarction Other Mental health problem Substance abuse Social History Social History Household Members: Other Housing: Other Housing Other:: [facility] Do you presently have visiting nurse or other home services: No Unable to assess alcohol history related to: Unknown Alcohol intake: never Patient Tobacco Use Status: Current everyday Tobacco user Tobacco use type: Cigarette Cigarette Packs Per Day: 0.5 Cigarettes Per Day: 10.0 Years Smoked: 10 Smoked in Last 30 Days: Yes e-Cigarette/Vaping Use: Currently Using Patient Interested in Nicotine Replacement: Yes Patient Given Instructions on How to Stop Smoking: No (Pt declined, states he is uninterested in smoking cessation) Second Hand Smoke Exposure: No Currently Displaying Signs/Symptoms of Drug Intoxication Withdrawal: No Have you been hit, kicked, punched, or otherwise hurt by someone within the past year? If so, by whom?: No Do you feel safe in your current relationship?: No Current Relationship Is there a partner from a previous relationship who is making you feel unsafe now?: No Are you made to feel afraid or neglected: No Spiritual Healthcare Practices: Sikhism Advance Directives: Yes Advance Directives Information Provided: Yes Advance Directives on File: No Do you have thoughts of harming others: None Do you have a plan to hurt others: No Plan Recently lost weight without trying: Yes How much weight loss: Unsure Eating poorly because of decreased appetite: Yes Nutrition screen score: 5 Nutrition Risks: Anorexia Poor oral hygiene: No service: No Current occupational status: employed Current occupation: [employer] Sexual orientation: Straight/Heterosexual Cognitive needs: No Hearing needs: No Vision needs: Yes Physical Exam ED Exam Exam: GENERAL: Unkempt, anxious. SKIN: Normal skin color for ethnicity, warm, dry, no rashes noted. HEENT:? Normocephalic, atraumatic, no stridor, posterior oropharynx nonerythematous, dentition intact, EOMI. NECK: Soft, supple, full ROM, midline structures nontender, no step-offs, no deformities, no lymphadenopathy. CHEST: Heart regular rate and rhythm, no murmurs, symmetric chest rise and fall. PULMONARY: Clear to auscultation bilaterally, no labored breathing, no wheezes/rhales/rhonchi. ABDOMINAL: Soft, nondistended, no suprapubic tenderness to palpation, positive bowel sounds in all quadrants. : Deferred. MUSCULOSKELETAL: Normal tone, full range of motion, no deformities, no peripheral edema. NEURO: Alert and oriented x3, CN II through XII intact, equal strength and sensation bilateral upper and lower extremities, no focal neurologic deficits.? PSYCHIATRIC: Flat affect, poor eye contact, anxious Vital Signs: Vital Signs - 24 hr 02/02/25 01:05 Temperature 98.1 F Pulse Rate 82 Respiratory Rate 18 Blood Pressure 126/64 Pulse Oximetry 97 Oxygen Delivery Method Room Air BMI result Body Mass Index 21.1 Medical Decision Making Medical Decision Making [facility] Narrative: Balbir is very well known to this emergency department. I have seen him 3 times this week alone. I had another discussion with him regarding his frequent visits to the emergency department today and reiterated the fact that we would not be performing a straight catheterization on him today. He was given the supplies to do it himself and drained about 300 cc from his bladder. He says You have no idea what it is like to be sexually frustrated and to be unable to ejaculate when asked what he is looking for from his emergency department visit for the second time today. He was seen earlier by care team and discharged with outpatient resources. He is now requesting discharge again. Admission/Observation Consideration of admission/observation: Escalation of care including admission/observation considered Lab Data [facility] Lab Attestation statement: I reviewed the patient's lab results. (from previous visit earlier today) Discharge Plan Discharge Clinical Impression: Neurogenic bladder Patient Disposition: Home, Self-Care Instructions: Depression in Older Adults (ED) Prescriptions: No Action quetiapine 100 mg tablet 100 mg PO BEDTIME lorazepam 1 mg tablet 1 mg PO DAILY PRN (Reason: Anxiety) aripiprazole 30 mg tablet 30 mg PO DAILY quetiapine 50 mg tablet 50 mg PO BID olanzapine 10 mg tablet 10 mg PO TID tamsulosin 0.4 mg capsule 0.4 mg PO QAM 90 Days Qty: 90 0RF atorvastatin 20 mg tablet 20 mg PO QPM 90 Days Qty: 90 3RF Interventions: ED Discharge Assessment Last Done: 02/02/25 03:17 Discharge Date/Time: 02/02/25 03:17 Print Language: Swedish
--- NOTE | 2025-02-02 02:29 | MHC.EDTECH ---
575 ml of clear yellow urine was emptied from the straight cath urine bag. Post void bladder scan of 0 ml
--- NOTE | 2025-02-02 02:41 | PC.NURSE ---
Pt brought back to bed for evaluation. Once in the room this RN approached adn provided introductions. Immediately before being able to finish my statement the pt began to state I'm not going back to that place , going further to explain that he was seen here recently for the same and was not helped. The pt also often referenced not feeling well and this thing while pointing to or grabbing his penis. The pt reports that he had not self cathed since earlier in the day before leaving the as he was walking around all day and didnt have access to his supplies. Bladder scan complete, straight cath kit provided and post void residual scan also complete. Provider to bedside for primary evaluation.
[2025-02-02 03:04] VITALS: BP 109/76; PULSE 76; RESP 18; O2SAT 96
[2025-02-02 03:17] VITALS: BP 109/76; PULSE 76; RESP 18; TEMP -17.7; TEMP 0; O2SAT 96
== END 2025-02-02 03:17 | disposition home or self-care (01) ==
PROVIDERS: Emergency Provider Emergency Medicine; PCP Internal Medicine
DX: N31.9 Neuromuscular dysfunction of bladder, unspecified (principal); N40.0 Benign prostatic hyperplasia without lower urinary tract symptoms; F31.9 Bipolar disorder, unspecified; Z72.0 Tobacco use; Z79.899 Other long term (current) drug therapy
CPT/HCPCS: 99283

== ENCOUNTER 2025-02-02 13:33 | Inpatient (IN) | payer MEDICARE, MEDICAID, SELFPAY ==
--- OUTSIDE RECORDS SUMMARY | 2025-01-28 21:14 | XMS_ITS | Encounter Summary ---
Author Organization [facility] Address [address] [place] [address] Care Team Providers Care Dry Press Operator Name Role Phone Dk Rodriguez MD Primary Care Provider + [phone] Reason for Visit * Reason Comments Male Problem My bladder feels fu ll Encounter Details Date Type Department Care Team (Late st Contact Info) Description 01/28/2025 9:14 PM EDT - 01/28/2025 11:28 PM EDT Emergency [facility] Emergency [address] [place] [address] Discharge Disposition: Home or Self [...] on filedocumented in this encounter Care Teams Dry Press Operator Relationship Specialty Start Date End Date Dk Rodriguez MD [address] [place] [address] Dr [address] COY Lucero PCP - General Internal Medicine 07/16/24 documented as of this encounter
--- OUTSIDE RECORDS SUMMARY | 2025-01-30 20:57 | XMS_ITS | Encounter Summary ---
Author Organization [facility] Address [address] [place] [address] Care Team Providers Care Fabrication Welder Name Role Phone Dk Rodriguez MD Primary Care Provider [phone] Reason for Visit * Reason Comments Abdominal Pain Abdominal pain 2 wee ks ago Encounter Details Date Type Department Care Team (Late st Contact Info) Description 01/30/2025 8:57 PM EDT - 01/31/2025 12:33 AM EDT Emergency [facility] Emergency [address] [place] [phone] Discharge Disposition: Home or Self Care Social [...] on filedocumented in this encounter Care Teams Fabrication Welder Relationship Specialty Start Date End Date Dk Rodriguez MD [address] [place] [address] Dr [address] COY Lucero PCP - General Internal Medicine 07/16/24 documented as of this encounter
--- OUTSIDE RECORDS SUMMARY | 2025-02-01 20:58 | XMS_ITS | Encounter Summary ---
Author Organization [facility] Address [address] [place] [address] Care Team Providers Care Metallurgical Specialist Name Role Phone Dk Rodriguez MD Primary Care Provider + [phone] Reason for Visit * Reason Comments Urinary Retention C/O urinary retentio n and bladder pain x 1 week Encounter Details Date Type Department Care Team (Late st Contact Info) Description 02/01/2025 8:58 PM EDT - 02/01/2025 10:49 PM EDT Emergency [facility] Emergency [address] [place] [phone] Discharge Disposition: Home or Self Care Social [...] HE HAD A FULL WORK UP AT [facility] AND CT SCAN WITH NOTHING FOUND TO BE WRONG, PT USES TOBACCO [facility] CTR RECORDS REQUESTED documented in this encounter Plan of Treatment Not on file documented as of this encounter Visit Diagnoses Not on filedocumented in this encounter Care Teams Metallurgical Specialist Relationship Specialty Start Date End Date Dk Rodriguez MD [address] [place] [address] [address] [place] PCP - General Internal Medicine 07/16/24 documented as of this encounter
[2025-02-02 13:42] VITALS: BP 124/66; PULSE 85; RESP 18; TEMP 36.8; O2SAT 98; BMI 21.3
--- OUTSIDE RECORDS SUMMARY | 2025-02-02 13:52 | XMS_ITS | Clinical Summary ---
Author Organization [facility] Address [address] [place] [address] Phone Care Team Providers Care Sap Architect Name Role Phone Dk Rodriguez MD Primary Care Provider [phone]- [phone] Allergies No known active allergies Medications No known medications Encounters Date Type Department Care Team Description 02/01/2025 8:58 PM EDT - 02/01/2025 10:49 PM EDT [facility] Emergency [address] [place] [phone] Discharge Disposition: Home or Self Care 01/30/2025 8:57 PM EDT - 01/31/2025 12:33 AM EDT [facility] Emergency [address] [place] [phone] Discharge Disposition: Home or Self Care 01/28/2025 9:14 PM EDT - 01/28/2025 11:28 PM EDT [facility] Emergency [address] [place] [phone] Discharge Disposition: Home or Self Care 01/14/2025 8:53 PM EDT - 01/15/2025 12:26 AM EDT Emergency [facility] Emergency [address] [place] [phone] Discharge Disposition: Home or Self Care 01/12/2025 8:45 PM EDT - 01/12/2025 11:57 PM EDT [facility] Emergency [address] [place] [phone] Dilcia Carl MD Discharge Disposition: Left Against Medical Advice 12/04/2024 11:34 PM EDT - 12/05/2024 1:06 AM EDT [facility] Emergency [address] [place] [phone] Discharge Disposition: Home or Self Care 12/02/2024 10:00 PM EDT - 12/03/2024 12:28 AM EDT [facility] Emergency [address] [place] [phone] Discharge Disposition: Home or Self Care 11/27/2024 10:17 PM EDT - 11/28/2024 8:54 AM EDT [facility] Emergency [address] [place] [phone] Discharge Disposition: Home or Self Care 11/26/2024 9:40 PM EDT - 11/27/2024 2:06 AM EDT [facility] Emergency [address] [place] [phone] Discharge Disposition: Home or Self Care 11/24/2024 11:19 PM EDT - 11/25/2024 1:14 AM EDT [facility] Emergency [address] [place] [phone] Discharge Disposition: Home or Self Care 11/23/2024 11:27 PM EDT - 11/24/2024 1:10 AM EDT [facility] Emergency [address] [place] [phone] Urinary retention (Primary Dx) Discharge Disposition: Home or Self Care 11/22/2024 10:08 PM EDT - 11/23/2024 2:55 AM EDT [facility] Emergency [address] [place] [phone] Discharge Disposition: Home or Self Care 11/18/2024 3:47 AM EDT - 11/18/2024 5:34 AM EDT [facility] Emergency [address] [place] [phone] Discharge Disposition: Home or Self Care 11/09/2024 12:37 AM EDT - 11/09/2024 4:23 AM EDT [facility] Emergency [address] [place] [address] [place] [phone] Discharge Disposition: Home or Self Care from Last 3 Months Medical History Medical History Date Comments Bipolar 1 disorder ([facility] V24, [facility] V28) Mood disorder ([facility] V24) Hyperactivity of bladder Social History [...] LAB HEMETOLOGY METHOD 12/05/2024 12:52 AM [facility] RBC 4.00(L) 4.50 - 5.50 M/mcL LAB HEMETOLOGY METHOD 12/05/2024 12:52 AM [facility] Hemoglobin 12.7(L) 13.5 - 17.5 g/dL LAB HEMETOLOGY METHOD 12/05/2024 12:52 AM [facility] Hematocrit 37.3(L) 42.0 - 54.0 % LAB HEMETOLOGY METHOD 12/05/2024 12:52 AM [facility] MCV 93.7 79.0 - 98.0 FL LAB HEMETOLOGY METHOD 12/05/2024 12:52 AM [facility] MCH 31.9 27.0 - 32.0 pcg LAB HEMETOLOGY METHOD 12/05/2024 12:52 AM [facility] MCHC 34.0 32.0 - 37.0 g/dL LAB HEMETOLOGY METHOD 12/05/2024 12:52 AM [facility] RDW 13.2 11.0 - 15.0 % LAB HEMETOLOGY METHOD 12/05/2024 12:52 AM [facility] Platelets 207 130 - 400 K/mcL LAB HEMETOLOGY METHOD 12/05/2024 12:52 AM [facility] MPV 9.4 7.0 - 11.0 FL LAB HEMETOLOGY METHOD 12/05/2024 12:52 AM [facility] NRBC 0.0 <1.0 % LAB HEMETOLOGY METHOD 12/05/2024 12:52 AM [facility] NRBC Absolute 0.00 <0.10 K/mcL LAB HEMETOLOGY METHOD 12/05/2024 12:52 AM [facility] Neutrophils Relative 56.8 % LAB HEMETOLOGY METHOD 12/05/2024 12:52 AM [facility] Lymphocytes Relative 27.7 % LAB HEMETOLOGY METHOD 12/05/2024 12:52 AM [facility] Monocytes Relative 11.1 % LAB HEMETOLOGY METHOD 12/05/2024 12:52 AM [facility] Eosinophils Relative 3.3 % LAB HEMETOLOGY METHOD 12/05/2024 12:52 AM [facility] Basophils Relative 0.8 % LAB HEMETOLOGY METHOD 12/05/2024 12:52 AM [facility] Immature Granulocytes Relative 0.3 % LAB HEMETOLOGY METHOD 12/05/2024 12:52 AM [facility] Neutrophils Absolute 4.19 1.50 - 7.00 K/mcL LAB HEMETOLOGY METHOD 12/05/2024 12:52 AM [facility] Lymphocytes Absolute 2.04 1.00 - 5.00 K/mcL LAB HEMETOLOGY METHOD 12/05/2024 12:52 AM [facility] Monocytes Absolute 0.82 0.20 - 1.00 K/mcL LAB HEMETOLOGY METHOD 12/05/2024 12:52 AM [facility] Eosinophils Absolute 0.24 0.00 - 0.50 K/mcL LAB HEMETOLOGY METHOD 12/05/2024 12:52 AM [facility] Basophils Absolute 0.06 0.00 - 0.20 K/mcL LAB HEMETOLOGY METHOD 12/05[facility]24 [facility] Immature Granulocytes Absolute 0.02 0.00 - 0.03 K/mcL LAB HEMETOLOGY METHOD 12/05/2024 12:52 AM [facility] Blood Venous blood specimen / Unknown Venipuncture / Unknown 12/05/2024 12:00 AM EDT 12/05/2024 12:45 AM EDT us Dalila Alberto MD LAB BLOOD ORDERABLES Fin al Result [facility] [address] [place] [address], [place] [phone] * (ABNORMAL) Comprehensive metabolic panel (12/05/2024 12:00 AM EDT) Sodium 139 133 - 145 mmol/L LAB CHEMISTRY METHOD 12/05/2024 1:25 AM [facility] Potassium 3.6 3.5 - 5.5 mmol/L LAB CHEMISTRY METHOD 12/05/2024 1:25 AM [facility] Chloride 108 96 - 110 mmol/L LAB CHEMISTRY METHOD 12/05/2024 1:25 AM [facility] CO2 26 21 - 32 mmol/L LAB CHEMISTRY METHOD 12/05/2024 1:25 AM [facility] Anion Gap 5 3 - 11 LAB CHEMISTRY METHOD 12/05/2024 1:25 AM [facility] Glucose 80 70 - 100 mg/dL LAB CHEMISTRY METHOD 12/05/2024 1:25 AM [facility] BUN 8 5 - 25 mg/dL LAB CHEMISTRY METHOD 12/05/2024 1:25 AM [facility] Creatinine 0.69(L) 0.70 - 1.30 mg/dL LAB CHEMISTRY METHOD 12/05/2024 1:25 AM [facility] eGFR 107 >=60 mL/min/1. 73m2 LAB CHEMISTRY METHOD 12/05/2024 1:25 AM [facility] Comment:Calculation based on the Chronic Kidney Disease Epidemiology Collaboration (CKD-EPI) equation refit without adjustment for race. BUN/Creatinine Ratio 11.6 LAB CHEMISTRY METHOD 12/05/2024 1:25 AM [facility] Calcium 8.6 8.5 - 10.5 mg/dL LAB CHEMISTRY METHOD 12/05/2024 1:25 AM [facility] AST (SGOT) 13 10 - 42 unit/L LAB CHEMISTRY METHOD 12/05/2024 1:25 AM [facility] ALT (SGPT) 16 10 - 60 unit/L LAB CHEMISTRY METHOD 12/05/2024 1:25 AM [facility] Alkaline Phosphatase 67 42 - 121 unit/L LAB CHEMISTRY METHOD 12/05/2024 1:25 AM [facility] Total Protein 6.3 6.0 - 8.0 g/dL LAB CHEMISTRY METHOD 12/05/2024 1:25 AM [facility] Albumin 3.3 3.2 - 5.0 g/dL LAB CHEMISTRY METHOD 12/05/2024 1:25 AM [facility] Total Bilirubin 0.4 0.0 - 1.4 mg/dL LAB CHEMISTRY METHOD 12/05/2024 1:25 AM [facility] Blood Venous blood specimen / Unknown Venipuncture / Unknown 12/05/2024 12:00 AM EDT 12/05/2024 12:45 AM EDT us Dalila Alberto MD LAB BLOOD ORDERABLES Fin al Result [facility] [address] [place] [address], [place] [phone] * (ABNORMAL) Urinalysis with reflex microscopic and culture (11/23/2024 11:28 PM EDT) Specific [place] Urine 1.007 1.003 - 1.030 LAB URINALYSIS - AUTOMATED METHOD 11/24/2024 12:11 AM [facility] pH, Urine 6.5 5.0 - 8.0 pH LAB URINALYSIS - AUTOMATED METHOD 11/24/2024 12:11 AM [facility] Leukocytes, Urine Moderate(A) Negative LAB URINALYSIS - AUTOMATED METHOD 11/24/2024 12:11 AM [facility] Nitrite, Urine Negative Negative LAB URINALYSIS - AUTOMATED METHOD 11/24/2024 12:11 AM [facility] Protein, Urine Negative <=Trace mg/dL LAB URINALYSIS - AUTOMATED METHOD 11/24/2024 12:11 AM [facility] Glucose, Urine Negative Negative mg/dL LAB URINALYSIS - AUTOMATED METHOD 11/24/2024 12:11 AM [facility] Ketones, Urine Negative Negative mg/dL LAB URINALYSIS - AUTOMATED METHOD 11/24/2024 12:11 AM [facility] Urobilinogen , Urine 0.2 0.2 - 1.0 mg/dL LAB URINALYSIS - AUTOMATED METHOD 11/24/2024 12:11 AM [facility] Bilirubin, Urine Negative Negative LAB URINALYSIS - AUTOMATED METHOD 11/24/2024 12:11 AM [facility] Blood, Urine Negative Negative LAB URINALYSIS - AUTOMATED METHOD 11/24/2024 12:11 AM [facility] RBC, Urine 1.3 0 - 4 /HPF LAB URINALYSIS - AUTOMATED METHOD 11/24/2024 12:11 AM [facility] WBC, Urine 8.1(H) 0 - 4 /HPF LAB URINALYSIS - AUTOMATED METHOD 11/24/2024 12:11 AM [facility] Squamous Epithelial, Urine 14 0 - 60 /LPF LAB URINALYSIS - AUTOMATED METHOD 11/24/2024 12:11 AM EDT [facility] Bacteria, Urine Negative Negative /HPF LAB URINALYSIS - AUTOMATED METHOD 11/24/2024 12:11 AM EDT [facility] Hyaline Casts, Urine 0.4 0 - 3 /LPF LAB URINALYSIS - AUTOMATED METHOD 11/24/2024 12:11 AM EDT [facility] Urine Urine specimen obtained by clean catch procedure / Unknown Non-blood Collection / Unknown 11/23/2024 11:28 PM EDT 11/24/2024 12:03 AM EDT us Ming Love MD LAB URINE ORDERABLES Final Res ult Performing Organization Address [facility]/ZIP Co de Phone Number [facility] [address] [place] [address], [place] [phone] * [place] urine culture tube (11/23/2024 11:28 PM EDT) Extra Tube Hold for add-ons. 11/25/2024 1:01 AM EDT [facility] Comment:Auto resulted. Urine Urine specimen obtained by clean catch procedure / Unknown Non-blood Collection / Unknown 11/23/2024 11:28 PM EDT 11/24/2024 12:03 AM EDT us Ming Love MD LAB URINE ORDERABLES Final Res ult Performing Organization Address City/[facility]/ZIP Co de Phone Number [facility] [address] [place] [address], [place] [phone] * Culture urine (11/23/2024 11:28 PM EDT) Culture, Urine <10,000 CFU/mL gram positive cocci, insignificant count, no further workup 11/25/2024 10:10 AM EDT [facility] Urine Urine specimen obtained by clean catch procedure / Unknown Non-blood Collection / Unknown 11/23/2024 11:28 PM EDT 11/24/2024 12:11 AM EDT us Ming Love MD LAB MICROBIOLOGY - GENERAL ORD ERABLES Final Result [facility] ([facility]) [facility] [address] [place] [address], from Last 3 Months Insurance [id number] [facility] [place] [address] MEDICARE MEDICAID - [place] Care Teams Sap Architect Relationship Specialty Start Date End Date Dk Rodriguez MD [address] [place] [address] [address] [place] PCP - General Internal Medicine 07/16/24
--- OUTSIDE RECORDS SUMMARY | 2025-02-02 13:52 | XMS_ITS | Clinical Summary ---
Author Organization [facility] Address [address] [place] [address] Care Team Providers Care Multimedia Engineer Name Role Phone Ref, Has No Pcp [...] Plan (01/03/2024 2:32 PM EDT): Presents from [facility] in the setting of urinary retention [...] Plan (01/03/2024 10:49 AM EDT): Presented from [facility] with hyponatremia (initially 123). Also had [...] Plan (01/02/2024 11:43 AM EDT): Presents from [facility] in the setting of urinary retention and outpatient labs showing sodium 123. On arrival to ED patient had Schafre placed. BMP showed sodium 122 with normal [...] Seroquel 25 mg twice daily Presents from [facility]'s forensic unit with documented history of schizophrenia. Continue home aripiprazole 20mg daily Continue home carbamazepine 500 mg twice daily Continue home Zyprexa 15 mg nightly Continue home Seroquel 25 mg twice daily Consider psychiatry consult if concern that antipsychotic medications are causing SIADH Patient presents from [facility], requires constant observation Assessment & Plan (01/02/2024 11:43 AM EDT): Home medications: aripiprazole 20 mg daily, carbamazepine 500 mg twice daily, Zyprexa 15 mg nightly, Seroquel 25 mg twice daily Presents from [facility]'s forensic unit with documented history of schizophrenia. Continue home aripiprazole 20mg daily Continue home carbamazepine 500 mg twice daily Continue home Zyprexa 15 mg nightly Continue home Seroquel 25 mg twice daily Consider psychiatry consult if concern that antipsychotic medications are causing SIADH Patient presents from [facility], requires constant observation BPH (benign prostatic hyperplasia) 12/30/2023 Assessment & Plan (01/03/2024 2:33 PM EDT): Paperwork from the [facility] center indicates history of BPH with prior need for intermittent catheterization requiring urology evaluation in the past, records not available in our system). Per documentation from [facility] patient has seen urology at [facility] in [place]. He was started on Flomax outpatient. In [...] (01/02/2024 11:43 AM EDT): Paperwork from the [facility] indicates history of BPH with prior need for intermittent catheterization requiring urology evaluation in the past, records not available in our system). Per documentation from [facility] patient has seen urology at [facility] in [place]. He was started on Flomax outpatient. In [...] (1 - 1-dose 75+ series) 2040 Insurance [facility] MEDICARE [facility] Advance Directives * Full Code (Latest Code Status on File) Date Activated Date Inactivated Comments 12/30/2023 7:22 PM 01/03/2024 8:48 PM * Presumed Full Code Date Activated Date Inactivated Comments 12/30/2023 7:00 PM 12/30/2023 7:22 PM Care Teams Multimedia Engineer Relationship Specialty Start Date End Date Ref, Has No Pcp Or DO NOT EDIT THIS RECORD VIA [facility] [employer] PCP - General Helicopter Officer 12/30/23
--- OUTSIDE RECORDS SUMMARY | 2025-02-02 13:52 | XMS_ITS | Encounter Summary ---
Author Organization [facility] Address [address] [place] [address] Care Team Providers Care Communications Equipment Operator Name Role Phone Ref, Has No Pcp Or Primary Care Provider Unavail able Encounter Details Date Type Department Care Team (Late st Contact Info) Description 01/04/2024 Community Orders [facility] EpicCare Link [address] [place] [address] Bethany Lozano, TRANSIT MIXER OPERATOR [address] [place] [address] Social History Tobacco Use Types Packs/Day Years [...] on filedocumented in this encounter Care Teams Communications Equipment Operator Relationship Specialty Start Date End Date Ref, Has No Pcp Or DO NOT EDIT THIS RECORD VIA PROVIDER ON THE FLY PCP - General Pin Or Clip Fastener 12/30/23 documented as of this encounter
--- NOTE | 2025-02-02 14:06 | ED.GENADULT ---
HPI - General Adult General Chief complaint: Psychiatric Symptoms Stated complaint: crisis Time Seen by Provider: 02/02/25 13:57 Source: patient Mode of arrival: ambulatory Limitations: no limitations History of Present Illness ED Provider: Fozia Jordan PA-C HPI narrative: Patient is a 59 year old assigned male at with a history of BPH, chronic suprapubic pain, GERD, HLD, and schizoaffective disorder presenting to the emergency department today with anxiety. Patient states that he is feeling very anxious about his senior care situation and the fact that he may have to have a surgery on his prostate. Patient states that he is not having any thoughts of hurting himself or others. Patient denies any other complaints at this time. Related Data Home Medications ?Medication ?Instructions ?Recorded ?Confirmed aripiprazole 30 mg tablet 30 mg PO DAILY 01/31/25 02/03/25 lorazepam 1 mg tablet 1 mg PO DAILY PRN Anxiety 01/31/25 02/03/25 quetiapine 100 mg tablet 100 mg PO BEDTIME 01/31/25 02/03/25 quetiapine 50 mg tablet 50 mg PO BID 01/31/25 02/03/25 olanzapine 10 mg tablet 10 mg PO TID 02/03/25 02/03/25 Previous Rx's ?Medication ?Instructions ?Recorded atorvastatin 20 mg tablet 20 mg PO QPM 90 days #90 tabs 01/10/25 tamsulosin 0.4 mg capsule 0.4 mg PO QAM 90 days #90 caps 01/10/25 Allergies Allergy/AdvReac Type Severity Reaction Status Date / Time No Known Allergies (NO KNOWN Allergy Unknown UNKNOWN Verified 02/02/25 13:44 ALLERGIES) Review of Systems Constitutional: Constitutional: Reports as per HPI Eyes: Eyes: Reports as per HPI ENT: Reports as per HPI Cardiovascular: Cardiovascular: Reports as per HPI Respiratory: Respiratory: Reports as per HPI Gastrointestinal: Gastrointestinal: Reports as per HPI Genitourinary: Genitourinary: Reports as per HPI Musculoskeletal: Musculoskeletal: Reports as per HPI Integumentary/Breasts: Skin/Breast: Reports as per HPI Neurologic: Reports as per HPI Psychiatric: Psychiatric: Reports as per HPI Endocrine: Endocrine: Reports as per HPI Hematologic/Lymphatic: Hematologic/Lymphatic: Reports as per HPI Allergic/Immunologic: Allergic/Immunologic: Reports as per HPI [facility] Past Medical History Attestation statement: The following information was validated with the patient. Source: old records reviewed and nursing notes reviewed Medical History Smoker GERD without esophagitis Tubular adenoma of colon (~2018) Personal history of nicotine dependence Constipation Back pain Schizoaffective disorder, bipolar type Anxiety Benign prostatic hyperplasia with lower urinary tract symptoms Pure hypercholesterolemia Thought disorder Bipolar 1 disorder Mood disorder Surgical History History of colonoscopy (~04/2019) History of prostate surgery (~04/2019) History of open reduction and internal fixation (ORIF) procedure (~08/2018) Family History Family History Father Lung cancer BPH (benign prostatic hyperplasia) Mother Dementia Brother Myocardial infarction Other Mental health problem Substance abuse Social History Social History Household Members: None Housing: Assisted Living Facility Housing Other:: senior care Do you presently have visiting nurse or other home services: No Unable to assess alcohol history related to: Unknown Alcohol intake: never Patient Tobacco Use Status: Current everyday Tobacco user Tobacco use type: Cigarette Cigarette Packs Per Day: 0.5 Cigarettes Per Day: 5 Years Smoked: 10 e-Cigarette/Vaping Use: Never Used Second Hand Smoke Exposure: Yes Advance Directives: Yes Advance Directives Information Provided: Yes Advance Directives on File: No service: No Current occupational status: employed Current occupation: [employer] Sexual orientation: Decline to Answer Cognitive needs: No Hearing needs: No Vision needs: Yes Physical Exam ED Vital Signs: Vital Signs - 24 hr 02/03/25 15:31 02/04/25 07:51 Temperature 97.7 F 98.0 F Pulse Rate 66 69 Respiratory Rate 18 16 Blood Pressure 101/67 112/71 Pulse Oximetry 97 98 Oxygen Delivery Method Room Air Room Air BMI result Body Mass Index 21.3 Const General: cooperative, no acute distress, alert and awake Nutritional Appearance: well nourished Orientation/consciousness: patient oriented x3 HENMT Head: Yes normal to inspection and Yes atraumatic Ears: hearing grossly normal bilaterally and external ears normal General nose exam: Normal external nose present, no nasal discharge noted and no epistaxis Face and sinus: Yes normal facial exam, No abrasion and No laceration Mouth: Normal oral and palatal mucosa present, no drooling and no muffled voice Eyes General: appearance normal, both eyes and all related structures Periorbital: periorbital findings normal Eyelids: Yes eyelids normal Conjunctivae: conjunctivae normal Pupils: Equal, round and reactive pupils present EOM: EOMs intact bilaterally Neck Neck: Yes normal visual inspection and Yes full ROM Resp Effort & Inspection: normal respiratory effort and able to speak in complete sentences Neuro General: patient oriented x3, moves all extremities and CN's II-XI intact bilaterally Cranial nerves: Yes Equal, round and reactive pupils present Cognition (Neuro): normal cognition Extrem General: Yes normal to inspection, Yes full ROM and Yes capillary refill normal Psych Appearance: grossly normal Mental Status: mental status grossly normal Affect: Labile affect present Course Reevaluation(s) Reevaluation #1: Patient's medical reconciliation is complete, will be monitored pending disposition Time: 08:01 Reevaluation #2: Time: 06:09 Date: 02/04/25 Provider: Kisha Knight DO Patient in physician observation for psychiatric evaluation.? No acute events reported overnight. No current complaints. VS stable.? Patient is in bed search status. Will continue to monitor. Reevaluation #3: Time: 14:00 Date: 02/04/25 Provider: Kisha Knight DO Physician observation ended at 1400 Patient to be admitted as inpatient to psychiatry. wait on urine culture no bacteria or nitrates. Medications Administered Generic Name Dose Route Start Last Admin Trade Name Freq PRN Reason Stop Dose Admin Aripiprazole 30 mg 02/03/25 09:00 02/04/25 08:26 Aripiprazole 30 Mg Tablet PO 30 mg DAILY RENAE Administration Atorvastatin Calcium 20 mg 02/03/25 21:00 02/03/25 19:47 Atorvastatin Calcium 20 Mg Tablet PO 20 mg BEDTIME RENAE Administration Olanzapine 10 mg 02/03/25 09:00 02/04/25 08:26 Olanzapine 10 Mg Tablet PO 10 mg TID RENAE Administration Quetiapine Fumarate 50 mg 02/03/25 09:00 02/04/25 08:26 Quetiapine Fumarate 50 Mg Tablet PO 50 mg BID RENAE Administration Quetiapine Fumarate 100 mg 02/03/25 21:00 02/03/25 19:47 Quetiapine Fumarate 100 Mg Tablet PO 100 mg BEDTIME RENAE Administration Tamsulosin HCl 0.4 mg 02/03/25 09:00 02/04/25 08:28 Tamsulosin Hcl 0.4 Mg Capsule PO 0.4 mg DAILY RENAE Administration Medical Decision Making Medical Decision Making MDM Narrative: Patient is a 59 year old assigned male at with a history of BPH, chronic suprapubic pain, GERD, HLD, and schizoaffective disorder presenting to the emergency department today with anxiety. Patient's physical exam was as noted in the physical exam portion of this note. Patient's blood work was unremarkable. Patient's urine showed a possible UTI however, the patient does not currently have any UTI symptoms - will await culture before beginning treatment. Patient's EKG was unremarkable. I explained my physical exam findings as well as all test results to the patient. I answered all questions asked by the patient. Patient was evaluated by the CARE team who recommended inpatient level of psychiatric care for mood stabilization and further medication management.. Patient placed in observation at 1449 pending either admission here at the [facility] psychiatric unit or transferred to an appropriate psychiatric facility. Differential Diagnosis Differential Diagnoses: The differential diagnosis associated with the presentation includes Decompensation Mood destabilization Anxiety Admission/Observation Consideration of admission/observation: Escalation of care including admission/observation considered Patient will either be admitted here at [facility] on the psychiatric floor or transferred to an appropriate inpatient psychiatric facility. Consult Healthcare Provider Management of the patient was discussed with: Behavioral Health Provider (spoke with the CARE team as noted in the MDM Rationale portion of this note. ) Lab Data [facility] Lab Attestation statement: I reviewed the patient's lab results. My interpretation of these results are in the MDM Rationale portion of this note. 02/02/25 14:59 02/02/25 14:59 Labs: Lab Results 02/02/25 02/02/25 Range/Units 14:59 15:13 WBC 7.0 (4.8-10.8) X10*3/uL RBC 4.00 L (4.60-5.80) X10*6/uL Hgb 13.0 L (14.0-18.0) g/dl Hct 37.4 L (42.0-52.0) % MCV 93.5 (80.0-98.0) fL MCH 32.5 (27.0-33.0) pg MCHC 34.8 (31.0-36.0) g/dl RDW 13.9 (11.0-16.0) % Plt Count 162 (160-400) X10*3/uL MPV 9.6 (9.4-12.4) fL Immature Gran % (Auto) 0.1 (0.0-0.4) % Neut % (Auto) 69.3 (45-73) % Lymph % (Auto) 20.9 (20-40) % [place] % (Auto) 7.1 (2-11) % Eos % (Auto) 1.7 (0-4) % Baso % (Auto) 0.9 (0-2) % Lymph # (Auto) 1.5 (1.2-4.9) X10*3/uL [place] # (Auto) 0.5 (0.1-1.2) X10*3/uL Eos # (Auto) 0.1 (0.0-0.4) X10*3/uL Baso # (Auto) 0.1 (0.0-0.2) X10*3/uL Abs Immat Gran (auto) 0.01 (0.00-0.03) X10*3/uL Absolute Neuts (auto) 4.9 (2.0-8.3) x10*3/uL Absolute Nucleated RBC 0.000 (0.0-0.012) X10*3/uL Nucleated RBC % (auto) 0.0 (0.0-0.2) /100WBC Sodium 142 (135-145) mmol/L Potassium 3.8 (3.3-5.1) mmol/L Chloride 106 (96-108) mmol/L Carbon Dioxide 25 (22-29) mmol/L Anion Gap 15 (12-20) BUN 10 (9-16) mg/dL Creatinine 0.77 (0.5-1.4) mg/dL Estim Creat Clear Calc 92.7 Estimated GFR > 60 Random Glucose 177 H (60-115) mg/dL Calcium 9.0 (8.4-10.2) mg/dL Total Bilirubin 0.5 (0.0-1.0) mg/dL AST 23 (5-37) U/L ALT 21 (0-40) U/L Alkaline Phosphatase 64 (39-117) U/L Total Protein 6.6 (6.5-8.0) g/dL Albumin 4.1 (3.5-5.0) g/dL Urine Color Yellow Urine Appearance Clear Urine pH 6.0 (5.0-9.0) Ur Specific [place] <= 1.005 (1.005-1.025) Urine Protein Negative (Neg-Trace) mg/dL Urine Glucose (UA) Negative (Negative) mg/dL Urine Ketones Negative (Negative) mg/dL Urine Blood Trace H (Negative) Urine Nitrite Negative (Negative) Ur Leukocyte Esterase Large (3+) H (Negative) Urine RBC 0-2 (0-2) /HPF Urine WBC 21-50 H (0-5) /HPF Ur Squamous Epith Cells 0-2 (0-2) /HPF Urine Bacteria None Seen (None Seen) Hyaline Casts 0-2 (0-2) /LPF Salicylates < 5.0 L (15-30) mg/dL Urine Opiates Screen Not Detected (Not Detect) Ur Buprenorphine Scrn Not Detected (Not Detect) ng/mL Ur Oxycodone Screen Not Detected (Not Detect) ng/mL Urine Methadone Screen Not Detected (Not Detect) ng/mL Urine Fentanyl Screen Not Detected (Not Detect) Acetaminophen < 3 (<30) mcg/mL Ur Barbiturates Screen Not Detected (Not Detect) Ur Phencyclidine Scrn Not Detected (Not Detect) Ur Amphetamines Screen Not Detected (Not Detect) U Benzodiazepines Scrn Not Detected (Not Detect) Urine Cocaine Screen Not Detected (Not Detect) U Marijuana (THC) Screen Not Detected (Not Detect) Ethyl Alcohol < 10 mg/dL COVID-19 (LEE) Negative (Negative) COVID-19 Clin Com See Note Independent Interpretation I performed an independent interpretation of an: EKG Interpretation: I independently interpreted this EKG and am in agreement with the below findings: Vent. Rate: 68 BPM Atrial Rate: 68 BPM P-R Int: 142 ms QRS Dur: 90 ms QT Int: 372 ms P-R-T Axes: 67 11 34 degrees QTcB Int: 395 ms Normal sinus rhythm Normal ECG When compared with ECG of 26-Jan-2025 07:46, No significant change was found DD/ [id number] External Record Review External record reviewed: Inpatient record Critical Care Time Critical Care Time Critical Care Time: Yes Total Critical Care Time: 36 Attestation: I spent 36 minutes of Critical Care Time with this patient. This does not include time spent on separately reported billable procedures. Discharge Plan Discharge Clinical Impression: Acute anxiety Patient Disposition: Admitted As Inpatient Interventions: [place]-Suicide Risk Severity Scale Last Done: 02/03/25 13:47 Admission Worksheet (ED) Last Done: 02/04/25 14:22 Discharge Date/Time: 02/04/25 14:34
--- NOTE | 2025-02-02 14:49 | ECG_ITS ---
Test Reason : R/O PROLONGED QT Blood Pressure : */* mmHG Vent. Rate : 68 BPM Atrial Rate : 68 BPM P-R Int : 142 ms QRS Dur : 90 ms QT Int : 372 ms P-R-T Axes : 67 11 34 degrees QTcB Int : 395 ms Normal sinus rhythm Normal ECG When compared with ECG of 26-Jan-2025 07:46, No significant change was found Referred By: Fozia Jordan Electronically Signed By: RACHEAL VILLAFANA MD
--- NOTE | 2025-02-02 14:57 | PC.NURSE ---
Addendum entered by Alva Davies RN 02/02/25 18:20: Pt could benefit from Adult IPLOC for mood stabilization, medication evaluation, safety and containment. Pt has been to [facility] 17 times in the past 31 days and reported he has been to other area ERs due with similar presentations and concerns around his medical symptoms and increased anxiety. Pt appears to be struggling with managing his anxiety and stress related to his prostate problems as he fears he will need surgery soon. Pt reportedly lost a significant amount of weight in the past 4-5 weeks due to poor sleep and appetite. Pt appears fixated and is perseverating on his medical symptoms asking for more tests and to speak with ER staff about test results. Per residential staff Pt became fixated after hearing from one provider that he might need surgery in the future to address his prostate. Pt struggled to fully engage in assessment due to level of perseverance and needed to be redirected repeatedly. Pt is agreeable to IPLOC and will be placed on section 12 for inability to care for himself and due to his impaired insight and judgement. Original Note: Patient 55 yo male with hx of schizoaffective disorder, living in [facility] run residential who presents who presents confronting behaviors and stating the is not working for him anymore, the is not allowing patient to eat in his room. Was recently evaluated at this facility and was supposed to be discharged to respite but ended up walking back to the residential. Patient also has a urological issue in which he not emptying his bladder secondary to the anticholinergic effects of senior care anti-psychotic use and is perseverating over the possibility of surgery. Attempted to interview the patient and he did not engage. Pending CARE team eval and possible admission.
[2025-02-02 15:09] LABS: MANUAL DIFF FLAG NO
[2025-02-02 15:11] LABS: Hematocrit 37.4 % (42.0-52.0); Hemoglobin 13.0 g/dl (14.0-18.0); Imm Gran Abs Auto 0.01 X10*3/uL (0.00-0.03); Imm Gran Pct Auto 0.1 % (0.0-0.4); Lymphocytes Absolute Auto 1.5 X10*3/uL (1.2-4.9); Mean Corpuscular HGB Conc 34.8 g/dl (31.0-36.0); Mean Corpuscular Hemoglobin 32.5 pg (27.0-33.0); Mean Corpuscular Volume 93.5 fL (80.0-98.0); NRBC Abs Auto 0.000 X10*3/uL (0.0-0.012); NRBC Pct Auto 0.0 /100WBC (0.0-0.2); Platelet Count 162 X10*3/uL (160-400); Red Blood Count 4.00 X10*6/uL (4.60-5.80); White Blood Count 7.0 X10*3/uL (4.8-10.8)
[2025-02-02 15:26] LABS: COVID-19 Test Negative (Negative); IDNOW Serial# 55D5AD1C
[2025-02-02 15:29] LABS: Appearance Urine Clear; Glucose Urine UA Negative (Negative); PH 6.0 (5.0-9.0); Specific Gravity - Urine <= 1.005 (1.005-1.025); UMIC TRIGGER UA YES
[2025-02-02 15:37] LABS: Alanine Aminotransferase 21 U/L (0-40); Albumin Level 4.1 g/dL (3.5-5.0); Alkaline Phosphatase 64 U/L (39-117); Anion Gap 15 (12-20); Aspartate Amino Transferase 23 U/L (5-37); Blood Urea Nitrogen 10 mg/dL (9-16); Calcium 9.0 mg/dL (8.4-10.2); Carbon Dioxide 25 mmol/L (22-29); Chloride 106 mmol/L (96-108); Creatinine Clr Calc Pharmacy 92.7; Estimated Glomerular Filt Rate > 60; Potassium 3.8 mmol/L (3.3-5.1); Sodium 142 mmol/L (135-145); Total Protein 6.6 g/dL (6.5-8.0)
[2025-02-02 15:37] LABS: Cannabinoid Screen Urine Not Detected (Not Detect)
[2025-02-02 15:40] LABS: Acetaminophen LAB < 3 mcg/mL (<30); Salicylate < 5.0 mg/dL (15-30)
[2025-02-03 05:58] VITALS: BP 118/76; PULSE 74; RESP 16; TEMP 37.1; O2SAT 97
--- NOTE | 2025-02-03 08:13 | PHA.MEDREC ---
Pharmacy Consult ? Medication Reconciliation Pharmacy has completed the medication reconciliation.rp has reviewed med rec done by nursing
[2025-02-03] MEDS: ARIPiprazole 30 MG TABLET PO (09:20)
--- NOTE | 2025-02-03 10:05 | PC.NURSE ---
Care assumes report received, Pt is calm and cooperative. He is compliant with breakfast and meds. He asks of he can go home. He denies SI/HI/AVH
--- NOTE | 2025-02-03 11:58 | MHC.CARE ---
CARE team met with Pt. Pt will remain IPLOC at this time.
[2025-02-03 15:31] VITALS: BP 101/67; PULSE 66; RESP 18; TEMP 36.5; O2SAT 97
--- NOTE | 2025-02-03 19:49 | PC.NURSE ---
medicated per mar.
--- NOTE | 2025-02-03 20:44 | PC.NURSE ---
pt medicated per aug and resting in his bed.
--- NOTE | 2025-02-03 23:32 | PC.NURSE ---
pt sleeping at this time.
--- NOTE | 2025-02-04 07:44 | PC.NURSE ---
Assumed care, report received. Pt is calm and watching TV while eating breakfast. safety maintained.
[2025-02-04 07:51] VITALS: BP 112/71; PULSE 69; RESP 16; TEMP 36.7; O2SAT 98
[2025-02-04] MEDS: ARIPiprazole 30 MG TABLET PO (08:26)
[2025-02-04 14:25] VITALS: BP 130/69; PULSE 63; RESP 15; TEMP 36.9; O2SAT 97
[2025-02-04 15:15] VITALS: BMI 20.9
--- NOTE | 2025-02-04 16:01 | HO.PSYADMNOT ---
HPI Date of Service: 02/04/25 Chief Complaint: crisis Sources of Information: patient interviewed, chart reviewed and crisis/core team assessment reviewed HPI Subjective Notes: Barney Warning and Conditional Voluntary Narrative: Patient is a 59-year-old male with history of schizoaffective disorder who self presented to ER due to increased anxiety around his penitentiary and being frustrated with staff along with ongoing anxiety around his prostate issues. Per crisis report, patient has presented to ER 17 times in the past 31 days due to varying medical concerns and appears fixated on the possibility of maybe needing surgery to address his prostate and other medical issues in the future. Patient stated, I am not doing well. I am not right medically and I know it . Patient reports worsening sleep and appetite over the past month which has led to weight loss. Patient feels like his medical problems are not getting addressed by his providers or penitentiary staff. Mood was reported as anxious due to his medical problems and frustrated with his penitentiary stating he does not feel that they take care of him. Denies SI/HI/VH/AH. denies hx of SA/SIB. Last inpatient psychiatric hospitalization was 6 years ago. During admission assessment, patient presents alert and oriented x3. Calm and cooperative. Patient reports feeling anxious ; patient stated, I was told I have prostate and bladder issues. I had a lot of tests in the ER. I had to keep making trips to the ER because of my bladder. They told me that I don't need surgery, so I'm not worried about it. I see a urologist in [place] . When asked why he came to the ER 17 times; pt stated it was d/t concerns about his bladder. Patient denies SI/HI/VH/AH. He reports sleep and appetite are good . Patient stated, nothing is wrong with me mentally. I just got to take my meds and then I can go home . Denies history of SA/SIB. He reports being medication compliant. Patient reports that he would like to stay here for few days and returned to his penitentiary. Past Psychiatric History: Last inpatient psychiatric hospitalization was 6 years ago. Outpatient psychiatric providers through [facility]. Patient can not recall psychiatrist's name. Therapist: Ginger Denies hx of SA/SIB. Medical Evaluation Reviewed: Yes [facility] Medical History Smoker GERD without esophagitis Tubular adenoma of colon (~2018) Personal history of nicotine dependence Constipation Back pain Schizoaffective disorder, bipolar type Anxiety Benign prostatic hyperplasia with lower urinary tract symptoms Pure hypercholesterolemia Thought disorder Bipolar 1 disorder Mood disorder Surgical History History of colonoscopy (~04/2019) History of prostate surgery (~04/2019) History of open reduction and internal fixation (ORIF) procedure (~08/2018) Family History: denies Social History: Lives in penitentiary. single. no kids. Substance History: denies Trauma History: denies Diagnostics Vital Signs (24Hr): Vital Signs - 24 hr 02/04/25 07:51 02/04/25 14:25 Temperature 98.0 F 98.5 F Pulse Rate 69 63 Respiratory Rate 16 15 Blood Pressure 112/71 130/69 Pulse Oximetry 98 97 Oxygen Delivery Method Room Air Room Air BMI result Body Mass Index 20.9 Labs 02/02/25 14:59 02/02/25 14:59 Labs: Laboratory Results - last 48 hr 02/02/25 15:13 Urine Color Yellow Urine Appearance Clear Urine pH 6.0 Ur Specific [place] <= 1.005 Urine Protein Negative Urine Glucose (UA) Negative Urine Ketones Negative Urine Blood Trace H Urine Nitrite Negative Ur Leukocyte Esterase Large (3+) H Urine RBC 0-2 Urine WBC 21-50 H Ur Squamous Epith Cells 0-2 Urine Bacteria None Seen Hyaline Casts 0-2 Meds/Allergies Meds Home Medications ?Medication ?Instructions ?Recorded ?Confirmed ?Type aripiprazole 30 mg tablet 30 mg PO DAILY 01/31/25 02/03/25 History lorazepam 1 mg tablet 1 mg PO DAILY PRN Anxiety 01/31/25 02/03/25 History quetiapine 100 mg tablet 100 mg PO BEDTIME 01/31/25 02/03/25 History quetiapine 50 mg tablet 50 mg PO BID 01/31/25 02/03/25 History olanzapine 10 mg tablet 10 mg PO TID 02/03/25 02/03/25 History Allergies Allergies Allergy/AdvReac Type Severity Reaction Status Date / Time No Known Allergies (NO KNOWN Allergy Unknown UNKNOWN Verified 02/02/25 13:44 ALLERGIES) Mental Status Exam Mental Status Exam Patient Appearance: Appropriate Patient Orientation: Person, Place, Time and Situation Level of Consciousness: Awake and Alert Patient Behavior: Appropriate, Cooperative and Good Eye Contact Mood Description: Anxious Affect Description: Anxious Ability to Follow Directions: Good Speech Pattern: Clear Memory Description: Normal for Patient Hallucinations: None Delusions: Not Present Thought Process: Intact Thought Content: positive for Intact Assessment & Plan Assessment & Plan (1) Schizoaffective disorder, bipolar type: Status: Acute Code(s): F25.0 - Schizoaffective disorder, bipolar type (2) Acute anxiety: Status: Acute Code(s): F41.9 - Anxiety disorder, unspecified Plan Patient is a 59-year-old male with history of schizoaffective disorder who self presented to ER due to increased anxiety around his penitentiary and being frustrated with staff along with ongoing anxiety around his prostate issues. Plan: CV 15 minute safety checks Continue home medications obtain collateral encourage groups discharge planning Patient educated on: diagnosis and medication risk/benefits Reason for continued inpatient stay Substantial Risk for: med/psych decompensation Statement Statement: I have reviewed the history and physical and performed a pertinent examination on my patient. No changes have occurred unless specified. If the History and Physical was not performed prior to admission, the Hospitalist's service will be consulted for completing the admission physical. Time Spent With Patient Time: Total time managing care of this patient today _60___ minutes.
--- NOTE | 2025-02-04 16:21 | PC.NURSE ---
Balbir was admitted to [facility] at 14:25 from [facility] Pod on a CV on 15 min safety checks for treatment of Schizoaffective bipolar type, unspecified anxiety, and unspecified mood disorder. Precipitant of admission include 17 separate visits to [facility] ED out of the last 31 days due to increased anxiety over his enlarged prostate and ?bladder problems?. CARE team determined pt IPLOC to break cycle of perseveration and increased anxiety over somatic concerns. Patient is alert, oriented and cooperative with discharge although he presents with irritability. Mood is anxious. Affect is anxious and irritable. He denies AH/VH/TH. He does not appear to be internally preoccupied or responding to internal stimuli. Not paranoid or suspicious, very perseverative about his ?bladder problem?. States he straight caths himself multiple times daily due to urinary retention. He has not been attending appointments with his medical provider due to anxiety. He denies SI or HI or history of self injurious behavior. Reports weight loss but unable to identify how much he has lost, the time frame or why. Does not endorse any sleep disturbances or dysfunction. He denies substance use and tox screen in the ED was negative. Pt reports BPH, but unable to identify any other medical problems or concerns at thsi time. He smokes ? ppd and does not desire any information on smoking cessation. Has no physical concerns or complaints at this time. Pt does not have a guardian/delvalle order or HCP.
[2025-02-04 20:00] VITALS: BP 118/68; PULSE 66; RESP 16; TEMP 37.1; O2SAT 97
--- NOTE | 2025-02-04 23:34 | PC.NURSE ---
At 2099 patient was offered a straight catheter so that he could empty his bladder. Patient refused to use it at this time.
[2025-02-05 07:05] VITALS: BP 127/80; PULSE 68; RESP 16; TEMP 36.5; O2SAT 98
[2025-02-05] MEDS: ARIPiprazole 30 MG TABLET PO (08:15)
--- NOTE | 2025-02-05 15:13 | HO.PSYCHPN ---
Subjective Subjective Date of Service: 02/05/25 Reason For Visit: crisis Subjective Notes: Conditional Voluntary Interim History: Active on unit. keeping to self. irritable edge. Patient reports feeling fine today; he reports not sleeping well last night d/t waking up every hour since the unit was loud . Patient reports he would like to return home soon. pt stated, I'm going to all the groups. What else do you guys want? . denies SI/HI/VH/AH. Plan to discharge Monday to intermediate; pt aware. Medication Compliance: Yes Side effects from medications: No Attending Groups: Intermittent Mental Status Exam Mental Status Exam Patient Appearance: Appropriate Patient Orientation: Person, Place, Time and Situation Level of Consciousness: Awake and Alert Patient Behavior: Appropriate, Cooperative and Good Eye Contact Mood Description: Anxious Affect Description: Constricted Ability to Follow Directions: Good Speech Pattern: Clear Memory Description: Normal for Patient Hallucinations: None Delusions: Not Present Thought Process: Intact Thought Content: positive for Intact Diagnostics Vital Signs (24Hr): Vital Signs - 24 hr 02/04/25 20:00 02/05/25 07:05 Temperature 98.7 F 97.7 F Pulse Rate 66 68 Respiratory Rate 16 16 Blood Pressure 118/68 127/80 Pulse Oximetry 97 98 Oxygen Delivery Method Room Air Room Air BMI result Body Mass Index 20.9 Labs 02/02/25 14:59 02/02/25 14:59 Medications Medications Current Medications Acetaminophen (Acetaminophen 325 Mg Tablet) 650 mg PO Q6H PRN PRN Reason: Headache/Pain, Scale 1-10 Al Hydroxide/Mg Hydroxide (Magnesium Hydrox/Alum Hydrox 30 Ml Oral.Susp) 30 ml PO Q6H PRN PRN Reason: Heartburn/Nausea Aripiprazole (Aripiprazole 30 Mg Tablet) 30 mg PO DAILY [facility] Last Admin: 02/05/25 08:15 Dose: 30 mg Atorvastatin Calcium (Atorvastatin Calcium 20 Mg Tablet) 20 mg PO BEDTIME [facility]E Last Admin: 02/04/25 20:28 Dose: 20 mg Hydroxyzine HCl (Hydroxyzine Hcl 25 Mg Tablet) 25 mg PO Q6H PRN PRN Reason: mild anxiety Lorazepam (Lorazepam 1 Mg Tablet) 1 mg PO DAILY PRN PRN Reason: Anxiety Magnesium Hydroxide (Milk Of Magnesia 30 Ml Oral.Susp) 30 ml PO DAILY PRN PRN Reason: Constipation Nicotine Polacrilex (Nicotine Polacrilex 2 Mg Gum) 4 mg BUCCAL Q2H PRN PRN Reason: Nicotine Cravings Olanzapine (Olanzapine 10 Mg Tablet) 10 mg PO TID [facility] Last Admin: 02/05/25 15:05 Dose: 10 mg Quetiapine Fumarate (Quetiapine Fumarate 50 Mg Tablet) 50 mg PO BID [facility] Last Admin: 02/05/25 08:15 Dose: 50 mg Quetiapine Fumarate (Quetiapine Fumarate 100 Mg Tablet) 100 mg PO BEDTIME [facility] Last Admin: 02/04/25 20:28 Dose: 100 mg Tamsulosin HCl (Tamsulosin Hcl 0.4 Mg Capsule) 0.4 mg PO DAILY [facility] Last Admin: 02/05/25 08:15 Dose: 0.4 mg Trazodone HCl (Trazodone Hcl 50 Mg Tablet) 50 mg PO BEDTIME MRX1 PRN PRN Reason: Insomnia Allergies Allergies Allergy/AdvReac Type Severity Reaction Status Date / Time No Known Allergies (NO KNOWN Allergy Unknown UNKNOWN Verified 02/02/25 13:44 ALLERGIES) Assessment & Plan Assessment & Plan (1) Schizoaffective disorder, bipolar type: Status: Acute Code(s): F25.0 - Schizoaffective disorder, bipolar type (2) Acute anxiety: Status: Acute Code(s): F41.9 - Anxiety disorder, unspecified Plan Patient is a 59-year-old male with history of schizoaffective disorder who self presented to ER due to increased anxiety around his intermediate and being frustrated with staff along with ongoing anxiety around his prostate issues. Plan: CV 15 minute safety checks Continue home medications obtain collateral encourage groups discharge planning 02/05: Active on unit. keeping to self. irritable edge. Patient reports feeling fine today; he reports not sleeping well last night d/t waking up every hour since the unit was loud . Patient reports he would like to return home soon. pt stated, I'm going to all the groups. What else do you guys want? . denies SI/HI/VH/AH. Plan to discharge Monday to intermediate; pt aware. Patient educated on: diagnosis and medication risk/benefits Reason for continued inpatient stay Substantial Risk for: med/psych decompensation Time Spent With Patient Time: Total time managing care of this patient today __20__ minutes.
[2025-02-05 20:00] VITALS: BP 141/72; PULSE 60; RESP 16; TEMP 36.5; O2SAT 99
[2025-02-06] MEDS: ARIPiprazole 30 MG TABLET PO (08:17)
[2025-02-06 08:22] LABS: Hemoglobin A1C 139.0782 umol/L; Total Hemoglobin (HGBA1C) 3886.0168 umol/L
[2025-02-06 08:34] LABS: Alanine Aminotransferase 23 U/L (0-40); Albumin Level 4.5 g/dL (3.5-5.0); Alkaline Phosphatase 65 U/L (39-117); Anion Gap 11 (12-20); Aspartate Amino Transferase 24 U/L (5-37); Blood Urea Nitrogen 22 mg/dL (9-16); Calcium 9.7 mg/dL (8.4-10.2); Carbon Dioxide 31 mmol/L (22-29); Chloride 105 mmol/L (96-108); Cholesterol 159 mg/dL (<200); Creatinine Clr Calc Pharmacy 103.1; Estimated Glomerular Filt Rate > 60; HDL Cholesterol 56 mg/dL (>40); Potassium 4.6 mmol/L (3.3-5.1); Sodium 142 mmol/L (135-145); Total Protein 7.5 g/dL (6.5-8.0); Triglycerides 43 mg/dL (<150)
[2025-02-06 09:38] VITALS: BP 117/70; PULSE 65; RESP 18; TEMP 36.4; O2SAT 99
--- NOTE | 2025-02-06 09:46 | P.PNPSI_ITS ---
Subjective Subjective Date of Service: 02/06/25 Reason For Visit: crisis Subjective Notes: Conditional Voluntary Interim History: Active on unit. keeping to self. irritable edge. Patient reports feeling good ; he reports sleeping well last night. Pt requesting to be discharged home. denies SI/HI/VH/AH. Patient reports he will follow up with his outpatient providers. Medication Compliance: Yes Side effects from medications: No Attending Groups: Yes Mental Status Exam Mental Status Exam Narrative: Pt is alert and oriented; behavior is cooperative and calm; dressed in casual attire; mood is described as good ; eye contact appropriate; Speech is normal rate, volume and not pressured; thought process is organized; Thought content is on discharge; denies SI/HI/VH/AH. Diagnostics Vital Signs (24Hr): Vital Signs - 24 hr 02/05/25 20:00 02/06/25 09:38 Temperature 97.7 F 97.5 F Pulse Rate 60 65 Respiratory Rate 16 18 Blood Pressure 141/72 H 117/70 Pulse Oximetry 99 99 Oxygen Delivery Method Room Air Room Air BMI result Body Mass Index 20.9 Labs 02/02/25 14:59 02/06/25 07:57 Labs: Laboratory Results - last 48 hr 02/06/25 07:57 Sodium 142 Potassium 4.6 D Chloride 105 Carbon Dioxide 31 H Anion Gap 11 L BUN 22 H Creatinine 0.68 Estim Creat Clear Calc 103.1 Estimated GFR > 60 Random Glucose 76 Estimat Average Glucose 108 Hemoglobin A1c % 5.4 Calcium 9.7 D Total Bilirubin 0.3 AST 24 ALT 23 Alkaline Phosphatase 65 Total Protein 7.5 Albumin 4.5 Triglycerides 43 Cholesterol 159 LDL Cholesterol, Calc 95 HDL Cholesterol 56 Medications Medications Current Medications Acetaminophen (Acetaminophen 325 Mg Tablet) 650 mg PO Q6H PRN PRN Reason: Headache/Pain, Scale 1-10 Al Hydroxide/Mg Hydroxide (Magnesium Hydrox/Alum Hydrox 30 Ml Oral.Susp) 30 ml PO Q6H PRN PRN Reason: Heartburn/Nausea Aripiprazole (Aripiprazole 30 Mg Tablet) 30 mg PO DAILY [facility]E Last Admin: 02/06/25 08:17 Dose: 30 mg Atorvastatin Calcium (Atorvastatin Calcium 20 Mg Tablet) 20 mg PO BEDTIME RENAE Last Admin: 02/05/25 20:00 Dose: 20 mg Hydroxyzine HCl (Hydroxyzine Hcl 25 Mg Tablet) 25 mg PO Q6H PRN PRN Reason: mild anxiety Lorazepam (Lorazepam 1 Mg Tablet) 1 mg PO DAILY PRN PRN Reason: Anxiety Magnesium Hydroxide (Milk Of Magnesia 30 Ml Oral.Susp) 30 ml PO DAILY PRN PRN Reason: Constipation Nicotine Polacrilex (Nicotine Polacrilex 2 Mg Gum) 4 mg BUCCAL Q2H PRN PRN Reason: Nicotine Cravings Olanzapine (Olanzapine 10 Mg Tablet) 10 mg PO TID [facility] Last Admin: 02/06/25 08:17 Dose: 10 mg Quetiapine Fumarate (Quetiapine Fumarate 50 Mg Tablet) 50 mg PO BID [facility] Last Admin: 02/06/25 08:16 Dose: 50 mg Quetiapine Fumarate (Quetiapine Fumarate 100 Mg Tablet) 100 mg PO BEDTIME [facility] Last Admin: 02/05/25 20:00 Dose: 100 mg Tamsulosin HCl (Tamsulosin Hcl 0.4 Mg Capsule) 0.4 mg PO DAILY [facility] Last Admin: 02/06/25 08:18 Dose: 0.4 mg Trazodone HCl (Trazodone Hcl 50 Mg Tablet) 50 mg PO BEDTIME MRX1 PRN PRN Reason: Insomnia Allergies Allergies Allergy/AdvReac Type Severity Reaction Status Date / Time No Known Allergies (NO KNOWN Allergy Unknown UNKNOWN Verified 02/02/25 13:44 ALLERGIES) Assessment & Plan Assessment & Plan (1) Schizoaffective disorder, bipolar type: Status: Acute Code(s): F25.0 - Schizoaffective disorder, bipolar type (2) Acute anxiety: Status: Acute Code(s): F41.9 - Anxiety disorder, unspecified Plan Patient is a 59-year-old male with history of schizoaffective disorder who self presented to ER due to increased anxiety around his [facility] and being frustrated with staff along with ongoing anxiety around his prostate issues. Plan: CV 15 minute safety checks Continue home medications obtain collateral encourage groups discharge planning 02/05: Active on unit. keeping to self. irritable edge. Patient reports feeling fine today; he reports not sleeping well last night d/t waking up every hour since the unit was loud . Patient reports he would like to return home soon. pt stated, I'm going to all the groups. What else do you guys want? . denies SI/HI/VH/AH. Plan to discharge Monday to [facility]; pt aware. 09/4: Patient reports feeling good ; he reports sleeping well last night. Pt requesting to be discharged home. denies SI/HI/VH/AH. Patient reports he will follow up with his outpatient providers. Patient educated on: diagnosis and medication risk/benefits Reason for continued inpatient stay Substantial Risk for: stable for discharge Time Spent With Patient Time: Total time managing care of this patient today _20___ minutes.
[2025-02-06 13:11] VITALS: BMI 21.4
[2025-02-06 19:47] VITALS: BP 129/67; PULSE 67; RESP 14; TEMP 36.6; O2SAT 98
[2025-02-07 08:00] VITALS: BP 107/61; PULSE 72; RESP 16; TEMP 36.4; O2SAT 99
[2025-02-07] MEDS: ARIPiprazole 30 MG TABLET PO (08:09)
--- NOTE | 2025-02-07 08:54 | PM.PSYDC ---
DS: Providers Provider Date of Service: 02/07/25 Date of admission: 02/04/25 13:30 Date of discharge: 02/07/25 Primary care physician: Dk Rodriguez MD Admitting clinician: India Hester Attending physician on admission: Ricardo Lamb Attending physician on discharge: Ricardo Lamb Discharging clinician: India Hester DS: Diagnosis Discharge Diagnosis (1) Schizoaffective disorder, bipolar type: Status: Acute (2) Acute anxiety: Status: Acute DS: Medications Discharge Medications Home Medications: Home Medications ?Medication ?Instructions ?Recorded ?Confirmed aripiprazole 30 mg tablet 30 mg PO DAILY 01/31/25 02/03/25 lorazepam 1 mg tablet 1 mg PO DAILY PRN Anxiety 01/31/25 02/03/25 quetiapine 100 mg tablet 100 mg PO BEDTIME 01/31/25 02/03/25 quetiapine 50 mg tablet 50 mg PO BID 01/31/25 02/03/25 olanzapine 10 mg tablet 10 mg PO TID 02/03/25 02/03/25 Previous Rx's ?Medication ?Instructions ?Recorded atorvastatin 20 mg tablet 20 mg PO QPM 90 days #90 tabs 01/10/25 tamsulosin 0.4 mg capsule 0.4 mg PO QAM 90 days #90 caps 01/10/25 Mental Status Exam Mental Status Exam Narrative: Pt is alert and oriented; behavior is cooperative and calm; dressed in casual attire; mood is described as good ; eye contact appropriate; Speech is normal rate, volume and not pressured; thought process is organized; Thought content is on discharge; denies SI/HI/VH/AH. Data Data Completed and Pending Completed studies during hospitalization [Text1]: 02/02/25 02/02/25 02/06/25 14:59 15:13 07:57 WBC 7.0 RBC 4.00 L Hgb 13.0 L Hct 37.4 L MCV 93.5 MCH 32.5 MCHC 34.8 RDW 13.9 Plt Count 162 MPV 9.6 Immature Gran % (Auto) 0.1 Neut % (Auto) 69.3 Lymph % (Auto) 20.9 [place] % (Auto) 7.1 Eos % (Auto) 1.7 Baso % (Auto) 0.9 Lymph # (Auto) 1.5 [place] # (Auto) 0.5 Eos # (Auto) 0.1 Baso # (Auto) 0.1 Abs Immat Gran (auto) 0.01 Absolute Neuts (auto) 4.9 Absolute Nucleated RBC 0.000 Nucleated RBC % (auto) 0.0 Sodium 142 142 Potassium 3.8 4.6 D Chloride 106 105 Carbon Dioxide 25 31 H Anion Gap 15 11 L BUN 10 22 H Creatinine 0.77 0.68 Estim Creat Clear Calc 92.7 103.1 Estimated GFR > 60 > 60 Random Glucose 177 H 76 Estimat Average Glucose 108 Hemoglobin A1c % 5.4 Calcium 9.0 9.7 D Total Bilirubin 0.5 0.3 AST 23 24 ALT 21 23 Alkaline Phosphatase 64 65 Total Protein 6.6 7.5 Albumin 4.1 4.5 Triglycerides 43 Cholesterol 159 LDL Cholesterol, Calc 95 HDL Cholesterol 56 Urine Color Yellow Urine Appearance Clear Urine pH 6.0 Ur Specific [place] <= 1.005 Urine Protein Negative Urine Glucose (UA) Negative Urine Ketones Negative Urine Blood Trace H Urine Nitrite Negative Ur Leukocyte Esterase Large (3+) H Urine RBC 0-2 Urine WBC 21-50 H Ur Squamous Epith Cells 0-2 Urine Bacteria None Seen Hyaline Casts 0-2 Salicylates < 5.0 L Urine Opiates Screen Not Detected Ur Buprenorphine Scrn Not Detected Ur Oxycodone Screen Not Detected Urine Methadone Screen Not Detected Urine Fentanyl Screen Not Detected Acetaminophen < 3 Ur Barbiturates Screen Not Detected Ur Phencyclidine Scrn Not Detected Ur Amphetamines Screen Not Detected U Benzodiazepines Scrn Not Detected Urine Cocaine Screen Not Detected U Marijuana (THC) Screen Not Detected Ethyl Alcohol < 10 COVID-19 (LEE) Negative COVID-19 Clin Com See Note DS: Summary Hospital Course Hospital Course: Patient is a 59-year-old male with history of schizoaffective disorder who self presented to ER due to increased anxiety around his care home and being frustrated with staff along with ongoing anxiety around his prostate issues. Per crisis report, patient has presented to ER 17 times in the past 31 days due to varying medical concerns and appears fixated on the possibility of maybe needing surgery to address his prostate and other medical issues in the future. Patient stated, I am not doing well. I am not right medically and I know it . Patient reports worsening sleep and appetite over the past month which has led to weight loss. Patient feels like his medical problems are not getting addressed by his providers or care home staff. Mood was reported as anxious due to his medical problems and frustrated with his care home stating he does not feel that they take care of him. Denies SI/HI/VH/AH. denies hx of SA/SIB. Last inpatient psychiatric hospitalization was 6 years ago. During admission assessment, patient presents alert and oriented x3. Calm and cooperative. Patient reports feeling anxious ; patient stated, I was told I have prostate and bladder issues. I had a lot of tests in the ER. I had to keep making trips to the ER because of my bladder. They told me that I don't need surgery, so I'm not worried about it. I see a urologist in [place] . When asked why he came to the ER 17 times; pt stated it was d/t concerns about his bladder. Patient denies SI/HI/VH/AH. He reports sleep and appetite are good . Patient stated, nothing is wrong with me mentally. I just got to take my meds and then I can go home . Denies history of SA/SIB. He reports being medication compliant. Patient reports that he would like to stay here for few days and returned to his care home. Plan: CV 15 minute safety checks Continue home medications obtain collateral encourage groups discharge planning Active on unit. keeping to self. irritable edge. Patient reports feeling fine today; he reports not sleeping well last night d/t waking up every hour since the unit was loud . Patient reports he would like to return home soon. pt stated, I'm going to all the groups. What else do you guys want? . denies SI/HI/VH/AH. Plan to discharge Monday to care home; pt aware. Patient reports feeling good ; he reports sleeping well last night. Pt requesting to be discharged home. denies SI/HI/VH/AH. Patient reports he will follow up with his outpatient providers. Status at Discharge Cognitive/behavioral status at discharge: Patient has insight and demonstrates good judgment in terms of wanting to pursue treatment. Patient has a safety plan that includes presenting to the closest ER or calling 911 if feeling unsafe. Functional status at discharge: independent ambulation Overall status at discharge: patient is back to baseline Time Spent with Patient Time attestation: Total time managing care of this patient today _20___ minutes. Time spent: Less than 30 minutes Discharge Plan Discharge Anticipated Discharge Date/Time: 02/07/25 08:54 Patient Disposition: Home, Self-Care Discharge Diagnosis: Schizoaffective d/o Referrals: Ginger Diaz (Therapy) [Other] - 02/17/25 3:30 pm Referral Note: *This appointment will take place over the phone. Dr. Marco Antonio Garcia (Psychiatry) [Other] - 03/14/25 9:00 am Referral Note: *This appointment will take place over the phone. Dk Rodriguez MD [Primary Care Provider, Internal Medicine] - 1 Week Referral Note: 02-06-25 Your Primary Care Provider has been notified of your discharge. They will be in contact with the date and time of your follow up appt. Discharge Medications: Continued quetiapine 100 mg tablet 100 mg PO BEDTIME lorazepam 1 mg tablet 1 mg PO DAILY PRN (Reason: Anxiety) aripiprazole 30 mg tablet 30 mg PO DAILY quetiapine 50 mg tablet 50 mg PO BID olanzapine 10 mg tablet 10 mg PO TID tamsulosin 0.4 mg capsule 0.4 mg PO QAM 90 Days Qty: 90 0RF atorvastatin 20 mg tablet 20 mg PO QPM 90 Days Qty: 90 3RF Discharge Orders: Discharge Order (Routine); Ordered 02/07/25 Ordered By: India Hester Diet: Regular diet Activity on Discharge: As tolerated Stand Alone Forms: Patient Portal Discharge page, Community Support Print Language: Yi Care Plan Goals: Maintain mood and safe behaviors Take medications as prescribed Practice coping skills Continue with outpatient providers and reach out to them as needed Health Concerns: Mood stability and behaviors Plan of Treatment: Follow up with your PCP, psychiatric provider and other outpatient providers regarding above concerns Take medications as prescribed Assessment: Patient has insight and demonstrates good judgment in terms of wanting to pursue treatment. Patient has a safety plan that includes presenting to the closest ER or calling 911 if feeling unsafe.
== END 2025-02-07 11:20 | disposition home or self-care (01) | DRG 885 ==
LOC: HO.ED 02-04 14:09 → HO.PADLT16 02-04 14:14
PROVIDERS: Physician Assistant Medical; Admitting Provider Registered Nurse; Emergency Provider Emergency Medicine; PCP Internal Medicine; Responsible Provider Registered Nurse; Visit Provider Psychiatry & Neurology Psychiatry
DX: F25.0 Schizoaffective disorder, bipolar type (principal); F17.210 Nicotine dependence, cigarettes, uncomplicated; F41.9 Anxiety disorder, unspecified; Z71.6 Tobacco abuse counseling; Z20.822 Contact with and (suspected) exposure to COVID-19; Z79.899 Other long term (current) drug therapy
CPT/HCPCS: 36415; 80053; 80061; 80143; 80179; 80307; 81001; 81003; 83036; 85025; 87635; 93005; 99285; S9485

== ENCOUNTER → 2025-02-02 14:49 | Outpatient (BNV) | payer MEDICARE, MEDICAID, SELFPAY | PROVIDERS: Emergency Provider Emergency Medicine; PCP Internal Medicine; Visit Provider Internal Medicine Cardiovascular Disease | DX: Z13.6 Encounter for screening for cardiovascular disorders (principal) | CPT/HCPCS: 93010 ==

== ENCOUNTER → 2025-02-04 13:30 | Outpatient (BNV) | payer MEDICARE, MEDICAID, SELFPAY | PROVIDERS: Admitting Provider Registered Nurse; Emergency Provider Emergency Medicine; PCP Internal Medicine; Responsible Provider Registered Nurse; Visit Provider Registered Nurse | DX: F25.0 Schizoaffective disorder, bipolar type (principal); F41.9 Anxiety disorder, unspecified | CPT/HCPCS: 90792; 99231; 99238 ==

== ENCOUNTER 2025-02-07 21:34 | Emergency (ER) | payer MEDICARE, MEDICAID, SELFPAY ==
--- OUTSIDE RECORDS SUMMARY | 2025-02-01 20:58 | XMS_ITS | Encounter Summary ---
Author Organization [facility] Address [address] [place] [address] Care Team Providers Care Information Security Consultant Name Role Phone Dk Rodriguez MD Primary Care Provider + [phone] Reason for Visit * Reason Comments Urinary Retention C/O urinary retentio n and bladder pain x 1 week Encounter Details Date Type Department Care Team (Late st Contact Info) Description 02/01/2025 8:58 PM EDT - 02/01/2025 10:49 PM EDT Emergency [facility] Emergency [address] [place] [phone] Discharge Disposition: Home or Self Care Social [...] Sign Reading Time Taken Comments Blood Pressure 116/60 02/01/2025 9:02 PM EDT Pulse 85 02/01/2025 9:02 PM EDT Temperature 36.9 C (98.4 F) 02/01/2025 9:02 PM EDT Respiratory Rate 18 02/01/2025 9:04 PM EDT Oxygen Saturation 97% 02/01/2025 9:02 PM EDT Inhaled Oxygen Concentration - - Weight 64.9 kg (143 lb) 02/01/2025 9:02 PM EDT Height 175.3 cm (5' 9 ) 02/01/2025 9:02 PM EDT Body Mass Index 21.12 02/01/2025 9:02 PM EDT documented in this encounter Functional [...] Progress Notes * Mariaelena Ackerman RN - 02/01/2025 10:38 PM EDT CNR X 3 * Mariaelena Ackerman RN - 02/01/2025 9:45 PM EDT PT CALLED FOR LABS AND BLADDER SCAN , PT IS NOT IN WR * Mariaelena Ackerman RN - 02/01/2025 9:05 PM EDT PT ARRIVES STEADY GAIT, COMPLAINS OF LEFT ABDOMEN PAIN AND BLADDER PAIN, PT FEELS HE IS NOT EMPTYING HIS BLADDER COMPLETELY, PT DENIES ANY OTHER SYMPTOMS OR COMPLAINTS, SATTES HE HAD A FULL WORK UP AT [facility] AND CT SCAN WITH NOTHING FOUND TO BE WRONG, PT USES TOBACCO [facility] CTR RECORDS REQUESTED documented in this encounter Plan of Treatment Not on file documented as of this encounter Visit Diagnoses Not on filedocumented in this encounter Care Teams Information Security Consultant Relationship Specialty Start Date End Date Dk Rodriguez MD [address] [place] [address] Dr [address] [place] PCP - General Internal Medicine 07/16/24 documented as of this encounter
[2025-02-07 21:37] VITALS: BP 111/69; PULSE 94; RESP 20; TEMP 36.6; O2SAT 97; BMI 21.2
--- NOTE | 2025-02-07 21:39 | ED.PSYCH ---
HPI - Psych General Chief Complaint: General Medical Stated Complaint: CRISIS Time Seen by Provider: 02/07/25 21:37 Source: patient and old records reviewed Mode of arrival: ambulatory Limitations: no limitations History of Present Illness ED Provider: NATALIE MCKAY Narrative: 59 yo male with PMH of UTI, GERD, straight cath, anxiety, schizoaffective d/o states he cannot stay in his shelter they treat him terrible he is walking around to get away. He wants to go to respite. He has no access to money or food stamps. He is being calm and states he is only in his room right now. MD complaint: feels depressed Onset (ago): year(s) Duration: intermittent History of same: Yes Relieving factors: none Exacerbating factors: other Context: significant life stressor Associated psychiatric symptoms: depression Associated symptoms: denies other symptoms Treatments prior to arrival: none Related Data Home Medications ?Medication ?Instructions ?Recorded ?Confirmed aripiprazole 30 mg tablet 30 mg PO DAILY 01/31/25 02/07/25 lorazepam 1 mg tablet 1 mg PO DAILY PRN Anxiety 01/31/25 02/07/25 quetiapine 100 mg tablet 100 mg PO BEDTIME 01/31/25 02/07/25 quetiapine 50 mg tablet 50 mg PO BID 01/31/25 02/07/25 olanzapine 10 mg tablet 10 mg PO TID 02/03/25 02/07/25 Previous Rx's ?Medication ?Instructions ?Recorded atorvastatin 20 mg tablet 20 mg PO QPM 90 days #90 tabs 01/10/25 tamsulosin 0.4 mg capsule 0.4 mg PO QAM 90 days #90 caps 01/10/25 Allergies Allergy/AdvReac Type Severity Reaction Status Date / Time No Known Allergies (NO KNOWN Allergy Unknown UNKNOWN Verified 02/07/25 21:39 ALLERGIES) Review of Systems Review of Systems: Constitutional : No Fever, No Chills ENT/Mouth : No Ear Pain, No Nasal Congestion, No sore throat Eyes: No Eye Pain, No Swelling, No Redness Cardiovascular : No Chest Pain, No SOB Respiratory : No Cough, No Sputum, No Dyspnea Gastrointestinal : No Nausea, No Vomiting, No Diarrhea, No Hematochezia, No Melena Genitourinary : No Dysuria, No Urinary Frequency, No Hematuria Musculoskeletal : No Myalgias Skin : No Skin Lesions, No rash Neuro : No Weakness, No Numbness, No Paresthesias, No Dizziness, No Headache Psych : positive Anxiety, positive Depression, no SI/HI All other systems reviewed and are negative PMFSH Past Medical History Attestation statement: The following information was validated with the patient. Source: old records reviewed Medical History Smoker GERD without esophagitis Tubular adenoma of colon (~2018) Personal history of nicotine dependence Constipation Back pain Schizoaffective disorder, bipolar type Anxiety Benign prostatic hyperplasia with lower urinary tract symptoms Pure hypercholesterolemia Thought disorder Bipolar 1 disorder Mood disorder Surgical History History of colonoscopy (~04/2019) History of prostate surgery (~04/2019) History of open reduction and internal fixation (ORIF) procedure (~08/2018) Family History Family History Father Lung cancer BPH (benign prostatic hyperplasia) Mother Dementia Brother Myocardial infarction Other Mental health problem Substance abuse Social History Social History Household Members: Other Housing: Other Housing Other:: Alf Do you presently have visiting nurse or other home services: No Unable to assess alcohol history related to: Unknown Alcohol intake: never Patient Tobacco Use Status: Current everyday Tobacco user Tobacco use type: Cigarette Cigarette Packs Per Day: 0.5 Cigarettes Per Day: 10.0 Years Smoked: 10 Smoked in Last 30 Days: No e-Cigarette/Vaping Use: Currently Using Second Hand Smoke Exposure: No Use of substances other than those prescribed or required for medical reasons: No Advance Directives: No Advance Directives Information Provided: Yes Do you have a plan to hurt others: No Plan service: No Current occupational status: employed 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 Oriented X3. No acute distress. Eyes: Pupils equal, round and reactive to light. ENT: Pharynx normal. Neck: Normal inspection. Neck supple. CVS: Normal heart rate and rhythm. Pulses normal. Respiratory: No respiratory distress. Breath sounds normal. Abdomen: Soft and nontender. Skin: Skin warm and dry. Normal skin color. Normal skin turgor. Extremities: No lower extremity edema. No calf ttp Neuro: Oriented X 3. No motor deficit. No sensory deficit. CN2-12 intact Course Reevaluation(s) Reevaluation #1: Cleared to be discharged to respite Time: 13:42 Medications Administered Generic Name Dose Route Start Last Admin Trade Name Freq PRN Reason Stop Dose Admin Aripiprazole 30 mg 02/08/25 09:00 02/08/25 09:31 Aripiprazole 30 Mg Tablet PO 30 mg DAILY RENAE Administration Lorazepam 1 mg 02/07/25 22:29 02/08/25 02:57 Lorazepam 1 Mg Tablet PO 1 mg DAILY PRN Administration Anxiety Olanzapine 10 mg 02/07/25 22:30 02/08/25 09:32 Olanzapine 10 Mg Tablet PO 10 mg TID RENAE Administration Quetiapine Fumarate 50 mg 02/07/25 22:30 02/08/25 09:31 Quetiapine Fumarate 50 Mg Tablet PO 50 mg BID RENAE Administration Quetiapine Fumarate 100 mg 02/07/25 22:30 02/08/25 02:57 Quetiapine Fumarate 100 Mg Tablet PO 100 mg BEDTIME RENAE Administration Tamsulosin HCl 0.4 mg 02/08/25 09:00 02/08/25 09:32 Tamsulosin Hcl 0.4 Mg Capsule PO 0.4 mg DAILY RENAE Administration Medical Decision Making Medical Decision Making MDM Narrative: 59 yo male with PMH of UTI, GERD, straight cath, anxiety, schizoaffective d/o here with c/o wanting to go to respite. He has no other complaints states he needs to talk to CARE team Differential Diagnosis Differential Diagnoses: The differential diagnosis associated with the presentation includes adjustment disorder Admission/Observation Consideration of admission/observation: Escalation of care including admission/observation considered physician observation started at 954pm pending CARE team Consult Healthcare Provider Management of the patient was discussed with: Behavioral Health Provider Lab Data [facility] Lab Attestation statement: I reviewed the patient's lab results. 02/07/25 22:36 02/07/25 22:36 Labs: Lab Results 02/07/25 02/08/25 Range/Units 22:36 04:11 WBC 7.6 (4.8-10.8) X10*3/uL RBC 3.96 L (4.60-5.80) X10*6/uL Hgb 12.7 L (14.0-18.0) g/dl Hct 36.6 L (42.0-52.0) % MCV 92.4 (80.0-98.0) fL MCH 32.1 (27.0-33.0) pg MCHC 34.7 (31.0-36.0) g/dl RDW 13.8 (11.0-16.0) % Plt Count 161 (160-400) X10*3/uL MPV 9.8 (9.4-12.4) fL Immature Gran % (Auto) 0.4 (0.0-0.4) % Neut % (Auto) 54.8 (45-73) % Lymph % (Auto) 28.6 (20-40) % [place] % (Auto) 11.3 H (2-11) % Eos % (Auto) 3.8 (0-4) % Baso % (Auto) 1.1 (0-2) % Lymph # (Auto) 2.2 (1.2-4.9) X10*3/uL [place] # (Auto) 0.9 (0.1-1.2) X10*3/uL Eos # (Auto) 0.3 (0.0-0.4) X10*3/uL Baso # (Auto) 0.1 (0.0-0.2) X10*3/uL Abs Immat Gran (auto) 0.03 (0.00-0.03) X10*3/uL Absolute Neuts (auto) 4.1 (2.0-8.3) x10*3/uL Absolute Nucleated RBC 0.000 (0.0-0.012) X10*3/uL Nucleated RBC % (auto) 0.0 (0.0-0.2) /100WBC Sodium 138 (135-145) mmol/L Potassium 3.5 D (3.3-5.1) mmol/L Chloride 103 (96-108) mmol/L Carbon Dioxide 28 (22-29) mmol/L Anion Gap 11 L (12-20) BUN 15 (9-16) mg/dL Creatinine 0.69 (0.5-1.4) mg/dL Estim Creat Clear Calc 105.9 Estimated GFR > 60 Random Glucose 83 (60-115) mg/dL Calcium 8.9 D (8.4-10.2) mg/dL Magnesium 1.7 (1.6-2.6) mg/dL Total Bilirubin 0.3 (0.0-1.0) mg/dL Direct Bilirubin 0.1 (0.0-0.5) mg/dL AST 21 (5-37) U/L ALT 19 (0-40) U/L Alkaline Phosphatase 59 (39-117) U/L Total Protein 6.4 L (6.5-8.0) g/dL Albumin 4.0 (3.5-5.0) g/dL Urine Color Yellow Urine Appearance Clear Urine pH 6.0 (5.0-9.0) Ur Specific [place] <= 1.005 (1.005-1.025) Urine Protein Negative (Neg-Trace) mg/dL Urine Glucose (UA) Negative (Negative) mg/dL Urine Ketones Negative (Negative) mg/dL Urine Blood Negative (Negative) Urine Nitrite Negative (Negative) Ur Leukocyte Esterase Moderate (2+) H (Negative) Urine RBC 0-2 (0-2) /HPF Urine WBC 11-20 H (0-5) /HPF Ur Squamous Epith Cells 0-2 (0-2) /HPF Urine Bacteria None Seen (None Seen) Hyaline Casts 0-2 (0-2) /LPF Urine Opiates Screen Not Detected (Not Detect) Ur Buprenorphine Scrn Not Detected (Not Detect) ng/mL Ur Oxycodone Screen Not Detected (Not Detect) ng/mL Urine Methadone Screen Not Detected (Not Detect) ng/mL Urine Fentanyl Screen Not Detected (Not Detect) Ur Barbiturates Screen Not Detected (Not Detect) Ur Phencyclidine Scrn Not Detected (Not Detect) Ur Amphetamines Screen Not Detected (Not Detect) U Benzodiazepines Scrn Not Detected (Not Detect) Urine Cocaine Screen Not Detected (Not Detect) U Marijuana (THC) Screen Not Detected (Not Detect) External Record Review External record reviewed: Inpatient record, Office record and Prior outpatient labs Social Determinants Patient?s care significantly limited by Social Determinants of Health including: Problems related to primary support group Discharge Plan Discharge Clinical Impression: Schizoaffective disorder, bipolar type Patient Disposition: Home, Self-Care Instructions: Schizoaffective Disorder (ED) Additional Instructions: You were seen in our Emergency Department today for treatment of a behavioral health issue. It is important after your visit that you follow up with either your behavioral health provider or a primary care doctor within 7 days.? If you have trouble finding a therapist you can reach out to [place] [phone] The [employer] [facility] Crisis Lif[facility] can be reached 7 days a week 24 hours a day.? Call [phone] to speak with someone.? Return for any worsening symptoms or concerns such as thoughts of self harm or harm to others. Please call 911 if you feel your mental health is worsening.? Prescriptions: No Action quetiapine 100 mg tablet 100 mg PO BEDTIME lorazepam 1 mg tablet 1 mg PO DAILY PRN (Reason: Anxiety) aripiprazole 30 mg tablet 30 mg PO DAILY quetiapine 50 mg tablet 50 mg PO BID olanzapine 10 mg tablet 10 mg PO TID tamsulosin 0.4 mg capsule 0.4 mg PO QAM 90 Days Qty: 90 0RF atorvastatin 20 mg tablet 20 mg PO QPM 90 Days Qty: 90 3RF Print Language: Marshallese
--- OUTSIDE RECORDS SUMMARY | 2025-02-07 22:12 | XMS_ITS | Clinical Summary ---
Author Organization [facility] Address [address] [place] [address] Care Team Providers Care Inside Contractor Sales Name Role Phone Ref, Has No Pcp [...] Plan (01/03/2024 2:32 PM EDT): Presents from [facility] in the setting of urinary retention [...] Plan (01/03/2024 10:49 AM EDT): Presented from [facility] with hyponatremia (initially 123). Also had [...] Plan (01/02/2024 11:43 AM EDT): Presents from [facility] in the setting of urinary retention [...] Seroquel 25 mg twice daily Presents from [facility]'s forensic unit with documented history of schizophrenia. Continue home aripiprazole 20mg daily Continue home carbamazepine 500 mg twice daily Continue home Zyprexa 15 mg nightly Continue home Seroquel 25 mg twice daily Consider psychiatry consult if concern that antipsychotic medications are causing SIADH Patient presents from [facility], requires constant observation Assessment & Plan (01/02/2024 11:43 AM EDT): Home medications: aripiprazole 20 mg daily, carbamazepine 500 mg twice daily, Zyprexa 15 mg nightly, Seroquel 25 mg twice daily Presents from [facility]'s forensic unit with documented history of schizophrenia. Continue home aripiprazole 20mg daily Continue home carbamazepine 500 mg twice daily Continue home Zyprexa 15 mg nightly Continue home Seroquel 25 mg twice daily Consider psychiatry consult if concern that antipsychotic medications are causing SIADH Patient presents from [facility], requires constant observation BPH (benign prostatic hyperplasia) 12/30/2023 Assessment & Plan (01/03/2024 2:33 PM EDT): Paperwork from the [facility] indicates history of BPH with prior need for intermittent catheterization requiring urology evaluation in the past, records not available in our system). Per documentation from [facility] patient has seen urology at [facility] in [place]. He was started on Flomax outpatient. In [...] AM EDT): Paperwork from the [facility] indicates history of BPH with prior need for intermittent catheterization requiring urology evaluation in the past, records not available in our system). Per documentation from [facility] patient has seen urology at [facility] in [place]. He was started on Flomax outpatient. In [...] of 2 - PCV) 06/27/2016 06/27/2015, 09/30/2012 Alcohol/Substance Use Screening 06/05/2024 Depression Screening and Follow-Up 06/05/2024 Social Drivers of Health Tammy ual Screening 06/05/2024 COVID-19 Vaccine (5 - 2024-2 6 season) 2025 03/17/2023, 03/31/2021, 07/23/2020, Additional history exists Influenza Vaccine (#1) 2025 , 04/11/2018, 02/17/2017, Additional history exists DTaP,Tdap,and Td Vaccines (3 - Td or Tdap) 02/28/2029 02/28/2019, 03/22/2014, 03/22/2014, Additional history exists RSV Vaccine (60+ years old a nd patients) (1 - 1-dose 75+ series) 2040 Insurance [facility] MEDIC[facility] Advance Directives * Full Code (Latest Code Status on File) Date Activated Date Inactivated Comments 12/30/2023 7:22 PM 01/03/2024 8:48 PM * Presumed Full Code Date Activated Date Inactivated Comments 12/30/2023 7:00 PM 12/30/2023 7:22 PM Care Teams Inside Contractor Sales Relationship Specialty Start Date End Date Ref, Has No Pcp Or DO NOT EDIT THIS RECORD VIA PROVIDER ON THE FLY PCP - General Data Warehouse Developer 12/30/23
--- OUTSIDE RECORDS SUMMARY | 2025-02-07 22:12 | XMS_ITS | Clinical Summary ---
Author Organization [facility] Address [address] [place] [address] Phone Care Team Providers Care Telephone Operator Name Role Phone Dk Rodriguez MD Primary Care Provider [phone] Allergies No known active allergies Medications No known medications Encounters Date Type Department Care Team Description 02/01/2025 8:58 PM EDT - 02/01/2025 10:[address] [facility] [address] [place] [phone] Discharge Disposition: Home or Self Care 01/30/2025 8:57 PM EDT - 01/31/2025 12:[address] [facility] [address] [place] [phone] Discharge Disposition: Home or Self Care 01/28/2025 9:14 PM EDT - 01/28/2025 11:[address] [facility] [address] [place] [phone] Discharge Disposition: Home or Self Care 01/14/2025 8:53 PM EDT - 01/15/2025 12:26 AM EDT Emergency [facility] [address] [place] [phone] Discharge Disposition: Home or Self Care 01/12/2025 8:45 PM EDT - 01/12/2025 11:[address] [facility] [address] [place] [phone] Dilcia Carl MD Discharge Disposition: Left Against Medical Advice 12/04/2024 11:34 PM EDT - 12/05/2024 1:[address] [facility] [address] [place] [phone] Discharge Disposition: Home or Self Care 12/02/2024 10:00 PM EDT - 12/03/2024 12:[address] [facility] [address] [place] [phone] Discharge Disposition: Home or Self Care 11/27/2024 10:17 PM EDT - 11/28/2024 8:[address] [facility] [address] [place] [phone] Discharge Disposition: Home or Self Care 11/26/2024 9:40 PM EDT - 11/27/2024 2:[address] [facility] [address] [place] [phone] Discharge Disposition: Home or Self Care 11/24/2024 11:19 PM EDT - 11/25/2024 1:[address] [facility] [address] [place] [phone] Discharge Disposition: Home or Self Care 11/23/2024 11:27 PM EDT - 11/24/2024 1:[address] [facility] [address] [place] [phone] Urinary retention (Primary Dx) Discharge Disposition: Home or Self Care 11/22/2024 10:08 PM EDT - 11/23/2024 2:[address] [facility] [address] [place] [phone] Discharge Disposition: Home or Self Care 11/18/2024 3:47 AM EDT - 11/18/2024 5:[address] [facility] [address] [place] [phone] Discharge Disposition: Home or Self Care 11/09/2024 12:37 AM EDT - 11/09/2024 4:[address] [facility] [address] [place] [address] [place] [phone] Discharge Disposition: Home or Self Care from Last 3 Months Medical History Medical History Date Comments Bipolar 1 disorder ([facility] V24, [facility] V28) Mood disorder ([facility] V24) Hyperactivity of bladder Social [...] 05/08/2022 Social Influencers of Health Screening 05/08/2022 Depression Screening 06/05/2024 COVID-19 Vaccine ( - season) 2025 03/17/2023, 03/31/2021, 07/23/2020, Additional history [...] 12/05/2024 12:52 AM [facility] RBC 4.00(L) 4.50 - 5.50 M/mcL LAB HEMETOLOGY METHOD 12/05/2024 12:52 AM [facility] Hemoglobin 12.7(L) 13.5 - [...] 12/05/2024 12:52 AM [facility] Eosinophils Relative 3.3 % LAB HEMETOLOGY METHOD 12/05/2024 12:52 AM [facility] Basophils Relative 0.8 % LAB HEMETOLOGY METHOD 12/05/2024 12:52 AM [facility] Immature Granulocytes Relative 0.3 % LAB HEMETOLOGY METHOD 12/05/2024 12:52 AM [facility] Neutrophils Absolute 4.19 1.50 - 7.00 K/mcL LAB HEMETOLOGY METHOD 12/05/2024 12:52 AM [facility] Lymphocytes Absolute 2.04 1.00 - 5.00 K/mcL LAB HEMETOLOGY METHOD 12/05/2024 12:52 AM [facility] Monocytes Absolute 0.82 0.20 - 1.00 K/mcL LAB HEMETOLOGY METHOD 12/05/2024 12:52 AM [facility] Eosinophils Absolute 0.24 0.00 - 0.50 K/mcL LAB HEMETOLOGY METHOD 12/05/2024 12:52 AM [facility] Basophils Absolute 0.06 0.00 - 0.20 K/mcL LAB HEMETOLOGY METHOD 12/05/2024 12:[facility] Immature Granulocytes Absolute 0.02 0.00 - 0.03 K/mcL LAB HEMETOLOGY METHOD 12/05/2024 12:52 AM [facility] Blood Venous blood specimen / Unknown Venipuncture / Unknown 12/05/2024 12:00 AM EDT 12/05/2024 12:45 AM EDT us Dalila Alberto MD LAB BLOOD ORDERABLES Fin al Result [facility] [address] [place] [address], [place] [phone] * (ABNORMAL) Comprehensive metabolic panel (12/05/2024 12:00 [...] 12/05/2024 1:25 AM [facility] Alkaline Phosphatase 67 42 [...] MD LAB BLOOD ORDERABLES Fin al Result [facility] [address] [place] [address], [place] [phone] * (ABNORMAL) Urinalysis with reflex microscopic and culture (11/23/2024 11:28 PM EDT) Specific [place] Urine 1.007 1.003 - 1.030 LAB URINALYSIS [...] - AUTOMATED METHOD 11/24/2024 12:11 AM EDT [facility] Bacteria, Urine Negative Negative /HPF LAB URINALYSIS - AUTOMATED METHOD 11/24/2024 12:11 AM EDT [facility] Hyaline Casts, Urine 0.4 0 - 3 /LPF LAB URINALYSIS - AUTOMATED METHOD 11/24/2024 12:11 AM EDT [facility] Urine Urine specimen obtained by clean catch procedure / Unknown Non-blood Collection / Unknown 11/23/2024 11:28 PM EDT 11/24/2024 12:03 AM EDT us Ming Love MD LAB URINE ORDERABLES Final Res ult Performing Organization Address [facility]/ZIP Co de Phone Number [facility] [address] [place] [address], [place] [phone] * [place] urine culture tube (11/23/2024 11:28 PM EDT) Extra Tube Hold for add-ons. 11/25/2024 1:01 AM EDT [facility] Comment:Auto resulted. Urine Urine specimen obtained by clean catch procedure / Unknown Non-blood Collection / Unknown 11/23/2024 11:28 PM EDT 11/24/2024 12:03 AM EDT us Ming Love MD LAB URINE ORDERABLES Final Res ult Performing Organization Address City/[facility]/ZIP Co de Phone Number [facility] [address] [place] [address], [place] [phone] * Culture urine (11/23/2024 11:28 PM EDT) Culture, Urine <10,000 CFU/mL gram positive cocci, insignificant count, no further workup 11/25/2024 10:10 AM EDT [facility] Urine Urine specimen obtained by clean catch procedure / Unknown Non-blood Collection / Unknown 11/23/2024 11:28 PM EDT 11/24/2024 12:11 AM EDT us Ming Love MD LAB MICROBIOLOGY - GENERAL ORD ERABLES Final Result [facility] [address] [place] [address], from Last 3 Months Insurance [id number] [facility] [place] [place] [id number] MEDICARE MEDICAID - [place] Care Teams Telephone Operator Relationship Specialty Start Date End Date Dk Rodriguez MD [address] [place] [address] Jackie [address] Home ID PCP - General Internal Medicine 07/16/24
--- OUTSIDE RECORDS SUMMARY | 2025-02-07 22:12 | XMS_ITS | Encounter Summary ---
Author Organization [facility] Address [address] [place] [address] Care Team Providers Care Instrument Maintenance Supervisor Name Role Phone Ref, Has No Pcp Or Primary Care Provider Unavail able Encounter Details Date Type Department Care Team (Late st Contact Info) Description 01/04/2024 Community Orders [facility] EpicCare Link [address] [place] [address] Bethany Lozano, SKEIN MERCERIZING MACHINE OPERATOR [address] [place] [address] Social History Tobacco Use Types Packs/Day Years [...] on filedocumented in this encounter Care Teams Instrument Maintenance Supervisor Relationship Specialty Start Date End Date Ref, Has No Pcp Or DO NOT EDIT THIS RECORD VIA PROVIDER ON THE FLY PCP - General Job Foreman 12/30/23 documented as of this encounter
[2025-02-07 22:26] VITALS: BP 103/65; PULSE 69; RESP 16; TEMP 36.4; O2SAT 99
[2025-02-07 22:40] LABS: MANUAL DIFF FLAG NO
[2025-02-07 22:41] LABS: Hematocrit 36.6 % (42.0-52.0); Hemoglobin 12.7 g/dl (14.0-18.0); Imm Gran Abs Auto 0.03 X10*3/uL (0.00-0.03); Imm Gran Pct Auto 0.4 % (0.0-0.4); Lymphocytes Absolute Auto 2.2 X10*3/uL (1.2-4.9); Mean Corpuscular HGB Conc 34.7 g/dl (31.0-36.0); Mean Corpuscular Hemoglobin 32.1 pg (27.0-33.0); Mean Corpuscular Volume 92.4 fL (80.0-98.0); NRBC Abs Auto 0.000 X10*3/uL (0.0-0.012); NRBC Pct Auto 0.0 /100WBC (0.0-0.2); Platelet Count 161 X10*3/uL (160-400); Red Blood Count 3.96 X10*6/uL (4.60-5.80); White Blood Count 7.6 X10*3/uL (4.8-10.8)
[2025-02-07 22:54] LABS: Alanine Aminotransferase 19 U/L (0-40); Anion Gap 11 (12-20); Aspartate Amino Transferase 21 U/L (5-37); Blood Urea Nitrogen 15 mg/dL (9-16); Calcium 8.9 mg/dL (8.4-10.2); Carbon Dioxide 28 mmol/L (22-29); Chloride 103 mmol/L (96-108); Creatinine Clr Calc Pharmacy 105.9; Estimated Glomerular Filt Rate > 60; Magnesium 1.7 mg/dL (1.6-2.6); Potassium 3.5 mmol/L (3.3-5.1); Sodium 138 mmol/L (135-145); Total Protein 6.4 g/dL (6.5-8.0)
[2025-02-07 22:55] LABS: Albumin Level 4.0 g/dL (3.5-5.0); Alkaline Phosphatase 59 U/L (39-117)
--- NOTE | 2025-02-08 | PC.NURSE ---
straight cath performed. drained approx. 800 mL CYU.
--- NOTE | 2025-02-08 04:07 | MHC.EDTECH ---
Addendum entered by Dianna Sanabria 02/08/25 04:11: straight cath performed at this time by rn at this time. pt output 800ml. Original Note: bladder scan showed 745ml at 2200
[2025-02-08 04:24] LABS: Appearance Urine Clear; Glucose Urine UA Negative (Negative); PH 6.0 (5.0-9.0); Specific Gravity - Urine <= 1.005 (1.005-1.025); UMIC TRIGGER UACC YES
[2025-02-08 04:31] VITALS: BP 95/60; RESP 16; O2SAT 97
[2025-02-08 04:45] LABS: UACC Culture Trigger YES
[2025-02-08] MEDS: ARIPiprazole 30 MG TABLET PO (09:31)
[2025-02-08 10:02] LABS: Cannabinoid Screen Urine Not Detected (Not Detect)
--- NOTE | 2025-02-08 10:51 | PC.NURSE ---
Pt brought to the Pod. He is frustrated with his GH and angry this morning. He is given coffee and a sandwich. He currently denies SI/HI/AVH
--- NOTE | 2025-02-08 13:52 | MHC.CARE ---
t/w did submit ACCS request to [facility], though patient shortly after requested d/c. He can still seek this LOC/ service from the community and this is explained to the patient.
== END 2025-02-08 13:57 | disposition home or self-care (01) ==
PROVIDERS: Emergency Provider Emergency Medicine
DX: F25.0 Schizoaffective disorder, bipolar type (principal); F33.1 Major depressive disorder, recurrent, moderate; Z79.899 Other long term (current) drug therapy; F17.210 Nicotine dependence, cigarettes, uncomplicated; Z51.81 Encounter for therapeutic drug level monitoring
CPT/HCPCS: 36415; 51701; 80048; 80076; 80307; 81001; 83735; 85025; 87086; 87088; 87186; 99284; S9485

== ENCOUNTER 2025-02-09 10:04 | Emergency (ER) | payer MEDICARE, MEDICAID, SELFPAY ==
[2025-02-09 10:09] VITALS: BP 138/64; PULSE 67; RESP 16; TEMP 37.1; O2SAT 98; BMI 20.7
--- NOTE | 2025-02-09 10:17 | ED.GENADULT ---
HPI - General Adult General Chief complaint: Psychiatric Symptoms Stated complaint: sick Time Seen by Provider: 02/09/25 10:17 Source: patient Mode of arrival: ambulatory Limitations: no limitations History of Present Illness ED Provider: Fozia Jordan PA-C HPI narrative: Patient is a 59 year old assigned male at with a history of BPH, chronic suprapubic pain, GERD, HLD, and schizoaffective disorder presenting to the emergency department today expressing frustration with his prison. Patient states that he doesn't want to be at his prison anymore and the staff is insulting him. Patient denies any other complaints at this time. Patient denies any SI or HI. Related Data Home Medications ?Medication ?Instructions ?Recorded ?Confirmed aripiprazole 30 mg tablet 30 mg PO DAILY 01/31/25 02/07/25 lorazepam 1 mg tablet 1 mg PO DAILY PRN Anxiety 01/31/25 02/07/25 quetiapine 100 mg tablet 100 mg PO BEDTIME 01/31/25 02/07/25 quetiapine 50 mg tablet 50 mg PO BID 01/31/25 02/07/25 olanzapine 10 mg tablet 10 mg PO TID 02/03/25 02/07/25 Previous Rx's ?Medication ?Instructions ?Recorded atorvastatin 20 mg tablet 20 mg PO QPM 90 days #90 tabs 01/10/25 tamsulosin 0.4 mg capsule 0.4 mg PO QAM 90 days #90 caps 01/10/25 Allergies Allergy/AdvReac Type Severity Reaction Status Date / Time No Known Allergies (NO KNOWN Allergy Unknown UNKNOWN Verified 02/09/25 10:11 ALLERGIES) Review of Systems Constitutional: Constitutional: Reports as per HPI Eyes: Eyes: Reports as per HPI ENT: Reports as per HPI Cardiovascular: Cardiovascular: Reports as per HPI Respiratory: Respiratory: Reports as per HPI Gastrointestinal: Gastrointestinal: Reports as per HPI Genitourinary: Genitourinary: Reports as per HPI Musculoskeletal: Musculoskeletal: Reports as per HPI Integumentary/Breasts: Skin/Breast: Reports as per HPI Neurologic: Reports as per HPI Psychiatric: Psychiatric: Reports as per HPI Endocrine: Endocrine: Reports as per HPI Hematologic/Lymphatic: Hematologic/Lymphatic: Reports as per HPI Allergic/Immunologic: Allergic/Immunologic: Reports as per HPI PMF Past Medical History Attestation statement: The following information was validated with the patient. Source: old records reviewed and nursing notes reviewed Medical History Acute anxiety Smoker GERD without esophagitis Tubular adenoma of colon (~2018) Personal history of nicotine dependence Constipation Back pain Schizoaffective disorder, bipolar type Anxiety Benign prostatic hyperplasia with lower urinary tract symptoms Pure hypercholesterolemia Thought disorder Bipolar 1 disorder Mood disorder Surgical History History of colonoscopy (~04/2019) History of prostate surgery (~04/2019) History of open reduction and internal fixation (ORIF) procedure (~08/2018) Family History Family History Father Lung cancer BPH (benign prostatic hyperplasia) Mother Dementia Brother Myocardial infarction Other Mental health problem Substance abuse Social History Social History Household Members: Other Housing: Other Housing Other:: [facility] Do you presently have visiting nurse or other home services: No Unable to assess alcohol history related to: Unknown Alcohol intake: never Patient Tobacco Use Status: Current everyday Tobacco user Tobacco use type: Cigarette Cigarette Packs Per Day: 0.5 Cigarettes Per Day: 10.0 Years Smoked: 10 Smoked in Last 30 Days: No e-Cigarette/Vaping Use: Currently Using Second Hand Smoke Exposure: No Use of substances other than those prescribed or required for medical reasons: No Advance Directives: No Advance Directives Information Provided: Yes Do you have a plan to hurt others: No Plan service: No Current occupational status: employed Current occupation: [employer] Sexual orientation: Straight/Heterosexual Cognitive needs: No Hearing needs: No Vision needs: Yes Physical Exam ED Vital Signs: Vital Signs - 24 hr 02/09/25 10:09 02/09/25 10:44 Temperature 98.7 F 98.7 F Pulse Rate 67 67 Respiratory Rate 16 16 Blood Pressure 138/64 138/64 Pulse Oximetry 98 98 Oxygen Delivery Method Room Air Room Air BMI result Body Mass Index 20.7 Const General: cooperative, no acute distress, alert and awake Nutritional Appearance: well nourished Orientation/consciousness: patient oriented x3 HENMT Head: Yes normal to inspection and Yes atraumatic Ears: hearing grossly normal bilaterally and external ears normal General nose exam: Normal external nose present, no nasal discharge noted and no epistaxis Face and sinus: Yes normal facial exam, No abrasion and No laceration Mouth: Normal oral and palatal mucosa present, no drooling and no muffled voice Eyes General: appearance normal, both eyes and all related structures Periorbital: periorbital findings normal Eyelids: Yes eyelids normal Conjunctivae: conjunctivae normal Pupils: Equal, round and reactive pupils present EOM: EOMs intact bilaterally Neck Neck: Yes normal visual inspection and Yes full ROM Resp Effort & Inspection: normal respiratory effort and able to speak in complete sentences Neuro General: patient oriented x3, moves all extremities and CN's II-XI intact bilaterally Cranial nerves: Yes Equal, round and reactive pupils present Cognition (Neuro): normal cognition Extrem General: Yes normal to inspection, Yes full ROM and Yes capillary refill normal Psych Appearance: grossly normal Mental Status: mental status grossly normal Affect: normal affect Attitude: cooperative Thought process: Normal thought process present Thought content: Normal thought content present Insight: Good insight present (Psych) Medical Decision Making Medical Decision Making MDM Narrative: Patient is a 59 year old assigned male at with a history of BPH, chronic suprapubic pain, GERD, HLD, and schizoaffective disorder presenting to the emergency department today expressing frustration with his prison. Patient's physical exam was unremarkable. The patient has been here several times for agitation regarding his prison and prison staff. I consulted with the CARE team who spoke with the patient and confirmed the patient is not in any acute crisis and recommends discharge back to his facility. I explained my physical exam findings to the patient. I answered all questions asked by the patient. I stressed the importance of the patient taking his medication as directed (either prescribed or as the over the counter packaging recommends). I stressed the importance of the patient following up with his primary care provider. I stressed the importance of the patient returning to the emergency department immediately if he were to develop any dizziness, shortness of breath, difficulty breathing, chest pain, blurry vision, loss of vision, nausea, vomiting, abdominal pain, fever, chills, back pain, or any other complaints. Patient verbalized agreement and understanding with this treatment plan and discharge. Patient was placed in observation at 1018 pending CARE consultation. Observation ended at 1059. Differential Diagnosis Differential Diagnoses: The differential diagnosis associated with the presentation includes Agitation Irritation Behavioral Mood disorder Admission/Observation Consideration of admission/observation: Escalation of care including admission/observation considered Patient would have been admitted to the hospital had his clinical presentation warranted hospital admission. Consult Healthcare Provider Management of the patient was discussed with: Behavioral Health Provider (spoke with the CARE team as noted in the MDM Rationale portion of this note.) Discharge Plan Discharge Clinical Impression: Agitation Patient Disposition: Home, Self-Care Instructions: Mood Disorders (ED) Additional Instructions: You were seen in our Emergency Department today for a concern regarding your mental / behavioral behavioral health. It is important after this visit today that you follow up with either your mental / behavioral health or primary care provider within 7 days (from today).? Return for any worsening symptoms or concerns such as thoughts of harming yourself or others. Please call 911 immediately if you feel your mental health is worsening.? [facility]: Available 24 hours a day, 7 days a week, 365 days a year Dial 988 with any telephone to speak to someone immediately [facility] (Mental / Behavioral health therapist: [address], [place] [phone] [facility] at [facility]: [address] [place] [address] Open from 10am - 12pm (walk ins welcome) [facility] Crisis Services: [address] [place] [address] Walk in hours from 10am - 12pm Behavioral health Network: [address] [place] [address] [place] [address] Monday through Monday 8am - 8pm Monday and Monday 9am - 5pm IF you are prescribed medications and/or you are taking over the counter medications - it is very important you continue to do so as prescribed / directed unless told otherwise. Follow up with your primary care provider. Return to the emergency department immediately if your symptoms worsen or if you develop any numbness, tingling, dizziness, shortness of breath, difficulty breathing, chest pain, blurry vision, loss of vision, nausea, vomiting, abdominal pain, fever, chills, back pain, or any other complaints. Prescriptions: No Action quetiapine 100 mg tablet 100 mg PO BEDTIME lorazepam 1 mg tablet 1 mg PO DAILY PRN (Reason: Anxiety) aripiprazole 30 mg tablet 30 mg PO DAILY quetiapine 50 mg tablet 50 mg PO BID olanzapine 10 mg tablet 10 mg PO TID tamsulosin 0.4 mg capsule 0.4 mg PO QAM 90 Days Qty: 90 0RF atorvastatin 20 mg tablet 20 mg PO QPM 90 Days Qty: 90 3RF Referrals: Dk Rodriguez MD [Primary Care Provider, Internal Medicine] Interventions: [place]-Suicide Risk Severity Scale Last Done: 02/09/25 10:30 ED Discharge Assessment Last Done: 02/09/25 10:44 Discharge Date/Time: 02/09/25 11:00 Print Language: Turkish
--- OUTSIDE RECORDS SUMMARY | 2025-02-09 10:37 | XMS_ITS | Encounter Summary ---
Author Organization [facility] Address [address] [place] [address] Care Team Providers Care Director Apparel Name Role Phone Ref, Has No Pcp Or Primary Care Provider Unavail able Encounter Details Date Type Department Care Team (Late st Contact Info) Description 01/04/2024 Community Orders [facility] EpicCare Link [address] [place] [address] Bethany Lozano, WATERSHED TENDER [address] [place] [address] Social History Tobacco Use Types Packs/Day Years [...] filedocumented in this encounter Care Teams Director Apparel Relationship Specialty Start Date End Date Ref, Has No Pcp Or DO NOT EDIT THIS RECORD VIA PROVIDER ON THE FLY PCP - General Cable Tester 12/30/23 documented as of this encounter
--- OUTSIDE RECORDS SUMMARY | 2025-02-09 10:37 | XMS_ITS | Clinical Summary ---
Author Organization [facility] Address [address] [place] [address] Phone Care Team Providers Care Vocational Adviser Name Role Phone Dk Rodriguez MD Primary Care Provider [phone]- [phone] Allergies No known active allergies Medications No known medications Encounters Date Type Department Care Team Description 02/01/2025 8:58 PM EDT - 02/01/2025 10:[address] [facility] [address] [place] [phone] Discharge Disposition: Home or Self Care 01/30/2025 8:57 PM EDT - 01/31/2025 12:[address] [facility] Emergency [address] [place] [phone] Discharge Disposition: Home or Self Care 01/28/2025 9:14 PM EDT - 01/28/2025 11:[address] [facility] Emergency [address] [place] [phone] Discharge Disposition: Home or Self Care 01/14/2025 8:53 PM EDT - 01/15/2025 12:26 AM EDT Emergency [facility] Emergency [address] [place] [phone] Discharge Disposition: Home or Self Care 01/12/2025 8:45 PM EDT - 01/12/2025 11:[address] [facility] Emergency [address] [place] [phone] Dilcia Carl MD Discharge Disposition: Left Against Medical Advice 12/04/2024 11:34 PM EDT - 12/05/2024 1:[address] [facility] Emergency [address] [place] [phone] Discharge Disposition: Home or Self Care 12/02/2024 10:00 PM EDT - 12/03/2024 12:[address] [facility] Emergency [address] [place] [phone] Discharge Disposition: Home or Self Care 11/27/2024 10:17 PM EDT - 11/28/2024 8:[address] [facility] Emergency [address] [place] [phone] Discharge Disposition: Home or Self Care 11/26/2024 9:40 PM EDT - 11/27/2024 2:[address] [facility] Emergency [address] [place] [phone] Discharge Disposition: Home or Self Care 11/24/2024 11:19 PM EDT - 11/25/2024 1:[address] [facility] Emergency [address] [place] [phone] Discharge Disposition: Home or Self Care 11/23/2024 11:27 PM EDT - 11/24/2024 1:[address] [facility] Emergency [address] [place] [phone] Urinary retention (Primary Dx) Discharge Disposition: Home or Self Care 11/22/2024 10:08 PM EDT - 11/23/2024 2:[address] [facility] [address] [place] [phone] Discharge Disposition: Home or Self Care 11/18/2024 3:47 AM EDT - 11/18/2024 5:[address] [facility] Emergency [address] [place] [phone] Discharge Disposition: Home or Self Care 11/09/2024 12:37 AM EDT - 11/09/2024 4:[address] [facility] Emergency [address] [place] [address] [place] [phone] Discharge Disposition: Home or Self Care from Last 3 Months Medical History Medical History Date Comments Bipolar 1 disorder ([facility] V24, [facility] V28) Mood disorder ([facility] V24) Hyperactivity of bladder Social [...] K/mcL LAB HEMETOLOGY METHOD 12/05/2024 12:52 AM [facility] RBC 4.00(L) 4.50 - 5.50 M/mcL LAB HEMETOLOGY METHOD 12/05/2024 12:52 AM [facility] Hemoglobin 12.7(L) 13.5 - 17.5 g/dL LAB HEMETOLOGY METHOD 12/05/2024 12:52 AM [facility] Hematocrit 37.3(L) 42.0 - 54.0 % LAB HEMETOLOGY METHOD 12/05/2024 12:52 AM [facility] MCV 93.7 79.0 - 98.0 FL LAB HEMETOLOGY METHOD 12/05/2024 12:52 AM [facility] MCH 31.9 27.0 - 32.0 pcg LAB HEMETOLOGY METHOD 12/05/2024 12:52 AM [facility] MCHC 34.0 32.0 - 37.0 g/dL LAB HEMETOLOGY METHOD 12/05/2024 12:52 AM [facility] RDW 13.2 11.0 - 15.0 % LAB HEMETOLOGY METHOD 12/05/2024 12:52 AM [facility] Platelets 207 130 - 400 K/mcL LAB HEMETOLOGY METHOD 12/05/2024 12:52 AM [facility] MPV 9.4 7.0 - 11.0 FL LAB HEMETOLOGY METHOD 12/05/2024 12:52 AM [facility] NRBC 0.0 <1.0 % LAB HEMETOLOGY METHOD 12/05/2024 12:52 AM [facility] NRBC Absolute 0.00 <0.10 K/mcL LAB HEMETOLOGY METHOD 12/05/2024 12:52 AM [facility] Neutrophils Relative 56.8 % LAB HEMETOLOGY METHOD 12/05/2024 12:52 AM [facility] Lymphocytes Relative 27.7 % LAB HEMETOLOGY METHOD 12/05/2024 12:52 AM [facility] Monocytes Relative 11.1 % LAB HEMETOLOGY METHOD 12/05/2024 12:52 AM [facility] Eosinophils Relative 3.3 % LAB HEMETOLOGY METHOD 12/05/2024 12:52 AM [facility] Basophils Relative 0.8 % LAB HEMETOLOGY METHOD 12/05/2024 12:52 AM [facility] Immature Granulocytes Relative 0.3 % LAB HEMETOLOGY METHOD 12/05/2024 12:52 AM [facility] Neutrophils Absolute 4.19 1.50 - 7.00 K/mcL LAB HEMETOLOGY METHOD 12/05/2024 12:52 AM [facility] Lymphocytes Absolute 2.04 1.00 - 5.00 K/mcL LAB HEMETOLOGY METHOD 12/05/2024 12:52 AM [facility] Monocytes Absolute 0.82 0.20 - 1.00 K/mcL LAB HEMETOLOGY METHOD 12/05/2024 12:52 AM [facility] Eosinophils Absolute 0.24 0.00 - 0.50 K/mcL LAB HEMETOLOGY METHOD 12/05/2024 12:52 AM [facility] Basophils Absolute 0.06 0.00 - 0.20 K/mcL LAB HEMETOLOGY METHOD 12/05/2024 12:52 [facility] Immature Granulocytes Absolute 0.02 0.00 - 0.03 K/mcL LAB HEMETOLOGY METHOD 12/05/2024 12:52 AM [facility] Blood Venous blood specimen / Unknown Venipuncture / Unknown 12/05/2024 12:00 AM EDT 12/05/2024 12:45 AM EDT us Dalila Alberto MD LAB BLOOD ORDERABLES Fin al Result [facility] [address] [place] [address], [place] [phone] * (ABNORMAL) Comprehensive metabolic panel (12/05/2024 12:00 AM EDT) Sodium 139 133 - 145 mmol/L LAB CHEMISTRY METHOD 12/05/2024 1:25 AM [facility] Potassium 3.6 3.5 - 5.5 mmol/L LAB CHEMISTRY METHOD 12/05/2024 1:25 AM [facility] Chloride 108 96 - 110 mmol/L LAB CHEMISTRY METHOD 12/05/2024 1:25 AM [facility] CO2 26 21 - 32 mmol/L LAB CHEMISTRY METHOD 12/05/2024 1:25 AM [facility] Anion Gap 5 3 - 11 LAB CHEMISTRY METHOD 12/05/2024 1:25 AM [facility] Glucose 80 70 - 100 mg/dL LAB CHEMISTRY METHOD 12/05/2024 1:25 AM [facility] BUN 8 5 - 25 mg/dL LAB CHEMISTRY METHOD 12/05/2024 1:25 AM [facility] Creatinine 0.69(L) 0.70 - 1.30 mg/dL LAB CHEMISTRY METHOD 12/05/2024 1:25 AM [facility] eGFR 107 >=60 mL/min/1. 73m2 LAB CHEMISTRY METHOD 12/05/2024 1:25 AM [facility] Comment:Calculation based on the Chronic Kidney Disease Epidemiology Collaboration (CKD-EPI) equation refit without adjustment for race. BUN/Creatinine Ratio 11.6 LAB CHEMISTRY METHOD 12/05/2024 1:25 AM [facility] Calcium 8.6 8.5 - 10.5 mg/dL LAB CHEMISTRY METHOD 12/05/2024 1:25 AM [facility] AST (SGOT) 13 10 - 42 unit/L LAB CHEMISTRY METHOD 12/05/2024 1:25 AM [facility] ALT (SGPT) 16 10 - 60 unit/L LAB CHEMISTRY METHOD 12/05/2024 1:25 AM [facility] Alkaline Phosphatase 67 42 - 121 unit/L LAB CHEMISTRY METHOD 12/05/2024 1:25 AM [facility] Total Protein 6.3 6.0 - 8.0 g/dL LAB CHEMISTRY METHOD 12/05/2024 1:25 AM [facility] Albumin 3.3 3.2 - 5.0 g/dL LAB CHEMISTRY METHOD 12/05/2024 1:25 AM [facility] Total Bilirubin 0.4 0.0 - 1.4 mg/dL LAB CHEMISTRY METHOD 12/05/2024 1:25 AM [facility] Blood Venous blood specimen / Unknown Venipuncture / Unknown 12/05/2024 12:00 AM EDT 12/05/2024 12:45 AM EDT us Dalila Alberto MD LAB BLOOD ORDERABLES Fin al Result [facility] [address] [place] [address], [place] [phone] * (ABNORMAL) Urinalysis with reflex microscopic and culture (11/23/2024 11:28 PM EDT) Specific Early Urine 1.007 1.003 - 1.030 LAB URINALYSIS - AUTOMATED METHOD 11/24/2024 12:11 AM [facility] pH, Urine 6.5 5.0 - 8.0 pH LAB URINALYSIS - AUTOMATED METHOD 11/24/2024 12:11 AM [facility] Leukocytes, Urine Moderate(A) Negative LAB URINALYSIS - AUTOMATED METHOD 11/24/2024 12:11 AM [facility] Nitrite, Urine Negative Negative LAB URINALYSIS - AUTOMATED METHOD 11/24/2024 12:11 AM [facility] Protein, Urine Negative <=Trace mg/dL LAB URINALYSIS - AUTOMATED METHOD 11/24/2024 12:11 AM [facility] Glucose, Urine Negative Negative mg/dL LAB URINALYSIS - AUTOMATED METHOD 11/24/2024 12:11 AM [facility] Ketones, Urine Negative Negative mg/dL LAB URINALYSIS - AUTOMATED METHOD 11/24/2024 12:11 AM [facility] Urobilinogen , Urine 0.2 0.2 - 1.0 mg/dL LAB URINALYSIS - AUTOMATED METHOD 11/24/2024 12:11 AM [facility] Bilirubin, Urine Negative Negative LAB URINALYSIS - AUTOMATED METHOD 11/24/2024 12:11 AM [facility] Blood, Urine Negative Negative LAB URINALYSIS - AUTOMATED METHOD 11/24/2024 12:11 AM [facility] RBC, Urine 1.3 0 - 4 /HPF LAB URINALYSIS - AUTOMATED METHOD 11/24/2024 12:11 AM [facility] WBC, Urine 8.1(H) 0 - 4 /HPF LAB URINALYSIS - AUTOMATED METHOD 11/24/2024 12:11 AM [facility] Squamous Epithelial, Urine 14 0 - 60 /LPF LAB URINALYSIS - AUTOMATED METHOD 11/24/2024 12:11 AM EDT [facility] Bacteria, Urine Negative Negative [...] ORDERABLES Final Res ult Performing Organization Address [facility]/ZIP Co de Phone Number [facility] [address] [place] [address], [place] [phone] * [facility] urine culture tube (11/23/2024 11:28 PM EDT) Extra Tube Hold for add-ons. 11/25/2024 1:01 AM EDT [facility] Comment:Auto resulted. Urine Urine specimen obtained by clean catch procedure / Unknown Non-blood Collection / Unknown 11/23/2024 11:28 PM EDT 11/24/2024 12:03 AM EDT us Ming Love MD LAB URINE ORDERABLES Final Res ult Performing Organization Address City/[facility]/ZIP Co de Phone Number [facility] [address] [place] [address], [place] [phone] * Culture urine (11/23/2024 11:28 PM EDT) Culture, Urine <10,000 CFU/mL gram positive cocci, insignificant count, no further workup 11/25/2024 10:10 AM EDT [facility] Urine Urine specimen obtained by clean catch procedure / Unknown Non-blood Collection / Unknown 11/23/2024 11:28 PM EDT 11/24/2024 12:11 AM EDT us Ming Love MD LAB MICROBIOLOGY - GENERAL ORD ERABLES Final Result [facility] ([facility]) [facility] [address] [place] [address], from Last 3 Months Insurance [id number] [place] [id number] MEDICARE MEDICAID - [place] Care Teams Vocational Adviser Relationship Specialty Start Date End Date Dk Rodriguez MD [address] [place] [address] [address] [place] PCP - General Internal Medicine 07/16/24
--- OUTSIDE RECORDS SUMMARY | 2025-02-09 10:37 | XMS_ITS | Clinical Summary ---
Author Organization [facility] Address [address] [place] [address] Care Team Providers Care Linoleum Tile Layer Name Role Phone Ref, Has No Pcp [...] Plan (01/03/2024 10:49 AM EDT): Presented from [facility] with hyponatremia (initially 123). Also had [...] Seroquel 25 mg twice daily Presents from [facility]'s forensic unit with documented history of schizophrenia. Continue home aripiprazole 20mg daily Continue home carbamazepine 500 mg twice daily Continue home Zyprexa 15 mg nightly Continue home Seroquel 25 mg twice daily Consider psychiatry consult if concern that antipsychotic medications are causing SIADH Patient presents from [facility], requires constant observation Assessment & Plan (01/02/2024 11:43 AM EDT): Home medications: aripiprazole 20 mg daily, carbamazepine 500 mg twice daily, Zyprexa 15 mg nightly, Seroquel 25 mg twice daily Presents from [facility]'s forensic unit with documented history of schizophrenia. Continue home aripiprazole 20mg daily Continue home carbamazepine 500 mg twice daily Continue home Zyprexa 15 mg nightly Continue home Seroquel 25 mg twice daily Consider psychiatry consult if concern that antipsychotic medications are causing SIADH Patient presents from [facility], requires constant observation BPH (benign prostatic hyperplasia) 12/30/2023 Assessment & Plan (01/03/2024 2:33 PM EDT): Paperwork from the [facility] center indicates history of BPH with prior need for intermittent catheterization requiring urology evaluation in the past, records not available in our system). Per documentation from [facility] patient has seen urology at [facility] in [place]. He was started on Flomax outpatient. In [...] (01/02/2024 11:43 AM EDT): Paperwork from the [facility] indicates history of BPH with prior need for intermittent catheterization requiring urology evaluation in the past, records not available in our system). Per documentation from [facility] patient has seen urology at [facility] in [place]. He was started on Flomax outpatient. In [...] (1 - 1-dose 75+ series) 2040 Insurance [facility] MEDICARE [facility] Advance Directives * Full Code (Latest Code Status on File) Date Activated Date Inactivated Comments 12/30/2023 7:22 PM 01/03/2024 8:48 PM * Presumed Full Code Date Activated Date Inactivated Comments 12/30/2023 7:00 PM 12/30/2023 7:22 PM Care Teams Linoleum Tile Layer Relationship Specialty Start Date End Date Ref, Has No Pcp Or DO NOT EDIT THIS RECORD VIA PROVIDER ON THE FLY PCP - General Wheel Shop Supervisor 12/30/23
[2025-02-09 10:44] VITALS: BP 138/64; PULSE 67; RESP 16; TEMP 37.1; O2SAT 98
--- NOTE | 2025-02-09 11:32 | MHC.CARE ---
Patient was seen for consult after presenting in the [facility] again today, patient was recently discharged from inpatient unit M3 on 02/07/25. Patient historically presents to [facility] fixated on medicals issues and reporting he dislikes his current alf placement. Patient often presents as anxious with obsessive thoughts of needing medical treatment and reports his group does not give him his money or his food stamps. Patient denies any suicidal or homicidal ideation plan or intent; he also denies any audio or visual hallucinations and does not appear to be responding to any internal stimuli currently. Patient does not present in an acute mental health crisis currently and will be discharge back to alf to follow up with upcoming outpatient provider appointments in the community. Clinician discussed day structure with patient today to provide daily structure and to obtain more appropriate coping skills when anxiety increases. Clinician also provided education on when it?s appropriate to utilize emergency room services vs [facility] in the community for support. [facility] staff was contacted (Kamini) and she no concerns about patient?s safety or him returning back to alf. ?ED provider Fozia Jordan [employer] also in agreement with discharge.
== END 2025-02-09 11:00 | disposition home or self-care (01) ==
PROVIDERS: Emergency Provider Emergency Medicine; PCP Internal Medicine
DX: R45.1 Restlessness and agitation (principal); F25.0 Schizoaffective disorder, bipolar type
CPT/HCPCS: 99284

== ENCOUNTER 2025-02-12 20:59 | Emergency (ER) | payer MEDICARE, MEDICAID, SELFPAY ==
[2025-02-12 21:06] VITALS: BP 106/64; PULSE 96; RESP 18; TEMP 36.8; O2SAT 96; BMI 21.5
--- OUTSIDE RECORDS SUMMARY | 2025-02-12 21:18 | XMS_ITS | Clinical Summary ---
Author Organization [facility] Address [address] [place] [address] Care Team Providers Care Nursery Nurse Name Role Phone Ref, Has No Pcp [...] Plan (01/03/2024 2:32 PM EDT): Presents from [facility] in the setting of urinary retention [...] Plan (01/03/2024 10:49 AM EDT): Presented from [facility] with hyponatremia (initially 123). Also had [...] Plan (01/02/2024 11:43 AM EDT): Presents from [facility] in the setting of urinary retention [...] Seroquel 25 mg twice daily Presents from [facility]'s forensic unit with documented history of schizophrenia. 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 Per documentation from [facility] patient has seen urology at [facility] in [place]. He was started on Flomax outpatient. In [...] (01/02/2024 11:43 AM EDT): Paperwork from the [facility] indicates history of BPH with prior need for intermittent catheterization requiring urology evaluation in the past, records not available in our system). Per documentation from [facility] patient has seen urology at [facility] in [place]. He was started on Flomax outpatient. In [...] (1 - 1-dose 75+ series) 2040 Insurance [facility] MEDICARE [facility] Advance Directives * Full Code (Latest Code Status on File) Date Activated Date Inactivated Comments 12/30/2023 7:22 PM 01/03/2024 8:48 PM * Presumed Full Code Date Activated Date Inactivated Comments 12/30/2023 7:00 PM 12/30/2023 7:22 PM Care Teams Nursery Nurse Relationship Specialty Start Date End Date Ref, Has No Pcp Or DO NOT EDIT THIS RECORD VIA PROVIDER ON THE FLY PCP - General Data Management Consultant 12/30/23
--- OUTSIDE RECORDS SUMMARY | 2025-02-12 21:18 | XMS_ITS | Encounter Summary ---
Author Organization [facility] Address [address] [place] [address] Care Team Providers Care Music Grapher Name Role Phone Ref, Has No Pcp Or Primary Care Provider Unavail able Encounter Details Date Type Department Care Team (Late st Contact Info) Description 01/04/2024 Community Orders [facility] EpicCare Link [address] [place] [address] Bethany Lozano, WINDOW GLASS INSTALLER [address] [place] [address] Social History Tobacco Use Types Packs/Day Years [...] on filedocumented in this encounter Care Teams Music Grapher Relationship Specialty Start Date End Date Ref, Has No Pcp Or DO NOT EDIT THIS RECORD VIA PROVIDER ON THE FLY PCP - General Sap Technical Developer 12/30/23 documented as of this encounter
[2025-02-12 21:33] LABS: MANUAL DIFF FLAG NO
[2025-02-12 21:37] LABS: Hematocrit 37.2 % (42.0-52.0); Hemoglobin 12.5 g/dl (14.0-18.0); Imm Gran Abs Auto 0.04 X10*3/uL (0.00-0.03); Imm Gran Pct Auto 0.5 % (0.0-0.4); Lymphocytes Absolute Auto 1.8 X10*3/uL (1.2-4.9); Mean Corpuscular HGB Conc 33.6 g/dl (31.0-36.0); Mean Corpuscular Hemoglobin 31.8 pg (27.0-33.0); Mean Corpuscular Volume 94.7 fL (80.0-98.0); NRBC Abs Auto 0.000 X10*3/uL (0.0-0.012); NRBC Pct Auto 0.0 /100WBC (0.0-0.2); Platelet Count 168 X10*3/uL (160-400); Red Blood Count 3.93 X10*6/uL (4.60-5.80); White Blood Count 8.5 X10*3/uL (4.8-10.8)
[2025-02-12 21:48] LABS: Alanine Aminotransferase 25 U/L (0-40); Albumin Level 3.9 g/dL (3.5-5.0); Alkaline Phosphatase 64 U/L (39-117); Anion Gap 11 (12-20); Aspartate Amino Transferase 25 U/L (5-37); Blood Urea Nitrogen 11 mg/dL (9-16); Calcium 8.6 mg/dL (8.4-10.2); Carbon Dioxide 26 mmol/L (22-29); Chloride 109 mmol/L (96-108); Creatinine Clr Calc Pharmacy 106.2; Estimated Glomerular Filt Rate > 60; Lipase 33 U/L (8-78); Magnesium 1.8 mg/dL (1.6-2.6); Potassium 4.2 mmol/L (3.3-5.1); Sodium 142 mmol/L (135-145); Total Protein 6.4 g/dL (6.5-8.0)
--- NOTE | 2025-02-12 23:09 | ED.GENADULT ---
[facility] - General Adult General Chief complaint: Abdominal Pain Stated complaint: not feeling well Time Seen by Provider: 02/12/25 21:50 Source: patient Mode of arrival: ambulatory History of Present Illness ED Provider: Fabby [facility] narrative: 59-year-old male who states that he did not feel well, he was seen here recently on Monday, apparently described to the triage person that he had some abdominal discomfort with difficulties urinating which is a chronic problem for him. At this time he states he just wants to leave. Related Data Home Medications ?Medication ?Instructions ?Recorded ?Confirmed aripiprazole 30 mg tablet 30 mg PO DAILY 01/31/25 02/07/25 lorazepam 1 mg tablet 1 mg PO DAILY PRN Anxiety 01/31/25 02/07/25 quetiapine 100 mg tablet 100 mg PO BEDTIME 01/31/25 02/07/25 quetiapine 50 mg tablet 50 mg PO BID 01/31/25 02/07/25 olanzapine 10 mg tablet 10 mg PO TID 02/03/25 02/07/25 Previous Rx's ?Medication ?Instructions ?Recorded atorvastatin 20 mg tablet 20 mg PO QPM 90 days #90 tabs 01/10/25 tamsulosin 0.4 mg capsule 0.4 mg PO QAM 90 days #90 caps 01/10/25 nitrofurantoin 100 mg PO Q12H 7 days #14 caps 02/12/25 monohydrate/macrocrystals 100 mg capsule (Macrobid) Allergies Allergy/AdvReac Type Severity Reaction Status Date / Time No Known Allergies (NO KNOWN Allergy Unknown UNKNOWN Verified 02/12/25 21:08 ALLERGIES) Review of Systems Review of Systems: Pertinent positives and negatives as stated in [facility] Past Medical History Attestation statement: The following information was validated with the patient. Source: nursing notes reviewed Medical History Acute anxiety Smoker GERD without esophagitis Tubular adenoma of colon (~2018) Personal history of nicotine dependence Constipation Back pain Schizoaffective disorder, bipolar type Anxiety Benign prostatic hyperplasia with lower urinary tract symptoms Pure hypercholesterolemia Thought disorder Bipolar 1 disorder Mood disorder Surgical History History of colonoscopy (~04/2019) History of prostate surgery (~04/2019) History of open reduction and internal fixation (ORIF) procedure (~08/2018) Family History Family History Father Lung cancer BPH (benign prostatic hyperplasia) Mother Dementia Brother Myocardial infarction Other Mental health problem Substance abuse Social History Social History Household Members: Other Housing: Other Housing Other:: Long-Term Do you presently have visiting nurse or other home services: No Unable to assess alcohol history related to: Unknown Alcohol intake: never Patient Tobacco Use Status: Current everyday Tobacco user Tobacco use type: Cigarette Cigarette Packs Per Day: 0.5 Cigarettes Per Day: 10.0 Years Smoked: 10 e-Cigarette/Vaping Use: Currently Using Second Hand Smoke Exposure: No Advance Directives: No Advance Directives Information Provided: Yes Do you have a plan to hurt others: No Plan service: No Current occupational status: employed Current occupation: [address] Sexual orientation: Straight/Heterosexual Cognitive needs: No Hearing needs: No Vision needs: Yes Physical Exam ED Exam Exam: VITAL SIGNS: Reviewed. GENERAL: Well developed, well nourished, in no acute distress. HEAD: Normocephalic/atraumatic EYES: PERRLA, EOMI LUNGS: Normal breath sounds. No adventitious sounds or accessory muscle use. CARDIOVASCULAR: Regular rate and rhythm without noted murmurs ABDOMEN: Soft, non-tender, non-distended with bowel sounds. MUSCULOSKELETAL: No tenderness, deformities, or effusions noted on gross inspection. EXTREMITIES: No cyanosis, clubbing or edema. SKIN: Inspection of the skin reveals no rashes NEUROLOGIC: Alert and oriented x 4. Strength and sensation to light touch were grossly intact x 4. Vital Signs: Vital Signs - 24 hr 02/12/25 21:06 Temperature 98.3 F Pulse Rate 96 Respiratory Rate 18 Blood Pressure 106/64 Pulse Oximetry 96 Oxygen Delivery Method Room Air BMI result Body Mass Index 21.5 Medical Decision Making Medical Decision Making MDM Narrative: 59-year-old male with history and clinical presentation, DD DX: Will obtain some basic lab work, patient otherwise appears well nontoxic, he is endorsing that he wants to leave right now so will review results. After review of results my interpretation is that there is no evidence of acute infection, he has chronic anemia and there is no thrombocytopenia. There is no HOMA/electrolyte or liver enzyme derangements. Lipase is within normal limits. Patient does not meet inpatient level of care. Differential Diagnosis Differential Diagnoses: The differential diagnosis associated with the presentation includes See above Admission/Observation Consideration of admission/observation: Escalation of care including admission/observation considered See above Lab Data MDM Lab Attestation statement: I reviewed the patient's lab results. See above 02/12/25 21:29 02/12/25 21:29 Labs: Lab Results 02/12/25 Range/Units 21:29 WBC 8.5 (4.8-10.8) X10*3/uL RBC 3.93 L (4.60-5.80) X10*6/uL Hgb 12.5 L (14.0-18.0) g/dl Hct 37.2 L (42.0-52.0) % MCV 94.7 (80.0-98.0) fL MCH 31.8 (27.0-33.0) pg MCHC 33.6 (31.0-36.0) g/dl RDW 14.3 (11.0-16.0) % Plt Count 168 (160-400) X10*3/uL MPV 10.1 (9.4-12.4) fL Immature Gran % (Auto) 0.5 H (0.0-0.4) % Neut % (Auto) 63.6 (45-73) % Lymph % (Auto) 21.5 (20-40) % [place] % (Auto) 10.2 (2-11) % Eos % (Auto) 3.0 (0-4) % Baso % (Auto) 1.2 (0-2) % Lymph # (Auto) 1.8 (1.2-4.9) X10*3/uL [place] # (Auto) 0.9 (0.1-1.2) X10*3/uL Eos # (Auto) 0.3 (0.0-0.4) X10*3/uL Baso # (Auto) 0.1 (0.0-0.2) X10*3/uL Abs Immat Gran (auto) 0.04 H (0.00-0.03) X10*3/uL Absolute Neuts (auto) 5.4 (2.0-8.3) x10*3/uL Absolute Nucleated RBC 0.000 (0.0-0.012) X10*3/uL Nucleated RBC % (auto) 0.0 (0.0-0.2) /100WBC Sodium 142 (135-145) mmol/L Potassium 4.2 (3.3-5.1) mmol/L Chloride 109 H (96-108) mmol/L Carbon Dioxide 26 (22-29) mmol/L Anion Gap 11 L (12-20) BUN 11 (9-16) mg/dL Creatinine 0.70 (0.5-1.4) mg/dL Estim Creat Clear Calc 106.2 Estimated GFR > 60 Random Glucose 105 (60-115) mg/dL Calcium 8.6 (8.4-10.2) mg/dL Magnesium 1.8 (1.6-2.6) mg/dL Total Bilirubin 0.2 (0.0-1.0) mg/dL Direct Bilirubin < 0.2 (0.0-0.5) mg/dL AST 25 (5-37) U/L ALT 25 (0-40) U/L Alkaline Phosphatase 64 (39-117) U/L Total Protein 6.4 L (6.5-8.0) g/dL Albumin 3.9 (3.5-5.0) g/dL Lipase 33 (8-78) U/L External Record Review External record reviewed: Prior outpatient labs and Prior outpatient radiology Discharge Plan Discharge Clinical Impression: Abdominal discomfort Patient Disposition: Home, Self-Care Instructions: Abdominal Pain (ED) Additional Instructions: Resume all home medications as prescribed. Return to the ER for any worsening of symptoms. Prescriptions: No Action quetiapine 100 mg tablet 100 mg PO BEDTIME lorazepam 1 mg tablet 1 mg PO DAILY PRN (Reason: Anxiety) aripiprazole 30 mg tablet 30 mg PO DAILY quetiapine 50 mg tablet 50 mg PO BID olanzapine 10 mg tablet 10 mg PO TID nitrofurantoin monohyd/m-cryst [Macrobid] 100 mg capsule 100 mg PO Q12H 7 Days Qty: 14 0RF Rx Instructions: must administer with a meal/food tamsulosin 0.4 mg capsule 0.4 mg PO QAM 90 Days Qty: 90 0RF atorvastatin 20 mg tablet 20 mg PO QPM 90 Days Qty: 90 3RF Referrals: Dk Rodriguez MD [Primary Care Provider, Internal Medicine] Print Language: Occitan
[2025-02-12 23:22] VITALS: BP 106/64; PULSE 96; RESP 18; TEMP 36.8; O2SAT 96
== END 2025-02-12 23:23 | disposition home or self-care (01) ==
PROVIDERS: Emergency Provider Student in an Organized Health Care Education/Training Program; PCP Internal Medicine
DX: R39.198 Other difficulties with micturition (principal); R10.9 Unspecified abdominal pain; Z79.899 Other long term (current) drug therapy
CPT/HCPCS: 36415; 80053; 82248; 83690; 83735; 85025; 99283; 99284

== ENCOUNTER 2025-02-14 09:04 | Outpatient (AMB) | payer MEDICARE, MEDICAID, SELFPAY ==
--- OUTSIDE RECORDS SUMMARY | 2025-02-10 21:24 | XMS_ITS | Encounter Summary ---
Author Organization [facility] Address [address] [place] [address] Care Team Providers Care Elementary School Tutor Name Role Phone Dk Rodriguez MD Primary Care Provider + [phone] Reason for Visit * Reason Comments Abdominal Pain Pt states he's been constipated + bladder has been filling up w/ urine . Male Problem Encounter Details Date Type Department Care Team (Late st Contact Info) Description 02/10/2025 9:24 PM EDT - 02/10/2025 11:43 PM EDT Emergency [facility] Emergency [address] [place] [address] Discharge Disposition: Home or Self [...] with voiding, constipation- had small hard BM FLASK HANDLER. Abd firm, tenderness om palpation in lower quadrants per patient. Non toxic appearing documented in this encounter Plan of Treatment Not on file documented as of this encounter Visit Diagnoses Not on filedocumented in this encounter Care Teams Elementary School Tutor Relationship Specialty Start Date End Date Dk Rodriguez MD [address] [place] [address] [address] COY Lucero PCP - General Internal Medicine 07/16/24 documented as of this encounter
--- NOTE | 2025-02-14 09:06 | MHC.PC.OV ---
Vital Signs 02/14/25 09:08 Height 5 ft 9 in Weight 149 lb 2 oz BMI 22.0 BP 112/74 Blood Pressure Location Lt brachial Position Sitting Pulse 80 Pulse Source Pulse Oximeter Temp 97.3 F Temp Source Temporal Artery Scan Pulse Oximetry (%) 97 Oxygen Delivery Method Room Air Intake Visit Reasons: [facility] 02/07 Intake Note: Patient is here for hospital discharge follow up. Patient was discharged from [facility] on 02/07/25. Postal Clerk Required: No Timber Mill Worker: Present Accompanied by: STAFF Allergies No Known Allergies (NO KNOWN ALLERGIES) Allergy (Unknown, Verified 02/14/25 09:08) UNKNOWN Tobacco use date assessed: 02/14/25 Dental Screening Dental Screen Date: 01/10/25 HPI HPI Comments History of Present Illness Details 59 y/o Male patient who presents to the clinic for HDF. His Past Medical history significant for schizoaffective disorder and Benign prostatic hyperplasia with lower urinary tract symptoms. He was admitted at [facility] on 02/04 - 02/07 for an evaluation and treatment of increased anxiety around his detention and being frustrated with staff along with ongoing anxiety around his prostate issues. He is being managed by Urology at [facility]. [facility] Medical History Acute anxiety Smoker GERD without esophagitis Tubular adenoma of colon (~2018) Personal history of nicotine dependence Constipation Back pain Schizoaffective disorder, bipolar type Anxiety Benign prostatic hyperplasia with lower urinary tract symptoms Pure hypercholesterolemia Thought disorder Bipolar 1 disorder Mood disorder Surgical History History of colonoscopy (~04/2019) History of prostate surgery (~04/2019) History of open reduction and internal fixation (ORIF) procedure (~08/2018) Family History Father Lung cancer BPH (benign prostatic hyperplasia) Mother Dementia Brother Myocardial infarction Other Mental health problem Substance abuse Social History Household Members: Other Housing: Other Housing Other:: [facility] Do you presently have visiting nurse or other home services: No Unable to assess alcohol history related to: Unknown Alcohol intake: never Patient Tobacco Use Status: Current everyday Tobacco user Tobacco use type: Cigarette Cigarette Packs Per Day: 0.5 Cigarettes Per Day: 10.0 Years Smoked: 10 e-Cigarette/Vaping Use: Never Used Second Hand Smoke Exposure: Yes service: No Current occupational status: employed and disabled Current occupation: [employer] Sexual orientation: Straight/Heterosexual Cognitive needs: No Hearing needs: No Vision needs: Yes Questionnaire Thrive Questionnaire Date Thrive assessed: 09/10/24 I am a: Patient What is your living situation today?: I have a steady place to live Within the past 12 months, did the food you bought not last and you didn't have the money to get more?: Never true Within the past 12 months, did you worry whether your food would run out before you got money to buy more?: Never true Do you have trouble paying for medicines?: No Do you have trouble getting transportation to medical appointments?: No Do you have trouble paying your heating and electricity bill?: No Do you have trouble taking care of your child, family member or friend?: No Do you have trouble with day-to-day activities such as bathing, preparing meals, shopping, managing finances, etc.?: No Are you currently unemployed and looking for a job?: No Are you interested in more education?: No Please select the resources that you would like help with: None Currently or been in a relationship where the following occur: No concerns reported THRIVE Score: 0 AUDIT C Alcohol Use Questionnaire (AUDIT-C) 1. How often do you have a drink containing alcohol?: Never Total Score: 0 JALEESA-7 AMB Questionnaire JALEESA-7 Date JALEESA - 7 assessed: 09/10/24 Source: Developed by Drs. Adolfo Munoz, Michelle Dumont, Gregory Rai and colleagues, with an educational ebenezer from [employer]. Review of Systems Const All systems reviewed & are unremarkable except as noted in HPI and below Physical exam (Primary Care) Vital Signs: Last Vital Signs Temp 97.3 F 02/14/25 09:08 Pulse 80 02/14/25 09:08 BP 112/74 02/14/25 09:08 Pulse Ox 97 02/14/25 09:08 Oxygen Delivery Method Room Air 02/14/25 09:08 BMI result Body Mass Index 22.0 Tobacco/Smoking Status: Tobacco use Status Tobacco use date assessed 02/14/25 02/14/25 09:13 Patient Tobacco Use Status Current everyday Tobacco 02/14/25 09:07 Tobacco use type Cigarette 02/14/25 09:07 e-Cigarette/Vaping Use Never Used 02/14/25 09:13 Thrive Assessment: Date of Thrive Assessment Date Thrive assessed 09/10/24 02/14/25 09:07 Currently or been in a relationship where the following occur: No concerns reported Const General: cooperative, comfortable and no acute distress Orientation/consciousness: patient oriented x3 Resp Effort & Inspection: normal respiratory effort Cardio Heart sounds: S1 normal heart sound present and S2 normal heart sound present Neuro General: patient oriented x3, gait normal and moves all extremities Psych Speech and movement: Normal speech and movement present Affect: normal affect Thought process: Normal thought process present Coding Level of Care Code Est Pt Level 4 (59221) Diagnoses Schizoaffective disorder, bipolar type F25.0 Time Spent (min) 20 Assessment & Plan Assessment & Plan (1) Schizoaffective disorder, bipolar type: Code(s): F25.0 - Schizoaffective disorder, bipolar type Category: Medical Plan: Stable. Managed by Psych No medication changes. Continue f/u with Urology.
[2025-02-14 09:08] VITALS: BP 112/74; PULSE 80; TEMP 36.3; O2SAT 97; BMI 22.0
--- OUTSIDE RECORDS SUMMARY | 2025-02-14 09:55 | XMS_ITS | Clinical Summary ---
Author Organization [facility] Address [address] [place] [address] Care Team Providers Care Veterinarian Poultry Name Role Phone Ref, Has No Pcp [...] Plan (01/03/2024 2:32 PM EDT): Presents from [facility] in the setting of urinary retention and [...] Plan (01/03/2024 10:49 AM EDT): Presented from [facility] with hyponatremia (initially 123). Also had [...] Plan (01/02/2024 11:43 AM EDT): Presents from [facility] in the setting of urinary retention and [...] (01/03/2024 2:33 PM EDT): Paperwork from the [facility] indicates history of BPH with prior need for intermittent catheterization requiring urology evaluation in the past, records not available in our system). Per documentation from [facility] patient has seen urology at [facility] in [place]. He was started on Flomax outpatient. In [...] 11:43 AM EDT): Paperwork from the [facility] indicates history of BPH with prior need for intermittent catheterization requiring urology evaluation in the past, records not available in our system). Per documentation from [facility] patient has seen urology at [facility] in [place]. He was started on Flomax outpatient. In [...] (1 - 1-dose 75+ series) 2040 Insurance [facility] MEDICARE [facility] Advance Directives * Full Code (Latest Code Status on File) Date Activated Date Inactivated Comments 12/30/2023 7:22 PM 01/03/2024 8:48 PM * Presumed Full Code Date Activated Date Inactivated Comments 12/30/2023 7:00 PM 12/30/2023 7:22 PM Care Teams Veterinarian Poultry Relationship Specialty Start Date End Date Ref, Has No Pcp Or DO NOT EDIT THIS RECORD VIA PROVIDER ON THE FLY PCP - General Director Translational 12/30/23
--- OUTSIDE RECORDS SUMMARY | 2025-02-14 09:55 | XMS_ITS | Encounter Summary ---
Author Organization [facility] Address [address] [place] [address] Care Team Providers Care Manager Of Quality Name Role Phone Ref, Has No Pcp Or Primary Care Provider Unavail able Encounter Details Date Type Department Care Team (Late st Contact Info) Description 01/04/2024 Community Orders [facility] EpicCare Link [address] [place] [address] Bethany Lozano, HEAD OF SCIENCE [address] [place] [address] Social History Tobacco Use Types Packs/Day Years [...] on filedocumented in this encounter Care Teams Manager Of Quality Relationship Specialty Start Date End Date Ref, Has No Pcp Or DO NOT EDIT THIS RECORD VIA PROVIDER ON THE FLY PCP - General Reexaminer 12/30/23 documented as of this encounter
--- OUTSIDE RECORDS SUMMARY | 2025-02-14 09:55 | XMS_ITS | Clinical Summary ---
Author Organization [facility] Address [address] [place] [address] Phone Care Team Providers Care Employee Counselor Name Role Phone Dk Rodriguez MD Primary Care Provider Allergies No known active allergies Medications No known medications Encounters Date Type Department Care Team Description 02/10/2025 9:24 PM EDT - 02/10/2025 11:43 PM EDT [facility] [address] [place] [phone] Discharge Disposition: Home or Self Care 02/01/2025 8:58 PM EDT - 02/01/2025 10:49 PM EDT [facility] [address] [place] [phone] Discharge Disposition: Home or Self Care 01/30/2025 8:57 PM EDT - 01/31/2025 12:33 AM EDT [facility] [address] [place] [phone] Discharge Disposition: Home or Self Care 01/28/2025 9:14 PM EDT - 01/28/2025 11:28 PM EDT Emergency [facility] Emergency [address] [place] [phone] Discharge Disposition: Home or Self Care 01/14/2025 8:53 PM EDT - 01/15/2025 12:26 AM EDT [facility] [address] [place] [phone] Discharge Disposition: Home or Self Care 01/12/2025 8:45 PM EDT - 01/12/2025 11:57 PM EDT [facility] [address] [place] [phone] Dilcia Carl MD Discharge Disposition: Left Against Medical Advice 12/04/2024 11:34 PM EDT - 12/05/2024 1:06 AM EDT [facility] [address] [place] [phone] Discharge Disposition: Home or Self Care 12/02/2024 10:00 PM EDT - 12/03/2024 12:28 AM EDT [facility] [address] [place] [phone] Discharge Disposition: Home or Self Care 11/27/2024 10:17 PM EDT - 11/28/2024 8:54 AM EDT [facility] [address] [place] [phone] Discharge Disposition: Home or Self Care 11/26/2024 9:40 PM EDT - 11/27/2024 2:06 AM EDT [facility] [address] [place] [phone] Discharge Disposition: Home or Self Care 11/24/2024 11:19 PM EDT - 11/25/2024 1:14 AM EDT [facility] [address] [place] [phone] Discharge Disposition: Home or Self Care 11/23/2024 11:27 PM EDT - 11/24/2024 1:10 AM EDT [facility] [address] [place] [phone] Urinary retention (Primary Dx) Discharge Disposition: Home or Self Care 11/22/2024 10:08 PM EDT - 11/23/2024 2:55 AM EDT [facility] [address] [place] [phone] Discharge Disposition: Home or Self Care 11/18/2024 3:47 AM EDT - 11/18/2024 5:34 AM EDT [facility] [address] [place] [address] [place] [phone] Discharge Disposition: Home or Self Care from Last 3 Months Medical History Medical History Date Comments Bipolar 1 disorder ([facility] V24, [facility] V28) Mood disorder ([facility] V24) Hyperactivity of bladder Social [...] Mass Index 21.41 02/10/2025 9:31 PM EDT Plan of Treatment Health Maintenance [...] K/mcL LAB HEMETOLOGY METHOD 12/05/2024 12:[address] [facility] RBC 4.00(L) 4.50 - 5.50 M/mcL LAB HEMETOLOGY METHOD 12/05/2024 12:[address] [facility] Hemoglobin 12.7(L) 13.5 - 17.5 g/dL LAB HEMETOLOGY METHOD 12/05/2024 12:[address] [facility] Hematocrit 37.3(L) 42.0 - 54.0 % LAB HEMETOLOGY METHOD 12/05/2024 12:[address] [facility] MCV 93.7 79.0 - 98.0 FL LAB HEMETOLOGY METHOD 12/05/2024 12:[address] [facility] MCH 31.9 27.0 - 32.0 pcg LAB HEMETOLOGY METHOD 12/05/2024 12:[address] [facility] MCHC 34.0 32.0 - 37.0 g/dL LAB HEMETOLOGY METHOD 12/05/2024 12:[address] [facility] RDW 13.2 11.0 - 15.0 % LAB HEMETOLOGY METHOD 12/05/2024 12:[address] [facility] Platelets 207 130 - 400 K/mcL LAB HEMETOLOGY METHOD 12/05/2024 12:[address] [facility] MPV 9.4 7.0 - 11.0 FL LAB HEMETOLOGY METHOD 12/05/2024 12:[address] [facility] NRBC 0.0 <1.0 % LAB HEMETOLOGY METHOD 12/05/2024 12:[address] [facility] NRBC Absolute 0.00 <0.10 K/mcL LAB HEMETOLOGY METHOD 12/05/2024 12:[address] [facility] Neutrophils Relative 56.8 % LAB HEMETOLOGY METHOD 12/05/2024 12:[address] [facility] Lymphocytes Relative 27.7 % LAB HEMETOLOGY METHOD 12/05/2024 12:[address] [facility] Monocytes Relative 11.1 % LAB HEMETOLOGY METHOD 12/05/2024 12:[address] [facility] Eosinophils Relative 3.3 % LAB HEMETOLOGY METHOD 12/05/2024 12:[address] [facility] Basophils Relative 0.8 % LAB HEMETOLOGY METHOD 12/05/2024 12:[address] [facility] Immature Granulocytes Relative 0.3 % LAB HEMETOLOGY METHOD 12/05/2024 12:[address] [facility] Neutrophils Absolute 4.19 1.50 - 7.00 K/mcL LAB HEMETOLOGY METHOD 12/05/2024 12:[address] [facility] Lymphocytes Absolute 2.04 1.00 - 5.00 K/mcL LAB HEMETOLOGY METHOD 12/05/2024 12:[address] [facility] Monocytes Absolute 0.82 0.20 - 1.00 K/mcL LAB HEMETOLOGY METHOD 12/05/2024 12:[address] [facility] Eosinophils Absolute 0.24 0.00 - 0.50 K/mcL LAB HEMETOLOGY METHOD 12/05/2024 12:[address] [facility] Basophils Absolute 0.06 0.00 - 0.20 K/mcL LAB HEMETOLOGY METHOD [facility] Immature Granulocytes Absolute 0.02 0.00 - 0.03 K/mcL LAB HEMETOLOGY METHOD 12/05/2024 12:[address] [facility] Blood Venous blood specimen / Unknown Venipuncture / Unknown 12/05/2024 12:00 AM EDT 12/05/2024 12:45 AM EDT us Dalila Alberto MD LAB BLOOD ORDERABLES Fin al Result [facility] [address] [place] [address], [place] [phone] * (ABNORMAL) Comprehensive metabolic panel (12/05/2024 12:00 AM EDT) Sodium 139 133 - 145 mmol/L LAB CHEMISTRY METHOD 12/05/2024 1:[address] [facility] Potassium 3.6 3.5 - 5.5 mmol/L LAB CHEMISTRY METHOD 12/05/2024 1:[address] [facility] Chloride 108 96 - 110 mmol/L LAB CHEMISTRY METHOD 12/05/2024 1:[address] [facility] CO2 26 21 - 32 mmol/L LAB CHEMISTRY METHOD 12/05/2024 1:[address] [facility] Anion Gap 5 3 - 11 LAB CHEMISTRY METHOD 12/05/2024 1:[address] [facility] Glucose 80 70 - 100 mg/dL LAB CHEMISTRY METHOD 12/05/2024 1:[address] [facility] BUN 8 5 - 25 mg/dL LAB CHEMISTRY METHOD 12/05/2024 1:[address] [facility] Creatinine 0.69(L) 0.70 - 1.30 mg/dL LAB CHEMISTRY METHOD 12/05/2024 1:[address] [facility] eGFR 107 >=60 mL/min/1. 73m2 LAB CHEMISTRY METHOD 12/05/2024 1:[address] [facility] Comment:Calculation based on the Chronic Kidney Disease Epidemiology Collaboration (CKD-EPI) equation refit without adjustment for race. BUN/Creatinine Ratio 11.6 LAB CHEMISTRY METHOD 12/05/2024 1:[address] [facility] Calcium 8.6 8.5 - 10.5 mg/dL LAB CHEMISTRY METHOD 12/05/2024 1:[address] [facility] AST (SGOT) 13 10 - 42 unit/L LAB CHEMISTRY METHOD 12/05/2024 1:[address] [facility] ALT (SGPT) 16 10 - 60 unit/L LAB CHEMISTRY METHOD 12/05/2024 1:[address] [facility] Alkaline Phosphatase 67 42 - 121 unit/L LAB CHEMISTRY METHOD 12/05/2024 1:[address] [facility] Total Protein 6.3 6.0 - 8.0 g/dL LAB CHEMISTRY METHOD 12/05/2024 1:[address] [facility] Albumin 3.3 3.2 - 5.0 g/dL LAB CHEMISTRY METHOD 12/05/2024 1:[address] [facility] Total Bilirubin 0.4 0.0 - 1.4 mg/dL LAB CHEMISTRY METHOD 12/05/2024 1:[address] [facility] Blood Venous blood specimen / Unknown Venipuncture / Unknown 12/05/2024 12:00 AM EDT 12/05/2024 12:45 AM EDT us Dalila Alberto MD LAB BLOOD ORDERABLES Fin al Result [facility] [address] [place] [address], [place] [phone] * (ABNORMAL) Urinalysis with reflex microscopic and culture (11/23/2024 11:28 PM EDT) Specific [place] Urine 1.007 1.003 - 1.030 LAB URINALYSIS - AUTOMATED METHOD 11/24/2024 12:[address] [facility] pH, Urine 6.5 5.0 - 8.0 pH LAB URINALYSIS - AUTOMATED METHOD 11/24/2024 12:[address] [facility] Leukocytes, Urine Moderate(A) Negative LAB URINALYSIS - AUTOMATED METHOD 11/24/2024 12:[address] [facility] Nitrite, Urine Negative Negative LAB URINALYSIS - AUTOMATED METHOD 11/24/2024 12:[address] [facility] Protein, Urine Negative <=Trace mg/dL LAB URINALYSIS - AUTOMATED METHOD 11/24/2024 12:[address] [facility] Glucose, Urine Negative Negative mg/dL LAB URINALYSIS - AUTOMATED METHOD 11/24/2024 12:[address] [facility] Ketones, Urine Negative Negative mg/dL LAB URINALYSIS - AUTOMATED METHOD 11/24/2024 12:[address] [facility] Urobilinogen , Urine 0.2 0.2 - 1.0 mg/dL LAB URINALYSIS - AUTOMATED METHOD 11/24/2024 12:[address] [facility] Bilirubin, Urine Negative Negative LAB URINALYSIS - AUTOMATED METHOD 11/24/2024 12:[address] [facility] Blood, Urine Negative Negative LAB URINALYSIS - AUTOMATED METHOD 11/24/2024 12:[address] [facility] RBC, Urine 1.3 0 - 4 /HPF LAB URINALYSIS - AUTOMATED METHOD 11/24/2024 12:[address] [facility] WBC, Urine 8.1(H) 0 - 4 /HPF LAB URINALYSIS - AUTOMATED METHOD 11/24/2024 12:[address] [facility] Squamous Epithelial, Urine 14 0 - 60 /LPF LAB URINALYSIS - AUTOMATED METHOD 11/24/2024 12:11 AM EDT [facility] Bacteria, Urine Negative Negative /HPF LAB URINALYSIS - AUTOMATED METHOD 11/24/2024 12:11 AM EDT [facility] Hyaline Casts, Urine 0.4 0 - 3 /LPF LAB URINALYSIS - AUTOMATED METHOD 11/24/2024 12:11 AM EDT [facility] Urine Urine specimen obtained by clean catch procedure / Unknown Non-blood Collection / Unknown 11/23/2024 11:28 PM EDT 11/24/2024 12:03 AM EDT us Ming Love MD LAB URINE ORDERABLES Final Res ult Performing Organization Address [facility]/ZIP Co de Phone Number [facility] [address] [place] [address], [place] [phone] * [place] urine culture tube (11/23/2024 11:28 PM EDT) Extra Tube Hold for add-ons. 11/25/2024 1:01 AM EDT [facility] Comment:Auto resulted. Urine Urine specimen obtained by clean catch procedure / Unknown Non-blood Collection / Unknown 11/23/2024 11:28 PM EDT 11/24/2024 12:03 AM EDT us Ming Love MD LAB URINE ORDERABLES Final Res ult Performing Organization Address City/[facility]/ZIP Co de Phone Number [facility] [address] [place] [address], [place] [phone] * Culture urine (11/23/2024 11:28 PM EDT) Culture, Urine <10,000 CFU/mL gram positive cocci, insignificant count, no further workup 11/25/2024 10:10 AM EDT [facility] Urine Urine specimen obtained by clean catch procedure / Unknown Non-blood Collection / Unknown 11/23/2024 11:28 PM EDT 11/24/2024 12:11 AM EDT us Ming Love MD LAB MICROBIOLOGY - GENERAL ORD ERABLES Final Result [facility] [address] [place] [address], from Last 3 Months Insurance [id number] [facility] [place] [address] MEDICARE MEDICAID - [place] Care Teams Employee Counselor Relationship Specialty Start Date End Date Dk Rodriguez MD [address] [place] [address] [address] [place] PCP - General Internal Medicine 07/16/24
== END 2025-02-14 10:36 | disposition home or self-care (01) ==
LOC: HO.HMCH 09:04
PROVIDERS: PCP Internal Medicine; Visit Provider Nurse Practitioner Family
DX: F25.0 Schizoaffective disorder, bipolar type (principal)

== ENCOUNTER → 2025-02-14 09:04 | Outpatient (BNVA) | payer MEDICARE, MEDICAID, SELFPAY | PROVIDERS: PCP Internal Medicine; Visit Provider Nurse Practitioner Family | DX: F25.0 Schizoaffective disorder, bipolar type (principal); N40.1 Benign prostatic hyperplasia with lower urinary tract symptoms | CPT/HCPCS: 99212 ==

== ENCOUNTER 2025-02-15 07:15 | Emergency (ER) | payer MEDICARE, MEDICAID, SELFPAY ==
--- OUTSIDE RECORDS SUMMARY | 2025-02-10 21:24 | XMS_ITS | Encounter Summary ---
Author Organization [facility] Address [address] [place] [address] Care Team Providers Care Marketing Assistant Name Role Phone Dk Rodriguez MD Primary Care Provider + [phone] Reason for Visit * Reason Comments Abdominal Pain Pt states he's been constipated + bladder has been filling up w/ urine . Male Problem Encounter Details Date Type Department Care Team (Late st Contact Info) Description 02/10/2025 9:24 PM EDT - 02/10/2025 11:[address] [facility] Emergency [address] [place] [address] Discharge Disposition: Home or Self [...] Sign Reading Time Taken Comments Blood Pressure 113/75 02/10/2025 9:31 PM EDT Pulse 77 02/10/2025 9:31 PM EDT Temperature 36.5 C (97.7 F) 02/10/2025 9:31 PM EDT Respiratory Rate 19 02/10/2025 9:31 PM EDT Oxygen Saturation 96% 02/10/2025 9:31 PM EDT Inhaled Oxygen Concentration - - Weight 65.8 kg (145 lb) 02/10/2025 9:31 PM EDT Height 175.3 cm (5' 9 ) 02/10/2025 9:31 PM EDT Body Mass Index 21.41 02/10/2025 9:31 PM EDT documented in this encounter Functional [...] documented in this encounter Progress Notes * Charo Mcdonald RN - 02/10/2025 9:33 PM EDT Pt c/o bladder pain- not emptying bladder with voiding, constipation- had small hard BM POURER. Abd firm, tenderness om palpation in lower quadrants per patient. Non toxic appearing documented in this encounter Plan of Treatment Not on file documented as of this encounter Visit Diagnoses Not on filedocumented in this encounter Care Teams Marketing Assistant Relationship Specialty Start Date End Date kD Rodriguez MD [address] [place] [address] Dr [address] COY Lucero PCP - General Internal Medicine 07/16/24 documented as of this encounter
--- OUTSIDE RECORDS SUMMARY | 2025-02-14 20:31 | XMS_ITS | Encounter Summary ---
Author Organization [facility] Address [address] [place] [address] Care Team Providers Care Cloth Presser Name Role Phone Dk Rodriguez MD Primary Care Provider [phone] Reason for Visit * Reason Comments Abdominal Pain Male Problem Pt states he's havin g abdomen pain and difficulty urinating since this am. Encounter Details Date Type Department Care Team (Late st Contact Info) Description 02/14/2025 8:31 PM EDT - 02/14/2025 9:27 PM EDT Emergency [facility] Emergency [address] [place] [phone] Urinary retention (Primary Dx) Discharge Disposition: Home [...] sent through Care Everywhere. * Urinary Retention (Bengali) documented in this encounter Discharge Disposition Disposition Code Departure Means Destination Comment s Home or Self Care documented in this encounter Progress Notes * Skylar Gann RN - 02/14/2025 8:22 PM EDT Pt has come in with abd pain from alf, unable to urinate since this am. Pt [...] Medical History: Diagnosis Date Bipolar 1 disorder ([facility] V24, [facility] V28) Hyperactivity of bladder Mood disorder ([facility] V24) No past surgical history on file. [...] 02/14/2025 documented in this encounter Care Teams Cloth Presser Relationship Specialty Start Date End Date Dk Rodriguez MD [address] [place] [address] Dr Mejia [address] Lucero PCP - General Internal Medicine 07/16/24 documented as of this encounter
[2025-02-15 07:18] VITALS: BP 115/70; PULSE 96; RESP 18; TEMP 36.3; O2SAT 98; BMI 22.1
--- OUTSIDE RECORDS SUMMARY | 2025-02-15 07:39 | XMS_ITS | Clinical Summary ---
Author Organization [facility] Address [address] [place] [phone] Phone Care Team Providers Care Director Mobile Name Role Phone Dk Rodriguez MD Primary Care Provider [phone] Allergies No known active allergies Medications No known medications Encounters Date Type Department Care Team Description 02/14/2025 8:31 PM EDT - 02/14/2025 9:27 PM EDT [facility] Emergency [address] [place] [phone] Urinary retention (Primary Dx) Discharge Disposition: Home or Self Care 02/10/2025 9:24 PM EDT - 02/10/2025 11:43 PM EDT [facility] Emergency [address] [place] [phone] Discharge Disposition: Home or Self Care 02/01/2025 8:58 PM EDT - 02/01/2025 10:49 PM EDT [facility] [address] [place] [phone] Discharge Disposition: Home or Self Care 01/30/2025 8:57 PM EDT - 01/31/2025 12:33 AM EDT [facility] [address] [place] [phone] Discharge Disposition: Home or Self Care 01/28/2025 9:14 PM EDT - 01/28/2025 11:28 PM EDT [facility] Emergency [address] [place] [phone] Discharge Disposition: Home or Self Care 01/14/2025 8:53 PM EDT - 01/15/2025 12:26 AM EDT [facility] [address] [place] [phone] Discharge Disposition: Home or Self Care 01/12/2025 8:45 PM EDT - 01/12/2025 11:57 PM EDT [facility] [address] [place] [phone] Dilcia Carl MD Discharge Disposition: Left Against Medical Advice 12/04/2024 11:34 PM EDT - 12/05/2024 1:06 AM EDT [facility] [address] [place] [phone] Discharge Disposition: Home or Self Care 12/02/2024 10:00 PM EDT - 12/03/2024 12:28 AM EDT [facility] [address] [place] [phone] Discharge Disposition: Home or Self Care 11/27/2024 10:17 PM EDT - 11/28/2024 8:54 AM EDT [facility] [address] [place] [phone] Discharge Disposition: Home or Self Care 11/26/2024 9:40 PM EDT - 11/27/2024 2:06 AM EDT [facility] [address] [place] [phone] Discharge Disposition: Home or Self Care 11/24/2024 11:19 PM EDT - 11/25/2024 1:14 AM EDT [facility] [address] [place] [phone] Discharge Disposition: Home or Self Care 11/23/2024 11:27 PM EDT - 11/24/2024 1:10 AM EDT [facility] [address] [place] [phone] Urinary retention (Primary Dx) Discharge Disposition: Home or Self Care 11/22/2024 10:08 PM EDT - 11/23/2024 2:55 AM EDT [facility] Emergency [address] [place] [address] Discharge Disposition: Home or Self Care 11/18/2024 3:47 AM EDT - 11/18/2024 5:34 AM EDT Emergency [facility] Emergency [address] [place] [phone] Discharge Disposition: Home or Self Care from Last 3 Months Medical History Medical History Date Comments Bipolar 1 disorder ([facility] V24, [facility] V28) Mood disorder ([facility] V24) Hyperactivity of bladder Social History [...] Mass Index 22.15 02/14/2025 8:23 PM EDT Plan of Treatment Health Maintenance [...] CBC auto differential (12/05/2024 12:00 AM EDT) [facility] WBC 7.4 4.8 - 10.8 K/mcL LAB [...] HEMETOLOGY METHOD 12/05/2024 12:52 AM EDT [facility] Basophils Absolute 0.06 0.00 - 0.20 K/[facility] HEMETOLOGY METHOD 12/05/2024 12:52 AM EDT [facility] Immature Granulocytes Absolute 0.02 0.00 - 0.03 K/[facility] LAB HEMETOLOGY METHOD 12/05/2024 12:52 AM EDT [facility] Blood Venous blood specimen / Unknown Venipuncture / Unknown 12/05/2024 12:00 AM EDT 12/05/2024 12:45 AM EDT us Dalila Alberto MD LAB BLOOD ORDERABLES Fin al Result [facility] [address] [place] [address], * (ABNORMAL) Comprehensive metabolic panel (12/05/2024 12:00 [...] mg/dL LAB CHEMISTRY METHOD [facility]24 [facility] Creatinine 0.69(L) 0.70 - [...] Result [facility] [address] [place] [address], [place] [phone] * (ABNORMAL) Urinalysis with reflex microscopic and culture (11/23/2024 11:28 PM EDT) Specific [place] Urine 1.007 1.003 - 1.030 LAB URINALYSIS [...] AM EDT [facility] WBC, Urine 8.1(H) 0 - 4 /HPF LAB URINALYSIS - AUTOMATED METHOD 11/24/2024 12:11 AM EDT [facility] Squamous Epithelial, Urine 14 0 - 60 /LPF LAB URINALYSIS - AUTOMATED METHOD 11/24/2024 12:11 AM T [facility] Bacteria, Urine Negative Negative /HPF LAB URINALYSIS - AUTOMATED METHOD 11/24/2024 12:11 AM EDT [facility] Hyaline Casts, Urine 0.4 0 - 3 /LPF LAB URINALYSIS - AUTOMATED METHOD 11/24/2024 12:11 AM T [facility] Urine Urine specimen obtained by clean catch procedure / Unknown Non-blood Collection / Unknown 11/23/2024 11:28 PM EDT 11/24/2024 12:03 AM EDT us Ming Love MD LAB URINE ORDERABLES Final Res ult Performing Organization Address City/[facility]/ZIP Co de Phone Number [facility] [address] [place] [address], [place] [phone] * [place] urine culture tube (11/23/2024 11:28 PM EDT) Extra Tube Hold for add-ons. 11/25/2024 1:01 AM EDT [facility] Comment:Auto resulted. Urine Urine specimen obtained by clean catch procedure / Unknown Non-blood Collection / Unknown 11/23/2024 11:28 PM EDT 11/24/2024 12:03 AM EDT us Ming Love MD LAB URINE ORDERABLES Final Res ult Performing Organization Address City/[facility]/ZIP Co de Phone Number [facility] [address] [place] [address], [place] [phone] * Culture urine (11/23/2024 11:28 PM EDT) Culture, Urine <10,000 CFU/mL gram positive cocci, insignificant count, no further workup 11/25/2024 10:10 AM EDT [facility] Urine Urine specimen obtained by clean catch procedure / Unknown Non-blood Collection / Unknown 11/23/2024 11:28 PM EDT 11/24/2024 12:11 AM EDT us Ming Love MD LAB MICROBIOLOGY - GENERAL ORD ERABLES Final Result [facility] ([facility] [address] [place] [address], from Last 3 Months Insurance MEDICARE MEDICAID - [place] Care Teams Director Mobile Relationship Specialty Start Date End Date Dk Rodriguez MD [address] [place] [address] [place] [address] [place] PCP - General Internal Medicine 07/16/24
--- OUTSIDE RECORDS SUMMARY | 2025-02-15 07:39 | XMS_ITS | Clinical Summary ---
Author Organization [facility] Address [address] [place] [address] Care Team Providers Care Hourly Shift Name Role Phone Ref, Has No Pcp [...] Plan (01/03/2024 2:32 PM EDT): Presents from [facility] in the setting of urinary retention [...] Plan (01/03/2024 10:49 AM EDT): Presented from [facility] with hyponatremia (initially 123). Also had dizziness/lightheadedness, [...] Plan (01/02/2024 11:43 AM EDT): Presents from [facility] in the setting of urinary retention [...] Seroquel 25 mg twice daily Presents from [facility] forensic unit with documented history of schizophrenia. 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 indicates history of BPH with prior need for intermittent catheterization requiring urology evaluation in the past, records not available in our system). Per documentation from [facility] patient has seen urology at [facility] in [place]. He was started on Flomax outpatient. In [...] (01/02/2024 11:43 AM EDT): Paperwork from the [facility] indicates history of BPH with prior need for intermittent catheterization requiring urology evaluation in the past, records not available in our system). Per documentation from [facility] patient has seen urology at [facility] in [place]. He was started on Flomax outpatient. In [...] (1 - 1-dose 75+ series) 2040 Insurance [facility] MEDICARE [facility] Advance Directives * Full Code (Latest Code Status on File) Date Activated Date Inactivated Comments 12/30/2023 7:22 PM 01/03/2024 8:48 PM * Presumed Full Code Date Activated Date Inactivated Comments 12/30/2023 7:00 PM 12/30/2023 7:22 PM Care Teams Hourly Shift Relationship Specialty Start Date End Date Ref, Has No Pcp Or DO NOT EDIT THIS RECORD VIA PROVIDER ON THE FLY PCP - General Manager Servicing 12/30/23
--- OUTSIDE RECORDS SUMMARY | 2025-02-15 07:39 | XMS_ITS | Encounter Summary ---
Author Organization [facility] Address [address] [place] [address] Care Team Providers Care Knockdown Worker Name Role Phone Ref, Has No Pcp Or Primary Care Provider Unavail able Encounter Details Date Type Department Care Team (Late st Contact Info) Description 01/04/2024 Community Orders [facility] Epic[facility] Link [address] [place] [address] Bethany Lozano, DECORATIVE ENGRAVER [address] [place] [address] Social History Tobacco Use Types Packs/Day Years [...] on filedocumented in this encounter Care Teams Knockdown Worker Relationship Specialty Start Date End Date Ref, Has No Pcp Or DO NOT EDIT THIS RECORD VIA PROVIDER ON THE FLY PCP - General Information And Data Architect Analyst 12/30/23 documented as of this encounter
--- NOTE | 2025-02-15 07:56 | PC.NURSE ---
coming from half-way for cath issues. states it was placed three days ago and has since been bothering him. requesting to have it taken out d/t discomfort. awaiting provider at this time, call davis within reach. no obvious distress noted, in room watching tv
--- NOTE | 2025-02-15 10:10 | PC.NURSE ---
this RN to patient's room, patient fully dressed in the room. stating he just wants to leave and does not want to wait here any longer. no signs/symptoms of distress. ambulated with steady gait.
--- NOTE | 2025-02-15 10:15 | ED.MALEGU ---
HPI - Male Genitourinary General Chief complaint: Urogenital-Male Stated complaint: cath issues Time Seen by Provider: 02/15/25 09:52 Source: patient Mode of arrival: ambulatory Limitations: no limitations History of Present Illness ED Provider: ILA MOY PA-C HPI Narrative: 59-year-old male with pmhx significant for BPH, chronic suprapubic pain, GERD, HLD, schizoaffective disorder presents to the ED today for evaluation of urinary catheter discomfort x3 days. Reports having a new catheter placed 3 days ago. He is currently residing in a assisted, states they do not want to deal with me having catheter . No other concerns/ complaints. Related Data Home Medications ?Medication ?Instructions ?Recorded ?Confirmed aripiprazole 30 mg tablet 30 mg PO DAILY 01/31/25 02/07/25 lorazepam 1 mg tablet 1 mg PO DAILY PRN Anxiety 01/31/25 02/07/25 quetiapine 100 mg tablet 100 mg PO BEDTIME 01/31/25 02/07/25 quetiapine 50 mg tablet 50 mg PO BID 01/31/25 02/07/25 olanzapine 10 mg tablet 10 mg PO TID 02/03/25 02/07/25 Previous Rx's ?Medication ?Instructions ?Recorded atorvastatin 20 mg tablet 20 mg PO QPM 90 days #90 tabs 01/10/25 tamsulosin 0.4 mg capsule 0.4 mg PO QAM 90 days #90 caps 01/10/25 nitrofurantoin 100 mg PO Q12H 7 days #14 caps 02/12/25 monohydrate/macrocrystals 100 mg capsule (Macrobid) Allergies Allergy/AdvReac Type Severity Reaction Status Date / Time No Known Allergies (NO KNOWN Allergy Unknown UNKNOWN Verified 02/15/25 07:19 ALLERGIES) Review of Systems Review of Systems: Yes all other systems are reviewed and are negative PMFSH Past Medical History Attestation statement: The following information was validated with the patient. Source: old records reviewed and nursing notes reviewed Medical History Acute anxiety Smoker GERD without esophagitis Tubular adenoma of colon (~2018) Personal history of nicotine dependence Constipation Back pain Schizoaffective disorder, bipolar type Anxiety Benign prostatic hyperplasia with lower urinary tract symptoms Pure hypercholesterolemia Thought disorder Bipolar 1 disorder Mood disorder Surgical History History of colonoscopy (~04/2019) History of prostate surgery (~04/2019) History of open reduction and internal fixation (ORIF) procedure (~08/2018) Family History Family History Father Lung cancer BPH (benign prostatic hyperplasia) Mother Dementia Brother Myocardial infarction Other Mental health problem Substance abuse Social History Social History Household Members: Other Housing: Other Housing Other:: [facility] Do you presently have visiting nurse or other home services: No Unable to assess alcohol history related to: Unknown Alcohol intake: never Patient Tobacco Use Status: Current everyday Tobacco user Tobacco use type: Cigarette Cigarette Packs Per Day: 0.5 Cigarettes Per Day: 10.0 Years Smoked: 10 e-Cigarette/Vaping Use: Never Used Second Hand Smoke Exposure: Yes Advance Directives: No Advance Directives Information Provided: No Do you have a plan to hurt others: No Plan service: No Current occupational status: employed and disabled Current occupation: [employer] Sexual orientation: Straight/Heterosexual Cognitive needs: No Hearing needs: No Vision needs: Yes Physical Exam Vital Signs: Vital Signs: Last Vital Signs Temp 97.4 F 02/15/25 07:18 Pulse 96 02/15/25 07:18 Resp 18 02/15/25 07:18 BP 115/70 02/15/25 07:18 Pulse Ox 98 02/15/25 07:18 O2 Del Method Room Air 02/15/25 07:18 BMI result Body Mass Index 22.1 vital signs stable, afebrile Patient left the ED before I could properly examine him Course Course Course Narrative: I entered patient's room to evaluate him. Patient had decided to leave the ED prior to my evaluation. Medical Decision Making Differential Diagnosis Differential Diagnoses: The differential diagnosis associated with the presentation includes as above. Social Determinants Patient?s care significantly limited by Social Determinants of Health including: Other Social Determinant of Health Critical Care Time Critical Care Time Critical Care Time: No Discharge Plan Discharge Clinical Impression: Urinary catheter in place Patient Disposition: Left W/O Completing Treatment Prescriptions: No Action quetiapine 100 mg tablet 100 mg PO BEDTIME lorazepam 1 mg tablet 1 mg PO DAILY PRN (Reason: Anxiety) aripiprazole 30 mg tablet 30 mg PO DAILY quetiapine 50 mg tablet 50 mg PO BID olanzapine 10 mg tablet 10 mg PO TID nitrofurantoin monohyd/m-cryst [Macrobid] 100 mg capsule 100 mg PO Q12H 7 Days Qty: 14 0RF Rx Instructions: must administer with a meal/food tamsulosin 0.4 mg capsule 0.4 mg PO QAM 90 Days Qty: 90 0RF atorvastatin 20 mg tablet 20 mg PO QPM 90 Days Qty: 90 3RF Discharge Date/Time: 02/15/25 11:07
== END 2025-02-15 11:07 | disposition left against medical advice (07) ==
PROVIDERS: Emergency Provider Emergency Medicine; PCP Internal Medicine
DX: Z96.0 Presence of urogenital implants (principal)
CPT/HCPCS: 99281; 99284

== ENCOUNTER 2025-02-16 21:29 | Emergency (ER) | payer MEDICARE, MEDICAID, SELFPAY ==
--- OUTSIDE RECORDS SUMMARY | 2025-02-10 21:24 | XMS_ITS | Encounter Summary ---
Author Organization [facility] Address [address] [place] [address] Care Team Providers Care Cutter Barrel Drum Name Role Phone Dk Rodriguez MD Primary Care Provider + [phone] Reason for Visit * Reason Comments Abdominal Pain Pt states he's been constipated + bladder has been filling up w/ urine . Male Problem Encounter Details Date Type Department Care Team (Late st Contact Info) Description 02/10/2025 9:24 PM EDT - 02/10/2025 11:43 PM EDT Emergency [facility] Emergency [address] [place] [address] Discharge Disposition: Home or Self [...] with voiding, constipation- had small hard BM COOK TACO. Abd firm, tenderness om palpation in lower quadrants per patient. Non toxic appearing documented in this encounter Plan of Treatment Not on file documented as of this encounter Visit Diagnoses Not on filedocumented in this encounter Care Teams Cutter Barrel Drum Relationship Specialty Start Date End Date Dk Rodriguez MD [address] [place] [address] Dr [address] COY Lucero PCP - General Internal Medicine 07/16/24 documented as of this encounter
--- OUTSIDE RECORDS SUMMARY | 2025-02-14 20:31 | XMS_ITS | Encounter Summary ---
Author Organization [facility] Address [address] [place] [address] Care Team Providers Care Actuarial Consultant Name Role Phone Dk Rodriguez MD Primary Care Provider [phone] Reason for Visit * Reason Comments Abdominal Pain Male Problem Pt states he's havin g abdomen pain and difficulty urinating since this am. Encounter Details Date Type Department Care Team (Late st Contact Info) Description 02/14/2025 8:31 PM EDT - 02/14/2025 9:27 PM EDT Emergency [facility] Emergency [address] [place] [phone] Urinary retention (Primary Dx) Discharge Disposition: Home [...] Sign Reading Time Taken Comments Blood Pressure 111/71 02/14/2025 8:23 PM EDT Pulse 95 02/14/2025 8:23 PM EDT Temperature 36.8 C (98.2 F) 02/14/2025 8:23 PM EDT Respiratory Rate 19 02/14/2025 8:23 PM EDT Oxygen Saturation 98% 02/14/2025 8:23 PM EDT Inhaled Oxygen Concentration - - Weight 68 kg (150 lb) 02/14/2025 8:23 PM EDT Height 175.3 cm (5' 9 ) 02/14/2025 8:23 PM EDT Body Mass Index 22.15 02/14/2025 8:23 PM EDT documented in this encounter Functional [...] Gerard RN documented in this encounter Discharge Instructions * Discharge Instructions* DAMARI Wade - 02/14/2025 9:06 PM EDT Keep Santos catheter in until you follow-up with primary care doctor or urologist Return to ED if experiencing blockage or gross blood * Attachments The following attachments cannot be sent through Care Everywhere. * Urinary Retention (Tajik) documented in this encounter Discharge Disposition Disposition Code Departure Means Destination Comment s Home or Self Care documented in this encounter Progress Notes * Skylar Gann RN - 02/14/2025 8:22 PM EDT Pt has come in with abd pain from [facility], unable to urinate since this am. Pt reports bladder issues for a long time * DAMARI Wade - 02/14/2025 8:10 PM EDT HPI Chief Complaint Patient presents with Abdominal Pain Male Problem Pt states he's having abdomen pain and difficulty urinating since this am. HPI patient presents ED with urinary retention since this morning. States this happened before requiring catheterization. Slight suprapubic pain but denying fever chills testicle pain discharge hematuria when able to urinate. States that the urologist that he follows with. No data recorded Patient History Past Medical History: Diagnosis Date Bipolar 1 disorder ([facility] V24, [facility] V28) Hyperactivity of bladder Mood disorder ([facility] V24) No past surgical history on file. No family history on file. Social History Tobacco Use Smoking status: Every Day Current packs/day: 0.50 Types: Cigarettes Smokeless tobacco: Current Substance Use Topics Alcohol use: Not Currently Drug use: Never Review of Systems Review of Systems Physical Exam ED Triage Vitals [02/14/252022] Temp Heart Rate Resp BP 36.8 ??C (98.2 ??F) 95 19 111/71 SpO2 Temp src Heart Rate Source Patient Position 98 % -- -- -- BP Location FiO2 (%) -- -- Physical Exam GENERAL: No acute distress HEENT: Normocephalic and atraumatic, EOMI NECK: Supple, trachea is midline RESP: No respiratory distress, lung sounds clear and equal bilaterally, speaking complete sentences CARDIOVASCULAR: Heart sounds crisp without murmur, regular rate GASTROINTESTINAL: Abdomen is soft, non distended mild suprapubic tenderness MUSCULOSKELETAL: No obvious acute deformities, ROM intact SKIN: Warm and dry NEUROLOGIC: At baseline, no acute focal deficits PSYCHIATRIC: Calm and cooperative ED Course & MDM Clinical Impressions as of 02/15/25 0416 Urinary retention Medical Decision Making Differential diagnosis urinary retention likely from obstructive process given patient's chronic history history of recurrent cysts and alleged enlarged prostate Vital signs reviewed Pulse oximetry reviewed and found to be > 94% on room air Physical exam as above Nursing notes reviewed bladder scan obtained greater than 600 mL in the bladder Patient provided Santos catheter and reports instant relief Observed in the ED for about 20 minutes with no signs of blood or cloudiness to urine Declining urine sample or empiric antibiotics and would like to keep the catheter in until he can follow-up with his primary care doctor/PCP, leg bag provided Social determinants of health considered including housing follow-up social and financial support Patient deemed appropriate for discharge with symptomatic treatment, recommendations to follow-up with primary care doctor / specialist with return precautions provided Procedures DAMARI Waed 02/15/25 0418 Cosigned by Eric Cardenas MD at 02/15/2025 4:48 AM EDT documented in this encounter Plan of Treatment Not on file documented as of this encounter Visit Diagnoses Diagnosis Urinary retention- Primary Unspecified retention of urine documented in this encounter Orders Nursing Count Last Ordered Date First Orde red Date BLADDER SCAN 1 02/14/2025 INSERT INDWELLING CATHETER 1 02/14/2025 documented in this encounter Care Teams Actuarial Consultant Relationship Specialty Start Date End Date Dk Rodriguez MD [address] [place] [address] Dr Me[address]ia [address] Lucero PCP - General Internal Medicine 07/16/24 documented as of this encounter
--- OUTSIDE RECORDS SUMMARY | 2025-02-15 21:21 | XMS_ITS | Encounter Summary ---
Author Organization [facility] Address [address] [place] [address] Care Team Providers Care Yarder Boss Name Role Phone Dk Rodriguez MD Primary Care Provider [phone] Reason for Visit * Reason Comments Male Problem C/O PAIN R/T IUC IVONNE ROSALINA YESTERDAY Encounter Details Date Type Department Care Team (Late st Contact Info) Description 02/15/2025 9:21 PM EDT - 02/15/2025 9:45 PM EDT Emergency [facility] Emergency [address] [place] [phone] Encounter for Schafer catheter removal (Primary Dx) [...] sent through Care Everywhere. * Urinary Retention (Vietnamese) documented in this encounter Medications at Time [...] have pain, catheter is draining yellow urine. documented in this encounter Plan of Treatment Not on file documented as of this encounter Visit Diagnoses Diagnosis Encounter for Schafer catheter removal- Primary documented in this encounter Care Teams Yarder Boss Relationship Specialty Start Date End Date Dk Rodriguez MD [address] [place] [address] [address] [place] PCP - General Internal Medicine 07/16/24 documented as of this encounter
[2025-02-16 21:32] VITALS: BP 112/64; PULSE 83; RESP 20; TEMP 36.6; O2SAT 96; BMI 21.1
[2025-02-16 21:53] LABS: Hematocrit 37.7 % (42.0-52.0); Hemoglobin 13.0 g/dl (14.0-18.0); Imm Gran Abs Auto 0.01 X10*3/uL (0.00-0.03); Imm Gran Pct Auto 0.2 % (0.0-0.4); Lymphocytes Absolute Auto 2.0 X10*3/uL (1.2-4.9); MANUAL DIFF FLAG NO; Mean Corpuscular HGB Conc 34.5 g/dl (31.0-36.0); Mean Corpuscular Hemoglobin 32.3 pg (27.0-33.0); Mean Corpuscular Volume 93.5 fL (80.0-98.0); NRBC Abs Auto 0.000 X10*3/uL (0.0-0.012); NRBC Pct Auto 0.0 /100WBC (0.0-0.2); Platelet Count 174 X10*3/uL (160-400); Red Blood Count 4.03 X10*6/uL (4.60-5.80); White Blood Count 5.6 X10*3/uL (4.8-10.8)
[2025-02-16 21:54] LABS: Appearance Urine Clear; Glucose Urine UA Negative (Negative); PH 7.0 (5.0-9.0); Specific Gravity - Urine <= 1.005 (1.005-1.025); UMIC TRIGGER UACC YES
--- OUTSIDE RECORDS SUMMARY | 2025-02-16 21:55 | XMS_ITS | Clinical Summary ---
Author Organization [facility] Address [address] [place] [address] Phone Care Team Providers Care Room Server Name Role Phone Dk Rodriguez MD Primary Care Provider Allergies No known active allergies Medications tamsulosin (FLOMAX) 0.4 mg 24 hr capsule Take 1 capsule (0.4 mg total) by mouth 1 (one) time each day for 7 days. Capsules should be taken 30 minutes following the same meal each day. 7 capsule 02/23/20 Active Encounters Date Type Department Care Team Description 02/15/2025 9:21 PM EDT - 02/15/2025 9:45 PM EDT [facility] Emergency [address] [place] [phone] Encounter for Santos catheter removal (Primary Dx) Discharge Disposition: Home or Self Care 02/14/2025 8:31 PM EDT - 02/14/2025 9:27 PM EDT Emergency [facility] Emergency [address] [place] [phone] Urinary retention (Primary Dx) Discharge Disposition: Home or Self Care 02/10/2025 9:24 PM EDT - 02/10/2025 11:43 PM EDT [facility] Emergency [address] [place] [phone] Discharge Disposition: Home or Self Care 02/01/2025 8:58 PM EDT - 02/01/2025 10:49 PM EDT [facility] Emergency [address] [place] [phone] Discharge Disposition: Home or Self Care 01/30/2025 8:57 PM EDT - 01/31/2025 12:33 AM EDT [facility] Emergency [address] [place] [phone] Discharge Disposition: Home or Self Care 01/28/2025 9:14 PM EDT - 01/28/2025 11:28 PM EDT [facility] Emergency [address] [place] [phone] Discharge Disposition: Home or Self Care 01/14/2025 8:53 PM EDT - 01/15/2025 12:26 AM EDT [facility] Emergency [address] [place] [phone] Discharge Disposition: Home or Self Care 01/12/2025 8:45 PM EDT - 01/12/2025 11:57 PM EDT [facility] Emergency [address] [place] [phone] Dilcia Carl MD Discharge Disposition: Left Against Medical Advice 12/04/2024 11:34 PM EDT - 12/05/2024 1:06 AM EDT [facility] Emergency [address] [place] [phone] Discharge Disposition: Home or Self Care 12/02/2024 10:00 PM EDT - 12/03/2024 12:28 AM EDT [facility] Emergency [address] [place] [phone] Discharge Disposition: Home or Self Care 11/27/2024 10:17 PM EDT - 11/28/2024 8:54 AM EDT [facility] Emergency [address] [place] [phone] Discharge Disposition: Home or Self Care 11/26/2024 9:40 PM EDT - 11/27/2024 2:06 AM EDT [facility] Emergency [address] [place] [phone] Discharge Disposition: Home or Self Care 11/24/2024 11:19 PM EDT - 11/25/2024 1:14 AM EDT [facility] Emergency [address] [place] [phone] Discharge Disposition: Home or Self Care 11/23/2024 11:27 PM EDT - 11/24/2024 1:10 AM EDT [facility] Emergency [address] [place] [phone] Urinary retention (Primary Dx) Discharge Disposition: Home or Self Care 11/22/2024 10:08 PM EDT - 11/23/2024 2:55 AM EDT [facility] Emergency [address] [place] [phone] Discharge Disposition: Home or Self Care 11/18/2024 3:47 AM EDT - 11/18/2024 5:34 AM EDT [facility] Emergency [address] [place] [phone] Discharge Disposition: Home or Self Care from Last 3 Months Medical History Medical History Date Comments Bipolar 1 disorder (CMS/HCC V24, CMS/HCC V28) Mood disorder ([facility] V24) Hyperactivity of bladder Social History [...] Mass Index 22.15 02/15/2025 9:34 PM EDT Plan of Treatment Health Maintenance [...] LAB HEMETOLOGY METHOD 12/05/2024 12:52 AM T [facility] Hemoglobin 12.7(L) 13.5 - 17.5 [...] LAB HEMETOLOGY METHOD 12/05/2024 12:52 AM EDT [facility] Lymphocytes Absolute 2.04 1.00 - 5.00 K/mcL LAB HEMETOLOGY METHOD 12/05/2024 12:52 AM EDT [facility] Monocytes Absolute 0.82 0.20 - 1.00 K/mcL LAB HEMETOLOGY METHOD 12/05/2024 12:52 AM EDT [facility] Eosinophils Absolute 0.24 0.00 - 0.50 K/[facility] HEMETOLOGY METHOD 12/05/2024 12:52 AM EDT [facility] Basophils Absolute 0.06 0.00 - 0.20 K/[facility] LAB HEMETOLOGY METHOD 12/05/2024 12:52 AM EDT [facility] Immature Granulocytes Absolute 0.02 0.00 - 0.03 K/[facility] HEMETOLOGY METHOD 12/05/2024 12:52 AM EDT [facility] Blood Venous blood specimen / Unknown Venipuncture / Unknown 12/05/2024 12:00 AM EDT 12/05/2024 12:45 AM EDT us Dalila Alberto MD LAB BLOOD ORDERABLES Fin al Result [facility] [address] [place] [address], * (ABNORMAL) Comprehensive metabolic panel (12/05/2024 12:00 AM EDT) Sodium 139 133 - 145 mmol/L LAB CHEMISTRY METHOD 12/05/2024 1:25 AM EDT [facility] Potassium 3.6 3.5 - 5.5 mmol/L LAB CHEMISTRY METHOD 12/05[facility]24 [facility] Chloride 108 96 - [...] MD LAB BLOOD ORDERABLES Fin al Result [facility] [address] [place] [address], [place] [phone] * (ABNORMAL) Urinalysis with reflex microscopic and culture (11/23/2024 11:28 PM EDT) Specific [address] Urine 1.007 1.003 - 1.030 LAB URINALYSIS [...] MD LAB URINE ORDERABLES Final Res ult [facility] [address] [place] [address], * [place] urine culture tube (11/23/2024 11:28 PM EDT) Extra Tube Hold for add-ons. 11/25/2024 1:01 AM [facility] Comment:Auto resulted. Urine Urine specimen obtained by clean catch procedure / Unknown Non-blood Collection / Unknown 11/23/2024 11:28 PM EDT 11/24/2024 12:03 AM EDT us Ming Love MD LAB URINE ORDERABLES Final Res ult Performing Organization Address [facility]/ZIP Co de Phone Number [facility] [address] [place] [address], [place] [phone] * Culture urine (11/23/2024 11:28 PM EDT) Culture, Urine <10,000 CFU/mL gram positive cocci, insignificant count, no further workup 11/25/2024 10:10 AM EDT [facility] Urine Urine specimen obtained by clean catch procedure / Unknown Non-blood Collection / Unknown 11/23/2024 11:28 PM EDT 11/24/2024 12:11 AM EDT us Ming Love MD LAB MICROBIOLOGY - GENERAL ORD ERABLES Final Result Performing Organization Address [facility] Co de Phone Number [facility] [address] [place] [address], [place] [phone] from Last 3 Months Insurance [id number] [facility]ELI PEREZ [facility] [place] [address] MEDICARE MEDICAID - [place] Care Teams Room Server Relationship Specialty Start Date End Date Dk Rodriguez MD [address] [place] [address] [address] [place] PCP - General Internal Medicine 07/16/24
--- OUTSIDE RECORDS SUMMARY | 2025-02-16 21:55 | XMS_ITS | Encounter Summary ---
Author Organization [facility] Address [address] [place] [address] Care Team Providers Care Accounting Software Specialist Name Role Phone Ref, Has No Pcp Or Primary Care Provider Unavail able Encounter Details Date Type Department Care Team (Late st Contact Info) Description 01/04/2024 Community Orders [facility] EpicCare Link [address] [place] [address] Bethany Lozano, WATER SUPERVISOR [address] [place] [address] Social History Tobacco Use Types Packs/Day Years [...] on filedocumented in this encounter Care Teams Accounting Software Specialist Relationship Specialty Start Date End Date Ref, Has No Pcp Or DO NOT EDIT THIS RECORD VIA PROVIDER ON THE FLY PCP - General Air Surveillance Operator 12/30/23 documented as of this encounter
--- OUTSIDE RECORDS SUMMARY | 2025-02-16 21:55 | XMS_ITS | Clinical Summary ---
Author Organization [facility] Address [address] [place] [address] Care Team Providers Care Gluing Machine Operator Electronic Name Role Phone Ref, Has No Pcp [...] Plan (01/03/2024 2:32 PM EDT): Presents from [facility] in the setting of urinary retention [...] Plan (01/03/2024 10:49 AM EDT): Presented from [facility] with hyponatremia (initially 123). Also had [...] Plan (01/02/2024 11:43 AM EDT): Presents from [facility] in the setting of urinary retention [...] (01/03/2024 2:33 PM EDT): Paperwork from the [facility] indicates history of BPH with prior need for intermittent catheterization requiring urology evaluation in the past, records not available in our system). Per documentation from [facility] patient has seen urology at [facility] in [place]. He was started on Flomax outpatient. In [...] (01/02/2024 11:43 AM EDT): Paperwork from the [facility] indicates history of BPH with prior need for intermittent catheterization requiring urology evaluation in the past, records not available in our system). Per documentation from [facility] patient has seen urology at [facility] in [place]. He was started on Flomax outpatient. In [...] (1 - 1-dose 75+ series) [address] [facility] MEDICARE [facility] Advance Directives * Full Code (Latest Code Status on File) Date Activated Date Inactivated Comments 12/30/2023 7:22 PM 01/03/2024 8:48 PM * Presumed Full Code Date Activated Date Inactivated Comments 12/30/2023 7:00 PM 12/30/2023 7:22 PM Care Teams Gluing Machine Operator Electronic Relationship Specialty Start Date End Date Ref, Has No Pcp Or DO NOT EDIT THIS RECORD VIA PROVIDER ON THE FLY PCP - General Manager Money 12/30/23
[2025-02-16 22:03] LABS: Cannabinoid Screen Urine Not Detected (Not Detect)
[2025-02-16 22:12] LABS: Alanine Aminotransferase 22 U/L (0-40); Albumin Level 4.2 g/dL (3.5-5.0); Alkaline Phosphatase 73 U/L (39-117); Anion Gap 13 (12-20); Aspartate Amino Transferase 28 U/L (5-37); Blood Urea Nitrogen 11 mg/dL (9-16); Calcium 8.8 mg/dL (8.4-10.2); Carbon Dioxide 24 mmol/L (22-29); Chloride 106 mmol/L (96-108); Creatinine Clr Calc Pharmacy 108.8; Estimated Glomerular Filt Rate > 60; Potassium 4.3 mmol/L (3.3-5.1); Sodium 139 mmol/L (135-145); Total Protein 6.7 g/dL (6.5-8.0)
[2025-02-16 22:22] LABS: Acetaminophen LAB < 3 mcg/mL (<30); Salicylate < 5.0 mg/dL (15-30)
--- NOTE | 2025-02-16 22:28 | ED_ITS ---
HPI - Psych General Chief Complaint: Psychiatric Symptoms Stated Complaint: SI Time Seen by Provider: 02/16/25 22:19 History of Present Illness HPI Narrative: Patient is 59 years old with a history of psychiatric illness. Patient lives in a half-way. History of schizoaffective disorder. Presented today does not want to live in a half-way anymore worry that the half-way is taking his money and not giving him his money. Patient denies any suicidal homicidal ideation came for evaluation. Related Data Home Medications ?Medication ?Instructions ?Recorded ?Confirmed aripiprazole 30 mg tablet 30 mg PO DAILY 01/31/2510/27 lorazepam 1 mg tablet 1 mg PO DAILY PRN Anxiety 02/07/25 quetiapine 100 mg tablet 100 mg PO BEDTIME 01/31/25 0 02/07/25 quetiapine 50 mg tablet 50 mg PO BID 01/31/25 olanzapine 10 mg tablet 10 mg PO TID 02/03/25 Previous Rx's ?Medication ?Instructions ?Recorded atorvastatin 20 mg tablet 20 mg PO QPM 90 days #90 tab s 01/10/25 tamsulosin 0.4 mg capsule 0.4 mg PO QAM 90 days #90 ca ps 01/10/25 nitrofurantoin 100 mg PO Q12H 7 days #14 ca ps 02/12/25 monohydrate/macrocrystals 100 mg capsule (Macrobid) Allergies Allergy/AdvReac Type Severity Reaction Status Date / Time No Known Allergies (NO KNOWN Allergy Unknown UNKNOWN Verified 02/16/25 21:34 ALLERGIES) Review of Systems 2 Review of Systems: No SI no HI Yes all other systems are reviewed and are negative [facility] Past Medical History Attestation statement: The following information was validated with the patient. Medical History Acute anxiety Smoker GERD without esophagitis Tubular adenoma of colon (~2018) Personal history of nicotine dependence Constipation Back pain Schizoaffective disorder, bipolar type Anxiety Benign prostatic hyperplasia with lower urinary tract symptoms Pure hypercholesterolemia Thought disorder Bipolar 1 disorder Mood disorder Surgical History History of colonoscopy (~04/2019) History of prostate surgery (~04/2019) History of open reduction and internal fixation (ORIF) procedure (~08/2018) Family History Family History Father Lung cancer BPH (benign prostatic hyperplasia) Mother Dementia Brother Myocardial infarction Other Mental health problem Substance abuse Social History Social History Household Members: Other Housing: Other Housing Other:: [facility] Do you presently have visiting nurse or other home services: No Unable to assess alcohol history related to: Unknown Alcohol intake: never Patient Tobacco Use Status: Current everyday Tobacco user Tobacco use type: Cigarette Cigarette Packs Per Day: 0.5 Cigarettes Per Day: 10.0 Years Smoked: 10 Smoked in Last 30 Days: Yes e-Cigarette/Vaping Use: Never Used Second Hand Smoke Exposure: Yes Advance Directives: No Advance Directives Information Provided: Yes service: No Current occupational status: employed and disabled Current occupation: [employer] Sexual orientation: Straight/Heterosexual Cognitive needs: No Hearing needs: No Vision needs: Yes Physical Exam 2 Exam: Exam: Appearance: Alert. Oriented X3. No acute distress. Eyes: Pupils equal, round and reactive to light. ENT: Pharynx normal. Neck: Normal inspection. Neck supple. No lymph nodes noted. No crepitus CVS: Normal heart rate and rhythm. Pulses normal. Normal S1 and S2 Respiratory: No respiratory distress. Breath sounds normal. No Wheezing. No rales Abdomen: Soft and nontender. No rigidity. No distention. good BS x4 Skin: Skin warm and dry. Normal skin color. Normal skin turgor. Extremities: No lower extremity edema. Neurovascular intact to all extremities. No Lacerations. No Rash Neuro: Oriented X 3. No motor deficit. No sensory deficit. Moving all extermities. No slurred speech Vital Signs: Vital Signs: Last Vital Signs Temp 97.4 F 02/17/25 04:53 Pulse 75 02/17/25 08:04 Resp 16 02/17/25 08:04 BP 127/80 02/17/25 08:04 Pulse Ox 96 02/17/25 08:04 O2 Del Method Room Air 02/17/25 08:04 BMI result Body Mass Index 21.1 Course Course Course Narrative: 9:43 AM 02/17/2025 (Dr. Navneet Robin): Patient in physician observation for psychiatric evaluation.? No acute events reported overnight. Patient cleared for discharge to [facility] Medical Decision Making Medical Decision Making MDM Narrative: Well-appearing no acute distress. Alcohol is less than 10. CBC and chemistry are normal. Care team to evaluate patient. Urine is negative for infection. Tox screen is negative. Patient seen by care team. In no acute distress. Will be re-evaluated in the morning. Differential Diagnosis Differential Diagnoses: The differential diagnosis associated with the presentation includes Schizoaffective disorder Admission/Observation Consideration of admission/observation: Escalation of care including admission/observation considered Consult Healthcare Provider Management of the patient was discussed with: [employer] (Care team consulted) Lab Data [facility] Lab Attestation statement: I reviewed the patient's lab results. 02/16/25 21:48 02/16/25 21:48 Labs: Lab Results 02/16/25 Range/Units 21:48 WBC 5.6 (4.8-10.8) X10*3/uL RBC 4.03 L (4.60-5.80) X10*6/uL Hgb 13.0 L (14.0-18.0) g/dl Hct 37.7 L (42.0-52.0) % MCV 93.5 (80.0-98.0) fL MCH 32.3 (27.0-33.0) pg MCHC 34.5 (31.0-36.0) g/dl RDW 13.9 (11.0-16.0) % Plt Count 174 (160-400) X10*3/uL MPV 10.1 (9.4-12.4) fL Immature Gran % (Auto) 0.2 (0.0-0.4) % Neut % (Auto) 47.0 (45-73) % Lymph % (Auto) 36.2 (20-40) % Sherman % (Auto) 11.6 H (2-11) % Eos % (Auto) 4.1 H (0-4) % Baso % (Auto) 0.9 (0-2) % Lymph # (Auto) 2.0 (1.2-4.9) X10*3/uL Sherman # (Auto) 0.7 (0.1-1.2) X10*3/uL Eos # (Auto) 0.2 (0.0-0.4) X10*3/uL Baso # (Auto) 0.1 (0.0-0.2) X10*3/uL Abs Immat Gran (auto) 0.01 (0.00-0.03) X10*3/uL Absolute Neuts (auto) 2.6 (2.0-8.3) x10*3/uL Absolute Nucleated RBC 0.000 (0.0-0.012) X10*3/uL Nucleated RBC % (auto) 0.0 (0.0-0.2) /100WBC Sodium 139 (135-145) mmol/L Potassium 4.3 (3.3-5.1) mmol/L Chloride 106 (96-108) mmol/L Carbon Dioxide 24 (22-29) mmol/L Anion Gap 13 (12-20) BUN 11 (9-16) mg/dL Creatinine 0.67 (0.5-1.4) mg/dL Estim Creat Clear Calc 108.8 Estimated GFR > 60 Random Glucose 102 (60-115) mg/dL Calcium 8.8 (8.4-10.2) mg/dL Total Bilirubin 0.5 (0.0-1.0) mg/dL AST 28 (5-37) U/L ALT 22 (0-40) U/L Alkaline Phosphatase 73 (39-117) U/L Total Protein 6.7 (6.5-8.0) g/dL Albumin 4.2 (3.5-5.0) g/dL Urine Color Yellow Urine Appearance Clear Urine pH 7.0 (5.0-9.0) Ur Specific [place] <= 1.005 (1.005-1.025) Urine Protein Negative (Neg-Trace) mg/dL Urine Glucose (UA) Negative (Negative) mg/dL Urine Ketones Negative (Negative) mg/dL Urine Blood Negative (Negative) Urine Nitrite Negative (Negative) Ur Leukocyte Esterase Trace H (Negative) Urine RBC 0-2 (0-2) /HPF Urine WBC 0-5 (0-5) /HPF Ur Squamous Epith Cells 0-2 (0-2) /HPF Urine Bacteria None Seen (None Seen) Hyaline Casts 0-2 (0-2) /LPF Salicylates < 5.0 L (15-30) mg/dL Urine Opiates Screen Not Detected (Not Detect) Ur Buprenorphine Scrn Not Detected (Not Detect) ng/mL Ur Oxycodone Screen Not Detected (Not Detect) ng/mL Urine Methadone Screen Not Detected (Not Detect) ng/mL Urine Fentanyl Screen Not Detected (Not Detect) Acetaminophen < 3 (<30) mcg/mL Ur Barbiturates Screen Not Detected (Not Detect) Ur Phencyclidine Scrn Not Detected (Not Detect) Ur Amphetamines Screen Not Detected (Not Detect) U Benzodiazepines Scrn Not Detected (Not Detect) Urine Cocaine Screen Not Detected (Not Detect) U Marijuana (THC) Screen Not Detected (Not Detect) Ethyl Alcohol < 10 mg/dL Discharge Plan Discharge Clinical Impression: Schizoaffective disorder, bipolar type Patient Disposition: Home, Self-Care Additional Instructions: Discharge to [facility] Prescriptions: No Action quetiapine 100 mg tablet 100 mg PO BEDTIME lorazepam 1 mg tablet 1 mg PO DAILY PRN (Reason: Anxiety) aripiprazole 30 mg tablet 30 mg PO DAILY quetiapine 50 mg tablet 50 mg PO BID olanzapine 10 mg tablet 10 mg PO TID nitrofurantoin monohyd/m-cryst [Macrobid] 100 mg capsule 100 mg PO Q12H 7 Days Qty: 14 0RF Rx Instructions: must administer with a meal/food tamsulosin 0.4 mg capsule 0.4 mg PO QAM 90 Days Qty: 90 0RF atorvastatin 20 mg tablet 20 mg PO QPM 90 Days Qty: 90 3RF Interventions: [place]-Suicide Risk Severity Scale Last Done: 02/16/25 22:00 Print Language: Russian
[2025-02-17 04:53] VITALS: BP 118/80; PULSE 75; RESP 16; TEMP 36.3; O2SAT 95
[2025-02-17 08:04] VITALS: BP 127/80; PULSE 75; RESP 16; O2SAT 96
[2025-02-17 09:58] VITALS: BP 127/80; PULSE 75; RESP 16; TEMP -17.7; TEMP 0; O2SAT 96
== END 2025-02-17 09:58 | disposition home or self-care (01) ==
PROVIDERS: Emergency Provider Emergency Medicine Emergency Medical Services
DX: F25.0 Schizoaffective disorder, bipolar type (principal); R45.851 Suicidal ideations; F17.210 Nicotine dependence, cigarettes, uncomplicated; Z79.899 Other long term (current) drug therapy; Z51.81 Encounter for therapeutic drug level monitoring
CPT/HCPCS: 36415; 80053; 80143; 80179; 80307; 81001; 85025; 99284; 99285; S9485

== ENCOUNTER 2025-02-19 20:02 | Emergency (ER) | payer MEDICARE, MEDICAID, SELFPAY ==
--- OUTSIDE RECORDS SUMMARY | 2025-02-14 20:31 | XMS_ITS | Encounter Summary ---
Author Organization [facility] Address [address] [place] [address] Care Team Providers Care Switching Clerk Name Role Phone Dk Rodriguez MD Primary Care Provider [phone] Reason for Visit * Reason Comments Abdominal Pain Male Problem Pt states he's havin g abdomen pain and difficulty urinating since this am. Encounter Details Date Type Department Care Team (Late st Contact Info) Description 02/14/2025 8:31 PM EDT - 02/14/2025 9:27 PM EDT Emergency [facility] Emergency [address] [place] [phone] Urinary retention (Primary Dx) Discharge Disposition: Home [...] sent through Care Everywhere. * Urinary Retention (Italian) documented in this encounter Discharge Disposition Disposition Code Departure Means Destination Comment s Home or Self Care documented in this encounter Progress Notes * Skylar Gann RN - 02/14/2025 8:22 PM EDT [facility], unable to urinate since this am. Pt [...] Medical History: Diagnosis Date Bipolar 1 disorder ([facility] V24, [facility] V28) Hyperactivity of bladder Mood disorder ([facility] V24) No past surgical history on file. [...] specialist with return precautions provided Procedures DAMARI Wade 02/15/25 0418 Cosigned by Eric Cardenas MD [...] 02/14/2025 documented in this encounter Care Teams Switching Clerk Relationship Specialty Start Date End Date Dk Rodriguez MD [address] [place] [address] Dr Mejia [address] Lucero PCP - General Internal Medicine 07/16/24 documented as of this encounter
--- OUTSIDE RECORDS SUMMARY | 2025-02-15 21:21 | XMS_ITS | Encounter Summary ---
Author Organization [facility] Address [address] [place] [address] Care Team Providers Care Substation Operator Helper Name Role Phone Dk Rodriguez MD Primary Care Provider [phone] Reason for Visit * Reason Comments Male Problem C/O PAIN R/T IUC IVONNE ROSALINA YESTERDAY Encounter Details Date Type Department Care Team (Late st Contact Info) Description 02/15/2025 9:21 PM EDT - 02/15/2025 9:45 PM EDT Emergency [facility] Emergency [address] [place] [phone] Encounter for Schafer catheter removal (Primary Dx) Discharge Disposition: Home or Self [...] Sign Reading Time Taken Comments Blood Pressure 109/79 02/15/2025 9:34 PM EDT Pulse 84 02/15/2025 9:34 PM EDT Temperature 36.7 C (98.1 F) 02/15/2025 9:34 PM EDT Respiratory Rate 18 02/15/2025 9:34 PM EDT Oxygen Saturation 96% 02/15/2025 9:34 PM EDT Inhaled Oxygen Concentration - - Weight 68 kg (150 lb) 02/15/2025 9:34 PM EDT Height 175.3 cm (5' 9 ) 02/15/2025 9:34 PM EDT Body Mass Index 22.15 02/15/2025 9:34 PM EDT documented in this encounter Functional Status * Are you deaf or do you have serious difficulty hearing? Answer Date of Assessment Author No 11/24/2024 1:09 AM Taye Gerard RN * Are you blind or do you have serious difficulty seeing, even when wearing glasses? Answer Date of Assessment Author No 11/24/2024 1:09 AM EDTaye Pena RN * Do you have serious difficulty [...] documented in this encounter Discharge Instructions * Attachments The following attachments cannot be sent through Care Everywhere. * Urinary Retention (French) documented in this encounter Medications at Time of Discharge tamsulosin (FLOMAX) 0.4 mg 24 hr capsule Take 1 capsule (0.4 mg total) by mouth 1 (one) time each day for 7 days. Capsules should be taken 30 minutes following the same meal each day. 7 capsule 02/15/2025 documented as of this encounter Ordered Prescriptions Prescription Sig Dispense Quantity Refills Last Filled Start Date End Date tamsulosin (FLOMAX) 0.4 mg 24 hr capsule Take 1 capsule (0.4 mg total) by mouth 1 (one) time each day for 7 days. Capsules should be taken 30 minutes following the same meal each day. 7 capsule 02/15/2025 documented in this encounter Discharge Disposition Disposition Code Departure Means Destination Comment s Home or Self Care PT SEEN AND DISCHARGED BY PROVIDER documented in this encounter Progress Notes * Alfred Young RN - 02/15/2025 9:35 PM EDT Pt seen by provider in triage, indwelling schafer catheter removed. * Alfred Young RN - 02/15/2025 9:24 PM EDT Pt comes in with c/o lower abdominal pain since yesterday. Pt was seen and treated yesterday for urinary retention- schafer catheter was placed at this time. Pt states he continues to have pain, catheter is draining yellow urine. * DAMARI Wade - 02/15/2025 9:21 PM EDT HPI Chief Complaint Patient presents with Male Problem C/O PAIN R/T IUC PLACED YESTERDAY HPI presenting today requesting urinary catheter removed after being placed yesterday due to urinary retention. States he wants it out because it is uncomfortable and does not want to wait until he follows up with his primary care doctor or urologist. Denying any medical complaint injury hematuria fever chills No data recorded Patient History Past Medical History: Diagnosis Date Bipolar 1 disorder ([facility] V24, [facility] V28) Hyperactivity of bladder Mood disorder ([facility] V24) History reviewed. No pertinent surgical history. No family history on file. Social History Tobacco Use Smoking status: Every Day Current packs/day: 0.50 Types: Cigarettes Smokeless tobacco: Current Substance Use Topics Alcohol use: Not Currently Drug use: Never Review of Systems Review of Systems Physical Exam ED Triage Vitals [02/15/25 2134] Temp Heart Rate Resp BP 36.7 ??C (98.1 ??F) 84 18 109/79 SpO2 Temp Source Heart Rate Source Patient Position 96 % Oral -- Lying BP Location FiO2 (%) Left arm -- Physical Exam GENERAL: Well developed, no acute distress HEENT: Normocephalic and atraumatic, EOMI NECK: Supple, trachea is midline RESP: No respiratory distress CARDIOVASCULAR: Regular rate GASTROINTESTINAL: Abdomen is soft, non distended MUSCULOSKELETAL: ROM normal, no obvious acute deformities SKIN: Warm and dry NEUROLOGIC: At baseline, no acute focal deficits PSYCHIATRIC: Calm and cooperative ED Course & MDM Clinical Impressions as of 02/18/251930 Encounter for Schafer catheter removal Medical Decision Making Encounter for Schafer catheter removal Vital signs reviewed Pulse oximetry reviewed and found to be > 94% on room air Physical exam as above Nursing notes reviewed Patient declined to wait to urinate following removal but understands he can come back if he is experiencing urinary retention again Social determinants of health considered including housing follow-up social and financial support Patient deemed appropriate for discharge with symptomatic treatment, recommendations to follow-up with primary care doctor / specialist with return precautions provided Procedures DAMARI Wade 02/18/251931 Cosigned by George Piña MD at 02/19/2025 1:25 AM EDT documented in this encounter Plan of Treatment Not on file documented as of this encounter Visit Diagnoses Diagnosis Encounter for Schafer catheter removal- Primary documented in this encounter Care Teams Substation Operator Helper Relationship Specialty Start Date End Date Dk Rodriguez MD [address] [place] [address] Dr [address] [place], [place] PCP - General Internal Medicine 07/16/24 documented as of this encounter
[2025-02-19 20:09] VITALS: BP 107/60; PULSE 101; RESP 16; TEMP 37.2; O2SAT 95; BMI 21.6
--- OUTSIDE RECORDS SUMMARY | 2025-02-19 20:17 | XMS_ITS | Clinical Summary ---
Author Organization [facility] Address [address] [place] [address] Phone Care Team Providers Care Event Set Up Specialist Name Role Phone Dk Rodriguez MD [...] PM EDT - 02/15/2025 9:[address] [facility] [address] [place] [phone] Encounter for Santos catheter removal (Primary Dx) Discharge Disposition: Home or Self Care 02/14/2025 8:31 PM EDT - 02/14/2025 9:[address] [facility] [address] [place] [phone] Urinary retention (Primary Dx) Discharge Disposition: Home or Self Care 02/10/2025 9:24 PM EDT - 02/10/2025 11:[address] [facility] [address] [place] [phone] Discharge Disposition: Home or Self Care 02/01/2025 8:58 PM EDT - 02/01/2025 10:[address] [facility] [address] [place] [phone] Discharge Disposition: Home or Self Care 01/30/2025 8:57 PM EDT - 01/31/2025 12:[address] [facility] [address] [place] [phone] Discharge Disposition: Home or Self Care 01/28/2025 9:14 PM EDT - 01/28/2025 11:[address] [facility] [address] [place] [phone] Discharge Disposition: Home or Self Care 01/14/2025 8:53 PM EDT - 01/15/2025 12:[address] [facility] [address] [place] [phone] Discharge Disposition: Home or Self Care 01/12/2025 8:45 PM EDT - 01/12/2025 11:[address] [facility] [address] [place] [phone] Dilcia Carl MD Discharge Disposition: Left Against Medical Advice 12/04/2024 11:34 PM EDT - 12/05/2024 1:[address] [facility] [address] [place] [phone] Discharge Disposition: Home or Self Care 12/02/2024 10:00 PM EDT - 12/03/2024 12:[address] [facility] [address] [place] [phone] Discharge Disposition: Home or Self Care 11/27/2024 10:17 PM EDT - 11/28/2024 8:[address] [facility] [address] [place] [phone] Discharge Disposition: Home or Self Care 11/26/2024 9:40 PM EDT - 11/27/2024 2:[address] [facility] [address] [place] [phone] Discharge Disposition: Home or Self Care 11/24/2024 11:19 PM EDT - 11/25/2024 1:[address] [facility] [address] [place] [phone] Discharge Disposition: Home or Self Care 11/23/2024 11:27 PM EDT - 11/24/2024 1:[address] [facility] [address] [place] [phone] Urinary retention (Primary Dx) Discharge Disposition: Home or Self Care 11/22/2024 10:08 PM EDT - 11/23/2024 2:[address] [facility] [address] [place] [phone] Discharge Disposition: Home or Self Care from Last 3 Months Medical History Medical History Date Comments Bipolar 1 disorder ([facility] V24, [facility] V28) Mood disorder ([facility] V24) Hyperactivity of bladder Social History Tobacco [...] AM EDT [facility] RBC 4.00(L) 4.50 - 5.50 M/mcL LAB HEMETOLOGY METHOD 12/05/2024 12:52 AM [facility] Hemoglobin 12.7(L) 13.5 - 17.5 g/dL LAB HEMETOLOGY METHOD 12/05/2024 12:52 AM [facility] Hematocrit 37.3(L) 42.0 - 54.0 % LAB HEMETOLOGY METHOD 12/05/2024 12:52 AM [facility] MCV 93.7 79.0 - 98.0 FL LAB HEMETOLOGY METHOD 12/05/2024 12:52 AM [facility] MCH 31.9 27.0 - 32.0 pcg LAB HEMETOLOGY METHOD 12/05/2024 12:52 AM [facility] MCHC 34.0 32.0 - 37.0 g/dL LAB HEMETOLOGY METHOD 12/05/2024 12:52 AM [facility] RDW 13.2 11.0 - 15.0 % LAB HEMETOLOGY METHOD 12/05/2024 12:52 AM [facility] Platelets 207 130 - 400 K/mcL LAB HEMETOLOGY METHOD 12/05/2024 12:52 AM [facility] MPV 9.4 7.0 - 11.0 FL LAB HEMETOLOGY METHOD 12/05/2024 12:52 AM [facility] NRBC 0.0 <1.0 % LAB HEMETOLOGY METHOD 12/05/2024 12:52 AM [facility] NRBC Absolute 0.00 <0.10 K/mcL LAB HEMETOLOGY METHOD 12/05/2024 12:52 AM [facility] Neutrophils Relative 56.8 % LAB HEMETOLOGY METHOD 12/05/2024 12:52 AM [facility] Lymphocytes Relative 27.7 % LAB HEMETOLOGY METHOD 12/05/2024 12:52 AM [facility] Monocytes Relative 11.1 % LAB HEMETOLOGY METHOD 12/05/2024 12:52 AM [facility] Eosinophils Relative 3.3 % LAB HEMETOLOGY METHOD 12/05/2024 12:52 AM [facility] Basophils Relative 0.8 % LAB HEMETOLOGY METHOD 12/05/2024 12:52 AM [facility] Immature Granulocytes Relative 0.3 % LAB HEMETOLOGY METHOD 12/05/2024 12:52 AM [facility] Neutrophils Absolute 4.19 1.50 - 7.00 K/mcL LAB HEMETOLOGY METHOD 12/05/2024 12:52 AM [facility] Lymphocytes Absolute 2.04 1.00 - 5.00 K/mcL LAB HEMETOLOGY METHOD 12/05/2024 12:52 AM EDT [facility] Monocytes Absolute 0.82 0.20 - 1.00 K/mcL LAB HEMETOLOGY METHOD 12/05/2024 12:52 AM EDT [facility] Eosinophils Absolute 0.24 0.00 - 0.50 K/mcL LAB HEMETOLOGY METHOD 12/05/2024 12:52 AM EDT [facility] Basophils Absolute 0.06 0.00 - 0.20 K/mcL LAB HEMETOLOGY METHOD 12/05/2024 12:52 AM EDT [facility] Immature Granulocytes Absolute 0.02 0.00 - 0.03 K/[facility] LAB HEMETOLOGY METHOD 12/05/2024 12:52 AM [facility] Blood Venous blood specimen / Unknown Venipuncture / Unknown 12/05/2024 12:00 AM EDT 12/05/2024 12:45 AM EDT us Dalila Alberto MD LAB BLOOD ORDERABLES Fin al Result [facility] [address] [place] [address], * (ABNORMAL) Comprehensive metabolic panel (12/05/2024 12:00 AM EDT) Sodium 139 133 - 145 mmol/L LAB CHEMISTRY METHOD 12/05/2024 1:25 AM T [facility] Potassium 3.6 3.5 - 5.5 mmol/L LAB CHEMISTRY METHOD 12/05/2024 1:25 AM [facility] Chloride 108 96 - 110 mmol/L LAB CHEMISTRY METHOD 12/05/2024 1:25 AM [facility] CO2 26 21 - 32 mmol/L LAB CHEMISTRY METHOD 12/05/2024 1:25 AM T [facility] Anion Gap 5 3 - 11 LAB CHEMISTRY METHOD 12/05/2024 1:25 AM [facility] Glucose 80 70 - 100 mg/dL LAB CHEMISTRY METHOD 12/05/2024 1:25 AM [facility] BUN 8 5 - 25 mg/dL LAB CHEMISTRY METHOD 12/05/2024 1:25 AM [facility] Creatinine 0.69(L) 0.70 - 1.30 mg/dL LAB CHEMISTRY METHOD 12/05/2024 1:25 AM [facility] eGFR 107 >=60 mL/min/1. 73m2 LAB CHEMISTRY METHOD 12/05/2024 1:25 AM [facility] Comment:Calculation based on the Chronic Kidney Disease Epidemiology Collaboration (CKD-EPI) equation refit without adjustment for race. BUN/Creatinine Ratio 11.6 LAB CHEMISTRY METHOD 12/05/2024 1:25 AM [facility] Calcium 8.6 8.5 - 10.5 mg/dL LAB CHEMISTRY METHOD 12/05/2024 1:25 AM [facility] AST (SGOT) 13 10 - 42 unit/L LAB CHEMISTRY METHOD 12/05/2024 1:25 AM [facility] ALT (SGPT) 16 10 - 60 unit/L LAB CHEMISTRY METHOD 12/05/2024 1:25 AM [facility] Alkaline Phosphatase 67 42 - 121 unit/L LAB CHEMISTRY METHOD 12/05/2024 1:25 AM [facility] Total Protein 6.3 6.0 - 8.0 g/dL LAB CHEMISTRY METHOD 12/05/2024 1:25 AM [facility] Albumin 3.3 3.2 - 5.0 g/dL LAB CHEMISTRY METHOD 12/05/2024 1:25 AM [facility] Total Bilirubin 0.4 0.0 - 1.4 mg/dL LAB CHEMISTRY METHOD 12/05/2024 1:25 AM [facility] Blood Venous blood specimen / Unknown Venipuncture / Unknown 12/05/2024 12:00 AM EDT 12/05/2024 12:45 AM EDT us Dalila Alberto MD LAB BLOOD ORDERABLES Fin al Result [facility] [address] [place] [address], [place] [phone] * (ABNORMAL) Urinalysis with reflex microscopic and culture (11/23/2024 11:28 PM EDT) Specific [place] Urine 1.007 1.003 - 1.030 LAB URINALYSIS - AUTOMATED METHOD 11/24/2024 12:11 AM [facility] pH, Urine 6.5 5.0 - 8.0 pH LAB URINALYSIS - AUTOMATED METHOD 11/24/2024 12:11 AM [facility] Leukocytes, Urine Moderate(A) Negative LAB URINALYSIS - AUTOMATED METHOD 11/24/2024 12:11 AM [facility] Nitrite, Urine Negative Negative LAB URINALYSIS - AUTOMATED METHOD 11/24/2024 12:11 AM [facility] Protein, Urine Negative <=Trace mg/dL LAB URINALYSIS - AUTOMATED METHOD 11/24/2024 12:11 AM [facility] Glucose, Urine Negative Negative mg/dL LAB URINALYSIS - AUTOMATED METHOD 11/24/2024 12:11 AM [facility] Ketones, Urine Negative Negative mg/dL LAB URINALYSIS - AUTOMATED METHOD 11/24/2024 12:11 AM [facility] Urobilinogen , Urine 0.2 0.2 - 1.0 mg/dL LAB URINALYSIS - AUTOMATED METHOD 11/24/2024 12:11 AM [facility] Bilirubin, Urine Negative Negative LAB URINALYSIS - AUTOMATED METHOD 11/24/2024 12:11 AM EDT [facility] Blood, Urine Negative Negative LAB URINALYSIS - AUTOMATED METHOD 11/24/2024 12:11 AM T [facility] RBC, Urine 1.3 0 - 4 /HPF LAB URINALYSIS - AUTOMATED METHOD 11/24/2024 12:11 AM [facility] WBC, Urine 8.1(H) 0 - 4 /HPF LAB URINALYSIS - AUTOMATED METHOD 11/24/2024 12:11 AM [facility] Squamous Epithelial, Urine 14 0 - 60 /LPF LAB URINALYSIS - AUTOMATED METHOD 11/24/2024 12:11 AM [facility] Bacteria, Urine Negative Negative /HPF LAB URINALYSIS - AUTOMATED METHOD 11/24/2024 12:11 AM [facility] Hyaline Casts, Urine 0.4 0 - 3 /LPF LAB URINALYSIS - AUTOMATED METHOD 11/24/2024 12:11 AM [facility] Urine Urine specimen obtained by clean catch procedure / Unknown Non-blood Collection / Unknown 11/23/2024 11:28 PM EDT 11/24/2024 12:03 AM EDT us Ming Love MD LAB URINE ORDERABLES Final Res ult [facility] [address] [place] [address], * [place] urine culture tube (11/23/2024 11:28 PM EDT) Extra Tube Hold for add-ons. 11/25/2024 1:01 AM T [facility] Comment:Auto resulted. Urine Urine specimen obtained by clean catch procedure / Unknown Non-blood Collection / Unknown 11/23/2024 11:28 PM EDT 11/24/2024 12:03 AM EDT Ming Love MD LAB URINE ORDERABLES Final Res ult Performing Organization Address City/[facility]/ZIP Co de Phone Number [facility] [address] [place] [address], [place] [phone] * Culture urine (11/23/2024 11:28 PM EDT) [...] ORD ERABLES Final Result Performing Organization Address [facility] Co de Phone Number [facility] [address] [place] [address], [place] [phone] from Last 3 Months Insurance MEDICARE MEDICAID - [place] Care Teams Event Set Up Specialist Relationship Specialty Start Date End Date Dk Rodriguez MD [address] [place] [address] [address] [place], [place] PCP - General Internal Medicine 07/16/24
--- OUTSIDE RECORDS SUMMARY | 2025-02-19 20:18 | XMS_ITS | Encounter Summary ---
Author Organization [facility] Address [address] [place] [address] Care Team Providers Care Hearing Care Practitioner Name Role Phone Ref, Has No Pcp Or Primary Care Provider Unavail able Encounter Details Date Type Department Care Team (Late st Contact Info) Description 01/04/2024 Community Orders [facility] EpicCare Link [address] [place] [address] Bethany Lozano, DIRECTOR OF INTERCOLLEGIATE ATHLETICS [address] [place] [address] Social History Tobacco Use Types Packs/Day Years [...] on filedocumented in this encounter Care Teams Hearing Care Practitioner Relationship Specialty Start Date End Date Ref, Has No Pcp Or DO NOT EDIT THIS RECORD VIA PROVIDER ON THE FLY PCP - General Work And Family Life Consultant 12/30/23 documented as of this encounter
--- OUTSIDE RECORDS SUMMARY | 2025-02-19 20:18 | XMS_ITS | Clinical Summary ---
Author Organization [facility] Address [address] [place] [address] Care Team Providers Care Hatchery Supervisor Name Role Phone Ref, Has No [...] Plan (01/03/2024 2:32 PM EDT): Presents from [facility] in the setting of urinary retention [...] Plan (01/03/2024 10:49 AM EDT): Presented from [facility] with hyponatremia (initially 123). Also had [...] Plan (01/02/2024 11:43 AM EDT): Presents from [facility] in the setting of urinary retention [...] Seroquel 25 mg twice daily Presents from [facility]'s forensic unit with documented history of schizophrenia. 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 Continue home aripiprazole 20mg daily Continue home carbamazepine 500 mg twice daily Continue home Zyprexa 15 mg nightly Continue home Seroquel 25 mg twice daily Consider psychiatry consult if concern that antipsychotic medications are causing SIADH Patient presents from [facility], requires constant observation BPH (benign prostatic hyperplasia) 12/30/2023 Assessment & Plan (01/03/2024 2:33 PM EDT): Paperwork from the [facility] center indicates history of BPH with prior need for intermittent catheterization requiring urology evaluation in the past, records not available in our system). Per documentation from [facility] patient has seen urology at [facility] in [place]. He was started on Flomax outpatient. In [...] (01/02/2024 11:43 AM EDT): Paperwork from the [facility] indicates history of BPH with prior need for intermittent catheterization requiring urology evaluation in the past, records not available in our system). Per documentation from [facility] patient has seen urology at [facility] in [place]. He was started on Flomax outpatient. In [...] (1 - 1-dose 75+ series) 2040 Insurance [facility] MEDICARE [facility] Advance Directives * Full Code (Latest Code Status on File) Date Activated Date Inactivated Comments 12/30/2023 7:22 PM 01/03/2024 8:48 PM * Presumed Full Code Date Activated Date Inactivated Comments 12/30/2023 7:00 PM 12/30/2023 7:22 PM Care Teams Hatchery Supervisor Relationship Specialty Start Date End Date Ref, Has No Pcp Or DO NOT EDIT THIS RECORD VIA PROVIDER ON THE FLY PCP - General Admiralty Lawyer 12/30/23
[2025-02-19 20:19] VITALS: RESP 16
--- NOTE | 2025-02-19 20:20 | PC.NURSE ---
Pt comes to the pod today reporting that he is frustrated with his care home and wants respite. Denies SI/HI
[2025-02-19 21:03] LABS: MANUAL DIFF FLAG NO
[2025-02-19 21:04] LABS: Hematocrit 37.9 % (42.0-52.0); Hemoglobin 13.5 g/dl (14.0-18.0); Imm Gran Abs Auto 0.01 X10*3/uL (0.00-0.03); Imm Gran Pct Auto 0.1 % (0.0-0.4); Lymphocytes Absolute Auto 2.2 X10*3/uL (1.2-4.9); Mean Corpuscular HGB Conc 35.6 g/dl (31.0-36.0); Mean Corpuscular Hemoglobin 32.8 pg (27.0-33.0); Mean Corpuscular Volume 92.2 fL (80.0-98.0); NRBC Abs Auto 0.000 X10*3/uL (0.0-0.012); NRBC Pct Auto 0.0 /100WBC (0.0-0.2); Platelet Count 178 X10*3/uL (160-400); Red Blood Count 4.11 X10*6/uL (4.60-5.80); White Blood Count 6.8 X10*3/uL (4.8-10.8)
[2025-02-19 21:32] LABS: Cannabinoid Screen Urine Not Detected (Not Detect)
[2025-02-19 21:32] LABS: Alanine Aminotransferase 20 U/L (0-40); Albumin Level 4.1 g/dL (3.5-5.0); Alkaline Phosphatase 74 U/L (39-117); Anion Gap 13 (12-20); Aspartate Amino Transferase 23 U/L (5-37); Blood Urea Nitrogen 7 mg/dL (9-16); Calcium 8.7 mg/dL (8.4-10.2); Carbon Dioxide 27 mmol/L (22-29); Chloride 107 mmol/L (96-108); Creatinine Clr Calc Pharmacy 96.6; Estimated Glomerular Filt Rate > 60; Potassium 4.0 mmol/L (3.3-5.1); Sodium 143 mmol/L (135-145); Total Protein 7.0 g/dL (6.5-8.0)
[2025-02-19 21:51] LABS: Appearance Urine Clear; Glucose Urine UA Negative (Negative); PH 6.5 (5.0-9.0); Specific Gravity - Urine <= 1.005 (1.005-1.025); UMIC TRIGGER UACC YES
--- NOTE | 2025-02-19 23:44 | ED.GENADULT ---
[facility] - General Adult General Chief complaint: Psychiatric Symptoms Stated complaint: crisis/issues at shelter Time Seen by Provider: 02/19/25 20:56 Source: patient Mode of arrival: ambulatory History of Present Illness ED Provider: Fabby MCKAY narrative: 59-year-old male who has no SI/HI presents for complaints with the shelter and left there to be evaluated here stating that he is unhappy and wants to pursue alternatives of places to live. He does continue to endorse his chronic lower abdominal discomfort, this has not been associated with any fever, chills, nausea, vomiting. Related Data Home Medications ?Medication ?Instructions ?Recorded ?Confirmed aripiprazole 30 mg tablet 30 mg PO DAILY 01/31/25 02/20/25 lorazepam 1 mg tablet 1 mg PO DAILY PRN Anxiety 01/31/25 02/20/25 quetiapine 100 mg tablet 100 mg PO BEDTIME 01/31/25 02/20/25 quetiapine 50 mg tablet 50 mg PO BID 01/31/25 02/20/25 olanzapine 10 mg tablet 10 mg PO TID 02/03/25 02/20/25 Previous Rx's ?Medication ?Instructions ?Recorded atorvastatin 20 mg tablet 20 mg PO QPM 90 days #90 tabs 01/10/25 tamsulosin 0.4 mg capsule 0.4 mg PO QAM 90 days #90 caps 01/10/25 Allergies Allergy/AdvReac Type Severity Reaction Status Date / Time No Known Allergies (NO KNOWN Allergy Unknown UNKNOWN Verified 02/19/25 20:11 ALLERGIES) Review of Systems Review of Systems: Pertinent positives and negatives as stated in the [facility] Past Medical History Source: nursing notes reviewed Medical History Acute anxiety Smoker GERD without esophagitis Tubular adenoma of colon (~2018) Personal history of nicotine dependence Constipation Back pain Schizoaffective disorder, bipolar type Anxiety Benign prostatic hyperplasia with lower urinary tract symptoms Pure hypercholesterolemia Thought disorder Bipolar 1 disorder Mood disorder Surgical History History of colonoscopy (~04/2019) History of prostate surgery (~04/2019) History of open reduction and internal fixation (ORIF) procedure (~08/2018) Family History Family History Father Lung cancer BPH (benign prostatic hyperplasia) Mother Dementia Brother Myocardial infarction Other Mental health problem Substance abuse Social History Social History Household Members: Other Housing: Other Housing Other:: Care Home Do you presently have visiting nurse or other home services: No Unable to assess alcohol history related to: Unknown Alcohol intake: never Patient Tobacco Use Status: Current everyday Tobacco user Tobacco use type: Cigarette Cigarette Packs Per Day: 0.5 Cigarettes Per Day: 10.0 Years Smoked: 10 Smoked in Last 30 Days: Yes e-Cigarette/Vaping Use: Never Used Second Hand Smoke Exposure: Yes Use of substances other than those prescribed or required for medical reasons: No Advance Directives: No Advance Directives Information Provided: No service: No Current occupational status: employed and disabled Current occupation: [employer] Sexual orientation: Straight/Heterosexual Cognitive needs: No Hearing needs: No Vision needs: Yes Physical Exam ED Exam Exam: VITAL SIGNS: Reviewed. GENERAL: Well developed, well nourished, in no acute distress. HEAD: Normocephalic/atraumatic EYES: PERRLA, EOMI LUNGS: Normal breath sounds. No adventitious sounds or accessory muscle use. CARDIOVASCULAR: Regular rate and rhythm without noted murmurs ABDOMEN: Soft, non-tender, non-distended with bowel sounds. MUSCULOSKELETAL: No tenderness, deformities, or effusions noted on gross inspection. EXTREMITIES: No cyanosis, clubbing or edema. SKIN: Inspection of the skin reveals no rashes NEUROLOGIC: Alert and oriented x 4. Strength and sensation to light touch were grossly intact x 4, cranial nerves 2-12 are grossly intact. Vital Signs: Vital Signs - 24 hr 02/19/25 20:09 02/19/25 20:19 02/20/25 06:21 Temperature 98.9 F 97.9 F Pulse Rate 101 H 80 Respiratory Rate 16 16 17 Blood Pressure 107/60 117/73 Pulse Oximetry 95 98 Oxygen Delivery Method Room Air Room Air 02/20/25 11:31 02/20/25 14:52 Temperature 97.7 F Pulse Rate 80 80 Respiratory Rate 14 Blood Pressure 129/86 Pulse Oximetry 97 Oxygen Delivery Method Room Air BMI result Body Mass Index 21.6 Course Course Course Narrative: Time: 06:16 Date: 02/20/25 Provider: Kisha Knight, DO Patient in physician observation for psychiatric evaluation.? No acute events reported overnight. No current complaints. VS stable.? Patient is in bed search status. Will continue to monitor. Reevaluation(s) Reevaluation #1: Time: 17:10 Date: 02/20/25 Provider: Kisha Knight DO Physician observation ended at 1730. Patient has been cleared for discharge by the CARE team. Will follow up as an outpatient. Medications Administered Generic Name Dose Route Start Last Admin Trade Name Freshira PRN Reason Stop Dose Admin Aripiprazole 30 mg 02/20/25 09:00 02/20/25 08:40 Aripiprazole 30 Mg Tablet PO 30 mg DAILY RENAE Administration Olanzapine 10 mg 02/20/25 09:00 02/20/25 16:57 Olanzapine 10 Mg Tablet PO 10 mg TID RENAE Administration Quetiapine Fumarate 50 mg 02/20/25 09:00 02/20/25 16:57 Quetiapine Fumarate 50 Mg Tablet PO 50 mg BID@0900,1500 RENAE Administration Tamsulosin HCl 0.4 mg 02/20/25 09:00 02/20/25 08:40 Tamsulosin Hcl 0.4 Mg Capsule PO 0.4 mg DAILY RENAE Administration Medical Decision Making Medical Decision Making MDM Narrative: 59-year-old male with history and clinical presentation of similar presentations in the past, he often times has differences with the shelter that he is staying at and will decompressed by coming to the emergency room, I did review all investigations and when I compare them to most recent laboratory results that continue to be no acute abnormalities identified and urine toxicology is negative. Patient otherwise appears well and is nontoxic, he is not under a section 12 but a crisis consult will be placed in an effort to explore his request of wishing to go to a respite facility. 2348: Patient placed in physician observation because the patient needed more time for crisis evaluation. At the time observation was started the patient's vital signs were stable, patient is alert and oriented, neuro: Nonfocal, CV RRR, lungs clear Differential Diagnosis Differential Diagnoses: The differential diagnosis associated with the presentation includes See above Admission/Observation Consideration of admission/observation: Escalation of care including admission/observation considered See above Lab Data MDM Lab Attestation statement: I reviewed the patient's lab results. See above 02/19/25 20:55 02/19/25 20:55 Labs: Lab Results 02/19/25 02/19/25 Range/Units 20:54 20:55 WBC 6.8 (4.8-10.8) X10*3/uL RBC 4.11 L (4.60-5.80) X10*6/uL Hgb 13.5 L (14.0-18.0) g/dl Hct 37.9 L (42.0-52.0) % MCV 92.2 (80.0-98.0) fL MCH 32.8 (27.0-33.0) pg MCHC 35.6 (31.0-36.0) g/dl RDW 13.5 (11.0-16.0) % Plt Count 178 (160-400) X10*3/uL MPV 9.8 (9.4-12.4) fL Immature Gran % (Auto) 0.1 (0.0-0.4) % Neut % (Auto) 55.0 (45-73) % Lymph % (Auto) 32.0 (20-40) % [place] % (Auto) 9.3 (2-11) % Eos % (Auto) 2.9 (0-4) % Baso % (Auto) 0.7 (0-2) % Lymph # (Auto) 2.2 (1.2-4.9) X10*3/uL [place] # (Auto) 0.6 (0.1-1.2) X10*3/uL Eos # (Auto) 0.2 (0.0-0.4) X10*3/uL Baso # (Auto) 0.1 (0.0-0.2) X10*3/uL Abs Immat Gran (auto) 0.01 (0.00-0.03) X10*3/uL Absolute Neuts (auto) 3.7 (2.0-8.3) x10*3/uL Absolute Nucleated RBC 0.000 (0.0-0.012) X10*3/uL Nucleated RBC % (auto) 0.0 (0.0-0.2) /100WBC Sodium 143 (135-145) mmol/L Potassium 4.0 (3.3-5.1) mmol/L Chloride 107 (96-108) mmol/L Carbon Dioxide 27 (22-29) mmol/L Anion Gap 13 (12-20) BUN 7 L (9-16) mg/dL Creatinine 0.75 (0.5-1.4) mg/dL Estim Creat Clear Calc 96.6 Estimated GFR > 60 Random Glucose 93 (60-115) mg/dL Calcium 8.7 (8.4-10.2) mg/dL Total Bilirubin 0.4 (0.0-1.0) mg/dL AST 23 (5-37) U/L ALT 20 (0-40) U/L Alkaline Phosphatase 74 (39-117) U/L Total Protein 7.0 (6.5-8.0) g/dL Albumin 4.1 (3.5-5.0) g/dL Urine Color Yellow Urine Appearance Clear Urine pH 6.5 (5.0-9.0) Ur Specific [place] <= 1.005 (1.005-1.025) Urine Protein Negative (Neg-Trace) mg/dL Urine Glucose (UA) Negative (Negative) mg/dL Urine Ketones Negative (Negative) mg/dL Urine Blood Negative (Negative) Urine Nitrite Negative (Negative) Ur Leukocyte Esterase Trace H (Negative) Urine RBC 0-2 (0-2) /HPF Urine WBC 0-5 (0-5) /HPF Ur Squamous Epith Cells 0-2 (0-2) /HPF Urine Bacteria None Seen (None Seen) Hyaline Casts 0-2 (0-2) /LPF Urine Opiates Screen Not Detected (Not Detect) Ur Buprenorphine Scrn Not Detected (Not Detect) ng/mL Ur Oxycodone Screen Not Detected (Not Detect) ng/mL Urine Methadone Screen Not Detected (Not Detect) ng/mL Urine Fentanyl Screen Not Detected (Not Detect) Ur Barbiturates Screen Not Detected (Not Detect) Ur Phencyclidine Scrn Not Detected (Not Detect) Ur Amphetamines Screen Not Detected (Not Detect) U Benzodiazepines Scrn Not Detected (Not Detect) Urine Cocaine Screen Not Detected (Not Detect) U Marijuana (THC) Screen Not Detected (Not Detect) Ethyl Alcohol < 10 mg/dL External Record Review External record reviewed: Prior outpatient labs and Prior outpatient radiology Discharge Plan Discharge Clinical Impression: Social discord Patient Disposition: Xfer Other Transfer Details: respite Prescriptions: No Action quetiapine 100 mg tablet 100 mg PO BEDTIME lorazepam 1 mg tablet 1 mg PO DAILY PRN (Reason: Anxiety) aripiprazole 30 mg tablet 30 mg PO DAILY quetiapine 50 mg tablet 50 mg PO BID olanzapine 10 mg tablet 10 mg PO TID tamsulosin 0.4 mg capsule 0.4 mg PO QAM 90 Days Qty: 90 0RF atorvastatin 20 mg tablet 20 mg PO QPM 90 Days Qty: 90 3RF Interventions: [place]-Suicide Risk Severity Scale Last Done: 02/19/25 20:16 Print Language: German
[2025-02-20 06:21] VITALS: BP 117/73; PULSE 80; RESP 17; TEMP 36.6; O2SAT 98
--- NOTE | 2025-02-20 07:29 | PC.NURSE ---
Assumed care, report received. Pt is currently sleeping, breakfast provided.
[2025-02-20] MEDS: ARIPiprazole 30 MG TABLET PO (08:40)
[2025-02-20 11:31] VITALS: BP 129/86; PULSE 80; RESP 14; TEMP 36.5; O2SAT 97
[2025-02-20 14:52] VITALS: PULSE 80
--- NOTE | 2025-02-20 16:13 | MHC.CARE ---
Pt to be Lyfted to [facility] for 6 PM by CARE team.
== END 2025-02-20 17:33 | disposition other institution (70) ==
PROVIDERS: Emergency Provider Student in an Organized Health Care Education/Training Program; PCP Internal Medicine
DX: R45.2 Unhappiness (principal); R10.30 Lower abdominal pain, unspecified; Z51.81 Encounter for therapeutic drug level monitoring; Z79.899 Other long term (current) drug therapy; F17.210 Nicotine dependence, cigarettes, uncomplicated; Z91.51 Personal history of suicidal behavior
CPT/HCPCS: 36415; 80053; 80307; 81001; 85025; 99285; S9485

== ENCOUNTER 2025-02-23 19:39 | Emergency (ER) | payer MEDICARE, MEDICAID, SELFPAY ==
[2025-02-23 19:42] VITALS: BP 94/59; PULSE 113; RESP 18; TEMP 36.2; O2SAT 95; BMI 20.3
--- NOTE | 2025-02-23 19:44 | ED.GENADULT ---
HPI - General Adult General Chief complaint: Arrhythmia/Palpitations Stated complaint: PANIC ATTACK Related Data Home Medications ?Medication ?Instructions ?Recorded ?Confirmed aripiprazole 30 mg tablet 30 mg PO DAILY 01/31/25 02/25/25 lorazepam 1 mg tablet 1 mg PO DAILY PRN Anxiety 01/31/25 02/25/25 quetiapine 100 mg tablet 100 mg PO BEDTIME 01/31/25 02/25/25 quetiapine 50 mg tablet 50 mg PO BID 01/31/25 02/25/25 olanzapine 10 mg tablet 10 mg PO TID 02/03/25 02/25/25 Previous Rx's ?Medication ?Instructions ?Recorded atorvastatin 20 mg tablet 20 mg PO QPM 90 days #90 tabs 01/10/25 tamsulosin 0.4 mg capsule 0.4 mg PO QAM 90 days #90 caps 01/10/25 Allergies Allergy/AdvReac Type Severity Reaction Status Date / Time No Known Allergies (NO KNOWN Allergy Unknown UNKNOWN Verified 02/25/25 16:48 ALLERGIES) [facility] Past Medical History Medical History Acute anxiety Smoker GERD without esophagitis Tubular adenoma of colon (~2018) Personal history of nicotine dependence Constipation Back pain Schizoaffective disorder, bipolar type Anxiety Benign prostatic hyperplasia with lower urinary tract symptoms Pure hypercholesterolemia Thought disorder Bipolar 1 disorder Mood disorder Surgical History History of colonoscopy (~04/2019) History of prostate surgery (~04/2019) History of open reduction and internal fixation (ORIF) procedure (~08/2018) Family History Family History Father Lung cancer BPH (benign prostatic hyperplasia) Mother Dementia Brother Myocardial infarction Other Mental health problem Substance abuse Social History Social History Household Members: Other Housing: Other Housing Other:: Custodial Do you presently have visiting nurse or other home services: No Alcohol intake: never Patient Tobacco Use Status: Current everyday Tobacco user Tobacco use type: Cigarette Cigarette Packs Per Day: 0.5 Cigarettes Per Day: 10.0 Years Smoked: 10 e-Cigarette/Vaping Use: Never Used Second Hand Smoke Exposure: Yes Advance Directives: No Advance Directives Information Provided: Yes Do you have a plan to hurt others: No Plan service: No Current occupational status: employed and disabled Current occupation: [employer] Sexual orientation: Straight/Heterosexual Cognitive needs: No Hearing needs: No Vision needs: Yes Physical Exam ED Vital Signs: BMI result Body Mass Index 20.3 Course Course Course Narrative: This is a rapid medical exam performed by Waletr Crawford NP: Additional HPI, ROS, PE not included below will be deferred to primary provider. Patient is a 59y/oM pmhx anxiety, schizoaffective d/o, Bipolar type, smoking presenting to the ED with complaint of anxiety, palpitations. States he is not being allowed access to food/drinks for 15 hours at the shelter. Plan: EKG, labs Patient left the emergency department before myself or any of the other clinicians could review or explain physical exam findings, test results, need or lack there of for additional testing, treatment options, or a treatment plan. Medical Decision Making Lab Data 02/23/25 19:56 02/23/25 19:56 Labs: Lab Results 02/23/25 Range/Units 19:56 WBC 6.0 (4.8-10.8) X10*3/uL RBC 4.54 L (4.60-5.80) X10*6/uL Hgb 14.5 (14.0-18.0) g/dl Hct 42.6 (42.0-52.0) % MCV 93.8 (80.0-98.0) fL MCH 31.9 (27.0-33.0) pg MCHC 34.0 (31.0-36.0) g/dl RDW 13.2 (11.0-16.0) % Plt Count 204 (160-400) X10*3/uL MPV 9.9 (9.4-12.4) fL Immature Gran % (Auto) 0.5 H (0.0-0.4) % Neut % (Auto) 51.2 (45-73) % Lymph % (Auto) 34.0 (20-40) % [place] % (Auto) 9.6 (2-11) % Eos % (Auto) 3.5 (0-4) % Baso % (Auto) 1.2 (0-2) % Lymph # (Auto) 2.1 (1.2-4.9) X10*3/uL [place] # (Auto) 0.6 (0.1-1.2) X10*3/uL Eos # (Auto) 0.2 (0.0-0.4) X10*3/uL Baso # (Auto) 0.1 (0.0-0.2) X10*3/uL Abs Immat Gran (auto) 0.03 (0.00-0.03) X10*3/uL Absolute Neuts (auto) 3.1 (2.0-8.3) x10*3/uL Absolute Nucleated RBC 0.000 (0.0-0.012) X10*3/uL Nucleated RBC % (auto) 0.0 (0.0-0.2) /100WBC Sodium 139 (135-145) mmol/L Potassium 4.0 (3.3-5.1) mmol/L Chloride 106 (96-108) mmol/L Carbon Dioxide 25 (22-29) mmol/L Anion Gap 12 (12-20) BUN 6 L (9-16) mg/dL Creatinine 0.77 (0.5-1.4) mg/dL Estim Creat Clear Calc 91.3 Estimated GFR > 60 Random Glucose 92 (60-115) mg/dL Calcium 9.0 (8.4-10.2) mg/dL Magnesium 1.9 (1.6-2.6) mg/dL Total Bilirubin 0.4 (0.0-1.0) mg/dL AST 25 (5-37) U/L ALT 19 (0-40) U/L Alkaline Phosphatase 78 (39-117) U/L Total Protein 7.1 (6.5-8.0) g/dL Albumin 4.2 (3.5-5.0) g/dL TSH 0.29 L (0.32-4.0) uIU/mL Free T4 1.14 (0.71-1.85) ng/dL Discharge Plan Discharge Clinical Impression: Anxiety Patient Disposition: Left W/O Completing Treatment Prescriptions: No Action quetiapine 100 mg tablet 100 mg PO BEDTIME lorazepam 1 mg tablet 1 mg PO DAILY PRN (Reason: Anxiety) aripiprazole 30 mg tablet 30 mg PO DAILY quetiapine 50 mg tablet 50 mg PO BID olanzapine 10 mg tablet 10 mg PO TID tamsulosin 0.4 mg capsule 0.4 mg PO QAM 90 Days Qty: 90 0RF atorvastatin 20 mg tablet 20 mg PO QPM 90 Days Qty: 90 3RF Discharge Date/Time: 02/23/25 23:03
--- NOTE | 2025-02-23 19:46 | ECG_ITS ---
Test Reason : PALPITATION Blood Pressure : */* mmHG Vent. Rate : 98 BPM Atrial Rate : 98 BPM P-R Int : 128 ms QRS Dur : 80 ms QT Int : 334 ms P-R-T Axes : 79 -7 39 degrees QTcB Int : 426 ms Normal sinus rhythm Right atrial enlargement Borderline ECG When compared with ECG of 02-Feb-2025 15:59, No significant change was found Referred By: Cyndi Crawford Electronically Signed By: Yehuda Joy
[2025-02-23 20:02] LABS: MANUAL DIFF FLAG NO
[2025-02-23 20:07] LABS: Hematocrit 42.6 % (42.0-52.0); Hemoglobin 14.5 g/dl (14.0-18.0); Imm Gran Abs Auto 0.03 X10*3/uL (0.00-0.03); Imm Gran Pct Auto 0.5 % (0.0-0.4); Lymphocytes Absolute Auto 2.1 X10*3/uL (1.2-4.9); Mean Corpuscular HGB Conc 34.0 g/dl (31.0-36.0); Mean Corpuscular Hemoglobin 31.9 pg (27.0-33.0); Mean Corpuscular Volume 93.8 fL (80.0-98.0); NRBC Abs Auto 0.000 X10*3/uL (0.0-0.012); NRBC Pct Auto 0.0 /100WBC (0.0-0.2); Platelet Count 204 X10*3/uL (160-400); Red Blood Count 4.54 X10*6/uL (4.60-5.80); White Blood Count 6.0 X10*3/uL (4.8-10.8)
[2025-02-23 20:36] LABS: Alanine Aminotransferase 19 U/L (0-40); Albumin Level 4.2 g/dL (3.5-5.0); Alkaline Phosphatase 78 U/L (39-117); Anion Gap 12 (12-20); Aspartate Amino Transferase 25 U/L (5-37); Blood Urea Nitrogen 6 mg/dL (9-16); Calcium 9.0 mg/dL (8.4-10.2); Carbon Dioxide 25 mmol/L (22-29); Chloride 106 mmol/L (96-108); Creatinine Clr Calc Pharmacy 91.3; Estimated Glomerular Filt Rate > 60; Magnesium 1.9 mg/dL (1.6-2.6); Potassium 4.0 mmol/L (3.3-5.1); Sodium 139 mmol/L (135-145); Total Protein 7.1 g/dL (6.5-8.0)
[2025-02-23 21:29] LABS: Free T4 (Free Thyroxine) 1.14 ng/dL (0.71-1.85)
--- OUTSIDE RECORDS SUMMARY | 2025-02-23 23:05 | XMS_ITS | Clinical Summary ---
Author Organization [facility] Address [address] [place] [address] Care Team Providers Care Dispensary Technician Name Role Phone Ref, Has No Pcp [...] Plan (01/03/2024 2:32 PM EDT): Presents from [facility] in the setting of urinary retention [...] Plan (01/03/2024 10:49 AM EDT): Presented from [facility] with hyponatremia (initially 123). Also [...] Plan (01/02/2024 11:43 AM EDT): Presents from [facility] in the setting of urinary retention [...] Seroquel 25 mg twice daily Presents from [facility] forensic unit with documented history of schizophrenia. 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 Continue home aripiprazole 20mg daily Continue home carbamazepine 500 mg twice daily Continue home Zyprexa 15 mg nightly Continue home Seroquel 25 mg twice daily Consider psychiatry consult if concern that antipsychotic medications are causing SIADH Patient presents from [facility], requires constant observation BPH (benign prostatic hyperplasia) 12/30/2023 Assessment & Plan (01/03/2024 2:33 PM EDT): Paperwork from the [facility] center indicates history of BPH with prior need for intermittent catheterization requiring urology evaluation in the past, records not available in our system). Per documentation from [facility] patient has seen urology at [facility] in [place]. He was started on Flomax outpatient. In [...] (01/02/2024 11:43 AM EDT): Paperwork from the [facility] indicates history of BPH with prior need for intermittent catheterization requiring urology evaluation in the past, records not available in our system). Per documentation from [facility] patient has seen urology at [facility] in [place]. He was started on Flomax outpatient. In [...] (1 - 1-dose 75+ series) 2040 Insurance [facility] MEDICARE [facility] Advance Directives * Full Code (Latest Code Status on File) Date Activated Date Inactivated Comments 12/30/2023 7:22 PM 01/03/2024 8:48 PM * Presumed Full Code Date Activated Date Inactivated Comments 12/30/2023 7:00 PM 12/30/2023 7:22 PM Care Teams Dispensary Technician Relationship Specialty Start Date End Date Ref, Has No Pcp Or DO NOT EDIT THIS RECORD VIA PROVIDER ON THE FLY PCP - General Vault Person 12/30/23
--- OUTSIDE RECORDS SUMMARY | 2025-02-23 23:05 | XMS_ITS | Encounter Summary ---
Author Organization [facility] Address [address] [place] [address] Care Team Providers Care Reactor Service Operator Name Role Phone Ref, Has No Pcp Or Primary Care Provider Unavail able Encounter Details Date Type Department Care Team (Late st Contact Info) Description 01/04/2024 Community Orders [facility] EpicCare Link [address] [place] [address] Bethany Lozano, [employer] [address] [place] [address] Social History Tobacco Use Types Packs/Day Years [...] on filedocumented in this encounter Care Teams Reactor Service Operator Relationship Specialty Start Date End Date Ref, Has No Pcp Or DO NOT EDIT THIS RECORD VIA PROVIDER ON THE FLY PCP - General Enrollment Clerk 12/30/23 documented as of this encounter
--- OUTSIDE RECORDS SUMMARY | 2025-02-23 23:05 | XMS_ITS | Clinical Summary ---
Author Organization [facility] Address [address] [place] [address] Phone Care Team Providers Care Beauty Director Name Role Phone Dk Rodriguez MD Primary Care Provider [phone] Allergies No known active allergies Medications tamsulosin (FLOMAX) 0.4 mg 24 hr capsule Take 1 capsule (0.4 mg total) by mouth 1 (one) time each day for 7 days. Capsules should be taken 30 minutes following the same meal each day. 7 capsule 02/23/20 Encounters Date Type Department Care Team Description 02/15/2025 9:21 PM EDT - 02/15/2025 9:[address] [facility] Emergency [address] [place] [phone] Encounter for Santos catheter removal (Primary Dx) Discharge Disposition: Home or Self Care 02/14/2025 8:31 PM EDT - 02/14/2025 9:27 PM EDT Emergency [facility] Emergency [address] [place] [phone] Urinary retention (Primary Dx) Discharge Disposition: Home or Self Care 02/10/2025 9:24 PM EDT - 02/10/2025 11:[address] [facility] Emergency [address] [place] [phone] Discharge Disposition: Home or Self Care 02/01/2025 8:58 PM EDT - 02/01/2025 10:[address] [facility] [address] [place] [phone] Discharge Disposition: Home or Self Care 01/30/2025 8:57 PM EDT - 01/31/2025 12:[address] [facility] [address] [place] [phone] Discharge Disposition: Home or Self Care 01/28/2025 9:14 PM EDT - 01/28/2025 11:[address] [facility] Emergency [address] [place] [phone] Discharge Disposition: Home or Self Care 01/14/2025 8:53 PM EDT - 01/15/2025 12:[address] [facility] Emergency [address] [place] [phone] Discharge Disposition: Home or Self Care 01/12/2025 8:45 PM EDT - 01/12/2025 11:[address] [facility] Emergency [address] [place] [phone] Dilcia Carl MD Discharge Disposition: Left Against Medical Advice 12/04/2024 11:34 PM EDT - 12/05/2024 1:[address] [facility] Emergency [address] [place] [phone] Discharge Disposition: Home or Self Care 12/02/2024 10:00 PM EDT - 12/03/2024 12:[address] [facility] Emergency [address] [place] [phone] Discharge Disposition: Home or Self Care 11/27/2024 10:17 PM EDT - 11/28/2024 8:[address] [facility] Emergency [address] [place] [phone] Discharge Disposition: Home or Self Care 11/26/2024 9:40 PM EDT - 11/27/2024 2:[address] [facility] Emergency [address] [place] [phone] Discharge Disposition: Home or Self Care 11/24/2024 11:19 PM EDT - 11/25/2024 1:14 AM EDT Emergency [facility] Emergency [address] [place] [phone] Discharge Disposition: Home or Self Care 11/23/2024 11:27 PM EDT - 11/24/2024 1:10 AM EDT Emergency [facility] Emergency [address] [place] [phone] Urinary retention (Primary Dx) Discharge Disposition: Home or Self Care 11/22/2024 10:08 PM EDT - 11/23/2024 2:55 AM EDT Emergency [facility] Emergency [address] [place] [phone] Discharge Disposition: Home or Self Care from Last 3 Months Medical History Medical History Date Comments Bipolar 1 disorder ([facility] V24, [facility] V28) Mood disorder ([facility] V24) Hyperactivity of bladder Social History [...] CBC auto differential (12/05/2024 12:00 AM EDT) [facility] WBC 7.4 4.8 - 10.8 K/mcL LAB HEMETOLOGY METHOD 12/05/2024 12:52 AM EDT [facility] RBC 4.00(L) 4.50 - 5.50 M/mcL LAB HEMETOLOGY METHOD 12/05/2024 12:52 AM [facility] Hemoglobin 12.7(L) 13.5 - 17.5 g/dL LAB HEMETOLOGY METHOD 12/05/2024 12:52 AM [facility] Hematocrit 37.3(L) 42.0 - 54.0 % LAB HEMETOLOGY METHOD 12/05/2024 12:52 AM [facility] MCV 93.7 79.0 - 98.0 FL LAB HEMETOLOGY METHOD 12/05/2024 12:52 AM [facility] MCH 31.9 27.0 - 32.0 pcg LAB HEMETOLOGY METHOD 12/05/2024 12:52 AM [facility] MCHC 34.0 32.0 - 37.0 g/dL LAB HEMETOLOGY METHOD 12/05/2024 12:52 AM [facility] RDW 13.2 11.0 - 15.0 % LAB HEMETOLOGY METHOD 12/05/2024 12:52 AM [facility] Platelets 207 130 - 400 K/mcL LAB HEMETOLOGY METHOD 12/05/2024 12:52 AM [facility] MPV 9.4 7.0 - 11.0 FL LAB HEMETOLOGY METHOD 12/05/2024 12:52 AM [facility] NRBC 0.0 <1.0 % LAB HEMETOLOGY METHOD 12/05/2024 12:52 AM [facility] NRBC Absolute 0.00 <0.10 K/mcL LAB HEMETOLOGY METHOD 12/05/2024 12:52 AM [facility] Neutrophils Relative 56.8 % LAB HEMETOLOGY METHOD 12/05/2024 12:52 AM [facility] Lymphocytes Relative 27.7 % LAB HEMETOLOGY METHOD 12/05/2024 12:52 AM [facility] Monocytes Relative 11.1 % LAB HEMETOLOGY METHOD 12/05/2024 12:52 AM [facility] Eosinophils Relative 3.3 % LAB HEMETOLOGY METHOD 12/05/2024 12:52 AM [facility] Basophils Relative 0.8 % LAB HEMETOLOGY METHOD 12/05/2024 12:52 AM [facility] Immature Granulocytes Relative 0.3 % LAB HEMETOLOGY METHOD 12/05/2024 12:52 AM [facility] Neutrophils Absolute 4.19 1.50 - 7.00 K/mcL LAB HEMETOLOGY METHOD 12/05/2024 12:52 AM [facility] Lymphocytes Absolute 2.04 1.00 - 5.00 K/mcL LAB HEMETOLOGY METHOD 12/05/2024 12:52 AM EDT [facility] Monocytes Absolute 0.82 0.20 - 1.00 K/mcL LAB HEMETOLOGY METHOD 12/05/2024 12:52 AM EDT [facility] Eosinophils Absolute 0.24 0.00 - 0.50 K/mcL LAB HEMETOLOGY METHOD 12/05/2024 12:52 AM EDT [facility] Basophils Absolute 0.06 0.00 - 0.20 K/mcL LAB HEMETOLOGY METHOD 12/05/2024 12:52 AM T [facility] Immature Granulocytes Absolute 0.02 0.00 - 0.03 K/mcL LAB HEMETOLOGY METHOD 12/05/2024 12:52 AM [facility] Blood Venous blood specimen / Unknown Venipuncture / Unknown 12/05/2024 12:00 AM EDT 12/05/2024 12:45 AM EDT us Dalila Alberto MD LAB BLOOD ORDERABLES Fin al Result [facility] [address] [place] [address], * (ABNORMAL) Comprehensive metabolic panel (12/05/2024 12:00 AM EDT) Sodium 139 133 - 145 mmol/L LAB CHEMISTRY METHOD 12/05/2024 1:25 AM T [facility] Potassium 3.6 3.5 - 5.5 mmol/L LAB CHEMISTRY METHOD 12/05/2024 1:25 AM [facility] Chloride 108 96 - 110 mmol/L LAB CHEMISTRY METHOD 12/05/2024 1:25 AM [facility] CO2 26 21 - 32 mmol/L LAB CHEMISTRY METHOD 12/05/2024 1:25 AM [facility] Anion Gap 5 3 - 11 LAB CHEMISTRY METHOD 12/05/2024 1:25 AM [facility] Glucose 80 70 - 100 mg/dL LAB CHEMISTRY METHOD 12/05/2024 1:25 AM [facility] BUN 8 5 - 25 mg/dL LAB CHEMISTRY METHOD 12/05/2024 1:25 AM [facility] Creatinine 0.69(L) 0.70 - 1.30 mg/dL LAB CHEMISTRY METHOD 12/05/2024 1:25 AM [facility] eGFR 107 >=60 mL/min/1. 73m2 LAB CHEMISTRY METHOD 12/05/2024 1:25 AM [facility] Comment:Calculation based on the Chronic Kidney Disease Epidemiology Collaboration (CKD-EPI) equation refit without adjustment for race. BUN/Creatinine Ratio 11.6 LAB CHEMISTRY METHOD 12/05/2024 1:25 AM [facility] Calcium 8.6 8.5 - 10.5 mg/dL LAB CHEMISTRY METHOD 12/05/2024 1:25 AM [facility] AST (SGOT) 13 10 - 42 unit/L LAB CHEMISTRY METHOD 12/05/2024 1:25 AM [facility] ALT (SGPT) 16 10 - 60 unit/L LAB CHEMISTRY METHOD 12/05/2024 1:25 AM [facility] Alkaline Phosphatase 67 42 - 121 unit/L LAB CHEMISTRY METHOD 12/05/2024 1:25 AM [facility] Total Protein 6.3 6.0 - 8.0 g/dL LAB CHEMISTRY METHOD 12/05/2024 1:25 AM [facility] Albumin 3.3 3.2 - 5.0 g/dL LAB CHEMISTRY METHOD 12/05/2024 1:25 AM [facility] Total Bilirubin 0.4 0.0 - 1.4 mg/dL LAB CHEMISTRY METHOD 12/05/2024 1:25 AM [facility] Blood Venous blood specimen / Unknown Venipuncture / Unknown 12/05/2024 12:00 AM EDT 12/05/2024 12:45 AM EDT us Dalila Alberto MD LAB BLOOD ORDERABLES Fin al Result [facility] [address] [place] [address], [place] [phone] * (ABNORMAL) Urinalysis with reflex microscopic and culture (11/23/2024 11:28 PM EDT) Specific [place] Urine 1.007 1.003 - 1.030 LAB URINALYSIS - AUTOMATED METHOD 11/24/2024 12:11 AM [facility] pH, Urine 6.5 5.0 - 8.0 pH LAB URINALYSIS - AUTOMATED METHOD 11/24/2024 12:11 AM [facility] Leukocytes, Urine Moderate(A) Negative LAB URINALYSIS - AUTOMATED METHOD 11/24/2024 12:11 AM [facility] Nitrite, Urine Negative Negative LAB URINALYSIS - AUTOMATED METHOD 11/24/2024 12:11 AM [facility] Protein, Urine Negative <=Trace mg/dL LAB URINALYSIS - AUTOMATED METHOD 11/24/2024 12:11 AM [facility] Glucose, Urine Negative Negative mg/dL LAB URINALYSIS - AUTOMATED METHOD 11/24/2024 12:11 AM [facility] Ketones, Urine Negative Negative mg/dL LAB URINALYSIS - AUTOMATED METHOD 11/24/2024 12:11 AM [facility] Urobilinogen , Urine 0.2 0.2 - 1.0 mg/dL LAB URINALYSIS - AUTOMATED METHOD 11/24/2024 12:11 AM [facility] Bilirubin, Urine Negative Negative LAB URINALYSIS - AUTOMATED METHOD 11/24/2024 12:11 AM EDT [facility] Blood, Urine Negative Negative LAB URINALYSIS - AUTOMATED METHOD 11/24/2024 12:11 AM [facility] RBC, Urine 1.3 0 - 4 /HPF LAB URINALYSIS - AUTOMATED METHOD 11/24/2024 12:11 AM [facility] WBC, Urine 8.1(H) 0 - 4 /HPF LAB URINALYSIS - AUTOMATED METHOD 11/24/2024 12:11 AM [facility] Squamous Epithelial, Urine 14 0 - 60 /LPF LAB URINALYSIS - AUTOMATED METHOD 11/24/2024 12:11 AM [facility] Bacteria, Urine Negative Negative /HPF LAB URINALYSIS - AUTOMATED METHOD 11/24/2024 12:11 AM [facility] Hyaline Casts, Urine 0.4 0 - 3 /LPF LAB URINALYSIS - AUTOMATED METHOD 11/24/2024 12:11 AM [facility] Urine Urine specimen obtained by clean catch procedure / Unknown Non-blood Collection / Unknown 11/23/2024 11:28 PM EDT 11/24/2024 12:03 AM EDT us Ming Love MD LAB URINE ORDERABLES Final Res ult [facility] [address] [place] [address], * [place] urine culture tube (11/23/2024 11:28 PM EDT) Extra Tube Hold for add-ons. 11/25/2024 1:01 AM [facility] Comment:Auto resulted. Urine Urine specimen obtained by clean catch procedure / Unknown Non-blood Collection / Unknown 11/23/2024 11:28 PM EDT 11/24/2024 12:03 AM EDT Ming Love MD LAB URINE ORDERABLES Final Res ult Performing Organization Address City/[facility]/ZIP Co de Phone Number [facility] [address] [place] [address], [place] [phone] * Culture urine (11/23/2024 11:28 PM EDT) Culture, Urine <10,000 CFU/mL gram positive cocci, insignificant count, no further workup 11/25/2024 10:10 AM EDT [facility] Urine Urine specimen obtained by clean catch procedure / Unknown Non-blood Collection / Unknown 11/23/2024 11:28 PM EDT 11/24/2024 12:11 AM EDT Ming Love MD LAB MICROBIOLOGY - GENERAL ORD ERABLES Final Result Performing Organization Address [facility] Co de Phone Number [facility] [address] [place] [address], [place] [phone] from Last 3 Months Insurance MEDICARE MEDICAID - [place] Care Teams Beauty Director Relationship Specialty Start Date End Date Dk Rodriguez MD [address] [place] [address] [address] [place], [place] PCP - General Internal Medicine 07/16/24
== END 2025-02-23 23:03 | disposition left against medical advice (07) ==
LOC: HO.ED 23:01
PROVIDERS: Registered Nurse Emergency; Emergency Provider Emergency Medicine; PCP Internal Medicine
DX: F41.1 Generalized anxiety disorder (principal); F43.0 Acute stress reaction; I49.9 Cardiac arrhythmia, unspecified; F41.0 Panic disorder [episodic paroxysmal anxiety]; Z79.899 Other long term (current) drug therapy; F17.210 Nicotine dependence, cigarettes, uncomplicated
CPT/HCPCS: 36415; 80053; 83735; 84439; 84443; 85025; 93005; 99283

== ENCOUNTER → 2025-02-23 19:46 | Outpatient (BNV) | payer MEDICARE, MEDICAID, SELFPAY | PROVIDERS: Emergency Provider Emergency Medicine; PCP Internal Medicine; Visit Provider Internal Medicine Cardiovascular Disease | DX: I51.7 Cardiomegaly (principal) | CPT/HCPCS: 93010 ==

== ENCOUNTER 2025-02-24 20:23 | Emergency (ER) | payer MEDICARE, MEDICAID, SELFPAY ==
[2025-02-24 20:30] VITALS: BP 111/68; PULSE 103; RESP 16; TEMP 36.6; O2SAT 97; BMI 21.7
--- OUTSIDE RECORDS SUMMARY | 2025-02-25 00:02 | XMS_ITS | Clinical Summary ---
Author Organization [facility] Address [address] [place] [address] Care Team Providers Care Hydraulic Billet Maker Name Role Phone Ref, Has No Pcp [...] Plan (01/03/2024 2:32 PM EDT): Presents from [facility] in the setting of urinary retention [...] Plan (01/03/2024 10:49 AM EDT): Presented from [facility] with hyponatremia (initially 123). Also had [...] Plan (01/02/2024 11:43 AM EDT): Presents from [facility] in the setting of urinary retention [...] Seroquel 25 mg twice daily Presents from [facility]'s forensic unit with documented history of schizophrenia. 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 Per documentation from [facility] patient has seen urology at [facility] in [place]. He was started on Flomax outpatient. In [...] (01/02/2024 11:43 AM EDT): Paperwork from the [facility] indicates history of BPH with prior need for intermittent catheterization requiring urology evaluation in the past, records not available in our system). Per documentation from [facility] patient has seen urology at [facility] in [place]. He was started on Flomax outpatient. In [...] (1 - 1-dose 75+ series) 2040 Insurance [facility] MEDICARE [facility] Advance Directives * Full Code (Latest Code Status on File) Date Activated Date Inactivated Comments 12/30/2023 7:22 PM 01/03/2024 8:48 PM * Presumed Full Code Date Activated Date Inactivated Comments 12/30/2023 7:00 PM 12/30/2023 7:22 PM Care Teams Hydraulic Billet Maker Relationship Specialty Start Date End Date Ref, Has No Pcp Or DO NOT EDIT THIS RECORD VIA PROVIDER ON THE FLY PCP - General Junior Financial Analyst 12/30/23
--- OUTSIDE RECORDS SUMMARY | 2025-02-25 00:02 | XMS_ITS | Clinical Summary ---
Author Organization [facility] Address [address] [place] [address] Phone Care Team Providers Care Education Department Chair Name Role Phone Dk Rodriguez MD Primary [...] PM EDT - 02/15/2025 9:45 PM EDT [facility] Emergency [address] [place] [phone] Encounter for Santos catheter removal (Primary Dx) Discharge Disposition: Home or Self Care 02/14/2025 8:31 PM EDT - 02/14/2025 9:27 PM EDT Emergency [facility] Emergency [address] [place] [phone] Urinary retention (Primary Dx) Discharge Disposition: Home or Self Care 02/10/2025 9:24 PM EDT - 02/10/2025 11:43 PM EDT [facility] Emergency [address] [place] [phone] Discharge Disposition: Home or Self Care 02/01/2025 8:58 PM EDT - 02/01/2025 10:49 PM EDT [facility] Emergency [address] [place] [phone] Discharge Disposition: Home or Self Care 01/30/2025 8:57 PM EDT - 01/31/2025 12:33 AM EDT [facility] Emergency [address] [place] [phone] Discharge Disposition: Home or Self Care 01/28/2025 9:14 PM EDT - 01/28/2025 11:28 PM EDT [facility] Emergency [address] [place] [phone] Discharge Disposition: Home or Self Care 01/14/2025 8:53 PM EDT - 01/15/2025 12:26 AM EDT [facility] Emergency [address] [place] [phone] Discharge Disposition: Home or Self Care 01/12/2025 8:45 PM EDT - 01/12/2025 11:57 PM EDT [facility] Emergency [address] [place] [phone] Dilcia Carl MD Discharge Disposition: Left Against Medical Advice 12/04/2024 11:34 PM EDT - 12/05/2024 1:06 AM EDT [facility] Emergency [address] [place] [phone] Discharge Disposition: Home or Self Care 12/02/2024 10:00 PM EDT - 12/03/2024 12:28 AM EDT [facility] Emergency [address] [place] [phone] Discharge Disposition: Home or Self Care 11/27/2024 10:17 PM EDT - 11/28/2024 8:54 AM EDT [facility] Emergency [address] [place] [phone] Discharge Disposition: Home or Self Care 11/26/2024 9:40 PM EDT - 11/27/2024 2:06 AM EDT [facility] Emergency [address] [place] [phone] Discharge Disposition: Home or Self Care 11/24/2024 11:19 PM EDT - 11/25/2024 1:14 AM EDT Emergency [facility] Emergency [address] [place] [phone] Discharge Disposition: Home or Self Care from Last 3 Months Medical History Medical History Date Comments Bipolar 1 disorder (CMS/HCC V24, CMS/HCC V28) Mood disorder (CMS/HCC V24) Hyperactivity of bladder Social History Tobacco [...] AND DIFFERENTIAL STAT 12/05/2024 12:00 AM EDT from Last 3 Months Results * (ABNORMAL) CBC auto differential (12/05/2024 12:00 AM EDT) WBC 7.4 4.8 - 10.8 K/[facility] LAB HEMETOLOGY METHOD 12/05/2024 12:52 AM [facility] RBC 4.00(L) 4.50 - 5.50 M/mcL LAB HEMETOLOGY METHOD 12/05/2024 12:52 AM [facility] Hemoglobin 12.7(L) 13.5 - 17.5 g/dL LAB HEMETOLOGY METHOD 12/05/2024 12:52 AM [facility] Hematocrit 37.3(L) 42.0 - 54.0 % LAB HEMETOLOGY METHOD 12/05/2024 12:52 AM [facility] MCV 93.7 79.0 - 98.0 FL LAB HEMETOLOGY METHOD 12/05/2024 12:52 AM [facility] MCH 31.9 27.0 - 32.0 pcg LAB HEMETOLOGY METHOD 12/05/2024 12:52 AM [facility] MCHC 34.0 32.0 - 37.0 g/dL LAB HEMETOLOGY METHOD 12/05/2024 12:52 AM [facility] RDW 13.2 11.0 - 15.0 % LAB HEMETOLOGY METHOD 12/05/2024 12:52 AM [facility] Platelets 207 130 - 400 K/mcL LAB HEMETOLOGY METHOD 12/05/2024 12:52 AM [facility] MPV 9.4 7.0 - 11.0 FL LAB HEMETOLOGY METHOD 12/05/2024 12:52 AM [facility] NRBC 0.0 <1.0 % LAB HEMETOLOGY METHOD 12/05/2024 12:52 AM [facility] NRBC Absolute 0.00 <0.10 K/mcL LAB HEMETOLOGY METHOD 12/05/2024 12:52 AM [facility] Neutrophils Relative 56.8 % LAB HEMETOLOGY METHOD 12/05/2024 12:52 AM [facility] Lymphocytes Relative 27.7 % LAB HEMETOLOGY METHOD 12/05/2024 12:52 AM [facility] Monocytes Relative 11.1 % LAB HEMETOLOGY METHOD 12/05/2024 12:52 AM [facility] Eosinophils Relative 3.3 % LAB HEMETOLOGY METHOD 12/05/2024 12:52 AM [facility] Basophils Relative 0.8 % LAB HEMETOLOGY METHOD 12/05/2024 12:52 AM [facility] Immature Granulocytes Relative 0.3 % LAB HEMETOLOGY METHOD 12/05/2024 12:52 AM [facility] Neutrophils Absolute 4.19 1.50 - 7.00 K/mcL LAB HEMETOLOGY METHOD 12/05/2024 12:52 AM [facility] Lymphocytes Absolute 2.04 1.00 - 5.00 K/mcL LAB HEMETOLOGY METHOD 12/05/2024 12:52 AM [facility] Monocytes Absolute 0.82 0.20 - 1.00 K/mcL LAB HEMETOLOGY METHOD 12/05/2024 12:52 AM [facility] Eosinophils Absolute 0.24 0.00 - 0.50 K/mcL LAB HEMETOLOGY METHOD 12/05/2024 12:52 AM [facility] Basophils Absolute 0.06 0.00 - 0.20 K/mcL LAB HEMETOLOGY METHOD 12/05/2024 12:52 AM [facility] Immature Granulocytes Absolute 0.02 0.00 - 0.03 K/mcL LAB HEMETOLOGY METHOD 12/05/2024 12:52 AM [facility] Blood Venous blood specimen / Unknown Venipuncture / Unknown 12/05/2024 12:00 AM EDT 12/05/2024 12:45 AM EDT us Dalila Alberto MD LAB BLOOD ORDERABLES Fin al Result [facility] [address] [place] [address], * (ABNORMAL) Comprehensive metabolic panel (12/05/2024 12:00 AM EDT) Sodium 139 133 - 145 mmol/L LAB CHEMISTRY METHOD 12/05/2024 1:25 AM [facility] Potassium 3.6 3.5 - 5.5 mmol/L LAB CHEMISTRY METHOD 12/05/2024 1:25 AM [facility] Chloride 108 96 - 110 mmol/L LAB CHEMISTRY METHOD 12/05/2024 1:25 AM [facility] CO2 26 21 - 32 mmol/L LAB CHEMISTRY METHOD 12/05/2024 1:25 AM [facility] Anion Gap 5 3 - 11 LAB CHEMISTRY METHOD 12/05/2024 1:25 AM [facility] Glucose 80 70 - 100 mg/dL LAB CHEMISTRY METHOD 12/05/2024 1:25 AM [facility] BUN 8 5 - 25 mg/dL LAB CHEMISTRY METHOD 12/05/2024 1:25 AM [facility] Creatinine 0.69(L) 0.70 - 1.30 mg/dL LAB CHEMISTRY METHOD 12/05/2024 1:25 AM [facility] eGFR 107 >=60 mL/min/1. 73m2 LAB CHEMISTRY METHOD 12/05/2024 1:25 AM [facility] Comment:Calculation based on the Chronic Kidney Disease Epidemiology Collaboration (CKD-EPI) equation refit without adjustment for race. BUN/Creatinine Ratio 11.6 LAB CHEMISTRY METHOD 12/05/2024 1:25 AM [facility] Calcium 8.6 8.5 - 10.5 mg/dL LAB CHEMISTRY METHOD 12/05/2024 1:25 AM EDT [facility] AST (SGOT) 13 10 - 42 unit/L LAB CHEMISTRY METHOD 12/05/2024 1:25 AM T [facility] ALT (SGPT) 16 10 - 60 unit/L LAB CHEMISTRY METHOD 12/05/2024 1:25 AM EDT [facility] Alkaline Phosphatase 67 42 - 121 unit/L LAB CHEMISTRY METHOD 12/05/2024 1:25 AM EDT [facility] Total Protein 6.3 6.0 - 8.0 g/dL LAB CHEMISTRY METHOD 12/05/2024 1:25 AM EDT [facility] Albumin 3.3 3.2 - 5.0 g/dL LAB CHEMISTRY METHOD 12/05/2024 1:25 AM [facility] Total Bilirubin 0.4 0.0 - 1.4 mg/dL LAB CHEMISTRY METHOD 12/05/2024 1:25 AM EDT [facility] Blood Venous blood specimen / Unknown Venipuncture / Unknown 12/05/2024 12:00 AM EDT 12/05/2024 12:45 AM EDT us Dalila Alberto MD LAB BLOOD ORDERABLES Fin al Result [facility] [address] [place] [address], from Last 3 Months [place] [id number] [address] MEDICARE MEDICAID - [place] Care Teams Education Department Chair Relationship Specialty Start Date End Date Dk Rodriguez MD [address] [place] [address] [address] [place] PCP - General Internal Medicine 07/16/24
--- OUTSIDE RECORDS SUMMARY | 2025-02-25 00:02 | XMS_ITS | Encounter Summary ---
Author Organization [facility] Address [address] [place] [address] Care Team Providers Care Employee Development Manager Name Role Phone Ref, Has No Pcp Or Primary Care Provider Unavail able Encounter Details Date Type Department Care Team (Late st Contact Info) Description 01/04/2024 Community Orders [facility] EpicCare Link [address] [place] [address] Bethany Lozano, MASTER CARPENTER [address] [place] [address] Social History Tobacco Use Types Packs/Day Years [...] on filedocumented in this encounter Care Teams Employee Development Manager Relationship Specialty Start Date End Date Ref, Has No Pcp Or DO NOT EDIT THIS RECORD VIA PROVIDER ON THE FLY PCP - General Pet Nutrition Specialist 12/30/23 documented as of this encounter
== END 2025-02-25 00:09 | disposition left against medical advice (07) ==
PROVIDERS: Emergency Provider Emergency Medicine; PCP Internal Medicine
DX: F41.0 Panic disorder [episodic paroxysmal anxiety] (principal); Z53.21 Procedure and treatment not carried out due to patient leaving prior to being seen by health care provider
CPT/HCPCS: 99281

== ENCOUNTER 2025-02-25 16:29 | Emergency (ER) | payer MEDICARE, MEDICAID, SELFPAY ==
[2025-02-25 16:46] VITALS: BP 109/69; PULSE 68; RESP 18; TEMP 36.6; O2SAT 98; BMI 21.9
--- NOTE | 2025-02-25 16:48 | ED_ITS ---
HPI - General Adult General Chief complaint: Psychiatric Symptoms Stated complaint: Issues @ half-way Time Seen by Provider: 02/25/25 17:20 History of Present Illness ED Provider: Catarino Day MD HPI narrative: 59-year-old male with documented history of GERD, neurogenic bladder, chronic psychiatric illness from half-way he tells me ?I can not relax there ?. Denies SI HI. Related Data Home Medications ?Medication ?Instructions ?Recorded ?Confirmed aripiprazole 30 mg tablet 30 mg PO DAILY 01/31/2502/04 lorazepam 1 mg tablet 1 mg PO DAILY PRN Anxiety 02/25/25 quetiapine 100 mg tablet 100 mg PO BEDTIME 01/31/25 0 02/25/25 quetiapine 50 mg tablet 50 mg PO BID 01/31/25 olanzapine 10 mg tablet 10 mg PO TID 02/03/25 Previous Rx's ?Medication ?Instructions ?Recorded atorvastatin 20 mg tablet 20 mg PO QPM 90 days #90 tab s 01/10/25 tamsulosin 0.4 mg capsule 0.4 mg PO QAM 90 days #90 ca ps 01/10/25 Allergies Allergy/AdvReac Type Severity Reaction Status Date / Time No Known Allergies (NO KNOWN Allergy Unknown UNKNOWN Verified 02/25/25 16:48 ALLERGIES) [facility] Past Medical History Medical History Acute anxiety Smoker GERD without esophagitis Tubular adenoma of colon (~2018) Personal history of nicotine dependence Constipation Back pain Schizoaffective disorder, bipolar type Anxiety Benign prostatic hyperplasia with lower urinary tract symptoms Pure hypercholesterolemia Thought disorder Bipolar 1 disorder Mood disorder Surgical History History of colonoscopy (~04/2019) History of prostate surgery (~04/2019) History of open reduction and internal fixation (ORIF) procedure (~08/2018) Family History Family History Father Lung cancer BPH (benign prostatic hyperplasia) Mother Dementia Brother Myocardial infarction Other Mental health problem Substance abuse Social History Social History Household Members: Other Housing: Other Housing Other:: Skilled Nursing Do you presently have visiting nurse or other home services: No Alcohol intake: never Patient Tobacco Use Status: Current everyday Tobacco user Tobacco use type: Cigarette Cigarette Packs Per Day: 0.5 Cigarettes Per Day: 10.0 Years Smoked: 10 e-Cigarette/Vaping Use: Never Used Second Hand Smoke Exposure: Yes Advance Directives: No Advance Directives Information Provided: Yes Do you have a plan to hurt others: No Plan service: No Current occupational status: employed and disabled Current occupation: [employer] Sexual orientation: Straight/Heterosexual Cognitive needs: No Hearing needs: No Vision needs: Yes Physical Exam ED Exam Exam: EXAM: Gen: Alert, awake, well appearing, well hydrated. Head: Atraumatic Eyes: Anicteric, Normal conjunctiva. ENT: Moist mucosa, no pallor. ? Neck: Supple. Skin: ?No observable rash or bruising on exposed or examined skin Respiratory: Breathing comfortably, No distress.Clear to auscultation bilaterally, symmetric chest expansion, No wheeze, rales, ronchi. Cardiovascular: Regular rate and rhythm. No murmurs or rub. Well perfused periphery, warm extremities. No edema. ? Abdominal: No focal tenderness. Soft, no objective distension. No palpable masses or obvious organomegaly. ?No guarding, no rebound tenderness or other peritoneal findings. : No flank tenderness. Neuro: Alert. Gross movement of all extremities intact. ?Cranial nerve 2-12 not relevant to the current presentation. Face symmetric EOMI. Psych: Calm. Cooperative. No psychosis. Denies SI or HI. Appropriate and conversational. Requesting some time away from his half-way because he can not relax there. MSK: No grossly visible deformity. Vital signs: See flowsheet Vital Signs: Vital Signs - 24 hr 02/25/25 16:46 02/25/25 17:37 02/25/25 18:24 Temperature 98 F 98 F Pulse Rate 68 68 68 Respiratory Rate 18 18 18 Blood Pressure 109/69 109/69 Pulse Oximetry 98 BMI result Body Mass Index 21.9 Course Course Course Narrative: This is a Rapid Medical Examination (RME) performed by Addy Regalado PA-C in triage. Full HPI, ROS, assessment and treatment plan per primary provider in the Main ED. Hx: 59 yo M hx anxiety, schizoaffective d/o, Bipolar type, smoking here as he is having trouble at half-way . denies SI/HI. no physical complaints. Plan: care team Medical Decision Making Medical Decision Making MDM Narrative: Medical Decision Makin-year-old male who comes from a half-way seeking evaluation. Denied to me SI or HI and did not appear psychotic or intoxicated. After evaluation by care team and our comprehensive discussion together the patient was deemed to be low risk and was not amenable and in fact asking to go back to his half-way. He had a meal at dinner and did not have any medical complaints to suggest acute medical emergency. Preliminary Favored Differential Diagnosis: adjustment disorder, chronic anxiety among additional considered etiologies Testing Interpreted Independently: See below for details Radiology or Lab testing Results Reviewed: See below for details Consults: Behavioral health team/care team Independent Historians/External Chart Reviews: See below for details Social Determinants of Health Impacting MDM/Planning: See below for details Discharge Plan Discharge Clinical Impression: Mental and behavioral problem Patient Disposition: Home, Self-Care Instructions: Normal Exam (ED) Additional Instructions: You had a medical evaluation and examination by behavioral health care team. No acute emergent psychiatric or medical illness was identified and you desire to return back to her half-way. Prescriptions: No Action quetiapine 100 mg tablet 100 mg PO BEDTIME lorazepam 1 mg tablet 1 mg PO DAILY PRN (Reason: Anxiety) aripiprazole 30 mg tablet 30 mg PO DAILY quetiapine 50 mg tablet 50 mg PO BID olanzapine 10 mg tablet 10 mg PO TID tamsulosin 0.4 mg capsule 0.4 mg PO QAM 90 Days Qty: 90 0RF atorvastatin 20 mg tablet 20 mg PO QPM 90 Days Qty: 90 3RF Interventions: [place]-Suicide Risk Severity Scale Last Done: 02/25/25 17:34 ED Discharge Assessment Last Done: 02/25/25 18:24 Discharge Date/Time: 02/25/25 18:53 Print Language: Greenlandic
[2025-02-25 17:37] VITALS: PULSE 68; RESP 18
[2025-02-25 18:24] VITALS: BP 109/69; PULSE 68; RESP 18; TEMP 36.6
--- OUTSIDE RECORDS SUMMARY | 2025-02-25 18:50 | XMS_ITS | Clinical Summary ---
Author Organization [facility] Address [address] [place] [address] Phone Care Team Providers Care Field Software Engineer Name Role Phone Dk Rodriguez MD [...] PM EDT - 02/15/2025 9:45 PM EDT [facility] [address] [place] [phone] Encounter for Santos catheter removal (Primary Dx) Discharge Disposition: Home or Self Care 02/14/2025 8:31 PM EDT - 02/14/2025 9:27 PM EDT Emergency [facility] Emergency [address] [place] [address] [phone] Urinary retention (Primary Dx) Discharge Disposition: Home or Self Care 02/10/2025 9:24 PM EDT - 02/10/2025 11:43 PM EDT [facility] [address] [place] [phone] Discharge Disposition: Home or Self Care 02/01/2025 8:58 PM EDT - 02/01/2025 10:49 PM EDT [facility] [address] [place] [phone] Discharge Disposition: Home or Self Care 01/30/2025 8:57 PM EDT - 01/31/2025 12:33 AM EDT [facility] [address] [place] [phone] Discharge Disposition: Home or Self Care 01/28/2025 9:14 PM EDT - 01/28/2025 11:28 PM EDT [facility] [address] [place] [phone] Discharge Disposition: Home or Self Care 01/14/2025 8:53 PM EDT - 01/15/2025 12:26 AM EDT [facility] [address] [place] [phone] Discharge Disposition: Home or Self Care 01/12/2025 8:45 PM EDT - 01/12/2025 11:57 PM EDT [facility] [address] [place] [phone] Dilcia Carl MD Discharge Disposition: Left Against Medical Advice 12/04/2024 11:34 PM EDT - 12/05/2024 1:06 AM EDT [facility] [address] [place] [phone] Discharge Disposition: Home or Self Care 12/02/2024 10:00 PM EDT - 12/03/2024 12:28 AM EDT [facility] [address] [place] [phone] Discharge Disposition: Home or Self Care 11/27/2024 10:17 PM EDT - 11/28/2024 8:54 AM EDT [facility] [address] [place] [phone] Discharge Disposition: Home or Self Care 11/26/2024 9:40 PM EDT - 11/27/2024 2:06 AM EDT [facility] Emergency [address] [place] [phone] Discharge Disposition: Home or Self Care 11/24/2024 11:19 PM EDT - 11/25/2024 1:14 AM EDT Emergency [facility] Emergency [address] [place] [phone] Discharge Disposition: Home or Self [...] AM EDT) WBC 7.4 4.8 - 10.8 [facility] LAB HEMETOLOGY METHOD 12/05/2024 12:52 AM [place] [...] al Result [facility] [address] [place] [address], * (ABNORMAL) Comprehensive metabolic panel (12/05/2024 12:00 [...] LAB CHEMISTRY METHOD 12/05/2024 1:25 AM EDT [facility] AST (SGOT) 13 10 - 42 unit/L LAB CHEMISTRY METHOD 12/05/2024 1:25 AM T [facility] ALT (SGPT) 16 10 - 60 unit/L LAB CHEMISTRY METHOD 12/05/2024 1:25 AM EDT [facility] Alkaline Phosphatase 67 42 - 121 unit/L LAB CHEMISTRY METHOD 12/05/2024 1:25 AM EDT [facility] Total Protein 6.3 6.0 - 8.0 g/dL LAB CHEMISTRY METHOD 12/05/2024 1:25 AM EDT [facility] Albumin 3.3 3.2 - 5.0 g/dL LAB CHEMISTRY METHOD 12/05/2024 1:25 AM [facility] Total Bilirubin 0.4 0.0 - 1.4 mg/dL LAB CHEMISTRY METHOD 12/05/2024 1:25 AM EDT [facility] Blood Venous blood specimen / Unknown Venipuncture / Unknown 12/05/2024 12:00 AM EDT 12/05/2024 12:45 AM EDT us Dalila Alberto MD LAB BLOOD ORDERABLES Fin al Result [facility] [address] [place] [address], from Last 3 Months [place] [id number] [address] MEDICARE MEDICAID - [place] Care Teams Field Software Engineer Relationship Specialty Start Date End Date Dk Rodriguez MD [address] [place] [address] [address] [place] PCP - General Internal Medicine 07/16/24
--- OUTSIDE RECORDS SUMMARY | 2025-02-25 18:50 | XMS_ITS | Clinical Summary ---
Author Organization [facility] Address [address] [place] [address] Care Team Providers Care Manufacturer Name Role Phone Ref, Has No Pcp [...] Plan (01/03/2024 2:32 PM EDT): Presents from [facility] in the setting of urinary retention [...] Plan (01/03/2024 10:49 AM EDT): Presented from [facility] with hyponatremia (initially 123). Also [...] Plan (01/02/2024 11:43 AM EDT): Presents from [facility] in the setting of urinary retention [...] Seroquel 25 mg twice daily Presents from [facility]'s forensic unit with documented history of schizophrenia. Continue home aripiprazole 20mg daily Continue home carbamazepine 500 mg twice daily Continue home Zyprexa 15 mg nightly Continue home Seroquel 25 mg twice daily Consider psychiatry consult if concern that antipsychotic medications are causing SIADH Patient presents from [facility], requires constant observation Assessment & Plan (01/02/2024 11:43 AM EDT): Home medications: aripiprazole 20 mg daily, carbamazepine 500 mg twice daily, Zyprexa 15 mg nightly, Seroquel 25 mg twice daily Presents from [facility]'s forensic unit with documented history of schizophrenia. Continue home aripiprazole 20mg daily Continue home carbamazepine 500 mg twice daily Continue home Zyprexa 15 mg nightly Continue home Seroquel 25 mg twice daily Consider psychiatry consult if concern that antipsychotic medications are causing SIADH Patient presents from [facility], requires constant observation BPH (benign prostatic hyperplasia) 12/30/2023 Assessment & Plan (01/03/2024 2:33 PM EDT): Paperwork from the [facility] indicates history of BPH with prior need for intermittent catheterization requiring urology evaluation in the past, records not available in our system). Per documentation from [facility] patient has seen urology at [facility] in [place]. He was started on Flomax outpatient. In [...] (01/02/2024 11:43 AM EDT): Paperwork from the [facility] indicates history of BPH with prior need for intermittent catheterization requiring urology evaluation in the past, records not available in our system). Per documentation from [facility] patient has seen urology at [facility] in [place]. He was started on Flomax outpatient. In [...] (1 - 1-dose 75+ series) 2040 Insurance [facility] MEDICARE [facility] Advance Directives * Full Code (Latest Code Status on File) Date Activated Date Inactivated Comments 12/30/2023 7:22 PM 01/03/2024 8:48 PM * Presumed Full Code Date Activated Date Inactivated Comments 12/30/2023 7:00 PM 12/30/2023 7:22 PM Care Teams Manufacturer Relationship Specialty Start Date End Date Ref, Has No Pcp Or DO NOT EDIT THIS RECORD VIA PROVIDER ON THE FLY PCP - General Oil Gas And Pipe Tester 12/30/23
--- OUTSIDE RECORDS SUMMARY | 2025-02-25 18:50 | XMS_ITS | Encounter Summary ---
Author Organization [facility] Address [address] [place] [address] Care Team Providers Care Weir Fisherman Name Role Phone Ref, Has No Pcp Or Primary Care Provider Unavail able Encounter Details Date Type Department Care Team (Late st Contact Info) Description 01/04/2024 Community Orders [facility] EpicCare Link [address] [place] [address] eBthany Lozano, PALLET SORTER [address] [place] [address] Social History Tobacco Use Types Packs/Day Years [...] on filedocumented in this encounter Care Teams Weir Fisherman Relationship Specialty Start Date End Date Ref, Has No Pcp Or DO NOT EDIT THIS RECORD VIA PROVIDER ON THE FLY PCP - General Instant Print Operator 12/30/23 documented as of this encounter
== END 2025-02-25 18:53 | disposition home or self-care (01) ==
PROVIDERS: Emergency Provider Emergency Medicine; PCP Internal Medicine
DX: F99 Mental disorder, not otherwise specified (principal); Z79.899 Other long term (current) drug therapy; F17.210 Nicotine dependence, cigarettes, uncomplicated
CPT/HCPCS: 99284; S9485

== ENCOUNTER 2025-02-26 17:35 | Emergency (ER) | payer MEDICARE, MEDICAID, SELFPAY ==
[2025-02-26 17:47] VITALS: BP 123/87; PULSE 92; RESP 20; TEMP 36.4; O2SAT 95; BMI 21.5
--- NOTE | 2025-02-26 17:51 | ED.GENADULT ---
HPI - General Adult General Chief complaint: Behavioral Concerns Stated complaint: not doing well Related Data Home Medications ?Medication ?Instructions ?Recorded ?Confirmed aripiprazole 30 mg tablet 30 mg PO DAILY 01/31/25 02/25/25 lorazepam 1 mg tablet 1 mg PO DAILY PRN Anxiety 01/31/25 02/25/25 quetiapine 100 mg tablet 100 mg PO BEDTIME 01/31/25 02/25/25 quetiapine 50 mg tablet 50 mg PO BID 01/31/25 02/25/25 olanzapine 10 mg tablet 10 mg PO TID 02/03/25 02/25/25 Previous Rx's ?Medication ?Instructions ?Recorded atorvastatin 20 mg tablet 20 mg PO QPM 90 days #90 tabs 01/10/25 tamsulosin 0.4 mg capsule 0.4 mg PO QAM 90 days #90 caps 01/10/25 Allergies Allergy/AdvReac Type Severity Reaction Status Date / Time No Known Allergies (NO KNOWN Allergy Unknown UNKNOWN Verified 02/28/25 14:50 ALLERGIES) [facility] Past Medical History Medical History Acute anxiety Smoker GERD without esophagitis Tubular adenoma of colon (~2018) Personal history of nicotine dependence Constipation Back pain Schizoaffective disorder, bipolar type Anxiety Benign prostatic hyperplasia with lower urinary tract symptoms Pure hypercholesterolemia Thought disorder Bipolar 1 disorder Mood disorder Surgical History History of colonoscopy (~04/2019) History of prostate surgery (~04/2019) History of open reduction and internal fixation (ORIF) procedure (~08/2018) Family History Family History Father Lung cancer BPH (benign prostatic hyperplasia) Mother Dementia Brother Myocardial infarction Other Mental health problem Substance abuse Social History Social History Household Members: Other Housing: Other Housing Other:: Jail Do you presently have visiting nurse or other home services: No Alcohol intake: never Patient Tobacco Use Status: Current everyday Tobacco user Tobacco use type: Cigarette Cigarette Packs Per Day: 0.5 Cigarettes Per Day: 10.0 Years Smoked: 10 e-Cigarette/Vaping Use: Never Used Second Hand Smoke Exposure: Yes Advance Directives: No Advance Directives Information Provided: No service: No Current occupational status: employed and disabled Current occupation: [employer] Sexual orientation: Straight/Heterosexual Cognitive needs: No Hearing needs: No Vision needs: Yes Physical Exam ED Vital Signs: BMI result Body Mass Index 21.5 Course Course Course Narrative: This is a rapid medical exam performed by Walter Crawford NP: Additional HPI, ROS, PE not included below will be deferred to primary provider. Patient is a 59y/oM pmhx anxiety, schizoaffective d/o, Bipolar type, smoking presenting wtih complaint of not doing well at his retirement. Chronic abd pain. Denies SI/HI. Patient left the emergency department before myself or any of the other clinicians could review or explain physical exam findings, test results, need or lack there of for additional testing, treatment options, or a treatment plan. Discharge Plan Discharge Clinical Impression: Anxiety with agitation Patient Disposition: Left W/O Completing Treatment Prescriptions: No Action quetiapine 100 mg tablet 100 mg PO BEDTIME lorazepam 1 mg tablet 1 mg PO DAILY PRN (Reason: Anxiety) aripiprazole 30 mg tablet 30 mg PO DAILY quetiapine 50 mg tablet 50 mg PO BID olanzapine 10 mg tablet 10 mg PO TID tamsulosin 0.4 mg capsule 0.4 mg PO QAM 90 Days Qty: 90 0RF atorvastatin 20 mg tablet 20 mg PO QPM 90 Days Qty: 90 3RF Discharge Date/Time: 02/26/25 20:09
--- OUTSIDE RECORDS SUMMARY | 2025-02-26 20:09 | XMS_ITS | Clinical Summary ---
Author Organization [facility] Address [address] [place] [address] Care Team Providers Care Circular Knitter Name Role Phone Ref, Has No Pcp [...] Plan (01/03/2024 2:32 PM EDT): Presents from [facility] in the setting of urinary [...] Plan (01/03/2024 10:49 AM EDT): Presented from [facility] with hyponatremia (initially 123). Also had [...] Plan (01/02/2024 11:43 AM EDT): Presents from [facility] in the setting of urinary [...] Seroquel 25 mg twice daily Presents from [facility]'s forensic unit with documented history of schizophrenia. Continue home aripiprazole 20mg daily Continue home carbamazepine 500 mg twice daily Continue home Zyprexa 15 mg nightly Continue home Seroquel 25 mg twice daily Consider psychiatry consult if concern that antipsychotic medications are causing SIADH Patient presents from [facility], requires constant observation Assessment & Plan (01/02/2024 11:43 AM EDT): Home medications: aripiprazole 20 mg daily, carbamazepine 500 mg twice daily, Zyprexa 15 mg nightly, Seroquel 25 mg twice daily Presents from [facility]'s forensic unit with documented history of schizophrenia. Continue home aripiprazole 20mg daily Continue home carbamazepine 500 mg twice daily Continue home Zyprexa 15 mg nightly Continue home Seroquel 25 mg twice daily Consider psychiatry consult if concern that antipsychotic medications are causing SIADH Patient presents from [facility], requires constant observation BPH (benign prostatic hyperplasia) 12/30/2023 Assessment & Plan (01/03/2024 2:33 PM EDT): Paperwork from the [facility] indicates history of BPH with prior need for intermittent catheterization requiring urology evaluation in the past, records not available in our system). Per documentation from [facility] patient has seen urology at [facility] in [place]. He was started on Flomax outpatient. In [...] (01/02/2024 11:43 AM EDT): Paperwork from [facility] indicates history of BPH with prior need for intermittent catheterization requiring urology evaluation in the past, records not available in our system). Per documentation from [facility] patient has seen urology at [facility] in [place]. He was started on Flomax outpatient. In [...] (1 - 1-dose 75+ series) 2040 Insurance [facility] MEDICARE [facility] Advance Directives * Full Code (Latest Code Status on File) Date Activated Date Inactivated Comments 12/30/2023 7:22 PM 01/03/2024 8:48 PM * Presumed Full Code Date Activated Date Inactivated Comments 12/30/2023 7:00 PM 12/30/2023 7:22 PM Care Teams Circular Knitter Relationship Specialty Start Date End Date Ref, Has No Pcp Or DO NOT EDIT THIS RECORD VIA PROVIDER ON THE FLY PCP - General Tipping Machine Operator Automatic 12/30/23
--- OUTSIDE RECORDS SUMMARY | 2025-02-26 20:09 | XMS_ITS | Encounter Summary ---
Author Organization [facility] Address [address] [place] [address] Care Team Providers Care Assistant Pastry Chef Name Role Phone Ref, Has No Pcp Or Primary Care Provider Unavail able Encounter Details Date Type Department Care Team (Late st Contact Info) Description 01/04/2024 Community Orders [facility] EpicCare Link [address] [place] [address] Bethany Lozano, PHOTOENGRAVING PROOFER [address] [place] [address] Social History Tobacco Use Types Packs/Day Years [...] on filedocumented in this encounter Care Teams Assistant Pastry Chef Relationship Specialty Start Date End Date Ref, Has No Pcp Or DO NOT EDIT THIS RECORD VIA PROVIDER ON THE FLY PCP - General Child Care Director 12/30/23 documented as of this encounter
--- OUTSIDE RECORDS SUMMARY | 2025-02-26 20:09 | XMS_ITS | Clinical Summary ---
Author Organization [facility] Address [address] [place] [address] Phone Care Team Providers Care Shredding Specialist Name Role Phone Dk Rodriguez MD Primary Care Provider [phone] Allergies No known active allergies Medications tamsulosin (FLOMAX) 0.4 mg 24 hr capsule Take 1 capsule (0.4 mg total) by mouth 1 (one) time each day for 7 days. Capsules should be taken 30 minutes following the same meal each day. 7 capsule 02/23/20 Encounters Date Type Department Care Team Description 02/15/2025 9:21 PM EDT - 02/15/2025 9:45 PM EDT [facility] Emergency [address] [place] [phone] Encounter for Santos catheter removal (Primary Dx) Discharge Disposition: Home or Self Care 02/14/2025 8:31 PM EDT - 02/14/2025 9:27 PM EDT Emergency [facility] Emergency [address] [place] [phone] Urinary retention (Primary Dx) Discharge Disposition: Home or Self Care 02/10/2025 9:24 PM EDT - 02/10/2025 11:43 PM EDT [facility] Emergency [address] [place] [address] [phone] Discharge Disposition: Home or Self Care 02/01/2025 8:58 PM EDT - 02/01/2025 10:49 PM EDT [facility] Emergency [address] [place] [phone] Discharge Disposition: Home or Self Care 01/30/2025 8:57 PM EDT - 01/31/2025 12:33 AM EDT [facility] [address] [place] [phone] Discharge Disposition: Home or Self Care 01/28/2025 9:14 PM EDT - 01/28/2025 11:28 PM EDT [facility] Emergency [address] [place] [phone] Discharge Disposition: Home or Self Care 01/14/2025 8:53 PM EDT - 01/15/2025 12:26 AM EDT [facility] Emergency [address] [place] [phone] Discharge Disposition: Home or Self Care 01/12/2025 8:45 PM EDT - 01/12/2025 11:57 PM EDT [facility] Emergency [address] [place] [phone] Dilcia Carl MD Discharge Disposition: Left Against Medical Advice 12/04/2024 11:34 PM EDT - 12/05/2024 1:06 AM EDT [facility] Emergency [address] [place] [phone] Discharge Disposition: Home or Self Care 12/02/2024 10:00 PM EDT - 12/03/2024 12:28 AM EDT [facility] [address] [place] [phone] Discharge Disposition: Home or Self Care 11/27/2024 10:17 PM EDT - 11/28/2024 8:54 AM EDT [facility] [address] [place] [phone] Discharge Disposition: Home or Self Care 11/26/2024 9:40 PM EDT - 11/27/2024 2:06 AM EDT [facility] Emergency [address] [place] [phone] Discharge Disposition: Home or Self Care from Last 3 Months Medical History Medical History Date Comments Bipolar 1 disorder ([facility] V24, [facility] V28) Mood disorder ([facility] V24) Hyperactivity [...] 05/08/2022 Depression Screening 06/05/2024 COVID-19 Vaccine ( season) 2025 03/17/2023, 03/31/2021, 07/23/2020, Additional history [...] AM EDT) WBC 7.4 4.8 - 10.8 K/[facility] LAB HEMETOLOGY METHOD 12/05/2024 12:52 AM EDT [facility] RBC 4.00(L) 4.50 - 5.50 M/[facility] LAB HEMETOLOGY METHOD 12/05/2024 12:52 AM EDT [facility] Hemoglobin 12.7(L) 13.5 - 17.5 g/dL LAB HEMETOLOGY METHOD 12/05/2024 12:52 AM [facility] Hematocrit 37.3(L) 42.0 - 54.0 % LAB HEMETOLOGY METHOD 12/05/2024 12:52 AM [facility] MCV 93.7 79.0 - 98.0 FL LAB HEMETOLOGY METHOD 12/05/2024 12:52 AM [facility] MCH 31.9 27.0 - 32.0 pcg LAB HEMETOLOGY METHOD 12/05/2024 12:52 AM [facility] MCHC 34.0 32.0 - 37.0 g/dL LAB HEMETOLOGY METHOD 12/05/2024 12:52 AM [facility] RDW 13.2 11.0 - 15.0 % LAB HEMETOLOGY METHOD 12/05/2024 12:52 AM [facility] Platelets 207 130 - 400 K/mcL LAB HEMETOLOGY METHOD 12/05/2024 12:52 AM [facility] MPV 9.4 7.0 - 11.0 FL LAB HEMETOLOGY METHOD 12/05/2024 12:52 AM [facility] NRBC 0.0 <1.0 % LAB HEMETOLOGY METHOD 12/05/2024 12:52 AM [facility] NRBC Absolute 0.00 <0.10 K/mcL LAB HEMETOLOGY METHOD 12/05/2024 12:52 AM [facility] Neutrophils Relative 56.8 % LAB HEMETOLOGY METHOD 12/05/2024 12:52 AM [facility] Lymphocytes Relative 27.7 % LAB HEMETOLOGY METHOD 12/05/2024 12:52 AM [facility] Monocytes Relative 11.1 % LAB HEMETOLOGY METHOD 12/05/2024 12:52 AM T [facility] Eosinophils Relative 3.3 % LAB HEMETOLOGY METHOD 12/05/2024 12:52 AM [facility] Basophils Relative 0.8 % LAB HEMETOLOGY METHOD 12/05/2024 12:52 AM [facility] Immature Granulocytes Relative 0.3 % LAB HEMETOLOGY METHOD 12/05/2024 12:52 AM EDT [facility] Neutrophils Absolute 4.19 1.50 - 7.00 K/mcL LAB HEMETOLOGY METHOD 12/05/2024 12:52 AM [facility] Lymphocytes Absolute 2.04 1.00 - 5.00 K/mcL LAB HEMETOLOGY METHOD 12/05/2024 12:52 AM [facility] Monocytes Absolute 0.82 0.20 - 1.00 K/mcL LAB HEMETOLOGY METHOD 12/05/[facility]24 12:[facility] Eosinophils Absolute 0.24 0.00 - 0.50 K/mcL LAB HEMETOLOGY METHOD 12/05/2024 12:52 AM [facility] Basophils Absolute 0.06 0.00 - 0.20 K/mcL LAB HEMETOLOGY METHOD 12/05/2024 12:52 AM [facility] Immature Granulocytes Absolute 0.02 0.00 - 0.03 K/mcL LAB HEMETOLOGY METHOD 12/05/2024 12:52 AM [facility] Blood Venous blood specimen / Unknown Venipuncture / Unknown 12/05/2024 12:00 AM EDT 12/05/2024 12:45 AM EDT us Dalila Alberto MD LAB BLOOD ORDERABLES Fin al Result [facility] [address] [place] [address], [place] [phone] * (ABNORMAL) Comprehensive metabolic panel (12/05/2024 12:00 AM EDT) Sodium 139 133 - 145 mmol/L LAB CHEMISTRY METHOD 12/05/2024 1:25 AM [facility] Potassium 3.6 3.5 - 5.5 mmol/L LAB CHEMISTRY METHOD 12/05/2024 1:25 AM [facility] Chloride 108 96 - 110 mmol/L LAB CHEMISTRY METHOD 12/05/2024 1:25 AM [facility] CO2 26 21 - 32 mmol/L LAB CHEMISTRY METHOD 12/05/2024 1:25 AM [facility] Anion Gap 5 3 - 11 LAB CHEMISTRY METHOD 12/05/2024 1:25 AM [facility] Glucose 80 70 - 100 mg/dL LAB CHEMISTRY METHOD 12/05/2024 1:25 AM [facility] BUN 8 5 - 25 mg/dL LAB CHEMISTRY METHOD 12/05/2024 1:25 AM [facility] Creatinine 0.69(L) 0.70 - 1.30 mg/dL LAB CHEMISTRY METHOD 12/05/2024 1:25 AM [facility] eGFR 107 >=60 mL/min/1. 73m2 LAB CHEMISTRY METHOD 12/05/2024 1:25 AM [facility] Comment:Calculation based on the Chronic Kidney Disease Epidemiology Collaboration (CKD-EPI) equation refit without adjustment for race. BUN/Creatinine Ratio 11.6 LAB CHEMISTRY METHOD 12/05/2024 1:25 AM [facility] Calcium 8.6 8.5 - 10.5 mg/dL LAB CHEMISTRY METHOD 12/05/2024 1:25 AM [facility] AST (SGOT) 13 10 - 42 unit/L LAB CHEMISTRY METHOD 12/05/2024 1:25 AM EDT [facility] ALT (SGPT) 16 10 - 60 unit/L LAB CHEMISTRY METHOD 12/05/2024 1:25 AM EDT [facility] Alkaline Phosphatase 67 42 - 121 unit/L LAB CHEMISTRY METHOD 12/05/2024 1:25 AM EDT [facility] Total Protein 6.3 6.0 - 8.0 g/dL LAB CHEMISTRY METHOD 12/05/2024 1:25 AM EDT [facility] Albumin 3.3 3.2 - 5.0 g/dL LAB CHEMISTRY METHOD 12/05/2024 1:25 AM EDT [facility] Total Bilirubin 0.4 0.0 - 1.4 mg/dL LAB CHEMISTRY METHOD 12/05/2024 1:25 AM EDT [facility] Blood Venous blood specimen / Unknown Venipuncture / Unknown 12/05/2024 12:00 AM EDT 12/05/2024 12:45 AM EDT us Dalila Alberto MD LAB BLOOD ORDERABLES Fin al Result [facility] [address] [place] [address], from Last 3 Months Insurance [id number] [place] [address] MEDICARE MEDICAID - [place] Care Teams Shredding Specialist Relationship Specialty Start Date End Date Dk Rodriguez MD [address] [place] [address] [address] [place] PCP - General Internal Medicine 07/16/24
== END 2025-02-26 20:09 | disposition left against medical advice (07) ==
PROVIDERS: Emergency Provider Emergency Medicine; PCP Internal Medicine
DX: F41.8 Other specified anxiety disorders (principal)
CPT/HCPCS: 99281; 99282

== ENCOUNTER 2025-02-27 20:03 | Emergency (ER) | payer MEDICARE, MEDICAID, SELFPAY ==
[2025-02-27 20:07] VITALS: BP 124/73; PULSE 112; RESP 18; TEMP 36.6; O2SAT 96; BMI 20.8
--- OUTSIDE RECORDS SUMMARY | 2025-02-27 22:17 | XMS_ITS | Encounter Summary ---
Author Organization [facility] Address [address] [place] [address] Care Team Providers Care Engraver Hand Hard Metals Name Role Phone Ref, Has No Pcp Or Primary Care Provider Unavail able Encounter Details Date Type Department Care Team (Late st Contact Info) Description 01/04/2024 Community Orders [facility] EpicCare Link [address] [place] [address] Bethany Lozano, CYBERATHLETE [address] [place] [address] Social History Tobacco Use Types Packs/Day Years [...] on filedocumented in this encounter Care Teams Engraver Hand Hard Metals Relationship Specialty Start Date End Date Ref, Has No Pcp Or DO NOT EDIT THIS RECORD VIA PROVIDER ON THE FLY PCP - General Surfacer Operator 12/30/23 documented as of this encounter
--- OUTSIDE RECORDS SUMMARY | 2025-02-27 22:17 | XMS_ITS | Clinical Summary ---
Author Organization [facility] Address [address] [place] [address] Care Team Providers Care Clinical Administrator Name Role Phone Ref, Has No Pcp [...] Plan (01/03/2024 2:32 PM EDT): Presents from [facility] in the setting of urinary [...] Plan (01/03/2024 10:49 AM EDT): Presented from [facility] with hyponatremia (initially 123). Also had [...] Plan (01/02/2024 11:43 AM EDT): Presents from [facility] in the setting of urinary retention and outpatient labs showing sodium 123. On arrival to ED patient had Cshafer placed. BMP showed sodium 122 with normal [...] Seroquel 25 mg twice daily Presents from [facility]'s forensic unit with documented history of schizophrenia. 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 Continue home aripiprazole 20mg daily Continue home carbamazepine 500 mg twice daily Continue home Zyprexa 15 mg nightly Continue home Seroquel 25 mg twice daily Consider psychiatry consult if concern that antipsychotic medications are causing SIADH Patient presents from [facility], requires constant observation BPH (benign prostatic hyperplasia) 12/30/2023 Assessment & Plan (01/03/2024 2:33 PM EDT): Paperwork from the [facility] indicates history of BPH with prior need for intermittent catheterization requiring urology evaluation in the past, records not available in our system). Per documentation from [facility] patient has seen urology at [facility] in [place]. He was started on Flomax outpatient. In [...] available in our system). Per documentation from [facility] patient has seen urology at [facility] in [place]. He was started on Flomax outpatient. In [...] 2040 Insurance [facility] MEDICARE [facility] Advance Directives * Full Code (Latest Code Status on File) Date Activated Date Inactivated Comments 12/30/2023 7:22 PM 01/03/2024 8:48 PM * Presumed Full Code Date Activated Date Inactivated Comments 12/30/2023 7:00 PM 12/30/2023 7:22 PM Care Teams Clinical Administrator Relationship Specialty Start Date End Date Ref, Has No Pcp Or DO NOT EDIT THIS RECORD VIA PROVIDER ON THE FLY PCP - General Volunteer Specialist 12/30/23
== END 2025-02-27 22:30 | disposition left against medical advice (07) ==
PROVIDERS: Emergency Provider Emergency Medicine
DX: F32.3 Major depressive disorder, single episode, severe with psychotic features (principal); R45.851 Suicidal ideations
CPT/HCPCS: 99281; 99283

== ENCOUNTER 2025-02-28 07:34 | Emergency (ER) | payer MEDICARE, MEDICAID, SELFPAY ==
[2025-02-28 07:37] VITALS: BP 129/69; PULSE 101; RESP 18; TEMP 36.3; O2SAT 96; BMI 20.4
--- OUTSIDE RECORDS SUMMARY | 2025-02-28 07:54 | XMS_ITS | Encounter Summary ---
Author Organization [facility] Address [address] [place] [address] Care Team Providers Care Band Salvager Name Role Phone Ref, Has No Pcp Or Primary Care Provider Unavail able Encounter Details Date Type Department Care Team (Late st Contact Info) Description 01/04/2024 Community Orders [facility] EpicCare Link [address] [place] [address] Bethany Lozano, JUICE SCALEMAN [address] [place] [address] Social History Tobacco Use Types Packs/Day Years [...] on filedocumented in this encounter Care Teams Band Salvager Relationship Specialty Start Date End Date Ref, Has No Pcp Or DO NOT EDIT THIS RECORD VIA PROVIDER ON THE FLY PCP - General Advertising Sales Associate 12/30/23 documented as of this encounter
--- OUTSIDE RECORDS SUMMARY | 2025-02-28 07:54 | XMS_ITS | Clinical Summary ---
Author Organization [facility] Address [address] [place] [address] Care Team Providers Care Distribution Systems Serviceperson Name Role Phone Ref, Has No Pcp [...] Plan (01/03/2024 2:32 PM EDT): Presents from [facility] in the setting of urinary retention and [...] Plan (01/03/2024 10:49 AM EDT): Presented from [facility] with hyponatremia (initially 123). Also had dizziness/lightheadedness, [...] Plan (01/02/2024 11:43 AM EDT): Presents from [facility] in the setting of urinary retention and [...] Seroquel 25 mg twice daily Presents from [facility]'s forensic unit with documented history of schizophrenia. 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 Continue home aripiprazole 20mg daily Continue home carbamazepine 500 mg twice daily Continue home Zyprexa 15 mg nightly Continue home Seroquel 25 mg twice daily Consider psychiatry consult if concern that antipsychotic medications are causing SIADH Patient presents from [facility], requires constant observation BPH (benign prostatic hyperplasia) 12/30/2023 Assessment & Plan (01/03/2024 2:33 PM EDT): Paperwork from the [facility] indicates history of BPH with prior need for intermittent catheterization requiring urology evaluation in the past, records not available in our system). Per documentation from [facility] patient has seen urology at [facility] in [place]. He was started on Flomax outpatient. In [...] (01/02/2024 11:43 AM EDT): Paperwork from the [facility] indicates history of BPH with prior need for intermittent catheterization requiring urology evaluation in the past, records not available in our system). Per documentation from [facility] patient has seen urology at [facility] in [place]. He was started on Flomax outpatient. In [...] (1 - 1-dose 75+ series) 2040 Insurance * Guarantor: Balbir Lyon Account Type Relation to Patient Date of Phone Billing Address Personal/Family Self 1965 [address] [facility] [place] [address] [facility] MEDICARE [facility] Advance Directives * Full Code (Latest Code Status on File) Date Activated Date Inactivated Comments 12/30/2023 7:22 PM 01/03/2024 8:48 PM * Presumed Full Code Date Activated Date Inactivated Comments 12/30/2023 7:00 PM 12/30/2023 7:22 PM Care Teams Distribution Systems Serviceperson Relationship Specialty Start Date End Date Ref, Has No Pcp Or DO NOT EDIT THIS RECORD VIA PROVIDER ON THE FLY PCP - General Apparel Rental Clerk 12/30/23
--- OUTSIDE RECORDS SUMMARY | 2025-02-28 07:54 | XMS_ITS | Clinical Summary ---
Author Organization [facility] Address [address] [place] [address] Phone Care Team Providers Care Cocoa Roaster Name Role Phone Dk Rodriguez MD Primary Care Provider [phone] Allergies No known active allergies Medications tamsulosin (FLOMAX) 0.4 mg 24 hr capsule Take 1 capsule (0.4 mg total) by mouth 1 (one) time each day for 7 days. Capsules should be taken 30 minutes following the same meal each day. 7 capsule 02/23/20 Encounters Date Type Department Care Team Description 02/15/2025 9:21 PM EDT - 02/15/2025 9:45 PM EDT [facility] Emergency [address] [place] [phone] Encounter for Santos catheter removal (Primary Dx) Discharge Disposition: Home or Self Care 02/14/2025 8:31 PM EDT - 02/14/2025 9:27 PM EDT Emergency [facility] Emergency [address] [place] [phone] Urinary retention (Primary Dx) Discharge Disposition: Home or Self Care 02/10/2025 9:24 PM EDT - 02/10/2025 11:43 PM EDT [facility] Emergency [address] [place] [address] [phone] Discharge Disposition: Home or Self Care 02/01/2025 8:58 PM EDT - 02/01/2025 10:49 PM EDT [facility] Emergency [address] [place] [address] [place] [phone] Discharge Disposition: Home or Self Care 01/30/2025 8:57 PM EDT - 01/31/2025 12:33 AM EDT [facility] Emergency [address] [place] [phone] Discharge Disposition: Home or Self Care 01/28/2025 9:14 PM EDT - 01/28/2025 11:28 PM EDT [facility] Emergency [address] [place] [phone] Discharge Disposition: Home or Self Care 01/14/2025 8:53 PM EDT - 01/15/2025 12:26 AM EDT [facility] Emergency [address] [place] [phone] Discharge Disposition: Home or Self Care 01/12/2025 8:45 PM EDT - 01/12/2025 11:57 PM EDT [facility] Emergency [address] [place] [phone] Dilcia Carl MD Discharge Disposition: Left Against Medical Advice 12/04/2024 11:34 PM EDT - 12/05/2024 1:06 AM EDT [facility] Emergency [address] [place] [phone] Discharge Disposition: Home or Self Care 12/02/2024 10:00 PM EDT - 12/03/2024 12:28 AM EDT [facility] Emergency [address] [place] [phone] Discharge Disposition: Home or Self Care 11/27/2024 10:17 PM EDT - 11/28/2024 8:54 AM EDT [facility] Emergency [address] [place] [phone] Discharge Disposition: Home or Self Care from Last 3 Months Medical History Medical History Date Comments Bipolar 1 disorder ([facility] V24, [facility] V28) Mood disorder ([facility] V24) Hyperactivity of bladder Social History Tobacco [...] LAB HEMETOLOGY METHOD 12/05/2024 12:52 AM EDT [facility] RBC 4.00(L) 4.50 - 5.50 M/mcL LAB HEMETOLOGY METHOD 12/05/2024 12:52 AM EDT [facility] Hemoglobin 12.7(L) 13.5 - 17.5 g/dL LAB HEMETOLOGY METHOD 12/05/2024 12:52 AM EDT [facility] Hematocrit 37.3(L) 42.0 [...] LAB HEMETOLOGY METHOD 12/05/2024 12:52 AM EDT [facility] Immature Granulocytes Relative 0.3 % LAB HEMETOLOGY METHOD 12/05/2024 12:52 AM EDT [facility] Neutrophils Absolute 4.19 1.50 - 7.00 K/mcL LAB HEMETOLOGY METHOD 12/05/2024 12:52 AM EDT [facility] Lymphocytes Absolute 2.04 1.00 - 5.00 K/mcL LAB HEMETOLOGY METHOD 12/05/2024 12:52 AM EDT [facility] Monocytes Absolute 0.82 0.20 - 1.00 K/mcL LAB HEMETOLOGY METHOD 12/05/2024 12:52 AM EDT [facility] Eosinophils Absolute 0.24 0.00 - 0.50 K/mcL LAB HEMETOLOGY METHOD 12/05/2024 12:52 AM EDT [facility] Basophils Absolute 0.06 0.00 - 0.20 K/mcL LAB HEMETOLOGY METHOD 12/05/2024 12:52 AM EDT [facility] Immature Granulocytes Absolute 0.02 0.00 - 0.03 K/mcL LAB HEMETOLOGY METHOD 12/05/2024 12:52 AM T [facility] Blood Venous blood specimen / Unknown Venipuncture / Unknown 12/05/2024 12:00 AM EDT 12/05/2024 12:45 AM EDT us Dalila Alberto MD LAB BLOOD ORDERABLES Fin al Result [facility] [address] [place] [address], * (ABNORMAL) Comprehensive metabolic panel (12/05/2024 12:00 AM EDT) [facility] Sodium 139 133 - 145 mmol/L LAB [...] LAB CHEMISTRY METHOD 12/05/2024 1:25 AM EDT [facility] Total Protein 6.3 6.0 - 8.0 g/dL LAB CHEMISTRY METHOD 12/05/2024 1:25 AM EDT [facility] Albumin 3.3 3.2 - 5.0 g/dL LAB CHEMISTRY METHOD 12/05/2024 1:25 AM EDT [facility] Total Bilirubin 0.4 0.0 - 1.4 mg/dL LAB CHEMISTRY METHOD 12/05/2024 1:25 AM EDT [facility] Blood Venous blood specimen / Unknown Venipuncture / Unknown 12/05/2024 12:00 AM EDT 12/05/2024 12:45 AM EDT us Dalila Alberto MD LAB BLOOD ORDERABLES Fin al Result [facility] [address] [place] [address], [place] [phone] from Last 3 Months Insurance MEDICARE MEDICAID - [place] Care Teams Cocoa Roaster Relationship Specialty Start Date End Date Dk Rodriguez MD [address] [place] [address] [address] [place] PCP - General Internal Medicine 07/16/24
--- NOTE | 2025-02-28 08:14 | ED.GENADULT ---
HPI - General Adult General Chief complaint: General Medical Stated complaint: gen med Time Seen by Provider: 02/28/25 08:04 Source: patient, RN notes reviewed and old records reviewed Mode of arrival: ambulatory History of Present Illness ED Provider: Yvette MCKAY narrative: Patient is a 59-year-old male with history of anxiety, schizoaffective d/o, Bipolar type, smoking presenting to the emergency department stating that he had to get out of his usp because he was being disrespected by other members of the usp. This caused him to become agitated and he chose to leave. He denies any suicidal or homicidal ideation, auditory or visual hallucinations. Denies any current physical complaints. States that since he has arrived to the emergency department he has calm down and feels ready to return to the usp. Patient is seen here frequently for same complaint. MD complaint: Agitation Related Data Home Medications ?Medication ?Instructions ?Recorded ?Confirmed aripiprazole 30 mg tablet 30 mg PO DAILY 01/31/25 02/25/25 lorazepam 1 mg tablet 1 mg PO DAILY PRN Anxiety 01/31/25 02/25/25 quetiapine 100 mg tablet 100 mg PO BEDTIME 01/31/25 02/25/25 quetiapine 50 mg tablet 50 mg PO BID 01/31/25 02/25/25 olanzapine 10 mg tablet 10 mg PO TID 02/03/25 02/25/25 Previous Rx's ?Medication ?Instructions ?Recorded atorvastatin 20 mg tablet 20 mg PO QPM 90 days #90 tabs 01/10/25 tamsulosin 0.4 mg capsule 0.4 mg PO QAM 90 days #90 caps 01/10/25 Allergies Allergy/AdvReac Type Severity Reaction Status Date / Time No Known Allergies (NO KNOWN Allergy Unknown UNKNOWN Verified 02/28/25 07:40 ALLERGIES) Review of Systems Review of Systems: as per hpi Yes all other systems are reviewed and are negative Constitutional: Constitutional: Reports as per HPI [facility] Past Medical History Medical History Acute anxiety Smoker GERD without esophagitis Tubular adenoma of colon (~2018) Personal history of nicotine dependence Constipation Back pain Schizoaffective disorder, bipolar type Anxiety Benign prostatic hyperplasia with lower urinary tract symptoms Pure hypercholesterolemia Thought disorder Bipolar 1 disorder Mood disorder Surgical History History of colonoscopy (~04/2019) History of prostate surgery (~04/2019) History of open reduction and internal fixation (ORIF) procedure (~08/2018) Family History Family History Father Lung cancer BPH (benign prostatic hyperplasia) Mother Dementia Brother Myocardial infarction Other Mental health problem Substance abuse Social History Social History Household Members: Other Housing: Other Housing Other:: Senior Living Do you presently have visiting nurse or other home services: No Alcohol intake: never Patient Tobacco Use Status: Current everyday Tobacco user Tobacco use type: Cigarette Cigarette Packs Per Day: 0.5 Cigarettes Per Day: 10.0 Years Smoked: 10 e-Cigarette/Vaping Use: Never Used Second Hand Smoke Exposure: Yes Advance Directives: No Advance Directives Information Provided: Yes service: No Current occupational status: employed and disabled Current occupation: [employer] Sexual orientation: Straight/Heterosexual Cognitive needs: No Hearing needs: No Vision needs: Yes Physical Exam ED Vital Signs: Vital Signs - 24 hr 02/28/25 07:37 Temperature 97.3 F Pulse Rate 101 H Respiratory Rate 18 Blood Pressure 129/69 Pulse Oximetry 96 Oxygen Delivery Method Room Air BMI result Body Mass Index 20.4 Vital signs have been reviewed and appear to be correct. Blood pressure normal. Heart rate normal. Respiratory rate normal. Temperature normal. Oxygen saturation normal. Const General: cooperative, healthy appearing and no acute distress Orientation/consciousness: oriented to person, oriented to place, oriented to time and patient oriented x3 HENMT Head: Yes normocephalic and Yes atraumatic Ears: external ears normal General nose exam: Normal external nose present Face and sinus: Yes face symmetric Mouth: oropharynx normal and moist mucous membranes Throat: Yes uvula midline Eyes Pupils: Equal, round and reactive pupils present Neck Neck: Yes normal visual inspection and Yes supple Resp Effort & Inspection: normal respiratory effort and able to speak in complete sentences Auscultation: clear to auscultation bilaterally Cardio Rate: regular rate Rhythm: regular rhythm Heart sounds: S1 normal heart sound present and S2 normal heart sound present GI Palpation (GI): Soft to palpation and nontender Auscultation: normoactive bowel sounds General: Yes no CVA tenderness Back/Spine/Pelvis Back: no CVA tenderness Skin General skin exam: elasticity normal and turgor normal Neuro General: oriented to person, oriented to place, oriented to time, patient oriented x3, moves all extremities, no focal motor deficits and CN's II-XI intact bilaterally Cranial nerves: Yes Equal, round and reactive pupils present Cognition (Neuro): normal cognition Extrem General: Yes full ROM, Yes no pedal edema and Yes no calf tenderness Psych Appearance: grossly normal Mental Status: mental status grossly normal Speech and movement: Normal speech and movement present Affect: normal affect Attitude: cooperative Thought process: Normal thought process present Thought content: suicidality, no homicidality, no delusions, no hallucinations and No Depressive thoughts present Insight: Fair insight present (Psych) Judgement: Fair judgement present (Psych) Medical Decision Making Medical Decision Making MDM Narrative: Patient is a 59-year-old male with history of anxiety, schizoaffective d/o, Bipolar type, smoking presenting to the emergency department stating that he had to get out of his usp because he was being disrespected by other members of the usp. On exam patient is awake, A+Ox3, VS WNL, afebrile, normal neurological exam without focal deficits, physical exam findings as above. Given reported symptoms and physical exam findings, initial differential includes but is not limited to agitation, behavioral disturbance. Patient has multiple recent visits for similar complaint. Patient states that he has calmed down since arriving to the emergency department. Patient was offered the opportunity to speak with a member of the care team which he declined. He denies any current physical complaints. When asked if he feels safe to return to the usp, patient states he is agreeable to this. Return precautions discussed including suicidal or homicidal ideation or auditory or visual hallucinations. Patient verbalized understanding of and agreement with plan. Differential Diagnosis Differential Diagnoses: The differential diagnosis associated with the presentation includes As per MDM Admission/Observation Consideration of admission/observation: Escalation of care including admission/observation considered Patient would have been admitted to the hospital and transferred to appropriate facility had their clinical presentation warranted hospital admission. External Record Review External record reviewed: Inpatient record, Office record and Outpatient record Discharge Plan Discharge Clinical Impression: Mental and behavioral problem in adult Patient Disposition: Home, Self-Care Additional Instructions: You were evaluated in the emergency department today after becoming agitated at your usp. You were offered the opportunity to speak with the CARE team which you declined. Return to the emergency department for new or concerning symptoms. Prescriptions: No Action quetiapine 100 mg tablet 100 mg PO BEDTIME lorazepam 1 mg tablet 1 mg PO DAILY PRN (Reason: Anxiety) aripiprazole 30 mg tablet 30 mg PO DAILY quetiapine 50 mg tablet 50 mg PO BID olanzapine 10 mg tablet 10 mg PO TID tamsulosin 0.4 mg capsule 0.4 mg PO QAM 90 Days Qty: 90 0RF atorvastatin 20 mg tablet 20 mg PO QPM 90 Days Qty: 90 3RF Stand Alone Forms: Against Medical Advice Print Language: Czech
[2025-02-28 08:58] VITALS: BP 156/80; PULSE 65; RESP 12; TEMP 36.6; O2SAT 95
== END 2025-02-28 09:00 | disposition home or self-care (01) ==
PROVIDERS: Emergency Provider Emergency Medicine Emergency Medical Services; PCP Internal Medicine
DX: R45.1 Restlessness and agitation (principal); F25.9 Schizoaffective disorder, unspecified; F17.210 Nicotine dependence, cigarettes, uncomplicated; Z79.899 Other long term (current) drug therapy
CPT/HCPCS: 99282

== ENCOUNTER 2025-02-28 14:26 | Emergency (ER) | payer MEDICARE, MEDICAID, SELFPAY ==
[2025-02-28 14:47] VITALS: BP 129/60; PULSE 106; RESP 18; TEMP 36.8; O2SAT 98; BMI 20.4
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
--- OUTSIDE RECORDS SUMMARY | 2025-02-28 17:31 | XMS_ITS | Clinical Summary ---
Author Organization [facility] Address [address] [place] [address] Phone Care Team Providers Care Fitter Tacker Name Role Phone Dk Rodriguez MD Primary [...] PM EDT - 02/15/2025 9:45 PM EDT [facility] [address] [place] [phone] Encounter for Santos catheter removal (Primary Dx) Discharge Disposition: Home or Self Care 02/14/2025 8:31 PM EDT - 02/14/2025 9:27 PM EDT Emergency [facility] Emergency [address] [place] [address] [phone] Urinary retention (Primary Dx) Discharge Disposition: Home or Self Care 02/10/2025 9:24 PM EDT - 02/10/2025 11:43 PM EDT [facility] [address] [place] [address] [phone] Discharge Disposition: Home or Self Care 02/01/2025 8:58 PM EDT - 02/01/2025 10:49 PM EDT [facility] [address] [place] [address] [place] [phone] Discharge Disposition: Home or Self Care 01/30/2025 8:57 PM EDT - 01/31/2025 12:33 AM EDT [facility] [address] [place] [phone] Discharge Disposition: Home or Self Care 01/28/2025 9:14 PM EDT - 01/28/2025 11:28 PM EDT [facility] [address] [place] [phone] Discharge Disposition: Home or Self Care 01/14/2025 8:53 PM EDT - 01/15/2025 12:26 AM EDT [facility] [address] [place] [phone] Discharge Disposition: Home or Self Care 01/12/2025 8:45 PM EDT - 01/12/2025 11:57 PM EDT [facility] [address] [place] [phone] Dilcia Carl MD Discharge Disposition: Left Against Medical Advice 12/04/2024 11:34 PM EDT - 12/05/2024 1:06 AM EDT [facility] [address] [place] [phone] Discharge Disposition: Home or Self Care 12/02/2024 10:00 PM EDT - 12/03/2024 12:28 AM EDT [facility] [address] [place] [phone] Discharge Disposition: Home or Self Care 11/27/2024 10:17 PM EDT - 11/28/2024 8:54 AM EDT [facility] [address] [place] [phone] Discharge Disposition: Home or Self Care from Last 3 Months Medical History Medical History Date Comments Bipolar 1 disorder (CMS/[facility] V24, CMS/[facility] V28) Mood disorder ([facility] V24) Hyperactivity of bladder Social History [...] LAB HEMETOLOGY METHOD 12/05/2024 12:52 AM EDT [facility] RBC 4.00(L) 4.50 - 5.50 M/mcL LAB HEMETOLOGY METHOD 12/05/2024 12:52 AM EDT [facility] Hemoglobin 12.7(L) 13.5 - 17.5 g/dL LAB HEMETOLOGY METHOD 12/05/2024 12:52 AM EDT [facility] Hematocrit 37.3(L) 42.0 - 54.0 [...] 12/05/2024 12:52 AM [facility] Eosinophils Relative 3.3 % LAB HEMETOLOGY METHOD 12/05/2024 12:52 AM [facility] Basophils Relative 0.8 % LAB HEMETOLOGY METHOD 12/05/2024 12:52 AM EDT [facility] Immature Granulocytes Relative 0.3 % LAB HEMETOLOGY METHOD 12/05/2024 12:52 AM EDT [facility] Neutrophils Absolute 4.19 1.50 - 7.00 K/mcL LAB HEMETOLOGY METHOD 12/05/2024 12:52 AM EDT [facility] Lymphocytes Absolute 2.04 1.00 - 5.00 K/mcL LAB HEMETOLOGY METHOD 12/05/2024 12:52 AM EDT [facility] Monocytes Absolute 0.82 0.20 - 1.00 K/mcL LAB HEMETOLOGY METHOD 12/05/2024 12:52 AM EDT [facility] Eosinophils Absolute 0.24 0.00 - 0.50 K/mcL LAB HEMETOLOGY METHOD 12/05/2024 12:52 AM EDT [facility] Basophils Absolute 0.06 0.00 - 0.20 K/mcL LAB HEMETOLOGY METHOD 12/05/2024 12:52 AM EDT [facility] Immature Granulocytes Absolute 0.02 0.00 - 0.03 K/mcL LAB HEMETOLOGY METHOD 12/05/2024 12:52 AM T [facility] Blood Venous blood specimen / Unknown Venipuncture / Unknown 12/05/2024 12:00 AM EDT 12/05/2024 12:45 AM EDT us Dalila Alberto MD LAB BLOOD ORDERABLES Fin al Result [facility] [address] [place] [address], * (ABNORMAL) Comprehensive metabolic panel (12/05/2024 12:00 AM EDT) [facility] Sodium 139 133 - 145 mmol/L [...] 12/05/2024 1:25 AM [facility] Alkaline Phosphatase 67 42 - 121 unit/L LAB CHEMISTRY METHOD 12/05/2024 1:25 AM EDT [facility] Total Protein 6.3 6.0 - 8.0 g/dL LAB CHEMISTRY METHOD 12/05/2024 1:25 AM EDT [facility] Albumin 3.3 3.2 - 5.0 g/dL LAB CHEMISTRY METHOD 12/05/2024 1:25 AM EDT [facility] Total Bilirubin 0.4 0.0 - 1.4 mg/dL LAB CHEMISTRY METHOD 12/05/2024 1:25 AM EDT [facility] Blood Venous blood specimen / Unknown Venipuncture / Unknown 12/05/2024 12:00 AM EDT 12/05/2024 12:45 AM EDT us Dalila Alberto MD LAB BLOOD ORDERABLES Fin al Result [facility]) [facility] [address] [place] [address], [place] [phone] from Last 3 Months Insurance MEDICARE MEDICAID - [place] Care Teams Fitter Tacker Relationship Specialty Start Date End Date Dk Rodriguez MD [address] [place] [address] Jackie [address] Bel[address] MD PCP - General Internal Medicine 07/16/24
--- OUTSIDE RECORDS SUMMARY | 2025-02-28 17:31 | XMS_ITS | Encounter Summary ---
Author Organization [facility] Address [address] [place] [address] Care Team Providers Care Commercial Loan Processor Name Role Phone Ref, Has No Pcp Or Primary Care Provider Unavail able Encounter Details Date Type Department Care Team (Late st Contact Info) Description 01/04/2024 Community Orders [facility] Epic[facility] Link [address] [place] [address] Bethany Lozano, FILING WRITER [address] [place] [address] Social History Tobacco Use Types Packs/Day Years [...] on filedocumented in this encounter Care Teams Commercial Loan Processor Relationship Specialty Start Date End Date Ref, Has No Pcp Or DO NOT EDIT THIS RECORD VIA PROVIDER ON THE FLY PCP - General Commissioned Defence [employer] Officer 12/30/23 documented as of this encounter
--- OUTSIDE RECORDS SUMMARY | 2025-02-28 17:31 | XMS_ITS | Clinical Summary ---
Author Organization [facility] Address [address] [place] [address] Care Team Providers Care Diamond Saw Operator Name Role Phone Ref, Has No [...] Plan (01/03/2024 2:32 PM EDT): Presents from [facility] in the setting of urinary retention [...] Plan (01/03/2024 10:49 AM EDT): Presented from [facility] with hyponatremia (initially 123). Also had dizziness/lightheadedness, [...] Plan (01/02/2024 11:43 AM EDT): Presents from [facility] in the setting of urinary retention [...] Seroquel 25 mg twice daily Presents from [facility]'s forensic unit with documented history of schizophrenia. Continue home aripiprazole 20mg daily Continue home carbamazepine 500 mg twice daily Continue home Zyprexa 15 mg nightly Continue home Seroquel 25 mg twice daily Consider psychiatry consult if concern that antipsychotic medications are causing SIADH Patient presents from [facility], requires constant observation Assessment & Plan (01/02/2024 11:43 AM EDT): Home medications: aripiprazole 20 mg daily, carbamazepine 500 mg twice daily, Zyprexa 15 mg nightly, Seroquel 25 mg twice daily Presents from [facility]'s forensic unit with documented history of schizophrenia. Continue home aripiprazole 20mg daily Continue home carbamazepine 500 mg twice daily Continue home Zyprexa 15 mg nightly Continue home Seroquel 25 mg twice daily Consider psychiatry consult if concern that antipsychotic medications are causing SIADH Patient presents from [facility], requires constant observation BPH (benign prostatic hyperplasia) 12/30/2023 Assessment & Plan (01/03/2024 2:33 PM EDT): Paperwork from the [facility] indicates history of BPH with prior need for intermittent catheterization requiring urology evaluation in the past, records not available in our system). Per documentation from [facility] patient has seen urology at [facility] in [place]. He was started on Flomax outpatient. In [...] (01/02/2024 11:43 AM EDT): Paperwork from the [facility] indicates history of BPH with prior need for intermittent catheterization requiring urology evaluation in the past, records not available in our system). Per documentation from [facility] patient has seen urology at [facility] in [place]. He was started on Flomax outpatient. In [...] (1 - 1-dose 75+ series) 2040 Insurance [facility] MEDICARE [facility] Advance Directives * Full Code (Latest Code Status on File) Date Activated Date Inactivated Comments 12/30/2023 7:22 PM 01/03/2024 8:48 PM * Presumed Full Code Date Activated Date Inactivated Comments 12/30/2023 7:00 PM 12/30/2023 7:22 PM Care Teams Diamond Saw Operator Relationship Specialty Start Date End Date Ref, Has No Pcp Or DO NOT EDIT THIS RECORD VIA PROVIDER ON THE FLY PCP - General Metabolic Specialist 12/30/23
[2025-02-28 17:33] VITALS: BP 129/60; PULSE 106; RESP 18; TEMP 36.8; O2SAT 98
== END 2025-02-28 17:33 | disposition home or self-care (01) ==
PROVIDERS: Emergency Provider Emergency Medicine; PCP Internal Medicine
DX: S09.90XA Unspecified injury of head, initial encounter (principal); Z76.5 Malingerer [conscious simulation]; X58.XXXA Exposure to other specified factors, initial encounter; Y93.9 Activity, unspecified; Y92.9 Unspecified place or not applicable; Y99.8 Other external cause status
CPT/HCPCS: 99282

== ENCOUNTER 2025-03-01 17:47 | Emergency (ER) | payer MEDICARE, MEDICAID, SELFPAY ==
[2025-03-01 17:55] VITALS: BP 120/77; PULSE 97; RESP 16; TEMP 36.3; O2SAT 99; BMI 25.7
--- NOTE | 2025-03-01 17:59 | ED.PSYCH ---
HPI - Psych General Chief Complaint: General Medical Stated Complaint: [place] [facility] issues[facility]SI Time Seen by Provider: 03/01/25 20:21 History of Present Illness HPI Narrative: 59-year-old male with a history of schizoaffective disorder, bipolar type, anxiety, mood disorder, BPH who require self catheterization, presents with agitation. Patient states he is having issues at his [place] [facility], he became agitated with staff today. Denies SI or HI. Related Data Home Medications ?Medication ?Instructions ?Recorded ?Confirmed aripiprazole 30 mg tablet 30 mg PO DAILY 01/31/25 02/25/25 lorazepam 1 mg tablet 1 mg PO DAILY PRN Anxiety 01/31/25 02/25/25 quetiapine 100 mg tablet 100 mg PO BEDTIME 01/31/25 02/25/25 quetiapine 50 mg tablet 50 mg PO BID 01/31/25 02/25/25 olanzapine 10 mg tablet 10 mg PO TID 02/03/25 02/25/25 Previous Rx's ?Medication ?Instructions ?Recorded atorvastatin 20 mg tablet 20 mg PO QPM 90 days #90 tabs 01/10/25 tamsulosin 0.4 mg capsule 0.4 mg PO QAM 90 days #90 caps 01/10/25 Allergies Allergy/AdvReac Type Severity Reaction Status Date / Time No Known Allergies (NO KNOWN Allergy Unknown UNKNOWN Verified 03/01/25 17:57 ALLERGIES) Review of Systems Review of Systems: Yes all other systems are reviewed and are negative Constitutional: Constitutional: Denies fatigue and Denies fever(s) Cardiovascular: Cardiovascular: Denies chest pain and Denies dyspnea Respiratory: Respiratory: Denies dyspnea Gastrointestinal: Gastrointestinal: Denies abdominal pain, Denies nausea and Denies vomiting Endocrine: Endocrine: Denies fatigue [facility] Past Medical History Attestation statement: The following information was validated with the patient. Medical History Acute anxiety Smoker GERD without esophagitis Tubular adenoma of colon (~2018) Personal history of nicotine dependence Constipation Back pain Schizoaffective disorder, bipolar type Anxiety Benign prostatic hyperplasia with lower urinary tract symptoms Pure hypercholesterolemia Thought disorder Bipolar 1 disorder Mood disorder Surgical History History of colonoscopy (~04/2019) History of prostate surgery (~04/2019) History of open reduction and internal fixation (ORIF) procedure (~08/2018) Family History Family History Father Lung cancer BPH (benign prostatic hyperplasia) Mother Dementia Brother Myocardial infarction Other Mental health problem Substance abuse Social History Social History Household Members: Other Housing: Other Housing Other:: [facility] Do you presently have visiting nurse or other home services: No Alcohol intake: never Patient Tobacco Use Status: Current everyday Tobacco user Tobacco use type: Cigarette Cigarette Packs Per Day: 0.5 Cigarettes Per Day: 10.0 Years Smoked: 10 e-Cigarette/Vaping Use: Never Used Second Hand Smoke Exposure: Yes Advance Directives: No Advance Directives Information Provided: No service: No Current occupational status: employed and disabled Current occupation: [employer] Sexual orientation: Straight/Heterosexual Cognitive needs: No Hearing needs: No Vision needs: Yes Physical Exam Vital Signs: Vital Signs: Last Vital Signs Temp 97.3 F 03/01/25 17:55 Pulse 97 03/01/25 17:55 Resp 16 03/01/25 17:55 BP 120/77 03/01/25 17:55 Pulse Ox 99 03/01/25 17:55 O2 Del Method Room Air 03/01/25 17:55 BMI result Body Mass Index 25.7 Const: Other: Alert Orientation/consciousness: patient oriented x3 Resp: Effort & Inspection: normal respiratory effort Cardio: Other: Normal peripheral perfusion Skin: Other: Warm dry no rash Neuro: General: patient oriented x3, gait normal, no focal motor deficits and CN's II-XI intact bilaterally Psych: Other: Cooperative Course Course Course Narrative: This is a rapid medical exam performed by Walter Crawford NP: Additional HPI, ROS, PE not included below will be deferred to primary provider. Patient is a 59y/o M pmhx anxiety, schizoaffective d/o, Bipolar type, smoking stating that he got into an argument with [facility] staff and was told to leave the home. Also stating that he does not have access to food/drink in the kitchen. Denies SI/HI. Presenting frequently with similar complaint. Plan: med clearance, CARE team eval Reevaluation(s) Reevaluation #1: Speaking with the valencia from the care team, the patient clearly does not meet inpatient level of care, for this behavioral outbursts. We will discharge back to his [place] [facility]. Time: 21:11 Medical Decision Making Medical Decision Making [facility] Narrative: 59-year-old male with a history of schizoaffective disorder, bipolar type, anxiety, mood disorder, BPH who require self catheterization, presents with agitation. Patient states he is having issues at his [facility] [facility], he became agitated with staff today. Denies SI or HI. Problem: Psychiatric illness History: Per patient I have considered the following differential diagnoses: SI, HI, decompensated psychiatric illness, drug/alcohol intoxication Plan: Screening labs including drug screen and serum ethanol are going to be obtained. The patient will be referred to the care team. I foresee him being sent back to his [place] [facility] with outpatient resources. I have independently reviewed the following tests: Labs: No leukocytosis, not anemic, no electrolyte abnormality, ethanol less than 10, drug screen pending Differential Diagnosis Differential Diagnoses: The differential diagnosis associated with the presentation includes See medical decision-making Admission/Observation Consideration of admission/observation: Escalation of care including admission/observation considered Not applicable Consult Healthcare Provider Management of the patient was discussed with: Behavioral Health Provider Lab Data [facility] Lab Attestation statement: I reviewed the patient's lab results. 03/01/25 18:50 03/01/25 18:50 Labs: Lab Results 03/01/25 Range/Units 18:50 WBC 5.1 (4.8-10.8) X10*3/uL RBC 4.13 L (4.60-5.80) X10*6/uL Hgb 13.4 L (14.0-18.0) g/dl Hct 37.6 L (42.0-52.0) % MCV 91.0 (80.0-98.0) fL MCH 32.4 (27.0-33.0) pg MCHC 35.6 (31.0-36.0) g/dl RDW 13.1 (11.0-16.0) % Plt Count 151 L D (160-400) X10*3/uL MPV 9.9 (9.4-12.4) fL Immature Gran % (Auto) 0.2 (0.0-0.4) % Neut % (Auto) 52.5 (45-73) % Lymph % (Auto) 31.7 (20-40) % Toole % (Auto) 12.6 H (2-11) % Eos % (Auto) 1.8 (0-4) % Baso % (Auto) 1.2 (0-2) % Lymph # (Auto) 1.6 (1.2-4.9) X10*3/uL Toole # (Auto) 0.7 (0.1-1.2) X10*3/uL Eos # (Auto) 0.1 (0.0-0.4) X10*3/uL Baso # (Auto) 0.1 (0.0-0.2) X10*3/uL Abs Immat Gran (auto) 0.01 (0.00-0.03) X10*3/uL Absolute Neuts (auto) 2.7 (2.0-8.3) x10*3/uL Absolute Nucleated RBC 0.000 (0.0-0.012) X10*3/uL Nucleated RBC % (auto) 0.0 (0.0-0.2) /100WBC Sodium 136 (135-145) mmol/L Potassium 3.8 (3.3-5.1) mmol/L Chloride 104 (96-108) mmol/L Carbon Dioxide 23 (22-29) mmol/L Anion Gap 13 (12-20) BUN 8 L (9-16) mg/dL Creatinine 0.77 (0.5-1.4) mg/dL Estim Creat Clear Calc 86.4 Estimated GFR > 60 Random Glucose 90 (60-115) mg/dL Calcium 9.0 (8.4-10.2) mg/dL Total Bilirubin 0.6 (0.0-1.0) mg/dL AST 24 (5-37) U/L ALT 17 (0-40) U/L Alkaline Phosphatase 76 (39-117) U/L Total Protein 6.8 (6.5-8.0) g/dL Albumin 4.1 (3.5-5.0) g/dL Ethyl Alcohol < 10 mg/dL Discharge Plan Discharge Clinical Impression: Agitation Patient Disposition: Home, Self-Care Additional Instructions: All of your screening labs were normal, you were seen by the care team. Continue to follow up with your outpatient mental health providers. Prescriptions: No Action quetiapine 100 mg tablet 100 mg PO BEDTIME lorazepam 1 mg tablet 1 mg PO DAILY PRN (Reason: Anxiety) aripiprazole 30 mg tablet 30 mg PO DAILY quetiapine 50 mg tablet 50 mg PO BID olanzapine 10 mg tablet 10 mg PO TID tamsulosin 0.4 mg capsule 0.4 mg PO QAM 90 Days Qty: 90 0RF atorvastatin 20 mg tablet 20 mg PO QPM 90 Days Qty: 90 3RF Print Language: Georgian
--- OUTSIDE RECORDS SUMMARY | 2025-03-01 18:30 | XMS_ITS | Encounter Summary ---
Author Organization [facility] Address [address] [place] [address] Care Team Providers Care Drawing Instructor Name Role Phone Ref, Has No Pcp Or Primary Care Provider Unavail able Encounter Details Date Type Department Care Team (Late st Contact Info) Description 01/04/2024 Community Orders [facility] EpicCare Link [address] [place] [address] Bethany Lozano, PEWTER FINISHER [address] [place] [address] Social History Tobacco Use Types Packs/Day Years [...] on filedocumented in this encounter Care Teams Drawing Instructor Relationship Specialty Start Date End Date Ref, Has No Pcp Or DO NOT EDIT THIS RECORD VIA PROVIDER ON THE FLY PCP - General Sausage Stringer 12/30/23 documented as of this encounter
--- OUTSIDE RECORDS SUMMARY | 2025-03-01 18:30 | XMS_ITS | Clinical Summary ---
Author Organization [facility] Address [address] [place] [address] Care Team Providers Care Prevention Coordinator Name Role Phone Ref, Has No Pcp [...] Plan (01/03/2024 10:49 AM EDT): Presented from [facility] with hyponatremia (initially 123). Also [...] Seroquel 25 mg twice daily Presents from [facility]'s forensic unit with documented history of schizophrenia. Continue home aripiprazole 20mg daily Continue home carbamazepine 500 mg twice daily Continue home Zyprexa 15 mg nightly Continue home Seroquel 25 mg twice daily Consider psychiatry consult if concern that antipsychotic medications are causing SIADH Patient presents from [facility], requires constant observation Assessment & Plan (01/02/2024 11:43 AM EDT): Home medications: aripiprazole 20 mg daily, carbamazepine 500 mg twice daily, Zyprexa 15 mg nightly, Seroquel 25 mg twice daily Presents from [facility]'s forensic unit with documented history of schizophrenia. Continue home aripiprazole 20mg daily Continue home carbamazepine 500 mg twice daily Continue home Zyprexa 15 mg nightly Continue home Seroquel 25 mg twice daily Consider psychiatry consult if concern that antipsychotic medications are causing SIADH Patient presents from [facility], requires constant observation BPH (benign prostatic hyperplasia) 12/30/2023 Assessment & Plan (01/03/2024 2:33 PM EDT): Paperwork from the [facility] indicates history of BPH with prior need for intermittent catheterization requiring urology evaluation in the past, records not available in our system). Per documentation from [facility] patient has seen urology at [facility] in [place]. He was started on Flomax outpatient. In [...] Health Center patient has seen urology at [facility] in [place]. He was started on Flomax outpatient. In [...] (1 - 1-dose 75+ series) 2040 Insurance [facility] MEDIC[facility] Advance Directives * Full Code (Latest Code Status on File) Date Activated Date Inactivated Comments 12/30/2023 7:22 PM 01/03/2024 8:48 PM * Presumed Full Code Date Activated Date Inactivated Comments 12/30/2023 7:00 PM 12/30/2023 7:22 PM Care Teams Prevention Coordinator Relationship Specialty Start Date End Date Ref, Has No Pcp Or DO NOT EDIT THIS RECORD VIA PROVIDER ON THE FLY PCP - General Food Demonstrator 12/30/23
--- OUTSIDE RECORDS SUMMARY | 2025-03-01 18:30 | XMS_ITS | Clinical Summary ---
Author Organization [facility] Address [address] [place] [address] Phone Care Team Providers Care Bacteriologist Medical Name Role Phone Dk Rodriguez MD Primary [...] PM EDT [facility] [address] [place] [phone] Encounter for Santos catheter removal (Primary Dx) Discharge Disposition: Home or Self Care 02/14/2025 8:31 PM EDT - 02/14/2025 9:27 PM EDT Emergency [facility] Emergency [address] [place] [phone] Urinary retention (Primary Dx) Discharge Disposition: Home or Self Care 02/10/2025 9:24 PM EDT - 02/10/2025 11:43 PM EDT [facility] [address] [place] [address] [phone] Discharge Disposition: Home or Self Care 02/01/2025 8:58 PM EDT - 02/01/2025 10:49 PM EDT [facility] [address] [place] [address] [place] [phone] Discharge Disposition: Home or Self Care 01/30/2025 8:57 PM EDT - 01/31/2025 12:33 AM EDT [facility] [address] [place] [phone] Discharge Disposition: Home or Self Care 01/28/2025 9:14 PM EDT - 01/28/2025 11:28 PM EDT [facility] [address] [place] [phone] Discharge Disposition: Home or Self Care 01/14/2025 8:53 PM EDT - 01/15/2025 12:26 AM EDT [facility] [address] [place] [phone] Discharge Disposition: Home or Self Care 01/12/2025 8:45 PM EDT - 01/12/2025 11:57 PM EDT [facility] [address] [place] [phone] Dilcia Carl MD Discharge Disposition: Left Against Medical Advice 12/04/2024 11:34 PM EDT - 12/05/2024 1:06 AM EDT [facility] [address] [place] [phone] Discharge Disposition: Home or Self Care 12/02/2024 10:00 PM EDT - 12/03/2024 12:28 AM EDT [facility] [address] [place] [phone] Discharge Disposition: Home or Self Care from [...] 12/05/2024 12:52 AM EDT [facility] Blood Venous blood specimen / Unknown Venipuncture / Unknown 12/05/2024 12:00 AM EDT 12/05/2024 12:45 AM EDT Dalila Alberto MD LAB BLOOD ORDERABLES Fin al Result [facility] [address] [place] [address], * (ABNORMAL) Comprehensive metabolic panel (12/05/2024 12:00 AM EDT) Sodium 139 133 - 145 mmol/L LAB CHEMISTRY METHOD 12/05/2024 1:25 AM EDT [facility] Potassium 3.6 3.5 - 5.5 [...] LAB CHEMISTRY METHOD 12/05/2024 1:25 AM EDT [facility] Blood Venous blood specimen / Unknown Venipuncture / Unknown 12/05/2024 12:00 AM EDT 12/05/2024 12:45 AM EDT us Dalila Alberto MD LAB BLOOD ORDERABLES Fin al Result [facility] [address] [place] [address], [place] [phone] from Last 3 Months Insurance MEDICARE MEDICAID - [place] Care Teams Bacteriologist Medical Relationship Specialty Start Date End Date Dk Rodriguez MD [address] [place] [address] [address] COY Lucero PCP - General Internal Medicine 07/16/24
[2025-03-01 18:55] LABS: MANUAL DIFF FLAG NO
[2025-03-01 18:56] LABS: Hematocrit 37.6 % (42.0-52.0); Hemoglobin 13.4 g/dl (14.0-18.0); Imm Gran Abs Auto 0.01 X10*3/uL (0.00-0.03); Imm Gran Pct Auto 0.2 % (0.0-0.4); Lymphocytes Absolute Auto 1.6 X10*3/uL (1.2-4.9); Mean Corpuscular HGB Conc 35.6 g/dl (31.0-36.0); Mean Corpuscular Hemoglobin 32.4 pg (27.0-33.0); Mean Corpuscular Volume 91.0 fL (80.0-98.0); NRBC Abs Auto 0.000 X10*3/uL (0.0-0.012); NRBC Pct Auto 0.0 /100WBC (0.0-0.2); Platelet Count 151 X10*3/uL (160-400); Red Blood Count 4.13 X10*6/uL (4.60-5.80); White Blood Count 5.1 X10*3/uL (4.8-10.8)
[2025-03-01 19:16] LABS: Alanine Aminotransferase 17 U/L (0-40); Albumin Level 4.1 g/dL (3.5-5.0); Alkaline Phosphatase 76 U/L (39-117); Anion Gap 13 (12-20); Aspartate Amino Transferase 24 U/L (5-37); Blood Urea Nitrogen 8 mg/dL (9-16); Calcium 9.0 mg/dL (8.4-10.2); Carbon Dioxide 23 mmol/L (22-29); Chloride 104 mmol/L (96-108); Creatinine Clr Calc Pharmacy 86.4; Estimated Glomerular Filt Rate > 60; Potassium 3.8 mmol/L (3.3-5.1); Sodium 136 mmol/L (135-145); Total Protein 6.8 g/dL (6.5-8.0)
--- NOTE | 2025-03-01 19:36 | PC.NURSE ---
this rn assumed care of pt, pt resting in stretcher, not answering RN questions at this time and states he is mad. MD bradshaw
[2025-03-01 21:18] VITALS: BP 120/77; PULSE 97; RESP 16; TEMP 36.3; O2SAT 99
== END 2025-03-01 21:28 | disposition home or self-care (01) ==
PROVIDERS: Registered Nurse Emergency; Emergency Provider Emergency Medicine; PCP Internal Medicine
DX: R45.1 Restlessness and agitation (principal); F25.0 Schizoaffective disorder, bipolar type; N40.0 Benign prostatic hyperplasia without lower urinary tract symptoms; Z72.0 Tobacco use; Z79.899 Other long term (current) drug therapy
CPT/HCPCS: 36415; 80053; 80307; 85025; 99284; S9485

== ENCOUNTER 2025-03-03 19:35 | Emergency (ER) | payer MEDICARE, MEDICAID, SELFPAY ==
[2025-03-03 19:42] VITALS: BP 122/77; PULSE 96; RESP 16; TEMP 36.3; O2SAT 98; BMI 19.4
--- NOTE | 2025-03-03 19:42 | ED_ITS ---
HPI - General Adult General Chief complaint: Anxiety Stated complaint: ? allergic reaction, not feeling well Related Data Home Medications ?Medication ?Instructions ?Recorded ?Confirmed aripiprazole 30 mg tablet 30 mg PO DAILY 01/31/2502/04 lorazepam 1 mg tablet 1 mg PO DAILY PRN Anxiety 02/25/25 quetiapine 100 mg tablet 100 mg PO BEDTIME 01/31/25 0 02/25/25 quetiapine 50 mg tablet 50 mg PO BID 01/31/25 olanzapine 10 mg tablet 10 mg PO TID 02/03/25 Previous Rx's ?Medication ?Instructions ?Recorded atorvastatin 20 mg tablet 20 mg PO QPM 90 days #90 tab s 01/10/25 tamsulosin 0.4 mg capsule 0.4 mg PO QAM 90 days #90 ca ps 01/10/25 Allergies Allergy/AdvReac Type Severity Reaction Status Date / Time No Known Allergies (NO KNOWN Allergy Unknown UNKNOWN Verified 03/03/25 19:44 ALLERGIES) [facility] Past Medical History Medical History Acute anxiety Smoker GERD without esophagitis Tubular adenoma of colon (~2018) Personal history of nicotine dependence Constipation Back pain Schizoaffective disorder, bipolar type Anxiety Benign prostatic hyperplasia with lower urinary tract symptoms Pure hypercholesterolemia Thought disorder Bipolar 1 disorder Mood disorder Surgical History History of colonoscopy (~04/2019) History of prostate surgery (~04/2019) History of open reduction and internal fixation (ORIF) procedure (~08/2018) Family History Family History Father Lung cancer BPH (benign prostatic hyperplasia) Mother Dementia Brother Myocardial infarction Other Mental health problem Substance abuse Social History Social History Household Members: Other Housing: Other Housing Other:: Retirement Do you presently have visiting nurse or other home services: No Alcohol intake: never Patient Tobacco Use Status: Current everyday Tobacco user Tobacco use type: Cigarette Cigarette Packs Per Day: 0.5 Cigarettes Per Day: 10.0 Years Smoked: 10 e-Cigarette/Vaping Use: Never Used Second Hand Smoke Exposure: Yes Advance Directives: No Advance Directives Information Provided: No Do you have a plan to hurt others: No Plan service: No Current occupational status: employed and disabled Current occupation: [employer] Sexual orientation: Straight/Heterosexual Cognitive needs: No Hearing needs: No Vision needs: Yes Physical Exam ED Vital Signs: Vital Signs - 24 hr 03/03/25 19:42 Temperature 97.4 F Pulse Rate 96 Respiratory Rate 16 Blood Pressure 122/77 Pulse Oximetry 98 Oxygen Delivery Method Room Air BMI result Body Mass Index 19.4 Course Course Course Narrative: Rapid medical examination performed in triage by Fozia Jordan PA-C. Patient is a 59 year old assigned male at presenting to the emergency department with awful anxiety attacks in his intermediate . Patient states his intermediate is giving him horrible anxiety attacks. Detailed physical exam and review of systems are deferred to the residential treatment counselor. Patient placed back in the waiting room pending room availability. Patient left the department without completing treatment. Patient left the department before myself or any of the other emergency department clinicians could explain to or review with the patient; physical exam findings, test results, need or lack there of for additional testing, need or lack there of for a procedure to be performed, need or lack there of for hospital admission / transfer, need or lack there of for prescription medication, treatment options, or a treatment plan. Patient's limited physical exam performed in triage showed a non-toxic individual with appropriate breathing, alert and oriented, and ambulating without assistance. Discharge Plan Discharge Clinical Impression: Anxiety Patient Disposition: Left W/O Completing Treatment Prescriptions: No Action quetiapine 100 mg tablet 100 mg PO BEDTIME lorazepam 1 mg tablet 1 mg PO DAILY PRN (Reason: Anxiety) aripiprazole 30 mg tablet 30 mg PO DAILY quetiapine 50 mg tablet 50 mg PO BID olanzapine 10 mg tablet 10 mg PO TID tamsulosin 0.4 mg capsule 0.4 mg PO QAM 90 Days Qty: 90 0RF atorvastatin 20 mg tablet 20 mg PO QPM 90 Days Qty: 90 3RF Discharge Date/Time: 03/04/25 01:51
--- OUTSIDE RECORDS SUMMARY | 2025-03-03 20:45 | XMS_ITS | Clinical Summary ---
Author Organization [facility] Address [address] [place] [address] Care Team Providers Care Pipe Racker Name Role Phone Ref, Has No Pcp [...] Plan (01/03/2024 2:32 PM EDT): Presents from [facility] in the setting of urinary retention [...] Plan (01/02/2024 11:43 AM EDT): Presents from [facility] in the setting of urinary retention [...] Seroquel 25 mg twice daily Presents from [facility]'s forensic unit with documented history of schizophrenia. Continue home aripiprazole 20mg daily Continue home carbamazepine 500 mg twice daily Continue home Zyprexa 15 mg nightly Continue home Seroquel 25 mg twice daily Consider psychiatry consult if concern that antipsychotic medications are causing SIADH Patient presents from [facility], requires constant observation Assessment & Plan (01/02/2024 11:43 AM EDT): Home medications: aripiprazole 20 mg daily, carbamazepine 500 mg twice daily, Zyprexa 15 mg nightly, Seroquel 25 mg twice daily Presents from [facility]'s forensic unit with documented history of schizophrenia. Continue home aripiprazole 20mg daily Continue home carbamazepine 500 mg twice daily Continue home Zyprexa 15 mg nightly Continue home Seroquel 25 mg twice daily Consider psychiatry consult if concern that antipsychotic medications are causing SIADH Patient presents from [facility], requires constant observation BPH (benign prostatic hyperplasia) 12/30/2023 Assessment & Plan (01/03/2024 2:33 PM EDT): Paperwork from the [facility] indicates history of BPH with prior need for intermittent catheterization requiring urology evaluation in the past, records not available in our system). Per documentation from [facility] patient has seen urology at [facility] in [place]. He was started on Flomax outpatient. In [...] (01/02/2024 11:43 AM EDT): Paperwork from the [facility] indicates history of BPH with prior need for intermittent catheterization requiring urology evaluation in the past, records not available in our system). Per documentation from [facility] patient has seen urology at [facility] in [place]. He was started on Flomax outpatient. In [...] (1 - 1-dose 75+ series) 2040 Insurance [facility]ICARE [facility] Advance Directives * Full Code (Latest Code Status on File) Date Activated Date Inactivated Comments 12/30/2023 7:22 PM 01/03/2024 8:48 PM * Presumed Full Code Date Activated Date Inactivated Comments 12/30/2023 7:00 PM 12/30/2023 7:22 PM Care Teams Pipe Racker Relationship Specialty Start Date End Date Ref, Has No Pcp Or DO NOT EDIT THIS RECORD VIA PROVIDER ON THE FLY PCP - General Electromechanisms Design Drafter 12/30/23
--- OUTSIDE RECORDS SUMMARY | 2025-03-03 20:45 | XMS_ITS | Clinical Summary ---
Author Organization [facility] Address [address] [place] [address] Phone Care Team Providers Care Ornamental Metal Erector Apprentice Name Role Phone Dk Rodriguez MD Primary [...] PM EDT - 02/15/2025 9:45 PM EDT [facility] Emergency [address] [place] [phone] Encounter for Santos catheter removal (Primary Dx) Discharge Disposition: Home or Self Care 02/14/2025 8:31 PM EDT - 02/14/2025 9:27 PM EDT Emergency [facility] Emergency [address] [place] [phone] Urinary retention (Primary Dx) Discharge Disposition: Home or Self Care 02/10/2025 9:24 PM EDT - 02/10/2025 11:43 PM EDT [facility] Emergency [address] [place] [phone] Discharge Disposition: Home or Self Care 02/01/2025 8:58 PM EDT - 02/01/2025 10:49 PM EDT [facility] Emergency [address] [place] [address] [place] [phone] Discharge Disposition: Home or Self Care 01/30/2025 8:57 PM EDT - 01/31/2025 12:33 AM EDT [facility] Emergency [address] [place] [phone] Discharge Disposition: Home or Self Care 01/28/2025 9:14 PM EDT - 01/28/2025 11:28 PM EDT [facility] Emergency [address] [place] [phone] Discharge Disposition: Home or Self Care 01/14/2025 8:53 PM EDT - 01/15/2025 12:26 AM EDT [facility] Emergency [address] [place] [phone] Discharge Disposition: Home or Self Care 01/12/2025 8:45 PM EDT - 01/12/2025 11:57 PM EDT [facility] Emergency [address] [place] [phone] Dilcia Carl MD Discharge Disposition: Left Against Medical Advice 12/04/2024 11:34 PM EDT - 12/05/2024 1:06 AM EDT [facility] Emergency [address] [place] [phone] Discharge Disposition: Home or Self Care 12/02/2024 10:00 PM EDT - 12/03/2024 12:28 AM EDT [facility] Emergency [address] [place] [phone] Discharge Disposition: Home or Self Care from [...] LAB HEMETOLOGY METHOD 12/05/2024 12:[address] [facility] RBC 4.00(L) 4.50 - 5.50 M/mcL LAB HEMETOLOGY METHOD 12/05/2024 12:[address] [facility] Hemoglobin 12.7(L) 13.5 - 17.5 g/dL LAB HEMETOLOGY METHOD 12/05/2024 12:52 AM [facility] Hematocrit 37.3(L) 42.0 - 54.0 % LAB HEMETOLOGY METHOD 12/05/2024 12:52 AM [facility] MCV 93.7 79.0 - 98.0 FL LAB HEMETOLOGY METHOD 12/05/2024 12:52 AM [facility] MCH 31.9 27.0 - 32.0 pcg LAB HEMETOLOGY METHOD 12/05/2024 12:52 AM [facility] MCHC 34.0 32.0 - 37.0 g/dL LAB HEMETOLOGY METHOD 12/05/2024 12:52 AM [facility] RDW 13.2 11.0 - 15.0 % LAB HEMETOLOGY METHOD 12/05/2024 12:52 AM [facility] Platelets 207 130 - 400 K/mcL LAB HEMETOLOGY METHOD 12/05/2024 12:52 AM [facility] MPV 9.4 7.0 - 11.0 FL LAB HEMETOLOGY METHOD 12/05/2024 12:52 AM [facility] NRBC 0.0 <1.0 % LAB HEMETOLOGY METHOD 12/05/2024 12:52 AM [facility] NRBC Absolute 0.00 <0.10 K/mcL LAB HEMETOLOGY METHOD 12/05/2024 12:52 AM [facility] Neutrophils Relative 56.8 % LAB HEMETOLOGY METHOD 12/05/2024 12:52 AM [facility] Lymphocytes Relative 27.7 % LAB HEMETOLOGY METHOD 12/05/2024 12:52 AM [facility] Monocytes Relative 11.1 % LAB HEMETOLOGY METHOD 12/05/2024 12:52 AM [facility] Eosinophils Relative 3.3 % LAB HEMETOLOGY METHOD 12/05/2024 12:52 AM [facility] Basophils Relative 0.8 % LAB HEMETOLOGY METHOD 12/05/2024 12:52 AM [facility] Immature Granulocytes Relative 0.3 % LAB HEMETOLOGY METHOD 12/05/2024 12:[address] [facility] Neutrophils Absolute 4.19 1.50 - 7.00 K/mcL LAB HEMETOLOGY METHOD 12/05/2024 12:[address] [facility] Lymphocytes Absolute 2.04 1.00 - 5.00 K/mcL LAB HEMETOLOGY METHOD 12/05/2024 12:[address] [facility] Monocytes Absolute 0.82 0.20 - 1.00 K/mcL LAB HEMETOLOGY METHOD 12/05/2024 12:[address] [facility] Eosinophils Absolute 0.24 0.00 - 0.50 K/mcL LAB HEMETOLOGY METHOD 12/05/2024 12:[address] [facility] Basophils Absolute 0.06 0.00 - 0.20 K/mcL LAB HEMETOLOGY METHOD 12/05/2024 12:[address] [facility] Immature Granulocytes Absolute 0.02 0.00 - 0.03 K/mcL LAB HEMETOLOGY METHOD 12/05/2024 12:[address] [facility] Blood Venous blood specimen / Unknown Venipuncture / Unknown 12/05/2024 12:00 AM EDT 12/05/2024 12:45 AM EDT Dalila Alberto MD LAB BLOOD ORDERABLES Fin al Result [facility] [address] [place] [address], * (ABNORMAL) Comprehensive metabolic panel (12/05/2024 12:00 AM EDT) Sodium 139 133 - 145 mmol/L LAB CHEMISTRY METHOD 12/05/2024 1:[address] [facility] Potassium 3.6 3.5 - 5.5 mmol/L LAB CHEMISTRY METHOD 12/05/2024 1:25 AM [facility] Chloride 108 96 - 110 mmol/L LAB CHEMISTRY METHOD 12/05/2024 1:25 AM [facility] CO2 26 21 - 32 mmol/L LAB CHEMISTRY METHOD 12/05/2024 1:25 AM [facility] Anion Gap 5 3 - 11 LAB CHEMISTRY METHOD 12/05/2024 1:25 AM [facility] Glucose 80 70 - 100 mg/dL LAB CHEMISTRY METHOD 12/05/2024 1:25 AM [facility] BUN 8 5 - 25 mg/dL LAB CHEMISTRY METHOD 12/05/2024 1:25 AM [facility] Creatinine 0.69(L) 0.70 - 1.30 mg/dL LAB CHEMISTRY METHOD 12/05/2024 1:25 AM [facility] eGFR 107 >=60 mL/min/1. 73m2 LAB CHEMISTRY METHOD 12/05/2024 1:25 AM [facility] Comment:Calculation based on the Chronic Kidney Disease Epidemiology Collaboration (CKD-EPI) equation refit without adjustment for race. BUN/Creatinine Ratio 11.6 LAB CHEMISTRY METHOD 12/05/2024 1:25 AM [facility] Calcium 8.6 8.5 - 10.5 mg/dL LAB CHEMISTRY METHOD 12/05/2024 1:25 AM [facility] AST (SGOT) 13 10 - 42 unit/L LAB CHEMISTRY METHOD 12/05/2024 1:25 AM [facility] ALT (SGPT) 16 10 - 60 unit/L LAB CHEMISTRY METHOD 12/05/2024 1:25 AM [facility] Alkaline Phosphatase 67 42 - 121 unit/L LAB CHEMISTRY METHOD 12/05/2024 1:25 AM [facility] Total Protein 6.3 6.0 - 8.0 g/dL LAB CHEMISTRY METHOD 12/05/2024 1:[address] [facility] Albumin 3.3 3.2 - 5.0 g/dL LAB CHEMISTRY METHOD 12/05/2024 1:[address] [facility] Total Bilirubin 0.4 0.0 - 1.4 mg/dL LAB CHEMISTRY METHOD 12/05/2024 1:25 AM EDT [facility] Blood Venous blood specimen / Unknown Venipuncture / Unknown 12/05/2024 12:00 AM EDT 12/05/2024 12:45 AM EDT us Dalila Alberto MD LAB BLOOD ORDERABLES Fin al Result [facility] [address] [place] [address], [place] [phone] from Last 3 Months Insurance MEDICARE MEDICAID - [place] Care Teams Ornamental Metal Erector Apprentice Relationship Specialty Start Date End Date Dk Rodriguez MD [address] [place] [address] [address] COY Lucero PCP - General Internal Medicine 07/16/24
--- OUTSIDE RECORDS SUMMARY | 2025-03-03 20:45 | XMS_ITS | Encounter Summary ---
Author Organization [facility] Address [address] [place] [address] Care Team Providers Care Foundry Supervisor Name Role Phone Ref, Has No Pcp Or Primary Care Provider Unavail able Encounter Details Date Type Department Care Team (Late st Contact Info) Description 01/04/2024 Community Orders [facility] EpicCare Link [address] [place] [address] Bethany Lozano, CHIEF OF PARTY [address] [place] [address] Social History Tobacco Use Types Packs/Day Years [...] on filedocumented in this encounter Care Teams Foundry Supervisor Relationship Specialty Start Date End Date Ref, Has No Pcp Or DO NOT EDIT THIS RECORD VIA PROVIDER ON THE FLY PCP - General Assistant Store Director 12/30/23 documented as of this encounter
== END 2025-03-04 01:51 | disposition left against medical advice (07) ==
PROVIDERS: Emergency Provider Emergency Medicine; PCP Internal Medicine
DX: F41.1 Generalized anxiety disorder (principal); Z79.899 Other long term (current) drug therapy; F17.210 Nicotine dependence, cigarettes, uncomplicated
CPT/HCPCS: 99281

== ENCOUNTER 2025-03-05 07:36 | Emergency (ER) | payer MEDICARE, MEDICAID, SELFPAY ==
[2025-03-05 07:38] VITALS: BP 118/73; PULSE 89; RESP 18; TEMP 36.4; O2SAT 94; BMI 21.4
--- NOTE | 2025-03-05 07:45 | ED.GENADULT ---
HPI - General Adult General Chief complaint: General Medical Stated complaint: issues at nursing home Time Seen by Provider: 03/05/25 07:45 Source: patient, RN notes reviewed and old records reviewed Mode of arrival: ambulatory Limitations: no limitations History of Present Illness ED Provider: Yvette MCKAY narrative: Patient is a 59-year-old male with history of schizoaffective disorder, bipolar type, anxiety presenting to the emergency department from his nursing home stating that he had 1 episode of nausea and vomiting this morning. States emesis was nonbloody, nonbilious. Denies any current abdominal pain. Denies any current nausea. Denies any diarrhea or constipation. States that he left because no nursing home staff were helping him. He states he does not know what he would have needed help with. MD complaint: nausea and vomiting Related Data Home Medications ?Medication ?Instructions ?Recorded ?Confirmed aripiprazole 30 mg tablet 30 mg PO DAILY 01/31/25 02/25/25 lorazepam 1 mg tablet 1 mg PO DAILY PRN Anxiety 01/31/25 02/25/25 quetiapine 100 mg tablet 100 mg PO BEDTIME 01/31/25 02/25/25 quetiapine 50 mg tablet 50 mg PO BID 01/31/25 02/25/25 olanzapine 10 mg tablet 10 mg PO TID 02/03/25 02/25/25 Previous Rx's ?Medication ?Instructions ?Recorded atorvastatin 20 mg tablet 20 mg PO QPM 90 days #90 tabs 01/10/25 tamsulosin 0.4 mg capsule 0.4 mg PO QAM 90 days #90 caps 01/10/25 Allergies Allergy/AdvReac Type Severity Reaction Status Date / Time No Known Allergies (NO KNOWN Allergy Unknown UNKNOWN Verified 03/05/25 07:40 ALLERGIES) Review of Systems Review of Systems: as per hpi Yes all other systems are reviewed and are negative Constitutional: Constitutional: Reports as per HPI PMF Past Medical History Medical History Acute anxiety Smoker GERD without esophagitis Tubular adenoma of colon (~2018) Personal history of nicotine dependence Constipation Back pain Schizoaffective disorder, bipolar type Anxiety Benign prostatic hyperplasia with lower urinary tract symptoms Pure hypercholesterolemia Thought disorder Bipolar 1 disorder Mood disorder Surgical History History of colonoscopy (~04/2019) History of prostate surgery (~04/2019) History of open reduction and internal fixation (ORIF) procedure (~08/2018) Family History Family History Father Lung cancer BPH (benign prostatic hyperplasia) Mother Dementia Brother Myocardial infarction Other Mental health problem Substance abuse Social History Social History Household Members: Other Housing: Other Housing Other:: Correction Do you presently have visiting nurse or other home services: No Alcohol intake: never Patient Tobacco Use Status: Current everyday Tobacco user Tobacco use type: Cigarette Cigarette Packs Per Day: 0.5 Cigarettes Per Day: 10.0 Years Smoked: 10 e-Cigarette/Vaping Use: Never Used Second Hand Smoke Exposure: Yes Advance Directives: No Advance Directives Information Provided: No Do you have a plan to hurt others: No Plan service: No Current occupational status: employed and disabled Current occupation: [employer] Sexual orientation: Straight/Heterosexual Cognitive needs: No Hearing needs: No Vision needs: Yes Physical Exam ED Vital Signs: Vital Signs - 24 hr 03/05/25 07:38 Temperature 97.5 F Pulse Rate 89 Respiratory Rate 18 Blood Pressure 118/73 Pulse Oximetry 94 Oxygen Delivery Method Room Air BMI result Body Mass Index 21.4 Vital signs have been reviewed and appear to be correct. Blood pressure normal. Heart rate normal. Respiratory rate normal. Temperature normal. Oxygen saturation normal. Const General: cooperative, healthy appearing and no acute distress Orientation/consciousness: oriented to person, oriented to place, oriented to time and patient oriented x3 Limitations: no limitations [facility] Head: Yes normocephalic and Yes atraumatic Ears: external ears normal General nose exam: Normal external nose present Face and sinus: Yes face symmetric Mouth: oropharynx normal and moist mucous membranes Throat: Yes uvula midline Eyes Pupils: Equal, round and reactive pupils present Neck Neck: Yes normal visual inspection and Yes supple Resp Effort & Inspection: normal respiratory effort and able to speak in complete sentences Auscultation: clear to auscultation bilaterally Cardio Rate: regular rate Rhythm: regular rhythm Heart sounds: S1 normal heart sound present and S2 normal heart sound present GI Palpation (GI): Soft to palpation and nontender Auscultation: normoactive bowel sounds General: Yes no CVA tenderness Back/Spine/Pelvis Back: no CVA tenderness Skin General skin exam: elasticity normal and turgor normal Neuro General: oriented to person, oriented to place, oriented to time, patient oriented x3, moves all extremities, no focal motor deficits and CN's II-XI intact bilaterally Cranial nerves: Yes Equal, round and reactive pupils present Cognition (Neuro): normal cognition Extrem General: Yes full ROM, Yes no pedal edema and Yes no calf tenderness Psych Mental Status: mental status grossly normal Affect: normal affect Thought process: Normal thought process present Medical Decision Making Medical Decision Making [facility] Narrative: Patient is a 59-year-old male with history of schizoaffective disorder, bipolar type, anxiety presenting to the emergency department from his nursing home stating that he had 1 episode of nausea and vomiting this morning. On exam patient is awake, A+Ox3, VS WNL, afebrile, normal neurological exam without focal deficits, physical exam findings as above. Given reported symptoms and physical exam findings, initial differential includes but is not limited to gastritis, anxiety, GERD, PUD. Patient denied any symptoms on arrival and was willing to attempt a PO challenge. Declined labs. Patient able to tolerate a PB & jelly sandwich, juice, and states he feels better. Requesting discharge so he can attend his day program. Patient very familiar to this ED, presents nearly daily for anxiety/agitation/etc. Given that he is well appearing, tolerating PO and is without complaint, feel he is stable for discharge at this time. Return precautions discussed. Patient verbalized understanding of and agreement with this plan. Differential Diagnosis Differential Diagnoses: The differential diagnosis associated with the presentation includes as per [facility] Admission/Observation Consideration of admission/observation: Escalation of care including admission/observation considered Patient would have been admitted to the hospital and transferred to appropriate facility had their clinical presentation warranted hospital admission. External Record Review External record reviewed: Inpatient record, Office record and Outpatient record Discharge Plan Discharge Clinical Impression: Nausea & vomiting Qualifiers: Vomiting type: unspecified Qualified Code(s): R11.2 - Nausea with vomiting, unspecified Patient Disposition: Home, Self-Care Instructions: Acute Nausea and Vomiting (DC) Additional Instructions: You were evaluated in the emergency department today for nausea and vomiting which is most likely due to irritation of the lining of your stomach. Avoid spicy or acidic foods. Please follow up with your primary care physician within two days. Return to the emergency department if you experience shortness of breath, worsening or uncontrolled abdominal pain, chest pain, light headedness, faiting, persistent nausea and vomiting, bloody vomit or stools, black, tarry stools, or any other concerning symptoms. Prescriptions: No Action quetiapine 100 mg tablet 100 mg PO BEDTIME lorazepam 1 mg tablet 1 mg PO DAILY PRN (Reason: Anxiety) aripiprazole 30 mg tablet 30 mg PO DAILY quetiapine 50 mg tablet 50 mg PO BID olanzapine 10 mg tablet 10 mg PO TID tamsulosin 0.4 mg capsule 0.4 mg PO QAM 90 Days Qty: 90 0RF atorvastatin 20 mg tablet 20 mg PO QPM 90 Days Qty: 90 3RF Print Language: Georgian
--- OUTSIDE RECORDS SUMMARY | 2025-03-05 07:51 | XMS_ITS | Encounter Summary ---
Author Organization [facility] Address [address] [place] [address] Care Team Providers Care Order Entry Specialist Name Role Phone Ref, Has No Pcp Or Primary Care Provider Unavail able Encounter Details Date Type Department Care Team (Late st Contact Info) Description 01/04/2024 Community Orders [facility] EpicCare Link [address] [place] [address] Bethany Lozano, AIRPORT SCREENER [address] [place] [address] Social History Tobacco Use Types Packs/Day Years [...] on filedocumented in this encounter Care Teams Order Entry Specialist Relationship Specialty Start Date End Date Ref, Has No Pcp Or DO NOT EDIT THIS RECORD VIA PROVIDER ON THE FLY PCP - General President [place] 12/30/23 documented as of this encounter
--- OUTSIDE RECORDS SUMMARY | 2025-03-05 07:51 | XMS_ITS | Clinical Summary ---
Author Organization [facility] Address [address] [place] [address] Care Team Providers Care Lime Kiln Worker Helper Name Role Phone Ref, Has No Pcp [...] Plan (01/03/2024 2:32 PM EDT): Presents from [facility] in the setting of urinary retention [...] Plan (01/03/2024 10:49 AM EDT): Presented from [facility] with hyponatremia (initially 123). Also [...] Plan (01/02/2024 11:43 AM EDT): Presents from [facility] in the setting of urinary retention [...] Seroquel 25 mg twice daily Presents from [facility]'s forensic unit with documented history of schizophrenia. 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 Continue home aripiprazole 20mg daily Continue home carbamazepine 500 mg twice daily Continue home Zyprexa 15 mg nightly Continue home Seroquel 25 mg twice daily Consider psychiatry consult if concern that antipsychotic medications are causing SIADH Patient presents from [facility], requires constant observation BPH (benign prostatic hyperplasia) 12/30/2023 Assessment & Plan (01/03/2024 2:33 PM EDT): Paperwork from [facility] indicates history of BPH with prior need for intermittent catheterization requiring urology evaluation in the past, records not available in our system). Per documentation from [facility] patient has seen urology at [facility] in [place]. He was started on Flomax outpatient. In [...] 11:43 AM EDT): Paperwork from the [facility] indicates history of BPH with prior need for intermittent catheterization requiring urology evaluation in the past, records not available in our system). Per documentation from [facility] patient has seen urology at [facility] in [place]. He was started on Flomax outpatient. In [...] (1 - 1-dose 75+ series) 2040 Insurance [facility] Advance Directives * Full Code (Latest Code Status on File) Date Activated Date Inactivated Comments 12/30/2023 7:22 PM 01/03/2024 8:48 PM * Presumed Full Code Date Activated Date Inactivated Comments 12/30/2023 7:00 PM 12/30/2023 7:22 PM Care Teams Lime Kiln Worker Helper Relationship Specialty Start Date End Date Ref, Has No Pcp Or DO NOT EDIT THIS RECORD VIA PROVIDER ON THE FLY PCP - General Biomedical Engineering Supervisor 12/30/23
--- OUTSIDE RECORDS SUMMARY | 2025-03-05 07:51 | XMS_ITS | Clinical Summary ---
Author Organization [facility] Address [address] [place] [address] Phone Care Team Providers Care Fixed Income Portfolio Manager Name Role Phone Dk Rodriguez MD Primary [...] PM EDT - 02/15/2025 9:45 PM EDT [facility] Emergency [address] [place] [phone] Encounter for Santos catheter removal (Primary Dx) Discharge Disposition: Home or Self Care 02/14/2025 8:31 PM EDT - 02/14/2025 9:27 PM EDT Emergency [facility] Emergency [address] [place] [phone] Urinary retention (Primary Dx) Discharge Disposition: Home or Self Care 02/10/2025 9:24 PM EDT - 02/10/2025 11:43 PM EDT [facility] Emergency [address] [place] [phone] Discharge Disposition: Home or Self Care 02/01/2025 8:58 PM EDT - 02/01/2025 10:49 PM EDT [facility] Emergency [address] [place] [address] [place] [phone] Discharge Disposition: Home or Self Care 01/30/2025 8:57 PM EDT - 01/31/2025 12:33 AM EDT [facility] Emergency [address] [place] [phone] Discharge Disposition: Home or Self Care 01/28/2025 9:14 PM EDT - 01/28/2025 11:28 PM EDT [facility] Emergency [address] [place] [phone] Discharge Disposition: Home or Self Care 01/14/2025 8:53 PM EDT - 01/15/2025 12:26 AM EDT [facility] Emergency [address] [place] [phone] Discharge Disposition: Home or Self Care 01/12/2025 8:45 PM EDT - 01/12/2025 11:57 PM EDT [facility] Emergency [address] [place] [phone] Dilcia Carl MD Discharge Disposition: Left Against Medical Advice 12/04/2024 11:34 PM EDT - 12/05/2024 1:06 AM EDT [facility] Emergency [address] [place] [phone] Discharge Disposition: Home or Self Care 12/02/2024 10:00 PM EDT - 12/03/2024 12:28 AM EDT [facility] Emergency [address] [place] [phone] Discharge Disposition: Home or Self Care from [...] Health Maintenance Due Date Last Done Comments Colorectal Cancer Screening: Colonoscopy 1965 Hepatitis A Vaccines (1 of 2 - Risk 2-dose series) 1984 Hepatitis B Vaccines (1 of 3 - 19+ 3-dose series) 1984 Zoster Vaccines (1 of 2) 12/15/2015 Pneumococcal Vaccine: 50+ Years (2 of 2 - PCV) 06/27/2016 06/27/2015, 09/30/2012 Cholesterol Screening (Lipid Panel) 05/08/2022 HIV Screening 05/08/2022 Hepatitis C Screening [...] al Result [facility] [address] [place] [address], * (ABNORMAL) Comprehensive metabolic panel (12/05/2024 12:00 AM EDT) Sodium 139 133 - 145 mmol/L LAB CHEMISTRY METHOD 12/05/2024 1:[address] [facility] Potassium 3.6 3.5 - 5.5 mmol/L LAB CHEMISTRY METHOD [facility]24 [facility] Chloride 108 96 - [...] LAB CHEMISTRY METHOD 12/05/2024 1:25 AM EDT [facility] Blood Venous blood specimen / Unknown Venipuncture / Unknown 12/05/2024 12:00 AM EDT 12/05/2024 12:45 AM EDT us Dalila Alberto MD LAB BLOOD ORDERABLES Fin al Result [facility] [address] [place] [address], [place] [phone] from Last 3 Months Insurance MEDICARE MEDICAID - [place] Care Teams Fixed Income Portfolio Manager Relationship Specialty Start Date End Date Dk Rodriguez MD [address] [place] [address] [address] COY Lucero PCP - General Internal Medicine 07/16/24
--- NOTE | 2025-03-05 08:06 | PC.NURSE ---
pt reports he was just having trouble at his home today. He had a sandwich and juice. He intends to return to his day program.
[2025-03-05 08:12] VITALS: BP 118/73; PULSE 89; RESP 18; TEMP 36.4; O2SAT 94
== END 2025-03-05 08:13 | disposition home or self-care (01) ==
PROVIDERS: Emergency Provider Emergency Medicine; PCP Internal Medicine
DX: R11.2 Nausea with vomiting, unspecified (principal)
CPT/HCPCS: 99282; 99283

== ENCOUNTER 2025-03-07 19:48 | Emergency (ER) | payer MEDICARE, MEDICAID, SELFPAY ==
--- OUTSIDE RECORDS SUMMARY | 2025-03-06 21:24 | XMS_ITS | Encounter Summary ---
Author Organization [facility] Address [address] [place] [address] Care Team Providers Care Moshgiach Name Role Phone Dk Rodriguez MD Primary Care Provider + [phone] Reason for Visit * Reason Comments Abdominal Pain Anxiety Encounter Details Date Type Department Care Team (Late st Contact Info) Description 03/06/2025 9:24 PM EDT - 03/06/2025 9:57 PM EDT Emergency [facility] Emergency [address] [place] [address] Discharge Disposition: Home or Self [...] on filedocumented in this encounter Care Teams Moshgiach Relationship Specialty Start Date End Date Dk Rodriguez MD [address] [place] [address] Dr [address] [place] PCP - General Internal Medicine 07/16/24 documented as of this encounter
[2025-03-07 20:12] VITALS: BP 105/65; PULSE 97; RESP 20; TEMP 36.3; O2SAT 96; BMI 21.7
--- OUTSIDE RECORDS SUMMARY | 2025-03-07 23:04 | XMS_ITS | Clinical Summary ---
Author Organization [facility] Address [address] [place] [address] Phone Care Team Providers Care Certified Art Therapist Name Role Phone Dk Rodriguez MD Primary Care Provider Allergies No known active allergies Medications tamsulosin (FLOMAX) 0.4 mg 24 hr capsule Take 1 capsule (0.4 mg total) by mouth 1 (one) time each day for 7 days. Capsules should be taken 30 minutes following the same meal each day. 7 capsule 02/23/20 Encounters Date Type Department Care Team Description 03/06/2025 9:24 PM EDT - 03/06/2025 9:57 PM EDT [facility] Emergency [address] [place] [phone] Discharge Disposition: Home or Self Care 02/15/2025 9:21 PM EDT - 02/15/2025 9:45 PM EDT Emergency [facility] Emergency [address] [place] [phone] Encounter for Santos catheter removal (Primary Dx) Discharge Disposition: Home or Self Care 02/14/2025 8:31 PM EDT - 02/14/2025 9:27 PM EDT [facility] Emergency [address] [place] [phone] Urinary retention (Primary Dx) Discharge Disposition: Home or Self Care 02/10/2025 9:24 PM EDT - 02/10/2025 11:43 PM EDT [facility] Emergency [address] [place] [address] [place] [phone] Discharge Disposition: Home or Self Care 02/01/2025 8:58 PM EDT - 02/01/2025 10:49 PM EDT [facility] Emergency [address] [place] [phone] Discharge Disposition: Home or Self Care 01/30/2025 8:57 PM EDT - 01/31/2025 12:33 AM EDT [facility] Emergency [address] [place] [phone] Discharge Disposition: Home or Self Care 01/28/2025 9:14 PM EDT - 01/28/2025 11:28 PM EDT [facility] Emergency [address] [place] [phone] Discharge Disposition: Home or Self Care 01/14/2025 8:53 PM EDT - 01/15/2025 12:26 AM EDT [facility] Emergency [address] [place] [phone] Discharge Disposition: Home or Self Care 01/12/2025 8:45 PM EDT - 01/12/2025 11:57 PM EDT [facility] Emergency [address] [place] [phone] Dilcia Carl MD Discharge Disposition: Left Against Medical Advice 12/04/2024 11:34 PM EDT - 12/05/2024 1:06 AM EDT [facility] Emergency [address] [place] [phone] Discharge Disposition: Home or Self Care from [...] AM EDT [facility] RBC 4.00(L) 4.50 - 5.50 M/mcL LAB HEMETOLOGY METHOD 12/05/2024 12:52 AM EDT [facility] Hemoglobin 12.7(L) 13.5 - 17.5 g/dL LAB HEMETOLOGY METHOD 12/05/2024 12:52 AM [facility] Hematocrit 37.3(L) 42.0 - 54.0 % LAB HEMETOLOGY METHOD 12/05/2024 12:52 AM [facility] MCV 93.7 79.0 - 98.0 [...] AM EDT [facility] Neutrophils Absolute [...] AM EDT [facility] Immature Granulocytes Absolute 0.02 0.00 - 0.03 K/mcL LAB HEMETOLOGY METHOD 12/05/2024 12:52 AM EDT [facility] Blood Venous blood specimen / Unknown Venipuncture / Unknown 12/05/2024 12:00 AM EDT 12/05/2024 12:45 AM EDT us Dalila Alberto MD LAB BLOOD ORDERABLES Fin al Result [facility] [address] [place] [address], * (ABNORMAL) Comprehensive metabolic panel (12/05/2024 12:00 AM EDT) Sodium 139 133 - 145 mmol/L LAB CHEMISTRY METHOD 12/05/2024 1:25 AM EDT [facility] Potassium 3.6 3.5 - 5.5 mmol/L LAB CHEMISTRY METHOD [facility] Chloride 108 96 - [...] LAB CHEMISTRY METHOD 12/05/2024 1:25 AM EDT [facility] Total Bilirubin 0.4 0.0 - 1.4 mg/dL LAB CHEMISTRY METHOD 12/05/2024 1:25 AM EDT [facility] Blood Venous blood specimen / Unknown Venipuncture / Unknown 12/05/2024 12:00 AM EDT 12/05/2024 12:45 AM EDT us Dalila Alberto MD LAB BLOOD ORDERABLES Fin al Result [facility] ([facility] [address] [place] [address], [place] [phone] from Last 3 Months Insurance MEDICARE MEDICAID - [place] Care Teams Certified Art Therapist Relationship Specialty Start Date End Date Dk Rodriguez MD [address] [place] [address] [address] [place] PCP - General Internal Medicine 07/16/24
--- OUTSIDE RECORDS SUMMARY | 2025-03-07 23:04 | XMS_ITS | Clinical Summary ---
Author Organization [facility] Address [address] [place] [address] Care Team Providers Care Laboratory Chief Name Role Phone Ref, Has No Pcp [...] Plan (01/03/2024 2:32 PM EDT): Presents from [facility] in the setting of urinary retention [...] Plan (01/03/2024 10:49 AM EDT): Presented from [facility] with hyponatremia (initially 123). Also had [...] Plan (01/02/2024 11:43 AM EDT): Presents from [facility] in the setting of urinary retention [...] Seroquel 25 mg twice daily Presents from [facility]'s forensic unit with documented history of schizophrenia. Continue home aripiprazole 20mg daily Continue home carbamazepine 500 mg twice daily Continue home Zyprexa 15 mg nightly Continue home Seroquel 25 mg twice daily Consider psychiatry consult if concern that antipsychotic medications are causing SIADH Patient presents from [facility], requires constant observation Assessment & Plan (01/02/2024 11:43 AM EDT): Home medications: aripiprazole 20 mg daily, carbamazepine 500 mg twice daily, Zyprexa 15 mg nightly, Seroquel 25 mg twice daily Presents from [facility]'s forensic unit with documented history of schizophrenia. Continue home aripiprazole 20mg daily Continue home carbamazepine 500 mg twice daily Continue home Zyprexa 15 mg nightly Continue home Seroquel 25 mg twice daily Consider psychiatry consult if concern that antipsychotic medications are causing SIADH Patient presents from [facility], requires constant observation BPH (benign prostatic hyperplasia) 12/30/2023 Assessment & Plan (01/03/2024 2:33 PM EDT): Paperwork from the [facility] indicates history of BPH with prior need for intermittent catheterization requiring urology evaluation in the past, records not available in our system). Per documentation from [facility] patient has seen urology at [facility] in [place]. He was started on Flomax outpatient. In [...] AM EDT): Paperwork from the [facility] indicates history of BPH with prior need for intermittent catheterization requiring urology evaluation in the past, records not available in our system). Per documentation from [facility] patient has seen urology at [facility] in [place]. He was started on Flomax outpatient. In [...] patients) (1 - 1-dose 75+ series) 2040 Tobacco Screening 06/05/2042 01/29/2024 Insurance [facility] MEDICARE [facility] Advance Directives * Full Code (Latest Code Status on File) Date Activated Date Inactivated Comments 12/30/2023 7:22 PM 01/03/2024 8:48 PM * Presumed Full Code Date Activated Date Inactivated Comments 12/30/2023 7:00 PM 12/30/2023 7:22 PM Care Teams Laboratory Chief Relationship Specialty Start Date End Date Ref, Has No Pcp Or DO NOT EDIT THIS RECORD VIA PROVIDER ON THE FLY PCP - General Associate Professor Of Education 12/30/23
--- OUTSIDE RECORDS SUMMARY | 2025-03-07 23:04 | XMS_ITS | Encounter Summary ---
Author Organization [facility] Address [address] [place] [address] Care Team Providers Care User Interface Designer Name Role Phone Ref, Has No Pcp Or Primary Care Provider Unavail able Encounter Details Date Type Department Care Team (Late st Contact Info) Description 01/04/2024 Community Orders [facility] EpicCare Link [address] [place] [address] Bethany Lozano, STILL OPERATOR [address] [place] [address] Social History Tobacco Use Types Packs/Day Years [...] on filedocumented in this encounter Care Teams User Interface Designer Relationship Specialty Start Date End Date Ref, Has No Pcp Or DO NOT EDIT THIS RECORD VIA PROVIDER ON THE FLY PCP - General Plastic Top Assembler 12/30/23 documented as of this encounter
== END 2025-03-07 23:12 | disposition left against medical advice (07) ==
LOC: HO.ED 23:00
PROVIDERS: Emergency Provider Emergency Medicine
DX: R06.02 Shortness of breath (principal)
CPT/HCPCS: 99281

== ENCOUNTER 2025-03-08 12:39 | Emergency (ER) | payer MEDICARE, MEDICAID, SELFPAY ==
--- OUTSIDE RECORDS SUMMARY | 2025-03-06 21:24 | XMS_ITS | Encounter Summary ---
Author Organization [facility] Address [address] [place] [address] Care Team Providers Care Line Maintenance Supervisor Name Role Phone Dk Rodriguez MD Primary Care Provider + [phone] Reason for Visit * Reason Comments Abdominal Pain Anxiety Encounter Details Date Type Department Care Team (Late st Contact Info) Description 03/06/2025 9:24 PM EDT - 03/06/2025 9:57 PM EDT Emergency [facility] Emergency [address] [place] [address] Discharge Disposition: Home or Self [...] on filedocumented in this encounter Care Teams Line Maintenance Supervisor Relationship Specialty Start Date End Date Dk Rodriguez MD [address] [place] [address] Dr [address] [place] PCP - General Internal Medicine 07/16/24 documented as of this encounter
[2025-03-08 13:13] VITALS: BP 108/64; PULSE 93; RESP 18; TEMP 36.7; O2SAT 96; BMI 20.2
--- NOTE | 2025-03-08 13:14 | ED.GENADULT ---
HPI - General Adult General Chief complaint: Urogenital-Male Stated complaint: aggitated Time Seen by Provider: 03/08/25 13:56 Source: patient Mode of arrival: ambulatory Limitations: no limitations History of Present Illness ED Provider: DAMARI Gonzalez HPI narrative: This is a 59-year-old male past medical history significant for urinary retention, GERD, current daily smoker, hyperlipidemia, neurogenic bladder, BPH with obstruction who presents to the emergency department with complaints of I can not pee. He tells me this has been going on x1 day. He reports he is also upset with his prison and he wanted to leave so he decided to come to the hospital. Denies associated nausea, vomiting, fevers, chills, abdominal pain, headache, vision changes, dizziness, chest pain, shortness of breath. Related Data Home Medications ?Medication ?Instructions ?Recorded ?Confirmed aripiprazole 30 mg tablet 30 mg PO DAILY 01/31/25 02/25/25 lorazepam 1 mg tablet 1 mg PO DAILY PRN Anxiety 01/31/25 02/25/25 quetiapine 100 mg tablet 100 mg PO BEDTIME 01/31/25 02/25/25 quetiapine 50 mg tablet 50 mg PO BID 01/31/25 02/25/25 olanzapine 10 mg tablet 10 mg PO TID 02/03/25 02/25/25 Previous Rx's ?Medication ?Instructions ?Recorded atorvastatin 20 mg tablet 20 mg PO QPM 90 days #90 tabs 01/10/25 tamsulosin 0.4 mg capsule 0.4 mg PO QAM 90 days #90 caps 01/10/25 Allergies Allergy/AdvReac Type Severity Reaction Status Date / Time No Known Allergies (NO KNOWN Allergy Unknown UNKNOWN Verified 03/08/25 13:16 ALLERGIES) Review of Systems Review of Systems: Yes all other systems are reviewed and are negative [facility] Past Medical History Attestation statement: The following information was validated with the patient. Source: old records reviewed and nursing notes reviewed Medical History Acute anxiety Smoker GERD without esophagitis Tubular adenoma of colon (~2018) Personal history of nicotine dependence Constipation Back pain Schizoaffective disorder, bipolar type Anxiety Benign prostatic hyperplasia with lower urinary tract symptoms Pure hypercholesterolemia Thought disorder Bipolar 1 disorder Mood disorder Surgical History History of colonoscopy (~04/2019) History of prostate surgery (~04/2019) History of open reduction and internal fixation (ORIF) procedure (~08/2018) Family History Family History Father Lung cancer BPH (benign prostatic hyperplasia) Mother Dementia Brother Myocardial infarction Other Mental health problem Substance abuse Social History Social History Household Members: Other Housing: Other Housing Other:: [facility] Do you presently have visiting nurse or other home services: No Alcohol intake: never Patient Tobacco Use Status: Current everyday Tobacco user Tobacco use type: Cigarette Cigarette Packs Per Day: 0.5 Cigarettes Per Day: 10.0 Years Smoked: 10 e-Cigarette/Vaping Use: Never Used Second Hand Smoke Exposure: Yes Advance Directives: No Advance Directives Information Provided: No Do you have a plan to hurt others: No Plan service: No Current occupational status: employed and disabled Current occupation: [employer] Sexual orientation: Straight/Heterosexual Cognitive needs: No Hearing needs: No Vision needs: Yes Physical Exam ED Exam Exam: Appearance: Alert.? Oriented X3.? No acute distress.? Head: Normocephalic, atraumatic, no step-offs or deformities Eyes: Pupils equal, round and reactive to light.? ENT: Pharynx normal.? Neck: Normal inspection.? Neck supple.? CVS: Normal heart rate and rhythm.? Pulses normal.? Respiratory: No respiratory distress.? Breath sounds normal.? Abdomen: Soft and initially indurated suprapubic region however after Santos catheter reassessed and it is soft nontender nondistended.? Skin: Skin warm and dry.? Normal skin color.? Normal skin turgor.? Extremities: No lower extremity edema.? No calf ttp. 5/5 strength to bilateral upper and lower extremities Back: No midline tenderness, no C-spine tenderness, full range of motion, no CVA tenderness bilaterally Neuro: Oriented X 3.? No motor deficit.? No sensory deficit. CN 2-12 intact Vital Signs: Vital Signs - 24 hr 03/08/25 13:13 03/08/25 16:43 Temperature 98.0 F 98.0 F Pulse Rate 93 93 Respiratory Rate 18 18 Blood Pressure 108/64 108/64 Pulse Oximetry 96 96 Oxygen Delivery Method Room Air Room Air BMI result Body Mass Index 20.2 vss Course Course Course Narrative: Medical screening exam performed. Please refer to detailed history, exam, evaluation, and management by primary provider. Reevaluation(s) Reevaluation #1: CBC unremarkable. Normocytic anemia appears to be patient's baseline. Chemistry pending. Urine pending Santos catheter was placed uneventfully. No complications Time: 15:29 Reevaluation #2: Patient has refusing discharge. He says he does not want to go back to his prison He is in agreeable to go now. Educated patient on diagnosis and treatment plan, answered all question, patient verbalizes understanding. At this time patient will be discharged home, advised to return with new or worsening symptoms. Educated on worrisome signs and symptoms and when to return. At this time I feel comfortable discharge home. Time: 16:31 Medical Decision Making Medical Decision Making [facility] Narrative: 59-year-old male presents with inability to void x1 day. History of this in the past. Requesting a Santos. Also upset at group staff workers however not suicidal or homicidal. Physical exam initially had indurated suprapubic region however after Santos catheterization patient no longer indurated, soft nontender nondistended. No rebound tenderness. His initial bladder scan 1303 therefore it was decided that patient will have a Santos placed and a leg bag will be placed. This is a frequent occurrence that patient has issues voiding, he should follow up with the Urology team. History and physical exam consistent with BPH. Unlikely obstructing uropathy as he has no pain associated with this. Patient does have history of neurogenic bladder. I do not suspect infection at this time. Will rule out metabolic derangements although unlikely. Will obtain basic labs and UA. As long as these are normal he can be discharged with leg bag and urology follow-up. Differential Diagnosis Differential Diagnoses: The differential diagnosis associated with the presentation includes (History and physical exam consistent with BPH. Unlikely obstructing uropathy as he has no pain associated with this. Patient does have history of neurogenic bladder. I do not suspect infection at this time. Will rule out metabolic derangements although unlikely.) Admission/Observation Consideration of admission/observation: Escalation of care including admission/observation considered (possible ) Lab Data [facility] Lab Attestation statement: I reviewed the patient's lab results. 03/08/25 14:25 03/08/25 14:12 Labs: Lab Results 03/08/25 03/08/25 03/08/25 Range/Units 14:12 14:25 15:25 WBC 9.3 (4.8-10.8) X10*3/uL RBC 4.21 L (4.60-5.80) X10*6/uL Hgb 13.5 L (14.0-18.0) g/dl Hct 39.2 L (42.0-52.0) % MCV 93.1 (80.0-98.0) fL MCH 32.1 (27.0-33.0) pg MCHC 34.4 (31.0-36.0) g/dl RDW 13.3 (11.0-16.0) % Plt Count 155 L (160-400) X10*3/uL MPV 10.6 (9.4-12.4) fL Immature Gran % (Auto) 0.2 (0.0-0.4) % Neut % (Auto) 80.2 H (45-73) % Lymph % (Auto) 12.2 L (20-40) % Bent % (Auto) 6.1 (2-11) % Eos % (Auto) 0.5 (0-4) % Baso % (Auto) 0.8 (0-2) % Lymph # (Auto) 1.1 L (1.2-4.9) X10*3/uL Bent # (Auto) 0.6 (0.1-1.2) X10*3/uL Eos # (Auto) 0.1 (0.0-0.4) X10*3/uL Baso # (Auto) 0.1 (0.0-0.2) X10*3/uL Abs Immat Gran (auto) 0.02 (0.00-0.03) X10*3/uL Absolute Neuts (auto) 7.5 (2.0-8.3) x10*3/uL Absolute Nucleated RBC 0.000 (0.0-0.012) X10*3/uL Nucleated RBC % (auto) 0.0 (0.0-0.2) /100WBC Sodium 144 (135-145) mmol/L Potassium 4.2 (3.3-5.1) mmol/L Chloride 108 (96-108) mmol/L Carbon Dioxide 28 (22-29) mmol/L Anion Gap 12 (12-20) BUN 6 L (9-16) mg/dL Creatinine 0.80 (0.5-1.4) mg/dL Estim Creat Clear Calc 87.1 Estimated GFR > 60 Random Glucose 103 (60-115) mg/dL Calcium 9.2 (8.4-10.2) mg/dL Magnesium 1.8 (1.6-2.6) mg/dL Total Bilirubin 0.4 (0.0-1.0) mg/dL AST 26 (5-37) U/L ALT 18 (0-40) U/L Alkaline Phosphatase 72 (39-117) U/L Total Protein 6.8 (6.5-8.0) g/dL Albumin 4.1 (3.5-5.0) g/dL Urine Color Yellow Urine Appearance Clear Urine pH 7.0 (5.0-9.0) Ur Specific [place] <= 1.005 (1.005-1.025) Urine Protein Negative (Neg-Trace) mg/dL Urine Glucose (UA) Negative (Negative) mg/dL Urine Ketones Negative (Negative) mg/dL Urine Blood Negative (Negative) Urine Nitrite Negative (Negative) Ur Leukocyte Esterase Trace H (Negative) Urine RBC 0-2 (0-2) /HPF Urine WBC 0-5 (0-5) /HPF Ur Squamous Epith Cells 0-2 (0-2) /HPF Urine Bacteria None Seen (None Seen) Hyaline Casts 0-2 (0-2) /LPF External Record Review External record reviewed: Inpatient record, Office record, Outpatient record, Prior outpatient labs, Prior outpatient radiology, Primary care record and Outside ED record Chronic Conditions Patient?s care impacted by: Other Social Determinants Patient?s care significantly limited by Social Determinants of Health including: Inadequate housing, Low income, Alcoholism and drug addiction in family, Problems related to primary support group, Unemployment, Problems related to employment and Other Social Determinant of Health Critical Care Time Critical Care Time Critical Care Time: No Discharge Plan Discharge Clinical Impression: Acute on chronic urinary retention, BPH with obstruction/lower urinary tract symptoms Patient Disposition: Home, Self-Care Instructions: Urinary Retention in Men (ED) Additional Instructions: Take your medications as prescribed. If you were prescribed antibiotics today, it is important that you take your medication to their entirety, do not skip any doses, do not finish them early. Follow-up with your primary care provider this week. Return to the emergency department with new or worsening symptoms. Such as fevers, chills, chest pain, shortness of breath, nausea, vomiting, dizziness, headache, vision changes, lethargy In case of emergency call 911 Prescriptions: No Action quetiapine 100 mg tablet 100 mg PO BEDTIME lorazepam 1 mg tablet 1 mg PO DAILY PRN (Reason: Anxiety) aripiprazole 30 mg tablet 30 mg PO DAILY quetiapine 50 mg tablet 50 mg PO BID olanzapine 10 mg tablet 10 mg PO TID tamsulosin 0.4 mg capsule 0.4 mg PO QAM 90 Days Qty: 90 0RF atorvastatin 20 mg tablet 20 mg PO QPM 90 Days Qty: 90 3RF Referrals: [facility] Urology Services [Provider Group, Urology] - 3 days Interventions: [place]-Suicide Risk Severity Scale Last Done: 03/08/25 13:53 ED Discharge Assessment Last Done: 03/08/25 16:43 Discharge Date/Time: 03/08/25 16:44 Print Language: Nigerien
--- OUTSIDE RECORDS SUMMARY | 2025-03-08 13:27 | XMS_ITS | Clinical Summary ---
Author Organization [facility] Address [address] [place] [address] Care Team Providers Care Refrigeration Mechanic Name Role Phone Ref, Has No Pcp [...] Plan (01/03/2024 10:49 AM EDT): Presented from [facility] with hyponatremia (initially 123). Also had [...] Seroquel 25 mg twice daily Presents from [facility]'s forensic unit with documented history of schizophrenia. Continue home aripiprazole 20mg daily Continue home carbamazepine 500 mg twice daily Continue home Zyprexa 15 mg nightly Continue home Seroquel 25 mg twice daily Consider psychiatry consult if concern that antipsychotic medications are causing SIADH Patient presents from [facility], requires constant observation Assessment & Plan (01/02/2024 11:43 AM EDT): Home medications: aripiprazole 20 mg daily, carbamazepine 500 mg twice daily, Zyprexa 15 mg nightly, Seroquel 25 mg twice daily Presents from [facility]'s forensic unit with documented history of schizophrenia. Continue home aripiprazole 20mg daily Continue home carbamazepine 500 mg twice daily Continue home Zyprexa 15 mg nightly Continue home Seroquel 25 mg twice daily Consider psychiatry consult if concern that antipsychotic medications are causing SIADH Patient presents from [facility], requires constant observation BPH (benign prostatic hyperplasia) 12/30/2023 Assessment & Plan (01/03/2024 2:33 PM EDT): Paperwork from the [facility] indicates history of BPH with prior need for intermittent catheterization requiring urology evaluation in the past, records not available in our system). Per documentation from [facility] patient has seen urology at [facility] in [place]. He was started on Flomax outpatient. In [...] [facility] patient has seen urology at [facility] in [place]. He was started on Flomax outpatient. In [...] series) 2040 Tobacco Screening 06/05/2042 01/29/2024 Insurance [facility] MEDICARE [facility] Advance Directives * Full Code (Latest Code Status on File) Date Activated Date Inactivated Comments 12/30/2023 7:22 PM 01/03/2024 8:48 PM * Presumed Full Code Date Activated Date Inactivated Comments 12/30/2023 7:00 PM 12/30/2023 7:22 PM Care Teams Refrigeration Mechanic Relationship Specialty Start Date End Date Ref, Has No Pcp Or DO NOT EDIT THIS RECORD VIA PROVIDER ON THE FLY PCP - General Manager Sign 12/30/23
--- OUTSIDE RECORDS SUMMARY | 2025-03-08 13:27 | XMS_ITS | Encounter Summary ---
Author Organization [facility] Address [address] [place] [address] Care Team Providers Care Car Trimmer Name Role Phone Ref, Has No Pcp Or Primary Care Provider Unavail able Encounter Details Date Type Department Care Team (Late st Contact Info) Description 01/04/2024 Community Orders [facility] EpicCare Link [address] [place] [address] Bethany Lozano, PSYCHIATRIC RN [address] [place] [address] Social History Tobacco Use Types Packs/Day Years [...] on filedocumented in this encounter Care Teams Car Trimmer Relationship Specialty Start Date End Date Ref, Has No Pcp Or DO NOT EDIT THIS RECORD VIA PROVIDER ON THE FLY PCP - General Shadowgraph Operator 12/30/23 documented as of this encounter
--- OUTSIDE RECORDS SUMMARY | 2025-03-08 13:27 | XMS_ITS | Clinical Summary ---
Author Organization [facility] Address [address] [place] [address] Phone Care Team Providers Care Hat Brim And Crown Laminating Operator Name Role Phone Dk Rodriguez MD [...] PM EDT - 03/06/2025 9:57 PM EDT [facility] Emergency [address] [place] [phone] Discharge Disposition: Home or Self Care 02/15/2025 9:21 PM EDT - 02/15/2025 9:45 PM EDT Emergency [facility] Emergency [address] [place] [phone] Encounter for Santos catheter removal (Primary Dx) Discharge Disposition: Home or Self Care 02/14/2025 8:31 PM EDT - 02/14/2025 9:27 PM EDT [facility] Emergency [address] [place] [phone] Urinary retention (Primary Dx) Discharge Disposition: Home or Self Care 02/10/2025 9:24 PM EDT - 02/10/2025 11:43 PM EDT [facility] Emergency [address] [place] [address] [place] [phone] Discharge Disposition: Home or Self Care 02/01/2025 8:58 PM EDT - 02/01/2025 10:49 PM EDT [facility] Emergency [address] [place] [phone] Discharge Disposition: Home or Self Care 01/30/2025 8:57 PM EDT - 01/31/2025 12:33 AM EDT [facility] Emergency [address] [place] [phone] Discharge Disposition: Home or Self Care 01/28/2025 9:14 PM EDT - 01/28/2025 11:28 PM EDT [facility] Emergency [address] [place] [phone] Discharge Disposition: Home or Self Care 01/14/2025 8:53 PM EDT - 01/15/2025 12:26 AM EDT [facility] Emergency [address] [place] [phone] Discharge Disposition: Home or Self Care 01/12/2025 8:45 PM EDT - 01/12/2025 11:57 PM EDT [facility] Emergency [address] [place] [phone] Dilcia Carl MD Discharge Disposition: Left Against Medical Advice from Last 3 Months Medical History Medical History Date Comments Bipolar 1 disorder ([facility] V24, [facility] V28) Mood disorder ([facility] V24) Hyperactivity of bladder Social [...] Screening 05/08/2022 Depression Screening 06/05/2024 COVID-19 Vaccine (5 - season) 2025 03/17/2023, 03/31/2021, 07/23/2020, Additional [...] on patient's age to complete this topic Insurance [address] [facility] [place] [id number] MEDICARE MEDICAID - [place] Care Teams Hat Brim And Crown Laminating Operator Relationship Specialty Start Date End Date Dk Rodriguez MD [address] [place] [address] [address] [place] PCP - General Internal Medicine 07/16/24
[2025-03-08 14:44] LABS: MANUAL DIFF FLAG NO
[2025-03-08 14:46] LABS: Hematocrit 39.2 % (42.0-52.0); Hemoglobin 13.5 g/dl (14.0-18.0); Imm Gran Abs Auto 0.02 X10*3/uL (0.00-0.03); Imm Gran Pct Auto 0.2 % (0.0-0.4); Lymphocytes Absolute Auto 1.1 X10*3/uL (1.2-4.9); Mean Corpuscular HGB Conc 34.4 g/dl (31.0-36.0); Mean Corpuscular Hemoglobin 32.1 pg (27.0-33.0); Mean Corpuscular Volume 93.1 fL (80.0-98.0); NRBC Abs Auto 0.000 X10*3/uL (0.0-0.012); NRBC Pct Auto 0.0 /100WBC (0.0-0.2); Platelet Count 155 X10*3/uL (160-400); Red Blood Count 4.21 X10*6/uL (4.60-5.80); White Blood Count 9.3 X10*3/uL (4.8-10.8)
--- NOTE | 2025-03-08 15:19 | PC.NURSE ---
total output after catheter inswertion 1500mls
[2025-03-08 15:35] LABS: Alanine Aminotransferase 18 U/L (0-40); Albumin Level 4.1 g/dL (3.5-5.0); Alkaline Phosphatase 72 U/L (39-117); Anion Gap 12 (12-20); Aspartate Amino Transferase 26 U/L (5-37); Blood Urea Nitrogen 6 mg/dL (9-16); Calcium 9.2 mg/dL (8.4-10.2); Carbon Dioxide 28 mmol/L (22-29); Chloride 108 mmol/L (96-108); Creatinine Clr Calc Pharmacy 87.1; Estimated Glomerular Filt Rate > 60; Magnesium 1.8 mg/dL (1.6-2.6); Potassium 4.2 mmol/L (3.3-5.1); Sodium 144 mmol/L (135-145); Total Protein 6.8 g/dL (6.5-8.0)
[2025-03-08 15:51] LABS: Appearance Urine Clear; Glucose Urine UA Negative (Negative); PH 7.0 (5.0-9.0); Specific Gravity - Urine <= 1.005 (1.005-1.025); UMIC TRIGGER UACC YES
--- NOTE | 2025-03-08 16:28 | PC.NURSE ---
Patient stating ready for discharge , leg bag placed, to be sent home with night bag
[2025-03-08 16:43] VITALS: BP 108/64; PULSE 93; RESP 18; TEMP 36.7; O2SAT 96
== END 2025-03-08 16:44 | disposition home or self-care (01) ==
PROVIDERS: Physician Assistant; Emergency Provider Student in an Organized Health Care Education/Training Program
DX: R33.9 Retention of urine, unspecified (principal); N40.1 Benign prostatic hyperplasia with lower urinary tract symptoms; F17.210 Nicotine dependence, cigarettes, uncomplicated; Z79.899 Other long term (current) drug therapy
CPT/HCPCS: 36415; 51702; 51798; 80053; 81001; 83735; 85025; 99283; 99285

== ENCOUNTER 2025-03-09 07:19 | Emergency (ER) | payer MEDICARE, MEDICAID, SELFPAY ==
--- OUTSIDE RECORDS SUMMARY | 2025-03-06 21:24 | XMS_ITS | Encounter Summary ---
Author Organization [facility] Address [address] [place] [address] Care Team Providers Care Dairy Quality Assurance Officer Name Role Phone Dk Rodriguez MD Primary Care Provider + [phone] Reason for Visit * Reason Comments Abdominal Pain Anxiety Encounter Details Date Type Department Care Team (Late st Contact Info) Description 03/06/2025 9:24 PM EDT - 03/06/2025 9:57 PM EDT Emergency [facility] Emergency [address] [place] [address] Discharge Disposition: Home or Self [...] on filedocumented in this encounter Care Teams Dairy Quality Assurance Officer Relationship Specialty Start Date End Date Dk Rodriguez MD [address] [place] [address] [address] [place] PCP - General Internal Medicine 07/16/24 documented as of this encounter
[2025-03-09 07:21] VITALS: BP 108/65; PULSE 116; RESP 18; TEMP 36.6; O2SAT 96
[2025-03-09 07:27] VITALS: BP 108/65; PULSE 116; RESP 18; TEMP 36.6; O2SAT 96
--- NOTE | 2025-03-09 07:29 | PC.NURSE ---
59 M presents to ED with groin pain, bladder not draining. Catheter was placed yesterday. 11/12 groin pain. Pt also requesting to see crisis because he sts they wanted him to have the catheter. A+Ox4, anxious, sts takes psych meds and flomax, did not take meds this morning, very anxious and keeps stating he wants the catheter out. Pt denies any CP or SOB. RR even and unlabored.
--- NOTE | 2025-03-09 07:35 | ED.MALEGU ---
HPI - Male Genitourinary General Chief complaint: Urogenital-Male Stated complaint: schafer cath Time Seen by Provider: 03/09/25 07:35 Source: patient Mode of arrival: ambulatory Limitations: no limitations History of Present Illness ED Provider: DR. Madison HPI Narrative: 59-year-old male history of chronic urinary retention and chronic indwelling Schafer catheter that was placed in yesterday, patient today want the Schafer catheter to be out. No dysuria, no frequency urination, no hematuria. Related Data Home Medications ?Medication ?Instructions ?Recorded ?Confirmed aripiprazole 30 mg tablet 30 mg PO DAILY 01/31/25 02/25/25 lorazepam 1 mg tablet 1 mg PO DAILY PRN Anxiety 01/31/25 02/25/25 quetiapine 100 mg tablet 100 mg PO BEDTIME 01/31/25 02/25/25 quetiapine 50 mg tablet 50 mg PO BID 01/31/25 02/25/25 olanzapine 10 mg tablet 10 mg PO TID 02/03/25 02/25/25 Previous Rx's ?Medication ?Instructions ?Recorded atorvastatin 20 mg tablet 20 mg PO QPM 90 days #90 tabs 01/10/25 tamsulosin 0.4 mg capsule 0.4 mg PO QAM 90 days #90 caps 01/10/25 Allergies Allergy/AdvReac Type Severity Reaction Status Date / Time No Known Allergies (NO KNOWN Allergy Unknown UNKNOWN Verified 03/09/25 07:22 ALLERGIES) Review of Systems Review of Systems: All other systems are reviewed and are negative Constitutional: Reports as per HPI and Reports no additional constitutional complaints Eyes: Reports as per HPI and Reports no additional eye complaints Reports system reviewed and no additional complaints, except as documented Cardiovascular: Reports as per HPI and Reports no additional cardiovascular complaints Respiratory: Reports as per HPI and Reports no additional respiratory complaints Gastrointestinal: Reports as per HPI and Reports no additional gastrointestinal complaints Genitourinary: Reports no additional female genitourinary complaints Musculoskeletal: Reports no additional musculoskeletal complaints Skin/Breast: Reports system reviewed and no additional complaints, except as docu Psychiatric: Reports no additional psychiatric complaints Endocrine: Reports no additional endocrine complaints Hematologic/Lymphatic: Reports no additional hematologic/lymphatic complaints Allergic/Immunologic: Reports no additional allergic/immunologic complaints Reports system reviewed and no additional complaints, except as documented and Reports Abnormal speech present [facility] Past Medical History Medical History Acute anxiety Smoker GERD without esophagitis Tubular adenoma of colon (~2018) Personal history of nicotine dependence Constipation Back pain Schizoaffective disorder, bipolar type Anxiety Benign prostatic hyperplasia with lower urinary tract symptoms Pure hypercholesterolemia Thought disorder Bipolar 1 disorder Mood disorder Surgical History History of colonoscopy (~04/2019) History of prostate surgery (~04/2019) History of open reduction and internal fixation (ORIF) procedure (~08/2018) Family History Family History Father Lung cancer BPH (benign prostatic hyperplasia) Mother Dementia Brother Myocardial infarction Other Mental health problem Substance abuse Social History Social History Household Members: Other Housing: Other Housing Other:: Jail Do you presently have visiting nurse or other home services: No Alcohol intake: never Patient Tobacco Use Status: Current everyday Tobacco user Tobacco use type: Cigarette Cigarette Packs Per Day: 0.5 Cigarettes Per Day: 10.0 Years Smoked: 10 Smoked in Last 30 Days: No e-Cigarette/Vaping Use: Never Used Second Hand Smoke Exposure: Yes Use of substances other than those prescribed or required for medical reasons: No Advance Directives: No Advance Directives Information Provided: Yes Do you have a plan to hurt others: No Plan service: No Current occupational status: employed and disabled Current occupation: [employer] Sexual orientation: Straight/Heterosexual Cognitive needs: No Hearing needs: No Vision needs: Yes Physical Exam Vital Signs: Vital Signs: Last Vital Signs Temp 97.9 F 03/09/25 07:27 Pulse 116 H 03/09/25 07:27 Resp 18 03/09/25 07:27 BP 108/65 03/09/25 07:27 Pulse Ox 96 03/09/25 07:27 O2 Del Method Room Air 03/09/25 07:27 BMI result Body Mass Index 20.0 Vital signs have been reviewed and appear to be correct. Blood pressure elevated. Heart rate normal. Respiratory rate normal. Temperature normal. Oxygen saturation normal. Appearance: Alert. Oriented X3. No acute distress. Head: Normal external exam. Normocephalic. Atraumatic. No Villeda signs noted. No raccoon eyes noted Eyes: PERRLA. EOMI. Conjunctiva and sclera normal. Eyelids normal. ENT: TM's Normal. Pharynx normal. Uvula midline. Moist mucous membranes. No trismus noted. No drooling noted. No muffled voice noted. Neck: Normal inspection. Neck supple. FROM. No adenopathy. Thyroid Normal. No meningeal signs. No neck mass noted. CVS: Normal heart rate and rhythm. Heart sound normal. No murmurs noted. Pulses normal throughout. Respiratory: No respiratory distress. Painless inspiration. Breath sounds normal. No wheezes/rales/rhonchi noted. Chest nontender. No accessory muscle usage noted or decreased air movement noted. Abdomen: Soft and nontender. Bowel sounds normal in all 4 quadrants. No distention noted. No organomegaly noted. No visible injury noted. Back: No CVA tenderness. Full range of motion noted. Skin: Skin warm and dry. Normal skin color. Normal skin turgor. No rashes/lesions/lacerations noted. Extremities: No lower extremity edema. Extremities exhibit normal range of motion. Extremities nontender. Neuro: Oriented X 3. Cranial nerve exam: II-XII are grossly intact No motor deficit. No sensory deficit. Reflexes normal. Course Reevaluation(s) Reevaluation #1: Chronic urinary retention issue patient with chronic indwelling Schafer catheter on and off requesting to discontinue Schafer catheter today. Time: 07:41 Medical Decision Making Differential Diagnosis Differential Diagnoses: The differential diagnosis associated with the presentation includes (Urinary retention, UTI) Admission/Observation Consideration of admission/observation: Escalation of care including admission/observation considered Discharge Plan Discharge Clinical Impression: Chronic indwelling Schafer catheter, Complication of Schafer catheter Patient Disposition: Home, Self-Care Instructions: Schafer Catheter Placement and Care (ED) Prescriptions: No Action quetiapine 100 mg tablet 100 mg PO BEDTIME lorazepam 1 mg tablet 1 mg PO DAILY PRN (Reason: Anxiety) aripiprazole 30 mg tablet 30 mg PO DAILY quetiapine 50 mg tablet 50 mg PO BID olanzapine 10 mg tablet 10 mg PO TID tamsulosin 0.4 mg capsule 0.4 mg PO QAM 90 Days Qty: 90 0RF atorvastatin 20 mg tablet 20 mg PO QPM 90 Days Qty: 90 3RF Referrals: Dk Rodriguez MD [Primary Care Provider, Internal Medicine] Print Language: [place]
--- NOTE | 2025-03-09 07:38 | PC.NURSE ---
urinary cath removed per MD instruction
--- OUTSIDE RECORDS SUMMARY | 2025-03-09 07:38 | XMS_ITS | Encounter Summary ---
Author Organization [facility] Address [address] [place] [address] Care Team Providers Care College Dean Name Role Phone Ref, Has No Pcp Or Primary Care Provider Unavail able Encounter Details Date Type Department Care Team (Late st Contact Info) Description 01/04/2024 Community Orders [facility] EpicCare Link [address] [place] [address] Bethany Lozano, CIVIL ENGINEERING PROJECT MANAGER [address] [place] [address] Social History Tobacco Use Types Packs/Day Years [...] on filedocumented in this encounter Care Teams College Dean Relationship Specialty Start Date End Date Ref, Has No Pcp Or DO NOT EDIT THIS RECORD VIA PROVIDER ON THE FLY PCP - General Rigger Up 12/30/23 documented as of this encounter
--- OUTSIDE RECORDS SUMMARY | 2025-03-09 07:38 | XMS_ITS | Clinical Summary ---
Author Organization [facility] Address [address] [place] [address] Phone Care Team Providers Care Attorney At Law Name Role Phone Dk Rdoriguez MD Primary Care Provider Allergies No known [...] PM EDT - 03/06/2025 9:57 PM EDT [facility] Emergency [address] [place] [phone] Discharge Disposition: Home or Self Care 02/15/2025 9:21 PM EDT - 02/15/2025 9:45 PM EDT Emergency [facility] Emergency [address] [place] [phone] Encounter for Santos catheter removal (Primary Dx) Discharge Disposition: Home or Self Care 02/14/2025 8:31 PM EDT - 02/14/2025 9:27 PM EDT [facility] Emergency [address] [place] [phone] Urinary retention (Primary Dx) Discharge Disposition: Home or Self Care 02/10/2025 9:24 PM EDT - 02/10/2025 11:43 PM EDT [facility] Emergency [address] [place] [address] [place] [phone] Discharge Disposition: Home or Self Care 02/01/2025 8:58 PM EDT - 02/01/2025 10:49 PM EDT [facility] Emergency [address] [place] [phone] Discharge Disposition: Home or Self Care 01/30/2025 8:57 PM EDT - 01/31/2025 12:33 AM EDT [facility] Emergency [address] [place] [phone] Discharge Disposition: Home or Self Care 01/28/2025 9:14 PM EDT - 01/28/2025 11:28 PM EDT [facility] Emergency [address] [place] [phone] Discharge Disposition: Home or Self Care 01/14/2025 8:53 PM EDT - 01/15/2025 12:26 AM EDT [facility] Emergency [address] [place] [phone] Discharge Disposition: Home or Self Care 01/12/2025 8:45 PM EDT - 01/12/2025 11:57 PM EDT [facility] Emergency [address] [place] [phone] Dilcia Carl MD Discharge Disposition: Left Against Medical Advice from Last 3 Months Medical History Medical History Date Comments Bipolar 1 disorder ([facility] V24, [facility] V28) Mood disorder ([facility] V24) Hyperactivity of bladder Social [...] age to complete this topic Insurance [facility] [place] [phone] [place]IC[place]ICAID - [place] Care Teams Attorney At Law Relationship Specialty Start Date End Date Dk Rodriguez MD [address] [place] [address] PCP - General Internal Medicine 07/16/24
--- OUTSIDE RECORDS SUMMARY | 2025-03-09 07:38 | XMS_ITS | Clinical Summary ---
Author Organization [facility] Address [address] [place] [address] Care Team Providers Care Outboard Motor Assembler Name Role Phone Ref, Has No Pcp [...] Plan (01/03/2024 2:32 PM EDT): Presents from [facility] in the setting of urinary [...] Plan (01/03/2024 10:49 AM EDT): Presented from [facility] with hyponatremia (initially 123). Also had [...] Plan (01/02/2024 11:43 AM EDT): Presents from [facility] in the setting of urinary [...] Seroquel 25 mg twice daily Presents from [facility]'s forensic unit with documented history of schizophrenia. 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 Per documentation from [facility] patient has seen urology at [facility] in [place]. He was started on Flomax outpatient. In [...] AM EDT): [facility] indicates history of BPH with prior need for intermittent catheterization requiring urology evaluation in the past, records not available in our system). Per documentation from [facility] patient has seen urology at [facility] in [place]. He was started on Flomax outpatient. In [...] series) 2040 Tobacco Screening 06/05/2042 01/29/2024 Insurance [facility] MEDICARE [facility] Advance Directives * Full Code (Latest Code Status on File) Date Activated Date Inactivated Comments 12/30/2023 7:22 PM 01/03/2024 8:48 PM * Presumed Full Code Date Activated Date Inactivated Comments 12/30/2023 7:00 PM 12/30/2023 7:22 PM Care Teams Outboard Motor Assembler Relationship Specialty Start Date End Date Ref, Has No Pcp Or DO NOT EDIT THIS RECORD VIA PROVIDER ON THE FLY PCP - General Drying Oven Attendant 12/30/23
[2025-03-09 07:50] VITALS: BP 108/65; PULSE 116; RESP 18; TEMP 36.6; O2SAT 96
== END 2025-03-09 07:50 | disposition home or self-care (01) ==
PROVIDERS: Emergency Provider Emergency Medicine; PCP Internal Medicine
DX: T83.9XXA Unspecified complication of genitourinary prosthetic device, implant and graft, initial encounter (principal); Y73.8 Miscellaneous gastroenterology and urology devices associated with adverse incidents, not elsewhere classified; Y92.9 Unspecified place or not applicable
CPT/HCPCS: 99283; 99284

== ENCOUNTER 2025-03-10 07:55 | Emergency (ER) | payer MEDICARE, MEDICAID, SELFPAY ==
--- OUTSIDE RECORDS SUMMARY | 2025-03-06 21:24 | XMS_ITS | Encounter Summary ---
Author Organization [facility] Address [address] [place] [address] Care Team Providers Care Pulp Making Plant Operator Name Role Phone Dk Rodriguez MD Primary Care Provider + [phone] Reason for Visit * Reason Comments Abdominal Pain Anxiety Encounter Details Date Type Department Care Team (Late st Contact Info) Description 03/06/2025 9:24 PM EDT - 03/06/2025 9:57 PM EDT Emergency [facility] Emergency [address] [place] [address] Discharge Disposition: Home or Self [...] PM EST documented as of this encounter Functional Status * Are you [...] Comment s Home or Self Care PT called 3x for triage, LWBS before triage. documented in this encounter Plan of Treatment Not on file documented as of this encounter Visit Diagnoses Not on filedocumented in this encounter Care Teams Pulp Making Plant Operator Relationship Specialty Start Date End Date Dk Rodriguez MD [address] [place] [address] Dr [address] [place] PCP - General Internal Medicine 07/16/24 documented as of this encounter
[2025-03-10 07:58] VITALS: BP 108/77; PULSE 105; RESP 20; TEMP 36.7; O2SAT 95; BMI 21.1
--- NOTE | 2025-03-10 08:16 | ED_ITS ---
HPI - General Adult General Chief complaint: General Medical Stated complaint: problems at home? crisis? Time Seen by Provider: 03/10/25 08:06 History of Present Illness HPI narrative: This is a 59 yo male with a past medical history of schizoaffective disorder, anxiety, and BPH with obstruction presenting to the ED today after reportedly leaving his skilled nursing at approximately 6 o'clock this morning. Patient repeatedly states, I couldnt handle it anymore, I had to leave the house , referring to the skilled nursing. He reports leaving this morning due to feeling that they weren't doing anything for him . He reports taking his prescribed medications regularly. He denies any recent altercaions, conflicts, or acute stressors at the skilled nursing. He denies any SI, HI, or hallucinations. Related Data Home Medications ?Medication ?Instructions ?Recorded ?Confirmed aripiprazole 30 mg tablet 30 mg PO DAILY 01/31/2502/04 lorazepam 1 mg tablet 1 mg PO DAILY PRN Anxiety 02/25/25 quetiapine 100 mg tablet 100 mg PO BEDTIME 01/31/25 0 02/25/25 quetiapine 50 mg tablet 50 mg PO BID 01/31/25 olanzapine 10 mg tablet 10 mg PO TID 02/03/25 Previous Rx's ?Medication ?Instructions ?Recorded atorvastatin 20 mg tablet 20 mg PO QPM 90 days #90 tab s 01/10/25 tamsulosin 0.4 mg capsule 0.4 mg PO QAM 90 days #90 ca ps 01/10/25 cefuroxime axetil 500 mg tablet 500 mg PO BID 7 days # 14 tabs 03/10/25 Allergies Allergy/AdvReac Type Severity Reaction Status Date / Time No Known Allergies (NO KNOWN Allergy Unknown UNKNOWN Verified 03/10/25 08:00 ALLERGIES) [facility] Past Medical History Medical History Acute anxiety Smoker GERD without esophagitis Tubular adenoma of colon (~2018) Personal history of nicotine dependence Constipation Back pain Schizoaffective disorder, bipolar type Anxiety Benign prostatic hyperplasia with lower urinary tract symptoms Pure hypercholesterolemia Thought disorder Bipolar 1 disorder Mood disorder Surgical History History of colonoscopy (~04/2019) History of prostate surgery (~04/2019) History of open reduction and internal fixation (ORIF) procedure (~08/2018) Family History Family History Father Lung cancer BPH (benign prostatic hyperplasia) Mother Dementia Brother Myocardial infarction Other Mental health problem Substance abuse Social History Social History Household Members: Other Housing: Other Housing Other:: Long-Term Do you presently have visiting nurse or other home services: No Alcohol intake: never Patient Tobacco Use Status: Current everyday Tobacco user Tobacco use type: Cigarette Cigarette Packs Per Day: 0.5 Cigarettes Per Day: 10.0 Years Smoked: 10 Smoked in Last 30 Days: No e-Cigarette/Vaping Use: Never Used Second Hand Smoke Exposure: Yes Use of substances other than those prescribed or required for medical reasons: No Advance Directives: No Advance Directives Information Provided: No service: No Current occupational status: employed and disabled Current occupation: [employer] Sexual orientation: Straight/Heterosexual Cognitive needs: No Hearing needs: No Vision needs: Yes Physical Exam ED Vital Signs: Vital Signs - 24 hr 03/10/25 07:58 03/10/25 11:41 Temperature 98.1 F 98.2 F Pulse Rate 105 H 81 Respiratory Rate 20 15 Blood Pressure 108/77 119/85 Pulse Oximetry 95 96 Oxygen Delivery Method Room Air Room Air BMI result Body Mass Index 21.1 Const General: awake, anxious and combative Orientation/consciousness: patient oriented x3 HENMT Head: Yes normal to inspection Resp Effort & Inspection: normal respiratory effort Auscultation: clear to auscultation bilaterally Cardio Rate: regular rate Rhythm: regular rhythm Heart sounds: S1 normal heart sound present and S2 normal heart sound present GI Palpation (GI): Soft to palpation Neuro General: patient oriented x3 Psych Affect: Anxious affect present Medications Administered Discontinued Medications Generic Name Dose Route Start Last Admin Trade Name Freq PRN Reason Stop Dose Admin Cefuroxime Axetil 500 mg 03/10/25 11:38 03/10/25 11:42 Cefuroxime Axetil 500 Mg Tablet PO 03/10/25 11:39 500 mg ONCE ONE Administration Medical Decision Making Medical Decision Making MDM Narrative: This is a 59 yo male with a past medical history of schizoaffective disorder, anxiety, and BPH with obstruction presenting to the ED after leaving his skilled nursing this morning stating he, couldn't handle it anymore . Patient denies SI, HI, or hallucinations. Mot likely diagnosis is adjustment reaction or situational distress given the patients statements regarding dissatisfaction with the skilled nursing environment and absence of acute stressors. Acute psychiatric decompensation considered but less likely at this time due to the patient denying suicidal or homicidal ideation, hallucinations, delusions, or disorganized thought process. Medication noncompliance considered but less likely as patient reports adherence to his current regimen. Substance use or intoxication considered but less likely given no indication of recent use or behavioral changes. Cognitive impairment or delirium considered but less likely given alertness, orientation, and coherent thought process. 9:00am - Labs returned CBC, CMP, ethanol, salicylate, and acetaminophen all WNL. 11:49 AM 03/10/2025 (Maritza Krishnamurthy PA-C): Patient met with the care team, no safety concerns and does not meet medical admission for psychiatric admission. Does with patient, he is agreeable for being discharged back to his skilled nursing. Patient also found to have a urinary tract infection, will start on Ceftin. Given 1st dose in the emergency department today. We will transfer patient back to the skilled nursing today. Given strict return precautions. Patient stable for discharge. Lab Data MDM Lab Attestation statement: I reviewed the patient's lab results. No leukocytosis, normocytic anemia with an H&H of 13.8/40.3, 03/10/25 08:34 03/10/25 08:34 Labs: Lab Results 03/10/25 03/10/25 Range/Units 08:34 09:06 WBC 6.5 (4.8-10.8) X10*3/uL RBC 4.29 L (4.60-5.80) X10*6/uL Hgb 13.8 L (14.0-18.0) g/dl Hct 40.3 L (42.0-52.0) % MCV 93.9 (80.0-98.0) fL MCH 32.2 (27.0-33.0) pg MCHC 34.2 (31.0-36.0) g/dl RDW 13.3 (11.0-16.0) % Plt Count 158 L (160-400) X10*3/uL MPV 10.3 (9.4-12.4) fL Immature Gran % (Auto) 0.2 (0.0-0.4) % Neut % (Auto) 68.0 (45-73) % Lymph % (Auto) 17.6 L (20-40) % Hawkins % (Auto) 9.9 (2-11) % Eos % (Auto) 3.1 (0-4) % Baso % (Auto) 1.2 (0-2) % Lymph # (Auto) 1.1 L (1.2-4.9) X10*3/uL Hawkins # (Auto) 0.6 (0.1-1.2) X10*3/uL Eos # (Auto) 0.2 (0.0-0.4) X10*3/uL Baso # (Auto) 0.1 (0.0-0.2) X10*3/uL Abs Immat Gran (auto) 0.01 (0.00-0.03) X10*3/uL Absolute Neuts (auto) 4.4 (2.0-8.3) x10*3/uL Absolute Nucleated RBC 0.000 (0.0-0.012) X10*3/uL Nucleated RBC % (auto) 0.0 (0.0-0.2) /100WBC Sodium 142 (135-145) mmol/L Potassium 4.5 (3.3-5.1) mmol/L Chloride 109 H (96-108) mmol/L Carbon Dioxide 27 (22-29) mmol/L Anion Gap 11 L (12-20) BUN 8 L (9-16) mg/dL Creatinine 0.90 (0.5-1.4) mg/dL Estim Creat Clear Calc 81.1 Estimated GFR > 60 Random Glucose 100 (60-115) mg/dL Calcium 9.0 (8.4-10.2) mg/dL Total Bilirubin 0.5 (0.0-1.0) mg/dL AST 27 (5-37) U/L ALT 20 (0-40) U/L Alkaline Phosphatase 72 (39-117) U/L Total Protein 6.7 (6.5-8.0) g/dL Albumin 4.0 (3.5-5.0) g/dL Urine Color Yellow Urine Appearance Cloudy Urine pH 6.0 (5.0-9.0) Ur Specific [place] 1.010 (1.005-1.025) Urine Protein Negative (Neg-Trace) mg/dL Urine Glucose (UA) Negative (Negative) mg/dL Urine Ketones Negative (Negative) mg/dL Urine Blood Trace H (Negative) Urine Nitrite Negative (Negative) Ur Leukocyte Esterase Large (3+) H (Negative) Urine RBC 0-2 (0-2) /HPF Urine WBC >50 H (0-5) /HPF Ur Squamous Epith Cells 0-2 (0-2) /HPF Urine Bacteria None Seen (None Seen) Hyaline Casts 0-2 (0-2) /LPF Salicylates < 5.0 L (15-30) mg/dL Urine Opiates Screen Not Detected (Not Detect) Ur Buprenorphine Scrn Not Detected (Not Detect) ng/mL Ur Oxycodone Screen Not Detected (Not Detect) ng/mL Urine Methadone Screen Not Detected (Not Detect) ng/mL Urine Fentanyl Screen Not Detected (Not Detect) Acetaminophen < 3 (<30) mcg/mL Ur Barbiturates Screen Not Detected (Not Detect) Ur Phencyclidine Scrn Not Detected (Not Detect) Ur Amphetamines Screen Not Detected (Not Detect) U Benzodiazepines Scrn Not Detected (Not Detect) Urine Cocaine Screen Not Detected (Not Detect) U Marijuana (THC) Screen Not Detected (Not Detect) Ethyl Alcohol < 10 mg/dL Discharge Plan Discharge Clinical Impression: Anxiety, Acute UTI Patient Disposition: Home, Self-Care Instructions: Anxiety (ED) Additional Instructions: You were seen in the emergency department. Your workup today was reassuring. You met with the care team and you do not meet necessity for inpatient psychiatric admission. You also appear to have a urinary tract infection. Please take prescribed antibiotic as directed. We gave you your 1st dose in the department. Drink plenty of fluids get plenty of rest. If any new or worsening symptoms occur including but not limited to worsening anxiety, fevers, chills, please seek emergent care. Prescriptions: New cefuroxime axetil 500 mg tablet 500 mg PO BID 7 Days Qty: 14 0RF No Action quetiapine 100 mg tablet 100 mg PO BEDTIME lorazepam 1 mg tablet 1 mg PO DAILY PRN (Reason: Anxiety) aripiprazole 30 mg tablet 30 mg PO DAILY quetiapine 50 mg tablet 50 mg PO BID olanzapine 10 mg tablet 10 mg PO TID tamsulosin 0.4 mg capsule 0.4 mg PO QAM 90 Days Qty: 90 0RF atorvastatin 20 mg tablet 20 mg PO QPM 90 Days Qty: 90 3RF Print Language: Cymraes
[2025-03-10 08:38] LABS: MANUAL DIFF FLAG NO
[2025-03-10 08:40] LABS: Hematocrit 40.3 % (42.0-52.0); Hemoglobin 13.8 g/dl (14.0-18.0); Imm Gran Abs Auto 0.01 X10*3/uL (0.00-0.03); Imm Gran Pct Auto 0.2 % (0.0-0.4); Lymphocytes Absolute Auto 1.1 X10*3/uL (1.2-4.9); Mean Corpuscular HGB Conc 34.2 g/dl (31.0-36.0); Mean Corpuscular Hemoglobin 32.2 pg (27.0-33.0); Mean Corpuscular Volume 93.9 fL (80.0-98.0); NRBC Abs Auto 0.000 X10*3/uL (0.0-0.012); NRBC Pct Auto 0.0 /100WBC (0.0-0.2); Platelet Count 158 X10*3/uL (160-400); Red Blood Count 4.29 X10*6/uL (4.60-5.80); White Blood Count 6.5 X10*3/uL (4.8-10.8)
[2025-03-10 08:55] LABS: Acetaminophen LAB < 3 mcg/mL (<30); Alanine Aminotransferase 20 U/L (0-40); Albumin Level 4.0 g/dL (3.5-5.0); Alkaline Phosphatase 72 U/L (39-117); Anion Gap 11 (12-20); Aspartate Amino Transferase 27 U/L (5-37); Blood Urea Nitrogen 8 mg/dL (9-16); Calcium 9.0 mg/dL (8.4-10.2); Carbon Dioxide 27 mmol/L (22-29); Chloride 109 mmol/L (96-108); Creatinine Clr Calc Pharmacy 81.1; Estimated Glomerular Filt Rate > 60; Potassium 4.5 mmol/L (3.3-5.1); Salicylate < 5.0 mg/dL (15-30); Sodium 142 mmol/L (135-145); Total Protein 6.7 g/dL (6.5-8.0)
--- OUTSIDE RECORDS SUMMARY | 2025-03-10 09:03 | XMS_ITS | Encounter Summary ---
Author Organization [facility] Address [address] [place] [address] Care Team Providers Care Milk Delivery Driver Name Role Phone Ref, Has No Pcp Or Primary Care Provider Unavail able Encounter Details Date Type Department Care Team (Late st Contact Info) Description 01/04/2024 Community Orders [facility] EpicCare Link [address] [place] [address] Bethany Lozano, WHAT JOB TITLES MEAN [address] [place] [address] Social History Tobacco Use Types Packs/Day Years [...] on filedocumented in this encounter Care Teams Milk Delivery Driver Relationship Specialty Start Date End Date Ref, Has No Pcp Or DO NOT EDIT THIS RECORD VIA PROVIDER ON THE FLY PCP - General Electromechanical Assembly Technician 12/30/23 documented as of this encounter
--- OUTSIDE RECORDS SUMMARY | 2025-03-10 09:03 | XMS_ITS | Clinical Summary ---
Author Organization [facility] Address [address] [place] [address] Phone Care Team Providers Care Head Athletic Trainer/Strength Coach Name Role Phone Dk Rodriguez MD Primary [...] PM EDT - 03/06/2025 9:57 PM EDT [facility] Emergency [address] [place] [phone] Discharge Disposition: Home or Self Care 02/15/2025 9:21 PM EDT - 02/15/2025 9:45 PM EDT Emergency [facility] Emergency [address] [place] [phone] Encounter for Santos catheter removal (Primary Dx) Discharge Disposition: Home or Self Care 02/14/2025 8:31 PM EDT - 02/14/2025 9:27 PM EDT [facility] Emergency [address] [place] [phone] Urinary retention (Primary Dx) Discharge Disposition: Home or Self Care 02/10/2025 9:24 PM EDT - 02/10/2025 11:43 PM EDT [facility] Emergency [address] [place] [address] [place] [phone] Discharge Disposition: Home or Self Care 02/01/2025 8:58 PM EDT - 02/01/2025 10:49 PM EDT [facility] Emergency [address] [place] [address] Discharge Disposition: Home or Self Care 01/30/2025 8:57 PM EDT - 01/31/2025 12:33 AM EDT [facility] Emergency [address] [place] [phone] Discharge Disposition: Home or Self Care 01/28/2025 9:14 PM EDT - 01/28/2025 11:28 PM EDT [facility] Emergency [address] [place] [phone] Discharge Disposition: Home or Self Care 01/14/2025 8:53 PM EDT - 01/15/2025 12:26 AM EDT [facility] Emergency [address] [place] [phone] Discharge Disposition: Home or Self Care 01/12/2025 8:45 PM EDT - 01/12/2025 11:57 PM EDT [facility] Emergency [address] [place] [phone] Dilcia Carl MD Discharge Disposition: Left Against Medical Advice from Last 3 Months Medical History Medical History Date Comments Bipolar 1 disorder ([facility] V24, [facility] V28) Mood disorder ([facility] V24) Hyperactivity [...] age to complete this topic Insurance [id number] [place] [id number] [place]IC[place] MEDICAID - [place] Care Teams Head Athletic Trainer/Strength Coach Relationship Specialty Start Date End Date Dk Rodriguez MD [address] [place] [address] Jackie [address] Marvell MD PCP - General Internal Medicine 07/16/24
--- OUTSIDE RECORDS SUMMARY | 2025-03-10 09:03 | XMS_ITS | Clinical Summary ---
Author Organization [facility] Address [address] [place] [address] Care Team Providers Care Multi Media Specialist Name Role Phone Ref, Has No [...] Plan (01/03/2024 2:32 PM EDT): Presents from [facility] in the setting of urinary [...] Plan (01/03/2024 10:49 AM EDT): Presented from [facility] with hyponatremia (initially 123). Also had [...] Plan (01/02/2024 11:43 AM EDT): Presents from [facility] in the setting of urinary [...] Seroquel 25 mg twice daily Presents from [facility]'s forensic unit with documented history of schizophrenia. Continue home aripiprazole 20mg daily Continue home carbamazepine 500 mg twice daily Continue home Zyprexa 15 mg nightly Continue home Seroquel 25 mg twice daily Consider psychiatry consult if concern that antipsychotic medications are causing SIADH Patient presents from [facility], requires constant observation Assessment & Plan (01/02/2024 11:43 AM EDT): Home medications: aripiprazole 20 mg daily, carbamazepine 500 mg twice daily, Zyprexa 15 mg nightly, Seroquel 25 mg twice daily Presents from [facility]'s forensic unit with documented history of schizophrenia. Continue home aripiprazole 20mg daily Continue home carbamazepine 500 mg twice daily Continue home Zyprexa 15 mg nightly Continue home Seroquel 25 mg twice daily Consider psychiatry consult if concern that antipsychotic medications are causing SIADH Patient presents from [facility], requires constant observation BPH (benign prostatic hyperplasia) 12/30/2023 Assessment & Plan (01/03/2024 2:33 PM EDT): [facility] of [facility]PH with prior need for intermittent catheterization requiring urology evaluation in the past, records not available in our system). Per documentation from [facility] patient has seen urology at [facility] in [place]. He was started on Flomax outpatient. In [...] (01/02/2024 11:43 AM EDT): Paperwork from the [facility] indicates history of BPH with prior need for intermittent catheterization requiring urology evaluation in the past, records not available in our system). Per documentation from [facility] patient has seen urology at [facility] in [place]. He was started on Flomax outpatient. In [...] series) 2040 Tobacco Screening 06/05/2042 01/29/2024 Insurance [facility] MEDICARE [facility] Advance Directives * Full Code (Latest Code Status on File) Date Activated Date Inactivated Comments 12/30/2023 7:22 PM 01/03/2024 8:48 PM * Presumed Full Code Date Activated Date Inactivated Comments 12/30/2023 7:00 PM 12/30/2023 7:22 PM Care Teams Multi Media Specialist Relationship Specialty Start Date End Date Ref, Has No Pcp Or DO NOT EDIT THIS RECORD VIA PROVIDER ON THE FLY PCP - General Environmental Technology Professor 12/30/23
[2025-03-10 09:12] LABS: Appearance Urine Cloudy; Glucose Urine UA Negative (Negative); PH 6.0 (5.0-9.0); Specific Gravity - Urine 1.010 (1.005-1.025); UMIC TRIGGER UA YES
[2025-03-10 09:21] LABS: Cannabinoid Screen Urine Not Detected (Not Detect)
[2025-03-10 11:41] VITALS: BP 119/85; PULSE 81; RESP 15; TEMP 36.8; O2SAT 96
--- NOTE | 2025-03-10 11:46 | PC.NURSE ---
belongings retrieved from [facility]/provided to pt. pt will be d/c'd w/ transport arranged via care team.
[2025-03-10 12:04] VITALS: BP 119/85; PULSE 81; RESP 15; TEMP 36.8; O2SAT 96
== END 2025-03-10 12:04 | disposition home or self-care (01) ==
PROVIDERS: Physician Assistant Medical; Emergency Provider Emergency Medicine; PCP Internal Medicine
DX: F41.9 Anxiety disorder, unspecified (principal); N39.0 Urinary tract infection, site not specified; Z79.899 Other long term (current) drug therapy
CPT/HCPCS: 36415; 80053; 80143; 80179; 80307; 81001; 85025; 99284; S9485

== ENCOUNTER 2025-03-12 12:50 | Emergency (ER) | payer MEDICARE, MEDICAID, SELFPAY ==
[2025-03-12 13:08] VITALS: BP 120/84; PULSE 99; RESP 20; TEMP 36.6; O2SAT 96; BMI 21.1
--- NOTE | 2025-03-12 13:08 | ED.GENADULT ---
HPI - General Adult General Chief complaint: Anxiety Stated complaint: got sick at day program Related Data Home Medications ?Medication ?Instructions ?Recorded ?Confirmed aripiprazole 30 mg tablet 30 mg PO DAILY 01/31/25 02/25/25 lorazepam 1 mg tablet 1 mg PO DAILY PRN Anxiety 01/31/25 02/25/25 quetiapine 100 mg tablet 100 mg PO BEDTIME 01/31/25 02/25/25 quetiapine 50 mg tablet 50 mg PO BID 01/31/25 02/25/25 olanzapine 10 mg tablet 10 mg PO TID 02/03/25 02/25/25 Previous Rx's ?Medication ?Instructions ?Recorded atorvastatin 20 mg tablet 20 mg PO QPM 90 days #90 tabs 01/10/25 tamsulosin 0.4 mg capsule 0.4 mg PO QAM 90 days #90 caps 01/10/25 cefuroxime axetil 500 mg tablet 500 mg PO BID 7 days #14 tabs 03/10/25 Allergies Allergy/AdvReac Type Severity Reaction Status Date / Time No Known Allergies (NO KNOWN Allergy Unknown UNKNOWN Verified 03/15/25 18:12 ALLERGIES) [facility] Past Medical History Medical History Acute anxiety Smoker GERD without esophagitis Tubular adenoma of colon (~2018) Personal history of nicotine dependence Constipation Back pain Schizoaffective disorder, bipolar type Anxiety Benign prostatic hyperplasia with lower urinary tract symptoms Pure hypercholesterolemia Thought disorder Bipolar 1 disorder Mood disorder Surgical History History of colonoscopy (~04/2019) History of prostate surgery (~04/2019) History of open reduction and internal fixation (ORIF) procedure (~08/2018) Family History Family History Father Lung cancer BPH (benign prostatic hyperplasia) Mother Dementia Brother Myocardial infarction Other Mental health problem Substance abuse Social History Social History Household Members: Other Housing: Other Housing Other:: Long Term Do you presently have visiting nurse or other home services: No Alcohol intake: never Patient Tobacco Use Status: Current everyday Tobacco user Tobacco use type: Cigarette Cigarette Packs Per Day: 0.5 Cigarettes Per Day: 10.0 Years Smoked: 10 e-Cigarette/Vaping Use: Never Used Second Hand Smoke Exposure: Yes Advance Directives: No Advance Directives Information Provided: Yes Do you have a plan to hurt others: No Plan service: No Current occupational status: employed and disabled Current occupation: [employer] Sexual orientation: Straight/Heterosexual Cognitive needs: No Hearing needs: No Vision needs: Yes Physical Exam ED Vital Signs: BMI result Body Mass Index 21.1 Course Course Course Narrative: This is a rapid medical exam performed by Walter Crawford NP: Additional HPI, ROS, PE not included below will be deferred to primary provider. Patient is a 59y/o M with pmhx CAUTI, GERD, schizoaffective d/o, AUD presenting from day program with complaint of heart racing as well as lower abdominal pain. Denies current chest pain. Plan: Labs, EKG, UA Patient left the emergency department before myself or any of the other clinicians could review or explain physical exam findings, test results, need or lack there of for additional testing, treatment options, or a treatment plan. Medical Decision Making Lab Data 03/12/25 13:22 03/12/25 13:22 Labs: Lab Results 03/12/25 Range/Units 13:22 WBC 9.9 (4.8-10.8) X10*3/uL RBC 4.07 L (4.60-5.80) X10*6/uL Hgb 13.0 L (14.0-18.0) g/dl Hct 37.5 L (42.0-52.0) % MCV 92.1 (80.0-98.0) fL MCH 31.9 (27.0-33.0) pg MCHC 34.7 (31.0-36.0) g/dl RDW 13.0 (11.0-16.0) % Plt Count 151 L (160-400) X10*3/uL MPV 10.3 (9.4-12.4) fL Immature Gran % (Auto) 0.4 (0.0-0.4) % Neut % (Auto) 77.7 H (45-73) % Lymph % (Auto) 12.6 L (20-40) % Love % (Auto) 7.9 (2-11) % Eos % (Auto) 0.7 (0-4) % Baso % (Auto) 0.7 (0-2) % Lymph # (Auto) 1.3 (1.2-4.9) X10*3/uL Love # (Auto) 0.8 (0.1-1.2) X10*3/uL Eos # (Auto) 0.1 (0.0-0.4) X10*3/uL Baso # (Auto) 0.1 (0.0-0.2) X10*3/uL Abs Immat Gran (auto) 0.04 H (0.00-0.03) X10*3/uL Absolute Neuts (auto) 7.7 (2.0-8.3) x10*3/uL Absolute Nucleated RBC 0.000 (0.0-0.012) X10*3/uL Nucleated RBC % (auto) 0.0 (0.0-0.2) /100WBC Sodium 139 (135-145) mmol/L Potassium 3.8 (3.3-5.1) mmol/L Chloride 111 H (96-108) mmol/L Carbon Dioxide 23 (22-29) mmol/L Anion Gap 9 L (12-20) BUN 11 (9-16) mg/dL Creatinine 0.68 (0.5-1.4) mg/dL Estim Creat Clear Calc 107.3 Estimated GFR > 60 Random Glucose 161 H (60-115) mg/dL Calcium 8.8 (8.4-10.2) mg/dL Total Bilirubin 0.4 (0.0-1.0) mg/dL AST 19 (5-37) U/L ALT 13 (0-40) U/L Alkaline Phosphatase 75 (39-117) U/L Total Protein 6.4 L (6.5-8.0) g/dL Albumin 3.8 (3.5-5.0) g/dL Discharge Plan Discharge Clinical Impression: Anxiety Patient Disposition: Left W/O Completing Treatment Prescriptions: No Action quetiapine 100 mg tablet 100 mg PO BEDTIME lorazepam 1 mg tablet 1 mg PO DAILY PRN (Reason: Anxiety) aripiprazole 30 mg tablet 30 mg PO DAILY quetiapine 50 mg tablet 50 mg PO BID olanzapine 10 mg tablet 10 mg PO TID cefuroxime axetil 500 mg tablet 500 mg PO BID 7 Days Qty: 14 0RF tamsulosin 0.4 mg capsule 0.4 mg PO QAM 90 Days Qty: 90 0RF atorvastatin 20 mg tablet 20 mg PO QPM 90 Days Qty: 90 3RF Discharge Date/Time: 03/12/25 18:11
--- NOTE | 2025-03-12 13:09 | ECG_ITS ---
Test Reason : CP Blood Pressure : */* mmHG Vent. Rate : 88 BPM Atrial Rate : 88 BPM P-R Int : 126 ms QRS Dur : 82 ms QT Int : 340 ms P-R-T Axes : 73 -2 33 degrees QTcB Int : 411 ms Normal sinus rhythm Right atrial enlargement Borderline ECG When compared with ECG of 23-Feb-2025 19:51, No significant change was found Referred By: Cyndi Crawford Electronically Signed By: RACHEAL VILLAFANA MD
[2025-03-12 13:27] LABS: MANUAL DIFF FLAG NO
[2025-03-12 13:28] LABS: Hematocrit 37.5 % (42.0-52.0); Hemoglobin 13.0 g/dl (14.0-18.0); Imm Gran Abs Auto 0.04 X10*3/uL (0.00-0.03); Imm Gran Pct Auto 0.4 % (0.0-0.4); Lymphocytes Absolute Auto 1.3 X10*3/uL (1.2-4.9); Mean Corpuscular HGB Conc 34.7 g/dl (31.0-36.0); Mean Corpuscular Hemoglobin 31.9 pg (27.0-33.0); Mean Corpuscular Volume 92.1 fL (80.0-98.0); NRBC Abs Auto 0.000 X10*3/uL (0.0-0.012); NRBC Pct Auto 0.0 /100WBC (0.0-0.2); Platelet Count 151 X10*3/uL (160-400); Red Blood Count 4.07 X10*6/uL (4.60-5.80); White Blood Count 9.9 X10*3/uL (4.8-10.8)
[2025-03-12 13:43] LABS: Alanine Aminotransferase 13 U/L (0-40); Albumin Level 3.8 g/dL (3.5-5.0); Alkaline Phosphatase 75 U/L (39-117); Anion Gap 9 (12-20); Aspartate Amino Transferase 19 U/L (5-37); Blood Urea Nitrogen 11 mg/dL (9-16); Calcium 8.8 mg/dL (8.4-10.2); Carbon Dioxide 23 mmol/L (22-29); Chloride 111 mmol/L (96-108); Creatinine Clr Calc Pharmacy 107.3; Estimated Glomerular Filt Rate > 60; Potassium 3.8 mmol/L (3.3-5.1); Sodium 139 mmol/L (135-145); Total Protein 6.4 g/dL (6.5-8.0)
== END 2025-03-12 18:11 | disposition left against medical advice (07) ==
PROVIDERS: Registered Nurse Emergency; Emergency Provider Emergency Medicine; PCP Internal Medicine
DX: F41.9 Anxiety disorder, unspecified (principal); Z53.21 Procedure and treatment not carried out due to patient leaving prior to being seen by health care provider
CPT/HCPCS: 36415; 80053; 85025; 93005; 99283

== ENCOUNTER → 2025-03-12 13:09 | Outpatient (BNV) | payer MEDICARE, MEDICAID, SELFPAY | PROVIDERS: PCP Internal Medicine; Visit Provider Internal Medicine Cardiovascular Disease | DX: I51.7 Cardiomegaly (principal) | CPT/HCPCS: 93010 ==

== ENCOUNTER 2025-03-13 20:32 | Emergency (ER) | payer MEDICARE, MEDICAID, SELFPAY ==
[2025-03-13 20:55] VITALS: BP 143/73; PULSE 102; RESP 20; TEMP 37; O2SAT 96; BMI 20.1
--- OUTSIDE RECORDS SUMMARY | 2025-03-13 23:26 | XMS_ITS | Clinical Summary ---
Author Organization [facility] Address [address] [place] [address] Care Team Providers Care Social Work Instructor Name Role Phone Ref, Has No [...] Plan (01/03/2024 2:32 PM EDT): Presents from [facility] in the setting of urinary [...] Plan (01/03/2024 10:49 AM EDT): Presented from [facility] with hyponatremia (initially 123). Also [...] Plan (01/02/2024 11:43 AM EDT): Presents from [facility] in the setting of urinary [...] Seroquel 25 mg twice daily Presents from [facility]'s forensic unit with documented history of schizophrenia. Continue home aripiprazole 20mg daily Continue home carbamazepine 500 mg twice daily Continue home Zyprexa 15 mg nightly Continue home Seroquel 25 mg twice daily Consider psychiatry consult if concern that antipsychotic medications are causing SIADH Patient presents from [facility], requires constant observation Assessment & Plan (01/02/2024 11:43 AM EDT): Home medications: aripiprazole 20 mg daily, carbamazepine 500 mg twice daily, Zyprexa 15 mg nightly, Seroquel 25 mg twice daily Presents from [facility]'s forensic unit with documented history of schizophrenia. Continue home aripiprazole 20mg daily Continue home carbamazepine 500 mg twice daily Continue home Zyprexa 15 mg nightly Continue home Seroquel 25 mg twice daily Consider psychiatry consult if concern that antipsychotic medications are causing SIADH Patient presents from [facility], requires constant observation BPH (benign prostatic hyperplasia) 12/30/2023 Assessment & Plan (01/03/2024 2:33 PM EDT): Paperwork from the [facility] center indicates history of BPH with prior need for intermittent catheterization requiring urology evaluation in the past, records not available in our system). Per documentation from [facility] patient has seen urology at [facility] in [place]. He was started on Flomax outpatient. In [...] (01/02/2024 11:43 AM EDT): Paperwork from the [facility] indicates history of BPH with prior need for intermittent catheterization requiring urology evaluation in the past, records not available in our system). Per documentation from [facility] patient has seen urology at [facility] in [place]. He was started on Flomax outpatient. In [...] series) 2040 Tobacco Screening 06/05/2042 01/29/2024 Insurance [facility] MEDIC[facility] Advance Directives * Full Code (Latest Code Status on File) Date Activated Date Inactivated Comments 12/30/2023 7:22 PM 01/03/2024 8:48 PM * Presumed Full Code Date Activated Date Inactivated Comments 12/30/2023 7:00 PM 12/30/2023 7:22 PM Care Teams Social Work Instructor Relationship Specialty Start Date End Date Ref, Has No Pcp Or DO NOT EDIT THIS RECORD VIA PROVIDER ON THE FLY PCP - General Seasonal Customer Service Associate 12/30/23
--- OUTSIDE RECORDS SUMMARY | 2025-03-13 23:26 | XMS_ITS | Encounter Summary ---
Author Organization [facility] Address [address] [place] [address] Care Team Providers Care Machine Shop Repair Technician Name Role Phone Ref, Has No Pcp Or Primary Care Provider Unavail able Encounter Details Date Type Department Care Team (Late st Contact Info) Description 01/04/2024 Community Orders [facility] EpicCare Link [address] [place] [address] Bethany Lozano, BRADDER [address] [place] [address] Social History Tobacco Use Types Packs/Day Years [...] filedocumented in this encounter Care Teams Machine Shop Repair Technician Relationship Specialty Start Date End Date Ref, Has No Pcp Or DO NOT EDIT THIS RECORD VIA PROVIDER ON THE FLY PCP - General Manager Process Excellence 12/30/23 documented as of this encounter
== END 2025-03-13 23:36 | disposition left against medical advice (07) ==
LOC: HO.ED 23:23
PROVIDERS: Emergency Provider Emergency Medicine
DX: Z53.29 Procedure and treatment not carried out because of patient's decision for other reasons (principal)
CPT/HCPCS: 99281

== ENCOUNTER 2025-03-14 20:43 | Emergency (ER) | payer MEDICARE, MEDICAID, SELFPAY ==
--- NOTE | 2025-03-14 | ECG_ITS ---
Test Reason : PALPATATIONS Blood Pressure : */* mmHG Vent. Rate : 76 BPM Atrial Rate : 76 BPM P-R Int : 134 ms QRS Dur : 80 ms QT Int : 368 ms P-R-T Axes : 80 36 38 degrees QTcB Int : 414 ms Normal sinus rhythm Normal ECG When compared with ECG of 12-Mar-2025 13:18, No significant change was found Referred By: Generic ED Physician Electronically Signed By: RACHEAL VILLAFANA MD
[2025-03-14 20:53] VITALS: BP 105/70; PULSE 92; RESP 18; TEMP 36.5; O2SAT 97; BMI 21.1
--- OUTSIDE RECORDS SUMMARY | 2025-03-14 21:21 | XMS_ITS | Clinical Summary ---
Author Organization [facility] Address [address] [place] [address] Care Team Providers Care Impregnation Operator Name Role Phone Ref, Has No [...] Plan (01/03/2024 2:32 PM EDT): Presents from [facility] in the setting of urinary [...] Plan (01/03/2024 10:49 AM EDT): Presented from [facility] with hyponatremia (initially 123). Also [...] Plan (01/02/2024 11:43 AM EDT): Presents from [facility] in the setting of urinary [...] Seroquel 25 mg twice daily Presents from [facility]'s forensic unit with documented history of schizophrenia. 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 Continue home aripiprazole 20mg daily Continue home carbamazepine 500 mg twice daily Continue home Zyprexa 15 mg nightly Continue home Seroquel 25 mg twice daily Consider psychiatry consult if concern that antipsychotic medications are causing SIADH Patient presents from [facility], requires constant observation BPH (benign prostatic hyperplasia) 12/30/2023 Assessment & Plan (01/03/2024 2:33 PM EDT): Paperwork from the [facility] center indicates history of BPH with prior need for intermittent catheterization requiring urology evaluation in the past, records not available in our system). Per documentation from [facility] patient has seen urology at [facility] in [place]. He was started on Flomax outpatient. In the ED a Schafre was placed. No evidence of HOMA on [...] (01/02/2024 11:43 AM EDT): Paperwork from the [facility] indicates history of BPH with prior need for intermittent catheterization requiring urology evaluation in the past, records not available in our system). Per documentation from [facility] patient has seen urology at [facility] in [place]. He was started on Flomax outpatient. In [...] series) 2040 Tobacco Screening 06/05/2042 01/29/2024 Insurance [facility]IC[facility] Advance Directives * Full Code (Latest Code Status on File) Date Activated Date Inactivated Comments 12/30/2023 7:22 PM 01/03/2024 8:48 PM * Presumed Full Code Date Activated Date Inactivated Comments 12/30/2023 7:00 PM 12/30/2023 7:22 PM Care Teams Impregnation Operator Relationship Specialty Start Date End Date Ref, Has No Pcp Or DO NOT EDIT THIS RECORD VIA PROVIDER ON THE FLY PCP - General Marketing Programs Specialist 12/30/23
--- OUTSIDE RECORDS SUMMARY | 2025-03-14 21:21 | XMS_ITS | Encounter Summary ---
Author Organization [facility] Address [address] [place] [address] Care Team Providers Care Proposal Manager Writer Name Role Phone Ref, Has No Pcp Or Primary Care Provider Unavail able Encounter Details Date Type Department Care Team (Late st Contact Info) Description 01/04/2024 Community Orders [facility] EpicCare Link [address] [place] [address] Bethany Lozano, GRINDER BRAKE LINING [address] [place] [address] Social History Tobacco Use Types Packs/Day Years [...] on filedocumented in this encounter Care Teams Proposal Manager Writer Relationship Specialty Start Date End Date Ref, Has No Pcp Or DO NOT EDIT THIS RECORD VIA PROVIDER ON THE FLY PCP - General Band And Cuff Cutter 12/30/23 documented as of this encounter
--- NOTE | 2025-03-14 21:42 | ED.GENADULT ---
HPI - General Adult General Chief complaint: General Medical Stated complaint: Left [facility] Time Seen by Provider: 03/14/25 21:32 Source: patient Limitations: no limitations History of Present Illness ED Provider: Samantha Santos PA-C HPI narrative: 59-year-old male with a history of schizoaffective disorder, bipolar type, anxiety, mood disorder, BPH who require self catheterization, Who presents with urinary retention and palpitations. Patient thinks there was an issue with the his room , that has making his palpitations occur. Related Data Home Medications ?Medication ?Instructions ?Recorded ?Confirmed aripiprazole 30 mg tablet 30 mg PO DAILY 01/31/25 02/25/25 lorazepam 1 mg tablet 1 mg PO DAILY PRN Anxiety 01/31/25 02/25/25 quetiapine 100 mg tablet 100 mg PO BEDTIME 01/31/25 02/25/25 quetiapine 50 mg tablet 50 mg PO BID 01/31/25 02/25/25 olanzapine 10 mg tablet 10 mg PO TID 02/03/25 02/25/25 Previous Rx's ?Medication ?Instructions ?Recorded atorvastatin 20 mg tablet 20 mg PO QPM 90 days #90 tabs 01/10/25 tamsulosin 0.4 mg capsule 0.4 mg PO QAM 90 days #90 caps 01/10/25 cefuroxime axetil 500 mg tablet 500 mg PO BID 7 days #14 tabs 03/10/25 Allergies Allergy/AdvReac Type Severity Reaction Status Date / Time No Known Allergies (NO KNOWN Allergy Unknown UNKNOWN Verified 03/14/25 20:56 ALLERGIES) Review of Systems Review of Systems: Yes all other systems are reviewed and are negative Constitutional: Constitutional: Denies fatigue and Denies fever(s) Cardiovascular: Cardiovascular: Denies chest pain, Reports palpitations and Denies dyspnea Respiratory: Respiratory: Denies dyspnea Gastrointestinal: Gastrointestinal: Denies abdominal pain Endocrine: Endocrine: Denies fatigue and Reports palpitations PMF Past Medical History Attestation statement: The following information was validated with the patient. Medical History Acute anxiety Smoker GERD without esophagitis Tubular adenoma of colon (~2019) Personal history of nicotine dependence Constipation Back pain Schizoaffective disorder, bipolar type Anxiety Benign prostatic hyperplasia with lower urinary tract symptoms Pure hypercholesterolemia Thought disorder Bipolar 1 disorder Mood disorder Surgical History History of colonoscopy (~04/2019) History of prostate surgery (~04/2019) History of open reduction and internal fixation (ORIF) procedure (~08/2018) Family History Family History Father Lung cancer BPH (benign prostatic hyperplasia) Mother Dementia Brother Myocardial infarction Other Mental health problem Substance abuse Social History Social History Household Members: Other Housing: Other Housing Other:: Intermediate Do you presently have visiting nurse or other home services: No Alcohol intake: never Patient Tobacco Use Status: Current everyday Tobacco user Tobacco use type: Cigarette Cigarette Packs Per Day: 0.5 Cigarettes Per Day: 10.0 Years Smoked: 10 e-Cigarette/Vaping Use: Never Used Second Hand Smoke Exposure: Yes Advance Directives: No Advance Directives Information Provided: No service: No Current occupational status: employed and disabled Current occupation: [employer] Sexual orientation: Straight/Heterosexual Cognitive needs: No Hearing needs: No Vision needs: Yes Physical Exam ED Vital Signs: Vital Signs - 24 hr 03/14/25 20:53 03/14/25 21:48 Temperature 97.7 F 97.7 F Pulse Rate 92 92 Respiratory Rate 18 18 Blood Pressure 105/70 105/70 Pulse Oximetry 97 97 Oxygen Delivery Method Room Air Room Air BMI result Body Mass Index 21.1 Const Other: alert Orientation/consciousness: patient oriented x3 Resp Effort & Inspection: normal respiratory effort Cardio Other: normal peripheral perfusion Skin Other: warm dry no rash Neuro General: patient oriented x3, gait normal, no focal motor deficits and CN's II-XI intact bilaterally Psych Other: cooperative flat affect Medical Decision Making Medical Decision Making MDM Narrative: 59-year-old male with a history of schizoaffective disorder, bipolar type, anxiety, mood disorder, BPH who require self catheterization, Who presents with urinary retention and palpitations. Patient thinks there was an issue with the his room , that has making his palpitations occur. Problem: Psychiatric illness, known BPH who self catheterizes History: Per patient I have considered the following differential diagnoses: Palpitations, urinary retention, malingering, secondary gain Plan: Patient frequently presents to the emergency room requesting to be catheterized. The patient exhibits hypersexual behavior, he has been told there was no indication for staff to catheterize him. We will obtain a bladder scan. In regard to the palpitations, he is not having palpitations the EKG is normal. He can follow up with primary care. I have independently reviewed the following tests: bladder scan a bit over 300, EKG: Normal sinus rhythm, rate of 76, no ischemic changes no ectopy QTC 414 Differential Diagnosis Differential Diagnoses: The differential diagnosis associated with the presentation includes see medical decision-making Admission/Observation Consideration of admission/observation: Escalation of care including admission/observation considered not applicable Radiology Impression Discussion of test interpretation with radiology: I have reviewed the radiologist's reading. Discharge Plan Discharge Clinical Impression: Urinary retention, Heart palpitations Patient Disposition: Home, Self-Care Instructions: Heart Palpitations (ED), Urinary Retention in Men (ED) Additional Instructions: you were not retaining a significant amount of urine in the bladder, you can go home and straight catheterized yourself, as you do on a regular basis. Follow up with primary care as needed. there was no evidence of palpitations on your EKG, if your symptoms persist, you need to follow up with your primary care provider for a Holter monitor trial, this is not something that we can do for you in the emergency room. Prescriptions: No Action quetiapine 100 mg tablet 100 mg PO BEDTIME lorazepam 1 mg tablet 1 mg PO DAILY PRN (Reason: Anxiety) aripiprazole 30 mg tablet 30 mg PO DAILY quetiapine 50 mg tablet 50 mg PO BID olanzapine 10 mg tablet 10 mg PO TID cefuroxime axetil 500 mg tablet 500 mg PO BID 7 Days Qty: 14 0RF tamsulosin 0.4 mg capsule 0.4 mg PO QAM 90 Days Qty: 90 0RF atorvastatin 20 mg tablet 20 mg PO QPM 90 Days Qty: 90 3RF Interventions: ED Discharge Assessment Last Done: 03/14/25 21:48 Discharge Date/Time: 03/14/25 21:50 Print Language: Palestinian
[2025-03-14 21:48] VITALS: BP 105/70; PULSE 92; RESP 18; TEMP 36.5; O2SAT 97
== END 2025-03-14 21:50 | disposition home or self-care (01) ==
PROVIDERS: Emergency Provider Emergency Medicine
DX: R33.9 Retention of urine, unspecified (principal); R00.2 Palpitations; Z79.899 Other long term (current) drug therapy; F17.210 Nicotine dependence, cigarettes, uncomplicated
CPT/HCPCS: 51798; 93005; 99283; 99284

== ENCOUNTER → 2025-03-14 21:06 | Outpatient (BNV) | payer MEDICARE, MEDICAID, SELFPAY | PROVIDERS: Emergency Provider Emergency Medicine; Visit Provider Internal Medicine Cardiovascular Disease | DX: R00.2 Palpitations (principal) | CPT/HCPCS: 93010 ==

== ENCOUNTER 2025-03-15 18:07 | Emergency (ER) | payer MEDICARE, MEDICAID, SELFPAY ==
[2025-03-15 18:09] VITALS: BP 131/73; PULSE 97; RESP 15; TEMP 36.7; O2SAT 96; BMI 20.7
--- NOTE | 2025-03-15 18:12 | ED.PSYCH ---
HPI - Psych General Chief Complaint: Psychiatric Symptoms Stated Complaint: SI Time Seen by Provider: 03/15/25 18:35 Source: patient Mode of arrival: ambulatory Limitations: no limitations History of Present Illness ED Provider: Fozia Jordan PA-C HPI Narrative: Patient is a 59 year old assigned male at with a history of BPH, chronic suprapubic pain, GERD, HLD, and schizoaffective disorder presenting to the emergency department today wanting to discuss his [facility] living conditions. Patient states that his [facility] is being difficult about him getting into his kitchen whenever he wants. Patient denies any other complaints at this time. Patient denies any thoughts of hurting himself or others. Related Data Home Medications ?Medication ?Instructions ?Recorded ?Confirmed aripiprazole 30 mg tablet 30 mg PO DAILY 01/31/25 02/25/25 lorazepam 1 mg tablet 1 mg PO DAILY PRN Anxiety 01/31/25 02/25/25 quetiapine 100 mg tablet 100 mg PO BEDTIME 01/31/25 02/25/25 quetiapine 50 mg tablet 50 mg PO BID 01/31/25 02/25/25 olanzapine 10 mg tablet 10 mg PO TID 02/03/25 02/25/25 Previous Rx's ?Medication ?Instructions ?Recorded atorvastatin 20 mg tablet 20 mg PO QPM 90 days #90 tabs 01/10/25 tamsulosin 0.4 mg capsule 0.4 mg PO QAM 90 days #90 caps 01/10/25 cefuroxime axetil 500 mg tablet 500 mg PO BID 7 days #14 tabs 03/10/25 Allergies Allergy/AdvReac Type Severity Reaction Status Date / Time No Known Allergies (NO KNOWN Allergy Unknown UNKNOWN Verified 03/15/25 18:12 ALLERGIES) Review of Systems Constitutional: Constitutional: Reports as per HPI Eyes: Eyes: Reports as per HPI ENT: Reports as per HPI Cardiovascular: Cardiovascular: Reports as per HPI Respiratory: Respiratory: Reports as per HPI Gastrointestinal: Gastrointestinal: Reports as per HPI Genitourinary: Genitourinary: Reports as per HPI Musculoskeletal: Musculoskeletal: Reports as per HPI Integumentary/Breasts: Skin/Breast: Reports as per HPI Neurologic: Reports as per HPI Psychiatric: Psychiatric: Reports as per HPI Endocrine: Endocrine: Reports as per HPI Hematologic/Lymphatic: Hematologic/Lymphatic: Reports as per HPI Allergic/Immunologic: Allergic/Immunologic: Reports as per HPI [facility] Past Medical History Attestation statement: The following information was validated with the patient. Source: old records reviewed and nursing notes reviewed Medical History Acute anxiety Smoker GERD without esophagitis Tubular adenoma of colon (~2018) Personal history of nicotine dependence Constipation Back pain Schizoaffective disorder, bipolar type Anxiety Benign prostatic hyperplasia with lower urinary tract symptoms Pure hypercholesterolemia Thought disorder Bipolar 1 disorder Mood disorder Surgical History History of colonoscopy (~04/2019) History of prostate surgery (~04/2019) History of open reduction and internal fixation (ORIF) procedure (~08/2018) Family History Family History Father Lung cancer BPH (benign prostatic hyperplasia) Mother Dementia Brother Myocardial infarction Other Mental health problem Substance abuse Social History Social History Household Members: Other Housing: Other Housing Other:: Skilled Nursing Do you presently have visiting nurse or other home services: No Alcohol intake: never Patient Tobacco Use Status: Current everyday Tobacco user Tobacco use type: Cigarette Cigarette Packs Per Day: 0.5 Cigarettes Per Day: 10.0 Years Smoked: 10 e-Cigarette/Vaping Use: Never Used Second Hand Smoke Exposure: Yes Advance Directives: No Advance Directives Information Provided: Yes Do you have a plan to hurt others: No Plan service: No Current occupational status: employed and disabled Current occupation: [employer] Sexual orientation: Straight/Heterosexual Cognitive needs: No Hearing needs: No Vision needs: Yes Physical Exam Vital Signs: Vital Signs: Last Vital Signs Temp 98.1 F 03/15/25 19:12 Pulse 97 03/15/25 19:12 Resp 15 03/15/25 19:12 BP 131/73 03/15/25 19:12 Pulse Ox 96 03/15/25 19:12 O2 Del Method Room Air 03/15/25 19:12 BMI result Body Mass Index 20.7 Const: General: cooperative, no acute distress, alert and awake Nutritional Appearance: well nourished Orientation/consciousness: patient oriented x3 HEENT: Head: Yes normal to inspection and Yes atraumatic Ears: hearing grossly normal bilaterally and external ears normal General nose exam: Normal external nose present, no nasal discharge noted and no epistaxis Face and sinus: Yes normal facial exam, No abrasion and No laceration Mouth: Normal oral and palatal mucosa present, no drooling and no muffled voice Eyes: General: appearance normal, both eyes and all related structures Periorbital: periorbital findings normal Eyelids: Yes eyelids normal Conjunctivae: conjunctivae normal Pupils: Equal, round and reactive pupils present EOM: EOMs intact bilaterally Neck: Neck: Yes normal visual inspection and Yes full ROM Resp: Effort & Inspection: normal respiratory effort and able to speak in complete sentences Neuro: General: patient oriented x3, moves all extremities and CN's II-XI intact bilaterally Cranial nerves: Yes Equal, round and reactive pupils present Cognition (Neuro): normal cognition Extrem: General: Yes normal to inspection, Yes full ROM and Yes capillary refill normal Psych: Appearance: grossly normal Mental Status: mental status grossly normal Affect: normal affect Attitude: cooperative Course Course Course Narrative: This is a Rapid Medical Examination (RME) performed by Addy Regalado PA-C in triage. Full HPI, ROS, assessment and treatment plan per primary provider in the Main ED. Hx: 59 yo M here from [facility] agitated/ upset regarding treatment in [facility]. states he is not given access to the kitchen and staff is not taking care of him, i.e shaving his face. denies SI/HI, etoh or substance abuse. wants to speak w/ care team. Plan: med clearance care team Medical Decision Making Medical Decision Making [facility] Narrative: Patient is a 59 year old assigned male at with a history of BPH, chronic suprapubic pain, GERD, HLD, and schizoaffective disorder presenting to the emergency department today wanting to discuss his [facility] living conditions. Patient's physical exam was unremarkable. Patient's blood work was unremarkable. Patient met with the CARE team who confirmed the patient felt safe to return to the chcf and stated they would arrange a Lyft ride for him. I explained my physical exam findings as well as all test results to the patient. I answered all questions asked by the patient. I stressed the importance of the patient taking his medication as directed (either prescribed or as the over the counter packaging recommends). I stressed the importance of the patient following up with his primary care provider. I stressed the importance of the patient returning to the emergency department immediately if he were to develop any dizziness, shortness of breath, difficulty breathing, chest pain, blurry vision, loss of vision, nausea, vomiting, abdominal pain, fever, chills, back pain, or any other complaints. Patient verbalized agreement and understanding with this treatment plan and discharge back to his chcf via Lyft. Differential Diagnosis Differential Diagnoses: The differential diagnosis associated with the presentation includes Normal physical examination Admission/Observation Consideration of admission/observation: Escalation of care including admission/observation considered Patient would have been admitted to the hospital had his work up had any findings where hospital admission was appropriate and his clinical presentation warranted hospital admission. Consult Healthcare Provider Management of the patient was discussed with: Behavioral Health Provider (spoke with the CARE team as noted in the MDM Rationale portion of this note. ) Lab Data [facility] Lab Attestation statement: I reviewed the patient's lab results. My interpretation of these results are in the MDM Rationale portion of this note. 03/15/25 18:19 03/15/25 18:19 Labs: Lab Results 03/15/25 Range/Units 18:19 WBC 5.4 (4.8-10.8) X10*3/uL RBC 4.02 L (4.60-5.80) X10*6/uL Hgb 12.7 L (14.0-18.0) g/dl Hct 37.4 L (42.0-52.0) % MCV 93.0 (80.0-98.0) fL MCH 31.6 (27.0-33.0) pg MCHC 34.0 (31.0-36.0) g/dl RDW 13.0 (11.0-16.0) % Plt Count 185 (160-400) X10*3/uL MPV 9.5 (9.4-12.4) fL Immature Gran % (Auto) 0.2 (0.0-0.4) % Neut % (Auto) 47.6 (45-73) % Lymph % (Auto) 36.2 (20-40) % [place] % (Auto) 9.1 (2-11) % Eos % (Auto) 5.6 H (0-4) % Baso % (Auto) 1.3 (0-2) % Lymph # (Auto) 2.0 (1.2-4.9) X10*3/uL [place] # (Auto) 0.5 (0.1-1.2) X10*3/uL Eos # (Auto) 0.3 (0.0-0.4) X10*3/uL Baso # (Auto) 0.1 (0.0-0.2) X10*3/uL Abs Immat Gran (auto) 0.01 (0.00-0.03) X10*3/uL Absolute Neuts (auto) 2.6 (2.0-8.3) x10*3/uL Absolute Nucleated RBC 0.000 (0.0-0.012) X10*3/uL Nucleated RBC % (auto) 0.0 (0.0-0.2) /100WBC Sodium 141 (135-145) mmol/L Potassium 3.8 (3.3-5.1) mmol/L Chloride 111 H (96-108) mmol/L Carbon Dioxide 23 (22-29) mmol/L Anion Gap 11 L (12-20) BUN 7 L (9-16) mg/dL Creatinine 0.71 (0.5-1.4) mg/dL Estim Creat Clear Calc 98.0 Estimated GFR > 60 Random Glucose 104 (60-115) mg/dL Calcium 8.9 (8.4-10.2) mg/dL Total Bilirubin 0.2 (0.0-1.0) mg/dL AST 20 (5-37) U/L ALT 13 (0-40) U/L Alkaline Phosphatase 67 (39-117) U/L Total Protein 6.5 (6.5-8.0) g/dL Albumin 3.9 (3.5-5.0) g/dL Ethyl Alcohol < 10 mg/dL Discharge Plan Discharge Clinical Impression: Normal physical examination Patient Disposition: Home, Self-Care Instructions: Normal Exam (ED) Additional Instructions: Your blood work was unremarkable. IF you are prescribed home medications and/or you are taking over the counter medications at home - it is very important you continue to do so as prescribed / directed unless told otherwise. Follow up with your primary care provider. Return to the emergency department immediately if your symptoms worsen or if you develop any numbness, tingling, dizziness, shortness of breath, difficulty breathing, chest pain, blurry vision, loss of vision, nausea, vomiting, abdominal pain, fever, chills, back pain, or any other complaints. Please see the information below about our Patient Portal. If you are not yet enrolled in the [facility] Patient Portal, you will receive an enrollment email invitation following your visit to any [facility] care setting. You may also self-enroll in the Patient Portal by visiting our website: [email or web address] The following information is required to access the Patient Portal: - Your [facility] Medical Record Number - Your personal home email address (must match what is in your electronic medical record, Registration staff can assist with this) - Name - Date of Capabilities of the Patient Portal: - Message some providers - View upcoming appointments - Access your health summary, medical history, and visit history - View current conditions and allergies - View procedure and lab results - View your medications, including guidelines, side effects, and precautions - Complete pre-appointment questionnaires requested by your provider - Ready summary reports of your office visits and procedures To access the Patient Portal Mobile [employer], follow these directions: - Search Bandwagon in the [employer] Store or Google [employer] Store - Download the [facility] - Search for [facility] - Enter your login/password Prescriptions: No Action quetiapine 100 mg tablet 100 mg PO BEDTIME lorazepam 1 mg tablet 1 mg PO DAILY PRN (Reason: Anxiety) aripiprazole 30 mg tablet 30 mg PO DAILY quetiapine 50 mg tablet 50 mg PO BID olanzapine 10 mg tablet 10 mg PO TID cefuroxime axetil 500 mg tablet 500 mg PO BID 7 Days Qty: 14 0RF tamsulosin 0.4 mg capsule 0.4 mg PO QAM 90 Days Qty: 90 0RF atorvastatin 20 mg tablet 20 mg PO QPM 90 Days Qty: 90 3RF Referrals: Dk Rodriguez MD [Primary Care Provider, Internal Medicine] Interventions: Victoria-Suicide Risk Severity Scale Last Done: 03/15/25 19:12 ED Discharge Assessment Last Done: 03/15/25 19:12 Discharge Date/Time: 03/15/25 19:13 Print Language: Irish
[2025-03-15 18:26] LABS: MANUAL DIFF FLAG NO
[2025-03-15 18:28] LABS: Hematocrit 37.4 % (42.0-52.0); Hemoglobin 12.7 g/dl (14.0-18.0); Imm Gran Abs Auto 0.01 X10*3/uL (0.00-0.03); Imm Gran Pct Auto 0.2 % (0.0-0.4); Lymphocytes Absolute Auto 2.0 X10*3/uL (1.2-4.9); Mean Corpuscular HGB Conc 34.0 g/dl (31.0-36.0); Mean Corpuscular Hemoglobin 31.6 pg (27.0-33.0); Mean Corpuscular Volume 93.0 fL (80.0-98.0); NRBC Abs Auto 0.000 X10*3/uL (0.0-0.012); NRBC Pct Auto 0.0 /100WBC (0.0-0.2); Platelet Count 185 X10*3/uL (160-400); Red Blood Count 4.02 X10*6/uL (4.60-5.80); White Blood Count 5.4 X10*3/uL (4.8-10.8)
--- OUTSIDE RECORDS SUMMARY | 2025-03-15 18:30 | XMS_ITS | Encounter Summary ---
Author Organization [facility] Address [address] [place] [address] Care Team Providers Care Grain Thresher Name Role Phone Ref, Has No Pcp Or Primary Care Provider Unavail able Encounter Details Date Type Department Care Team (Late st Contact Info) Description 01/04/2024 Community Orders [facility] EpicCare Link [address] [place] [address] Bethany Lozano, COIL BINDER [address] [place] [address] Social History Tobacco Use Types Packs/Day Years [...] on filedocumented in this encounter Care Teams Grain Thresher Relationship Specialty Start Date End Date Ref, Has No Pcp Or DO NOT EDIT THIS RECORD VIA PROVIDER ON THE FLY PCP - General Digester Hand 12/30/23 documented as of this encounter
--- OUTSIDE RECORDS SUMMARY | 2025-03-15 18:30 | XMS_ITS | Clinical Summary ---
Author Organization [facility] Address [address] [place] [address] Phone Care Team Providers Care Service Order Expediter Name Role Phone Dk Rodriguez MD Primary [...] PM EDT - 03/06/2025 9:57 PM EDT [facility] Emergency [address] [place] [phone] Discharge Disposition: Home or Self Care 02/15/2025 9:21 PM EDT - 02/15/2025 9:45 PM EDT Emergency [facility] Emergency [address] [place] [phone] Encounter for Santos catheter removal (Primary Dx) Discharge Disposition: Home or Self Care 02/14/2025 8:31 PM EDT - 02/14/2025 9:27 PM EDT [facility] Emergency [address] [place] [phone] Urinary retention (Primary Dx) Discharge Disposition: Home or Self Care 02/10/2025 9:24 PM EDT - 02/10/2025 11:43 PM EDT [facility] Emergency [address] [place] [address] [place] [phone] Discharge Disposition: Home or Self Care 02/01/2025 8:58 PM EDT - 02/01/2025 10:49 PM EDT [facility] Emergency [address] [place] [phone] Discharge Disposition: Home or Self Care 01/30/2025 8:57 PM EDT - 01/31/2025 12:33 AM EDT [facility] Emergency [address] [place] [phone] Discharge Disposition: Home or Self Care 01/28/2025 9:14 PM EDT - 01/28/2025 11:28 PM EDT [facility] Emergency [address] [place] [phone] Discharge Disposition: Home or Self Care 01/14/2025 8:53 PM EDT - 01/15/2025 12:26 AM EDT [facility] Emergency [address] [place] [phone] Discharge Disposition: Home or Self Care 01/12/2025 8:45 PM EDT - 01/12/2025 11:57 PM EDT [facility] Emergency [address] [place] [phone] Dilcia Carl MD Discharge Disposition: Left Against Medical Advice from Last 3 Months Medical History Medical History Date Comments Bipolar 1 disorder ([facility] V24, [facility] V28[facility] Mood disorder ([facility] V24) Hyperactivity of [...] age to complete this topic Insurance [id number] [place] [place] [id number] MEDICARE MEDICAID - [place] Care Teams Service Order Expediter Relationship Specialty Start Date End Date Dk Rodriguez MD [address] [place] [address] [address] [place] PCP - General Internal Medicine 07/16/24
--- OUTSIDE RECORDS SUMMARY | 2025-03-15 18:30 | XMS_ITS | Clinical Summary ---
Author Organization [facility] Address [address] [place] [address] Care Team Providers Care Bail Bonding Agent Name Role Phone Ref, Has No Pcp [...] Plan (01/03/2024 2:32 PM EDT): Presents from [facility] in the setting of urinary [...] (01/03/2024 10:49 AM EDT): Presented from [facility] with hyponatremia (initially 123). Also had [...] Plan (01/02/2024 11:43 AM EDT): Presents from [facility] in the setting of urinary [...] Seroquel 25 mg twice daily Presents from [facility]'s forensic unit with documented history of schizophrenia. Continue home aripiprazole 20mg daily Continue home carbamazepine 500 mg twice daily Continue home Zyprexa 15 mg nightly Continue home Seroquel 25 mg twice daily Consider psychiatry consult if concern that antipsychotic medications are causing SIADH Patient presents from [facility], requires constant observation Assessment & Plan (01/02/2024 11:43 AM EDT): Home medications: aripiprazole 20 mg daily, carbamazepine 500 mg twice daily, Zyprexa 15 mg nightly, Seroquel 25 mg twice daily Presents from [facility]'s forensic unit with documented history of schizophrenia. Continue home aripiprazole 20mg daily Continue home carbamazepine 500 mg twice daily Continue home Zyprexa 15 mg nightly Continue home Seroquel 25 mg twice daily Consider psychiatry consult if concern that antipsychotic medications are causing SIADH Patient presents from [facility], requires constant observation BPH (benign prostatic hyperplasia) 12/30/2023 Assessment & Plan (01/03/2024 2:33 PM EDT): Paperwork from the [facility] indicates history of BPH with prior need for intermittent catheterization requiring urology evaluation in the past, records not available in our system). Per documentation from [facility] patient has seen urology at [facility] in [place]. He was started on Flomax outpatient. In [...] (01/02/2024 11:43 AM EDT): Paperwork from the [facility] indicates history of BPH with prior need for intermittent catheterization requiring urology evaluation in the past, records not available in our system). Per documentation from [facility] patient has seen urology at [facility] in [place]. He was started on Flomax outpatient. In [...] series) 2040 Tobacco Screening 06/05/2042 01/29/2024 Insurance [facility] MEDIC[facility] Advance Directives * Full Code (Latest Code Status on File) Date Activated Date Inactivated Comments 12/30/2023 7:22 PM 01/03/2024 8:48 PM * Presumed Full Code Date Activated Date Inactivated Comments 12/30/2023 7:00 PM 12/30/2023 7:22 PM Care Teams Bail Bonding Agent Relationship Specialty Start Date End Date Ref, Has No Pcp Or DO NOT EDIT THIS RECORD VIA PROVIDER ON THE FLY PCP - General Button Grader 12/30/23
[2025-03-15 18:46] LABS: Alanine Aminotransferase 13 U/L (0-40); Albumin Level 3.9 g/dL (3.5-5.0); Alkaline Phosphatase 67 U/L (39-117); Anion Gap 11 (12-20); Aspartate Amino Transferase 20 U/L (5-37); Blood Urea Nitrogen 7 mg/dL (9-16); Calcium 8.9 mg/dL (8.4-10.2); Carbon Dioxide 23 mmol/L (22-29); Chloride 111 mmol/L (96-108); Creatinine Clr Calc Pharmacy 98.0; Estimated Glomerular Filt Rate > 60; Potassium 3.8 mmol/L (3.3-5.1); Sodium 141 mmol/L (135-145); Total Protein 6.5 g/dL (6.5-8.0)
--- NOTE | 2025-03-15 19:11 | PC.NURSE ---
Dipak from care team assisted pt into lyft back to halfway per DAMARI Blanchard
[2025-03-15 19:12] VITALS: BP 131/73; PULSE 97; RESP 15; TEMP 36.7; O2SAT 96
== END 2025-03-15 19:13 | disposition home or self-care (01) ==
PROVIDERS: Physician Assistant Medical; Emergency Provider Emergency Medicine; PCP Internal Medicine
DX: F25.9 Schizoaffective disorder, unspecified (principal); R45.851 Suicidal ideations; Z79.899 Other long term (current) drug therapy; F17.210 Nicotine dependence, cigarettes, uncomplicated; Z51.81 Encounter for therapeutic drug level monitoring
CPT/HCPCS: 36415; 80053; 80307; 85025; 99283; S9485

== ENCOUNTER 2025-03-16 14:47 | Emergency (ER) | payer MEDICARE, MEDICAID, SELFPAY ==
--- NOTE | 2025-03-16 14:48 | ED.GENADULT ---
HPI - General Adult General Chief complaint: Behavioral Concerns Stated complaint: multiple complaints Time Seen by Provider: 03/16/25 14:53 Source: patient Mode of arrival: ambulatory Limitations: no limitations History of Present Illness ED Provider: Fozia Jordan PA-C HPI narrative: Patient is a 59 year old assigned male at with a history of BPH, chronic suprapubic pain, GERD, HLD, and schizoaffective disorder presenting to the emergency department today wanting to discuss his custodial living conditions. Patient states that his custodial just isn't taking care of him the way he would like to be taken care of and he would like to have his bladder scanned. Patient denies any other complaints at this time. Patient denies any thoughts of hurting himself or others. Related Data Home Medications ?Medication ?Instructions ?Recorded ?Confirmed aripiprazole 30 mg tablet 30 mg PO DAILY 01/31/25 02/25/25 lorazepam 1 mg tablet 1 mg PO DAILY PRN Anxiety 01/31/25 02/25/25 quetiapine 100 mg tablet 100 mg PO BEDTIME 01/31/25 02/25/25 quetiapine 50 mg tablet 50 mg PO BID 01/31/25 02/25/25 olanzapine 10 mg tablet 10 mg PO TID 02/03/25 02/25/25 Previous Rx's ?Medication ?Instructions ?Recorded atorvastatin 20 mg tablet 20 mg PO QPM 90 days #90 tabs 01/10/25 tamsulosin 0.4 mg capsule 0.4 mg PO QAM 90 days #90 caps 01/10/25 cefuroxime axetil 500 mg tablet 500 mg PO BID 7 days #14 tabs 03/10/25 Allergies Allergy/AdvReac Type Severity Reaction Status Date / Time No Known Allergies (NO KNOWN Allergy Unknown UNKNOWN Verified 03/16/25 14:50 ALLERGIES) Review of Systems Constitutional: Constitutional: Reports as per HPI Eyes: Eyes: Reports as per HPI ENT: Reports as per HPI Cardiovascular: Cardiovascular: Reports as per HPI Respiratory: Respiratory: Reports as per HPI Gastrointestinal: Gastrointestinal: Reports as per HPI Genitourinary: Genitourinary: Reports as per HPI Musculoskeletal: Musculoskeletal: Reports as per HPI Integumentary/Breasts: Skin/Breast: Reports as per HPI Neurologic: Reports as per HPI Psychiatric: Psychiatric: Reports as per HPI Endocrine: Endocrine: Reports as per HPI Hematologic/Lymphatic: Hematologic/Lymphatic: Reports as per HPI Allergic/Immunologic: Allergic/Immunologic: Reports as per HPI PMFSH Past Medical History Attestation statement: The following information was validated with the patient. Source: old records reviewed and nursing notes reviewed Medical History Acute anxiety Smoker GERD without esophagitis Tubular adenoma of colon (~2018) Personal history of nicotine dependence Constipation Back pain Schizoaffective disorder, bipolar type Anxiety Benign prostatic hyperplasia with lower urinary tract symptoms Pure hypercholesterolemia Thought disorder Bipolar 1 disorder Mood disorder Surgical History History of colonoscopy (~04/2019) History of prostate surgery (~04/2019) History of open reduction and internal fixation (ORIF) procedure (~08/2018) Family History Family History Father Lung cancer BPH (benign prostatic hyperplasia) Mother Dementia Brother Myocardial infarction Other Mental health problem Substance abuse Social History Social History Household Members: Other Housing: Other Housing Other:: Residential Do you presently have visiting nurse or other home services: No Alcohol intake: never Patient Tobacco Use Status: Current everyday Tobacco user Tobacco use type: Cigarette Cigarette Packs Per Day: 0.5 Cigarettes Per Day: 10.0 Years Smoked: 10 e-Cigarette/Vaping Use: Never Used Second Hand Smoke Exposure: Yes Advance Directives: No Advance Directives Information Provided: No Do you have a plan to hurt others: No Plan service: No Current occupational status: employed and disabled Current occupation: [employer] Sexual orientation: Straight/Heterosexual Cognitive needs: No Hearing needs: No Vision needs: Yes Physical Exam ED Vital Signs: Vital Signs - 24 hr 03/16/25 14:49 Temperature 97 F Pulse Rate 99 Respiratory Rate 20 Blood Pressure 116/58 L Pulse Oximetry 97 Oxygen Delivery Method Room Air BMI result Body Mass Index 20.7 Const General: cooperative, no acute distress, alert and awake Nutritional Appearance: well nourished Orientation/consciousness: patient oriented x3 HENMT Head: Yes normal to inspection and Yes atraumatic Ears: hearing grossly normal bilaterally and external ears normal General nose exam: Normal external nose present, no nasal discharge noted and no epistaxis Face and sinus: Yes normal facial exam, No abrasion and No laceration Mouth: Normal oral and palatal mucosa present, no drooling and no muffled voice Eyes General: appearance normal, both eyes and all related structures Periorbital: periorbital findings normal Eyelids: Yes eyelids normal Conjunctivae: conjunctivae normal Pupils: Equal, round and reactive pupils present EOM: EOMs intact bilaterally Neck Neck: Yes normal visual inspection and Yes full ROM Resp Effort & Inspection: normal respiratory effort and able to speak in complete sentences Neuro General: patient oriented x3, moves all extremities and CN's II-XI intact bilaterally Cranial nerves: Yes Equal, round and reactive pupils present Cognition (Neuro): normal cognition Extrem General: Yes normal to inspection, Yes full ROM and Yes capillary refill normal Psych Appearance: grossly normal Mental Status: mental status grossly normal Affect: Anxious affect present Attitude: cooperative Course Course Course Narrative: Rapid medical examination performed in triage by Fozia Jordan PA-C. Patient is a 59 year old assigned male at presenting to the emergency department with concerns his custodial isn't taking care of him. Patient states he has been sitting in his custodial room day and night and the custodial staff just ain't taking care of me like they should be anymore . Detailed physical exam and review of systems are deferred to the newspaper carrier. Patient denies any thoughts of hurting himself or others. Patient placed back in the waiting room pending room availability and results. Medical Decision Making Medical Decision Making [facility] Narrative: Patient is a 59 year old assigned male at with a history of BPH, chronic suprapubic pain, GERD, HLD, and schizoaffective disorder presenting to the emergency department today wanting to discuss his custodial living conditions and for his bladder to be scanned. Patient's physical exam was unremarkable. Patient's bladder scan showed very mild retention which is common for the patient and at this time he does not need to be catheterized. Patient met with the CARE team who confirmed the patient felt safe to return to the custodial and stated they would arrange a Lyft ride for him. I explained my physical exam findings as well as all test results to the patient. I answered all questions asked by the patient. I stressed the importance of the patient taking his medication as directed (either prescribed or as the over the counter packaging recommends). I stressed the importance of the patient following up with his primary care provider. I stressed the importance of the patient returning to the emergency department immediately if he were to develop any dizziness, shortness of breath, difficulty breathing, chest pain, blurry vision, loss of vision, nausea, vomiting, abdominal pain, fever, chills, back pain, or any other complaints. Differential Diagnosis Differential Diagnoses: The differential diagnosis associated with the presentation includes Anxiety Chronic BPH Admission/Observation Consideration of admission/observation: Escalation of care including admission/observation considered Patient would have been admitted to the hospital had his work up had any findings where hospital admission was appropriate and his clinical presentation warranted hospital admission. Consult Healthcare Provider Management of the patient was discussed with: Behavioral Health Provider (spoke with the CARE team staff as noted in the MDM Rationale portion of this note. ) Discharge Plan Discharge Clinical Impression: Anxiety Patient Disposition: Home, Self-Care Instructions: Anxiety (ED) Additional Instructions: IF you are prescribed home medications and/or you are taking over the counter medications at home - it is very important you continue to do so as prescribed / directed unless told otherwise. Follow up with your primary care provider. Return to the emergency department immediately if your symptoms worsen or if you develop any numbness, tingling, dizziness, shortness of breath, difficulty breathing, chest pain, blurry vision, loss of vision, nausea, vomiting, abdominal pain, fever, chills, back pain, or any other complaints. Please see the information below about our Patient Portal. If you are not yet enrolled in the [facility] Patient Portal, you will receive an enrollment email invitation following your visit to any [facility] care setting. You may also self-enroll in the Patient Portal by visiting our website: [email or web address] The following information is required to access the Patient Portal: - Your [facility] Medical Record Number - Your personal home email address (must match what is in your electronic medical record, Registration staff can assist with this) - Name - Date of Capabilities of the Patient Portal: - Message some providers - View upcoming appointments - Access your health summary, medical history, and visit history - View current conditions and allergies - View procedure and lab results - View your medications, including guidelines, side effects, and precautions - Complete pre-appointment questionnaires requested by your provider - Ready summary reports of your office visits and procedures To access the Patient Portal Mobile [employer], follow these directions: - Search [employer] in the [employer] Store or Google Play Store - Download the [employer] - Search for [facility] - Enter your login/password Prescriptions: No Action quetiapine 100 mg tablet 100 mg PO BEDTIME lorazepam 1 mg tablet 1 mg PO DAILY PRN (Reason: Anxiety) aripiprazole 30 mg tablet 30 mg PO DAILY quetiapine 50 mg tablet 50 mg PO BID olanzapine 10 mg tablet 10 mg PO TID cefuroxime axetil 500 mg tablet 500 mg PO BID 7 Days Qty: 14 0RF tamsulosin 0.4 mg capsule 0.4 mg PO QAM 90 Days Qty: 90 0RF atorvastatin 20 mg tablet 20 mg PO QPM 90 Days Qty: 90 3RF Discharge Date/Time: 03/16/25 15:29 Print Language: Croatian
[2025-03-16 14:49] VITALS: BP 116/58; PULSE 99; RESP 20; TEMP 36.1; O2SAT 97; BMI 20.7
--- OUTSIDE RECORDS SUMMARY | 2025-03-16 15:08 | XMS_ITS | Encounter Summary ---
Author Organization [facility] Address [address] [place] [address] Care Team Providers Care Oil Expeller Operator Name Role Phone Ref, Has No Pcp Or Primary Care Provider Unavail able Encounter Details Date Type Department Care Team (Late st Contact Info) Description 01/04/2024 Community Orders [facility] EpicCare Link [address] [place] [address] Bethany Lozano, [address] [place] [address] Social History Tobacco Use Types Packs/Day Years [...] on filedocumented in this encounter Care Teams Oil Expeller Operator Relationship Specialty Start Date End Date Ref, Has No Pcp Or DO NOT EDIT THIS RECORD VIA PROVIDER ON THE FLY PCP - General Automatic Data Processing Planner 12/30/23 documented as of this encounter
--- OUTSIDE RECORDS SUMMARY | 2025-03-16 15:08 | XMS_ITS | Clinical Summary ---
Author Organization [facility] Address [address] [place] [address] Phone Care Team Providers Care Pipe Layer Name Role Phone Dk Rodriguez MD Primary Care Provider [phone] Allergies No known active allergies Medications tamsulosin (FLOMAX) 0.4 mg 24 hr capsule Take 1 capsule (0.4 mg total) by mouth 1 (one) time each day for 7 days. Capsules should be taken 30 minutes following the same meal each day. 7 capsule 02/23/20 Encounters Date Type Department Care Team Description 03/06/2025 9:24 PM EDT - 03/06/2025 9:57 PM EDT [facility] Emergency [address] [place] [phone] Discharge Disposition: Home or Self Care 02/15/2025 9:21 PM EDT - 02/15/2025 9:45 PM EDT Emergency [facility] Emergency [address] [place] [phone] Encounter for Santos catheter removal (Primary Dx) Discharge Disposition: Home or Self Care 02/14/2025 8:31 PM EDT - 02/14/2025 9:27 PM EDT [facility] Emergency [address] [place] [phone] Urinary retention (Primary Dx) Discharge Disposition: Home or Self Care 02/10/2025 9:24 PM EDT - 02/10/2025 11:43 PM EDT [facility] Emergency [address] [place] [address] [place] [phone] Discharge Disposition: Home or Self Care 02/01/2025 8:58 PM EDT - 02/01/2025 10:49 PM EDT [facility] Emergency [address] [place] [phone] Discharge Disposition: Home or Self Care 01/30/2025 8:57 PM EDT - 01/31/2025 12:33 AM EDT [facility] Emergency [address] [place] [phone] Discharge Disposition: Home or Self Care 01/28/2025 9:14 PM EDT - 01/28/2025 11:28 PM EDT [facility] Emergency [address] [place] [phone] Discharge Disposition: Home or Self Care 01/14/2025 8:53 PM EDT - 01/15/2025 12:26 AM EDT [facility] Emergency [address] [place] [phone] Discharge Disposition: Home or Self Care 01/12/2025 8:45 PM EDT - 01/12/2025 11:57 PM EDT [facility] Emergency [address] [place] [phone] Dilcia Carl MD Discharge Disposition: Left Against Medical Advice from Last 3 Months Medical History Medical History Date Comments Bipolar 1 disorder ([facility] V24, [facility] V28) Mood disorder ([facility] V24) Hyperactivity of bladder Social [...] age to complete this topic Insurance [id number] [facility] [place] [phone] [place]ICAID - [place] Care Teams Pipe Layer Relationship Specialty Start Date End Date Dk Rodriguez MD [address] [place] [address] Jackie [address] MD PCP - General Internal Medicine 07/16/24
--- OUTSIDE RECORDS SUMMARY | 2025-03-16 15:08 | XMS_ITS | Clinical Summary ---
Author Organization [facility] Address [address] [place] [address] Care Team Providers Care Auto Wash Buffer Name Role Phone Ref, Has No Pcp [...] Plan (01/03/2024 2:32 PM EDT): Presents from [facility] in the setting of urinary retention [...] Plan (01/03/2024 10:49 AM EDT): Presented from [facility] with hyponatremia (initially 123). Also had [...] Plan (01/02/2024 11:43 AM EDT): Presents from [facility] in the setting of urinary retention [...] Seroquel 25 mg twice daily Presents from [facility]'s forensic unit with documented history of schizophrenia. Continue home aripiprazole 20mg daily Continue home carbamazepine 500 mg twice daily Continue home Zyprexa 15 mg nightly Continue home Seroquel 25 mg twice daily Consider psychiatry consult if concern that antipsychotic medications are causing SIADH Patient presents from [facility], requires constant observation Assessment & Plan (01/02/2024 11:43 AM EDT): Home medications: aripiprazole 20 mg daily, carbamazepine 500 mg twice daily, Zyprexa 15 mg nightly, Seroquel 25 mg twice daily Presents from [facility]'s forensic unit with documented history of schizophrenia. Continue home aripiprazole 20mg daily Continue home carbamazepine 500 mg twice daily Continue home Zyprexa 15 mg nightly Continue home Seroquel 25 mg twice daily Consider psychiatry consult if concern that antipsychotic medications are causing SIADH Patient presents from [facility], requires constant observation BPH (benign prostatic hyperplasia) 12/30/2023 Assessment & Plan (01/03/2024 2:33 PM EDT): [facility] indicates history of BPH with prior need for intermittent catheterization requiring urology evaluation in the past, records not available in our system). Per documentation from [facility] patient has seen urology at [facility] in [place]. He was started on Flomax outpatient. In [...] with urology outpatient - Ok to remove scahfer and continue self-cath as needed Assessment & Plan (01/02/2024 11:43 AM EDT): Paperwork from the [facility] indicates history of BPH with prior need for intermittent catheterization requiring urology evaluation in the past, records not available in our system). Per documentation from [facility] patient has seen urology at [facility] in [place]. He was started on Flomax outpatient. In [...] series) 2040 Tobacco Screening 06/05/2042 01/29/2024 Insurance [facility] MEDICARE [facility] Advance Directives * Full Code (Latest Code Status on File) Date Activated Date Inactivated Comments 12/30/2023 7:22 PM 01/03/2024 8:48 PM * Presumed Full Code Date Activated Date Inactivated Comments 12/30/2023 7:00 PM 12/30/2023 7:22 PM Care Teams Auto Wash Buffer Relationship Specialty Start Date End Date Ref, Has No Pcp Or DO NOT EDIT THIS RECORD VIA PROVIDER ON THE FLY PCP - General Well Point Pumping Supervisor 12/30/23
== END 2025-03-16 15:29 | disposition home or self-care (01) ==
PROVIDERS: Emergency Provider Emergency Medicine; PCP Internal Medicine
DX: F41.9 Anxiety disorder, unspecified (principal)
CPT/HCPCS: 51798; 99283; 99284; S9485

== ENCOUNTER 2025-03-17 07:32 | Emergency (ER) | payer MEDICARE, MEDICAID, SELFPAY ==
[2025-03-17 07:35] VITALS: BP 105/63; PULSE 104; RESP 20; TEMP 36.3; O2SAT 99; BMI 20.7
--- OUTSIDE RECORDS SUMMARY | 2025-03-17 08:01 | XMS_ITS | Clinical Summary ---
Author Organization [facility] Address [address] [place] [address] Care Team Providers Care Wetlands Technician Name Role Phone Ref, Has No [...] Plan (01/03/2024 2:32 PM EDT): Presents from [facility] in the setting of urinary [...] Plan (01/03/2024 10:49 AM EDT): Presented from [facility] with hyponatremia (initially 123). Also had [...] Plan (01/02/2024 11:43 AM EDT): Presents from [facility] in the setting of urinary [...] Seroquel 25 mg twice daily Presents from [facility] forensic unit with documented history of schizophrenia. Continue home aripiprazole 20mg daily Continue home carbamazepine 500 mg twice daily Continue home Zyprexa 15 mg nightly Continue home Seroquel 25 mg twice daily Consider psychiatry consult if concern that antipsychotic medications are causing SIADH Patient presents from [facility], requires constant observation Assessment & Plan (01/02/2024 11:43 AM EDT): Home medications: aripiprazole 20 mg daily, carbamazepine 500 mg twice daily, Zyprexa 15 mg nightly, Seroquel 25 mg twice daily Presents from [facility]'s forensic unit with documented history of schizophrenia. Continue home aripiprazole 20mg daily Continue home carbamazepine 500 mg twice daily Continue home Zyprexa 15 mg nightly Continue home Seroquel 25 mg twice daily Consider psychiatry consult if concern that antipsychotic medications are causing SIADH Patient presents from [facility], requires constant observation BPH (benign prostatic hyperplasia) 12/30/2023 Assessment & Plan (01/03/2024 2:33 PM EDT): Paperwork from the [facility] indicates history of BPH with prior need for intermittent catheterization requiring urology evaluation in the past, records not available in our system). Per documentation from [facility] patient has seen urology at [facility] in [place]. He was started on Flomax outpatient. In [...] 11:43 AM EDT): Paperwork from the [facility] indicates history of BPH with prior need for intermittent catheterization requiring urology evaluation in the past, records not available in our system). Per documentation from [facility] patient has seen urology at [facility] in [place]. He was started on Flomax outpatient. In [...] series) 2040 Tobacco Screening 06/05/2042 01/29/2024 Insurance [facility] MEDICARE Member Subscriber Plan / Payer (Ef fective 1988-Present) Name:Balbir Lyon Member ID:[id number] Relation to Subscriber:Self Name:Balbir Lyon Subscriber ID:[id number] Payer ID:[id number] Group ID:Not on file Type:Not on file Address: [address] [address] [facility] Advance Directives * Full Code (Latest Code Status on File) Date Activated Date Inactivated Comments 12/30/2023 7:22 PM 01/03/2024 8:48 PM * Presumed Full Code Date Activated Date Inactivated Comments 12/30/2023 7:00 PM 12/30/2023 7:22 PM Care Teams Wetlands Technician Relationship Specialty Start Date End Date Ref, Has No Pcp Or DO NOT EDIT THIS RECORD VIA PROVIDER ON THE FLY PCP - General Humanities Professor 12/30/23
--- OUTSIDE RECORDS SUMMARY | 2025-03-17 08:01 | XMS_ITS | Clinical Summary ---
Author Organization [facility] Address [address] [place] [address] Phone Care Team Providers Care Agriculture Scientist Name Role Phone Dk Rodriguez MD Primary [...] PM EDT - 03/06/2025 9:57 PM EDT [facility] Emergency [address] [place] [phone] Discharge Disposition: Home or Self Care 02/15/2025 9:21 PM EDT - 02/15/2025 9:45 PM EDT Emergency [facility] Emergency [address] [place] [phone] Encounter for Santos catheter removal (Primary Dx) Discharge Disposition: Home or Self Care 02/14/2025 8:31 PM EDT - 02/14/2025 9:27 PM EDT [facility] [address] [place] [phone] Urinary retention (Primary Dx) Discharge Disposition: Home or Self Care 02/10/2025 9:24 PM EDT - 02/10/2025 11:43 PM EDT [facility] [address] [place] [address] [place] [phone] Discharge Disposition: Home or Self Care 02/01/2025 8:58 PM EDT - 02/01/2025 10:49 PM EDT [facility] [address] [place] [phone] Discharge Disposition: Home or Self Care 01/30/2025 8:57 PM EDT - 01/31/2025 12:33 AM EDT [facility] [address] [place] [phone] Discharge Disposition: Home or Self Care 01/28/2025 9:14 PM EDT - 01/28/2025 11:28 PM EDT [facility] [address] [place] [phone] Discharge Disposition: Home or Self Care 01/14/2025 8:53 PM EDT - 01/15/2025 12:26 AM EDT [facility] [address] [place] [phone] Discharge Disposition: Home or Self Care 01/12/2025 8:45 PM EDT - 01/12/2025 11:57 PM EDT [facility] [address] [place] [phone] Dilcia Carl MD Discharge Disposition: Left Against Medical Advice from Last 3 Months Medical History Medical History Date Comments Bipolar 1 disorder ([facility] V24, [facility] V28) Mood disorder ([facility] V24) Hyperactivity of bladder Social History [...] age to complete this topic Insurance [id number] [facility] [place] [phone] MEDICARE MEDICAID - [place] Care Teams Agriculture Scientist Relationship Specialty Start Date End Date Dk Rodriguez MD [address] [place] [address] [address] [place] PCP - General Internal Medicine 07/16/24
--- OUTSIDE RECORDS SUMMARY | 2025-03-17 08:01 | XMS_ITS | Encounter Summary ---
Author Organization [facility] Address [address] [place] [address] Care Team Providers Care Professor Of Voice Name Role Phone Ref, Has No Pcp Or Primary Care Provider Unavail able Encounter Details Date Type Department Care Team (Late st Contact Info) Description 01/04/2024 Community Orders [facility] EpicCare Link [address] [place] [address] Bethany Lozano, RN PRACTITIONER [address] [place] [address] Social History Tobacco Use Types Packs/Day Years [...] on filedocumented in this encounter Care Teams Professor Of Voice Relationship Specialty Start Date End Date Ref, Has No Pcp Or DO NOT EDIT THIS RECORD VIA PROVIDER ON THE FLY PCP - General Senior Geotechnical Engineer 12/30/23 documented as of this encounter
== END 2025-03-17 08:57 | disposition left against medical advice (07) ==
PROVIDERS: Emergency Provider Emergency Medicine
DX: Z04.9 Encounter for examination and observation for unspecified reason (principal)
CPT/HCPCS: 99281

== ENCOUNTER 2025-03-17 10:38 | Emergency (ER) | payer MEDICARE, MEDICAID, SELFPAY ==
[2025-03-17 10:54] VITALS: BP 139/89; PULSE 89; RESP 18; TEMP 36.8; O2SAT 96; BMI 20.7
--- NOTE | 2025-03-17 11:00 | ED.GENADULT ---
HPI - General Adult General Chief complaint: Behavioral Concerns Stated complaint: gen med Time Seen by Provider: 03/17/25 12:07 Source: patient Mode of arrival: ambulatory Limitations: no limitations History of Present Illness ED Provider: ILA MOY PA-C HPI narrative: 59 year old male with pmhx significant for BPH, chronic suprapubic pain, GERD, HLD, and schizoaffective disorder presents to the ED today requesting his morning medications. He states that the staff at his correction locked him out this morning. He reports agitation regarding this. He initially presented to our facility this morning following this however ended up leaving without completing treatment. He then went to his day program where they reportedly refused to give him his morning medications. He does not know which medications he takes in the morning as he has both morning and evening meds. He states you should have a list of them . He denies any somatic complaints/concerns at this time. Denies SI/HI. Denies etoh consumption or drug use. Related Data Home Medications ?Medication ?Instructions ?Recorded ?Confirmed aripiprazole 30 mg tablet 30 mg PO DAILY 01/31/25 02/25/25 lorazepam 1 mg tablet 1 mg PO DAILY PRN Anxiety 01/31/25 02/25/25 quetiapine 100 mg tablet 100 mg PO BEDTIME 01/31/25 02/25/25 quetiapine 50 mg tablet 50 mg PO BID 01/31/25 02/25/25 olanzapine 10 mg tablet 10 mg PO TID 02/03/25 02/25/25 Previous Rx's ?Medication ?Instructions ?Recorded atorvastatin 20 mg tablet 20 mg PO QPM 90 days #90 tabs 01/10/25 tamsulosin 0.4 mg capsule 0.4 mg PO QAM 90 days #90 caps 01/10/25 cefuroxime axetil 500 mg tablet 500 mg PO BID 7 days #14 tabs 03/10/25 Allergies Allergy/AdvReac Type Severity Reaction Status Date / Time No Known Allergies (NO KNOWN Allergy Unknown UNKNOWN Verified 03/17/25 10:56 ALLERGIES) Review of Systems Review of Systems: Yes all other systems are reviewed and are negative PMFSH Past Medical History Attestation statement: The following information was validated with the patient. Source: old records reviewed and nursing notes reviewed Medical History Acute anxiety Smoker GERD without esophagitis Tubular adenoma of colon (~2018) Personal history of nicotine dependence Constipation Back pain Schizoaffective disorder, bipolar type Anxiety Benign prostatic hyperplasia with lower urinary tract symptoms Pure hypercholesterolemia Thought disorder Bipolar 1 disorder Mood disorder Surgical History History of colonoscopy (~04/2019) History of prostate surgery (~04/2019) History of open reduction and internal fixation (ORIF) procedure (~08/2018) Family History Family History Father Lung cancer BPH (benign prostatic hyperplasia) Mother Dementia Brother Myocardial infarction Other Mental health problem Substance abuse Social History Social History Household Members: Other Housing: Other Housing Other:: Care Home Do you presently have visiting nurse or other home services: No Alcohol intake: never Patient Tobacco Use Status: Current everyday Tobacco user Tobacco use type: Cigarette Cigarette Packs Per Day: 0.5 Cigarettes Per Day: 10.0 Years Smoked: 10 Smoked in Last 30 Days: Yes e-Cigarette/Vaping Use: Never Used Second Hand Smoke Exposure: Yes Use of substances other than those prescribed or required for medical reasons: No Advance Directives: No Advance Directives Information Provided: Yes Do you have a plan to hurt others: No Plan service: No Current occupational status: employed and disabled Current occupation: [employer] Sexual orientation: Straight/Heterosexual Cognitive needs: No Hearing needs: No Vision needs: Yes Physical Exam ED Vital Signs: Vital Signs - 24 hr 03/17/25 10:54 03/17/25 14:02 03/17/25 14:16 Temperature 98.3 F 98.3 F 98.3 F Pulse Rate 89 89 89 Respiratory Rate 18 18 18 Blood Pressure 139/89 139/89 139/89 Pulse Oximetry 96 96 96 Oxygen Delivery Method Room Air Room Air Room Air BMI result Body Mass Index 20.7 vital signs stable General: Well appearing, in no acute distress. Skin: Warm, dry, intact. No rashes or lesions. Head: Normocephalic, atraumatic. EENT: Hearing is intact b/l. Conjunctiva clear. Sclera is anicteric. PERRLA. EOM intact. Moist mucous membranes.? Neck: Supple without LAD Cardiac: Chest wall symmetric. RRR Lungs: Normal respiratory effort without accessory muscle use. CTA bilaterally Abdomen: Soft, non-tender, non-distended. No rebound tenderness or guarding. Positive BS x4. Back: No midline spinous or paraspinal tenderness. No step off deformity. Ext: Upper and lower extremities atraumatic, without tenderness, deformity, swelling or erythem Neuro: AOx3. Normal speech. CN 2-12 grossly intact. Ambulating with steady gait. Psych: Appropriate mood and affect. Responds appropriately to questions. Course Course Course Narrative: Rapid medical examination performed in triage by Fozia Jordan PA-C. Patient is a 59 year old assigned male at presenting to the emergency department after his day program did not have his medication. Patient states that he went to the day program he was supposed to go to and they didn't have his medication so he came t the hospital. Patient states that he was here earlier after his correction locked him out of the house. Detailed physical exam and review of systems are deferred to the hardware installation coordinator. Patient placed back in the waiting room pending room availability. Reevaluation(s) Reevaluation #1: Patient was given his daily dose of atorvastatin. All other meds are unconfirmed and appear to be administered every evening. He is stable at this time for discharge back to correction. he is agreeable. Patient has remained stable throughout ED visit today. Discussed worrisome signs and symptoms and when to return to the ED. All questions answered at this time. Patient is agreeable with disposition and stable for discharge. Medications Administered Discontinued Medications Generic Name Dose Route Start Last Admin Trade Name Tristinq PRN Reason Stop Dose Admin Atorvastatin Calcium 20 mg 03/17/25 13:23 03/17/25 13:30 Atorvastatin Calcium 20 Mg Tablet PO 03/17/25 13:24 20 mg ONCE ONE Administration Medical Decision Making Medical Decision Making [facility] Narrative: 59 year old male with pmhx significant for BPH, chronic suprapubic pain, GERD, HLD, and schizoaffective disorder presents to the ED today requesting his morning medications. vital signs stable. he is well appearing and in NAD. exam benign. Differential diagnosis includes med noncompliance, med refill, normal exam Plan for med review, medical billing supervisor, and disposition. I do not feel he requires care team consult at this time. No labs/imaging warranted as patient has no complaints. Differential Diagnosis Differential Diagnoses: The differential diagnosis associated with the presentation includes as above. Admission/Observation not indicated Social Determinants Patient?s care significantly limited by Social Determinants of Health including: Other Social Determinant of Health Critical Care Time Critical Care Time Critical Care Time: No Discharge Plan Discharge Clinical Impression: Normal exam Patient Disposition: Home, Self-Care Instructions: Normal Exam (ED) Additional Instructions: You were given your daily dose of atorvastatin in the ED today. You are stable to return to your correction. Please return with any new or worsening symptoms. In the case of an emergency call 911. Prescriptions: No Action quetiapine 100 mg tablet 100 mg PO BEDTIME lorazepam 1 mg tablet 1 mg PO DAILY PRN (Reason: Anxiety) aripiprazole 30 mg tablet 30 mg PO DAILY quetiapine 50 mg tablet 50 mg PO BID olanzapine 10 mg tablet 10 mg PO TID cefuroxime axetil 500 mg tablet 500 mg PO BID 7 Days Qty: 14 0RF tamsulosin 0.4 mg capsule 0.4 mg PO QAM 90 Days Qty: 90 0RF atorvastatin 20 mg tablet 20 mg PO QPM 90 Days Qty: 90 3RF Referrals: Physician,Unknown J [Primary Care Provider, Medical] Interventions: ED Discharge Assessment Last Done: 03/17/25 14:16 Discharge Date/Time: 03/17/25 14:16 Print Language: Kinyarwanda
[2025-03-17 14:02] VITALS: BP 139/89; PULSE 89; RESP 18; TEMP 36.8; O2SAT 96
[2025-03-17 14:16] VITALS: BP 139/89; PULSE 89; RESP 18; TEMP 36.8; O2SAT 96
== END 2025-03-17 14:16 | disposition home or self-care (01) ==
PROVIDERS: Emergency Provider Emergency Medicine
DX: F25.9 Schizoaffective disorder, unspecified (principal); N40.0 Benign prostatic hyperplasia without lower urinary tract symptoms; K21.9 Gastro-esophageal reflux disease without esophagitis; E78.5 Hyperlipidemia, unspecified
CPT/HCPCS: 99281; 99284

== ENCOUNTER 2025-03-18 19:12 | Emergency (ER) | payer MEDICARE, MEDICAID, SELFPAY ==
--- NOTE | 2025-03-18 19:32 | ED.GENADULT ---
HPI - General Adult General Chief complaint: General Medical Stated complaint: Problems at the [facility] Related Data Home Medications ?Medication ?Instructions ?Recorded ?Confirmed aripiprazole 30 mg tablet 30 mg PO DAILY 01/31/25 02/25/25 lorazepam 1 mg tablet 1 mg PO DAILY PRN Anxiety 01/31/25 02/25/25 quetiapine 100 mg tablet 100 mg PO BEDTIME 01/31/25 02/25/25 quetiapine 50 mg tablet 50 mg PO BID 01/31/25 02/25/25 olanzapine 10 mg tablet 10 mg PO TID 02/03/25 02/25/25 Previous Rx's ?Medication ?Instructions ?Recorded atorvastatin 20 mg tablet 20 mg PO QPM 90 days #90 tabs 01/10/25 tamsulosin 0.4 mg capsule 0.4 mg PO QAM 90 days #90 caps 01/10/25 cefuroxime axetil 500 mg tablet 500 mg PO BID 7 days #14 tabs 03/10/25 Allergies Allergy/AdvReac Type Severity Reaction Status Date / Time No Known Allergies (NO KNOWN Allergy Unknown UNKNOWN Verified 03/22/25 14:27 ALLERGIES) [facility] Past Medical History Medical History Acute anxiety Smoker GERD without esophagitis Tubular adenoma of colon (~2018) Personal history of nicotine dependence Constipation Back pain Schizoaffective disorder, bipolar type Anxiety Benign prostatic hyperplasia with lower urinary tract symptoms Pure hypercholesterolemia Thought disorder Bipolar 1 disorder Mood disorder Surgical History History of colonoscopy (~04/2019) History of prostate surgery (~04/2019) History of open reduction and internal fixation (ORIF) procedure (~08/2018) Family History Family History Father Lung cancer BPH (benign prostatic hyperplasia) Mother Dementia Brother Myocardial infarction Other Mental health problem Substance abuse Social History Social History Household Members: Other Housing: Other Housing Other:: Alf Do you presently have visiting nurse or other home services: No Alcohol intake: never Patient Tobacco Use Status: Current everyday Tobacco user Tobacco use type: Cigarette Cigarette Packs Per Day: 0.5 Cigarettes Per Day: 10.0 Years Smoked: 10 e-Cigarette/Vaping Use: Never Used Second Hand Smoke Exposure: Yes Advance Directives: No Advance Directives Information Provided: Yes service: No Current occupational status: employed and disabled Current occupation: [employer] Sexual orientation: Straight/Heterosexual Cognitive needs: No Hearing needs: No Vision needs: Yes Physical Exam ED Vital Signs: BMI result Body Mass Index 24.1 Course Course Course Narrative: This is a rapid medical exam performed by Walter Crawford NP: Additional HPI, ROS, PE not included below will be deferred to primary provider. Patient is a 59y/o M with hx of smoking, GERD, schizoaffective disorder presenting to the ED with complaint of feeling aggravated at his [facility]p. Upset with the staff. States he was eating dinner and that's when he became upset. Patient left the emergency department before myself or any of the other clinicians could review or explain physical exam findings, test results, need or lack there of for additional testing, treatment options, or a treatment plan. Discharge Plan Discharge Clinical Impression: Anxiety Patient Disposition: Left W/O Completing Treatment Prescriptions: No Action quetiapine 100 mg tablet 100 mg PO BEDTIME lorazepam 1 mg tablet 1 mg PO DAILY PRN (Reason: Anxiety) aripiprazole 30 mg tablet 30 mg PO DAILY quetiapine 50 mg tablet 50 mg PO BID olanzapine 10 mg tablet 10 mg PO TID cefuroxime axetil 500 mg tablet 500 mg PO BID 7 Days Qty: 14 0RF tamsulosin 0.4 mg capsule 0.4 mg PO QAM 90 Days Qty: 90 0RF atorvastatin 20 mg tablet 20 mg PO QPM 90 Days Qty: 90 3RF Discharge Date/Time: 03/18/25 20:46
[2025-03-18 19:33] VITALS: BP 122/54; PULSE 90; RESP 16; TEMP 36.3; O2SAT 96; BMI 24.1
--- OUTSIDE RECORDS SUMMARY | 2025-03-18 20:51 | XMS_ITS | Clinical Summary ---
Author Organization [facility] Address [address] [place] [address] Care Team Providers Care Air Conditioning Supervisor Name Role Phone Ref, Has No [...] Plan (01/03/2024 10:49 AM EDT): Presented from [facility] with hyponatremia (initially 123). Also had [...] Seroquel 25 mg twice daily Presents from [facility]'s forensic unit with documented history of schizophrenia. Continue home aripiprazole 20mg daily Continue home carbamazepine 500 mg twice daily Continue home Zyprexa 15 mg nightly Continue home Seroquel 25 mg twice daily Consider psychiatry consult if concern that antipsychotic medications are causing SIADH Patient presents from [facility], requires constant observation Assessment & Plan (01/02/2024 11:43 AM EDT): Home medications: aripiprazole 20 mg daily, carbamazepine 500 mg twice daily, Zyprexa 15 mg nightly, Seroquel 25 mg twice daily Presents from [facility]'s forensic unit with documented history of schizophrenia. Continue home aripiprazole 20mg daily Continue home carbamazepine 500 mg twice daily Continue home Zyprexa 15 mg nightly Continue home Seroquel 25 mg twice daily Consider psychiatry consult if concern that antipsychotic medications are causing SIADH Patient presents from [facility], requires constant observation BPH (benign prostatic hyperplasia) 12/30/2023 Assessment & Plan (01/03/2024 2:33 PM EDT): Paperwork from the [facility] indicates history of BPH with prior need for intermittent catheterization requiring urology evaluation in the past, records not available in our system). Per documentation from [facility] patient has seen urology at [facility] in [place]. He was started on Flomax outpatient. In [...] (01/02/2024 11:43 AM EDT): Paperwork from the [facility] indicates history of BPH with prior need for intermittent catheterization requiring urology evaluation in the past, records not available in our system). Per documentation from [facility] patient has seen urology at [facility] in [place]. He was started on Flomax outpatient. In [...] series) 2040 Tobacco Screening 06/05/2042 01/29/2024 Insurance [facility]IC[facility] Advance Directives * Full Code (Latest Code Status on File) Date Activated Date Inactivated Comments 12/30/2023 7:22 PM 01/03/2024 8:48 PM * Presumed Full Code Date Activated Date Inactivated Comments 12/30/2023 7:00 PM 12/30/2023 7:22 PM Care Teams Air Conditioning Supervisor Relationship Specialty Start Date End Date Ref, Has No Pcp Or DO NOT EDIT THIS RECORD VIA PROVIDER ON THE FLY PCP - General Oil Derrick Operator 12/30/23
--- OUTSIDE RECORDS SUMMARY | 2025-03-18 20:51 | XMS_ITS | Clinical Summary ---
Author Organization [facility] Address [address] [place] [address] Phone Care Team Providers Care Piece Meat Trimmer Name Role Phone Dk Rodriguez MD Primary [...] PM EDT - 03/06/2025 9:57 PM EDT [facility] [address] [place] [phone] Discharge Disposition: Home or Self Care 02/15/2025 9:21 PM EDT - 02/15/2025 9:45 PM EDT Emergency [facility] Emergency [address] [place] [phone] Encounter for Santos catheter removal (Primary Dx) Discharge Disposition: Home or Self Care 02/14/2025 8:31 PM EDT - 02/14/2025 9:27 PM EDT [facility] [address] [place] [phone] Urinary retention (Primary Dx) Discharge Disposition: Home or Self Care 02/10/2025 9:24 PM EDT - 02/10/2025 11:43 PM EDT [facility] [address] [place] [address] [place] [phone] Discharge Disposition: Home or Self Care 02/01/2025 8:58 PM EDT - 02/01/2025 10:49 PM EDT [facility] [address] [place] [phone] Discharge Disposition: Home or Self Care 01/30/2025 8:57 PM EDT - 01/31/2025 12:33 AM EDT [facility] [address] [place] [phone] Discharge Disposition: Home or Self Care 01/28/2025 9:14 PM EDT - 01/28/2025 11:28 PM EDT [facility] [address] [place] [phone] Discharge Disposition: Home or Self Care 01/14/2025 8:53 PM EDT - 01/15/2025 12:26 AM EDT [facility] [address] [place] [phone] Discharge Disposition: Home or Self Care 01/12/2025 8:45 PM EDT - 01/12/2025 11:57 PM EDT [facility] [address] [place] [phone] Dilcia Carl MD Discharge Disposition: Left Against Medical Advice from Last 3 Months Medical History Medical History Date Comments Bipolar 1 disorder ([facility] V24, [facility] V28[facility] Mood disorder ([facility] V24) Hyperactivity of bladder Social History Tobacco [...] age to complete this topic Insurance [id number] [facility] [place] [id number] MEDICARE MEDICAID - [place] Care Teams Piece Meat Trimmer Relationship Specialty Start Date End Date Dk Rodriguez MD [address] [place] [address] [address] [place] PCP - General Internal Medicine 07/16/24
--- OUTSIDE RECORDS SUMMARY | 2025-03-18 20:51 | XMS_ITS | Encounter Summary ---
Author Organization [facility] Address [address] [place] [address] Care Team Providers Care Edge Molder Name Role Phone Ref, Has No Pcp Or Primary Care Provider Unavail able Encounter Details Date Type Department Care Team (Late st Contact Info) Description 01/04/2024 Community Orders [facility] EpicCare Link [address] [place] [address] Bethany Lozano, GUEST SERVICE TEAM LEADER [address] [place] [address] Social History Tobacco Use Types Packs/Day Years [...] on filedocumented in this encounter Care Teams Edge Molder Relationship Specialty Start Date End Date Ref, Has No Pcp Or DO NOT EDIT THIS RECORD VIA PROVIDER ON THE FLY PCP - General Paint Roller Cover Machine Setter 12/30/23 documented as of this encounter
== END 2025-03-18 20:46 | disposition left against medical advice (07) ==
LOC: HO.ED 20:48
PROVIDERS: Emergency Provider Emergency Medicine; PCP Internal Medicine
DX: F41.9 Anxiety disorder, unspecified (principal); Z53.29 Procedure and treatment not carried out because of patient's decision for other reasons; F17.200 Nicotine dependence, unspecified, uncomplicated; Z71.6 Tobacco abuse counseling; K21.9 Gastro-esophageal reflux disease without esophagitis; E78.00 Pure hypercholesterolemia, unspecified
CPT/HCPCS: 99281

== ENCOUNTER 2025-03-19 18:52 | Emergency (ER) | payer MEDICARE, MEDICAID, SELFPAY ==
[2025-03-19 19:04] VITALS: BP 118/70; PULSE 93; RESP 16; TEMP 36.4; O2SAT 97; BMI 20.3
--- NOTE | 2025-03-19 19:06 | ED.GENADULT ---
HPI - General Adult General Chief complaint: Psychiatric Symptoms Stated complaint: crisis Related Data Home Medications ?Medication ?Instructions ?Recorded ?Confirmed aripiprazole 30 mg tablet 30 mg PO DAILY 01/31/25 02/25/25 lorazepam 1 mg tablet 1 mg PO DAILY PRN Anxiety 01/31/25 02/25/25 quetiapine 100 mg tablet 100 mg PO BEDTIME 01/31/25 02/25/25 quetiapine 50 mg tablet 50 mg PO BID 01/31/25 02/25/25 olanzapine 10 mg tablet 10 mg PO TID 02/03/25 02/25/25 Previous Rx's ?Medication ?Instructions ?Recorded atorvastatin 20 mg tablet 20 mg PO QPM 90 days #90 tabs 01/10/25 tamsulosin 0.4 mg capsule 0.4 mg PO QAM 90 days #90 caps 01/10/25 cefuroxime axetil 500 mg tablet 500 mg PO BID 7 days #14 tabs 03/10/25 Allergies Allergy/AdvReac Type Severity Reaction Status Date / Time No Known Allergies (NO KNOWN Allergy Unknown UNKNOWN Verified 03/19/25 19:07 ALLERGIES) [facility] Past Medical History Medical History Acute anxiety Smoker GERD without esophagitis Tubular adenoma of colon (~2018) Personal history of nicotine dependence Constipation Back pain Schizoaffective disorder, bipolar type Anxiety Benign prostatic hyperplasia with lower urinary tract symptoms Pure hypercholesterolemia Thought disorder Bipolar 1 disorder Mood disorder Surgical History History of colonoscopy (~04/2019) History of prostate surgery (~04/2019) History of open reduction and internal fixation (ORIF) procedure (~08/2018) Family History Family History Father Lung cancer BPH (benign prostatic hyperplasia) Mother Dementia Brother Myocardial infarction Other Mental health problem Substance abuse Social History Social History Household Members: Other Housing: Other Housing Other:: Correction Do you presently have visiting nurse or other home services: No Alcohol intake: never Patient Tobacco Use Status: Current everyday Tobacco user Tobacco use type: Cigarette Cigarette Packs Per Day: 0.5 Cigarettes Per Day: 10.0 Years Smoked: 10 e-Cigarette/Vaping Use: Never Used Second Hand Smoke Exposure: Yes Advance Directives: No Advance Directives Information Provided: No Do you have a plan to hurt others: No Plan service: No Current occupational status: employed and disabled Current occupation: [employer] Sexual orientation: Straight/Heterosexual Cognitive needs: No Hearing needs: No Vision needs: Yes Physical Exam ED Vital Signs: Vital Signs - 24 hr 03/19/25 19:04 Temperature 97.6 F Pulse Rate 93 Respiratory Rate 16 Blood Pressure 118/70 Pulse Oximetry 97 Oxygen Delivery Method Room Air BMI result Body Mass Index 20.3 Course Course Course Narrative: This is a Rapid Medical Examination (RME) performed by Addy Regalado PA-C in triage. Full HPI, ROS, assessment and treatment plan per primary provider in the Main ED. Hx: 59 yo M w/ hx of of BPH, chronic suprapubic pain, GERD, HLD, and schizoaffective disorder here feeling aggrevated w/ his grop home staff. no physical complaints. patient has presented for similar almost every day over the last 2-3 weeks. PE/vitals: well appearing. Plan: further eval in back after being traiged patient states I'm just gonna walk home . Reevaluation(s) Reevaluation #1: Patient left the emergency department before myself or any of the other clinicians could review or explain physical exam findings, test results, need or lack there of for additional testing, treatment options, or a treatment plan. Discharge Plan Discharge Clinical Impression: Acute anxiety, Adult general medical exam Patient Disposition: Left W/O Completing Treatment Prescriptions: No Action quetiapine 100 mg tablet 100 mg PO BEDTIME lorazepam 1 mg tablet 1 mg PO DAILY PRN (Reason: Anxiety) aripiprazole 30 mg tablet 30 mg PO DAILY quetiapine 50 mg tablet 50 mg PO BID olanzapine 10 mg tablet 10 mg PO TID cefuroxime axetil 500 mg tablet 500 mg PO BID 7 Days Qty: 14 0RF tamsulosin 0.4 mg capsule 0.4 mg PO QAM 90 Days Qty: 90 0RF atorvastatin 20 mg tablet 20 mg PO QPM 90 Days Qty: 90 3RF Interventions: Saline-Suicide Risk Severity Scale Last Done: 03/19/25 19:07 Discharge Date/Time: 03/19/25 19:33
--- OUTSIDE RECORDS SUMMARY | 2025-03-19 19:41 | XMS_ITS | Encounter Summary ---
Author Organization [facility] Address [address] [place] [address] Care Team Providers Care Intel Recruiter Name Role Phone Ref, Has No Pcp Or Primary Care Provider Unavail able Encounter Details Date Type Department Care Team (Late st Contact Info) Description 01/04/2024 Community Orders [facility] EpicCare Link [address] [place] [address] Bethany Lozano, BRIM CUTTER [address] [place] [address] Social History Tobacco Use Types Packs/Day Years [...] on filedocumented in this encounter Care Teams Intel Recruiter Relationship Specialty Start Date End Date Ref, Has No Pcp Or DO NOT EDIT THIS RECORD VIA PROVIDER ON THE FLY PCP - General Station Installation Supervisor 12/30/23 documented as of this encounter
--- OUTSIDE RECORDS SUMMARY | 2025-03-19 19:41 | XMS_ITS | Clinical Summary ---
Author Organization [facility] Address [address] [place] [address] Phone Care Team Providers Care Flour Mixer Name Role Phone Dk Rodriguez MD Primary Care Provider [phone] Allergies No known active allergies Medications tamsulosin (FLOMAX) 0.4 mg 24 hr capsule Take 1 capsule (0.4 mg total) by mouth 1 (one) time each day for 7 days. Capsules should be taken 30 minutes following the same meal each day. 7 capsule 02/23/20 Encounters Date Type Department Care Team Description 03/06/2025 9:24 PM EDT - 03/06/2025 9:57 PM EDT [facility] Emergency [address] [place] [phone] Discharge Disposition: Home or Self Care 02/15/2025 9:21 PM EDT - 02/15/2025 9:[address] [facility] Emergency [address] [place] [phone] Encounter for Santos catheter removal (Primary Dx) Discharge Disposition: Home or Self Care 02/14/2025 8:31 PM EDT - 02/14/2025 9:27 PM EDT [facility] Emergency [address] [place] [phone] Urinary retention (Primary Dx) Discharge Disposition: Home or Self Care 02/10/2025 9:24 PM EDT - 02/10/2025 11:43 PM EDT [facility] Emergency [address] [place] [address] [place] [phone] Discharge Disposition: Home or Self Care 02/01/2025 8:58 PM EDT - 02/01/2025 10:49 PM EDT [facility] Emergency [address] [place] [address] Discharge Disposition: Home or Self Care 01/30/2025 8:57 PM EDT - 01/31/2025 12:33 AM EDT [facility] Emergency [address] [place] [phone] Discharge Disposition: Home or Self Care 01/28/2025 9:14 PM EDT - 01/28/2025 11:28 PM EDT [facility] Emergency [address] [place] [phone] Discharge Disposition: Home or Self Care 01/14/2025 8:53 PM EDT - 01/15/2025 12:26 AM EDT [facility] Emergency [address] [place] [phone] Discharge Disposition: Home or Self Care 01/12/2025 8:45 PM EDT - 01/12/2025 11:57 PM EDT [facility] Emergency [address] [place] [phone] Dilcia Carl MD Discharge Disposition: Left Against Medical Advice from Last 3 Months Medical History Medical History Date Comments Bipolar 1 disorder ([facility] V24, [facility] V28) Mood disorder ([facility] V24) Hyperactivity of bladder Social History Tobacco [...] age to complete this topic Insurance [facility] [place] [address] MEDICARE MEDICAID - [place] Care Teams Flour Mixer Relationship Specialty Start Date End Date Dk Rodriguez MD [address] [place] [address] [address] [place] PCP - General Internal Medicine 07/16/24
--- OUTSIDE RECORDS SUMMARY | 2025-03-19 19:41 | XMS_ITS | Clinical Summary ---
Author Organization [facility] Address [address] [place] [address] Care Team Providers Care Marketing Underwriter Name Role Phone Ref, Has No Pcp [...] Plan (01/03/2024 2:32 PM EDT): Presents from [facility] in the setting of urinary retention [...] Plan (01/03/2024 10:49 AM EDT): Presented from [facility] with hyponatremia (initially 123). Also had dizziness/lightheadedness, [...] Plan (01/02/2024 11:43 AM EDT): Presents from [facility] in the setting of urinary retention [...] Seroquel 25 mg twice daily Presents from [facility]'s forensic unit with documented history of schizophrenia. 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 Continue home aripiprazole 20mg daily Continue home carbamazepine 500 mg twice daily Continue home Zyprexa 15 mg nightly Continue home Seroquel 25 mg twice daily Consider psychiatry consult if concern that antipsychotic medications are causing SIADH Patient presents from [facility], requires constant observation BPH (benign prostatic hyperplasia) 12/30/2023 Assessment & Plan (01/03/2024 2:33 PM EDT): Paperwork from the [facility] center indicates history of BPH with prior need for intermittent catheterization requiring urology evaluation in the past, records not available in our system). Per documentation from [facility] patient has seen urology at [facility] in [place]. He was started on Flomax outpatient. In [...] 11:43 AM EDT): Paperwork from the [facility] indicates history of BPH with prior need for intermittent catheterization requiring urology evaluation in the past, records not available in our system). Per documentation from [facility] patient has seen urology at [facility] in [place]. He was started on Flomax outpatient. In [...] series) 2040 Tobacco Screening 06/05/2042 01/29/2024 Insurance [facility] MEDICARE [facility] Advance Directives * Full Code (Latest Code Status on File) Date Activated Date Inactivated Comments 12/30/2023 7:22 PM 01/03/2024 8:48 PM * Presumed Full Code Date Activated Date Inactivated Comments 12/30/2023 7:00 PM 12/30/2023 7:22 PM Care Teams Marketing Underwriter Relationship Specialty Start Date End Date Ref, Has No Pcp Or DO NOT EDIT THIS RECORD VIA PROVIDER ON THE FLY PCP - General Bottomer Operator 12/30/23
== END 2025-03-19 19:33 | disposition left against medical advice (07) ==
PROVIDERS: Emergency Provider Emergency Medicine; PCP Internal Medicine
DX: F41.9 Anxiety disorder, unspecified (principal); F17.210 Nicotine dependence, cigarettes, uncomplicated; Z79.899 Other long term (current) drug therapy
CPT/HCPCS: 99283

== ENCOUNTER 2025-03-20 19:31 | Emergency (ER) | payer MEDICARE, MEDICAID, SELFPAY ==
--- OUTSIDE RECORDS SUMMARY | 2025-03-20 20:07 | XMS_ITS | Clinical Summary ---
Author Organization [facility] Address [address] [place] [address] Care Team Providers Care Senior Java Web Developer Name Role Phone Ref, Has No Pcp [...] (01/03/2024 2:32 PM EDT): Presents from [facility] in the setting of urinary [...] Plan (01/03/2024 10:49 AM EDT): Presented from [facility] with hyponatremia (initially 123). Also [...] (01/02/2024 11:43 AM EDT): Presents from [facility] in the setting of urinary [...] Seroquel 25 mg twice daily Presents from [facility]'s forensic unit with documented history of schizophrenia. Continue home aripiprazole 20mg daily Continue home carbamazepine 500 mg twice daily Continue home Zyprexa 15 mg nightly Continue home Seroquel 25 mg twice daily Consider psychiatry consult if concern that antipsychotic medications are causing SIADH Patient presents from [facility], requires constant observation Assessment & Plan (01/02/2024 11:43 AM EDT): Home medications: aripiprazole 20 mg daily, carbamazepine 500 mg twice daily, Zyprexa 15 mg nightly, Seroquel 25 mg twice daily Presents from [facility]'s forensic unit with documented history of schizophrenia. Continue home aripiprazole 20mg daily Continue home carbamazepine 500 mg twice daily Continue home Zyprexa 15 mg nightly Continue home Seroquel 25 mg twice daily Consider psychiatry consult if concern that antipsychotic medications are causing SIADH Patient presents from [facility], requires constant observation BPH (benign prostatic hyperplasia) 12/30/2023 Assessment & Plan (01/03/2024 2:33 PM EDT): Paperwork from the [facility] center indicates history of BPH with prior need for intermittent catheterization requiring urology evaluation in the past, records not available in our system). Per documentation from [facility] patient has seen urology at [facility] in [place]. He was started on Flomax outpatient. In [...] (01/02/2024 11:43 AM EDT): Paperwork from the [facility] indicates history of BPH with prior need for intermittent catheterization requiring urology evaluation in the past, records not available in our system). Per documentation from [facility] patient has seen urology at [facility] in [place]. He was started on Flomax outpatient. In [...] series) 2040 Tobacco Screening 06/05/2042 01/29/2024 Insurance [facility] MEDICARE [facility] Advance Directives * Full Code (Latest Code Status on File) Date Activated Date Inactivated Comments 12/30/2023 7:22 PM 01/03/2024 8:48 PM * Presumed Full Code Date Activated Date Inactivated Comments 12/30/2023 7:00 PM 12/30/2023 7:22 PM Care Teams Senior Java Web Developer Relationship Specialty Start Date End Date Ref, Has No Pcp Or DO NOT EDIT THIS RECORD VIA PROVIDER ON THE FLY PCP - General Air Moving Technician 12/30/23
--- OUTSIDE RECORDS SUMMARY | 2025-03-20 20:07 | XMS_ITS | Clinical Summary ---
Author Organization [facility] Address [address] [place] [address] Phone Care Team Providers Care Harvest Worker Field Crop Name Role Phone Dk Rodriguez MD Primary [...] PM EDT - 03/06/2025 9:57 PM EDT [facility] Emergency [address] [place] [phone] Discharge Disposition: Home or Self Care 02/15/2025 9:21 PM EDT - 02/15/2025 9:45 PM EDT Emergency [facility] Emergency [address] [place] [phone] Encounter for Santos catheter removal (Primary Dx) Discharge Disposition: Home or Self Care 02/14/2025 8:31 PM EDT - 02/14/2025 9:27 PM EDT [facility] Emergency [address] [place] [phone] Urinary retention (Primary Dx) Discharge Disposition: Home or Self Care 02/10/2025 9:24 PM EDT - 02/10/2025 11:43 PM EDT [facility] Emergency [address] [place] [address] [place] [phone] Discharge Disposition: Home or Self Care 02/01/2025 8:58 PM EDT - 02/01/2025 10:49 PM EDT [facility] Emergency [address] [place] [phone] Discharge Disposition: Home or Self Care 01/30/2025 8:57 PM EDT - 01/31/2025 12:33 AM EDT [facility] Emergency [address] [place] [phone] Discharge Disposition: Home or Self Care 01/28/2025 9:14 PM EDT - 01/28/2025 11:28 PM EDT [facility] Emergency [address] [place] [phone] Discharge Disposition: Home or Self Care 01/14/2025 8:53 PM EDT - 01/15/2025 12:26 AM EDT [facility] Emergency [address] [place] [phone] Discharge Disposition: Home or Self Care 01/12/2025 8:45 PM EDT - 01/12/2025 11:57 PM EDT [facility] Emergency [address] [place] [phone] Dilcia Carl MD Discharge Disposition: Left Against Medical Advice from Last 3 Months Medical History Medical History Date Comments Bipolar 1 disorder ([facility] V24, [facility] V28) Mood disorder ([facility] V24) Hyperactivity of bladder Social History [...] Insurance 69-B [facility] [place] [address] MEDICARE MEDICAID - [place] Care Teams Harvest Worker Field Crop Relationship Specialty Start Date End Date Dk Rodriguez MD [address] [place] [address] [address] [place] PCP - General Internal Medicine 07/16/24
--- OUTSIDE RECORDS SUMMARY | 2025-03-20 20:07 | XMS_ITS | Encounter Summary ---
Author Organization [facility] Address [address] [place] [address] Care Team Providers Care Nurse Navigator Name Role Phone Ref, Has No Pcp Or Primary Care Provider Unavail able Encounter Details Date Type Department Care Team (Late st Contact Info) Description 01/04/2024 Community Orders [facility] EpicCare Link [address] [place] [address] Bethany Lozano, ELEVATOR SERVICE MECHANIC [address] [place] [address] Social History Tobacco Use Types Packs/Day Years [...] on filedocumented in this encounter Care Teams Nurse Navigator Relationship Specialty Start Date End Date Ref, Has No Pcp Or DO NOT EDIT THIS RECORD VIA PROVIDER ON THE FLY PCP - General Mannequin Wig Maker 12/30/23 documented as of this encounter
== END 2025-03-20 20:05 | disposition left against medical advice (07) ==
PROVIDERS: Emergency Provider Emergency Medicine; PCP Internal Medicine
DX: Z04.9 Encounter for examination and observation for unspecified reason (principal); Z53.21 Procedure and treatment not carried out due to patient leaving prior to being seen by health care provider

== ENCOUNTER 2025-03-21 20:46 | Emergency (ER) | payer MEDICARE, MEDICAID, SELFPAY ==
[2025-03-21 20:56] VITALS: BP 129/64; PULSE 88; RESP 20; TEMP 36.4; O2SAT 96; BMI 20.5
--- OUTSIDE RECORDS SUMMARY | 2025-03-21 21:39 | XMS_ITS | Clinical Summary ---
Author Organization [facility] Address [address] [place] [address] Care Team Providers Care Car Inspection And Repair Manager Name Role Phone Ref, Has No [...] Plan (01/03/2024 2:32 PM EDT): Presents from [facility] in the setting of urinary [...] Plan (01/03/2024 10:49 AM EDT): Presented from [facility] with hyponatremia (initially 123). Also [...] Plan (01/02/2024 11:43 AM EDT): Presents from [facility] in the setting of urinary [...] (01/03/2024 2:33 PM EDT): [facility]work [facility] indicates history of BPH with prior need for intermittent catheterization requiring urology evaluation in the past, records not available in our system). Per documentation from [facility] patient has seen urology at [facility] in [place]. He was started on Flomax outpatient. In [...] available in our system). Per documentation from [facility] patient has seen urology at [facility] in [place]. He was started on Flomax outpatient. In [...] series) 2040 Tobacco Screening 06/05/2042 01/29/2024 Insurance [facility] MEDICARE [facility] Advance Directives * Full Code (Latest Code Status on File) Date Activated Date Inactivated Comments 12/30/2023 7:22 PM 01/03/2024 8:48 PM * Presumed Full Code Date Activated Date Inactivated Comments 12/30/2023 7:00 PM 12/30/2023 7:22 PM Care Teams Car Inspection And Repair Manager Relationship Specialty Start Date End Date Ref, Has No Pcp Or DO NOT EDIT THIS RECORD VIA PROVIDER ON THE FLY PCP - General Pharmacology Professor 12/30/23
--- OUTSIDE RECORDS SUMMARY | 2025-03-21 21:39 | XMS_ITS | Clinical Summary ---
Author Organization [facility] Address [address] [place] [address] Phone Care Team Providers Care Manager Army Name Role Phone Dk Rodriguez MD Primary [...] PM EDT - 03/06/2025 9:57 PM EDT [facility] Emergency [address] [place] [phone] Discharge Disposition: Home or Self Care 02/15/2025 9:21 PM EDT - 02/15/2025 9:45 PM EDT Emergency [facility] Emergency [address] [place] [phone] Encounter for Santos catheter removal (Primary Dx) Discharge Disposition: Home or Self Care 02/14/2025 8:31 PM EDT - 02/14/2025 9:27 PM EDT [facility] Emergency [address] [place] [phone] Urinary retention (Primary Dx) Discharge Disposition: Home or Self Care 02/10/2025 9:24 PM EDT - 02/10/2025 11:43 PM EDT [facility] Emergency [address] [place] [address] [place] [phone] Discharge Disposition: Home or Self Care 02/01/2025 8:58 PM EDT - 02/01/2025 10:49 PM EDT [facility] Emergency [address] [place] [phone] Discharge Disposition: Home or Self Care 01/30/2025 8:57 PM EDT - 01/31/2025 12:33 AM EDT [facility] Emergency [address] [place] [phone] Discharge Disposition: Home or Self Care 01/28/2025 9:14 PM EDT - 01/28/2025 11:28 PM EDT [facility] Emergency [address] [place] [phone] Discharge Disposition: Home or Self Care 01/14/2025 8:53 PM EDT - 01/15/2025 12:26 AM EDT [facility] Emergency [address] [place] [phone] Discharge Disposition: Home or Self Care 01/12/2025 8:45 PM EDT - 01/12/2025 11:57 PM EDT [facility] Emergency [address] [place] [phone] Dilcia Carl MD Discharge Disposition: Left Against Medical Advice from Last 3 Months Medical History Medical History Date Comments Bipolar 1 disorder ([facility] V24, [facility] V28) Mood disorder ([facility] V24) Hyperactivity of bladder Social History [...] age to complete this topic Insurance 69-B [facility] [place] [address] [place]IC[place] MEDICAID - [place] Care Teams Manager Army Relationship Specialty Start Date End Date Dk Rodriguez MD [address] [place] [address] [address] [place] PCP - General Internal Medicine 07/16/24
--- OUTSIDE RECORDS SUMMARY | 2025-03-21 21:39 | XMS_ITS | Encounter Summary ---
Author Organization [facility] Address [address] [place] [address] Care Team Providers Care Bucket Chucker Name Role Phone Ref, Has No Pcp Or Primary Care Provider Unavail able Encounter Details Date Type Department Care Team (Late st Contact Info) Description 01/04/2024 Community Orders [facility] EpicCare Link [address] [place] [address] Bethany Lozano, COSMETOLOGY INSTRUCTOR [address] [place] [address] Social History Tobacco Use Types Packs/Day Years [...] on filedocumented in this encounter Care Teams Bucket Chucker Relationship Specialty Start Date End Date Ref, Has No Pcp Or DO NOT EDIT THIS RECORD VIA PROVIDER ON THE FLY PCP - General Cad Design Engineer 12/30/23 documented as of this encounter
== END 2025-03-21 21:46 | disposition left against medical advice (07) ==
PROVIDERS: Emergency Provider Emergency Medicine; PCP Internal Medicine
DX: F43.9 Reaction to severe stress, unspecified (principal)
CPT/HCPCS: 99281

== ENCOUNTER 2025-03-22 14:18 | Emergency (ER) | payer MEDICARE, MEDICAID, SELFPAY ==
[2025-03-22 14:25] VITALS: BP 120/65; PULSE 97; RESP 16; TEMP 36.6; O2SAT 95; BMI 21.8
--- NOTE | 2025-03-22 14:26 | ED_ITS ---
HPI - General Adult General Chief complaint: General Medical Stated complaint: psychiatric crisis Related Data Home Medications ?Medication ?Instructions ?Recorded ?Confirmed aripiprazole 30 mg tablet 30 mg PO DAILY 01/31/2502/04 lorazepam 1 mg tablet 1 mg PO DAILY PRN Anxiety 02/25/25 quetiapine 100 mg tablet 100 mg PO BEDTIME 01/31/25 0 02/25/25 quetiapine 50 mg tablet 50 mg PO BID 01/31/25 olanzapine 10 mg tablet 10 mg PO TID 02/03/25 Previous Rx's ?Medication ?Instructions ?Recorded atorvastatin 20 mg tablet 20 mg PO QPM 90 days #90 tab s 01/10/25 tamsulosin 0.4 mg capsule 0.4 mg PO QAM 90 days #90 ca ps 01/10/25 cefuroxime axetil 500 mg tablet 500 mg PO BID 7 days # 14 tabs 03/10/25 Allergies Allergy/AdvReac Type Severity Reaction Status Date / Time No Known Allergies (NO KNOWN Allergy Unknown UNKNOWN Verified 03/26/25 20:14 ALLERGIES) [facility] Past Medical History Medical History Acute anxiety Smoker GERD without esophagitis Tubular adenoma of colon (~2018) Personal history of nicotine dependence Constipation Back pain Schizoaffective disorder, bipolar type Anxiety Benign prostatic hyperplasia with lower urinary tract symptoms Pure hypercholesterolemia Thought disorder Bipolar 1 disorder Mood disorder Surgical History History of colonoscopy (~04/2019) History of prostate surgery (~04/2019) History of open reduction and internal fixation (ORIF) procedure (~08/2018) Family History Family History Father Lung cancer BPH (benign prostatic hyperplasia) Mother Dementia Brother Myocardial infarction Other Mental health problem Substance abuse Social History Social History Household Members: Other Housing: Other Housing Other:: Senior Care Do you presently have visiting nurse or other home services: No Alcohol intake: never Patient Tobacco Use Status: Current everyday Tobacco user Tobacco use type: Cigarette Cigarette Packs Per Day: 0.5 Cigarettes Per Day: 10.0 Years Smoked: 10 e-Cigarette/Vaping Use: Never Used Second Hand Smoke Exposure: Yes Advance Directives: No Advance Directives Information Provided: No service: No Current occupational status: employed and disabled Current occupation: [employer] Sexual orientation: Straight/Heterosexual Cognitive needs: No Hearing needs: No Vision needs: Yes Physical Exam ED Vital Signs: BMI result Body Mass Index 21.8 Course Course Course Narrative: This is a rapid medical exam performed by Walter Crawford NP: Additional HPI, ROS, PE not included below will be deferred to primary provider. Patient is a 59y/o M with history of smoking, CAUTI, GERD, schizoaffective disorder, bipolar type, anxiety presenting to the ED stating that he walked to the ED because he was upset that his access to food was restricted at his [place] [facility]. Presents frequenty to the ED for similar complaint. Denies any SI/HI. Patient left the emergency department before myself or any of the other clinicians could review or explain physical exam findings, test results, need or lack there of for additional testing, treatment options, or a treatment plan. Discharge Plan Discharge Clinical Impression: Anxiety with agitation Patient Disposition: Left W/O Completing Treatment Prescriptions: No Action quetiapine 100 mg tablet 100 mg PO BEDTIME lorazepam 1 mg tablet 1 mg PO DAILY PRN (Reason: Anxiety) aripiprazole 30 mg tablet 30 mg PO DAILY quetiapine 50 mg tablet 50 mg PO BID olanzapine 10 mg tablet 10 mg PO TID cefuroxime axetil 500 mg tablet 500 mg PO BID 7 Days Qty: 14 0RF tamsulosin 0.4 mg capsule 0.4 mg PO QAM 90 Days Qty: 90 0RF atorvastatin 20 mg tablet 20 mg PO QPM 90 Days Qty: 90 3RF Discharge Date/Time: 03/22/25 17:08
== END 2025-03-22 17:08 | disposition left against medical advice (07) ==
PROVIDERS: Emergency Provider Emergency Medicine
DX: F41.9 Anxiety disorder, unspecified (principal); R45.1 Restlessness and agitation; F17.200 Nicotine dependence, unspecified, uncomplicated; Z71.6 Tobacco abuse counseling
CPT/HCPCS: 99281

== ENCOUNTER 2025-03-23 07:10 | Emergency (ER) | payer MEDICARE, MEDICAID, SELFPAY ==
[2025-03-23 07:12] VITALS: BP 118/68; PULSE 112; RESP 20; TEMP 36.1; O2SAT 97; BMI 19.7
--- OUTSIDE RECORDS SUMMARY | 2025-03-23 07:27 | XMS_ITS | Clinical Summary ---
Author Organization [facility] Address [address] [place] [address] Phone Care Team Providers Care Factory Maintenance Manager Name Role Phone Dk Rodriguez MD [...] PM EDT - 03/06/2025 9:57 PM EDT [facility] Emergency [address] [place] [phone] Discharge Disposition: Home or Self Care 02/15/2025 9:21 PM EDT - 02/15/2025 9:45 PM EDT Emergency [facility] Emergency [address] [place] [phone] Encounter for Santos catheter removal (Primary Dx) Discharge Disposition: Home or Self Care 02/14/2025 8:31 PM EDT - 02/14/2025 9:27 PM EDT [facility] Emergency [address] [place] [phone] Urinary retention (Primary Dx) Discharge Disposition: Home or Self Care 02/10/2025 9:24 PM EDT - 02/10/2025 11:43 PM EDT [facility] Emergency [address] [place] [address] [place] [phone] Discharge Disposition: Home or Self Care 02/01/2025 8:58 PM EDT - 02/01/2025 10:49 PM EDT [facility] Emergency [address] [place] [phone] Discharge Disposition: Home or Self Care 01/30/2025 8:57 PM EDT - 01/31/2025 12:33 AM EDT [facility] Emergency [address] [place] [phone] Discharge Disposition: Home or Self Care 01/28/2025 9:14 PM EDT - 01/28/2025 11:28 PM EDT [facility] Emergency [address] [place] [phone] Discharge Disposition: Home or Self Care 01/14/2025 8:53 PM EDT - 01/15/2025 12:26 AM EDT [facility] Emergency [address] [place] [phone] Discharge Disposition: Home or Self Care 01/12/2025 8:45 PM EDT - 01/12/2025 11:57 PM EDT [facility] Emergency [address] [place] [phone] Dilcia Carl MD Discharge Disposition: Left Against Medical Advice from Last 3 Months Medical History Medical History Date Comments Bipolar 1 disorder ([facility] V24, [facility] V28[facility] Mood disorder ([facility] V24) Hyperactivity of bladder [...] age to complete this topic Insurance [id number] [place] [address] MEDICARE MEDICAID - [place] Care Teams Factory Maintenance Manager Relationship Specialty Start Date End Date Dk Rodriguez MD [address] [place] [address] [address] [place] PCP - General Internal Medicine 07/16/24
--- OUTSIDE RECORDS SUMMARY | 2025-03-23 07:27 | XMS_ITS | Clinical Summary ---
Author Organization [facility] Address [address] [place] [address] Care Team Providers Care Bed And Breakfast Operator Name Role Phone Ref, Has No [...] Plan (01/03/2024 2:32 PM EDT): Presents from [facility] in the setting of urinary [...] Plan (01/03/2024 10:49 AM EDT): Presented from [facility] with hyponatremia (initially 123). Also [...] Plan (01/02/2024 11:43 AM EDT): Presents from [facility] in the setting of urinary [...] Seroquel 25 mg twice daily Presents from [facility]'s forensic unit with documented history of schizophrenia. Continue home aripiprazole 20mg daily Continue home carbamazepine 500 mg twice daily Continue home Zyprexa 15 mg nightly Continue home Seroquel 25 mg twice daily Consider psychiatry consult if concern that antipsychotic medications are causing SIADH Patient presents from [facility], requires constant observation Assessment & Plan (01/02/2024 11:43 AM EDT): Home medications: aripiprazole 20 mg daily, carbamazepine 500 mg twice daily, Zyprexa 15 mg nightly, Seroquel 25 mg twice daily Presents from [facility]'s forensic unit with documented history of schizophrenia. Continue home aripiprazole 20mg daily Continue home carbamazepine 500 mg twice daily Continue home Zyprexa 15 mg nightly Continue home Seroquel 25 mg twice daily Consider psychiatry consult if concern that antipsychotic medications are causing SIADH Patient presents from [facility], requires constant observation BPH (benign prostatic hyperplasia) 12/30/2023 Assessment & Plan (01/03/2024 2:33 PM EDT): Paperwork from the [facility] center indicates history of BPH with prior need for intermittent catheterization requiring urology evaluation in the past, records not available in our system). Per documentation from [facility] patient has seen urology at [facility] in [place]. He was started on Flomax outpatient. In [...] (01/02/2024 11:43 AM EDT): Paperwork from [facility] indicates history of BPH with prior need for intermittent catheterization requiring urology evaluation in the past, records not available in our system). Per documentation from [facility] patient has seen urology at [facility] in [place]. He was started on Flomax outpatient. In [...] series) 2040 Tobacco Screening 06/05/2042 01/29/2024 Insurance [facility] MEDICARE [facility] Advance Directives * Full Code (Latest Code Status on File) Date Activated Date Inactivated Comments 12/30/2023 7:22 PM 01/03/2024 8:48 PM * Presumed Full Code Date Activated Date Inactivated Comments 12/30/2023 7:00 PM 12/30/2023 7:22 PM Care Teams Bed And Breakfast Operator Relationship Specialty Start Date End Date Ref, Has No Pcp Or DO NOT EDIT THIS RECORD VIA PROVIDER ON THE FLY PCP - General Method Consultant 12/30/23
--- OUTSIDE RECORDS SUMMARY | 2025-03-23 07:27 | XMS_ITS | Encounter Summary ---
Author Organization [facility] Address [address] [place] [address] Care Team Providers Care Whitewasher Name Role Phone Ref, Has No Pcp Or Primary Care Provider Unavail able Encounter Details Date Type Department Care Team (Late st Contact Info) Description 01/04/2024 Community Orders [facility] EpicCare Link [address] [place] [address] Bethany Lozano, PROFESSOR OF PHILOSOPHY [address] [place] [address] Social History Tobacco Use Types Packs/Day Years [...] on filedocumented in this encounter Care Teams Whitewasher Relationship Specialty Start Date End Date Ref, Has No Pcp Or DO NOT EDIT THIS RECORD VIA PROVIDER ON THE FLY PCP - General Talent Coordinator 12/30/23 documented as of this encounter
--- NOTE | 2025-03-23 07:45 | PC.NURSE ---
pt came into triage stating he needed to talk with somebody, after a few minutes waiting he walked up to registration stating im sorry, im sorry, im just leaving and left.
== END 2025-03-23 07:44 | disposition left against medical advice (07) ==
PROVIDERS: Emergency Provider Emergency Medicine; PCP Internal Medicine
DX: Z71.1 Person with feared health complaint in whom no diagnosis is made (principal); Z53.21 Procedure and treatment not carried out due to patient leaving prior to being seen by health care provider
CPT/HCPCS: 99281

== ENCOUNTER 2025-03-24 10:20 | Emergency (ER) | payer MEDICARE, MEDICAID, SELFPAY ==
--- NOTE | 2025-03-24 10:37 | ED.ANXIETY ---
HPI - Anxiety General Chief Complaint: Behavioral Concerns Stated Complaint: Not being medicated by house Time Seen by Provider: 03/24/25 10:35 Source: patient and old records reviewed Mode of arrival: ambulatory Limitations: no limitations History of Present Illness ED Provider: NATALIE MCKAY narrative: 59 yo male with PMH of GERD, UTI with catheter, schizoaffective bipolar d/o, anxiety, BPH, HLD here with c/o being upset with his [facility]. He has no SI/HI. He reports they don't medicate him. He has been here numerous times and then usually abruptly leaves without eval. He has a chronic issue with is mcc. He denies any medical issues at this time. He on arrival asked for a ride home. MD complaint: anxiety Onset (ago): year(s) Severity: moderate Place: home History of similar episodes: Yes Provoking factors: emotional stress Relieving factors: nothing Exacerbating factors: nothing Associated symptoms: denies other symptoms Related Data Home Medications ?Medication ?Instructions ?Recorded ?Confirmed aripiprazole 30 mg tablet 30 mg PO DAILY 01/31/25 02/25/25 lorazepam 1 mg tablet 1 mg PO DAILY PRN Anxiety 01/31/25 02/25/25 quetiapine 100 mg tablet 100 mg PO BEDTIME 01/31/25 02/25/25 quetiapine 50 mg tablet 50 mg PO BID 01/31/25 02/25/25 olanzapine 10 mg tablet 10 mg PO TID 02/03/25 02/25/25 Previous Rx's ?Medication ?Instructions ?Recorded atorvastatin 20 mg tablet 20 mg PO QPM 90 days #90 tabs 01/10/25 tamsulosin 0.4 mg capsule 0.4 mg PO QAM 90 days #90 caps 01/10/25 cefuroxime axetil 500 mg tablet 500 mg PO BID 7 days #14 tabs 03/10/25 Allergies Allergy/AdvReac Type Severity Reaction Status Date / Time No Known Allergies (NO KNOWN Allergy Unknown UNKNOWN Verified 03/24/25 10:39 ALLERGIES) Review of Systems Review of Systems: Constitutional : No Fever, No Chills, No Fatigue ENT/Mouth : No sore throat, No Rhinorrhea Eyes: No Eye Pain, No Swelling, No Redness Cardiovascular : No Chest Pain, No SOB, No Dyspnea on Exertion Respiratory : No Cough, No Sputum Gastrointestinal : No Nausea, No Vomiting, No Diarrhea, No abdominal Pain Genitourinary : No Dysuria, No Urinary Frequency, No Hematuria, Musculoskeletal : No joint pain, No Myalgias, No Joint Swelling Skin : No Skin Lesions, No rash Neuro : No Weakness, No Numbness, No Dizziness, noHeadache Psych : pos Anxiety/Panic, No Depression All other systems reviewed and are negative Yes all other systems are reviewed and are negative [facility] Past Medical History Attestation statement: The following information was validated with the patient. Source: old records reviewed Medical History Acute anxiety Smoker GERD without esophagitis Tubular adenoma of colon (~2018) Personal history of nicotine dependence Constipation Back pain Schizoaffective disorder, bipolar type Anxiety Benign prostatic hyperplasia with lower urinary tract symptoms Pure hypercholesterolemia Thought disorder Bipolar 1 disorder Mood disorder Surgical History History of colonoscopy (~04/2019) History of prostate surgery (~04/2019) History of open reduction and internal fixation (ORIF) procedure (~08/2018) Family History Family History Father Lung cancer BPH (benign prostatic hyperplasia) Mother Dementia Brother Myocardial infarction Other Mental health problem Substance abuse Social History Social History Household Members: Other Housing: Other Housing Other:: Longterm Do you presently have visiting nurse or other home services: No Alcohol intake: never Patient Tobacco Use Status: Current everyday Tobacco user Tobacco use type: Cigarette Cigarette Packs Per Day: 0.5 Cigarettes Per Day: 10.0 Years Smoked: 10 e-Cigarette/Vaping Use: Never Used Second Hand Smoke Exposure: Yes Advance Directives: No Advance Directives Information Provided: Yes service: No Current occupational status: employed and disabled 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 Oriented X3. No acute distress. Disheveled but cooperative and calm Eyes: Pupils equal, round and reactive to light. ENT: Pharynx normal. Neck: Normal inspection. Neck supple. CVS: Normal heart rate and rhythm. Pulses normal. Respiratory: No respiratory distress. Breath sounds normal. Abdomen: Soft and nontender. Skin: Skin warm and dry. Normal skin color. Normal skin turgor. Extremities: No lower extremity edema. No calf ttp Neuro: Oriented X 3. No motor deficit. No sensory deficit. Medical Decision Making Medical Decision Making MDM Narrative: 59 yo male with PMH of GERD, UTI with catheter, schizoaffective bipolar d/o, anxiety, BPH, HLD here with c/o again issues with mcc. I will involve CARE team but no SI/HI. He can go home at his request. We are asking for ride home via mcc. Differential Diagnosis Differential Diagnoses: The differential diagnosis associated with the presentation includes anxiety Admission/Observation Consideration of admission/observation: Escalation of care including admission/observation considered yamini speak to care team but chronic complaint and no SI/HI he can DC home as he is requesting Consult Healthcare Provider Management of the patient was discussed with: Behavioral Health Provider External Record Review External record reviewed: Outpatient record Discharge Plan Discharge Clinical Impression: Schizoaffective disorder, bipolar type Patient Disposition: Home, Self-Care Instructions: Schizoaffective Disorder (ED) Additional Instructions: You were seen in our Emergency Department today for treatment of a behavioral health issue. It is important after your visit that you follow up with either your behavioral health provider or a primary care doctor within 7 days.? If you have trouble finding a therapist you can reach out to [address] [phone] The National Suicide and Crisis Lifeline can be reached 7 days a week 24 hours a day.? Call 988 to speak with someone.? Return for any worsening symptoms or concerns such as thoughts of self harm or harm to others. Please call 911 if you feel your mental health is worsening.? Prescriptions: No Action quetiapine 100 mg tablet 100 mg PO BEDTIME lorazepam 1 mg tablet 1 mg PO DAILY PRN (Reason: Anxiety) aripiprazole 30 mg tablet 30 mg PO DAILY quetiapine 50 mg tablet 50 mg PO BID olanzapine 10 mg tablet 10 mg PO TID cefuroxime axetil 500 mg tablet 500 mg PO BID 7 Days Qty: 14 0RF tamsulosin 0.4 mg capsule 0.4 mg PO QAM 90 Days Qty: 90 0RF atorvastatin 20 mg tablet 20 mg PO QPM 90 Days Qty: 90 3RF Print Language: Bahraini
[2025-03-24 10:38] VITALS: BP 119/85; PULSE 92; RESP 18; TEMP 36.4; O2SAT 96; BMI 20.7
[2025-03-24 11:08] VITALS: BP 119/85; PULSE 92; RESP 18; TEMP 36.4; O2SAT 96
--- NOTE | 2025-03-24 11:53 | MHC.CARE ---
Patient was seen for psych consult after he presented in the [facility] ED reporting his program did not medicate him and this made him upset. Patient is well known to [facility] and behavioral health team as he frequently presents to [facility] ED frequently and often will then asked to be discharged abruptly. ?Patient denies any suicidal or homicidal ideation; he denies any audio or visual hallucinations and does not appear to be responding to any internal stimuli currently. He does not report any sleep or appetite disturbances and requests to get a ride back to his long-term. Clinician called long-term and informed them patient was in ED and would be discharging back to long-term.
== END 2025-03-24 11:08 | disposition home or self-care (01) ==
PROVIDERS: Emergency Provider Emergency Medicine; PCP Internal Medicine
DX: F25.9 Schizoaffective disorder, unspecified (principal); F31.9 Bipolar disorder, unspecified
CPT/HCPCS: 99282

== ENCOUNTER 2025-03-26 20:02 | Emergency (ER) | payer MEDICARE, MEDICAID, SELFPAY ==
[2025-03-26 20:12] VITALS: BP 113/70; PULSE 93; RESP 20; TEMP 36.2; O2SAT 96; BMI 21.1
--- NOTE | 2025-03-26 22:58 | MHC.EDTECH ---
@[id number] Called pt to be brought into the main ED, no answer
--- OUTSIDE RECORDS SUMMARY | 2025-03-26 23:39 | XMS_ITS | Clinical Summary ---
Author Organization [facility] Address [address] [place] [address] Phone Care Team Providers Care Welcome Wagon Host/Hostess Name Role Phone Dk Rodriguez MD Primary Care Provider [phone] Allergies No known active allergies Medications No known medications Encounters Date Type Department Care Team Description 03/06/2025 9:24 PM EDT - 03/06/2025 9:57 PM EDT [facility] Emergency [address] [place] [phone] Discharge Disposition: Home or Self Care 02/15/2025 9:21 PM EDT - 02/15/2025 9:45 PM EDT [facility] Emergency [address] [place] [phone] Encounter for Santos catheter removal (Primary Dx) Discharge Disposition: Home or Self Care 02/14/2025 8:31 PM EDT - 02/14/2025 9:27 PM EDT [facility] Emergency [address] [place] [phone] Urinary retention (Primary Dx) Discharge Disposition: Home or Self Care 02/10/2025 9:24 PM EDT - 02/10/2025 11:43 PM EDT [facility] Emergency [address] [place] [phone] Discharge Disposition: Home or Self Care 02/01/2025 8:58 PM EDT - 02/01/2025 10:49 PM EDT [facility] Emergency [address] [place] [phone] Discharge Disposition: Home or Self Care 01/30/2025 8:57 PM EDT - 01/31/2025 12:33 AM EDT [facility] Emergency [address] [place] [phone] Discharge Disposition: Home or Self Care 01/28/2025 9:14 PM EDT - 01/28/2025 11:28 PM EDT Emergency [facility] Emergency [address] [place] [phone] Discharge Disposition: Home or Self Care 01/14/2025 8:53 PM EDT - 01/15/2025 12:26 AM EDT [facility] Emergency [address] [place] [phone] Discharge Disposition: Home or Self Care 01/12/2025 8:45 PM EDT - 01/12/2025 11:57 PM EDT Emergency [facility] Emergency [address] [place] [phone] Dilcia Carl MD Discharge Disposition: Left Against [...] Depression Screening 06/05/2024 COVID-19 Vaccine (5 - 2024- season) 2025 03/17/2023, 03/31/2021, 07/23/2020, Additional history [...] patient's age to complete this topic Insurance MEDICARE MEDICAID - [place] Care Teams Welcome Wagon Host/Hostess Relationship Specialty Start Date End Date Dk Rodriguez MD [address] [place] [address] [address] [place] PCP - General Internal Medicine 07/16/24
--- OUTSIDE RECORDS SUMMARY | 2025-03-26 23:39 | XMS_ITS | Clinical Summary ---
Author Organization [facility] Address [address] [place] [address] Care Team Providers Care Dietetic Aide Name Role Phone Ref, Has No Pcp [...] Plan (01/03/2024 2:32 PM EDT): Presents from [facility] in the setting of urinary [...] Plan (01/03/2024 10:49 AM EDT): Presented from [facility] with hyponatremia (initially 123). Also [...] Plan (01/02/2024 11:43 AM EDT): Presents from [facility] in the setting of urinary [...] Seroquel 25 mg twice daily Presents from [facility]'s forensic unit with documented history of schizophrenia. Continue home aripiprazole 20mg daily Continue home carbamazepine 500 mg twice daily Continue home Zyprexa 15 mg nightly Continue home Seroquel 25 mg twice daily Consider psychiatry consult if concern that antipsychotic medications are causing SIADH Patient presents from [facility], requires constant observation Assessment & Plan (01/02/2024 11:43 AM EDT): Home medications: aripiprazole 20 mg daily, carbamazepine 500 mg twice daily, Zyprexa 15 mg nightly, Seroquel 25 mg twice daily Presents from [facility]'s forensic unit with documented history of schizophrenia. Continue home aripiprazole 20mg daily Continue home carbamazepine 500 mg twice daily Continue home Zyprexa 15 mg nightly Continue home Seroquel 25 mg twice daily Consider psychiatry consult if concern that antipsychotic medications are causing SIADH Patient presents from [facility], requires constant observation BPH (benign prostatic hyperplasia) 12/30/2023 Assessment & Plan (01/03/2024 2:33 PM EDT): Paperwork from the [facility] center indicates history of BPH with prior need for intermittent catheterization requiring urology evaluation in the past, records not available in our system). Per documentation from [facility] patient has seen urology at [facility] in [place]. He was started on Flomax outpatient. In [...] 11:43 AM EDT): Paperwork from the [facility] indicates history of BPH with prior need for intermittent catheterization requiring urology evaluation in the past, records not available in our system). Per documentation from [facility] patient has seen urology at [facility] in [place]. He was started on Flomax outpatient. In [...] series) 2040 Tobacco Screening 06/05/2042 01/29/[address] [facility] MEDICARE [facility] Advance Directives * Full Code (Latest Code Status on File) Date Activated Date Inactivated Comments 12/30/2023 7:22 PM 01/03/2024 8:48 PM * Presumed Full Code Date Activated Date Inactivated Comments 12/30/2023 7:00 PM 12/30/2023 7:22 PM Care Teams Dietetic Aide Relationship Specialty Start Date End Date Ref, Has No Pcp Or DO NOT EDIT THIS RECORD VIA PROVIDER ON THE FLY PCP - General Asbestos Cement Sheet Supervisor 12/30/23
--- OUTSIDE RECORDS SUMMARY | 2025-03-26 23:39 | XMS_ITS | Encounter Summary ---
Author Organization [facility] Address [address] [place] [address] Care Team Providers Care Sound Engineer Audio Control Name Role Phone Ref, Has No Pcp Or Primary Care Provider Unavail able Encounter Details Date Type Department Care Team (Late st Contact Info) Description 01/04/2024 Community Orders [facility] EpicCare Link [address] [place] [address] Bethany Lozano, MACHINIST/MACHINE BUILDER [address] [place] [address] Social History Tobacco Use Types Packs/Day Years [...] on filedocumented in this encounter Care Teams Sound Engineer Audio Control Relationship Specialty Start Date End Date Ref, Has No Pcp Or DO NOT EDIT THIS RECORD VIA PROVIDER ON THE FLY PCP - General Iron Molder Helper 12/30/23 documented as of this encounter
== END 2025-03-26 23:40 | disposition left against medical advice (07) ==
PROVIDERS: Emergency Provider Emergency Medicine; PCP Internal Medicine
DX: R68.89 Other general symptoms and signs (principal); Z53.21 Procedure and treatment not carried out due to patient leaving prior to being seen by health care provider
CPT/HCPCS: 99281

== ENCOUNTER 2025-03-29 18:07 | Emergency (ER) | payer MEDICARE, MEDICAID, SELFPAY ==
[2025-03-29 18:20] VITALS: BP 113/68; PULSE 91; RESP 18; TEMP 36.8; O2SAT 97; BMI 21.1
--- NOTE | 2025-03-29 18:21 | ED_ITS ---
HPI - General Adult General Chief complaint: Behavioral Concerns Stated complaint: not feeling good had to get out of the house Related Data Home Medications ?Medication ?Instructions ?Recorded ?Confirmed aripiprazole 30 mg tablet 30 mg PO DAILY 01/31/2502/04 lorazepam 1 mg tablet 1 mg PO DAILY PRN Anxiety 02/25/25 quetiapine 100 mg tablet 100 mg PO BEDTIME 01/31/25 0 02/25/25 quetiapine 50 mg tablet 50 mg PO BID 01/31/25 olanzapine 10 mg tablet 10 mg PO TID 02/03/25 Previous Rx's ?Medication ?Instructions ?Recorded atorvastatin 20 mg tablet 20 mg PO QPM 90 days #90 tab s 01/10/25 tamsulosin 0.4 mg capsule 0.4 mg PO QAM 90 days #90 ca ps 01/10/25 cefuroxime axetil 500 mg tablet 500 mg PO BID 7 days # 14 tabs 03/10/25 Allergies Allergy/AdvReac Type Severity Reaction Status Date / Time No Known Allergies (NO KNOWN Allergy Unknown UNKNOWN Verified 03/29/25 18:21 ALLERGIES) [facility] Past Medical History Medical History Acute anxiety Smoker GERD without esophagitis Tubular adenoma of colon (~2018) Personal history of nicotine dependence Constipation Back pain Schizoaffective disorder, bipolar type Anxiety Benign prostatic hyperplasia with lower urinary tract symptoms Pure hypercholesterolemia Thought disorder Bipolar 1 disorder Mood disorder Surgical History History of colonoscopy (~04/2019) History of prostate surgery (~04/2019) History of open reduction and internal fixation (ORIF) procedure (~08/2018) Family History Family History Father Lung cancer BPH (benign prostatic hyperplasia) Mother Dementia Brother Myocardial infarction Other Mental health problem Substance abuse Social History Social History Household Members: Other Housing: Other Housing Other:: Penitentiary Do you presently have visiting nurse or other home services: No Alcohol intake: never Patient Tobacco Use Status: Current everyday Tobacco user Tobacco use type: Cigarette Cigarette Packs Per Day: 0.5 Cigarettes Per Day: 10.0 Years Smoked: 10 e-Cigarette/Vaping Use: Never Used Second Hand Smoke Exposure: Yes Advance Directives: No Advance Directives Information Provided: No Do you have a plan to hurt others: No Plan service: No Current occupational status: employed and disabled Current occupation: [employer] Sexual orientation: Straight/Heterosexual Cognitive needs: No Hearing needs: No Vision needs: Yes Physical Exam ED Vital Signs: BMI result Body Mass Index 21.1 Course Course Course Narrative: This is a Rapid Medical Exam performed in triage by Adrienne Blue PA-C. Full HPI, ROS and PE to be performed by primary ED provider. 59-year-old male with a past medical history GERD, UTI with catheter, schizoaffective bipolar disorder, anxiety, BPH, HLD, presenting to the ED c/o n ot feeling right. States he is upset with his snf and had to leave. Admits he has been on Depakote newly for a few days and feels it is not sitting right with him. Denies SI/HI. PE: Ambulating with steady gait. Nontoxic. Plan: CARE team consult Discharge Plan Discharge Clinical Impression: Behavior concern Patient Disposition: Left W/O Completing Treatment Prescriptions: No Action quetiapine 100 mg tablet 100 mg PO BEDTIME lorazepam 1 mg tablet 1 mg PO DAILY PRN (Reason: Anxiety) aripiprazole 30 mg tablet 30 mg PO DAILY quetiapine 50 mg tablet 50 mg PO BID olanzapine 10 mg tablet 10 mg PO TID cefuroxime axetil 500 mg tablet 500 mg PO BID 7 Days Qty: 14 0RF tamsulosin 0.4 mg capsule 0.4 mg PO QAM 90 Days Qty: 90 0RF atorvastatin 20 mg tablet 20 mg PO QPM 90 Days Qty: 90 3RF Discharge Date/Time: 03/29/25 18:40
== END 2025-03-29 18:40 | disposition left against medical advice (07) ==
PROVIDERS: Emergency Provider Emergency Medicine; PCP Internal Medicine
DX: R45.89 Other symptoms and signs involving emotional state (principal)
CPT/HCPCS: 99281

== ENCOUNTER 2025-04-01 21:21 | Emergency (ER) | payer MEDICARE, MEDICAID, SELFPAY ==
--- OUTSIDE RECORDS SUMMARY | 2025-03-30 21:37 | XMS_ITS | Encounter Summary ---
Author Organization [facility] Address [address] [place] [address] Care Team Providers Care Traffic Enumerator Name Role Phone Dk Rodriguez MD Primary Care Provider + [phone] Reason for Visit * Reason Comments Male Problem I don't feel good Pt states he's having difficult time urinating and moving his bowels. Encounter Details Date Type Department Care Team (Late st Contact Info) Description 03/30/2025 9:37 PM EDT - 03/30/2025 11:09 PM EDT Emergency [facility] Emergency [address] [place] [phone] Discharge Disposition: Left Against Medical Advice Social [...] on filedocumented in this encounter Care Teams Traffic Enumerator Relationship Specialty Start Date End Date Dk Rodriguez MD [address] [place] [address] Dr [address] COY Lucero PCP - General Internal Medicine 07/16/24 documented as of this encounter
[2025-04-01 21:23] VITALS: BP 00/00; PULSE 0; RESP 0; TEMP -17.7; TEMP 0; O2SAT 0; BMI 25.0
--- NOTE | 2025-04-01 21:26 | ED.GENADULT ---
HPI - General Adult General Chief complaint: General Medical Stated complaint: Issues at the GH Time Seen by Provider: 04/01/25 21:26 Source: patient Mode of arrival: ambulatory Limitations: no limitations History of Present Illness ED Provider: Dr. Ginger Mello HPI narrative: Patient comes to the emergency room stating that he has no where to go, states that his half-way is not a good place for him to be and therefore came to the emergency room. Patient initially complained of urination discomfort. However, patient states that he is mostly here because he has nowhere to go. Patient denies SI or HI Related Data Home Medications ?Medication ?Instructions ?Recorded ?Confirmed aripiprazole 30 mg tablet 30 mg PO DAILY 01/31/25 02/25/25 lorazepam 1 mg tablet 1 mg PO DAILY PRN Anxiety 01/31/25 02/25/25 quetiapine 100 mg tablet 100 mg PO BEDTIME 01/31/25 02/25/25 quetiapine 50 mg tablet 50 mg PO BID 01/31/25 02/25/25 olanzapine 10 mg tablet 10 mg PO TID 02/03/25 02/25/25 Previous Rx's ?Medication ?Instructions ?Recorded atorvastatin 20 mg tablet 20 mg PO QPM 90 days #90 tabs 01/10/25 tamsulosin 0.4 mg capsule 0.4 mg PO QAM 90 days #90 caps 01/10/25 cefuroxime axetil 500 mg tablet 500 mg PO BID 7 days #14 tabs 03/10/25 Allergies Allergy/AdvReac Type Severity Reaction Status Date / Time No Known Allergies (NO KNOWN Allergy Unknown UNKNOWN Verified 04/01/25 21:24 ALLERGIES) Review of Systems Review of Systems: Constitutional : No Weight loss, No Fever, No Chills, No Night Sweats, No Fatigue, No Malaise ENT/Mouth : No Hearing loss, No Ear Pain, No Nasal Congestion, No Sinus Pain, No Hoarseness, No sore throat, No Rhinorrhea, No Swallowing Difficulty Eyes: No Eye Pain, No Swelling, No Redness, No Foreign Body, No Discharge, No Vision Changes Cardiovascular : No Chest Pain, No SOB, No Dyspnea on Exertion, No Orthopnea, No Edema, No Palpitations Respiratory : No Cough, No Sputum, No Wheezing, No Smoke Exposure, No Dyspnea Gastrointestinal : No Nausea, No Vomiting, No Diarrhea, No Constipation, No abdominal Pain, No Hematochezia, No Melena Genitourinary : Complaining of vague urinary discomfort. No Dysuria, No Urinary Frequency, No Hematuria, No Urinary Incontinence, No Urgency, No Flank Pain, No Urinary Flow Changes, No Hesitancy Musculoskeletal : No joint pain, No Myalgias, No Joint Swelling Skin : No Skin Lesions, No rash Neuro : No Weakness, No Numbness, No Paresthesias, No Loss of Consciousness, No Dizziness, No Headache Psych : No Anxiety/Panic, No Depression, No SI/HI/AH/VH, No Social Issues, Heme/Lymph: No Bruising, No Bleeding,No Lymphadenopathy Endocrine : No Polyuria, No Polydipsia, No Temperature Intolerance [facility] Past Medical History Medical History Acute anxiety Smoker GERD without esophagitis Tubular adenoma of colon (~2018) Personal history of nicotine dependence Constipation Back pain Schizoaffective disorder, bipolar type Anxiety Benign prostatic hyperplasia with lower urinary tract symptoms Pure hypercholesterolemia Thought disorder Bipolar 1 disorder Mood disorder Surgical History History of colonoscopy (~04/2019) History of prostate surgery (~04/2019) History of open reduction and internal fixation (ORIF) procedure (~08/2018) Family History Family History Father Lung cancer BPH (benign prostatic hyperplasia) Mother Dementia Brother Myocardial infarction Other Mental health problem Substance abuse Social History Social History Household Members: Other Housing: Other Housing Other:: Custodial Do you presently have visiting nurse or other home services: No Alcohol intake: never Patient Tobacco Use Status: Current everyday Tobacco user Tobacco use type: Cigarette Cigarette Packs Per Day: 0.5 Cigarettes Per Day: 10.0 Years Smoked: 10 e-Cigarette/Vaping Use: Never Used Second Hand Smoke Exposure: Yes service: No Current occupational status: employed and disabled Current occupation: [employer] Sexual orientation: Straight/Heterosexual Cognitive needs: No Hearing needs: No Vision needs: Yes Physical Exam ED Exam Exam: Appearance: Alert. Oriented X3. No acute distress. Eyes: Pupils equal, round and reactive to light. ENT: Pharynx normal. Neck: Normal inspection. Neck supple. No lymph nodes noted. No crepitus CVS: Normal heart rate and rhythm. Pulses normal. Normal S1 and S2 Respiratory: No respiratory distress. Breath sounds normal. No Wheezing. No rales Abdomen: Soft and nontender. No rigidity. No distention. Skin: Skin warm and dry. Normal skin color. Normal skin turgor. Extremities: No lower extremity edema. No Lacerations. No Rash Neuro: Oriented X 3. No motor deficit. No sensory deficit. Moving all extremities. No slurred speech. CN 2 through 12 grossly intact Psych: calm, cooperative, normal affect Vital Signs: Vital Signs - 24 hr 04/01/25 21:23 Temperature 0 F L Pulse Rate 0 L Respiratory Rate 0 L Blood Pressure 00/00 L Pulse Oximetry 0 L Oxygen Delivery Method Room Air BMI result Body Mass Index 25.0 Medical Decision Making Medical Decision Making MDM Narrative: Patient is well-known to the emergency room, patient initially complaining of urinary discomfort. However, patient refused to address the situation. Patient states that he is here because he does not like his half-way. Patient refused any further assistance. Patient declined any further medical assistance. Patient stated I'll just woke home now Patient did not want to wait to be registered Discharge Plan Discharge Clinical Impression: Anxiety Patient Disposition: Home, Self-Care Instructions: Anxiety (ED) Additional Instructions: You were seen in the Emergency Department today. ?We understand that you have long standing concerns with your half-way. 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 You can always call [facility] Crisis [phone]. Please follow up with your outpatient providers. Please utilize your resources in the community for your longstanding issues and utilize the emergency department for emergent medical and psychiatric needs. Prescriptions: No Action quetiapine 100 mg tablet 100 mg PO BEDTIME lorazepam 1 mg tablet 1 mg PO DAILY PRN (Reason: Anxiety) aripiprazole 30 mg tablet 30 mg PO DAILY quetiapine 50 mg tablet 50 mg PO BID olanzapine 10 mg tablet 10 mg PO TID cefuroxime axetil 500 mg tablet 500 mg PO BID 7 Days Qty: 14 0RF tamsulosin 0.4 mg capsule 0.4 mg PO QAM 90 Days Qty: 90 0RF atorvastatin 20 mg tablet 20 mg PO QPM 90 Days Qty: 90 3RF Print Language: Armenian
--- OUTSIDE RECORDS SUMMARY | 2025-04-01 21:37 | XMS_ITS | Clinical Summary ---
Author Organization [facility] Address [address] [place] [address] Phone Care Team Providers Care Warp Bleaching Vat Tender Name Role Phone Dk Rodriguez MD Primary Care Provider [phone] Allergies No known active allergies Medications No known medications Encounters Date Type Department Care Team Description 03/30/2025 9:37 PM EDT - 03/30/2025 11:09 PM EDT [facility] Emergency [address] [place] [phone] Discharge Disposition: Left Against Medical Advice 03/06/2025 9:24 PM EDT - 03/06/2025 9:57 PM EDT [facility] Emergency [address] [place] [phone] Discharge Disposition: Home or Self Care 02/15/2025 9:21 PM EDT - 02/15/2025 9:45 PM EDT [facility] Emergency [address] [place] [phone] Encounter for Santos catheter removal (Primary Dx) Discharge Disposition: Home or Self Care 02/14/2025 8:31 PM EDT - 02/14/2025 9:27 PM EDT [facility] Emergency [address] [place] [phone] Urinary retention (Primary Dx) Discharge Disposition: Home or Self Care 02/10/2025 9:24 PM EDT - 02/10/2025 11:43 PM EDT [facility] Emergency [address] [place] [phone] Discharge Disposition: Home or Self Care 02/01/2025 8:58 PM EDT - 02/01/2025 10:49 PM EDT [facility] Emergency [address] [place] [phone] Discharge Disposition: Home or Self Care 01/30/2025 8:57 PM EDT - 01/31/2025 12:[address] [facility] Emergency [address] [place] [phone] Discharge Disposition: Home or Self Care 01/28/2025 9:14 PM EDT - 01/28/2025 11:28 PM EDT [facility] Emergency [address] [place] [phone] Discharge Disposition: Home or Self Care 01/14/2025 8:53 PM EDT - 01/15/2025 12:26 AM EDT [facility] Emergency [address] [place] [phone] Discharge Disposition: Home or Self Care 01/12/2025 8:45 PM EDT - 01/12/2025 11:57 PM EDT [facility] Emergency [address] [place] [phone] Dilcia Carl MD Discharge Disposition: Left Against Medical Advice from Last 3 Months Medical History Medical History Date Comments Bipolar 1 disorder ([facility] V24, [facility] V28) Mood disorder ([facility] V24) Hyperactivity of bladder Social [...] Mass Index 21.41 03/30/2025 9:43 PM EDT Plan of Treatment Health Maintenance [...] Insurance MEDICARE MEDICAID - [place] Care Teams Warp Bleaching Vat Tender Relationship Specialty Start Date End Date Dk Rodriguez MD [address] [place] [address] [address] [place] MD PCP - General Internal Medicine 07/16/24
--- OUTSIDE RECORDS SUMMARY | 2025-04-01 21:37 | XMS_ITS | Clinical Summary ---
Author Organization [facility] Address [address] [place] [address] Care Team Providers Care Medical Device Name Role Phone Ref, Has No Pcp [...] Plan (01/03/2024 2:32 PM EDT): Presents from [facility] in the setting of urinary retention [...] Plan (01/03/2024 10:49 AM EDT): Presented from [facility] with hyponatremia (initially 123). Also [...] Plan (01/02/2024 11:43 AM EDT): Presents from [facility] in the setting of urinary retention [...] Seroquel 25 mg twice daily Presents from [facility]'s forensic unit with documented history of schizophrenia. 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 Per documentation from [facility] patient has seen urology at [facility] in [place]. He was started on Flomax outpatient. In [...] AM EDT): Paperwork from the [facility] indicates history of BPH with prior need for intermittent catheterization requiring urology evaluation in the past, records not available in our system). Per documentation from [facility] patient has seen urology at [facility] in [place]. He was started on Flomax outpatient. In [...] series) 2040 Tobacco Screening 06/05/2042 01/29/2024 Insurance * Guarantor: Balbir Lyon Account Type Relation to Patient Date of Phone Billing Address Personal/Family Self 1965 [address] [place] [address] [facility] MEDICARE [facility] Advance Directives * Full Code (Latest Code Status on File) Date Activated Date Inactivated Comments 12/30/2023 7:22 PM 01/03/2024 8:48 PM * Presumed Full Code Date Activated Date Inactivated Comments 12/30/2023 7:00 PM 12/30/2023 7:22 PM Care Teams Medical Device Relationship Specialty Start Date End Date Ref, Has No Pcp Or DO NOT EDIT THIS RECORD VIA PROVIDER ON THE FLY PCP - General [place] Farmer 12/30/23
--- OUTSIDE RECORDS SUMMARY | 2025-04-01 21:37 | XMS_ITS | Encounter Summary ---
Author Organization [facility] Address [address] [place] [address] Care Team Providers Care Manager Research Development Name Role Phone Ref, Has No Pcp Or Primary Care Provider Unavail able Encounter Details Date Type Department Care Team (Late st Contact Info) Description 01/04/2024 Community Orders [facility] EpicCare Link [address] [place] [address] Bethany Lozano, LAW FIRM RECEPTIONIST [address] [place] [address] Social History Tobacco Use Types Packs/Day Years [...] filedocumented in this encounter Care Teams Manager Research Development Relationship Specialty Start Date End Date Ref, Has No Pcp Or DO NOT EDIT THIS RECORD VIA PROVIDER ON THE FLY PCP - General Stone Cleaner 12/30/23 documented as of this encounter
== END 2025-04-01 22:14 | disposition home or self-care (01) ==
PROVIDERS: Emergency Provider Emergency Medicine; PCP Internal Medicine
DX: F41.9 Anxiety disorder, unspecified (principal)
CPT/HCPCS: 99281

== ENCOUNTER 2025-04-04 12:45 | Emergency (ER) | payer MEDICARE, MEDICAID, SELFPAY ==
--- OUTSIDE RECORDS SUMMARY | 2025-03-30 21:37 | XMS_ITS | Encounter Summary ---
Author Organization [facility] Address [address] [place] [address] Care Team Providers Care Load Manager Name Role Phone Dk Rodriguez MD Primary Care Provider + [phone] Reason for Visit * Reason Comments Male Problem I don't feel good Pt states he's having difficult time urinating and moving his bowels. Encounter Details Date Type Department Care Team (Late st Contact Info) Description 03/30/2025 9:37 PM EDT - 03/30/2025 11:09 PM EDT Emergency [facility] Emergency [address] [place] [phone] Discharge Disposition: Left Against Medical Advice Social [...] Sign Reading Time Taken Comments Blood Pressure 105/82 03/30/2025 9:43 PM EDT Pulse 82 03/30/2025 9:43 PM EDT Temperature 36.6 C (97.8 F) 03/30/2025 9:43 PM EDT Respiratory Rate 18 03/30/2025 9:43 PM EDT Oxygen Saturation 98% 03/30/2025 9:43 PM EDT Inhaled Oxygen Concentration - - Weight 65.8 kg (145 lb) 03/30/2025 9:43 PM EDT Height 175.3 cm (5' 9 ) 03/30/2025 9:43 PM EDT Body Mass Index 21.41 03/30/2025 9:43 PM EDT documented in this encounter Functional [...] No 11/24/2024 1:09 AM EDTaye Pena RN documented as of this encounter Mental [...] documented in this encounter Progress Notes * Trudy Raygoza RN - 03/30/2025 9:42 PM EDT I don't feel good Pt states he's having difficult time urinating and moving his bowels. Starting depakote 4 days ago and I am not feeling good. documented in this encounter Plan of Treatment Not on file documented as of this encounter Visit Diagnoses Not on filedocumented in this encounter Care Teams Load Manager Relationship Specialty Start Date End Date Dk Rodriguez MD [address] [place] [address] [address] COY Lucero PCP - General Internal Medicine 07/16/24 documented as of this encounter
[2025-04-04 12:48] VITALS: BP 107/55; PULSE 80; RESP 18; TEMP 36.6; O2SAT 96; BMI 21.4
--- NOTE | 2025-04-04 12:51 | ED_ITS ---
HPI - General Adult General Chief complaint: General Medical Stated complaint: Not Feeling Well Time Seen by Provider: 04/04/25 13:55 Source: patient Mode of arrival: ambulatory Limitations: no limitations History of Present Illness ED Provider: Fozia Jordan PA-C HPI narrative: Patient is a 59 year old assigned male at with a history of BPH, chronic suprapubic pain, GERD, HLD, and schizoaffective disorder presenting to the emergency department today wanting to discuss his assisted living conditions. Patient states that his assisted is too loud and he doesn't want to only stay in his room. Patient denies any other complaints at this time. Patient denies any thoughts of hurting himself or others. Related Data Home Medications ?Medication ?Instructions ?Recorded ?Confirmed aripiprazole 30 mg tablet 30 mg PO DAILY 01/31/2502/04 lorazepam 1 mg tablet 1 mg PO DAILY PRN Anxiety 02/25/25 quetiapine 100 mg tablet 100 mg PO BEDTIME 01/31/25 0 02/25/25 quetiapine 50 mg tablet 50 mg PO BID 01/31/25 olanzapine 10 mg tablet 10 mg PO TID 02/03/25 Previous Rx's ?Medication ?Instructions ?Recorded atorvastatin 20 mg tablet 20 mg PO QPM 90 days #90 tab s 01/10/25 tamsulosin 0.4 mg capsule 0.4 mg PO QAM 90 days #90 ca ps 01/10/25 cefuroxime axetil 500 mg tablet 500 mg PO BID 7 days # 14 tabs 03/10/25 Allergies Allergy/AdvReac Type Severity Reaction Status Date / Time No Known Allergies (NO KNOWN Allergy Unknown UNKNOWN Verified 04/04/25 12:52 ALLERGIES) Review of Systems Constitutional: Constitutional: Reports as per HPI Eyes: Eyes: Reports as per HPI ENT: Reports as per HPI Cardiovascular: Cardiovascular: Reports as per HPI Respiratory: Respiratory: Reports as per HPI Gastrointestinal: Gastrointestinal: Reports as per HPI Genitourinary: Genitourinary: Reports as per HPI Musculoskeletal: Musculoskeletal: Reports as per HPI Integumentary/Breasts: Skin/Breast: Reports as per HPI Neurologic: Reports as per HPI Psychiatric: Psychiatric: Reports as per HPI Endocrine: Endocrine: Reports as per HPI Hematologic/Lymphatic: Hematologic/Lymphatic: Reports as per HPI Allergic/Immunologic: Allergic/Immunologic: Reports as per HPI [facility] Past Medical History Attestation statement: The following information was validated with the patient. Source: old records reviewed and nursing notes reviewed Medical History Acute anxiety Smoker GERD without esophagitis Tubular adenoma of colon (~2018) Personal history of nicotine dependence Constipation Back pain Schizoaffective disorder, bipolar type Anxiety Benign prostatic hyperplasia with lower urinary tract symptoms Pure hypercholesterolemia Thought disorder Bipolar 1 disorder Mood disorder Surgical History History of colonoscopy (~04/2019) History of prostate surgery (~04/2019) History of open reduction and internal fixation (ORIF) procedure (~08/2018) Family History Family History Father Lung cancer BPH (benign prostatic hyperplasia) Mother Dementia Brother Myocardial infarction Other Mental health problem Substance abuse Social History Social History Household Members: Other Housing: Other Housing Other:: Alf Do you presently have visiting nurse or other home services: No Alcohol intake: never Patient Tobacco Use Status: Current everyday Tobacco user Tobacco use type: Cigarette Cigarette Packs Per Day: 0.5 Cigarettes Per Day: 10.0 Years Smoked: 10 e-Cigarette/Vaping Use: Never Used Second Hand Smoke Exposure: Yes Advance Directives: No Advance Directives Information Provided: No Do you have a plan to hurt others: No Plan service: No Current occupational status: employed and disabled Current occupation: [employer] Sexual orientation: Straight/Heterosexual Cognitive needs: No Hearing needs: No Vision needs: Yes Physical Exam ED Vital Signs: Vital Signs - 24 hr 04/04/25 12:48 04/04/25 15:40 Temperature 97.9 F 97.9 F Pulse Rate 80 80 Respiratory Rate 18 18 Blood Pressure 107/55 L 107/55 L Pulse Oximetry 96 96 Oxygen Delivery Method Room Air Room Air BMI result Body Mass Index 21.4 Const General: cooperative, no acute distress, alert and awake Nutritional Appearance: well nourished Orientation/consciousness: patient oriented x3 HENMT Head: Yes normal to inspection and Yes atraumatic Ears: hearing grossly normal bilaterally and external ears normal General nose exam: Normal external nose present, no nasal discharge noted and no epistaxis Face and sinus: Yes normal facial exam, No abrasion and No laceration Mouth: Normal oral and palatal mucosa present, no drooling and no muffled voice Eyes General: appearance normal, both eyes and all related structures Periorbital: periorbital findings normal Eyelids: Yes eyelids normal Conjunctivae: conjunctivae normal Pupils: Equal, round and reactive pupils present EOM: EOMs intact bilaterally Neck Neck: Yes normal visual inspection and Yes full ROM Resp Effort & Inspection: normal respiratory effort and able to speak in complete sentences Neuro General: patient oriented x3, moves all extremities and CN's II-XI intact bilaterally Cranial nerves: Yes Equal, round and reactive pupils present Cognition (Neuro): normal cognition Extrem General: Yes normal to inspection, Yes full ROM and Yes capillary refill normal Psych Appearance: grossly normal Mental Status: mental status grossly normal Affect: normal affect Course Course Course Narrative: This is a Rapid Medical Examination (RME) performed by Addy Regalado PA-C in triage. Full HPI, ROS, assessment and treatment plan per primary provider in the Main ED. Hx: 59 yo M here for eval of I can't handle my assisted psychiatrically . reports walking here from the assisted. denies SI/HI. also reports decreased urination. states he only voids small amounts, does not urinate all night. he does not currently have a catheter in. Plan: labs, UA, bladder scan Medical Decision Making Medical Decision Making MDM Narrative: Patient is a 59 year old assigned male at with a history of BPH, chronic suprapubic pain, GERD, HLD, and schizoaffective disorder presenting to the emergency department today wanting to discuss his assisted living conditions and for his bladder to be scanned. Patient's physical exam was unremarkable. Patient's bladder scan showed very mild retention which is common for the patient and at this time he does not need to be catheterized. Patient met with the CARE team who confirmed the patient felt safe to return to the assisted. I explained my physical exam findings as well as all test results to the patient. I answered all questions asked by the patient. I stressed the importance of the patient taking his medication as directed (either prescribed or as the over the counter packaging recommends). I stressed the importance of the patient following up with his primary care provider. I stressed the importance of the patient returning to the emergency department immediately if he were to develop any dizziness, shortness of breath, difficulty breathing, chest pain, blurry vision, loss of vision, nausea, vomiting, abdominal pain, fever, chills, back pain, or any other complaints. Differential Diagnosis Differential Diagnoses: The differential diagnosis associated with the presen tation includes Anxiety Acute on chronic urinary retention Admission/Observation Consideration of admission/observation: Escalation of care including admission/observation considered Patient would have been admitted to the hospital had his clinical presentation warranted hospital admission. Discharge Plan Discharge Clinical Impression: Anxiety, Acute on chronic urinary retention Patient Disposition: Home, Self-Care Instructions: Urinary Retention in Men (ED), Anxiety (ED) Additional Instructions: We understand that you have long standing concerns with your assisted. We advise when you are struggling with these events and feelings that you reach out to your therapist, your counselors, and your [facility] worker. You can always call [facility] Crisis at [phone]. Please follow up with your outpatient providers. Please utilize your resources in the community for your longstanding issues and utilize the emergency department for emergent medical and psychiatric needs. Your bladder scan is consistent with your baseline. Please continue to follow up with your outpatient providers about this. IF you are prescribed home medications and/or you are taking over the counter medications at home - it is very important you continue to do so as prescribed / directed unless told otherwise. Follow up with your primary care provider. Return to the emergency department immediately if your symptoms worsen or if you develop any numbness, tingling, dizziness, shortness of breath, difficulty breathing, chest pain, blurry vision, loss of vision, nausea, vomiting, abdominal pain, fever, chills, back pain, or any other complaints. Please see the information below about our Patient Portal. If you are not yet enrolled in the [facility] Patient Portal, you will receive an enrollment email invitation following your visit to any [facility] care setting. You may also self-enroll in the Patient Portal by visiting our website: [email or web address] The following information is required to access the Patient Portal: - Your [facility] Medical Record Number - Your personal home email address (must match what is in your electronic medical record, Registration staff can assist with this) - Name - Date of Capabilities of the Patient Portal: - Message some providers - View upcoming appointments - Access your health summary, medical history, and visit history - View current conditions and allergies - View procedure and lab results - View your medications, including guidelines, side effects, and precautions - Complete pre-appointment questionnaires requested by your provider - Ready summary reports of your office visits and procedures To access the Patient Portal Mobile [employer], follow these directions: - Search [email or web address] in the [employer] Store or [employer] Store - Download the [employer] - Search for - Enter your login/password Prescriptions: No Action quetiapine 100 mg tablet 100 mg PO BEDTIME lorazepam 1 mg tablet 1 mg PO DAILY PRN (Reason: Anxiety) aripiprazole 30 mg tablet 30 mg PO DAILY quetiapine 50 mg tablet 50 mg PO BID olanzapine 10 mg tablet 10 mg PO TID cefuroxime axetil 500 mg tablet 500 mg PO BID 7 Days Qty: 14 0RF tamsulosin 0.4 mg capsule 0.4 mg PO QAM 90 Days Qty: 90 0RF atorvastatin 20 mg tablet 20 mg PO QPM 90 Days Qty: 90 3RF Interventions: ED Discharge Assessment Last Done: 04/04/25 15:40 Discharge Date/Time: 04/04/25 15:41 Print Language: Guatemalan
--- OUTSIDE RECORDS SUMMARY | 2025-04-04 14:14 | XMS_ITS | Clinical Summary ---
Author Organization [facility] Address [address] [place] [address] Phone Care Team Providers Care Frit Maker Name Role Phone Dk Rodriguez MD Primary Care Provider [phone] Allergies No known active allergies Medications No known medications Encounters Date Type Department Care Team Description 03/30/2025 9:37 PM EDT - 03/30/2025 11:09 PM EDT [facility] [address] [place] [phone] Discharge Disposition: Left Against Medical Advice 03/06/2025 9:24 PM EDT - 03/06/2025 9:57 PM EDT [facility] [address] [place] [phone] Discharge Disposition: Home or Self Care 02/15/2025 9:21 PM EDT - 02/15/2025 9:45 PM EDT [facility] [address] [place] [phone] Encounter for Santos catheter removal (Primary Dx) Discharge Disposition: Home or Self Care 02/14/2025 8:31 PM EDT - 02/14/2025 9:27 PM EDT [facility] [address] [place] [phone] Urinary retention (Primary Dx) Discharge Disposition: Home or Self Care 02/10/2025 9:24 PM EDT - 02/10/2025 11:43 PM EDT [facility] [address] [place] [phone] Discharge Disposition: Home or Self Care 02/01/2025 8:58 PM EDT - 02/01/2025 10:49 PM EDT [facility] [address] [place] [phone] Discharge Disposition: Home or Self Care 01/30/2025 8:57 PM EDT - 01/31/2025 12:33 AM EDT Emergency [facility] [address] [place] [phone] Discharge Disposition: Home or Self Care 01/28/2025 9:14 PM EDT - 01/28/2025 11:28 PM EDT [facility] [address] [place] [phone] Discharge Disposition: Home or Self Care 01/14/2025 8:53 PM EDT - 01/15/2025 12:26 AM EDT [facility] [address] [place] [phone] Discharge Disposition: Home or Self Care 01/12/2025 8:45 PM EDT - 01/12/2025 11:57 PM EDT [facility] [address] [place] [phone] Dilcia Carl MD Discharge Disposition: Left Against Medical Advice from Last 3 Months Medical History Medical History Date Comments Bipolar 1 disorder ([facility] V24, [facility] V28) Mood disorder ([facility] V24) Hyperactivity of bladder Social [...] Insurance MEDICARE MEDICAID - [place] Care Teams Frit Maker Relationship Specialty Start Date End Date Dk Rodriguez MD [address] [place] [address] [address] [place] PCP - General Internal Medicine 07/16/24
--- OUTSIDE RECORDS SUMMARY | 2025-04-04 14:14 | XMS_ITS | Clinical Summary ---
Author Organization [facility] Address [address] [place] [address] Care Team Providers Care Customer Service Supervisor Name Role Phone Ref, Has No [...] (01/03/2024 2:32 PM EDT): Presents from [facility] in the setting of urinary retention and [...] Plan (01/03/2024 10:49 AM EDT): Presented from [facility] with hyponatremia (initially 123). Also had [...] (01/02/2024 11:43 AM EDT): Presents from [facility] in the setting of urinary retention and [...] Seroquel 25 mg twice daily Presents from [facility]'s forensic unit with documented history of schizophrenia. Continue home aripiprazole 20mg daily Continue home carbamazepine 500 mg twice daily Continue home Zyprexa 15 mg nightly Continue home Seroquel 25 mg twice daily Consider psychiatry consult if concern that antipsychotic medications are causing SIADH Patient presents from [facility], requires constant observation Assessment & Plan (01/02/2024 11:43 AM EDT): Home medications: aripiprazole 20 mg daily, carbamazepine 500 mg twice daily, Zyprexa 15 mg nightly, Seroquel 25 mg twice daily Presents from [facility]'s forensic unit with documented history of schizophrenia. Continue home aripiprazole 20mg daily Continue home carbamazepine 500 mg twice daily Continue home Zyprexa 15 mg nightly Continue home Seroquel 25 mg twice daily Consider psychiatry consult if concern that antipsychotic medications are causing SIADH Patient presents from [facility], requires constant observation BPH (benign prostatic hyperplasia) 12/30/2023 Assessment & Plan (01/03/2024 2:33 PM EDT): Paperwork from the [facility] indicates history of BPH with prior need for intermittent catheterization requiring urology evaluation in the past, records not available in our system). Per documentation from [facility] patient has seen urology at [facility] in [place]. He was started on Flomax outpatient. In [...] AM EDT): Paperwork from the [facility] indicates history of BPH with prior need for intermittent catheterization requiring urology evaluation in the past, records not available in our system). Per documentation from [facility] patient has seen urology at [facility] in [place]. He was started on Flomax outpatient. In [...] series) 2040 Tobacco Screening 06/05/2042 01/29/2024 Insurance [facility] Advance Directives * Full Code (Latest Code Status on File) Date Activated Date Inactivated Comments 12/30/2023 7:22 PM 01/03/2024 8:48 PM * Presumed Full Code Date Activated Date Inactivated Comments 12/30/2023 7:00 PM 12/30/2023 7:22 PM Care Teams Customer Service Supervisor Relationship Specialty Start Date End Date Ref, Has No Pcp Or DO NOT EDIT THIS RECORD VIA PROVIDER ON THE FLY PCP - General Hammerer Tab 12/30/23
--- OUTSIDE RECORDS SUMMARY | 2025-04-04 14:14 | XMS_ITS | Encounter Summary ---
Author Organization [facility] Address [address] [place] [address] Care Team Providers Care Art Display Maker Name Role Phone Ref, Has No Pcp Or Primary Care Provider Unavail able Encounter Details Date Type Department Care Team (Late st Contact Info) Description 01/04/2024 Community Orders [facility] EpicCare Link [address] [place] [address] Bethany Lozano, PAY STATION ATTENDANT [address] [place] [address] Social History Tobacco Use Types Packs/Day Years [...] on filedocumented in this encounter Care Teams Art Display Maker Relationship Specialty Start Date End Date Ref, Has No Pcp Or DO NOT EDIT THIS RECORD VIA PROVIDER ON THE FLY PCP - General Container Washer 12/30/23 documented as of this encounter
[2025-04-04 15:40] VITALS: BP 107/55; PULSE 80; RESP 18; TEMP 36.6; O2SAT 96
== END 2025-04-04 15:41 | disposition home or self-care (01) ==
PROVIDERS: Emergency Provider Emergency Medicine; PCP Internal Medicine
DX: F41.9 Anxiety disorder, unspecified (principal); R33.9 Retention of urine, unspecified
CPT/HCPCS: 99282; 99283

== ENCOUNTER 2025-04-06 13:37 | Emergency (ER) | payer MEDICARE, MEDICAID, SELFPAY ==
--- OUTSIDE RECORDS SUMMARY | 2025-04-05 20:05 | XMS_ITS | Continuity of Care Document ---
Author Organization [facility] Address [address] [place] [address]- Care Team Providers Care Tax Compliance Representative Name Role Phone Dk Rodriguez MD Primary Care Physician [phone] [id number] Date[facility]s): [facility]/05/25 - 04/05/[address] [address]- Discharge Disposition: A-D/C Walkout Attending Physician: Not on Staff, Attending MD Admitting Physician: Not on Staff, Admitting MD Referring Physician: Not on Staff, Referring MD Encounter Type: Disch ES Allergies, Adverse Reactions, Alerts No Known Allergies Immunizations Given and Recorded Vaccine Date Status Refusal Reason pneumococcal 23-valent vaccine 09/30/12 Given Medications ARIPiprazole 20 mg oral tablet 0 Refills, Maintenance, 12/13/22 11:45:00 PM EDT, Partial fill upon patient request if the prescription is for a schedule II opioid drug. Start Date: 12/13/22 Status: Ordered Medication Dispense Status: Completed Total Allowed Fills: 1 Fills Dispensed: 0 atorvastatin 10 mg oral tablet 1 tablet = 10 mg, By Mouth, Daily, 0 Refills, Maintenance, 12/13/22 11:42:00 PM EDT, Partial fill upon patient request if the prescription is for a schedule II opioid drug. Start Date: 12/13/22 Status: Ordered Medication Dispense Status: Completed Total Allowed Fills: 1 Fills Dispensed: 0 carBAMazepine 200 mg oral tablet 2.5 talets, By Mouth, Daily at bedtime, Refills 0, Maintenance, 12/13/22 11:40:00 PM EDT, Partial fill upon patient request if the prescription is for a schedule II opioid drug. Start Date: 12/13/22 Status: Ordered Medication Dispense Status: Completed Total Allowed Fills: 1 Fills Dispensed: 0 clonazePAM 0.5 mg oral tablet 1 tablet = 0.5 mg, By Mouth, Daily, 0 Refills, Maintenance, 12/13/22 11:41:00 PM EDT, Tablet, Partial fill upon patient request if the prescription is for a schedule II opioid drug. Start Date: 12/13/22 Status: Ordered Medication Dispense Status: Completed Total Allowed Fills: 1 Fills Dispensed: 0 Flomax 0.4 mg oral capsule 0.4 mg, 1, capsule, By Mouth, Daily, Refills 0, Maintenance, 04/06/20 1:22:00 AM EST Start Date: 04/06/20 Status: Ordered Medication Dispense Status: Completed Total Allowed Fills: 1 Fills Dispensed: 0 HydrOXYzine HCL Tablet = 10 mg, By Mouth, 3 times a day, PRN Itch, 0 Refills, Maintenance, 11/18/14 1:50:21 PM EDT, Tablet Start Date: 11/18/14 Status: Ordered Medication Dispense Status: Completed Total Allowed Fills: 1 Fills Dispensed: 0 olanzapine 15 mg oral tablet 1 tablet = 15 mg, By Mouth, Daily, Maintenance, 01/07/23 1:57:00 PM EDT, Tablet, Partial fill upon patient request if the prescription is for a schedule II opioid drug. Start Date: 01/07/23 Status: Ordered Medication Dispense Status: Completed Total Allowed Fills: 1 Fills Dispensed: 0 omeprazole 40 mg oral enteric coated capsule 1 capsule = 40 mg, By Mouth, Daily, Maintenance, 01/07/23 1:59:00 PM EDT, EC Capsule, Partial fill upon patient request if the prescription is for a schedule II opioid drug. Start Date: 01/07/23 Status: Ordered Medication Dispense Status: Completed Total Allowed Fills: 1 Fills Dispensed: 0 QUEtiapine 25 mg oral tablet 25 mg, 1, tablet, By Mouth, 2 times a day, PRN, Refills 0, Maintenance, 12/13/22 11:41:00 PM EDT, Partial fill upon patient request if the prescription is for a schedule II opioid drug. Start Date: 12/13/22 Status: Ordered Medication Dispense Status: Completed Total Allowed Fills: 1 Fills Dispensed: 0 Thera-M oral tablet 1 tablet, By Mouth, Daily, 0 Refills, Maintenance, 01/07/23 1:58:00 PM EDT, Partial fill upon patientrequest if the prescription is for a schedule II opioid drug. Start Date: 01/07/23 Status: Ordered Medication Dispense Status: Completed Total Allowed Fills: 1 Fills Dispensed: 0 traZODone 50 mg oral tablet 50 mg, 1, tablet, By Mouth, Daily at bedtime, Maintenance, 01/07/23 1:59:00 PM EDT, Partial fill uponpatient request if the prescription is for a schedule II opioid drug. Start Date: 01/07/23 Status: Ordered Medication Dispense Status: Completed Total Allowed Fills: 1 Fills Dispensed: 0 Mental Status Mental Status Assessment Assessment Assessment Component Result Effecti ve Date Gregorio coma score total 15 04/05/25 Problem List Condition Confirmation Course Effective Dates Status Health St atus Informant Alcohol Abuse, in Remission Confirmed Active Anxiety Confirmed Active Carbuncle of face Confirmed Active Vital Signs Most recent to oldest [Reference Range]: 1 Height 179 cm (04/05/25 7:37 PM) Weight 66 kg (04/05/25 7:37 PM) Oxygen Saturation [94-100 %] 100 % (04/05/25 7:37 PM) Pulse Rate [55-90 bpm] 90 bpm (04/05/25 7:37 PM) Body Mass Index [18.5-24.99 kg/m2] 20.6 kg/m2 (04/05/25 7:37 PM) Blood Pressure [90-138/55-84 mm Hg] 114/ 79mm Hg (04/05/25 7:37 PM) Respiratory Rate [16-30 br/min] 17 br/mi n (04/05/25 7:37 PM) Temperature [96.8-100.4 DegF] 98.4 DegF (04/05/25 7:37 PM) Mode of Delivery (Oxygen) Room air (04/05/25 7:37 PM) Blood pressure sites Arm, left (04/05/25 7:37 PM) Temperature Route Oral (04/05/25 7:37 PM) Dry Weight 66 kg (04/05/25 7:37 PM) Weight Obtained Via Patient/family state d (04/05/25 7:37 PM) Dry Weight Obtained Via Patient/family s tated (04/05/25 7:37 PM) Social History Social History Type Response Smoking Status Current every day sm oker; Tobacco user in household: Yes entered on: 04/26/14 Sex Male Sex Representation Male (finding) Patient Care team information Care Team Personnel Name: Michael WILBURN, Dk Canales Position: Reference Physician Member Role: PCP Address: [address] [place] [address] Telecom: Name: Dena Bernal RN Position: [facility] RN Member Role: Primary Care Nurse Name: Irma Stout RN Position: [facility] RN Member Role: Primary Care Nurse Care Team Related Persons Name: RIZWANA MENDOZA Name: RIGO TORIBIO Name: STAFF, SENIOR CARE Insurance Providers Guarantor name: RAGHAV TORIBIO Health Plan Information #: 1 Payer: [employer] Payer Identifier: SRIDHAR Member Number: [id number] Group Number: [id number] Subscriber Identifier: [id number] Relationship to Subscriber: self Coverage Type: Self-pay (Includes applicants for insurance and Medicaid applicants) Coverage Verification Date: SRIDHAR Telecom: NA Address:
[2025-04-06 13:53] VITALS: BP 105/60; PULSE 80; RESP 16; TEMP 36.4; O2SAT 97; BMI 20.4
--- OUTSIDE RECORDS SUMMARY | 2025-04-06 14:06 | XMS_ITS | Encounter Summary ---
Author Organization [facility] Address [address] [place] [address] Care Team Providers Care Progress Man Name Role Phone Ref, Has No Pcp Or Primary Care Provider Unavail able Encounter Details Date Type Department Care Team (Late st Contact Info) Description 01/04/2024 Community Orders [facility] EpicCare Link [address] [place] [address] Bethany Lozano, MEDICAL IMAGING DIRECTOR [address] [place] [address] Social History Tobacco Use Types Packs/Day Years [...] on filedocumented in this encounter Care Teams Progress Man Relationship Specialty Start Date End Date Ref, Has No Pcp Or DO NOT EDIT THIS RECORD VIA PROVIDER ON THE FLY PCP - General Corporate Concierge 12/30/23 documented as of this encounter
--- OUTSIDE RECORDS SUMMARY | 2025-04-06 14:06 | XMS_ITS | Clinical Summary ---
Author Organization [facility] Address [address] [place] [address] Care Team Providers Care Crimper Assembler Name Role Phone Ref, Has No [...] Plan (01/03/2024 2:32 PM EDT): Presents from [facility] in the setting of urinary [...] (01/03/2024 10:49 AM EDT): Presented from [facility] with hyponatremia (initially 123). Also had [...] Plan (01/02/2024 11:43 AM EDT): Presents from [facility] in the setting of urinary [...] Seroquel 25 mg twice daily Presents from [facility]'s forensic unit with documented history of schizophrenia. 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 Continue home aripiprazole 20mg daily Continue home carbamazepine 500 mg twice daily Continue home Zyprexa 15 mg nightly Continue home Seroquel 25 mg twice daily Consider psychiatry consult if concern that antipsychotic medications are causing SIADH Patient presents from [facility], requires constant observation BPH (benign prostatic hyperplasia) 12/30/2023 Assessment & Plan (01/03/2024 2:33 PM EDT): Paperwork from the [facility] indicates history of BPH with prior need for intermittent catheterization requiring urology evaluation in the past, records not available in our system). Per documentation from [facility] patient has seen urology at [facility] in [place]. He was started on Flomax outpatient. In [...] (01/02/2024 11:43 AM EDT): Paperwork from the [facility] indicates history of BPH with prior need for intermittent catheterization requiring urology evaluation in the past, records not available in our system). Per documentation from [facility] patient has seen urology at [facility] in [place]. He was started on Flomax outpatient. In [...] 01/29/2024 Insurance [facility] MEDICARE [facility] Advance Directives * Full Code (Latest Code Status on File) Date Activated Date Inactivated Comments 12/30/2023 7:22 PM 01/03/2024 8:48 PM * Presumed Full Code Date Activated Date Inactivated Comments 12/30/2023 7:00 PM 12/30/2023 7:22 PM Care Teams Crimper Assembler Relationship Specialty Start Date End Date Ref, Has No Pcp Or DO NOT EDIT THIS RECORD VIA PROVIDER ON THE FLY PCP - General Technology Services Manager 12/30/23
--- NOTE | 2025-04-06 14:15 | ECG_ITS ---
Test Reason : PALPAT Blood Pressure : */* mmHG Vent. Rate : 72 BPM Atrial Rate : 72 BPM P-R Int : 132 ms QRS Dur : 86 ms QT Int : 366 ms P-R-T Axes : 67 -7 31 degrees QTcB Int : 400 ms Normal sinus rhythm Normal ECG When compared with ECG of 14-Mar-2025 21:06, No significant change was found Referred By: Maritza Krishnamurthy Electronically Signed By: Yehuda Joy
--- NOTE | 2025-04-06 14:16 | ED_ITS ---
HPI - General Adult General Chief complaint: General Medical Stated complaint: anxiety Time Seen by Provider: 04/06/25 14:06 Source: patient and RN notes reviewed Mode of arrival: ambulatory Limitations: no limitations History of Present Illness ED Provider: Maritza Krishnamurthy PA-C HPI narrative: This is a 59-year-old male, with a past medical history of BPH, chronic suprapubic pain, GERD, hyperlipidemia, and schizoaffective disorder, who presents emergency department with concerns of bladder cramping and palpitations. Patient is well-known to the department for similar presentations. Patient reports that he has had bladder cramping which started several weeks ago, worsening today. He denies any fevers, chills, chest pain, shortness of breath, abdominal pain, nausea, vomiting, diarrhea, urinary frequency, urinary urgency, hematuria. He states that he does have some bladder cramping which she has a history of. He does report palpitations, states that they last occurred today, however states that this has since resolved. Patient reports that he does self-catheterize himself however states that he has not been doing so as it ?hurts him too much?. Denies any other complaints or concerns at this time. MD complaint: Bladder cramping, palpitations Onset (ago): day(s) Relieving factors: none Exacerbating factors: none Associated symptoms: denies other symptoms Treatments prior to arrival: none Related Data Home Medications ?Medication ?Instructions ?Recorded ?Confirmed aripiprazole 30 mg tablet 30 mg PO DAILY 01/31/2502/04 lorazepam 1 mg tablet 1 mg PO DAILY PRN Anxiety 02/25/25 quetiapine 100 mg tablet 100 mg PO BEDTIME 01/31/25 0 02/25/25 quetiapine 50 mg tablet 50 mg PO BID 01/31/25 olanzapine 10 mg tablet 10 mg PO TID 02/03/25 Previous Rx's ?Medication ?Instructions ?Recorded atorvastatin 20 mg tablet 20 mg PO QPM 90 days #90 tab s 01/10/25 tamsulosin 0.4 mg capsule 0.4 mg PO QAM 90 days #90 ca ps 01/10/25 cefuroxime axetil 500 mg tablet 500 mg PO BID 7 days # 14 tabs 03/10/25 Allergies Allergy/AdvReac Type Severity Reaction Status Date / Time No Known Allergies (NO KNOWN Allergy Unknown UNKNOWN Verified 04/06/25 13:55 ALLERGIES) Review of Systems 2 Review of Systems: Constitutional : No Fever, No Chills ENT/Mouth : No sore throat, No Rhinorrhea Eyes: No Eye Pain, No Swelling, No Redness Cardiovascular : No Chest Pain, No SOB Respiratory : No Cough, No Sputum Gastrointestinal : No Nausea, No Vomiting, No Diarrhea, No abdominal Pain Genitourinary : No Dysuria, No Hematuria Musculoskeletal : No joint pain, No Myalgias, No Joint Swelling Skin : No Skin Lesions Neuro : No Weakness, No Numbness, No Headache All other systems reviewed and are negative Yes all other systems are reviewed and are negative Constitutional: Constitutional: Reports as per [facility] Past Medical History Medical History Acute anxiety Smoker GERD without esophagitis Tubular adenoma of colon (~2018) Personal history of nicotine dependence Constipation Back pain Schizoaffective disorder, bipolar type Anxiety Benign prostatic hyperplasia with lower urinary tract symptoms Pure hypercholesterolemia Thought disorder Bipolar 1 disorder Mood disorder Surgical History History of colonoscopy (~04/2019) History of prostate surgery (~04/2019) History of open reduction and internal fixation (ORIF) procedure (~08/2018) Family History Family History Father Lung cancer BPH (benign prostatic hyperplasia) Mother Dementia Brother Myocardial infarction Other Mental health problem Substance abuse Social History Social History Household Members: Other Housing: Other Housing Other:: Residential Do you presently have visiting nurse or other home services: No Alcohol intake: never Patient Tobacco Use Status: Current everyday Tobacco user Tobacco use type: Cigarette Cigarette Packs Per Day: 0.5 Cigarettes Per Day: 10.0 Years Smoked: 10 e-Cigarette/Vaping Use: Never Used Second Hand Smoke Exposure: Yes Advance Directives: No Advance Directives Information Provided: Yes service: No Current occupational status: employed and disabled Current occupation: [employer] Sexual orientation: Straight/Heterosexual Cognitive needs: No Hearing needs: No Vision needs: Yes Physical Exam ED Vital Signs: Vital Signs - 24 hr 11/02/25 13:53 04/06/25 16:35 Temperature 97.5 F 97.5 F Pulse Rate 80 80 Respiratory Rate 16 16 Blood Pressure 105/60 105/60 Pulse Oximetry 97 97 Oxygen Delivery Method Room Air Room Air BMI result Body Mass Index 20.4 Const General: cooperative, comfortable and no acute distress Orientation/consciousness: patient oriented x3 Limitations: no limitations HENMT Head: Yes normal to inspection, Yes normocephalic and Yes atraumatic Ears: hearing grossly normal bilaterally General nose exam: Normal external nose present Face and sinus: Yes normal facial exam Mouth: Normal oral and palatal mucosa present, oropharynx normal and moist mucous membranes Throat: Yes posterior oropharynx normal Eyes General: appearance normal, both eyes and all related structures Eyelids: Yes eyelids normal Conjunctivae: conjunctivae normal Sclerae: sclerae normal Pupils: Equal, round and reactive pupils present EOM: EOMs intact bilaterally Neck Neck: Yes normal visual inspection, Yes full ROM and Yes no lymphadenopathy Lymphatic: no lymphadenopathy noted Chest Chest palpation & inspection: normal inspection of the chest Resp Effort & Inspection: normal respiratory effort and able to speak in complete sentences Auscultation: clear to auscultation bilaterally, no crackles, no rales, no rhonchi and no wheezes Cardio Rate: regular rate Rhythm: regular rhythm Heart sounds: S1 normal heart sound present and S2 normal heart sound present GI Other: Abdomen is soft, nontender, nondistended. Inspection: Yes normal to inspection Skin General skin exam: no rashes or lesions noted Trauma: no lacerations or abrasions Wounds: no wounds Neuro General: patient oriented x3 and moves all extremities Cranial nerves: Yes Equal, round and reactive pupils present Extrem General: Yes normal to inspection Right upper extremity: normal to inspection Left upper extremity: normal to inspection Right lower extremity: normal to inspection Left lower extremity: normal to inspection Medical Decision Making Medical Decision Making MDM Narrative: This is a 59-year-old male, with a past medical history of BPH, chronic suprapubic pain, GERD, hyperlipidemia, and schizoaffective disorder, who presents emergency department with concerns of bladder cramping and palpitations. On arrival, vital signs within normal limits, patient is well- appearing, appears to be under no acute distress. Patient does report some ?bladder cramping?, which he has a history of, as well as palpitations. Patient states that the palpitations has been ongoing for several weeks, last had an episode today. 5:31 PM 04/06/2025 (Maritza Krishnamurthy PA-C): Labs were performed, he has no leukocytosis, he has a normocytic anemia with an H&H of 13.2/40.3, platelets 105 - decreased from previous, advised follow-up with PCP. Patient bladder scan shows 604 cc in the bladder. Patient's self catheterized, and he states that he would like to leave the emergency room. Discussed with patient that he needs to self cath himself when he returns home. He states that he does not like self catheterizing himself when he needs to as it ?hurts him?. Stressed the importance of doing this as urinary retention can be harmful. His urine does not appear to be infected. TSH low at 0.25, which patient has a history of. Patient given strict return precautions, he understands and agrees with plan. Patient stable for discharge. Differential Diagnosis Differential Diagnoses: The differential diagnosis associated with the presentation includes Electrolyte derangement, ACS-unlikely, UTI, urinary retention, anxiety Lab Data [facility] Lab Attestation statement: I reviewed the patient's lab results. See MDM 04/06/25 14:43 04/06/25 14:43 Labs: Lab Results 04/06/25 Range/Units 14:43 WBC 8.1 (4.8-10.8) X10*3/uL RBC 4.27 L (4.60-5.80) X10*6/uL Hgb 13.2 L (14.0-18.0) g/dl Hct 40.3 L (42.0-52.0) % MCV 94.4 (80.0-98.0) fL MCH 30.9 (27.0-33.0) pg MCHC 32.8 (31.0-36.0) g/dl RDW 13.7 (11.0-16.0) % Plt Count 105 L D (160-400) X10*3/uL MPV 12.2 (9.4-12.4) fL Immature Gran % (Auto) 0.4 (0.0-0.4) % Neut % (Auto) 74.5 H (45-73) % Lymph % (Auto) 15.9 L (20-40) % [place] % (Auto) 7.6 (2-11) % Eos % (Auto) 0.7 (0-4) % Baso % (Auto) 0.9 (0-2) % Lymph # (Auto) 1.3 (1.2-4.9) X10*3/uL [place] # (Auto) 0.6 (0.1-1.2) X10*3/uL Eos # (Auto) 0.1 (0.0-0.4) X10*3/uL Baso # (Auto) 0.1 (0.0-0.2) X10*3/uL Abs Immat Gran (auto) 0.03 (0.00-0.03) X10*3/uL Absolute Neuts (auto) 6.0 (2.0-8.3) x10*3/uL Absolute Nucleated RBC 0.000 (0.0-0.012) X10*3/uL Nucleated RBC % (auto) 0.0 (0.0-0.2) /100WBC Sodium 139 (135-145) mmol/L Potassium 4.5 (3.3-5.1) mmol/L Chloride 106 (96-108) mmol/L Carbon Dioxide 23 (22-29) mmol/L Anion Gap 15 (12-20) BUN 12 (9-16) mg/dL Creatinine 0.99 (0.5-1.4) mg/dL Estim Creat Clear Calc 71.2 Estimated GFR > 60 Random Glucose 97 (60-115) mg/dL Calcium 8.6 (8.4-10.2) mg/dL Magnesium 1.9 (1.6-2.6) mg/dL Total Bilirubin 0.2 (0.0-1.0) mg/dL Direct Bilirubin < 0.2 (0.0-0.5) mg/dL AST 22 (5-37) U/L ALT 13 (0-40) U/L Alkaline Phosphatase 65 (39-117) U/L Troponin I High Sens < 2.7 (<3.5-35.0) ng/L Total Protein 6.2 L (6.5-8.0) g/dL Albumin 3.7 (3.5-5.0) g/dL TSH 0.25 L (0.32-4.0) uIU/mL Free T4 0.87 (0.71-1.85) ng/dL Urine Color Yellow Urine Appearance Clear Urine pH 7.0 (5.0-9.0) Ur Specific [place] 1.015 (1.005-1.025) Urine Protein Negative (Neg-Trace) mg/dL Urine Glucose (UA) Negative (Negative) mg/dL Urine Ketones Trace (Negative) mg/dL Urine Blood Negative (Negative) Urine Nitrite Negative (Negative) Ur Leukocyte Esterase Small (1+) H (Negative) Urine RBC 0-2 (0-2) /HPF Urine WBC 6-10 (0-5) /HPF Ur Squamous Epith Cells 0-2 (0-2) /HPF Urine Bacteria None Seen (None Seen) Hyaline Casts 0-2 (0-2) /LPF Independent Interpretation I performed an independent interpretation of an: EKG Interpretation: EKG normal sinus rhythm at a ventricular rate of 72 beats per minute, NH interval 132, QT QTC 366/400, no STEMI Discharge Plan Discharge Clinical Impression: Acute on chronic urinary retention, Thrombocytopenia Patient Disposition: Home, Self-Care Instructions: Urinary Retention in Men (ED), Thrombocytopenia (ED) Additional Instructions: You need to use your catheter at home. You have 600 cc in your bladder. You will continue to have increased pressure in her bladder until you do this. Your blood work was overall reassuring. Please follow-up with your primary care physician regarding your blood work If any new or worsening symptoms occur including but not limited to chest pain or shortness of breath, please return for re-evaluation. You were seen in the Emergency Department today. ?We understand that you have long standing concerns with your detention. Given the assisted issues you deal with we advise when you are struggling with these events and feelings that you reach out to your therapist, your counselors, and your CHD worker. You can always call [facility] Crisis [phone]. Please follow up with your outpatient providers. Please utilize your resources in the community for your longstanding issues and utilize the emergency department for emergent medical and psychiatric needs. Prescriptions: No Action quetiapine 100 mg tablet 100 mg PO BEDTIME lorazepam 1 mg tablet 1 mg PO DAILY PRN (Reason: Anxiety) aripiprazole 30 mg tablet 30 mg PO DAILY quetiapine 50 mg tablet 50 mg PO BID olanzapine 10 mg tablet 10 mg PO TID cefuroxime axetil 500 mg tablet 500 mg PO BID 7 Days Qty: 14 0RF tamsulosin 0.4 mg capsule 0.4 mg PO QAM 90 Days Qty: 90 0RF atorvastatin 20 mg tablet 20 mg PO QPM 90 Days Qty: 90 3RF Interventions: ED Discharge Assessment Last Done: 04/06/25 16:35 Discharge Date/Time: 04/06/25 16:36 Print Language: Nauruan
[2025-04-06 14:55] LABS: MANUAL DIFF FLAG NO
[2025-04-06 14:57] LABS: NRBC Abs Auto 0.000 X10*3/uL (0.0-0.012); NRBC Pct Auto 0.0 /100WBC (0.0-0.2); PLT CLUMP 1; SCAN SMEAR FLAG 1
[2025-04-06 14:58] LABS: Appearance Urine Clear; Glucose Urine UA Negative (Negative); PH 7.0 (5.0-9.0); Specific Gravity - Urine 1.015 (1.005-1.025); UMIC TRIGGER UACC YES
[2025-04-06 14:59] LABS: Hematocrit 40.3 % (42.0-52.0); Hemoglobin 13.2 g/dl (14.0-18.0); Imm Gran Abs Auto 0.03 X10*3/uL (0.00-0.03); Imm Gran Pct Auto 0.4 % (0.0-0.4); Lymphocytes Absolute Auto 1.3 X10*3/uL (1.2-4.9); Mean Corpuscular HGB Conc 32.8 g/dl (31.0-36.0); Mean Corpuscular Hemoglobin 30.9 pg (27.0-33.0); Mean Corpuscular Volume 94.4 fL (80.0-98.0); Red Blood Count 4.27 X10*6/uL (4.60-5.80)
[2025-04-06 15:00] LABS: Platelet Count 105 X10*3/uL (160-400); White Blood Count 8.1 X10*3/uL (4.8-10.8)
[2025-04-06 15:07] LABS: UACC Culture Trigger YES
[2025-04-06 15:20] LABS: Alanine Aminotransferase 13 U/L (0-40); Albumin Level 3.7 g/dL (3.5-5.0); Alkaline Phosphatase 65 U/L (39-117); Anion Gap 15 (12-20); Aspartate Amino Transferase 22 U/L (5-37); Blood Urea Nitrogen 12 mg/dL (9-16); Calcium 8.6 mg/dL (8.4-10.2); Carbon Dioxide 23 mmol/L (22-29); Chloride 106 mmol/L (96-108); Creatinine Clr Calc Pharmacy 71.2; Estimated Glomerular Filt Rate > 60; Magnesium 1.9 mg/dL (1.6-2.6); Potassium 4.5 mmol/L (3.3-5.1); Sodium 139 mmol/L (135-145); Total Protein 6.2 g/dL (6.5-8.0); Troponin-I High Sensitivity < 2.7 ng/L (<3.5-35.0)
[2025-04-06 16:35] VITALS: BP 105/60; PULSE 80; RESP 16; TEMP 36.4; O2SAT 97
[2025-04-06 16:45] LABS: Free T4 (Free Thyroxine) 0.87 ng/dL (0.71-1.85)
== END 2025-04-06 16:36 | disposition home or self-care (01) ==
PROVIDERS: Physician Assistant Medical; Emergency Provider Emergency Medicine Emergency Medical Services; PCP Internal Medicine
DX: R33.9 Retention of urine, unspecified (principal); F41.9 Anxiety disorder, unspecified; D69.6 Thrombocytopenia, unspecified; R00.2 Palpitations; Z79.899 Other long term (current) drug therapy
CPT/HCPCS: 36415; 80048; 80076; 81001; 81003; 83735; 84439; 84443; 84484; 85025; 87086; 87147; 93005; 99283; 99284

== ENCOUNTER → 2025-04-06 14:15 | Outpatient (BNV) | payer MEDICARE, MEDICAID, SELFPAY | PROVIDERS: Emergency Provider Emergency Medicine Emergency Medical Services; PCP Internal Medicine; Visit Provider Internal Medicine Cardiovascular Disease | DX: R00.2 Palpitations (principal) | CPT/HCPCS: 93010 ==

== ENCOUNTER 2025-04-10 14:08 | Emergency (ER) | payer MEDICARE, MEDICAID, SELFPAY ==
[2025-04-10 14:13] VITALS: BP 116/71; PULSE 72; RESP 20; TEMP 36; O2SAT 98; BMI 25.1
--- NOTE | 2025-04-10 14:13 | ED_ITS ---
HPI - General Adult General Chief complaint: Behavioral Concerns Stated complaint: abnormal BP, issues w/ halfway Time Seen by Provider: 04/10/25 14:15 Source: patient Mode of arrival: ambulatory Limitations: no limitations History of Present Illness ED Provider: Fozia Jordan PA-C HPI narrative: Patient is a 59 year old assigned male at with a history of BPH, chronic suprapubic pain, GERD, HLD, and schizoaffective disorder presenting to the emergency department today because he is not getting along with the other individuals in his halfway. Patient states that today he is feeling worked up because he is not getting along with the other people in his halfway. Patient denies any thoughts of harming himself or others. Patient denies any other complaints at this time. Related Data Home Medications ?Medication ?Instructions ?Recorded ?Confirmed aripiprazole 30 mg tablet 30 mg PO DAILY 01/31/2502/04 lorazepam 1 mg tablet 1 mg PO DAILY PRN Anxiety 02/25/25 quetiapine 100 mg tablet 100 mg PO BEDTIME 01/31/25 0 02/25/25 quetiapine 50 mg tablet 50 mg PO BID 01/31/25 olanzapine 10 mg tablet 10 mg PO TID 02/03/25 Previous Rx's ?Medication ?Instructions ?Recorded atorvastatin 20 mg tablet 20 mg PO QPM 90 days #90 tab s 01/10/25 tamsulosin 0.4 mg capsule 0.4 mg PO QAM 90 days #90 ca ps 01/10/25 cefuroxime axetil 500 mg tablet 500 mg PO BID 7 days # 14 tabs 03/10/25 Allergies Allergy/AdvReac Type Severity Reaction Status Date / Time No Known Allergies (NO KNOWN Allergy Unknown UNKNOWN Verified 04/10/25 14:14 ALLERGIES) Review of Systems Constitutional: Constitutional: Reports as per HPI Eyes: Eyes: Reports as per HPI ENT: Reports as per HPI Cardiovascular: Cardiovascular: Reports as per HPI Respiratory: Respiratory: Reports as per HPI Gastrointestinal: Gastrointestinal: Reports as per HPI Genitourinary: Genitourinary: Reports as per HPI Musculoskeletal: Musculoskeletal: Reports as per HPI Integumentary/Breasts: Skin/Breast: Reports as per HPI Neurologic: Reports as per HPI Psychiatric: Psychiatric: Reports as per HPI Endocrine: Endocrine: Reports as per HPI Hematologic/Lymphatic: Hematologic/Lymphatic: Reports as per HPI Allergic/Immunologic: Allergic/Immunologic: Reports as per HPI PMFSH Past Medical History Attestation statement: The following information was validated with the patient. Source: old records reviewed and nursing notes reviewed Medical History Acute anxiety Smoker GERD without esophagitis Tubular adenoma of colon (~2018) Personal history of nicotine dependence Constipation Back pain Schizoaffective disorder, bipolar type Anxiety Benign prostatic hyperplasia with lower urinary tract symptoms Pure hypercholesterolemia Thought disorder Bipolar 1 disorder Mood disorder Surgical History History of colonoscopy (~04/2019) History of prostate surgery (~04/2019) History of open reduction and internal fixation (ORIF) procedure (~08/2018) Family History Family History Father Lung cancer BPH (benign prostatic hyperplasia) Mother Dementia Brother Myocardial infarction Other Mental health problem Substance abuse Social History Social History Household Members: Other Housing: Other Housing Other:: Snf Do you presently have visiting nurse or other home services: No Alcohol intake: never Patient Tobacco Use Status: Current everyday Tobacco user Tobacco use type: Cigarette Cigarette Packs Per Day: 0.5 Cigarettes Per Day: 10.0 Years Smoked: 10 e-Cigarette/Vaping Use: Never Used Second Hand Smoke Exposure: Yes Advance Directives: No Advance Directives Information Provided: Yes Do you have a plan to hurt others: No Plan service: No Current occupational status: employed and disabled Current occupation: [employer] Sexual orientation: Straight/Heterosexual Cognitive needs: No Hearing needs: No Vision needs: Yes Physical Exam ED Vital Signs: Vital Signs - 24 hr 04/10/25 14:13 04/10/25 16:13 Temperature 96.8 F 96.8 F Pulse Rate 72 72 Respiratory Rate 20 20 Blood Pressure 116/71 116/71 Pulse Oximetry 98 98 Oxygen Delivery Method Room Air Room Air BMI result Body Mass Index 25.1 Const General: cooperative, no acute distress, alert and awake Nutritional Appearance: well nourished Orientation/consciousness: patient oriented x3 HENMT Head: Yes normal to inspection and Yes atraumatic Ears: hearing grossly normal bilaterally and external ears normal General nose exam: Normal external nose present, no nasal discharge noted and no epistaxis Face and sinus: Yes normal facial exam, No abrasion and No laceration Mouth: Normal oral and palatal mucosa present, no drooling and no muffled voice Eyes General: appearance normal, both eyes and all related structures Periorbital: periorbital findings normal Eyelids: Yes eyelids normal Conjunctivae: conjunctivae normal Pupils: Equal, round and reactive pupils present EOM: EOMs intact bilaterally Neck Neck: Yes normal visual inspection and Yes full ROM Resp Effort & Inspection: normal respiratory effort and able to speak in complete sentences Neuro General: patient oriented x3, moves all extremities and CN's II-XI intact bilaterally Cranial nerves: Yes Equal, round and reactive pupils present Cognition (Neuro): normal cognition Extrem General: Yes normal to inspection, Yes full ROM and Yes capillary refill normal Psych Appearance: grossly normal Mental Status: mental status grossly normal Medical Decision Making Medical Decision Making MDM Narrative: Patient is a 59 year old assigned male at with a history of BPH, chronic suprapubic pain, GERD, HLD, and schizoaffective disorder presenting to the emergency department today because he is not getting along with the other individuals in his halfway. Patient's physical exam was as noted in the physical exam portion of this note. I explained my physical exam findings to the patient. I answered all questions asked by the patient. I stressed the importance of the patient taking his medication as directed (either prescribed or as the over the counter packaging recommends). I stressed the importance of the patient following up with his primary care provider. I stressed the importance of the patient returning to the emergency department immediately if he were to develop any thoughts of hurting himself, thoughts of hurting others, dizziness, shortness of breath, difficulty breathing, chest pain, blurry vision, loss of vision, nausea, vomiting, abdominal pain, fever, chills, back pain, or any other complaints. Patient verbalized agreement and understanding with this treatment plan and discharge. Differential Diagnosis Differential Diagnoses: The differential diagnosis associated with the presentation includes Anxiety Poor coping skills Admission/Observation Consideration of admission/observation: Escalation of care including admission/observation considered Patient would have been admitted to the hospital had his clinical presentation warranted hospital admission. Discharge Plan Discharge Clinical Impression: Anxiety Patient Disposition: Home, Self-Care Instructions: Anxiety (ED) Additional Instructions: We understand that you have long standing concerns with your halfway. Given the residential issues you deal with we advise when you are struggling with these events and feelings that you reach out to your therapist, your counselors, and your CHD worker. You can always call CHD Crisis at [phone]. Please follow up with your outpatient providers. Please utilize your resources in the community for your longstanding issues and utilize the emergency department for emergent medical and psychiatric needs. IF you are prescribed home medications and/or you are taking over the counter medications at home - it is very important you continue to do so as prescribed / directed unless told otherwise. Follow up with your primary care provider. Return to the emergency department immediately if your symptoms worsen or if you develop any numbness, tingling, dizziness, shortness of breath, difficulty breathing, chest pain, blurry vision, loss of vision, nausea, vomiting, abdominal pain, fever, chills, back pain, or any other complaints. Please see the information below about our Patient Portal. If you are not yet enrolled in the [facility] Patient Portal, you will receive an enrollment email invitation following your visit to any [facility] setting. You may also self-enroll in the Patient Portal by visiting our website: [email or web address] The following information is required to access the Patient Portal: - Your [facility] Medical Record Number - Your personal home email address (must match what is in your electronic medical record, Registration staff can assist with this) - Name - Date of Capabilities of the Patient Portal: - Message some providers - View upcoming appointments - Access your health summary, medical history, and visit history - View current conditions and allergies - View procedure and lab results - View your medications, including guidelines, side effects, and precautions - Complete pre-appointment questionnaires requested by your provider - Ready summary reports of your office visits and procedures To access the Patient Portal Mobile [employer], follow these directions: - Search [employer] in the [employer] Store or Google Play Store - Download the [employer] - Search for [facility] - Enter your login/password Prescriptions: No Action quetiapine 100 mg tablet 100 mg PO BEDTIME lorazepam 1 mg tablet 1 mg PO DAILY PRN (Reason: Anxiety) aripiprazole 30 mg tablet 30 mg PO DAILY quetiapine 50 mg tablet 50 mg PO BID olanzapine 10 mg tablet 10 mg PO TID cefuroxime axetil 500 mg tablet 500 mg PO BID 7 Days Qty: 14 0RF tamsulosin 0.4 mg capsule 0.4 mg PO QAM 90 Days Qty: 90 0RF atorvastatin 20 mg tablet 20 mg PO QPM 90 Days Qty: 90 3RF Referrals: Dk Rodriguez MD [Primary Care Provider, Internal Medicine] Interventions: ED Discharge Assessment Last Done: 04/10/25 16:13 Discharge Date/Time: 04/10/25 16:14 Print Language: Arabic
[2025-04-10 16:13] VITALS: BP 116/71; PULSE 72; RESP 20; TEMP 36; O2SAT 98
--- OUTSIDE RECORDS SUMMARY | 2025-04-10 17:44 | XMS_ITS | Clinical Summary ---
Author Organization [facility] Address [address] [place] [address] Care Team Providers Care Snack Foods Mixer Operator Name Role Phone Ref, Has No [...] Seroquel 25 mg twice daily Presents from [facility]'s forensic unit with documented history of schizophrenia. 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 Continue home aripiprazole 20mg daily Continue home carbamazepine 500 mg twice daily Continue home Zyprexa 15 mg nightly Continue home Seroquel 25 mg twice daily Consider psychiatry consult if concern that antipsychotic medications are causing SIADH Patient presents from [facility], requires constant observation BPH (benign prostatic hyperplasia) 12/30/2023 Assessment & Plan (01/03/2024 2:33 PM EDT): [facility] indicates history of BPH with prior need for intermittent catheterization requiring urology evaluation in the past, records not available in our system). Per documentation from [facility] patient has seen urology at [facility] in [place]. He was started on Flomax outpatient. In [...] (01/02/2024 11:43 AM EDT): Paperwork from the [facility] indicates history of BPH with prior need for intermittent catheterization requiring urology evaluation in the past, records not available in our system). Per documentation from [facility] patient has seen urology at [facility] in [place]. He was started on Flomax outpatient. In [...] 02/28/2029 02/28/2019, 03/22/2014, 03/22/2014, Additional history exists Tobacco Screening 06/05/2042 01/29/2024 Insurance [facility] MEDICARE [facility] Advance Directives * Full Code (Latest Code Status on File) Date Activated Date Inactivated Comments 12/30/2023 7:22 PM 01/03/2024 8:48 PM * Presumed Full Code Date Activated Date Inactivated Comments 12/30/2023 7:00 PM 12/30/2023 7:22 PM Care Teams Snack Foods Mixer Operator Relationship Specialty Start Date End Date Ref, Has No Pcp Or DO NOT EDIT THIS RECORD VIA PROVIDER ON THE FLY PCP - General Group Leader 12/30/23
--- OUTSIDE RECORDS SUMMARY | 2025-04-10 17:44 | XMS_ITS | Clinical Summary ---
Author Organization [facility] Address [address] [place] [address] Phone Care Team Providers Care Manufacturing Applications Engineer Name Role Phone Dk Rodriguez MD Primary Care Provider [phone] Allergies No known active allergies Medications No known medications Encounters Date Type Department Care Team Description 03/30/2025 9:37 PM EDT - 03/30/2025 11:09 PM EDT [facility] Emergency [address] [place] [phone] Discharge Disposition: Left Against Medical Advice 03/06/2025 9:24 PM EDT - 03/06/2025 9:57 PM EDT [facility] Emergency [address] [place] [phone] Discharge Disposition: Home or Self Care 02/15/2025 9:21 PM EDT - 02/15/2025 9:45 PM EDT [facility] Emergency [address] [place] [phone] Encounter for Santos catheter removal (Primary Dx) Discharge Disposition: Home or Self Care 02/14/2025 8:31 PM EDT - 02/14/2025 9:27 PM EDT [facility] Emergency [address] [place] [phone] Urinary retention (Primary Dx) Discharge Disposition: Home or Self Care 02/10/2025 9:24 PM EDT - 02/10/2025 11:43 PM EDT [facility] Emergency [address] [place] [phone] Discharge Disposition: Home or Self Care 02/01/2025 8:58 PM EDT - 02/01/2025 10:49 PM EDT [facility] Emergency [address] [place] [phone] Discharge Disposition: Home or Self Care 01/30/2025 8:57 PM EDT - 01/31/2025 12:[address] [facility] Emergency [address] [place] [address] Discharge Disposition: Home or Self Care 01/28/2025 9:14 PM EDT - 01/28/2025 11:28 PM EDT [facility] Emergency [address] [place] [phone] Discharge Disposition: Home or Self Care 01/14/2025 8:53 PM EDT - 01/15/2025 12:26 AM EDT [facility] Emergency [address] [place] [phone] Discharge Disposition: Home or Self Care 01/12/2025 8:45 PM EDT - 01/12/2025 11:57 PM EDT [facility] Emergency [address] [place] [phone] Dilcia Carl MD Discharge Disposition: Left Against Medical Advice from Last 3 Months Medical History Medical History Date Comments Bipolar 1 disorder ([facility] V24, [facility] V28) Mood disorder ([facility] V24) Hyperactivity of bladder Social [...] Insurance MEDICARE MEDICAID - [place] Care Teams Manufacturing Applications Engineer Relationship Specialty Start Date End Date Dk Rodriguez MD [address] [place] [address] [address] [place] PCP - General Internal Medicine 07/16/24
--- OUTSIDE RECORDS SUMMARY | 2025-04-10 17:44 | XMS_ITS | Encounter Summary ---
Author Organization [facility] Address [address] [place] [address] Care Team Providers Care Set Making Machine Operator Name Role Phone Ref, Has No Pcp Or Primary Care Provider Unavail able Encounter Details Date Type Department Care Team (Late st Contact Info) Description 01/04/2024 Community Orders [facility] EpicCare Link [address] [place] [address] Bethany Lozano, BEVERAGE DISTILLER [address] [place] [address] Social History Tobacco Use Types Packs/Day Years [...] on filedocumented in this encounter Care Teams Set Making Machine Operator Relationship Specialty Start Date End Date Ref, Has No Pcp Or DO NOT EDIT THIS RECORD VIA PROVIDER ON THE FLY PCP - General Hotel Baggage Handler 12/30/23 documented as of this encounter
== END 2025-04-10 16:14 | disposition home or self-care (01) ==
PROVIDERS: Emergency Provider Emergency Medicine; PCP Internal Medicine
DX: F41.9 Anxiety disorder, unspecified (principal); F25.9 Schizoaffective disorder, unspecified; Z79.899 Other long term (current) drug therapy
CPT/HCPCS: 99282

== ENCOUNTER 2025-04-12 16:01 | Emergency (ER) | payer MEDICARE, MEDICAID, SELFPAY ==
--- OUTSIDE RECORDS SUMMARY | 2025-04-10 20:45 | XMS_ITS | Encounter Summary ---
Author Organization [facility] Address [address] [place] [address] Care Team Providers Care Laundry Technician Name Role Phone Dk Rodriguez MD Primary Care Provider [phone] Reason for Visit * Reason Comments Difficulty Urinating CATHETER REMOVED ON E MONTH AGO. Encounter Details Date Type Department Care Team (Late st Contact Info) Description 04/10/2025 8:45 PM EST - 04/10/2025 10:25 PM EST Emergency [facility] Emergency [address] [place] [phone] Discharge Disposition: Home or Self Care Social [...] 04/10/2025 8:55 PM Anna Sanchez RN * [place] Suicide Severity Rating Scale (Screener/Recent Self-Report) Question [...] LIKE THIS SINCE [place] [facility] [place]. PT STATES BLADDER PAIN- NORMAL URINE OUTPUT. documented in this encounter Plan of Treatment Not on file documented as of this encounter Visit Diagnoses Not on filedocumented in this encounter Care Teams Laundry Technician Relationship Specialty Start Date End Date Dk Rodriguez MD [address] [place] [address] [address] [place], [place] PCP - General Internal Medicine 07/16/24 documented as of this encounter
--- NOTE | 2025-04-12 16:14 | ED.GENADULT ---
HPI - General Adult General Chief complaint: Anxiety Stated complaint: Not feeling good Time Seen by Provider: 04/12/25 16:14 Source: patient and RN notes reviewed Mode of arrival: ambulatory Limitations: no limitations History of Present Illness HPI narrative: 59-year-old male presents for evaluation stating ?I just did not feel right at home?. Patient states he was sitting in his recliner, watching TV when he reports feeling anxious. Patient states he left his nursing home and walked to the emergency department. Patient states his symptoms have since resolved. He is dissatisfied with his care at the nursing home but states that he would like to get back because he is due for his medications this evening. Patient currently has no physical complaints. He adamantly denies any suicidal or homicidal ideation. No auditory or visual hallucinations. No illicit drug use. Related Data Home Medications ?Medication ?Instructions ?Recorded ?Confirmed aripiprazole 30 mg tablet 30 mg PO DAILY 01/31/25 02/25/25 lorazepam 1 mg tablet 1 mg PO DAILY PRN Anxiety 01/31/25 02/25/25 quetiapine 100 mg tablet 100 mg PO BEDTIME 01/31/25 02/25/25 quetiapine 50 mg tablet 50 mg PO BID 01/31/25 02/25/25 olanzapine 10 mg tablet 10 mg PO TID 02/03/25 02/25/25 Previous Rx's ?Medication ?Instructions ?Recorded atorvastatin 20 mg tablet 20 mg PO QPM 90 days #90 tabs 01/10/25 tamsulosin 0.4 mg capsule 0.4 mg PO QAM 90 days #90 caps 01/10/25 cefuroxime axetil 500 mg tablet 500 mg PO BID 7 days #14 tabs 03/10/25 Allergies Allergy/AdvReac Type Severity Reaction Status Date / Time No Known Allergies (NO KNOWN Allergy Unknown UNKNOWN Verified 04/12/25 16:21 ALLERGIES) Review of Systems Review of Systems: Yes all other systems are reviewed and are negative Cardiovascular: Cardiovascular: Denies chest pain Musculoskeletal: Musculoskeletal: Denies deformity Psychiatric: Psychiatric: Reports no additional psychiatric complaints PMFSH Past Medical History Medical History Acute anxiety Smoker GERD without esophagitis Tubular adenoma of colon (~2018) Personal history of nicotine dependence Constipation Back pain Schizoaffective disorder, bipolar type Anxiety Benign prostatic hyperplasia with lower urinary tract symptoms Pure hypercholesterolemia Thought disorder Bipolar 1 disorder Mood disorder Surgical History History of colonoscopy (~04/2019) History of prostate surgery (~04/2019) History of open reduction and internal fixation (ORIF) procedure (~08/2018) Family History Family History Father Lung cancer BPH (benign prostatic hyperplasia) Mother Dementia Brother Myocardial infarction Other Mental health problem Substance abuse Social History Social History Household Members: Other Housing: Other Housing Other:: Half-Way Do you presently have visiting nurse or other home services: No Alcohol intake: never Patient Tobacco Use Status: Current everyday Tobacco user Tobacco use type: Cigarette Cigarette Packs Per Day: 0.5 Cigarettes Per Day: 10.0 Years Smoked: 10 e-Cigarette/Vaping Use: Never Used Second Hand Smoke Exposure: Yes Advance Directives: No Advance Directives Information Provided: Yes service: No Current occupational status: employed and disabled Current occupation: [employer] Sexual orientation: Straight/Heterosexual Cognitive needs: No Hearing needs: No Vision needs: Yes Physical Exam ED Vital Signs: Vital Signs - 24 hr 04/12/25 16:19 04/12/25 17:21 Temperature 97.3 F 97.3 F Pulse Rate 82 82 Respiratory Rate 18 18 Blood Pressure 114/65 114/65 Pulse Oximetry 96 96 Oxygen Delivery Method Room Air Room Air BMI result Body Mass Index 19.9 Const General: alert, awake and Physically active Resp Effort & Inspection: normal respiratory effort Cardio Rate: regular rate Rhythm: regular rhythm Psych Attitude: cooperative Medical Decision Making Medical Decision Making MDM Narrative: 59-year-old male who has a long history of anxiety, currently reports symptoms are resolved. He is requesting to return to his nursing home so he may be given his evening medications. Again confirms no suicidal or homicidal ideation. He feels comfortable with this plan. No physical complaints at this time. Differential Diagnosis Differential Diagnoses: The differential diagnosis associated with the presentation includes Anxiety Psychosis Acute stress reaction Discharge Plan Discharge Clinical Impression: Anxiety Patient Disposition: Home, Self-Care Instructions: Anxiety (ED) Additional Instructions: You were seen in the Emergency Department today. ?We understand that you have long standing concerns with your nursing home. Given the care home issues you deal with we advise when you are struggling with these events and feelings that you reach out to your therapist, your counselors, and your CHD worker. You can always call CHD Crisis [phone]. Please follow up with your outpatient providers. Please utilize your resources in the community for your longstanding issues and utilize the emergency department for emergent medical and psychiatric needs. Follow-up with your primary care provider. Call this week to schedule a follow-up appointment. Return to the emergency department if you have any worsening of symptoms, or any concerns. Get well soon! Prescriptions: No Action quetiapine 100 mg tablet 100 mg PO BEDTIME lorazepam 1 mg tablet 1 mg PO DAILY PRN (Reason: Anxiety) aripiprazole 30 mg tablet 30 mg PO DAILY quetiapine 50 mg tablet 50 mg PO BID olanzapine 10 mg tablet 10 mg PO TID cefuroxime axetil 500 mg tablet 500 mg PO BID 7 Days Qty: 14 0RF tamsulosin 0.4 mg capsule 0.4 mg PO QAM 90 Days Qty: 90 0RF atorvastatin 20 mg tablet 20 mg PO QPM 90 Days Qty: 90 3RF Interventions: ED Discharge Assessment Last Done: 04/12/25 17:21 Discharge Date/Time: 04/12/25 17:21 Print Language: Lithuanian
[2025-04-12 16:19] VITALS: BP 114/65; PULSE 82; RESP 18; TEMP 36.3; O2SAT 96; BMI 19.9
--- OUTSIDE RECORDS SUMMARY | 2025-04-12 16:38 | XMS_ITS | Encounter Summary ---
Author Organization [facility] Address [address] [place] [address] Care Team Providers Care Field Services Manager Name Role Phone Ref, Has No Pcp Or Primary Care Provider Unavail able Encounter Details Date Type Department Care Team (Late st Contact Info) Description 01/04/2024 Community Orders [facility] EpicCare Link [address] [place] [address] Bethany Lozano, COATER OPERATOR [address] [place] [address] Social History Tobacco Use Types Packs/Day Years [...] on filedocumented in this encounter Care Teams Field Services Manager Relationship Specialty Start Date End Date Ref, Has No Pcp Or DO NOT EDIT THIS RECORD VIA PROVIDER ON THE FLY PCP - General Master Fisher 12/30/23 documented as of this encounter
--- OUTSIDE RECORDS SUMMARY | 2025-04-12 16:38 | XMS_ITS | Clinical Summary ---
Author Organization [facility] Address [address] [place] [address] Care Team Providers Care Board Operator Name Role Phone Ref, Has No [...] Plan (01/03/2024 2:32 PM EDT): Presents from [facility] in the setting of urinary [...] Plan (01/03/2024 10:49 AM EDT): Presented from [facility] with hyponatremia (initially 123). Also [...] Plan (01/02/2024 11:43 AM EDT): Presents from [facility] in the setting of urinary [...] Seroquel 25 mg twice daily Presents from [facility]'s forensic unit with documented history of schizophrenia. 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 Continue home aripiprazole 20mg daily Continue home carbamazepine 500 mg twice daily Continue home Zyprexa 15 mg nightly Continue home Seroquel 25 mg twice daily Consider psychiatry consult if concern that antipsychotic medications are causing SIADH Patient presents from [facility], requires constant observation BPH (benign prostatic hyperplasia) 12/30/2023 Assessment & Plan (01/03/2024 2:33 PM EDT): Paperwork from the [facility] indicates history of BPH with prior need for intermittent catheterization requiring urology evaluation in the past, records not available in our system). Per documentation from [facility] patient has seen urology at [facility] in [place]. He was started on Flomax outpatient. [...] AM EDT): Paperwork from the [facility] indicates history of BPH with prior need for intermittent catheterization requiring urology evaluation in the past, records not available in our system). Per documentation from [facility] patient has seen urology at [facility] in [place]. He was started on Flomax outpatient. [...] history exists Tobacco Screening 06/05/2042 01/29/2024 Insurance [facility] MEDICARE [facility] Advance Directives * Full Code (Latest Code Status on File) Date Activated Date Inactivated Comments 12/30/2023 7:22 PM 01/03/2024 8:48 PM * Presumed Full Code Date Activated Date Inactivated Comments 12/30/2023 7:00 PM 12/30/2023 7:22 PM Care Teams Board Operator Relationship Specialty Start Date End Date Ref, Has No Pcp Or DO NOT EDIT THIS RECORD VIA PROVIDER ON THE FLY PCP - General Judicial Administrative Assistant 12/30/23
--- OUTSIDE RECORDS SUMMARY | 2025-04-12 16:38 | XMS_ITS | Clinical Summary ---
Author Organization [facility] Address [address] [place] [address] Phone Care Team Providers Care Senior Mechanical Estimator Name Role Phone Dk Rodriguez MD Primary Care Provider [phone]- [phone] Allergies No known active allergies Medications No known medications Encounters Date Type Department Care Team Description 04/10/2025 8:45 PM EST - 04/10/2025 10:25 PM EST [facility] Emergency [address] [place] [phone] Discharge Disposition: Home or Self Care 03/30/2025 9:37 PM EDT - 03/30/2025 11:09 PM EDT [facility] Emergency [address] [place] [phone] Discharge Disposition: Left Against Medical Advice 03/06/2025 9:24 PM EDT - 03/06/2025 9:57 PM EDT Emergency [facility] Emergency [address] [place] [phone] Discharge Disposition: Home or Self Care 02/15/2025 9:21 PM EDT - 02/15/2025 9:45 PM EDT [facility] Emergency [address] [place] [phone] Encounter for Santos catheter removal (Primary Dx) Discharge Disposition: Home or Self Care 02/14/2025 8:31 PM EDT - 02/14/2025 9:27 PM EDT [facility] Emergency [address] [place] [phone] Urinary retention (Primary Dx) Discharge Disposition: Home or Self Care 02/10/2025 9:24 PM EDT - 02/10/2025 11:43 PM EDT [facility] Emergency [address] [place] [phone] Discharge Disposition: Home or Self Care 02/01/2025 8:58 PM EDT - 02/01/2025 10:49 PM EDT [facility] Emergency [address] [place] [phone] Discharge Disposition: Home or Self Care 01/30/2025 8:57 PM EDT - 01/31/2025 12:33 AM EDT [facility] Emergency [address] [place] [phone] Discharge Disposition: Home or Self Care 01/28/2025 9:14 PM EDT - 01/28/2025 11:28 PM EDT [facility] Emergency [address] [place] [phone] Discharge Disposition: Home or Self Care 01/14/2025 8:53 PM EDT - 01/15/2025 12:26 AM EDT [facility] Emergency [address] [place] [phone] Discharge Disposition: Home or Self Care 01/12/2025 8:45 PM EDT - 01/12/2025 11:57 PM EDT [facility] Emergency [address] [place] [phone] Dilcia Carl MD Discharge Disposition: Left Against Medical Advice from Last 3 Months Medical History Medical History Date Comments Bipolar 1 disorder (CMS/[facility] V24, CMS/[facility] V28) Mood disorder ([facility] V24) Hyperactivity of bladder Social [...] Mass Index 20.67 04/10/2025 8:51 PM EST Plan of Treatment Health Maintenance [...] age to complete this topic Insurance [address] [facility] [place] [id number] MEDICARE MEDICAID - [place] Care Teams Senior Mechanical Estimator Relationship Specialty Start Date End Date Dk Rodriguez MD [address] [place] [address] [address] [place] PCP - General Internal Medicine 07/16/24
[2025-04-12 17:21] VITALS: BP 114/65; PULSE 82; RESP 18; TEMP 36.3; O2SAT 96
== END 2025-04-12 17:21 | disposition home or self-care (01) ==
PROVIDERS: Emergency Provider Emergency Medicine Emergency Medical Services; PCP Internal Medicine
DX: F41.9 Anxiety disorder, unspecified (principal)
CPT/HCPCS: 99282

== ENCOUNTER 2025-04-14 23:12 | Emergency (ER) | payer MEDICARE, MEDICAID, SELFPAY ==
--- OUTSIDE RECORDS SUMMARY | 2025-04-10 20:45 | XMS_ITS | Encounter Summary ---
Author Organization [facility] Address [address] [place] [address] Care Team Providers Care Commodities Manager Name Role Phone Dk Rodriguez MD Primary Care Provider + [phone] Reason for Visit * Reason Comments Difficulty Urinating CATHETER REMOVED ON E MONTH AGO. Encounter Details Date Type Department Care Team (Late st Contact Info) Description 04/10/2025 8:45 PM EST - 04/10/2025 10:25 PM EST Emergency [facility] Emergency [address] [place] [phone] Discharge Disposition: Home or Self Care Social [...] Sign Reading Time Taken Comments Blood Pressure 125/79 04/10/2025 8:51 PM EST Pulse 80 04/10/2025 8:51 PM EST Temperature 36.7 C (98 F) 04/10/2025 8:51 PM EST Respiratory Rate 20 04/10/2025 8:51 PM EST Oxygen Saturation 98% 04/10/2025 8:51 PM EST Inhaled Oxygen Concentration - - Weight 63.5 kg (140 lb) 04/10/2025 8:51 PM EST Height 175.3 cm (5' 9 ) 04/10/2025 8:51 PM EST Body Mass Index 20.67 04/10/2025 8:51 PM EST documented in this encounter Functional Status * [...] 11/24/2024 1:09 AM Taye Gerard RN * Calculated C-SSRS Risk Score (Lifetime/Recent) Answer Date of Assessment Author No Risk Indicated 04/10/2025 8:55 PM Anna Sanchez RN * [place] Suicide Severity Rating Scale (Screener/Recent Self-Report) Question Answer Date of Assessment Author 1. Wish to be (Past 1 Month) No 025 8:55 PM Anna Sanchez RN 2. Non-Specific Active Suici fritz Thoughts (Past 1 Month) No 04/10/2025 8:55 PM Jacqueline Sanchez RN 6. Suicidal Behavior (Lifetime) No 8:55 PM Anna Sanchez RN documented as of this encounter Mental [...] documented in this encounter Progress Notes * Anna Kim RN - 04/10/2025 8:52 PM EST PT C/O WEAKNESS, AGITATION AND DYSURIA FOR THE LAST 3 DAYS. PT STATES HE'S FELT LIKE THIS SINCE [place] [facility]. PT STATES BLADDER PAIN- NORMAL URINE OUTPUT. documented in this encounter Plan of Treatment Not on file documented as of this encounter Visit Diagnoses Not on filedocumented in this encounter Care Teams Commodities Manager Relationship Specialty Start Date End Date Dk Rodriguez MD [address] [place] [address] Dr [address] [place], [place] PCP - General Internal Medicine 07/16/24 documented as of this encounter
[2025-04-14 23:13] VITALS: BP 119/73; PULSE 85; RESP 16; TEMP 36.1; O2SAT 99; BMI 21.7
--- OUTSIDE RECORDS SUMMARY | 2025-04-14 23:26 | XMS_ITS | Clinical Summary ---
Author Organization [facility] Address [address] [place] [address] Care Team Providers Care Association Executive Name Role Phone Ref, Has No Pcp [...] Plan (01/03/2024 10:49 AM EDT): Presented from [facility] with hyponatremia (initially 123). Also had [...] Seroquel 25 mg twice daily Presents from [facility]'s forensic unit with documented history of schizophrenia. Continue home aripiprazole 20mg daily Continue home carbamazepine 500 mg twice daily Continue home Zyprexa 15 mg nightly Continue home Seroquel 25 mg twice daily Consider psychiatry consult if concern that antipsychotic medications are causing SIADH Patient presents from [facility], requires constant observation Assessment & Plan (01/02/2024 11:43 AM EDT): Home medications: aripiprazole 20 mg daily, carbamazepine 500 mg twice daily, Zyprexa 15 mg nightly, Seroquel 25 mg twice daily Presents from [facility]'s forensic unit with documented history of schizophrenia. Continue home aripiprazole 20mg daily Continue home carbamazepine 500 mg twice daily Continue home Zyprexa 15 mg nightly Continue home Seroquel 25 mg twice daily Consider psychiatry consult if concern that antipsychotic medications are causing SIADH Patient presents from [facility], requires constant observation BPH (benign prostatic hyperplasia) 12/30/2023 Assessment & Plan (01/03/2024 2:33 PM EDT): Paperwork from the [facility] indicates history of BPH with prior need for intermittent catheterization requiring urology evaluation in the past, records not available in our system). Per documentation from [facility] patient has seen urology at [facility] in [place]. He was started on Flomax outpatient. [...] (01/02/2024 11:43 AM EDT): Paperwork from the [facility] indicates history of BPH with prior need for intermittent catheterization requiring urology evaluation in the past, records not available in our system). Per documentation from [facility] patient has seen urology at [facility] in [place]. He was started on Flomax outpatient. [...] history exists Tobacco Screening 06/05/2042 01/29/2024 Insurance [facility] MEDICARE [facility] Advance Directives * Full Code (Latest Code Status on File) Date Activated Date Inactivated Comments 12/30/2023 7:22 PM 01/03/2024 8:48 PM * Presumed Full Code Date Activated Date Inactivated Comments 12/30/2023 7:00 PM 12/30/2023 7:22 PM Care Teams Association Executive Relationship Specialty Start Date End Date Ref, Has No Pcp Or DO NOT EDIT THIS RECORD VIA PROVIDER ON THE FLY PCP - General Activity Therapy Teacher 12/30/23
--- OUTSIDE RECORDS SUMMARY | 2025-04-14 23:26 | XMS_ITS | Encounter Summary ---
Author Organization [facility] Address [address] [place] [address] Care Team Providers Care Concrete Finisher Name Role Phone Ref, Has No Pcp Or Primary Care Provider Unavail able Encounter Details Date Type Department Care Team (Late st Contact Info) Description 01/04/2024 Community Orders [facility] EpicCare Link [address] [place] [address] Bethany Lozano, DRIVER EDUCATION INSTRUCTOR [address] [place] [address] Social History Tobacco Use Types Packs/Day Years [...] on filedocumented in this encounter Care Teams Concrete Finisher Relationship Specialty Start Date End Date Ref, Has No Pcp Or DO NOT EDIT THIS RECORD VIA PROVIDER ON THE FLY PCP - General Video Recorder Mechanic 12/30/23 documented as of this encounter
--- OUTSIDE RECORDS SUMMARY | 2025-04-14 23:26 | XMS_ITS | Clinical Summary ---
Author Organization [facility] Address [address] [place] [address] Phone Care Team Providers Care Buffet Attendant Name Role Phone Dk Rodriguez MD Primary Care Provider [phone]- [phone] Allergies No known active allergies Medications No known medications Encounters Date Type Department Care Team Description 04/10/2025 8:45 PM EST - 04/10/2025 10:25 PM EST [facility] [address] [place] [phone] Discharge Disposition: Home or Self Care 03/30/2025 9:37 PM EDT - 03/30/2025 11:09 PM EDT [facility] [address] [place] [phone] Discharge Disposition: Left Against Medical Advice 03/06/2025 9:24 PM EDT - 03/06/2025 9:57 PM EDT Emergency [facility] Emergency [address] [place] [phone] Discharge Disposition: Home or Self Care 02/15/2025 9:21 PM EDT - 02/15/2025 9:45 PM EDT [facility] [address] [place] [phone] Encounter for Santos catheter removal (Primary Dx) Discharge Disposition: Home or Self Care 02/14/2025 8:31 PM EDT - 02/14/2025 9:27 PM EDT [facility] [address] [place] [phone] Urinary retention (Primary Dx) Discharge Disposition: Home or Self Care 02/10/2025 9:24 PM EDT - 02/10/2025 11:43 PM EDT [facility] [address] [place] [phone] Discharge Disposition: Home or Self Care 02/01/2025 8:58 PM EDT - 02/01/2025 10:49 PM EDT [facility] [address] [place] [phone] Discharge Disposition: Home or Self Care 01/30/2025 8:57 PM EDT - 01/31/2025 12:33 AM EDT [facility] [address] [place] [phone] Discharge Disposition: Home or Self Care 01/28/2025 9:14 PM EDT - 01/28/2025 11:28 PM EDT [facility] [address] [place] [phone] Discharge Disposition: Home or Self Care 01/14/2025 8:53 PM EDT - 01/15/2025 12:26 AM EDT [facility] [address] [place] [phone] Discharge Disposition: Home or Self Care 01/12/2025 8:45 PM EDT - 01/12/2025 11:57 PM EDT [facility] [address] [place] [phone] Dilcia Carl MD Discharge Disposition: Left Against Medical Advice from Last 3 Months Medical History Medical History Date Comments Bipolar 1 disorder (CMS/[facility] V24, CMS/[facility] V28) Mood disorder ([facility] V24) Hyperactivity of [...] to complete this topic Insurance [address] [facility] [place] [id number] MEDICARE MEDICAID - [place] Care Teams Buffet Attendant Relationship Specialty Start Date End Date Dk Rodriguez MD [address] [place] [address] Dr [address] [place] PCP - General Internal Medicine 07/16/24
[2025-04-14 23:56] VITALS: BP 119/70; PULSE 89; RESP 16; TEMP 36.4; O2SAT 99
[2025-04-15 00:14] LABS: Hematocrit 41.6 % (42.0-52.0); Hemoglobin 14.0 g/dl (14.0-18.0); Imm Gran Abs Auto 0.02 X10*3/uL (0.00-0.03); Imm Gran Pct Auto 0.4 % (0.0-0.4); Lymphocytes Absolute Auto 2.3 X10*3/uL (1.2-4.9); MANUAL DIFF FLAG SCAN; Mean Corpuscular HGB Conc 33.7 g/dl (31.0-36.0); Mean Corpuscular Hemoglobin 32.0 pg (27.0-33.0); Mean Corpuscular Volume 95.0 fL (80.0-98.0); NRBC Abs Auto 0.000 X10*3/uL (0.0-0.012); NRBC Pct Auto 0.0 /100WBC (0.0-0.2); PLT CLUMP 1; Red Blood Count 4.38 X10*6/uL (4.60-5.80); SCAN SMEAR FLAG 1
[2025-04-15 00:22] LABS: Cannabinoid Screen Urine Not Detected (Not Detect)
[2025-04-15 00:34] LABS: Platelet Count 108 X10*3/uL (160-400); White Blood Count 5.6 X10*3/uL (4.8-10.8)
[2025-04-15 00:35] LABS: Acetaminophen LAB < 3 mcg/mL (<30); Alanine Aminotransferase 13 U/L (0-40); Albumin Level 4.2 g/dL (3.5-5.0); Alkaline Phosphatase 65 U/L (39-117); Anion Gap 12 (12-20); Aspartate Amino Transferase 27 U/L (5-37); Blood Urea Nitrogen 16 mg/dL (9-16); Calcium 8.9 mg/dL (8.4-10.2); Carbon Dioxide 27 mmol/L (22-29); Chloride 101 mmol/L (96-108); Creatinine Clr Calc Pharmacy 78.3; Estimated Glomerular Filt Rate > 60; Magnesium 1.9 mg/dL (1.6-2.6); Potassium 4.3 mmol/L (3.3-5.1); Salicylate < 5.0 mg/dL (15-30); Sodium 136 mmol/L (135-145); Total Protein 6.7 g/dL (6.5-8.0)
--- NOTE | 2025-04-15 01:00 | PC.NURSE ---
pt declined assessment by DAMARI Santos at this time stating that he is sleeping.
--- NOTE | 2025-04-15 01:01 | PC.NURSE ---
declining home meds from list reporting that they make me hallucinate. declines to elaborate on which med he suspects may be causing this, when prompted further patient states he does not want to talk about it right now. denies non-prescribed substance use, command hallucinations. does not appear intoxicated. states needs are met at this time, in bed supine/left lateral, eyes closed, no signs of distress, breathing is regular and non labored. camera on
--- NOTE | 2025-04-15 02:17 | ED_ITS ---
HPI - General Adult General Chief complaint: Psychiatric Symptoms Stated complaint: seeing stuff Time Seen by Provider: 04/14/25 23:23 Source: patient Limitations: other (Psychiatric illness) History of Present Illness ED Provider: Samantha Santos PA-C HPI narrative: 59-year-old male with a history of schizoaffective disorder, bipolar type, anxiety, mood disorder, BPH who require self catheterization, presents with multiple complaints. Patient continually complains of dissatisfaction with the his jail and living arrangement. Tonight, patient states he developed visual hallucinations while watching TV, he reports that he saw ?people holding baseball bats and shadows?. Denies SI or HI. Denies that he has been not adherent with the his medications. Related Data Home Medications ?Medication ?Instructions ?Recorded ?Confirmed aripiprazole 30 mg tablet 30 mg PO DAILY 01/31/2504/05 lorazepam 1 mg tablet 1 mg PO DAILY PRN Anxiety 04/14/25 quetiapine 100 mg tablet 100 mg PO BEDTIME 01/31/25 1 06/14/24 quetiapine 50 mg tablet 50 mg PO BID 01/31/25 olanzapine 10 mg tablet 10 mg PO TID 02/03/25 Previous Rx's ?Medication ?Instructions ?Recorded atorvastatin 20 mg tablet 20 mg PO QPM 90 days #90 tab s 01/10/25 tamsulosin 0.4 mg capsule 0.4 mg PO QAM 90 days #90 ca ps 01/10/25 cefuroxime axetil 500 mg tablet 500 mg PO BID 7 days # 14 tabs 03/10/25 Allergies Allergy/AdvReac Type Severity Reaction Status Date / Time No Known Allergies (NO KNOWN Allergy Unknown UNKNOWN Verified 04/14/25 23:19 ALLERGIES) Review of Systems 2 Review of Systems: Yes all other systems are reviewed and are negative Constitutional: Constitutional: Denies fatigue and Denies fever(s) Cardiovascular: Cardiovascular: Denies chest pain and Denies dyspnea Respiratory: Respiratory: Denies dyspnea Gastrointestinal: Gastrointestinal: Denies abdominal pain, Denies nausea and Denies vomiting Endocrine: Endocrine: Denies fatigue PMFSH Past Medical History Attestation statement: The following information was validated with the patient. Medical History Acute anxiety Smoker GERD without esophagitis Tubular adenoma of colon (~2018) Personal history of nicotine dependence Constipation Back pain Schizoaffective disorder, bipolar type Anxiety Benign prostatic hyperplasia with lower urinary tract symptoms Pure hypercholesterolemia Thought disorder Bipolar 1 disorder Mood disorder Surgical History History of colonoscopy (~04/2019) History of prostate surgery (~04/2019) History of open reduction and internal fixation (ORIF) procedure (~08/2018) Family History Family History Father Lung cancer BPH (benign prostatic hyperplasia) Mother Dementia Brother Myocardial infarction Other Mental health problem Substance abuse Social History Social History Household Members: Other Housing: Other Housing Other:: [facility] Do you presently have visiting nurse or other home services: No Alcohol intake: never Patient Tobacco Use Status: Current everyday Tobacco user Tobacco use type: Cigarette Cigarette Packs Per Day: 0.5 Cigarettes Per Day: 10.0 Years Smoked: 10 Smoked in Last 30 Days: No e-Cigarette/Vaping Use: Never Used Second Hand Smoke Exposure: Yes Use of substances other than those prescribed or required for medical reasons: No Advance Directives: No Advance Directives Information Provided: Yes Do you have a plan to hurt others: No Plan service: No Current occupational status: employed and disabled Current occupation: [employer] Sexual orientation: Straight/Heterosexual Cognitive needs: No Hearing needs: No Vision needs: Yes Physical Exam ED Vital Signs: Vital Signs - 24 hr 04/15/25 07:59 Temperature 97.5 F Pulse Rate 89 Respiratory Rate 16 Blood Pressure 119/70 Pulse Oximetry 99 BMI result Body Mass Index 21.7 Const Other: Alert, appears older than stated age Orientation/consciousness: patient oriented x3 Resp Effort & Inspection: normal respiratory effort Cardio Other: Normal peripheral perfusion Skin Other: Warm dry no rash Neuro General: patient oriented x3, gait normal, no focal motor deficits and CN's II- XI intact bilaterally Psych Other: Somewhat belligerent Course Reevaluation(s) Reevaluation #1: Time: 03:53 Date: 04/15/25 Provider: DAMARI Almonte Patient in physician observation for psychiatric evaluation.? No acute events reported overnight. No current complaints. VS stable.? Patient is in bed search status/pending CARE team evaluation. Will continue to monitor. Reevaluation #2: CARE team evaluated patient. He is not a risk to himself or others. He will be discharged back to his jail. Patient himself is very comfortable with this plan. Plan: Discharge to home Condition: Stable Medications Administered Discontinued Medications Generic Name Dose Route Start Last Admin Trade Name Lillian PRN Reason Stop Dose Admin Olanzapine 10 mg 04/15/25 00:30 04/15/25 00:39 Olanzapine 10 Mg Tablet PO Not Given TID RENAE Quetiapine Fumarate 100 mg 04/15/25 00:30 04/15/25 00:39 Quetiapine Fumarate 100 Mg Tablet PO Not Given BEDTIME RENAE Quetiapine Fumarate 50 mg 04/15/25 00:30 04/15/25 00:39 Quetiapine Fumarate 50 Mg Tablet PO Not Given BID RENAE Medical Decision Making Medical Decision Making [facility] Narrative: 59-year-old male with a history of schizoaffective disorder, bipolar type, anxiety, mood disorder, BPH who require self catheterization, presents with multiple complaints. Patient continually complains of dissatisfaction with the his jail and living arrangement. Tonight, patient states he developed visual hallucinations while watching TV, he reports that he saw ?people holding baseball bats and shadows?. Denies SI or HI. Denies that he has been not adherent with the his medications. Problem: Psychiatric illness History: Per patient I have considered the following differential diagnoses: SI, HI, decompensated psychiatric illness, drug/alcohol intoxication Plan: Patient is here with a complaint of visual hallucinations, he typically does not present in this manner, there was concern for decompensated psychiatric illness. We will obtain screening labs, ethanol and drug screen, he will be referred to the care team. [address] have independently reviewed the following tests: Labs: No leukocytosis, not anemic, no electrolyte abnormality, ethanol negative, drug screen negative Differential Diagnosis Differential Diagnoses: The differential diagnosis associated with the presentation includes See medical decision-making Admission/Observation Consideration of admission/observation: Escalation of care including admission/observation considered Consult Healthcare Provider Management of the patient was discussed with: Behavioral Health Provider Care team Lab Data [facility] Lab Attestation statement: I reviewed the patient's lab results. 04/15/25 00:04 04/15/25 00:04 Labs: Lab Results 04/15/25 Range/Units 00:04 WBC 5.6 (4.8-10.8) X10*3/uL RBC 4.38 L (4.60-5.80) X10*6/uL Hgb 14.0 (14.0-18.0) g/dl Hct 41.6 L (42.0-52.0) % MCV 95.0 (80.0-98.0) fL MCH 32.0 (27.0-33.0) pg MCHC 33.7 (31.0-36.0) g/dl RDW 13.8 (11.0-16.0) % Plt Count 108 L (160-400) X10*3/uL MPV 11.9 (9.4-12.4) fL Immature Gran % (Auto) 0.4 (0.0-0.4) % Neut % (Auto) 43.4 L (45-73) % Lymph % (Auto) 41.7 H (20-40) % Howell % (Auto) 11.3 H (2-11) % Eos % (Auto) 2.3 (0-4) % Baso % (Auto) 0.9 (0-2) % Lymph # (Auto) 2.3 (1.2-4.9) X10*3/uL Howell # (Auto) 0.6 (0.1-1.2) X10*3/uL Eos # (Auto) 0.1 (0.0-0.4) X10*3/uL Baso # (Auto) 0.1 (0.0-0.2) X10*3/uL Abs Immat Gran (auto) 0.02 (0.00-0.03) X10*3/uL Absolute Neuts (auto) 2.4 (2.0-8.3) x10*3/uL Absolute Nucleated RBC 0.000 (0.0-0.012) X10*3/uL Nucleated RBC % (auto) 0.0 (0.0-0.2) /100WBC Smear Tech's Comments VERIFIED Sodium 136 (135-145) mmol/L Potassium 4.3 (3.3-5.1) mmol/L Chloride 101 (96-108) mmol/L Carbon Dioxide 27 (22-29) mmol/L Anion Gap 12 (12-20) BUN 16 (9-16) mg/dL Creatinine 0.93 (0.5-1.4) mg/dL Estim Creat Clear Calc 78.3 Estimated GFR > 60 Random Glucose 71 (60-115) mg/dL Calcium 8.9 (8.4-10.2) mg/dL Magnesium 1.9 (1.6-2.6) mg/dL Total Bilirubin 0.3 (0.0-1.0) mg/dL AST 27 (5-37) U/L ALT 13 (0-40) U/L Alkaline Phosphatase 65 (39-117) U/L Total Protein 6.7 (6.5-8.0) g/dL Albumin 4.2 (3.5-5.0) g/dL Salicylates < 5.0 L (15-30) mg/dL Urine Opiates Screen Not Detected (Not Detect) Ur Buprenorphine Scrn Not Detected (Not Detect) ng/mL Ur Oxycodone Screen Not Detected (Not Detect) ng/mL Urine Methadone Screen Not Detected (Not Detect) ng/mL Urine Fentanyl Screen Not Detected (Not Detect) Acetaminophen < 3 (<30) mcg/mL Ur Barbiturates Screen Not Detected (Not Detect) Ur Phencyclidine Scrn Not Detected (Not Detect) Ur Amphetamines Screen Not Detected (Not Detect) U Benzodiazepines Scrn Not Detected (Not Detect) Urine Cocaine Screen Not Detected (Not Detect) U Marijuana (THC) Screen Not Detected (Not Detect) Ethyl Alcohol < 10 mg/dL Discharge Plan Discharge Clinical Impression: Hallucination, visual Patient Disposition: Home, Self-Care Instructions: Hallucinations (ED) Prescriptions: No Action quetiapine 100 mg tablet 100 mg PO BEDTIME lorazepam 1 mg tablet 1 mg PO DAILY PRN (Reason: Anxiety) aripiprazole 30 mg tablet 30 mg PO DAILY quetiapine 50 mg tablet 50 mg PO BID olanzapine 10 mg tablet 10 mg PO TID cefuroxime axetil 500 mg tablet 500 mg PO BID 7 Days Qty: 14 0RF tamsulosin 0.4 mg capsule 0.4 mg PO QAM 90 Days Qty: 90 0RF atorvastatin 20 mg tablet 20 mg PO QPM 90 Days Qty: 90 3RF Interventions: [place]-Suicide Risk Severity Scale Last Done: 04/15/25 00:02 ED Discharge Assessment Last Done: 04/15/25 07:59 Discharge Date/Time: 04/15/25 08:22 Print Language: [place]
--- NOTE | 2025-04-15 07:26 | PC.NURSE ---
Assumed care, report received. Pt is awake and eating his breakfast. Pt is calm and cooperative.
--- NOTE | 2025-04-15 07:47 | MHC.CARE ---
Pt does not present as an imminent risk or meet the criteria for a higher level of care. Pt reports he is medication adherent despite prior documentation and denies SI, HI, and A/V/H. Pt appears to be at baseline and is advocating to discharge to [facility] which is his day program. ED provider in agreement with disposition.
[2025-04-15 07:59] VITALS: BP 119/70; PULSE 89; RESP 16; TEMP 36.4; O2SAT 99
== END 2025-04-15 08:22 | disposition home or self-care (01) ==
PROVIDERS: Physician Assistant Medical; Emergency Provider Emergency Medicine; PCP Internal Medicine
DX: R44.1 Visual hallucinations (principal); Z72.0 Tobacco use; Z91.148 Patient's other noncompliance with medication regimen for other reason
CPT/HCPCS: 36415; 80053; 80143; 80179; 80307; 83735; 85025; 99285; S9485

== ENCOUNTER 2025-04-18 12:40 | Emergency (ER) | payer MEDICARE, MEDICAID, SELFPAY ==
[2025-04-18 12:46] VITALS: BP 119/55; PULSE 88; RESP 18; TEMP 36.5; O2SAT 96; BMI 21.0
--- NOTE | 2025-04-18 12:48 | ECG_ITS ---
Test Reason : palpitations Blood Pressure : */* mmHG Vent. Rate : 78 BPM Atrial Rate : 78 BPM P-R Int : 130 ms QRS Dur : 78 ms QT Int : 358 ms P-R-T Axes : 69 0 29 degrees QTcB Int : 408 ms Normal sinus rhythm Normal ECG When compared with ECG of 06-Apr-2025 14:45, No significant change was found Referred By: Cyndi Crawford Electronically Signed By: RACHEAL VILLAFANA MD
--- NOTE | 2025-04-18 12:48 | ED.GENADULT ---
HPI - General Adult General Chief complaint: General Medical Stated complaint: not feeling good Time Seen by Provider: 04/18/25 12:46 Source: patient, RN notes reviewed and old records reviewed Mode of arrival: ambulatory History of Present Illness ED Provider: Yvette MCKAY narrative: Patient is a 59-year-old male with history of smoking, GERD, schizoaffective disorder, bipolar type, BPH presenting to the emergency department complaining of anxiety and palpitations while at his day program. Repeatedly stating ?I just do not feel good, my director told me to take a PRN for my anxiety. Denies chest pain, shortness of breath, nausea or vomiting, recent fevers. He denies any suicidal or homicidal ideation. MD complaint: palpitations Related Data Home Medications ?Medication ?Instructions ?Recorded ?Confirmed aripiprazole 30 mg tablet 30 mg PO DAILY 01/31/25 04/14/25 lorazepam 1 mg tablet 1 mg PO DAILY PRN Anxiety 01/31/25 04/14/25 quetiapine 100 mg tablet 100 mg PO BEDTIME 01/31/25 04/14/25 quetiapine 50 mg tablet 50 mg PO BID 01/31/25 04/14/25 olanzapine 10 mg tablet 10 mg PO TID 02/03/25 04/14/25 Previous Rx's ?Medication ?Instructions ?Recorded atorvastatin 20 mg tablet 20 mg PO QPM 90 days #90 tabs 01/10/25 tamsulosin 0.4 mg capsule 0.4 mg PO QAM 90 days #90 caps 01/10/25 cefuroxime axetil 500 mg tablet 500 mg PO BID 7 days #14 tabs 03/10/25 Allergies Allergy/AdvReac Type Severity Reaction Status Date / Time No Known Allergies (NO KNOWN Allergy Unknown UNKNOWN Verified 04/18/25 12:47 ALLERGIES) Review of Systems Review of Systems: As per HPI Yes all other systems are reviewed and are negative Constitutional: Constitutional: Reports as per HPI PMF Past Medical History Medical History Acute anxiety Smoker GERD without esophagitis Tubular adenoma of colon (~2018) Personal history of nicotine dependence Constipation Back pain Schizoaffective disorder, bipolar type Anxiety Benign prostatic hyperplasia with lower urinary tract symptoms Pure hypercholesterolemia Thought disorder Bipolar 1 disorder Mood disorder Surgical History History of colonoscopy (~04/2019) History of prostate surgery (~04/2019) History of open reduction and internal fixation (ORIF) procedure (~08/2018) Family History Family History Father Lung cancer BPH (benign prostatic hyperplasia) Mother Dementia Brother Myocardial infarction Other Mental health problem Substance abuse Social History Social History Household Members: Other Housing: Other Housing Other:: Nursing Home Do you presently have visiting nurse or other home services: No Alcohol intake: never Patient Tobacco Use Status: Current everyday Tobacco user Tobacco use type: Cigarette Cigarette Packs Per Day: 0.5 Cigarettes Per Day: 10.0 Years Smoked: 10 e-Cigarette/Vaping Use: Never Used Second Hand Smoke Exposure: Yes Advance Directives: No Advance Directives Information Provided: No Do you have a plan to hurt others: No Plan service: No Current occupational status: employed and disabled Current occupation: [employer] Sexual orientation: Straight/Heterosexual Cognitive needs: No Hearing needs: No Vision needs: Yes Physical Exam ED Vital Signs: Vital Signs - 24 hr 04/18/25 12:46 04/18/25 14:02 Temperature 97.7 F 97.7 F Pulse Rate 88 88 Respiratory Rate 18 18 Blood Pressure 119/55 L 119/55 L Pulse Oximetry 96 96 Oxygen Delivery Method Room Air Room Air BMI result Body Mass Index 21.0 Vital signs have been reviewed and appear to be correct. Blood pressure normal. Heart rate normal. Respiratory rate normal. Temperature normal. Oxygen saturation normal. Const General: cooperative, healthy appearing and no acute distress Orientation/consciousness: oriented to person, oriented to place, oriented to time and patient oriented x3 Limitations: no limitations HENMT Head: Yes normocephalic and Yes atraumatic Ears: external ears normal General nose exam: Normal external nose present Face and sinus: Yes face symmetric Mouth: oropharynx normal and moist mucous membranes Throat: Yes uvula midline Eyes Pupils: Equal, round and reactive pupils present Neck Neck: Yes normal visual inspection and Yes supple Resp Effort & Inspection: normal respiratory effort and able to speak in complete sentences Auscultation: clear to auscultation bilaterally Cardio Rate: regular rate Rhythm: regular rhythm Heart sounds: S1 normal heart sound present and S2 normal heart sound present GI Palpation (GI): Soft to palpation and nontender Auscultation: normoactive bowel sounds General: Yes no CVA tenderness Back/Spine/Pelvis Back: no CVA tenderness Skin General skin exam: elasticity normal and turgor normal Neuro General: oriented to person, oriented to place, oriented to time, patient oriented x3, moves all extremities, no focal motor deficits and CN's II-XI intact bilaterally Cranial nerves: Yes Equal, round and reactive pupils present Cognition (Neuro): normal cognition Extrem General: Yes full ROM, Yes no pedal edema and Yes no calf tenderness Psych Mental Status: mental status grossly normal Affect: Anxious affect present Thought process: Normal thought process present Medical Decision Making Medical Decision Making [facility] Narrative: Patient is a 59-year-old male with history of smoking, GERD, schizoaffective disorder, bipolar type, BPH presenting to the emergency department complaining of anxiety and palpitations while at his day program. On exam patient is awake, A+Ox3, VS WNL, afebrile, normal neurological exam without focal deficits, physical exam findings as above. Given reported symptoms and physical exam findings, initial differential includes but is not limited to anxiety, cardiac arrhythmia. Patient frequently presents to this department with similar complaints. EKG shows normal sinus rhythm, no changes from prior. Patient was offered medication for anxiety which he declined. Patient then reported that his symptoms had improved while waiting in the ED and requested discharge. Advised patient to follow up with PCP/therapist as needed. Return precautions discussed. Patient verbalized understanding of and agreement with plan. Differential Diagnosis Differential Diagnoses: The differential diagnosis associated with the presentation includes as per mdm Admission/Observation Consideration of admission/observation: Escalation of care including admission/observation considered Patient would have been admitted to the hospital and transferred to appropriate facility had their clinical presentation warranted hospital admission. Independent Interpretation I performed an independent interpretation of an: EKG (normal sinus rhythm, rate 78bpm, normal pr interval and qtc) External Record Review External record reviewed: Inpatient record, Office record and Outpatient record Discharge Plan Discharge Clinical Impression: Heart palpitations, Anxiety Patient Disposition: Home, Self-Care Instructions: Heart Palpitations (DC), Anxiety (ED) Additional Instructions: You were seen in our Emergency Department today for treatment of a behavioral health issue. It is important after your visit that you follow up with either your behavioral health provider or a primary care doctor within 7 days.? If you have trouble finding a therapist you can reach out to [address] [phone] The National Suicide and Crisis Lifeline can be reached 7 days a week 24 hours a day.? Call 988 to speak with someone.? Return for any worsening symptoms or concerns such as thoughts of self harm or harm to others. Please call 911 if you feel your mental health is worsening.? Prescriptions: No Action quetiapine 100 mg tablet 100 mg PO BEDTIME lorazepam 1 mg tablet 1 mg PO DAILY PRN (Reason: Anxiety) aripiprazole 30 mg tablet 30 mg PO DAILY quetiapine 50 mg tablet 50 mg PO BID olanzapine 10 mg tablet 10 mg PO TID cefuroxime axetil 500 mg tablet 500 mg PO BID 7 Days Qty: 14 0RF tamsulosin 0.4 mg capsule 0.4 mg PO QAM 90 Days Qty: 90 0RF atorvastatin 20 mg tablet 20 mg PO QPM 90 Days Qty: 90 3RF Interventions: ED Discharge Assessment Last Done: 04/18/25 14:02 Discharge Date/Time: 04/18/25 14:03 Print Language: Tanzanian
[2025-04-18 14:02] VITALS: BP 119/55; PULSE 88; RESP 18; TEMP 36.5; O2SAT 96
--- OUTSIDE RECORDS SUMMARY | 2025-04-18 18:47 | XMS_ITS | Encounter Summary ---
Author Organization [facility] Address [address] [place] [address] Care Team Providers Care Rn Case Manager Name Role Phone Ref, Has No Pcp Or Primary Care Provider Unavail able Encounter Details Date Type Department Care Team (Late st Contact Info) Description 01/04/2024 Community Orders [facility] EpicCare Link [address] [place] [address] Bethany Lozano, PRINT INSPECTOR [address] [place] [address] Social History Tobacco Use Types Packs/Day Years [...] on filedocumented in this encounter Care Teams Rn Case Manager Relationship Specialty Start Date End Date Ref, Has No Pcp Or DO NOT EDIT THIS RECORD VIA PROVIDER ON THE FLY PCP - General Contract Law Specialist 12/30/23 documented as of this encounter
--- OUTSIDE RECORDS SUMMARY | 2025-04-18 18:47 | XMS_ITS | Clinical Summary ---
Author Organization [facility] Address [address] [place] [address] Phone Care Team Providers Care Director Of Early Childhood Education Name Role Phone Dk Rodriguez MD Primary Care Provider [phone] Allergies No known active allergies Medications No known medications Encounters Date Type Department Care Team Description 04/10/2025 8:45 PM EST - 04/10/2025 10:25 PM EST [facility] [address] [place] [phone] Discharge Disposition: Home or Self Care 03/30/2025 9:37 PM EDT - 03/30/2025 11:09 PM EDT [facility] [address] [place] [phone] Discharge Disposition: Left Against Medical Advice 03/06/2025 9:24 PM EDT - 03/06/2025 9:57 PM EDT Emergency [facility] Emergency [address] [place] [phone] Discharge Disposition: Home or Self Care 02/15/2025 9:21 PM EDT - 02/15/2025 9:45 PM EDT [facility] [address] [place] [phone] Encounter for Santos catheter removal (Primary Dx) Discharge Disposition: Home or Self Care 02/14/2025 8:31 PM EDT - 02/14/2025 9:27 PM EDT [facility] [address] [place] [phone] Urinary retention (Primary Dx) Discharge Disposition: Home or Self Care 02/10/2025 9:24 PM EDT - 02/10/2025 11:43 PM EDT Emergency [facility] Emergency [address] [place] [phone] Discharge Disposition: Home or Self Care 02/01/2025 8:58 PM EDT - 02/01/2025 10:49 PM EDT Emergency [facility] Emergency [address] [place] [phone] Discharge Disposition: Home or Self Care 01/30/2025 8:57 PM EDT - 01/31/2025 12:33 AM EDT Emergency [facility] Emergency [address] [place] [phone] Discharge Disposition: Home or Self Care 01/28/2025 9:14 PM EDT - 01/28/2025 11:28 PM EDT [facility] [address] [place] [phone] Discharge Disposition: Home or Self Care from Last 3 Months Medical History Medical History Date Comments Bipolar 1 disorder (CMS/HCC V24, CMS/HCC V28) Mood disorder (CMS/[facility] V24) Hyperactivity of bladder Social History Tobacco [...] age to complete this topic [place] [id number] [address] MEDICARE MEDICAID - [place] Care Teams Director Of Early Childhood Education Relationship Specialty Start Date End Date Dk Rodriguez MD [address] [place] [address] [address] [place], [place] PCP - General Internal Medicine 07/16/24
--- OUTSIDE RECORDS SUMMARY | 2025-04-18 18:47 | XMS_ITS | Clinical Summary ---
Author Organization [facility] Address [address] [place] [address] Care Team Providers Care Lead Cashier Name Role Phone Ref, Has No Pcp [...] Plan (01/03/2024 10:49 AM EDT): Presented from [facility] with hyponatremia (initially 123). Also had [...] Seroquel 25 mg twice daily Presents from [facility]'s forensic unit with documented history of schizophrenia. 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 Continue home aripiprazole 20mg daily Continue home carbamazepine 500 mg twice daily Continue home Zyprexa 15 mg nightly Continue home Seroquel 25 mg twice daily Consider psychiatry consult if concern that antipsychotic medications are causing SIADH Patient presents from [facility], requires constant observation BPH (benign prostatic hyperplasia) 12/30/2023 Assessment & Plan (01/03/2024 2:33 PM EDT): Paperwork from the [facility] indicates history of BPH with prior need for intermittent catheterization requiring urology evaluation in the past, records not available in our system). Per documentation from [facility] patient has seen urology at [facility] in [place]. He was started on Flomax outpatient. In [...] (01/02/2024 11:43 AM EDT): Paperwork from the [facility] indicates history of BPH with prior need for intermittent catheterization requiring urology evaluation in the past, records not available in our system). Per documentation from [facility] patient has seen urology at [facility] in [place]. He was started on Flomax outpatient. In [...] history exists Tobacco Screening 06/05/2042 01/29/2024 Insurance [facility] MEDICARE [facility] Advance Directives * Full Code (Latest Code Status on File) Date Activated Date Inactivated Comments 12/30/2023 7:22 PM 01/03/2024 8:48 PM * Presumed Full Code Date Activated Date Inactivated Comments 12/30/2023 7:00 PM 12/30/2023 7:22 PM Care Teams Lead Cashier Relationship Specialty Start Date End Date Ref, Has No Pcp Or DO NOT EDIT THIS RECORD VIA PROVIDER ON THE FLY PCP - General Executive Assistant To President 12/30/23
== END 2025-04-18 14:03 | disposition home or self-care (01) ==
PROVIDERS: Emergency Provider Emergency Medicine; PCP Internal Medicine
DX: R00.2 Palpitations (principal); F41.9 Anxiety disorder, unspecified; Z79.899 Other long term (current) drug therapy
CPT/HCPCS: 93005; 99283

== ENCOUNTER → 2025-04-18 12:48 | Outpatient (BNV) | payer MEDICARE, MEDICAID, SELFPAY | PROVIDERS: Emergency Provider Emergency Medicine; PCP Internal Medicine; Visit Provider Internal Medicine Cardiovascular Disease | DX: R00.2 Palpitations (principal) | CPT/HCPCS: 93010 ==

== ENCOUNTER 2025-04-19 15:01 | Emergency (ER) | payer MEDICARE, MEDICAID, SELFPAY ==
[2025-04-19 15:03] VITALS: BP 123/60; PULSE 86; RESP 16; TEMP 36.4; O2SAT 96; BMI 21.5
--- NOTE | 2025-04-19 15:04 | ED.GENADULT ---
HPI - General Adult General Chief complaint: General Medical Stated complaint: not feeling good or safe at the house Time Seen by Provider: 04/19/25 15:56 Source: patient Mode of arrival: ambulatory Limitations: no limitations History of Present Illness ED Provider: Henna Dodge APRN HPI narrative: Patient is a 59-year-old male with history of smoking, GERD, schizoaffective disorder, bipolar type, BPH here with complaints of palpitations for days, feels anxious. Unhappy with his alf. Recently had some medication changes. No SI/HI. No chest pain, shortness of breath, diaphoresis, leg swelling or leg pain, vomiting, diarrhea or abdominal pain. Related Data Home Medications ?Medication ?Instructions ?Recorded ?Confirmed aripiprazole 30 mg tablet 30 mg PO DAILY 01/31/25 04/14/25 lorazepam 1 mg tablet 1 mg PO DAILY PRN Anxiety 01/31/25 04/14/25 quetiapine 100 mg tablet 100 mg PO BEDTIME 01/31/25 04/14/25 quetiapine 50 mg tablet 50 mg PO BID 01/31/25 04/14/25 olanzapine 10 mg tablet 10 mg PO TID 02/03/25 04/14/25 Previous Rx's ?Medication ?Instructions ?Recorded atorvastatin 20 mg tablet 20 mg PO QPM 90 days #90 tabs 01/10/25 tamsulosin 0.4 mg capsule 0.4 mg PO QAM 90 days #90 caps 01/10/25 cefuroxime axetil 500 mg tablet 500 mg PO BID 7 days #14 tabs 03/10/25 Allergies Allergy/AdvReac Type Severity Reaction Status Date / Time No Known Allergies (NO KNOWN Allergy Unknown UNKNOWN Verified 04/19/25 15:07 ALLERGIES) Review of Systems Review of Systems: Yes all other systems are reviewed and are negative Constitutional: Constitutional: Reports no additional constitutional complaints, Denies body ache(s), Denies chills, Denies fever(s), Denies headache(s) and Denies weakness Eyes: Eyes: Reports no additional eye complaints and Denies change in vision ENT: Reports system reviewed and no additional complaints, except as documented, Denies dizziness, Denies headache(s), Denies nasal congestion, Denies nasal discharge and Denies neck pain Cardiovascular: Cardiovascular: Reports no additional cardiovascular complaints, Denies chest pain, Denies leg edema, Reports palpitations and Denies dyspnea Respiratory: Respiratory: Reports no additional respiratory complaints, Denies cough and Denies dyspnea Gastrointestinal: Gastrointestinal: Reports no additional gastrointestinal complaints, Denies abdominal pain, Denies diarrhea, Denies nausea and Denies vomiting Genitourinary: Genitourinary: Denies urinary incontinence Musculoskeletal: Musculoskeletal: Reports no additional musculoskeletal complaints, Denies back pain, Denies arthralgias, Denies joint swelling, Denies neck pain, Denies numbness and Denies tingling Integumentary/Breasts: Skin/Breast: Reports system reviewed and no additional complaints, except as docu and Denies rash Neurologic: Reports system reviewed and no additional complaints, except as documented, Denies Abnormal speech present, Denies dizziness, Denies headache(s), Denies numbness, Denies tingling and Denies weakness Endocrine: Endocrine: Reports palpitations PMFSH Past Medical History Attestation statement: The following information was validated with the patient. Source: old records reviewed and nursing notes reviewed Medical History Acute anxiety Smoker GERD without esophagitis Tubular adenoma of colon (~2018) Personal history of nicotine dependence Constipation Back pain Schizoaffective disorder, bipolar type Anxiety Benign prostatic hyperplasia with lower urinary tract symptoms Pure hypercholesterolemia Thought disorder Bipolar 1 disorder Mood disorder Surgical History History of colonoscopy (~04/2019) History of prostate surgery (~04/2019) History of open reduction and internal fixation (ORIF) procedure (~08/2018) Family History Family History Father Lung cancer BPH (benign prostatic hyperplasia) Mother Dementia Brother Myocardial infarction Other Mental health problem Substance abuse Social History Social History Household Members: Other Housing: Other Housing Other:: [facility]iary Do you presently have visiting nurse or other home services: No Alcohol intake: never Patient Tobacco Use Status: Current everyday Tobacco user Tobacco use type: Cigarette Cigarette Packs Per Day: 0.5 Cigarettes Per Day: 10.0 Years Smoked: 10 e-Cigarette/Vaping Use: Never Used Second Hand Smoke Exposure: Yes Advance Directives: No Advance Directives Information Provided: No service: No Current occupational status: employed and disabled Current occupation: [employer] Sexual orientation: Straight/Heterosexual Cognitive needs: No Hearing needs: No Vision needs: Yes Physical Exam ED Vital Signs: Vital Signs - 24 hr 04/19/25 15:03 Temperature 97.6 F Pulse Rate 86 Respiratory Rate 16 Blood Pressure 123/60 Pulse Oximetry 96 Oxygen Delivery Method Room Air BMI result Body Mass Index 21.5 Const General: cooperative, healthy appearing, comfortable and no acute distress Orientation/consciousness: patient oriented x3 Limitations: no limitations HENMT Head: Yes normal to inspection Ears: hearing grossly normal bilaterally General nose exam: Normal external nose present Face and sinus: Yes normal facial exam Mouth: Normal oral and palatal mucosa present Throat: Yes posterior oropharynx normal Eyes General: appearance normal, both eyes and all related structures Pupils: Equal, round and reactive pupils present Neck Neck: Yes normal visual inspection Chest Chest palpation & inspection: normal inspection of the chest Resp Effort & Inspection: normal respiratory effort Auscultation: clear to auscultation bilaterally Cardio Rate: regular rate Rhythm: regular rhythm Peripheral pulses: Peripheral pulses 2+ throughout GI Inspection: Yes normal to inspection Palpation (GI): Soft to palpation and nontender Auscultation: normal bowel sounds Back/Spine/Pelvis Thoracic/Lumbar Spine: thoracic and lumbar spine normal to inspection Skin General skin exam: no rashes or lesions noted Neuro General: patient oriented x3, no focal motor deficits and normal sensation to monofilament Cranial nerves: Yes Equal, round and reactive pupils present Cognition (Neuro): normal cognition Speech: No Abnormal speech present Gait exam (Neuro): Normal gait present Motor exam (neuro): 5/5 motor strength present throughout Extrem General: Yes normal to inspection Course Course Course Narrative: Henna Dodge DRAFTER ASSISTANT 04/19 3041 This is a rapid medical exam. Deferred additional HPI, ROS, PE to primary provider. 59 yo male here with complaints of palpitations, complaints of not liking his alf. Will obtain labs, EKG VSS Medical Decision Making Medical Decision Making MDM Narrative: Patient is a 59-year-old male with history of smoking, GERD, schizoaffective disorder, bipolar type, BPH here with complaints of palpitations for days, feels anxious. Unhappy with his alf. Recently had some medication changes. No SI/HI. No chest pain, shortness of breath, diaphoresis, leg swelling or leg pain, vomiting, diarrhea or abdominal pain. Exam is benign VSS This gentlemen is mainly unhappy with his current place of living. No safety concerns. More social concerns. Recommended he speak to alf management. Will obtain EKG, labs Differential Diagnosis Differential Diagnoses: The differential diagnosis associated with the presentation includes anxiety arrthymia, electrolyte abnormality, acs Admission/Observation Consideration of admission/observation: Escalation of care including admission/observation considered Lab Data MDM Lab Attestation statement: I reviewed the patient's lab results. 04/19/25 15:19 04/19/25 15:19 Labs: Lab Results 04/19/25 Range/Units 15:19 WBC 5.9 (4.8-10.8) X10*3/uL RBC 3.90 L (4.60-5.80) X10*6/uL Hgb 12.5 L (14.0-18.0) g/dl Hct 36.2 L (42.0-52.0) % MCV 92.8 (80.0-98.0) fL MCH 32.1 (27.0-33.0) pg MCHC 34.5 (31.0-36.0) g/dl RDW 14.4 (11.0-16.0) % Plt Count 132 L (160-400) X10*3/uL MPV 11.6 (9.4-12.4) fL Immature Gran % (Auto) 0.7 H (0.0-0.4) % Neut % (Auto) 57.2 (45-73) % Lymph % (Auto) 27.2 (20-40) % [place] % (Auto) 12.0 H (2-11) % Eos % (Auto) 1.5 (0-4) % Baso % (Auto) 1.4 (0-2) % Lymph # (Auto) 1.6 (1.2-4.9) X10*3/uL [place] # (Auto) 0.7 (0.1-1.2) X10*3/uL Eos # (Auto) 0.1 (0.0-0.4) X10*3/uL Baso # (Auto) 0.1 (0.0-0.2) X10*3/uL Abs Immat Gran (auto) 0.04 H (0.00-0.03) X10*3/uL Absolute Neuts (auto) 3.4 (2.0-8.3) x10*3/uL Absolute Nucleated RBC 0.000 (0.0-0.012) X10*3/uL Nucleated RBC % (auto) 0.0 (0.0-0.2) /100WBC Smear Tech's Comments VERIFIED Sodium 137 (135-145) mmol/L Potassium 4.3 (3.3-5.1) mmol/L Chloride 106 (96-108) mmol/L Carbon Dioxide 23 (22-29) mmol/L Anion Gap 12 (12-20) BUN 15 (9-16) mg/dL Creatinine 0.68 (0.5-1.4) mg/dL Estim Creat Clear Calc 109.0 Estimated GFR > 60 Random Glucose 114 (60-115) mg/dL Calcium 8.4 (8.4-10.2) mg/dL Total Bilirubin 0.2 (0.0-1.0) mg/dL Direct Bilirubin < 0.2 (0.0-0.5) mg/dL AST 46 H (5-37) U/L ALT 19 (0-40) U/L Alkaline Phosphatase 55 (39-117) U/L Troponin I High Sens 3.3 (<3.5-35.0) ng/L Total Protein 6.1 L (6.5-8.0) g/dL Albumin 3.8 (3.5-5.0) g/dL Independent Interpretation I performed an independent interpretation of an: EKG Interpretation: I independetely reviewed the EKG which shows NSR Discharge Plan Discharge Clinical Impression: Palpitations Patient Disposition: Home, Self-Care Instructions: Heart Palpitations (ED) Additional Instructions: Follow-up with your outpatient providers Blood work and EKG look good Prescriptions: No Action quetiapine 100 mg tablet 100 mg PO BEDTIME lorazepam 1 mg tablet 1 mg PO DAILY PRN (Reason: Anxiety) aripiprazole 30 mg tablet 30 mg PO DAILY quetiapine 50 mg tablet 50 mg PO BID olanzapine 10 mg tablet 10 mg PO TID cefuroxime axetil 500 mg tablet 500 mg PO BID 7 Days Qty: 14 0RF tamsulosin 0.4 mg capsule 0.4 mg PO QAM 90 Days Qty: 90 0RF atorvastatin 20 mg tablet 20 mg PO QPM 90 Days Qty: 90 3RF Referrals: Dk Rodriguez MD [Primary Care Provider, Internal Medicine] Print Language: Ghanaian
--- NOTE | 2025-04-19 15:06 | ECG_ITS ---
Test Reason : PALPITATIONS Blood Pressure : */* mmHG Vent. Rate : 78 BPM Atrial Rate : 78 BPM P-R Int : 140 ms QRS Dur : 80 ms QT Int : 354 ms P-R-T Axes : 65 -2 23 degrees QTcB Int : 403 ms Normal sinus rhythm Normal ECG When compared with ECG of 18-Apr-2025 13:34, No significant change was found Referred By: Henna Dodge Electronically Signed By: RACHEAL VILLAFANA MD
[2025-04-19 15:32] LABS: Hematocrit 36.2 % (42.0-52.0); Hemoglobin 12.5 g/dl (14.0-18.0); Imm Gran Abs Auto 0.04 X10*3/uL (0.00-0.03); Imm Gran Pct Auto 0.7 % (0.0-0.4); Lymphocytes Absolute Auto 1.6 X10*3/uL (1.2-4.9); MANUAL DIFF FLAG SCAN; Mean Corpuscular HGB Conc 34.5 g/dl (31.0-36.0); Mean Corpuscular Hemoglobin 32.1 pg (27.0-33.0); Mean Corpuscular Volume 92.8 fL (80.0-98.0); NRBC Abs Auto 0.000 X10*3/uL (0.0-0.012); NRBC Pct Auto 0.0 /100WBC (0.0-0.2); PLT CLUMP 1; Red Blood Count 3.90 X10*6/uL (4.60-5.80); SCAN SMEAR FLAG 1; White Blood Count 5.9 X10*3/uL (4.8-10.8)
[2025-04-19 15:51] LABS: Alanine Aminotransferase 19 U/L (0-40); Albumin Level 3.8 g/dL (3.5-5.0); Alkaline Phosphatase 55 U/L (39-117); Anion Gap 12 (12-20); Aspartate Amino Transferase 46 U/L (5-37); Blood Urea Nitrogen 15 mg/dL (9-16); Calcium 8.4 mg/dL (8.4-10.2); Carbon Dioxide 23 mmol/L (22-29); Chloride 106 mmol/L (96-108); Creatinine Clr Calc Pharmacy 109.0; Estimated Glomerular Filt Rate > 60; Potassium 4.3 mmol/L (3.3-5.1); Sodium 137 mmol/L (135-145); Total Protein 6.1 g/dL (6.5-8.0)
[2025-04-19 15:55] LABS: Troponin-I High Sensitivity 3.3 ng/L (<3.5-35.0)
[2025-04-19 16:05] LABS: Platelet Count 132 X10*3/uL (160-400)
[2025-04-19 16:13] VITALS: BP 123/60; PULSE 86; RESP 16; TEMP 36.4; O2SAT 96
== END 2025-04-19 16:14 | disposition home or self-care (01) ==
PROVIDERS: Nurse Practitioner Family; Emergency Provider Emergency Medicine; PCP Internal Medicine
DX: R00.2 Palpitations (principal)
CPT/HCPCS: 36415; 80048; 80076; 84484; 85025; 93005; 99282; 99283

== ENCOUNTER → 2025-04-19 15:06 | Outpatient (BNV) | payer MEDICARE, MEDICAID, SELFPAY | PROVIDERS: Emergency Provider Emergency Medicine; PCP Internal Medicine; Visit Provider Internal Medicine Cardiovascular Disease | DX: R00.2 Palpitations (principal) | CPT/HCPCS: 93010 ==

== ENCOUNTER 2025-04-22 18:07 | Emergency (ER) | payer MEDICARE, MEDICAID, SELFPAY ==
[2025-04-22 18:34] VITALS: BP 133/82; PULSE 88; RESP 18; TEMP 36.6; O2SAT 98; BMI 20.5
--- NOTE | 2025-04-22 18:35 | ED.GENADULT ---
HPI - General Adult General Chief complaint: General Medical Stated complaint: nauseous, vomitting Time Seen by Provider: 04/22/25 21:55 Source: patient Mode of arrival: ambulatory Limitations: no limitations History of Present Illness ED Provider: Dr. Ginger Mello HPI narrative: Patient comes to the emergency room complaining of nausea and vomiting. Patient states it only happens once a day. Patient states that he has a lot going on in his detention, states that the stress is taking a toll both psychologically and physically. Patient also complaining of chronic inflamed bladder. Patient denies hematuria or dysuria. Denies fever or chills, denies flank pain Related Data Home Medications ?Medication ?Instructions ?Recorded ?Confirmed aripiprazole 30 mg tablet 30 mg PO DAILY 01/31/25 04/14/25 lorazepam 1 mg tablet 1 mg PO DAILY PRN Anxiety 01/31/25 04/14/25 quetiapine 100 mg tablet 100 mg PO BEDTIME 01/31/25 04/14/25 quetiapine 50 mg tablet 50 mg PO BID 01/31/25 04/14/25 olanzapine 10 mg tablet 10 mg PO TID 02/03/25 04/14/25 Previous Rx's ?Medication ?Instructions ?Recorded atorvastatin 20 mg tablet 20 mg PO QPM 90 days #90 tabs 01/10/25 tamsulosin 0.4 mg capsule 0.4 mg PO QAM 90 days #90 caps 01/10/25 cefuroxime axetil 500 mg tablet 500 mg PO BID 7 days #14 tabs 03/10/25 Allergies Allergy/AdvReac Type Severity Reaction Status Date / Time No Known Allergies (NO KNOWN Allergy Unknown UNKNOWN Verified 04/22/25 18:39 ALLERGIES) Review of Systems Review of Systems: Constitutional : No Weight loss, No Fever, No Chills, No Night Sweats, No Fatigue, No Malaise ENT/Mouth : No Hearing loss, No Ear Pain, No Nasal Congestion, No Sinus Pain, No Hoarseness, No sore throat, No Rhinorrhea, No Swallowing Difficulty Eyes: No Eye Pain, No Swelling, No Redness, No Foreign Body, No Discharge, No Vision Changes Cardiovascular : No Chest Pain, No SOB, No Dyspnea on Exertion, No Orthopnea, No Edema, No Palpitations Respiratory : No Cough, No Sputum, No Wheezing, No Smoke Exposure, No Dyspnea Gastrointestinal : Complaining of nausea and vomiting, No Diarrhea, No Constipation, No abdominal Pain, No Hematochezia, No Melena Genitourinary : Complaining of chronic bladder pain, no irregular bleeding, No Dysuria, No Urinary Frequency, No Hematuria, No Urinary Incontinence, No Urgency, No Flank Pain, No Urinary Flow Changes, No Hesitancy Musculoskeletal : No joint pain, No Myalgias, No Joint Swelling Skin : No Skin Lesions, No rash Neuro : No Weakness, No Numbness, No Paresthesias, No Loss of Consciousness, No Dizziness, No Headache Psych : No Anxiety/Panic, No Depression, No SI/HI/AH/VH, No Social Issues, Heme/Lymph: No Bruising, No Bleeding,No Lymphadenopathy Endocrine : No Polyuria, No Polydipsia, No Temperature Intolerance [facility] Past Medical History Medical History Acute anxiety Smoker GERD without esophagitis Tubular adenoma of colon (~2018) Personal history of nicotine dependence Constipation Back pain Schizoaffective disorder, bipolar type Anxiety Benign prostatic hyperplasia with lower urinary tract symptoms Pure hypercholesterolemia Thought disorder Bipolar 1 disorder Mood disorder Surgical History History of colonoscopy (~04/2019) History of prostate surgery (~04/2019) History of open reduction and internal fixation (ORIF) procedure (~08/2018) Family History Family History Father Lung cancer BPH (benign prostatic hyperplasia) Mother Dementia Brother Myocardial infarction Other Mental health problem Substance abuse Social History Social History Household Members: Other Housing: Other Housing Other:: Shelter Do you presently have visiting nurse or other home services: No Alcohol intake: never Patient Tobacco Use Status: Current everyday Tobacco user Tobacco use type: Cigarette Cigarette Packs Per Day: 0.5 Cigarettes Per Day: 10.0 Years Smoked: 10 e-Cigarette/Vaping Use: Never Used Second Hand Smoke Exposure: Yes Advance Directives: No Advance Directives Information Provided: No Do you have a plan to hurt others: No Plan service: No Current occupational status: employed and disabled Current occupation: [employer] Sexual orientation: Straight/Heterosexual Cognitive needs: No Hearing needs: No Vision needs: Yes Physical Exam ED Exam Exam: Appearance: Alert. Oriented X3. No acute distress. Eyes: Pupils equal, round and reactive to light. ENT: Pharynx normal. Neck: Normal inspection. Neck supple. No lymph nodes noted. No crepitus CVS: Normal heart rate and rhythm. Pulses normal. Normal S1 and S2 Respiratory: No respiratory distress. Breath sounds normal. No Wheezing. No rales Abdomen: Soft and nontender. No rigidity. No distention. Skin: Skin warm and dry. Normal skin color. Normal skin turgor. Extremities: No lower extremity edema. No Lacerations. No Rash Neuro: Oriented X 3. No motor deficit. No sensory deficit. Moving all extremities. No slurred speech. CN 2 through 12 grossly intact Psych: calm, cooperative, normal affect Vital Signs: Vital Signs - 24 hr 04/22/25 18:34 Temperature 98 F Pulse Rate 88 Respiratory Rate 18 Blood Pressure 133/82 Pulse Oximetry 98 Oxygen Delivery Method Room Air BMI result Body Mass Index 20.5 Course Course Course Narrative: This is an RME: Additional HPI, ROS, PE not included below will be deferred to primary provider. RME assessment and note performed by: Maritza Krishnamurthy PA-C 59-year-old male with history of smoking, GERD, schizoaffective disorder, bipolar type, BPH here with complaints of urinary problems. Reports that he has pressure inside of his bladder. States that he has had nausea and vomiting, and he is also having palpitations. discusses that he has a lot of issues at his home, both psychologically and physically. Plan: further ER evaluation needed. Medical Decision Making Medical Decision Making [facility] Narrative: My interpretation of EKG: Normal sinus rhythm, heart rate 65, no ST segment depression or elevation, no T-wave inversion, QTC 386 My interpretation of labs: Normal white blood cell count, no significant abnormality patient's hematology or chemistry, normal LFTs, normal troponin, urinalysis negative for UTI I discussed the labs with the patient, patient states that he feels much better. Patient is no longer nauseous or vomited. Patient denies diarrhea or abdominal pain. Patient states that he feels well to go back to his detention. Differential Diagnosis Differential Diagnoses: The differential diagnosis associated with the presentation includes (Gastritis, gastroenteritis, viral syndrome) Lab Data [facility] Lab Attestation statement: I reviewed the patient's lab results. 04/22/25 19:30 04/22/25 19:30 Labs: Lab Results 04/22/25 04/22/25 Range/Units 19:30 20:51 WBC 7.9 (4.8-10.8) X10*3/uL RBC 4.43 L (4.60-5.80) X10*6/uL Hgb 14.0 (14.0-18.0) g/dl Hct 41.9 L (42.0-52.0) % MCV 94.6 (80.0-98.0) fL MCH 31.6 (27.0-33.0) pg MCHC 33.4 (31.0-36.0) g/dl RDW 14.3 (11.0-16.0) % Plt Count 168 D (160-400) X10*3/uL MPV 10.7 (9.4-12.4) fL Immature Gran % (Auto) 0.3 (0.0-0.4) % Neut % (Auto) 55.5 (45-73) % Lymph % (Auto) 28.2 (20-40) % [place] % (Auto) 13.2 H (2-11) % Eos % (Auto) 1.5 (0-4) % Baso % (Auto) 1.3 (0-2) % Lymph # (Auto) 2.2 (1.2-4.9) X10*3/uL [place] # (Auto) 1.0 (0.1-1.2) X10*3/uL Eos # (Auto) 0.1 (0.0-0.4) X10*3/uL Baso # (Auto) 0.1 (0.0-0.2) X10*3/uL Abs Immat Gran (auto) 0.02 (0.00-0.03) X10*3/uL Absolute Neuts (auto) 4.4 (2.0-8.3) x10*3/uL Absolute Nucleated RBC 0.000 (0.0-0.012) X10*3/uL Nucleated RBC % (auto) 0.0 (0.0-0.2) /100WBC Sodium 136 (135-145) mmol/L Potassium 4.3 (3.3-5.1) mmol/L Chloride 105 (96-108) mmol/L Carbon Dioxide 24 (22-29) mmol/L Anion Gap 11 L (12-20) BUN 15 (9-16) mg/dL Creatinine 0.77 (0.5-1.4) mg/dL Estim Creat Clear Calc 92.0 Estimated GFR > 60 Random Glucose 85 (60-115) mg/dL Calcium 9.3 D (8.4-10.2) mg/dL Total Bilirubin 0.3 (0.0-1.0) mg/dL AST 27 (5-37) U/L ALT 19 (0-40) U/L Alkaline Phosphatase 61 (39-117) U/L Troponin I High Sens < 2.7 (<3.5-35.0) ng/L Total Protein 6.7 (6.5-8.0) g/dL Albumin 4.1 (3.5-5.0) g/dL Urine Color Yellow Urine Appearance Clear Urine pH 6.5 (5.0-9.0) Ur Specific [place] <= 1.005 (1.005-1.025) Urine Protein Negative (Neg-Trace) mg/dL Urine Glucose (UA) Negative (Negative) mg/dL Urine Ketones Negative (Negative) mg/dL Urine Blood Trace H (Negative) Urine Nitrite Negative (Negative) Ur Leukocyte Esterase Negative (Negative) Urine RBC 0-2 (0-2) /HPF Urine WBC 0-5 (0-5) /HPF Ur Squamous Epith Cells 0-2 (0-2) /HPF Urine Bacteria None Seen (None Seen) Hyaline Casts 0-2 (0-2) /LPF Discharge Plan Discharge Clinical Impression: Nausea & vomiting, Dysuria Patient Disposition: Home, Self-Care Instructions: Acute Nausea and Vomiting (DC), Dysuria (ED) Additional Instructions: Please follow-up with your primary care physician tomorrow. If you have any worsening or new symptoms, please return to the emergency room or call 911 Prescriptions: No Action quetiapine 100 mg tablet 100 mg PO BEDTIME lorazepam 1 mg tablet 1 mg PO DAILY PRN (Reason: Anxiety) aripiprazole 30 mg tablet 30 mg PO DAILY quetiapine 50 mg tablet 50 mg PO BID olanzapine 10 mg tablet 10 mg PO TID cefuroxime axetil 500 mg tablet 500 mg PO BID 7 Days Qty: 14 0RF tamsulosin 0.4 mg capsule 0.4 mg PO QAM 90 Days Qty: 90 0RF atorvastatin 20 mg tablet 20 mg PO QPM 90 Days Qty: 90 3RF Print Language: Wolof
--- NOTE | 2025-04-22 19:09 | ECG_ITS ---
Test Reason : PALPITATIONS Blood Pressure : */* mmHG Vent. Rate : 65 BPM Atrial Rate : 65 BPM P-R Int : 128 ms QRS Dur : 92 ms QT Int : 372 ms P-R-T Axes : 64 1 36 degrees QTcB Int : 386 ms Normal sinus rhythm Normal ECG When compared with ECG of 19-Apr-2025 15:11, No significant change was found Referred By: Maritza Krishnamurthy Electronically Signed By: WIL SPRINGER
[2025-04-22 19:34] LABS: MANUAL DIFF FLAG NO
[2025-04-22 19:37] LABS: Hematocrit 41.9 % (42.0-52.0); Hemoglobin 14.0 g/dl (14.0-18.0); Imm Gran Abs Auto 0.02 X10*3/uL (0.00-0.03); Imm Gran Pct Auto 0.3 % (0.0-0.4); Lymphocytes Absolute Auto 2.2 X10*3/uL (1.2-4.9); Mean Corpuscular HGB Conc 33.4 g/dl (31.0-36.0); Mean Corpuscular Hemoglobin 31.6 pg (27.0-33.0); Mean Corpuscular Volume 94.6 fL (80.0-98.0); NRBC Abs Auto 0.000 X10*3/uL (0.0-0.012); NRBC Pct Auto 0.0 /100WBC (0.0-0.2); Platelet Count 168 X10*3/uL (160-400); Red Blood Count 4.43 X10*6/uL (4.60-5.80); White Blood Count 7.9 X10*3/uL (4.8-10.8)
[2025-04-22 19:55] LABS: Alanine Aminotransferase 19 U/L (0-40); Albumin Level 4.1 g/dL (3.5-5.0); Alkaline Phosphatase 61 U/L (39-117); Anion Gap 11 (12-20); Aspartate Amino Transferase 27 U/L (5-37); Blood Urea Nitrogen 15 mg/dL (9-16); Calcium 9.3 mg/dL (8.4-10.2); Carbon Dioxide 24 mmol/L (22-29); Chloride 105 mmol/L (96-108); Creatinine Clr Calc Pharmacy 92.0; Estimated Glomerular Filt Rate > 60; Potassium 4.3 mmol/L (3.3-5.1); Sodium 136 mmol/L (135-145); Total Protein 6.7 g/dL (6.5-8.0)
[2025-04-22 20:03] LABS: Troponin-I High Sensitivity < 2.7 ng/L (<3.5-35.0)
[2025-04-22 20:59] LABS: Appearance Urine Clear; Glucose Urine UA Negative (Negative); PH 6.5 (5.0-9.0); Specific Gravity - Urine <= 1.005 (1.005-1.025); UMIC TRIGGER UACC YES
[2025-04-22 22:10] VITALS: BP 126/74; PULSE 74; RESP 16; TEMP 36.4; O2SAT 95
--- OUTSIDE RECORDS SUMMARY | 2025-04-23 13:47 | XMS_ITS | Clinical Summary ---
Author Organization [facility] Address [address] [place] [address] Care Team Providers Care Pigeon Fancier Name Role Phone Ref, Has No Pcp [...] Plan (01/03/2024 2:32 PM EDT): Presents from [facility] in the setting of urinary retention [...] Plan (01/03/2024 10:49 AM EDT): Presented from [facility] with hyponatremia (initially 123). Also [...] Plan (01/02/2024 11:43 AM EDT): Presents from [facility] in the setting of urinary retention [...] Seroquel 25 mg twice daily Presents from [facility] forensic unit with documented history of schizophrenia. Continue home aripiprazole 20mg daily Continue home carbamazepine 500 mg twice daily Continue home Zyprexa 15 mg nightly Continue home Seroquel 25 mg twice daily Consider psychiatry consult if concern that antipsychotic medications are causing SIADH Patient presents from [facility], requires constant observation Assessment & Plan (01/02/2024 11:43 AM EDT): Home medications: aripiprazole 20 mg daily, carbamazepine 500 mg twice daily, Zyprexa 15 mg nightly, Seroquel 25 mg twice daily Presents from [facility] forensic unit with documented history of schizophrenia. Continue home aripiprazole 20mg daily Continue home carbamazepine 500 mg twice daily Continue home Zyprexa 15 mg nightly Continue home Seroquel 25 mg twice daily Consider psychiatry consult if concern that antipsychotic medications are causing SIADH Patient presents from [facility], requires constant observation BPH (benign prostatic hyperplasia) 12/30/2023 Assessment & Plan (01/03/2024 2:33 PM EDT): Paperwork from the [facility] indicates history of BPH with prior need for intermittent catheterization requiring urology evaluation in the past, records not available in our system). Per documentation from [facility] patient has seen urology at [facility] in [place]. He was started on Flomax outpatient. In [...] available in our system). Per documentation from [facility] patient has seen urology at [facility] in [place]. He was started on Flomax outpatient. In [...] 2025 , 04/11/2018, 02/17/2017, Additional history exists COVID-19 Vaccine (5 - 2024-2 6 season) 2025 03/17/2023, 03/31/2021, 07/23/2020, Additional history exists DTaP,Tdap,and Td Vaccines (3 - Td or Tdap) 02/28/2029 02/28/2019, 03/22/2014, 03/22/2014, Additional history exists Tobacco Screening 06/05/2042 01/29/2024 Insurance [facility] MEDICARE [facility] Advance Directives * Full Code (Latest Code Status on File) Date Activated Date Inactivated Comments 12/30/2023 7:22 PM 01/03/2024 8:48 PM * Presumed Full Code Date Activated Date Inactivated Comments 12/30/2023 7:00 PM 12/30/2023 7:22 PM Care Teams Pigeon Fancier Relationship Specialty Start Date End Date Ref, Has No Pcp Or DO NOT EDIT THIS RECORD VIA PROVIDER ON THE FLY PCP - General Civil Engineering Director 12/30/23
--- OUTSIDE RECORDS SUMMARY | 2025-04-23 13:47 | XMS_ITS | Encounter Summary ---
Author Organization [facility] Address [address] [place] [address] Care Team Providers Care Sharepoint Analyst Name Role Phone Ref, Has No Pcp Or Primary Care Provider Unavail able Encounter Details Date Type Department Care Team (Late st Contact Info) Description 01/04/2024 Community Orders [facility] EpicCare Link [address] [place] [address] Bethany Lozano, FRATERNITY ADVISER [address] [place] [address] Social History Tobacco Use Types Packs/Day Years [...] on filedocumented in this encounter Care Teams Sharepoint Analyst Relationship Specialty Start Date End Date Ref, Has No Pcp Or DO NOT EDIT THIS RECORD VIA PROVIDER ON THE FLY PCP - General Acute Specialist 12/30/23 documented as of this encounter
--- OUTSIDE RECORDS SUMMARY | 2025-04-23 13:47 | XMS_ITS | Clinical Summary ---
Author Organization [facility] Address [address] [place] [address] Phone Care Team Providers Care Family Readiness Support Assistant Name Role Phone Dk Rodriguze MD Primary Care Provider [phone] Allergies No known active allergies Medications No known medications Encounters Date Type Department Care Team Description 04/10/2025 8:45 PM EST - 04/10/2025 10:25 PM EST [facility] Emergency [address] [place] [phone] Discharge Disposition: Home or Self Care 03/30/2025 9:37 PM EDT - 03/30/2025 11:09 PM EDT [facility] Emergency [address] [place] [phone] Discharge Disposition: Left Against Medical Advice 03/06/2025 9:24 PM EDT - 03/06/2025 9:57 PM EDT Emergency [facility] Emergency [address] [place] [phone] Discharge Disposition: Home or Self Care 02/15/2025 9:21 PM EDT - 02/15/2025 9:45 PM EDT [facility] Emergency [address] [place] [phone] Encounter for Santos catheter removal (Primary Dx) Discharge Disposition: Home or Self Care 02/14/2025 8:31 PM EDT - 02/14/2025 9:27 PM EDT [facility] Emergency [address] [place] [phone] Urinary retention (Primary Dx) Discharge Disposition: Home or Self Care 02/10/2025 9:24 PM EDT - 02/10/2025 11:43 PM EDT Emergency [facility] Emergency [address] [place] [address] Discharge Disposition: Home or Self Care 02/01/2025 8:58 PM EDT - 02/01/2025 10:49 PM EDT Emergency [facility] Emergency [address] [place] [address] Discharge Disposition: Home or Self Care 01/30/2025 8:57 PM EDT - 01/31/2025 12:33 AM EDT Emergency [facility] Emergency [address] [place] [address] Discharge Disposition: Home or Self Care 01/28/2025 9:14 PM EDT - 01/28/2025 11:28 PM EDT [facility] Emergency [address] [place] [address] Discharge Disposition: Home or Self Care from Last 3 Months Medical History Medical History Date Comments Bipolar 1 disorder (CMS/HCC V24, CMS/HCC V28) Mood disorder (CMS/[facility] V24) Hyperactivity of [...] this topic [place] [address] [address] MEDICARE MEDICAID - [place] Care Teams Family Readiness Support Assistant Relationship Specialty Start Date End Date Dk Rodriguez MD [address] [place] [address] [address] [place], [place] PCP - General Internal Medicine 07/16/24
== END 2025-04-22 22:11 | disposition home or self-care (01) ==
PROVIDERS: Physician Assistant Medical; Emergency Provider Emergency Medicine; PCP Internal Medicine
DX: R11.2 Nausea with vomiting, unspecified (principal); R30.0 Dysuria; N40.0 Benign prostatic hyperplasia without lower urinary tract symptoms
CPT/HCPCS: 36415; 80053; 81001; 81003; 84484; 85025; 93005; 99283

== ENCOUNTER → 2025-04-22 19:09 | Outpatient (BNV) | payer MEDICARE, MEDICAID, SELFPAY | PROVIDERS: Emergency Provider Emergency Medicine; PCP Internal Medicine; Visit Provider Internal Medicine | DX: R00.2 Palpitations (principal) | CPT/HCPCS: 93010 ==

== ENCOUNTER 2025-04-28 18:36 | Emergency (ER) | payer MEDICARE, MEDICAID, SELFPAY ==
--- OUTSIDE RECORDS SUMMARY | 2025-04-24 23:11 | XMS_ITS | Continuity of Care Document ---
Author Organization [facility] ter Address [address] [place] [address]- Care Team Providers Care Salvage Inspector Name Role Phone Dk Rodriguez MD Primary Care [id number] Date[facility]s): 04/24/25 - 04/24/[address] [address]- Discharge Disposition: A-D/C Walkout Attending Physician: Not [...] ve Date Gregorio coma score total 15 Problem List Condition Confirmation Course Effective Dates Status Health St atus Informant Alcohol Abuse, in Remission Confirmed Active Anxiety Confirmed Active Carbuncle of face Confirmed Active Vital Signs Most recent to oldest [Reference Range]: 1 Height 175 cm (04/24/25 9:30 PM) Weight 63.7 kg (04/24/25 9:30 PM) Oxygen Saturation [94-100 %] 100 % (04/24/25 9:30 PM) Pulse Rate [55-90 bpm] 80 bpm (04/24/25 9:30 PM) Body Mass Index [18.5-24.99 kg/m2] 20.8 kg/m2 (04/24/25 9:30 PM) Blood Pressure [90-138/55-84 mm Hg] 105/ 87mm Hg (04/24/25 9:30 PM) Respiratory Rate [16-30 br/min] 17 br/mi n (04/24/25 9:30 PM) Temperature [96.8-100.4 DegF] 97.5 DegF (04/24/25 9:30 PM) Mode of Delivery (Oxygen) Room air (04/24/25 9:30 PM) Blood pressure sites Arm, left (04/24/25 9:30 PM) Temperature Route Oral (04/24/25 9:30 PM) Dry Weight 63.7 kg (04/24/25 9:30 PM) Weight Obtained Via Patient/family state d (04/24/25 9:30 PM) Dry Weight Obtained Via Patient/family s tated (04/24/25 9:30 PM) Social History Social History Type Response Smoking Status Current every day sm oker; Tobacco user in household: Yes entered on: 04/26/14 Sex Male Sex Representation Male (finding) Patient Care team information Care Team Personnel Name: Dk Rodriguez MD Position: Reference Physician Member Role: PCP Address: [address] [place] [address] Telecom: Name: Dena Bernal RN Position: [facility] RN Member Role: Primary Care Nurse Name: Irma Stout RN Position: [facility] RN Member Role: Primary Care Nurse Care Team Related Persons Name: RIZWANA MENDOZA Name: RIGO TORIBIO Name: STAFF, NURSING HOME Insurance Providers Guarantor name: RAGHAV TORIBIO Health Plan Information #: 1 Payer: ED QUICK REG Payer Identifier: SRIDHAR Member Number: [id number] Group Number: [id number] Subscriber Identifier: [id number] Relationship to Subscriber: self Coverage Type: Self-pay (Includes applicants for insurance and Medicaid applicants) Coverage Verification Date: NA Telecom: NA Address:
--- OUTSIDE RECORDS SUMMARY | 2025-04-27 02:06 | XMS_ITS | Continuity of Care Document ---
Author Organization [facility] ter Address [address] [place] [address]- Care Team Providers Care Materials Technician Name Role Phone Dk Rodriguez MD [id number] Date(s): 04/26/25 - 04/27/[address] [address]- Discharge Disposition: A-D/C Walkout Attending Physician: Not [...] ve Date Gregorio coma score total 15 Mental Status Assessment Assessment Assessment Component Result Effecti ve Date Gregorio coma score total 15 Problem List Condition Confirmation Course Effective Dates Status Health St atus Informant Alcohol Abuse, in Remission Confirmed Active Anxiety Confirmed Active Carbuncle of face Confirmed Active Vital Signs Most recent to oldest [Reference Range]: 1 Height 175 cm (04/26/25 9:25 PM) Weight 65.5 kg (04/26/25: PM) Oxygen Saturation [94-100 %] 100 % (04/26/25: PM) Pulse Rate [55-90 bpm] 73 bpm (04/26/25: PM) Body Mass Index [18.5-24.99 kg/m2] 21.39 kg/m2 (04/26/25 PM) Blood Pressure [90-138/55-84 mm Hg] 113/ 101mm Hg (04/26/25 9:25 PM) Respiratory Rate [16-30 br/min] 17 br/mi n (04/26/25: PM) Temperature [96.8-100.4 DegF] 97.5 DegF (04/26/25 9:25 PM) Mode of Delivery (Oxygen) Room air (04/26/25 9:25 PM) Blood pressure sites Arm, right (04/26/25 9:25 PM) Temperature Route Oral (04/26/25 9:25 PM) Weight Obtained Via Standing scale (04/26/25 9:25 PM) Social History Social History Type Response Smoking Status Current every day sm oker; Tobacco user in household: Yes entered on: 04/26/14 Sex Male Sex Representation Male (finding) Status N/A Patient Care team information Care Team Personnel Name: Michael WILBURN, Dk Canales Position: Reference Physician Member Role: PCP Address: [address] [place] [address] [place] [address] Telecom: Name: Dena Bernal RN Position: S RN Member Role: Primary Care Nurse Name: Irma Stout RN Position: S RN Member Role: Primary Care Nurse Care Team Related Persons Name: RIZWANA MENDOZA Name: RIGO TORIBIO Name: STAFF, [facility] Insurance Providers Guarantor name: RAGHAV TORIBIO Health Plan Information #: 1 Payer: ED [employer]ICK REG Payer Identifier: SRIDHAR Member Number: [id number] Group Number: [id number] Subscriber Identifier: [id number] Relationship to Subscriber: self Coverage Type: Self-pay (Includes applicants for insurance and Medicaid applicants) Coverage Verification Date: SRIDHAR Telecom: NA Address:
--- NOTE | 2025-04-28 18:54 | ED.GENADULT ---
HPI - General Adult General Chief complaint: General Medical Stated complaint: Not feeling well Time Seen by Provider: 04/28/25 19:08 Source: patient and RN notes reviewed Mode of arrival: ambulatory Limitations: no limitations History of Present Illness ED Provider: Maritza Krishnamurthy PA-C HPI narrative: This is a 59-year-old male, with a past medical history of anxiety, schizoaffective disorder, hypercholesterolemia, bipolar 1 disorder, who presents emergency department as he ?does not feel good?. He states that he became anxious, and left his halfway. He is unsure what caused him to feel more anxious. He states that he is feeling better. No SI or HI. No current pain. No other complaints or concerns at this time. MD complaint: Anxiety Relieving factors: none Exacerbating factors: none Associated symptoms: denies other symptoms Treatments prior to arrival: none Related Data Home Medications ?Medication ?Instructions ?Recorded ?Confirmed aripiprazole 30 mg tablet 30 mg PO DAILY 01/31/25 04/14/25 lorazepam 1 mg tablet 1 mg PO DAILY PRN Anxiety 01/31/25 04/14/25 quetiapine 100 mg tablet 100 mg PO BEDTIME 01/31/25 04/14/25 quetiapine 50 mg tablet 50 mg PO BID 01/31/25 04/14/25 olanzapine 10 mg tablet 10 mg PO TID 02/03/25 04/14/25 Previous Rx's ?Medication ?Instructions ?Recorded atorvastatin 20 mg tablet 20 mg PO QPM 90 days #90 tabs 01/10/25 tamsulosin 0.4 mg capsule 0.4 mg PO QAM 90 days #90 caps 01/10/25 cefuroxime axetil 500 mg tablet 500 mg PO BID 7 days #14 tabs 03/10/25 Allergies Allergy/AdvReac Type Severity Reaction Status Date / Time No Known Allergies (NO KNOWN Allergy Unknown UNKNOWN Verified 04/28/25 18:57 ALLERGIES) Review of Systems Review of Systems: Constitutional : No Fever, No Chills ENT/Mouth : No sore throat, No Rhinorrhea Eyes: No Eye Pain, No Swelling, No Redness Cardiovascular : No Chest Pain, No SOB Respiratory : No Cough, No Sputum Gastrointestinal : No Nausea, No Vomiting, No Diarrhea, No abdominal Pain Genitourinary : No Dysuria, No Hematuria Musculoskeletal : No joint pain, No Myalgias, No Joint Swelling Skin : No Skin Lesions Neuro : No Weakness, No Numbness, No Headache All other systems reviewed and are negative Yes all other systems are reviewed and are negative Constitutional: Constitutional: Reports as per [facility] Past Medical History Medical History Acute anxiety Smoker GERD without esophagitis Tubular adenoma of colon (~2018) Personal history of nicotine dependence Constipation Back pain Schizoaffective disorder, bipolar type Anxiety Benign prostatic hyperplasia with lower urinary tract symptoms Pure hypercholesterolemia Thought disorder Bipolar 1 disorder Mood disorder Surgical History History of colonoscopy (~04/2019) History of prostate surgery (~04/2019) History of open reduction and internal fixation (ORIF) procedure (~08/2018) Family History Family History Father Lung cancer BPH (benign prostatic hyperplasia) Mother Dementia Brother Myocardial infarction Other Mental health problem Substance abuse Social History Social History Household Members: Other Housing: Other Housing Other:: Retirement Do you presently have visiting nurse or other home services: No Alcohol intake: never Patient Tobacco Use Status: Current everyday Tobacco user Tobacco use type: Cigarette Cigarette Packs Per Day: 0.5 Cigarettes Per Day: 10.0 Years Smoked: 10 e-Cigarette/Vaping Use: Never Used Second Hand Smoke Exposure: Yes Advance Directives: No Advance Directives Information Provided: No service: No Current occupational status: employed and disabled Current occupation: [employer] Sexual orientation: Straight/Heterosexual Cognitive needs: No Hearing needs: No Vision needs: Yes Physical Exam ED Exam Exam: General: Awake, alert, and oriented X3. No acute distress. HEENT: Normal inspection CVS: Normal heart rate and rhythm. Pulses normal. Respiratory: No respiratory distress Skin: Warm, dry, no rashes noted to exposed skin. Normal skin color. Normal skin turgor. Extremities: Normal to inspection Abdomen: Abdomen is soft, non tender, nondistended Neuro: Oriented X 3. No motor deficit. No sensory deficit. Vital Signs: Vital Signs - 24 hr 04/28/25 18:56 Temperature 97.7 F Pulse Rate 84 Respiratory Rate 20 Blood Pressure 122/65 Pulse Oximetry 97 Oxygen Delivery Method Room Air BMI result Body Mass Index 20.7 Medical Decision Making Medical Decision Making MDM Narrative: This is a 9-os[age]kn-male who presents to the ER with a complaint of not feeling well . He states that his halfway is stressing him out. Reports that he did not take his night time medications. He reports that he gets anxious at night and leaves his halfway. Vital signs stable. Appears well. On arrival, vital signs within normal limits. He has no suicidal or homicidal ideation. Abdomen is soft, nontender, nondistended. He states that his symptoms have improved since his arrival to the emergency room. Discussed strict return precautions, he understands and agrees with plan. Patient stable for discharge. Differential Diagnosis Differential Diagnoses: The differential diagnosis associated with the presentation includes Anxiety, depression, suicidal ideation, homicidal ideation Discharge Plan Discharge Clinical Impression: Anxiety Patient Disposition: Home, Self-Care Instructions: Anxiety (ED) Additional Instructions: You were seen in the Emergency Department today. ?We understand that you have long standing concerns with your halfway. Given the [facility] issues you deal with we advise when you are struggling with these events and feelings that you reach out to your therapist, your counselors, and your CHD worker. You can always call [facility] Crisis [phone]. Please follow up with your outpatient providers. Please utilize your resources in the community for your longstanding issues and utilize the emergency department for emergent medical and psychiatric needs. Prescriptions: No Action quetiapine 100 mg tablet 100 mg PO BEDTIME lorazepam 1 mg tablet 1 mg PO DAILY PRN (Reason: Anxiety) aripiprazole 30 mg tablet 30 mg PO DAILY quetiapine 50 mg tablet 50 mg PO BID olanzapine 10 mg tablet 10 mg PO TID cefuroxime axetil 500 mg tablet 500 mg PO BID 7 Days Qty: 14 0RF tamsulosin 0.4 mg capsule 0.4 mg PO QAM 90 Days Qty: 90 0RF atorvastatin 20 mg tablet 20 mg PO QPM 90 Days Qty: 90 3RF Print Language: Faroese
[2025-04-28 18:56] VITALS: BP 122/65; PULSE 84; RESP 20; TEMP 36.5; O2SAT 97; BMI 20.7
[2025-04-28 19:14] VITALS: BP 122/65; PULSE 84; RESP 20; TEMP 36.5; O2SAT 97
--- OUTSIDE RECORDS SUMMARY | 2025-04-28 20:38 | XMS_ITS | Clinical Summary ---
Author Organization [facility] Address [address] [place] [address] Phone Care Team Providers Care Category Manager Name Role Phone Dk Rodriguez MD Primary Care Provider [phone]- [phone] Allergies No known active allergies Medications No known medications Encounters Date Type Department Care Team Description 04/10/2025 8:45 PM EST - 04/10/2025 10:25 PM EST [facility] Emergency [address] [place] [phone] Discharge Disposition: Home or Self Care 03/30/2025 9:37 PM EDT - 03/30/2025 11:09 PM EDT [facility] Emergency [address] [place] [phone] Discharge Disposition: Left Against Medical Advice 03/06/2025 9:24 PM EDT - 03/06/2025 9:57 PM EDT Emergency [facility] Emergency [address] [place] [phone] Discharge Disposition: Home or Self Care 02/15/2025 9:21 PM EDT - 02/15/2025 9:45 PM EDT [facility] Emergency [address] [place] [phone] Encounter for Santos catheter removal (Primary Dx) Discharge Disposition: Home or Self Care 02/14/2025 8:31 PM EDT - 02/14/2025 9:27 PM EDT [facility] Emergency [address] [place] [phone] Urinary retention (Primary Dx) Discharge Disposition: Home or Self Care 02/10/2025 9:24 PM EDT - 02/10/2025 11:43 PM EDT Emergency [facility] Emergency [address] [place] [address] Discharge Disposition: Home or Self Care 02/01/2025 8:58 PM EDT - 02/01/2025 10:49 PM EDT Emergency [facility] Emergency [address] [place] [address] Discharge Disposition: Home or Self Care 01/30/2025 8:57 PM EDT - 01/31/2025 12:33 AM EDT Emergency [facility] Emergency [address] [place] [address] Discharge Disposition: Home or Self Care 01/28/2025 9:14 PM EDT - 01/28/2025 11:28 PM EDT [facility] Emergency [address] [place] [phone] Discharge Disposition: Home or Self Care from Last 3 Months Medical History Medical History Date Comments Bipolar 1 disorder (CMS/HCC V24, CMS/HCC V28) Mood disorder (CMS/[facility] V24) Hyperactivity of bladder Social [...] this topic [place] [address] [address] MEDICARE MEDICAID - [place] Care Teams Category Manager Relationship Specialty Start Date End Date Dk Rodriguez MD [address] [place] [address] [address] [place], [place] PCP - General Internal Medicine 07/16/24
--- OUTSIDE RECORDS SUMMARY | 2025-04-28 20:38 | XMS_ITS | Encounter Summary ---
Author Organization [facility] Address [address] [place] [address] Care Team Providers Care Assistant Professor Of Drama Name Role Phone Ref, Hasnopcp Primary Care Provider Unavailabl e Encounter Details Date Type Department Care Team (Late st Contact Info) Description 01/04/2024 Community Orders [facility] EpicCare Link [address] [place] [address] Bethany Lozano, BLEACH TESTER [address] [place] [address] Social History Tobacco Use Types Packs/Day Years [...] filedocumented in this encounter Care Teams Assistant Professor Of Drama Relationship Specialty Start Date End Date Ref, Cadence DO NOT EDIT THIS RECORD VIA PROVIDER ON THE FLY PCP - General [employer] 12/30/23 documented as of this encounter
--- OUTSIDE RECORDS SUMMARY | 2025-04-28 20:38 | XMS_ITS | Clinical Summary ---
Author Organization [facility] Address [address] [place] [address] Care Team Providers Care Software Trainer Name Role Phone Ref, Hasnopcp Primary Care Provider Unavailabl e Allergies No known active allergies Medications ARIPiprazole [...] Plan (01/03/2024 2:32 PM EDT): Presents from [facility] in the setting of urinary retention [...] Plan (01/03/2024 10:49 AM EDT): Presented from [facility] with hyponatremia (initially 123). Also had [...] Plan (01/02/2024 11:43 AM EDT): Presents from [facility] in the setting of urinary retention [...] Seroquel 25 mg twice daily Presents from [facility]'s forensic unit with documented history of schizophrenia. Continue home aripiprazole 20mg daily Continue home carbamazepine 500 mg twice daily Continue home Zyprexa 15 mg nightly Continue home Seroquel 25 mg twice daily Consider psychiatry consult if concern that antipsychotic medications are causing SIADH Patient presents from [facility], requires constant observation Assessment & Plan (01/02/2024 11:43 AM EDT): Home medications: aripiprazole 20 mg daily, carbamazepine 500 mg twice daily, Zyprexa 15 mg nightly, Seroquel 25 mg twice daily Presents from [facility]'s forensic unit with documented history of schizophrenia. Continue home aripiprazole 20mg daily Continue home carbamazepine 500 mg twice daily Continue home Zyprexa 15 mg nightly Continue home Seroquel 25 mg twice daily Consider psychiatry consult if concern that antipsychotic medications are causing SIADH Patient presents from [facility], requires constant observation BPH (benign prostatic hyperplasia) 12/30/2023 Assessment & Plan (01/03/2024 2:33 PM EDT): Paperwork from the [facility] center indicates history of BPH with prior need for intermittent catheterization requiring urology evaluation in the past, records not available in our system). Per documentation from [facility] patient has seen urology at [facility] in [place]. He was started on Flomax outpatient. In [...] (01/02/2024 11:43 AM EDT): Paperwork from the [facility] indicates history of BPH with prior need for intermittent catheterization requiring urology evaluation in the past, records not available in our system). Per documentation from [facility] patient has seen urology at [facility] in [place]. He was started on Flomax outpatient. In [...] history exists Tobacco Screening 06/05/2042 01/29/2024 Insurance [facility] [id number] MEDICARE [facility] Advance Directives * Full Code (Latest Code Status on File) Date Activated Date Inactivated Comments 12/30/2023 7:22 PM 01/03/2024 8:48 PM * Presumed Full Code Date Activated Date Inactivated Comments 12/30/2023 7:00 PM 12/30/2023 7:22 PM Care Teams Software Trainer Relationship Specialty Start Date End Date Ref, Cadence DO NOT EDIT THIS RECORD VIA PROVIDER ON THE FLY PCP - General Orthopedic Shoe Fitter 12/30/23
== END 2025-04-28 19:14 | disposition home or self-care (01) ==
PROVIDERS: Emergency Provider Emergency Medicine; PCP Internal Medicine
DX: F41.9 Anxiety disorder, unspecified (principal); K21.9 Gastro-esophageal reflux disease without esophagitis; F31.9 Bipolar disorder, unspecified; F17.200 Nicotine dependence, unspecified, uncomplicated; Z71.6 Tobacco abuse counseling
CPT/HCPCS: 99282

== ENCOUNTER 2025-04-30 23:50 | Emergency (ER) | payer MEDICARE, MEDICAID, SELFPAY ==
[2025-04-30 23:54] VITALS: BP 106/62; PULSE 89; RESP 16; TEMP 36.1; O2SAT 97; BMI 21.1
--- OUTSIDE RECORDS SUMMARY | 2025-05-01 00:05 | XMS_ITS | Clinical Summary ---
Author Organization [facility] Address [address] [place] [address] Care Team Providers Care Ekg Monitor Tech Name Role Phone Ref, Hasnopcp Primary Care [...] Plan (01/03/2024 2:32 PM EDT): Presents from [facility] in the setting of urinary retention [...] Plan (01/03/2024 10:49 AM EDT): Presented from [facility] with hyponatremia (initially 123). Also had [...] Plan (01/02/2024 11:43 AM EDT): Presents from [facility] in the setting of urinary retention [...] Seroquel 25 mg twice daily Presents from [facility]'s forensic unit with documented history of schizophrenia. Continue home aripiprazole 20mg daily Continue home carbamazepine 500 mg twice daily Continue home Zyprexa 15 mg nightly Continue home Seroquel 25 mg twice daily Consider psychiatry consult if concern that antipsychotic medications are causing SIADH Patient presents from [facility], requires constant observation Assessment & Plan (01/02/2024 11:43 AM EDT): Home medications: aripiprazole 20 mg daily, carbamazepine 500 mg twice daily, Zyprexa 15 mg nightly, Seroquel 25 mg twice daily Presents from [facility]'s forensic unit with documented history of schizophrenia. Continue home aripiprazole 20mg daily Continue home carbamazepine 500 mg twice daily Continue home Zyprexa 15 mg nightly Continue home Seroquel 25 mg twice daily Consider psychiatry consult if concern that antipsychotic medications are causing SIADH Patient presents from [facility], requires constant observation BPH (benign prostatic hyperplasia) 12/30/2023 Assessment & Plan (01/03/2024 2:33 PM EDT): Paperwork from the [facility] indicates history of BPH with prior need for intermittent catheterization requiring urology evaluation in the past, records not available in our system). Per documentation from [facility] patient has seen urology at [facility] in [place]. He was started on Flomax outpatient. In [...] AM EDT): Paperwork from the [facility] indicates history of BPH with prior need for intermittent catheterization requiring urology evaluation in the past, records not available in our system). Per documentation from [facility] patient has seen urology at [facility] in [place]. He was started on Flomax outpatient. In [...] history exists Tobacco Screening 06/05/2042 01/29/2024 Insurance [place] [id number] MEDICARE [facility] Advance Directives * Full Code (Latest Code Status on File) Date Activated Date Inactivated Comments 12/30/2023 7:22 PM 01/03/2024 8:48 PM * Presumed Full Code Date Activated Date Inactivated Comments 12/30/2023 7:00 PM 12/30/2023 7:22 PM Care Teams Ekg Monitor Tech Relationship Specialty Start Date End Date Ref, Cadence DO NOT EDIT THIS RECORD VIA PROVIDER ON THE FLY PCP - General Christmas Bell Ringer 12/30/23
--- OUTSIDE RECORDS SUMMARY | 2025-05-01 00:05 | XMS_ITS | Encounter Summary ---
Author Organization [facility] Address [address] [place] [address] Care Team Providers Care Boom Cat Operator Name Role Phone Ref, Hasnopcp Primary Care Provider Unavailabl e Encounter Details Date Type Department Care Team (Late st Contact Info) Description 01/04/[address] [facility] EpicCare Link [address] [place] [address] Bethany Lozano, LEGAL NURSE CONSULTANT [address] [place] [address] Social History Tobacco Use Types Packs/Day Years [...] on filedocumented in this encounter Care Teams Boom Cat Operator Relationship Specialty Start Date End Date Ref, Cadence DO NOT EDIT THIS RECORD VIA PROVIDER ON THE FLY PCP - General Z [employer] Mainframe Systems Programmer 12/30/23 documented as of this encounter
--- OUTSIDE RECORDS SUMMARY | 2025-05-01 00:05 | XMS_ITS | Clinical Summary ---
Author Organization [facility] Address [address] [place] [address] Phone Care Team Providers Care Registrar Nurses' Registry Name Role Phone Dk Rodriguez MD Primary Care Provider [phone] Allergies No known active allergies Medications No known medications Encounters Date Type Department Care Team Description 04/10/2025 8:45 PM EST - 04/10/2025 10:25 PM EST [facility] Emergency [address] [place] [phone] Discharge Disposition: Home or Self Care 03/30/2025 9:37 PM EDT - 03/30/2025 11:09 PM EDT [facility] Emergency [address] [place] [phone] Discharge Disposition: Left Against Medical Advice 03/06/2025 9:24 PM EDT - 03/06/2025 9:[address] [facility] Emergency [address] [place] [phone] Discharge Disposition: Home or Self Care 02/15/2025 9:21 PM EDT - 02/15/2025 9:45 PM EDT [facility] Emergency [address] [place] [phone] Encounter for Santos catheter removal (Primary Dx) Discharge Disposition: Home or Self Care 02/14/2025 8:31 PM EDT - 02/14/2025 9:27 PM EDT [facility] Emergency [address] [place] [phone] Urinary retention (Primary Dx) Discharge Disposition: Home or Self Care 02/10/2025 9:24 PM EDT - 02/10/2025 11:[address] [facility] Emergency [address] [place] [phone] Discharge Disposition: Home or Self Care 02/01/2025 8:58 PM EDT - 02/01/2025 10:[address] [facility] Emergency [address] [place] [address] Discharge Disposition: Home or Self Care 01/30/2025 8:57 PM EDT - 01/31/2025 12:[address] [facility] Emergency [address] [place] [phone] Discharge Disposition: Home or Self Care from Last 3 Months Medical History Medical History Date Comments Bipolar 1 disorder ([facility] V24, [facility] V28) Mood disorder ([facility] V24) Hyperactivity of bladder Social [...] this topic [place] [id number] [id number] MEDICARE MEDICAID - [place] Care Teams Registrar Nurses' Registry Relationship Specialty Start Date End Date Dk Rodriguez MD [address] [place] [address] [address] [place], [place] PCP - General Internal Medicine 07/16/24
[2025-05-01 00:24] LABS: Appearance Urine Clear; Glucose Urine UA Negative (Negative); PH 7.0 (5.0-9.0); Specific Gravity - Urine 1.010 (1.005-1.025); UMIC TRIGGER UACC YES
[2025-05-01 00:57] LABS: MANUAL DIFF FLAG NO
[2025-05-01 00:58] LABS: Hematocrit 39.2 % (42.0-52.0); Hemoglobin 13.3 g/dl (14.0-18.0); Imm Gran Abs Auto 0.01 X10*3/uL (0.00-0.03); Imm Gran Pct Auto 0.1 % (0.0-0.4); Lymphocytes Absolute Auto 2.8 X10*3/uL (1.2-4.9); Mean Corpuscular HGB Conc 33.9 g/dl (31.0-36.0); Mean Corpuscular Hemoglobin 31.3 pg (27.0-33.0); Mean Corpuscular Volume 92.2 fL (80.0-98.0); NRBC Abs Auto 0.000 X10*3/uL (0.0-0.012); NRBC Pct Auto 0.0 /100WBC (0.0-0.2); Platelet Count 157 X10*3/uL (160-400); Red Blood Count 4.25 X10*6/uL (4.60-5.80); White Blood Count 7.0 X10*3/uL (4.8-10.8)
[2025-05-01 01:07] LABS: Alanine Aminotransferase 15 U/L (0-40); Albumin Level 3.9 g/dL (3.5-5.0); Alkaline Phosphatase 58 U/L (39-117); Anion Gap 11 (12-20); Aspartate Amino Transferase 24 U/L (5-37); Blood Urea Nitrogen 9 mg/dL (9-16); Calcium 8.7 mg/dL (8.4-10.2); Carbon Dioxide 26 mmol/L (22-29); Chloride 102 mmol/L (96-108); Creatinine Clr Calc Pharmacy 104.2; Estimated Glomerular Filt Rate > 60; Potassium 4.2 mmol/L (3.3-5.1); Sodium 135 mmol/L (135-145); Total Protein 6.4 g/dL (6.5-8.0)
--- NOTE | 2025-05-01 01:30 | ED.GENADULT ---
HPI - General Adult General Chief complaint: General Medical Stated complaint: Back Pain Time Seen by Provider: 04/30/25 23:59 Source: patient Mode of arrival: ambulatory Limitations: no limitations History of Present Illness ED Provider: Dr. Ginger Mello HPI narrative: Patient comes to the emergency room complaining of increased bladder pain. Patient denies urinary retention. Also, complaining of intermittent nausea, no vomiting or diarrhea. Patient states that his blood pain when he walks, denies any hematuria or dysuria. Denies flank pain, denies back pain. Related Data Home Medications ?Medication ?Instructions ?Recorded ?Confirmed aripiprazole 30 mg tablet 30 mg PO DAILY 01/31/25 04/14/25 lorazepam 1 mg tablet 1 mg PO DAILY PRN Anxiety 01/31/25 04/14/25 quetiapine 100 mg tablet 100 mg PO BEDTIME 01/31/25 04/14/25 quetiapine 50 mg tablet 50 mg PO BID 01/31/25 04/14/25 olanzapine 10 mg tablet 10 mg PO TID 02/03/25 04/14/25 Previous Rx's ?Medication ?Instructions ?Recorded atorvastatin 20 mg tablet 20 mg PO QPM 90 days #90 tabs 01/10/25 tamsulosin 0.4 mg capsule 0.4 mg PO QAM 90 days #90 caps 01/10/25 cefuroxime axetil 500 mg tablet 500 mg PO BID 7 days #14 tabs 03/10/25 ondansetron 4 mg disintegrating 4 mg PO Q6H PRN nausea and 05/01/25 tablet vomiting #10 tabs Allergies Allergy/AdvReac Type Severity Reaction Status Date / Time No Known Allergies (NO KNOWN Allergy Unknown UNKNOWN Verified 04/30/25 23:56 ALLERGIES) Review of Systems Review of Systems: Constitutional : No Weight loss, No Fever, No Chills, No Night Sweats, No Fatigue, No Malaise ENT/Mouth : No Hearing loss, No Ear Pain, No Nasal Congestion, No Sinus Pain, No Hoarseness, No sore throat, No Rhinorrhea, No Swallowing Difficulty Eyes: No Eye Pain, No Swelling, No Redness, No Foreign Body, No Discharge, No Vision Changes Cardiovascular : No Chest Pain, No SOB, No Dyspnea on Exertion, No Orthopnea, No Edema, No Palpitations Respiratory : No Cough, No Sputum, No Wheezing, No Smoke Exposure, No Dyspnea Gastrointestinal : Complaining of intermittent Nausea, No Vomiting, No Diarrhea, No Constipation, No abdominal Pain, No Hematochezia, No Melena Genitourinary : Complaining of chronic bladder pain Dysuria, No Urinary Frequency, No Hematuria, No Urinary Incontinence, No Urgency, No Flank Pain, No Urinary Flow Changes, No Hesitancy, denies testicular/scrotal pain Musculoskeletal : No joint pain, No Myalgias, No Joint Swelling Skin : No Skin Lesions, No rash Neuro : No Weakness, No Numbness, No Paresthesias, No Loss of Consciousness, No Dizziness, No Headache Psych : No Anxiety/Panic, No Depression, No SI/HI/AH/VH, No Social Issues, Heme/Lymph: No Bruising, No Bleeding,No Lymphadenopathy Endocrine : No Polyuria, No Polydipsia, No Temperature Intolerance [facility] Past Medical History Medical History Acute anxiety Smoker GERD without esophagitis Tubular adenoma of colon (~2018) Personal history of nicotine dependence Constipation Back pain Schizoaffective disorder, bipolar type Anxiety Benign prostatic hyperplasia with lower urinary tract symptoms Pure hypercholesterolemia Thought disorder Bipolar 1 disorder Mood disorder Surgical History History of colonoscopy (~04/2019) History of prostate surgery (~04/2019) History of open reduction and internal fixation (ORIF) procedure (~08/2018) Family History Family History Father Lung cancer BPH (benign prostatic hyperplasia) Mother Dementia Brother Myocardial infarction Other Mental health problem Substance abuse Social History Social History Household Members: Other Housing: Other Housing Other:: Care Home Do you presently have visiting nurse or other home services: No Alcohol intake: never Patient Tobacco Use Status: Current everyday Tobacco user Tobacco use type: Cigarette Cigarette Packs Per Day: 0.5 Cigarettes Per Day: 10.0 Years Smoked: 10 Smoked in Last 30 Days: No e-Cigarette/Vaping Use: Never Used Second Hand Smoke Exposure: Yes Use of substances other than those prescribed or required for medical reasons: No Advance Directives: No Advance Directives Information Provided: Yes Do you have a plan to hurt others: No Plan service: No Current occupational status: employed and disabled Current occupation: [employer] Sexual orientation: Straight/Heterosexual Cognitive needs: No Hearing needs: No Vision needs: Yes Physical Exam ED Exam Exam: Appearance: Alert. Oriented X3. No acute distress. Eyes: Pupils equal, round and reactive to light. ENT: Pharynx normal. Neck: Normal inspection. Neck supple. No lymph nodes noted. No crepitus CVS: Normal heart rate and rhythm. Pulses normal. Normal S1 and S2 Respiratory: No respiratory distress. Breath sounds normal. No Wheezing. No rales Abdomen: Soft and nontender. No rigidity. No distention. Skin: Skin warm and dry. Normal skin color. Normal skin turgor. Extremities: No lower extremity edema. No Lacerations. No Rash Neuro: Oriented X 3. No motor deficit. No sensory deficit. Moving all extremities. No slurred speech. CN 2 through 12 grossly intact Psych: calm, cooperative, normal affect Vital Signs: Vital Signs - 24 hr 04/30/25 23:54 Temperature 97.0 F Pulse Rate 89 Respiratory Rate 16 Blood Pressure 106/62 Pulse Oximetry 97 Oxygen Delivery Method Room Air BMI result Body Mass Index 21.1 Medical Decision Making Medical Decision Making [facility] Narrative: My interpretation of labs: No significant abnormality in patient's hematology or chemistry, LFTs within normal limits, urinalysis negative for UTI Differential Diagnosis Differential Diagnoses: The differential diagnosis associated with the presentation includes (UTI, chronic cystitis, anxiety) Lab Data [facility] Lab Attestation statement: I reviewed the patient's lab results. 05/01/25 00:14 05/01/25 00:14 Labs: Lab Results 05/01/25 Range/Units 00:14 WBC 7.0 (4.8-10.8) X10*3/uL RBC 4.25 L (4.60-5.80) X10*6/uL Hgb 13.3 L (14.0-18.0) g/dl Hct 39.2 L (42.0-52.0) % MCV 92.2 (80.0-98.0) fL MCH 31.3 (27.0-33.0) pg MCHC 33.9 (31.0-36.0) g/dl RDW 14.3 (11.0-16.0) % Plt Count 157 L (160-400) X10*3/uL MPV 11.3 (9.4-12.4) fL Immature Gran % (Auto) 0.1 (0.0-0.4) % Neut % (Auto) 39.7 L (45-73) % Lymph % (Auto) 40.8 H (20-40) % Island % (Auto) 14.2 H (2-11) % Eos % (Auto) 3.6 (0-4) % Baso % (Auto) 1.6 (0-2) % Lymph # (Auto) 2.8 (1.2-4.9) X10*3/uL Island # (Auto) 1.0 (0.1-1.2) X10*3/uL Eos # (Auto) 0.3 (0.0-0.4) X10*3/uL Baso # (Auto) 0.1 (0.0-0.2) X10*3/uL Abs Immat Gran (auto) 0.01 (0.00-0.03) X10*3/uL Absolute Neuts (auto) 2.8 (2.0-8.3) x10*3/uL Absolute Nucleated RBC 0.000 (0.0-0.012) X10*3/uL Nucleated RBC % (auto) 0.0 (0.0-0.2) /100WBC Sodium 135 (135-145) mmol/L Potassium 4.2 (3.3-5.1) mmol/L Chloride 102 (96-108) mmol/L Carbon Dioxide 26 (22-29) mmol/L Anion Gap 11 L (12-20) BUN 9 (9-16) mg/dL Creatinine 0.70 (0.5-1.4) mg/dL Estim Creat Clear Calc 104.2 Estimated GFR > 60 Random Glucose 69 (60-115) mg/dL Calcium 8.7 D (8.4-10.2) mg/dL Total Bilirubin 0.2 (0.0-1.0) mg/dL Direct Bilirubin < 0.2 (0.0-0.5) mg/dL AST 24 (5-37) U/L ALT 15 (0-40) U/L Alkaline Phosphatase 58 (39-117) U/L Total Protein 6.4 L (6.5-8.0) g/dL Albumin 3.9 (3.5-5.0) g/dL Urine Color Yellow Urine Appearance Clear Urine pH 7.0 (5.0-9.0) Ur Specific [place] 1.010 (1.005-1.025) Urine Protein Negative (Neg-Trace) mg/dL Urine Glucose (UA) Negative (Negative) mg/dL Urine Ketones Negative (Negative) mg/dL Urine Blood Negative (Negative) Urine Nitrite Negative (Negative) Ur Leukocyte Esterase Trace H (Negative) Urine RBC 0-2 (0-2) /HPF Urine WBC 0-5 (0-5) /HPF Ur Squamous Epith Cells 0-2 (0-2) /HPF Urine Bacteria None Seen (None Seen) Hyaline Casts 0-2 (0-2) /LPF Discharge Plan Discharge Clinical Impression: Chronic cystitis Patient Disposition: Home, Self-Care Instructions: Pelvic Pain in Men (ED) Additional Instructions: Please follow-up with your primary care physician tomorrow. If you have any worsening or new symptoms, please return to the emergency room or call 911 Prescriptions: New ondansetron 4 mg tablet,disintegrating 4 mg PO Q6H PRN (Reason: nausea and vomiting) Qty: 10 0RF No Action quetiapine 100 mg tablet 100 mg PO BEDTIME lorazepam 1 mg tablet 1 mg PO DAILY PRN (Reason: Anxiety) aripiprazole 30 mg tablet 30 mg PO DAILY quetiapine 50 mg tablet 50 mg PO BID olanzapine 10 mg tablet 10 mg PO TID cefuroxime axetil 500 mg tablet 500 mg PO BID 7 Days Qty: 14 0RF tamsulosin 0.4 mg capsule 0.4 mg PO QAM 90 Days Qty: 90 0RF atorvastatin 20 mg tablet 20 mg PO QPM 90 Days Qty: 90 3RF Print Language: Bhutanese
[2025-05-01 01:38] VITALS: BP 106/62; PULSE 89; RESP 16; TEMP 36.1; O2SAT 97
== END 2025-05-01 01:38 | disposition home or self-care (01) ==
PROVIDERS: Emergency Provider Emergency Medicine; PCP Internal Medicine
DX: N30.20 Other chronic cystitis without hematuria (principal); M54.9 Dorsalgia, unspecified; R11.0 Nausea; F17.200 Nicotine dependence, unspecified, uncomplicated; Z71.6 Tobacco abuse counseling
CPT/HCPCS: 36415; 80048; 80076; 81001; 85025; 87086; 99283; 99284

== ENCOUNTER 2025-05-01 22:03 | Emergency (ER) | payer MEDICARE, MEDICAID, SELFPAY ==
[2025-05-01 22:08] VITALS: PULSE 88; RESP 16; TEMP 36.9; O2SAT 99; BMI 21.4
--- OUTSIDE RECORDS SUMMARY | 2025-05-01 22:16 | XMS_ITS | Clinical Summary ---
Author Organization [facility] Address [address] [place] [address] Phone Care Team Providers Care Director Traffic And Planning Name Role Phone Dk Rodriguez MD Primary Care Provider [phone]- [phone] Allergies No known active allergies Medications No known medications Encounters Date Type Department Care Team Description 04/10/2025 8:45 PM EST - 04/10/2025 10:25 PM EST [facility] Emergency [address] [place] [phone] Discharge Disposition: Home or Self Care 03/30/2025 9:37 PM EDT - 03/30/2025 11:09 PM EDT [facility] Emergency [address] [place] [phone] Discharge Disposition: Left Against Medical Advice 03/06/2025 9:24 PM EDT - 03/06/2025 9:[address] [facility] Emergency [address] [place] [phone] Discharge Disposition: Home or Self Care 02/15/2025 9:21 PM EDT - 02/15/2025 9:45 PM EDT [facility] Emergency [address] [place] [phone] Encounter for Santos catheter removal (Primary Dx) Discharge Disposition: Home or Self Care 02/14/2025 8:31 PM EDT - 02/14/2025 9:27 PM EDT [facility] Emergency [address] [place] [phone] Urinary retention (Primary Dx) Discharge Disposition: Home or Self Care 02/10/2025 9:24 PM EDT - 02/10/2025 11:[address] [facility] Emergency [address] [place] [phone] Discharge Disposition: Home or Self Care 02/01/2025 8:58 PM EDT - 02/01/2025 10:[address] [facility] Emergency [address] [place] [phone] Discharge Disposition: Home or Self Care 01/30/2025 8:57 PM EDT - 01/31/2025 12:[address] [facility] Emergency [address] [place] [phone] Discharge Disposition: Home or Self Care from Last 3 Months Medical History Medical History Date Comments Bipolar 1 disorder ([facility] V24, [facility] V28) Mood disorder ([facility] V24) Hyperactivity of [...] this topic [place] [id number] [id number] MEDICARE MEDICAID - [place] Care Teams Director Traffic And Planning Relationship Specialty Start Date End Date Dk Rodriguez MD [address] [place] [address] [address] [place], [place] PCP - General Internal Medicine 07/16/24
--- OUTSIDE RECORDS SUMMARY | 2025-05-01 22:16 | XMS_ITS | Encounter Summary ---
Author Organization [facility] Address [address] [place] [address] Care Team Providers Care Hard Metals Hand Engraver Name Role Phone Ref, Hasnopcp Primary Care Provider Unavailabl e Encounter Details Date Type Department Care Team (Late st Contact Info) Description 01/04/2024 Community Orders [facility] EpicCare Link [address] [place] [address] Bethany Lozano, ADVERTISING OPERATIONS COORDINATOR [address] [place] [address] Social History Tobacco Use Types Packs/Day Years [...] on filedocumented in this encounter Care Teams Hard Metals Hand Engraver Relationship Specialty Start Date End Date Ref, Cadence DO NOT EDIT THIS RECORD VIA PROVIDER ON THE FLY PCP - General Finish Specialist 12/30/23 documented as of this encounter
--- OUTSIDE RECORDS SUMMARY | 2025-05-01 22:16 | XMS_ITS | Clinical Summary ---
Author Organization [facility] Address [address] [place] [address] Care Team Providers Care Water Operator Name Role Phone Ref, Hasnopcp Primary [...] Plan (01/03/2024 2:32 PM EDT): Presents from [facility] in the setting of [...] Plan (01/03/2024 10:49 AM EDT): Presented from [facility] with hyponatremia (initially 123). Also [...] Plan (01/02/2024 11:43 AM EDT): Presents from [facility] in the setting of [...] Seroquel 25 mg twice daily Presents from [facility]'s forensic unit with documented history of schizophrenia. Continue home aripiprazole 20mg daily Continue home carbamazepine 500 mg twice daily Continue home Zyprexa 15 mg nightly Continue home Seroquel 25 mg twice daily Consider psychiatry consult if concern that antipsychotic medications are causing SIADH Patient presents from [facility], requires constant observation Assessment & Plan (01/02/2024 11:43 AM EDT): Home medications: aripiprazole 20 mg daily, carbamazepine 500 mg twice daily, Zyprexa 15 mg nightly, Seroquel 25 mg twice daily Presents from [facility]'s forensic unit with documented history of schizophrenia. Continue home aripiprazole 20mg daily Continue home carbamazepine 500 mg twice daily Continue home Zyprexa 15 mg nightly Continue home Seroquel 25 mg twice daily Consider psychiatry consult if concern that antipsychotic medications are causing SIADH Patient presents from [facility], requires constant observation BPH (benign prostatic hyperplasia) 12/30/2023 Assessment & Plan (01/03/2024 2:33 PM EDT): Paperwork from the [facility] center indicates history of BPH with prior need for intermittent catheterization requiring urology evaluation in the past, records not available in our system). Per documentation from [facility] patient has seen urology at [facility] in [place]. He was started on Flomax outpatient. In [...] (01/02/2024 11:43 AM EDT): Paperwork from the [facility] indicates history of BPH with prior need for intermittent catheterization requiring urology evaluation in the past, records not available in our system). Per documentation from [facility] patient has seen urology at [facility] in [place]. He was started on Flomax outpatient. In [...] history exists Tobacco Screening 06/05/2042 01/29/2024 [place] [address] MEDICARE [facility] Advance Directives * Full Code (Latest Code Status on File) Date Activated Date Inactivated Comments 12/30/2023 7:22 PM 01/03/2024 8:48 PM * Presumed Full Code Date Activated Date Inactivated Comments 12/30/2023 7:00 PM 12/30/2023 7:22 PM Care Teams Water Operator Relationship Specialty Start Date End Date Ref, Cadence DO NOT EDIT THIS RECORD VIA PROVIDER ON THE FLY PCP - General Retail Brand Ambassador 12/30/23
--- NOTE | 2025-05-01 22:37 | ED_ITS ---
HPI - General Adult General Chief complaint: Abdominal Pain Stated complaint: Lower abd and back pain Time Seen by Provider: 05/01/25 22:14 Source: patient and old records reviewed Mode of arrival: ambulatory Limitations: no limitations History of Present Illness ED Provider: NATALIE MCKAY narrative: 59-year-old male with past medical history of GERD, neurogenic bladder who self catheterization 3 times a day, BPH, hypercholesterolemia, schizoaffective disorder who [facility] he frequently presents here with complaints of urinary symptoms and states he wants to have a Santos catheter as he can not be at this [facility] having to do recurrent self catheterization. He then states his bladder is going to explode he does not want to . I asked him how often he is catheterizing himself he states twice a day. I then question if his urologist anddoctor recommended this but he states he in fact does it 3 times a day. He is very vague and anxious. He is requesting a Santos catheter I told him that his bladder only has 343 I offered to check labs to check his kidney function he is refusing. He has stable VS and no fever. He states it is making his back hurt. He is refusing labs. he has had his kidney function checked 3 times since April 19 each were normal. he was able to produce urine and give us a urine sample complaint: urinary problem Onset (ago): year(s) Location: pelvis Radiation: back Severity: mild Quality: aching Pain Consistency: intermittent Relieving factors: other ( temporary catheterization) Exacerbating factors: none Associated symptoms: denies other symptoms Treatments prior to arrival: none Related Data Home Medications ?Medication ?Instructions ?Recorded ?Confirmed aripiprazole 30 mg tablet 30 mg PO DAILY 01/31/2504/05 lorazepam 1 mg tablet 1 mg PO DAILY PRN Anxiety 04/14/25 quetiapine 100 mg tablet 100 mg PO BEDTIME 01/31/25 1 06/14/24 quetiapine 50 mg tablet 50 mg PO BID 01/31/25 olanzapine 10 mg tablet 10 mg PO TID 02/03/25 Previous Rx's ?Medication ?Instructions ?Recorded atorvastatin 20 mg tablet 20 mg PO QPM 90 days #90 tab s 01/10/25 tamsulosin 0.4 mg capsule 0.4 mg PO QAM 90 days #90 ca ps 01/10/25 cefuroxime axetil 500 mg tablet 500 mg PO BID 7 days # 14 tabs 03/10/25 ondansetron 4 mg disintegrating 4 mg PO Q6H PRN nausea and 05/01/25 tablet vomiting #10 tabs Allergies Allergy/AdvReac Type Severity Reaction Status Date / Time No Known Allergies (NO KNOWN Allergy Unknown UNKNOWN Verified 05/01/25 22:09 ALLERGIES) Review of Systems Review of Systems: Constitutional : No Fever, No Chills, No Fatigue ENT/Mouth : No sore throat, No Rhinorrhea Eyes: No Eye Pain, No Swelling, No Redness Cardiovascular : No Chest Pain, No SOB, No Dyspnea on Exertion Respiratory : No Cough, No Sputum Gastrointestinal : No Nausea, No Vomiting, No Diarrhea, No abdominal Pain Genitourinary : No Dysuria, No Urinary Frequency, No Hematuria, positive reten Musculoskeletal : No joint pain, No Myalgias, No Joint Swelling Skin : No Skin Lesions, No rash All other systems reviewed and are negative Yes all other systems are reviewed and are negative [facility] Past Medical History Attestation statement: The following information was validated with the patient. Source: old records reviewed Medical History Acute anxiety Smoker GERD without esophagitis Tubular adenoma of colon (~2018) Personal history of nicotine dependence Constipation Back pain Schizoaffective disorder, bipolar type Anxiety Benign prostatic hyperplasia with lower urinary tract symptoms Pure hypercholesterolemia Thought disorder Bipolar 1 disorder Mood disorder Surgical History History of colonoscopy (~04/2019) History of prostate surgery (~04/2019) History of open reduction and internal fixation (ORIF) procedure (~08/2018) Family History Family History Father Lung cancer BPH (benign prostatic hyperplasia) Mother Dementia Brother Myocardial infarction Other Mental health problem Substance abuse Social History Social History Household Members: Other Housing: Other Housing Other:: Custodial Do you presently have visiting nurse or other home services: No Alcohol intake: never Patient Tobacco Use Status: Current everyday Tobacco user Tobacco use type: Cigarette Cigarette Packs Per Day: 0.5 Cigarettes Per Day: 10.0 Years Smoked: 10 e-Cigarette/Vaping Use: Never Used Second Hand Smoke Exposure: Yes Advance Directives: No Advance Directives Information Provided: No service: No Current occupational status: employed and disabled Current occupation: [employer] Sexual orientation: Straight/Heterosexual Cognitive needs: No Hearing needs: No Vision needs: Yes Physical Exam ED Vital Signs: Vital Signs - 24 hr 05/01/25 22:08 05/01/25 22:47 05/01/25 22:57 Temperature 98.4 F 97.8 F Pulse Rate 88 68 Respiratory Rate 16 16 Blood Pressure 130/68 130/68 Pulse Oximetry 99 99 Oxygen Delivery Method Room Air BMI result Body Mass Index 21.4 Appearance: Alert. Oriented X3. No acute distress. anxious, hyperverbal Eyes: Pupils equal, round and reactive to light. ENT: Pharynx normal. Neck: Normal inspection. Neck supple. CVS: Normal heart rate and rhythm. Pulses normal. Respiratory: No respiratory distress. Breath sounds normal. Abdomen: Soft and nontender. he can not palpate an enlarged bladder Skin: Skin warm and dry. Normal skin color. Normal skin turgor. Extremities: No lower extremity edema. No calf ttp Neuro: Oriented X 3. No motor deficit. No sensory deficit. CN2-12 intact. steady gait walked here no issue Medical Decision Making Medical Decision Making [facility] Narrative: 59-year-old male with past medical history of GERD, neurogenic bladder who self catheterization 3 times a day, BPH, hypercholesterolemia, schizoaffective disorder here with complaint of recurrent urinary retention this is why he is supposed to self cath I am not sure how often he is doing it based off what he tells me. He states he has low abdominal pain and back pain. He has no nausea, fevers, blood in urine. He is refusing all labs. He is demanding a Santos I do not feel that it is warranted given he has self catheterization at home, he has no severe retention. He is refusing any workup other than wanting Santos catheter. I do not feel it is warranted Differential Diagnosis Differential Diagnoses: The differential diagnosis associated with the presentation includes chronic retention Admission/Observation Consideration of admission/observation: Escalation of care including admission/observation considered should be managed as an outpatient Lab Data [facility] Lab Attestation statement: I reviewed the patient's lab results. urine has WBCs but no bacteria we will wait on culture Labs: Lab Results 05/01/25 Range/Units 22:34 Urine Color Yellow Urine Appearance Clear Urine pH 7.0 (5.0-9.0) Ur Specific [place] 1.010 (1.005-1.025) Urine Protein Negative (Neg-Trace) mg/dL Urine Glucose (UA) Negative (Negative) mg/dL Urine Ketones Negative (Negative) mg/dL Urine Blood Negative (Negative) Urine Nitrite Negative (Negative) Ur Leukocyte Esterase Small (1+) H (Negative) Urine RBC 0-2 (0-2) /HPF Urine WBC 11-20 H (0-5) /HPF Ur Squamous Epith Cells 0-2 (0-2) /HPF Urine Bacteria None Seen (None Seen) Hyaline Casts 0-2 (0-2) /LPF External Record Review External record reviewed: Outpatient record, Prior outpatient labs and Prior outpatient radiology Social Determinants Patient?s care significantly limited by Social Determinants of Health including: Problems related to primary support group Discharge Plan Discharge Clinical Impression: Neurogenic bladder Patient Disposition: Home, Self-Care Instructions: Neurogenic Bladder (ED) Additional Instructions: you refused blood work to test your kidneys You only had 343 in your bladder on scan your urine did not have an infection You should be following up with your primary care doctor and urologist for this issue Santos catheters put you at risk for infection You were seen in the Emergency Department today. ?We understand that you have long standing concerns with your [facility]. 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 You can always call [facility] Crisis [phone]. Please follow up with your outpatient providers. Please utilize your resources in the community for your longstanding issues and utilize the emergency department for emergent medical and psychiatric needs. Prescriptions: No Action quetiapine 100 mg tablet 100 mg PO BEDTIME lorazepam 1 mg tablet 1 mg PO DAILY PRN (Reason: Anxiety) aripiprazole 30 mg tablet 30 mg PO DAILY quetiapine 50 mg tablet 50 mg PO BID olanzapine 10 mg tablet 10 mg PO TID ondansetron 4 mg tablet,disintegrating 4 mg PO Q6H PRN (Reason: nausea and vomiting) Qty: 10 0RF cefuroxime axetil 500 mg tablet 500 mg PO BID 7 Days Qty: 14 0RF tamsulosin 0.4 mg capsule 0.4 mg PO QAM 90 Days Qty: 90 0RF atorvastatin 20 mg tablet 20 mg PO QPM 90 Days Qty: 90 3RF Interventions: ED Discharge Assessment Last Done: 05/01/25 22:57 Discharge Date/Time: 05/01/25 23:01 Print Language: Amharic
[2025-05-01 22:40] LABS: Appearance Urine Clear; Glucose Urine UA Negative (Negative); PH 7.0 (5.0-9.0); Specific Gravity - Urine 1.010 (1.005-1.025); UMIC TRIGGER UACC YES
[2025-05-01 22:45] LABS: UACC Culture Trigger YES
[2025-05-01 22:47] VITALS: BP 130/68
[2025-05-01 22:57] VITALS: BP 130/68; PULSE 68; RESP 16; TEMP 36.6; O2SAT 99
== END 2025-05-01 23:01 | disposition home or self-care (01) ==
PROVIDERS: Emergency Provider Emergency Medicine; PCP Internal Medicine
DX: N31.9 Neuromuscular dysfunction of bladder, unspecified (principal)
CPT/HCPCS: 81001; 87086

== ENCOUNTER 2025-05-02 21:37 | Emergency (ER) | payer MEDICARE, MEDICAID, SELFPAY ==
[2025-05-02 21:43] VITALS: BP 105/70; PULSE 64; RESP 16; TEMP 36.9; O2SAT 98; BMI 23.6
--- OUTSIDE RECORDS SUMMARY | 2025-05-02 21:54 | XMS_ITS | Clinical Summary ---
Author Organization [facility] Address [address] [place] [address] Care Team Providers Care Director Of Analytical Development Name Role Phone Ref, Hasnopcp Primary Care [...] Plan (01/03/2024 2:32 PM EDT): Presents from [facility] in the setting of urinary [...] Plan (01/03/2024 10:49 AM EDT): Presented from [facility] with hyponatremia (initially 123). Also [...] Plan (01/02/2024 11:43 AM EDT): Presents from [facility] in the setting of urinary [...] mg twice daily Presents from [facility]'s forensic unit with documented history of schizophrenia. Continue home aripiprazole 20mg daily Continue home carbamazepine 500 mg twice daily Continue home Zyprexa 15 mg nightly Continue home Seroquel 25 mg twice daily Consider psychiatry consult if concern that antipsychotic medications are causing SIADH Patient presents from [facility], requires constant observation Assessment & Plan (01/02/2024 11:43 AM EDT): Home medications: aripiprazole 20 mg daily, carbamazepine 500 mg twice daily, Zyprexa 15 mg nightly, Seroquel 25 mg twice daily Presents from [facility]'s forensic unit with documented history of schizophrenia. Continue home aripiprazole 20mg daily Continue home carbamazepine 500 mg twice daily Continue home Zyprexa 15 mg nightly Continue home Seroquel 25 mg twice daily Consider psychiatry consult if concern that antipsychotic medications are causing SIADH Patient presents from [facility], requires constant observation BPH (benign prostatic hyperplasia) 12/30/2023 Assessment & Plan (01/03/2024 2:33 PM EDT): Paperwork from the [facility] indicates history of BPH with prior need for intermittent catheterization requiring urology evaluation in the past, records not available in our system). Per documentation from [facility] patient has seen urology at [facility] in [place]. He was started on Flomax outpatient. In [...] AM EDT): [facility] history of BPH with prior need for intermittent catheterization requiring urology evaluation in the past, records not available in our system). Per documentation from [facility] patient has seen urology at [facility] in [place]. He was started on Flomax outpatient. In [...] history exists Tobacco Screening 06/05/2042 01/29/2024 [place] [address] MEDICARE [facility] Advance Directives * Full Code (Latest Code Status on File) Date Activated Date Inactivated Comments 12/30/2023 7:22 PM 01/03/2024 8:48 PM * Presumed Full Code Date Activated Date Inactivated Comments 12/30/2023 7:00 PM 12/30/2023 7:22 PM Care Teams Director Of Analytical Development Relationship Specialty Start Date End Date Ref, Cadence DO NOT EDIT THIS RECORD VIA PROVIDER ON THE FLY PCP - General Thread Roller 12/30/23
--- OUTSIDE RECORDS SUMMARY | 2025-05-02 21:54 | XMS_ITS | Clinical Summary ---
Author Organization [facility] Address [address] [place] [address] Phone Care Team Providers Care Pump And Blower Operator Name Role Phone Dk Rodriguez MD Primary Care Provider [phone] Allergies No known active allergies Medications No known medications Encounters Date Type Department Care Team Description 04/10/2025 8:45 PM EST - 04/10/2025 10:25 PM EST [facility] Emergency [address] [place] [phone] Discharge Disposition: Home or Self Care 03/30/2025 9:37 PM EDT - 03/30/2025 11:09 PM EDT [facility] Emergency [address] [place] [phone] Discharge Disposition: Left Against Medical Advice 03/06/2025 9:24 PM EDT - 03/06/2025 9:[address] [facility] Emergency [address] [place] [phone] Discharge Disposition: Home or Self Care 02/15/2025 9:21 PM EDT - 02/15/2025 9:45 PM EDT [facility] Emergency [address] [place] [phone] Encounter for Santos catheter removal (Primary Dx) Discharge Disposition: Home or Self Care 02/14/2025 8:31 PM EDT - 02/14/2025 9:27 PM EDT [facility] Emergency [address] [place] [phone] Urinary retention (Primary Dx) Discharge Disposition: Home or Self Care 02/10/2025 9:24 PM EDT - 02/10/2025 11:[address] [facility] Emergency [address] [place] [phone] Discharge Disposition: Home or Self Care 02/01/2025 8:58 PM EDT - 02/01/2025 10:[address] [facility] Emergency [address] [place] [phone] Discharge Disposition: Home or Self Care 01/30/2025 8:57 PM EDT - 01/31/2025 12:[address] [facility] Emergency [address] [place] [phone] Discharge Disposition: Home or Self Care from Last 3 Months Medical History Medical History Date Comments Bipolar 1 disorder ([facility] V24, [facility] V28) Mood disorder ([facility] V24) Hyperactivity of bladder Social History Tobacco [...] age to complete this topic [place] [id number] [address] MEDICARE MEDICAID - [place] Care Teams Pump And Blower Operator Relationship Specialty Start Date End Date Dk Rodriguez MD [address] [place] [address] [address] [place], [place] PCP - General Internal Medicine 07/16/24
--- OUTSIDE RECORDS SUMMARY | 2025-05-02 21:54 | XMS_ITS | Encounter Summary ---
Author Organization [facility] Address [address] [place] [address] Care Team Providers Care Dairy Lab Technician Name Role Phone Ref, Hasnopcp Primary Care Provider Unavailabl e Encounter Details Date Type Department Care Team (Late st Contact Info) Description 01/04/2024 Community Orders [facility] EpicCare Link [address] [place] [address] Bethany Lozano, PATIENT FLOW COORDINATOR [address] [place] [address] Social History Tobacco Use Types Packs/Day Years [...] filedocumented in this encounter Care Teams Dairy Lab Technician Relationship Specialty Start Date End Date Ref, Cadence DO NOT EDIT THIS RECORD VIA PROVIDER ON THE FLY PCP - General Toolroom Checker 12/30/23 documented as of this encounter
[2025-05-02 22:06] LABS: Appearance Urine Clear; Glucose Urine UA Negative (Negative); PH 6.5 (5.0-9.0); Specific Gravity - Urine <= 1.005 (1.005-1.025); UMIC TRIGGER UACC YES
--- NOTE | 2025-05-02 23:02 | ED.GENADULT ---
HPI - General Adult General Chief complaint: General Medical Stated complaint: CRISIS Time Seen by Provider: 05/02/25 21:43 Source: patient, RN notes reviewed and old records reviewed Mode of arrival: ambulatory Limitations: no limitations History of Present Illness ED Provider: Skip MCKAY narrative: 59-year-old male with past medical history significant for neurogenic bladder who self caths, GERD, schizoaffective disorder presenting for evaluation of bladder pain. The patient feels as though his bladder is distended and he needs a catheter. The patient does self cath at baseline and has no difficulty doing this. The patient is specifically requesting a catheter He is unable to explain how long he has had this lower abdominal/pelvic pain Per nursing staff, the patient frequently requests a catheter that is unnecessary and acts inappropriately towards female nursing staff Related Data Home Medications ?Medication ?Instructions ?Recorded ?Confirmed aripiprazole 30 mg tablet 30 mg PO DAILY 01/31/25 04/14/25 lorazepam 1 mg tablet 1 mg PO DAILY PRN Anxiety 01/31/25 04/14/25 quetiapine 100 mg tablet 100 mg PO BEDTIME 01/31/25 04/14/25 quetiapine 50 mg tablet 50 mg PO BID 01/31/25 04/14/25 olanzapine 10 mg tablet 10 mg PO TID 02/03/25 04/14/25 Previous Rx's ?Medication ?Instructions ?Recorded atorvastatin 20 mg tablet 20 mg PO QPM 90 days #90 tabs 01/10/25 tamsulosin 0.4 mg capsule 0.4 mg PO QAM 90 days #90 caps 01/10/25 cefuroxime axetil 500 mg tablet 500 mg PO BID 7 days #14 tabs 03/10/25 ondansetron 4 mg disintegrating 4 mg PO Q6H PRN nausea and 05/01/25 tablet vomiting #10 tabs Allergies Allergy/AdvReac Type Severity Reaction Status Date / Time No Known Allergies (NO KNOWN Allergy Unknown UNKNOWN Verified 05/02/25 21:44 ALLERGIES) Review of Systems Constitutional: Constitutional: Denies body ache(s), Denies chills and Denies fever(s) ENT: Denies vertigo and Denies dizziness Cardiovascular: Cardiovascular: Denies chest pain and Denies dyspnea on exertion Respiratory: Respiratory: Denies cough and Denies dyspnea on exertion Gastrointestinal: Gastrointestinal: Reports abdominal pain, Denies nausea and Denies vomiting Genitourinary: Genitourinary: Denies dysuria, Denies flank pain, Denies penile discharge and Denies scrotal swelling Musculoskeletal: Musculoskeletal: Denies back pain Integumentary/Breasts: Skin/Breast: Denies rash Neurologic: Denies vertigo and Denies dizziness PMFSH Past Medical History Medical History Acute anxiety Smoker GERD without esophagitis Tubular adenoma of colon (~2018) Personal history of nicotine dependence Constipation Back pain Schizoaffective disorder, bipolar type Anxiety Benign prostatic hyperplasia with lower urinary tract symptoms Pure hypercholesterolemia Thought disorder Bipolar 1 disorder Mood disorder Surgical History History of colonoscopy (~04/2019) History of prostate surgery (~04/2019) History of open reduction and internal fixation (ORIF) procedure (~08/2018) Family History Family History Father Lung cancer BPH (benign prostatic hyperplasia) Mother Dementia Brother Myocardial infarction Other Mental health problem Substance abuse Social History Social History Household Members: Other Housing: Other Housing Other:: Retirement Do you presently have visiting nurse or other home services: No Alcohol intake: never Patient Tobacco Use Status: Current everyday Tobacco user Tobacco use type: Cigarette Cigarette Packs Per Day: 0.5 Cigarettes Per Day: 10.0 Years Smoked: 10 e-Cigarette/Vaping Use: Never Used Second Hand Smoke Exposure: Yes Advance Directives: No Advance Directives Information Provided: No service: No Current occupational status: employed and disabled Current occupation: [employer] Sexual orientation: Straight/Heterosexual Cognitive needs: No Hearing needs: No Vision needs: Yes Physical Exam ED Vital Signs: Vital Signs - 24 hr 05/02/25 21:43 Temperature 98.4 F Pulse Rate 64 Respiratory Rate 16 Blood Pressure 105/70 Pulse Oximetry 98 Oxygen Delivery Method Room Air BMI result Body Mass Index 23.6 Const General: healthy appearing, comfortable, no acute distress, alert and awake Nutritional Appearance: well nourished Orientation/consciousness: patient oriented x3 HENMT Head: Yes normocephalic and Yes atraumatic Eyes Eyelids: Yes eyelids normal Conjunctivae: conjunctivae normal Sclerae: sclerae normal Corneas: corneas normal Pupils: Equal, round and reactive pupils present EOM: EOMs intact bilaterally Neck Neck: Yes full ROM Resp Effort & Inspection: normal respiratory effort, able to speak in complete sentences and not labored Cardio Rate: regular rate Rhythm: regular rhythm GI Inspection: No distended Palpation (GI): Soft to palpation, not firm, no guarding and not rigid Skin General skin exam: elasticity normal Neuro General: patient oriented x3 Cranial nerves: Yes Equal, round and reactive pupils present and Yes Bilaterally intact EOM present Extrem Other: Moving all extremities well without any obvious deformities Medical Decision Making Medical Decision Making [facility] Narrative: 59-year-old male presents for evaluation of bladder pain. The patient is requesting a catheter, however he is able to self catheterize himself and does this multiple times every day. When the patient was given a straight catheter to allow him to self cath he then decided that he would rather urinate into a cup and does not need to be catheterized. His urinalysis resulted and does not show any signs of active infection. When I went to discuss this with the patient he reported to me that he is not here for abdominal or bladder pain but he is here because ?I do not feel well when I am walking, I get dizzy. I asked the patient why he did not bring this up to me initially when I evaluated him and he was unable to provide an answer. I explained to the patient that if he is here for dizziness and not abdominal pain and bladder pain then we should get an EKG and basic labs. At this point, the patient became upset ultimately decided to leave. He ambulated with a steady, even gait Differential Diagnosis Differential Diagnoses: The differential diagnosis associated with the presentation includes Abdominal pain UTI Urinary retention Neurogenic bladder Lab Data [facility] Lab Attestation statement: I reviewed the patient's lab results. Labs: Lab Results 05/02/25 Range/Units 21:59 Urine Color Yellow Urine Appearance Clear Urine pH 6.5 (5.0-9.0) Ur Specific [place] <= 1.005 (1.005-1.025) Urine Protein Negative (Neg-Trace) mg/dL Urine Glucose (UA) Negative (Negative) mg/dL Urine Ketones Negative (Negative) mg/dL Urine Blood Negative (Negative) Urine Nitrite Negative (Negative) Ur Leukocyte Esterase Trace H (Negative) Urine RBC 0-2 (0-2) /HPF Urine WBC 0-5 (0-5) /HPF Ur Squamous Epith Cells 0-2 (0-2) /HPF Urine Bacteria None Seen (None Seen) Hyaline Casts 0-2 (0-2) /LPF Discharge Plan Discharge Clinical Impression: Neurogenic bladder Patient Disposition: Home, Self-Care Instructions: Neurogenic Bladder (ED) Prescriptions: No Action quetiapine 100 mg tablet 100 mg PO BEDTIME lorazepam 1 mg tablet 1 mg PO DAILY PRN (Reason: Anxiety) aripiprazole 30 mg tablet 30 mg PO DAILY quetiapine 50 mg tablet 50 mg PO BID olanzapine 10 mg tablet 10 mg PO TID ondansetron 4 mg tablet,disintegrating 4 mg PO Q6H PRN (Reason: nausea and vomiting) Qty: 10 0RF cefuroxime axetil 500 mg tablet 500 mg PO BID 7 Days Qty: 14 0RF tamsulosin 0.4 mg capsule 0.4 mg PO QAM 90 Days Qty: 90 0RF atorvastatin 20 mg tablet 20 mg PO QPM 90 Days Qty: 90 3RF Print Language: Libyan
[2025-05-02 23:19] VITALS: BP 105/70; PULSE 64; RESP 16; TEMP 36.9; O2SAT 98
== END 2025-05-02 23:19 | disposition home or self-care (01) ==
PROVIDERS: Physician Assistant; Emergency Provider Student in an Organized Health Care Education/Training Program
DX: N31.9 Neuromuscular dysfunction of bladder, unspecified (principal); R39.89 Other symptoms and signs involving the genitourinary system
CPT/HCPCS: 81001; 99282

== ENCOUNTER 2025-05-05 19:57 | Emergency (ER) | payer MEDICARE, MEDICAID, SELFPAY ==
[2025-05-05 20:04] VITALS: BP 109/65; PULSE 80; RESP 18; TEMP 36.4; O2SAT 99; BMI 20.7
--- OUTSIDE RECORDS SUMMARY | 2025-05-05 20:13 | XMS_ITS | Encounter Summary ---
Author Organization [facility] Address [address] [place] [address] Care Team Providers Care Chief Investigator Name Role Phone Ref, Hasnopcp Primary Care Provider Unavailabl e Encounter Details Date Type Department Care Team (Late st Contact Info) Description 01/04/2024 Community Orders [facility] EpicCare Link [address] [place] [address] Bethany Lozano, [employer] [address] [place] [address] Social History Tobacco Use Types Packs/Day Years [...] on filedocumented in this encounter Care Teams Chief Investigator Relationship Specialty Start Date End Date Ref, Cadence DO NOT EDIT THIS RECORD VIA PROVIDER ON THE FLY PCP - General Store Receiver 12/30/23 documented as of this encounter
--- OUTSIDE RECORDS SUMMARY | 2025-05-05 20:13 | XMS_ITS | Clinical Summary ---
Author Organization [facility] Address [address] [place] [address] Care Team Providers Care Personnel Training Officer Name Role Phone Ref, Hasnopcp Primary Care [...] Plan (01/03/2024 2:32 PM EDT): Presents from [facility] in the setting of urinary retention [...] Plan (01/02/2024 11:43 AM EDT): Presents from [facility] in the setting of urinary retention [...] Seroquel 25 mg twice daily Presents from [facility]'s forensic unit with documented history of schizophrenia. Continue home aripiprazole 20mg daily Continue home carbamazepine 500 mg twice daily Continue home Zyprexa 15 mg nightly Continue home Seroquel 25 mg twice daily Consider psychiatry consult if concern that antipsychotic medications are causing SIADH Patient presents from [facility], requires constant observation Assessment & Plan (01/02/2024 11:43 AM EDT): Home medications: aripiprazole 20 mg daily, carbamazepine 500 mg twice daily, Zyprexa 15 mg nightly, Seroquel 25 mg twice daily Presents from [facility]'s forensic unit with documented history of schizophrenia. Continue home aripiprazole 20mg daily Continue home carbamazepine 500 mg twice daily Continue home Zyprexa 15 mg nightly Continue home Seroquel 25 mg twice daily Consider psychiatry consult if concern that antipsychotic medications are causing SIADH Patient presents from [facility], requires constant observation BPH (benign prostatic hyperplasia) 12/30/2023 Assessment & Plan (01/03/2024 2:33 PM EDT): Paperwork from the [facility] center indicates history of BPH with prior need for intermittent catheterization requiring urology evaluation in the past, records not available in our system). Per documentation from [facility] patient has seen urology at [facility] in [place]. He was started on Flomax outpatient. In [...] EDT): Paperwork from the [facility] indicates history of BPH with prior need for intermittent catheterization requiring urology evaluation in the past, records not available in our system). Per documentation from [facility] patient has seen urology at [facility] in [place]. He was started on Flomax outpatient. In [...] history exists Tobacco Screening 06/05/2042 01/29/2024 Insurance * Guarantor: Balbir Lyon Account Type Relation to Patient Date of Phone Billing Address Personal/Family Self 1965 [address] [facility] [place] [address] [id number] MEDICARE [facility] Advance Directives * Full Code (Latest Code Status on File) Date Activated Date Inactivated Comments 12/30/2023 7:22 PM 01/03/2024 8:48 PM * Presumed Full Code Date Activated Date Inactivated Comments 12/30/2023 7:00 PM 12/30/2023 7:22 PM Care Teams Personnel Training Officer Relationship Specialty Start Date End Date Ref, Cadence DO NOT EDIT THIS RECORD VIA PROVIDER ON THE FLY PCP - General Coke Inspector 12/30/23
--- NOTE | 2025-05-05 20:18 | ED.GENADULT ---
HPI - General Adult General Chief complaint: General Medical Stated complaint: Crisis Time Seen by Provider: 05/05/25 20:17 Source: patient Limitations: no limitations History of Present Illness ED Provider: Samantha Santos PA-C HPI narrative: 59-year-old male with a history of schizoaffective disorder, bipolar type, anxiety, mood disorder, BPH who require self catheterization, who presents with multiple complaints. Patient states he thinks that his ?bladder is inflamed?. He also is feeling disrespected at his prison. Denies back pain, abdominal pain, nausea vomiting, fever, dysuria or hematuria. Related Data Home Medications ?Medication ?Instructions ?Recorded ?Confirmed aripiprazole 30 mg tablet 30 mg PO DAILY 01/31/25 04/14/25 lorazepam 1 mg tablet 1 mg PO DAILY PRN Anxiety 01/31/25 04/14/25 quetiapine 100 mg tablet 100 mg PO BEDTIME 01/31/25 04/14/25 quetiapine 50 mg tablet 50 mg PO BID 01/31/25 04/14/25 olanzapine 10 mg tablet 10 mg PO TID 02/03/25 04/14/25 Previous Rx's ?Medication ?Instructions ?Recorded atorvastatin 20 mg tablet 20 mg PO QPM 90 days #90 tabs 01/10/25 tamsulosin 0.4 mg capsule 0.4 mg PO QAM 90 days #90 caps 01/10/25 cefuroxime axetil 500 mg tablet 500 mg PO BID 7 days #14 tabs 03/10/25 ondansetron 4 mg disintegrating 4 mg PO Q6H PRN nausea and 05/01/25 tablet vomiting #10 tabs Allergies Allergy/AdvReac Type Severity Reaction Status Date / Time No Known Allergies (NO KNOWN Allergy Unknown UNKNOWN Verified 05/05/25 20:06 ALLERGIES) Review of Systems Review of Systems: Yes all other systems are reviewed and are negative Constitutional: Constitutional: Denies fatigue and Denies fever(s) Cardiovascular: Cardiovascular: Denies chest pain and Denies dyspnea Respiratory: Respiratory: Denies dyspnea Gastrointestinal: Gastrointestinal: Denies abdominal pain, Denies nausea and Denies vomiting Genitourinary: Genitourinary: Denies dysuria and Denies flank pain Musculoskeletal: Musculoskeletal: Denies back pain Endocrine: Endocrine: Denies fatigue PMF Past Medical History Attestation statement: The following information was validated with the patient. Medical History Acute anxiety Smoker GERD without esophagitis Tubular adenoma of colon (~2018) Personal history of nicotine dependence Constipation Back pain Schizoaffective disorder, bipolar type Anxiety Benign prostatic hyperplasia with lower urinary tract symptoms Pure hypercholesterolemia Thought disorder Bipolar 1 disorder Mood disorder Surgical History History of colonoscopy (~04/2019) History of prostate surgery (~04/2019) History of open reduction and internal fixation (ORIF) procedure (~08/2018) Family History Family History Father Lung cancer BPH (benign prostatic hyperplasia) Mother Dementia Brother Myocardial infarction Other Mental health problem Substance abuse Social History Social History Household Members: Other Housing: Other Housing Other:: [facility] Do you presently have visiting nurse or other home services: No Alcohol intake: never Patient Tobacco Use Status: Current everyday Tobacco user Tobacco use type: Cigarette Cigarette Packs Per Day: 0.5 Cigarettes Per Day: 10.0 Years Smoked: 10 e-Cigarette/Vaping Use: Never Used Second Hand Smoke Exposure: Yes Advance Directives: No Advance Directives Information Provided: Yes service: No Current occupational status: employed and disabled Current occupation: [employer] Sexual orientation: Straight/Heterosexual Cognitive needs: No Hearing needs: No Vision needs: Yes Physical Exam ED Vital Signs: Vital Signs - 24 hr 05/05/25 20:04 Temperature 97.5 F Pulse Rate 80 Respiratory Rate 18 Blood Pressure 109/65 Pulse Oximetry 99 Oxygen Delivery Method Room Air BMI result Body Mass Index 20.7 Const Other: Alert well-appearing Orientation/consciousness: patient oriented x3 Resp Effort & Inspection: normal respiratory effort Cardio Other: Normal peripheral perfusion Skin Other: Warm dry no rash Neuro General: patient oriented x3, gait normal, no focal motor deficits and CN's II-XI intact bilaterally Psych Other: Cooperative Medical Decision Making Medical Decision Making MDM Narrative: 59-year-old male with a history of schizoaffective disorder, bipolar type, anxiety, mood disorder, BPH who require self catheterization, who presents with multiple complaints. Patient states he thinks that his ?bladder is inflamed?. He also is feeling disrespected at his prison. Denies back pain, abdominal pain, nausea vomiting, fever, dysuria or hematuria. Problem: Psychiatric illness, BPH History: Per patient I have considered the following differential diagnoses: Urinary retention, UTI, pyelonephritis, renal colic Plan: Patient chronically retains, he is well known to the emergency room, he is a high utilizer resources. He has a proximally he has 600 mL in the bladder, he was able to self-catheterize, we will send his urine to be sure it is not infected. The patient has no associated symptoms to suggest renal colic, UTI or pyelo I have independently reviewed the following tests: Labs: Urine not infected Differential Diagnosis Differential Diagnoses: The differential diagnosis associated with the presentation includes See [facility] Admission/Observation Consideration of admission/observation: Escalation of care including admission/observation considered Not applicable Lab Data [facility] Lab Attestation statement: I reviewed the patient's lab results. Labs: Lab Results 05/05/25 Range/Units 20:50 Urine Color Yellow Urine Appearance Clear Urine pH 7.0 (5.0-9.0) Ur Specific [place] 1.010 (1.005-1.025) Urine Protein Negative (Neg-Trace) mg/dL Urine Glucose (UA) Negative (Negative) mg/dL Urine Ketones Negative (Negative) mg/dL Urine Blood Negative (Negative) Urine Nitrite Negative (Negative) Ur Leukocyte Esterase Trace H (Negative) Urine RBC 0-2 (0-2) /HPF Urine WBC 0-5 (0-5) /HPF Ur Squamous Epith Cells 0-2 (0-2) /HPF Urine Bacteria None Seen (None Seen) Hyaline Casts 0-2 (0-2) /LPF Discharge Plan Discharge Clinical Impression: Urinary retention Patient Disposition: Home, Self-Care Instructions: Urinary Retention in Men (ED) Additional Instructions: You were seen for your chronic urinary retention. You were able to successfully self-catheterize and alleviate the volume. Your urine is not infected. Continue to follow up with your healthcare providers as an outpatient. Prescriptions: No Action quetiapine 100 mg tablet 100 mg PO BEDTIME lorazepam 1 mg tablet 1 mg PO DAILY PRN (Reason: Anxiety) aripiprazole 30 mg tablet 30 mg PO DAILY quetiapine 50 mg tablet 50 mg PO BID olanzapine 10 mg tablet 10 mg PO TID ondansetron 4 mg tablet,disintegrating 4 mg PO Q6H PRN (Reason: nausea and vomiting) Qty: 10 0RF cefuroxime axetil 500 mg tablet 500 mg PO BID 7 Days Qty: 14 0RF tamsulosin 0.4 mg capsule 0.4 mg PO QAM 90 Days Qty: 90 0RF atorvastatin 20 mg tablet 20 mg PO QPM 90 Days Qty: 90 3RF Print Language: Ivorian
[2025-05-05 21:03] LABS: Appearance Urine Clear; Glucose Urine UA Negative (Negative); PH 7.0 (5.0-9.0); Specific Gravity - Urine 1.010 (1.005-1.025); UMIC TRIGGER UACC YES
[2025-05-05 21:37] VITALS: BP 109/65; PULSE 80; RESP 18; TEMP 36.4; O2SAT 99
== END 2025-05-05 21:38 | disposition home or self-care (01) ==
PROVIDERS: Physician Assistant Medical; Emergency Provider Emergency Medicine Emergency Medical Services
DX: R33.9 Retention of urine, unspecified (principal); F25.0 Schizoaffective disorder, bipolar type
CPT/HCPCS: 51798; 81001; 99283

== ENCOUNTER 2025-05-06 19:33 | Emergency (ER) | payer MEDICARE, MEDICAID, SELFPAY ==
[2025-05-06 19:46] VITALS: BP 143/73; PULSE 82; RESP 18; TEMP 36.3; O2SAT 97; BMI 21.0
--- NOTE | 2025-05-06 19:47 | ED.GENADULT ---
HPI - General Adult General Chief complaint: Urogenital-Male Stated complaint: Doesn't feel good Time Seen by Provider: 05/06/25 21:16 Related Data Home Medications ?Medication ?Instructions ?Recorded ?Confirmed aripiprazole 30 mg tablet 30 mg PO DAILY 01/31/25 04/14/25 lorazepam 1 mg tablet 1 mg PO DAILY PRN Anxiety 01/31/25 04/14/25 quetiapine 100 mg tablet 100 mg PO BEDTIME 01/31/25 04/14/25 quetiapine 50 mg tablet 50 mg PO BID 01/31/25 04/14/25 olanzapine 10 mg tablet 10 mg PO TID 02/03/25 04/14/25 Previous Rx's ?Medication ?Instructions ?Recorded atorvastatin 20 mg tablet 20 mg PO QPM 90 days #90 tabs 01/10/25 tamsulosin 0.4 mg capsule 0.4 mg PO QAM 90 days #90 caps 01/10/25 cefuroxime axetil 500 mg tablet 500 mg PO BID 7 days #14 tabs 03/10/25 ondansetron 4 mg disintegrating 4 mg PO Q6H PRN nausea and 05/01/25 tablet vomiting #10 tabs Allergies Allergy/AdvReac Type Severity Reaction Status Date / Time No Known Allergies (NO KNOWN Allergy Unknown UNKNOWN Verified 05/06/25 19:51 ALLERGIES) [facility] Past Medical History Medical History Acute anxiety Smoker GERD without esophagitis Tubular adenoma of colon (~2018) Personal history of nicotine dependence Constipation Back pain Schizoaffective disorder, bipolar type Anxiety Benign prostatic hyperplasia with lower urinary tract symptoms Pure hypercholesterolemia Thought disorder Bipolar 1 disorder Mood disorder Surgical History History of colonoscopy (~04/2019) History of prostate surgery (~04/2019) History of open reduction and internal fixation (ORIF) procedure (~08/2018) Family History Family History Father Lung cancer BPH (benign prostatic hyperplasia) Mother Dementia Brother Myocardial infarction Other Mental health problem Substance abuse Social History Social History Household Members: Other Housing: Other Housing Other:: [facility]iary Do you presently have visiting nurse or other home services: No Alcohol intake: never Patient Tobacco Use Status: Current everyday Tobacco user Tobacco use type: Cigarette Cigarette Packs Per Day: 0.5 Cigarettes Per Day: 10.0 Years Smoked: 10 e-Cigarette/Vaping Use: Never Used Second Hand Smoke Exposure: Yes Advance Directives: No Advance Directives Information Provided: No service: No Current occupational status: employed and disabled 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 Full HPI, ROS, assessment and treatment plan per primary provider in the Main ED. Hx: 59 yo M here w/ I can't handle my bladder disorder in the house right now . reports concern that they will not put a schafer in. her hasnt voided in 3 hours. denies abd pain. reports constipation. Plan: bladder scan, labs UA Reevaluation(s) Reevaluation #1: Patient left the emergency department before myself or any of the other clinicians could review or explain physical exam findings, test results, need or lack there of for additional testing, treatment options, or a treatment plan. Medical Decision Making Lab Data 05/06/25 20:02 05/06/25 20:02 Labs: Lab Results 05/06/25 Range/Units 20:02 WBC 5.1 (4.8-10.8) X10*3/uL RBC 4.14 L (4.60-5.80) X10*6/uL Hgb 13.2 L (14.0-18.0) g/dl Hct 38.4 L (42.0-52.0) % MCV 92.8 (80.0-98.0) fL MCH 31.9 (27.0-33.0) pg MCHC 34.4 (31.0-36.0) g/dl RDW 14.2 (11.0-16.0) % Plt Count 126 L (160-400) X10*3/uL MPV 10.9 (9.4-12.4) fL Immature Gran % (Auto) 0.2 (0.0-0.4) % Neut % (Auto) 44.0 L (45-73) % Lymph % (Auto) 34.6 (20-40) % [place] % (Auto) 15.6 H (2-11) % Eos % (Auto) 3.7 (0-4) % Baso % (Auto) 1.9 (0-2) % Lymph # (Auto) 1.8 (1.2-4.9) X10*3/uL [place] # (Auto) 0.8 (0.1-1.2) X10*3/uL Eos # (Auto) 0.2 (0.0-0.4) X10*3/uL Baso # (Auto) 0.1 (0.0-0.2) X10*3/uL Abs Immat Gran (auto) 0.01 (0.00-0.03) X10*3/uL Absolute Neuts (auto) 2.3 (2.0-8.3) x10*3/uL Absolute Nucleated RBC 0.000 (0.0-0.012) X10*3/uL Nucleated RBC % (auto) 0.0 (0.0-0.2) /100WBC Sodium 135 (135-145) mmol/L Potassium 4.5 (3.3-5.1) mmol/L Chloride 103 (96-108) mmol/L Carbon Dioxide 22 (22-29) mmol/L Anion Gap 15 (12-20) BUN 12 (9-16) mg/dL Creatinine 0.92 (0.5-1.4) mg/dL Estim Creat Clear Calc 78.8 Estimated GFR > 60 Random Glucose 70 (60-115) mg/dL Calcium 8.7 (8.4-10.2) mg/dL Magnesium 1.7 (1.6-2.6) mg/dL Total Bilirubin 0.3 (0.0-1.0) mg/dL AST 21 (5-37) U/L ALT 12 (0-40) U/L Alkaline Phosphatase 54 (39-117) U/L Total Protein 6.3 L (6.5-8.0) g/dL Albumin 3.8 (3.5-5.0) g/dL Discharge Plan Discharge Clinical Impression: Bladder pain Patient Disposition: Left W/O Completing Treatment Prescriptions: No Action quetiapine 100 mg tablet 100 mg PO BEDTIME lorazepam 1 mg tablet 1 mg PO DAILY PRN (Reason: Anxiety) aripiprazole 30 mg tablet 30 mg PO DAILY quetiapine 50 mg tablet 50 mg PO BID olanzapine 10 mg tablet 10 mg PO TID ondansetron 4 mg tablet,disintegrating 4 mg PO Q6H PRN (Reason: nausea and vomiting) Qty: 10 0RF cefuroxime axetil 500 mg tablet 500 mg PO BID 7 Days Qty: 14 0RF tamsulosin 0.4 mg capsule 0.4 mg PO QAM 90 Days Qty: 90 0RF atorvastatin 20 mg tablet 20 mg PO QPM 90 Days Qty: 90 3RF Discharge Date/Time: 05/06/25 23:18
--- OUTSIDE RECORDS SUMMARY | 2025-05-06 20:04 | XMS_ITS | Encounter Summary ---
Author Organization [facility] Address [address] [place] [address] Care Team Providers Care Communications Tower Technician Name Role Phone Ref, Hasnopcp Primary Care Provider Unavailabl e Encounter Details Date Type Department Care Team (Late st Contact Info) Description 01/04/2024 Community Orders [facility] EpicCare Link [address] [place] [address] Bethany Lozano, TUBING ASSEMBLER [address] [place] [address] Social History Tobacco Use Types Packs/Day Years [...] filedocumented in this encounter Care Teams Communications Tower Technician Relationship Specialty Start Date End Date Ref, Cadence DO NOT EDIT THIS RECORD VIA PROVIDER ON THE FLY PCP - General Guide Foreign Tour 12/30/23 documented as of this encounter
--- OUTSIDE RECORDS SUMMARY | 2025-05-06 20:04 | XMS_ITS | Clinical Summary ---
Author Organization [facility] Address [address] [place] [address] Care Team Providers Care Information Technology Analyst Name Role Phone Ref, Hasnopcp Primary Care [...] Plan (01/03/2024 2:32 PM EDT): Presents from [facility] in the setting of urinary [...] Plan (01/03/2024 10:49 AM EDT): Presented from [facility] with hyponatremia (initially 123). Also had [...] Plan (01/02/2024 11:43 AM EDT): Presents from [facility] in the setting of urinary [...] Seroquel 25 mg twice daily Presents from [facility]'s forensic unit with documented history of schizophrenia. Continue home aripiprazole 20mg daily Continue home carbamazepine 500 mg twice daily Continue home Zyprexa 15 mg nightly Continue home Seroquel 25 mg twice daily Consider psychiatry consult if concern that antipsychotic medications are causing SIADH Patient presents from [facility], requires constant observation Assessment & Plan (01/02/2024 11:43 AM EDT): Home medications: aripiprazole 20 mg daily, carbamazepine 500 mg twice daily, Zyprexa 15 mg nightly, Seroquel 25 mg twice daily Presents from [facility]'s forensic unit with documented history of schizophrenia. Continue home aripiprazole 20mg daily Continue home carbamazepine 500 mg twice daily Continue home Zyprexa 15 mg nightly Continue home Seroquel 25 mg twice daily Consider psychiatry consult if concern that antipsychotic medications are causing SIADH Patient presents from [facility], requires constant observation BPH (benign prostatic hyperplasia) 12/30/2023 Assessment & Plan (01/03/2024 2:33 PM EDT): Paperwork from the [facility] indicates history of BPH with prior need for intermittent catheterization requiring urology evaluation in the past, records not available in our system). Per documentation from [facility] patient has seen urology at [facility] in [place]. He was started on Flomax outpatient. In [...] available in our system). Per documentation from [facility] patient has seen urology at [facility] in [place]. He was started on Flomax outpatient. In [...] history exists Tobacco Screening 06/05/2042 01/29/2024 Insurance [facility] [id number] MEDICARE [facility] Advance Directives * Full Code (Latest Code Status on File) Date Activated Date Inactivated Comments 12/30/2023 7:22 PM 01/03/2024 8:48 PM * Presumed Full Code Date Activated Date Inactivated Comments 12/30/2023 7:00 PM 12/30/2023 7:22 PM Care Teams Information Technology Analyst Relationship Specialty Start Date End Date Ref, Cadence DO NOT EDIT THIS RECORD VIA PROVIDER ON THE FLY PCP - General Rectification Printer 12/30/23
[2025-05-06 20:26] LABS: MANUAL DIFF FLAG NO
[2025-05-06 20:30] LABS: Hematocrit 38.4 % (42.0-52.0); Hemoglobin 13.2 g/dl (14.0-18.0); Imm Gran Abs Auto 0.01 X10*3/uL (0.00-0.03); Imm Gran Pct Auto 0.2 % (0.0-0.4); Lymphocytes Absolute Auto 1.8 X10*3/uL (1.2-4.9); Mean Corpuscular HGB Conc 34.4 g/dl (31.0-36.0); Mean Corpuscular Hemoglobin 31.9 pg (27.0-33.0); Mean Corpuscular Volume 92.8 fL (80.0-98.0); NRBC Abs Auto 0.000 X10*3/uL (0.0-0.012); NRBC Pct Auto 0.0 /100WBC (0.0-0.2); Platelet Count 126 X10*3/uL (160-400); Red Blood Count 4.14 X10*6/uL (4.60-5.80); White Blood Count 5.1 X10*3/uL (4.8-10.8)
[2025-05-06 20:42] LABS: Alanine Aminotransferase 12 U/L (0-40); Albumin Level 3.8 g/dL (3.5-5.0); Alkaline Phosphatase 54 U/L (39-117); Anion Gap 15 (12-20); Aspartate Amino Transferase 21 U/L (5-37); Blood Urea Nitrogen 12 mg/dL (9-16); Calcium 8.7 mg/dL (8.4-10.2); Carbon Dioxide 22 mmol/L (22-29); Chloride 103 mmol/L (96-108); Creatinine Clr Calc Pharmacy 78.8; Estimated Glomerular Filt Rate > 60; Magnesium 1.7 mg/dL (1.6-2.6); Potassium 4.5 mmol/L (3.3-5.1); Sodium 135 mmol/L (135-145); Total Protein 6.3 g/dL (6.5-8.0)
== END 2025-05-06 23:18 | disposition left against medical advice (07) ==
PROVIDERS: Physician Assistant Medical; Emergency Provider Emergency Medicine; PCP Internal Medicine
DX: R39.89 Other symptoms and signs involving the genitourinary system (principal); Z53.29 Procedure and treatment not carried out because of patient's decision for other reasons; N40.0 Benign prostatic hyperplasia without lower urinary tract symptoms; E78.00 Pure hypercholesterolemia, unspecified; K21.9 Gastro-esophageal reflux disease without esophagitis; F25.9 Schizoaffective disorder, unspecified; F17.200 Nicotine dependence, unspecified, uncomplicated; Z79.899 Other long term (current) drug therapy; Z71.6 Tobacco abuse counseling
CPT/HCPCS: 36415; 51701; 80053; 83735; 85025; 99281; 99283

== ENCOUNTER 2025-05-09 21:07 | Emergency (ER) | payer MEDICARE, MEDICAID, SELFPAY ==
[2025-05-09 21:24] VITALS: BP 120/70; PULSE 74; RESP 16; TEMP 36.4; O2SAT 97; BMI 20.5
--- OUTSIDE RECORDS SUMMARY | 2025-05-09 21:33 | XMS_ITS | Encounter Summary ---
Author Organization [facility] Address [address] [place] [address] Care Team Providers Care Concrete Panel Installer Name Role Phone Ref, Hasnopcp Primary Care Provider Unavailabl e Encounter Details Date Type Department Care Team (Late st Contact Info) Description 01/04/2024 Community Orders [facility] EpicCare Link [address] [place] [address] Bethany Lozano, LINDERMAN OPERATOR [address] [place] [address] Social History Tobacco Use Types Packs/Day Years [...] filedocumented in this encounter Care Teams Concrete Panel Installer Relationship Specialty Start Date End Date Ref, Cadence DO NOT EDIT THIS RECORD VIA PROVIDER ON THE FLY PCP - General Publication Distributor 12/30/23 documented as of this encounter
--- OUTSIDE RECORDS SUMMARY | 2025-05-09 21:34 | XMS_ITS | Clinical Summary ---
Author Organization [facility] Address [address] [place] [address] Care Team Providers Care Inside Sales Manager Name Role Phone Ref, Hasnopcp Primary Care [...] Plan (01/03/2024 2:32 PM EDT): Presents from [facility] in the setting of urinary retention [...] Plan (01/02/2024 11:43 AM EDT): Presents from [facility] in the setting of urinary retention [...] Seroquel 25 mg twice daily Presents from [facility]'s forensic unit with documented history of schizophrenia. Continue home aripiprazole 20mg daily Continue home carbamazepine 500 mg twice daily Continue home Zyprexa 15 mg nightly Continue home Seroquel 25 mg twice daily Consider psychiatry consult if concern that antipsychotic medications are causing SIADH Patient presents from [facility], requires constant observation Assessment & Plan (01/02/2024 11:43 AM EDT): Home medications: aripiprazole 20 mg daily, carbamazepine 500 mg twice daily, Zyprexa 15 mg nightly, Seroquel 25 mg twice daily Presents from [facility]'s forensic unit with documented history of schizophrenia. Continue home aripiprazole 20mg daily Continue home carbamazepine 500 mg twice daily Continue home Zyprexa 15 mg nightly Continue home Seroquel 25 mg twice daily Consider psychiatry consult if concern that antipsychotic medications are causing SIADH Patient presents from [facility], requires constant observation BPH (benign prostatic hyperplasia) 12/30/2023 Assessment & Plan (01/03/2024 2:33 PM EDT): Paperwork from the [facility] center indicates history of BPH with prior need for intermittent catheterization requiring urology evaluation in the past, records not available in our system). Per documentation from [facility] patient has seen urology at [facility] in [place]. He was started on Flomax outpatient. In [...] EDT): Paperwork from the [facility] indicates history of BPH with prior need for intermittent catheterization requiring urology evaluation in the past, records not available in our system). Per documentation from [facility] patient has seen urology at [facility] in [place]. He was started on Flomax outpatient. In [...] history exists Tobacco Screening 06/05/2042 01/29/2024 [place] [id number] MEDICARE [facility] Advance Directives * Full Code (Latest Code Status on File) Date Activated Date Inactivated Comments 12/30/2023 7:22 PM 01/03/2024 8:48 PM * Presumed Full Code Date Activated Date Inactivated Comments 12/30/2023 7:00 PM 12/30/2023 7:22 PM Care Teams Inside Sales Manager Relationship Specialty Start Date End Date Ref, Cadence DO NOT EDIT THIS RECORD VIA PROVIDER ON THE FLY PCP - General Prospecting Driller 12/30/23
--- NOTE | 2025-05-09 23:29 | ED.GENADULT ---
HPI - General Adult General Chief complaint: Psychiatric Symptoms Stated complaint: Having issues at his [facility] Time Seen by Provider: 05/09/25 21:57 Source: patient, RN notes reviewed and old records reviewed Mode of arrival: ambulatory Limitations: no limitations History of Present Illness ED Provider: Skip MCKAY narrative: 39-year-old male with past medical history significant for schizoaffective disorder, anxiety, mood disorder, BPH occasionally require self catheterization presents for evaluation of my bladder is filling up. The patient reports that his bladder has been feeling for several hours and he does not have the urge to be. He describes a pressure but denies any pain he reports that he is fed up with his fci because they keep yelling at me. Denies any fevers, chills. No other complaints or concerns at this time pain Of note, the patient is frequently visit in his emergency department for similar complaints and being upset at his fci Related Data Home Medications ?Medication ?Instructions ?Recorded ?Confirmed aripiprazole 30 mg tablet 30 mg PO DAILY 01/31/25 04/14/25 lorazepam 1 mg tablet 1 mg PO DAILY PRN Anxiety 01/31/25 04/14/25 quetiapine 100 mg tablet 100 mg PO BEDTIME 01/31/25 04/14/25 quetiapine 50 mg tablet 50 mg PO BID 01/31/25 04/14/25 olanzapine 10 mg tablet 10 mg PO TID 02/03/25 04/14/25 Previous Rx's ?Medication ?Instructions ?Recorded atorvastatin 20 mg tablet 20 mg PO QPM 90 days #90 tabs 01/10/25 tamsulosin 0.4 mg capsule 0.4 mg PO QAM 90 days #90 caps 01/10/25 cefuroxime axetil 500 mg tablet 500 mg PO BID 7 days #14 tabs 03/10/25 ondansetron 4 mg disintegrating 4 mg PO Q6H PRN nausea and 05/01/25 tablet vomiting #10 tabs Allergies Allergy/AdvReac Type Severity Reaction Status Date / Time No Known Allergies (NO KNOWN Allergy Unknown UNKNOWN Verified 05/09/25 21:28 ALLERGIES) Review of Systems Constitutional: Constitutional: Denies body ache(s), Denies chills, Denies fever(s) and Denies headache(s) Eyes: Eyes: Denies blurry vision ENT: Denies vertigo, Denies dizziness and Denies headache(s) Cardiovascular: Cardiovascular: Denies chest pain and Denies dyspnea on exertion Respiratory: Respiratory: Denies cough and Denies dyspnea on exertion Gastrointestinal: Gastrointestinal: Denies abdominal pain, Denies nausea and Denies vomiting Genitourinary: Genitourinary: Reports oliguria, Reports difficulty urinating, Denies dysuria and Denies flank pain Musculoskeletal: Musculoskeletal: Denies back pain Neurologic: Denies vertigo, Denies dizziness and Denies headache(s) [facility] Past Medical History Medical History Acute anxiety Smoker GERD without esophagitis Tubular adenoma of colon (~2018) Personal history of nicotine dependence Constipation Back pain Schizoaffective disorder, bipolar type Anxiety Benign prostatic hyperplasia with lower urinary tract symptoms Pure hypercholesterolemia Thought disorder Bipolar 1 disorder Mood disorder Surgical History History of colonoscopy (~04/2019) History of prostate surgery (~04/2019) History of open reduction and internal fixation (ORIF) procedure (~08/2018) Family History Family History Father Lung cancer BPH (benign prostatic hyperplasia) Mother Dementia Brother Myocardial infarction Other Mental health problem Substance abuse Social History Social History Household Members: Other Housing: Other Housing Other:: Prison Do you presently have visiting nurse or other home services: No Alcohol intake: never Patient Tobacco Use Status: Current everyday Tobacco user Tobacco use type: Cigarette Cigarette Packs Per Day: 0.5 Cigarettes Per Day: 10.0 Years Smoked: 10 e-Cigarette/Vaping Use: Never Used Second Hand Smoke Exposure: Yes Advance Directives: No Advance Directives Information Provided: No Do you have a plan to hurt others: No Plan service: No Current occupational status: employed and disabled Current occupation: [employer] Sexual orientation: Straight/Heterosexual Cognitive needs: No Hearing needs: No Vision needs: Yes Physical Exam ED Vital Signs: Vital Signs - 24 hr 05/09/25 21:24 Temperature 97.5 F Pulse Rate 74 Respiratory Rate 16 Blood Pressure 120/70 Pulse Oximetry 97 Oxygen Delivery Method Room Air BMI result Body Mass Index 20.5 Const General: healthy appearing, comfortable, no acute distress, alert and awake Nutritional Appearance: well nourished Orientation/consciousness: patient oriented x3 HENMT Head: Yes normocephalic and Yes atraumatic Eyes Eyelids: Yes eyelids normal Conjunctivae: conjunctivae normal Sclerae: sclerae normal Corneas: corneas normal Pupils: Equal, round and reactive pupils present EOM: EOMs intact bilaterally Neck Neck: Yes full ROM Resp Effort & Inspection: normal respiratory effort, able to speak in complete sentences and not labored GI Inspection: No distended Palpation (GI): Soft to palpation, not firm, nontender, no guarding and not rigid Skin General skin exam: elasticity normal Neuro General: patient oriented x3 Cranial nerves: Yes Equal, round and reactive pupils present and Yes Bilaterally intact EOM present Cognition (Neuro): normal cognition Extrem Other: Moving all extremities well without any obvious deformities Course Reevaluation(s) Reevaluation #1: patient had a bladder scan that showed about a L of urine in his bladder. He is able to straight cath himself for about a L of urine without any difficulty. He denies any dysuria or blood in the urine, we will defer urinalysis at this time. Patient instructed to return if he develops any fevers or symptoms of a UTI. Time: 00:17 Medical Decision Making Medical Decision Making MDM Narrative: 59-year-old male past medical history as above presents for evaluation of multiple complaints. He does complain that he feels like he can not urinate as he has not urinated a few hours and does not have the urge to do so. He denies any lower abdominal pain does not appear distended. We will obtain a bladder scan to see if he is truly and retention. Seen here on April 24 of May 02 of May 05 and May 06 for similar complaints. On 05/02 he was able to urinate on his own, on May 05 he was able to self catheterize without any difficulty. Differential Diagnosis Differential Diagnoses: The differential diagnosis associated with the presentation includes urinary retention UTI Neurogenic bladder BPH Schizoaffective disorder Discharge Plan Discharge Clinical Impression: Acute on chronic urinary retention Patient Disposition: Home, Self-Care Instructions: Urinary Retention in Men (ED) Additional Instructions: you should be straight cathing at least twice per day return for new or worsening symptoms, especially develop a fever Prescriptions: No Action quetiapine 100 mg tablet 100 mg PO BEDTIME lorazepam 1 mg tablet 1 mg PO DAILY PRN (Reason: Anxiety) aripiprazole 30 mg tablet 30 mg PO DAILY quetiapine 50 mg tablet 50 mg PO BID olanzapine 10 mg tablet 10 mg PO TID ondansetron 4 mg tablet,disintegrating 4 mg PO Q6H PRN (Reason: nausea and vomiting) Qty: 10 0RF cefuroxime axetil 500 mg tablet 500 mg PO BID 7 Days Qty: 14 0RF tamsulosin 0.4 mg capsule 0.4 mg PO QAM 90 Days Qty: 90 0RF atorvastatin 20 mg tablet 20 mg PO QPM 90 Days Qty: 90 3RF Print Language: [place]
[2025-05-10 00:48] VITALS: BP 120/70; PULSE 74; RESP 16; TEMP 36.4; O2SAT 97
== END 2025-05-10 01:12 | disposition home or self-care (01) ==
PROVIDERS: Emergency Provider Emergency Medicine; PCP Internal Medicine
DX: F25.9 Schizoaffective disorder, unspecified (principal); R33.9 Retention of urine, unspecified; F41.9 Anxiety disorder, unspecified; F17.210 Nicotine dependence, cigarettes, uncomplicated; Z79.899 Other long term (current) drug therapy
CPT/HCPCS: 99283

== ENCOUNTER 2025-05-11 17:51 | Emergency (ER) | payer MEDICARE, MEDICAID, SELFPAY ==
--- NOTE | 2025-05-11 18:07 | ED.PSYCH ---
HPI - Psych General Chief Complaint: General Medical Stated Complaint: crisis Time Seen by Provider: 05/11/25 18:12 Source: patient, RN notes reviewed and old records reviewed Mode of arrival: ambulatory History of Present Illness ED Provider: Adrienne Blue PA-C HPI Narrative: 59-year-old male with a past medical history of anxiety, GERD, schizoaffective disorder bipolar type, mood disorder, BPH occasionally requiring self catheterization, presenting to the ED today stating he is unhappy with his alf. states he did not take any of his nighttime medications & just left his alf due to increased stress. Denies SI/ HI. Also reports his bladder being full. States he was here a few days ago and he had a lot of urine in his bladder. States he does not like to self cath because it is painful. Denies fever or chills. Related Data Home Medications ?Medication ?Instructions ?Recorded ?Confirmed aripiprazole 30 mg tablet 30 mg PO DAILY 01/31/25 04/14/25 lorazepam 1 mg tablet 1 mg PO DAILY PRN Anxiety 01/31/25 04/14/25 quetiapine 100 mg tablet 100 mg PO BEDTIME 01/31/25 04/14/25 quetiapine 50 mg tablet 50 mg PO BID 01/31/25 04/14/25 olanzapine 10 mg tablet 10 mg PO TID 02/03/25 04/14/25 Previous Rx's ?Medication ?Instructions ?Recorded atorvastatin 20 mg tablet 20 mg PO QPM 90 days #90 tabs 01/10/25 tamsulosin 0.4 mg capsule 0.4 mg PO QAM 90 days #90 caps 01/10/25 cefuroxime axetil 500 mg tablet 500 mg PO BID 7 days #14 tabs 03/10/25 ondansetron 4 mg disintegrating 4 mg PO Q6H PRN nausea and 05/01/25 tablet vomiting #10 tabs Allergies Allergy/AdvReac Type Severity Reaction Status Date / Time No Known Allergies (NO KNOWN Allergy Unknown UNKNOWN Verified 05/11/25 18:12 ALLERGIES) Review of Systems Review of Systems: Yes all other systems are reviewed and are negative Constitutional: Constitutional: Reports as per HPI [facility] Past Medical History Attestation statement: The following information was validated with the patient. Source: old records reviewed Medical History Acute anxiety Smoker GERD without esophagitis Tubular adenoma of colon (~2018) Personal history of nicotine dependence Constipation Back pain Schizoaffective disorder, bipolar type Anxiety Benign prostatic hyperplasia with lower urinary tract symptoms Pure hypercholesterolemia Thought disorder Bipolar 1 disorder Mood disorder Surgical History History of colonoscopy (~04/2019) History of prostate surgery (~04/2019) History of open reduction and internal fixation (ORIF) procedure (~08/2018) Family History Family History Father Lung cancer BPH (benign prostatic hyperplasia) Mother Dementia Brother Myocardial infarction Other Mental health problem Substance abuse Social History Social History Household Members: Other Housing: Other Housing Other:: Intermediate Do you presently have visiting nurse or other home services: No Alcohol intake: never Patient Tobacco Use Status: Current everyday Tobacco user Tobacco use type: Cigarette Cigarette Packs Per Day: 0.5 Cigarettes Per Day: 10.0 Years Smoked: 10 e-Cigarette/Vaping Use: Never Used Second Hand Smoke Exposure: Yes Advance Directives: No Advance Directives Information Provided: No Do you have a plan to hurt others: No Plan service: No Current occupational status: employed and disabled Current occupation: [employer] Sexual orientation: Straight/Heterosexual Cognitive needs: No Hearing needs: No Vision needs: Yes Physical Exam Vital Signs: Vital Signs: Last Vital Signs Temp 98 F 05/11/25 18:08 Pulse 81 05/11/25 18:08 Resp 18 05/11/25 18:08 BP 134/77 05/11/25 18:08 Pulse Ox 98 05/11/25 18:08 O2 Del Method Room Air 05/11/25 18:08 BMI result Body Mass Index 21.7 Const: General: cooperative, healthy appearing and no acute distress Orientation/consciousness: patient oriented x3 Limitations: no limitations HEENT: Head: Yes normal to inspection and Yes atraumatic Ears: hearing grossly normal bilaterally General nose exam: Normal external nose present Face and sinus: Yes normal facial exam Eyes: General: appearance normal, both eyes and all related structures EOM: EOMs intact bilaterally Neck: Neck: Yes normal visual inspection and Yes no meningeal signs Resp: Effort & Inspection: normal respiratory effort and no respiratory distress Cardio: Rate: regular rate GI: Inspection: Yes normal to inspection Palpation (GI): Soft to palpation, nontender, no guarding and not rigid Skin: Rashes: no rashes Wounds: no wounds Neuro: General: patient oriented x3, tone normal and no meningeal signs Cranial nerves: Yes CN's II-XII intact bilaterally Gait exam (Neuro): Normal gait present Extrem: General: Yes normal to inspection Psych: Thought content: suicidality and no homicidality Course Course Course Narrative: - 779ml on bladder scan > patient would like to self catheterize in the emergency department. Will do that and then be discharged back to alf > 1944-- patient self catheterized in the ED with 800ml output Results discussed with patient including worrisome signs and symptoms and strict return precautions, and when to return to the emergency department. They verbalized understanding and feel safe for discharge at this time. Medical Decision Making Medical Decision Making MDM Narrative: 59-year-old male with a past medical history of anxiety, GERD, schizoaffective disorder bipolar type, mood disorder, BPH occasionally requiring self catheterization, presenting to the ED today stating he is unhappy with his alf. states he did not take any of his nighttime medications & just left his alf due to increased stress. Also reports his bladder being full. On exam vital signs stable, NAD, nontoxic appearing. Denies SI/ HI. Of note patient with frequent visits to our emergency department for similar complaints, with known chronic urinary retention. Chronic alf issues. Will obtain bladder scan. No need for CARE team involvement at this time. No need for labs or imaging at this time. Please refer to course for remaining clinical decision making, interpretation of labs/imaging results, and discussions with consultants and/or family members. Differential Diagnosis Differential Diagnoses: The differential diagnosis associated with the presentation includes As above Independent Historian Clinical information obtained from an independent historian. History obtained from or confirmed by: Other External Record Review External record reviewed: Inpatient record, Office record, Outpatient record, Prior outpatient labs, Prior outpatient radiology, Primary care record and Outside ED record Tests considered The following testing was considered but not selected: As above Prescription Management I considered prescription management with: Other Chronic Conditions Patient?s care impacted by: Other Social Determinants Patient?s care significantly limited by Social Determinants of Health including: Inadequate housing, Low income, Problems related to primary support group and Other Social Determinant of Health Discharge Plan Discharge Clinical Impression: Acute on chronic urinary retention Patient Disposition: Home, Self-Care Additional Instructions: you should be self catheterizing at home You were seen in the Emergency Department today. ?We understand that you have long standing concerns with your alf. Given the alf issues you deal with we advise when you are struggling with these events and feelings that you reach out to your therapist, your counselors, and your CHD worker. You can always call [facility] Crisis [phone]. Please follow up with your outpatient providers. Please utilize your resources in the community for your longstanding issues and utilize the emergency department for emergent medical and psychiatric needs. Prescriptions: No Action quetiapine 100 mg tablet 100 mg PO BEDTIME lorazepam 1 mg tablet 1 mg PO DAILY PRN (Reason: Anxiety) aripiprazole 30 mg tablet 30 mg PO DAILY quetiapine 50 mg tablet 50 mg PO BID olanzapine 10 mg tablet 10 mg PO TID ondansetron 4 mg tablet,disintegrating 4 mg PO Q6H PRN (Reason: nausea and vomiting) Qty: 10 0RF cefuroxime axetil 500 mg tablet 500 mg PO BID 7 Days Qty: 14 0RF tamsulosin 0.4 mg capsule 0.4 mg PO QAM 90 Days Qty: 90 0RF atorvastatin 20 mg tablet 20 mg PO QPM 90 Days Qty: 90 3RF Referrals: Dk Rodriguez MD [Primary Care Provider, Internal Medicine] - 1 week Print Language: Ug[place]
[2025-05-11 18:08] VITALS: BP 134/77; PULSE 81; RESP 18; TEMP 36.6; O2SAT 98; BMI 21.7
--- OUTSIDE RECORDS SUMMARY | 2025-05-11 19:12 | XMS_ITS | Clinical Summary ---
Author Organization [facility] Address [address] [place] [address] Care Team Providers Care Remote Sensing Program Manager Name Role Phone Ref, Hasnopcp Primary [...] Plan (01/03/2024 2:32 PM EDT): Presents from [facility] in the setting of urinary retention [...] Plan (01/02/2024 11:43 AM EDT): Presents from [facility] in the setting of urinary retention [...] Seroquel 25 mg twice daily Presents from [facility] forensic unit with documented history of schizophrenia. Continue home aripiprazole 20mg daily Continue home carbamazepine 500 mg twice daily Continue home Zyprexa 15 mg nightly Continue home Seroquel 25 mg twice daily Consider psychiatry consult if concern that antipsychotic medications are causing SIADH Patient presents from [facility], requires constant observation Assessment & Plan (01/02/2024 11:43 AM EDT): Home medications: aripiprazole 20 mg daily, carbamazepine 500 mg twice daily, Zyprexa 15 mg nightly, Seroquel 25 mg twice daily Presents from [facility]'s forensic unit with documented history of schizophrenia. Continue home aripiprazole 20mg daily Continue home carbamazepine 500 mg twice daily Continue home Zyprexa 15 mg nightly Continue home Seroquel 25 mg twice daily Consider psychiatry consult if concern that antipsychotic medications are causing SIADH Patient presents from [facility], requires constant observation BPH (benign prostatic hyperplasia) 12/30/2023 Assessment & Plan (01/03/2024 2:33 PM EDT): Paperwork from the [facility] indicates history of BPH with prior need for intermittent catheterization requiring urology evaluation in the past, records not available in our system). Per documentation from [facility] patient has seen urology at [facility] in [place]. He was started on Flomax outpatient. In [...] AM EDT): Paperwork from the [facility] indicates history of BPH with prior need for intermittent catheterization requiring urology evaluation in the past, records not available in our system). Per documentation from [facility] patient has seen urology at [facility] in [place]. He was started on Flomax outpatient. In [...] history exists Tobacco Screening 06/05/2042 01/29/2024 Insurance [facility] [id number] MEDICARE [facility] Advance Directives * Full Code (Latest Code Status on File) Date Activated Date Inactivated Comments 12/30/2023 7:22 PM 01/03/2024 8:48 PM * Presumed Full Code Date Activated Date Inactivated Comments 12/30/2023 7:00 PM 12/30/2023 7:22 PM Care Teams Remote Sensing Program Manager Relationship Specialty Start Date End Date Ref, Cadence DO NOT EDIT THIS RECORD VIA PROVIDER ON THE FLY PCP - General Cardiology Specialist 12/30/23
--- OUTSIDE RECORDS SUMMARY | 2025-05-11 19:12 | XMS_ITS | Clinical Summary ---
Author Organization [facility] Address [address] [place] [address] Phone Care Team Providers Care Information Systems Security Officer Name Role Phone Dk Rodriguez MD Primary Care Provider [phone]- [phone] Allergies No known active allergies Medications No known medications Encounters Date Type Department Care Team Description 04/10/2025 8:45 PM EST - 04/10/2025 10:[address] [facility] [address] [place] [phone] Discharge Disposition: Home or Self Care 03/30/2025 9:37 PM EDT - 03/30/2025 11:[address] [facility] [address] [place] [phone] Discharge Disposition: Left Against Medical Advice 03/06/2025 9:24 PM EDT - 03/06/2025 9:57 PM EDT Emergency [facility] Emergency [address] [place] [phone] Discharge Disposition: Home or Self Care 02/15/2025 9:21 PM EDT - 02/15/2025 9:[address] [facility] [address] [place] [phone] Encounter for Santos catheter removal (Primary Dx) Discharge Disposition: Home or Self Care 02/14/2025 8:31 PM EDT - 02/14/2025 9:[address] [facility] [address] [place] [phone] Urinary retention (Primary Dx) Discharge Disposition: Home or Self Care 02/10/2025 9:24 PM EDT - 02/10/2025 11:43 PM EDT Emergency [facility] Emergency [address] [place] [address] Discharge Disposition: Home or Self [...] Orientation Straight 07/16/2024 9: 22 PM EST Last Filed Vital Signs Vital Sign Reading [...] age to complete this topic Insurance [id number] [facility] [place] [id number] [place] [id number] MEDICAID - [place] Care Teams Information Systems Security Officer Relationship Specialty Start Date End Date Dk Rodriguez MD [address] [place] [address] [address] [place], [place] PCP - General Internal Medicine 07/16/24
--- OUTSIDE RECORDS SUMMARY | 2025-05-11 19:12 | XMS_ITS | Encounter Summary ---
Author Organization [facility] Address [address] [place] [address] Care Team Providers Care Video Game Designer Name Role Phone Ref, Hasnopcp Primary Care Provider Unavailabl e Encounter Details Date Type Department Care Team (Late st Contact Info) Description 01/04/2024 Community Orders [facility] EpicCare Link [address] [place] [address] Bethany Lozano, PRACTICE REPRESENTATIVE [address] [place] [address] Social History Tobacco Use Types Packs/Day Years [...] on filedocumented in this encounter Care Teams Video Game Designer Relationship Specialty Start Date End Date Ref, Cadence DO NOT EDIT THIS RECORD VIA PROVIDER ON THE FLY PCP - General Jet Operator 12/30/23 documented as of this encounter
--- NOTE | 2025-05-11 19:51 | PC.NURSE ---
Per Pa patient to be given straight catheter kit, patient self catheterized with 250mL out, prior bladder scan showed 780, given urinal to attempt to void independently, voided 750mL post void showed 100mL. Patient to discharge and follow up with outpatient provider within one week. Patient does have supplies at home to catheterize self.
[2025-05-11 19:57] VITALS: BP 127/73; PULSE 70; RESP 16; O2SAT 97
[2025-05-11 20:06] VITALS: BP 127/73; PULSE 70; RESP 16; TEMP 37.2; O2SAT 97
== END 2025-05-11 20:07 | disposition home or self-care (01) ==
PROVIDERS: Emergency Provider Emergency Medicine Emergency Medical Services; PCP Internal Medicine
DX: R33.9 Retention of urine, unspecified (principal); F17.200 Nicotine dependence, unspecified, uncomplicated; Z72.89 Other problems related to lifestyle
CPT/HCPCS: 51798; 99283; 99284

== ENCOUNTER 2025-05-13 23:14 | Emergency (ER) | payer MEDICARE, MEDICAID, SELFPAY ==
[2025-05-13 23:58] VITALS: BP 119/75; PULSE 71; RESP 16; TEMP 36.3; O2SAT 97; BMI 20.8
--- OUTSIDE RECORDS SUMMARY | 2025-05-14 00:18 | XMS_ITS | Clinical Summary ---
Author Organization [facility] Address [address] [place] [address] Care Team Providers Care Cuff Stitcher Name Role Phone Ref, Hasnopcp Primary Care [...] Plan (01/03/2024 2:32 PM EDT): Presents from [facility] in the setting of urinary [...] Plan (01/03/2024 10:49 AM EDT): Presented from [facility] with hyponatremia (initially 123). Also [...] Plan (01/02/2024 11:43 AM EDT): Presents from [facility] in the setting of urinary [...] Seroquel 25 mg twice daily Presents from [facility]'s forensic unit with documented history of schizophrenia. Continue home aripiprazole 20mg daily Continue home carbamazepine 500 mg twice daily Continue home Zyprexa 15 mg nightly Continue home Seroquel 25 mg twice daily Consider psychiatry consult if concern that antipsychotic medications are causing SIADH Patient presents from [facility], requires constant observation Assessment & Plan (01/02/2024 11:43 AM EDT): Home medications: aripiprazole 20 mg daily, carbamazepine 500 mg twice daily, Zyprexa 15 mg nightly, Seroquel 25 mg twice daily Presents from [facility]'s forensic unit with documented history of schizophrenia. Continue home aripiprazole 20mg daily Continue home carbamazepine 500 mg twice daily Continue home Zyprexa 15 mg nightly Continue home Seroquel 25 mg twice daily Consider psychiatry consult if concern that antipsychotic medications are causing SIADH Patient presents from [facility], requires constant observation BPH (benign prostatic hyperplasia) 12/30/2023 Assessment & Plan (01/03/2024 2:33 PM EDT): Paperwork from the [facility] indicates history of BPH with prior need for intermittent catheterization requiring urology evaluation in the past, records not available in our system). Per documentation from [facility] patient has seen urology at [facility] in [place]. He was started on Flomax outpatient. In [...] 11:43 AM EDT): Paperwork from the [facility] indicates history of BPH with prior need for intermittent catheterization requiring urology evaluation in the past, records not available in our system). Per documentation from [facility] patient has seen urology at [facility] in [place]. He was started on Flomax outpatient. In [...] history exists Tobacco Screening 06/05/2042 01/29/2024 Insurance [facility] [id number] MEDICARE [facility] Advance Directives * Full Code (Latest Code Status on File) Date Activated Date Inactivated Comments 12/30/2023 7:22 PM 01/03/2024 8:48 PM * Presumed Full Code Date Activated Date Inactivated Comments 12/30/2023 7:00 PM 12/30/2023 7:22 PM Care Teams Cuff Stitcher Relationship Specialty Start Date End Date Ref, Cadence DO NOT EDIT THIS RECORD VIA PROVIDER ON THE FLY PCP - General Mail Manager 12/30/23
--- OUTSIDE RECORDS SUMMARY | 2025-05-14 00:18 | XMS_ITS | Clinical Summary ---
Author Organization [facility] Address [address] [place] [address] Phone Care Team Providers Care Geotechnical Field Technician Name Role Phone Dk Rodriguez MD Primary Care Provider [phone]- [phone] Allergies No known active allergies Medications No known medications Encounters Date Type Department Care Team Description 04/10/2025 8:45 PM EST - 04/10/2025 10:25 PM EST [facility] Emergency [address] [place] [phone] Discharge Disposition: Home or Self Care 03/30/2025 9:37 PM EDT - 03/30/2025 11:09 PM EDT [facility] Emergency [address] [place] [phone] Discharge Disposition: Left Against Medical Advice 03/06/2025 9:24 PM EDT - 03/06/2025 9:57 PM EDT Emergency [facility] Emergency [address] [place] [phone] Discharge Disposition: Home or Self Care 02/15/2025 9:21 PM EDT - 02/15/2025 9:45 PM EDT [facility] Emergency [address] [place] [phone] Encounter for Santos catheter removal (Primary Dx) Discharge Disposition: Home or Self Care 02/14/2025 8:31 PM EDT - 02/14/2025 9:27 PM EDT [facility] Emergency [address] [place] [phone] Urinary retention (Primary Dx) Discharge Disposition: Home or Self Care from Last 3 Months Medical History Medical History Date Comments Bipolar 1 disorder ([facility] V24, [facility] V28) Mood disorder ([facility] V24) Hyperactivity of bladder Social History [...] Insurance MEDICARE MEDICAID - [place] Care Teams Geotechnical Field Technician Relationship Specialty Start Date End Date Dk Rodriguez MD [address] [place] [address] [place] [address] [place] PCP - General Internal Medicine 07/16/24
--- OUTSIDE RECORDS SUMMARY | 2025-05-14 00:18 | XMS_ITS | Encounter Summary ---
Author Organization [facility] Address [address] [place] [address] Care Team Providers Care Cable Splicer Assistant Name Role Phone Ref, Hasnopcp Primary Care Provider Unavailabl e Encounter Details Date Type Department Care Team (Late st Contact Info) Description 01/04/2024 Community Orders [facility] EpicCare Link [address] [place] [address] Bethany Lozano, GASTROENTEROLOGY PHYSICIAN [address] [place] [address] Social History Tobacco Use Types Packs/Day Years [...] on filedocumented in this encounter Care Teams Cable Splicer Assistant Relationship Specialty Start Date End Date Ref, Cadence DO NOT EDIT THIS RECORD VIA PROVIDER ON THE FLY PCP - General Crown Ironer Operator 12/30/23 documented as of this encounter
--- NOTE | 2025-05-14 01:18 | ED.ABDPAIN ---
HPI - Abdominal Pain General Chief Complaint: Abdominal Pain Stated Complaint: Needs Help Time Seen by Provider: 05/14/25 00:29 History of Present Illness ED Provider: Marco Antonio WETZEL HPI narrative: Patient is a 59-year-old male with a history of neurogenic bladder requiring constant self catheterization, presenting to the ED reporting for the past 2 days he has been experiencing suprapubic pain radiating into his epigastrium with the associated nausea but with the associated vomiting, fever/chills, chest pain, shortness of breath, hematuria, diarrhea, hematochezia, melena, or other acute somatic complaint. The patient reports he feels constipated but is moving his bowels. Patient reports he last self catheterize this afternoon but feels he did not do a good job of self catheterization. Related Data Home Medications ?Medication ?Instructions ?Recorded ?Confirmed aripiprazole 30 mg tablet 30 mg PO DAILY 01/31/25 04/14/25 lorazepam 1 mg tablet 1 mg PO DAILY PRN Anxiety 01/31/25 04/14/25 quetiapine 100 mg tablet 100 mg PO BEDTIME 01/31/25 04/14/25 quetiapine 50 mg tablet 50 mg PO BID 01/31/25 04/14/25 olanzapine 10 mg tablet 10 mg PO TID 02/03/25 04/14/25 Previous Rx's ?Medication ?Instructions ?Recorded atorvastatin 20 mg tablet 20 mg PO QPM 90 days #90 tabs 01/10/25 tamsulosin 0.4 mg capsule 0.4 mg PO QAM 90 days #90 caps 01/10/25 cefuroxime axetil 500 mg tablet 500 mg PO BID 7 days #14 tabs 03/10/25 ondansetron 4 mg disintegrating 4 mg PO Q6H PRN nausea and 05/01/25 tablet vomiting #10 tabs Allergies Allergy/AdvReac Type Severity Reaction Status Date / Time No Known Allergies (NO KNOWN Allergy Unknown UNKNOWN Verified 05/14/25 00:00 ALLERGIES) Review of Systems Review of Systems Yes all other systems are reviewed and are negative [facility] Past Medical History Medical History Acute anxiety Smoker GERD without esophagitis Tubular adenoma of colon (~2018) Personal history of nicotine dependence Constipation Back pain Schizoaffective disorder, bipolar type Anxiety Benign prostatic hyperplasia with lower urinary tract symptoms Pure hypercholesterolemia Thought disorder Bipolar 1 disorder Mood disorder Surgical History History of colonoscopy (~04/2019) History of prostate surgery (~04/2019) History of open reduction and internal fixation (ORIF) procedure (~08/2018) Family History Family History Father Lung cancer BPH (benign prostatic hyperplasia) Mother Dementia Brother Myocardial infarction Other Mental health problem Substance abuse Social History Social History Household Members: Other Housing: Other Housing Other:: [facility] Do you presently have visiting nurse or other home services: No Alcohol intake: never Patient Tobacco Use Status: Current everyday Tobacco user Tobacco use type: Cigarette Cigarette Packs Per Day: 0.5 Cigarettes Per Day: 10.0 Years Smoked: 10 e-Cigarette/Vaping Use: Never Used Second Hand Smoke Exposure: Yes Advance Directives: No Advance Directives Information Provided: Yes service: No Current occupational status: employed and disabled Current occupation: [employer] Sexual orientation: Straight/Heterosexual Cognitive needs: No Hearing needs: No Vision needs: Yes Physical Exam ED Vital Signs: Vital Signs - 24 hr 05/13/25 23:58 05/14/25 02:12 Temperature 97.4 F 97.4 F Pulse Rate 71 71 Respiratory Rate 16 16 Blood Pressure 119/75 119/75 Pulse Oximetry 97 97 Oxygen Delivery Method Room Air Room Air BMI result Body Mass Index 20.8 CONSTITUTIONAL: The patient appears non-toxic, well nourished and in no acute distress. Vital signs as documented. HEAD: Atraumatic, normocephalic. EYES: EOMs grossly intact, pupils equal, conjunctiva clear, no exudate. ENT: Nares patent, no discharge. Airway patent, no audible stridor, visible mucosa is pink and moist without noted lesions. NECK: trachea is midline, no obvious masses or gross abnormalities. CHEST: Symmetric movement, normal appearance. LUNGS: Non-labored work of breathing. CARDIAC: No evidence of hypoperfusion. ABDOMEN: Abdomen is soft x4 quadrants, mild suprapubic tenderness, negative rebound, nondistended, no obvious injury. : Deferred. EXTREMITIES: Moves all extremities spontaneously without reported pain. No obvious injury or deformity noted. NEURO: Alert and oriented x3, CN II-XII appear grossly intact. Cerebellar Functioning grossly intact. Speech clear and appropriate. SKIN: Warm, dry, color appropriate. No rashes or lesions noted. Medical Decision Making Medical Decision Making [facility] Narrative: 1:19 AM 05/14/2025 (Addy WETZEL): Patient is a 59-year-old male with a history of neurogenic bladder requiring constant self catheterization, presenting to the ED reporting for the past 2 days he has been experiencing suprapubic pain radiating into his epigastrium with the associated nausea but with the associated vomiting, fever/chills, chest pain, shortness of breath, hematuria, diarrhea, hematochezia, melena, or other acute somatic complaint. The patient reports he feels constipated but is moving his bowels. Patient reports he last self catheterize this afternoon but feels he did not do a good job of self catheterization. On exam patient has minimal suprapubic tenderness, no other acute findings. The patient's bladder scan demonstrates 800 cc of retained urine, patient was provided with a straight catheterization kit for self catheterization. 1:43 AM 05/14/2025 (Addy WETZEL): Patient was able to successfully catheterize with improvement in symptoms, and urinalysis shows no evidence of infection. The patient will be discharged to continue self catheterization. Admission/Observation Consideration of admission/observation: Escalation of care including admission/observation considered Lab Data [facility] Lab Attestation statement: I reviewed the patient's lab results. Labs: Lab Results 05/14/25 Range/Units 01:21 Urine Color Yellow Urine Appearance Clear Urine pH 7.5 (5.0-9.0) Ur Specific [place] 1.010 (1.005-1.025) Urine Protein Negative (Neg-Trace) mg/dL Urine Glucose (UA) Negative (Negative) mg/dL Urine Ketones Negative (Negative) mg/dL Urine Blood Negative (Negative) Urine Nitrite Negative (Negative) Ur Leukocyte Esterase Small (1+) H (Negative) Urine RBC 0-2 (0-2) /HPF Urine WBC 11-20 H (0-5) /HPF Ur Squamous Epith Cells 0-2 (0-2) /HPF Urine Bacteria None Seen (None Seen) Hyaline Casts 0-2 (0-2) /LPF External Record Review External record reviewed: Outpatient record and Prior outpatient labs Prescription Management I considered prescription management with: Pain Medication and Antibiotic Discharge Plan Discharge Clinical Impression: Neurogenic bladder Patient Disposition: Home, Self-Care Instructions: Neurogenic Bladder (ED) Additional Instructions: Thank you for choosing [facility]'s Emergency Department for your care today. At this time there is no indication for admission to the hospital or continued ED observation, and it is safe to discharge you home. Your bladder scan today did show retention of 100 cc of urine in your bladder. After your successful self catheterization your urinalysis thankfully shows no evidence of infection. Please continue self catheterizing regularly to avoid retention of urine in your bladder. Please follow up with your primary care physician and urologist for re-evaluation, additional management of your symptoms, and continued preventative care. If you do not have a primary care physician, please call the [facility] at [phone] to establish a new primary care physician. While waiting to establish your new primary care physician, you can call our Walk-in Care Clinic at [phone] for non-emergency needs. Please return to the emergency department if you develop a severe or sudden change in your symptoms, a fever over 100.4 that does not improve with Tylenol or Ibuprofen, recurrent vomiting, or any other new or worsening symptoms or concerns. Prescriptions: No Action quetiapine 100 mg tablet 100 mg PO BEDTIME lorazepam 1 mg tablet 1 mg PO DAILY PRN (Reason: Anxiety) aripiprazole 30 mg tablet 30 mg PO DAILY quetiapine 50 mg tablet 50 mg PO BID olanzapine 10 mg tablet 10 mg PO TID ondansetron 4 mg tablet,disintegrating 4 mg PO Q6H PRN (Reason: nausea and vomiting) Qty: 10 0RF cefuroxime axetil 500 mg tablet 500 mg PO BID 7 Days Qty: 14 0RF tamsulosin 0.4 mg capsule 0.4 mg PO QAM 90 Days Qty: 90 0RF atorvastatin 20 mg tablet 20 mg PO QPM 90 Days Qty: 90 3RF Referrals: Dk Rodriguez MD [Primary Care Provider, Internal Medicine] Clinical Impression: Neurogenic bladder Keon Liu MD [Physician, Urology] Clinical Impression: Neurogenic bladder Interventions: ED Discharge Assessment Last Done: 05/14/25 02:12 Discharge Date/Time: 05/14/25 02:12 Print Language: Bahamian
[2025-05-14 01:29] LABS: Appearance Urine Clear; Glucose Urine UA Negative (Negative); PH 7.5 (5.0-9.0); Specific Gravity - Urine 1.010 (1.005-1.025); UMIC TRIGGER UACC YES
[2025-05-14 01:35] LABS: UACC Culture Trigger YES
[2025-05-14 02:12] VITALS: BP 119/75; PULSE 71; RESP 16; TEMP 36.3; O2SAT 97
== END 2025-05-14 02:12 | disposition home or self-care (01) ==
PROVIDERS: Physician Assistant; Emergency Provider Emergency Medicine; PCP Internal Medicine
DX: N31.9 Neuromuscular dysfunction of bladder, unspecified (principal); R10.24 Suprapubic pain; F17.210 Nicotine dependence, cigarettes, uncomplicated; Z79.899 Other long term (current) drug therapy
CPT/HCPCS: 51701; 51798; 81001; 87086; 87088; 99283

== ENCOUNTER 2025-05-15 22:38 | Emergency (ER) | payer MEDICARE, MEDICAID, SELFPAY ==
[2025-05-15 22:58] VITALS: BP 129/75; PULSE 76; RESP 18; TEMP 36.3; O2SAT 97; BMI 21.4
--- NOTE | 2025-05-15 23:18 | ED.GENADULT ---
HPI - General Adult General Chief complaint: General Medical Stated complaint: alf issues Time Seen by Provider: 05/15/25 23:11 Source: patient Mode of arrival: ambulatory Limitations: no limitations History of Present Illness ED Provider: Dr. Ginger Mello HPI narrative: Patient comes to the emergency room complaining of not feeling well. Patient states that he is having trouble at his fdc, states that he does not feel good in his room, patient states that his bladder is full. Patient denies SI or HI Related Data Home Medications ?Medication ?Instructions ?Recorded ?Confirmed aripiprazole 30 mg tablet 30 mg PO DAILY 01/31/25 04/14/25 lorazepam 1 mg tablet 1 mg PO DAILY PRN Anxiety 01/31/25 04/14/25 quetiapine 100 mg tablet 100 mg PO BEDTIME 01/31/25 04/14/25 quetiapine 50 mg tablet 50 mg PO BID 01/31/25 04/14/25 olanzapine 10 mg tablet 10 mg PO TID 02/03/25 04/14/25 Previous Rx's ?Medication ?Instructions ?Recorded atorvastatin 20 mg tablet 20 mg PO QPM 90 days #90 tabs 01/10/25 tamsulosin 0.4 mg capsule 0.4 mg PO QAM 90 days #90 caps 01/10/25 cefuroxime axetil 500 mg tablet 500 mg PO BID 7 days #14 tabs 03/10/25 ondansetron 4 mg disintegrating 4 mg PO Q6H PRN nausea and 05/01/25 tablet vomiting #10 tabs cefuroxime axetil 250 mg tablet 250 mg PO BID #14 tabs 05/16/25 Allergies Allergy/AdvReac Type Severity Reaction Status Date / Time No Known Allergies (NO KNOWN Allergy Unknown UNKNOWN Verified 05/15/25 23:03 ALLERGIES) Review of Systems Review of Systems: Constitutional : No Weight loss, No Fever, No Chills, No Night Sweats, No Fatigue, No Malaise ENT/Mouth : No Hearing loss, No Ear Pain, No Nasal Congestion, No Sinus Pain, No Hoarseness, No sore throat, No Rhinorrhea, No Swallowing Difficulty Eyes: No Eye Pain, No Swelling, No Redness, No Foreign Body, No Discharge, No Vision Changes Cardiovascular : No Chest Pain, No SOB, No Dyspnea on Exertion, No Orthopnea, No Edema, No Palpitations Respiratory : No Cough, No Sputum, No Wheezing, No Smoke Exposure, No Dyspnea Gastrointestinal : No Nausea, No Vomiting, No Diarrhea, No Constipation, No abdominal Pain, No Hematochezia, No Melena Genitourinary : Reports that his bladder is very full. No Dysuria, No Urinary Frequency, No Hematuria, No Urinary Incontinence, No Urgency, No Flank Pain, No Urinary Flow Changes, No Hesitancy Musculoskeletal : No joint pain, No Myalgias, No Joint Swelling Skin : No Skin Lesions, No rash Neuro : No Weakness, No Numbness, No Paresthesias, No Loss of Consciousness, No Dizziness, No Headache Psych : No Anxiety/Panic, No Depression, No SI/HI/AH/VH, No Social Issues, Heme/Lymph: No Bruising, No Bleeding,No Lymphadenopathy Endocrine : No Polyuria, No Polydipsia, No Temperature Intolerance [facility] Past Medical History Medical History Acute anxiety Smoker GERD without esophagitis Tubular adenoma of colon (~2018) Personal history of nicotine dependence Constipation Back pain Schizoaffective disorder, bipolar type Anxiety Benign prostatic hyperplasia with lower urinary tract symptoms Pure hypercholesterolemia Thought disorder Bipolar 1 disorder Mood disorder Surgical History History of colonoscopy (~04/2019) History of prostate surgery (~04/2019) History of open reduction and internal fixation (ORIF) procedure (~08/2018) Family History Family History Father Lung cancer BPH (benign prostatic hyperplasia) Mother Dementia Brother Myocardial infarction Other Mental health problem Substance abuse Social History Social History Household Members: Other Housing: Other Housing Other:: Fdc Do you presently have visiting nurse or other home services: No Alcohol intake: never Patient Tobacco Use Status: Current everyday Tobacco user Tobacco use type: Cigarette Cigarette Packs Per Day: 0.5 Cigarettes Per Day: 10.0 Years Smoked: 10 e-Cigarette/Vaping Use: Never Used Second Hand Smoke Exposure: Yes Advance Directives: No Advance Directives Information Provided: Yes service: No Current occupational status: employed and disabled Current occupation: [employer] Sexual orientation: Straight/Heterosexual Cognitive needs: No Hearing needs: No Vision needs: Yes Physical Exam ED Exam Exam: Appearance: Alert. Oriented X3. No acute distress. Eyes: Pupils equal, round and reactive to light. ENT: Pharynx normal. Neck: Normal inspection. Neck supple. No lymph nodes noted. No crepitus CVS: Normal heart rate and rhythm. Pulses normal. Normal S1 and S2 Respiratory: No respiratory distress. Breath sounds normal. No Wheezing. No rales Abdomen: Soft, seems to be that he has been there is actually distended. No rigidity. No distention. Skin: Skin warm and dry. Normal skin color. Normal skin turgor. Extremities: No lower extremity edema. No Lacerations. No Rash Neuro: Oriented X 3. No motor deficit. No sensory deficit. Moving all extremities. No slurred speech. CN 2 through 12 grossly intact Psych: calm, cooperative, normal affect Vital Signs: Vital Signs - 24 hr 05/15/25 22:58 Temperature 97.4 F Pulse Rate 76 Respiratory Rate 18 Blood Pressure 129/75 Pulse Oximetry 97 Oxygen Delivery Method Room Air BMI result Body Mass Index 21.4 Course Course Course Narrative: Bladder scan is pending Medical Decision Making Medical Decision Making [facility] Narrative: A bladder scan was done, it showed 948 mL of urine in his bladder. Patient is known to have issues with urinary retention and he is supposed to straight cath himself. For unclear reasons, he has not straight cath himself. He was given the equipment here and he was able to straight cath and empty out his bladder. Patient's urinalysis positive for nitrites. Usually, patient does not have nitrites in the urine. Given his symptoms, we will go ahead and treat as UTI. Patient was given the 1st dose was cefuroxime here in the emergency room Discharge Plan Discharge Clinical Impression: Urinary retention, Acute UTI Patient Disposition: Home, Self-Care Instructions: Urinary Retention in Men (ED), Urinary Tract Infection in Men (ED) Additional Instructions: Please follow-up with your primary care physician tomorrow. If you have any worsening or new symptoms, please return to the emergency room or call 911 Prescriptions: New cefuroxime axetil 250 mg tablet 250 mg PO BID Qty: 14 0RF No Action quetiapine 100 mg tablet 100 mg PO BEDTIME lorazepam 1 mg tablet 1 mg PO DAILY PRN (Reason: Anxiety) aripiprazole 30 mg tablet 30 mg PO DAILY quetiapine 50 mg tablet 50 mg PO BID olanzapine 10 mg tablet 10 mg PO TID ondansetron 4 mg tablet,disintegrating 4 mg PO Q6H PRN (Reason: nausea and vomiting) Qty: 10 0RF cefuroxime axetil 500 mg tablet 500 mg PO BID 7 Days Qty: 14 0RF tamsulosin 0.4 mg capsule 0.4 mg PO QAM 90 Days Qty: 90 0RF atorvastatin 20 mg tablet 20 mg PO QPM 90 Days Qty: 90 3RF Print Language: Marshallese
--- OUTSIDE RECORDS SUMMARY | 2025-05-15 23:47 | XMS_ITS | Clinical Summary ---
Author Organization [facility] Address [address] [place] [address] Phone Care Team Providers Care Financial Brokers Name Role Phone Dk Rodriguez MD Primary Care Provider [phone] Allergies No known active allergies Medications No known medications Encounters Date Type Department Care Team Description 04/10/2025 8:45 PM EST - 04/10/2025 10:25 PM EST [facility] Emergency [address] [place] [phone] Discharge Disposition: Home or Self Care 03/30/2025 9:37 PM EDT - 03/30/2025 11:09 PM EDT [facility] Emergency [address] [place] [phone] Discharge Disposition: Left Against Medical Advice 03/06/2025 9:24 PM EDT - 03/06/2025 9:57 PM EDT Emergency [facility] Emergency [address] [place] [phone] Discharge Disposition: Home or Self Care 02/15/2025 9:21 PM EDT - 02/15/2025 9:45 PM EDT [facility] Emergency [address] [place] [phone] Encounter for Santos catheter removal (Primary Dx) Discharge Disposition: Home or Self Care 02/14/2025 8:31 PM EDT - 02/14/2025 9:27 PM EDT [facility] Emergency [address] [place] [phone] Urinary retention (Primary Dx) Discharge Disposition: Home or Self Care from Last 3 Months Medical History Medical History Date Comments Bipolar 1 disorder ([facility] V24, [facility] V28) Mood disorder ([facility] V24) Hyperactivity of bladder Social History Tobacco [...] Insurance MEDICARE MEDICAID - [place] Care Teams Financial Brokers Relationship Specialty Start Date End Date Dk Rodriguez MD [address] [place] [address] [place] [address] [place] PCP - General Internal Medicine 07/16/24
--- OUTSIDE RECORDS SUMMARY | 2025-05-15 23:47 | XMS_ITS | Clinical Summary ---
Author Organization [facility] Address [address] [place] [address] Care Team Providers Care Sports Psychologist Name Role Phone Ref, Hasnopcp Primary Care [...] Plan (01/03/2024 2:32 PM EDT): Presents from [facility] in the setting of urinary retention [...] Plan (01/02/2024 11:43 AM EDT): Presents from [facility] in the setting of urinary retention [...] Seroquel 25 mg twice daily Presents from [facility]'s forensic unit with documented history of schizophrenia. 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 Per documentation from [facility] patient has seen urology at [facility] in [place]. He was started on Flomax outpatient. In [...] available in our system). Per documentation from [facility] patient has seen urology at [facility] in [place]. He was started on Flomax outpatient. In [...] history exists Tobacco Screening 06/05/2042 01/29/2024 Insurance [facility] [id number] MEDICARE [facility] Advance Directives * Full Code (Latest Code Status on File) Date Activated Date Inactivated Comments 12/30/2023 7:22 PM 01/03/2024 8:48 PM * Presumed Full Code Date Activated Date Inactivated Comments 12/30/2023 7:00 PM 12/30/2023 7:22 PM Care Teams Sports Psychologist Relationship Specialty Start Date End Date Ref, Cadence DO NOT EDIT THIS RECORD VIA PROVIDER ON THE FLY PCP - General Plane Captain 12/30/23
--- OUTSIDE RECORDS SUMMARY | 2025-05-15 23:47 | XMS_ITS | Encounter Summary ---
Author Organization [facility] Address [address] [place] [address] Care Team Providers Care Planning And Analysis Manager Name Role Phone Ref, Hasnopcp Primary Care Provider Unavailabl e Encounter Details Date Type Department Care Team (Late st Contact Info) Description 01/04/2024 Community Orders [facility] EpicCare Link [address] [place] [address] Bethany Lozano, WHEEL LOADER OPERATOR [address] [place] [address] Social History Tobacco Use Types Packs/Day Years [...] on filedocumented in this encounter Care Teams Planning And Analysis Manager Relationship Specialty Start Date End Date Ref, Cadence DO NOT EDIT THIS RECORD VIA PROVIDER ON THE FLY PCP - General Slot Shift Supervisor 12/30/23 documented as of this encounter
[2025-05-16 00:39] LABS: Appearance Urine Clear; Glucose Urine UA Negative (Negative); PH 7.5 (5.0-9.0); Specific Gravity - Urine <= 1.005 (1.005-1.025); UMIC TRIGGER UACC YES
[2025-05-16 00:59] LABS: UACC Culture Trigger YES
[2025-05-16 01:07] VITALS: BP 129/75; PULSE 76; RESP 18; TEMP 36.3; O2SAT 97
--- NOTE | 2025-05-16 11:15 | PTCAREPLN_ITS ---
Patient Care Plan Patient Care Plan Details: [facility] EMERGENCY DEPARTMENT CARE PLAN Balbir Lyon 65 Patient presentation: Balbir typically presents with stress related to his halfway. He generally states ?I can?t take it anymore.? Balbir occasionally requests to go to respite and not back to the halfway. He does not usually report SI/HI. He has been seen 22 out of 28 days in the month of March. Balbir does have some chronic medical conditions and if he presents with any medical complaints please assess and intervene. PMH: Self-catheterizations and hx of UTI including cephalosporin sensitive Klebsiella oxytoca/pneumonia, schizoaffective disorder, anxiety, BPH, hypercholesterolemia, GERD Prior admissions: His most recent inpatient admission was in February of 2025 to the inpatient psychiatry unit no new medication changes. Admission prior to this was in 2020. ED interventions: Reassurance is the mainstay of treatment. If he has SI/HI please involve the CARE team. They will assess him. He is able to use the shuttle service home but Lyft will not be utilized, he will need to call the halfway for a ride. He does not need the CARE team unless he presents with SI/HI/AH/VH, psychosis. Please assess for any issues related to his prior UTI. Follow up: ?Plan to utilize outpatient resources. He has a specific discharge assessment in quick text under? .DM You were seen in the Emergency Department today. ?We understand that you have long standing concerns with your halfway. Given the textile worker issues involving your halfway we advise when you are struggling with these events and feelings that you reach out to your therapist, your counselors, and your CHD worker. You can always call CHD Crisis [phone]. Please follow up with your outpatient providers. Please utilize your resources in the community for your longstanding issues and utilize the emergency department for emergent medical and psychiatric needs.
== END 2025-05-16 01:07 | disposition home or self-care (01) ==
PROVIDERS: Emergency Provider Emergency Medicine; PCP Internal Medicine
DX: R33.9 Retention of urine, unspecified (principal); N39.0 Urinary tract infection, site not specified; Z79.899 Other long term (current) drug therapy; F17.210 Nicotine dependence, cigarettes, uncomplicated
CPT/HCPCS: 51798; 81001; 87086; 99283

== ENCOUNTER 2025-05-17 16:09 | Emergency (ER) | payer MEDICARE, MEDICAID, SELFPAY ==
[2025-05-17 16:29] VITALS: BP 131/60; PULSE 82; RESP 16; TEMP 36.4; O2SAT 94; BMI 21.5
--- NOTE | 2025-05-17 16:35 | ED_ITS ---
HPI - General Adult General Chief complaint: General Medical Stated complaint: left home couldn't handle it Time Seen by Provider: 05/17/25 16:40 Source: patient, RN notes reviewed and old records reviewed Mode of arrival: ambulatory Limitations: no limitations History of Present Illness ED Provider: Nichelle Castro PA-C HPI narrative: ? The patient reports he has been unable to urinate since this morning. ? Describes the bladder as ?completely inflamed.? ? States, ?If I have an inflamed bladder, I don?t want to tell you people,? indicating distress about not being taken care of. ? Patient walked here from [place] for today?s visit. ? Denies having been ?taken care of right.? ? Patient referenced measuring his bladder, stating he was hearing somewhere eleven hundred and eight hundred. Review of Systems: Genitourinary: Positive for anuria since this morning, reports bladder discomfort/inflammation. Patient referenced bladder measurements with values eleven hundred and eight hundred. (context unclear, possibly volume). Psychiatric: Denies suicidal ideation. Denies homicidal ideation. Related Data Home Medications ?Medication ?Instructions ?Recorded ?Confirmed aripiprazole 30 mg tablet 30 mg PO DAILY 01/31/2504/05 lorazepam 1 mg tablet 1 mg PO DAILY PRN Anxiety 04/14/25 quetiapine 100 mg tablet 100 mg PO BEDTIME 01/31/25 1 06/14/24 quetiapine 50 mg tablet 50 mg PO BID 01/31/25 olanzapine 10 mg tablet 10 mg PO TID 02/03/25 Previous Rx's ?Medication ?Instructions ?Recorded atorvastatin 20 mg tablet 20 mg PO QPM 90 days #90 tab s 01/10/25 tamsulosin 0.4 mg capsule 0.4 mg PO QAM 90 days #90 ca ps 01/10/25 cefuroxime axetil 500 mg tablet 500 mg PO BID 7 days # 14 tabs 03/10/25 ondansetron 4 mg disintegrating 4 mg PO Q6H PRN nausea and 05/01/25 tablet vomiting #10 tabs cefuroxime axetil 250 mg tablet 250 mg PO BID #14 tabs 05/16/25 magnesium citrate 150 ml PO BID PRN constipati on 05/28/25 #296 mL polyethylene glycol 3350 17 17 g PO DAILY PRN constipa tion 2 05/28/25 gram/dose oral powder (Miralax) weeks #238 grams Allergies Allergy/AdvReac Type Severity Reaction Status Date / Time No Known Allergies (NO KNOWN Allergy Unknown UNKNOWN Verified 06/06/25 12:39 ALLERGIES) Review of Systems Review of Systems: Yes all other systems are reviewed and are negative PMFSH Past Medical History Medical History Acute anxiety Smoker GERD without esophagitis Tubular adenoma of colon (~2018) Personal history of nicotine dependence Constipation Back pain Schizoaffective disorder, bipolar type Anxiety Benign prostatic hyperplasia with lower urinary tract symptoms Pure hypercholesterolemia Thought disorder Bipolar 1 disorder Mood disorder Surgical History History of colonoscopy (~04/2019) History of prostate surgery (~04/2019) History of open reduction and internal fixation (ORIF) procedure (~08/2018) Family History Family History Father Lung cancer BPH (benign prostatic hyperplasia) Mother Dementia Brother Myocardial infarction Other Mental health problem Substance abuse Social History Social History Household Members: Other Housing: Other Housing Other:: [facility]pc Do you presently have visiting nurse or other home services: No Alcohol intake: never Patient Tobacco Use Status: Current everyday Tobacco user Tobacco use type: Cigarette Cigarette Packs Per Day: 0.5 Cigarettes Per Day: 10.0 Years Smoked: 10 e-Cigarette/Vaping Use: Never Used Second Hand Smoke Exposure: Yes Advance Directives: No Advance Directives Information Provided: Yes Do you have a plan to hurt others: No Plan service: No Current occupational status: employed and disabled 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 No septic or ill-appearing. Vitals reviewed normal, PMH/Social and Surgical hx reviewed including allergies and current medications. - reviewed for prior visits here Head: Normocephalic, no obvious trauma or skin lesions noted. Eyes: EOMI ENMT: moist oral mucosa Neck: trachea midline Cardiovascular: peripheral perfusion normal, Regular heart rate Respiratory: no respiratory distress, lungs clear Abdomen: nondistended Extremities: warm and moving without difficulty unless otherwise detailed in physical exam if applicable. Psych: Cooperative but agitated Neuro: Alert and oriented. Vital Signs: Vital Signs - 24 hr 05/17/25 16:29 Temperature 97.6 F Pulse Rate 82 Respiratory Rate 16 Blood Pressure 131/60 Pulse Oximetry 94 Oxygen Delivery Method Room Air BMI result Body Mass Index 21.5 Course Course Course Narrative: This is a RME preformed in triage by Nichelle Castro PA-C. Date: 05/17/25, time?430. Patient presents with I cannot pee or poop. Care PLAN present, reasaurance of maintain of treatment. No SI/HI or psychosis Work UP:?UA and KUB upright..Quick text. .DM Will defer full ROS and PE to treating provider. Patient will continued to be monitored in the interim. Medical Decision Making Medical Decision Making MDM Narrative: Problem #1: Urinary retention / Bladder inflammation Assessment: Patient reports inability to urinate since this morning and describes bladder sensation as inflamed. Patient declined to give us his urine and reported being able to urinate and decided to leave ED on own accord. Reasons to return given. He understands I could not rule out UTI without UA. Differential Diagnosis Differential Diagnoses: The differential diagnosis associated with the presentation includes UTI, retention secondary to BPH Admission/Observation Consideration of admission/observation: Escalation of care including admission/observation considered Chronic Conditions Patient?s care impacted by: Other Social Determinants Patient?s care significantly limited by Social Determinants of Health including: Other Social Determinant of Health Discharge Plan Discharge Clinical Impression: Neurogenic bladder Patient Disposition: Home, Self-Care Additional Instructions: You were seen in the Emergency Department today. ?We understand that you have long standing concerns with your shelter. 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 You can always call CHD Crisis [phone]. Please follow up with your outpatient providers. Please utilize your resources in the community for your longstanding issues and utilize the emergency department for emergent medical and psychiatric needs Prescriptions: No Action quetiapine 100 mg tablet 100 mg PO BEDTIME lorazepam 1 mg tablet 1 mg PO DAILY PRN (Reason: Anxiety) aripiprazole 30 mg tablet 30 mg PO DAILY quetiapine 50 mg tablet 50 mg PO BID olanzapine 10 mg tablet 10 mg PO TID ondansetron 4 mg tablet,disintegrating 4 mg PO Q6H PRN (Reason: nausea and vomiting) Qty: 10 0RF cefuroxime axetil 250 mg tablet 250 mg PO BID Qty: 14 0RF polyethylene glycol 3350 [Miralax] 17 gram/dose powder 17 g PO DAILY PRN (Reason: constipation) 14 Days Qty: 238 0RF magnesium citrate Solution 150 ml PO BID PRN (Reason: constipation) Qty: 296 0RF cefuroxime axetil 500 mg tablet 500 mg PO BID 7 Days Qty: 14 0RF tamsulosin 0.4 mg capsule 0.4 mg PO QAM 90 Days Qty: 90 0RF atorvastatin 20 mg tablet 20 mg PO QPM 90 Days Qty: 90 3RF Discharge Date/Time: 05/17/25 17:07 Print Language: Trinidadian
--- NOTE | 2025-05-17 16:45 | PC.NURSE ---
Pt noted to walk directly from triage room out of dept. [facility] provider Nichelle aware.
--- OUTSIDE RECORDS SUMMARY | 2025-05-17 16:51 | XMS_ITS | Encounter Summary ---
Author Organization [facility] Address [address] [place] [address] Care Team Providers Care Studio Operations Manager Name Role Phone Ref, Hasnopcp Primary Care Provider Unavailabl e Encounter Details Date Type Department Care Team (Late st Contact Info) Description 01/04/2024 Community Orders [facility] EpicCare Link [address] [place] [address] Bethany Lozano, FARE ENFORCEMENT OFFICER [address] [place] [address] Social History Tobacco Use Types Packs/Day Years [...] on filedocumented in this encounter Care Teams Studio Operations Manager Relationship Specialty Start Date End Date Ref, Cadence DO NOT EDIT THIS RECORD VIA PROVIDER ON THE FLY PCP - General Laborer/Key Man 12/30/23 documented as of this encounter
--- OUTSIDE RECORDS SUMMARY | 2025-05-17 16:51 | XMS_ITS | Clinical Summary ---
Author Organization [facility] Address [address] [place] [address] Care Team Providers Care Lathe Mechanic Name Role Phone Ref, Hasnopcp Primary Care [...] 10:49 AM EDT): Presented from [facility] with hyponatremia (initially 123). Also had [...] Seroquel 25 mg twice daily Presents from [facility]'s forensic unit with documented history of schizophrenia. Continue home aripiprazole 20mg daily Continue home carbamazepine 500 mg twice daily Continue home Zyprexa 15 mg nightly Continue home Seroquel 25 mg twice daily Consider psychiatry consult if concern that antipsychotic medications are causing SIADH Patient presents from [facility], requires constant observation Assessment & Plan (01/02/2024 11:43 AM EDT): Home medications: aripiprazole 20 mg daily, carbamazepine 500 mg twice daily, Zyprexa 15 mg nightly, Seroquel 25 mg twice daily Presents from [facility]'s forensic unit with documented history of schizophrenia. Continue home aripiprazole 20mg daily Continue home carbamazepine 500 mg twice daily Continue home Zyprexa 15 mg nightly Continue home Seroquel 25 mg twice daily Consider psychiatry consult if concern that antipsychotic medications are causing SIADH Patient presents from [facility], requires constant observation BPH (benign prostatic hyperplasia) 12/30/2023 Assessment & Plan (01/03/2024 2:33 PM EDT): Paperwork from the [facility] indicates history of BPH with prior need for intermittent catheterization requiring urology evaluation in the past, records not available in our system). Per documentation from [facility] patient has seen urology at [facility] in [place]. He was started on Flomax outpatient. [facility] at [facility] in [place]. He was started on Flomax outpatient. In [...] history exists Tobacco Screening 06/05/2042 01/29/2024 [place] [id number] MEDICARE [facility] Advance Directives * Full Code (Latest Code Status on File) Date Activated Date Inactivated Comments 12/30/2023 7:22 PM 01/03/2024 8:48 PM * Presumed Full Code Date Activated Date Inactivated Comments 12/30/2023 7:00 PM 12/30/2023 7:22 PM Care Teams Lathe Mechanic Relationship Specialty Start Date End Date Ref, Cadence DO NOT EDIT THIS RECORD VIA PROVIDER ON THE FLY PCP - General Knitting Machine Operator Automatic 12/30/23
--- OUTSIDE RECORDS SUMMARY | 2025-05-17 16:51 | XMS_ITS | Clinical Summary ---
Author Organization [facility] Address [address] [place] [address] Phone Care Team Providers Care Workers Compensation Claims Assistant Name Role Phone Dk Rodriguez MD Primary Care Provider [phone]- [phone] Allergies No known active allergies Medications No known medications Encounters Date Type Department Care Team Description 04/10/2025 8:45 PM EST - 04/10/2025 10:25 PM EST Emergency [facility] Emergency [address] [place] [phone] Discharge Disposition: Home or Self Care 03/30/2025 9:37 PM EDT - 03/30/2025 11:09 PM EDT Emergency [facility] Emergency [address] [place] [phone] Discharge Disposition: Left Against Medical Advice 03/06/2025 9:24 PM EDT - 03/06/2025 9:57 PM EDT Emergency [facility] Emergency [address] [place] [phone] Discharge Disposition: Home or Self Care 02/15/2025 9:21 PM EDT - 02/15/2025 9:45 PM EDT [facility] Emergency [address] [place] [phone] Encounter for Santos catheter removal (Primary Dx) [...] Insurance MEDICARE MEDICAID - [place] Care Teams Workers Compensation Claims Assistant Relationship Specialty Start Date End Date Dk Rodriguez MD [address] [place] [address] [address] COY Lucero PCP - General Internal Medicine 07/16/24
== END 2025-05-17 17:07 | disposition home or self-care (01) ==
LOC: HO.ED 16:48
PROVIDERS: Emergency Provider Emergency Medicine; PCP Internal Medicine
DX: N31.9 Neuromuscular dysfunction of bladder, unspecified (principal); R39.16 Straining to void; F17.200 Nicotine dependence, unspecified, uncomplicated; Z71.6 Tobacco abuse counseling
CPT/HCPCS: 99281; 99282

== ENCOUNTER 2025-05-18 13:39 | Emergency (ER) | payer MEDICARE, MEDICAID, SELFPAY ==
[2025-05-18 13:50] VITALS: BP 139/54; PULSE 90; RESP 16; TEMP 36.4; O2SAT 100; BMI 23.9
--- NOTE | 2025-05-18 13:53 | ED.GENADULT ---
HPI - General Adult General Chief complaint: Urogenital-Male Stated complaint: issues w/ halfway Time Seen by Provider: 05/18/25 14:07 Source: patient and RN notes reviewed Mode of arrival: ambulatory Limitations: no limitations History of Present Illness ED Provider: Maritza Krishnamurthy PA-C HPI narrative: 59 y/o M, with a hx of anxiety, GERD, schizoaffective disorder bipolar type, mood disorder, BPH occasionally requiring self catheterization, presenting to the ED today stating he is unhappy with his halfway. He reports no SI/HI. He admits to feeling his bladder is full. 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 No SI/HI/AH/VH. No chest pain or SOB. No other complaints or concerns at this time. MD complaint: Anxiety Associated symptoms: denies other symptoms Related Data Home Medications ?Medication ?Instructions ?Recorded ?Confirmed aripiprazole 30 mg tablet 30 mg PO DAILY 01/31/25 04/14/25 lorazepam 1 mg tablet 1 mg PO DAILY PRN Anxiety 01/31/25 04/14/25 quetiapine 100 mg tablet 100 mg PO BEDTIME 01/31/25 04/14/25 quetiapine 50 mg tablet 50 mg PO BID 01/31/25 04/14/25 olanzapine 10 mg tablet 10 mg PO TID 02/03/25 04/14/25 Previous Rx's ?Medication ?Instructions ?Recorded atorvastatin 20 mg tablet 20 mg PO QPM 90 days #90 tabs 01/10/25 tamsulosin 0.4 mg capsule 0.4 mg PO QAM 90 days #90 caps 01/10/25 cefuroxime axetil 500 mg tablet 500 mg PO BID 7 days #14 tabs 03/10/25 ondansetron 4 mg disintegrating 4 mg PO Q6H PRN nausea and 05/01/25 tablet vomiting #10 tabs cefuroxime axetil 250 mg tablet 250 mg PO BID #14 tabs 05/16/25 Allergies Allergy/AdvReac Type Severity Reaction Status Date / Time No Known Allergies (NO KNOWN Allergy Unknown UNKNOWN Verified 05/20/25 19:52 ALLERGIES) Review of Systems Review of Systems: Constitutional : No Fever, No Chills ENT/Mouth : No sore throat, No Rhinorrhea Eyes: No Eye Pain, No Swelling, No Redness Cardiovascular : No Chest Pain, No SOB Respiratory : No Cough, No Sputum Gastrointestinal : No Nausea, No Vomiting, No Diarrhea, No abdominal Pain Genitourinary : No Dysuria, No Hematuria Musculoskeletal : No joint pain, No Myalgias, No Joint Swelling Skin : No Skin Lesions Neuro : No Weakness, No Numbness, No Headache All other systems reviewed and are negative [facility] Past Medical History Medical History Acute anxiety Smoker GERD without esophagitis Tubular adenoma of colon (~2018) Personal history of nicotine dependence Constipation Back pain Schizoaffective disorder, bipolar type Anxiety Benign prostatic hyperplasia with lower urinary tract symptoms Pure hypercholesterolemia Thought disorder Bipolar 1 disorder Mood disorder Surgical History History of colonoscopy (~04/2019) History of prostate surgery (~04/2019) History of open reduction and internal fixation (ORIF) procedure (~08/2018) Family History Family History Father Lung cancer BPH (benign prostatic hyperplasia) Mother Dementia Brother Myocardial infarction Other Mental health problem Substance abuse Social History Social History Household Members: Other Housing: Other Housing Other:: Senior Care Do you presently have visiting nurse or other home services: No Alcohol intake: never Patient Tobacco Use Status: Current everyday Tobacco user Tobacco use type: Cigarette Cigarette Packs Per Day: 0.5 Cigarettes Per Day: 10.0 Years Smoked: 10 e-Cigarette/Vaping Use: Never Used Second Hand Smoke Exposure: Yes Advance Directives: No Advance Directives Information Provided: No Do you have a plan to hurt others: No Plan service: No Current occupational status: employed and disabled 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 No acute distress. HEENT: Normal inspection CVS: Normal heart rate and rhythm. Pulses normal. Respiratory: No respiratory distress Skin: Warm, dry, no rashes noted to exposed skin. Normal skin color. Normal skin turgor. Abdomen: Abd is soft, nontender, nondistended Extremities: Normal to inspection Neuro: Oriented X 3. No motor deficit. No sensory deficit. Vital Signs: Vital Signs - 24 hr 05/18/25 13:50 Temperature 97.5 F Pulse Rate 90 Respiratory Rate 16 Blood Pressure 139/54 L Pulse Oximetry 100 Oxygen Delivery Method Room Air BMI result Body Mass Index 23.9 Course Course Course Narrative: This is a Rapid Medical Examination (RME) performed by Addy Regalado PA-C in triage. Full HPI, ROS, assessment and treatment plan per primary provider in the Main ED. Hx: 59 yo M here for eval of halfway issues and I can't pee . states he has been self cathing at home, last cathed at 1200 - reports minimal urine output. reports bladder pain/distension. denies SI/HI. Plan: bladder scan Medical Decision Making Medical Decision Making MDM Narrative: 59 y/o M, with a hx of anxiety, GERD, schizoaffective disorder bipolar type, mood disorder, BPH occasionally requiring self catheterization, presenting to the ED today stating he is unhappy with his halfway. On arrival, VSS. pt has no SI.HI. Reporting full bladder - bladder scan >500. He would like to self cath at home, and he is eager to leave the ED, requesting his discharge paperwork jessy. Differential Diagnosis Differential Diagnoses: The differential diagnosis associated with the presentation includes anxiety, depression, SI, HI Discharge Plan Discharge Clinical Impression: Neurogenic bladder, Anxiety Patient Disposition: Home, Self-Care Instructions: Neurogenic Bladder (ED), Anxiety (ED) Additional Instructions: You were seen in the Emergency Department today. ?We understand that you have long standing concerns with your halfway. Given the jail issues you deal with we advise when you are struggling with these events and feelings that you reach out to your therapist, your counselors, and your CHD worker. You can always call CHD Crisis [phone]. Please follow up with your outpatient providers. Please utilize your resources in the community for your longstanding issues and utilize the emergency department for emergent medical and psychiatric needs. You were found to have 500 cc of urine in your bladder, you self-catheterize, please do this when you get home. You also were sent an antibiotic last week, please ensure that you are taking this. Prescriptions: No Action quetiapine 100 mg tablet 100 mg PO BEDTIME lorazepam 1 mg tablet 1 mg PO DAILY PRN (Reason: Anxiety) aripiprazole 30 mg tablet 30 mg PO DAILY quetiapine 50 mg tablet 50 mg PO BID olanzapine 10 mg tablet 10 mg PO TID ondansetron 4 mg tablet,disintegrating 4 mg PO Q6H PRN (Reason: nausea and vomiting) Qty: 10 0RF cefuroxime axetil 250 mg tablet 250 mg PO BID Qty: 14 0RF cefuroxime axetil 500 mg tablet 500 mg PO BID 7 Days Qty: 14 0RF tamsulosin 0.4 mg capsule 0.4 mg PO QAM 90 Days Qty: 90 0RF atorvastatin 20 mg tablet 20 mg PO QPM 90 Days Qty: 90 3RF Interventions: ED Discharge Assessment Last Done: 05/18/25 14:56 Discharge Date/Time: 05/18/25 14:57 Print Language: Luxembourgish
--- OUTSIDE RECORDS SUMMARY | 2025-05-18 14:01 | XMS_ITS | Clinical Summary ---
Author Organization [facility] Address [address] [place] [address] Care Team Providers Care Teacher Preschool Name Role Phone Ref, Hasnopcp Primary Care [...] Plan (01/03/2024 2:32 PM EDT): Presents from [facility] in the setting of urinary retention and [...] Plan (01/02/2024 11:43 AM EDT): Presents from [facility] in the setting of urinary retention and [...] (01/03/2024 2:33 PM EDT): Paperwork from the [facility] indicates history of BPH with prior need for intermittent catheterization requiring urology evaluation in the past, records not available in our system). Per documentation from [facility] patient has seen urology at [facility] in [place]. He was started on Flomax outpatient. In [...] 11:43 AM EDT): Paperwork from the [facility] indicates history of BPH with prior need for intermittent catheterization requiring urology evaluation in the past, records not available in our system). Per documentation from [facility] patient has seen urology at [facility] in [place]. He was started on Flomax outpatient. In [...] history exists Tobacco Screening 06/05/2042 01/29/2024 [place] [id number] MEDICARE [facility] Advance Directives * Full Code (Latest Code Status on File) Date Activated Date Inactivated Comments 12/30/2023 7:22 PM 01/03/2024 8:48 PM * Presumed Full Code Date Activated Date Inactivated Comments 12/30/2023 7:00 PM 12/30/2023 7:22 PM Care Teams Teacher Preschool Relationship Specialty Start Date End Date Ref, Cadence DO NOT EDIT THIS RECORD VIA PROVIDER ON THE FLY PCP - General Camera Maker 12/30/23
--- OUTSIDE RECORDS SUMMARY | 2025-05-18 14:01 | XMS_ITS | Encounter Summary ---
Author Organization [facility] Address [address] [place] [address] Care Team Providers Care Salmon Troll Fisher Name Role Phone Ref, Hasnopcp Primary Care Provider Unavailabl e Encounter Details Date Type Department Care Team (Late st Contact Info) Description 01/04/2024 Community Orders [facility] EpicCare Link [address] [place] [address] Bethany Lozano, TECHNICAL SUPPORT INTERN [address] [place] [address] Social History Tobacco Use Types Packs/Day Years [...] on filedocumented in this encounter Care Teams Salmon Troll Fisher Relationship Specialty Start Date End Date Ref, Cadence DO NOT EDIT THIS RECORD VIA PROVIDER ON THE FLY PCP - General Tank Assembler 12/30/23 documented as of this encounter
--- OUTSIDE RECORDS SUMMARY | 2025-05-18 14:01 | XMS_ITS | Clinical Summary ---
Author Organization [facility] Address [address] [place] [address] Phone Care Team Providers Care Wine Manager Name Role Phone Dk Rodriguez MD Primary Care Provider +1- [phone] Allergies No known active allergies Medications No known medications Encounters Date Type Department Care Team Description 04/10/2025 8:45 PM EST - 04/10/2025 10:25 PM EST Emergency [facility] Emergency [address] [place] [phone] Discharge Disposition: Home or Self Care 03/30/2025 9:37 PM EDT - 03/30/2025 11:09 PM EDT Emergency [facility] Emergency [address] [place] [phone] Discharge Disposition: Left Against Medical Advice 03/06/2025 9:24 PM EDT - 03/06/2025 9:57 PM EDT Emergency [facility] Emergency [address] [place] [phone] Discharge Disposition: Home or Self Care from [...] Insurance MEDICARE MEDICAID - [place] Care Teams Wine Manager Relationship Specialty Start Date End Date Dk Rodriguez MD [address] [place] [address] [address] [place] PCP - General Internal Medicine 07/16/24
[2025-05-18 14:56] VITALS: BP 139/54; PULSE 90; RESP 16; TEMP 36.4; O2SAT 100
== END 2025-05-18 14:57 | disposition home or self-care (01) ==
PROVIDERS: Emergency Provider Emergency Medicine; PCP Internal Medicine
DX: N31.9 Neuromuscular dysfunction of bladder, unspecified (principal); F41.9 Anxiety disorder, unspecified; K21.9 Gastro-esophageal reflux disease without esophagitis; E78.00 Pure hypercholesterolemia, unspecified; F17.200 Nicotine dependence, unspecified, uncomplicated; Z71.6 Tobacco abuse counseling
CPT/HCPCS: 51798; 99283

== ENCOUNTER 2025-05-19 11:45 | Emergency (ER) | payer MEDICARE, MEDICAID, SELFPAY ==
[2025-05-19 11:52] VITALS: BP 132/79; BP 132/88; PULSE 64; PULSE 77; RESP 14; TEMP 36.6; O2SAT 97; O2SAT 99; BMI 22.5
[2025-05-19 11:57] VITALS: BP 132/79; PULSE 64; RESP 14; TEMP 36.6; O2SAT 99
--- NOTE | 2025-05-19 12:14 | ED.MALEGU ---
HPI - Male Genitourinary General Chief complaint: Urogenital-Male Stated complaint: Recurrent UTI nocomplient w/ self cath Time Seen by Provider: 05/19/25 12:14 Source: patient Mode of arrival: EMS Limitations: no limitations History of Present Illness ED Provider: HPI Narrative: The patient presents from his skilled nursing/day program reporting that over the past year he has been ?walking all over the city with a full bladder? and now is unable to tolerate the discomfort. He describes chronic urinary retention, difficulty initiating urination, and abdominal discomfort ?down here? that he attributes to the full bladder. He recalls a prior [place] catheter placed by urology approximately one year ago, which temporarily relieved his symptoms. He states the skilled nursing is responsible for arranging urology appointments but ?they haven?t been doing that.? He reports that when he walked outside to smoke, he felt as though he was going to collapse. Today at the day program his blood pressure was reported to be ?extremely high, then it dropped, then it went up.? denies any active suicidal or homicidal ideation. He is on multiple psychiatric medications including Seroquel, though he is unsure of the full list. The day program staff are aware he is in the ED. He reports frequent ED visits for similar issues and acknowledges an established care plan. Related Data Home Medications ?Medication ?Instructions ?Recorded ?Confirmed aripiprazole 30 mg tablet 30 mg PO DAILY 01/31/25 04/14/25 lorazepam 1 mg tablet 1 mg PO DAILY PRN Anxiety 01/31/25 04/14/25 quetiapine 100 mg tablet 100 mg PO BEDTIME 01/31/25 04/14/25 quetiapine 50 mg tablet 50 mg PO BID 01/31/25 04/14/25 olanzapine 10 mg tablet 10 mg PO TID 02/03/25 04/14/25 Previous Rx's ?Medication ?Instructions ?Recorded atorvastatin 20 mg tablet 20 mg PO QPM 90 days #90 tabs 01/10/25 tamsulosin 0.4 mg capsule 0.4 mg PO QAM 90 days #90 caps 01/10/25 cefuroxime axetil 500 mg tablet 500 mg PO BID 7 days #14 tabs 03/10/25 ondansetron 4 mg disintegrating 4 mg PO Q6H PRN nausea and 05/01/25 tablet vomiting #10 tabs cefuroxime axetil 250 mg tablet 250 mg PO BID #14 tabs 05/16/25 Allergies Allergy/AdvReac Type Severity Reaction Status Date / Time No Known Allergies (NO KNOWN Allergy Unknown UNKNOWN Verified 05/19/25 11:53 ALLERGIES) Review of Systems Review of Systems: Constitutional: Feels generally unwell. Cardiovascular: Reports palpitations, these are recurrent and chronic Gastrointestinal: Nausea; abdominal discomfort. Genitourinary: Chronic urinary retention; difficulty voiding; bladder fullness.. Psychiatric: Distress about quality of life; denies SI/HI. Constitutional: Constitutional: Reports as per [facility] Past Medical History Medical History Acute anxiety Smoker GERD without esophagitis Tubular adenoma of colon (~2018) Personal history of nicotine dependence Constipation Back pain Schizoaffective disorder, bipolar type Anxiety Benign prostatic hyperplasia with lower urinary tract symptoms Pure hypercholesterolemia Thought disorder Bipolar 1 disorder Mood disorder Surgical History History of colonoscopy (~04/2019) History of prostate surgery (~04/2019) History of open reduction and internal fixation (ORIF) procedure (~08/2018) Family History Family History Father Lung cancer BPH (benign prostatic hyperplasia) Mother Dementia Brother Myocardial infarction Other Mental health problem Substance abuse Social History Social History Household Members: Other Housing: Other Housing Other:: Care Home Do you presently have visiting nurse or other home services: No Alcohol intake: never Patient Tobacco Use Status: Current everyday Tobacco user Tobacco use type: Cigarette Cigarette Packs Per Day: 0.5 Cigarettes Per Day: 10.0 Years Smoked: 10 e-Cigarette/Vaping Use: Never Used Second Hand Smoke Exposure: Yes Use of substances other than those prescribed or required for medical reasons: No Advance Directives: No Advance Directives Information Provided: Yes Do you have a plan to hurt others: No Plan service: No Current occupational status: employed and disabled 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 Respiratory: Lungs clear to auscultation bilaterally. Cardiovascular: S1 present; no murmurs noted. Abdomen: Soft, non-distended; no tenderness. Genitourinary: Normal testicles and penis per exam. Neurologic: Awake, alert, conversant. Vital Signs: Vital Signs: Last Vital Signs Temp 97.8 F 05/19/25 13:31 Pulse 63 05/19/25 13:31 Resp 12 05/19/25 13:31 BP 128/80 05/19/25 13:31 Pulse Ox 98 05/19/25 13:31 O2 Del Method Room Air 05/19/25 13:31 BMI result Body Mass Index 22.5 Medical Decision Making Medical Decision Making MDM Narrative: 1:21 PM 05/19/2025 (Dr. Navneet Robin): Review existing urology follow-up recommendations in care plan. Review recent laboratory and imaging studies. Provide reassurance; no evidence of suicidal or homicidal ideation. Coordinate with skilled nursing/day program regarding follow-up needs. Anticipate discharge once evaluation is complete and patient is clinically stable. Straight cath as he is retaining urine to 500 cc to determine if he requires antibiotics, he has had multiple visits for this an issues with follow up catheterization we will need urology follow up and return precautions Differential Diagnosis Differential Diagnoses: The differential diagnosis associated with the presentation includes (UTI, urinary retention, prosthetic issues, hernia, phimosis) Lab Data Labs: Lab Results 05/19/25 Range/Units 13:30 Urine Color Yellow Urine Appearance Clear Urine pH 7.0 (5.0-9.0) Ur Specific Saline <= 1.005 (1.005-1.025) Urine Protein Negative (Neg-Trace) mg/dL Urine Glucose (UA) Negative (Negative) mg/dL Urine Ketones Negative (Negative) mg/dL Urine Blood Negative (Negative) Urine Nitrite Negative (Negative) Ur Leukocyte Esterase Negative (Negative) Discharge Plan Discharge Clinical Impression: Neurogenic bladder Additional Instructions: You were seen in the Emergency Department today. ?We understand that you have long standing concerns with your skilled nursing. 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 You can always call CHD Crisis [phone]. Please follow up with your outpatient providers. Please utilize your resources in the community for your longstanding issues and utilize the emergency department for emergent medical and psychiatric needs. Urinalysis without infection, inability to urinate for 8 hours should come back to the ER for re-evaluation Prescriptions: No Action quetiapine 100 mg tablet 100 mg PO BEDTIME lorazepam 1 mg tablet 1 mg PO DAILY PRN (Reason: Anxiety) aripiprazole 30 mg tablet 30 mg PO DAILY quetiapine 50 mg tablet 50 mg PO BID olanzapine 10 mg tablet 10 mg PO TID ondansetron 4 mg tablet,disintegrating 4 mg PO Q6H PRN (Reason: nausea and vomiting) Qty: 10 0RF cefuroxime axetil 250 mg tablet 250 mg PO BID Qty: 14 0RF cefuroxime axetil 500 mg tablet 500 mg PO BID 7 Days Qty: 14 0RF tamsulosin 0.4 mg capsule 0.4 mg PO QAM 90 Days Qty: 90 0RF atorvastatin 20 mg tablet 20 mg PO QPM 90 Days Qty: 90 3RF Print Language: Malawian
[2025-05-19 13:31] VITALS: BP 128/80; PULSE 63; RESP 12; TEMP 36.6; O2SAT 98
--- NOTE | 2025-05-19 13:31 | PC.NURSE ---
ARLETTE from day program. Patient reports feeling off diagnosed with UTI couple weeks ago. Patient has to self cath (non compliant). C/O bladder pressure Patient was able to produce urine sample without straight cath Urine sent to lab
[2025-05-19 13:41] LABS: Appearance Urine Clear; Glucose Urine UA Negative (Negative); PH 7.0 (5.0-9.0); Specific Gravity - Urine <= 1.005 (1.005-1.025)
[2025-05-19 14:43] VITALS: BP 125/81; PULSE 66; RESP 16; TEMP 36.6; O2SAT 98
== END 2025-05-19 14:45 | disposition home or self-care (01) ==
PROVIDERS: Emergency Provider Emergency Medicine; PCP Internal Medicine
DX: N31.9 Neuromuscular dysfunction of bladder, unspecified (principal); F17.200 Nicotine dependence, unspecified, uncomplicated; Z71.6 Tobacco abuse counseling
CPT/HCPCS: 51701; 51798; 81003; 99283; 99285

== ENCOUNTER 2025-05-20 19:46 | Emergency (ER) | payer MEDICARE, MEDICAID, SELFPAY ==
[2025-05-20 19:51] VITALS: BP 135/63; PULSE 87; RESP 18; TEMP 36.4; O2SAT 100; BMI 20.7
--- NOTE | 2025-05-20 20:06 | ED.GENADULT ---
HPI - General Adult General Chief complaint: General Medical Stated complaint: starting antibiotics Time Seen by Provider: 05/20/25 20:03 Source: patient Mode of arrival: ambulatory Limitations: no limitations History of Present Illness ED Provider: Dr. Ginger Mello HPI narrative: Patient comes to the emergency room stating that he started antibiotics today. Patient denies hematuria or dysuria, denies flank pain. Since then patient has been feeling strange, denies chest pain or shortness of breath, denies rash. Patient states that he feels that his nerves are worsened since he started antibiotic and he can not tolerate living in his custodial. Patient denies SI or HI Related Data Home Medications ?Medication ?Instructions ?Recorded ?Confirmed aripiprazole 30 mg tablet 30 mg PO DAILY 01/31/25 04/14/25 lorazepam 1 mg tablet 1 mg PO DAILY PRN Anxiety 01/31/25 04/14/25 quetiapine 100 mg tablet 100 mg PO BEDTIME 01/31/25 04/14/25 quetiapine 50 mg tablet 50 mg PO BID 01/31/25 04/14/25 olanzapine 10 mg tablet 10 mg PO TID 02/03/25 04/14/25 Previous Rx's ?Medication ?Instructions ?Recorded atorvastatin 20 mg tablet 20 mg PO QPM 90 days #90 tabs 01/10/25 tamsulosin 0.4 mg capsule 0.4 mg PO QAM 90 days #90 caps 01/10/25 cefuroxime axetil 500 mg tablet 500 mg PO BID 7 days #14 tabs 03/10/25 ondansetron 4 mg disintegrating 4 mg PO Q6H PRN nausea and 05/01/25 tablet vomiting #10 tabs cefuroxime axetil 250 mg tablet 250 mg PO BID #14 tabs 05/16/25 Allergies Allergy/AdvReac Type Severity Reaction Status Date / Time No Known Allergies (NO KNOWN Allergy Unknown UNKNOWN Verified 05/20/25 19:52 ALLERGIES) Review of Systems Review of Systems: Constitutional : No Weight loss, No Fever, No Chills, No Night Sweats, No Fatigue, No Malaise ENT/Mouth : No Hearing loss, No Ear Pain, No Nasal Congestion, No Sinus Pain, No Hoarseness, No sore throat, No Rhinorrhea, No Swallowing Difficulty Eyes: No Eye Pain, No Swelling, No Redness, No Foreign Body, No Discharge, No Vision Changes Cardiovascular : No Chest Pain, No SOB, No Dyspnea on Exertion, No Orthopnea, No Edema, No Palpitations Respiratory : No Cough, No Sputum, No Wheezing, No Smoke Exposure, No Dyspnea Gastrointestinal : No Nausea, No Vomiting, No Diarrhea, No Constipation, No abdominal Pain, No Hematochezia, No Melena Genitourinary : no irregular bleeding, No Dysuria, No Urinary Frequency, No Hematuria, No Urinary Incontinence, No Urgency, No Flank Pain, No Urinary Flow Changes, No Hesitancy Musculoskeletal : No joint pain, No Myalgias, No Joint Swelling Skin : No Skin Lesions, No rash Neuro : No Weakness, No Numbness, No Paresthesias, No Loss of Consciousness, No Dizziness, No Headache Psych : Complaining of anxiety No SI/HI/AH/VH, No Social Issues, Heme/Lymph: No Bruising, No Bleeding,No Lymphadenopathy Endocrine : No Polyuria, No Polydipsia, No Temperature Intolerance PMFSH Past Medical History Medical History Acute anxiety Smoker GERD without esophagitis Tubular adenoma of colon (~2018) Personal history of nicotine dependence Constipation Back pain Schizoaffective disorder, bipolar type Anxiety Benign prostatic hyperplasia with lower urinary tract symptoms Pure hypercholesterolemia Thought disorder Bipolar 1 disorder Mood disorder Surgical History History of colonoscopy (~04/2019) History of prostate surgery (~04/2019) History of open reduction and internal fixation (ORIF) procedure (~08/2018) Family History Family History Father Lung cancer BPH (benign prostatic hyperplasia) Mother Dementia Brother Myocardial infarction Other Mental health problem Substance abuse Social History Social History Household Members: Other Housing: Other Housing Other:: Halfway Do you presently have visiting nurse or other home services: No Alcohol intake: never Patient Tobacco Use Status: Current everyday Tobacco user Tobacco use type: Cigarette Cigarette Packs Per Day: 0.5 Cigarettes Per Day: 10.0 Years Smoked: 10 e-Cigarette/Vaping Use: Never Used Second Hand Smoke Exposure: Yes Advance Directives: No Advance Directives Information Provided: No Do you have a plan to hurt others: No Plan service: No Current occupational status: employed and disabled Current occupation: [employer] Sexual orientation: Straight/Heterosexual Cognitive needs: No Hearing needs: No Vision needs: Yes Physical Exam ED Exam Exam: Appearance: Alert. Oriented X3. No acute distress. Eyes: Pupils equal, round and reactive to light. ENT: Pharynx normal. Neck: Normal inspection. Neck supple. No lymph nodes noted. No crepitus CVS: Normal heart rate and rhythm. Pulses normal. Normal S1 and S2 Respiratory: No respiratory distress. Breath sounds normal. No Wheezing. No rales Abdomen: Soft and nontender. No rigidity. No distention. Skin: Skin warm and dry. Normal skin color. Normal skin turgor. Extremities: No lower extremity edema. No Lacerations. No Rash Neuro: Oriented X 3. No motor deficit. No sensory deficit. Moving all extremities. No slurred speech. CN 2 through 12 grossly intact Psych: calm, cooperative, normal affect Vital Signs: Vital Signs - 24 hr 05/20/25 19:51 Temperature 97.5 F Pulse Rate 87 Respiratory Rate 18 Blood Pressure 135/63 Pulse Oximetry 100 Oxygen Delivery Method Room Air BMI result Body Mass Index 20.7 Medical Decision Making Medical Decision Making MDM Narrative: Patient feeling anxious. Patient instructed to keep taking cefuroxime as instructed Patient was reassured, patient has been seen multiple times here in the emergency room. After being reassured, patient stated ?I feel better , I just want to go home now Discharge Plan Discharge Clinical Impression: Anxiety Patient Disposition: Home, Self-Care Instructions: Anxiety (ED) Additional Instructions: You were seen in the Emergency Department today. ?We understand that you have long standing concerns with your custodial. 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 You can always call CHD Crisis [phone]. Please follow up with your outpatient providers. Please utilize your resources in the community for your longstanding issues and utilize the emergency department for emergent medical and psychiatric needs Prescriptions: No Action quetiapine 100 mg tablet 100 mg PO BEDTIME lorazepam 1 mg tablet 1 mg PO DAILY PRN (Reason: Anxiety) aripiprazole 30 mg tablet 30 mg PO DAILY quetiapine 50 mg tablet 50 mg PO BID olanzapine 10 mg tablet 10 mg PO TID ondansetron 4 mg tablet,disintegrating 4 mg PO Q6H PRN (Reason: nausea and vomiting) Qty: 10 0RF cefuroxime axetil 250 mg tablet 250 mg PO BID Qty: 14 0RF cefuroxime axetil 500 mg tablet 500 mg PO BID 7 Days Qty: 14 0RF tamsulosin 0.4 mg capsule 0.4 mg PO QAM 90 Days Qty: 90 0RF atorvastatin 20 mg tablet 20 mg PO QPM 90 Days Qty: 90 3RF Print Language: Kiswahili
--- OUTSIDE RECORDS SUMMARY | 2025-05-20 20:35 | XMS_ITS | Clinical Summary ---
Author Organization [facility] Address [address] [place] [address] Care Team Providers Care Educational Assistant Name Role Phone Ref, Hasnopcp Primary [...] Plan (01/03/2024 10:49 AM EDT): Presented from [facility] with hyponatremia (initially 123). Also [...] Seroquel 25 mg twice daily Presents from [facility]'s forensic unit with documented history of schizophrenia. Continue home aripiprazole 20mg daily Continue home carbamazepine 500 mg twice daily Continue home Zyprexa 15 mg nightly Continue home Seroquel 25 mg twice daily Consider psychiatry consult if concern that antipsychotic medications are causing SIADH Patient presents from [facility], requires constant observation Assessment & Plan (01/02/2024 11:43 AM EDT): Home medications: aripiprazole 20 mg daily, carbamazepine 500 mg twice daily, Zyprexa 15 mg nightly, Seroquel 25 mg twice daily Presents from [facility]'s forensic unit with documented history of schizophrenia. Continue home aripiprazole 20mg daily Continue home carbamazepine 500 mg twice daily Continue home Zyprexa 15 mg nightly Continue home Seroquel 25 mg twice daily Consider psychiatry consult if concern that antipsychotic medications are causing SIADH Patient presents from [facility], requires constant observation BPH (benign prostatic hyperplasia) 12/30/2023 Assessment & Plan (01/03/2024 2:33 PM EDT): Paperwork from the [facility] indicates history of BPH with prior need for intermittent catheterization requiring urology evaluation in the past, records not available in our system). Per documentation from [facility] patient has seen urology at [facility] in [place]. He was started on Flomax outpatient. In [...] [facility]al Center patient has seen urology at [facility] in [place]. He was started on Flomax outpatient. In [...] history exists Tobacco Screening 06/05/2042 01/29/2024 Insurance [facility] [id number] MEDICARE [facility] Advance Directives * Full Code (Latest Code Status on File) Date Activated Date Inactivated Comments 12/30/2023 7:22 PM 01/03/2024 8:48 PM * Presumed Full Code Date Activated Date Inactivated Comments 12/30/2023 7:00 PM 12/30/2023 7:22 PM Care Teams Educational Assistant Relationship Specialty Start Date End Date Ref, Cadence DO NOT EDIT THIS RECORD VIA PROVIDER ON THE FLY PCP - General Dental Treatment Coordinator 12/30/23
--- OUTSIDE RECORDS SUMMARY | 2025-05-20 20:35 | XMS_ITS | Clinical Summary ---
Author Organization [facility] Address [address] [place] [address] Phone Care Team Providers Care Director Business Travel Name Role Phone Dk Rodriguez MD Primary Care Provider [phone] Allergies No known active allergies Medications No known medications Encounters Date Type Department Care Team Description 04/10/2025 8:45 PM EST - 04/10/2025 10:25 PM EST Emergency [facility] Emergency [address] [place] [phone] Discharge Disposition: Home or Self Care 03/30/2025 9:37 PM EDT - 03/30/2025 11:09 PM EDT Emergency [facility] Emergency [address] [place] [phone] Discharge Disposition: Left Against Medical Advice 03/06/2025 9:24 PM EDT - 03/06/2025 9:57 PM EDT Emergency [facility] Emergency [address] [place] [phone] Discharge Disposition: Home or Self Care from [...] MEDICARE MEDICAID - [place] Care Teams Director Business Travel Relationship Specialty Start Date End Date Dk Rodriguez MD [address] [place] [address] [address] [place] PCP - General Internal Medicine 07/16/24
--- OUTSIDE RECORDS SUMMARY | 2025-05-20 20:35 | XMS_ITS | Encounter Summary ---
Author Organization [facility] Address [address] [place] [address] Care Team Providers Care Industrial Methods Consultant Name Role Phone Ref, Hasnopcp Primary Care Provider Unavailabl e Encounter Details Date Type Department Care Team (Late st Contact Info) Description 01/04/2024 Community Orders [facility] EpicCare Link [address] [place] [address] Bethany Lozano, SHOPPER INSIGHTS MANAGER [address] [place] [address] Social History Tobacco Use Types Packs/Day Years [...] filedocumented in this encounter Care Teams Industrial Methods Consultant Relationship Specialty Start Date End Date Ref, Cadence DO NOT EDIT THIS RECORD VIA PROVIDER ON THE FLY PCP - General Copy Room Technician 12/30/23 documented as of this encounter
== END 2025-05-20 20:14 | disposition home or self-care (01) ==
PROVIDERS: Emergency Provider Emergency Medicine; PCP Internal Medicine
DX: F41.9 Anxiety disorder, unspecified (principal); Z79.899 Other long term (current) drug therapy; F17.200 Nicotine dependence, unspecified, uncomplicated; Z71.6 Tobacco abuse counseling
CPT/HCPCS: 99281; 99282

== ENCOUNTER 2025-05-21 19:55 | Emergency (ER) | payer MEDICARE, MEDICAID, SELFPAY ==
[2025-05-21 19:57] VITALS: BP 114/65; PULSE 78; RESP 16; TEMP 36.9; O2SAT 100; BMI 22.0
--- OUTSIDE RECORDS SUMMARY | 2025-05-21 21:14 | XMS_ITS | Clinical Summary ---
Author Organization [facility] Address [address] [place] [address] Care Team Providers Care Perfume Maker Name Role Phone Ref, Hasnopcp Primary Care [...] Plan (01/03/2024 10:49 AM EDT): Presented from [facility] with hyponatremia (initially 123). Also had [...] Seroquel 25 mg twice daily Presents from [facility]'s forensic unit with documented history of schizophrenia. Continue home aripiprazole 20mg daily Continue home carbamazepine 500 mg twice daily Continue home Zyprexa 15 mg nightly Continue home Seroquel 25 mg twice daily Consider psychiatry consult if concern that antipsychotic medications are causing SIADH Patient presents from [facility], requires constant observation Assessment & Plan (01/02/2024 11:43 AM EDT): Home medications: aripiprazole 20 mg daily, carbamazepine 500 mg twice daily, Zyprexa 15 mg nightly, Seroquel 25 mg twice daily Presents from [facility]'s forensic unit with documented history of schizophrenia. Continue home aripiprazole 20mg daily Continue home carbamazepine 500 mg twice daily Continue home Zyprexa 15 mg nightly Continue home Seroquel 25 mg twice daily Consider psychiatry consult if concern that antipsychotic medications are causing SIADH Patient presents from [facility], requires constant observation BPH (benign prostatic hyperplasia) 12/30/2023 Assessment & Plan (01/03/2024 2:33 PM EDT): Paperwork from the [facility] indicates history of BPH with prior need for intermittent catheterization requiring urology evaluation in the past, records not available in our system). Per documentation from [facility] patient has seen urology at [facility] in [place]. He was started on Flomax outpatient. In [...] and Hospital patient has seen urology at [facility] in [place]. He was started on Flomax outpatient. In [...] history exists Tobacco Screening 06/05/2042 01/29/2024 Insurance [place] [id number] MEDICARE [facility] Advance Directives * Full Code (Latest Code Status on File) Date Activated Date Inactivated Comments 12/30/2023 7:22 PM 01/03/2024 8:48 PM * Presumed Full Code Date Activated Date Inactivated Comments 12/30/2023 7:00 PM 12/30/2023 7:22 PM Care Teams Perfume Maker Relationship Specialty Start Date End Date Ref, Cadence DO NOT EDIT THIS RECORD VIA PROVIDER ON THE FLY PCP - General Veneer Taping Machine Offbearer 12/30/23
--- OUTSIDE RECORDS SUMMARY | 2025-05-21 21:14 | XMS_ITS | Clinical Summary ---
Author Organization [facility] Address [address] [place] [address] Phone Care Team Providers Care Feeder Associate Name Role Phone Dk Rodriguez MD Primary Care Provider [phone]- [phone] Allergies No known active allergies Medications No known medications Encounters Date Type Department Care Team Description 04/10/2025 8:45 PM EST - 04/10/2025 10:25 PM EST Emergency [facility] Emergency [address] [place] [phone] Discharge Disposition: Home or Self Care 03/30/2025 9:37 PM EDT - 03/30/2025 11:09 PM EDT Emergency [facility] Emergency [address] [place] [phone] Discharge Disposition: Left Against Medical Advice 03/06/2025 9:24 PM EDT - 03/06/2025 9:57 PM EDT Emergency [facility] Emergency [address] [place] [phone] Discharge Disposition: Home or Self Care from [...] Insurance MEDICARE MEDICAID - [place] Care Teams Feeder Associate Relationship Specialty Start Date End Date Dk Rodriguze MD [address] [place] [address] [address] [place] PCP - General Internal Medicine 07/16/24
--- OUTSIDE RECORDS SUMMARY | 2025-05-21 21:14 | XMS_ITS | Encounter Summary ---
Author Organization [facility] Address [address] [place] [address] Care Team Providers Care Director Clinical Pharmacology Name Role Phone Ref, Hasnopcp Primary Care Provider Unavailabl e Encounter Details Date Type Department Care Team (Late st Contact Info) Description 01/04/2024 Community Orders [facility] EpicCare Link [address] [place] [address] Bethany Lozano, ORACLE ERP ARCHITECT [address] [place] [address] Social History Tobacco Use Types Packs/Day Years [...] filedocumented in this encounter Care Teams Director Clinical Pharmacology Relationship Specialty Start Date End Date Ref, Cadence DO NOT EDIT THIS RECORD VIA PROVIDER ON THE FLY PCP - General Compliance Auditor 12/30/23 documented as of this encounter
== END 2025-05-21 22:10 | disposition left against medical advice (07) ==
PROVIDERS: Emergency Provider Emergency Medicine
DX: F43.0 Acute stress reaction (principal)
CPT/HCPCS: 99281

== ENCOUNTER 2025-05-22 18:10 | Emergency (ER) | payer MEDICARE, MEDICAID, SELFPAY ==
[2025-05-22 18:43] VITALS: BP 148/72; PULSE 82; RESP 18; TEMP 36.7; O2SAT 95; BMI 21.8
--- NOTE | 2025-05-22 18:43 | ED.GENADULT ---
HPI - General Adult General Chief complaint: General Medical Stated complaint: Body Aches back and legs Time Seen by Provider: 05/22/25 19:11 Source: patient, RN notes reviewed and old records reviewed Mode of arrival: ambulatory Limitations: no limitations History of Present Illness ED Provider: Skip HPI narrative: 59-year-old male with past medical history significant for schizoaffective disorder, bipolar type, anxiety, GERD, neurogenic bladder requiring catheterization presenting with multiple complaints. The patient's initial complaints to me is that he is not receiving proper treatment at his senior care. He reports that he can not take it anymore. He also complains of general body aches pain He also reports that his ?bladder fills up with urine and I can not pee. The patient is able to self catheterize He denies any suicidal ideation Related Data Home Medications ?Medication ?Instructions ?Recorded ?Confirmed aripiprazole 30 mg tablet 30 mg PO DAILY 01/31/25 04/14/25 lorazepam 1 mg tablet 1 mg PO DAILY PRN Anxiety 01/31/25 04/14/25 quetiapine 100 mg tablet 100 mg PO BEDTIME 01/31/25 04/14/25 quetiapine 50 mg tablet 50 mg PO BID 01/31/25 04/14/25 olanzapine 10 mg tablet 10 mg PO TID 02/03/25 04/14/25 Previous Rx's ?Medication ?Instructions ?Recorded atorvastatin 20 mg tablet 20 mg PO QPM 90 days #90 tabs 01/10/25 tamsulosin 0.4 mg capsule 0.4 mg PO QAM 90 days #90 caps 01/10/25 cefuroxime axetil 500 mg tablet 500 mg PO BID 7 days #14 tabs 03/10/25 ondansetron 4 mg disintegrating 4 mg PO Q6H PRN nausea and 05/01/25 tablet vomiting #10 tabs cefuroxime axetil 250 mg tablet 250 mg PO BID #14 tabs 05/16/25 Allergies Allergy/AdvReac Type Severity Reaction Status Date / Time No Known Allergies (NO KNOWN Allergy Unknown UNKNOWN Verified 05/22/25 18:45 ALLERGIES) Review of Systems Constitutional: Constitutional: Reports body ache(s), Denies chills, Denies fever(s) and Denies headache(s) Eyes: Eyes: Denies blurry vision ENT: Denies vertigo, Denies dizziness and Denies headache(s) Cardiovascular: Cardiovascular: Denies chest pain and Denies dyspnea on exertion Respiratory: Respiratory: Denies cough and Denies dyspnea on exertion Gastrointestinal: Gastrointestinal: Denies abdominal pain, Denies nausea and Denies vomiting Genitourinary: Genitourinary: Reports difficulty urinating Musculoskeletal: Musculoskeletal: Denies back pain Integumentary/Breasts: Skin/Breast: Denies rash Neurologic: Denies vertigo, Denies dizziness and Denies headache(s) Psychiatric: Psychiatric: Reports anxiety, Denies visual hallucinations, Denies homicidal ideation and Denies suicidal ideation [facility] Past Medical History Medical History Acute anxiety Smoker GERD without esophagitis Tubular adenoma of colon (~2018) Personal history of nicotine dependence Constipation Back pain Schizoaffective disorder, bipolar type Anxiety Benign prostatic hyperplasia with lower urinary tract symptoms Pure hypercholesterolemia Thought disorder Bipolar 1 disorder Mood disorder Surgical History History of colonoscopy (~04/2019) History of prostate surgery (~04/2019) History of open reduction and internal fixation (ORIF) procedure (~08/2018) Family History Family History Father Lung cancer BPH (benign prostatic hyperplasia) Mother Dementia Brother Myocardial infarction Other Mental health problem Substance abuse Social History Social History Household Members: Other Housing: Other Housing Other:: Intermediate Do you presently have visiting nurse or other home services: No Alcohol intake: never Patient Tobacco Use Status: Current everyday Tobacco user Tobacco use type: Cigarette Cigarette Packs Per Day: 0.5 Cigarettes Per Day: 10.0 Years Smoked: 10 e-Cigarette/Vaping Use: Never Used Second Hand Smoke Exposure: Yes Advance Directives: No Advance Directives Information Provided: No service: No Current occupational status: employed and disabled Current occupation: [employer] Sexual orientation: Straight/Heterosexual Cognitive needs: No Hearing needs: No Vision needs: Yes Physical Exam ED Vital Signs: Vital Signs - 24 hr 05/22/25 18:43 Temperature 98.1 F Pulse Rate 82 Respiratory Rate 18 Blood Pressure 148/72 H Pulse Oximetry 95 Oxygen Delivery Method Room Air BMI result Body Mass Index 21.8 Const General: healthy appearing, comfortable, no acute distress, alert and awake Nutritional Appearance: well nourished Orientation/consciousness: patient oriented x3 HENMT Head: Yes normocephalic and Yes atraumatic Eyes Eyelids: Yes eyelids normal Conjunctivae: conjunctivae normal Sclerae: sclerae normal Corneas: corneas normal Pupils: Equal, round and reactive pupils present EOM: EOMs intact bilaterally Neck Neck: Yes full ROM Resp Effort & Inspection: normal respiratory effort, able to speak in complete sentences and not labored Cardio Rate: regular rate Rhythm: regular rhythm GI Inspection: No distended Palpation (GI): Soft to palpation, not firm, nontender, no guarding and not rigid Skin General skin exam: elasticity normal Neuro General: patient oriented x3 Cranial nerves: Yes Equal, round and reactive pupils present and Yes Bilaterally intact EOM present Cognition (Neuro): normal cognition Extrem Other: Moving all extremities well without any obvious deformities Course Course Course Narrative: This is an RME: Additional HPI, ROS, PE not included below will be deferred to primary provider. RME assessment and note performed by: Maritza Krishnamurthy PA-C This is a 10-catn-erz-male who presents to the ER with a complaint of body aches. Reports that his symptoms started several days ago. Reports that he is currently on antibiotics for a UTI. Also endorsing stress in regards to his senior care. Plan: Labs, Viral swabs Reevaluation(s) Reevaluation #1: The patient's labs are essentially unremarkable, viral swabs negative. He would not provide a urinalysis though he had 1 3 days ago that was without signs of infection. He is requesting discharge and he will be discharged at this time. Normalized he has no suprapubic pain and I do not suspect acute urinary retention. He reports that he had straight cath at home that he may use when he needs to Time: 21:28 Medical Decision Making Medical Decision Making MDM Narrative: 59-year-old male past medical history as above presents for evaluation of multiple complaints including issues with the senior care which she is well known to this department for previous presentations. I reviewed his care plan. We will address his medical complaints of body aches and difficulty urinating with basic labs, viral swabs and a urinalysis. His vital signs are stable and he is quite well appearing. The patient is not suicidal. Differential Diagnosis Differential Diagnoses: The differential diagnosis associated with the presentation includes BPH Neurogenic bladder Anxiety Schizoaffective disorder UTI Lab Data 05/22/25 20:29 05/22/25 20:29 Labs: Lab Results 05/22/25 05/22/25 Range/Units 20:27 20:29 WBC 6.0 (4.8-10.8) X10*3/uL RBC 4.36 L (4.60-5.80) X10*6/uL Hgb 13.8 L (14.0-18.0) g/dl Hct 40.4 L (42.0-52.0) % MCV 92.7 (80.0-98.0) fL MCH 31.7 (27.0-33.0) pg MCHC 34.2 (31.0-36.0) g/dl RDW 14.4 (11.0-16.0) % Plt Count 142 L (160-400) X10*3/uL MPV 10.6 (9.4-12.4) fL Immature Gran % (Auto) 0.5 H (0.0-0.4) % Neut % (Auto) 46.8 (45-73) % Lymph % (Auto) 32.6 (20-40) % Cooke % (Auto) 14.1 H (2-11) % Eos % (Auto) 4.7 H (0-4) % Baso % (Auto) 1.3 (0-2) % Lymph # (Auto) 2.0 (1.2-4.9) X10*3/uL Cooke # (Auto) 0.9 (0.1-1.2) X10*3/uL Eos # (Auto) 0.3 (0.0-0.4) X10*3/uL Baso # (Auto) 0.1 (0.0-0.2) X10*3/uL Abs Immat Gran (auto) 0.03 (0.00-0.03) X10*3/uL Absolute Neuts (auto) 2.8 (2.0-8.3) x10*3/uL Absolute Nucleated RBC 0.000 (0.0-0.012) X10*3/uL Nucleated RBC % (auto) 0.0 (0.0-0.2) /100WBC Sodium 139 (135-145) mmol/L Potassium 4.2 (3.3-5.1) mmol/L Chloride 107 (96-108) mmol/L Carbon Dioxide 25 (22-29) mmol/L Anion Gap 11 L (12-20) BUN 11 (9-16) mg/dL Creatinine 0.86 (0.5-1.4) mg/dL Estim Creat Clear Calc 87.7 Estimated GFR > 60 Random Glucose 95 (60-115) mg/dL Calcium 9.1 (8.4-10.2) mg/dL Magnesium 1.9 (1.6-2.6) mg/dL Total Bilirubin 0.2 (0.0-1.0) mg/dL Direct Bilirubin < 0.2 (0.0-0.5) mg/dL AST 23 (5-37) U/L ALT 17 (0-40) U/L Alkaline Phosphatase 56 (39-117) U/L Total Protein 6.7 (6.5-8.0) g/dL Albumin 4.1 (3.5-5.0) g/dL Influenza Type A (PCR) NEGATIVE (Negative) Influenza Type B (PCR) NEGATIVE (Negative) RSV RNA Qual (PCR) NEGATIVE (Negative) SARS-CoV-2 RNA (RT-PCR) NEGATIVE (Negative) Discharge Plan Discharge Clinical Impression: Body aches Patient Disposition: Home, Self-Care Instructions: Neurogenic Bladder (ED) Additional Instructions: You were seen in the Emergency Department today. ?We understand that you have long standing concerns with your senior care. Given the terminal operations manager issues you deal with we advise when you are struggling with these events and feelings that you reach out to your therapist, your counselors, and your CHD worker. You can always call CHD Crisis [phone]. Please follow up with your outpatient providers. Please utilize your resources in the community for your longstanding issues and utilize the emergency department for emergent medical and psychiatric needs. Prescriptions: No Action quetiapine 100 mg tablet 100 mg PO BEDTIME lorazepam 1 mg tablet 1 mg PO DAILY PRN (Reason: Anxiety) aripiprazole 30 mg tablet 30 mg PO DAILY quetiapine 50 mg tablet 50 mg PO BID olanzapine 10 mg tablet 10 mg PO TID ondansetron 4 mg tablet,disintegrating 4 mg PO Q6H PRN (Reason: nausea and vomiting) Qty: 10 0RF cefuroxime axetil 250 mg tablet 250 mg PO BID Qty: 14 0RF cefuroxime axetil 500 mg tablet 500 mg PO BID 7 Days Qty: 14 0RF tamsulosin 0.4 mg capsule 0.4 mg PO QAM 90 Days Qty: 90 0RF atorvastatin 20 mg tablet 20 mg PO QPM 90 Days Qty: 90 3RF Print Language: Ecuadorean
--- OUTSIDE RECORDS SUMMARY | 2025-05-22 19:59 | XMS_ITS | Clinical Summary ---
Author Organization [facility] Address [address] [place] [address] Care Team Providers Care Field Laboratory Operator Name Role Phone Ref, Hasnopcp Primary [...] Plan (01/03/2024 10:49 AM EDT): Presented from [facility] with hyponatremia (initially 123). Also had [...] 123. On arrival to ED patient had Shcafer placed. BMP showed sodium 122 with normal [...] Seroquel 25 mg twice daily Presents from [facility]'s forensic unit with documented history of schizophrenia. Continue home aripiprazole 20mg daily Continue home carbamazepine 500 mg twice daily Continue home Zyprexa 15 mg nightly Continue home Seroquel 25 mg twice daily Consider psychiatry consult if concern that antipsychotic medications are causing SIADH Patient presents from [facility], requires constant observation Assessment & Plan (01/02/2024 11:43 AM EDT): Home medications: aripiprazole 20 mg daily, carbamazepine 500 mg twice daily, Zyprexa 15 mg nightly, Seroquel 25 mg twice daily Presents from [facility]'s forensic unit with documented history of schizophrenia. Continue home aripiprazole 20mg daily Continue home carbamazepine 500 mg twice daily Continue home Zyprexa 15 mg nightly Continue home Seroquel 25 mg twice daily Consider psychiatry consult if concern that antipsychotic medications are causing SIADH Patient presents from [facility], requires constant observation BPH (benign prostatic hyperplasia) 12/30/2023 Assessment & Plan (01/03/2024 2:33 PM EDT): Paperwork from the [facility] indicates history of BPH with prior need for intermittent catheterization requiring urology evaluation in the past, records not available in our system). Per documentation from [facility] patient has seen urology at [facility] in [place]. He was started on Flomax outpatient. In [...] (01/02/2024 11:43 AM EDT): Paperwork from the [facility] indicates history of BPH with prior need for intermittent catheterization requiring urology evaluation in the past, records not available in our system). Per documentation from [facility] patient has seen urology at [facility] in [place]. He was started on Flomax outpatient. In [...] 06/05/2042 01/29/2024 Insurance [place] [id number] MEDICARE [facility] Advance Directives * Full Code (Latest Code Status on File) Date Activated Date Inactivated Comments 12/30/2023 7:22 PM 01/03/2024 8:48 PM * Presumed Full Code Date Activated Date Inactivated Comments 12/30/2023 7:00 PM 12/30/2023 7:22 PM Care Teams Field Laboratory Operator Relationship Specialty Start Date End Date Ref, Cadence DO NOT EDIT THIS RECORD VIA PROVIDER ON THE FLY PCP - General [place] 12/30/23
--- OUTSIDE RECORDS SUMMARY | 2025-05-22 19:59 | XMS_ITS | Clinical Summary ---
Author Organization [facility] Address [address] [place] [address] Phone Care Team Providers Care Assistant Boys Track Coach Name Role Phone Dk Rodriguez MD Primary Care Provider [phone] Allergies No known active allergies Medications No known medications Encounters Date Type Department Care Team Description 04/10/2025 8:45 PM EST - 04/10/2025 10:25 PM EST Emergency [facility] Emergency [address] [place] [phone] Discharge Disposition: Home or Self Care 03/30/2025 9:37 PM EDT - 03/30/2025 11:09 PM EDT Emergency [facility] Emergency [address] [place] [phone] Discharge Disposition: Left Against Medical Advice 03/06/2025 9:24 PM EDT - 03/06/2025 9:57 PM EDT Emergency [facility] Emergency [address] [place] [phone] Discharge Disposition: Home or Self Care from [...] Insurance MEDICARE [place] - [place] Care Teams Assistant Boys Track Coach Relationship Specialty Start Date End Date Dk Rodriguez MD [address] [place] [address] [address] [place] PCP - General Internal Medicine 07/16/24
--- OUTSIDE RECORDS SUMMARY | 2025-05-22 19:59 | XMS_ITS | Encounter Summary ---
Author Organization [facility] Address [address] [place] [address] Care Team Providers Care Apple Solutions Consultant Name Role Phone Ref, Hasnopcp Primary Care Provider Unavailabl e Encounter Details Date Type Department Care Team (Late st Contact Info) Description 01/04/[address] [facility] EpicCare Link [address] [place] [address] Bethany Lozano, CLUB MANAGER [address] [place] [address] Social History Tobacco Use Types Packs/Day Years [...] on filedocumented in this encounter Care Teams Apple Solutions Consultant Relationship Specialty Start Date End Date Ref, Cadence DO NOT EDIT THIS RECORD VIA PROVIDER ON THE FLY PCP - General High School Music Instructor 12/30/23 documented as of this encounter
[2025-05-22 20:33] LABS: MANUAL DIFF FLAG NO
[2025-05-22 20:36] LABS: Hematocrit 40.4 % (42.0-52.0); Hemoglobin 13.8 g/dl (14.0-18.0); Imm Gran Abs Auto 0.03 X10*3/uL (0.00-0.03); Imm Gran Pct Auto 0.5 % (0.0-0.4); Lymphocytes Absolute Auto 2.0 X10*3/uL (1.2-4.9); Mean Corpuscular HGB Conc 34.2 g/dl (31.0-36.0); Mean Corpuscular Hemoglobin 31.7 pg (27.0-33.0); Mean Corpuscular Volume 92.7 fL (80.0-98.0); NRBC Abs Auto 0.000 X10*3/uL (0.0-0.012); NRBC Pct Auto 0.0 /100WBC (0.0-0.2); Platelet Count 142 X10*3/uL (160-400); Red Blood Count 4.36 X10*6/uL (4.60-5.80); White Blood Count 6.0 X10*3/uL (4.8-10.8)
[2025-05-22 20:52] LABS: Alanine Aminotransferase 17 U/L (0-40); Albumin Level 4.1 g/dL (3.5-5.0); Alkaline Phosphatase 56 U/L (39-117); Anion Gap 11 (12-20); Aspartate Amino Transferase 23 U/L (5-37); Blood Urea Nitrogen 11 mg/dL (9-16); Calcium 9.1 mg/dL (8.4-10.2); Carbon Dioxide 25 mmol/L (22-29); Chloride 107 mmol/L (96-108); Creatinine Clr Calc Pharmacy 87.7; Estimated Glomerular Filt Rate > 60; Magnesium 1.9 mg/dL (1.6-2.6); Potassium 4.2 mmol/L (3.3-5.1); Sodium 139 mmol/L (135-145); Total Protein 6.7 g/dL (6.5-8.0)
[2025-05-22 21:21] LABS: Resp Syncy Virus RNA Qual PCR NEGATIVE (Negative); SARS COV2 PCR INHOUSE NEGATIVE (Negative)
[2025-05-22 21:51] VITALS: BP 148/72; PULSE 82; RESP 18; TEMP 36.7; O2SAT 95
== END 2025-05-22 21:51 | disposition home or self-care (01) ==
PROVIDERS: Physician Assistant Medical; Emergency Provider Emergency Medicine Emergency Medical Services; PCP Internal Medicine
DX: M79.10 Myalgia, unspecified site (principal); Z03.818 Encounter for observation for suspected exposure to other biological agents ruled out; Z72.89 Other problems related to lifestyle; N31.9 Neuromuscular dysfunction of bladder, unspecified; Z79.899 Other long term (current) drug therapy; F17.210 Nicotine dependence, cigarettes, uncomplicated
CPT/HCPCS: 80048; 80076; 83735; 85025; 87637; 99282; 99283

== ENCOUNTER 2025-05-24 13:54 | Emergency (ER) | payer MEDICARE, MEDICAID, SELFPAY ==
--- OUTSIDE RECORDS SUMMARY | 2025-05-22 05:24 | XMS_ITS | Continuity of Care Document ---
Author Organization [facility] Address [address] [place] [address]- Care Team Providers Care Financial Report Service Sales Agent Name Role Phone Dk Rodriguez MD Primary Care Physician [facility] [id number] Date(s): 05/22/25 - 05/22/[address] [address]- Discharge Disposition: A-D/C Walkout Attending Physician: Not [...] oldest [Reference Range]: 1 Height 175 cm (05/22/25 12:33 AM) Weight 66 kg (05/22/25 12: AM) Oxygen Saturation [94-100 %] 100 % (05/22/25 12: AM) Pulse Rate [55-90 bpm] 75 bpm (05/22/25 12:33 AM) Body Mass Index [18.5-24.99 kg/m2] 21.55 kg/m2 (05/22/25 12: AM) Blood Pressure [90-138/55-84 mm Hg] 119/ 76mm Hg (05/22/25 12:33 AM) Respiratory Rate [16-30 br/min] 17 br/mi n (05/22/25 12: AM) Temperature [96.8-100.4 DegF] 97.5 DegF (05/22/25 12:33 AM) Mode of Delivery (Oxygen) Room air (05/22/25 12:33 AM) Blood pressure sites Arm, left (05/22/25 12:33 AM) Temperature Route Oral (05/22/25 12:33 AM) Dry Weight 66 kg (05/22/25 12:33 AM) Weight Obtained Via Patient/family state d (05/22/25 12:33 AM) Dry Weight Obtained Via Patient/family s tated (05/22/25 12:33 AM) Social History Social History Type Response Smoking Status Current every day sm oker; Tobacco user in household: Yes entered on: 04/26/14 Sex Male Sex Representation Male (finding) Status N/A Patient Care team information Care Team Personnel Name: Dk Rodriguez MD Position: Reference Physician Member Role: PCP Address: [address] [place], [place] [address] Telecom: Name: Dena Bernal RN Position: S RN Member Role: Primary Care Nurse Name: Irma Stout RN Position: S RN Member Role: Primary Care Nurse Care Team Related Persons Name: RIZWANA MENDOZA Name: RIGO TORIBIO Name: STAFF, [facility] Insurance Providers Guarantor name: RAGHAV TORIBIO Health Plan Information #: 1 Payer: [employer] Payer Identifier: SRIDHAR Member Number: [id number] Group Number: [id number] Subscriber Identifier: [id number] Relationship to Subscriber: self Coverage Type: Self-pay (Includes applicants for insurance and Medicaid applicants) Coverage Verification Date: NA Telecom: NA Address:
--- OUTSIDE RECORDS SUMMARY | 2025-05-23 22:35 | XMS_ITS | Encounter Summary ---
Author Organization [facility] Address [address] [place] [address] Care Team Providers Care Bakery Associate Name Role Phone Dk Rodriguez MD Primary Care Provider + [phone] Reason for Visit * Reason Comments Male Problem Im on a lot of anti biotics and I don't feel good. Encounter Details Date Type Department Care Team (Late st Contact Info) Description 05/23/2025 10:35 PM EST - 05/24/2025 3:[address] [facility] Emergency [address] [place] [phone] Discharge Disposition: Home or Self Care Social [...] 11:32 PM EST Lucie Tucker RN * [place] Suicide Severity Rating Scale (Screener/Recent Self-Report) Question [...] on filedocumented in this encounter Care Teams Bakery Associate Relationship Specialty Start Date End Date Dk Rodriguez MD [address] [place] [address] Dr Jackie [facility] [place] PCP - General Internal Medicine 07/16/24 documented as of this encounter
[2025-05-24 14:09] VITALS: BP 133/79; PULSE 87; RESP 18; TEMP 36.8; O2SAT 95; BMI 21.8
--- NOTE | 2025-05-24 14:14 | ED.MALEGU ---
HPI - Male Genitourinary General Chief complaint: Urogenital-Male Stated complaint: abdominal pain Time Seen by Provider: 05/24/25 14:27 Source: patient Mode of arrival: ambulatory Limitations: no limitations History of Present Illness ED Provider: Henna Dodge APRN HPI Narrative: This is a 59-year-old male who has a history of BPH who straight caths himslf every 8 hours who presents to the ER with complaints of inability to void since last night. Patient reports he last straight cath himself last evening before he went to bed. He has not straight cath himself today. He reports abdominal discomfort. No vomiting or fever. No urinary burning or hematuria. He reports he did not straight cath himself today because it hurts when he does it. Related Data Home Medications ?Medication ?Instructions ?Recorded ?Confirmed aripiprazole 30 mg tablet 30 mg PO DAILY 01/31/25 04/14/25 lorazepam 1 mg tablet 1 mg PO DAILY PRN Anxiety 01/31/25 04/14/25 quetiapine 100 mg tablet 100 mg PO BEDTIME 01/31/25 04/14/25 quetiapine 50 mg tablet 50 mg PO BID 01/31/25 04/14/25 olanzapine 10 mg tablet 10 mg PO TID 02/03/25 04/14/25 Previous Rx's ?Medication ?Instructions ?Recorded atorvastatin 20 mg tablet 20 mg PO QPM 90 days #90 tabs 01/10/25 tamsulosin 0.4 mg capsule 0.4 mg PO QAM 90 days #90 caps 01/10/25 cefuroxime axetil 500 mg tablet 500 mg PO BID 7 days #14 tabs 03/10/25 ondansetron 4 mg disintegrating 4 mg PO Q6H PRN nausea and 05/01/25 tablet vomiting #10 tabs cefuroxime axetil 250 mg tablet 250 mg PO BID #14 tabs 05/16/25 Allergies Allergy/AdvReac Type Severity Reaction Status Date / Time No Known Allergies (NO KNOWN Allergy Unknown UNKNOWN Verified 05/24/25 14:13 ALLERGIES) [facility] Past Medical History Medical History Acute anxiety Smoker GERD without esophagitis Tubular adenoma of colon (~2018) Personal history of nicotine dependence Constipation Back pain Schizoaffective disorder, bipolar type Anxiety Benign prostatic hyperplasia with lower urinary tract symptoms Pure hypercholesterolemia Thought disorder Bipolar 1 disorder Mood disorder Surgical History History of colonoscopy (~04/2019) History of prostate surgery (~04/2019) History of open reduction and internal fixation (ORIF) procedure (~08/2018) Family History Family History Father Lung cancer BPH (benign prostatic hyperplasia) Mother Dementia Brother Myocardial infarction Other Mental health problem Substance abuse Social History Social History Household Members: Other Housing: Other Housing Other:: Jail Do you presently have visiting nurse or other home services: No Alcohol intake: never Patient Tobacco Use Status: Current everyday Tobacco user Tobacco use type: Cigarette Cigarette Packs Per Day: 0.5 Cigarettes Per Day: 10.0 Years Smoked: 10 e-Cigarette/Vaping Use: Never Used Second Hand Smoke Exposure: Yes Advance Directives: No Advance Directives Information Provided: Yes Do you have a plan to hurt others: No Plan service: No Current occupational status: employed and disabled Current occupation: [employer] Sexual orientation: Straight/Heterosexual Cognitive needs: No Hearing needs: No Vision needs: Yes Physical Exam Vital Signs: Vital Signs: Last Vital Signs Temp 98.3 F 05/24/25 14:09 Pulse 87 05/24/25 14:09 Resp 18 05/24/25 14:09 BP 133/79 05/24/25 14:09 Pulse Ox 95 05/24/25 14:09 O2 Del Method Room Air 05/24/25 14:09 BMI result Body Mass Index 21.8 Medical Decision Making Medical Decision Making MDM Narrative: This is a 59-year-old male who has a history of BPH who straight caths himslf every 8 hours who presents to the ER with complaints of inability to void since last night. Patient reports he last straight cath himself last evening before he went to bed. He has not straight cath himself today. He reports abdominal discomfort. No vomiting or fever. No urinary burning or hematuria. He reports he did not straight cath himself today because it hurts when he does it. Bladder scanned >1000ml Patient straight cathed Will send home and have him continue to straight cath and f.u with urology Differential Diagnosis Differential Diagnoses: The differential diagnosis associated with the presentation includes Urinary retention secondary to chronic BPH Admission/Observation Consideration of admission/observation: Escalation of care including admission/observation considered Discharge Plan Discharge Clinical Impression: BPH with obstruction/lower urinary tract symptoms Patient Disposition: Home, Self-Care Instructions: Enlarged Prostate (BPH) (ED) Additional Instructions: you must straight cath herself at home every 8 hours follow-up with urology Prescriptions: No Action quetiapine 100 mg tablet 100 mg PO BEDTIME lorazepam 1 mg tablet 1 mg PO DAILY PRN (Reason: Anxiety) aripiprazole 30 mg tablet 30 mg PO DAILY quetiapine 50 mg tablet 50 mg PO BID olanzapine 10 mg tablet 10 mg PO TID ondansetron 4 mg tablet,disintegrating 4 mg PO Q6H PRN (Reason: nausea and vomiting) Qty: 10 0RF cefuroxime axetil 250 mg tablet 250 mg PO BID Qty: 14 0RF cefuroxime axetil 500 mg tablet 500 mg PO BID 7 Days Qty: 14 0RF tamsulosin 0.4 mg capsule 0.4 mg PO QAM 90 Days Qty: 90 0RF atorvastatin 20 mg tablet 20 mg PO QPM 90 Days Qty: 90 3RF Print Language: Maltese
--- OUTSIDE RECORDS SUMMARY | 2025-05-24 14:24 | XMS_ITS | Clinical Summary ---
Author Organization [facility] Address [address] [place] [address] Care Team Providers Care Take Up Supervisor Name Role Phone Ref, Hasnopcp Primary Care [...] Plan (01/03/2024 2:32 PM EDT): Presents from [facility] in the setting of urinary [...] Plan (01/02/2024 11:43 AM EDT): Presents from [facility] in the setting of urinary [...] Seroquel 25 mg twice daily Presents from [facility]'s forensic unit with documented history of schizophrenia. Continue home aripiprazole 20mg daily Continue home carbamazepine 500 mg twice daily Continue home Zyprexa 15 mg nightly Continue home Seroquel 25 mg twice daily Consider psychiatry consult if concern that antipsychotic medications are causing SIADH Patient presents from [facility], requires constant observation Assessment & Plan (01/02/2024 11:43 AM EDT): Home medications: aripiprazole 20 mg daily, carbamazepine 500 mg twice daily, Zyprexa 15 mg nightly, Seroquel 25 mg twice daily Presents from [facility]'s forensic unit with documented history of schizophrenia. Continue home aripiprazole 20mg daily Continue home carbamazepine 500 mg twice daily Continue home Zyprexa 15 mg nightly Continue home Seroquel 25 mg twice daily Consider psychiatry consult if concern that antipsychotic medications are causing SIADH Patient presents from [facility], requires constant observation BPH (benign prostatic hyperplasia) 12/30/2023 Assessment & Plan (01/03/2024 2:33 PM EDT): Paperwork from the [facility] indicates history of BPH with prior need for intermittent catheterization requiring urology evaluation in the past, records not available in our system). Per documentation from [facility] patient has seen urology at [facility] in [place]. He was started on Flomax outpatient. In [...] available in our system). Per documentation from [facility] patient has seen urology at [facility] in [place]. He was started on Flomax outpatient. In [...] history exists Tobacco Screening 06/05/2042 01/29/2024 [place] [id number] MEDICARE [facility] Advance Directives * Full Code (Latest Code Status on File) Date Activated Date Inactivated Comments 12/30/2023 7:22 PM 01/03/2024 8:48 PM * Presumed Full Code Date Activated Date Inactivated Comments 12/30/2023 7:00 PM 12/30/2023 7:22 PM Care Teams Take Up Supervisor Relationship Specialty Start Date End Date Ref, Cadence DO NOT EDIT THIS RECORD VIA PROVIDER ON THE FLY PCP - General Records Management Manager 12/30/23
--- OUTSIDE RECORDS SUMMARY | 2025-05-24 14:24 | XMS_ITS | Encounter Summary ---
Author Organization [facility] Address [address] [place] [address] Care Team Providers Care Customs Entry Clerk Name Role Phone Ref, Hasnopcp Primary Care Provider Unavailabl e Encounter Details Date Type Department Care Team (Late st Contact Info) Description 01/04/2024 Community Orders [facility] EpicCare Link [address] [place] [address] Bethany Lozano, CV RN [address] [place] [address] Social History Tobacco Use Types Packs/Day Years [...] on filedocumented in this encounter Care Teams Customs Entry Clerk Relationship Specialty Start Date End Date Ref, Cadence DO NOT EDIT THIS RECORD VIA PROVIDER ON THE FLY PCP - General Screw Machine Setter 12/30/23 documented as of this encounter
--- OUTSIDE RECORDS SUMMARY | 2025-05-24 14:24 | XMS_ITS | Clinical Summary ---
Author Organization [facility] Address [address] [place] [address] Phone Care Team Providers Care Senior Speech Pathologist Name Role Phone Dk Rodriguez MD Primary Care Provider [phone]- [phone] Allergies No known active allergies Medications No known medications Encounters Date Type Department Care Team Description 05/23/2025 10:35 PM EST - 05/24/2025 3:[address] [facility] [address] [place] [phone] Discharge Disposition: Home or Self Care 04/10/2025 8:45 PM EST - 04/10/2025 10:25 PM EST Emergency [facility] Emergency [address] [place] [phone] Discharge Disposition: Home or Self Care 03/30/2025 9:37 PM EDT - 03/30/2025 11:09 PM EDT Emergency [facility] Emergency [address] [place] [phone] Discharge Disposition: Left Against Medical Advice 03/06/2025 9:24 PM EDT - 03/06/2025 9:[address] [facility] Emergency [address] [place] [phone] Discharge Disposition: Home or Self Care from Last 3 Months Medical History Medical History Date Comments Bipolar 1 disorder (CMS/HCC V24, CMS/HCC V28) Mood disorder ([facility] V24) Hyperactivity of [...] Insurance MEDICARE MEDICAID - [place] Care Teams Senior Speech Pathologist Relationship Specialty Start Date End Date Dk Rodriguez MD [address] [place] [address] [address] COY Lucero PCP - General Internal Medicine 07/16/24
[2025-05-24 15:19] VITALS: BP 133/79; PULSE 87; RESP 18; TEMP 36.8; O2SAT 95
--- NOTE | 2025-05-24 15:20 | PC.NURSE ---
Pt comes to ED today with c/o bladder pressure from urinary retention. Pt reports he has not been self cathing on a regular schedule because it causes discomfort. Bladder scan shows approx 1000ml urine. Straight cath performed without complication. 1300mls pale yellow urine drained. Post cath bladder scan shows 0mls left in bladder. Findings and results reported to MACHINE HEDDLE CLEANER--no further orders given and Pt cleared for d/c. Pt advised to resume cathing himself on a regular schedule to avoid future instances of bladder pain/distension. Pt verbalizes understanding of this information.
== END 2025-05-24 15:28 | disposition home or self-care (01) ==
PROVIDERS: Emergency Provider Emergency Medicine; PCP Internal Medicine
DX: N40.1 Benign prostatic hyperplasia with lower urinary tract symptoms (principal); R10.9 Unspecified abdominal pain; F17.200 Nicotine dependence, unspecified, uncomplicated; Z71.6 Tobacco abuse counseling
CPT/HCPCS: 51702; 51798; 99283; 99285

== ENCOUNTER 2025-05-27 11:18 | Emergency (ER) | payer MEDICARE, MEDICAID, SELFPAY ==
--- OUTSIDE RECORDS SUMMARY | 2025-05-23 22:35 | XMS_ITS | Encounter Summary ---
Author Organization [facility] Address [address] [place] [address] Care Team Providers Care Distribution Center Associate Name Role Phone Dk Rodriguez MD Primary Care Provider + [phone] Reason for Visit * Reason Comments Male Problem Im on a lot of anti biotics and I don't feel good. Encounter Details Date Type Department Care Team (Late st Contact Info) Description 05/23/2025 10:35 PM EST - 05/24/2025 3:39 AM EST Emergency [facility] Emergency [address] [place] [phone] Discharge Disposition: Home or Self Care Social [...] Date of Assessment Author No Risk Indicated 05/23/2025 11:32 PM EST Lucie Tucker RN * [place] Suicide Severity Rating Scale (Screener/Recent Self-Report) Question Answer Date of Assessment Author 1. Wish to be (Past 1 Month) No 05/23/2025 11:32 PM Ab Adams RN 2. Non-Specific Active Suicidal Thoughts (Past 1 Month) No 05/23/2025 11:32 PM Ab Adams RN 6. Suicidal Behavior (Lifetime) No 05/23/2025 11:32 PM EST Ab Akers RN documented as of this encounter Mental [...] documented in this encounter Progress Notes * Lucie Akers RN - 05/23/2025 11:28 PM EST Pt to ER with urinary complaints. States he is on multiple antibiotics and can't stop urinating. Heis very vague about his symptoms. Rpts having lower abd pain. documented in this encounter Plan of Treatment Not on file documented as of this encounter Visit Diagnoses Not on filedocumented in this encounter Care Teams Distribution Center Associate Relationship Specialty Start Date End Date Dk Rodriguez MD [address] [place] [address] Dr Jackie [facility] [place] PCP - General Internal Medicine 07/16/24 documented as of this encounter
[2025-05-27 11:46] VITALS: BP 132/62; PULSE 76; RESP 18; TEMP 36.7; O2SAT 95; BMI 21.9
--- NOTE | 2025-05-27 11:51 | ED.GENADULT ---
HPI - General Adult General Chief complaint: General Medical Stated complaint: Kicked Out Of Custodial History of Present Illness HPI narrative: patient Left before completion of treatment by ED provider Related Data Home Medications ?Medication ?Instructions ?Recorded ?Confirmed aripiprazole 30 mg tablet 30 mg PO DAILY 01/31/25 04/14/25 lorazepam 1 mg tablet 1 mg PO DAILY PRN Anxiety 01/31/25 04/14/25 quetiapine 100 mg tablet 100 mg PO BEDTIME 01/31/25 04/14/25 quetiapine 50 mg tablet 50 mg PO BID 01/31/25 04/14/25 olanzapine 10 mg tablet 10 mg PO TID 02/03/25 04/14/25 Previous Rx's ?Medication ?Instructions ?Recorded atorvastatin 20 mg tablet 20 mg PO QPM 90 days #90 tabs 01/10/25 tamsulosin 0.4 mg capsule 0.4 mg PO QAM 90 days #90 caps 01/10/25 cefuroxime axetil 500 mg tablet 500 mg PO BID 7 days #14 tabs 03/10/25 ondansetron 4 mg disintegrating 4 mg PO Q6H PRN nausea and 05/01/25 tablet vomiting #10 tabs cefuroxime axetil 250 mg tablet 250 mg PO BID #14 tabs 05/16/25 Allergies Allergy/AdvReac Type Severity Reaction Status Date / Time No Known Allergies (NO KNOWN Allergy Unknown UNKNOWN Verified 05/27/25 18:37 ALLERGIES) [facility] Past Medical History Medical History Acute anxiety Smoker GERD without esophagitis Tubular adenoma of colon (~2018) Personal history of nicotine dependence Constipation Back pain Schizoaffective disorder, bipolar type Anxiety Benign prostatic hyperplasia with lower urinary tract symptoms Pure hypercholesterolemia Thought disorder Bipolar 1 disorder Mood disorder Surgical History History of colonoscopy (~04/2019) History of prostate surgery (~04/2019) History of open reduction and internal fixation (ORIF) procedure (~08/2018) Family History Family History Father Lung cancer BPH (benign prostatic hyperplasia) Mother Dementia Brother Myocardial infarction Other Mental health problem Substance abuse Social History Social History Household Members: Other Housing: Other Housing Other:: Custodial Do you presently have visiting nurse or other home services: No Alcohol intake: never Patient Tobacco Use Status: Current everyday Tobacco user Tobacco use type: Cigarette Cigarette Packs Per Day: 0.5 Cigarettes Per Day: 10.0 Years Smoked: 10 e-Cigarette/Vaping Use: Never Used Second Hand Smoke Exposure: Yes Advance Directives: No Advance Directives Information Provided: No service: No Current occupational status: employed and disabled Current occupation: [employer] Sexual orientation: Straight/Heterosexual Cognitive needs: No Hearing needs: No Vision needs: Yes Physical Exam ED Vital Signs: Vital Signs - 24 hr 05/27/25 11:46 Temperature 98.1 F Pulse Rate 76 Respiratory Rate 18 Blood Pressure 132/62 Pulse Oximetry 95 Oxygen Delivery Method Room Air BMI result Body Mass Index 21.9 Course Course Course Narrative: RME: 59 yold male presents to the ED for issues with nursing home. Patient has had bladder issues but resolved on its own. Patient has self catheter Discharge Plan Discharge Clinical Impression: Normal exam Patient Disposition: Left W/O Completing Treatment Prescriptions: No Action quetiapine 100 mg tablet 100 mg PO BEDTIME lorazepam 1 mg tablet 1 mg PO DAILY PRN (Reason: Anxiety) aripiprazole 30 mg tablet 30 mg PO DAILY quetiapine 50 mg tablet 50 mg PO BID olanzapine 10 mg tablet 10 mg PO TID ondansetron 4 mg tablet,disintegrating 4 mg PO Q6H PRN (Reason: nausea and vomiting) Qty: 10 0RF cefuroxime axetil 250 mg tablet 250 mg PO BID Qty: 14 0RF cefuroxime axetil 500 mg tablet 500 mg PO BID 7 Days Qty: 14 0RF tamsulosin 0.4 mg capsule 0.4 mg PO QAM 90 Days Qty: 90 0RF atorvastatin 20 mg tablet 20 mg PO QPM 90 Days Qty: 90 3RF Discharge Date/Time: 05/27/25 14:11
--- OUTSIDE RECORDS SUMMARY | 2025-05-27 13:34 | XMS_ITS | Clinical Summary ---
Author Organization [facility] Address [address] [place] [address] Phone Care Team Providers Care Corn Shucker Name Role Phone Dk Rodriguez MD Primary Care Provider [phone] Allergies No known active allergies Medications No known medications Encounters Date Type Department Care Team Description 05/23/2025 10:35 PM EST - 05/24/2025 3:39 AM EST [facility] Emergency [address] [place] [phone] Discharge Disposition: Home or Self Care 04/10/2025 8:45 PM EST - 04/10/2025 10:25 PM EST Emergency [facility] Emergency [address] [place] [phone] Discharge Disposition: Home or Self Care 03/30/2025 9:37 PM EDT - 03/30/2025 11:09 PM EDT Emergency [facility] Emergency [address] [place] [phone] Discharge Disposition: Left Against Medical Advice 03/06/2025 9:24 PM EDT - 03/06/2025 9:57 PM EDT [facility] Emergency [address] [place] [phone] Discharge Disposition: Home or Self Care from Last 3 Months Medical History Medical History Date Comments Bipolar 1 disorder (CMS/HCC V24, CMS/HCC V28) Mood disorder ([facility] V24) Hyperactivity of bladder Social [...] Insurance MEDICARE MEDICAID - [place] Care Teams Corn Shucker Relationship Specialty Start Date End Date Dk Rodriguez MD [address] [place] [address] [address] COY Lucero PCP - General Internal Medicine 07/16/24
--- OUTSIDE RECORDS SUMMARY | 2025-05-27 13:34 | XMS_ITS | Encounter Summary ---
Author Organization [facility] Address [address] [place] [address] Care Team Providers Care Biofuels Engineering Manager Name Role Phone Ref, Hasnopcp Primary Care Provider Unavailabl e Encounter Details Date Type Department Care Team (Late st Contact Info) Description 01/04/2024 Community Orders [facility] EpicCare Link [address] [place] [address] Bethany Lozano, RECORD FILING CLERK [address] [place] [address] Social History Tobacco Use Types Packs/Day Years [...] on filedocumented in this encounter Care Teams Biofuels Engineering Manager Relationship Specialty Start Date End Date Ref, Cadence DO NOT EDIT THIS RECORD VIA PROVIDER ON THE FLY PCP - General Home Decorator 12/30/23 documented as of this encounter
--- OUTSIDE RECORDS SUMMARY | 2025-05-27 13:34 | XMS_ITS | Clinical Summary ---
Author Organization [facility] Address [address] [place] [address] Care Team Providers Care Building Repair Maintenance Supervisor Name Role Phone Ref, Hasnopcp Primary [...] Plan (01/03/2024 10:49 AM EDT): Presented from [facility] with hyponatremia (initially 123). Also [...] Seroquel 25 mg twice daily Presents from [facility]'s forensic unit with documented history of schizophrenia. Continue home aripiprazole 20mg daily Continue home carbamazepine 500 mg twice daily Continue home Zyprexa 15 mg nightly Continue home Seroquel 25 mg twice daily Consider psychiatry consult if concern that antipsychotic medications are causing SIADH Patient presents from [facility], requires constant observation Assessment & Plan (01/02/2024 11:43 AM EDT): Home medications: aripiprazole 20 mg daily, carbamazepine 500 mg twice daily, Zyprexa 15 mg nightly, Seroquel 25 mg twice daily Presents from [facility]'s forensic unit with documented history of schizophrenia. Continue home aripiprazole 20mg daily Continue home carbamazepine 500 mg twice daily Continue home Zyprexa 15 mg nightly Continue home Seroquel 25 mg twice daily Consider psychiatry consult if concern that antipsychotic medications are causing SIADH Patient presents from [facility], requires constant observation BPH (benign prostatic hyperplasia) 12/30/2023 Assessment & Plan (01/03/2024 2:33 PM EDT): Paperwork from the [facility] indicates history of BPH with prior need for intermittent catheterization requiring urology evaluation in the past, records not available in our system). Per documentation from [facility] patient has seen urology at [facility] in [place]. He was started on Flomax outpatient. In [...] (01/02/2024 11:43 AM EDT): Paperwork from the [facility] indicates history of BPH with prior need for intermittent catheterization requiring urology evaluation in the past, records not available in our system). Per documentation from [facility] patient has seen urology at [facility] in [place]. He was started on Flomax outpatient. In [...] history exists Tobacco Screening 06/05/2042 01/29/2024 Insurance [place] [id number] MEDICARE [facility] Advance Directives * Full Code (Latest Code Status on File) Date Activated Date Inactivated Comments 12/30/2023 7:22 PM 01/03/2024 8:48 PM * Presumed Full Code Date Activated Date Inactivated Comments 12/30/2023 7:00 PM 12/30/2023 7:22 PM Care Teams Building Repair Maintenance Supervisor Relationship Specialty Start Date End Date Ref, Cadence DO NOT EDIT THIS RECORD VIA PROVIDER ON THE FLY PCP - General Slasher Tender 12/30/23
== END 2025-05-27 14:11 | disposition left against medical advice (07) ==
PROVIDERS: Emergency Provider Emergency Medicine; PCP Internal Medicine
DX: R10.9 Unspecified abdominal pain (principal)
CPT/HCPCS: 99281

== ENCOUNTER 2025-05-27 18:31 | Emergency (ER) | payer MEDICARE, MEDICAID, SELFPAY ==
[2025-05-27 18:35] VITALS: BP 148/73; PULSE 94; RESP 18; TEMP 36.8; O2SAT 96; BMI 23.0
--- NOTE | 2025-05-27 18:52 | ED.GENADULT ---
HPI - General Adult General Chief complaint: General Medical Stated complaint: Issues at the intermediate Time Seen by Provider: 05/27/25 18:41 Source: patient Limitations: no limitations History of Present Illness ED Provider: Rob Cabezas HPI narrative: 59 yold presents to the ED for having issueds with intermediate staff member, who keeps tellin him to leave. Related Data Home Medications ?Medication ?Instructions ?Recorded ?Confirmed aripiprazole 30 mg tablet 30 mg PO DAILY 01/31/25 04/14/25 lorazepam 1 mg tablet 1 mg PO DAILY PRN Anxiety 01/31/25 04/14/25 quetiapine 100 mg tablet 100 mg PO BEDTIME 01/31/25 04/14/25 quetiapine 50 mg tablet 50 mg PO BID 01/31/25 04/14/25 olanzapine 10 mg tablet 10 mg PO TID 02/03/25 04/14/25 Previous Rx's ?Medication ?Instructions ?Recorded atorvastatin 20 mg tablet 20 mg PO QPM 90 days #90 tabs 01/10/25 tamsulosin 0.4 mg capsule 0.4 mg PO QAM 90 days #90 caps 01/10/25 cefuroxime axetil 500 mg tablet 500 mg PO BID 7 days #14 tabs 03/10/25 ondansetron 4 mg disintegrating 4 mg PO Q6H PRN nausea and 05/01/25 tablet vomiting #10 tabs cefuroxime axetil 250 mg tablet 250 mg PO BID #14 tabs 05/16/25 Allergies Allergy/AdvReac Type Severity Reaction Status Date / Time No Known Allergies (NO KNOWN Allergy Unknown UNKNOWN Verified 05/28/25 15:50 ALLERGIES) [facility] Past Medical History Medical History Acute anxiety Smoker GERD without esophagitis Tubular adenoma of colon (~2018) Personal history of nicotine dependence Constipation Back pain Schizoaffective disorder, bipolar type Anxiety Benign prostatic hyperplasia with lower urinary tract symptoms Pure hypercholesterolemia Thought disorder Bipolar 1 disorder Mood disorder Surgical History History of colonoscopy (~04/2019) History of prostate surgery (~04/2019) History of open reduction and internal fixation (ORIF) procedure (~08/2018) Family History Family History Father Lung cancer BPH (benign prostatic hyperplasia) Mother Dementia Brother Myocardial infarction Other Mental health problem Substance abuse Social History Social History Household Members: Other Housing: Other Housing Other:: Intermediate Do you presently have visiting nurse or other home services: No Alcohol intake: never Patient Tobacco Use Status: Current everyday Tobacco user Tobacco use type: Cigarette Cigarette Packs Per Day: 0.5 Cigarettes Per Day: 10.0 Years Smoked: 10 e-Cigarette/Vaping Use: Never Used Second Hand Smoke Exposure: Yes Advance Directives: No Advance Directives Information Provided: No service: No Current occupational status: employed and disabled Current occupation: [employer] Sexual orientation: Straight/Heterosexual Cognitive needs: No Hearing needs: No Vision needs: Yes Physical Exam ED Vital Signs: Vital Signs - 24 hr 05/27/25 18:35 05/27/25 19:18 Temperature 98.3 F 98.3 F Pulse Rate 94 94 Respiratory Rate 18 18 Blood Pressure 148/73 H 148/73 H Pulse Oximetry 96 96 Oxygen Delivery Method Room Air Room Air BMI result Body Mass Index 23.0 Medical Decision Making Medical Decision Making MDM Narrative: Patient is presents to the ED for issues with his intermediate where she constantly has daily. Patient denies any suicidal or homicidal ideation. Patient states no physical complaints. Patient is self catheterizations. Discharge Plan Discharge Clinical Impression: Normal exam Patient Disposition: Home, Self-Care Instructions: Normal Exam (ED) Additional Instructions: You were seen in the Emergency Department today. ?We understand that you have long standing concerns with your intermediate. Given the assistant terminal manager issues you deal with we advise when you are struggling with these events and feelings that you reach out to your therapist, your counselors, and your CHD worker. You can always call CHD Crisis [phone]. Please follow up with your outpatient providers. Please utilize your resources in the community for your longstanding issues and utilize the emergency department for emergent medical and psychiatric needs. Prescriptions: No Action quetiapine 100 mg tablet 100 mg PO BEDTIME lorazepam 1 mg tablet 1 mg PO DAILY PRN (Reason: Anxiety) aripiprazole 30 mg tablet 30 mg PO DAILY quetiapine 50 mg tablet 50 mg PO BID olanzapine 10 mg tablet 10 mg PO TID ondansetron 4 mg tablet,disintegrating 4 mg PO Q6H PRN (Reason: nausea and vomiting) Qty: 10 0RF cefuroxime axetil 250 mg tablet 250 mg PO BID Qty: 14 0RF cefuroxime axetil 500 mg tablet 500 mg PO BID 7 Days Qty: 14 0RF tamsulosin 0.4 mg capsule 0.4 mg PO QAM 90 Days Qty: 90 0RF atorvastatin 20 mg tablet 20 mg PO QPM 90 Days Qty: 90 3RF Interventions: ED Discharge Assessment Last Done: 05/27/25 19:18 Discharge Date/Time: 05/27/25 19:18 Print Language: Amharic
[2025-05-27 19:18] VITALS: BP 148/73; PULSE 94; RESP 18; TEMP 36.8; O2SAT 96
== END 2025-05-27 19:18 | disposition home or self-care (01) ==
PROVIDERS: Emergency Provider Emergency Medicine; PCP Internal Medicine
DX: Z76.89 Persons encountering health services in other specified circumstances (principal)
CPT/HCPCS: 99281; 99282

== ENCOUNTER 2025-05-28 15:41 | Emergency (ER) | payer MEDICARE, MEDICAID, SELFPAY ==
--- NOTE | ~2025-05-28 | XR_ITS ---
CLINICAL HISTORY: pain Abdominal radiographs Comparison: None available Findings: There is a nonobstructive bowel gas pattern. Stool quantity is mildly increased. No pneumoperitoneum or pneumatosis. No acute osseous or soft tissue abnormality. Impression: Mildly increased stool quantity may indicate constipation. This document has been electronically signed by: Hiral Queen MD on 05/28/2025 18:36:14
--- NOTE | 2025-05-28 15:49 | ED.GENADULT ---
HPI - General Adult General Chief complaint: Back Pain/Injury Stated complaint: back and stomach pain Time Seen by Provider: 05/28/25 17:00 Source: patient, RN notes reviewed and old records reviewed Mode of arrival: ambulatory Limitations: no limitations History of Present Illness ED Provider: Skip HPI narrative: 59-year-old male presents for evaluation of abdominal pain that radiates to his back. The patient also complains that he is not doing well in his residential. he feels he is not being treated appropriately because they will not take me to a doctor for my bladder problems. He reports that his bladder swells and I can not pee. The patient has straight cath at home due to BPH Related Data Home Medications ?Medication ?Instructions ?Recorded ?Confirmed aripiprazole 30 mg tablet 30 mg PO DAILY 01/31/25 04/14/25 lorazepam 1 mg tablet 1 mg PO DAILY PRN Anxiety 01/31/25 04/14/25 quetiapine 100 mg tablet 100 mg PO BEDTIME 01/31/25 04/14/25 quetiapine 50 mg tablet 50 mg PO BID 01/31/25 04/14/25 olanzapine 10 mg tablet 10 mg PO TID 02/03/25 04/14/25 Previous Rx's ?Medication ?Instructions ?Recorded atorvastatin 20 mg tablet 20 mg PO QPM 90 days #90 tabs 01/10/25 tamsulosin 0.4 mg capsule 0.4 mg PO QAM 90 days #90 caps 01/10/25 cefuroxime axetil 500 mg tablet 500 mg PO BID 7 days #14 tabs 03/10/25 ondansetron 4 mg disintegrating 4 mg PO Q6H PRN nausea and 05/01/25 tablet vomiting #10 tabs cefuroxime axetil 250 mg tablet 250 mg PO BID #14 tabs 05/16/25 magnesium citrate 150 ml PO BID PRN constipation 05/28/25 #296 mL polyethylene glycol 3350 17 17 g PO DAILY PRN constipation 2 05/28/25 gram/dose oral powder (Miralax) weeks #238 grams Allergies Allergy/AdvReac Type Severity Reaction Status Date / Time No Known Allergies (NO KNOWN Allergy Unknown UNKNOWN Verified 05/28/25 15:50 ALLERGIES) Review of Systems Constitutional: Constitutional: Denies body ache(s), Denies chills and Denies fever(s) ENT: Denies dizziness Cardiovascular: Cardiovascular: Denies chest pain Respiratory: Respiratory: Denies cough Gastrointestinal: Gastrointestinal: Reports abdominal pain, Denies nausea and Denies vomiting Musculoskeletal: Musculoskeletal: Reports back pain Integumentary/Breasts: Skin/Breast: Denies rash Neurologic: Denies dizziness Psychiatric: Psychiatric: Denies anxiety PMFSH Past Medical History Medical History Acute anxiety Smoker GERD without esophagitis Tubular adenoma of colon (~2018) Personal history of nicotine dependence Constipation Back pain Schizoaffective disorder, bipolar type Anxiety Benign prostatic hyperplasia with lower urinary tract symptoms Pure hypercholesterolemia Thought disorder Bipolar 1 disorder Mood disorder Surgical History History of colonoscopy (~04/2019) History of prostate surgery (~04/2019) History of open reduction and internal fixation (ORIF) procedure (~08/2018) Family History Family History Father Lung cancer BPH (benign prostatic hyperplasia) Mother Dementia Brother Myocardial infarction Other Mental health problem Substance abuse Social History Social History Household Members: Other Housing: Other Housing Other:: [facility]way Do you presently have visiting nurse or other home services: No Alcohol intake: never Patient Tobacco Use Status: Current everyday Tobacco user Tobacco use type: Cigarette Cigarette Packs Per Day: 0.5 Cigarettes Per Day: 10.0 Years Smoked: 10 e-Cigarette/Vaping Use: Never Used Second Hand Smoke Exposure: Yes Advance Directives: No Advance Directives Information Provided: No service: No Current occupational status: employed and disabled Current occupation: [employer] Sexual orientation: Straight/Heterosexual Cognitive needs: No Hearing needs: No Vision needs: Yes Physical Exam ED Vital Signs: Vital Signs - 24 hr 05/28/25 15:50 Temperature 97.8 F Pulse Rate 84 Respiratory Rate 16 Blood Pressure 150/66 H Pulse Oximetry 98 Oxygen Delivery Method Room Air BMI result Body Mass Index 21.4 Const General: healthy appearing, comfortable, no acute distress, alert and awake Nutritional Appearance: well nourished Orientation/consciousness: patient oriented x3 HENMT Head: Yes normocephalic and Yes atraumatic Eyes Eyelids: Yes eyelids normal Conjunctivae: conjunctivae normal Sclerae: sclerae normal Corneas: corneas normal Pupils: Equal, round and reactive pupils present EOM: EOMs intact bilaterally Neck Neck: Yes full ROM Resp Effort & Inspection: normal respiratory effort, able to speak in complete sentences and not labored Cardio Rate: regular rate Rhythm: regular rhythm GI Inspection: No distended Palpation (GI): Soft to palpation, not firm, nontender, no guarding and not rigid Skin General skin exam: elasticity normal Neuro General: patient oriented x3 Cranial nerves: Yes Equal, round and reactive pupils present and Yes Bilaterally intact EOM present Cognition (Neuro): normal cognition Extrem Other: Moving all extremities well without any obvious deformities Course Course Course Narrative: This is a rapid medical exam performed by Walter Crawford NP: Additional HPI, ROS, PE not included below will be deferred to primary provider. Patient is a 59-year-old male with pmhx Self-catheterizations and hx of UTI including cephalosporin sensitive Klebsiella oxytoca/pneumonia, schizoaffective disorder, anxiety, BPH, hypercholesterolemia, GERD presenting to the ED with complaint of suprapubic and lower back pain. Also reports anxiety regarding arguments with residential staff. Denies SI/HI. Plan: UA, bladder scan Medical Decision Making Medical Decision Making MDM Narrative: 59-year-old male who was well known to this emergency department for similar complaints presents for evaluation of being unable to urinate. He was able to provide a urine sample. Bladder scan shows 637. Again, the patient has a history of urinary retention due to BPH and self catheterizes at home. He will be provided with a self catheterization care. We will send the UA for urinalysis. His abdominal exam is reassuring. We will get a KUB to evaluate for constipation which could be worsening due to his history of urinary retention. His vital signs are stable Differential Diagnosis Differential Diagnoses: The differential diagnosis associated with the presentation includes urinary retention UTI Constipation Malingering Lab Data Labs: Lab Results 05/28/25 Range/Units 16:51 Urine Color Yellow Urine Appearance Clear Urine pH 6.0 (5.0-9.0) Ur Specific [place] 1.010 (1.005-1.025) Urine Protein Negative (Neg-Trace) mg/dL Urine Glucose (UA) Negative (Negative) mg/dL Urine Ketones Negative (Negative) mg/dL Urine Blood Negative (Negative) Urine Nitrite Negative (Negative) Ur Leukocyte Esterase Trace H (Negative) Urine RBC 0-2 (0-2) /HPF Urine WBC 0-5 (0-5) /HPF Ur Squamous Epith Cells 0-2 (0-2) /HPF Urine Bacteria None Seen (None Seen) Hyaline Casts 0-2 (0-2) /LPF Tests considered The following testing was considered but not selected: considered labs however the patient is well-appearing, no evidence to suggest infectious process or sepsis. He is able to urinate he had labs within the last week but did not show any evidence of renal failure. Labs were deferred at this time Discharge Plan Discharge Clinical Impression: Constipation Patient Disposition: Home, Self-Care Instructions: Constipation (ED) Additional Instructions: you do not have any evidence of a UTI. Your x-ray does show that you are quite constipated. Take MiraLax every night for the next 2 weeks to facilitate bowel movement pain Increase fluid intake and fiber in your diet. You may also use magnesium citrate as needed for constipation follow up with your primary doctor, return for new or worsening symptoms It is important to follow up with Urology given your history of urinary retention. Call the number provided to schedule an appointment You were seen in the Emergency Department today. ?We understand that you have long standing concerns with your residential. Given the snf issues you deal with we advise when you are struggling with these events and feelings that you reach out to your therapist, your counselors, and your [facility] worker. You can always call [facility] Crisis [phone]. Please follow up with your outpatient providers. Please utilize your resources in the community for your longstanding issues and utilize the emergency department for emergent medical and psychiatric needs. [facility] Urology will be contacting you within 2 business?days after being discharged from the Emergency?Department.? During this?phone call, they will inform you when your follow up appointment will be scheduled. If you have not received a call from [facility] Urology after 2 business?days, please call the?office at [phone]. Prescriptions: New polyethylene glycol 3350 [Miralax] 17 gram/dose powder 17 g PO DAILY PRN (Reason: constipation) 14 Days Qty: 238 0RF magnesium citrate Solution 150 ml PO BID PRN (Reason: constipation) Qty: 296 0RF No Action quetiapine 100 mg tablet 100 mg PO BEDTIME lorazepam 1 mg tablet 1 mg PO DAILY PRN (Reason: Anxiety) aripiprazole 30 mg tablet 30 mg PO DAILY quetiapine 50 mg tablet 50 mg PO BID olanzapine 10 mg tablet 10 mg PO TID ondansetron 4 mg tablet,disintegrating 4 mg PO Q6H PRN (Reason: nausea and vomiting) Qty: 10 0RF cefuroxime axetil 250 mg tablet 250 mg PO BID Qty: 14 0RF cefuroxime axetil 500 mg tablet 500 mg PO BID 7 Days Qty: 14 0RF tamsulosin 0.4 mg capsule 0.4 mg PO QAM 90 Days Qty: 90 0RF atorvastatin 20 mg tablet 20 mg PO QPM 90 Days Qty: 90 3RF Print Language: Icelandic
[2025-05-28 15:50] VITALS: BP 150/66; PULSE 84; RESP 16; TEMP 36.6; O2SAT 98; BMI 21.4
--- OUTSIDE RECORDS SUMMARY | 2025-05-28 16:13 | XMS_ITS | Encounter Summary ---
Author Organization [facility] Address [address] [place] [address] Care Team Providers Care Wage Conciliator Name Role Phone Ref, Hasnopcp Primary Care Provider Unavailabl e Encounter Details Date Type Department Care Team (Late st Contact Info) Description 01/04/2024 Community Orders [facility] EpicCare Link [address] [place] [address] Bethany Lozano, ADDICTION COUNSELOR [address] [place] [address] Social History Tobacco Use Types Packs/Day Years [...] on filedocumented in this encounter Care Teams Wage Conciliator Relationship Specialty Start Date End Date Ref, Cadence DO NOT EDIT THIS RECORD VIA PROVIDER ON THE FLY PCP - General Bottle Labeler 12/30/23 documented as of this encounter
--- OUTSIDE RECORDS SUMMARY | 2025-05-28 16:13 | XMS_ITS | Clinical Summary ---
Author Organization [facility] Address [address] [place] [address] Care Team Providers Care Plugging Machine Operator Name Role Phone Ref, Hasnopcp Primary [...] Plan (01/03/2024 2:32 PM EDT): Presents from [facility] in the setting of urinary [...] (01/03/2024 10:49 AM EDT): Presented from [facility] with hyponatremia (initially 123). Also had [...] Plan (01/02/2024 11:43 AM EDT): Presents from [facility] in the setting of urinary [...] available in our system). Per documentation from [facility] patient has seen urology at [facility] in [place]. He was started on Flomax outpatient. In [...] 11:43 AM EDT): Paperwork from the [facility] indicates history of BPH with prior need for intermittent catheterization requiring urology evaluation in the past, records not available in our system). Per documentation from [facility] patient has seen urology at [facility] in [place]. He was started on Flomax outpatient. In [...] history exists Tobacco Screening 06/05/2042 01/29/2024 [place] [id number] MEDICARE [facility] Advance Directives * Full Code (Latest Code Status on File) Date Activated Date Inactivated Comments 12/30/2023 7:22 PM 01/03/2024 8:48 PM * Presumed Full Code Date Activated Date Inactivated Comments 12/30/2023 7:00 PM 12/30/2023 7:22 PM Care Teams Plugging Machine Operator Relationship Specialty Start Date End Date Ref, Cadence DO NOT EDIT THIS RECORD VIA PROVIDER ON THE FLY PCP - General Integration Software Engineer 12/30/23
[2025-05-28 17:00] LABS: Appearance Urine Clear; Glucose Urine UA Negative (Negative); PH 6.0 (5.0-9.0); Specific Gravity - Urine 1.010 (1.005-1.025); UMIC TRIGGER UACC YES
--- NOTE | 2025-05-28 17:26 | PC.NURSE ---
Patient is away for KUB. Will perform bladder scan upon return.
--- NOTE | 2025-05-28 17:48 | PC.NURSE ---
Bladder scan >637mL. Skip WETZEL aware. Given straight catheterization kit, to self-cath (per provider orders). KUB obtained, awaiting read.
[2025-05-28 18:13] VITALS: BP 150/66; PULSE 84; RESP 16; TEMP 36.6; O2SAT 98
== END 2025-05-28 18:13 | disposition home or self-care (01) ==
PROVIDERS: Registered Nurse Emergency; Emergency Provider Emergency Medicine
DX: K59.00 Constipation, unspecified (principal); R10.24 Suprapubic pain; N40.0 Benign prostatic hyperplasia without lower urinary tract symptoms; F17.210 Nicotine dependence, cigarettes, uncomplicated
CPT/HCPCS: 51798; 74018; 81001; 81003; 99283

== ENCOUNTER → 2025-05-28 17:12 | Outpatient (BNV) | payer MEDICARE, MEDICAID, SELFPAY | PROVIDERS: Emergency Provider Emergency Medicine; Visit Provider Radiology Diagnostic Radiology | DX: R10.9 Unspecified abdominal pain (principal) | CPT/HCPCS: 74018 ==

== ENCOUNTER 2025-05-29 13:55 | Emergency (ER) | payer MEDICARE, MEDICAID, SELFPAY ==
--- OUTSIDE RECORDS SUMMARY | 2025-05-23 22:35 | XMS_ITS | Encounter Summary ---
Author Organization [facility] Address [address] [place] [address] Care Team Providers Care Spiral Winding Machine Helper Name Role Phone Dk Rodriguez MD Primary Care Provider + [phone] Reason for Visit * Reason Comments Male Problem Im on a lot of anti biotics and I don't feel good. Encounter Details Date Type Department Care Team (Late st Contact Info) Description 05/23/2025 10:35 PM EST - 05/24/2025 3:[address] [facility] Emergency [address] [place] [phone] Discharge Disposition: Home or Self Care Social [...] 11:32 PM EST Lucie Tucker RN * [place] Suicide Severity Rating Scale (Screener/Recent Self-Report) Question [...] on filedocumented in this encounter Care Teams Spiral Winding Machine Helper Relationship Specialty Start Date End Date Dk Rodriguez MD [address] [place] [address] Dr Jackie [facility] [place] PCP - General Internal Medicine 07/16/24 documented as of this encounter
[2025-05-29 13:59] VITALS: BP 132/59; PULSE 85; RESP 18; TEMP 36.6; O2SAT 97; BMI 22.0
--- NOTE | 2025-05-29 14:00 | ED.GENADULT ---
HPI - General Adult General Chief complaint: General Medical Stated complaint: back and stop pain, doesnt want to be home Time Seen by Provider: 05/29/25 14:44 Source: patient, RN notes reviewed and old records reviewed Mode of arrival: ambulatory Limitations: no limitations History of Present Illness ED Provider: ZACKARY Holguin HPI narrative: 59-year-old male with medical history of GERD, UTI, schizoaffective disorder, anxiety, BPH with LUTS, HLD, neurogenic bladder, presents to the ED due to pain and pressure of his bladder. Patient states he woke up this morning and noticed pressure in his bladder and was unable to urinate. Patient states he attempted to self catheterize twice at his senior care before arriving to the department. Denies chest pain, shortness of breath, difficulty breathing, nausea, vomiting, diarrhea, headaches, visual changes MD complaint: bladder pressure, pain Related Data Home Medications ?Medication ?Instructions ?Recorded ?Confirmed aripiprazole 30 mg tablet 30 mg PO DAILY 01/31/25 04/14/25 lorazepam 1 mg tablet 1 mg PO DAILY PRN Anxiety 01/31/25 04/14/25 quetiapine 100 mg tablet 100 mg PO BEDTIME 01/31/25 04/14/25 quetiapine 50 mg tablet 50 mg PO BID 01/31/25 04/14/25 olanzapine 10 mg tablet 10 mg PO TID 02/03/25 04/14/25 Previous Rx's ?Medication ?Instructions ?Recorded atorvastatin 20 mg tablet 20 mg PO QPM 90 days #90 tabs 01/10/25 tamsulosin 0.4 mg capsule 0.4 mg PO QAM 90 days #90 caps 01/10/25 cefuroxime axetil 500 mg tablet 500 mg PO BID 7 days #14 tabs 03/10/25 ondansetron 4 mg disintegrating 4 mg PO Q6H PRN nausea and 05/01/25 tablet vomiting #10 tabs cefuroxime axetil 250 mg tablet 250 mg PO BID #14 tabs 05/16/25 magnesium citrate 150 ml PO BID PRN constipation 05/28/25 #296 mL polyethylene glycol 3350 17 17 g PO DAILY PRN constipation 2 05/28/25 gram/dose oral powder (Miralax) weeks #238 grams Allergies Allergy/AdvReac Type Severity Reaction Status Date / Time No Known Allergies (NO KNOWN Allergy Unknown UNKNOWN Verified 05/29/25 14:02 ALLERGIES) [facility] Past Medical History Medical History Acute anxiety Smoker GERD without esophagitis Tubular adenoma of colon (~2018) Personal history of nicotine dependence Constipation Back pain Schizoaffective disorder, bipolar type Anxiety Benign prostatic hyperplasia with lower urinary tract symptoms Pure hypercholesterolemia Thought disorder Bipolar 1 disorder Mood disorder Surgical History History of colonoscopy (~04/2019) History of prostate surgery (~04/2019) History of open reduction and internal fixation (ORIF) procedure (~08/2018) Family History Family History Father Lung cancer BPH (benign prostatic hyperplasia) Mother Dementia Brother Myocardial infarction Other Mental health problem Substance abuse Social History Social History Household Members: Other Housing: Other Housing Other:: Nursing Home Do you presently have visiting nurse or other home services: No Alcohol intake: never Patient Tobacco Use Status: Current everyday Tobacco user Tobacco use type: Cigarette Cigarette Packs Per Day: 0.5 Cigarettes Per Day: 10.0 Years Smoked: 10 e-Cigarette/Vaping Use: Never Used Second Hand Smoke Exposure: Yes Advance Directives: No Advance Directives Information Provided: No Do you have a plan to hurt others: No Plan service: No Current occupational status: employed and disabled Current occupation: [employer] Sexual orientation: Straight/Heterosexual Cognitive needs: No Hearing needs: No Vision needs: Yes Physical Exam ED Vital Signs: Vital Signs - 24 hr 05/29/25 13:59 Temperature 98 F Pulse Rate 85 Respiratory Rate 18 Blood Pressure 132/59 L Pulse Oximetry 97 Oxygen Delivery Method Room Air BMI result Body Mass Index 22.0 Course Course Course Narrative: This is a Rapid Medical Examination (RME) performed by Addy Regalado PA-C in triage. Full HPI, ROS, assessment and treatment plan per primary provider in the Main ED. Hx: 59 yo M hx of self-catheterizations and hx of UTI including cephalosporin sensitive Klebsiella oxytoca/pneumonia, schizoaffective disorder, anxiety, BPH, hypercholesterolemia, GERD here for eval of I'm having a bad pain . reports pain to his abdomen and back for some time , cramping sensation. denies SI/HI. also reports issue with his senior care. Plan: bladder scan Discharge Plan Discharge Clinical Impression: Sensation of pressure in bladder area Patient Disposition: Left Against Medical Advice Additional Instructions: You were evaluated in the emergency department due to pain and pressure of your bladder. You had a bladder scan done which revealed 523 mL of urine. We wanted to have you self catheterize in the bathroom with an additional bladder scan to ensure there was no retained urine in the bladder, blood work, and urinary analysis to see if there was any blood or bacteria in your urine however you refused and are leaving against medical advice. Leaving against medical advice with urine in the bladder puts you at risk for bladder rupture, infection, or . Please follow up with your urologist. Please return to the emergency department if your symptoms are ongoing or if you have any new/worsening/concerning symptoms. Prescriptions: No Action quetiapine 100 mg tablet 100 mg PO BEDTIME lorazepam 1 mg tablet 1 mg PO DAILY PRN (Reason: Anxiety) aripiprazole 30 mg tablet 30 mg PO DAILY quetiapine 50 mg tablet 50 mg PO BID olanzapine 10 mg tablet 10 mg PO TID ondansetron 4 mg tablet,disintegrating 4 mg PO Q6H PRN (Reason: nausea and vomiting) Qty: 10 0RF cefuroxime axetil 250 mg tablet 250 mg PO BID Qty: 14 0RF polyethylene glycol 3350 [Miralax] 17 gram/dose powder 17 g PO DAILY PRN (Reason: constipation) 14 Days Qty: 238 0RF magnesium citrate Solution 150 ml PO BID PRN (Reason: constipation) Qty: 296 0RF cefuroxime axetil 500 mg tablet 500 mg PO BID 7 Days Qty: 14 0RF tamsulosin 0.4 mg capsule 0.4 mg PO QAM 90 Days Qty: 90 0RF atorvastatin 20 mg tablet 20 mg PO QPM 90 Days Qty: 90 3RF Stand Alone Forms: Against Medical Advice Print Language: Kiswahili
--- OUTSIDE RECORDS SUMMARY | 2025-05-29 14:19 | XMS_ITS | Clinical Summary ---
Author Organization [facility] Address [address] [place] [address] Care Team Providers Care Senior Peoplesoft Developer Name Role Phone Ref, Hasnopcp Primary Care [...] (01/03/2024 2:32 PM EDT): Presents from [facility] in the setting of urinary retention and [...] Plan (01/03/2024 10:49 AM EDT): Presented from [facility] with hyponatremia (initially 123). Also had [...] (01/02/2024 11:43 AM EDT): Presents from [facility] in the setting of urinary retention and [...] Seroquel 25 mg twice daily Presents from [facility] forensic unit with documented history of schizophrenia. 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 Continue home aripiprazole 20mg daily Continue home carbamazepine 500 mg twice daily Continue home Zyprexa 15 mg nightly Continue home Seroquel 25 mg twice daily Consider psychiatry consult if concern that antipsychotic medications are causing SIADH Patient presents from [facility], requires constant observation BPH (benign prostatic hyperplasia) 12/30/2023 Assessment & Plan (01/03/2024 2:33 PM EDT): Paperwork from the [facility] center indicates history of BPH with prior need for intermittent catheterization requiring urology evaluation in the past, records not available in our system). Per documentation from [facility] patient has seen urology at [facility] in [place]. He was started on Flomax outpatient. In [...] (01/02/2024 11:43 AM EDT): Paperwork from the [facility] indicates history of BPH with prior need for intermittent catheterization requiring urology evaluation in the past, records not available in our system). Per documentation from [facility] patient has seen urology at [facility] in [place]. He was started on Flomax outpatient. In [...] history exists Tobacco Screening 06/05/2042 01/29/2024 [place] [id number] MEDICARE [facility] Advance Directives * Full Code (Latest Code Status on File) Date Activated Date Inactivated Comments 12/30/2023 7:22 PM 01/03/2024 8:48 PM * Presumed Full Code Date Activated Date Inactivated Comments 12/30/2023 7:00 PM 12/30/2023 7:22 PM Care Teams Senior Peoplesoft Developer Relationship Specialty Start Date End Date Ref, Cadence DO NOT EDIT THIS RECORD VIA PROVIDER ON THE FLY PCP - General Carrier Operator 12/30/23
--- OUTSIDE RECORDS SUMMARY | 2025-05-29 14:19 | XMS_ITS | Encounter Summary ---
Author Organization [facility] Address [address] [place] [address] Care Team Providers Care Nremt Name Role Phone Ref, Hasnopcp Primary Care Provider Unavailabl e Encounter Details Date Type Department Care Team (Late st Contact Info) Description 01/04/2024 Community Orders [facility] EpicCare Link [address] [place] [address] Bethany Lozano, CONVEYOR BELT OPERATOR [address] [place] [address] Social History Tobacco Use Types Packs/Day Years [...] on filedocumented in this encounter Care Teams Nremt Relationship Specialty Start Date End Date Ref, Cadence DO NOT EDIT THIS RECORD VIA PROVIDER ON THE FLY PCP - General Artist Model 12/30/23 documented as of this encounter
--- OUTSIDE RECORDS SUMMARY | 2025-05-29 14:19 | XMS_ITS | Clinical Summary ---
Author Organization [facility] Address [address] [place] [address] Phone Care Team Providers Care In Flight Refueling Manager Name Role Phone Dk Rodriguez MD Primary Care Provider [phone] Allergies No known active allergies Medications No known medications Encounters Date Type Department Care Team Description 05/23/2025 10:35 PM EST - 05/24/2025 3:[address] [facility] Emergency [address] [place] [phone] Discharge Disposition: Home or Self Care 04/10/2025 8:45 PM EST - 04/10/2025 10:25 PM EST Emergency [facility] Emergency [address] [place] [phone] Discharge Disposition: Home or Self Care 03/30/2025 9:37 PM EDT - 03/30/2025 11:09 PM EDT Emergency [facility] Emergency [address] [place] [phone] Discharge Disposition: Left Against Medical Advice 03/06/2025 9:24 PM EDT - 03/06/2025 9:[address] [facility] Emergency [address] [place] [phone] Discharge Disposition: Home or Self Care from Last 3 Months Medical History Medical History Date Comments Bipolar 1 disorder (CMS/HCC V24, CMS/HCC V28) Mood disorder ([facility] V24) [...] Insurance MEDICARE MEDICAID - [place] Care Teams In Flight Refueling Manager Relationship Specialty Start Date End Date Dk Rodriguez MD [address] [place] [address] [address] COY Lucero PCP - General Internal Medicine 07/16/24
--- NOTE | 2025-05-29 14:56 | ED_ITS ---
HPI - General Adult General Chief complaint: General Medical Stated complaint: back and stop pain, doesnt want to be home Time Seen by Provider: 05/29/25 14:44 Source: patient, RN notes reviewed and old records reviewed Mode of arrival: ambulatory Limitations: no limitations History of Present Illness ED Provider: ZACKARY Holguin HPI narrative: 59-year-old male with medical history of GERD, UTI, schizoaffective disorder, anxiety, BPH with LUTS, HLD, neurogenic bladder, presents to the ED due to pain and pressure of his bladder. Patient states he woke up this morning and noticed pressure in his bladder and was unable to urinate. Patient states he attempted to self catheterize twice at his [place] [facility] before arriving to the department. Denies chest pain, shortness of breath, difficulty breathing, nausea, vomiting, diarrhea, headaches, visual changes MD complaint: puressure in bladder, unable to urinate Related Data Home Medications ?Medication ?Instructions ?Recorded ?Confirmed aripiprazole 30 mg tablet 30 mg PO DAILY 01/31/2504/05 lorazepam 1 mg tablet 1 mg PO DAILY PRN Anxiety 04/14/25 quetiapine 100 mg tablet 100 mg PO BEDTIME 01/31/25 1 06/14/24 quetiapine 50 mg tablet 50 mg PO BID 01/31/25 olanzapine 10 mg tablet 10 mg PO TID 02/03/25 Previous Rx's ?Medication ?Instructions ?Recorded atorvastatin 20 mg tablet 20 mg PO QPM 90 days #90 tab s 01/10/25 tamsulosin 0.4 mg capsule 0.4 mg PO QAM 90 days #90 ca ps 01/10/25 cefuroxime axetil 500 mg tablet 500 mg PO BID 7 days # 14 tabs 03/10/25 ondansetron 4 mg disintegrating 4 mg PO Q6H PRN nausea and 05/01/25 tablet vomiting #10 tabs cefuroxime axetil 250 mg tablet 250 mg PO BID #14 tabs 05/16/25 magnesium citrate 150 ml PO BID PRN constipati on 05/28/25 #296 mL polyethylene glycol 3350 17 17 g PO DAILY PRN constipa tion 2 05/28/25 gram/dose oral powder (Miralax) weeks #238 grams Allergies Allergy/AdvReac Type Severity Reaction Status Date / Time No Known Allergies (NO KNOWN Allergy Unknown UNKNOWN Verified 05/29/25 14:02 ALLERGIES) Review of Systems Review of Systems: Yes all other systems are reviewed and are negative FOR[facility]LY [facility], [facility] Past Medical History Attestation statement: The following information was validated with the patient. Source: old records reviewed and nursing notes reviewed Medical History Acute anxiety Smoker GERD without esophagitis Tubular adenoma of colon (~2018) Personal history of nicotine dependence Constipation Back pain Schizoaffective disorder, bipolar type Anxiety Benign prostatic hyperplasia with lower urinary tract symptoms Pure hypercholesterolemia Thought disorder Bipolar 1 disorder Mood disorder Surgical History History of colonoscopy (~04/2019) History of prostate surgery (~04/2019) History of open reduction and internal fixation (ORIF) procedure (~08/2018) Family History Family History Father Lung cancer BPH (benign prostatic hyperplasia) Mother Dementia Brother Myocardial infarction Other Mental health problem Substance abuse Social History Social History Household Members: Other Housing: Other Housing Other:: Care Home Do you presently have visiting nurse or other home services: No Alcohol intake: never Patient Tobacco Use Status: Current everyday Tobacco user Tobacco use type: Cigarette Cigarette Packs Per Day: 0.5 Cigarettes Per Day: 10.0 Years Smoked: 10 e-Cigarette/Vaping Use: Never Used Second Hand Smoke Exposure: Yes Advance Directives: No Advance Directives Information Provided: No Do you have a plan to hurt others: No Plan service: No Current occupational status: employed and disabled 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 HEENT: ?NC, AT. MMM. EOMI, clear conjunctiva, oropharynx clear. NECK: ?Supple without lymphadenopathy.? No stiffness or restricted ROM. HEART:? Normal rate and regular rhythm, normal S1/S2, no m/r/g LUNGS:? CTAB, moving air well. No crackles or wheezes are heard. ABDOMEN: ?Soft, nondistended, no rigidity, negative Sawant's sign, no rebound tenderness, diffuse tenderness to the suprapubic area BACK: No CVAT, no obvious deformity. EXTREMITIES: ?Without cyanosis, clubbing or edema. NEUROLOGICAL: ?Grossly nonfocal. Alert and oriented, moving all 4 extremities. Observed to ambulate with normal gait. Skin: ?Warm and dry without any rash. Medical Decision Making Medical Decision Making MDM Narrative: 59-year-old male with medical history of GERD, UTI, schizoaffective disorder, anxiety, BPH with LUTS, HLD, neurogenic bladder, presents to the ED due to pain and pressure of his bladder. Patient states he woke up this morning and noticed pressure in his bladder and was unable to urinate. Patient states he attempted to self catheterize twice at his [place] [facility] before arriving to the department. Plan: Labs, bladder scan Bladder scan was done in triage, 523 mL seen. I discussed with the patient that he will need to self-catheterize in the bathroom and then PVR bladder scan done for further evaluation, with UA to ensure urine is not infected. When discussing this with the patient, he becomes agitated, stating that he is not going to self-catheterize and wants to go home. I discussed with the patient that he needs to be evaluated if he is having pain and pressure of the bladder we need to ensure that urine is drained, and no additional urine is left within the bladder. Patient refuses this and states he wants to go home. I discussed with the patient that he would be leaving against medical advice and could exper ience bladder rupture, infection, or by leaving today. Patient is of sound mind and can make his own decisions medically. Patient stated that he understands that leaving today could cause him harm. I again attempted to discuss with the patient the importance of self catheterizing, and scanning to ensure no residual urine is left behind the bladder, patient is adamantly refusing and states he wants to go home. Patient is leaving against medical advice at this time. Differential Diagnosis Differential Diagnoses: The differential diagnosis associated with the presentation includes Urine retention UTI BPH Admission/Observation Consideration of admission/observation: Escalation of care including admission/observation considered External Record Review External record reviewed: Inpatient record, Office record, Outpatient record and Prior outpatient labs Chronic Conditions Patient?s care impacted by: Other (GERD, UTI, schizoaffective disorder, anxiety, BPH with LUTS, HLD, neurogenic bladder) Social Determinants Patient?s care significantly limited by Social Determinants of Health including: Other Social Determinant of Health Discharge Plan Discharge Clinical Impression: Sensation of pressure in bladder area Patient Disposition: Left Against Medical Advice Additional Instructions: You were evaluated in the emergency department due to pain and pressure of your bladder. You had a bladder scan done which revealed 523 mL of urine. We wanted to have you self catheterize in the bathroom with an additional bladder scan to ensure there was no retained urine in the bladder, blood work, and urinary analysis to see if there was any blood or bacteria in your urine however you refused and are leaving against medical advice. Leaving against medical advice with urine in the bladder puts you at risk for bl adder rupture, infection, or . Please follow up with your urologist. Please return to the emergency department if your symptoms are ongoing or if you have any new/worsening/concerning symptoms. Prescriptions: No Action quetiapine 100 mg tablet 100 mg PO BEDTIME lorazepam 1 mg tablet 1 mg PO DAILY PRN (Reason: Anxiety) aripiprazole 30 mg tablet 30 mg PO DAILY quetiapine 50 mg tablet 50 mg PO BID olanzapine 10 mg tablet 10 mg PO TID ondansetron 4 mg tablet,disintegrating 4 mg PO Q6H PRN (Reason: nausea and vomiting) Qty: 10 0RF cefuroxime axetil 250 mg tablet 250 mg PO BID Qty: 14 0RF polyethylene glycol 3350 [Miralax] 17 gram/dose powder 17 g PO DAILY PRN (Reason: constipation) 14 Days Qty: 238 0RF magnesium citrate Solution 150 ml PO BID PRN (Reason: constipation) Qty: 296 0RF cefuroxime axetil 500 mg tablet 500 mg PO BID 7 Days Qty: 14 0RF tamsulosin 0.4 mg capsule 0.4 mg PO QAM 90 Days Qty: 90 0RF atorvastatin 20 mg tablet 20 mg PO QPM 90 Days Qty: 90 3RF Stand Alone Forms: Against Medical Advice Interventions: ED Discharge Assessment Last Done: 05/29/25 15:24 Discharge Date/Time: 05/29/25 15:24 Print Language: Sri Lankan
[2025-05-29 15:24] VITALS: BP 132/59; PULSE 85; RESP 18; TEMP 36.6; O2SAT 97
== END 2025-05-29 15:24 | disposition left against medical advice (07) ==
PROVIDERS: Emergency Provider Emergency Medicine
DX: R33.9 Retention of urine, unspecified (principal); Z79.899 Other long term (current) drug therapy; F17.210 Nicotine dependence, cigarettes, uncomplicated
CPT/HCPCS: 51702; 99282; 99284

== ENCOUNTER 2025-05-31 09:42 | Emergency (ER) | payer MEDICARE, MEDICAID, SELFPAY ==
--- OUTSIDE RECORDS SUMMARY | 2025-05-30 03:40 | XMS_ITS | Continuity of Care Document ---
Author Organization [facility] Address [address] [place] [address]- Care Team Providers Care Eye Specialist Name Role Phone Dk Rodriguez MD Primary Care Physician [id number] Date(s): 05/29/25 - 05/30/[address] [phone]- Discharge Disposition: A-D/C Walkout Attending Physician: Not [...] recent to oldest [Reference Range]: 1 Height 160 cm (05/29/25 9:18 PM) Weight 64.1 kg (05/29/25 9:18 PM) Oxygen Saturation [94-100 %] 100 % (05/29/25 9:18 PM) Pulse Rate [55-90 bpm] 77 bpm (05/29/25 9:18 PM) Body Mass Index [18.5-24.99 kg/m2] 25.04 kg/m2 *H* (05/29/25 9:18 PM) Blood Pressure [90-138/55-84 mm Hg] 130/ 84mm Hg (05/29/25 9:18 PM) Respiratory Rate [16-30 br/min] 17 br/mi n (05/29/25 9:18 PM) Temperature [96.8-100.4 DegF] 97.8 DegF (05/29/25 9:18 PM) Mode of Delivery (Oxygen) Room air (05/29/25 9:18 PM) Blood pressure sites Arm, left (05/29/25 9:18 PM) Temperature Route Oral (05/29/25 9:18 PM) Social History Social History Type Response Smoking Status Current every day sm oker; Tobacco user in household: Yes entered on: 04/26/14 Sex Male Sex Representation Male (finding) Status N/A Patient Care team information Care Team Personnel Name: Michael WILBURN, Dk Canales Position: Reference Physician Member Role: PCP Address: [address] [place] [address] [place], [place] [id number] Telecom: Name: Dena Bernal RN Position: S RN Member Role: Primary Care Nurse Name: Irma Stout RN Position: S RN Member Role: Primary Care Nurse Care Team Related Persons Name: RIZWANA MENDOZA Name: RIGO TORIBIO Name: STAFF, [facility] Insurance Providers Guarantor name: RAGHAV TORIBIO Health Plan Information #: 1 Payer: [employer] Payer Identifier: SRIDHAR Member Number: [id number] Group Number: [id number] Subscriber Identifier: [id number] Relationship to Subscriber: self Coverage Type: Self-pay (Includes applicants for insurance and Medicaid applicants) Coverage Verification Date: SRIDHAR Telecom: NA Address:
[2025-05-31 09:44] VITALS: BP 139/78; PULSE 100; RESP 18; TEMP 36.6; O2SAT 100; BMI 21.0
--- NOTE | 2025-05-31 09:55 | ED_ITS ---
HPI - General Adult General Chief complaint: General Medical Stated complaint: psych Time Seen by Provider: 05/31/25 09:55 Source: patient Mode of arrival: ambulatory Limitations: no limitations History of Present Illness ED Provider: Fozia Jordan PA-C HPI narrative: Patient is a 59 year old assigned male at with a history of BPH, chronic suprapubic pain, GERD, HLD, and schizoaffective disorder presenting to the emergency department today because he feels that he was insulted by a alf staff member by calling him [facility] . Patient states that he wanted to come here to be away from them for awhile. Patient states that he knows he needs to straight cath himself to urinate but he does not want to do that while in the department. Patient denies any complaints at this time. Related Data Home Medications ?Medication ?Instructions ?Recorded ?Confirmed aripiprazole 30 mg tablet 30 mg PO DAILY 01/31/2504/05 lorazepam 1 mg tablet 1 mg PO DAILY PRN Anxiety 04/14/25 quetiapine 100 mg tablet 100 mg PO BEDTIME 01/31/25 1 06/14/24 quetiapine 50 mg tablet 50 mg PO BID 01/31/25 olanzapine 10 mg tablet 10 mg PO TID 02/03/25 Previous Rx's ?Medication ?Instructions ?Recorded atorvastatin 20 mg tablet 20 mg PO QPM 90 days #90 tab s 01/10/25 tamsulosin 0.4 mg capsule 0.4 mg PO QAM 90 days #90 ca ps 01/10/25 cefuroxime axetil 500 mg tablet 500 mg PO BID 7 days # 14 tabs 03/10/25 ondansetron 4 mg disintegrating 4 mg PO Q6H PRN nausea and 05/01/25 tablet vomiting #10 tabs cefuroxime axetil 250 mg tablet 250 mg PO BID #14 tabs 05/16/25 magnesium citrate 150 ml PO BID PRN constipati on 05/28/25 #296 mL polyethylene glycol 3350 17 17 g PO DAILY PRN constipa tion 2 05/28/25 gram/dose oral powder (Miralax) weeks #238 grams Allergies Allergy/AdvReac Type Severity Reaction Status Date / Time No Known Allergies (NO KNOWN Allergy Unknown UNKNOWN Verified 05/31/25 09:47 ALLERGIES) Review of Systems Constitutional: Constitutional: Reports as per HPI Eyes: Eyes: Reports as per HPI ENT: Reports as per HPI Cardiovascular: Cardiovascular: Reports as per HPI Respiratory: Respiratory: Reports as per HPI Gastrointestinal: Gastrointestinal: Reports as per HPI Genitourinary: Genitourinary: Reports as per HPI Musculoskeletal: Musculoskeletal: Reports as per HPI Integumentary/Breasts: Skin/Breast: Reports as per HPI Neurologic: Reports as per HPI Psychiatric: Psychiatric: Reports as per HPI Endocrine: Endocrine: Reports as per HPI Hematologic/Lymphatic: Hematologic/Lymphatic: Reports as per HPI Allergic/Immunologic: Allergic/Immunologic: Reports as per HPI [facility] Past Medical History Attestation statement: The following information was validated with the patient. Source: old records reviewed and nursing notes reviewed Medical History Acute anxiety Smoker GERD without esophagitis Tubular adenoma of colon (~2018) Personal history of nicotine dependence Constipation Back pain Schizoaffective disorder, bipolar type Anxiety Benign prostatic hyperplasia with lower urinary tract symptoms Pure hypercholesterolemia Thought disorder Bipolar 1 disorder Mood disorder Surgical History History of colonoscopy (~04/2019) History of prostate surgery (~04/2019) History of open reduction and internal fixation (ORIF) procedure (~08/2018) Family History Family History Father Lung cancer BPH (benign prostatic hyperplasia) Mother Dementia Brother Myocardial infarction Other Mental health problem Substance abuse Social History Social History Household Members: Other Housing: Other Housing Other:: Assisted Do you presently have visiting nurse or other home services: No Alcohol intake: never Patient Tobacco Use Status: Current everyday Tobacco user Tobacco use type: Cigarette Cigarette Packs Per Day: 0.5 Cigarettes Per Day: 10.0 Years Smoked: 10 e-Cigarette/Vaping Use: Never Used Second Hand Smoke Exposure: Yes Advance Directives: No Advance Directives Information Provided: Yes Do you have a plan to hurt others: No Plan service: No Current occupational status: employed and disabled Current occupation: [employer] Sexual orientation: Straight/Heterosexual Cognitive needs: No Hearing needs: No Vision needs: Yes Physical Exam ED Vital Signs: Vital Signs - 24 hr 05/31/25 09:44 05/31/25 12:16 Temperature 97.8 F 98.0 F Pulse Rate 100 89 Respiratory Rate 18 18 Blood Pressure 139/78 126/72 Pulse Oximetry 100 99 Oxygen Delivery Method Room Air Room Air BMI result Body Mass Index 21.0 Const General: cooperative, alert and awake Orientation/consciousness: patient oriented x3 HENMT Head: Yes normal to inspection and Yes atraumatic Ears: hearing grossly normal bilaterally and external ears normal General nose exam: Normal external nose present, no nasal discharge noted and no epistaxis Face and sinus: Yes normal facial exam, No abrasion and No laceration Mouth: Normal oral and palatal mucosa present, no drooling and no muffled voice Eyes General: appearance normal, both eyes and all related structures Periorbital: periorbital findings normal Eyelids: Yes eyelids normal Conjunctivae: conjunctivae normal Pupils: Equal, round and reactive pupils present EOM: EOMs intact bilaterally Resp Effort & Inspection: normal respiratory effort and able to speak in complete sentences Neuro General: patient oriented x3, moves all extremities and CN's II-XI intact bilaterally Cranial nerves: Yes Equal, round and reactive pupils present Cognition (Neuro): normal cognition Extrem General: Yes full ROM Psych Appearance: grossly normal Mental Status: mental status grossly normal Attitude: cooperative Medical Decision Making Medical Decision Making [facility] Narrative: Patient is a 59 year old assigned male at with a history of BPH, chronic suprapubic pain, GERD, HLD, and schizoaffective disorder presenting to the emergency department today because he feels that he was insulted by a alf staff member by calling him [facility] . Patient's physical exam was as noted in the physical exam portion of this note and consistent with his baseline. I explained my physical exam findings to the patient. I answered all questions asked by the patient Patient was given a straight cath kit to use while here but he stated he would prefer not to straight cath there. After some time in the department, the patient stated that he would like to be discharged back to his alf. I stressed the importance of the patient taking his medication as directed (either prescribed or as the over the counter packaging recommends). I stressed the importance of the patient following up with his primary care provider. I stressed the importance of the patient returning to the emergency department immediately if he were to develop any thoughts of hurting himself, thoughts of hurting others, persistent inability to urinate, dizziness, shortness of breath, difficulty breathing, chest pain, blurry vision, loss of vision, nausea, vomiting, abdominal pain, fever, chills, back pain, or any other complaints. Patient verbalized agreement and understanding with this treatment plan and discharge. Differential Diagnosis Differential Diagnoses: The differential diagnosis associated with the presentation includes Emotional deregulation Admission/Observation Consideration of admission/observation: Escalation of care including admission/observation considered Patient would have been admitted to the hospital had his clinical presentation warranted hospital admission. Discharge Plan Discharge Clinical Impression: BPH (benign prostatic hyperplasia), Emotional distress Patient Disposition: Home, Self-Care Instructions: Enlarged Prostate (BPH) (ED) Additional Instructions: You were seen for a concern regarding your mental / behavioral behavioral health. It is important after this visit today that you follow up with either your mental / behavioral health or primary care provider within 7 days (from today).? Return for any worsening symptoms or concerns such as thoughts of harming yourself or others. Please call 911 immediately if you feel your mental health is worsening.? National Suicide and Crisis Lifeline: Available 24 hours a day, 7 days a week, 365 days a year Dial 988 with any telephone to speak to someone immediately [facility] (Mental / Behavioral health therapist: [address] [place] [address] [facility]: [address] [place] [address] Open from 10am - 12pm (walk ins welcome) [facility] Crisis Services: [address] [place] [address] Walk in hours from 10am - 12pm Behavioral health Network: [address] [place] [address] [id number] [place] [address] [phone] Monday through Monday 8am - 8pm Monday and Monday 9am - 5pm Please be sure to straight cath at home to appropriately empty your bladder. IF you are prescribed home medications and/or you are taking over the counter medications at home - it is very important you continue to do so as prescribed / directed unless told otherwise by a healthcare provider. Follow up with your primary care provider. Do your best to stay well hydrated and rest. Return to the emergency department immediately if your symptoms worsen or if you develop any numbness, tingling, dizziness, shortness of breath, difficulty breathing, chest pain, blurry vision, loss of vision, nausea, vomiting, abdominal pain, fever, chills, back pain, or any other complaints. If you do not have a primary care provider - call any of the below numbers to establish and follow up with a primary care provider. [facility] Primary Care ([place]) [phone] [place] [address], [address] [facility] Primary Care ([address] [place]) [phone] [place] [address], [address] [employer], [address] [facility] Primary Care ([address] [place]) [phone] [place] [address], [address] [employer], [address] [facility] Primary Care ([place]) [phone] [place] [address], [address] [facility], [address] [facility] Family Medicine [phone] [address] [facility], [address] Please see the information below about our Patient Portal. If you are not yet enrolled in the [facility] Patient Portal, you will receive an enrollment email invitation following your visit to any [facility] care setting. You may also self-enroll in the Patient Portal by visiting our website: [email or web address] The following information is required to access the Patient Portal: - Your [facility] Medical Record Number - Your personal home email address (must match what is in your electronic medical record, Registration staff can assist with this) - Name - Date of Capabilities of the Patient Portal: - Message some providers - View upcoming appointments - Access your health summary, medical history, and visit history - View current conditions and allergies - View procedure and lab results - View your medications, including guidelines, side effects, and precautions - Complete pre-appointment questionnaires requested by your provider - Ready summary reports of your office visits and procedures To access the Patient Portal Mobile [employer], follow these directions: - Search Highlighter in the Rosmery Store or Experience Headphones Store - Download the [employer]y - Search for [facility] - Enter your login/password Prescriptions: No Action quetiapine 100 mg tablet 100 mg PO BEDTIME lorazepam 1 mg tablet 1 mg PO DAILY PRN (Reason: Anxiety) aripiprazole 30 mg tablet 30 mg PO DAILY quetiapine 50 mg tablet 50 mg PO BID olanzapine 10 mg tablet 10 mg PO TID ondansetron 4 mg tablet,disintegrating 4 mg PO Q6H PRN (Reason: nausea and vomiting) Qty: 10 0RF cefuroxime axetil 250 mg tablet 250 mg PO BID Qty: 14 0RF polyethylene glycol 3350 [Miralax] 17 gram/dose powder 17 g PO DAILY PRN (Reason: constipation) 14 Days Qty: 238 0RF magnesium citrate Solution 150 ml PO BID PRN (Reason: constipation) Qty: 296 0RF cefuroxime axetil 500 mg tablet 500 mg PO BID 7 Days Qty: 14 0RF tamsulosin 0.4 mg capsule 0.4 mg PO QAM 90 Days Qty: 90 0RF atorvastatin 20 mg tablet 20 mg PO QPM 90 Days Qty: 90 3RF Interventions: ED Discharge Assessment Last Done: 05/31/25 12:16 Discharge Date/Time: 05/31/25 12:17 Print Language: Bulgarian
--- OUTSIDE RECORDS SUMMARY | 2025-05-31 09:55 | XMS_ITS | Encounter Summary ---
Author Organization [facility] Address [address] [place] [address] Care Team Providers Care Clinical Nursing Intern Name Role Phone Ref, Hasnopcp Primary Care Provider Unavailabl e Encounter Details Date Type Department Care Team (Late st Contact Info) Description 01/04/2024 Community Orders [facility] EpicCare Link [address] [place] [address] Bethany Lozano, NUTRITIONAL HEALTH COACH [address] [place] [address] Social History Tobacco Use Types Packs/Day Years [...] filedocumented in this encounter Care Teams Clinical Nursing Intern Relationship Specialty Start Date End Date Ref, Cadence DO NOT EDIT THIS RECORD VIA PROVIDER ON THE FLY PCP - General Binder And Wrapper Packer 12/30/23 documented as of this encounter
--- OUTSIDE RECORDS SUMMARY | 2025-05-31 09:55 | XMS_ITS | Clinical Summary ---
Author Organization [facility] Address [address] [place] [address] Phone Care Team Providers Care Special Services Coordinator Name Role Phone Dk Rodriguez MD Primary Care Provider [phone]- [phone] Allergies No known active allergies Medications No known medications Encounters Date Type Department Care Team Description 05/23/2025 10:35 PM EST - 05/24/2025 3:39 AM EST [facility] Emergency [address] [place] [phone] Discharge Disposition: Home or Self Care 04/10/2025 8:45 PM EST - 04/10/2025 10:25 PM EST Emergency [facility] Emergency [address] [place] [phone] Discharge Disposition: Home or Self Care 03/30/2025 9:37 PM EDT - 03/30/2025 11:09 PM EDT Emergency [facility] Emergency [address] [place] [phone] Discharge Disposition: Left Against Medical Advice 03/06/2025 9:24 PM EDT - 03/06/2025 9:57 PM EDT [facility] Emergency [address] [place] [phone] Discharge Disposition: Home or Self Care from Last 3 Months Medical History Medical History Date Comments Bipolar 1 disorder (CMS/HCC V24, CMS/HCC V28) Mood disorder ([facility] V24) Hyperactivity of [...] Insurance MEDICARE MEDICAID - [place] Care Teams Special Services Coordinator Relationship Specialty Start Date End Date Dk Rodriguez MD [address] [place] [address] [address] COY Lucero PCP - General Internal Medicine 07/16/24
--- OUTSIDE RECORDS SUMMARY | 2025-05-31 09:55 | XMS_ITS | Clinical Summary ---
Author Organization [facility] Address [address] [place] [address] Care Team Providers Care Cnc Grinder Name Role Phone Ref, Hasnopcp Primary Care [...] Plan (01/03/2024 2:32 PM EDT): Presents from [facility] in the setting of urinary retention [...] Plan (01/02/2024 11:43 AM EDT): Presents from [facility] in the setting of urinary retention [...] (01/03/2024 2:33 PM EDT): Paperwork from the [facility] center indicates history of BPH with prior need for intermittent catheterization requiring urology evaluation in the past, records not available in our system). Per documentation from [facility] patient has seen urology at [facility] in [place]. He was started on Flomax outpatient. In [...] available in our system). Per documentation from [facility] patient has seen urology at [facility] in [place]. He was started on Flomax outpatient. In [...] history exists Tobacco Screening 06/05/2042 01/29/2024 [place] [id number] MEDICARE [facility] Advance Directives * Full Code (Latest Code Status on File) Date Activated Date Inactivated Comments 12/30/2023 7:22 PM 01/03/2024 8:48 PM * Presumed Full Code Date Activated Date Inactivated Comments 12/30/2023 7:00 PM 12/30/2023 7:22 PM Care Teams Cnc Grinder Relationship Specialty Start Date End Date Ref, Cadence DO NOT EDIT THIS RECORD VIA PROVIDER ON THE FLY PCP - General Gastroenterology Technician 12/30/23
--- NOTE | 2025-05-31 12:14 | PC.NURSE ---
pt not wanting to self cath here in the ED, provider was notified, pt to discharge home and states he will do his normal self cath there.
[2025-05-31 12:16] VITALS: BP 126/72; PULSE 89; RESP 18; TEMP 36.7; O2SAT 99
== END 2025-05-31 12:17 | disposition home or self-care (01) ==
PROVIDERS: Emergency Provider Emergency Medicine
DX: N40.1 Benign prostatic hyperplasia with lower urinary tract symptoms (principal); R33.9 Retention of urine, unspecified; R45.7 State of emotional shock and stress, unspecified; Z72.89 Other problems related to lifestyle; F41.9 Anxiety disorder, unspecified; F25.0 Schizoaffective disorder, bipolar type; E78.00 Pure hypercholesterolemia, unspecified; Z79.899 Other long term (current) drug therapy
CPT/HCPCS: 51701; 99282; 99284

== ENCOUNTER 2025-06-01 11:18 | Emergency (ER) | payer MEDICARE, MEDICAID, SELFPAY ==
[2025-06-01 11:37] VITALS: BP 139/66; PULSE 76; RESP 20; TEMP 36.4; O2SAT 97; BMI 21.2
--- NOTE | 2025-06-01 11:40 | ED_ITS ---
HPI - General Adult General Chief complaint: Psychiatric Symptoms Stated complaint: Psych Eval Time Seen by Provider: 06/01/25 11:40 Source: patient Mode of arrival: ambulatory Limitations: no limitations History of Present Illness ED Provider: Fozia Jordan PA-C HPI narrative: Patient is a 59 year old assigned male at with a history of BPH, chronic suprapubic pain, GERD, HLD, and schizoaffective disorder presenting to the emergency department today because he feels that he was insulted by a retirement staff member by calling him [facility] . Patient states that he had an issue with this employee yesterday and he is having the same issue today. Patient states that he is not having any thoughts of hurting himself or others at this time. Patient states that he continues to straight cath without issue but he hasn't done it today so he is having some bladder pressure. Patient denies any other complaints at this time. Relieving factors: none Exacerbating factors: none Associated symptoms: denies other symptoms Treatments prior to arrival: none Related Data Home Medications ?Medication ?Instructions ?Recorded ?Confirmed aripiprazole 30 mg tablet 30 mg PO DAILY 01/31/2504/05 lorazepam 1 mg tablet 1 mg PO DAILY PRN Anxiety 04/14/25 quetiapine 100 mg tablet 100 mg PO BEDTIME 01/31/25 1 06/14/24 quetiapine 50 mg tablet 50 mg PO BID 01/31/25 olanzapine 10 mg tablet 10 mg PO TID 02/03/25 Previous Rx's ?Medication ?Instructions ?Recorded atorvastatin 20 mg tablet 20 mg PO QPM 90 days #90 tab s 01/10/25 tamsulosin 0.4 mg capsule 0.4 mg PO QAM 90 days #90 ca ps 01/10/25 cefuroxime axetil 500 mg tablet 500 mg PO BID 7 days # 14 tabs 03/10/25 ondansetron 4 mg disintegrating 4 mg PO Q6H PRN nausea and 05/01/25 tablet vomiting #10 tabs cefuroxime axetil 250 mg tablet 250 mg PO BID #14 tabs 05/16/25 magnesium citrate 150 ml PO BID PRN constipati on 05/28/25 #296 mL polyethylene glycol 3350 17 17 g PO DAILY PRN constipa tion 2 05/28/25 gram/dose oral powder (Miralax) weeks #238 grams Allergies Allergy/AdvReac Type Severity Reaction Status Date / Time No Known Allergies (NO KNOWN Allergy Unknown UNKNOWN Verified 06/01/25 11:40 ALLERGIES) Review of Systems Constitutional: Constitutional: Reports as per HPI Eyes: Eyes: Reports as per HPI ENT: Reports as per HPI Cardiovascular: Cardiovascular: Reports as per HPI Respiratory: Respiratory: Reports as per HPI Gastrointestinal: Gastrointestinal: Reports as per HPI Genitourinary: Genitourinary: Reports as per HPI Musculoskeletal: Musculoskeletal: Reports as per HPI Integumentary/Breasts: Skin/Breast: Reports as per HPI Neurologic: Reports as per HPI Psychiatric: Psychiatric: Reports as per HPI Endocrine: Endocrine: Reports as per HPI Hematologic/Lymphatic: Hematologic/Lymphatic: Reports as per HPI Allergic/Immunologic: Allergic/Immunologic: Reports as per HPI PMFSH Past Medical History Attestation statement: The following information was validated with the patient. Source: old records reviewed and nursing notes reviewed Medical History Acute anxiety Smoker GERD without esophagitis Tubular adenoma of colon (~2018) Personal history of nicotine dependence Constipation Back pain Schizoaffective disorder, bipolar type Anxiety Benign prostatic hyperplasia with lower urinary tract symptoms Pure hypercholesterolemia Thought disorder Bipolar 1 disorder Mood disorder Surgical History History of colonoscopy (~04/2019) History of prostate surgery (~04/2019) History of open reduction and internal fixation (ORIF) procedure (~08/2018) Family History Family History Father Lung cancer BPH (benign prostatic hyperplasia) Mother Dementia Brother Myocardial infarction Other Mental health problem Substance abuse Social History Social History Household Members: Other Housing: Other Housing Other:: Retirement Do you presently have visiting nurse or other home services: No Alcohol intake: never Patient Tobacco Use Status: Current everyday Tobacco user Tobacco use type: Cigarette Cigarette Packs Per Day: 0.5 Cigarettes Per Day: 10.0 Years Smoked: 10 e-Cigarette/Vaping Use: Never Used Second Hand Smoke Exposure: Yes Advance Directives: No Advance Directives Information Provided: Yes Do you have a plan to hurt others: No Plan service: No Current occupational status: employed and disabled Current occupation: [employer] Sexual orientation: Straight/Heterosexual Cognitive needs: No Hearing needs: No Vision needs: Yes Physical Exam ED Vital Signs: Vital Signs - 24 hr 06/01/25 11:37 06/01/25 14:43 Temperature 97.6 F 97.6 F Pulse Rate 76 76 Respiratory Rate 20 20 Blood Pressure 139/66 139/66 Pulse Oximetry 97 97 Oxygen Delivery Method Room Air Room Air BMI result Body Mass Index 21.2 Const General: cooperative, alert and awake Orientation/consciousness: patient oriented x3 HENMT Head: Yes normal to inspection and Yes atraumatic Ears: hearing grossly normal bilaterally and external ears normal General nose exam: Normal external nose present, no nasal discharge noted and no epistaxis Face and sinus: Yes normal facial exam, No abrasion and No laceration Mouth: Normal oral and palatal mucosa present, no drooling and no muffled voice Eyes General: appearance normal, both eyes and all related structures Periorbital: periorbital findings normal Eyelids: Yes eyelids normal Conjunctivae: conjunctivae normal Pupils: Equal, round and reactive pupils present EOM: EOMs intact bilaterally Resp Effort & Inspection: normal respiratory effort and able to speak in complete sentences Neuro General: patient oriented x3, moves all extremities and CN's II-XI intact bilaterally Cranial nerves: Yes Equal, round and reactive pupils present Cognition (Neuro): normal cognition Extrem General: Yes full ROM Psych Appearance: grossly normal Mental Status: mental status grossly normal Attitude: cooperative Medical Decision Making Medical Decision Making MDM Narrative: Patient is a 59 year old assigned male at with a history of BPH, chronic suprapubic pain, GERD, HLD, and schizoaffective disorder presenting to the emergency department today because he feels that he was insulted by a retirement staff member by calling him [facility] . Patient's physical exam was as noted in the physical exam portion of this note and consistent with his baseline. I explained my physical exam findings to the patient. I answered all questions asked by the patient I offered to give the patient a straight cath kit so that he may straight cath while he is in the department and he declined at this time stating he does not like to do it here . Patient was placed in observation at 1140 pending him agreeing to discharge back to his retirement. At 1443 observation ended as the patient stated he felt OK emotionally to return to his retirement. I stressed the importance of the patient taking his medication as directed (either prescribed or as the over the counter packaging recommends). I stressed the importance of the patient following up with his primary care provider. I stressed the importance of the patient returning to the emergency department immediately if he were to develop any thoughts of hurting himself, thoughts of hurting others, persistent inability to urinate, dizziness, shortness of breath, difficulty breathing, chest pain, blurry vision, loss of vision, nausea, vomiting, abdominal pain, fever, chills, back pain, or any other complaints. Patient verbalized agreement and understanding with this treatment plan and discharge. Differential Diagnosis Differential Diagnoses: The differential diagnosis associated with the presentation includes Emotional distress Admission/Observation Consideration of admission/observation: Escalation of care including admission/observation considered Patient would have been admitted to the hospital had his clinical presentation warranted hospital admission. Discharge Plan Discharge Clinical Impression: Emotional distress Patient Disposition: Home, Self-Care Additional Instructions: You were seen for a concern regarding your mental / behavioral behavioral health. It is important after this visit today that you follow up with either your mental / behavioral health or primary care provider within 7 days (from today).? Return for any worsening symptoms or concerns such as thoughts of harming yourself or others. Please call 911 immediately if you feel your mental health is worsening.? National Suicide and Crisis Lifeline: Available 24 hours a day, 7 days a week, 365 days a year Dial 988 with any telephone to speak to someone immediately [facility] (Mental / Behavioral health therapist: [address] [place] [address] [facility] at [facility]: [address] [place] [address] Open from 10am - 12pm (walk ins welcome) [facility] Crisis Services: [address] [place] [address] Walk in hours from 10am - 12pm Behavioral health Network: [address] [place] [address] [address] [place] [address] [phone] Monday through Monday 8am - 8pm Monday and Monday 9am - 5pm IF you are prescribed medications and/or you are taking over the counter medications - it is very important you continue to do so as prescribed / directed unless told otherwise. Follow up with your primary care provider. Return to the emergency department immediately if your symptoms worsen or if you develop any numbness, tingling, dizziness, shortness of breath, difficulty breathing, chest pain, blurry vision, loss of vision, nausea, vomiting, abdominal pain, fever, chills, back pain, or any other complaints. Prescriptions: No Action quetiapine 100 mg tablet 100 mg PO BEDTIME lorazepam 1 mg tablet 1 mg PO DAILY PRN (Reason: Anxiety) aripiprazole 30 mg tablet 30 mg PO DAILY quetiapine 50 mg tablet 50 mg PO BID olanzapine 10 mg tablet 10 mg PO TID ondansetron 4 mg tablet,disintegrating 4 mg PO Q6H PRN (Reason: nausea and vomiting) Qty: 10 0RF cefuroxime axetil 250 mg tablet 250 mg PO BID Qty: 14 0RF polyethylene glycol 3350 [Miralax] 17 gram/dose powder 17 g PO DAILY PRN (Reason: constipation) 14 Days Qty: 238 0RF magnesium citrate Solution 150 ml PO BID PRN (Reason: constipation) Qty: 296 0RF cefuroxime axetil 500 mg tablet 500 mg PO BID 7 Days Qty: 14 0RF tamsulosin 0.4 mg capsule 0.4 mg PO QAM 90 Days Qty: 90 0RF atorvastatin 20 mg tablet 20 mg PO QPM 90 Days Qty: 90 3RF Interventions: [place]-Suicide Risk Severity Scale Last Done: 06/01/25 14:44 ED Discharge Assessment Last Done: 06/01/25 14:43 Discharge Date/Time: 06/01/25 14:44 Print Language: Comoran
--- OUTSIDE RECORDS SUMMARY | 2025-06-01 12:08 | XMS_ITS | Clinical Summary ---
Author Organization [facility] Address [address] [place] [address] Care Team Providers Care Air Twister Winder Name Role Phone Ref, Hasnopcp Primary Care [...] Plan (01/03/2024 2:32 PM EDT): Presents from [facility] in the setting of urinary [...] Plan (01/03/2024 10:49 AM EDT): Presented from [facility] with hyponatremia (initially 123). Also [...] Plan (01/02/2024 11:43 AM EDT): Presents from [facility] in the setting of urinary [...] (01/03/2024 2:33 PM EDT): Paperwork from the [facility] indicates history of BPH with prior need for intermittent catheterization requiring urology evaluation in the past, records not available in our system). Per documentation from [facility] patient has seen urology at [facility] in [place]. He was started on Flomax outpatient. In [...] (01/02/2024 11:43 AM EDT): Paperwork from the [facility] indicates history of BPH with prior need for intermittent catheterization requiring urology evaluation in the past, records not available in our system). Per documentation from [facility] patient has seen urology at [facility] in [place]. He was started on Flomax outpatient. In [...] history exists Tobacco Screening 06/05/2042 01/29/2024 Insurance [place] [id number] MEDICARE [facility] Advance Directives * Full Code (Latest Code Status on File) Date Activated Date Inactivated Comments 12/30/2023 7:22 PM 01/03/2024 8:48 PM * Presumed Full Code Date Activated Date Inactivated Comments 12/30/2023 7:00 PM 12/30/2023 7:22 PM Care Teams Air Twister Winder Relationship Specialty Start Date End Date Ref, Cadence DO NOT EDIT THIS RECORD VIA PROVIDER ON THE FLY PCP - General Public Works Supervisor 12/30/23
--- OUTSIDE RECORDS SUMMARY | 2025-06-01 12:08 | XMS_ITS | Clinical Summary ---
Author Organization [facility] Address [address] [place] [address] Phone Care Team Providers Care Pressurised Container Filler Name Role Phone Dk Rodriguez MD Primary Care Provider [phone]- [phone] Allergies No known active allergies Medications No known medications Encounters Date Type Department Care Team Description 05/23/2025 10:35 PM EST - 05/24/2025 3:39 AM EST [facility] Emergency [address] [place] [phone] Discharge Disposition: Home or Self Care 04/10/2025 8:45 PM EST - 04/10/2025 10:25 PM EST Emergency [facility] Emergency [address] [place] [phone] Discharge Disposition: Home or Self Care 03/30/2025 9:37 PM EDT - 03/30/2025 11:09 PM EDT Emergency [facility] Emergency [address] [place] [phone] Discharge Disposition: Left Against Medical Advice 03/06/2025 9:24 PM EDT - 03/06/2025 9:57 PM EDT [facility] Emergency [address] [place] [phone] Discharge Disposition: Home or Self Care from Last 3 Months Medical History Medical History Date Comments Bipolar 1 disorder (CMS/HCC V24, CMS/HCC V28) Mood disorder ([facility] V24) Hyperactivity of bladder Social History Tobacco [...] Insurance MEDICARE MEDICAID - [place] Care Teams Pressurised Container Filler Relationship Specialty Start Date End Date Dk Rodriguez MD [address] [place] [address] [address] COY Lucero PCP - General Internal Medicine 07/16/24
--- OUTSIDE RECORDS SUMMARY | 2025-06-01 12:08 | XMS_ITS | Encounter Summary ---
Author Organization [facility] Address [address] [place] [address] Care Team Providers Care Parking Enforcer Name Role Phone Ref, Hasnopcp Primary Care Provider Unavailabl e Encounter Details Date Type Department Care Team (Late st Contact Info) Description 01/04/2024 Community Orders [facility] EpicCare Link [address] [place] [address] Bethany Lozano, DAIRY FARM SUPERVISOR [address] [place] [address] Social History Tobacco Use Types Packs/Day Years [...] on filedocumented in this encounter Care Teams Parking Enforcer Relationship Specialty Start Date End Date Ref, Cadence DO NOT EDIT THIS RECORD VIA PROVIDER ON THE FLY PCP - General Adult Nurse Practitioner 12/30/23 documented as of this encounter
[2025-06-01 14:43] VITALS: BP 139/66; PULSE 76; RESP 20; TEMP 36.4; O2SAT 97
== END 2025-06-01 14:44 | disposition home or self-care (01) ==
PROVIDERS: Emergency Provider Emergency Medicine
DX: R45.7 State of emotional shock and stress, unspecified (principal); F41.9 Anxiety disorder, unspecified; E78.00 Pure hypercholesterolemia, unspecified; F31.9 Bipolar disorder, unspecified; K21.9 Gastro-esophageal reflux disease without esophagitis; F17.200 Nicotine dependence, unspecified, uncomplicated; Z71.6 Tobacco abuse counseling
CPT/HCPCS: 99283

== ENCOUNTER 2025-06-02 18:16 | Emergency (ER) | payer MEDICARE, MEDICAID, SELFPAY ==
[2025-06-02 18:32] VITALS: BP 111/70; PULSE 83; RESP 18; TEMP 36.3; O2SAT 97; BMI 21.4
--- NOTE | 2025-06-02 18:36 | ED_ITS ---
HPI - General Adult General Chief complaint: Abdominal Pain Stated complaint: CRISIS Time Seen by Provider: 06/02/25 19:03 Source: patient, RN notes reviewed and old records reviewed Mode of arrival: ambulatory Limitations: no limitations History of Present Illness ED Provider: Skip MCKAY narrative: 59-year-old male with a past medical history significant for BPH and neurogenic bladder who self catheterizes presents for evaluation of multiple complaints. The patient states that his primary concern is those people at that house do not listen to me. He had referring to his care home and does not feel that the staff address this is needs. The patient reports he is having back pain and lower abdominal pain. He has been evaluated this facility numerous times for this in the last month. The patient feels that his bladder is ?filling up. I explained to the patient that due to his BPH, he will continue to need to catheterize unless he follows up with Urology to adjust the concerned. The patient denies any depression or suicidal ideation Related Data Home Medications ?Medication ?Instructions ?Recorded ?Confirmed aripiprazole 30 mg tablet 30 mg PO DAILY 01/31/2504/05 lorazepam 1 mg tablet 1 mg PO DAILY PRN Anxiety 04/14/25 quetiapine 100 mg tablet 100 mg PO BEDTIME 01/31/25 1 06/14/24 quetiapine 50 mg tablet 50 mg PO BID 01/31/25 olanzapine 10 mg tablet 10 mg PO TID 02/03/25 Previous Rx's ?Medication ?Instructions ?Recorded atorvastatin 20 mg tablet 20 mg PO QPM 90 days #90 tab s 01/10/25 tamsulosin 0.4 mg capsule 0.4 mg PO QAM 90 days #90 ca ps 01/10/25 cefuroxime axetil 500 mg tablet 500 mg PO BID 7 days # 14 tabs 03/10/25 ondansetron 4 mg disintegrating 4 mg PO Q6H PRN nausea and 05/01/25 tablet vomiting #10 tabs cefuroxime axetil 250 mg tablet 250 mg PO BID #14 tabs 05/16/25 magnesium citrate 150 ml PO BID PRN constipati on 05/28/25 #296 mL polyethylene glycol 3350 17 17 g PO DAILY PRN constipa tion 2 05/28/25 gram/dose oral powder (Miralax) weeks #238 grams Allergies Allergy/AdvReac Type Severity Reaction Status Date / Time No Known Allergies (NO KNOWN Allergy Unknown UNKNOWN Verified 06/02/25 18:35 ALLERGIES) Review of Systems Constitutional: Constitutional: Reports as per HPI, Denies chills, Denies fatigue, Denies fever(s) and Denies headache(s) ENT: Denies headache(s) Cardiovascular: Cardiovascular: Denies chest pain and Denies dyspnea Respiratory: Respiratory: Denies cough and Denies dyspnea Gastrointestinal: Gastrointestinal: Denies constipation and Denies vomiting Genitourinary: Genitourinary: Denies difficulty urinating and Denies dysuria Neurologic: Denies headache(s) and Denies focal weakness Endocrine: Endocrine: Denies fatigue PMF Past Medical History Medical History Acute anxiety Smoker GERD without esophagitis Tubular adenoma of colon (~2018) Personal history of nicotine dependence Constipation Back pain Schizoaffective disorder, bipolar type Anxiety Benign prostatic hyperplasia with lower urinary tract symptoms Pure hypercholesterolemia Thought disorder Bipolar 1 disorder Mood disorder Surgical History History of colonoscopy (~04/2019) History of prostate surgery (~04/2019) History of open reduction and internal fixation (ORIF) procedure (~08/2018) Family History Family History Father Lung cancer BPH (benign prostatic hyperplasia) Mother Dementia Brother Myocardial infarction Other Mental health problem Substance abuse Social History Social History Household Members: Other Housing: Other Housing Other:: Correction Do you presently have visiting nurse or other home services: No Alcohol intake: never Patient Tobacco Use Status: Current everyday Tobacco user Tobacco use type: Cigarette Cigarette Packs Per Day: 0.5 Cigarettes Per Day: 10.0 Years Smoked: 10 e-Cigarette/Vaping Use: Never Used Second Hand Smoke Exposure: Yes Advance Directives: No Advance Directives Information Provided: No Do you have a plan to hurt others: No Plan service: No Current occupational status: employed and disabled Current occupation: [employer] Sexual orientation: Straight/Heterosexual Cognitive needs: No Hearing needs: No Vision needs: Yes Physical Exam ED Vital Signs: Vital Signs - 24 hr 06/02/25 18:32 06/02/25 19:21 Temperature 97.4 F 97.4 F Pulse Rate 83 83 Respiratory Rate 18 18 Blood Pressure 111/70 111/70 Pulse Oximetry 97 97 Oxygen Delivery Method Room Air Room Air BMI result Body Mass Index 21.4 Const General: healthy appearing, comfortable, no acute distress, alert and awake Nutritional Appearance: well nourished Orientation/consciousness: patient oriented x3 HENMT Head: Yes normocephalic and Yes atraumatic Throat: Yes posterior oropharynx normal Eyes Eyelids: Yes eyelids normal Conjunctivae: conjunctivae normal Sclerae: sclerae normal Corneas: corneas normal Pupils: Equal, round and reactive pupils present EOM: EOMs intact bilaterally Neck Neck: Yes full ROM Resp Effort & Inspection: normal respiratory effort, able to speak in complete sentences, no audible wheezes and not labored Auscultation: clear to auscultation bilaterally Cardio Rate: regular rate Rhythm: regular rhythm GI Inspection: No distended Palpation (GI): Soft to palpation, not firm, nontender, no guarding and not rigid Auscultation: normoactive bowel sounds Skin General skin exam: no rashes or lesions noted and elasticity normal Neuro General: patient oriented x3 Cranial nerves: Yes CN's II-XII intact bilaterally, Yes Equal, round and reactive pupils present and Yes Bilaterally intact EOM present Cognition (Neuro): normal cognition Extrem Other: Moving all extremities well without any obvious deformities Course Course Course Narrative: Rapid medical examination performed in triage by Fozia Jordan PA-C: Patient is a 59 year old male presenting to the emergency department with lower abdominal pain. Detailed physical exam and review of systems are deferred to the saas architect. Patient placed in a PIT chair. Medical Decision Making Medical Decision Making MDM Narrative: 59-year-old male presents for evaluation abdominal pain and back pain. The pat edwina is frustrated with his care home in his well known to this emergency department for similar presentations. I discussed the importance of following up with Urology to to his BPH in urinary retention with the need for self catheterizing. He is afebrile. I offered to give the patient a catheter so that he can self catheterize. The patient reports that he has catheter was at home when he does not want this done. He is requesting discharge at this time. He appears quite well, alert and oriented. He will be discharged at his request. There was no concern of depression or suicidal ideation Differential Diagnosis Differential Diagnoses: The differential diagnosis associated with the presentation includes BPH Neurogenic bladder Urinary retention Back pain Abdominal pain Mood disorder Discharge Plan Discharge Clinical Impression: Abdominal pain Patient Disposition: Home, Self-Care Instructions: Abdominal Pain (ED) Additional Instructions: You were seen in the Emergency Department today. ?We understand that you have long standing concerns with your care home. Given the intermediate designer issues you deal with we advise when you are struggling with these events and feelings that you reach out to your therapist, your counselors, and your [facility] worker. You can always call [facility] Crisis [phone]. Please follow up with your outpatient providers. Please utilize your resources in the community for your longstanding issues and utilize the emergency department for emergent medical and psychiatric needs. Prescriptions: No Action quetiapine 100 mg tablet 100 mg PO BEDTIME lorazepam 1 mg tablet 1 mg PO DAILY PRN (Reason: Anxiety) aripiprazole 30 mg tablet 30 mg PO DAILY quetiapine 50 mg tablet 50 mg PO BID olanzapine 10 mg tablet 10 mg PO TID ondansetron 4 mg tablet,disintegrating 4 mg PO Q6H PRN (Reason: nausea and vomiting) Qty: 10 0RF cefuroxime axetil 250 mg tablet 250 mg PO BID Qty: 14 0RF polyethylene glycol 3350 [Miralax] 17 gram/dose powder 17 g PO DAILY PRN (Reason: constipation) 14 Days Qty: 238 0RF magnesium citrate Solution 150 ml PO BID PRN (Reason: constipation) Qty: 296 0RF cefuroxime axetil 500 mg tablet 500 mg PO BID 7 Days Qty: 14 0RF tamsulosin 0.4 mg capsule 0.4 mg PO QAM 90 Days Qty: 90 0RF atorvastatin 20 mg tablet 20 mg PO QPM 90 Days Qty: 90 3RF Interventions: ED Discharge Assessment Last Done: 06/02/25 19:21 Discharge Date/Time: 06/02/25 19:23 Print Language: Amharic
--- OUTSIDE RECORDS SUMMARY | 2025-06-02 18:50 | XMS_ITS | Clinical Summary ---
Author Organization [facility] Address [address] [place] [address] Care Team Providers Care Supervisor Core Drilling Name Role Phone Ref, Hasnopcp Primary Care [...] (01/03/2024 2:32 PM EDT): Presents from [facility] in the setting of urinary retention [...] Plan (01/03/2024 10:49 AM EDT): Presented from [facility] with hyponatremia (initially 123). Also [...] (01/02/2024 11:43 AM EDT): Presents from [facility] in the setting of urinary retention [...] Seroquel 25 mg twice daily Presents from [facility] forensic unit with documented history of schizophrenia. 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 Continue home aripiprazole 20mg daily Continue home carbamazepine 500 mg twice daily Continue home Zyprexa 15 mg nightly Continue home Seroquel 25 mg twice daily Consider psychiatry consult if concern that antipsychotic medications are causing SIADH Patient presents from [facility], requires constant observation BPH (benign prostatic hyperplasia) 12/30/2023 Assessment & Plan (01/03/2024 2:33 PM EDT): Paperwork from [facility] indicates history of BPH with prior need for intermittent catheterization requiring urology evaluation in the past, records not available in our system). Per documentation from [facility] patient has seen urology at [facility] in [place]. He was started on Flomax outpatient. In [...] (01/02/2024 11:43 AM EDT): Paperwork from the [facility] indicates history of BPH with prior need for intermittent catheterization requiring urology evaluation in the past, records not available in our system). Per documentation from [facility] patient has seen urology at [facility] in [place]. He was started on Flomax outpatient. In [...] history exists Tobacco Screening 06/05/2042 01/29/2024 [place] [id number] MEDICARE [facility] Advance Directives * Full Code (Latest Code Status on File) Date Activated Date Inactivated Comments 12/30/2023 7:22 PM 01/03/2024 8:48 PM * Presumed Full Code Date Activated Date Inactivated Comments 12/30/2023 7:00 PM 12/30/2023 7:22 PM Care Teams Supervisor Core Drilling Relationship Specialty Start Date End Date Ref, Cadence DO NOT EDIT THIS RECORD VIA PROVIDER ON THE FLY PCP - General Hazmat Truck Driver 12/30/23
--- OUTSIDE RECORDS SUMMARY | 2025-06-02 18:50 | XMS_ITS | Clinical Summary ---
Author Organization [facility] Address [address] [place] [address] Phone Care Team Providers Care Certified Nutritionist Name Role Phone Dk Rodriguez MD Primary Care Provider +1- [phone] Allergies No known active allergies Medications No known medications Encounters Date Type Department Care Team Description 05/23/2025 10:35 PM EST - 05/24/2025 3:39 AM EST [facility] Emergency [address] [place] [phone] Discharge Disposition: Home or Self Care 04/10/2025 8:45 PM EST - 04/10/2025 10:25 PM EST Emergency [facility] Emergency [address] [place] [phone] Discharge Disposition: Home or Self Care 03/30/2025 9:37 PM EDT - 03/30/2025 11:09 PM EDT Emergency [facility] Emergency [address] [place] [phone] Discharge Disposition: Left Against Medical Advice 03/06/2025 9:24 PM EDT - 03/06/2025 9:57 PM EDT [facility] Emergency [address] [place] [phone] Discharge Disposition: Home or Self Care from Last 3 Months Medical History Medical History Date Comments Bipolar 1 disorder (CMS/HCC V24, CMS/HCC V28) Mood disorder ([facility] V24) Hyperactivity of bladder Social History Tobacco [...] MEDICARE MEDICAID - [place] Care Teams Certified Nutritionist Relationship Specialty Start Date End Date Dk Rodriguez MD [address] [place] [address] [address] COY Lucero PCP - General Internal Medicine 07/16/24
--- OUTSIDE RECORDS SUMMARY | 2025-06-02 18:50 | XMS_ITS | Encounter Summary ---
Author Organization [facility] Address [address] [place] [address] Care Team Providers Care Ceiling Installer Name Role Phone Ref, Hasnopcp Primary Care Provider Unavailabl e Encounter Details Date Type Department Care Team (Late st Contact Info) Description 01/04/2024 Community Orders [facility] EpicCare Link [address] [place] [address] Bethany Lozano, PRACTICAL NURSE CLINICAL COORDINATOR [address] [place] [address] Social History Tobacco Use Types Packs/Day Years [...] on filedocumented in this encounter Care Teams Ceiling Installer Relationship Specialty Start Date End Date Ref, Cadence DO NOT EDIT THIS RECORD VIA PROVIDER ON THE FLY PCP - General Bank Accountant 12/30/23 documented as of this encounter
[2025-06-02 19:21] VITALS: BP 111/70; PULSE 83; RESP 18; TEMP 36.3; O2SAT 97
== END 2025-06-02 19:23 | disposition home or self-care (01) ==
PROVIDERS: Emergency Provider Emergency Medicine
DX: M54.50 Low back pain, unspecified (principal); R10.23 Pelvic and perineal pain bilateral; F17.210 Nicotine dependence, cigarettes, uncomplicated
CPT/HCPCS: 99282